=== PATIENT | male | born 1960 | race Caucasian/White ===

== ENCOUNTER 2021-07-06 06:29 | Emergency (ER) | payer MEDICAID, SELFPAY ==
[2021-07-06] VITALS (11 sets, daily range): BP systolic 104–128; BP diastolic 56–70; PULSE 70–80; RESP 12–19; TEMP 36.8; O2SAT 95–98; BMI 38.0
--- NOTE | ~2021-07-06 | XR_ITS ---
EXAMINATION: XR HIP, LEFT CLINICAL INFORMATION: Left hip pain COMPARISON: X-rays earlier the same day TECHNIQUE: Crosstable lateral view of the left hip FINDINGS: Crosstable lateral view of the left hip demonstrates posterior subluxation/dislocation of the left femoral component with respect to the acetabular cup. The right hip arthroplasty appears in anatomic alignment. XR/XR hip LT 1V IMPRESSION: Posterior subluxation/dislocation of the femoral head component of the left hip arthroplasty with respect to the left acetabular cup.
--- NOTE | ~2021-07-06 | CT_ITS ---
EXAMINATION: CT HEAD WITHOUT CONTRAST CLINICAL INFORMATION: Fall. COMPARISON: None TECHNIQUE: Contiguous axial imaging was performed from the skull base to vertex without intravenous administration of contrast. This CT examination was performed using dose optimization techniques as appropriate, variously including the following: *Automated exposure control *Adjustment of mA and/or kV according to patient size (this includes techniques or standardized protocols for targeted exams where dose is matched to indication/reason for exam; i.e. extremities or head) *Use of iterative reconstruction technique DLP: 771 mGy-cm FINDINGS: There is no evidence of acute intracranial hemorrhage or territorial infarction. No abnormal mass effect or midline shift is seen. Ricketts to white matter differentiation is well preserved. No extra-axial fluid collections are identified. The ventricles are normal in size. There is no abnormal attenuation within the brain parenchyma. The osseous structures and soft tissues are normal. Partial soft tissue ossification of the right mastoid air cells. Mastoid air cells, middle ears and visualized paranasal sinuses are otherwise clear. CT/CT head/brain wo con IMPRESSION: No acute findings. Partial soft tissue opacification of the right mastoid air cells.
--- NOTE | ~2021-07-06 | XR_ITS ---
EXAMINATION: XR HIP, LEFT CLINICAL INFORMATION: Status post reduction COMPARISON: Radiographs earlier the same day TECHNIQUE: Portable AP view of the left hip. XR/XR hip LT min 2V FINDINGS/IMPRESSION: The femoral head component of the left total hip arthroplasty is now centered within the left acetabular cup.
--- NOTE | ~2021-07-06 | XR_ITS ---
EXAMINATION: XR HIP, LEFT CLINICAL INFORMATION: Fall, evaluate for dislocation COMPARISON: None TECHNIQUE: AP view of the pelvis with AP and lateral views of the left hip. FINDINGS: Bilateral total hip arthroplasties are present. The right hip arthroplasty is normal in appearance with the femoral head centrally positioned within the acetabular cup. There is an abnormal position of the left femoral component with respect to the left acetabular cup suggesting subluxation if not dislocation. No true lateral view was obtained with the lateral view being only slightly oblique relative to the AP view of the left hip. There is evidence of prior posterior decompression of the lower lumbar spine with posterior fusion L4-S1 with posterolateral bone graft material. XR/XR hip LT min 2V IMPRESSION: Abnormal position of the head of the left femoral component of the left total hip arthroplasty suggesting at least subluxation if not dislocation. No true lateral view was obtained.
--- NOTE | 2021-07-06 06:38 | ED.FALL ---
HPI - Fall General Chief Complaint: Extremity Injury, Lower Stated Complaint: fall w/ left hip injury, hx of surgery to same hip Time Seen by Provider: 07/06/21 06:38 Source: patient and EMS Mode of arrival: EMS Limitations: no limitations History of Present Illness MD complaint: fall Onset (ago): minute(s) Fall from: out of bed (rolled trying to get his dog) Fall witnessed: no Place fall occurred: home Loss of consciousness: none Prolonged down time: no Symptoms prior to fall: none Context: tripped/slipped Location of injury: pelvis (left hip) Severity: moderate Quality: stabbing Associated symptoms (after fall): other (states he cannot move his left leg) Related Data Previous Rx's Medication Instructions Recorded oxycodone 10 mg tablet 10 mg PO Q4H PRN #10 tab 07/06/21 oxycodone 20 mg tablet,crush 20 mg PO BID PRN #6 tab 07/06/21 resistant,extended release 12 hr zolpidem 10 mg tablet (Ambien) 10 mg PO BEDTIME PRN #5 tab 07/06/21 Allergies Allergy/AdvReac Type Severity Reaction Status Date / Time acetaminophen [From Tylenol] Allergy Intermediate Rash Verified 07/06/21 06:43 morphine AdvReac Intermediate Hallucinati Verified 07/06/21 06:43 ons Review of Systems Review of Systems: Constitutional : No Fever, No Chills ENT/Mouth : No Ear Pain, No Hoarseness, No sore throat Eyes: No Eye Pain, No Swelling, No Redness, No Foreign Body Cardiovascular : No Chest Pain, No SOB Respiratory : No Cough, No Dyspnea Gastrointestinal : No Nausea, No Vomiting, No Diarrhea, No abdominal Pain Genitourinary : No Dysuria, No Hematuria Musculoskeletal : positive joint pain, No Myalgias, No Joint Swelling Skin : No Skin lacerations, No rash Neuro : No Weakness, No Numbness, No Loss of Consciousness, No Dizziness, No Headache Psych : No Anxiety/Panic, No Depression Heme/Lymph: no easy bruising, no Lymphadenopathy Endocrine : No Polyuria, No Polydipsia All other systems reviewed and are negative [facility] Past Medical History Attestation statement: The following information was validated with the patient. Medical History Asthma Diabetes FHx: bilateral hip replacements Hypertension Surgical History S/P quadruple vessel bypass Social History Social History (Updated 07/06/21 @ 06:45 by Geena Barnes DO) Alcohol intake: never Patient Tobacco Use Status: Former Tobacco user Use of substances other than those prescribed or required for medical reasons: No Advance Directives: Yes Advance Directives Information Provided: Yes Advance Directives on File: No Physical Exam Vital Signs: Vital Signs: Last Vital Signs Temp 98.2 F 07/06/21 06:36 Pulse 73 07/06/21 16:08 Resp 16 07/06/21 16:08 BP 106/56 L 07/06/21 16:08 Pulse Ox 98 07/06/21 16:08 Oxygen Flow Rate 3 07/06/21 09:08 Body Mass Index 38.0 Appearance: Alert. Oriented X3. No acute distress. Eyes: Pupils equal, round and reactive to light. ENT: Pharynx normal. Neck: Normal inspection. Neck supple. CVS: Normal heart rate and rhythm. Pulses normal. Respiratory: No respiratory distress. Breath sounds normal. Abdomen: Soft and non-tender. Skin: Skin warm and dry. Normal skin color. Normal skin turgor. Extremities: No lower extremity edema. L hip ttp hip is held in flexed position - distal NV intact Neuro: Oriented X 3. No motor deficit. No sensory deficit. Course Course Course Narrative: patient with dislocation seen on AP view - will need reduction, plan for propofol spouse aware and has signed consent forms. going to [facility], orthopedics just recommends follow up with his surgeon and posterior dislocation precautions - a form was printed out for SNF Procedures Orthopedic Joint Reduction Joint #1: Time Out Performed: Yes Side: left Joint Reduction Location: hip Analgesia: procedural sedation Technique used: other (knee flexion and traction) Post-reduction neuro exam: intact Post-reduction vascular: intact Post Reduction X-Ray Obtained: Yes Post Reduction X-Ray Results: reduced Splint Applied: Yes Patient Tolerated Procedure: well and no complications Orthopedic Splinting/Casting Injury #1: Side: left Lower Extremity Injury Location: lower leg Lower Extremity Immobilizer: knee immobilizer Procedural Sedation Indication: fracture/dislocation reduction ASA Class: III Time of Last PO Intake: 20:00 Preparation: monitor car operator applied, pulse oximeter, capnometry used, supplemental O2 applied, suction/airway equipment at bedside and IV secured IV Propofol dose (mg): 100 Patient Tolerated Procedure: well Complications: hypotension (slight given IVF - ) Interventions: oxygen applied MDM - Fall MDM Narrative Medical decision making narrative: 60 yo male with multiple medical problems including DM, asthma, chronic pain, bilateral THR, on coumadin for ?afib comes in with slip out of bed did hit head but no LOC, L hip pain - distal NV intact will need labs CT Head for ICH, L hip xrays, dilaudid for pain, given EMS prehospital 100mcg fentanyl Lab Data Result diagrams: 07/06/21 06:49 07/06/21 06:48 Labs: Lab Results 07/06/21 07/06/21 07/06/21 Range/Units 06:48 06:48 06:48 WBC (4.8-10.8) X10*3/uL RBC (4.60-5.80) X10*6/uL Hgb (14.0-18.0) g/dl Hct (42-52) % MCV (80-98) fL MCH (27.0-33.0) pg MCHC (31.0-36.0) g/dl RDW (11.0-16.0) % Plt Count (160-400) X10*3/uL MPV (9.4-12.4) fL Immature Gran % (Auto) (0.0-0.4) % Neut % (Auto) (45-73) % Lymph % (Auto) (20-40) % Burnet % (Auto) (2-11) % Eos % (Auto) (0-4) % Baso % (Auto) (0-2) % Lymph # (Auto) (1.2-4.9) X10*3/uL Burnet # (Auto) (0.1-1.2) X10*3/uL Eos # (Auto) (0.0-0.4) X10*3/uL Baso # (Auto) (0.0-0.2) X10*3/uL Abs Immat Gran (auto) (0.00-0.03) X10*3/uL Absolute Neuts (auto) (2.0-8.3) X10*3/uL Absolute Nucleated RBC (0.0-0.012) X10*3/uL Nucleated RBC % (auto) (0.0-0.2) /100WBC PT 22.5 H (9.9-13.0) SEC INR 2.0 H (0.9-1.1) APTT 50.4 H (24.1-38.0) SEC Sodium 136 (135-145) mmol/L Potassium 4.1 (3.3-5.1) mmol/L Chloride 107 (96-108) mmol/L Carbon Dioxide 22 (22-29) mmol/L Anion Gap 11 L (12-20) BUN 9 (9-16) mg/dL Creatinine 0.87 (0.5-1.4) mg/dL Estim Creat Clear Calc 110.4 Estimated GFR > 60 Random Glucose 326 H (60-115) mg/dL Calcium 9.5 (8.4-10.2) mg/dL Total Bilirubin 0.5 (0.0-1.0) mg/dL Direct Bilirubin < 0.2 (0.0-0.5) mg/dL AST 12 (5-37) U/L ALT 16 (0-40) U/L Alkaline Phosphatase 100 (39-117) U/L Total Protein 6.2 L (6.5-8.0) g/dL Albumin 3.9 (3.5-5.0) g/dL COVID-19 ([facility]) Negative (Negative) COVID-19 Clin Com See Note Blood Type Antibody Screen 07/06/21 07/06/21 Range/Units 06:49 06:53 WBC 8.5 (4.8-10.8) X10*3/uL RBC 4.44 L (4.60-5.80) X10*6/uL Hgb 13.0 L (14.0-18.0) g/dl Hct 37.7 L (42-52) % MCV 84.9 (80-98) fL MCH 29.3 (27.0-33.0) pg MCHC 34.5 (31.0-36.0) g/dl RDW 13.0 (11.0-16.0) % Plt Count 237 (160-400) X10*3/uL MPV 10.1 (9.4-12.4) fL Immature Gran % (Auto) 0.4 (0.0-0.4) % Neut % (Auto) 51.0 (45-73) % Lymph % (Auto) 37.4 (20-40) % Burnet % (Auto) 10.0 (2-11) % Eos % (Auto) 0.7 (0-4) % Baso % (Auto) 0.5 (0-2) % Lymph # (Auto) 3.2 (1.2-4.9) X10*3/uL Burnet # (Auto) 0.9 (0.1-1.2) X10*3/uL Eos # (Auto) 0.1 (0.0-0.4) X10*3/uL Baso # (Auto) 0.0 (0.0-0.2) X10*3/uL Abs Immat Gran (auto) 0.03 (0.00-0.03) X10*3/uL Absolute Neuts (auto) 4.3 (2.0-8.3) X10*3/uL Absolute Nucleated RBC 0.000 (0.0-0.012) X10*3/uL Nucleated RBC % (auto) 0.0 (0.0-0.2) /100WBC PT (9.9-13.0) SEC INR (0.9-1.1) APTT (24.1-38.0) SEC Sodium (135-145) mmol/L Potassium (3.3-5.1) mmol/L Chloride (96-108) mmol/L Carbon Dioxide (22-29) mmol/L Anion Gap (12-20) BUN (9-16) mg/dL Creatinine (0.5-1.4) mg/dL Estim Creat Clear Calc Estimated GFR Random Glucose (60-115) mg/dL Calcium (8.4-10.2) mg/dL Total Bilirubin (0.0-1.0) mg/dL Direct Bilirubin (0.0-0.5) mg/dL AST (5-37) U/L ALT (0-40) U/L Alkaline Phosphatase (39-117) U/L Total Protein (6.5-8.0) g/dL Albumin (3.5-5.0) g/dL COVID-19 ([facility]) (Negative) COVID-19 Clin Com Blood Type O Positive Antibody Screen NEGATIVE Discharge Plan Discharge Clinical Impression: Dislocation, hip, posterior Qualifiers: Encounter type: initial encounter Laterality: left Qualified Code(s): S73.015A - Posterior dislocation of left hip, initial encounter Patient Disposition: er [facility] Instructions: Crutch Instructions (ED), Hip Dislocation (ED), Hip Abduction Pillow (DC) Additional Instructions: return to ED for any worsening symptoms or concerns FORM WAS SENT OUT TO GIVE INSTRUCTIONS FOR POSTERIOR DISLOCATION CARE IMMOBILIZER FOR THE NEXT WEEK PLEASE CALL HIS ORTHOPEDIC SURGEON don't bend your hip past 90 degress, don't cross legs, don't twist hip inwards Don't sit on low chairs, beds, or toilets. You may want to use a raised toilet seat for a while. Sit in chairs with arms. Prescriptions: New zolpidem [Ambien] 10 mg tablet 10 mg PO BEDTIME PRN (Reason: sleep) Qty: 5 RF: 0 oxycodone 20 mg tablet,oral only,ext.rel.12 hr 20 mg PO BID PRN (Reason: pain) Qty: 6 RF: 0 oxycodone 10 mg tablet 10 mg PO Q4H PRN (Reason: pain) Qty: 10 RF: 0 Referrals: [facility] [Outside] - 2 days
[2021-07-06] MEDS: HYDROmorphone HCl 1 MG/ML SYRINGE IVPUSH ×2 (06:50→08:18)
[2021-07-06 07:02] LABS: MANUAL DIFF FLAG NO
[2021-07-06 07:05] LABS: Basophils Percent Auto 0.5 % (0-2); Eosinophils Absolute Auto 0.1 X10*3/uL (0.0-0.4); Eosinophils Percent Auto 0.7 % (0-4); Hematocrit 37.7 % (42-52); Imm Gran Abs Auto 0.03 X10*3/uL (0.00-0.03); Imm Gran Pct Auto 0.4 % (0.0-0.4); Lymphocytes Absolute Auto 3.2 X10*3/uL (1.2-4.9); Lymphocytes Percent Auto 37.4 % (20-40); Mean Corpuscular HGB Conc 34.5 g/dl (31.0-36.0); Mean Corpuscular Hemoglobin 29.3 pg (27.0-33.0); Mean Corpuscular Volume 84.9 fL (80-98); Mean Platelet Volume 10.1 fL (9.4-12.4); Monocytes Absolute Auto 0.9 X10*3/uL (0.1-1.2); Neutrophils Absolute Auto 4.3 X10*3/uL (2.0-8.3); Platelet Count 237 X10*3/uL (160-400); Red Blood Count 4.44 X10*6/uL (4.60-5.80); White Blood Count 8.5 X10*3/uL (4.8-10.8)
[2021-07-06 07:15] LABS: Prothrombin Time 22.5 SEC (9.9-13.0)
[2021-07-06 07:17] LABS: Partial Thromboplastin Time 50.4 SEC (24.1-38.0)
[2021-07-06 07:23] LABS: COVID-19 Test Negative (Negative); IDNOW Serial# 9DD0AD1C
[2021-07-06 07:24] LABS: Alanine Aminotransferase 16 U/L (0-40); Albumin Level 3.9 g/dL (3.5-5.0); Alkaline Phosphatase 100 U/L (39-117); Anion Gap 11 (12-20); Aspartate Amino Transferase 12 U/L (5-37); Bilirubin Direct < 0.2 mg/dL (0.0-0.5); Bilirubin Total 0.5 mg/dL (0.0-1.0); Blood Urea Nitrogen 9 mg/dL (9-16); Calcium 9.5 mg/dL (8.4-10.2); Carbon Dioxide 22 mmol/L (22-29); Chloride 107 mmol/L (96-108); Creatinine Clr Calc Pharmacy 110.4; Estimated Glomerular Filt Rate > 60; Glucose Random 326 mg/dL (60-115); Potassium 4.1 mmol/L (3.3-5.1); Sodium 136 mmol/L (135-145); Total Protein 6.2 g/dL (6.5-8.0)
[2021-07-06] MEDS: ondansetron HCL 4 MG/2 ML VIAL IVPUSH (08:14)
[2021-07-06] MEDS: propofoL 200 MG/20 ML VIAL 100 MG IVPUSH (09:15)
--- NOTE | 2021-07-06 09:20 | PC.NURSE ---
With respiratory at the bedside and pt on cardiac and EtCO2 monitoring, pt sedated with a total of 100mg propofol for a left hip reduction. Reduction completed by Dr. Barnes. Pt has a knee immobilizer on and will go to x-ray for repeat imaging.
--- NOTE | 2021-07-06 09:43 | PC.NURSE ---
Pt remains drowsy, but is arousable. MD noted pt to become hypotensive to 88/50 and hung a liter of NS which is infusing now. BP noted to improve
[2021-07-06] MEDS: oxyCODONE HCl ER 10 MG TAB.ER.12H 20 MG PO (10:52)
--- NOTE | 2021-07-06 12:15 | PC.NURSE ---
PT is at the bedside to assist with ambulation
[2021-07-06] MEDS: oxyCODONE HCl Immed Release 15 MG TABLET PO (13:20)
--- NOTE | 2021-07-06 13:53 | MHC.CM.ED ---
Received case management consult from Dr Barnes. Patient came to the ER due to a hip dislocation. Dr Barnes was able to reduce patient's hip. Physical therapy eval completed. Short term rehab is recommended. Met with patient and , Holli in regards to discharge planning. Patient lives with Holli, ambulates with a cane and had no services prior to coming to the hospital. PCP verified. Patient believes he has a HCP at [facility]. Per [facility] medical records, there is no HCP on file there. Patient received Pfizer vaccines on 01/12 and 02/02. Patient has been to [facility] in the past. Patient is not interested in returning there. List of facilities provided from [facility]. Facilities choices: 1)[facility] [place] 2)[facility]. Referrals made via [employer]. Continue to monitor for d/c needs.
--- NOTE | 2021-07-06 14:27 | MHC.CM.ED ---
[facility] [place] and [facility] are not able to offer a bed. Patient's , Holli made aware via telephone at [phone]. Holli requesting referral be broadcasted. Referral broadcasted in [employer]scripts. Continue to monitor for d/c needs.
[2021-07-06] MEDS: oxyCODONE HCl Immed Release 15 MG TABLET 20 MG PO (17:36)
--- NOTE | 2021-07-06 20:42 | PC.NURSE ---
SPOKE W/RICHARD RN @ [facility] [address]. CALLED REQUESTING PTS MED LIST HE WAS ATTEMPTING TO DO MED REC W/PT. I EXPLAINED TO RICHARD I WAS UNABLE TPO PRINT THIS D/T PATIENT ALREADY BEING D/C FROM THE SYSTEM BUT I WOULD GLADLY GIVE THE MED LIST OVER THE PHONE. RICHARD HERNANDEZ STATED THIS WAS UNACCEPTABLE HE NEEDED SOMETHING FAXED. THIS RN CALLED PTS HOME PHARMACY ([facility]) AND SPOKE TO ESL INSTRUCTOR ROSANGELA WHO STATED THE PHARMACIST GB WOULD GLADLY DO MED REC W/HIM OVER THE PHONE. I THEN CALLED BACK AND SPOKE W/RICHARD HERNANDEZ, STATING THE OPTIONS, AND READY TO PROVIDE PHONE NUMBERS, HE THEN STATED IF I DON'T GET A MED LIST FAXED TO ME I AM SENDING THIS PATIENT BACK TO THE ER I EXPLAINED THIS WAS A MISUTLIZATION OF EMS & ER SERVICES WE ARE WILLING AND READY TO PROVIDE THE FACILITY WITH THE VERBAL MED LIST- WHICH COULD BE VERIFIED W/PT WHO WAS COGNITIVELY INTACT, AND ALSO HAD BUCKET OF MEDICATION ON HIS LAP WHEN D/C TO [facility]. I SAID IF THIS WASNT ACCEPTABLE THEN I WOULD LIKE TO SPEAK TO THE DON TO DISCUSS HOW WE COULD RESOLVE THIS SITUATION TO PROVIDE THE PATIENT W/PROPER CARE. RICHARD HERNANDEZ THEN STATED I AM THE FUCKING DON AND ABRUPTLY ENDED THE CALL IN WHAT SOUNDED TO BE SLAMMING THE PHONE DOWN. KRISTI NURSING TRIPLE VALVE TESTER MADE AWARE, AND DISCUSSED Alma Rosa/EDDIE MAC IF THERE WAS A BETTER WAY WE COULD HAVE BEEN MORE HELPFUL TO THE PATIENT AND THE FACILITY. VINCENT/DAVID
== END 2021-07-06 17:58 | disposition skilled nursing facility (03) ==
PROVIDERS: Emergency Provider Emergency Medicine; PCP Internal Medicine
DX: S73.015A Posterior dislocation of left hip, initial encounter (principal); S73.005A Unspecified dislocation of left hip, initial encounter; G89.29 Other chronic pain; M25.552 Pain in left hip; W01.0XXA Fall on same level from slipping, tripping and stumbling without subsequent striking against object, initial encounter; E11.9 Type 2 diabetes mellitus without complications; Y93.9 Activity, unspecified; Y92.9 Unspecified place or not applicable; Y99.9 Unspecified external cause status; Z20.822 Contact with and (suspected) exposure to COVID-19; Z79.01 Long term (current) use of anticoagulants; Z79.899 Other long term (current) drug therapy; Z87.891 Personal history of nicotine dependence
CPT/HCPCS: 27252; 29505; 36415; 70450; 73501; 73502; 80048; 80076; 85025; 85610; 85730; 86850; 86900; 86901; 87635; 96374; 96375; 96376; 97162; 99152; 99285; J1170; J2405

== ENCOUNTER 2021-09-01 17:00 | Emergency (ER) | payer MEDICAID, SELFPAY ==
[2021-09-01 17:07] VITALS: BP 153/45; PULSE 100; RESP 19; TEMP 37.1; O2SAT 100; BMI 41.8
--- NOTE | 2021-09-01 18:31 | ED.SKABFB ---
HPI - Skin/Abscess/Foreign Bdy General Chief complaint: Wound/Laceration Stated complaint: ?Infected Blister on leg Time Seen by Provider: 09/01/21 18:30 Source: patient Mode of arrival: ambulatory Limitations: no limitations History of Present Illness HPI narrative: Patient diabetic noticed small bowel in the right thigh which got worse in last 3 days with surroundings erythema no fever no chills Related Data Previous Rx's Medication Instructions Recorded oxycodone 10 mg tablet 10 mg PO Q4H PRN #10 tab 07/06/21 oxycodone 20 mg tablet,crush 20 mg PO BID PRN #6 tab 07/06/21 resistant,extended release 12 hr zolpidem 10 mg tablet (Ambien) 10 mg PO BEDTIME PRN #5 tab 07/06/21 cephalexin 500 mg capsule 500 mg PO QID 10 Days #40 cap 09/01/21 doxycycline hyclate 100 mg tablet 100 mg PO BID #20 tab 09/01/21 Allergies Allergy/AdvReac Type Severity Reaction Status Date / Time acetaminophen [From Tylenol] Allergy Intermediate Rash Verified 07/06/21 06:43 morphine AdvReac Intermediate Hallucinati Verified 07/06/21 06:43 ons Review of Systems Review of Systems: Yes all other systems are reviewed and are negative COUNT INCLUDES THE [facility] Past Medical History Medical History Asthma Diabetes FHx: bilateral hip replacements Hypertension Surgical History S/P quadruple vessel bypass Social History Social History Alcohol intake: never Patient Tobacco Use Status: Former Tobacco user Advance Directives: No Advance Directives Information Provided: No Physical Exam Vital Signs: Vital Signs: Last Vital Signs Temp 98.8 F 09/01/21 17:07 Pulse 100 09/01/21 17:07 Resp 19 09/01/21 17:07 BP 153/45 H 09/01/21 17:07 Pulse Ox 100 09/01/21 17:07 Body Mass Index 41.8 Appearance: Alert. Oriented X3. No acute distress. ENT: Pharynx normal. Oral Mucosa moist Neck: Normal inspection. Neck supple. CVS: Normal heart rate and rhythm. Pulses normal. Respiratory: No respiratory distress. Equal air entry bilateral, no wheezing/rales/rhonchi Abdomen: Soft and nontender. Bowel sounds are present, no mass palpable, Skin: Skin warm and dry. Normal skin color. Normal skin turgor. Extremities: No lower extremity edema. No calf tenderness Neuro: Oriented X 3. No motor deficit. Extrem: Upper/lower leg/hip images: 1. Cellulitis with small abscess in the middle MDM - Skin/Abscess/Foreign Bdy MDM Narrative Medical decision making narrative: Patient with small abscess right thigh with history of same at same location with surrounding cellulitis with slightly elevated WBC count normal lactic acid level afebrile I and D was done and a small amount serosanguineous fluid removed no pus drained abscess was packed with iodoform gauze patient was given prophylactically 1 g of vancomycin will discharge patient home on doxycycline and Keflex Lab Data Attestation: I reviewed the patient's lab results. Result diagrams: 09/01/21 19:31 09/01/21 19:31 Labs: Lab Results 09/01/21 09/01/21 09/01/21 Range/Units 19:31 19:31 19:31 WBC 11.6 H (4.8-10.8) X10*3/uL RBC 4.26 L (4.60-5.80) X10*6/uL Hgb 12.6 L (14.0-18.0) g/dl Hct 37.1 L (42.0-52.0) % MCV 87.1 (80.0-98.0) fL MCH 29.6 (27.0-33.0) pg MCHC 34.0 (31.0-36.0) g/dl RDW 14.0 (11.0-16.0) % Plt Count 245 (160-400) X10*3/uL MPV 9.7 (9.4-12.4) fL Immature Gran % (Auto) 0.4 (0.0-0.4) % Neut % (Auto) 67.8 (45-73) % Lymph % (Auto) 20.9 (20-40) % Wright % (Auto) 10.0 (2-11) % Eos % (Auto) 0.6 (0-4) % Baso % (Auto) 0.3 (0-2) % Lymph # (Auto) 2.4 (1.2-4.9) X10*3/uL Wright # (Auto) 1.2 (0.1-1.2) X10*3/uL Eos # (Auto) 0.1 (0.0-0.4) X10*3/uL Baso # (Auto) 0.0 (0.0-0.2) X10*3/uL Abs Immat Gran (auto) 0.05 H (0.00-0.03) X10*3/uL Absolute Neuts (auto) 7.9 (2.0-8.3) x10*3/uL Absolute Nucleated RBC 0.000 (0.0-0.012) X10*3/uL Nucleated RBC % (auto) 0.0 (0.0-0.2) /100WBC Sodium 134 L (135-145) mmol/L Potassium 4.0 (3.3-5.1) mmol/L Chloride 102 (96-108) mmol/L Carbon Dioxide 24 (22-29) mmol/L Anion Gap 12 (12-20) BUN 8 L (9-16) mg/dL Creatinine 0.79 (0.5-1.4) mg/dL Estim Creat Clear Calc 127.8 Estimated GFR > 60 Random Glucose 276 H (60-115) mg/dL Lactic Acid 1.3 (0.5-2.0) mmol/L Calcium 8.0 L D (8.4-10.2) mg/dL Procedures Abscess I/D Site: lower extremity Side (if applicable): right Local Anesthetic: lidocaine 2% Amount of anesthesia used (mL): 5 Technique: incised with blade Amount of fluid expressed (mL): 1 Sent for culture/gram staining?: No Irrigation: No Packing used?: iodoform Discharge Plan Discharge Clinical Impression: Abscess Cellulitis Qualifiers: Site of cellulitis: extremity Site of cellulitis of extremity: lower extremity Laterality: right Qualified Code(s): L03.115 - Cellulitis of right lower limb Patient Disposition: Home, Self-Care Instructions: Cellulitis (ED), Abscess Incision and Drainage (DC) Additional Instructions: Local care as advised Packing removal in 2 days Take antibiotic as prescribed Report to the ER if increased redness or swelling or fever Remove packing in 2 days Prescriptions: New cephalexin 500 mg capsule 500 mg PO QID 10 Days Qty: 40 RF: 0 doxycycline hyclate 100 mg tablet 100 mg PO BID Qty: 20 RF: 0 No Action zolpidem [Ambien] 10 mg tablet 10 mg PO BEDTIME PRN (Reason: sleep) Qty: 5 RF: 0 oxycodone 20 mg tablet,oral only,ext.rel.12 hr 20 mg PO BID PRN (Reason: pain) Qty: 6 RF: 0 oxycodone 10 mg tablet 10 mg PO Q4H PRN (Reason: pain) Qty: 10 RF: 0 Interventions: ED Discharge Assessment Last Done: 09/01/21 20:49
[2021-09-01] MEDS: LORazepam 2 MG/ML VIAL 1 MG IVPUSH (19:27)
[2021-09-01] MEDS: Lidocaine HCl 2 % MPF 5 ML VIAL INFILTRATI (19:28)
[2021-09-01] MEDS: Ketorolac Tromethamine 15 MG/ML VIAL 30 MG IVPUSH (19:28)
[2021-09-01] MEDS: vancomycin HCL 1,500 MG in 0.9 % Sodium Chloride 500 ML 333.33 MG IV (19:34)
[2021-09-01 19:36] LABS: MANUAL DIFF FLAG NO
[2021-09-01 19:38] LABS: Basophils Percent Auto 0.3 % (0-2); Eosinophils Absolute Auto 0.1 X10*3/uL (0.0-0.4); Eosinophils Percent Auto 0.6 % (0-4); Hematocrit 37.1 % (42.0-52.0); Hemoglobin 12.6 g/dl (14.0-18.0); Imm Gran Abs Auto 0.05 X10*3/uL (0.00-0.03); Imm Gran Pct Auto 0.4 % (0.0-0.4); Lymphocytes Absolute Auto 2.4 X10*3/uL (1.2-4.9); Lymphocytes Percent Auto 20.9 % (20-40); Mean Corpuscular Hemoglobin 29.6 pg (27.0-33.0); Mean Corpuscular Volume 87.1 fL (80.0-98.0); Mean Platelet Volume 9.7 fL (9.4-12.4); Monocytes Absolute Auto 1.2 X10*3/uL (0.1-1.2); Neutrophils Absolute Auto 7.9 x10*3/uL (2.0-8.3); Neutrophils Percent Auto 67.8 % (45-73); Platelet Count 245 X10*3/uL (160-400); Red Blood Count 4.26 X10*6/uL (4.60-5.80); White Blood Count 11.6 X10*3/uL (4.8-10.8)
[2021-09-01 19:56] LABS: Lactic Acid 1.3 mmol/L (0.5-2.0)
[2021-09-01 20:08] LABS: Anion Gap 12 (12-20); Blood Urea Nitrogen 8 mg/dL (9-16); Carbon Dioxide 24 mmol/L (22-29); Chloride 102 mmol/L (96-108); Creatinine Clr Calc Pharmacy 127.8; Estimated Glomerular Filt Rate > 60; Glucose Random 276 mg/dL (60-115); Sodium 134 mmol/L (135-145)
== END 2021-09-01 20:52 | disposition home or self-care (01) ==
PROVIDERS: Emergency Provider Internal Medicine; PCP Internal Medicine
DX: L03.115 Cellulitis of right lower limb (principal); Z79.899 Other long term (current) drug therapy
CPT/HCPCS: 10060; 36415; 80048; 83605; 85025; 87040; 96365; 96375; 99283; 99284; J1885; J2060; J3370

== ENCOUNTER 2021-11-14 02:28 | Emergency (ER) | payer MEDICAID, SELFPAY ==
[2021-11-14] VITALS (16 sets, daily range): BP systolic 100–211; BP diastolic 48–115; PULSE 16–136; RESP 12–23; TEMP 36.5–36.6; O2SAT 94–100; BMI 41.8
--- NOTE | ~2021-11-14 | XR_ITS ---
EXAMINATION: XR HIP, LEFT CLINICAL INFORMATION: Dislocation. Post reduction. COMPARISON: Previous x-ray from earlier the same day TECHNIQUE: AP and crosstable lateral views of the left hip. FINDINGS: There is normal alignment of the left hip replacement post reduction. No fracture is seen. Soft tissues are unremarkable. XR/XR hip LT min 2V IMPRESSION: Normal alignment of the left hip replacement. No fracture.
--- NOTE | ~2021-11-14 | XR_ITS ---
EXAMINATION: XR HIP, LEFT CLINICAL INFORMATION: Hip pain COMPARISON: 07/06/2021 TECHNIQUE: Two views of the left hip. Frontal view of the pelvis. FINDINGS: There is a total left hip arthroplasty. Posterior dislocation of the femoral head component from the acetabular rim. No periprosthetic lucency or fracture. Right total hip arthroplasty noted in typical positioning and alignment. Posterior spinal fusion hardware noted at the lower lumbar spine. The pelvic rim is intact. Normal bowel gas pattern. XR/XR hip LT w [id number] IMPRESSION: Total left hip arthroplasty with dislocation of the femoral head component posteriorly. Right total hip arthroplasty without evidence of failure.
[2021-11-14 02:40] LABS: Glucose, Whole Blood 360 mg/dL (60-115)
--- NOTE | 2021-11-14 03:24 | ED.LOWEXIN ---
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 Was trying to bend over in the shower, subsequently had excruciating pain to the left hip. Patient had a total hip replacement done in [place] approximately 20 years ago. Patient from home. Pain worsen with movement. Pain is 10/10. Patient denies any head injury. Related Data Previous Rx's Medication Instructions Recorded oxycodone 10 mg tablet 10 mg PO Q4H PRN #10 tab 07/06/21 oxycodone 20 mg tablet,crush 20 mg PO BID PRN #6 tab 07/06/21 resistant,extended release 12 hr zolpidem 10 mg tablet (Ambien) 10 mg PO BEDTIME PRN #5 tab 07/06/21 cephalexin 500 mg capsule 500 mg PO QID 10 Days #40 cap 09/01/21 doxycycline hyclate 100 mg tablet 100 mg PO BID #20 tab 09/01/21 Allergies Allergy/AdvReac Type Severity Reaction Status Date / Time acetaminophen [From Tylenol] Allergy Intermediate Rash Verified 07/06/21 06:43 morphine AdvReac Intermediate Hallucinati Verified 07/06/21 06:43 ons Review of Systems Review of Systems: Positive history of hip replacement Positive history of hip dislocation Positive pain to the hip No bowel urinary incontinence No focal weakness Yes all other systems are reviewed and are negative [facility] Past Medical History Attestation statement: The following information was validated with the patient. Medical History Asthma Diabetes FHx: bilateral hip replacements Hypertension Surgical History S/P quadruple vessel bypass Social History Social History Alcohol intake: never Patient Tobacco Use Status: Former Tobacco user Advance Directives: No Physical Exam Vital Signs: Vital Signs: Last Vital Signs Temp 97.9 F 11/14/21 02:33 Pulse 96 11/14/21 06:30 Resp 20 11/14/21 06:30 BP 165/87 H 11/14/21 06:30 Pulse Ox 98 11/14/21 06:30 BMI result Body Mass Index 41.8 Appearance: Alert. Oriented X3. No acute distress. Eyes: Pupils equal, round and reactive to light. ENT: Pharynx normal. Neck: Normal inspection. Neck supple. No lymph nodes noted. No crepitus CVS: Normal heart rate and rhythm. Pulses normal. Normal S1 and S2 Respiratory: No respiratory distress. Breath sounds normal. No Wheezing. No rales Abdomen: Soft and nontender. No rigidity. No distention. good BS x4 Skin: Skin warm and dry. Normal skin color. Normal skin turgor. Extremities: Left hip flex. Sensation intact. Pulses 2+ at dorsalis pedis. Capillary refill less than 2 seconds. Neuro: Oriented X 3. No motor deficit. No sensory deficit. Moving all extermities. No slurred speech MDM - Extremity Injury (Lower) MDM Narrative Medical decision making narrative: X-ray showed a left hip dislocation. Will give ketamine for conscious sedation and attempt to reduce the dislocation. In stable condition. Attempted reduction using ketamine. Good sedation was achieved. However it was unsuccessful to reduce the hip. Finding discussed with orthopedics. Willing to take patient to the OR for reduction. Will give additional pain medication in the ED in the meantime. Patient is currently in stable condition. Baseline labs ordered patient is on Coumadin INR is 2. Patient denies any head injury. Lab Data Result diagrams: 11/14/21 04:32 11/14/21 04:32 Labs: Lab Results 11/14/21 11/14/21 11/14/21 Range/Units 02:34 04:32 04:32 WBC 14.1 H (4.8-10.8) X10*3/uL RBC 4.83 (4.60-5.80) X10*6/uL Hgb 14.0 (14.0-18.0) g/dl Hct 41.5 L (42.0-52.0) % MCV 85.9 (80.0-98.0) fL MCH 29.0 (27.0-33.0) pg MCHC 33.7 (31.0-36.0) g/dl RDW 12.8 (11.0-16.0) % Plt Count 278 (160-400) X10*3/uL MPV 9.2 L (9.4-12.4) fL Immature Gran % (Auto) 0.9 H (0.0-0.4) % Neut % (Auto) 69.8 (45-73) % Lymph % (Auto) 21.9 (20-40) % [place] % (Auto) 6.1 (2-11) % Eos % (Auto) 0.8 (0-4) % Baso % (Auto) 0.5 (0-2) % Lymph # (Auto) 3.1 (1.2-4.9) X10*3/uL [place] # (Auto) 0.9 (0.1-1.2) X10*3/uL Eos # (Auto) 0.1 (0.0-0.4) X10*3/uL Baso # (Auto) 0.1 (0.0-0.2) X10*3/uL Abs Immat Gran (auto) 0.13 H (0.00-0.03) X10*3/uL Absolute Neuts (auto) 9.8 H (2.0-8.3) x10*3/uL Absolute Nucleated RBC 0.000 (0.0-0.012) X10*3/uL Nucleated RBC % (auto) 0.0 (0.0-0.2) /100WBC PT 23.8 H (9.9-13.0) SEC INR 2.1 H (0.9-1.1) Sodium (135-145) mmol/L Potassium (3.3-5.1) mmol/L Chloride (96-108) mmol/L Carbon Dioxide (22-29) mmol/L Anion Gap (12-20) BUN (9-16) mg/dL Creatinine (0.5-1.4) mg/dL Estim Creat Clear Calc Estimated GFR POC Glucose 360 H* (60-115) mg/dL Random Glucose (60-115) mg/dL Calcium (8.4-10.2) mg/dL 11/14/21 Range/Units 04:32 WBC (4.8-10.8) X10*3/uL RBC (4.60-5.80) X10*6/uL Hgb (14.0-18.0) g/dl Hct (42.0-52.0) % MCV (80.0-98.0) fL MCH (27.0-33.0) pg MCHC (31.0-36.0) g/dl RDW (11.0-16.0) % Plt Count (160-400) X10*3/uL MPV (9.4-12.4) fL Immature Gran % (Auto) (0.0-0.4) % Neut % (Auto) (45-73) % Lymph % (Auto) (20-40) % [place] % (Auto) (2-11) % Eos % (Auto) (0-4) % Baso % (Auto) (0-2) % Lymph # (Auto) (1.2-4.9) X10*3/uL [place] # (Auto) (0.1-1.2) X10*3/uL Eos # (Auto) (0.0-0.4) X10*3/uL Baso # (Auto) (0.0-0.2) X10*3/uL Abs Immat Gran (auto) (0.00-0.03) X10*3/uL Absolute Neuts (auto) (2.0-8.3) x10*3/uL Absolute Nucleated RBC (0.0-0.012) X10*3/uL Nucleated RBC % (auto) (0.0-0.2) /100WBC PT (9.9-13.0) SEC INR (0.9-1.1) Sodium 135 (135-145) mmol/L Potassium 4.4 (3.3-5.1) mmol/L Chloride 101 (96-108) mmol/L Carbon Dioxide 23 (22-29) mmol/L Anion Gap 15 (12-20) BUN 11 (9-16) mg/dL Creatinine 0.91 (0.5-1.4) mg/dL Estim Creat Clear Calc 111.0 Estimated GFR > 60 POC Glucose (60-115) mg/dL Random Glucose 310 H (60-115) mg/dL Calcium 9.4 D (8.4-10.2) mg/dL Discharge Plan Discharge Clinical Impression: Dislocation, hip Patient Disposition: Admitted As Inpatient
[2021-11-14] MEDS: Ketamine HCl 500 MG/5 ML VIAL 498.952 MG IM (03:48)
--- NOTE | 2021-11-14 03:54 | PC.NURSE ---
IM ketamine administered in presence of Dr Odonnell. Dr Odonnell at bedside awaiting pain relief effect from ketamine prior to attempting reduction at bedside. Pt on bedside hospital monitor, marked HTN, otherwise VSS on RA. Pt end tidal 31 at this time.
--- NOTE | 2021-11-14 04:13 | PC.NURSE ---
Ketamine administered in both deltoids. Pt placed on 2L NC when O2 ketamine took effect. Pt's sat dropped to 91%, improved to 95-96% on 2L NC. Dr Odonnell unsuccessful with reduction. During attempt, pt's BP elevated to 245/111, Odonnell aware, states ok. At that time, all other VS stable. At this time, pt's VS with marked improvement, BP 207/111
[2021-11-14 04:36] LABS: MANUAL DIFF FLAG NO
[2021-11-14 04:37] LABS: Basophils Absolute Auto 0.1 X10*3/uL (0.0-0.2); Basophils Percent Auto 0.5 % (0-2); Eosinophils Absolute Auto 0.1 X10*3/uL (0.0-0.4); Eosinophils Percent Auto 0.8 % (0-4); Hematocrit 41.5 % (42.0-52.0); Imm Gran Abs Auto 0.13 X10*3/uL (0.00-0.03); Imm Gran Pct Auto 0.9 % (0.0-0.4); Lymphocytes Absolute Auto 3.1 X10*3/uL (1.2-4.9); Lymphocytes Percent Auto 21.9 % (20-40); Mean Corpuscular HGB Conc 33.7 g/dl (31.0-36.0); Mean Corpuscular Volume 85.9 fL (80.0-98.0); Mean Platelet Volume 9.2 fL (9.4-12.4); Monocytes Absolute Auto 0.9 X10*3/uL (0.1-1.2); Monocytes Percent Auto 6.1 % (2-11); Neutrophils Absolute Auto 9.8 x10*3/uL (2.0-8.3); Neutrophils Percent Auto 69.8 % (45-73); Platelet Count 278 X10*3/uL (160-400); Red Blood Count 4.83 X10*6/uL (4.60-5.80); Red Cell Distribution Width 12.8 % (11.0-16.0); White Blood Count 14.1 X10*3/uL (4.8-10.8)
[2021-11-14 04:52] LABS: INTERNATIONAL NORM RATIO 2.1 (0.9-1.1); Prothrombin Time 23.8 SEC (9.9-13.0)
[2021-11-14 05:03] LABS: Anion Gap 15 (12-20); Blood Urea Nitrogen 11 mg/dL (9-16); Calcium 9.4 mg/dL (8.4-10.2); Carbon Dioxide 23 mmol/L (22-29); Chloride 101 mmol/L (96-108); Estimated Glomerular Filt Rate > 60; Glucose Random 310 mg/dL (60-115); Potassium 4.4 mmol/L (3.3-5.1); Sodium 135 mmol/L (135-145)
--- NOTE | 2021-11-14 05:27 | PC.NURSE ---
Dr Odonnell ordered meds for conscious sedation. This RN to bedside to assess pt's level of orientation in order to provide DC teaching prior to conscious sedation. This RN asks pt how are you? Pt gasps, responds how are you? and returns to sleep. This RN notified Dr Odonnell that d/t pt's mental status at this time, this RN unable to provide DC teaching and thus, pt is unable to have conscious sedation at this time. Dr Odonnell agreeable.
--- NOTE | 2021-11-14 05:58 | PC.NURSE ---
Pt alert and oriented x 4, reports 10/10 L hip pain.
[2021-11-14] MEDS: HYDROmorphone HCl 1 MG/ML SYRINGE IVPUSH ×2 (06:29→07:05)
--- NOTE | 2021-11-14 06:30 | PC.NURSE ---
When preparing for conscious sedation, Ledy AMADOR TT this RN to inquire about when/where pt's hip replacement was performed. Dr Odonnell using this RN's TT to discuss with Ledy the plan for repeated attempt to reduce hip. Per Ledy, no need to try again. Plan for pt to go to OR for reduction. Pt medicated with dilaudid per orders for pain control at this time.
[2021-11-14 07:25] LABS: COVID-19 Test Negative (Negative)
[2021-11-14] MEDS: propofoL 200 MG/20 ML VIAL 150 MG IVPUSH (08:00)
[2021-11-14] MEDS: oxyCODONE HCl Immed Release 5 MG TABLET 10 MG PO (08:00)
[2021-11-14] MEDS: ondansetron HCL 4 MG/2 ML VIAL IVPUSH (09:54)
[2021-11-14] MEDS: 0.9 % Sodium Chloride 1,000 ML 999 ML IVCONT (09:54)
== END 2021-11-14 10:50 | disposition home or self-care (01) ==
PROVIDERS: Emergency Medicine Emergency Medical Services; Emergency Provider Emergency Medicine; PCP Internal Medicine
DX: S73.005A Unspecified dislocation of left hip, initial encounter (principal); M25.552 Pain in left hip; X58.XXXA Exposure to other specified factors, initial encounter; Y93.9 Activity, unspecified; Y92.9 Unspecified place or not applicable; Y99.9 Unspecified external cause status; Z20.822 Contact with and (suspected) exposure to COVID-19; Z79.899 Other long term (current) drug therapy
CPT/HCPCS: 36415; 73502; 80048; 82947; 85025; 85610; 87635; 96361; 96372; 96374; 96375; 99284; 99285; J1170; J2405

== ENCOUNTER 2022-01-03 13:23 | Inpatient (IN) | payer MEDICAID, SELFPAY ==
[2022-01-03] VITALS (8 sets, daily range): BP systolic 118–152; BP diastolic 64–77; PULSE 89–99; RESP 16–18; TEMP 36.7–37.1; O2SAT 94–99; BMI 41.0
--- NOTE | ~2022-01-03 | MR_ITS ---
EXAMINATION: MR LEFT FOOT WITHOUT AND WITH CONTRAST. CLINICAL INFORMATION: Swelling, concern for osteomyelitis COMPARISON: CT 11/05/2021 TECHNIQUE: MRI high-field magnet without and with contrast. 10 mL Gadavist. FINDINGS: There is soft tissue swelling and subcutaneous edema/enhancement of the first toe. Overlying the distal tuft/distal phalanx, is a more loculated T2 bright focus with peripheral enhancement. This measures approximately 2.3 cm in length, 2 x 1.6 cm in short axis. Findings raise concern for an abscess. The first distal phalanx is not otherwise clearly identified, with diffuse abnormal edema, loss of T1 signal. The recent CT scan shows marked destructive changes. Findings are compatible with osteomyelitis. No additional areas of osteomyelitis are identified. There is dorsal soft tissue swelling and subcutaneous edema/cellulitis otherwise diffusely in the foot. Visualized plantar aponeurosis is intact. No appreciable tenosynovitis. Increased T2 signal in the intrinsic muscles of the foot, probably reflecting sequela of denervation changes. MR/MR foot LT wo/w con IMPRESSION: Soft tissue swelling of the first toe with a more organized T2 bright peripherally enhancing focus in the dorsal aspect of the first distal phalanx measuring approximately 2.3 x 2 x 1.6 cm, suspicious for abscess. Redemonstrated destructive changes in the first distal phalanx, with diffuse abnormal signal and nonvisualization of normal T1 signal in the residual bone. Destructive changes are well visualized on the prior CT. Findings highly suspicious for osteomyelitis. In the foot, there is diffuse dorsal soft tissue swelling and subcutaneous edema/cellulitis.
--- NOTE | ~2022-01-03 | CT_ITS ---
EXAMINATION: CT LEFT FOOT CLINICAL INFORMATION: Swelling, redness, evaluate for abscess. COMPARISON: Radiograph of the left ankle done earlier today at 6:30 PM. TECHNIQUE: Contiguous axial imaging of the left foot following the administration of 85 mL of Omnipaque 350. Coronal and sagittal reformats were obtained at the acquisition workstation. This CT examination was performed using dose optimization techniques as appropriate, variously including the following: *Automated exposure control *Adjustment of mA and/or kV according to patient size (this includes techniques or standardized protocols for targeted exams where dose is matched to indication/reason for exam; i.e. extremities or head) *Use of iterative reconstruction technique DLP: 213 mGy-cm FINDINGS: There is extensive soft tissue swelling and reticulation. No subcutaneous air. Overlying the tuft of the first toe, there is a more organized up to 2.6 cm centrally hypodense collection with associated destructive changes of the distal phalanx of the first toe (6:7), suspicious for osteomyelitis. A medial fixation plate along the tibia with multiple traversing screws are noted. There is a vertically oriented partially cannulated screw in the distal fibula. There are additional interlocking screws in the tibiotalar joint. Lucencies surrounding the hardware in the talus, for instance image 89 of series 8 are nonspecific but raises concern for hardware failure. The articular surfaces of the tibiotalar joint are irregular and sclerotic. Similarly, the cortical surface of the distal tibia and fibula are irregular and sclerotic, which is nonspecific and could be associated with postsurgical changes and trauma, although infection is difficult to exclude. Ghost tracks are identified in the calcaneus and talus. Extensive vascular calcifications. CT/CT foot LT w con IMPRESSION: Complex examination. There is extensive soft tissue swelling with a more organized collection overlying the distal phalanx of the first toe with associated destructive changes of the distal phalanx concerning for osteomyelitis. Correlate clinically. There is decreased bony mineralization and extensive orthopedic hardware which limits assessment of fine bony details predominantly in the tibia, fibula and talus which demonstrate somewhat irregularity of their cortex and sclerosis in which infection cannot be excluded. Kathie hardware lucency in the talus raises the possibility of hardware failure or infection.
--- NOTE | ~2022-01-03 | XR_ITS ---
EXAMINATION: XR ANKLE, LEFT CLINICAL INFORMATION: Evaluate hardware COMPARISON: Radiographs of the left ankle 10 8 TECHNIQUE: AP, lateral, and mortise views of the left ankle. FINDINGS: 2 side plates with screws are again demonstrated in the distal tibia. A transversely oriented screw appears to extend to the talus. There is a partially trabeculated screw in the distal fibula. The hardware appears grossly intact. There is some heterogeneity of the distal tibia. There is some indistinctness of the tibiotalar joint, and there may be interval bony fusion. The previously seen fracture line are not well visualized, compatible with healing. No loss of bone mineral density to suggest acute osteomyelitis. There are hypertrophic changes of the tibiotalar joint. There is diffuse soft tissue swelling. There are vascular calcifications. XR/XR ankle LT 2V IMPRESSION: Postsurgical changes of the distal tibia and fibula, with hardware grossly intact. Some indistinctness of the tibiotalar joint, that may represent partial fusion with associated hypertrophic changes. No acute bony abnormality. Diffuse soft tissue swelling.
[2022-01-03 13:45] LABS: MANUAL DIFF FLAG NO
[2022-01-03 13:52] LABS: Basophils Absolute Auto 0.1 X10*3/uL (0.0-0.2); Basophils Percent Auto 0.5 % (0-2); Eosinophils Absolute Auto 0.1 X10*3/uL (0.0-0.4); Eosinophils Percent Auto 0.6 % (0-4); Hematocrit 44.9 % (42.0-52.0); Hemoglobin 13.8 g/dl (14.0-18.0); Imm Gran Abs Auto 0.04 X10*3/uL (0.00-0.03); Imm Gran Pct Auto 0.3 % (0.0-0.4); Lymphocytes Absolute Auto 2.3 X10*3/uL (1.2-4.9); Mean Corpuscular HGB Conc 30.7 g/dl (31.0-36.0); Mean Corpuscular Hemoglobin 28.5 pg (27.0-33.0); Mean Corpuscular Volume 92.8 fL (80.0-98.0); Monocytes Absolute Auto 1.1 X10*3/uL (0.1-1.2); Monocytes Percent Auto 9.5 % (2-11); Neutrophils Absolute Auto 8.4 x10*3/uL (2.0-8.3); Neutrophils Percent Auto 70.1 % (45-73); Platelet Count 248 X10*3/uL (160-400); Red Blood Count 4.84 X10*6/uL (4.60-5.80); Red Cell Distribution Width 12.9 % (11.0-16.0); White Blood Count 11.9 X10*3/uL (4.8-10.8)
[2022-01-03 14:10] LABS: Anion Gap 14 (12-20); Blood Urea Nitrogen 7 mg/dL (9-16); Calcium 8.7 mg/dL (8.4-10.2); Carbon Dioxide 23 mmol/L (22-29); Chloride 99 mmol/L (96-108); Creatinine Clr Calc Pharmacy 126.6; Estimated Glomerular Filt Rate > 60; Glucose Random 334 mg/dL (60-115); Potassium 4.7 mmol/L (3.3-5.1); Sodium 131 mmol/L (135-145)
--- NOTE | 2022-01-03 17:09 | ED.EXTPRO ---
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 Patient reports initially the redness and swelling started in the great toe but then spread down to the foot and leg. He has had chills. No fever, vomiting, weakness, numbness or tingling of the extremity Related Data Home Medications Medication Instructions Recorded Confirmed ezetimibe 10 mg tablet 1 tab PO DAILY 01/03/22 01/03/22 gabapentin 300 mg capsule 1 cap PO TID 01/03/22 01/03/22 hydroxyzine HCl 10 mg tablet 2 tab PO QID PRN 01/03/22 01/03/22 insulin glargine 100 unit/mL 50 unit SUBCUT DAILY@1200 01/03/22 01/03/22 subcutaneous solution (Lantus U-100 Insulin) insulin glargine 100 unit/mL 100 unit SUBCUT BEDTIME 01/03/22 01/03/22 subcutaneous solution (Lantus U-100 Insulin) insulin lispro 100 unit/mL 30 unit SUBCUT TIDAC 01/03/22 01/03/22 subcutaneous solution isosorbide mononitrate 30 mg 1 tab PO QAM 01/03/22 01/03/22 tablet,extended release 24 hr loratadine 10 mg tablet 1 tab PO DAILY 01/03/22 01/03/22 losartan 25 mg tablet 1 tab PO DAILY 01/03/22 01/03/22 meclizine 25 mg tablet 1 tab PO TID PRN 01/03/22 01/03/22 metoprolol tartrate 25 mg tablet 1 tab PO BID 01/03/22 01/03/22 montelukast 10 mg tablet 1 tab PO BEDTIME 01/03/22 01/03/22 ondansetron HCl 4 mg tablet 1 tab PO TID PRN 01/03/22 01/03/22 oxycodone 20 mg tablet,crush 1 tab PO BID 01/03/22 01/03/22 resistant,extended release 12 hr (OxyContin) oxycodone 5 mg tablet 2 tab PO Q4H 01/03/22 01/03/22 pantoprazole 40 mg tablet,delayed 1 tab PO BID@0630,1630 01/03/22 01/03/22 release quetiapine 25 mg tablet 0.5 tab PO BEDTIME 01/03/22 01/03/22 rosuvastatin 40 mg tablet 1 tab PO BEDTIME 01/03/22 01/03/22 thiamine HCl (vitamin B1) 100 mg 1 tab PO DAILY 01/03/22 01/03/22 tablet valacyclovir 1 gram tablet 2 tab PO BID 01/03/22 01/03/22 venlafaxine 100 mg tablet 1 tab PO BID 01/03/22 01/03/22 warfarin 5 mg tablet 2.5 mg PO MOWESA@1800 01/03/22 01/03/22 warfarin 5 mg tablet 5 mg PO DAILY@1800 01/03/22 01/03/22 zolpidem 10 mg tablet 1 tab PO BEDTIME PRN 01/03/22 01/03/22 Allergies Allergy/AdvReac Type Severity Reaction Status Date / Time acetaminophen [From Tylenol] Allergy Intermediate Rash Verified 07/06/21 06:43 morphine AdvReac Intermediate Hallucinati Verified 07/06/21 06:43 ons Review of Systems Review of Systems: Yes all other systems are reviewed and are negative Constitutional: Constitutional: Reports no additional constitutional complaints, Denies body ache(s), Reports chills, Denies fever(s), Denies headache(s) and Denies weakness Eyes: Eyes: Reports no additional eye complaints and Denies change in vision ENT: Reports system reviewed and no additional complaints, except as documented, Denies dizziness, Denies headache(s), Denies nasal congestion, Denies nasal discharge and Denies neck pain Cardiovascular: Cardiovascular: Reports no additional cardiovascular complaints, Denies chest pain, Reports leg edema and Denies dyspnea Respiratory: Respiratory: Reports no additional respiratory complaints, Denies cough and Denies dyspnea Gastrointestinal: Gastrointestinal: Reports no additional gastrointestinal complaints, Denies abdominal pain, Denies diarrhea, Denies nausea and Denies vomiting Genitourinary: Genitourinary: Denies urinary incontinence Musculoskeletal: Musculoskeletal: Reports no additional musculoskeletal complaints, Denies back pain, Denies arthralgias, Denies joint swelling, Denies neck pain, Denies numbness and Denies tingling Integumentary/Breasts: Skin/Breast: Reports system reviewed and no additional complaints, except as docu and Denies rash Neurologic: Reports system reviewed and no additional complaints, except as documented, Denies Abnormal speech present, Denies dizziness, Denies headache(s), Denies numbness, Denies tingling and Denies weakness PMFSH Past Medical History Attestation statement: The following information was validated with the patient. Source: old records reviewed and nursing notes reviewed Medical History Asthma Diabetes FHx: bilateral hip replacements Hypertension Surgical History S/P quadruple vessel bypass Social History Social History Alcohol intake: never Patient Tobacco Use Status: Former Tobacco user Advance Directives: Yes Advance Directives Information Provided: Yes Advance Directives on File: No Physical Exam Vital Signs: Vital Signs: Last Vital Signs Temp 98.0 F 01/03/22 19:14 Pulse 97 01/03/22 20:59 Resp 18 01/03/22 20:59 BP 128/77 01/03/22 20:59 Pulse Ox 98 01/03/22 20:59 BMI result Body Mass Index 41.0 Const: Other: In pain, anxious General: cooperative Orientation/consciousness: patient oriented x3 Limitations: no limitations HENMT: Head: Yes normal to inspection Ears: hearing grossly normal bilaterally General nose exam: Normal external nose present Face and sinus: Yes normal facial exam Mouth: Normal oral and palatal mucosa present Throat: Yes posterior oropharynx normal Eyes: General: appearance normal, both eyes and all related structures Pupils: Equal, round and reactive pupils present Neck: Neck: Yes normal visual inspection Chest: Chest palpation & inspection: normal inspection of the chest Resp: Effort & Inspection: normal respiratory effort Auscultation: clear to auscultation bilaterally Cardio: Rate: regular rate Rhythm: regular rhythm Peripheral pulses: Peripheral pulses 2+ throughout GI: Inspection: Yes normal to inspection Palpation (GI): Soft to palpation and nontender Auscultation: normal bowel sounds Back/Spine/Pelvis: Thoracic/Lumbar Spine: thoracic and lumbar spine normal to inspection Skin: General skin exam: no rashes or lesions noted Neuro: General: patient oriented x3, no focal motor deficits and normal sensation to monofilament Cranial nerves: Yes Equal, round and reactive pupils present Cognition (Neuro): normal cognition Speech: No Abnormal speech present Gait exam (Neuro): Normal gait present Motor exam (neuro): 5/5 motor strength present throughout Extrem: Other: Palpable DP and PT pulses. The compartments are compressible, diffusely tender. Patient is able to flex and extend the foot. Sensation is intact General: Yes normal to inspection Course Course Course Narrative: This is a 61-year-old male here with left lower extremity swelling, redness and pain for 1 week which chills. On exam the patient has a cellulitis of the left lower leg. Low concern for compartment syndrome with soft compressible compartments, and neurovascular intact distally. Low concern for DVT as patient is on Coumadin and has been compliant with a most recent INR of 2.2. Will need labs including blood cultures and lactic acid, x-ray of the left lower leg as he has hardware, CT to eval for underlying abscess. At this time infection is suspected. Antibiotics ordered 2030- CT foot shows Complex examination. ? There is extensive soft tissue swelling with a more organized collection overlying the distal phalanx of the first toe with associated destructive changes of the distal phalanx concerning for osteomyelitis. Correlate clinically. ? There is decreased bony mineralization and extensive orthopedic hardware which limits assessment of fine bony details predominantly in the tibia, fibula and talus which demonstrate somewhat irregularity of their cortex and sclerosis in which infection cannot be excluded. ? Kathie hardware lucency in the talus raises the possibility of hardware failure or infection. -on exam the patient has extensive swelling and tenderness over the left great toe and I do believe that this is the source of the infection. A less likely septic joint/hardware infection with range of motion intact of the ankle. I did discuss the case with orthopedics (Dr Nesbitt) and who was made aware of the patient. Discussed case with Dr. Colin who accepted admission of the patient MDM - Extremity (Nontraumatic) Medical Records Attestation: I reviewed the patient's medical records. Lab Data Attestation: I reviewed the patient's lab results. Result diagrams: 01/03/22 13:39 01/03/22 13:39 Labs: Lab Results 01/03/22 01/03/22 01/03/22 Range/Units 13:39 13:39 13:39 WBC 11.9 H (4.8-10.8) X10*3/uL RBC 4.84 (4.60-5.80) X10*6/uL Hgb 13.8 L (14.0-18.0) g/dl Hct 44.9 (42.0-52.0) % MCV 92.8 (80.0-98.0) fL MCH 28.5 (27.0-33.0) pg MCHC 30.7 L (31.0-36.0) g/dl RDW 12.9 (11.0-16.0) % Plt Count 248 (160-400) X10*3/uL MPV 10.0 (9.4-12.4) fL Immature Gran % (Auto) 0.3 (0.0-0.4) % Neut % (Auto) 70.1 (45-73) % Lymph % (Auto) 19.0 L (20-40) % Nelson % (Auto) 9.5 (2-11) % Eos % (Auto) 0.6 (0-4) % Baso % (Auto) 0.5 (0-2) % Lymph # (Auto) 2.3 (1.2-4.9) X10*3/uL Nelson # (Auto) 1.1 (0.1-1.2) X10*3/uL Eos # (Auto) 0.1 (0.0-0.4) X10*3/uL Baso # (Auto) 0.1 (0.0-0.2) X10*3/uL Abs Immat Gran (auto) 0.04 H (0.00-0.03) X10*3/uL Absolute Neuts (auto) 8.4 H (2.0-8.3) x10*3/uL Absolute Nucleated RBC 0.000 (0.0-0.012) X10*3/uL Nucleated RBC % (auto) 0.0 (0.0-0.2) /100WBC PT (9.9-13.0) SEC INR (0.9-1.1) Sodium 131 L (135-145) mmol/L Potassium 4.7 (3.3-5.1) mmol/L Chloride 99 (96-108) mmol/L Carbon Dioxide 23 (22-29) mmol/L Anion Gap 14 (12-20) BUN 7 L (9-16) mg/dL Creatinine 0.78 (0.5-1.4) mg/dL Estim Creat Clear Calc 126.6 Estimated GFR > 60 POC Glucose (60-115) mg/dL Random Glucose 334 H (60-115) mg/dL Lactic Acid (0.5-2.0) mmol/L Calcium 8.7 D (8.4-10.2) mg/dL Magnesium (1.6-2.6) mg/dL Total Bilirubin (0.0-1.0) mg/dL Direct Bilirubin (0.0-0.5) mg/dL AST (5-37) U/L ALT (0-40) U/L Alkaline Phosphatase (39-117) U/L C-Reactive Protein (< or = 0.50) mg/dL Total Protein (6.5-8.0) g/dL Albumin (3.5-5.0) g/dL COVID-19 ([facility]) Cancelled COVID-19 Clin Com Cancelled 01/03/22 01/03/22 01/03/22 Range/Units 18:00 18:00 18:00 WBC (4.8-10.8) X10*3/uL RBC (4.60-5.80) X10*6/uL Hgb (14.0-18.0) g/dl Hct (42.0-52.0) % MCV (80.0-98.0) fL MCH (27.0-33.0) pg MCHC (31.0-36.0) g/dl RDW (11.0-16.0) % Plt Count (160-400) X10*3/uL MPV (9.4-12.4) fL Immature Gran % (Auto) (0.0-0.4) % Neut % (Auto) (45-73) % Lymph % (Auto) (20-40) % Nelson % (Auto) (2-11) % Eos % (Auto) (0-4) % Baso % (Auto) (0-2) % Lymph # (Auto) (1.2-4.9) X10*3/uL Nelson # (Auto) (0.1-1.2) X10*3/uL Eos # (Auto) (0.0-0.4) X10*3/uL Baso # (Auto) (0.0-0.2) X10*3/uL Abs Immat Gran (auto) (0.00-0.03) X10*3/uL Absolute Neuts (auto) (2.0-8.3) x10*3/uL Absolute Nucleated RBC (0.0-0.012) X10*3/uL Nucleated RBC % (auto) (0.0-0.2) /100WBC PT 35.9 H (9.9-13.0) SEC INR 3.1 H (0.9-1.1) Sodium (135-145) mmol/L Potassium (3.3-5.1) mmol/L Chloride (96-108) mmol/L Carbon Dioxide (22-29) mmol/L Anion Gap (12-20) BUN (9-16) mg/dL Creatinine (0.5-1.4) mg/dL Estim Creat Clear Calc Estimated GFR POC Glucose (60-115) mg/dL Random Glucose (60-115) mg/dL Lactic Acid 1.7 (0.5-2.0) mmol/L Calcium (8.4-10.2) mg/dL Magnesium 2.3 (1.6-2.6) mg/dL Total Bilirubin 0.8 (0.0-1.0) mg/dL Direct Bilirubin 0.3 (0.0-0.5) mg/dL AST 10 (5-37) U/L ALT 7 (0-40) U/L Alkaline Phosphatase 80 (39-117) U/L C-Reactive Protein 16.12 H (< or = 0.50) mg/dL Total Protein 6.8 (6.5-8.0) g/dL Albumin 3.9 (3.5-5.0) g/dL COVID-19 ([facility]) COVID-19 Clin Com 01/03/22 01/03/22 Range/Units 18:00 18:28 WBC (4.8-10.8) X10*3/uL RBC (4.60-5.80) X10*6/uL Hgb (14.0-18.0) g/dl Hct (42.0-52.0) % MCV (80.0-98.0) fL MCH (27.0-33.0) pg MCHC (31.0-36.0) g/dl RDW (11.0-16.0) % Plt Count (160-400) X10*3/uL MPV (9.4-12.4) fL Immature Gran % (Auto) (0.0-0.4) % Neut % (Auto) (45-73) % Lymph % (Auto) (20-40) % Nelson % (Auto) (2-11) % Eos % (Auto) (0-4) % Baso % (Auto) (0-2) % Lymph # (Auto) (1.2-4.9) X10*3/uL Nelson # (Auto) (0.1-1.2) X10*3/uL Eos # (Auto) (0.0-0.4) X10*3/uL Baso # (Auto) (0.0-0.2) X10*3/uL Abs Immat Gran (auto) (0.00-0.03) X10*3/uL Absolute Neuts (auto) (2.0-8.3) x10*3/uL Absolute Nucleated RBC (0.0-0.012) X10*3/uL Nucleated RBC % (auto) (0.0-0.2) /100WBC PT (9.9-13.0) SEC INR (0.9-1.1) Sodium (135-145) mmol/L Potassium (3.3-5.1) mmol/L Chloride (96-108) mmol/L Carbon Dioxide (22-29) mmol/L Anion Gap (12-20) BUN (9-16) mg/dL Creatinine (0.5-1.4) mg/dL Estim Creat Clear Calc Estimated GFR POC Glucose 257 H (60-115) mg/dL Random Glucose (60-115) mg/dL Lactic Acid (0.5-2.0) mmol/L Calcium (8.4-10.2) mg/dL Magnesium (1.6-2.6) mg/dL Total Bilirubin (0.0-1.0) mg/dL Direct Bilirubin (0.0-0.5) mg/dL AST (5-37) U/L ALT (0-40) U/L Alkaline Phosphatase (39-117) U/L C-Reactive Protein (< or = 0.50) mg/dL Total Protein (6.5-8.0) g/dL Albumin (3.5-5.0) g/dL COVID-19 ([facility]) Negative COVID-19 Clin Com See Note Imaging Data ankle xray: Attestation: I personally reviewed and interpreted this imaging study as follows: Radiologist's impression: FINDINGS: 2 side plates with screws are again demonstrated in the distal tibia. A transversely oriented screw appears to extend to the talus. There is a partially trabeculated screw in the distal fibula. The hardware appears grossly intact. There is some heterogeneity of the distal tibia. There is some indistinctness of the tibiotalar joint, and there may be interval bony fusion. The previously seen fracture line are not well visualized, compatible with healing. No loss of bone mineral density to suggest acute osteomyelitis. There are hypertrophic changes of the tibiotalar joint. There is diffuse soft tissue swelling. There are vascular calcifications. XR/XR ankle LT 2V IMPRESSION: Postsurgical changes of the distal tibia and fibula, with hardware grossly intact. ? Some indistinctness of the tibiotalar joint, that may represent partial fusion with associated hypertrophic changes. ? No acute bony abnormality. ? Diffuse soft tissue swelling. CT foot: Attestation: I personally reviewed and interpreted this imaging study as follows: Radiologist's impression: IMPRESSION: ? Complex examination. ? There is extensive soft tissue swelling with a more organized collection overlying the distal phalanx of the first toe with associated destructive changes of the distal phalanx concerning for osteomyelitis. Correlate clinically. ? There is decreased bony mineralization and extensive orthopedic hardware which limits assessment of fine bony details predominantly in the tibia, fibula and talus which demonstrate somewhat irregularity of their cortex and sclerosis in which infection cannot be excluded. ? Kathie hardware lucency in the talus raises the possibility of hardware failure or infection. Discharge Plan Discharge Clinical Impression: Osteomyelitis, Cellulitis, Leukocytosis, Hyperglycemia Patient Disposition: Admitted As Inpatient Prescriptions: No Action quetiapine 25 mg tablet 0.5 tab PO BEDTIME 0RF Lantus U-100 Insulin 100 unit/mL solution 100 unit subcut BEDTIME 0RF Rx Instructions: 50 units at lunch and 100 units at bedtime Lantus U-100 Insulin 100 unit/mL solution 50 unit subcut DAILY@1200 0RF Rx Instructions: 50 units at lunch and 100 units at bedtime valacyclovir 1 gram tablet 2 tab PO BID 0RF Rx Instructions: 1 more tablet left of 2 day course isosorbide mononitrate 30 mg tablet extended release 24 hr 1 tab PO QAM 0RF thiamine HCl (vitamin B1) 100 mg tablet 1 tab PO DAILY 0RF venlafaxine 100 mg tablet 1 tab PO BID 0RF pantoprazole 40 mg tablet,delayed release (DR/EC) 1 tab PO BID@0630,1630 0RF warfarin 5 mg tablet 5 mg PO DAILY@1800 0RF Rx Instructions: 5 mg on all days except 7.5 mg on losartan 25 mg tablet 1 tab PO DAILY 0RF gabapentin 300 mg capsule 1 cap PO TID 0RF montelukast 10 mg tablet 1 tab PO BEDTIME 0RF insulin lispro 100 unit/mL solution 30 unit subcut TIDAC 0RF zolpidem 10 mg tablet 1 tab PO BEDTIME PRN (Reason: insomnia) 0RF hydroxyzine HCl 10 mg tablet 2 tab PO QID PRN (Reason: itch) 0RF loratadine 10 mg tablet 1 tab PO DAILY 0RF oxycodone 5 mg tablet 2 tab PO Q4H 0RF ezetimibe 10 mg tablet 1 tab PO DAILY 0RF rosuvastatin 40 mg tablet 1 tab PO BEDTIME 0RF metoprolol tartrate 25 mg tablet 1 tab PO BID 0RF oxycodone [OxyContin] 20 mg tablet,oral only,ext.rel.12 hr 1 tab PO BID 0RF ondansetron HCl 4 mg tablet 1 tab PO TID PRN (Reason: nausea) 0RF meclizine 25 mg tablet 1 tab PO TID PRN (Reason: dizziness) 0RF warfarin 5 mg tablet 2.5 mg PO MOWESA@1800 0RF Rx Instructions: 5 MG ON ALL DAYS EXCEPT 7.5 MG ON
[2022-01-03] MEDS: LORazepam 2 MG/ML VIAL 1 MG IVPUSH (18:06)
[2022-01-03] MEDS: HYDROmorphone HCl 0.5 MG/0.5 ML SYRINGE IVPUSH (18:06)
[2022-01-03 18:15] LABS: INTERNATIONAL NORM RATIO 3.1 (0.9-1.1); Prothrombin Time 35.9 SEC (9.9-13.0)
[2022-01-03 18:17] LABS: Lactic Acid 1.7 mmol/L (0.5-2.0)
[2022-01-03 18:22] LABS: COVID-19 Test Negative (Negative)
[2022-01-03 18:25] LABS: Alanine Aminotransferase 7 U/L (0-40); Albumin Level 3.9 g/dL (3.5-5.0); Alkaline Phosphatase 80 U/L (39-117); Aspartate Amino Transferase 10 U/L (5-37); Bilirubin Direct 0.3 mg/dL (0.0-0.5); Bilirubin Total 0.8 mg/dL (0.0-1.0); Magnesium 2.3 mg/dL (1.6-2.6); Total Protein 6.8 g/dL (6.5-8.0)
[2022-01-03] MEDS: 0.9 % Sodium Chloride 1,000 ML 999 ML IV (18:30)
[2022-01-03 18:31] LABS: Glucose, Whole Blood 257 mg/dL (60-115)
[2022-01-03] MEDS: iohexoL 350 MG/ML 100 ML INFUS..BTL IV (18:51)
--- NOTE | 2022-01-03 20:05 | PHA.MEDREC ---
Pharmacy Consult ? Medication Reconciliation Pharmacy has completed the medication reconciliation. SPoke with patient in ED. patient last took medications on 01/02/22.
--- NOTE | 2022-01-03 20:14 | PC.NURSE ---
Per Laura HERNANDEZ, cultures were just now obtained. Pt has been a difficult stick.
[2022-01-03] MEDS: HYDROmorphone HCl 1 MG/ML SYRINGE IVPUSH (20:26)
[2022-01-03] MEDS: Piperacillin Sodium/Tazobactam 3.375 GM in 0.9 % Sodium Chloride 50 ML IV (20:28)
[2022-01-03 20:53] LABS: C Reactive Protein 16.12 mg/dL (< or = 0.50)
[2022-01-03] MEDS: vancomycin HCL 1,000 MG, vancomycin HCL 750 MG in 0.9 % Sodium Chloride 500 ML 267.5 MG IV (20:54)
--- NOTE | 2022-01-03 21:00 | PC.NURSE ---
pt left foot big toe deep red, warm, swelling and painful. pt medicated with dilaudid and slow pain relief. called in and verified the warfen dose. fri sat 7.5 mg and 5mg all other days. this information has been relayed onto pharmacy.
--- NOTE | 2022-01-03 23:17 | PM.IMHP ---
History of Present Illness Date of Service: 01/03/22 Chief Complaint: left toe pain this is a 61-year-old male with past medical history of diabetes, asthma, hyperlipidemia, depression, CAD status post CABG on Coumadin per patient,who presents to the hospital with complaints of left toe pain. Patient reports that his symptoms started about 3 4 days ago with significant pain in his left toe, 10/10, radiating slightly of his foot, worsening, associated with chills, no alleviating factors, movement or touching the toe makes the pain significantly worse. Patient denies any chest pain, no shortness of breath, no abdominal pain nausea or vomiting, no diarrhea constipation, no urinary symptoms and no lower extremity edema. no headache or change in vision. on arrival to the ED pt found to be hemodynamically stable labs are significant for WBC count of 11.9, hemoglobin of 13.8, hematocrit of 44.9, ESR 62, INR 3.1, CRP of 16.12, hyperglycemia with a glucose of [address] shows extensive soft tissue swelling with a more organized collection overlying the distal phalanx of the 1st toe with associated destructive changes of the distal phalanx concerning for osteomyelitis patient also has hardware in his left ankle with a CT of the foot showing perihardware lucency in the talus raises the possibility of hardware failure or infection patient started on IV antibiotics and will be admitted for further management Review of Systems Review of Systems: Yes all other systems are reviewed and are negative [facility] Medical History (Updated 01/04/22 @ 06:38 by Jacki Colin MD) Asthma Diabetes FHx: bilateral hip replacements Hypertension Family History (Updated 01/04/22 @ 06:35 by Jacki Colin MD) Other No family history of coronary artery disease Surgical History (Updated 01/04/22 @ 06:36 by Jacki Colin MD) H/O bilateral hip replacements History of ankle surgery History of back surgery History of neck surgery S/P quadruple vessel bypass Social History (Updated 01/04/22 @ 06:36 by Jacki Colin MD) Alcohol intake: never Patient Tobacco Use Status: Former Tobacco user Use of substances other than those prescribed or required for medical reasons: No Advance Directives: Yes Advance Directives Information Provided: Yes Advance Directives on File: No Meds Allergies Allergy/AdvReac Type Severity Reaction Status Date / Time acetaminophen [From Tylenol] Allergy Intermediate Rash Verified 07/06/21 06:43 morphine AdvReac Intermediate Hallucinati Verified 07/06/21 06:43 ons Active Medications: Current Medications Docusate Sodium (Docusate Sodium 100 Mg Capsule) 100 mg PO DAILY PRN PRN Reason: Constipation Heparin Sodium (Porcine) (Heparin Sodium,Porcine 5,000 Unit/Ml Vial) 5,000 unit SUBCUT Q12H WILLIAM Piperacillin Sod/Tazobactam (Sod 3.375 gm/ Sodium Chloride) 50 mls @ 100 mls/hr IV Q6H WILLIAM Vancomycin HCl 1,500 mg/ (Sodium Chloride) 500 mls @ 333.333 mls/hr IV Q12H WILLIAM Morphine Sulfate (Morphine Sulfate 4 Mg/Ml Cartridge) 4 mg IVPUSH Q4H PRN; Protocol PRN Reason: Pain, Severe (Pain Scale 7-10) Ondansetron HCl (Ondansetron Hcl 4 Mg/2 Ml Vial) 4 mg IVPUSH Q8H PRN PRN Reason: Nausea and Vomiting Pharmacy Consult (Consult Rx Perform Med Rec) 1 each MISCELLANE ONCE PRN PRN Reason: Consult order Pharmacy Consult (Consult Rx Vancomycin Dosing) 1 each MISCELLANE DAILY PRN PRN Reason: Consult order Sodium Chloride (0.9 % Sodium Chloride Flush 3 Ml Syringe) 3 ml IVFLUSH QSHIFT [facility] Home Medications Medication Instructions Recorded Confirmed Last Taken Type ezetimibe 10 mg tablet 1 tab PO DAILY 01/03/22 01/03/22 01/02/22 History gabapentin 300 mg capsule 1 cap PO TID 01/03/22 01/03/22 01/02/22 History hydroxyzine HCl 10 mg tablet 2 tab PO QID PRN 01/03/22 01/03/22 Unknown History insulin glargine 100 unit/mL 50 unit SUBCUT DAILY@1200 01/03/22 01/03/22 01/02/22 History subcutaneous solution (Lantus U-100 Insulin) insulin glargine 100 unit/mL 100 unit SUBCUT BEDTIME 01/03/22 01/03/22 01/02/22 History subcutaneous solution (Lantus U-100 Insulin) insulin lispro 100 unit/mL 30 unit SUBCUT TIDAC 01/03/22 01/03/22 01/02/22 History subcutaneous solution isosorbide mononitrate 30 mg 1 tab PO QAM 01/03/22 01/03/22 01/02/22 History tablet,extended release 24 hr loratadine 10 mg tablet 1 tab PO DAILY 01/03/22 01/03/22 01/02/22 History losartan 25 mg tablet 1 tab PO DAILY 01/03/22 01/03/22 01/02/22 History meclizine 25 mg tablet 1 tab PO TID PRN 01/03/22 01/03/22 Unknown History metoprolol tartrate 25 mg tablet 1 tab PO BID 01/03/22 01/03/22 01/02/22 History montelukast 10 mg tablet 1 tab PO BEDTIME 01/03/22 01/03/22 01/02/22 History ondansetron HCl 4 mg tablet 1 tab PO TID PRN 01/03/22 01/03/22 Unknown History oxycodone 20 mg tablet,crush 1 tab PO BID 01/03/22 01/03/22 01/02/22 History resistant,extended release 12 hr (OxyContin) oxycodone 5 mg tablet 2 tab PO Q4H 01/03/22 01/03/22 01/02/22 History pantoprazole 40 mg tablet,delayed 1 tab PO BID@0630,1630 01/03/22 01/03/22 01/02/22 History release quetiapine 25 mg tablet 0.5 tab PO BEDTIME 01/03/22 01/03/22 01/02/22 History rosuvastatin 40 mg tablet 1 tab PO BEDTIME 01/03/22 01/03/22 01/02/22 History thiamine HCl (vitamin B1) 100 mg 1 tab PO DAILY 01/03/22 01/03/22 01/02/22 History tablet valacyclovir 1 gram tablet 2 tab PO BID 01/03/22 01/03/22 01/02/22 History venlafaxine 100 mg tablet 1 tab PO BID 01/03/22 01/03/22 01/02/22 History warfarin 5 mg tablet 2.5 mg PO MOWESA@1800 01/03/22 01/03/22 01/02/22 History warfarin 5 mg tablet 5 mg PO DAILY@1800 01/03/22 01/03/22 01/02/22 History zolpidem 10 mg tablet 1 tab PO BEDTIME PRN 01/03/22 01/03/22 Unknown History Physical Exam Vital Signs and Narrative: Vital Signs: Last Vital Signs Temp 98.0 F 01/03/22 19:14 Pulse 97 01/03/22 20:59 Resp 18 01/03/22 20:59 BP 128/77 01/03/22 20:59 Pulse Ox 98 01/03/22 20:59 BMI result Body Mass Index 41.0 Const: General: cooperative and no acute distress Orientation/consciousness: patient oriented x3 Eyes: General: appearance normal, both eyes and all related structures Pupils: Equal, round and reactive pupils present Resp: Effort & Inspection: normal respiratory effort Auscultation: clear to auscultation bilaterally Cardio: Rate: regular rate Rhythm: regular rhythm GI: Palpation (GI): Soft to palpation Auscultation: normal bowel sounds Neuro: General: patient oriented x3 Cranial nerves: Yes Equal, round and reactive pupils present Cognition (Neuro): normal cognition Extrem: Other: significant swelling of the left toe, with erythema, significant tenderness, patient also has an area around the lower srinivasan that is also very tender, edematous and atheromatous Results Labs CBC and Chem 7: 01/03/22 13:39 01/03/22 13:39 Labs: Laboratory Results - last 24 hr 01/03/22 01/03/22 01/03/22 13:39 13:39 13:39 MCV 92.8 MCH 28.5 MCHC 30.7 L RDW 12.9 Plt Count 248 MPV 10.0 Immature Gran % (Auto) 0.3 Neut % (Auto) 70.1 Lymph % (Auto) 19.0 L Buchanan % (Auto) 9.5 Eos % (Auto) 0.6 Baso % (Auto) 0.5 Lymph # (Auto) 2.3 Buchanan # (Auto) 1.1 Eos # (Auto) 0.1 Baso # (Auto) 0.1 Abs Immat Gran (auto) 0.04 H Absolute Neuts (auto) 8.4 H Absolute Nucleated RBC 0.000 Nucleated RBC % (auto) 0.0 PT INR Anion Gap 14 Estim Creat Clear Calc 126.6 Estimated GFR > 60 POC Glucose Random Glucose 334 H Lactic Acid Calcium 8.7 D Magnesium Total Bilirubin Direct Bilirubin AST ALT Alkaline Phosphatase C-Reactive Protein Total Protein Albumin COVID-19 ([facility]) Cancelled COVID-19 Clin Com Cancelled 01/03/22 01/03/22 01/03/22 18:00 18:00 18:00 MCV MCH MCHC RDW Plt Count MPV Immature Gran % (Auto) Neut % (Auto) Lymph % (Auto) Buchanan % (Auto) Eos % (Auto) Baso % (Auto) Lymph # (Auto) Buchanan # (Auto) Eos # (Auto) Baso # (Auto) Abs Immat Gran (auto) Absolute Neuts (auto) Absolute Nucleated RBC Nucleated RBC % (auto) PT 35.9 H INR 3.1 H Anion Gap Estim Creat Clear Calc Estimated GFR POC Glucose Random Glucose Lactic Acid 1.7 Calcium Magnesium 2.3 Total Bilirubin 0.8 Direct Bilirubin 0.3 AST 10 ALT 7 Alkaline Phosphatase 80 C-Reactive Protein 16.12 H Total Protein 6.8 Albumin 3.9 COVID-19 ([facility]) COVID-19 Clin Com 01/03/22 01/03/22 18:00 18:28 MCV MCH MCHC RDW Plt Count MPV Immature Gran % (Auto) Neut % (Auto) Lymph % (Auto) Buchanan % (Auto) Eos % (Auto) Baso % (Auto) Lymph # (Auto) Buchanan # (Auto) Eos # (Auto) Baso # (Auto) Abs Immat Gran (auto) Absolute Neuts (auto) Absolute Nucleated RBC Nucleated RBC % (auto) PT INR Anion Gap Estim Creat Clear Calc Estimated GFR POC Glucose 257 H Random Glucose Lactic Acid Calcium Magnesium Total Bilirubin Direct Bilirubin AST ALT Alkaline Phosphatase C-Reactive Protein Total Protein Albumin COVID-19 ([facility]) Negative COVID-19 Clin Com See Note Imaging Radiologist's Impressions: Impressions Ankle X-Ray 01/03/22 18:21 IMPRESSION: Postsurgical changes of the distal tibia and fibula, with hardware grossly intact. Some indistinctness of the tibiotalar joint, that may represent partial fusion with associated hypertrophic changes. No acute bony abnormality. Diffuse soft tissue swelling. Foot CT 01/03/22 18:53 IMPRESSION: Complex examination. There is extensive soft tissue swelling with a more organized collection overlying the distal phalanx of the first toe with associated destructive changes of the distal phalanx concerning for osteomyelitis. Correlate clinically. There is decreased bony mineralization and extensive orthopedic hardware which limits assessment of fine bony details predominantly in the tibia, fibula and talus which demonstrate somewhat irregularity of their cortex and sclerosis in which infection cannot be excluded. Kathie hardware lucency in the talus raises the possibility of hardware failure or infection. Assessment and Plan (1) Osteomyelitis: Status: Acute (2) Cellulitis: Status: Acute (3) Hyperglycemia: Status: Acute (4) Orthopedic hardware present: Status: Acute Plan 61-year-old male with past medical history of diabetes, coronary artery disease who presents to the hospital with complaints of left toe pain found to have osteomyelitis # left toe acute osteomyelitis - CT of the foot showing osteomyelitis, patient has elevated ESR and CRP - will treat with IV antibiotics - consult general surgery as well as Infectious Disease - follow cultures # possible hardware infection/abnormality - CT results as above - orthopedic consult - IV antibiotics # hyperglycemia - secondary to diabetes - resume his home insulin, will add low-dose sliding scale insulin, diabetic diet # coronary artery disease - continue metoprolol, and warfarin - does not appear to be on aspirin # supratherapeutic INR - patient states that his on warfarin for history of quadruple bypass - reports no history of arrhythmia or mechanical valve replacement - will hold warfarin was tonight, resume once PT INR less than 3 # hypertension - stable - continue home medications DVT prophylaxis: Lovenox Quality Stroke Does the patient have a stroke diagnosis?: No VTE Prior VTE?: No VTE Risk Level:: Medical - moderate - high VTE Device Contraindication: Treatment Not Indicated VTE Drug Contraindication: N/A - Med Ordered
[2022-01-03 23:45] LABS: Glucose, Whole Blood 208 mg/dL (60-115)
[2022-01-03 23:46] LABS: Uric Acid 3.7 mg/dL (3.4-7.0)
--- NOTE | 2022-01-03 23:56 | PC.NURSE ---
pharmacy called medications are not crossing over to pyxis.
[2022-01-04] VITALS (11 sets, daily range): BP systolic 116–148; BP diastolic 56–76; PULSE 71–93; RESP 16–20; TEMP 36.4–36.8; O2SAT 92–99
[2022-01-04] MEDS: Insulin Glargine,Hum.rec.anlog 100 UNIT/ML 10 ML VIAL SUBCUT (00:16)
[2022-01-04] MEDS: QUEtiapine Fumarate 25 MG TABLET 12.5 MG PO ×2 (00:17→21:38)
[2022-01-04] MEDS: Piperacillin Sodium/Tazobactam 3.375 GM in 0.9 % Sodium Chloride 50 ML IV ×5 (00:17→23:24)
[2022-01-04] MEDS: oxyCODONE HCl Immed Release 5 MG TABLET 10 MG PO ×7 (00:17→23:24)
[2022-01-04 00:26] LABS: Erythrocyte Sedimentation Rate 62 MM/HR (0-15)
[2022-01-04] MEDS: Heparin Sodium,Porcine 5,000 UNIT/ML VIAL 5000 UNIT SUBCUT ×3 (00:55→21:38)
[2022-01-04] MEDS: Gabapentin 300 MG CAPSULE PO ×4 (00:55→21:38)
--- NOTE | 2022-01-04 01:30 | PC.NURSE ---
hospitalist buddy camp and called for change in pain medication for pt left foot big toe.
--- NOTE | 2022-01-04 02:39 | PC.NURSE ---
pain medication hold up:1 pharmacy called due to medications not crossing over. 2 hospitalist put a order for morphine and pt is allergic to morphine. order was rejected by this rn. 3 pharmacy told about the allergy to morphine and they still want the hospitalist to dc the order. this has not been done yet so another call to pharmacy due to pt is calling out for pain mediction he is seeking for is dilaudid iv. pt medicated with immedi release med. for pain, which the pt states does nothing for him.
[2022-01-04] MEDS: HYDROmorphone HCl 0.5 MG/0.5 ML SYRINGE IVPUSH ×3 (03:13→21:35)
--- NOTE | 2022-01-04 04:48 | PC.NURSE ---
nurse to nurse report given to merly montgomery. pt is to be transfered to [facility].
[2022-01-04] MEDS: Omeprazole 20 MG CAPSULE.DR PO ×2 (06:06→17:18)
--- NOTE | 2022-01-04 06:29 | PC.NURSE ---
Received report from ER nurse and patient arrived on overflow unit around 04:50. Pt A&OX3, pleasant and confused. LS-Dim throughout. Denies cough, sob. Abdomen round. BS+. No c/o N/V. PP+. Left foot/great toe red, warm, swollen. Elevated on pillow and bottom of bed elevated. C/O 8/10 left foot and great toe pain. Pt states his pain does not come down below a 6. Discussed his pain mgmt with him regarding scheduled and prn pain meds and when he was due for them. IV antibiotics as ordered. Will continue to monitor.
[2022-01-04 06:37] LABS: MANUAL DIFF FLAG NO
[2022-01-04 06:43] LABS: Basophils Absolute Auto 0.1 X10*3/uL (0.0-0.2); Basophils Percent Auto 0.6 % (0-2); Eosinophils Absolute Auto 0.1 X10*3/uL (0.0-0.4); Hemoglobin 12.2 g/dl (14.0-18.0); Imm Gran Abs Auto 0.02 X10*3/uL (0.00-0.03); Imm Gran Pct Auto 0.3 % (0.0-0.4); Lymphocytes Absolute Auto 1.7 X10*3/uL (1.2-4.9); Lymphocytes Percent Auto 21.8 % (20-40); Mean Corpuscular Hemoglobin 28.7 pg (27.0-33.0); Mean Corpuscular Volume 87.1 fL (80.0-98.0); Mean Platelet Volume 9.7 fL (9.4-12.4); Monocytes Absolute Auto 0.8 X10*3/uL (0.1-1.2); Monocytes Percent Auto 10.7 % (2-11); Neutrophils Absolute Auto 5.1 x10*3/uL (2.0-8.3); Neutrophils Percent Auto 65.6 % (45-73); Platelet Count 249 X10*3/uL (160-400); Red Blood Count 4.25 X10*6/uL (4.60-5.80); Red Cell Distribution Width 13.2 % (11.0-16.0); White Blood Count 7.8 X10*3/uL (4.8-10.8)
[2022-01-04 06:46] LABS: INTERNATIONAL NORM RATIO 3.2 (0.9-1.1); Prothrombin Time 37.8 SEC (9.9-13.0)
[2022-01-04 07:14] LABS: Anion Gap 12 (12-20); Blood Urea Nitrogen 8 mg/dL (9-16); Calcium 8.4 mg/dL (8.4-10.2); Carbon Dioxide 23 mmol/L (22-29); Chloride 106 mmol/L (96-108); Creatinine Clr Calc Pharmacy 156.7; Estimated Glomerular Filt Rate > 60; Glucose Random 156 mg/dL (60-115); Potassium 3.7 mmol/L (3.3-5.1); Sodium 137 mmol/L (135-145)
[2022-01-04 07:15] LABS: Glucose, Whole Blood 145 mg/dL (60-115)
--- NOTE | 2022-01-04 07:45 | PHA.PROG ---
Admission Date/Time: January 03, 2022 23:10 Indication: Left toe osteomylitis Weight in k.9 kg Adjusted body weight in K.8 KG [place] body weight in K.4 KG Obesity Dosing Indication % IBW: 185 % Serum Creatinine - Last 168 Hours 01/03/22 01/04/22 13:39 06:28 Creatinine 0.78 0.63 Estimated CrCl and GFR - Last 168 Hours 01/03/22 01/04/22 13:39 06:28 Estim Creat Clear Calc 126.6 156.7 Estimated GFR > 60 > 60 Vancomycin Loading Dose: 1750 MG (13 mg/kg) Current Vancomycin Dosing Regimen: 1250 mg Q12H Date and Time for next Vancomycin Level to be drawn: 01/05 @ 0700 Pharmacist Comments on Vancomycin Plan: Patient is morbidly obese therefore requires careful monitoring First dose given in the ED vancomycin 1750 mg on 01/03 @ 4 Maintenance dose vancomycin 1250 mg Q12H to begin on 01/04 @ 0900. Expected AUC 555 with a trough of 15.5 Trough to be drawn prior to 4th dose Pharmacy to monitor renal function daily. Deepti Trinidad PharmD Vancomycin dosing will take advantage of [employer] as a clinical decision support tool that uses Bayesian modeling to calculate individual patient's pharmacokinetic parameters and forecast the patient's drug concentration time course with the target goal AUC 24 range of 400 - 600 mg/L/hr.
[2022-01-04] MEDS: valACYclovir HCL 1,000 MG TABLET 1000 MG PO ×2 (08:07→21:38)
[2022-01-04] MEDS: Insulin Lispro 100 UNIT/ML 3 ML VIAL 30 UNIT SUBCUT ×2 (08:07→18:38)
[2022-01-04] MEDS: Metoprolol Tartrate 25 MG TABLET PO ×2 (08:08→21:38)
[2022-01-04] MEDS: oxyCODONE HCl ER 10 MG TAB.ER.12H 20 MG PO ×2 (08:08→21:37)
[2022-01-04] MEDS: Thiamine HCL 100 MG TABLET PO (08:09)
[2022-01-04] MEDS: Isosorbide Mononitrate 30 MG TAB.ER.24H PO (08:09)
[2022-01-04] MEDS: Loratadine 10 MG TABLET PO (08:09)
[2022-01-04] MEDS: Losartan Potassium 25 MG TABLET PO (08:09)
[2022-01-04] MEDS: Ezetimibe 10 MG TABLET PO (08:09)
[2022-01-04] MEDS: vancomycin HCL 1,250 MG in 0.9 % Sodium Chloride 250 ML 166.67 MG IV ×2 (08:10→21:43)
--- NOTE | 2022-01-04 10:25 | P.CONOP_ITS ---
History of Present Illness [facility] Consult date: 01/04/22 Chief complaint: Osteomyelitis Narrative: Patient presented to the emergency department with a one-week history of left lower extremity pain, erythema and edema. Patient reports that this began with his big toe and then move more proximal. He reports that he had a prior ankle surgery in [place] roughly 6 years ago. He reports at baseline he has no motion of the left ankle or digits since surgery. Review of Systems Review of Systems: Yes all other systems are reviewed and are negative [facility] Past Medical History Medical History (Updated 01/04/22 @ 06:38 by Jacki Colin MD) Asthma Diabetes FHx: bilateral hip replacements Hypertension Family History Family History (Updated 01/04/22 @ 06:35 by Jacki Colin MD) Other No family history of coronary artery disease Surgical History Surgical History (Updated 01/04/22 @ 06:36 by Jacki Colin MD) H/O bilateral hip replacements History of ankle surgery History of back surgery History of neck surgery S/P quadruple vessel bypass Social History Social History (Updated 01/04/22 @ 06:36 by Jacki Colin MD) Alcohol intake: never Patient Tobacco Use Status: Former Tobacco user Use of substances other than those prescribed or required for medical reasons: No Advance Directives: Yes Advance Directives Information Provided: Yes Advance Directives on File: No Meds Allergies Allergy/AdvReac Type Severity Reaction Status Date / Time acetaminophen [From Tylenol] Allergy Intermediate Rash Verified 07/06/21 06:43 morphine AdvReac Intermediate Hallucinati Verified 07/06/21 06:43 ons Active Medications: Current Medications Atorvastatin Calcium (Atorvastatin Calcium 80 Mg Tablet) 80 mg PO BEDTIME [facility] Docusate Sodium (Docusate Sodium 100 Mg Capsule) 100 mg PO DAILY PRN PRN Reason: Constipation Ezetimibe (Ezetimibe 10 Mg Tablet) 10 mg PO DAILY [facility] Last Admin: 01/04/22 08:09 Dose: 10 mg Documented by: Gabapentin (Gabapentin 300 Mg Capsule) 300 mg PO TID [facility] Last Admin: 01/04/22 08:09 Dose: 300 mg Documented by: Heparin Sodium (Porcine) (Heparin Sodium,Porcine 5,000 Unit/Ml Vial) 5,000 unit SUBCUT Q12H [facility] Last Admin: 01/04/22 00:55 Dose: 5,000 unit Documented by: Hydromorphone HCl (Hydromorphone Hcl 0.5 Mg/0.5 Ml Syringe) 0.5 mg IVPUSH Q4H PRN; Protocol PRN Reason: Pain, Severe (Pain Scale 7-10) Last Admin: 01/04/22 03:13 Dose: 0.5 mg Documented by: Hydroxyzine HCl (Hydroxyzine Hcl 10 Mg Tablet) 20 mg PO QID PRN PRN Reason: itch Piperacillin Sod/Tazobactam (Sod 3.375 gm/ Sodium Chloride) 50 mls @ 100 mls/hr IV Q6H [facility] Last Infusion: 01/04/22 06:30 Dose: Infused Documented by: Vancomycin HCl 1,250 mg/ (Sodium Chloride) 250 mls @ 166.667 mls/hr IV Q12H [facility] Last Admin: 01/04/22 08:10 Dose: 166.67 mls/hr Documented by: Insulin Glargine (Insulin Glargine,Hum.Rec.Anlog 100 Unit/Ml 10 Ml Vial) 50 unit SUBCUT DAILY@1200 WILLIAM Insulin Glargine (Insulin Glargine,Hum.Rec.Anlog 100 Unit/Ml 10 Ml Vial) 100 unit SUBCUT BEDTIME [facility] Last Admin: 01/04/22 00:16 Dose: 100 unit Documented by: Insulin Human Lispro (Insulin Lispro 100 Unit/Ml 3 Ml Vial) 30 unit SUBCUT TIDAC [facility] Last Admin: 01/04/22 08:07 Dose: 30 unit Documented by: Isosorbide Mononitrate (Isosorbide Mononitrate 30 Mg Tab.Er.24h) 30 mg PO DAILY [facility]; Protocol Last Admin: 01/04/22 08:09 Dose: 30 mg Documented by: Loratadine (Loratadine 10 Mg Tablet) 10 mg PO DAILY [facility] Last Admin: 01/04/22 08:09 Dose: 10 mg Documented by: Losartan Potassium (Losartan Potassium 25 Mg Tablet) 25 mg PO DAILY [facility]; Protocol Last Admin: 01/04/22 08:09 Dose: 25 mg Documented by: Meclizine HCl (Meclizine Hcl 25 Mg Tablet) 25 mg PO TID PRN PRN Reason: dizziness Metoprolol Tartrate (Metoprolol Tartrate 25 Mg Tablet) 25 mg PO BID [facility]; Protocol Last Admin: 01/04/22 08:08 Dose: 25 mg Documented by: Montelukast Sodium (Montelukast Sodium 10 Mg Tablet) 10 mg PO BEDTIME [facility] Omeprazole (Omeprazole 20 Mg Capsule.Dr) 20 mg PO BID@0630,1630 [facility] Last Admin: 01/04/22 06:06 Dose: 20 mg Documented by: Ondansetron HCl (Ondansetron Hcl 4 Mg/2 Ml Vial) 4 mg IVPUSH Q8H PRN PRN Reason: Nausea and Vomiting Oxycodone HCl (Oxycodone Hcl Immed Release 5 Mg Tablet) 10 mg PO Q4H [facility] Last Admin: 01/04/22 08:08 Dose: 10 mg Documented by: Oxycodone HCl (Oxycodone Hcl Er 10 Mg Tab.Er.12h) 20 mg PO BID [facility] Last Admin: 01/04/22 08:08 Dose: 20 mg Documented by: Pharmacy Consult (Consult Rx Perform Med Rec) 1 each MISCELLANE ONCE PRN PRN Reason: Consult order Pharmacy Consult (Consult Rx Vancomycin Dosing) 1 each MISCELLANE DAILY PRN PRN Reason: Consult order Quetiapine Fumarate (Quetiapine Fumarate 25 Mg Tablet) 12.5 mg PO BEDTIME [facility] Last Admin: 01/04/22 00:17 Dose: 12.5 mg Documented by: Sodium Chloride (0.9 % Sodium Chloride Flush 3 Ml Syringe) 3 ml IVFLUSH QSHIFT [facility] Last Admin: 01/04/22 08:09 Dose: Not Given Documented by: Thiamine HCl (Thiamine Hcl 100 Mg Tablet) 100 mg PO DAILY [facility] Last Admin: 01/04/22 08:09 Dose: 100 mg Documented by: Valacyclovir HCl (Valacyclovir Hcl 1,000 Mg Tablet) 1,000 mg PO BID [facility] Last Admin: 01/04/22 08:07 Dose: 1,000 mg Documented by: Venlafaxine HCl (Venlafaxine Hcl 25 Mg Tablet) 100 mg PO BID [facility] Last Admin: 01/04/22 08:42 Dose: Not Given Documented by: Zolpidem Tartrate (Zolpidem Tartrate 5 Mg Tablet) 10 mg PO BEDTIME PRN PRN Reason: insomnia Home Medications Medication Instructions Recorded Confirmed Last Taken Type ezetimibe 10 mg tablet 1 tab PO DAILY 01/03/22 01/03/22 01/02/22 History gabapentin 300 mg capsule 1 cap PO TID 01/03/22 01/03/22 01/02/22 History hydroxyzine HCl 10 mg tablet 2 tab PO QID PRN 01/03/22 01/03/22 Unknown History insulin glargine 100 unit/mL 50 unit SUBCUT DAILY@1200 01/03/22 01/03/22 01/02/22 History subcutaneous solution (Lantus U-100 Insulin) insulin glargine 100 unit/mL 100 unit SUBCUT BEDTIME 01/03/22 01/03/22 01/02/22 History subcutaneous solution (Lantus U-100 Insulin) insulin lispro 100 unit/mL 30 unit SUBCUT TIDAC 01/03/22 01/03/22 01/02/22 History subcutaneous solution isosorbide mononitrate 30 mg 1 tab PO QAM 01/03/22 01/03/22 01/02/22 History tablet,extended release 24 hr loratadine 10 mg tablet 1 tab PO DAILY 01/03/22 01/03/22 01/02/22 History losartan 25 mg tablet 1 tab PO DAILY 01/03/22 01/03/22 01/02/22 History meclizine 25 mg tablet 1 tab PO TID PRN 01/03/22 01/03/22 Unknown History metoprolol tartrate 25 mg tablet 1 tab PO BID 01/03/22 01/03/22 01/02/22 History montelukast 10 mg tablet 1 tab PO BEDTIME 01/03/22 01/03/22 01/02/22 History ondansetron HCl 4 mg tablet 1 tab PO TID PRN 01/03/22 01/03/22 Unknown History oxycodone 20 mg tablet,crush 1 tab PO BID 01/03/22 01/03/22 01/02/22 History resistant,extended release 12 hr (OxyContin) oxycodone 5 mg tablet 2 tab PO Q4H 01/03/22 01/03/22 01/02/22 History pantoprazole 40 mg tablet,delayed 1 tab PO BID@0630,1630 01/03/22 01/03/22 01/02/22 History release quetiapine 25 mg tablet 0.5 tab PO BEDTIME 01/03/22 01/03/22 01/02/22 History rosuvastatin 40 mg tablet 1 tab PO BEDTIME 01/03/22 01/03/22 01/02/22 History thiamine HCl (vitamin B1) 100 mg 1 tab PO DAILY 01/03/22 01/03/22 01/02/22 History tablet valacyclovir 1 gram tablet 2 tab PO BID 01/03/22 01/03/22 01/02/22 History venlafaxine 100 mg tablet 1 tab PO BID 01/03/22 01/03/22 01/02/22 History warfarin 5 mg tablet 2.5 mg PO MOWESA@1800 01/03/22 01/03/22 01/02/22 History warfarin 5 mg tablet 5 mg PO DAILY@1800 01/03/22 01/03/22 01/02/22 History zolpidem 10 mg tablet 1 tab PO BEDTIME PRN 01/03/22 01/03/22 Unknown History Physical Exam Vital Signs: Vital Signs: Last Vital Signs Temp 98 F 01/04/22 05:03 Pulse 92 01/04/22 08:05 Resp 20 01/04/22 08:05 BP 131/69 01/04/22 08:05 Pulse Ox 98 01/04/22 08:05 BMI result Body Mass Index 41.0 Extrem: Other: Left foot and ankle, diffuse edema. Erythema noted at the 1st toe. Patient is diffusely tender. Patient is unable to flex or extend at the ankle removed any digits in which he reports is baseline since his prior orthopedic surgery. Sensation is intact. Pedal pulse intact. Results Labs Result Diagrams: 01/04/22 06:28 01/04/22 06:28 Labs: Abnormal lab results 01/03/22 01/03/22 01/03/22 Range/Units 13:39 13:39 18:00 WBC 11.9 H (4.8-10.8) X10*3/uL RBC (4.60-5.80) X10*6/uL Hgb 13.8 L (14.0-18.0) g/dl Hct (42.0-52.0) % MCHC 30.7 L (31.0-36.0) g/dl Lymph % (Auto) 19.0 L (20-40) % Abs Immat Gran (auto) 0.04 H (0.00-0.03) X10*3/uL Absolute Neuts (auto) 8.4 H (2.0-8.3) x10*3/uL ESR (0-15) MM/HR PT 35.9 H (9.9-13.0) SEC INR 3.1 H (0.9-1.1) Sodium 131 L (135-145) mmol/L BUN 7 L (9-16) mg/dL POC Glucose (60-115) mg/dL Random Glucose 334 H (60-115) mg/dL C-Reactive Protein (< or = 0.50) mg/dL 01/03/22 01/03/22 01/03/22 Range/Units 18:00 18:28 23:41 WBC (4.8-10.8) X10*3/uL RBC (4.60-5.80) X10*6/uL Hgb (14.0-18.0) g/dl Hct (42.0-52.0) % MCHC (31.0-36.0) g/dl Lymph % (Auto) (20-40) % Abs Immat Gran (auto) (0.00-0.03) X10*3/uL Absolute Neuts (auto) (2.0-8.3) x10*3/uL ESR (0-15) MM/HR PT (9.9-13.0) SEC INR (0.9-1.1) Sodium (135-145) mmol/L BUN (9-16) mg/dL POC Glucose 257 H 208 H (60-115) mg/dL Random Glucose (60-115) mg/dL C-Reactive Protein 16.12 H (< or = 0.50) mg/dL 01/03/22 01/04/22 01/04/22 Range/Units 23:48 06:28 06:28 WBC (4.8-10.8) X10*3/uL RBC 4.25 L (4.60-5.80) X10*6/uL Hgb 12.2 L (14.0-18.0) g/dl Hct 37.0 L (42.0-52.0) % MCHC (31.0-36.0) g/dl Lymph % (Auto) (20-40) % Abs Immat Gran (auto) (0.00-0.03) X10*3/uL Absolute Neuts (auto) (2.0-8.3) x10*3/uL ESR 62 H (0-15) MM/HR PT (9.9-13.0) SEC INR (0.9-1.1) Sodium (135-145) mmol/L BUN 8 L (9-16) mg/dL POC Glucose (60-115) mg/dL Random Glucose 156 H D (60-115) mg/dL C-Reactive Protein (< or = 0.50) mg/dL 01/04/22 01/04/22 Range/Units 06:28 07:12 WBC (4.8-10.8) X10*3/uL RBC (4.60-5.80) X10*6/uL Hgb (14.0-18.0) g/dl Hct (42.0-52.0) % MCHC (31.0-36.0) g/dl Lymph % (Auto) (20-40) % Abs Immat Gran (auto) (0.00-0.03) X10*3/uL Absolute Neuts (auto) (2.0-8.3) x10*3/uL ESR (0-15) MM/HR PT 37.8 H (9.9-13.0) SEC INR 3.2 H (0.9-1.1) Sodium (135-145) mmol/L BUN (9-16) mg/dL POC Glucose 145 H (60-115) mg/dL Random Glucose (60-115) mg/dL C-Reactive Protein (< or = 0.50) mg/dL H & H 01/03/22 01/04/22 Range/Units 13:39 06:28 Hgb 13.8 L 12.2 L (14.0-18.0) g/dl Hct 44.9 37.0 L (42.0-52.0) % Coagulation 01/03/22 01/04/22 Range/Units 18:00 06:28 INR 3.1 H 3.2 H (0.9-1.1) All other labs normal. Assessment and Plan (1) Orthopedic hardware present: Status: Acute (2) Osteomyelitis: Status: Acute (3) Cellulitis: Status: Acute Plan Mr. Collazo is a 61-year-old male who presented to the emergency department with a one-week history of left lower extremity pain, erythema and edema. Patient reports that this began with his big toe and then move more proximal. He reports that he had a prior ankle surgery in [place] roughly 6 years ago. He reports at baseline he has no motion of the left ankle or digits since surgery. CT scan of the left foot reveals osteomyelitis of the 1st toe distal phalanx. There is jacob hardware lucency in the talus as well as irregularity of the cortex which may be suggestive of infection. This is likely chronic in nature therefore the patient should continue with IV antibiotics per Medicine. The case was discussed with Dr. Nesbitt who is in agreement. Patient may follow up outpatient for further evaluation and treatment. Procedures Date of Service Date of Service: 01/04/22
--- NOTE | 2022-01-04 11:04 | PC.NURSE ---
Pt resting in hospital bed, pt snoring, upon awakening, pt c/o pain. Pt requesting pain meds around the clock. At one point pt crying in the bed after RN had given pt his scheduled pain meds. PRN dilaudid provided instant relief upon pushing pain meds per pt. LLE is red and tender to touch. Swelling also present. IV abx and meds given per DEC. is at bedside.
[2022-01-04] MEDS: LORazepam 2 MG/ML VIAL 1 MG IVPUSH (12:08)
[2022-01-04 12:14] LABS: Glucose, Whole Blood 60 mg/dL (60-115)
--- NOTE | 2022-01-04 12:41 | MHC.CM.PN ---
CM ATTEMPTED TO MEET WITH PT WHO WAS SLEEPY DUE TO RECEIVING ATIVAN CM MET WITH PTS WHO WAS AT BEDSIDE SHE REPORTS PT IS INDEPENDENT AT BASELINE, HAS NO SERVICES AND NO DME SHE REPORTS SHE IS THE PTS HCP, COPY REQUESTED SHE CONFIRMS PT S PCP IS RUSH MELENDEZ SHE SAYS PT IS A BUT IS NOT CONNECTED PER , PT IS COVID VACCINATED X 3 WITH [[facility]. PTS REPORTS THEY WOULD PREFER ANY REQUIRED AFTERCARE BE COMPLETED AT HOME. SHE REPORTS IF THE PT REQUIRES IV ABX, SHE FEELS MORE THAN COMFORTABLE ASSISTING REFERRALS PLACED FOR [facility] PER DISCUSSION WITH PTS CURRENTLY DC PLAN IS TBD HOME VS HOME WITH SERVICES TO TRANSPORT
[2022-01-04] MEDS: Insulin Glargine,Hum.rec.anlog 100 UNIT/ML 10 ML VIAL 50 UNIT SUBCUT (13:56)
--- NOTE | 2022-01-04 15:47 | P.PNIM_ITS ---
Subjective Subjective Date of Service: 01/04/22 Interval History: States toe painful overnight. No fever chills Review of Systems Denies chest pain Denies shortness of breath Denies nausea vomiting diarrhea Admits to pain left great toe Physical Exam Vital Signs: Vital Signs: Last Vital Signs Temp 98.3 F 01/04/22 14:03 Pulse 71 01/04/22 14:03 Resp 16 01/04/22 14:03 BP 138/69 01/04/22 14:03 Pulse Ox 95 01/04/22 14:03 BMI result Body Mass Index 41.0 Const: Other: Awake alert oriented x3 no acute distress; uncomfortable secondary to pain Resp: Other: Clear to auscultation bilaterally no rales rhonchi or wheezes Cardio: Other: No S4; positive S1-S2; no S3 murmurs rubs or gallops GI: Other: Soft nontender nondistended with normoactive bowel sounds Extrem: Other: Left great toe and dorsum of left foot erythematous and painful to touch. Objective Data Active Medications Atorvastatin Calcium (Atorvastatin Calcium 80 Mg Tablet) 80 mg PO BEDTIME [facility] Docusate Sodium (Docusate Sodium 100 Mg Capsule) 100 mg PO DAILY PRN PRN Reason: Constipation Ezetimibe (Ezetimibe 10 Mg Tablet) 10 mg PO DAILY [facility] Last Admin: 01/04/22 08:09 Dose: 10 mg Documented by: BRENNA Gabapentin (Gabapentin 300 Mg Capsule) 300 mg PO TID [facility] Last Admin: 01/04/22 08:09 Dose: 300 mg Documented by: BRENNA Heparin Sodium (Porcine) (Heparin Sodium,Porcine 5,000 Unit/Ml Vial) 5,000 unit SUBCUT Q12H [facility] Last Admin: 01/04/22 10:30 Dose: 5,000 unit Documented by: BRENNA Hydromorphone HCl (Hydromorphone Hcl 0.5 Mg/0.5 Ml Syringe) 0.5 mg IVPUSH Q4H PRN; Protocol PRN Reason: Pain, Severe (Pain Scale 7-10) Last Admin: 01/04/22 10:30 Dose: 0.5 mg Documented by: BRENNA Hydroxyzine HCl (Hydroxyzine Hcl 10 Mg Tablet) 20 mg PO QID PRN PRN Reason: itch Piperacillin Sod/Tazobactam (Sod 3.375 gm/ Sodium Chloride) 50 mls @ 100 mls/hr IV Q6H [facility] Last Infusion: 01/04/22 11:04 Dose: 0 mls/hr Documented by: BRENNA Vancomycin HCl 1,250 mg/ (Sodium Chloride) 250 mls @ 166.667 mls/hr IV Q12H [facility] Last Infusion: 01/04/22 09:40 Dose: 0 mls/hr Documented by: BRENNA Insulin Glargine (Insulin Glargine,Hum.Rec.Anlog 100 Unit/Ml 10 Ml Vial) 50 unit SUBCUT DAILY@1200 [facility] Last Admin: 01/04/22 13:56 Dose: 50 unit Documented by: BRENNA Insulin Glargine (Insulin Glargine,Hum.Rec.Anlog 100 Unit/Ml 10 Ml Vial) 100 un it SUBCUT BEDTIME [facility] Last Admin: 01/04/22 00:16 Dose: 100 unit Documented by: PHONG Insulin Human Lispro (Insulin Lispro 100 Unit/Ml 3 Ml Vial) 30 unit SUBCUT TIDAC [facility] Last Admin: 01/04/22 12:20 Dose: Not Given Documented by: BRENNA Non-Admin Reason: See Note Isosorbide Mononitrate (Isosorbide Mononitrate 30 Mg Tab.Er.24h) 30 mg PO DAILY [facility]; Protocol Last Admin: 01/04/22 08:09 Dose: 30 mg Documented by: BRENNA Loratadine (Loratadine 10 Mg Tablet) 10 mg PO DAILY [facility] Last Admin: 01/04/22 08:09 Dose: 10 mg Documented by: BRENNA Losartan Potassium (Losartan Potassium 25 Mg Tablet) 25 mg PO DAILY [facility]; Protocol Last Admin: 01/04/22 08:09 Dose: 25 mg Documented by: BRENNA Meclizine HCl (Meclizine Hcl 25 Mg Tablet) 25 mg PO TID PRN PRN Reason: dizziness Metoprolol Tartrate (Metoprolol Tartrate 25 Mg Tablet) 25 mg PO BID [facility]; Protocol Last Admin: 01/04/22 08:08 Dose: 25 mg Documented by: BRENNA Montelukast Sodium (Montelukast Sodium 10 Mg Tablet) 10 mg PO BEDTIME [facility] Omeprazole (Omeprazole 20 Mg Capsule.Dr) 20 mg PO BID@0630,1630 [facility] Last Admin: 01/04/22 06:06 Dose: 20 mg Documented by: FILEMON Ondansetron HCl (Ondansetron Hcl 4 Mg/2 Ml Vial) 4 mg IVPUSH Q8H PRN PRN Reason: Nausea and Vomiting Oxycodone HCl (Oxycodone Hcl Immed Release 5 Mg Tablet) 10 mg PO Q4H [facility] Last Admin: 01/04/22 12:08 Dose: 10 mg Documented by: BRENNA Oxycodone HCl (Oxycodone Hcl Er 10 Mg Tab.Er.12h) 20 mg PO BID [facility] Last Admin: 01/04/22 08:08 Dose: 20 mg Documented by: BRENNA Pharmacy Consult (Consult Rx Perform Med Rec) 1 each MISCELLANE ONCE PRN PRN Reason: Consult order Pharmacy Consult (Consult Rx Vancomycin Dosing) 1 each MISCELLANE DAILY PRN PRN Reason: Consult order Quetiapine Fumarate (Quetiapine Fumarate 25 Mg Tablet) 12.5 mg PO BEDTIME [facility] Last Admin: 01/04/22 00:17 Dose: 12.5 mg Documented by: MCTA Sodium Chloride (0.9 % Sodium Chloride Flush 3 Ml Syringe) 3 ml IVFLUSH QSHIFT [facility] Last Admin: 01/04/22 08:09 Dose: Not Given Documented by: BRENNA Non-Admin Reason: Med Not Available Thiamine HCl (Thiamine Hcl 100 Mg Tablet) 100 mg PO DAILY [facility] Last Admin: 01/04/22 08:09 Dose: 100 mg Documented by: BRENNA Valacyclovir HCl (Valacyclovir Hcl 1,000 Mg Tablet) 1,000 mg PO BID [facility] Last Admin: 01/04/22 08:07 Dose: 1,000 mg Documented by: BRENNA Venlafaxine HCl (Venlafaxine Hcl 25 Mg Tablet) 100 mg PO BID [facility] Last Admin: 01/04/22 08:42 Dose: Not Given Documented by: BRENNA Non-Admin Reason: Med Not Available Zolpidem Tartrate (Zolpidem Tartrate 5 Mg Tablet) 10 mg PO BEDTIME PRN PRN Reason: insomnia Labs CBC & Chem 7: 01/04/22 06:28 01/04/22 06:28 Labs: Laboratory Results - last 24 hr 01/03/22 01/03/22 01/03/22 18:00 18:00 18:00 MCV MCH MCHC RDW Plt Count MPV Immature Gran % (Auto) Neut % (Auto) Lymph % (Auto) [place] % (Auto) Eos % (Auto) Baso % (Auto) Lymph # (Auto) [place] # (Auto) Eos # (Auto) Baso # (Auto) Abs Immat Gran (auto) Absolute Neuts (auto) Absolute Nucleated RBC Nucleated RBC % (auto) ESR PT 35.9 H INR 3.1 H Anion Gap Estim Creat Clear Calc Estimated GFR POC Glucose Random Glucose Lactic Acid 1.7 Uric Acid 3.7 Calcium Magnesium 2.3 Total Bilirubin 0.8 Direct Bilirubin 0.3 AST 10 ALT 7 Alkaline Phosphatase 80 C-Reactive Protein 16.12 H Total Protein 6.8 Albumin 3.9 COVID-19 ([facility]) [email or web address] 01/03/22 01/03/22 01/03/22 18:00 18:28 23:41 MCV MCH MCHC RDW Plt Count MPV Immature Gran % (Auto) Neut % (Auto) Lymph % (Auto) [place] % (Auto) Eos % (Auto) Baso % (Auto) Lymph # (Auto) [place] # (Auto) Eos # (Auto) Baso # (Auto) Abs Immat Gran (auto) Absolute Neuts (auto) Absolute Nucleated RBC Nucleated RBC % (auto) ESR PT INR Anion Gap Estim Creat Clear Calc Estimated GFR POC Glucose 257 H 208 H Random Glucose Lactic Acid Uric Acid Calcium Magnesium Total Bilirubin Direct Bilirubin AST ALT Alkaline Phosphatase C-Reactive Protein Total Protein Albumin COVID-19 ([facility]) Negative [email or web address] See Note 01/03/22 01/04/22 01/04/22 23:48 06:28 06:28 MCV 87.1 D MCH 28.7 MCHC 33.0 RDW 13.2 Plt Count 249 MPV 9.7 Immature Gran % (Auto) 0.3 Neut % (Auto) 65.6 Lymph % (Auto) 21.8 [place] % (Auto) 10.7 Eos % (Auto) 1.0 Baso % (Auto) 0.6 Lymph # (Auto) 1.7 [place] # (Auto) 0.8 Eos # (Auto) 0.1 Baso # (Auto) 0.1 Abs Immat Gran (auto) 0.02 Absolute Neuts (auto) 5.1 Absolute Nucleated RBC 0.000 Nucleated RBC % (auto) 0.0 ESR 62 H PT INR Anion Gap 12 Estim Creat Clear Calc 156.7 Estimated GFR > 60 POC Glucose Random Glucose 156 H D Lactic Acid Uric Acid Calcium 8.4 Magnesium Total Bilirubin Direct Bilirubin AST ALT Alkaline Phosphatase C-Reactive Protein Total Protein Albumin COVID-19 ([facility]) COVID-19 Clin Com 01/04/22 01/04/22 01/04/22 06:28 07:12 12:06 MCV MCH MCHC RDW Plt Count MPV Immature Gran % (Auto) Neut % (Auto) Lymph % (Auto) [place] % (Auto) Eos % (Auto) Baso % (Auto) Lymph # (Auto) [place] # (Auto) Eos # (Auto) Baso # (Auto) Abs Immat Gran (auto) Absolute Neuts (auto) Absolute Nucleated RBC Nucleated RBC % (auto) ESR PT 37.8 H INR 3.2 H Anion Gap Estim Creat Clear Calc Estimated GFR POC Glucose 145 H 60 Random Glucose Lactic Acid Uric Acid Calcium Magnesium Total Bilirubin Direct Bilirubin AST ALT Alkaline Phosphatase C-Reactive Protein Total Protein Albumin COVID-19 ([facility]) COVID-19 Clin Com Assessment and Plan (1) Osteomyelitis: Status: Acute (2) Cellulitis: Status: Acute (3) DMII (diabetes mellitus, type 2): Status: Acute Plan 61-year-old male with past medical history of diabetes, coronary artery disease who presents to the hospital with complaints of left toe pain found to have osteomyelitis 1.Left toe acute osteomyelitis/cellulitis -confirmed by MRI -continue vancomycin and Zosyn pending cultures -ID consult/surgical consult pending -will likely need PICC line prior to discharge 2. 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 Also needs close monitoring of renal function with same given history of diabetes Quality Stroke Does the patient have a stroke diagnosis?: No VTE Prior VTE?: No VTE Risk Level:: Medical - moderate - high VTE Device Contraindication: Treatment Not Indicated VTE Drug Contraindication: N/A - Med Ordered
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
[2022-01-04 18:08] LABS: Glucose, Whole Blood 135 mg/dL (60-115)
[2022-01-04 21:37] LABS: Glucose, Whole Blood 63 mg/dL (60-115)
[2022-01-04] MEDS: Venlafaxine HCL 25 MG TABLET 100 MG PO (21:37)
[2022-01-04] MEDS: Montelukast Sodium 10 MG TABLET PO (21:38)
[2022-01-04] MEDS: Atorvastatin Calcium 80 MG TABLET PO (21:38)
[2022-01-04] MEDS: Zolpidem Tartrate 5 MG TABLET 10 MG PO (23:24)
[2022-01-04] MEDS: 0.9 % Sodium Chloride Flush 3 ML SYRINGE IVFLUSH (23:24)
[2022-01-05] VITALS (9 sets, daily range): BP systolic 105–128; BP diastolic 50–66; PULSE 75–90; RESP 14–20; TEMP 36.1–36.6; O2SAT 93–98
[2022-01-05] MEDS: oxyCODONE HCl Immed Release 5 MG TABLET 10 MG PO ×6 (03:50→23:24)
[2022-01-05] MEDS: HYDROmorphone HCl 0.5 MG/0.5 ML SYRINGE IVPUSH ×5 (04:33→21:39)
[2022-01-05] MEDS: Piperacillin Sodium/Tazobactam 3.375 GM in 0.9 % Sodium Chloride 50 ML IV ×4 (04:33→21:38)
[2022-01-05] MEDS: Omeprazole 20 MG CAPSULE.DR PO ×2 (04:35→15:31)
[2022-01-05 07:26] LABS: Creatinine Clr Calc Pharmacy 139.8; Estimated Glomerular Filt Rate > 60
[2022-01-05 07:38] LABS: Vancomycin Trough 11.1 mcg/mL (10.0-20.0)
[2022-01-05 07:48] LABS: Glucose, Whole Blood 70 mg/dL (60-115)
[2022-01-05] MEDS: Meclizine HCl 25 MG TABLET PO (08:38)
[2022-01-05] MEDS: Ezetimibe 10 MG TABLET PO (08:38)
[2022-01-05] MEDS: Loratadine 10 MG TABLET PO (08:38)
[2022-01-05] MEDS: valACYclovir HCL 1,000 MG TABLET 1000 MG PO ×2 (08:38→19:51)
[2022-01-05] MEDS: Metoprolol Tartrate 25 MG TABLET PO ×2 (08:38→19:51)
[2022-01-05] MEDS: 0.9 % Sodium Chloride Flush 3 ML SYRINGE IVFLUSH ×3 (08:38→21:43)
[2022-01-05] MEDS: hydrOXYzine HCL 10 MG TABLET 20 MG PO (08:38)
[2022-01-05] MEDS: Isosorbide Mononitrate 30 MG TAB.ER.24H PO (08:38)
[2022-01-05] MEDS: Venlafaxine HCL 25 MG TABLET 100 MG PO ×2 (08:38→19:51)
[2022-01-05] MEDS: Gabapentin 300 MG CAPSULE PO ×3 (08:38→19:51)
[2022-01-05] MEDS: Thiamine HCL 100 MG TABLET PO (08:38)
[2022-01-05] MEDS: oxyCODONE HCl ER 10 MG TAB.ER.12H 20 MG PO ×2 (08:39→19:50)
[2022-01-05] MEDS: Losartan Potassium 25 MG TABLET PO (08:39)
[2022-01-05] MEDS: vancomycin HCL 1,250 MG in 0.9 % Sodium Chloride 250 ML 166.67 MG IV ×2 (08:45→20:00)
--- NOTE | 2022-01-05 08:52 | MHC.CM.PN ---
EMR REVIEWED, PT HAS L FOOT OSTEO AND ABSCESS, [facility] AND [facility] REFERRALS UPDATED AND HAVE REQUESTED [facility] DO A TEACH ON Friday01/07/22, [facility] NOTIFIED PT WILL NEED START OF CARE ON Friday01/08/22, CM WILL CONT TO FOLLOW D/C NEEDS.
--- NOTE | 2022-01-05 10:29 | HE.PHANOTE ---
vancomycin addendum: trough came back at 11.1, scr steady, maintain same dose predicted auc [phone]
[2022-01-05 11:15] LABS: Glucose, Whole Blood 84 mg/dL (60-115)
[2022-01-05] MEDS: Heparin Sodium,Porcine 5,000 UNIT/ML VIAL 5000 UNIT SUBCUT ×2 (11:34→21:43)
--- NOTE | 2022-01-05 13:04 | P.PNIM_ITS ---
Subjective Subjective Date of Service: 01/05/22 Interval History: States toe painful overnight. No fever chills Review of Systems Denies chest pain Denies shortness of breath Denies nausea vomiting diarrhea Admits to pain left great toe Physical Exam Vital Signs: Vital Signs: Last Vital Signs Temp 97 F 01/05/22 11:07 Pulse 76 01/05/22 11:07 Resp 18 01/05/22 12:30 BP 106/55 L 01/05/22 11:07 Pulse Ox 98 01/05/22 11:07 BMI result Body Mass Index 41.0 Const: Other: Awake alert oriented x3 no acute distress; uncomfortable secondary to pain Resp: Other: Clear to auscultation bilaterally no rales rhonchi or wheezes Cardio: Other: No S4; positive S1-S2; no S3 murmurs rubs or gallops GI: Other: Soft nontender nondistended with normoactive bowel sounds Extrem: Other: Left great toe and dorsum of left foot erythematous and painful to touch. Objective Data Active Medications Atorvastatin Calcium (Atorvastatin Calcium 80 Mg Tablet) 80 mg PO BEDTIME [facility] Last Admin: 01/04/22 21:38 Dose: 80 mg Documented by: EWA Docusate Sodium (Docusate Sodium 100 Mg Capsule) 100 mg PO DAILY PRN PRN Reason: Constipation Ezetimibe (Ezetimibe 10 Mg Tablet) 10 mg PO DAILY [facility] Last Admin: 01/05/22 08:38 Dose: 10 mg Documented by: COTEMA Gabapentin (Gabapentin 300 Mg Capsule) 300 mg PO TID [facility] Last Admin: 01/05/22 08:38 Dose: 300 mg Documented by: COTEMA Heparin Sodium (Porcine) (Heparin Sodium,Porcine 5,000 Unit/Ml Vial) 5,000 unit SUBCUT Q12H [facility] Last Admin: 01/05/22 11:34 Dose: 5,000 unit Documented by: NELSONEMA Hydromorphone HCl (Hydromorphone Hcl 0.5 Mg/0.5 Ml Syringe) 0.5 mg IVPUSH Q4H PRN; Protocol PRN Reason: Pain, Severe (Pain Scale 7-10) Last Admin: 01/05/22 12:30 Dose: 0.5 mg Documented by: NELSONEMA Hydroxyzine HCl (Hydroxyzine Hcl 10 Mg Tablet) 20 mg PO QID PRN PRN Reason: itch Last Admin: 01/05/22 08:38 Dose: 20 mg Documented by: CAMILO Piperacillin Sod/Tazobactam (Sod 3.375 gm/ Sodium Chloride) 50 mls @ 100 mls/hr IV Q6H [facility] Last Infusion: 01/05/22 12:09 Dose: 0 mls/hr Documented by: CAMILO Vancomycin HCl 1,250 mg/ (Sodium Chloride) 250 mls @ 166.667 mls/hr IV Q12H [facility] Last Infusion: 01/05/22 10:22 Dose: 0 mls/hr Documented by: CAMILO Insulin Glargine (Insulin Glargine,Hum.Rec.Anlog 100 Unit/Ml 10 Ml Vial) 50 unit SUBCUT DAILY@1200 [facility] Last Admin: 01/05/22 11:22 Dose: Not Given Documented by: CAMILO Non-Admin Reason: low POC @ 84 Insulin Glargine (Insulin Glargine,Hum.Rec.Anlog 100 Unit/Ml 10 Ml Vial) 100 unit SUBCUT BEDTIME [facility] Last Admin: 01/04/22 21:40 Dose: Not Given Documented by: EWA Non-Admin Reason: bs low, pt drinking oj Insulin Human Lispro (Insulin Lispro 100 Unit/Ml 3 Ml Vial) 30 unit SUBCUT TIDAC [facility] Last Admin: 01/05/22 11:21 Dose: Not Given Documented by: CAMILO Non-Admin Reason: POC of 84 Isosorbide Mononitrate (Isosorbide Mononitrate 30 Mg Tab.Er.24h) 30 mg PO DAILY [facility]; Protocol Last Admin: 01/05/22 08:38 Dose: 30 mg Documented by: CAMILO Loratadine (Loratadine 10 Mg Tablet) 10 mg PO DAILY [facility] Last Admin: 01/05/22 08:38 Dose: 10 mg Documented by: CAMILO Losartan Potassium (Losartan Potassium 25 Mg Tablet) 25 mg PO DAILY [facility]; Protocol Last Admin: 01/05/22 08:39 Dose: 25 mg Documented by: CAMILO Meclizine HCl (Meclizine Hcl 25 Mg Tablet) 25 mg PO TID PRN PRN Reason: dizziness Last Admin: 01/05/22 08:38 Dose: 25 mg Documented by: CAMILO Metoprolol Tartrate (Metoprolol Tartrate 25 Mg Tablet) 25 mg PO BID [facility]; Protocol Last Admin: 01/05/22 08:38 Dose: 25 mg Documented by: CAMILO Montelukast Sodium (Montelukast Sodium 10 Mg Tablet) 10 mg PO BEDTIME [facility] Last Admin: 01/04/22 21:38 Dose: 10 mg Documented by: EWA Omeprazole (Omeprazole 20 Mg Capsule.Dr) 20 mg PO BID@0630,1630 [facility] Last Admin: 01/05/22 04:35 Dose: 20 mg Documented by: EWA Ondansetron HCl (Ondansetron Hcl 4 Mg/2 Ml Vial) 4 mg IVPUSH Q8H PRN PRN Reason: Nausea and Vomiting Oxycodone HCl (Oxycodone Hcl Immed Release 5 Mg Tablet) 10 mg PO Q4H [facility] Last Admin: 01/05/22 11:34 Dose: 10 mg Documented by: CAMILO Oxycodone HCl (Oxycodone Hcl Er 10 Mg Tab.Er.12h) 20 mg PO BID [facility] Last Admin: 01/05/22 08:39 Dose: 20 mg Documented by: CAMILO Pharmacy Consult (Consult Rx Perform Med Rec) 1 each MISCELLANE ONCE PRN PRN Reason: Consult order Pharmacy Consult (Consult Rx Vancomycin Dosing) 1 each MISCELLANE DAILY PRN PRN Reason: Consult order Quetiapine Fumarate (Quetiapine Fumarate 25 Mg Tablet) 12.5 mg PO BEDTIME [facility] Last Admin: 01/04/22 21:38 Dose: 12.5 mg Documented by: EWA Sodium Chloride (0.9 % Sodium Chloride Flush 3 Ml Syringe) 3 ml IVFLUSH QSHIFT [facility] Last Admin: 01/05/22 08:38 Dose: 3 ml Documented by: NELSONEMA Thiamine HCl (Thiamine Hcl 100 Mg Tablet) 100 mg PO DAILY [facility] Last Admin: 01/05/22 08:38 Dose: 100 mg Documented by: NELSONEMA Valacyclovir HCl (Valacyclovir Hcl 1,000 Mg Tablet) 1,000 mg PO BID [facility] Last Admin: 01/05/22 08:38 Dose: 1,000 mg Documented by: NELSONEMA Venlafaxine HCl (Venlafaxine Hcl 25 Mg Tablet) 100 mg PO BID [facility] Last Admin: 01/05/22 08:38 Dose: 100 mg Documented by: COTEMA Zolpidem Tartrate (Zolpidem Tartrate 5 Mg Tablet) 10 mg PO BEDTIME PRN PRN Reason: insomnia Last Admin: 01/04/22 23:24 Dose: 10 mg Documented by: EWA Labs CBC & Chem 7: 01/04/22 06:28 01/05/22 06:50 Labs: Laboratory Results - last 24 hr 01/04/22 01/04/22 01/05/22 18:04 21:33 06:50 Estim Creat Clear Calc 139.8 Estimated GFR > 60 POC Glucose 135 H 63 Vancomycin Trough 01/05/22 01/05/22 01/05/22 06:50 07:44 11:07 Estim Creat Clear Calc Estimated GFR POC Glucose 70 84 Vancomycin Trough 11.1 Microbiology Microbiology Results: Microbiology 01/03/22 19:59 Blood Culture - Preliminary Blood - Venous No growth after 24 hours. 01/03/22 18:00 Blood Culture - Preliminary Blood - Venous No growth after 24 hours. Assessment and Plan (1) Osteomyelitis: Status: Acute (2) DMII (diabetes mellitus, type 2): Status: Acute (3) Hypertension: Status: Acute Plan 61-year-old male with past medical history of diabetes, coronary artery disease who presents to the hospital with complaints of left toe pain found to have osteomyelitis 1.Left toe acute osteomyelitis/cellulitis -continue vancomycin and Zosyn()..PICC line pending cultures -BCs neg x 24 HRS 2. DMII (requiring insulin) - resume his home insulin - sliding scale insulin, diabetic diet 3.Coronary artery disease - continue metoprolol, and warfarin - does not appear to be on aspirin 4.Hyperprothrombinemia -hold today..INR 3.2 -recheck in am..dose as indicated 5.Hypertension - acceptable control on current therapies DVT prophylaxis: Lovenox Full Code Requires inpatient hospitalization secondary to need for IV antibiotics for osteomyelitis; PICC line pending negative cultures. Also needs close monitoring of renal function with same given history of diabetes Quality Stroke Does the patient have a stroke diagnosis?: No VTE Prior VTE?: No VTE Risk Level:: Medical - moderate - high VTE Device Contraindication: Treatment Not Indicated VTE Drug Contraindication: N/A - Med Ordered
[2022-01-05 14:10] LABS: INTERNATIONAL NORM RATIO 2.3 (0.9-1.1); Prothrombin Time 26.7 SEC (9.9-13.0)
[2022-01-05 16:13] LABS: Glucose, Whole Blood 111 mg/dL (60-115)
[2022-01-05] MEDS: Atorvastatin Calcium 80 MG TABLET PO (19:51)
[2022-01-05] MEDS: Montelukast Sodium 10 MG TABLET PO (19:51)
[2022-01-05] MEDS: QUEtiapine Fumarate 25 MG TABLET 12.5 MG PO (19:52)
[2022-01-05 20:07] LABS: Glucose, Whole Blood 136 mg/dL (60-115)
[2022-01-05] MEDS: Insulin Glargine,Hum.rec.anlog 100 UNIT/ML 10 ML VIAL SUBCUT (21:42)
[2022-01-05 21:43] LABS: Glucose, Whole Blood 214 mg/dL (60-115)
[2022-01-05] MEDS: Zolpidem Tartrate 5 MG TABLET 10 MG PO (23:24)
[2022-01-06] VITALS (8 sets, daily range): BP systolic 106–126; BP diastolic 51–62; PULSE 72–84; RESP 17–85; TEMP 36–37.1; O2SAT 92–97
[2022-01-06] MEDS: HYDROmorphone HCl 0.5 MG/0.5 ML SYRINGE IVPUSH (01:15)
[2022-01-06] MEDS: oxyCODONE HCl Immed Release 5 MG TABLET 10 MG PO ×6 (03:33→23:41)
[2022-01-06] MEDS: Omeprazole 20 MG CAPSULE.DR PO ×2 (06:22→15:59)
[2022-01-06 06:25] LABS: MANUAL DIFF FLAG NO
[2022-01-06] MEDS: Piperacillin Sodium/Tazobactam 3.375 GM in 0.9 % Sodium Chloride 50 ML IV ×4 (06:25→23:41)
[2022-01-06 06:50] LABS: Basophils Percent Auto 0.5 % (0-2); Eosinophils Absolute Auto 0.1 X10*3/uL (0.0-0.4); Eosinophils Percent Auto 1.4 % (0-4); Hemoglobin 11.1 g/dl (14.0-18.0); Imm Gran Abs Auto 0.02 X10*3/uL (0.00-0.03); Imm Gran Pct Auto 0.3 % (0.0-0.4); Lymphocytes Absolute Auto 1.6 X10*3/uL (1.2-4.9); Lymphocytes Percent Auto 20.1 % (20-40); Mean Corpuscular HGB Conc 30.8 g/dl (31.0-36.0); Mean Corpuscular Hemoglobin 27.7 pg (27.0-33.0); Mean Corpuscular Volume 89.8 fL (80.0-98.0); Mean Platelet Volume 9.6 fL (9.4-12.4); Monocytes Percent Auto 12.6 % (2-11); Neutrophils Absolute Auto 5.2 x10*3/uL (2.0-8.3); Neutrophils Percent Auto 65.1 % (45-73); Platelet Count 274 X10*3/uL (160-400); Red Blood Count 4.01 X10*6/uL (4.60-5.80); White Blood Count 7.9 X10*3/uL (4.8-10.8)
[2022-01-06 06:54] LABS: Alanine Aminotransferase 11 U/L (0-40); Albumin Level 3.2 g/dL (3.5-5.0); Alkaline Phosphatase 83 U/L (39-117); Anion Gap 11 (12-20); Aspartate Amino Transferase 18 U/L (5-37); Bilirubin Total 0.4 mg/dL (0.0-1.0); Blood Urea Nitrogen 10 mg/dL (9-16); Calcium 8.6 mg/dL (8.4-10.2); Carbon Dioxide 26 mmol/L (22-29); Chloride 105 mmol/L (96-108); Creatinine Clr Calc Pharmacy 108.3; Estimated Glomerular Filt Rate > 60; Glucose Fasting 103 mg/dL (60-99); Potassium 4.1 mmol/L (3.3-5.1); Sodium 138 mmol/L (135-145); Total Protein 5.6 g/dL (6.5-8.0)
[2022-01-06 07:09] LABS: Glucose, Whole Blood 77 mg/dL (60-115)
--- NOTE | 2022-01-06 07:53 | HE.PHANOTE ---
VANCOMYCIN DOSING ADDENDUM: Patient Scr is 0.93 today, we will continue regimen of 1250 mg Q12H. Next trough due to be drawn 01/06 @ 1900.
[2022-01-06] MEDS: Ezetimibe 10 MG TABLET PO (09:05)
[2022-01-06] MEDS: 0.9 % Sodium Chloride Flush 3 ML SYRINGE IVFLUSH ×3 (09:05→21:25)
[2022-01-06] MEDS: valACYclovir HCL 1,000 MG TABLET 1000 MG PO ×2 (09:05→20:56)
[2022-01-06] MEDS: Loratadine 10 MG TABLET PO (09:05)
[2022-01-06] MEDS: HYDROmorphone HCl 1 MG/ML SYRINGE IVPUSH ×4 (09:05→21:25)
[2022-01-06] MEDS: Metoprolol Tartrate 25 MG TABLET PO ×2 (09:06→20:56)
[2022-01-06] MEDS: Losartan Potassium 25 MG TABLET PO (09:06)
[2022-01-06] MEDS: Isosorbide Mononitrate 30 MG TAB.ER.24H PO (09:06)
[2022-01-06] MEDS: Gabapentin 300 MG CAPSULE PO ×3 (09:06→20:57)
[2022-01-06] MEDS: vancomycin HCL 1,250 MG in 0.9 % Sodium Chloride 250 ML 166.67 MG IV (09:06)
[2022-01-06] MEDS: oxyCODONE HCl ER 10 MG TAB.ER.12H 20 MG PO ×2 (09:06→20:56)
[2022-01-06] MEDS: Thiamine HCL 100 MG TABLET PO (09:06)
[2022-01-06] MEDS: Venlafaxine HCL 25 MG TABLET 100 MG PO ×2 (09:06→20:57)
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
--- NOTE | 2022-01-06 10:56 | P.PNIM_ITS ---
Subjective Subjective Date of Service: 01/06/22 Interval History: States toe painful overnight. No fever chills Review of Systems Denies chest pain Denies shortness of breath Denies nausea vomiting diarrhea Admits to pain left great toe Physical Exam Vital Signs: Vital Signs: Last Vital Signs Temp 97 F 01/06/22 07:02 Pulse 84 01/06/22 07:02 Resp 18 01/06/22 09:05 BP 126/62 01/06/22 07:02 Pulse Ox 97 01/06/22 07:02 BMI result Body Mass Index 41.0 Const: Other: Awake alert oriented x3 no acute distress; uncomfortable secondary to pain Resp: Other: Clear to auscultation bilaterally no rales rhonchi or wheezes Cardio: Other: No S4; positive S1-S2; no S3 murmurs rubs or gallops GI: Other: Soft nontender nondistended with normoactive bowel sounds Extrem: Other: Left great toe and dorsum of left foot erythematous and painful to touch;no improvement Objective Data Active Medications Atorvastatin Calcium (Atorvastatin Calcium 80 Mg Tablet) 80 mg PO BEDTIME [facility] Last Admin: 01/05/22 19:51 Dose: 80 mg Documented by: EWA Docusate Sodium (Docusate Sodium 100 Mg Capsule) 100 mg PO DAILY PRN PRN Reason: Constipation Ezetimibe (Ezetimibe 10 Mg Tablet) 10 mg PO DAILY [facility] Last Admin: 01/06/22 09:05 Dose: 10 mg Documented by: COTEMA Gabapentin (Gabapentin 300 Mg Capsule) 300 mg PO TID [facility] Last Admin: 01/06/22 09:06 Dose: 300 mg Documented by: NELSONEMA Heparin Sodium (Porcine) (Heparin Sodium,Porcine 5,000 Unit/Ml Vial) 5,000 unit SUBCUT Q12H [facility] Last Admin: 01/05/22 21:43 Dose: 5,000 unit Documented by: EWA Hydromorphone HCl (Hydromorphone Hcl 1 Mg/Ml Syringe) 1 mg IVPUSH Q4H PRN; Protocol PRN Reason: Pain, Severe (Pain Scale 7-10) Last Admin: 01/06/22 09:05 Dose: 1 mg Documented by: NELSONEMA Hydroxyzine HCl (Hydroxyzine Hcl 10 Mg Tablet) 20 mg PO QID PRN PRN Reason: itch Last Admin: 01/05/22 08:38 Dose: 20 mg Documented by: CAMILO Piperacillin Sod/Tazobactam (Sod 3.375 gm/ Sodium Chloride) 50 mls @ 100 mls/hr IV Q6H [facility] Last Infusion: 01/06/22 07:02 Dose: 0 mls/hr Documented by: EWA Vancomycin HCl 1,250 mg/ (Sodium Chloride) 250 mls @ 166.667 mls/hr IV Q12H [facility] Last Infusion: 01/06/22 10:48 Dose: 0 mls/hr Documented by: CAMILO Cefazolin Sodium/Dextrose (Ancef) 2 gm in 50 mls @ 100 mls/hr IV PREOP ONE Stop: 01/06/22 10:57 Insulin Glargine (Insulin Glargine,Hum.Rec.Anlog 100 Unit/Ml 10 Ml Vial) 50 unit SUBCUT DAILY@1200 [facility] Last Admin: 01/05/22 11:22 Dose: Not Given Documented by: CAMILO Non-Admin Reason: low POC @ 84 Insulin Glargine (Insulin Glargine,Hum.Rec.Anlog 100 Unit/Ml 10 Ml Vial) 100 unit SUBCUT BEDTIME [facility] Last Admin: 01/05/22 21:42 Dose: 70 unit Documented by: EWA Comments: pt requested less Insulin Human Lispro (Insulin Lispro 100 Unit/Ml 3 Ml Vial) 30 unit SUBCUT TIDAC [facility] Last Admin: 01/06/22 07:12 Dose: Not Given Documented by: CAMILO Non-Admin Reason: poc 77 Isosorbide Mononitrate (Isosorbide Mononitrate 30 Mg Tab.Er.24h) 30 mg PO DAILY [facility]; Protocol Last Admin: 01/06/22 09:06 Dose: 30 mg Documented by: NELSONEMA Loratadine (Loratadine 10 Mg Tablet) 10 mg PO DAILY [facility] Last Admin: 01/06/22 09:05 Dose: 10 mg Documented by: CAMILO Losartan Potassium (Losartan Potassium 25 Mg Tablet) 25 mg PO DAILY [facility]; [place] Last Admin: 01/06/22 09:06 Dose: 25 mg Documented by: NELSONEMA Meclizine HCl (Meclizine Hcl 25 Mg Tablet) 25 mg PO TID PRN PRN Reason: dizziness Last Admin: 01/05/22 08:38 Dose: 25 mg Documented by: CAMILO Metoprolol Tartrate (Metoprolol Tartrate 25 Mg Tablet) 25 mg PO BID [facility]; Protocol Last Admin: 01/06/22 09:06 Dose: 25 mg Documented by: CAMILO Montelukast Sodium (Montelukast Sodium 10 Mg Tablet) 10 mg PO BEDTIME [facility] Last Admin: 01/05/22 19:51 Dose: 10 mg Documented by: EWA Omeprazole (Omeprazole 20 Mg Capsule.Dr) 20 mg PO BID@0630,1630 [facility] Last Admin: 01/06/22 06:22 Dose: 20 mg Documented by: EWA Ondansetron HCl (Ondansetron Hcl 4 Mg/2 Ml Vial) 4 mg IVPUSH Q8H PRN PRN Reason: Nausea and Vomiting Oxycodone HCl (Oxycodone Hcl Immed Release 5 Mg Tablet) 10 mg PO Q4H [facility] Last Admin: 01/06/22 06:21 Dose: 10 mg Documented by: EWA Oxycodone HCl (Oxycodone Hcl Er 10 Mg Tab.Er.12h) 20 mg PO BID [facility] Last Admin: 01/06/22 09:06 Dose: 20 mg Documented by: CAMILO Pharmacy Consult (Consult Rx Perform Med Rec) 1 each MISCELLANE ONCE PRN PRN Reason: Consult order Pharmacy Consult (Consult Rx Vancomycin Dosing) 1 each MISCELLANE DAILY PRN PRN Reason: Consult order Quetiapine Fumarate (Quetiapine Fumarate 25 Mg Tablet) 12.5 mg PO BEDTIME [facility] Last Admin: 01/05/22 19:52 Dose: 12.5 mg Documented by: EWA Sodium Chloride (0.9 % Sodium Chloride Flush 3 Ml Syringe) 3 ml IVFLUSH QSHIFT [facility] Last Admin: 01/06/22 09:05 Dose: 3 ml Documented by: COTEMA Thiamine HCl (Thiamine Hcl 100 Mg Tablet) 100 mg PO DAILY [facility] Last Admin: 01/06/22 09:06 Dose: 100 mg Documented by: NELSONEMA Valacyclovir HCl (Valacyclovir Hcl 1,000 Mg Tablet) 1,000 mg PO BID [facility] Last Admin: 01/06/22 09:05 Dose: 1,000 mg Documented by: CAMILO Venlafaxine HCl (Venlafaxine Hcl 25 Mg Tablet) 100 mg PO BID [facility] Last Admin: 01/06/22 09:06 Dose: 100 mg Documented by: CAMILO Zolpidem Tartrate (Zolpidem Tartrate 5 Mg Tablet) 10 mg PO BEDTIME PRN PRN Reason: insomnia Last Admin: 01/05/22 23:24 Dose: 10 mg Documented by: EWA Labs CBC & Chem 7: 01/06/22 06:10 01/06/22 06:10 Labs: Laboratory Results - last 24 hr 01/05/22 01/05/22 01/05/22 11:07 13:37 15:28 MCV MCH MCHC RDW Plt Count MPV Immature Gran % (Auto) Neut % (Auto) Lymph % (Auto) [place] % (Auto) Eos % (Auto) Baso % (Auto) Lymph # (Auto) [place] # (Auto) Eos # (Auto) Baso # (Auto) Abs Immat Gran (auto) Absolute Neuts (auto) Absolute Nucleated RBC Nucleated RBC % (auto) PT 26.7 H INR 2.3 H Anion Gap Estim Creat Clear Calc Estimated GFR POC Glucose 84 111 Fasting Glucose Calcium Total Bilirubin AST ALT Alkaline Phosphatase Total Protein Albumin 01/05/22 01/05/22 01/06/22 19:39 21:38 06:10 MCV 89.8 MCH 27.7 MCHC 30.8 L RDW 13.0 Plt Count 274 MPV 9.6 Immature Gran % (Auto) 0.3 Neut % (Auto) 65.1 Lymph % (Auto) 20.1 Todd % (Auto) 12.6 H Eos % (Auto) 1.4 Baso % (Auto) 0.5 Lymph # (Auto) 1.6 Todd # (Auto) 1.0 Eos # (Auto) 0.1 Baso # (Auto) 0.0 Abs Immat Gran (auto) 0.02 Absolute Neuts (auto) 5.2 Absolute Nucleated RBC 0.000 Nucleated RBC % (auto) 0.0 PT INR Anion Gap Estim Creat Clear Calc Estimated GFR POC Glucose 136 H 214 H Fasting Glucose Calcium Total Bilirubin AST ALT Alkaline Phosphatase Total Protein Albumin 01/06/22 01/06/22 06:10 07:02 MCV MCH MCHC RDW Plt Count MPV Immature Gran % (Auto) Neut % (Auto) Lymph % (Auto) [place] % (Auto) Eos % (Auto) Baso % (Auto) Lymph # (Auto) Todd # (Auto) Eos # (Auto) Baso # (Auto) Abs Immat Gran (auto) Absolute Neuts (auto) Absolute Nucleated RBC Nucleated RBC % (auto) PT INR Anion Gap 11 L Estim Creat Clear Calc 108.3 Estimated GFR > 60 POC Glucose 77 Fasting Glucose 103 H Calcium 8.6 Total Bilirubin 0.4 AST 18 D ALT 11 Alkaline Phosphatase 83 Total Protein 5.6 L Albumin 3.2 L Microbiology Microbiology Results: Microbiology 01/03/22 19:59 Blood Culture - Preliminary Blood - Venous No growth after 48 hours. 01/03/22 18:00 Blood Culture - Preliminary Blood - Venous No growth after 48 hours. Assessment and Plan (1) Abscess of great toe: Status: Acute (2) Cellulitis: Status: Acute (3) DMII (diabetes mellitus, type 2): Status: Acute (4) Hypertension: Status: Acute Plan 61-year-old male with past medical history of diabetes, coronary artery disease who presents to the hospital with complaints of left toe pain found to have osteomyelitis 1.Left toe acute osteomyelitis/cellulitis -continue vancomycin and Zosyn()..PICC line pending cultures -BCs neg x 24 HRS 2. 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 5.Hypertension - acceptable control on current therapies DVT prophylaxis: Lovenox Full Code Requires inpatient hospitalization secondary to need for IV antibiotics for osteomyelitis; PICC line pending negative cultures. Also needs close monitoring of renal function with same given history of diabetes Quality Stroke Does the patient have a stroke diagnosis?: No VTE Prior VTE?: No VTE Risk Level:: Medical - moderate - high VTE Device Contraindication: Treatment Not Indicated VTE Drug Contraindication: N/A - Med Ordered
[2022-01-06 11:16] LABS: Glucose, Whole Blood 122 mg/dL (60-115)
[2022-01-06] MEDS: Heparin Sodium,Porcine 5,000 UNIT/ML VIAL 5000 UNIT SUBCUT ×2 (12:33→23:41)
[2022-01-06 16:13] LABS: Glucose, Whole Blood 132 mg/dL (60-115)
[2022-01-06 19:31] LABS: Glucose, Whole Blood 127 mg/dL (60-115)
[2022-01-06 20:06] LABS: Vancomycin Trough 18.4 mcg/mL (10.0-20.0)
--- NOTE | 2022-01-06 20:32 | PHA.PROG ---
Admission Date/Time: January 03, 2022 23:10 Indication: Weight in k.9 kg Adjusted body weight in Kg: [place] body weight in Kg: Obesity Dosing Indication % IBW: Serum Creatinine - Last 168 Hours 01/03/22 01/04/22 01/05/22 13:39 06:28 06:50 Creatinine 0.78 0.63 0.72 01/06/22 06:10 Creatinine 0.93 Estimated CrCl and GFR - Last 168 Hours 01/03/22 01/04/22 01/05/22 13:39 06:28 06:50 Estim Creat Clear Calc 126.6 156.7 139.8 Estimated GFR > 60 > 60 > 60 01/06/22 06:10 Estim Creat Clear Calc 108.3 Estimated GFR > 60 Vancomycin Loading Dose: Current Vancomycin Dosing Regimen: Vancomycin Monitoring using AUC goal of 400 - 600 range with trough as surrogate marker: Date and Time for next Vancomycin Level to be drawn: Vancomycin Trough 18.4 mcg/mL (10.0-20.0) 01/06/22 19:12 Pharmacist Comments on Vancomycin Plan: decreased dose to 750 mg q12h Vancomycin dosing will take advantage of [employer] as a clinical decision support tool that uses Bayesian modeling to calculate individual patient's pharmacokinetic parameters and forecast the patient's drug concentration time course with the target goal AUC 24 range of 400 - 600 mg/L/hr.
[2022-01-06] MEDS: Zolpidem Tartrate 5 MG TABLET 10 MG PO (20:56)
[2022-01-06] MEDS: Montelukast Sodium 10 MG TABLET PO (20:57)
[2022-01-06] MEDS: QUEtiapine Fumarate 25 MG TABLET 12.5 MG PO (20:57)
[2022-01-06] MEDS: vancomycin HCL 750 MG in 0.9 % Sodium Chloride 250 ML 265 MG IV (20:57)
[2022-01-06] MEDS: Atorvastatin Calcium 80 MG TABLET PO (20:57)
[2022-01-07] VITALS (13 sets, daily range): BP systolic 95–141; BP diastolic 45–70; PULSE 70–81; RESP 16–18; TEMP 36.1–37.2; O2SAT 94–99
--- NOTE | 2022-01-07 | ECG_ITS ---
Test Reason : PREOP Blood Pressure : / mmHG Vent. Rate : 069 BPM Atrial Rate : 069 BPM P-R Int : 186 ms QRS Dur : 096 ms QT Int : 422 ms P-R-T Axes : 044 -09 046 degrees QTc Int : 452 ms Normal sinus rhythm Inferior infarct , age undetermined Nonspecific ST and T wave abnormality Abnormal ECG No previous ECGs available Referred By: Darek Haro Electronically Signed By:SID ORTIZ
[2022-01-07] MEDS: oxyCODONE HCl Immed Release 5 MG TABLET 10 MG PO ×4 (03:39→23:24)
[2022-01-07] MEDS: HYDROmorphone HCl 1 MG/ML SYRINGE IVPUSH ×5 (03:42→22:16)
[2022-01-07] MEDS: Piperacillin Sodium/Tazobactam 3.375 GM in 0.9 % Sodium Chloride 50 ML IV ×4 (05:39→23:25)
[2022-01-07] MEDS: Omeprazole 20 MG CAPSULE.DR PO ×2 (05:40→18:32)
[2022-01-07 06:39] LABS: MANUAL DIFF FLAG NO
[2022-01-07 06:54] LABS: INTERNATIONAL NORM RATIO 1.7 (0.9-1.1)
[2022-01-07 06:55] LABS: Basophils Percent Auto 0.5 % (0-2); Eosinophils Absolute Auto 0.1 X10*3/uL (0.0-0.4); Eosinophils Percent Auto 1.6 % (0-4); Hemoglobin 10.6 g/dl (14.0-18.0); Imm Gran Abs Auto 0.03 X10*3/uL (0.00-0.03); Imm Gran Pct Auto 0.4 % (0.0-0.4); Lymphocytes Absolute Auto 1.4 X10*3/uL (1.2-4.9); Lymphocytes Percent Auto 18.8 % (20-40); Mean Corpuscular HGB Conc 31.2 g/dl (31.0-36.0); Mean Corpuscular Volume 89.9 fL (80.0-98.0); Mean Platelet Volume 9.6 fL (9.4-12.4); Monocytes Absolute Auto 0.9 X10*3/uL (0.1-1.2); Monocytes Percent Auto 12.5 % (2-11); Neutrophils Percent Auto 66.2 % (45-73); Platelet Count 276 X10*3/uL (160-400); Red Blood Count 3.78 X10*6/uL (4.60-5.80); Red Cell Distribution Width 13.1 % (11.0-16.0); White Blood Count 7.5 X10*3/uL (4.8-10.8)
[2022-01-07 07:00] LABS: Alanine Aminotransferase 13 U/L (0-40); Albumin Level 3.2 g/dL (3.5-5.0); Alkaline Phosphatase 91 U/L (39-117); Anion Gap 12 (12-20); Aspartate Amino Transferase 18 U/L (5-37); Bilirubin Total 0.5 mg/dL (0.0-1.0); Blood Urea Nitrogen 12 mg/dL (9-16); Calcium 8.3 mg/dL (8.4-10.2); Carbon Dioxide 23 mmol/L (22-29); Chloride 104 mmol/L (96-108); Creatinine Clr Calc Pharmacy 73.5; Estimated Glomerular Filt Rate 53; Glucose Fasting 165 mg/dL (60-99); Potassium 3.9 mmol/L (3.3-5.1); Sodium 135 mmol/L (135-145); Total Protein 5.5 g/dL (6.5-8.0)
[2022-01-07 07:05] LABS: Vancomycin Random 18.8 mcg/mL (15-20)
[2022-01-07 07:30] LABS: Glucose, Whole Blood 144 mg/dL (60-115)
[2022-01-07] MEDS: 0.9 % Sodium Chloride Flush 3 ML SYRINGE IVFLUSH ×3 (07:43→23:25)
--- NOTE | 2022-01-07 07:52 | HE.PHANOTE ---
RE VANCOMYCIN Patient SCR increased to 1.37... will decrease frequency and total daily dose to 1000mg q24h starting at 2100. next trough is 01/08@1900 for safety profile. (estimated auc 421, trough 15.5)
[2022-01-07] MEDS: Ezetimibe 10 MG TABLET PO (08:38)
[2022-01-07] MEDS: Gabapentin 300 MG CAPSULE PO ×2 (08:38→20:34)
[2022-01-07] MEDS: Thiamine HCL 100 MG TABLET PO (08:42)
[2022-01-07] MEDS: Venlafaxine HCL 25 MG TABLET 100 MG PO ×2 (08:42→20:35)
[2022-01-07] MEDS: Metoprolol Tartrate 25 MG TABLET PO ×2 (10:07→20:34)
[2022-01-07] MEDS: Losartan Potassium 25 MG TABLET PO (10:07)
[2022-01-07] MEDS: Isosorbide Mononitrate 30 MG TAB.ER.24H PO (10:08)
[2022-01-07] MEDS: oxyCODONE HCl ER 10 MG TAB.ER.12H 20 MG PO ×2 (10:08→20:33)
[2022-01-07] MEDS: Loratadine 10 MG TABLET PO (10:09)
[2022-01-07] MEDS: valACYclovir HCL 1,000 MG TABLET 1000 MG PO ×2 (10:14→20:34)
--- NOTE | 2022-01-07 10:24 | HO.PM.IMPN ---
Subjective Subjective Date of Service: 01/07/22 Interval History: States toe painful overnight. No fever chills Review of Systems Denies chest pain Denies shortness of breath Denies nausea vomiting diarrhea Admits to pain left great toe Physical Exam Vital Signs: Vital Signs: Last Vital Signs Temp 98.9 F 01/07/22 07:39 Pulse 72 01/07/22 07:39 Resp 17 01/07/22 07:39 BP 117/60 01/07/22 07:39 Pulse Ox 98 01/07/22 07:39 BMI result Body Mass Index 41.0 Const: Other: Awake alert oriented x3 no acute distress; uncomfortable secondary to pain Resp: Other: Clear to auscultation bilaterally no rales rhonchi or wheezes Cardio: Other: No S4; positive S1-S2; no S3 murmurs rubs or gallops GI: Other: Soft nontender nondistended with normoactive bowel sounds Extrem: Other: Left great toe and dorsum of left foot erythematous and painful to touch;no improvement Objective Data Active Medications Acetaminophen (Acetaminophen 325 Mg Tablet) 650 mg PO Q4H PRN PRN Reason: Headache Atorvastatin Calcium (Atorvastatin Calcium 80 Mg Tablet) 80 mg PO BEDTIME [facility] Last Admin: 01/06/22 20:57 Dose: 80 mg Documented by: TOPHER Docusate Sodium (Docusate Sodium 100 Mg Capsule) 100 mg PO DAILY PRN PRN Reason: Constipation Ezetimibe (Ezetimibe 10 Mg Tablet) 10 mg PO DAILY [facility] Last Admin: 01/07/22 08:38 Dose: 10 mg Documented by: NOE Gabapentin (Gabapentin 300 Mg Capsule) 300 mg PO TID [facility] Last Admin: 01/07/22 08:38 Dose: 300 mg Documented by: NOE Heparin Sodium (Porcine) (Heparin Sodium,Porcine 5,000 Unit/Ml Vial) 5,000 unit SUBCUT Q12H [facility] Last Admin: 01/06/22 23:41 Dose: 5,000 unit Documented by: TOPHER Hydromorphone HCl (Hydromorphone Hcl 1 Mg/Ml Syringe) 1 mg IVPUSH Q4H PRN; Protocol PRN Reason: Pain, Severe (Pain Scale 7-10) Last Admin: 01/07/22 08:38 Dose: 1 mg Documented by: NOE Hydroxyzine HCl (Hydroxyzine Hcl 10 Mg Tablet) 20 mg PO QID PRN PRN Reason: itch Last Admin: 01/05/22 08:38 Dose: 20 mg Documented by: CAMILO Piperacillin Sod/Tazobactam (Sod 3.375 gm/ Sodium Chloride) 50 mls @ 100 mls/hr IV Q6H [facility] Last Infusion: 01/07/22 06:35 Dose: 0 mls/hr Documented by: TOPHER Cefazolin Sodium/Dextrose (Ancef) 2 gm in 50 mls @ 100 mls/hr IV PREOP [facility] Stop: 01/07/22 23:00 Vancomycin HCl 1,000 mg/ (Sodium Chloride) 270 mls @ 270 mls/hr IV Q24H [facility] Insulin Glargine (Insulin Glargine,Hum.Rec.Anlog 100 Unit/Ml 10 Ml Vial) 50 unit SUBCUT DAILY@1200 [facility] Last Admin: 01/06/22 11:42 Dose: Not Given Documented by: CAMILO Non-Admin Reason: poc 122 Insulin Glargine (Insulin Glargine,Hum.Rec.Anlog 100 Unit/Ml 10 Ml Vial) 100 unit SUBCUT BEDTIME [facility] Last Admin: 01/06/22 20:57 Dose: Not Given Documented by: TOPHER Non-Admin Reason: Patient Refused Insulin Human Lispro (Insulin Lispro 100 Unit/Ml 3 Ml Vial) 30 unit SUBCUT TIDAC [facility] Last Admin: 01/07/22 07:46 Dose: Not Given Documented by: NOE Non-Admin Reason: NPO Isosorbide Mononitrate (Isosorbide Mononitrate 30 Mg Tab.Er.24h) 30 mg PO DAILY [facility]; Protocol Last Admin: 01/07/22 10:08 Dose: 30 mg Documented by: NOE Loratadine (Loratadine 10 Mg Tablet) 10 mg PO DAILY [facility] Last Admin: 01/07/22 10:09 Dose: 10 mg Documented by: NOE Losartan Potassium (Losartan Potassium 25 Mg Tablet) 25 mg PO DAILY [facility]; Protocol Last Admin: 01/07/22 10:07 Dose: 25 mg Documented by: NOE Meclizine HCl (Meclizine Hcl 25 Mg Tablet) 25 mg PO TID PRN PRN Reason: dizziness Last Admin: 01/05/22 08:38 Dose: 25 mg Documented by: CAMILO Metoprolol Tartrate (Metoprolol Tartrate 25 Mg Tablet) 25 mg PO BID [facility]; Protocol Last Admin: 01/07/22 10:07 Dose: 25 mg Documented by: NOE Montelukast Sodium (Montelukast Sodium 10 Mg Tablet) 10 mg PO BEDTIME [facility] Last Admin: 01/06/22 20:57 Dose: 10 mg Documented by: TOPHER Omeprazole (Omeprazole 20 Mg Capsule.Dr) 20 mg PO BID@0630,1630 [facility] Last Admin: 01/07/22 05:40 Dose: 20 mg Documented by: TOPHER Ondansetron HCl (Ondansetron Hcl 4 Mg/2 Ml Vial) 4 mg IVPUSH Q8H PRN PRN Reason: Nausea and Vomiting Oxycodone HCl (Oxycodone Hcl Immed Release 5 Mg Tablet) 10 mg PO Q4H [facility] Last Admin: 01/07/22 07:42 Dose: 10 mg Documented by: NOE Oxycodone HCl (Oxycodone Hcl Er 10 Mg Tab.Er.12h) 20 mg PO BID [facility] Last Admin: 01/07/22 10:08 Dose: 20 mg Documented by: NOE Pharmacy Consult (Consult Rx Perform Med Rec) 1 each MISCELLANE ONCE PRN PRN Reason: Consult order Pharmacy Consult (Consult Rx Vancomycin Dosing) 1 each MISCELLANE DAILY PRN PRN Reason: Consult order Quetiapine Fumarate (Quetiapine Fumarate 25 Mg Tablet) 12.5 mg PO BEDTIME [facility] Last Admin: 01/06/22 20:57 Dose: 12.5 mg Documented by: TOPHER Sodium Chloride (0.9 % Sodium Chloride Flush 3 Ml Syringe) 3 ml IVFLUSH QSHIFT [facility] Last Admin: 01/07/22 07:43 Dose: 3 ml Documented by: NOE Thiamine HCl (Thiamine Hcl 100 Mg Tablet) 100 mg PO DAILY [facility] Last Admin: 01/07/22 08:42 Dose: 100 mg Documented by: NOE Valacyclovir HCl (Valacyclovir Hcl 1,000 Mg Tablet) 1,000 mg PO BID [facility] Last Admin: 01/07/22 10:14 Dose: 1,000 mg Documented by: NOE Venlafaxine HCl (Venlafaxine Hcl 25 Mg Tablet) 100 mg PO BID [facility] Last Admin: 01/07/22 08:42 Dose: 100 mg Documented by: NOE Zolpidem Tartrate (Zolpidem Tartrate 5 Mg Tablet) 10 mg PO BEDTIME PRN PRN Reason: insomnia Last Admin: 01/06/22 20:56 Dose: 10 mg Documented by: TOPHER Labs CBC & Chem 7: 01/07/22 06:33 01/07/22 06:34 Labs: Laboratory Results - last 24 hr 01/06/22 01/06/22 01/06/22 11:02 15:35 18:58 MCV MCH MCHC RDW Plt Count MPV Immature Gran % (Auto) Neut % (Auto) Lymph % (Auto) [place] % (Auto) Eos % (Auto) Baso % (Auto) Lymph # (Auto) [place] # (Auto) Eos # (Auto) Baso # (Auto) Abs Immat Gran (auto) Absolute Neuts (auto) Absolute Nucleated RBC Nucleated RBC % (auto) PT INR Anion Gap Estim Creat Clear Calc Estimated GFR POC Glucose 122 H 132 H 127 H Fasting Glucose Calcium Total Bilirubin AST ALT Alkaline Phosphatase Total Protein Albumin Vancomycin Trough Random Vancomycin 01/06/22 01/07/22 01/07/22 19:12 06:33 06:33 MCV 89.9 MCH 28.0 MCHC 31.2 RDW 13.1 Plt Count 276 MPV 9.6 Immature Gran % (Auto) 0.4 Neut % (Auto) 66.2 Lymph % (Auto) 18.8 L [place] % (Auto) 12.5 H Eos % (Auto) 1.6 Baso % (Auto) 0.5 Lymph # (Auto) 1.4 [place] # (Auto) 0.9 Eos # (Auto) 0.1 Baso # (Auto) 0.0 Abs Immat Gran (auto) 0.03 Absolute Neuts (auto) 5.0 Absolute Nucleated RBC 0.000 Nucleated RBC % (auto) 0.0 PT 19.0 H INR 1.7 H Anion Gap Estim Creat Clear Calc Estimated GFR POC Glucose Fasting Glucose Calcium Total Bilirubin AST ALT Alkaline Phosphatase Total Protein Albumin Vancomycin Trough 18.4 Random Vancomycin 03/14/22 03/14/22 03/14/22 06:34 06:34 07:18 MCV MCH MCHC RDW Plt Count MPV Immature Gran % (Auto) Neut % (Auto) Lymph % (Auto) [place] % (Auto) Eos % (Auto) Baso % (Auto) Lymph # (Auto) [place] # (Auto) Eos # (Auto) Baso # (Auto) Abs Immat Gran (auto) Absolute Neuts (auto) Absolute Nucleated RBC Nucleated RBC % (auto) PT INR Anion Gap 12 Estim Creat Clear Calc 73.5 Estimated GFR 53 POC Glucose 144 H Fasting Glucose 165 H D Calcium 8.3 L Total Bilirubin 0.5 AST 18 ALT 13 Alkaline Phosphatase 91 Total Protein 5.5 L Albumin 3.2 L Vancomycin Trough Random Vancomycin 18.8 Assessment and Plan (1) Osteomyelitis: Status: Acute (2) DMII (diabetes mellitus, type 2): Status: Acute (3) Hypertension: Status: Acute Plan 61-year-old male with past medical history of diabetes, coronary artery disease who presents to the hospital with complaints of left toe pain found to have osteomyelitis 1.Left toe acute osteomyelitis/cellulitis -continue vancomycin and Zosyn(4)..will continue for cellulitis -BCs neg x 48 HRS -surgery(left great toe amp) today(EKG reviewed) Mr Gomez is a moderate but acceptable CV risk for toe amputaion. There are no medically prohibitive issues to surgery. May proceed as outlined by Dr Hinton. 2. 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 5.Hypertension - acceptable control on current therapies DVT prophylaxis: Lovenox Full Code Requires inpatient hospitalization secondary to need for IV antibiotics for osteomyelitis; for amputaion today. Likely will need 2 additional midnights to clear remaining foot cellulitis Quality Stroke Does the patient have a stroke diagnosis?: No VTE Prior VTE?: No VTE Risk Level:: Medical - moderate - high VTE Device Contraindication: Treatment Not Indicated VTE Drug Contraindication: N/A - Med Ordered
--- NOTE | 2022-01-07 12:48 | P.PICC_ITS ---
[facility] Diagnosis: OSTEOMYELIT[facility] Indication: [facility] IV ANTIBIOTICS Pertinent Labs: REVIEWED Technique: Following informed consent including risks, benefits and alternatives and using sterile technique including cap and mask, sterile gown, glove and drape, the RIGHT arm was prepped and draped in the usual sterile fashion of full barrier technique with G. Following completion of [place] Protocol the skin and soft tissues were anesthetized with 1% Lidocaine plain. Using ultrasound guidance, BASILIC vein access was obtained IN SINGLE ATTEMPT BY THIS RN; x1 UNSUCCESSFUL ATTEMPT BY RN NELA EUCEDA, SO TOTAL x2 ATTEMPTS. Over an 0.018 wire through peel-away sheath, a 5-MAORI, DOUBLE LUMEN, PASV PICC line was positioned. Catheter length is 42 CM internal length, 0 CM external length, for a total trimmed length of 42 CM. The procedure was performed in S-272. Tip verification was performed by Chaitanya Huntley with [place]lock 3CG. Tip located in SVC. Ultrasound was used to document vein patency and for needle entry. A formal ultrasound picture and cardiac rhythm strip was recorded. [employer] has released the line for use and it is currently dressed with a StatLock, Tegaderm, and CHG disc. Verification has been performed for blood return and line patency. Arm Circumference: 44 CM Equipment: [employer] POWERPICC SOLO Catheter Type: 5-MAORI, DOUBLE LUMEN, PASV Lot #: [id number]
[2022-01-07 13:24] LABS: Glucose, Whole Blood 141 mg/dL (60-115)
--- NOTE | 2022-01-07 13:25 | PC.NURSE ---
md campbell and ms booker aware of patients inr of 1.7. ok to proceed.
--- NOTE | 2022-01-07 14:18 | HO.ANESPROP2 ---
HPI - Anesthesia Eval Consult details Narrative: 61-year-old male for left great toe amputation , PMH of diabetes, coronary artery disease s/p CABG admitted for left toe osteomyelitis Coronary artery disease s/p CABG 4 years ago . chronic back pain , DM , on chronic opioids . Anticoagulation being held . [facility] Active Problems Active Problems: All Active Problems (Updated 01/06/22 @ 10:24 by Pawel Hinton MD) Abscess of great toe (Acute) Hypertension (Acute) DMII (diabetes mellitus, type 2) (Acute) Orthopedic hardware present (Acute) Osteomyelitis (Acute) Cellulitis (Acute) Leukocytosis (Acute) Hyperglycemia (Acute) Past Medical History Medical History Asthma Diabetes FHx: bilateral hip replacements Hypertension Family History Family History Other No family history of coronary artery disease Family history of problems with anesthesia: No Surgical History Surgical History H/O bilateral hip replacements History of ankle surgery History of back surgery History of neck surgery S/P quadruple vessel bypass History of Problems with Anesthesia: No Social History Social History Household Members: Family Housing: Apartment Do you presently have visiting nurse or other home services: Yes Alcohol intake: never Patient Tobacco Use Status: Former Tobacco user Tobacco use type: Cigarette Advance Directives Date on File: 01/04/22 service: Yes Current occupational status: retired Meds Allergies Allergy/AdvReac Type Severity Reaction Status Date / Time morphine AdvReac Intermediate Hallucinati Verified 07/06/21 06:43 ons Active Medications: Current Medications Acetaminophen (Acetaminophen 325 Mg Tablet) 650 mg PO Q4H PRN PRN Reason: Headache Atorvastatin Calcium (Atorvastatin Calcium 80 Mg Tablet) 80 mg PO BEDTIME [facility] Last Admin: 01/06/22 20:57 Dose: 80 mg Documented by: Docusate Sodium (Docusate Sodium 100 Mg Capsule) 100 mg PO DAILY PRN PRN Reason: Constipation Ezetimibe (Ezetimibe 10 Mg Tablet) 10 mg PO DAILY [facility] Last Admin: 01/07/22 08:38 Dose: 10 mg Documented by: Gabapentin (Gabapentin 300 Mg Capsule) 300 mg PO TID [facility] Last Admin: 01/07/22 08:38 Dose: 300 mg Documented by: Heparin Sodium (Porcine) (Heparin Sodium,Porcine 5,000 Unit/Ml Vial) 5,000 unit SUBCUT Q12H [facility] Last Admin: 01/07/22 13:34 Dose: Not Given Documented by: Hydromorphone HCl (Hydromorphone Hcl 1 Mg/Ml Syringe) 1 mg IVPUSH Q4H PRN; Protocol PRN Reason: Pain, Severe (Pain Scale 7-10) Last Admin: 01/07/22 13:28 Dose: 1 mg Documented by: Hydroxyzine HCl (Hydroxyzine Hcl 10 Mg Tablet) 20 mg PO QID PRN PRN Reason: itch Last Admin: 01/05/22 08:38 Dose: 20 mg Documented by: Piperacillin Sod/Tazobactam (Sod 3.375 gm/ Sodium Chloride) 50 mls @ 100 mls/hr IV Q6H [facility] Last Admin: 01/07/22 13:32 Dose: 100 mls/hr Documented by: Cefazolin Sodium/Dextrose (Ancef) 2 gm in 50 mls @ 100 mls/hr IV PREOP [facility] Stop: 01/07/22 23:00 Vancomycin HCl 1,000 mg/ (Sodium Chloride) 270 mls @ 270 mls/hr IV Q24H [facility] Insulin Glargine (Insulin Glargine,Hum.Rec.Anlog 100 Unit/Ml 10 Ml Vial) 50 unit SUBCUT DAILY@1200 [facility] Last Admin: 01/07/22 13:35 Dose: Not Given Documented by: Insulin Glargine (Insulin Glargine,Hum.Rec.Anlog 100 Unit/Ml 10 Ml Vial) 100 unit SUBCUT BEDTIME [facility] Last Admin: 01/06/22 20:57 Dose: Not Given Documented by: Insulin Human Lispro (Insulin Lispro 100 Unit/Ml 3 Ml Vial) 30 unit SUBCUT TIDAC [facility] Last Admin: 01/07/22 13:35 Dose: Not Given Documented by: Isosorbide Mononitrate (Isosorbide Mononitrate 30 Mg Tab.Er.24h) 30 mg PO DAILY [facility]; Protocol Last Admin: 01/07/22 10:08 Dose: 30 mg Documented by: Loratadine (Loratadine 10 Mg Tablet) 10 mg PO DAILY [facility] Last Admin: 01/07/22 10:09 Dose: 10 mg Documented by: Losartan Potassium (Losartan Potassium 25 Mg Tablet) 25 mg PO DAILY [facility]; Protocol Last Admin: 01/07/22 10:07 Dose: 25 mg Documented by: Meclizine HCl (Meclizine Hcl 25 Mg Tablet) 25 mg PO TID PRN PRN Reason: dizziness Last Admin: 01/05/22 08:38 Dose: 25 mg Documented by: Metoprolol Tartrate (Metoprolol Tartrate 25 Mg Tablet) 25 mg PO BID [facility]; Protocol Last Admin: 01/07/22 10:07 Dose: 25 mg Documented by: Montelukast Sodium (Montelukast Sodium 10 Mg Tablet) 10 mg PO BEDTIME [facility] Last Admin: 01/06/22 20:57 Dose: 10 mg Documented by: Omeprazole (Omeprazole 20 Mg Capsule.Dr) 20 mg PO BID@0630,1630 [facility] Last Admin: 01/07/22 05:40 Dose: 20 mg Documented by: Ondansetron HCl (Ondansetron Hcl 4 Mg/2 Ml Vial) 4 mg IVPUSH Q8H PRN PRN Reason: Nausea and Vomiting Oxycodone HCl (Oxycodone Hcl Immed Release 5 Mg Tablet) 10 mg PO Q4H [facility] Last Admin: 01/07/22 13:35 Dose: Not Given Documented by: Oxycodone HCl (Oxycodone Hcl Er 10 Mg Tab.Er.12h) 20 mg PO BID [facility] Last Admin: 01/07/22 10:08 Dose: 20 mg Documented by: Pharmacy Consult (Consult Rx Perform Med Rec) 1 each MISCELLANE ONCE PRN PRN Reason: Consult order Pharmacy Consult (Consult Rx Vancomycin Dosing) 1 each MISCELLANE DAILY PRN PRN Reason: Consult order Quetiapine Fumarate (Quetiapine Fumarate 25 Mg Tablet) 12.5 mg PO BEDTIME [facility] Last Admin: 01/06/22 20:57 Dose: 12.5 mg Documented by: Sodium Chloride (0.9 % Sodium Chloride Flush 3 Ml Syringe) 3 ml IVFLUSH QSHIFT [facility] Last Admin: 01/07/22 07:43 Dose: 3 ml Documented by: Thiamine HCl (Thiamine Hcl 100 Mg Tablet) 100 mg PO DAILY [facility] Last Admin: 01/07/22 08:42 Dose: 100 mg Documented by: Valacyclovir HCl (Valacyclovir Hcl 1,000 Mg Tablet) 1,000 mg PO BID [facility] Last Admin: 01/07/22 10:14 Dose: 1,000 mg Documented by: Venlafaxine HCl (Venlafaxine Hcl 25 Mg Tablet) 100 mg PO BID [facility] Last Admin: 01/07/22 08:42 Dose: 100 mg Documented by: Zolpidem Tartrate (Zolpidem Tartrate 5 Mg Tablet) 10 mg PO BEDTIME PRN PRN Reason: insomnia Last Admin: 01/06/22 20:56 Dose: 10 mg Documented by: Home Medications Medication Instructions Recorded Confirmed Last Taken Type ezetimibe 10 mg tablet 1 tab PO DAILY 01/03/22 01/03/22 01/02/22 History gabapentin 300 mg capsule 1 cap PO TID 01/03/22 01/03/22 01/02/22 History hydroxyzine HCl 10 mg tablet 2 tab PO QID PRN 01/03/22 01/03/22 Unknown History insulin glargine 100 unit/mL 50 unit SUBCUT DAILY@1200 01/03/22 01/03/22 01/02/22 History subcutaneous solution (Lantus U-100 Insulin) insulin glargine 100 unit/mL 100 unit SUBCUT BEDTIME 01/03/22 01/03/22 01/02/22 History subcutaneous solution (Lantus U-100 Insulin) insulin lispro 100 unit/mL 30 unit SUBCUT TIDAC 01/03/22 01/03/22 01/02/22 History subcutaneous solution isosorbide mononitrate 30 mg 1 tab PO QAM 01/03/22 01/03/22 01/02/22 History tablet,extended release 24 hr loratadine 10 mg tablet 1 tab PO DAILY 01/03/22 01/03/22 01/02/22 History losartan 25 mg tablet 1 tab PO DAILY 01/03/22 01/03/22 01/02/22 History meclizine 25 mg tablet 1 tab PO TID PRN 01/03/22 01/03/22 Unknown History metoprolol tartrate 25 mg tablet 1 tab PO BID 01/03/22 01/03/22 01/02/22 History montelukast 10 mg tablet 1 tab PO BEDTIME 01/03/22 01/03/2222 History ondansetron HCl 4 mg tablet 1 tab PO TID PRN 01/03/22 01/03/22 Unknown History oxycodone 20 mg tablet,crush 1 tab PO BID 01/03/22 01/03/22 01/02/22 History resistant,extended release 12 hr (OxyContin) oxycodone 5 mg tablet 2 tab PO Q4H 01/03/22 01/03/22 01/02/22 History pantoprazole 40 mg tablet,delayed 1 tab PO BID@0630,1630 01/03/22 01/03/22 01/02/22 History release quetiapine 25 mg tablet 0.5 tab PO BEDTIME 01/03/22 01/03/22 01/02/22 History rosuvastatin 40 mg tablet 1 tab PO BEDTIME 01/03/22 01/03/22 01/02/22 History thiamine HCl (vitamin B1) 100 mg 1 tab PO DAILY 01/03/22 01/03/22 01/02/22 History tablet valacyclovir 1 gram tablet 2 tab PO BID 01/03/22 01/03/22 01/02/22 History venlafaxine 100 mg tablet 1 tab PO BID 01/03/22 01/03/22 01/02/22 History warfarin 5 mg tablet 2.5 mg PO MOWESA@1800 01/03/22 01/03/22 01/02/22 History warfarin 5 mg tablet 5 mg PO DAILY@1800 01/03/22 01/03/22 01/02/22 History zolpidem 10 mg tablet 1 tab PO BEDTIME PRN 01/03/22 01/03/22 Unknown History Exam Exam Date and Time: January 07, 2022 141 Height,Weight and Vital Signs: Height 5 ft 8 in Weight 126.9 kg Last Vital Signs Temp 97.9 F 01/07/22 14:03 Pulse 72 01/07/22 14:03 Resp 16 01/07/22 14:03 BP 141/70 H 01/07/22 14:03 Pulse Ox 94 01/07/22 14:03 Pertinent Lab Results Pertinent Lab Results: Laboratory Tests 01/03/22 01/03/22 01/03/22 13:39 13:39 13:39 WBC 11.9 H RBC 4.84 Hgb 13.8 L Hct 44.9 MCV 92.8 MCH 28.5 MCHC 30.7 L RDW 12.9 Plt Count 248 MPV 10.0 Immature Gran % (Auto) 0.3 Neut % (Auto) 70.1 Lymph % (Auto) 19.0 L [place] % (Auto) 9.5 Eos % (Auto) 0.6 Baso % (Auto) 0.5 Lymph # (Auto) 2.3 [place] # (Auto) 1.1 Eos # (Auto) 0.1 Baso # (Auto) 0.1 Abs Immat Gran (auto) 0.04 H Absolute Neuts (auto) 8.4 H Absolute Nucleated RBC 0.000 Nucleated RBC % (auto) 0.0 ESR PT INR Sodium 131 L Potassium 4.7 Chloride 99 Carbon Dioxide 23 Anion Gap 14 BUN 7 L Creatinine 0.78 Estim Creat Clear Calc 126.6 Estimated GFR > 60 POC Glucose Random Glucose 334 H Fasting Glucose Lactic Acid Uric Acid Calcium 8.7 D Magnesium Total Bilirubin Direct Bilirubin AST ALT Alkaline Phosphatase C-Reactive Protein Total Protein Albumin Vancomycin Trough Random Vancomycin COVID-19 ([facility]) Cancelled COVID-19 Clin Com Cancelled 01/03/22 01/03/22 01/03/22 18:00 18:00 18:00 WBC RBC Hgb Hct MCV MCH MCHC RDW Plt Count MPV Immature Gran % (Auto) Neut % (Auto) Lymph % (Auto) [place] % (Auto) Eos % (Auto) Baso % (Auto) Lymph # (Auto) [place] # (Auto) Eos # (Auto) Baso # (Auto) Abs Immat Gran (auto) Absolute Neuts (auto) Absolute Nucleated RBC Nucleated RBC % (auto) ESR PT 35.9 H INR 3.1 H Sodium Potassium Chloride Carbon Dioxide Anion Gap BUN Creatinine Estim Creat Clear Calc Estimated GFR POC Glucose Random Glucose Fasting Glucose Lactic Acid 1.7 Uric Acid 3.7 Calcium Magnesium 2.3 Total Bilirubin 0.8 Direct Bilirubin 0.3 AST 10 ALT 7 Alkaline Phosphatase 80 C-Reactive Protein 16.12 H Total Protein 6.8 Albumin 3.9 Vancomycin Trough Random Vancomycin COVID-19 ([facility]) COVID-19 Clin Com 01/03/22 01/03/22 01/03/22 18:00 18:28 23:41 WBC RBC Hgb Hct MCV MCH MCHC RDW Plt Count MPV Immature Gran % (Auto) Neut % (Auto) Lymph % (Auto) [place] % (Auto) Eos % (Auto) Baso % (Auto) Lymph # (Auto) [place] # (Auto) Eos # (Auto) Baso # (Auto) Abs Immat Gran (auto) Absolute Neuts (auto) Absolute Nucleated RBC Nucleated RBC % (auto) ESR PT INR Sodium Potassium Chloride Carbon Dioxide Anion Gap BUN Creatinine Estim Creat Clear Calc Estimated GFR POC Glucose 257 H 208 H Random Glucose Fasting Glucose Lactic Acid Uric Acid Calcium Magnesium Total Bilirubin Direct Bilirubin AST ALT Alkaline Phosphatase C-Reactive Protein Total Protein Albumin Vancomycin Trough Random Vancomycin COVID-19 ([facility]) Negative COVID-19 Clin Com See Note 01/03/22 01/04/22 01/04/22 23:48 06:28 06:28 WBC 7.8 RBC 4.25 L Hgb 12.2 L Hct 37.0 L MCV 87.1 D MCH 28.7 MCHC 33.0 RDW 13.2 Plt Count 249 MPV 9.7 Immature Gran % (Auto) 0.3 Neut % (Auto) 65.6 Lymph % (Auto) 21.8 [place] % (Auto) 10.7 Eos % (Auto) 1.0 Baso % (Auto) 0.6 Lymph # (Auto) 1.7 [place] # (Auto) 0.8 Eos # (Auto) 0.1 Baso # (Auto) 0.1 Abs Immat Gran (auto) 0.02 Absolute Neuts (auto) 5.1 Absolute Nucleated RBC 0.000 Nucleated RBC % (auto) 0.0 ESR 62 H PT INR Sodium 137 Potassium 3.7 D Chloride 106 Carbon Dioxide 23 Anion Gap 12 BUN 8 L Creatinine 0.63 Estim Creat Clear Calc 156.7 Estimated GFR > 60 POC Glucose Random Glucose 156 H D Fasting Glucose Lactic Acid Uric Acid Calcium 8.4 Magnesium Total Bilirubin Direct Bilirubin AST ALT Alkaline Phosphatase C-Reactive Protein Total Protein Albumin Vancomycin Trough Random Vancomycin COVID-19 ([facility]) COVID-19 [employer] 01/04/22 01/04/22 01/04/22 06:28 07:12 12:06 WBC RBC Hgb Hct MCV MCH MCHC RDW Plt Count MPV Immature Gran % (Auto) Neut % (Auto) Lymph % (Auto) [place] % (Auto) Eos % (Auto) Baso % (Auto) Lymph # (Auto) [place] # (Auto) Eos # (Auto) Baso # (Auto) Abs Immat Gran (auto) Absolute Neuts (auto) Absolute Nucleated RBC Nucleated RBC % (auto) ESR PT 37.8 H INR 3.2 H Sodium Potassium Chloride Carbon Dioxide Anion Gap BUN Creatinine Estim Creat Clear Calc Estimated GFR POC Glucose 145 H 60 Random Glucose Fasting Glucose Lactic Acid Uric Acid Calcium Magnesium Total Bilirubin Direct Bilirubin AST ALT Alkaline Phosphatase C-Reactive Protein Total Protein Albumin Vancomycin Trough Random Vancomycin COVID-19 ([facility]) COVID-19 [employer] 01/04/22 01/04/22 01/05/22 18:04 21:33 06:50 WBC RBC Hgb Hct MCV MCH MCHC RDW Plt Count MPV Immature Gran % (Auto) Neut % (Auto) Lymph % (Auto) [place] % (Auto) Eos % (Auto) Baso % (Auto) Lymph # (Auto) [place] # (Auto) Eos # (Auto) Baso # (Auto) Abs Immat Gran (auto) Absolute Neuts (auto) Absolute Nucleated RBC Nucleated RBC % (auto) ESR PT INR Sodium Potassium Chloride Carbon Dioxide Anion Gap BUN Creatinine 0.72 Estim Creat Clear Calc 139.8 Estimated GFR > 60 POC Glucose 135 H 63 Random Glucose Fasting Glucose Lactic Acid Uric Acid Calcium Magnesium Total Bilirubin Direct Bilirubin AST ALT Alkaline Phosphatase C-Reactive Protein Total Protein Albumin Vancomycin Trough Random Vancomycin COVID-19 ([facility]) [employer] 01/05/22 01/05/22 01/05/22 06:50 07:44 11:07 WBC RBC Hgb Hct MCV MCH MCHC RDW Plt Count MPV Immature Gran % (Auto) Neut % (Auto) Lymph % (Auto) [place] % (Auto) Eos % (Auto) Baso % (Auto) Lymph # (Auto) [place] # (Auto) Eos # (Auto) Baso # (Auto) Abs Immat Gran (auto) Absolute Neuts (auto) Absolute Nucleated RBC Nucleated RBC % (auto) ESR PT INR Sodium Potassium Chloride Carbon Dioxide Anion Gap BUN Creatinine Estim Creat Clear Calc Estimated GFR POC Glucose 70 84 Random Glucose Fasting Glucose Lactic Acid Uric Acid Calcium Magnesium Total Bilirubin Direct Bilirubin AST ALT Alkaline Phosphatase C-Reactive Protein Total Protein Albumin Vancomycin Trough 11.1 Random Vancomycin COVID-19 ([facility]) COVID-19 [employer] 01/05/22 01/05/22 01/05/22 13:37 15:28 19:39 WBC RBC Hgb Hct MCV MCH MCHC RDW Plt Count MPV Immature Gran % (Auto) Neut % (Auto) Lymph % (Auto) [place] % (Auto) Eos % (Auto) Baso % (Auto) Lymph # (Auto) [place] # (Auto) Eos # (Auto) Baso # (Auto) Abs Immat Gran (auto) Absolute Neuts (auto) Absolute Nucleated RBC Nucleated RBC % (auto) ESR PT 26.7 H INR 2.3 H Sodium Potassium Chloride Carbon Dioxide Anion Gap BUN Creatinine Estim Creat Clear Calc Estimated GFR POC Glucose 111 136 H Random Glucose Fasting Glucose Lactic Acid Uric Acid Calcium Magnesium Total Bilirubin Direct Bilirubin AST ALT Alkaline Phosphatase C-Reactive Protein Total Protein Albumin Vancomycin Trough Random Vancomycin COVID-19 ([facility]) [employer] 01/05/22 01/06/22 01/06/22 21:38 06:10 06:10 WBC 7.9 RBC 4.01 L Hgb 11.1 L Hct 36.0 L MCV 89.8 MCH 27.7 MCHC 30.8 L RDW 13.0 Plt Count 274 MPV 9.6 Immature Gran % (Auto) 0.3 Neut % (Auto) 65.1 Lymph % (Auto) 20.1 [place] % (Auto) 12.6 H Eos % (Auto) 1.4 Baso % (Auto) 0.5 Lymph # (Auto) 1.6 [place] # (Auto) 1.0 Eos # (Auto) 0.1 Baso # (Auto) 0.0 Abs Immat Gran (auto) 0.02 Absolute Neuts (auto) 5.2 Absolute Nucleated RBC 0.000 Nucleated RBC % (auto) 0.0 ESR PT INR Sodium 138 Potassium 4.1 Chloride 105 Carbon Dioxide 26 Anion Gap 11 L BUN 10 Creatinine 0.93 Estim Creat Clear Calc 108.3 Estimated GFR > 60 POC Glucose 214 H Random Glucose Fasting Glucose 103 H Lactic Acid Uric Acid Calcium 8.6 Magnesium Total Bilirubin 0.4 Direct Bilirubin AST 18 D ALT 11 Alkaline Phosphatase 83 C-Reactive Protein Total Protein 5.6 L Albumin 3.2 L Vancomycin Trough Random Vancomycin COVID-19 ([facility]) [employer] 01/06/22 01/06/22 01/06/22 07:02 11:02 15:35 WBC RBC Hgb Hct MCV MCH MCHC RDW Plt Count MPV Immature Gran % (Auto) Neut % (Auto) Lymph % (Auto) [place] % (Auto) Eos % (Auto) Baso % (Auto) Lymph # (Auto) [place] # (Auto) Eos # (Auto) Baso # (Auto) Abs Immat Gran (auto) Absolute Neuts (auto) Absolute Nucleated RBC Nucleated RBC % (auto) ESR PT INR Sodium Potassium Chloride Carbon Dioxide Anion Gap BUN Creatinine Estim Creat Clear Calc Estimated GFR POC Glucose 77 122 H 132 H Random Glucose Fasting Glucose Lactic Acid Uric Acid Calcium Magnesium Total Bilirubin Direct Bilirubin AST ALT Alkaline Phosphatase C-Reactive Protein Total Protein Albumin Vancomycin Trough Random Vancomycin COVID-19 ([facility]) COVID-19 [employer] 01/06/22 01/06/22 01/07/22 18:58 19:12 06:33 WBC RBC Hgb Hct MCV MCH MCHC RDW Plt Count MPV Immature Gran % (Auto) Neut % (Auto) Lymph % (Auto) [place] % (Auto) Eos % (Auto) Baso % (Auto) Lymph # (Auto) [place] # (Auto) Eos # (Auto) Baso # (Auto) Abs Immat Gran (auto) Absolute Neuts (auto) Absolute Nucleated RBC Nucleated RBC % (auto) ESR PT 19.0 H INR 1.7 H Sodium Potassium Chloride Carbon Dioxide Anion Gap BUN Creatinine Estim Creat Clear Calc Estimated GFR POC Glucose 127 H Random Glucose Fasting Glucose Lactic Acid Uric Acid Calcium Magnesium Total Bilirubin Direct Bilirubin AST ALT Alkaline Phosphatase C-Reactive Protein Total Protein Albumin Vancomycin Trough 18.4 Random Vancomycin COVID-19 ([facility]) COVID-19 [employer] 01/07/22 01/07/22 01/07/22 06:33 06:34 06:34 WBC 7.5 RBC 3.78 L Hgb 10.6 L Hct 34.0 L MCV 89.9 MCH 28.0 MCHC 31.2 RDW 13.1 Plt Count 276 MPV 9.6 Immature Gran % (Auto) 0.4 Neut % (Auto) 66.2 Lymph % (Auto) 18.8 L [place] % (Auto) 12.5 H Eos % (Auto) 1.6 Baso % (Auto) 0.5 Lymph # (Auto) 1.4 [place] # (Auto) 0.9 Eos # (Auto) 0.1 Baso # (Auto) 0.0 Abs Immat Gran (auto) 0.03 Absolute Neuts (auto) 5.0 Absolute Nucleated RBC 0.000 Nucleated RBC % (auto) 0.0 ESR PT INR Sodium 135 Potassium 3.9 Chloride 104 Carbon Dioxide 23 Anion Gap 12 BUN 12 Creatinine 1.37 Estim Creat Clear Calc 73.5 Estimated GFR 53 POC Glucose Random Glucose Fasting Glucose 165 H D Lactic Acid Uric Acid Calcium 8.3 L Magnesium Total Bilirubin 0.5 Direct Bilirubin AST 18 ALT 13 Alkaline Phosphatase 91 C-Reactive Protein Total Protein 5.5 L Albumin 3.2 L Vancomycin Trough Random Vancomycin 18.8 COVID-19 ([facility]) COVID-19 Clin Com 01/07/22 01/07/22 07:18 13:19 WBC RBC Hgb Hct MCV MCH MCHC RDW Plt Count MPV Immature Gran % (Auto) Neut % (Auto) Lymph % (Auto) [place] % (Auto) Eos % (Auto) Baso % (Auto) Lymph # (Auto) [place] # (Auto) Eos # (Auto) Baso # (Auto) Abs Immat Gran (auto) Absolute Neuts (auto) Absolute Nucleated RBC Nucleated RBC % (auto) ESR PT INR Sodium Potassium Chloride Carbon Dioxide Anion Gap BUN Creatinine Estim Creat Clear Calc Estimated GFR POC Glucose 144 H 141 H Random Glucose Fasting Glucose Lactic Acid Uric Acid Calcium Magnesium Total Bilirubin Direct Bilirubin AST ALT Alkaline Phosphatase C-Reactive Protein Total Protein Albumin Vancomycin Trough Random Vancomycin COVID-19 ([facility]) COVID-19 Clin Com Airway Mallampati Class: II TM Dist: >3cm Neck ROM: Full Loose/Missing/Broken Teeth: Yes Heart: rrr Lungs: distant breath sounds Assessment and Plan Assessment Anesthesia Assessment: Anesthesia Plan Discussed and Chart Reviewed Final Anesthetic Review Family History of Problems with Anesthesia: No History of Problems with Anesthesia: No NPO: Yes ASA Class: III and Emergency Final Preanesthetic Review: Meds/Allgs Chart Reviewed, Consent Obtained/Reviewed and Anes Risks/Benef Reviewed Patient Risk: High Procedure Risk: Intermediate Anesthetic Plan Anesthetic Plan: GA Disposition: Inp. Admit - Standard Bed
--- NOTE | 2022-01-07 14:41 | P.CDIC_ITS ---
CDI Concurrent Query Documentation Clarification: PHYSICIAN'S DOCUMENTATION REQUEST Date of Query: 01/07/22 1441 Patient Name: Patric Gomez Admit Date: 01/03/22 Dear Doctor, A review of the medical record indicates additional documentation may be needed. Please review below and update the documentation accordingly. Clinical Indicators: Height: [] 5'8 Weight: [] 126.9 kg BMI: [] 42.5 Other Clinical Notes Supporting Significance of the BMI: Risk Factors/Clinical Indicators/Treatments If possible, please provide an associated diagnosis related to the abnormal BMI, such as: For a BMI >= 40: * Overweight * Obesity * Due to excess calories * Drug induced * Due to other cause * Severe or Morbid Obesity * With alveolar hypoventilation * Without alveolar hypoventilation Or: * BMI is not significant * Other (please specify) * Unable to determine Use of terms such as suspected, likely, concern for, or probable (associated with a specific diagnosis that is being evaluated, monitored, or treated as if it exists) are acceptable and can be coded in the inpatient setting, when documented at the time of discharge. Thank you, Sneha Espinoza [insert CDI's credentials] Extension: [4-digit phone extension] Please use your independent medical judgment in providing your response. THIS QUERY IS PART OF THE PERMANENT MEDICAL RECORD Provider Response: Other Other Diagnosis: Obesity 2nd excess calories
--- NOTE | 2022-01-07 14:48 | MHC.SHP ---
Pre-Procedural Eval Section A Date of Service: 01/07/22 The patient is an INPATIENT: Yes Section B Chief Complaint: Osteomyelitis Allergies: Allergies Allergy/AdvReac Type Severity Reaction Status Date / Time morphine AdvReac Intermediate Hallucinati Verified 07/06/21 06:43 ons Plan Diagnosis/Plan: Unchanged I have reviewed the history and physical and performed a pertinent physical examination on my patient. No changes have occurred unless specified.
--- NOTE | 2022-01-07 16:09 | P.OP_ITS ---
Operative Note Operative Note Date of Service: 01/07/22 Narrative: Preoperative diagnosis: Osteomyelitis, left great toe Postoperative diagnosis:same Procedure:Amputation left great toe Surgeon: Pawel Hinton MD Philosophy Faculty Member: Angela Khan PA-C Anesthesia: General LMA Indications for procedure:61 year old male patient presenting with a one week history of a red, swollen, painful left great toe and previous history of diabetes and fracture of left foot now with hardware in place. CT and MRI confirm and abscess and osteo at the distal Phalanx. He presents today for amputation of a left great toe. Operative findings: Red, swollen, tender left great toe Specimen: wound culture Estimated blood loss: 20 mm Complications: none Procedure details: patient was brought to the OR placed in a supine position. After administering general anesthesia the patient's left foot was prepped with Betadine and draped in a sterile fashion. A surgical time-out was called the consent confirmed. Patient received preoperative antibiotics and Venodyne boots were in place. Local anesthesia consisting of 0.5% Sensorcaine was then infiltrated as a digital block about the great toe. Elliptical incision was then created oriented over the metatarsal head carried out through subcutaneous tissue down to bone. Electrocautery was then used to dissect around the MP joint and then over to the distal metatarsal head. Periosteal elevator was used to further dissect down along the distal metatarsal beyond the MP joint. Hemostasis was assured using electrocautery. A bone cutter was then used to divide the distal metatarsal proximal to the MP joint. A rongeur was then used to further trim the bone at this level. After assuring adequate hemostasis the wounds were irrigated with saline solution suctioned dry. Dermis was then reapproximated using interrupted 3-0 Polysorb sutures. Skin was then closed using interrupted 3-0 nylon sutures. Sterile dressings consisting of quarter-inch packing was placed between the sutures followed by fluffed gauze, Kerlix and Saúl bandage. Patient tolerated the procedure well. Sponge, instrument, and needle counts were reported as correct. The patient was transferred to PACU in stable condition.
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
[2022-01-07 18:08] LABS: Glucose, Whole Blood 174 mg/dL (60-115)
[2022-01-07] MEDS: Insulin Lispro 100 UNIT/ML 3 ML VIAL 30 UNIT SUBCUT (18:30)
[2022-01-07 20:04] LABS: Glucose, Whole Blood 159 mg/dL (60-115)
[2022-01-07] MEDS: Acetaminophen 325 MG TABLET 650 MG PO (20:33)
[2022-01-07] MEDS: Atorvastatin Calcium 80 MG TABLET PO (20:34)
[2022-01-07] MEDS: Montelukast Sodium 10 MG TABLET PO (20:35)
[2022-01-07] MEDS: Insulin Glargine,Hum.rec.anlog 100 UNIT/ML 10 ML VIAL SUBCUT (20:36)
[2022-01-07] MEDS: QUEtiapine Fumarate 25 MG TABLET 12.5 MG PO (20:36)
[2022-01-07] MEDS: vancomycin HCL 1,000 MG in 0.9 % Sodium Chloride 250 ML 270 MG IV (20:43)
[2022-01-07] MEDS: Heparin Sodium,Porcine 5,000 UNIT/ML VIAL 5000 UNIT SUBCUT (23:24)
[2022-01-08 03:12] VITALS: BP 101/60; PULSE 75; RESP 19; TEMP 36.6; O2SAT 95
[2022-01-08] MEDS: oxyCODONE HCl Immed Release 5 MG TABLET 10 MG PO ×6 (04:07→23:01)
[2022-01-08] MEDS: Omeprazole 20 MG CAPSULE.DR PO ×2 (04:08→15:21)
[2022-01-08] MEDS: Piperacillin Sodium/Tazobactam 3.375 GM in 0.9 % Sodium Chloride 50 ML IV ×4 (04:12→23:01)
[2022-01-08] MEDS: HYDROmorphone HCl 1 MG/ML SYRINGE IVPUSH ×5 (04:42→20:44)
[2022-01-08 06:27] LABS: MANUAL DIFF FLAG NO
[2022-01-08 06:31] LABS: Basophils Percent Auto 0.1 % (0-2); Hemoglobin 10.2 g/dl (14.0-18.0); Imm Gran Abs Auto 0.05 X10*3/uL (0.00-0.03); Imm Gran Pct Auto 0.5 % (0.0-0.4); Lymphocytes Percent Auto 9.3 % (20-40); Mean Corpuscular HGB Conc 31.9 g/dl (31.0-36.0); Mean Corpuscular Hemoglobin 28.4 pg (27.0-33.0); Mean Corpuscular Volume 89.1 fL (80.0-98.0); Mean Platelet Volume 9.9 fL (9.4-12.4); Monocytes Absolute Auto 0.8 X10*3/uL (0.1-1.2); Monocytes Percent Auto 7.4 % (2-11); Neutrophils Absolute Auto 8.8 x10*3/uL (2.0-8.3); Neutrophils Percent Auto 82.7 % (45-73); Platelet Count 289 X10*3/uL (160-400); Red Blood Count 3.59 X10*6/uL (4.60-5.80); Red Cell Distribution Width 12.9 % (11.0-16.0); White Blood Count 10.7 X10*3/uL (4.8-10.8)
--- NOTE | 2022-01-08 06:38 | HO.POSTANES ---
Post Anesthesia Evaluation Post Anesthesia Evaluation Vital Signs: Vital Signs Temp Pulse Resp BP Pulse Ox 01/08/22 03:12 98 F 75 19 101/60 95 01/07/22 23:42 97.6 F 70 17 99/54 L 96 01/07/22 19:05 98.4 F 72 18 113/57 L 94 Anesthesia: General Mental Status: Awake Pain Control: Satisfactory (trouble with pain control throughout the night) Nausea/Vomiting: None Hydration: Adequate Anesthesia-Related Issues: No Anes. Related Issues
[2022-01-08 06:47] LABS: Alanine Aminotransferase 13 U/L (0-40); Albumin Level 3.1 g/dL (3.5-5.0); Alkaline Phosphatase 96 U/L (39-117); Anion Gap 13 (12-20); Aspartate Amino Transferase 17 U/L (5-37); Bilirubin Total 0.2 mg/dL (0.0-1.0); Blood Urea Nitrogen 15 mg/dL (9-16); Calcium 8.5 mg/dL (8.4-10.2); Carbon Dioxide 22 mmol/L (22-29); Chloride 107 mmol/L (96-108); Estimated Glomerular Filt Rate 48; Glucose Fasting 228 mg/dL (60-99); Potassium 4.3 mmol/L (3.3-5.1); Sodium 138 mmol/L (135-145); Total Protein 5.5 g/dL (6.5-8.0)
[2022-01-08 06:59] VITALS: BP 119/59; PULSE 69; RESP 18; TEMP 36.1; O2SAT 97
[2022-01-08 07:24] LABS: Glucose, Whole Blood 230 mg/dL (60-115)
--- NOTE | 2022-01-08 08:09 | PM.PNGS ---
Subjective Subjective Date of Service: 01/08/22 Interval history: Patient reports foot pain throughout the night. Physical Exam Vital Signs: Vital Signs: Last Vital Signs Temp 97 F 01/08/22 06:59 Pulse 69 01/08/22 06:59 Resp 18 01/08/22 06:59 BP 119/59 L 01/08/22 06:59 Pulse Ox 97 01/08/22 06:59 BMI result Body Mass Index 41.0 Const: General: alert and awake Nutritional Appearance: well nourished Orientation/consciousness: patient oriented x3 Limitations: no limitations Resp: Effort & Inspection: normal respiratory effort, no audible wheezes, no cough and no respiratory distress Skin: General skin exam: no rashes or lesions noted Neuro: General: patient oriented x3 Extrem: Other: Left foot dressings changed. Incision is clean and intact. Minimal bloody discharge noted from dressing. Clean dressing applied. Objective Data Active Medications Acetaminophen (Acetaminophen 325 Mg Tablet) 650 mg PO Q4H PRN PRN Reason: Headache Last Admin: 01/07/22 20:33 Dose: 650 mg Documented by: EWA Atorvastatin Calcium (Atorvastatin Calcium 80 Mg Tablet) 80 mg PO BEDTIME [facility] Last Admin: 01/07/22 20:34 Dose: 80 mg Documented by: EWA Docusate Sodium (Docusate Sodium 100 Mg Capsule) 100 mg PO DAILY PRN PRN Reason: Constipation Ezetimibe (Ezetimibe 10 Mg Tablet) 10 mg PO DAILY [facility] Last Admin: 01/07/22 08:38 Dose: 10 mg Documented by: NOE Gabapentin (Gabapentin 300 Mg Capsule) 300 mg PO TID [facility] Last Admin: 01/07/22 20:34 Dose: 300 mg Documented by: EWA Heparin Sodium (Porcine) (Heparin Sodium,Porcine 5,000 Unit/Ml Vial) 5,000 unit SUBCUT Q12H [facility] Last Admin: 01/07/22 23:24 Dose: 5,000 unit Documented by: EWA Hydromorphone HCl (Hydromorphone Hcl 1 Mg/Ml Syringe) 1 mg IVPUSH Q4H PRN; Protocol PRN Reason: Pain, Severe (Pain Scale 7-10) Last Admin: 01/08/22 04:42 Dose: 1 mg Documented by: EWA Hydroxyzine HCl (Hydroxyzine Hcl 10 Mg Tablet) 20 mg PO QID PRN PRN Reason: itch Last Admin: 01/05/22 08:38 Dose: 20 mg Documented by: CAMILO Piperacillin Sod/Tazobactam (Sod 3.375 gm/ Sodium Chloride) 50 mls @ 100 mls/hr IV Q6H [facility] Last Infusion: 01/08/22 04:55 Dose: 0 mls/hr Documented by: EWA Vancomycin HCl 1,000 mg/ (Sodium Chloride) 270 mls @ 270 mls/hr IV Q24H [facility] Last Infusion: 01/07/22 22:30 Dose: 0 mls/hr Documented by: EWA Insulin Glargine (Insulin Glargine,Hum.Rec.Anlog 100 Unit/Ml 10 Ml Vial) 50 unit SUBCUT DAILY@1200 [facility] Last Admin: 01/07/22 13:35 Dose: Not Given Documented by: NOE Non-Admin Reason: NPO Insulin Glargine (Insulin Glargine,Hum.Rec.Anlog 100 Unit/Ml 10 Ml Vial) 100 unit SUBCUT BEDTIME [facility] Last Admin: 01/07/22 20:36 Dose: 70 unit Documented by: EWA Comments: pt requests Insulin Human Lispro (Insulin Lispro 100 Unit/Ml 3 Ml Vial) 30 unit SUBCUT TIDAC [facility] Last Admin: 01/07/22 18:30 Dose: 30 unit Documented by: JOO Isosorbide Mononitrate (Isosorbide Mononitrate 30 Mg Tab.Er.24h) 30 mg PO DAILY [facility]; Protocol Last Admin: 01/07/22 10:08 Dose: 30 mg Documented by: NOE Loratadine (Loratadine 10 Mg Tablet) 10 mg PO DAILY [facility] Last Admin: 01/07/22 10:09 Dose: 10 mg Documented by: NOE Losartan Potassium (Losartan Potassium 25 Mg Tablet) 25 mg PO DAILY [facility]; Protocol Last Admin: 01/07/22 10:07 Dose: 25 mg Documented by: NOE Meclizine HCl (Meclizine Hcl 25 Mg Tablet) 25 mg PO TID PRN PRN Reason: dizziness Last Admin: 01/05/22 08:38 Dose: 25 mg Documented by: HO.COTEMA Metoprolol Tartrate (Metoprolol Tartrate 25 Mg Tablet) 25 mg PO BID [facility]; Protocol Last Admin: 01/07/22 20:34 Dose: 25 mg Documented by: EWA Montelukast Sodium (Montelukast Sodium 10 Mg Tablet) 10 mg PO BEDTIME [facility] Last Admin: 01/07/22 20:35 Dose: 10 mg Documented by: EWA Omeprazole (Omeprazole 20 Mg Capsule.Dr) 20 mg PO BID@0630,1630 [facility] Last Admin: 01/08/22 04:08 Dose: 20 mg Documented by: EWA Ondansetron HCl (Ondansetron Hcl 4 Mg/2 Ml Vial) 4 mg IVPUSH Q8H PRN PRN Reason: Nausea and Vomiting Oxycodone HCl (Oxycodone Hcl Immed Release 5 Mg Tablet) 10 mg PO Q4H [facility] Last Admin: 01/08/22 07:02 Dose: 10 mg Documented by: EWA Oxycodone HCl (Oxycodone Hcl Er 10 Mg Tab.Er.12h) 20 mg PO BID [facility] Last Admin: 01/07/22 20:33 Dose: 20 mg Documented by: EWA Pharmacy Consult (Consult Rx Perform Med Rec) 1 each MISCELLANE ONCE PRN PRN Reason: Consult order Pharmacy Consult (Consult Rx Vancomycin Dosing) 1 each MISCELLANE DAILY PRN PRN Reason: Consult order Quetiapine Fumarate (Quetiapine Fumarate 25 Mg Tablet) 12.5 mg PO BEDTIME [facility] Last Admin: 01/07/22 20:36 Dose: 12.5 mg Documented by: EWA Sodium Chloride (0.9 % Sodium Chloride Flush 3 Ml Syringe) 3 ml IVFLUSH QSHIFT [facility] Last Admin: 01/07/22 23:25 Dose: 3 ml Documented by: EWA Comments: 5 ml picc Thiamine HCl (Thiamine Hcl 100 Mg Tablet) 100 mg PO DAILY [facility] Last Admin: 01/07/22 08:42 Dose: 100 mg Documented by: NOE Valacyclovir HCl (Valacyclovir Hcl 1,000 Mg Tablet) 1,000 mg PO BID [facility] Last Admin: 01/07/22 20:34 Dose: 1,000 mg Documented by: EWA Venlafaxine HCl (Venlafaxine Hcl 25 Mg Tablet) 100 mg PO BID [facility] Last Admin: 01/07/22 20:35 Dose: 100 mg Documented by: EAW Zolpidem Tartrate (Zolpidem Tartrate 5 Mg Tablet) 10 mg PO BEDTIME PRN PRN Reason: insomnia Last Admin: 01/06/22 20:56 Dose: 10 mg Documented by: TOPHER Labs CBC & Chem 7: 01/08/22 05:55 01/08/22 05:55 Labs: Laboratory Results - last 24 hr 01/07/22 01/07/22 01/07/22 13:19 18:04 19:47 MCV MCH MCHC RDW Plt Count MPV Immature Gran % (Auto) Neut % (Auto) Lymph % (Auto) [place] % (Auto) Eos % (Auto) Baso % (Auto) Lymph # (Auto) [place] # (Auto) Eos # (Auto) Baso # (Auto) Abs Immat Gran (auto) Absolute Neuts (auto) Absolute Nucleated RBC Nucleated RBC % (auto) Anion Gap Estim Creat Clear Calc Estimated GFR POC Glucose 141 H 174 H 159 H Fasting Glucose Calcium Total Bilirubin AST ALT Alkaline Phosphatase Total Protein Albumin 01/08/22 01/08/22 01/08/22 05:55 05:55 06:59 MCV 89.1 MCH 28.4 MCHC 31.9 RDW 12.9 Plt Count 289 MPV 9.9 Immature Gran % (Auto) 0.5 H Neut % (Auto) 82.7 H Lymph % (Auto) 9.3 L [place] % (Auto) 7.4 Eos % (Auto) 0.0 Baso % (Auto) 0.1 Lymph # (Auto) 1.0 L [place] # (Auto) 0.8 Eos # (Auto) 0.0 Baso # (Auto) 0.0 Abs Immat Gran (auto) 0.05 H Absolute Neuts (auto) 8.8 H Absolute Nucleated RBC 0.000 Nucleated RBC % (auto) 0.0 Anion Gap 13 Estim Creat Clear Calc 68.0 Estimated GFR 48 POC Glucose 230 H Fasting Glucose 228 H D Calcium 8.5 Total Bilirubin 0.2 AST 17 ALT 13 Alkaline Phosphatase 96 Total Protein 5.5 L Albumin 3.1 L Procedures Date of Service Date of Service: 01/08/22 Progress Note: A&P Assessment and plan (1) Abscess of great toe: Status: Acute (2) Osteomyelitis: Status: Acute Plan Pod 1 following amputation of left great toe. Patient tolerated procedure well. Wounds are clean and intact today. Patient has gin between the incision which will be removed tomorrow. Patient should keep left leg elevated as much as possible. Fall Risk Details Current Medications: Current Medications Acetaminophen (Acetaminophen 325 Mg Tablet) 650 mg PO Q4H PRN PRN Reason: Headache Last Admin: 01/07/22 20:33 Dose: 650 mg Documented by: Atorvastatin Calcium (Atorvastatin Calcium 80 Mg Tablet) 80 mg PO BEDTIME [facility] Last Admin: 01/07/22 20:34 Dose: 80 mg Documented by: Docusate Sodium (Docusate Sodium 100 Mg Capsule) 100 mg PO DAILY PRN PRN Reason: Constipation Ezetimibe (Ezetimibe 10 Mg Tablet) 10 mg PO DAILY [facility] Last Admin: 01/07/22 08:38 Dose: 10 mg Documented by: Gabapentin (Gabapentin 300 Mg Capsule) 300 mg PO TID [facility] Last Admin: 01/07/22 20:34 Dose: 300 mg Documented by: Heparin Sodium (Porcine) (Heparin Sodium,Porcine 5,000 Unit/Ml Vial) 5,000 unit SUBCUT Q12H [facility] Last Admin: 01/07/22 23:24 Dose: 5,000 unit Documented by: Hydromorphone HCl (Hydromorphone Hcl 1 Mg/Ml Syringe) 1 mg IVPUSH Q4H PRN; Protocol PRN Reason: Pain, Severe (Pain Scale 7-10) Last Admin: 01/08/22 04:42 Dose: 1 mg Documented by: Hydroxyzine HCl (Hydroxyzine Hcl 10 Mg Tablet) 20 mg PO QID PRN PRN Reason: itch Last Admin: 01/05/22 08:38 Dose: 20 mg Documented by: Piperacillin Sod/Tazobactam (Sod 3.375 gm/ Sodium Chloride) 50 mls @ 100 mls/hr IV Q6H [facility] Last Infusion: 01/08/22 04:55 Dose: Infused Documented by: Vancomycin HCl 1,000 mg/ (Sodium Chloride) 270 mls @ 270 mls/hr IV Q24H [facility] Last Infusion: 01/07/22 22:30 Dose: Infused Documented by: Insulin Glargine (Insulin Glargine,Hum.Rec.Anlog 100 Unit/Ml 10 Ml Vial) 50 unit SUBCUT DAILY@1200 [facility] Last Admin: 01/07/22 13:35 Dose: Not Given Documented by: Insulin Glargine (Insulin Glargine,Hum.Rec.Anlog 100 Unit/Ml 10 Ml Vial) 100 unit SUBCUT BEDTIME [facility] Last Admin: 01/07/22 20:36 Dose: 70 unit Documented by: Insulin Human Lispro (Insulin Lispro 100 Unit/Ml 3 Ml Vial) 30 unit SUBCUT TIDAC [facility] Last Admin: 01/07/22 18:30 Dose: 30 unit Documented by: Isosorbide Mononitrate (Isosorbide Mononitrate 30 Mg Tab.Er.24h) 30 mg PO DAILY [facility]; Protocol Last Admin: 01/07/22 10:08 Dose: 30 mg Documented by: Loratadine (Loratadine 10 Mg Tablet) 10 mg PO DAILY [facility] Last Admin: 01/07/22 10:09 Dose: 10 mg Documented by: Losartan Potassium (Losartan Potassium 25 Mg Tablet) 25 mg PO DAILY [facility]; Protocol Last Admin: 01/07/22 10:07 Dose: 25 mg Documented by: Meclizine HCl (Meclizine Hcl 25 Mg Tablet) 25 mg PO TID PRN PRN Reason: dizziness Last Admin: 01/05/22 08:38 Dose: 25 mg Documented by: Metoprolol Tartrate (Metoprolol Tartrate 25 Mg Tablet) 25 mg PO BID [facility]; Protocol Last Admin: 01/07/22 20:34 Dose: 25 mg Documented by: Montelukast Sodium (Montelukast Sodium 10 Mg Tablet) 10 mg PO BEDTIME [facility] Last Admin: 01/07/22 20:35 Dose: 10 mg Documented by: Omeprazole (Omeprazole 20 Mg Capsule.Dr) 20 mg PO BID@0630,1630 [facility] Last Admin: 01/08/22 04:08 Dose: 20 mg Documented by: Ondansetron HCl (Ondansetron Hcl 4 Mg/2 Ml Vial) 4 mg IVPUSH Q8H PRN PRN Reason: Nausea and Vomiting Oxycodone HCl (Oxycodone Hcl Immed Release 5 Mg Tablet) 10 mg PO Q4H [facility] Last Admin: 01/08/22 07:02 Dose: 10 mg Documented by: Oxycodone HCl (Oxycodone Hcl Er 10 Mg Tab.Er.12h) 20 mg PO BID [facility] Last Admin: 01/07/22 20:33 Dose: 20 mg Documented by: Pharmacy Consult (Consult Rx Perform Med Rec) 1 each MISCELLANE ONCE PRN PRN Reason: Consult order Pharmacy Consult (Consult Rx Vancomycin Dosing) 1 each MISCELLANE DAILY PRN PRN Reason: Consult order Quetiapine Fumarate (Quetiapine Fumarate 25 Mg Tablet) 12.5 mg PO BEDTIME [facility] Last Admin: 01/07/22 20:36 Dose: 12.5 mg Documented by: Sodium Chloride (0.9 % Sodium Chloride Flush 3 Ml Syringe) 3 ml IVFLUSH QSHIFT [facility] Last Admin: 01/07/22 23:25 Dose: 3 ml Documented by: Thiamine HCl (Thiamine Hcl 100 Mg Tablet) 100 mg PO DAILY [facility] Last Admin: 01/07/22 08:42 Dose: 100 mg Documented by: Valacyclovir HCl (Valacyclovir Hcl 1,000 Mg Tablet) 1,000 mg PO BID [facility] Last Admin: 01/07/22 20:34 Dose: 1,000 mg Documented by: Venlafaxine HCl (Venlafaxine Hcl 25 Mg Tablet) 100 mg PO BID [facility] Last Admin: 01/07/22 20:35 Dose: 100 mg Documented by: Zolpidem Tartrate (Zolpidem Tartrate 5 Mg Tablet) 10 mg PO BEDTIME PRN PRN Reason: insomnia Last Admin: 01/06/22 20:56 Dose: 10 mg Documented by: Time Spent With Patient Time: Total time spent is greater than 50% in coordination of care (as documented) at patient's floor/unit and/or counseling patient: Time with patient: 15 - 24 minutes Quality Stroke Does the patient have a stroke diagnosis?: No VTE Prior VTE?: No VTE Risk Level:: Medical - moderate - high VTE Device Contraindication: Treatment Not Indicated VTE Drug Contraindication: N/A - Med Ordered
--- NOTE | 2022-01-08 08:38 | MHC.CM.PN ---
PER REVIEW OF SURGICAL NOTE, PATIENT HAS BHAVESH BETWEEN THE INCISION AND WILL BE REMOVED TOMORROW (01/09/22) CASE MANAGEMENT FOLLOWING FOR PLAN FOR LT IV ABX AT HOME VERSUS HOME ON PO ABX.
[2022-01-08] MEDS: Insulin Lispro 100 UNIT/ML 3 ML VIAL 30 UNIT SUBCUT ×3 (09:04→16:56)
[2022-01-08] MEDS: Loratadine 10 MG TABLET PO (09:05)
[2022-01-08] MEDS: Ezetimibe 10 MG TABLET PO (09:05)
[2022-01-08] MEDS: 0.9 % Sodium Chloride Flush 3 ML SYRINGE IVFLUSH ×2 (09:05→15:22)
[2022-01-08] MEDS: Isosorbide Mononitrate 30 MG TAB.ER.24H PO (09:06)
[2022-01-08] MEDS: Metoprolol Tartrate 25 MG TABLET PO ×2 (09:06→20:45)
[2022-01-08] MEDS: Gabapentin 300 MG CAPSULE PO ×3 (09:06→20:45)
[2022-01-08] MEDS: valACYclovir HCL 1,000 MG TABLET 1000 MG PO ×2 (09:06→20:45)
[2022-01-08] MEDS: Losartan Potassium 25 MG TABLET PO (09:07)
[2022-01-08] MEDS: oxyCODONE HCl ER 10 MG TAB.ER.12H 20 MG PO ×2 (09:07→20:44)
[2022-01-08] MEDS: Thiamine HCL 100 MG TABLET PO (09:08)
[2022-01-08] MEDS: Venlafaxine HCL 25 MG TABLET 100 MG PO ×2 (09:29→20:45)
[2022-01-08 11:04] VITALS: BP 137/71; PULSE 96; RESP 20; TEMP 36.1; O2SAT 97
[2022-01-08 11:11] LABS: Glucose, Whole Blood 231 mg/dL (60-115)
--- NOTE | 2022-01-08 11:40 | HO.PM.IMPN ---
Subjective Subjective Date of Service: 01/08/22 Interval History: Did well with amputation. Pain control adequate. No fever chills Review of Systems Denies chest pain Denies shortness of breath Denies nausea vomiting diarrhea Admits to pain left great toe Physical Exam Vital Signs: Vital Signs: Last Vital Signs Temp 97 F 01/08/22 11:04 Pulse 96 01/08/22 11:04 Resp 20 01/08/22 11:04 BP 137/71 01/08/22 11:04 Pulse Ox 97 01/08/22 11:04 BMI result Body Mass Index 41.0 Const: Other: Awake alert oriented x3 no acute distress; uncomfortable secondary to pain Resp: Other: Clear to auscultation bilaterally no rales rhonchi or wheezes Cardio: Other: No S4; positive S1-S2; no S3 murmurs rubs or gallops GI: Other: Soft nontender nondistended with normoactive bowel sounds Extrem: Other: Bulky dressing left foot Objective Data Active Medications Acetaminophen (Acetaminophen 325 Mg Tablet) 650 mg PO Q4H PRN PRN Reason: Headache Last Admin: 01/07/22 20:33 Dose: 650 mg Documented by: EWA Atorvastatin Calcium (Atorvastatin Calcium 80 Mg Tablet) 80 mg PO BEDTIME [facility] Last Admin: 01/07/22 20:34 Dose: 80 mg Documented by: EWA Docusate Sodium (Docusate Sodium 100 Mg Capsule) 100 mg PO DAILY PRN PRN Reason: Constipation Ezetimibe (Ezetimibe 10 Mg Tablet) 10 mg PO DAILY [facility] Last Admin: 01/08/22 09:05 Dose: 10 mg Documented by: FRANCY Gabapentin (Gabapentin 300 Mg Capsule) 300 mg PO TID [facility] Last Admin: 01/08/22 09:06 Dose: 300 mg Documented by: FRANCY Heparin Sodium (Porcine) (Heparin Sodium,Porcine 5,000 Unit/Ml Vial) 5,000 unit SUBCUT Q12H [facility] Last Admin: 01/07/22 23:24 Dose: 5,000 unit Documented by: EWA Hydromorphone HCl (Hydromorphone Hcl 1 Mg/Ml Syringe) 1 mg IVPUSH Q4H PRN; Protocol PRN Reason: Pain, Severe (Pain Scale 7-10) Last Admin: 01/08/22 09:30 Dose: 1 mg Documented by: FRANCY Hydroxyzine HCl (Hydroxyzine Hcl 10 Mg Tablet) 20 mg PO QID PRN PRN Reason: itch Last Admin: 01/05/22 08:38 Dose: 20 mg Documented by: COTEMA Piperacillin Sod/Tazobactam (Sod 3.375 gm/ Sodium Chloride) 50 mls @ 100 mls/hr IV Q6H [facility] Last Infusion: 01/08/22 04:55 Dose: 0 mls/hr Documented by: EWA Vancomycin HCl 1,000 mg/ (Sodium Chloride) 270 mls @ 270 mls/hr IV Q24H [facility] Last Infusion: 01/07/22 22:30 Dose: 0 mls/hr Documented by: EWA Insulin Glargine (Insulin Glargine,Hum.Rec.Anlog 100 Unit/Ml 10 Ml Vial) 50 unit SUBCUT DAILY@1200 [facility] Last Admin: 01/07/22 13:35 Dose: Not Given Documented by: NOE Non-Admin Reason: NPO Insulin Glargine (Insulin Glargine,Hum.Rec.Anlog 100 Unit/Ml 10 Ml Vial) 100 unit SUBCUT BEDTIME [facility] Last Admin: 01/07/22 20:36 Dose: 70 unit Documented by: EWA Comments: pt requests Insulin Human Lispro (Insulin Lispro 100 Unit/Ml 3 Ml Vial) 30 unit SUBCUT TIDAC [facility] Last Admin: 01/08/22 09:04 Dose: 30 unit Documented by: FRANCY Isosorbide Mononitrate (Isosorbide Mononitrate 30 Mg Tab.Er.24h) 30 mg PO DAILY [facility]; Protocol Last Admin: 01/08/22 09:06 Dose: 30 mg Documented by: FRANCY Loratadine (Loratadine 10 Mg Tablet) 10 mg PO DAILY [facility] Last Admin: 01/08/22 09:05 Dose: 10 mg Documented by: FRANCY Losartan Potassium (Losartan Potassium 25 Mg Tablet) 25 mg PO DAILY [facility]; Protocol Last Admin: 01/08/22 09:07 Dose: 25 mg Documented by: FRANCY Meclizine HCl (Meclizine Hcl 25 Mg Tablet) 25 mg PO TID PRN PRN Reason: dizziness Last Admin: 01/05/22 08:38 Dose: 25 mg Documented by: CAMILO Metoprolol Tartrate (Metoprolol Tartrate 25 Mg Tablet) 25 mg PO BID [facility]; Protocol Last Admin: 01/08/22 09:06 Dose: 25 mg Documented by: FRANCY Montelukast Sodium (Montelukast Sodium 10 Mg Tablet) 10 mg PO BEDTIME [facility] Last Admin: 01/07/22 20:35 Dose: 10 mg Documented by: EWA Omeprazole (Omeprazole 20 Mg Capsule.Dr) 20 mg PO BID@0630,1630 [facility] Last Admin: 01/08/22 04:08 Dose: 20 mg Documented by: EWA Ondansetron HCl (Ondansetron Hcl 4 Mg/2 Ml Vial) 4 mg IVPUSH Q8H PRN PRN Reason: Nausea and Vomiting Oxycodone HCl (Oxycodone Hcl Immed Release 5 Mg Tablet) 10 mg PO Q4H [facility] Last Admin: 01/08/22 07:02 Dose: 10 mg Documented by: EWA Oxycodone HCl (Oxycodone Hcl Er 10 Mg Tab.Er.12h) 20 mg PO BID [facility] Last Admin: 01/08/22 09:07 Dose: 20 mg Documented by: FRANCY Pharmacy Consult (Consult Rx Perform Med Rec) 1 each MISCELLANE ONCE PRN PRN Reason: Consult order Pharmacy Consult (Consult Rx Vancomycin Dosing) 1 each MISCELLANE DAILY PRN PRN Reason: Consult order Quetiapine Fumarate (Quetiapine Fumarate 25 Mg Tablet) 12.5 mg PO BEDTIME [facility] Last Admin: 01/07/22 20:36 Dose: 12.5 mg Documented by: EWA Sodium Chloride (0.9 % Sodium Chloride Flush 3 Ml Syringe) 3 ml IVFLUSH QSHIFT [facility] Last Admin: 01/08/22 09:05 Dose: 3 ml Documented by: FRANCY Thiamine HCl (Thiamine Hcl 100 Mg Tablet) 100 mg PO DAILY [facility] Last Admin: 01/08/22 09:08 Dose: 100 mg Documented by: FRANCY Valacyclovir HCl (Valacyclovir Hcl 1,000 Mg Tablet) 1,000 mg PO BID [facility] Last Admin: 01/08/22 09:06 Dose: 1,000 mg Documented by: FRANCY Venlafaxine HCl (Venlafaxine Hcl 25 Mg Tablet) 100 mg PO BID [facility] Last Admin: 01/08/22 09:29 Dose: 100 mg Documented by: FRANCY Zolpidem Tartrate (Zolpidem Tartrate 5 Mg Tablet) 10 mg PO BEDTIME PRN PRN Reason: insomnia Last Admin: 01/06/22 20:56 Dose: 10 mg Documented by: TOPHER Labs CBC & Chem 7: 01/09/22 05:38 01/09/22 05:38 Labs: Laboratory Results - last 24 hr 01/07/22 01/07/22 01/07/22 13:19 18:04 19:47 MCV MCH MCHC RDW Plt Count MPV Immature Gran % (Auto) Neut % (Auto) Lymph % (Auto) [place] % (Auto) Eos % (Auto) Baso % (Auto) Lymph # (Auto) [place] # (Auto) Eos # (Auto) Baso # (Auto) Abs Immat Gran (auto) Absolute Neuts (auto) Absolute Nucleated RBC Nucleated RBC % (auto) Anion Gap Estim Creat Clear Calc Estimated GFR POC Glucose 141 H 174 H 159 H Fasting Glucose Calcium Total Bilirubin AST ALT Alkaline Phosphatase Total Protein Albumin 01/08/22 01/08/22 01/08/22 05:55 05:55 06:59 MCV 89.1 MCH 28.4 MCHC 31.9 RDW 12.9 Plt Count 289 MPV 9.9 Immature Gran % (Auto) 0.5 H Neut % (Auto) 82.7 H Lymph % (Auto) 9.3 L [place] % (Auto) 7.4 Eos % (Auto) 0.0 Baso % (Auto) 0.1 Lymph # (Auto) 1.0 L [place] # (Auto) 0.8 Eos # (Auto) 0.0 Baso # (Auto) 0.0 Abs Immat Gran (auto) 0.05 H Absolute Neuts (auto) 8.8 H Absolute Nucleated RBC 0.000 Nucleated RBC % (auto) 0.0 Anion Gap 13 Estim Creat Clear Calc 68.0 Estimated GFR 48 POC Glucose 230 H Fasting Glucose 228 H D Calcium 8.5 Total Bilirubin 0.2 AST 17 ALT 13 Alkaline Phosphatase 96 Total Protein 5.5 L Albumin 3.1 L 01/08/22 11:04 MCV MCH MCHC RDW Plt Count MPV Immature Gran % (Auto) Neut % (Auto) Lymph % (Auto) [place] % (Auto) Eos % (Auto) Baso % (Auto) Lymph # (Auto) [place] # (Auto) Eos # (Auto) Baso # (Auto) Abs Immat Gran (auto) Absolute Neuts (auto) Absolute Nucleated RBC Nucleated RBC % (auto) Anion Gap Estim Creat Clear Calc Estimated GFR POC Glucose 231 H Fasting Glucose Calcium Total Bilirubin AST ALT Alkaline Phosphatase Total Protein Albumin Microbiology Microbiology Results: Microbiology 01/07/22 Unknown Gram Stain - Final Toe Left Great Routine Culture - Preliminary Culture in progress. Assessment and Plan (1) Abscess of great toe: Status: Acute (2) DMII (diabetes mellitus, type 2): Status: Acute (3) Hypertension: Status: Acute (4) Osteomyelitis: Status: Acute Plan 61-year-old male with past medical history of diabetes, coronary artery disease who presents to the hospital with complaints of left toe pain found to have osteomyelitis; status post left great toe amputation 01/07/2022 1.Left toe acute osteomyelitis/cellulitis S/P -continue vancomycin and Zosyn(4)..will continue for cellulitis -BCs neg x 48 HRS -surgery(left great toe amp) today(EKG reviewed) Mr Gomez is a moderate but acceptable CV risk for toe amputaion. There are no medically prohibitive issues to surgery. May proceed as outlined by Dr Hinton. 2. 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 5.Hypertension - acceptable control on current therapies DVT prophylaxis: Lovenox Full Code Requires inpatient hospitalization secondary to need for IV antibiotics for osteomyelitis; for amputaion today. Likely will need 2 additional midnights to clear remaining foot cellulitis Quality Stroke Does the patient have a stroke diagnosis?: No VTE Prior VTE?: No VTE Risk Level:: Medical - moderate - high VTE Device Contraindication: Treatment Not Indicated VTE Drug Contraindication: N/A - Med Ordered
[2022-01-08] MEDS: Heparin Sodium,Porcine 5,000 UNIT/ML VIAL 5000 UNIT SUBCUT ×2 (12:55→23:02)
[2022-01-08] MEDS: Insulin Glargine,Hum.rec.anlog 100 UNIT/ML 10 ML VIAL 50 UNIT SUBCUT (12:55)
[2022-01-08 15:22] VITALS: BP 117/56; PULSE 69; RESP 17; TEMP 36.6; O2SAT 98
[2022-01-08 15:58] LABS: Glucose, Whole Blood 196 mg/dL (60-115)
[2022-01-08 19:57] VITALS: BP 107/54; PULSE 72; RESP 18; TEMP 36.2; O2SAT 100
[2022-01-08 20:07] LABS: Vancomycin Random 12.9 mcg/mL (15-20)
[2022-01-08 20:08] LABS: Glucose, Whole Blood 71 mg/dL (60-115)
--- NOTE | 2022-01-08 20:19 | MHC.PIE ---
p; vanco trough 12.9. i; dr atkinson notified - well speak to pharmacy e; will cont to monitor
[2022-01-08 20:36] LABS: Glucose, Whole Blood 64 mg/dL (60-115)
[2022-01-08] MEDS: vancomycin HCL 1,250 MG in 0.9 % Sodium Chloride 250 ML 166.67 MG IV (20:43)
[2022-01-08] MEDS: Montelukast Sodium 10 MG TABLET PO (20:44)
[2022-01-08] MEDS: Atorvastatin Calcium 80 MG TABLET PO (20:45)
[2022-01-08] MEDS: QUEtiapine Fumarate 25 MG TABLET 12.5 MG PO (20:46)
[2022-01-08 21:16] LABS: Glucose, Whole Blood 71 mg/dL (60-115)
[2022-01-08] MEDS: Acetaminophen 325 MG TABLET 650 MG PO (23:01)
[2022-01-08] MEDS: Zolpidem Tartrate 5 MG TABLET 10 MG PO (23:02)
[2022-01-08 23:56] VITALS: BP 111/55; PULSE 70; RESP 18; TEMP 36.4; O2SAT 98
[2022-01-09] MEDS: HYDROmorphone HCl 1 MG/ML SYRINGE IVPUSH ×6 (01:31→23:23)
[2022-01-09 03:21] VITALS: BP 113/53; PULSE 75; RESP 18; TEMP 36.5; O2SAT 98
[2022-01-09] MEDS: Piperacillin Sodium/Tazobactam 3.375 GM in 0.9 % Sodium Chloride 50 ML IV ×4 (05:05→23:22)
[2022-01-09] MEDS: Omeprazole 20 MG CAPSULE.DR PO ×2 (05:06→16:29)
[2022-01-09 06:12] LABS: MANUAL DIFF FLAG NO
[2022-01-09 06:21] LABS: Basophils Percent Auto 0.4 % (0-2); Eosinophils Absolute Auto 0.1 X10*3/uL (0.0-0.4); Eosinophils Percent Auto 1.3 % (0-4); Hematocrit 31.4 % (42.0-52.0); Hemoglobin 9.9 g/dl (14.0-18.0); Imm Gran Abs Auto 0.04 X10*3/uL (0.00-0.03); Imm Gran Pct Auto 0.4 % (0.0-0.4); Lymphocytes Absolute Auto 2.2 X10*3/uL (1.2-4.9); Lymphocytes Percent Auto 21.5 % (20-40); Mean Corpuscular HGB Conc 31.5 g/dl (31.0-36.0); Mean Corpuscular Hemoglobin 28.1 pg (27.0-33.0); Mean Corpuscular Volume 89.2 fL (80.0-98.0); Mean Platelet Volume 10.1 fL (9.4-12.4); Monocytes Absolute Auto 1.2 X10*3/uL (0.1-1.2); Monocytes Percent Auto 11.8 % (2-11); Neutrophils Absolute Auto 6.5 x10*3/uL (2.0-8.3); Neutrophils Percent Auto 64.6 % (45-73); Platelet Count 315 X10*3/uL (160-400); Red Blood Count 3.52 X10*6/uL (4.60-5.80); Red Cell Distribution Width 13.1 % (11.0-16.0); White Blood Count 10.1 X10*3/uL (4.8-10.8)
[2022-01-09 06:47] LABS: Alanine Aminotransferase 11 U/L (0-40); Albumin Level 3.1 g/dL (3.5-5.0); Alkaline Phosphatase 88 U/L (39-117); Anion Gap 11 (12-20); Aspartate Amino Transferase 20 U/L (5-37); Bilirubin Total 0.2 mg/dL (0.0-1.0); Blood Urea Nitrogen 15 mg/dL (9-16); Calcium 8.7 mg/dL (8.4-10.2); Carbon Dioxide 25 mmol/L (22-29); Chloride 108 mmol/L (96-108); Creatinine Clr Calc Pharmacy 79.3; Estimated Glomerular Filt Rate 58; Glucose Fasting 73 mg/dL (60-99); Potassium 4.1 mmol/L (3.3-5.1); Sodium 140 mmol/L (135-145); Total Protein 5.6 g/dL (6.5-8.0)
--- NOTE | 2022-01-09 07:13 | HE.PHANOTE ---
RE Vancomycin Patients last trough was 12.9. SCr trending down @1.27 today. Continue 1250mg q24h. There is a trough scheduled for 1900. May need to increase dose based on level. Thanks Henrry
[2022-01-09 07:17] VITALS: BP 122/61; PULSE 66; RESP 17; TEMP 36.2; O2SAT 97
[2022-01-09 08:15] LABS: Glucose, Whole Blood 65 mg/dL (60-115)
--- NOTE | 2022-01-09 08:15 | P.CDIC_ITS ---
CDI Concurrent Query Documentation Clarification: PHYSICIAN'S DOCUMENTATION REQUEST Date of Query: 01/09/22 0816 Patient Name: Patric Gomez Admit Date: 01/03/22 Dear Doctor, A review of the medical record indicates additional documentation may be needed. Please review below and update the documentation accordingly. Clinical Indicators: Documentation includes the conditions of Cellulitis and Diabetes Mellitus. Additional clinical indicators in the record include: Risk Factors/Clinical Indicators/Treatments Per ED, infected toe LGT Left lower extremity swelling, redness, pain Hx IDDM Per H&P: Cellulitis, L toe Acute Osteomyelitis Please clarify the relationship between these conditions: * Yes, Cellulitis is related to / associated with / due to Diabetes Mellitus * No, Cellulitis is not related to / associated with / due to Diabetes Mellitus * Unable to determine Use of terms such as suspected, likely, concern for, or probable (associated with a specific diagnosis that is being evaluated, monitored, or treated as if it exists) are acceptable and can be coded in the inpatient setting, when documented at the time of discharge. Thank you, Sneha Espinoza RN Extension: [phone] Please use your independent medical judgment in providing your response. THIS QUERY IS PART OF THE PERMANENT MEDICAL RECORD Provider Response: Other Other Diagnosis: Cellulitis is not related to diabetes mellitus is
[2022-01-09] MEDS: Venlafaxine HCL 25 MG TABLET 100 MG PO ×2 (08:46→21:35)
[2022-01-09] MEDS: oxyCODONE HCl ER 10 MG TAB.ER.12H 20 MG PO (08:47)
[2022-01-09] MEDS: valACYclovir HCL 1,000 MG TABLET 1000 MG PO ×2 (08:47→21:35)
[2022-01-09] MEDS: Thiamine HCL 100 MG TABLET PO (08:47)
[2022-01-09] MEDS: Ezetimibe 10 MG TABLET PO (08:47)
[2022-01-09] MEDS: Gabapentin 300 MG CAPSULE PO ×3 (08:47→21:34)
[2022-01-09] MEDS: Loratadine 10 MG TABLET PO (08:47)
[2022-01-09] MEDS: Metoprolol Tartrate 25 MG TABLET PO ×2 (08:47→21:34)
[2022-01-09] MEDS: Losartan Potassium 25 MG TABLET PO (08:47)
[2022-01-09] MEDS: Isosorbide Mononitrate 30 MG TAB.ER.24H PO (08:47)
[2022-01-09] MEDS: 0.9 % Sodium Chloride Flush 3 ML SYRINGE IVFLUSH ×3 (08:48→21:43)
--- NOTE | 2022-01-09 09:15 | PM.PNGS ---
Subjective Subjective Date of Service: 01/09/22 Interval history: Pain a little better, was able to sleep last night, but still requesting dilaudid. Tolerating diet. Physical Exam Vital Signs: Vital Signs: Last Vital Signs Temp 97.2 F 01/09/22 07:17 Pulse 66 01/09/22 07:17 Resp 17 01/09/22 07:17 BP 122/61 01/09/22 07:17 Pulse Ox 97 01/09/22 07:17 BMI result Body Mass Index 41.0 Const: General: comfortable, no acute distress and alert Resp: Effort & Inspection: normal respiratory effort Skin: Other: warm and dry Extrem: Other: left great toe amputation site clean, edema & erythema decreased, sutures intact, wound gin removed, no drainage noted Objective Data Active Medications Acetaminophen (Acetaminophen 325 Mg Tablet) 650 mg PO Q4H PRN PRN Reason: Headache Last Admin: 01/08/22 23:01 Dose: 650 mg Documented by: EWA Atorvastatin Calcium (Atorvastatin Calcium 80 Mg Tablet) 80 mg PO BEDTIME [facility] Last Admin: 01/08/22 20:45 Dose: 80 mg Documented by: EWA Docusate Sodium (Docusate Sodium 100 Mg Capsule) 100 mg PO DAILY PRN PRN Reason: Constipation Ezetimibe (Ezetimibe 10 Mg Tablet) 10 mg PO DAILY [facility] Last Admin: 01/09/22 08:47 Dose: 10 mg Documented by: RODERICK Gabapentin (Gabapentin 300 Mg Capsule) 300 mg PO TID [facility] Last Admin: 01/09/22 08:47 Dose: 300 mg Documented by: RODERICK Heparin Sodium (Porcine) (Heparin Sodium,Porcine 5,000 Unit/Ml Vial) 5,000 unit SUBCUT Q12H [facility] Last Admin: 01/08/22 23:02 Dose: 5,000 unit Documented by: EWA Hydromorphone HCl (Hydromorphone Hcl 1 Mg/Ml Syringe) 1 mg IVPUSH Q4H PRN; Protocol PRN Reason: Pain, Severe (Pain Scale 7-10) Last Admin: 01/09/22 05:05 Dose: 1 mg Documented by: EWA Hydroxyzine HCl (Hydroxyzine Hcl 10 Mg Tablet) 20 mg PO QID PRN PRN Reason: itch Last Admin: 01/05/22 08:38 Dose: 20 mg Documented by: CAMILO Piperacillin Sod/Tazobactam (Sod 3.375 gm/ Sodium Chloride) 50 mls @ 100 mls/hr IV Q6H [facility] Last Infusion: 01/09/22 05:42 Dose: 0 mls/hr Documented by: EWA Vancomycin HCl 1,250 mg/ (Sodium Chloride) 250 mls @ 166.667 mls/hr IV Q24H [facility] Last Infusion: 01/08/22 22:18 Dose: 0 mls/hr Documented by: EWA Insulin Glargine (Insulin Glargine,Hum.Rec.Anlog 100 Unit/Ml 10 Ml Vial) 50 unit SUBCUT DAILY@1200 [facility] Last Admin: 01/08/22 12:55 Dose: 50 unit Documented by: FRANCY Insulin Glargine (Insulin Glargine,Hum.Rec.Anlog 100 Unit/Ml 10 Ml Vial) 100 unit SUBCUT BEDTIME [facility] Last Admin: 01/08/22 20:46 Dose: Not Given Documented by: EWA Non-Admin Reason: No Insulin Coverage Insulin Human Lispro (Insulin Lispro 100 Unit/Ml 3 Ml Vial) 30 unit SUBCUT TIDAC [facility] Last Admin: 01/09/22 08:38 Dose: Not Given Documented by: RODERICK Non-Admin Reason: No Insulin Coverage Isosorbide Mononitrate (Isosorbide Mononitrate 30 Mg Tab.Er.24h) 30 mg PO DAILY [facility]; Protocol Last Admin: 01/09/22 08:47 Dose: 30 mg Documented by: RODERICK Loratadine (Loratadine 10 Mg Tablet) 10 mg PO DAILY [facility] Last Admin: 01/09/22 08:47 Dose: 10 mg Documented by: RODERICK Losartan Potassium (Losartan Potassium 25 Mg Tablet) 25 mg PO DAILY [facility]; Protocol Last Admin: 01/09/22 08:47 Dose: 25 mg Documented by: RODERICK Meclizine HCl (Meclizine Hcl 25 Mg Tablet) 25 mg PO TID PRN PRN Reason: dizziness Last Admin: 01/05/22 08:38 Dose: 25 mg Documented by: CAMILO Metoprolol Tartrate (Metoprolol Tartrate 25 Mg Tablet) 25 mg PO BID [facility]; Protocol Last Admin: 01/09/22 08:47 Dose: 25 mg Documented by: RODERICK Montelukast Sodium (Montelukast Sodium 10 Mg Tablet) 10 mg PO BEDTIME [facility] Last Admin: 01/08/22 20:44 Dose: 10 mg Documented by: EWA Omeprazole (Omeprazole 20 Mg Capsule.Dr) 20 mg PO BID@0630,1630 [facility] Last Admin: 01/09/22 05:06 Dose: 20 mg Documented by: EWA Ondansetron HCl (Ondansetron Hcl 4 Mg/2 Ml Vial) 4 mg IVPUSH Q8H PRN PRN Reason: Nausea and Vomiting Pharmacy Consult (Consult Rx Perform Med Rec) 1 each MISCELLANE ONCE PRN PRN Reason: Consult order Pharmacy Consult (Consult Rx Vancomycin Dosing) 1 each MISCELLANE DAILY PRN PRN Reason: Consult order Quetiapine Fumarate (Quetiapine Fumarate 25 Mg Tablet) 12.5 mg PO BEDTIME [facility] Last Admin: 01/08/22 20:46 Dose: 12.5 mg Documented by: EWA Sodium Chloride (0.9 % Sodium Chloride Flush 3 Ml Syringe) 3 ml IVFLUSH [facility] Last Admin: 01/09/22 08:48 Dose: 3 ml Documented by: RODERICK Thiamine HCl (Thiamine Hcl 100 Mg Tablet) 100 mg PO DAILY [facility] Last Admin: 01/09/22 08:47 Dose: 100 mg Documented by: RODERICK Valacyclovir HCl (Valacyclovir Hcl 1,000 Mg Tablet) 1,000 mg PO BID [facility] Last Admin: 01/09/22 08:47 Dose: 1,000 mg Documented by: RODERICK Venlafaxine HCl (Venlafaxine Hcl 25 Mg Tablet) 100 mg PO BID [facility] Last Admin: 01/09/22 08:46 Dose: 100 mg Documented by: RODERICK Labs CBC & Chem 7: 01/09/22 05:38 01/09/22 05:38 Labs: Laboratory Results - last 24 hr 01/08/22 01/08/22 01/08/22 11:04 15:44 19:08 MCV MCH MCHC RDW Plt Count MPV Immature Gran % (Auto) Neut % (Auto) Lymph % (Auto) [place] % (Auto) Eos % (Auto) Baso % (Auto) Lymph # (Auto) [place] # (Auto) Eos # (Auto) Baso # (Auto) Abs Immat Gran (auto) Absolute Neuts (auto) Absolute Nucleated RBC Nucleated RBC % (auto) Anion Gap Estim Creat Clear Calc Estimated GFR POC Glucose 231 H 196 H Fasting Glucose Calcium Total Bilirubin AST ALT Alkaline Phosphatase Total Protein Albumin Random Vancomycin 12.9 L 01/08/22 01/08/22 01/08/22 20:02 20:30 21:12 MCV MCH MCHC RDW Plt Count MPV Immature Gran % (Auto) Neut % (Auto) Lymph % (Auto) [place] % (Auto) Eos % (Auto) Baso % (Auto) Lymph # (Auto) [place] # (Auto) Eos # (Auto) Baso # (Auto) Abs Immat Gran (auto) Absolute Neuts (auto) Absolute Nucleated RBC Nucleated RBC % (auto) Anion Gap Estim Creat Clear Calc Estimated GFR POC Glucose 71 64 71 Fasting Glucose Calcium Total Bilirubin AST ALT Alkaline Phosphatase Total Protein Albumin Random Vancomycin 01/09/22 01/09/22 01/09/22 05:38 05:38 07:16 MCV 89.2 MCH 28.1 MCHC 31.5 RDW 13.1 Plt Count 315 MPV 10.1 Immature Gran % (Auto) 0.4 Neut % (Auto) 64.6 Lymph % (Auto) 21.5 [place] % (Auto) 11.8 H Eos % (Auto) 1.3 Baso % (Auto) 0.4 Lymph # (Auto) 2.2 [place] # (Auto) 1.2 Eos # (Auto) 0.1 Baso # (Auto) 0.0 Abs Immat Gran (auto) 0.04 H Absolute Neuts (auto) 6.5 Absolute Nucleated RBC 0.000 Nucleated RBC % (auto) 0.0 Anion Gap 11 L Estim Creat Clear Calc 79.3 Estimated GFR 58 POC Glucose 65 Fasting Glucose 73 D Calcium 8.7 Total Bilirubin 0.2 AST 20 ALT 11 Alkaline Phosphatase 88 Total Protein 5.6 L Albumin 3.1 L Random Vancomycin Microbiology Microbiology Results: Microbiology 01/03/22 19:59 Blood Culture - Final Blood - Venous No growth after 5 days. 01/03/22 18:00 Blood Culture - Final Blood - Venous No growth after 5 days. 01/07/22 Unknown Gram Stain - Final Toe Left Great Routine Culture - Preliminary Culture in progress. Procedures Date of Service Date of Service: 01/09/22 Progress Note: A&P Assessment and plan (1) Osteomyelitis: Status: Acute (2) Abscess of great toe: Status: Acute Plan POD #2 s/p amputation of left great toe. Pain improving. Amputation site clean, wound gin removed & dressing changed. Cont L leg elevation to reduce edema. Cont IV abx, await abscess cultures. Fall Risk Details Current Medications: Current Medications Acetaminophen (Acetaminophen 325 Mg Tablet) 650 mg PO Q4H PRN PRN Reason: Headache Last Admin: 01/08/22 23:01 Dose: 650 mg Documented by: Atorvastatin Calcium (Atorvastatin Calcium 80 Mg Tablet) 80 mg PO BEDTIME [facility] Last Admin: 01/08/22 20:45 Dose: 80 mg Documented by: Docusate Sodium (Docusate Sodium 100 Mg Capsule) 100 mg PO DAILY PRN PRN Reason: Constipation Ezetimibe (Ezetimibe 10 Mg Tablet) 10 mg PO DAILY [facility] Last Admin: 01/09/22 08:47 Dose: 10 mg Documented by: Gabapentin (Gabapentin 300 Mg Capsule) 300 mg PO TID [facility] Last Admin: 01/09/22 08:47 Dose: 300 mg Documented by: Heparin Sodium (Porcine) (Heparin Sodium,Porcine 5,000 Unit/Ml Vial) 5,000 unit SUBCUT Q12H [facility] Last Admin: 01/08/22 23:02 Dose: 5,000 unit Documented by: Hydromorphone HCl (Hydromorphone Hcl 1 Mg/Ml Syringe) 1 mg IVPUSH Q4H PRN; Protocol PRN Reason: Pain, Severe (Pain Scale 7-10) Last Admin: 01/09/22 05:05 Dose: 1 mg Documented by: Hydroxyzine HCl (Hydroxyzine Hcl 10 Mg Tablet) 20 mg PO QID PRN PRN Reason: itch Last Admin: 01/05/22 08:38 Dose: 20 mg Documented by: Piperacillin Sod/Tazobactam (Sod 3.375 gm/ Sodium Chloride) 50 mls @ 100 mls/hr IV Q6H [facility] Last Infusion: 01/09/22 05:42 Dose: Infused Documented by: Vancomycin HCl 1,250 mg/ (Sodium Chloride) 250 mls @ 166.667 mls/hr IV Q24H [facility] Last Infusion: 01/08/22 22:18 Dose: Infused Documented by: Insulin Glargine (Insulin Glargine,Hum.Rec.Anlog 100 Unit/Ml 10 Ml Vial) 50 unit SUBCUT DAILY@1200 [facility] Last Admin: 01/08/22 12:55 Dose: 50 unit Documented by: Insulin Glargine (Insulin Glargine,Hum.Rec.Anlog 100 Unit/Ml 10 Ml Vial) 100 unit SUBCUT BEDTIME [facility] Last Admin: 01/08/22 20:46 Dose: Not Given Documented by: Insulin Human Lispro (Insulin Lispro 100 Unit/Ml 3 Ml Vial) 30 unit SUBCUT TIDAC [facility] Last Admin: 01/09/22 08:38 Dose: Not Given Documented by: Isosorbide Mononitrate (Isosorbide Mononitrate 30 Mg Tab.Er.24h) 30 mg PO DAILY [facility]; Protocol Last Admin: 01/09/22 08:47 Dose: 30 mg Documented by: Loratadine (Loratadine 10 Mg Tablet) 10 mg PO DAILY [facility] Last Admin: 01/09/22 08:47 Dose: 10 mg Documented by: Losartan Potassium (Losartan Potassium 25 Mg Tablet) 25 mg PO DAILY [facility]; Protocol Last Admin: 01/09/22 08:47 Dose: 25 mg Documented by: Meclizine HCl (Meclizine Hcl 25 Mg Tablet) 25 mg PO TID PRN PRN Reason: dizziness Last Admin: 01/05/22 08:38 Dose: 25 mg Documented by: Metoprolol Tartrate (Metoprolol Tartrate 25 Mg Tablet) 25 mg PO BID [facility]; Protocol Last Admin: 01/09/22 08:47 Dose: 25 mg Documented by: Montelukast Sodium (Montelukast Sodium 10 Mg Tablet) 10 mg PO BEDTIME [facility] Last Admin: 01/08/22 20:44 Dose: 10 mg Documented by: Omeprazole (Omeprazole 20 Mg Capsule.Dr) 20 mg PO BID@0630,1630 [facility] Last Admin: 01/09/22 05:06 Dose: 20 mg Documented by: Ondansetron HCl (Ondansetron Hcl 4 Mg/2 Ml Vial) 4 mg IVPUSH Q8H PRN PRN Reason: Nausea and Vomiting Pharmacy Consult (Consult Rx Perform Med Rec) 1 each MISCELLANE ONCE PRN PRN Reason: Consult order Pharmacy Consult (Consult Rx Vancomycin Dosing) 1 each MISCELLANE DAILY PRN PRN Reason: Consult order Quetiapine Fumarate (Quetiapine Fumarate 25 Mg Tablet) 12.5 mg PO BEDTIME [facility] Last Admin: 01/08/22 20:46 Dose: 12.5 mg Documented by: Sodium Chloride (0.9 % Sodium Chloride Flush 3 Ml Syringe) 3 ml IVFLUSH QSHIFT [facility] Last Admin: 01/09/22 08:48 Dose: 3 ml Documented by: Thiamine HCl (Thiamine Hcl 100 Mg Tablet) 100 mg PO DAILY [facility] Last Admin: 01/09/22 08:47 Dose: 100 mg Documented by: Valacyclovir HCl (Valacyclovir Hcl 1,000 Mg Tablet) 1,000 mg PO BID [facility] Last Admin: 01/09/22 08:47 Dose: 1,000 mg Documented by: Venlafaxine HCl (Venlafaxine Hcl 25 Mg Tablet) 100 mg PO BID [facility] Last Admin: 01/09/22 08:46 Dose: 100 mg Documented by: Time Spent With Patient Time: Total time spent is greater than 50% in coordination of care (as documented) at patient's floor/unit and/or counseling patient: Time with patient: 15 - 24 minutes Quality Stroke Does the patient have a stroke diagnosis?: No VTE Prior VTE?: No VTE Risk Level:: Medical - moderate - high VTE Device Contraindication: Treatment Not Indicated VTE Drug Contraindication: N/A - Med Ordered
[2022-01-09] MEDS: ondansetron HCL 4 MG/2 ML VIAL IVPUSH (09:28)
[2022-01-09] MEDS: LORazepam 0.5 MG TABLET PO ×2 (10:08→16:39)
--- NOTE | 2022-01-09 10:15 | HO.PM.IMPN ---
Subjective Subjective Date of Service: 01/09/22 Interval History: Did well with amputation. Pain control adequate. No fever chills Review of Systems Denies chest pain Denies shortness of breath Denies nausea vomiting diarrhea Admits to pain left great toe Physical Exam Vital Signs: Vital Signs: Last Vital Signs Temp 97.2 F 01/09/22 07:17 Pulse 66 01/09/22 07:17 Resp 17 01/09/22 07:17 BP 122/61 01/09/22 07:17 Pulse Ox 97 01/09/22 07:17 BMI result Body Mass Index 41.0 Const: Other: Awake alert oriented x3 no acute distress; uncomfortable secondary to pain Resp: Other: Clear to auscultation bilaterally no rales rhonchi or wheezes Cardio: Other: No S4; positive S1-S2; no S3 murmurs rubs or gallops GI: Other: Soft nontender nondistended with normoactive bowel sounds Extrem: Other: Bulky dressing left foot Objective Data Active Medications Acetaminophen (Acetaminophen 325 Mg Tablet) 650 mg PO Q4H PRN PRN Reason: Headache Last Admin: 01/08/22 23:01 Dose: 650 mg Documented by: EWA Atorvastatin Calcium (Atorvastatin Calcium 80 Mg Tablet) 80 mg PO BEDTIME [facility] Last Admin: 01/08/22 20:45 Dose: 80 mg Documented by: EWA Docusate Sodium (Docusate Sodium 100 Mg Capsule) 100 mg PO DAILY PRN PRN Reason: Constipation Ezetimibe (Ezetimibe 10 Mg Tablet) 10 mg PO DAILY [facility] Last Admin: 01/09/22 08:47 Dose: 10 mg Documented by: RODERICK Gabapentin (Gabapentin 300 Mg Capsule) 300 mg PO TID [facility] Last Admin: 01/09/22 08:47 Dose: 300 mg Documented by: RODERICK Heparin Sodium (Porcine) (Heparin Sodium,Porcine 5,000 Unit/Ml Vial) 5,000 unit SUBCUT Q12H [facility] Last Admin: 01/08/22 23:02 Dose: 5,000 unit Documented by: EWA Hydromorphone HCl (Hydromorphone Hcl 1 Mg/Ml Syringe) 1 mg IVPUSH Q4H PRN; Protocol PRN Reason: Pain, Severe (Pain Scale 7-10) Last Admin: 01/09/22 09:28 Dose: 1 mg Documented by: RODERICK Hydroxyzine HCl (Hydroxyzine Hcl 10 Mg Tablet) 20 mg PO QID PRN PRN Reason: itch Last Admin: 01/05/22 08:38 Dose: 20 mg Documented by: CAMILO Piperacillin Sod/Tazobactam (Sod 3.375 gm/ Sodium Chloride) 50 mls @ 100 mls/hr IV Q6H [facility] Last Infusion: 01/09/22 05:42 Dose: 0 mls/hr Documented by: EWA Vancomycin HCl 1,250 mg/ (Sodium Chloride) 250 mls @ 166.667 mls/hr IV Q24H [facility] Last Infusion: 01/08/22 22:18 Dose: 0 mls/hr Documented by: EWA Insulin Glargine (Insulin Glargine,Hum.Rec.Anlog 100 Unit/Ml 10 Ml Vial) 50 unit SUBCUT DAILY@1200 [facility] Last Admin: 01/08/22 12:55 Dose: 50 unit Documented by: FRANCY Insulin Glargine (Insulin Glargine,Hum.Rec.Anlog 100 Unit/Ml 10 Ml Vial) 100 unit SUBCUT BEDTIME [facility] Last Admin: 01/08/22 20:46 Dose: Not Given Documented by: EWA Non-Admin Reason: No Insulin Coverage Insulin Human Lispro (Insulin Lispro 100 Unit/Ml 3 Ml Vial) 30 unit SUBCUT TIDAC [facility] Last Admin: 01/09/22 08:38 Dose: Not Given Documented by: RODERICK Non-Admin Reason: No Insulin Coverage Isosorbide Mononitrate (Isosorbide Mononitrate 30 Mg Tab.Er.24h) 30 mg PO DAILY [facility]; Protocol Last Admin: 01/09/22 08:47 Dose: 30 mg Documented by: RODERICK Loratadine (Loratadine 10 Mg Tablet) 10 mg PO DAILY [facility] Last Admin: 01/09/22 08:47 Dose: 10 mg Documented by: RODERICK Lorazepam (Lorazepam 0.5 Mg Tablet) 0.5 mg PO Q4H PRN PRN Reason: Anxiety Last Admin: 01/09/22 10:08 Dose: 0.5 mg Documented by: RODERICK Losartan Potassium (Losartan Potassium 25 Mg Tablet) 25 mg PO DAILY [facility]; Protocol Last Admin: 01/09/22 08:47 Dose: 25 mg Documented by: RODERICK Meclizine HCl (Meclizine Hcl 25 Mg Tablet) 25 mg PO TID PRN PRN Reason: dizziness Last Admin: 01/05/22 08:38 Dose: 25 mg Documented by: CAMILO Metoprolol Tartrate (Metoprolol Tartrate 25 Mg Tablet) 25 mg PO BID [facility]; Protocol Last Admin: 01/09/22 08:47 Dose: 25 mg Documented by: RODERICK Montelukast Sodium (Montelukast Sodium 10 Mg Tablet) 10 mg PO BEDTIME [facility] Last Admin: 01/08/22 20:44 Dose: 10 mg Documented by: EWA Omeprazole (Omeprazole 20 Mg Capsule.Dr) 20 mg PO BID@0630,1630 [facility] Last Admin: 01/09/22 05:06 Dose: 20 mg Documented by: EWA Ondansetron HCl (Ondansetron Hcl 4 Mg/2 Ml Vial) 4 mg IVPUSH Q8H PRN PRN Reason: Nausea and Vomiting Last Admin: 01/09/22 09:28 Dose: 4 mg Documented by: RODERICK Pharmacy Consult (Consult Rx Perform Med Rec) 1 each MISCELLANE ONCE PRN PRN Reason: Consult order Pharmacy Consult (Consult Rx Vancomycin Dosing) 1 each MISCELLANE DAILY PRN PRN Reason: Consult order Quetiapine Fumarate (Quetiapine Fumarate 25 Mg Tablet) 12.5 mg PO BEDTIME [facility] Last Admin: 01/08/22 20:46 Dose: 12.5 mg Documented by: EWA Sodium Chloride (0.9 % Sodium Chloride Flush 3 Ml Syringe) [facility] Last Admin: 01/09/22 08:48 Dose: 3 ml Documented by: RODERICK Thiamine HCl (Thiamine Hcl 100 Mg Tablet) 100 mg PO DAILY [facility] Last Admin: 01/09/22 08:47 Dose: 100 mg Documented by: RODERICK Valacyclovir HCl (Valacyclovir Hcl 1,000 Mg Tablet) 1,000 mg PO BID [facility] Last Admin: 01/09/22 08:47 Dose: 1,000 mg Documented by: RODERICK Venlafaxine HCl (Venlafaxine Hcl 25 Mg Tablet) 100 mg PO BID [facility] Last Admin: 01/09/22 08:46 Dose: 100 mg Documented by: RODERICK Labs CBC & Chem 7: 01/09/22 05:38 01/09/22 05:38 Labs: Laboratory Results - last 24 hr 01/08/22 01/08/22 01/08/22 11:04 15:44 19:08 MCV MCH MCHC RDW Plt Count MPV Immature Gran % (Auto) Neut % (Auto) Lymph % (Auto) [place] % (Auto) Eos % (Auto) Baso % (Auto) Lymph # (Auto) [place] # (Auto) Eos # (Auto) Baso # (Auto) Abs Immat Gran (auto) Absolute Neuts (auto) Absolute Nucleated RBC Nucleated RBC % (auto) Anion Gap Estim Creat Clear Calc Estimated GFR POC Glucose 231 H 196 H Fasting Glucose Calcium Total Bilirubin AST ALT Alkaline Phosphatase Total Protein Albumin Random Vancomycin 12.9 L 01/08/22 01/08/22 01/08/22 20:02 20:30 21:12 MCV MCH MCHC RDW Plt Count MPV Immature Gran % (Auto) Neut % (Auto) Lymph % (Auto) [place] % (Auto) Eos % (Auto) Baso % (Auto) Lymph # (Auto) [place] # (Auto) Eos # (Auto) Baso # (Auto) Abs Immat Gran (auto) Absolute Neuts (auto) Absolute Nucleated RBC Nucleated RBC % (auto) Anion Gap Estim Creat Clear Calc Estimated GFR POC Glucose 71 64 71 Fasting Glucose Calcium Total Bilirubin AST ALT Alkaline Phosphatase Total Protein Albumin Random Vancomycin 01/09/22 01/09/22 01/09/22 05:38 05:38 07:16 MCV 89.2 MCH 28.1 MCHC 31.5 RDW 13.1 Plt Count 315 MPV 10.1 Immature Gran % (Auto) 0.4 Neut % (Auto) 64.6 Lymph % (Auto) 21.5 [place] % (Auto) 11.8 H Eos % (Auto) 1.3 Baso % (Auto) 0.4 Lymph # (Auto) 2.2 [place] # (Auto) 1.2 Eos # (Auto) 0.1 Baso # (Auto) 0.0 Abs Immat Gran (auto) 0.04 H Absolute Neuts (auto) 6.5 Absolute Nucleated RBC 0.000 Nucleated RBC % (auto) 0.0 Anion Gap 11 L Estim Creat Clear Calc 79.3 Estimated GFR 58 POC Glucose 65 Fasting Glucose 73 D Calcium 8.7 Total Bilirubin 0.2 AST 20 ALT 11 Alkaline Phosphatase 88 Total Protein 5.6 L Albumin 3.1 L Random Vancomycin Microbiology Microbiology Results: Microbiology 01/03/22 19:59 Blood Culture - Final Blood - Venous No growth after 5 days. 01/03/22 18:00 Blood Culture - Final Blood - Venous No growth after 5 days. 01/07/22 Unknown Gram Stain - Final Toe Left Great Routine Culture - Preliminary Culture in progress. Assessment and Plan (1) Osteomyelitis: Status: Acute (2) DMII (diabetes mellitus, type 2): Status: Acute (3) Hypertension: Status: Acute Plan 61-year-old male with past medical history of diabetes, coronary artery disease who presents to the hospital with complaints of left toe pain found to have osteomyelitis; status post left great toe amputation 01/07/2022 1.Left toe acute osteomyelitis/cellulitis S/P -continue vancomycin and Zosyn(5)..will continue for cellulitis -dsg /activity as per surgery 2. 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 5.Hypertension - acceptable control on current therapies DVT prophylaxis: Lovenox Full Code Requires inpatient hospitalization secondary to need for IV antibiotics for osteomyelitis; for amputaion today. Likely will need 2 additional midnights to clear remaining foot cellulitis Quality Stroke Does the patient have a stroke diagnosis?: No VTE Prior VTE?: No VTE Risk Level:: Medical - moderate - high VTE Device Contraindication: Treatment Not Indicated VTE Drug Contraindication: N/A - Med Ordered
[2022-01-09 12:00] VITALS: BP 118/55; PULSE 81; RESP 16; TEMP 36.8; O2SAT 95
[2022-01-09] MEDS: Heparin Sodium,Porcine 5,000 UNIT/ML VIAL 5000 UNIT SUBCUT ×2 (12:05→23:22)
[2022-01-09] MEDS: Insulin Glargine,Hum.rec.anlog 100 UNIT/ML 10 ML VIAL 50 UNIT SUBCUT (12:15)
[2022-01-09 13:27] LABS: Glucose, Whole Blood 103 mg/dL (60-115)
[2022-01-09 15:21] VITALS: BP 116/58; PULSE 77; RESP 18; TEMP 36.6; O2SAT 95
[2022-01-09 15:51] LABS: Glucose, Whole Blood 98 mg/dL (60-115)
[2022-01-09] MEDS: Acetaminophen 325 MG TABLET 650 MG PO (16:39)
[2022-01-09 19:21] VITALS: BP 116/57; PULSE 74; RESP 18; TEMP 37.1; O2SAT 95
[2022-01-09 20:08] LABS: Glucose, Whole Blood 66 mg/dL (60-115)
[2022-01-09] MEDS: Atorvastatin Calcium 80 MG TABLET PO (21:34)
[2022-01-09] MEDS: vancomycin HCL 1,250 MG in 0.9 % Sodium Chloride 250 ML 166.67 MG IV (21:34)
[2022-01-09] MEDS: Montelukast Sodium 10 MG TABLET PO (21:34)
[2022-01-09] MEDS: QUEtiapine Fumarate 25 MG TABLET 12.5 MG PO (21:35)
[2022-01-09] MEDS: Zolpidem Tartrate 5 MG TABLET PO (23:23)
[2022-01-09 23:28] VITALS: BP 157/75; PULSE 67; RESP 18; TEMP 36.6; O2SAT 96
[2022-01-10] VITALS (7 sets, daily range): BP systolic 122–164; BP diastolic 60–80; PULSE 71–84; RESP 17–19; TEMP 35.5–36.9; O2SAT 96–99
[2022-01-10] MEDS: Piperacillin Sodium/Tazobactam 3.375 GM in 0.9 % Sodium Chloride 50 ML IV ×4 (04:07→21:58)
[2022-01-10] MEDS: HYDROmorphone HCl 1 MG/ML SYRINGE IVPUSH ×5 (04:08→21:54)
[2022-01-10] MEDS: Omeprazole 20 MG CAPSULE.DR PO ×2 (05:53→15:25)
[2022-01-10 06:15] LABS: MANUAL DIFF FLAG NO
[2022-01-10 06:19] LABS: Basophils Percent Auto 0.4 % (0-2); Eosinophils Absolute Auto 0.1 X10*3/uL (0.0-0.4); Eosinophils Percent Auto 1.8 % (0-4); Hematocrit 33.6 % (42.0-52.0); Hemoglobin 10.8 g/dl (14.0-18.0); Imm Gran Abs Auto 0.05 X10*3/uL (0.00-0.03); Imm Gran Pct Auto 0.6 % (0.0-0.4); Lymphocytes Absolute Auto 1.4 X10*3/uL (1.2-4.9); Mean Corpuscular HGB Conc 32.1 g/dl (31.0-36.0); Mean Corpuscular Hemoglobin 28.3 pg (27.0-33.0); Mean Corpuscular Volume 88.2 fL (80.0-98.0); Mean Platelet Volume 9.8 fL (9.4-12.4); Monocytes Absolute Auto 1.1 X10*3/uL (0.1-1.2); Monocytes Percent Auto 13.2 % (2-11); Neutrophils Absolute Auto 5.4 x10*3/uL (2.0-8.3); Platelet Count 347 X10*3/uL (160-400); Red Blood Count 3.81 X10*6/uL (4.60-5.80); Red Cell Distribution Width 13.2 % (11.0-16.0)
[2022-01-10 06:39] LABS: Alanine Aminotransferase 15 U/L (0-40); Albumin Level 3.2 g/dL (3.5-5.0); Alkaline Phosphatase 92 U/L (39-117); Anion Gap 12 (12-20); Aspartate Amino Transferase 27 U/L (5-37); Bilirubin Total 0.3 mg/dL (0.0-1.0); Blood Urea Nitrogen 13 mg/dL (9-16); Calcium 8.8 mg/dL (8.4-10.2); Carbon Dioxide 26 mmol/L (22-29); Chloride 111 mmol/L (96-108); Creatinine Clr Calc Pharmacy 79.9; Estimated Glomerular Filt Rate 58; Glucose Fasting 65 mg/dL (60-99); Potassium 4.1 mmol/L (3.3-5.1); Sodium 145 mmol/L (135-145); Total Protein 5.8 g/dL (6.5-8.0)
[2022-01-10 07:13] LABS: Glucose, Whole Blood 57 mg/dL (60-115)
--- NOTE | 2022-01-10 07:15 | HE.PHANOTE ---
RE: Vancomycin Pt's last trough came back at 15.0 on 01/09/22, keeping dose at 1250mg Q24H, SCr stable at 1.26. Next trough to be drawn 01/11/22 @1900.
[2022-01-10] MEDS: Venlafaxine HCL 25 MG TABLET 100 MG PO ×2 (07:57→20:52)
[2022-01-10] MEDS: Ezetimibe 10 MG TABLET PO (07:58)
[2022-01-10] MEDS: Losartan Potassium 25 MG TABLET PO (07:58)
[2022-01-10] MEDS: Isosorbide Mononitrate 30 MG TAB.ER.24H PO (07:59)
[2022-01-10] MEDS: Metoprolol Tartrate 25 MG TABLET PO ×2 (07:59→20:52)
[2022-01-10] MEDS: Thiamine HCL 100 MG TABLET PO (07:59)
[2022-01-10] MEDS: Loratadine 10 MG TABLET PO (07:59)
[2022-01-10] MEDS: 0.9 % Sodium Chloride Flush 3 ML SYRINGE IVFLUSH (07:59)
[2022-01-10] MEDS: valACYclovir HCL 1,000 MG TABLET 1000 MG PO ×2 (07:59→20:51)
[2022-01-10] MEDS: Gabapentin 300 MG CAPSULE PO ×3 (07:59→20:51)
[2022-01-10 09:42] LABS: Glucose, Whole Blood 104 mg/dL (60-115)
[2022-01-10 11:15] LABS: Glucose, Whole Blood 118 mg/dL (60-115)
[2022-01-10] MEDS: Heparin Sodium,Porcine 5,000 UNIT/ML VIAL 5000 UNIT SUBCUT ×2 (12:04→21:55)
[2022-01-10] MEDS: Insulin Glargine,Hum.rec.anlog 100 UNIT/ML 10 ML VIAL 40 UNIT SUBCUT (12:05)
--- NOTE | 2022-01-10 12:15 | HO.PM.IMPN ---
Subjective Subjective Date of Service: 01/10/22 Interval History: Pain at amputation site controlled No fever or chills Review of Systems Review of Systems: Yes all other systems are reviewed and are negative Physical Exam Vital Signs: Vital Signs: Last Vital Signs Temp 96 F L 01/10/22 11:01 Pulse 78 01/10/22 11:01 Resp 18 01/10/22 11:01 BP 129/80 01/10/22 11:01 Pulse Ox 96 01/10/22 11:01 BMI result Body Mass Index 41.0 Gen: in no acute distress HEENT: sclera anicteric, moist mucus membranes Neck: supple Lungs: clear to auscultation bilaterally Heart: regular rate and rhythm, no murmurs Abd: soft, non-tender, non-distended, obese Ext: L foot in dry bulky dressing Skin: warm/well-perfused Neuro: alert and oriented x3, no focal findings Psych: appropriate affect Objective Data Active Medications Acetaminophen (Acetaminophen 325 Mg Tablet) 650 mg PO Q4H PRN PRN Reason: Headache Last Admin: 01/09/22 16:39 Dose: 650 mg Documented by: RODERICK Atorvastatin Calcium (Atorvastatin Calcium 80 Mg Tablet) 80 mg PO BEDTIME [facility] Last Admin: 01/09/22 21:34 Dose: 80 mg Documented by: TRE Docusate Sodium (Docusate Sodium 100 Mg Capsule) 100 mg PO DAILY PRN PRN Reason: Constipation Ezetimibe (Ezetimibe 10 Mg Tablet) 10 mg PO DAILY [facility] Last Admin: 01/10/22 07:58 Dose: 10 mg Documented by: RODERICK Gabapentin (Gabapentin 300 Mg Capsule) 300 mg PO TID [facility] Last Admin: 01/10/22 07:59 Dose: 300 mg Documented by: RODERICK Heparin Sodium (Porcine) (Heparin Sodium,Porcine 5,000 Unit/Ml Vial) 5,000 unit SUBCUT Q12H [facility] Last Admin: 01/10/22 12:04 Dose: 5,000 unit Documented by: RODERICK Hydromorphone HCl (Hydromorphone Hcl 1 Mg/Ml Syringe) 1 mg IVPUSH Q4H PRN; Protocol PRN Reason: Pain, Severe (Pain Scale 7-10) Last Admin: 01/10/22 08:14 Dose: 1 mg Documented by: RODERICK Hydroxyzine HCl (Hydroxyzine Hcl 10 Mg Tablet) 20 mg PO QID PRN PRN Reason: itch Last Admin: 01/05/22 08:38 Dose: 20 mg Documented by: CAMILO Piperacillin Sod/Tazobactam (Sod 3.375 gm/ Sodium Chloride) 50 mls @ 100 mls/hr IV Q6H [facility] Last Admin: 01/10/22 12:04 Dose: 100 mls/hr Documented by: RODERICK Vancomycin HCl 1,250 mg/ (Sodium Chloride) 250 mls @ 166.667 mls/hr IV Q24H [facility] Last Infusion: 01/09/22 23:27 Dose: 0 mls/hr Documented by: TRE Insulin Glargine (Insulin Glargine,Hum.Rec.Anlog 100 Unit/Ml 10 Ml Vial) 40 unit SUBCUT DAILY@1200 [facility] Last Admin: 01/10/22 12:05 Dose: 40 unit Documented by: RODERICK Insulin Glargine (Insulin Glargine,Hum.Rec.Anlog 100 Unit/Ml 10 Ml Vial) 80 unit SUBCUT BEDTIME [facility] Insulin Human Lispro (Insulin Lispro 100 Unit/Ml 3 Ml Vial) 24 unit SUBCUT TIDAC [facility] Isosorbide Mononitrate (Isosorbide Mononitrate 30 Mg Tab.Er.24h) 30 mg PO DAILY [facility]; Protocol Last Admin: 01/10/22 07:59 Dose: 30 mg Documented by: RODERICK Loratadine (Loratadine 10 Mg Tablet) 10 mg PO DAILY [facility] Last Admin: 01/10/22 07:59 Dose: 10 mg Documented by: RODERICK Lorazepam (Lorazepam 0.5 Mg Tablet) 0.5 mg PO Q4H PRN PRN Reason: Anxiety Last Admin: 01/09/22 16:39 Dose: 0.5 mg Documented by: RODERICK Losartan Potassium (Losartan Potassium 25 Mg Tablet) 25 mg PO DAILY [facility]; Protocol Last Admin: 01/10/22 07:58 Dose: 25 mg Documented by: RODERICK Meclizine HCl (Meclizine Hcl 25 Mg Tablet) 25 mg PO TID PRN PRN Reason: dizziness Last Admin: 01/05/22 08:38 Dose: 25 mg Documented by: CAMILO Metoprolol Tartrate (Metoprolol Tartrate 25 Mg Tablet) 25 mg PO BID [facility]; Protocol Last Admin: 01/10/22 07:59 Dose: 25 mg Documented by: RODERICK Montelukast Sodium (Montelukast Sodium 10 Mg Tablet) 10 mg PO BEDTIME [facility] Last Admin: 01/09/22 21:34 Dose: 10 mg Documented by: TRE Omeprazole (Omeprazole 20 Mg Capsule.Dr) 20 mg PO BID@0630,1630 [facility] Last Admin: 01/10/22 05:53 Dose: 20 mg Documented by: TRE Ondansetron HCl (Ondansetron Hcl 4 Mg/2 Ml Vial) 4 mg IVPUSH Q8H PRN PRN Reason: Nausea and Vomiting Last Admin: 01/09/22 09:28 Dose: 4 mg Documented by: RODERICK Pharmacy Consult (Consult Rx Perform Med Rec) 1 each MISCELLANE ONCE PRN PRN Reason: Consult order Pharmacy Consult (Consult Rx Vancomycin Dosing) 1 each MISCELLANE DAILY PRN PRN Reason: Consult order Quetiapine Fumarate (Quetiapine Fumarate 25 Mg Tablet) 12.5 mg PO BEDTIME [facility] Last Admin: 01/09/22 21:35 Dose: 12.5 mg Documented by: TRE Sodium Chloride (0.9 % Sodium Chloride Flush 3 Ml Syringe) [facility] Last Admin: 01/10/22 07:59 Dose: 3 ml Documented by: RODERICK Thiamine HCl (Thiamine Hcl 100 Mg Tablet) 100 mg PO DAILY [facility] Last Admin: 01/10/22 07:59 Dose: 100 mg Documented by: RODERICK Valacyclovir HCl (Valacyclovir Hcl 1,000 Mg Tablet) 1,000 mg PO BID [facility] Last Admin: 01/10/22 07:59 Dose: 1,000 mg Documented by: RODERICK Venlafaxine HCl (Venlafaxine Hcl 25 Mg Tablet) 100 mg PO BID [facility] Last Admin: 01/10/22 07:57 Dose: 100 mg Documented by: RODERICK Labs CBC & Chem 7: 01/10/22 05:48 01/10/22 05:48 Labs: Laboratory Results - last 24 hr 0301/09/22 01/09/22 11:59 15:20 18:46 MCV MCH MCHC RDW Plt Count MPV Immature Gran % (Auto) Neut % (Auto) Lymph % (Auto) [place] % (Auto) Eos % (Auto) Baso % (Auto) Lymph # (Auto) [place] # (Auto) Eos # (Auto) Baso # (Auto) Abs Immat Gran (auto) Absolute Neuts (auto) Absolute Nucleated RBC Nucleated RBC % (auto) Anion Gap Estim Creat Clear Calc Estimated GFR POC Glucose 103 98 Fasting Glucose Calcium Total Bilirubin AST ALT Alkaline Phosphatase Total Protein Albumin Vancomycin Trough 15.0 01/09/22 01/10/22 01/10/22 19:24 05:48 05:48 MCV 88.2 MCH 28.3 MCHC 32.1 RDW 13.2 Plt Count 347 MPV 9.8 Immature Gran % (Auto) 0.6 H Neut % (Auto) 67.0 Lymph % (Auto) 17.0 L [place] % (Auto) 13.2 H Eos % (Auto) 1.8 Baso % (Auto) 0.4 Lymph # (Auto) 1.4 [place] # (Auto) 1.1 Eos # (Auto) 0.1 Baso # (Auto) 0.0 Abs Immat Gran (auto) 0.05 H Absolute Neuts (auto) 5.4 Absolute Nucleated RBC 0.000 Nucleated RBC % (auto) 0.0 Anion Gap 12 Estim Creat Clear Calc 79.9 Estimated GFR 58 POC Glucose 66 Fasting Glucose 65 Calcium 8.8 Total Bilirubin 0.3 AST 27 ALT 15 Alkaline Phosphatase 92 Total Protein 5.8 L Albumin 3.2 L Vancomycin Trough 01/10/22 01/10/22 01/10/22 07:03 09:38 11:01 MCV MCH MCHC RDW Plt Count MPV Immature Gran % (Auto) Neut % (Auto) Lymph % (Auto) [place] % (Auto) Eos % (Auto) Baso % (Auto) Lymph # (Auto) [place] # (Auto) Eos # (Auto) Baso # (Auto) Abs Immat Gran (auto) Absolute Neuts (auto) Absolute Nucleated RBC Nucleated RBC % (auto) Anion Gap Estim Creat Clear Calc Estimated GFR POC Glucose 57 L* 104 118 H Fasting Glucose Calcium Total Bilirubin AST ALT Alkaline Phosphatase Total Protein Albumin Vancomycin Trough Microbiology Microbiology Results: Microbiology 01/07/22 Unknown Gram Stain - Final Toe Left Great Routine Culture - Final Coag negative Staphylococcus Assessment and Plan (1) Osteomyelitis: Status: Acute (2) DMII (diabetes mellitus, type 2): Status: Acute (3) Hypertension: Status: Acute Plan hospital d#8 61yo M with DM2, CAD admitted with L great toe abscess/cellulitis/osteomyelitis # DM foot infection with abscess/cellulitis/osteomyelitis - vanc + pip/coleen d#8, discuss conversion to PO antibiotics with ID - wound care: Apply fluffs, kerlix wrap followed by albino wrap. Change daily. Keep Left leg elevated. - Gen Surg f/u in 1 wk # DM2 with hypoglycemia - reduce home insulin doses by 20% # CAD # HTN - continue metoprolol, Imdur, ezetimibe, atorvastatin, losartan - resume warfarin # neuropathy - continue gabapentin # mood disorder - continue venlafaxine, quetiapine, hydroxyzine # VTE ppx - warfarin # dispo - PT consult In my professional opinion, patient requires continued hospitalization for IV antibiotic use and hypoglycemia Quality Stroke Does the patient have a stroke diagnosis?: No VTE Prior VTE?: No VTE Risk Level:: Medical - moderate - high VTE Device Contraindication: Treatment Not Indicated VTE Drug Contraindication: N/A - Med Ordered
[2022-01-10 13:31] LABS: INTERNATIONAL NORM RATIO 1.3 (0.9-1.1); Prothrombin Time 14.8 SEC (9.9-13.0)
[2022-01-10] MEDS: oxyCODONE HCl Immed Release 5 MG TABLET PO ×2 (14:40→20:52)
[2022-01-10 16:40] LABS: Glucose, Whole Blood 183 mg/dL (60-115)
[2022-01-10] MEDS: Insulin Lispro 100 UNIT/ML 3 ML VIAL 10 UNIT SUBCUT (17:41)
[2022-01-10] MEDS: Warfarin Sodium 5 MG TABLET PO (17:42)
[2022-01-10 20:06] LABS: Glucose, Whole Blood 178 mg/dL (60-115)
[2022-01-10] MEDS: Montelukast Sodium 10 MG TABLET PO (20:51)
[2022-01-10] MEDS: Atorvastatin Calcium 80 MG TABLET PO (20:52)
[2022-01-10] MEDS: QUEtiapine Fumarate 25 MG TABLET 12.5 MG PO (20:53)
[2022-01-10] MEDS: Insulin Glargine,Hum.rec.anlog 100 UNIT/ML 10 ML VIAL 80 UNIT SUBCUT (20:54)
[2022-01-10] MEDS: vancomycin HCL 1,250 MG in 0.9 % Sodium Chloride 250 ML 166.66 MG IV (20:54)
[2022-01-11] MEDS: HYDROmorphone HCl 1 MG/ML SYRINGE IVPUSH ×3 (02:28→12:37)
[2022-01-11 03:34] VITALS: BP 140/56; PULSE 78; RESP 17; TEMP 36.3; O2SAT 97
[2022-01-11] MEDS: Omeprazole 20 MG CAPSULE.DR PO (05:36)
[2022-01-11 06:00] LABS: MANUAL DIFF FLAG NO
[2022-01-11 06:07] LABS: Basophils Percent Auto 0.5 % (0-2); Eosinophils Absolute Auto 0.1 X10*3/uL (0.0-0.4); Eosinophils Percent Auto 1.2 % (0-4); Hemoglobin 10.5 g/dl (14.0-18.0); Imm Gran Abs Auto 0.05 X10*3/uL (0.00-0.03); Imm Gran Pct Auto 0.6 % (0.0-0.4); Lymphocytes Absolute Auto 1.5 X10*3/uL (1.2-4.9); Lymphocytes Percent Auto 18.2 % (20-40); Mean Corpuscular HGB Conc 31.8 g/dl (31.0-36.0); Mean Corpuscular Hemoglobin 28.2 pg (27.0-33.0); Mean Corpuscular Volume 88.5 fL (80.0-98.0); Mean Platelet Volume 10.1 fL (9.4-12.4); Monocytes Percent Auto 12.5 % (2-11); Neutrophils Absolute Auto 5.4 x10*3/uL (2.0-8.3); Platelet Count 297 X10*3/uL (160-400); Red Blood Count 3.73 X10*6/uL (4.60-5.80); White Blood Count 8.1 X10*3/uL (4.8-10.8)
[2022-01-11 06:08] LABS: INTERNATIONAL NORM RATIO 1.3 (0.9-1.1); Prothrombin Time 15.2 SEC (9.9-13.0)
[2022-01-11 06:24] LABS: Alanine Aminotransferase 15 U/L (0-40); Alkaline Phosphatase 82 U/L (39-117); Anion Gap 11 (12-20); Aspartate Amino Transferase 18 U/L (5-37); Bilirubin Total 0.3 mg/dL (0.0-1.0); Blood Urea Nitrogen 11 mg/dL (9-16); C Reactive Protein 3.79 mg/dL (< or = 0.50); Calcium 8.4 mg/dL (8.4-10.2); Carbon Dioxide 27 mmol/L (22-29); Chloride 107 mmol/L (96-108); Creatinine Clr Calc Pharmacy 85.3; Estimated Glomerular Filt Rate > 60; Glucose Fasting 111 mg/dL (60-99); Potassium 4.1 mmol/L (3.3-5.1); Sodium 141 mmol/L (135-145); Total Protein 5.3 g/dL (6.5-8.0)
[2022-01-11 06:49] LABS: Erythrocyte Sedimentation Rate 91 MM/HR (0-15)
[2022-01-11 07:36] VITALS: BP 141/57; PULSE 75; RESP 18; TEMP 36.1; O2SAT 97
[2022-01-11 07:56] LABS: Glucose, Whole Blood 103 mg/dL (60-115)
--- NOTE | 2022-01-11 08:24 | P.PNGS_ITS ---
Subjective Subjective Date of Service: 01/11/22 <Angela Khan PA-C - Last Filed: 01/11/22 08:28> 01/11/22 <Derrick Perkins MD - Last Filed: 01/11/22 13:34> Interval history: with patient this morning. She will be doing dressing changes. The patient continues to report severe pain at amputation site. Somewhat better. <Angela Khan PA-C - Last Filed: 01/11/22 08:28> Physical Exam Vital Signs: Vital Signs: Last Vital Signs Temp 96.9 F 01/11/22 07:36 Pulse 75 01/11/22 07:36 Resp 18 01/11/22 07:36 BP 141/57 H 01/11/22 07:36 Pulse Ox 97 01/11/22 07:36 BMI result Body Mass Index 41.0 <Angela Khan PA-C - Last Filed: 01/11/22 08:28> Const: General: comfortable, no acute distress and alert <Angela Khan PA-C - Last Filed: 01/11/22 08:28> Orientation/consciousness: patient oriented x3 <Angela Khan PA-C - Last Filed: 01/11/22 08:28> Resp: Effort & Inspection: normal respiratory effort <Angela Khan PA-C - Last Filed: 01/11/22 08:28> Skin: Other: warm and dry <Angela Khan PA-C - Last Filed: 01/11/22 08:28> Neuro: General: patient oriented x3 <Angela Khan PA-C - Last Filed: 01/11/22 08:28> Extrem: Other: left toe amputation site- sutures intact, well approximated, edema/erythema/induration improving but still some remains, no significant drainage noted <FELICIA Marquez Last Filed: 01/11/22 08:28> Objective Data Active Medications Acetaminophen (Acetaminophen 325 Mg Tablet) 650 mg PO Q4H PRN PRN Reason: Headache Last Admin: 01/09/22 16:39 Dose: 650 mg Documented by: RODERICK Atorvastatin Calcium (Atorvastatin Calcium 80 Mg Tablet) 80 mg PO BEDTIME [facility] Last Admin: 01/10/22 20:52 Dose: 80 mg Documented by: KEISHA Docusate Sodium (Docusate Sodium 100 Mg Capsule) 100 mg PO DAILY PRN PRN Reason: Constipation Ezetimibe (Ezetimibe 10 Mg Tablet) 10 mg PO DAILY [facility] Last Admin: 01/10/22 07:58 Dose: 10 mg Documented by: RODERICK Gabapentin (Gabapentin 300 Mg Capsule) 300 mg PO TID [facility] Last Admin: 01/10/22 20:51 Dose: 300 mg Documented by: KEISHA Heparin Sodium (Porcine) (Heparin Sodium,Porcine 5,000 Unit/Ml Vial) 5,000 unit SUBCUT Q12H [facility] Last Admin: 01/10/22 21:55 Dose: 5,000 unit Documented by: KEISHA Hydromorphone HCl (Hydromorphone Hcl 1 Mg/Ml Syringe) 1 mg IVPUSH Q4H PRN; Protocol PRN Reason: Pain, Severe (Pain Scale 7-10) Last Admin: 01/11/22 02:28 Dose: 1 mg Documented by: LUH Hydroxyzine HCl (Hydroxyzine Hcl 10 Mg Tablet) 20 mg PO QID PRN PRN Reason: itch Last Admin: 01/05/22 08:38 Dose: 20 mg Documented by: COTEMA Vancomycin HCl 1,250 mg/ (Sodium Chloride) 250 mls @ 166.667 mls/hr IV Q24H [facility] Last Infusion: 01/10/22 22:33 Dose: 0 mls/hr Documented by: KEISHA Insulin Glargine (Insulin Glargine,Hum.Rec.Anlog 100 Unit/Ml 10 Ml Vial) 40 unit SUBCUT DAILY@1200 [facility] Last Admin: 01/10/22 12:05 Dose: 40 unit Documented by: RODERICK Insulin Glargine (Insulin Glargine,Hum.Rec.Anlog 100 Unit/Ml 10 Ml Vial) 80 unit SUBCUT BEDTIME [facility] Last Admin: 01/10/22 20:54 Dose: 80 unit Documented by: KEISHA Insulin Human Lispro (Insulin Lispro 100 Unit/Ml 3 Ml Vial) 10 unit SUBCUT TIDAC [facility] Last Admin: 01/10/22 17:41 Dose: 10 unit Documented by: KEISHA Isosorbide Mononitrate (Isosorbide Mononitrate 30 Mg Tab.Er.24h) 30 mg PO DAILY [facility]; Protocol Last Admin: 01/10/22 07:59 Dose: 30 mg Documented by: RODERICK Loratadine (Loratadine 10 Mg Tablet) 10 mg PO DAILY [facility] Last Admin: 01/10/22 07:59 Dose: 10 mg Documented by: RODERICK Lorazepam (Lorazepam 0.5 Mg Tablet) 0.5 mg PO Q4H PRN PRN Reason: Anxiety Last Admin: 01/09/22 16:39 Dose: 0.5 mg Documented by: RODERICK Losartan Potassium (Losartan Potassium 25 Mg Tablet) 25 mg PO DAILY [facility]; Protocol Last Admin: 01/10/22 07:58 Dose: 25 mg Documented by: RODERICK Meclizine HCl (Meclizine Hcl 25 Mg Tablet) 25 mg PO TID PRN PRN Reason: dizziness Last Admin: 01/05/22 08:38 Dose: 25 mg Documented by: CAMILO Metoprolol Tartrate (Metoprolol Tartrate 25 Mg Tablet) 25 mg PO BID [facility]; Protocol Last Admin: 01/10/22 20:52 Dose: 25 mg Documented by: KEISHA Montelukast Sodium (Montelukast Sodium 10 Mg Tablet) 10 mg PO BEDTIME [facility] Last Admin: 01/10/22 20:51 Dose: 10 mg Documented by: KEISHA Omeprazole (Omeprazole 20 Mg Capsule.Dr) 20 mg PO BID@0630,1630 [facility] Last Admin: 01/11/22 05:36 Dose: 20 mg Documented by: [facility] Ondansetron HCl (Ondansetron Hcl 4 Mg/2 Ml Vial) 4 mg IVPUSH Q8H PRN PRN Reason: Nausea and Vomiting Last Admin: 01/09/22 09:28 Dose: 4 mg Documented by: RODERICK Oxycodone HCl (Oxycodone Hcl Immed Release 5 Mg Tablet) 5 mg PO Q4H PRN PRN Reason: moderate pain Last Admin: 01/10/22 20:52 Dose: 5 mg Documented by: KEISHA Pharmacy Consult (Consult Rx Perform Med Rec) 1 each MISCELLANE ONCE PRN PRN Reason: Consult order Quetiapine Fumarate (Quetiapine Fumarate 25 Mg Tablet) 12.5 mg PO BEDTIME [facility] Last Admin: 01/10/22 20:53 Dose: 12.5 mg Documented by: KEISHA Sodium Chloride (0.9 % Sodium Chloride Flush 3 Ml Syringe) 3 ml IVFLUSH QSHIFT [facility] Last Admin: 01/11/22 01:05 Dose: Not Given Documented by: [facility] Non-Admin Reason: picc line only Thiamine HCl (Thiamine Hcl 100 Mg Tablet) 100 mg PO DAILY [facility] Last Admin: 01/10/22 07:59 Dose: 100 mg Documented by: RODERICK Valacyclovir HCl (Valacyclovir Hcl 1,000 Mg Tablet) 1,000 mg PO BID [facility] Last Admin: 01/10/22 20:51 Dose: 1,000 mg Documented by: KEISHA Venlafaxine HCl (Venlafaxine Hcl 25 Mg Tablet) 100 mg PO BID [facility] Last Admin: 01/10/22 20:52 Dose: 100 mg Documented by: KEISHA Warfarin Sodium (Warfarin Sodium 5 Mg Tablet) 5 mg PO DAILY@1800 [facility] Last Admin: 01/10/22 17:42 Dose: 5 mg Documented by: KEISHA Warfarin Sodium (Warfarin Sodium 2.5 Mg Tablet) 2.5 mg PO MOWESA@1800 [facility] <Angela Khan PA-C - Last Filed: 01/11/22 08:28> Labs CBC & Chem 7: : 01/11/22 05:35 01/11/22 05:35 <Angela Khan PA-C - Last Filed: 01/11/22 08:28> Labs: Laboratory Results - last 24 hr 01/10/22 01/10/22 01/10/22 09:38 11:01 13:13 MCV MCH MCHC RDW Plt Count MPV Immature Gran % (Auto) Neut % (Auto) Lymph % (Auto) [place] % (Auto) Eos % (Auto) Baso % (Auto) Lymph # (Auto) [place] # (Auto) Eos # (Auto) Baso # (Auto) Abs Immat Gran (auto) Absolute Neuts (auto) Absolute Nucleated RBC Nucleated RBC % (auto) ESR PT 14.8 H INR 1.3 H Anion Gap Estim Creat Clear Calc Estimated GFR POC Glucose 104 118 H Random Glucose Fasting Glucose Calcium Total Bilirubin AST ALT Alkaline Phosphatase C-Reactive Protein Total Protein Albumin 01/10/22 01/10/22 01/11/22 15:15 19:30 05:35 MCV 88.5 MCH 28.2 MCHC 31.8 RDW 13.0 Plt Count 297 MPV 10.1 Immature Gran % (Auto) 0.6 H Neut % (Auto) 67.0 Lymph % (Auto) 18.2 L [place] % (Auto) 12.5 H Eos % (Auto) 1.2 Baso % (Auto) 0.5 Lymph # (Auto) 1.5 [place] # (Auto) 1.0 Eos # (Auto) 0.1 Baso # (Auto) 0.0 Abs Immat Gran (auto) 0.05 H Absolute Neuts (auto) 5.4 Absolute Nucleated RBC 0.000 Nucleated RBC % (auto) 0.0 ESR PT INR Anion Gap Estim Creat Clear Calc Estimated GFR POC Glucose 183 H 178 H Random Glucose Fasting Glucose Calcium Total Bilirubin AST ALT Alkaline Phosphatase C-Reactive Protein Total Protein Albumin 01/11/22 01/11/22 01/11/22 05:35 05:35 05:35 MCV MCH MCHC RDW Plt Count MPV Immature Gran % (Auto) Neut % (Auto) Lymph % (Auto) [place] % (Auto) Eos % (Auto) Baso % (Auto) Lymph # (Auto) [place] # (Auto) Eos # (Auto) Baso # (Auto) Abs Immat Gran (auto) Absolute Neuts (auto) Absolute Nucleated RBC Nucleated RBC % (auto) ESR 91 H PT 15.2 H INR 1.3 H Anion Gap 11 L Estim Creat Clear Calc 85.3 Estimated GFR > 60 POC Glucose Random Glucose TNP Fasting Glucose 111 H D Calcium 8.4 Total Bilirubin 0.3 AST 18 ALT 15 Alkaline Phosphatase 82 C-Reactive Protein 3.79 H Total Protein 5.3 L Albumin 3.0 L 01/11/22 07:33 MCV MCH MCHC RDW Plt Count MPV Immature Gran % (Auto) Neut % (Auto) Lymph % (Auto) [place] % (Auto) Eos % (Auto) Baso % (Auto) Lymph # (Auto) [place] # (Auto) Eos # (Auto) Baso # (Auto) Abs Immat Gran (auto) Absolute Neuts (auto) Absolute Nucleated RBC Nucleated RBC % (auto) ESR PT INR Anion Gap Estim Creat Clear Calc Estimated GFR POC Glucose 103 Random Glucose Fasting Glucose Calcium Total Bilirubin AST ALT Alkaline Phosphatase C-Reactive Protein Total Protein Albumin <Angela Khan PA-C - Last Filed: 01/11/22 08:28> Microbiology Microbiology Results: Microbiology 01/07/22 Unknown Gram Stain - Final Toe Left Great Routine Culture - Final Coag negative Staphylococcus <Angela Khan PA-C - Last Filed: 01/11/22 08:28> Procedures Date of Service Date of Service: 01/11/22 <Angela Khan PA-C - Last Filed: 01/11/22 08:28> Progress Note: A&P Assessment and plan (1) Abscess of great toe: Status: Acute <FELICIA Marquez Last Filed: 01/11/22 08:28> (2) Osteomyelitis: Status: Acute <FELICIA Marquez Last Filed: 01/11/22 08:28> Assessment and Plan: says he feels well dressings changed earlier by PA pt awaiting discharge I have reviewed dc instructions with him he is to call the office for ffup seen and examined independently <Derrick Perkins MD - Last Filed: 01/11/22 13:34> Plan POD #4 s/p amputation of left great toe. Amputation site remains clean and surrounding cellulitic changes improving. Cont L leg elevation to reduce edema. Cont IV abx. PT consult, will need offloading shoe. Stable for discharge to home when pain controlled, arrangements made for home. F/u in [address] Hinton. Dressing changes discussed with - fluffs, abd dressing followed by kerlix and alibno wrap daily and PRN. <Angela Khan PA-C - Last Filed: 01/11/22 08:28> Fall Risk Details Current Medications: Current Medications Acetaminophen (Acetaminophen 325 Mg Tablet) 650 mg PO Q4H PRN PRN Reason: Headache Last Admin: 01/09/22 16:39 Dose: 650 mg Documented by: Atorvastatin Calcium (Atorvastatin Calcium 80 Mg Tablet) 80 mg PO BEDTIME [facility] Last Admin: 01/10/22 20:52 Dose: 80 mg Documented by: Docusate Sodium (Docusate Sodium 100 Mg Capsule) 100 mg PO DAILY PRN PRN Reason: Constipation Ezetimibe (Ezetimibe 10 Mg Tablet) 10 mg PO DAILY [facility] Last Admin: 01/10/22 07:58 Dose: 10 mg Documented by: Gabapentin (Gabapentin 300 Mg Capsule) 300 mg PO TID [facility] Last Admin: 01/10/22 20:51 Dose: 300 mg Documented by: Heparin Sodium (Porcine) (Heparin Sodium,Porcine 5,000 Unit/Ml Vial) 5,000 unit SUBCUT Q12H [facility] Last Admin: 01/10/22 21:55 Dose: 5,000 unit Documented by: Hydromorphone HCl (Hydromorphone Hcl 1 Mg/Ml Syringe) 1 mg IVPUSH Q4H PRN; Protocol PRN Reason: Pain, Severe (Pain Scale 7-10) Last Admin: 01/11/22 02:28 Dose: 1 mg Documented by: Hydroxyzine HCl (Hydroxyzine Hcl 10 Mg Tablet) 20 mg PO QID PRN PRN Reason: itch Last Admin: 01/05/22 08:38 Dose: 20 mg Documented by: Vancomycin HCl 1,250 mg/ (Sodium Chloride) 250 mls @ 166.667 mls/hr IV Q24H [facility] Last Infusion: 01/10/22 22:33 Dose: Infused Documented by: Insulin Glargine (Insulin Glargine,Hum.Rec.Anlog 100 Unit/Ml 10 Ml Vial) 40 unit SUBCUT DAILY@1200 [facility] Last Admin: 01/10/22 12:05 Dose: 40 unit Documented by: Insulin Glargine (Insulin Glargine,Hum.Rec.Anlog 100 Unit/Ml 10 Ml Vial) 80 unit SUBCUT BEDTIME [facility] Last Admin: 01/10/22 20:54 Dose: 80 unit Documented by: Insulin Human Lispro (Insulin Lispro 100 Unit/Ml 3 Ml Vial) 10 unit SUBCUT TIDAC [facility] Last Admin: 01/10/22 17:41 Dose: 10 unit Documented by: Isosorbide Mononitrate (Isosorbide Mononitrate 30 Mg Tab.Er.24h) 30 mg PO DAILY [facility]; Protocol Last Admin: 01/10/22 07:59 Dose: 30 mg Documented by: Loratadine (Loratadine 10 Mg Tablet) 10 mg PO DAILY [facility] Last Admin: 01/10/22 07:59 Dose: 10 mg Documented by: Lorazepam (Lorazepam 0.5 Mg Tablet) 0.5 mg PO Q4H PRN PRN Reason: Anxiety Last Admin: 01/09/22 16:39 Dose: 0.5 mg Documented by: Losartan Potassium (Losartan Potassium 25 Mg Tablet) 25 mg PO DAILY [facility]; Protocol Last Admin: 01/10/22 07:58 Dose: 25 mg Documented by: Meclizine HCl (Meclizine Hcl 25 Mg Tablet) 25 mg PO TID PRN PRN Reason: dizziness Last Admin: 01/05/22 08:38 Dose: 25 mg Documented by: Metoprolol Tartrate (Metoprolol Tartrate 25 Mg Tablet) 25 mg PO BID [facility]; Protocol Last Admin: 01/10/22 20:52 Dose: 25 mg Documented by: Montelukast Sodium (Montelukast Sodium 10 Mg Tablet) 10 mg PO BEDTIME [facility] Last Admin: 01/10/22 20:51 Dose: 10 mg Documented by: Omeprazole (Omeprazole 20 Mg Capsule.Dr) 20 mg PO BID@0630,1630 [facility] Last Admin: 01/11/22 05:36 Dose: 20 mg Documented by: Ondansetron HCl (Ondansetron Hcl 4 Mg/2 Ml Vial) 4 mg IVPUSH Q8H PRN PRN Reason: Nausea and Vomiting Last Admin: 01/09/22 09:28 Dose: 4 mg Documented by: Oxycodone HCl (Oxycodone Hcl Immed Release 5 Mg Tablet) 5 mg PO Q4H PRN PRN Reason: moderate pain Last Admin: 01/10/22 20:52 Dose: 5 mg Documented by: Pharmacy Consult (Consult Rx Perform Med Rec) 1 each MISCELLANE ONCE PRN PRN Reason: Consult order Quetiapine Fumarate (Quetiapine Fumarate 25 Mg Tablet) 12.5 mg PO BEDTIME [facility] Last Admin: 01/10/22 20:53 Dose: 12.5 mg Documented by: Sodium Chloride (0.9 % Sodium Chloride Flush 3 Ml Syringe) 3 ml IVFLUSH QSHIFT [facility] Last Admin: 01/11/22 01:05 Dose: Not Given Documented by: Thiamine HCl (Thiamine Hcl 100 Mg Tablet) 100 mg PO DAILY [facility] Last Admin: 01/10/22 07:59 Dose: 100 mg Documented by: Valacyclovir HCl (Valacyclovir Hcl 1,000 Mg Tablet) 1,000 mg PO BID [facility] Last Admin: 01/10/22 20:51 Dose: 1,000 mg Documented by: Venlafaxine HCl (Venlafaxine Hcl 25 Mg Tablet) 100 mg PO BID [facility] Last Admin: 01/10/22 20:52 Dose: 100 mg Documented by: Warfarin Sodium (Warfarin Sodium 5 Mg Tablet) 5 mg PO DAILY@1800 [facility] Last Admin: 01/10/22 17:42 Dose: 5 mg Documented by: Warfarin Sodium (Warfarin Sodium 2.5 Mg Tablet) 2.5 mg PO MOWESA@1800 [facility] <Angela Khan PA-C - Last Filed: 01/11/22 08:28> Time Spent With Patient Time: Total time spent is greater than 50% in coordination of care (as doc umented) at patient's floor/unit and/or counseling patient: <Angela Khan PA-C - Last Filed: 01/11/22 08:28> Time with patient: 15 - 24 minutes <Angela Khan PA-C - Last Filed: 01/11/22 08:28> Quality Stroke Does the patient have a stroke diagnosis?: No <Angela Khan PA-C - Last Filed: 01/11/22 08:28> VTE Prior VTE?: No <Angela Khan PA-C - Last Filed: 01/11/22 08:28> VTE Risk Level:: Medical - moderate - high <FELICIA Marquez Last Filed: 01/11/22 08:28> VTE Device Contraindication: Treatment Not Indicated <FELICIA Marquez Last Filed: 01/11/22 08:28> VTE Drug Contraindication: N/A - Med Ordered <FELICIA Marquez Last Filed: 01/11/22 08:28>
[2022-01-11] MEDS: Venlafaxine HCL 25 MG TABLET 100 MG PO (08:48)
[2022-01-11] MEDS: Loratadine 10 MG TABLET PO (08:48)
[2022-01-11] MEDS: Metoprolol Tartrate 25 MG TABLET PO (08:49)
[2022-01-11] MEDS: valACYclovir HCL 1,000 MG TABLET 1000 MG PO (08:49)
[2022-01-11] MEDS: Losartan Potassium 25 MG TABLET PO (08:49)
[2022-01-11] MEDS: Ezetimibe 10 MG TABLET PO (08:50)
[2022-01-11] MEDS: Isosorbide Mononitrate 30 MG TAB.ER.24H PO (08:50)
[2022-01-11] MEDS: Thiamine HCL 100 MG TABLET PO (08:50)
[2022-01-11] MEDS: Gabapentin 300 MG CAPSULE PO (08:50)
[2022-01-11] MEDS: 0.9 % Sodium Chloride Flush 3 ML SYRINGE IVFLUSH (08:50)
[2022-01-11] MEDS: oxyCODONE HCl Immed Release 5 MG TABLET 10 MG PO (10:33)
[2022-01-11 11:27] VITALS: BP 134/76; PULSE 70; RESP 18; TEMP 36.1; O2SAT 97
[2022-01-11 12:06] LABS: Glucose, Whole Blood 178 mg/dL (60-115)
[2022-01-11] MEDS: Insulin Glargine,Hum.rec.anlog 100 UNIT/ML 10 ML VIAL 40 UNIT SUBCUT (12:12)
[2022-01-11] MEDS: Insulin Lispro 100 UNIT/ML 3 ML VIAL 10 UNIT SUBCUT (12:13)
--- NOTE | 2022-01-11 12:14 | W.MHC.F2F ---
Service Date Service Date: 01/11/22 Encounter Date of encounter: 01/11/22 Reasons for Services Signs and symptoms assessed: wound care Reason for halfway: wound care, diabetic teaching, monitoring of PT/INR, medication management, medication treatment and teach disease management MD Overseeing Care: Michael Acosta Homebound: Leaving the home is medically contraindicated at this time without the asist of a device and/or another person due th the listed conditions above and below. Reason homebound: unsteady gait / fall risk, immunosuppression / infection risk and weakness related to hospital stay Homebound supporting statement: Wound care: Apply fluffs, kerlix wrap followed by albino wrap. Change daily. Keep Left leg elevated. Certification: Based on the above findings, I certify that this patient is confined to the home and needs intermittent halfway care, physical therapy and/or speech therapy, or continues to need occupational therapy. The patient is under my care, and I have initiated the establishment of the plan of care. The patient will be followed by a physician who will periodically review the plan of care.
--- NOTE | 2022-01-11 12:26 | PM.DS ---
DS: Providers Provider Date of Service: 01/11/22 Date of admission: 01/03/22 23:10 Primary care physician: Michael Acosta MD Consults: 01/03/22 23:13 Consult to General Surgery Routine Consulting Provider: Derrick Perkins Reason for consultation: osteomyelitis Has provider been notified: No Consult to Infectious Diseases Routine Consulting Provider: Autumn Raines Reason for consultation: osteo 01/04/22 06:34 Consult to Orthopedics Routine Consulting Provider: Bernard Nesbitt Reason for consultation: ardware infection? Has provider been notified: Yes DS: Diagnosis Discharge Diagnosis (1) Abscess of great toe: Status: Acute (2) Diabetic osteomyelitis: Status: Acute (3) Cellulitis in diabetic foot: Status: Acute DS: Summary Hospital Course Hospital Course: from admission H+P by hospitalist Jacki Colin, 01/03/22: this is a 61-year-old male with past medical history of diabetes, asthma, hyperlipidemia, depression, CAD status post CABG? on Coumadin per patient,who presents to the hospital with complaints of left toe pain.? Patient reports that his symptoms started about 3 4 days ago with significant pain in his left toe, 10/10, radiating slightly of his foot, worsening, associated with chills, no alleviating? factors, movement or touching the toe makes the pain significantly worse.? Patient denies any chest pain, no shortness of breath, no abdominal pain nausea or vomiting, no diarrhea constipation, no urinary symptoms and no lower extremity edema. no headache or change in vision. on arrival to the ED pt found to be hemodynamically stable ?labs are significant for WBC count of 11.9,? hemoglobin of 13.8, hematocrit of 44.9, ESR 62, INR 3.1,? CRP of 16.12, hyperglycemia with a glucose of 334 ?foot CT shows extensive soft tissue swelling with a more organized collection overlying the distal phalanx of the 1st toe with associated destructive changes of the distal phalanx concerning for osteomyelitis ? patient also has hardware in his left ankle with a CT of the foot showing? perihardware lucency in the talus raises the possibility of hardware failure or infection ?patient started on IV antibiotics and will be admitted for further management This 61yo M with DM2 and CAD was admitted with L great toe abscess/cellulitis/osteomyelitis. He was treated with vancomycin and piperacillin/tazobactam IV for 8 days. He underwent amputation of the left great toe on 01/07/22 for source control. He was discharged on 7 days of amoxicillin/clavulanate with VNA services for wound care. Warfarin was held preoperative and resumed postoperatively and he will need repeat INR on 01/15/22. He should follow up with Primary Care and General Surgery in 1-2 weeks. Time Spent with Patient Time attestation: Total time spent providing and/or coordinating discharge services: 40 Discharge coordination time: Greater than 30 minutes Quality: Stroke Does the patient have a stroke diagnosis?: No Physical Exam Vital Signs: Vital Signs: Last Vital Signs Temp 96.9 F 01/11/22 11:27 Pulse 70 01/11/22 11:27 Resp 18 01/11/22 11:27 BP 134/76 01/11/22 11:27 Pulse Ox 97 01/11/22 11:27 BMI result Body Mass Index 41.0 Gen: in no acute distress HEENT: sclera anicteric, moist mucus membranes Neck: supple Lungs: clear to auscultation bilaterally Heart: regular rate and rhythm, no murmurs Abd: soft, non-tender, non-distended, obese Ext: L foot amputation site with intact sutures, improving erythema/edema, no drainage Skin: warm/well-perfused Neuro: alert and oriented x3, no focal findings Psych: appropriate affect DS: Data Data Completed and Pending Completed studies during hospitalization [Text1]: Pending at discharge 01/07/22 15:50 Surgical [PTH] Routine Laboratory Results WBC 8.1 X10*3/uL (4.8-10.8) 01/11/22 05:35 RBC 3.73 X10*6/uL (4.60-5.80) L 01/11/22 05:35 Hgb 10.5 g/dl (14.0-18.0) L 01/11/22 05:35 Hct 33.0 % (42.0-52.0) L 01/11/22 05:35 MCV 88.5 fL (80.0-98.0) 01/11/22 05:35 MCH 28.2 pg (27.0-33.0) 01/11/22 05:35 MCHC 31.8 g/dl (31.0-36.0) 01/11/22 05:35 RDW 13.0 % (11.0-16.0) 01/11/22 05:35 Plt Count 297 X10*3/uL (160-400) 01/11/22 05:35 MPV 10.1 fL (9.4-12.4) 01/11/22 05:35 Immature Gran % (Auto) 0.6 % (0.0-0.4) H 01/11/22 05:35 Neut % (Auto) 67.0 % (45-73) 01/11/22 05:35 Lymph % (Auto) 18.2 % (20-40) L 01/11/22 05:35 [place] % (Auto) 12.5 % (2-11) H 01/11/22 05:35 Eos % (Auto) 1.2 % (0-4) 01/11/22 05:35 Baso % (Auto) 0.5 % (0-2) 01/11/22 05:35 Lymph # (Auto) 1.5 X10*3/uL (1.2-4.9) 01/11/22 05:35 [place] # (Auto) 1.0 X10*3/uL (0.1-1.2) 01/11/22 05:35 Eos # (Auto) 0.1 X10*3/uL (0.0-0.4) 01/11/22 05:35 Baso # (Auto) 0.0 X10*3/uL (0.0-0.2) 01/11/22 05:35 Abs Immat Gran (auto) 0.05 X10*3/uL (0.00-0.03) H 01/11/22 05:35 Absolute Neuts (auto) 5.4 x10*3/uL (2.0-8.3) 01/11/22 05:35 Absolute Nucleated RBC 0.000 X10*3/uL (0.0-0.012) 01/11/22 05:35 Nucleated RBC % (auto) 0.0 /100WBC (0.0-0.2) 01/11/22 05:35 ESR 91 MM/HR (0-15) H 01/11/22 05:35 PT 15.2 SEC (9.9-13.0) H 01/11/22 05:35 INR 1.3 (0.9-1.1) H 01/11/22 05:35 Sodium 141 mmol/L (135-145) 01/11/22 05:35 Potassium 4.1 mmol/L (3.3-5.1) 01/11/22 05:35 Chloride 107 mmol/L (96-108) 01/11/22 05:35 Carbon Dioxide 27 mmol/L (22-29) 01/11/22 05:35 Anion Gap 11 (12-20) L 01/11/22 05:35 BUN 11 mg/dL (9-16) 01/11/22 05:35 Creatinine 1.18 mg/dL (0.5-1.4) 01/11/22 05:35 Estim Creat Clear Calc 85.3 01/11/22 05:35 Estimated GFR > 60 01/11/22 05:35 POC Glucose 178 mg/dL (60-115) H 01/11/22 11:22 Random Glucose TNP 01/11/22 05:35 Fasting Glucose 111 mg/dL (60-99) H D 01/11/22 05:35 Lactic Acid 1.7 mmol/L (0.5-2.0) 01/03/22 18:00 Uric Acid 3.7 mg/dL (3.4-7.0) 01/03/22 18:00 Calcium 8.4 mg/dL (8.4-10.2) 01/11/22 05:35 Magnesium 2.3 mg/dL (1.6-2.6) 01/03/22 18:00 Total Bilirubin 0.3 mg/dL (0.0-1.0) 01/11/22 05:35 Direct Bilirubin 0.3 mg/dL (0.0-0.5) 01/03/22 18:00 AST 18 U/L (5-37) 01/11/22 05:35 ALT 15 U/L (0-40) 01/11/22 05:35 Alkaline Phosphatase 82 U/L (39-117) 01/11/22 05:35 C-Reactive Protein 3.79 mg/dL (< or = 0.50) H 01/11/22 05:35 Total Protein 5.3 g/dL (6.5-8.0) L 01/11/22 05:35 Albumin 3.0 g/dL (3.5-5.0) L 01/11/22 05:35 Vancomycin Trough 15.0 mcg/mL (10.0-20.0) 01/09/22 18:46 Random Vancomycin 12.9 mcg/mL (15-20) L 01/08/22 19:08 COVID-19 ([facility]) Negative (Negative) 01/03/22 18:00 COVID-19 Clin Com See Note 01/03/22 18:00 Impressions Ankle X-Ray 01/03/22 18:21 IMPRESSION: Postsurgical changes of the distal tibia and fibula, with hardware grossly intact. Some indistinctness of the tibiotalar joint, that may represent partial fusion with associated hypertrophic changes. No acute bony abnormality. Diffuse soft tissue swelling. Foot CT 01/03/22 18:53 IMPRESSION: Complex examination. There is extensive soft tissue swelling with a more organized collection overlying the distal phalanx of the first toe with associated destructive changes of the distal phalanx concerning for osteomyelitis. Correlate clinically. There is decreased bony mineralization and extensive orthopedic hardware which limits assessment of fine bony details predominantly in the tibia, fibula and talus which demonstrate somewhat irregularity of their cortex and sclerosis in which infection cannot be excluded. Kathie hardware lucency in the talus raises the possibility of hardware failure or infection. Foot MRI 01/04/22 13:20 IMPRESSION: Soft tissue swelling of the first toe with a more organized T2 bright peripherally enhancing focus in the dorsal aspect of the first distal phalanx measuring approximately 2.3 x 2 x 1.6 cm, suspicious for abscess. Redemonstrated destructive changes in the first distal phalanx, with diffuse abnormal signal and nonvisualization of normal T1 signal in the residual bone. Destructive changes are well visualized on the prior CT. Findings highly suspicious for osteomyelitis. In the foot, there is diffuse dorsal soft tissue swelling and subcutaneous edema/cellulitis. Discharge Plan Discharge Patient Disposition: Home Health Service Discharge Diagnosis: diabetic foot infection with abscess/cellulitis/osteomyelitis Referrals: Pawel Hinton MD [Physician] - 1 Week Michael Acosta MD [Primary Care Provider] - 1 Week Discharge Medications: New amoxicillin-pot clavulanate 875-125 mg tablet 1 tab PO BID Qty: 14 0RF oxycodone 10 mg tablet 10 mg PO Q8H PRN (Reason: severe pain) Qty: 18 0RF (DME) [facility] See Rx Instructions .Route Qty: 1 0RF Rx Instructions: As directed Continued quetiapine 25 mg tablet 0.5 tab PO BEDTIME 0RF Lantus U-100 Insulin 100 unit/mL solution 100 unit subcut BEDTIME 0RF Rx Instructions: 50 units at lunch and 100 units at bedtime Lantus U-100 Insulin 100 unit/mL solution 50 unit subcut DAILY@1200 0RF Rx Instructions: 50 units at lunch and 100 units at bedtime valacyclovir 1 gram tablet 2 tab PO BID 0RF Rx Instructions: 1 more tablet left of 2 day course isosorbide mononitrate 30 mg tablet extended release 24 hr 1 tab PO QAM 0RF thiamine HCl (vitamin B1) 100 mg tablet 1 tab PO DAILY 0RF venlafaxine 100 mg tablet 1 tab PO BID 0RF pantoprazole 40 mg tablet,delayed release (DR/EC) 1 tab PO BID@0630,1630 0RF warfarin 5 mg tablet 5 mg PO DAILY@1800 0RF Rx Instructions: 5 mg on all days except 7.5 mg on losartan 25 mg tablet 1 tab PO DAILY 0RF gabapentin 300 mg capsule 1 cap PO TID 0RF montelukast 10 mg tablet 1 tab PO BEDTIME 0RF insulin lispro 100 unit/mL solution 30 unit subcut TIDAC 0RF zolpidem 10 mg tablet 1 tab PO BEDTIME PRN (Reason: insomnia) 0RF hydroxyzine HCl 10 mg tablet 2 tab PO QID PRN (Reason: itch) 0RF loratadine 10 mg tablet 1 tab PO DAILY 0RF oxycodone 5 mg tablet 2 tab PO Q4H 0RF ezetimibe 10 mg tablet 1 tab PO DAILY 0RF rosuvastatin 40 mg tablet 1 tab PO BEDTIME 0RF metoprolol tartrate 25 mg tablet 1 tab PO BID 0RF oxycodone [OxyContin] 20 mg tablet,oral only,ext.rel.12 hr 1 tab PO BID 0RF ondansetron HCl 4 mg tablet 1 tab PO TID PRN (Reason: nausea) 0RF meclizine 25 mg tablet 1 tab PO TID PRN (Reason: dizziness) 0RF warfarin 5 mg tablet 2.5 mg PO MOWESA@1800 0RF Rx Instructions: 5 MG ON ALL DAYS EXCEPT 7.5 MG ON MOWESA Discharge Orders: Discharge Order (Routine); Ordered 01/11/22 Ordered By: Cezar Esposito Diet: advance to usual diet and diabetic diet Activity on Discharge: As tolerated Stand Alone Forms: Patient Portal Discharge page Other Ambulatory Orders: Prothrombin Time INR (Routine) Timeframe: [id number] Facility: [facility] - Location: Laboratory Ordered By: Cezar Esposito Activity Restrictions/Additional Instructions: Wound care: Apply fluffs, kerlix wrap followed by albino wrap. Change daily. Keep Left leg elevated. Call Your Doctor If: ? ? -Your temperature exceeds 101.5? F? ? ? -You experience excessive pain or swelling ? ? -You have an unexpected reaction to medication ? ? -You experience continued vomiting/nausea Care Plan Goals: cure of infection Health Concerns: diabetic foot infection with abscess/cellulitis/osteomyelitis Plan of Treatment: antibiotics: amoxicillin/clavaulanate 875/125 mg twice daily for 7 days wound care: Apply fluffs, kerlix wrap followed by albino wrap. Change daily. Keep Left leg elevated. follow up with Primary Care and General Surgery in 1-2 weeks Assessment: see Discharge Summary Patient Instructions: Osteomyelitis (DC)
--- NOTE | 2022-01-11 12:55 | P.PICC_ITS ---
PICC Line Insertion PICC REMOVAL PER REQUEST RUE DOUBLE LUMEN, 5-SPANISH, 42 CM PICC REMOVED PER ORDER REQUEST. PT DENIES ANY COMPLAINTS R/T PICC. NO NOTED BRUISING/SWELLING/BLEEDING. GAUZE/TEGADERM DRESSING APPLIED TO ACCESS SITE. PRIMARY RN AWARE.
== END 2022-01-11 14:15 | disposition home health service (06) | DRG 314 ==
LOC: HO.ED 21:21 → HO.EDOVER 01-04 02:23 → HO.S3 01-04 18:58
PROVIDERS: Emergency Medicine; Hospitalist; Nurse Practitioner Family; Surgery; Admitting Provider Internal Medicine; Emergency Provider Emergency Medicine Emergency Medical Services; PCP Internal Medicine; Visit Provider Family Medicine
PROC: 0Y6Q0Z0 Detachment at Left 1st Toe, Complete, Open Approach (ICD-10-PCS; principal; 2022-01-07 14:50)
DX: T84.69XA Infection and inflammatory reaction due to internal fixation device of other site, initial encounter (principal); E11.649 Type 2 diabetes mellitus with hypoglycemia without coma; M86.172 Other acute osteomyelitis, left ankle and foot; E11.40 Type 2 diabetes mellitus with diabetic neuropathy, unspecified; L03.116 Cellulitis of left lower limb; E11.69 Type 2 diabetes mellitus with other specified complication; D72.829 Elevated white blood cell count, unspecified; E11.65 Type 2 diabetes mellitus with hyperglycemia; E66.01 Morbid (severe) obesity due to excess calories; E78.5 Hyperlipidemia, unspecified; F32.A Depression, unspecified; J45.909 Unspecified asthma, uncomplicated; I25.10 Atherosclerotic heart disease of native coronary artery without angina pectoris; L02.612 Cutaneous abscess of left foot; Z20.822 Contact with and (suspected) exposure to COVID-19; Z96.643 Presence of artificial hip joint, bilateral; Z68.41 Body mass index [BMI] 40.0-44.9, adult; Z95.1 Presence of aortocoronary bypass graft; Z87.891 Personal history of nicotine dependence; Z79.4 Long term (current) use of insulin; Z79.01 Long term (current) use of anticoagulants; Z79.899 Other long term (current) drug therapy
CPT/HCPCS: 36415; 36573; 73600; 73701; 73720; 80048; 80053; 80076; 80202; 82565; 82947; 83605; 83735; 84550; 85025; 85027; 85610; 85652; 86140; 87040; 87071; 87147; 87205; 87635; 88305; 88311; 93005; 96365; 96367; 96375; 96376; 97162; 99024; 99285; A9585; C1751; J0131; J0690; J1100; J1170; J2060; J2250; J2405; J2543; J3010; J3370; Q9967

== ENCOUNTER 2022-01-20 19:38 | Inpatient (IN) | payer MEDICAID, SELFPAY ==
--- NOTE | ~2022-01-20 | XR_ITS ---
EXAMINATION: XR FOOT, LEFT CLINICAL INFORMATION: ?bone erosion 1st MT COMPARISON: MRI of the foot dated 01/04/2022 TECHNIQUE: AP, lateral, and oblique views of the left foot. FINDINGS: Status post amputation of the left great toe at the level of the metatarsal midshaft. There is subtle cortical irregularity at the margin of the amputation which could be due to new osteolysis or changes of a recent dilatation. No additional erosive changes are identified. Soft tissues are diffusely swollen and edematous. There is dorsiflexion of the proximal phalanges at the MTP joints. Calcific atherosclerosis is noted throughout the foot and ankle. Chronic changes of prior osseous fusion at the talocrural joint with surrounding lucency at the site of fixation. Clear osseous fusion in this region is not seen. Degenerative arthritis is evident in the midfoot. XR/XR foot LT 2V IMPRESSION: Status post great toe amputation at the first metatarsal shaft with irregularity of the distal margin of the metatarsal at the site of dictation. This irregularity may be due to early changes of bone remodeling/resorption status post amputation, though osteomyelitis is on the differential. Consider correlation with MRI of the foot with and without contrast for further assessment if there is a high degree of clinical suspicion for infection.
--- NOTE | ~2022-01-20 | IR_ITS ---
PROCEDURE: IR INSERTION OF PICC CLINICAL INFORMATION: PICC line placement on the floor attempted with catheter directed into the right internal jugular vein. Repositioning of PICC line. COMPARISON: Chest x-ray of 01/24/2022. TECHNIQUE: Fluoroscopic-guided repositioning of right upper extremity PICC line. All elements of maximal sterile barrier technique followed including use of cap, mask, sterile gown, sterile gloves, a sterile full body drape and hand hygiene. Also followed skin preparation with 2% chlorhexidine for cutaneous antisepsis, and sterile ultrasound preparation with sterile gel and probe cover when applicable. FINDINGS: Informed consent was obtained from the patient prior to the procedure. During this process, the procedure and potential alternatives were explained, along with the intended outcome and benefits. The risks of the procedure, as well as the risk of not doing the procedure, were discussed. The patient was given the opportunity to ask questions regarding the procedure and appeared competent to make medical decisions. A signed consent form which documents this discussion was placed in the medical record. Guidewire was placed through the indwelling PICC line and was placed down into the superior vena cava. The indwelling PICC line was then removed and over the wire a new PICC line trimmed to 44 cm in length was placed with tip of the catheter at the cavoatrial junction. Patient tolerated procedure without difficulty. The PICC line was flushed with sterile saline. A Biopatch was placed at the skin entry site. Fluoroscopy time: 0.8 minutes DAP: 522 cGy-cm2 IR/IR cvc insert peripheral IMPRESSION: Repositioning of single lumen PICC line within the right upper extremity with tip now at the cavoatrial junction.
--- NOTE | ~2022-01-20 | MR_ITS ---
EXAMINATION: MRI FOOT WITHOUT AND WITH CONTRAST, LEFT CLINICAL INFORMATION: Osteomyelitis. COMPARISON: Multiple priors, most recent left foot radiographs dated 01/20/2022 and left foot MRI dated 01/04/2022. TECHNIQUE: Multisequence MR imaging of the left foot was obtained before and after the administration of 10 mL Gadavist contrast on a high-field strength scanner. FINDINGS: Interval resection through the distal aspect of the 1st metatarsal and including the 1st proximal and distal phalanges. Within the surgical bed there is a somewhat irregular, peripherally enhancing fluid collection measuring up to 3.2 x 1.6 x 2.9 cm (AP by ML by CC), consistent with postoperative seroma versus abscess formation. Within the adjacent distal aspect of the 1st metatarsal there is high T2 and low T1 signal with postcontrast enhancement, concerning for acute osteomyelitis. No additional abnormal marrow signal. No stress reaction or fracture. Edema throughout the intrinsic musculature of the foot which can be seen in diabetic patients. The Lisfranc ligament is intact. Dorsal subcutaneous edema. MR/MR foot LT wo/w con IMPRESSION: Resection of the distal 1st metatarsal and 1st phalanges with an irregular, peripherally enhancing fluid collection in the surgical bed measuring up to 3.2 cm. Findings could represent a postoperative seroma versus abscess formation. Adjacent edema and enhancement within the remaining 1st metatarsal, concerning for acute osteomyelitis.
--- NOTE | ~2022-01-20 | XR_ITS ---
EXAMINATION: XR CHEST CLINICAL INFORMATION: PICC line placement COMPARISON: August 13, 2018 and August 11, 2018 TECHNIQUE: AP portable view of the chest was obtained. FINDINGS: There appears to be small right pleural effusion which is loculated versus pleural parenchymal scarring. The above appearance was present on study of August 11, 2018. Patient status post median sternotomy with a few broken sternotomy wires. Status post cervical spine surgery. Heart normal size. No evidence of pulmonary edema. Hazy density overlying the right upper lobe which may be superimposition of first rib. A right upper extremity PICC line is seen with its tip directed up the right internal jugular vein with the tip not being visualized on this study. The above critical result was called to the nurse, Lis, placing the PICC line. XR/XR chest 1V IMPRESSION: Right upper extremity PICC line directed up the right internal jugular vein. Partially loculated right pleural effusion versus pleural parenchymal scarring. Question right upper lobe density versus overlying structures. CT of the chest would be of help in further evaluation to rule out possible developing mass.
[2022-01-20 19:48] VITALS: BP 170/102; BP 172/94; PULSE 100; PULSE 99; RESP 16; TEMP 36.7; O2SAT 96; BMI 41.0
[2022-01-20 19:56] LABS: Glucose, Whole Blood 515 mg/dL (60-115)
--- NOTE | 2022-01-20 19:59 | ECG_ITS ---
Test Reason : weakness Blood Pressure : / mmHG Vent. Rate : 098 BPM Atrial Rate : 098 BPM P-R Int : 198 ms QRS Dur : 090 ms QT Int : 374 ms P-R-T Axes : 049 -13 081 degrees QTc Int : 477 ms Normal sinus rhythm Possible old inferior infarct Non-specific intra-ventricular conduction delay When compared with ECG of 07-JAN-2022 09:04, No significant changes seen Referred By: Fatoumata Nieto Electronically Signed By:SID ORTIZ
[2022-01-20 20:07] VITALS: PULSE 96; RESP 15; O2SAT 97
--- NOTE | 2022-01-20 20:07 | ED.GENADULT ---
HPI - General Adult General Chief complaint: General Medical Stated complaint: N/V Time Seen by Provider: 01/20/22 19:58 Source: patient Mode of arrival: ambulatory History of Present Illness HPI narrative: Patient is 61 years old with past medical history of diabetes, asthma, hyperlipidemia, depression, CAD on Coumadin status post left greater toe amputation for osteomyelitis on 01/07/2022 comes back as since discharge on 01/11 patient not been feeling good having nausea and vomiting multiple times patient was supposed to be on Augmentin which he took for a day only and stopped because of nausea vomiting , blood sugar was in 200 range today prior to arrival blood glucose was 588. Also patient noticed slight discharge at the site of amputation. Having chills vomiting 3- 4 times a day. No abdominal pain Related Data Home Medications Medication Instructions Recorded Confirmed ezetimibe 10 mg tablet 1 tab PO DAILY 01/03/22 01/03/22 gabapentin 300 mg capsule 1 cap PO TID 01/03/22 01/03/22 hydroxyzine HCl 10 mg tablet 2 tab PO QID PRN 01/03/22 01/03/22 insulin glargine 100 unit/mL 50 unit SUBCUT DAILY@1200 01/03/22 01/03/22 subcutaneous solution (Lantus U-100 Insulin) insulin glargine 100 unit/mL 100 unit SUBCUT BEDTIME 01/03/22 01/03/22 subcutaneous solution (Lantus U-100 Insulin) insulin lispro 100 unit/mL 30 unit SUBCUT TIDAC 01/03/22 01/03/22 subcutaneous solution isosorbide mononitrate 30 mg 1 tab PO QAM 01/03/22 01/03/22 tablet,extended release 24 hr loratadine 10 mg tablet 1 tab PO DAILY 01/03/22 01/03/22 losartan 25 mg tablet 1 tab PO DAILY 01/03/22 01/03/22 meclizine 25 mg tablet 1 tab PO TID PRN 01/03/22 01/03/22 metoprolol tartrate 25 mg tablet 1 tab PO BID 01/03/22 01/03/22 montelukast 10 mg tablet 1 tab PO BEDTIME 01/03/22 01/03/22 ondansetron HCl 4 mg tablet 1 tab PO TID PRN 01/03/22 01/03/22 oxycodone 20 mg tablet,crush 1 tab PO BID 01/03/22 01/03/22 resistant,extended release 12 hr (OxyContin) oxycodone 5 mg tablet 2 tab PO Q4H 01/03/22 01/03/22 pantoprazole 40 mg tablet,delayed 1 tab PO BID@0630,1630 01/03/22 01/03/22 release quetiapine 25 mg tablet 0.5 tab PO BEDTIME 01/03/22 01/03/22 rosuvastatin 40 mg tablet 1 tab PO BEDTIME 01/03/22 01/03/22 thiamine HCl (vitamin B1) 100 mg 1 tab PO DAILY 01/03/22 01/03/22 tablet valacyclovir 1 gram tablet 2 tab PO BID 01/03/22 01/03/22 venlafaxine 100 mg tablet 1 tab PO BID 01/03/22 01/03/22 warfarin 5 mg tablet 2.5 mg PO MOWESA@1800 01/03/22 01/03/22 warfarin 5 mg tablet 5 mg PO DAILY@1800 01/03/22 01/03/22 zolpidem 10 mg tablet 1 tab PO BEDTIME PRN 01/03/22 01/03/22 Previous Rx's Medication Instructions Recorded amoxicillin 875 mg-potassium 1 tab PO BID #14 tab 01/11/22 clavulanate 125 mg tablet oxycodone 10 mg tablet 10 mg PO Q8H PRN #18 tab 01/11/22 walker #1 ea 01/11/22 off loading shoe #1 ea 01/15/22 walker #1 ea 01/15/22 Allergies Allergy/AdvReac Type Severity Reaction Status Date / Time morphine AdvReac Intermediate Hallucinati Verified 07/06/21 06:43 ons Review of Systems Review of Systems: Yes all other systems are reviewed and are negative [facility] Past Medical History Medical History Asthma Cellulitis Diabetes DMII (diabetes mellitus, type 2) FHx: bilateral hip replacements Hyperglycemia Hypertension Orthopedic hardware present Surgical History H/O bilateral hip replacements History of ankle surgery History of back surgery History of neck surgery S/P quadruple vessel bypass Family History Family History Other No family history of coronary artery disease Social History Social History Household Members: Family Housing: Apartment Do you presently have visiting nurse or other home services: Yes Alcohol intake: never Patient Tobacco Use Status: Former Tobacco user Tobacco use type: Cigarette Advance Directives: Yes Advance Directives on File: Yes Advance Directives Date on File: 01/04/22 service: Yes Current occupational status: retired Physical Exam ED Vital Signs: Vital Signs - 24 hr 01/20/22 19:48 01/20/22 20:07 01/20/22 21:13 Temperature 98.1 F Pulse Rate 99 96 Respiratory Rate 16 15 15 Blood Pressure 172/94 H Pulse Oximetry 96 97 01/20/22 22:12 01/20/22 22:22 Temperature Pulse Rate 99 97 Respiratory Rate 15 14 Blood Pressure 144/82 H 153/79 H Pulse Oximetry 97 99 BMI result Body Mass Index 41.0 Appearance: Alert. Oriented X3. No acute distress. ENT: Pharynx normal. Oral Mucosa moist Neck: Normal inspection. Neck supple. CVS: Normal heart rate and rhythm. Pulses normal. Respiratory: No respiratory distress. Equal air entry bilateral, no wheezing/rales/rhonchi Abdomen: Soft and nontender. Bowel sounds are present, no mass palpable, no CVA tenderness Skin: Skin warm and dry. Normal skin color. Normal skin turgor. Extremities: No lower extremity edema. No calf tenderness left foot status post greater toe amputation slightly warm no significant pus discharge Neuro: Oriented X 3. No motor deficit. No sensory deficit.No cerebellar signs , cranial nerves II-XII intact Medical Decision Making MDM Narrative Medical decision making narrative: Patient with status post left great toe amputation comes in with nausea vomiting with hyperglycemia nonketotic with increased pain in the site of amputation with slight pus discharge lab workup shows leukocytosis restart patient's IV Zosyn IV hydration Lab Data Lab results reviewed: Yes I reviewed the patient's lab results. Result diagrams: 01/20/22 20:57 01/20/22 20:57 Labs: Lab Results 01/20/22 01/20/22 01/20/22 Range/Units 19:47 20:55 20:55 WBC (4.8-10.8) X10*3/uL RBC (4.60-5.80) X10*6/uL Hgb (14.0-18.0) g/dl Hct (42.0-52.0) % MCV (80.0-98.0) fL MCH (27.0-33.0) pg MCHC (31.0-36.0) g/dl RDW (11.0-16.0) % Plt Count (160-400) X10*3/uL MPV (9.4-12.4) fL Immature Gran % (Auto) (0.0-0.4) % Neut % (Auto) (45-73) % Lymph % (Auto) (20-40) % [place] % (Auto) (2-11) % Eos % (Auto) (0-4) % Baso % (Auto) (0-2) % Lymph # (Auto) (1.2-4.9) X10*3/uL [place] # (Auto) (0.1-1.2) X10*3/uL Eos # (Auto) (0.0-0.4) X10*3/uL Baso # (Auto) (0.0-0.2) X10*3/uL Abs Immat Gran (auto) (0.00-0.03) X10*3/uL Absolute Neuts (auto) (2.0-8.3) x10*3/uL Absolute Nucleated RBC (0.0-0.012) X10*3/uL Nucleated RBC % (auto) (0.0-0.2) /100WBC ESR (0-15) MM/HR VBG pH (7.32-7.43) VBG pCO2 mmHg VBG pO2 mmHg VBG HCO3 (22-26) mmol/L VBG O2 Saturation % VBG Base Excess mmol/L Sodium (135-145) mmol/L Potassium (3.3-5.1) mmol/L Chloride (96-108) mmol/L Carbon Dioxide (22-29) mmol/L Anion Gap (12-20) BUN (9-16) mg/dL Creatinine (0.5-1.4) mg/dL Estim Creat Clear Calc Estimated GFR POC Glucose 515 H* (60-115) mg/dL Random Glucose (60-115) mg/dL Lactic Acid (0.5-2.0) mmol/L Calcium (8.4-10.2) mg/dL Magnesium (1.6-2.6) mg/dL Total Bilirubin (0.0-1.0) mg/dL Direct Bilirubin (0.0-0.5) mg/dL AST (5-37) U/L ALT (0-40) U/L Alkaline Phosphatase (39-117) U/L C-Reactive Protein (< or = 0.50) mg/dL Total Protein (6.5-8.0) g/dL Albumin (3.5-5.0) g/dL Acetone, Qual (Negative) COVID-19 ([facility]) Negative (Negative) COVID-19 Clin Com See Note Influenza Type A (MARIE) Negative (Negative) Influenza Type B (MARIE) Negative (Negative) Influenza A & B Note See Note 01/20/22 01/20/22 01/20/22 Range/Units 20:57 20:57 20:57 WBC 12.8 H (4.8-10.8) X10*3/uL RBC 4.78 D (4.60-5.80) X10*6/uL Hgb 13.5 L D (14.0-18.0) g/dl Hct 40.2 L D (42.0-52.0) % MCV 84.1 (80.0-98.0) fL MCH 28.2 (27.0-33.0) pg MCHC 33.6 (31.0-36.0) g/dl RDW 12.9 (11.0-16.0) % Plt Count 465 H D (160-400) X10*3/uL MPV 9.7 (9.4-12.4) fL Immature Gran % (Auto) 0.5 H (0.0-0.4) % Neut % (Auto) 77.3 H (45-73) % Lymph % (Auto) 15.5 L (20-40) % [place] % (Auto) 5.9 (2-11) % Eos % (Auto) 0.3 (0-4) % Baso % (Auto) 0.5 (0-2) % Lymph # (Auto) 2.0 (1.2-4.9) X10*3/uL [place] # (Auto) 0.8 (0.1-1.2) X10*3/uL Eos # (Auto) 0.0 (0.0-0.4) X10*3/uL Baso # (Auto) 0.1 (0.0-0.2) X10*3/uL Abs Immat Gran (auto) 0.06 H (0.00-0.03) X10*3/uL Absolute Neuts (auto) 9.9 H (2.0-8.3) x10*3/uL Absolute Nucleated RBC 0.000 (0.0-0.012) X10*3/uL Nucleated RBC % (auto) 0.0 (0.0-0.2) /100WBC ESR (0-15) MM/HR VBG pH (7.32-7.43) VBG pCO2 mmHg VBG pO2 mmHg VBG HCO3 (22-26) mmol/L VBG O2 Saturation % VBG Base Excess mmol/L Sodium 135 (135-145) mmol/L Potassium 4.5 (3.3-5.1) mmol/L Chloride 101 (96-108) mmol/L Carbon Dioxide 22 (22-29) mmol/L Anion Gap 17 (12-20) BUN 14 (9-16) mg/dL Creatinine 1.26 (0.5-1.4) mg/dL Estim Creat Clear Calc 78.3 Estimated GFR 58 POC Glucose (60-115) mg/dL Random Glucose 518 H* (60-115) mg/dL Lactic Acid 1.7 (0.5-2.0) mmol/L Calcium 9.3 D (8.4-10.2) mg/dL Magnesium 2.3 (1.6-2.6) mg/dL Total Bilirubin 0.4 (0.0-1.0) mg/dL Direct Bilirubin 0.2 (0.0-0.5) mg/dL AST 12 (5-37) U/L ALT 15 (0-40) U/L Alkaline Phosphatase 99 D (39-117) U/L C-Reactive Protein 0.67 H (< or = 0.50) mg/dL Total Protein 7.1 D (6.5-8.0) g/dL Albumin 4.0 D (3.5-5.0) g/dL Acetone, Qual Negative (Negative) COVID-19 ([facility]) (Negative) COVID-19 Clin Com Influenza Type A (MARIE) (Negative) Influenza Type B (MARIE) (Negative) Influenza A & B Note 01/20/22 01/20/22 01/20/22 Range/Units 20:57 21:01 23:14 WBC (4.8-10.8) X10*3/uL RBC (4.60-5.80) X10*6/uL Hgb (14.0-18.0) g/dl Hct (42.0-52.0) % MCV (80.0-98.0) fL MCH (27.0-33.0) pg MCHC (31.0-36.0) g/dl RDW (11.0-16.0) % Plt Count (160-400) X10*3/uL MPV (9.4-12.4) fL Immature Gran % (Auto) (0.0-0.4) % Neut % (Auto) (45-73) % Lymph % (Auto) (20-40) % [place] % (Auto) (2-11) % Eos % (Auto) (0-4) % Baso % (Auto) (0-2) % Lymph # (Auto) (1.2-4.9) X10*3/uL [place] # (Auto) (0.1-1.2) X10*3/uL Eos # (Auto) (0.0-0.4) X10*3/uL Baso # (Auto) (0.0-0.2) X10*3/uL Abs Immat Gran (auto) (0.00-0.03) X10*3/uL Absolute Neuts (auto) (2.0-8.3) x10*3/uL Absolute Nucleated RBC (0.0-0.012) X10*3/uL Nucleated RBC % (auto) (0.0-0.2) /100WBC ESR 65 H (0-15) MM/HR VBG pH 7.38 (7.32-7.43) VBG pCO2 38 mmHg VBG pO2 39 mmHg VBG HCO3 22 (22-26) mmol/L VBG O2 Saturation 58.0 % VBG Base Excess -1.8 mmol/L Sodium (135-145) mmol/L Potassium (3.3-5.1) mmol/L Chloride (96-108) mmol/L Carbon Dioxide (22-29) mmol/L Anion Gap (12-20) BUN (9-16) mg/dL Creatinine (0.5-1.4) mg/dL Estim Creat Clear Calc Estimated GFR POC Glucose 370 H* (60-115) mg/dL Random Glucose (60-115) mg/dL Lactic Acid (0.5-2.0) mmol/L Calcium (8.4-10.2) mg/dL Magnesium (1.6-2.6) mg/dL Total Bilirubin (0.0-1.0) mg/dL Direct Bilirubin (0.0-0.5) mg/dL AST (5-37) U/L ALT (0-40) U/L Alkaline Phosphatase (39-117) U/L C-Reactive Protein (< or = 0.50) mg/dL Total Protein (6.5-8.0) g/dL Albumin (3.5-5.0) g/dL Acetone, Qual (Negative) COVID-19 ([facility]) (Negative) COVID-19 Clin Com Influenza Type A (MARIE) (Negative) Influenza Type B (MARIE) (Negative) Influenza A & B Note Discharge Plan Discharge Clinical Impression: Hyperglycemia due to diabetes mellitus, Cellulitis in diabetic foot Patient Disposition: Admitted As Inpatient
[2022-01-20] MEDS: Insulin Lispro 100 UNIT/ML 3 ML VIAL 12 UNIT SUBCUT (20:34)
[2022-01-20] MEDS: 0.9 % Sodium Chloride 1,000 ML 999 ML IV ×2 (20:35→23:46)
[2022-01-20 21:07] LABS: MANUAL DIFF FLAG NO
[2022-01-20 21:08] LABS: Basophils Absolute Auto 0.1 X10*3/uL (0.0-0.2); Basophils Percent Auto 0.5 % (0-2); Eosinophils Percent Auto 0.3 % (0-4); Hematocrit 40.2 % (42.0-52.0); Hemoglobin 13.5 g/dl (14.0-18.0); Imm Gran Abs Auto 0.06 X10*3/uL (0.00-0.03); Imm Gran Pct Auto 0.5 % (0.0-0.4); Lymphocytes Percent Auto 15.5 % (20-40); Mean Corpuscular HGB Conc 33.6 g/dl (31.0-36.0); Mean Corpuscular Hemoglobin 28.2 pg (27.0-33.0); Mean Corpuscular Volume 84.1 fL (80.0-98.0); Mean Platelet Volume 9.7 fL (9.4-12.4); Monocytes Absolute Auto 0.8 X10*3/uL (0.1-1.2); Monocytes Percent Auto 5.9 % (2-11); Neutrophils Absolute Auto 9.9 x10*3/uL (2.0-8.3); Neutrophils Percent Auto 77.3 % (45-73); Platelet Count 465 X10*3/uL (160-400); Red Blood Count 4.78 X10*6/uL (4.60-5.80); Red Cell Distribution Width 12.9 % (11.0-16.0); White Blood Count 12.8 X10*3/uL (4.8-10.8)
[2022-01-20 21:09] LABS: VBG Base Excess -1.8 mmol/L; VBG HCO3 22 mmol/L (22-26); VBG pCO2 38 mmHg; VBG pH 7.38 (7.32-7.43); VBG pO2 39 mmHg
[2022-01-20 21:10] LABS: Venous Blood Gas Refer to POC result
[2022-01-20] MEDS: ondansetron HCL 4 MG/2 ML VIAL IVPUSH (21:10)
[2022-01-20 21:13] VITALS: RESP 15
[2022-01-20] MEDS: Piperacillin Sodium/Tazobactam 3.375 GM in 0.9 % Sodium Chloride 50 ML IV (21:13)
[2022-01-20] MEDS: HYDROmorphone HCl 0.5 MG/0.5 ML SYRINGE IVPUSH ×2 (21:13→23:29)
[2022-01-20 21:18] LABS: Lactic Acid 1.7 mmol/L (0.5-2.0)
[2022-01-20 21:21] LABS: COVID-19 Test Negative (Negative); IDNOW Serial# 16C4AD1C
[2022-01-20 21:26] LABS: Alanine Aminotransferase 15 U/L (0-40); Alkaline Phosphatase 99 U/L (39-117); Anion Gap 17 (12-20); Aspartate Amino Transferase 12 U/L (5-37); Bilirubin Direct 0.2 mg/dL (0.0-0.5); Bilirubin Total 0.4 mg/dL (0.0-1.0); Blood Urea Nitrogen 14 mg/dL (9-16); Calcium 9.3 mg/dL (8.4-10.2); Carbon Dioxide 22 mmol/L (22-29); Chloride 101 mmol/L (96-108); Creatinine Clr Calc Pharmacy 78.3; Estimated Glomerular Filt Rate 58; Glucose Random 518 mg/dL (60-115); Magnesium 2.3 mg/dL (1.6-2.6); Potassium 4.5 mmol/L (3.3-5.1); Sodium 135 mmol/L (135-145); Total Protein 7.1 g/dL (6.5-8.0)
[2022-01-20 21:32] LABS: Influenza A Negative (Negative); Influenza B2 Negative (Negative)
[2022-01-20 21:32] LABS: Acetone, serum QL Negative (Negative)
[2022-01-20 22:12] VITALS: BP 144/82; PULSE 99; RESP 15; O2SAT 97
[2022-01-20 22:22] VITALS: BP 153/79; PULSE 97; RESP 14; O2SAT 99
[2022-01-20 23:18] LABS: Glucose, Whole Blood 370 mg/dL (60-115)
--- NOTE | 2022-01-20 23:43 | PM.IMHP ---
History of Present Illness Date of Service: 01/20/22 Chief Complaint: intractable N/V this is a 61-year-old male with past medical history of diabetes, hypertension, CAD status post CABG, and recently amputated right big toe secondary to osteomyelitis who presents to the hospital stating that ever since discharge on 01/11 E has had persistent nausea vomiting. Reports that he has constantly nauseous, has had multiple episodes of vomiting throughout the day. Patient reports the amount of nausea vomiting has caused him abdominal pain with every retching, he reports 1 episode of diarrhea daily. Reports that he was discharged on Augmentin but only took it for 2 days and has stopped taking it. He also noticed discharge from this suture area but reports no fever or chills. No urinary symptoms and no lower extremity edema. All other review of system is negative except as mentioned. Reports that the site of his amputation is significantly painful, 08/05, nonradiating. On arrival to the ED patient hemodynamically stable with no significant abnormal vitals except a slightly elevated blood pressure Labs are significant for WBC count of 12.8 which is higher than his most recent on 01/11, hemoglobin of 13.5 stable, ESR 65 which is improved from 01/11, glucose of 515, CRP of 0.67 which is also improved from 3.79 on the . Given his intractable nausea/vomiting as well as recently amputated right toe not tolerating p.o. antibiotics I anticipate the patient will need a medically necessary 2 night admission for management of intractable vomiting, IV antibiotics and further monitoring Review of Systems Review of Systems: Yes all other systems are reviewed and are negative FOR[facility]LY [facility] Medical History (Updated 01/21/22 @ 06:35 by Jacki Colin MD) Asthma Cellulitis Diabetes DMII (diabetes mellitus, type 2) FHx: bilateral hip replacements Hyperglycemia Hypertension Lower limb amputation, great toe Orthopedic hardware present Family History Other No family history of coronary artery disease Surgical History H/O bilateral hip replacements History of ankle surgery History of back surgery History of neck surgery S/P quadruple vessel bypass Social History Household Members: Family Housing: Apartment Do you presently have visiting nurse or other home services: Yes Alcohol intake: never Patient Tobacco Use Status: Former Tobacco user Tobacco use type: Cigarette Advance Directives: Yes Advance Directives on File: Yes Advance Directives Date on File: 01/04/22 service: Yes Current occupational status: retired Meds Allergies Allergy/AdvReac Type Severity Reaction Status Date / Time morphine AdvReac Intermediate Hallucinati Verified 07/06/21 06:43 ons Active Medications: Current Medications Sodium Chloride (Ns) 1,000 mls @ 999 mls/hr IV .Q1H1M ONE Stop: 01/21/22 00:37 Home Medications Medication Instructions Recorded Confirmed Last Taken Type ezetimibe 10 mg tablet 1 tab PO DAILY 01/03/22 01/21/22 01/02/22 History gabapentin 300 mg capsule 1 cap PO TID 01/03/22 01/21/22 01/02/22 History hydroxyzine HCl 10 mg tablet 2 tab PO QID PRN 01/03/22 01/21/22 Unknown History insulin glargine 100 unit/mL 50 unit SUBCUT DAILY@1200 01/03/22 01/21/22 01/02/22 History subcutaneous solution (Lantus U-100 Insulin) insulin glargine 100 unit/mL 100 unit SUBCUT BEDTIME 01/03/22 01/21/22 01/02/22 History subcutaneous solution (Lantus U-100 Insulin) insulin lispro 100 unit/mL 30 unit SUBCUT TIDAC 01/03/22 01/21/22 01/02/22 History subcutaneous solution isosorbide mononitrate 30 mg 1 tab PO QAM 01/03/22 01/21/22 01/02/22 History tablet,extended release 24 hr loratadine 10 mg tablet 1 tab PO DAILY 01/03/22 01/21/22 01/02/22 History losartan 25 mg tablet 1 tab PO DAILY 01/03/22 01/21/22 01/02/22 History meclizine 25 mg tablet 1 tab PO TID PRN 01/03/22 01/21/22 Unknown History metoprolol tartrate 25 mg tablet 1 tab PO BID 01/03/22 01/21/22 01/02/22 History montelukast 10 mg tablet 1 tab PO BEDTIME 01/03/22 01/21/22 01/02/22 History ondansetron HCl 4 mg tablet 1 tab PO TID PRN 01/03/22 01/21/22 Unknown History oxycodone 20 mg tablet,crush 1 tab PO BID 01/03/22 01/21/22 01/02/22 History resistant,extended release 12 hr (OxyContin) oxycodone 5 mg tablet 2 tab PO Q4H 01/03/22 01/21/22 01/02/22 History pantoprazole 40 mg tablet,delayed 1 tab PO BID@0630,1630 01/03/22 01/21/22 01/02/22 History release quetiapine 25 mg tablet 0.5 tab PO BEDTIME 01/03/22 01/21/22 01/02/22 History rosuvastatin 40 mg tablet 1 tab PO BEDTIME 01/03/22 01/21/22 01/02/22 History thiamine HCl (vitamin B1) 100 mg 1 tab PO DAILY 01/03/22 01/21/22 01/02/22 History tablet valacyclovir 1 gram tablet 2 tab PO BID 01/03/22 01/21/22 01/02/22 History venlafaxine 100 mg tablet 1 tab PO BID 01/03/22 01/21/22 01/02/22 History warfarin 5 mg tablet 2.5 mg PO MOWESA@1800 01/03/22 01/21/22 01/02/22 History warfarin 5 mg tablet 5 mg PO DAILY@1800 01/03/22 01/21/22 01/02/22 History zolpidem 10 mg tablet 1 tab PO BEDTIME PRN 01/03/22 01/21/22 Unknown History Physical Exam Vital Signs and Narrative: Vital Signs: Last Vital Signs Temp 98.1 F 01/20/22 19:48 Pulse 97 01/20/22 22:22 Resp 14 01/20/22 22:22 BP 153/79 H 01/20/22 22:22 Pulse Ox 99 01/20/22 22:22 BMI result Body Mass Index 41.0 Const: General: cooperative and no acute distress Orientation/consciousness: patient oriented x3 Eyes: General: appearance normal, both eyes and all related structures Pupils: Equal, round and reactive pupils present Resp: Effort & Inspection: normal respiratory effort Auscultation: clear to auscultation bilaterally Cardio: Rate: regular rate Rhythm: regular rhythm GI: Palpation (GI): Soft to palpation Auscultation: normal bowel sounds Skin: General skin exam: no rashes or lesions noted Neuro: General: patient oriented x3 Cranial nerves: Yes Equal, round and reactive pupils present Cognition (Neuro): normal cognition Extrem: Other: left big toe amputation, site appears clean, no erythema, no warmth, and no significant discharge. General: Yes no pedal edema Results Labs CBC and Chem 7: 01/20/22 20:57 01/20/22 20:57 Labs: Laboratory Results - last 24 hr 01/20/22 01/20/22 01/20/22 19:47 20:55 20:55 MCV MCH MCHC RDW Plt Count MPV Immature Gran % (Auto) Neut % (Auto) Lymph % (Auto) [place] % (Auto) Eos % (Auto) Baso % (Auto) Lymph # (Auto) [place] # (Auto) Eos # (Auto) Baso # (Auto) Abs Immat Gran (auto) Absolute Neuts (auto) Absolute Nucleated RBC Nucleated RBC % (auto) VBG pH VBG pCO2 VBG pO2 VBG HCO3 VBG O2 Saturation VBG Base Excess Anion Gap Estim Creat Clear Calc Estimated GFR POC Glucose 515 H* Random Glucose Lactic Acid Calcium Magnesium Total Bilirubin Direct Bilirubin AST ALT Alkaline Phosphatase Total Protein Albumin Acetone, Qual COVID-19 ([facility]CR[facility]) Negative COVID-19 Clin Com See Note Influenza Type A (MARIE) Negative Influenza Type B (MARIE) Negative Influenza A & B Note See Note 01/20/22 01/20/22 01/20/22 20:57 20:57 20:57 MCV 84.1 MCH 28.2 MCHC 33.6 RDW 12.9 Plt Count 465 H D MPV 9.7 Immature Gran % (Auto) 0.5 H Neut % (Auto) 77.3 H Lymph % (Auto) 15.5 L [place] % (Auto) 5.9 Eos % (Auto) 0.3 Baso % (Auto) 0.5 Lymph # (Auto) 2.0 [place] # (Auto) 0.8 Eos # (Auto) 0.0 Baso # (Auto) 0.1 Abs Immat Gran (auto) 0.06 H Absolute Neuts (auto) 9.9 H Absolute Nucleated RBC 0.000 Nucleated RBC % (auto) 0.0 VBG pH VBG pCO2 VBG pO2 VBG HCO3 VBG O2 Saturation VBG Base Excess Anion Gap 17 Estim Creat Clear Calc 78.3 Estimated GFR 58 POC Glucose Random Glucose 518 H* Lactic Acid 1.7 Calcium 9.3 D Magnesium 2.3 Total Bilirubin 0.4 Direct Bilirubin 0.2 AST 12 ALT 15 Alkaline Phosphatase 99 D Total Protein 7.1 D Albumin 4.0 D Acetone, Qual Negative COVID-19 ([facility]CR[facility]) COVID-19 Clin Com Influenza Type A (MARIE) Influenza Type B (MARIE) Influenza A & B Note 01/20/22 01/20/22 21:01 23:14 MCV MCH MCHC RDW Plt Count MPV Immature Gran % (Auto) Neut % (Auto) Lymph % (Auto) [place] % (Auto) Eos % (Auto) Baso % (Auto) Lymph # (Auto) [place] # (Auto) Eos # (Auto) Baso # (Auto) Abs Immat Gran (auto) Absolute Neuts (auto) Absolute Nucleated RBC Nucleated RBC % (auto) VBG pH 7.38 VBG pCO2 38 VBG pO2 39 VBG HCO3 22 VBG O2 Saturation 58.0 VBG Base Excess -1.8 Anion Gap Estim Creat Clear Calc Estimated GFR POC Glucose 370 H* Random Glucose Lactic Acid Calcium Magnesium Total Bilirubin Direct Bilirubin AST ALT Alkaline Phosphatase Total Protein Albumin Acetone, Qual COVID-19 ([facility]) COVID-19 Clin Com Influenza Type A (MARIE) Influenza Type B (MARIE) Influenza A & B Note Assessment and Plan (1) Intractable nausea and vomiting: Status: Acute (2) Osteomyelitis: Status: Acute (3) Amputation of left great toe: Status: Acute (4) Hyperglycemia due to diabetes mellitus: Status: Acute Plan 61-year-old male with recently amputated left great toe secondary to osteomyelitis presents to the hospital with complaints of intractable nausea vomiting # intractable nausea vomiting - possibly secondary to side effects of antibiotics, versus viral gastroenteritis - no evidence of dehydration on labs, patient had intractable nausea vomiting in the ED not significantly responding to IV Zofran - will treat with Compazine IV - IV fluids - monitor response # osteomyelitis with recently amputated left great toe - side of amputation appears clean, sutures appear intact, no significant erythema, discharge, or edema - patient reports significant tenderness - he was discharged on Augmentin 7 days but reports that he only took 2 days due to the significant nausea vomiting - given his intolerance to p.o. antibiotics, will switch him to IV antibiotics - patient cultures grew Gram-negative staff in the past - will place on Zosyn # hyperglycemia - reports better control at home - received insulin in the ED with improvement - no evidence of ketoacidosis - will start him on low-dose sliding scale insulin, continue his home insulin, # history of CAD/ hypertension - stable, no chest pain - continue metoprolol, Imdur, atorvastatin, losartan # subtherapeutic INR - continue warfarin, follow PT INR DVT prophylaxis: Warfarin Quality Stroke Does the patient have a stroke diagnosis?: No VTE Prior VTE?: No VTE Risk Level:: Medical - moderate - high VTE Device Contraindication: Treatment Not Indicated VTE Drug Contraindication: N/A - Med Ordered
[2022-01-20] MEDS: Insulin Lispro 100 UNIT/ML 3 ML VIAL 8 UNIT SUBCUT (23:46)
[2022-01-20 23:59] LABS: C Reactive Protein 0.67 mg/dL (< or = 0.50)
[2022-01-21] VITALS (8 sets, daily range): BP systolic 117–171; BP diastolic 52–91; PULSE 74–96; RESP 13–16; TEMP 36.1–36.7; O2SAT 95–99; BMI 40.3
[2022-01-21 00:04] LABS: Erythrocyte Sedimentation Rate 65 MM/HR (0-15)
[2022-01-21] MEDS: ondansetron HCL 4 MG/2 ML VIAL IVPUSH (00:27)
[2022-01-21] MEDS: 0.9 % Sodium Chloride Flush 3 ML SYRINGE IVFLUSH ×4 (00:28→20:52)
[2022-01-21 00:51] LABS: Glucose, Whole Blood 279 mg/dL (60-115)
[2022-01-21] MEDS: 0.9 % Sodium Chloride 1,000 ML 100 ML IVCONT ×3 (00:56→20:47)
[2022-01-21 02:31] LABS: INTERNATIONAL NORM RATIO 2.3 (0.9-1.1); Prothrombin Time 26.9 SEC (9.9-13.0)
--- NOTE | 2022-01-21 02:43 | PC.NURSE ---
pt asking for more pain medication, hospitalist messaged at [phone] asking for another order for pain medication. PRN tylenol order is in, although pt is refusing to take tylenol stating that it doesnt do anything, and that he probably cant swallow pills because he was nauseous . pt does not have nausea at this time, but believes the pills will make him nauseous . pt yelling out crying, pt reassurance ineffective. pt states that he is going to leave, If youre not going to medicated me, ill medicate myself at home pt reassured that this RN will reach out to the provider since there are no other PRN orders other than tylenol. Resting in bed at this time
[2022-01-21] MEDS: Piperacillin Sodium/Tazobactam 3.375 GM in 0.9 % Sodium Chloride 50 ML IV ×4 (03:04→20:49)
[2022-01-21] MEDS: Prochlorperazine Edisylate 10 MG/2 ML VIAL 5 MG IVPUSH (03:25)
[2022-01-21] MEDS: HYDROmorphone HCl 0.5 MG/0.5 ML SYRINGE IVPUSH ×2 (03:26→07:44)
[2022-01-21 06:33] LABS: Glucose, Whole Blood 243 mg/dL (60-115)
[2022-01-21 06:57] LABS: MANUAL DIFF FLAG NO
[2022-01-21 07:13] LABS: Anion Gap 14 (12-20); Basophils Absolute Auto 0.1 X10*3/uL (0.0-0.2); Basophils Percent Auto 0.7 % (0-2); Blood Urea Nitrogen 12 mg/dL (9-16); Carbon Dioxide 21 mmol/L (22-29); Chloride 111 mmol/L (96-108); Creatinine Clr Calc Pharmacy 102.8; Eosinophils Absolute Auto 0.1 X10*3/uL (0.0-0.4); Eosinophils Percent Auto 0.9 % (0-4); Estimated Glomerular Filt Rate > 60; Glucose Random 246 mg/dL (60-115); Hematocrit 40.6 % (42.0-52.0); Hemoglobin 13.1 g/dl (14.0-18.0); Imm Gran Abs Auto 0.06 X10*3/uL (0.00-0.03); Imm Gran Pct Auto 0.5 % (0.0-0.4); Lymphocytes Absolute Auto 2.9 X10*3/uL (1.2-4.9); Lymphocytes Percent Auto 24.6 % (20-40); Mean Corpuscular HGB Conc 32.3 g/dl (31.0-36.0); Mean Corpuscular Hemoglobin 28.1 pg (27.0-33.0); Mean Corpuscular Volume 86.9 fL (80.0-98.0); Monocytes Absolute Auto 0.9 X10*3/uL (0.1-1.2); Monocytes Percent Auto 7.3 % (2-11); Neutrophils Absolute Auto 7.7 x10*3/uL (2.0-8.3); Platelet Count 432 X10*3/uL (160-400); Red Blood Count 4.67 X10*6/uL (4.60-5.80); Red Cell Distribution Width 13.2 % (11.0-16.0); Sodium 142 mmol/L (135-145); White Blood Count 11.7 X10*3/uL (4.8-10.8)
[2022-01-21] MEDS: Ezetimibe 10 MG TABLET PO (09:49)
[2022-01-21] MEDS: Insulin Lispro 100 UNIT/ML 3 ML VIAL 30 UNIT SUBCUT ×2 (09:49→18:51)
[2022-01-21] MEDS: Gabapentin 300 MG CAPSULE PO ×3 (09:49→20:53)
[2022-01-21] MEDS: Isosorbide Mononitrate 30 MG TAB.ER.24H PO (09:50)
[2022-01-21] MEDS: Thiamine HCL 100 MG TABLET PO (09:50)
[2022-01-21] MEDS: valACYclovir HCL 1,000 MG TABLET 1000 MG PO ×2 (09:50→20:53)
[2022-01-21] MEDS: Loratadine 10 MG TABLET PO (09:50)
[2022-01-21] MEDS: Losartan Potassium 25 MG TABLET PO (09:50)
[2022-01-21] MEDS: Metoprolol Tartrate 25 MG TABLET PO ×2 (09:50→20:53)
[2022-01-21] MEDS: Venlafaxine HCL 25 MG TABLET 100 MG PO ×2 (09:53→20:52)
[2022-01-21] MEDS: oxyCODONE HCl ER 10 MG TAB.ER.12H 20 MG PO ×2 (10:13→20:53)
--- NOTE | 2022-01-21 10:16 | PHA.MEDREC ---
Pharmacy Consult ? Medication Reconciliation Pharmacy has completed the medication reconciliation. spoke with pt and confirmed doses of pain meds, warfarin and other meds
--- NOTE | 2022-01-21 10:24 | HO.PM.IMPN ---
Subjective Subjective Date of Service: 01/21/22 Interval History: being followed for nausea vomiting, decreased by mouth intake with persistent pain at left big toe amputation site, and elevated blood sugars and 500, patient continued to complain of left toe pain along with persistent nausea, denies fever chills, is chronically on OxyContin twice daily and oxycodone 10 mg q.4 hours, denies shortness of breath, no chest pain, no palpitations, no abdominal pain, no diarrhea Review of Systems Review of Systems: Yes all other systems are reviewed and are negative Physical Exam Vital Signs: Vital Signs: Last Vital Signs Temp 98.1 F 01/20/22 19:48 Pulse 90 01/21/22 06:31 Resp 14 01/21/22 07:44 BP 171/91 H 01/21/22 06:31 Pulse Ox 96 01/21/22 06:31 BMI result Body Mass Index 41.0 Const: Other: General awake alert, in no acute distress. Neck supple no JVD. CVS regular rate rhythm, Respiratory lungs clear to auscultation, no respiratory distress, no wheeze, no rhonchi. Gastrointestinal abdomen obese,soft, nontender, bowel sounds audible Extremities no edema/ left big toe amputation site no drainage noted, no erythema or warmth. Neuro nonfocal Skin no rash psych appropriate affect Objective Data Active Medications Acetaminophen (Acetaminophen 325 Mg Tablet) 650 mg PO Q6H PRN PRN Reason: Pain, Mild (Pain Scale 1-3) Dextrose (Dextrose 50 % 25 Gm/50 Ml Vial) 25 gm IVPUSH Q15M PRN; Protocol PRN Reason: per Hypoglycemia Standing Ord. Docusate Sodium (Docusate Sodium 100 Mg Capsule) 100 mg PO DAILY PRN PRN Reason: Constipation Ezetimibe (Ezetimibe 10 Mg Tablet) 10 mg PO DAILY [facility] Last Admin: 01/21/22 09:49 Dose: 10 mg Documented by: MAYE Gabapentin (Gabapentin 300 Mg Capsule) 300 mg PO TID [facility] Last Admin: 01/21/22 09:49 Dose: 300 mg Documented by: MAYE Glucose (Glucose Gel 15 Gm Gel..Gram.) 15 gm PO Q15M PRN; Protocol PRN Reason: per Hypoglycemia Standing Ord. Hydromorphone HCl (Hydromorphone Hcl 0.5 Mg/0.5 Ml Syringe) 0.5 mg IVPUSH Q4H PRN; Protocol PRN Reason: Pain, Severe (Pain Scale 7-10) Last Admin: 01/21/22 07:44 Dose: 0.5 mg Documented by: MAYE Hydroxyzine HCl (Hydroxyzine Hcl 10 Mg Tablet) 20 mg PO QID PRN PRN Reason: itch Piperacillin Sod/Tazobactam (Sod 3.375 gm/ Sodium Chloride) 50 mls @ 100 mls/hr IV Q6H [facility] Last Admin: 01/21/22 09:51 Dose: 100 mls/hr Documented by: MAYE Sodium Chloride (Ns) 1,000 mls @ 100 mls/hr IVCONT .Q10H [facility] Last Admin: 01/21/22 00:56 Dose: 100 mls/hr Documented by: ERI Insulin Glargine (Insulin Glargine,Hum.Rec.Anlog 100 Unit/Ml 10 Ml Vial) 50 unit SUBCUT DAILY@1200 [facility] Insulin Glargine (Insulin Glargine,Hum.Rec.Anlog 100 Unit/Ml 10 Ml Vial) 100 unit SUBCUT BEDTIME [facility] Insulin Human Lispro (Insulin Lispro 100 Unit/Ml 3 Ml Vial) 0 unit SUBCUT QIDACHS [facility]; Protocol Last Admin: 01/21/22 10:07 Dose: Not Given Documented by: KATY Non-Admin Reason: Physician Held Med Insulin Human Lispro (Insulin Lispro 100 Unit/Ml 3 Ml Vial) 30 unit SUBCUT TIDAC [facility] Last Admin: 01/21/22 09:49 Dose: 30 unit Documented by: MAYE Isosorbide Mononitrate (Isosorbide Mononitrate 30 Mg Tab.Er.24h) 30 mg PO DAILY [facility]; Protocol Last Admin: 01/21/22 09:50 Dose: 30 mg Documented by: MAYE Loratadine (Loratadine 10 Mg Tablet) 10 mg PO DAILY [facility] Last Admin: 01/21/22 09:50 Dose: 10 mg Documented by: MAYE Losartan Potassium (Losartan Potassium 25 Mg Tablet) 25 mg PO DAILY [facility]; Protocol Last Admin: 01/21/22 09:50 Dose: 25 mg Documented by: MAYE Meclizine HCl (Meclizine Hcl 25 Mg Tablet) 25 mg PO TID PRN PRN Reason: dizziness Metoprolol Tartrate (Metoprolol Tartrate 25 Mg Tablet) 25 mg PO BID [facility]; Protocol Last Admin: 01/21/22 09:50 Dose: 25 mg Documented by: MAYE Montelukast Sodium (Montelukast Sodium 10 Mg Tablet) 10 mg PO BEDTIME [facility] Non-Formulary Medication (Rosuvastatin) 1 tab PO BEDTIME [facility] Omeprazole (Omeprazole 20 Mg Capsule.Dr) 20 mg PO BID@0630,1630 [facility] Oxycodone HCl (Oxycodone Hcl Immed Release 5 Mg Tablet) 10 mg PO Q4H [facility] Oxycodone HCl (Oxycodone Hcl Er 10 Mg Tab.Er.12h) 20 mg PO BID [facility] Last Admin: 01/21/22 10:13 Dose: 20 mg Documented by: MAYE Comments: Pharmacy Consult (Consult Rx Vancomycin Dosing) 1 each MISCELLANE DAILY PRN PRN Reason: Consult order Prochlorperazine Edisylate (Prochlorperazine Edisylate 10 Mg/2 Ml Vial) 5 mg IVPUSH Q4H PRN PRN Reason: nausea vomiting Last Admin: 01/21/22 03:25 Dose: 5 mg Documented by: ERI Quetiapine Fumarate (Quetiapine Fumarate 25 Mg Tablet) 12.5 mg PO BEDTIME [facility] Sodium Chloride (0.9 % Sodium Chloride Flush 3 Ml Syringe) 3 ml IVFLUSH QSHIFT [facility] Last Admin: 01/21/22 09:51 Dose: 3 ml Documented by: MAYE Thiamine HCl (Thiamine Hcl 100 Mg Tablet) 100 mg PO DAILY [facility] Last Admin: 01/21/22 09:50 Dose: 100 mg Documented by: MAYE Valacyclovir HCl (Valacyclovir Hcl 1,000 Mg Tablet) 1,000 mg PO BID [facility] Last Admin: 01/21/22 09:50 Dose: 1,000 mg Documented by: MAYE Venlafaxine HCl (Venlafaxine Hcl 25 Mg Tablet) 100 mg PO BID [facility] Last Admin: 01/21/22 09:53 Dose: 100 mg Documented by: MAYE Warfarin Sodium (Warfarin Sodium 2.5 Mg Tablet) 2.5 mg PO MOWESA@1800 [facility] Warfarin Sodium (Warfarin Sodium 5 Mg Tablet) 5 mg PO DAILY@1800 [facility] Zolpidem Tartrate (Zolpidem Tartrate 5 Mg Tablet) 10 mg PO BEDTIME PRN PRN Reason: insomnia Labs CBC & Chem 7: 01/21/22 06:17 01/21/22 06:17 Labs: Laboratory Results - last 24 hr 01/20/22 01/20/22 01/20/22 19:47 20:55 20:55 MCV MCH MCHC RDW Plt Count MPV Immature Gran % (Auto) Neut % (Auto) Lymph % (Auto) Bremer % (Auto) Eos % (Auto) Baso % (Auto) Lymph # (Auto) Bremer # (Auto) Eos # (Auto) Baso # (Auto) Abs Immat Gran (auto) Absolute Neuts (auto) Absolute Nucleated RBC Nucleated RBC % (auto) ESR PT INR VBG pH VBG pCO2 VBG pO2 VBG HCO3 VBG O2 Saturation VBG Base Excess Anion Gap Estim Creat Clear Calc Estimated GFR POC Glucose 515 H* Random Glucose Lactic Acid Calcium Magnesium Total Bilirubin Direct Bilirubin AST ALT Alkaline Phosphatase C-Reactive Protein Total Protein Albumin Acetone, Qual COVID-19 (MACRINA) Negative COVID-19 Clin Com See Note Influenza Type A (MARIE) Negative Influenza Type B (MARIE) Negative Influenza A & B Note See Note 01/20/22 01/20/22 01/20/22 20:57 20:57 20:57 MCV 84.1 MCH 28.2 MCHC 33.6 RDW 12.9 Plt Count 465 H D MPV 9.7 Immature Gran % (Auto) 0.5 H Neut % (Auto) 77.3 H Lymph % (Auto) 15.5 L Bremer % (Auto) 5.9 Eos % (Auto) 0.3 Baso % (Auto) 0.5 Lymph # (Auto) 2.0 Bremer # (Auto) 0.8 Eos # (Auto) 0.0 Baso # (Auto) 0.1 Abs Immat Gran (auto) 0.06 H Absolute Neuts (auto) 9.9 H Absolute Nucleated RBC 0.000 Nucleated RBC % (auto) 0.0 ESR PT INR VBG pH VBG pCO2 VBG pO2 VBG HCO3 VBG O2 Saturation VBG Base Excess Anion Gap 17 Estim Creat Clear Calc 78.3 Estimated GFR 58 POC Glucose Random Glucose 518 H* Lactic Acid 1.7 Calcium 9.3 D Magnesium 2.3 Total Bilirubin 0.4 Direct Bilirubin 0.2 AST 12 ALT 15 Alkaline Phosphatase 99 D C-Reactive Protein 0.67 H Total Protein 7.1 D Albumin 4.0 D Acetone, Qual Negative COVID-19 ([facility]CR[facility]) COVID-19 Clin Com Influenza Type A (MARIE) Influenza Type B (MARIE) Influenza A & B Note 01/20/22 01/20/22 01/20/22 20:57 21:01 23:14 MCV MCH MCHC RDW Plt Count MPV Immature Gran % (Auto) Neut % (Auto) Lymph % (Auto) Bremer % (Auto) Eos % (Auto) Baso % (Auto) Lymph # (Auto) Bremer # (Auto) Eos # (Auto) Baso # (Auto) Abs Immat Gran (auto) Absolute Neuts (auto) Absolute Nucleated RBC Nucleated RBC % (auto) ESR 65 H PT INR VBG pH 7.38 VBG pCO2 38 VBG pO2 39 VBG HCO3 22 VBG O2 Saturation 58.0 VBG Base Excess -1.8 Anion Gap Estim Creat Clear Calc Estimated GFR POC Glucose 370 H* Random Glucose Lactic Acid Calcium Magnesium Total Bilirubin Direct Bilirubin AST ALT Alkaline Phosphatase C-Reactive Protein Total Protein Albumin Acetone, Qual COVID-19 ([facility]CR[facility]) COVID-19 Clin Com Influenza Type A (MARIE) Influenza Type B (MARIE) Influenza A & B Note 01/21/22 01/21/22 01/21/22 00:44 01:21 06:17 MCV 86.9 MCH 28.1 MCHC 32.3 RDW 13.2 Plt Count 432 H MPV 10.0 Immature Gran % (Auto) 0.5 H Neut % (Auto) 66.0 Lymph % (Auto) 24.6 Bremer % (Auto) 7.3 Eos % (Auto) 0.9 Baso % (Auto) 0.7 Lymph # (Auto) 2.9 Bremer # (Auto) 0.9 Eos # (Auto) 0.1 Baso # (Auto) 0.1 Abs Immat Gran (auto) 0.06 H Absolute Neuts (auto) 7.7 Absolute Nucleated RBC 0.000 Nucleated RBC % (auto) 0.0 ESR PT 26.9 H INR 2.3 H VBG pH VBG pCO2 VBG pO2 VBG HCO3 VBG O2 Saturation VBG Base Excess Anion Gap Estim Creat Clear Calc Estimated GFR POC Glucose 279 H Random Glucose Lactic Acid Calcium Magnesium Total Bilirubin Direct Bilirubin AST ALT Alkaline Phosphatase C-Reactive Protein Total Protein Albumin Acetone, Qual COVID-19 ([facility]CR[facility]) COVID-19 Clin Com Influenza Type A (MARIE) Influenza Type B (MARIE) Influenza A & B Note 01/21/22 01/21/22 06:17 06:29 MCV MCH MCHC RDW Plt Count MPV Immature Gran % (Auto) Neut % (Auto) Lymph % (Auto) Bremer % (Auto) Eos % (Auto) Baso % (Auto) Lymph # (Auto) Bremer # (Auto) Eos # (Auto) Baso # (Auto) Abs Immat Gran (auto) Absolute Neuts (auto) Absolute Nucleated RBC Nucleated RBC % (auto) ESR PT INR VBG pH VBG pCO2 VBG pO2 VBG HCO3 VBG O2 Saturation VBG Base Excess Anion Gap 14 Estim Creat Clear Calc 102.8 Estimated GFR > 60 POC Glucose 243 H Random Glucose 246 H D Lactic Acid Calcium 9.0 Magnesium Total Bilirubin Direct Bilirubin AST ALT Alkaline Phosphatase C-Reactive Protein Total Protein Albumin Acetone, Qual COVID-19 ([facility]CR[facility]) COVID-19 Clin Com Influenza Type A (MARIE) Influenza Type B (MARIE) Influenza A & B Note Assessment and Plan (1) Intractable nausea and vomiting: Status: Acute (2) Hyperglycemia due to diabetes mellitus: Status: Acute (3) CAD (coronary artery disease): Status: Acute (4) Amputation of left great toe: Status: Acute Plan 61-year-old male with recently amputated left great toe secondary to osteomyelitis presents to the hospital with complaints of intractable nausea vomiting #? intractable nausea vomiting -? possibly secondary to? side effects of narcotics,antibiotics, versus viral gastroenteritis -? continue antiemetic Compazine IV -? continue IV fluids, will avoid using additional narcotics,add prn toradol and switch to meloxicam,if able to tolerate by mouth. #? left big toe osteomyelitis with recently amputated left great toe -? side of amputation appears clean, sutures appear intact, no significant erythema, discharge, or edema -? patient reports significant tenderness - he was discharged on Augmentin 7 days but reports that? he only took 2 days due to the significant nausea vomiting -? given his intolerance to p.o. antibiotics, and with elevated WBC will give IV Zosyn, and await ID and surgery input # hyperglycemia with history of diabetes type 2 -? no evidence of ketoacidosis -? will resume home medication Lantus 50 units b.i.d. and pre meal insulin, will check hemoglobin A1c, place on insulin sliding scale #? history of CAD/ hypertension -? stable, no chest pain -? continue metoprolol, Imdur, atorvastatin, and losartan continue warfarin,INR 2.3 # neuropathy - continue gabapentin # mood disorder - continue venlafaxine, quetiapine, and hydroxyzine. # morbid obesity recommend weight reduction since contributing to hyperglycemia/ and cad. ?DVT prophylaxis:? Warfarin patient will need inpatient hospitalization due to persistent nausea vomiting and able related to take by mouth antibiotics. Quality Stroke Does the patient have a stroke diagnosis?: No VTE Prior VTE?: No VTE Risk Level:: Medical - moderate - high VTE Device Contraindication: Treatment Not Indicated VTE Drug Contraindication: N/A - Med Ordered
--- NOTE | 2022-01-21 11:40 | MHC.CM.PN ---
CM MET WITH PT AND WHO WAS AT BEDSIDE PT LIVES AT HOME AND IS INDEPENDENT WITH CARE AT BASELINE PT HAS NO DME AT HOME PT IS ACTIVE WITH [facility] SINCE LAST DC A COPY OF PTS HCP HAS BEEN REQUESTED, HE REPORTS HIS IS HIS AGENT PCP: RUSH MELENDEZ COVID-19 VACCINATION STATUS: PFIZER X 3 THEY REPORT WHEN PT LEFT [facility] A COUPLE WEEKS AGO, THEY THOUGHT HE WOULD BE ON IV ABX HOWEVER IT WAS CHANGED TO PO THEY REPORT THEY FEEL IT IS LIKELY HE WILL GO ON IV THIS DC. PTS REPORTS BEING COMFORTABLE WITH ASSISTING PT WITH ADMINISTRATION OF THESE MEDS REFERRAL SENT TO [facility] TO FOLLOW ADMISSION AND [facility] C[facility] IN CASE PT NEEDS IV MEDS AT DC PTS TO TRANSPORT
[2022-01-21 13:30] LABS: Glucose, Whole Blood 198 mg/dL (60-115)
[2022-01-21] MEDS: Insulin Glargine,Hum.rec.anlog 100 UNIT/ML 10 ML VIAL 50 UNIT SUBCUT ×2 (14:04→20:54)
[2022-01-21] MEDS: oxyCODONE HCl Immed Release 5 MG TABLET 10 MG PO ×3 (14:50→20:53)
--- NOTE | 2022-01-21 14:51 | W.PM.IDCN ---
History of Present Illness Data of Consult Service Date: 01/21/22 Requesting physician: Julia Rod Primary Care Provider: Unknown Physician HPI Reason for consult: nausea and vomiting,possible osteomyelitis He presents with nausea and vomiting and blood sugar in 500s. He had left diabetic foot infection and had left great toe removal on 01/07. He was discharged from hospital on 01/11 and supposed to take one week Augmentin but only took two days due to nausea and vomiting and high blood sugars. He has redness reported and pain and clear drainage from left foot wound. XRay shows possible metatarsal bone involvement with osteomyelitis. Review of Systems Review of Systems: Yes all other systems are reviewed and are negative [facility] Past Medical History Medical History Asthma Cellulitis Diabetes DMII (diabetes mellitus, type 2) FHx: bilateral hip replacements Hyperglycemia Hypertension Lower limb amputation, great toe Orthopedic hardware present Family History Family History Other No family history of coronary artery disease Family history: reviewed and not pertinent Surgical History Surgical History H/O bilateral hip replacements History of ankle surgery History of back surgery History of neck surgery S/P quadruple vessel bypass Social History Social History Household Members: Family Housing: Apartment Do you presently have visiting nurse or other home services: Yes Alcohol intake: never Patient Tobacco Use Status: Former Tobacco user Tobacco use type: Cigarette Advance Directives: Yes Advance Directives on File: Yes Advance Directives Date on File: 01/04/22 service: Yes Current occupational status: retired Meds Allergies Allergy/AdvReac Type Severity Reaction Status Date / Time morphine AdvReac Intermediate Hallucinati Verified 07/06/21 06:43 ons Active Medications: Current Medications Acetaminophen (Acetaminophen 325 Mg Tablet) 650 mg PO Q6H PRN PRN Reason: Pain, Mild (Pain Scale 1-3) Atorvastatin Calcium (Atorvastatin Calcium 80 Mg Tablet) 80 mg PO BEDTIME [facility] Dextrose (Dextrose 50 % 25 Gm/50 Ml Vial) 25 gm IVPUSH Q15M PRN; Protocol PRN Reason: per Hypoglycemia Standing Ord. Docusate Sodium (Docusate Sodium 100 Mg Capsule) 100 mg PO DAILY PRN PRN Reason: Constipation Ezetimibe (Ezetimibe 10 Mg Tablet) 10 mg PO DAILY [facility] Last Admin: 01/21/22 09:49 Dose: 10 mg Documented by: Gabapentin (Gabapentin 300 Mg Capsule) 300 mg PO TID [facility] Last Admin: 01/21/22 14:50 Dose: 300 mg Documented by: Glucose (Glucose Gel 15 Gm Gel..Gram.) 15 gm PO Q15M PRN; Protocol PRN Reason: per Hypoglycemia Standing Ord. Hydroxyzine HCl (Hydroxyzine Hcl 10 Mg Tablet) 20 mg PO QID PRN PRN Reason: itch Piperacillin Sod/Tazobactam (Sod 3.375 gm/ Sodium Chloride) 50 mls @ 100 mls/hr IV Q6H [facility] Last Admin: 01/21/22 14:51 Dose: 100 mls/hr Documented by: Sodium Chloride (Ns) 1,000 mls @ 100 mls/hr IVCONT .Q10H [facility] Last Admin: 01/21/22 11:29 Dose: 100 mls/hr Documented by: Insulin Glargine (Insulin Glargine,Hum.Rec.Anlog 100 Unit/Ml 10 Ml Vial) 50 unit SUBCUT BID@1200,2200 [facility] Last Admin: 01/21/22 14:04 Dose: 50 unit Documented by: Insulin Human Lispro (Insulin Lispro 100 Unit/Ml 3 Ml Vial) 0 unit SUBCUT QIDACHS [facility]; Protocol Last Admin: 01/21/22 13:46 Dose: Not Given Documented by: Insulin Human Lispro (Insulin Lispro 100 Unit/Ml 3 Ml Vial) 30 unit SUBCUT TIDAC [facility] Last Admin: 01/21/22 09:49 Dose: 30 unit Documented by: Isosorbide Mononitrate (Isosorbide Mononitrate 30 Mg Tab.Er.24h) 30 mg PO DAILY [facility]; Protocol Last Admin: 01/21/22 09:50 Dose: 30 mg Documented by: Ketorolac Tromethamine (Ketorolac Tromethamine 15 Mg/Ml Vial) 15 mg IVPUSH Q6H PRN PRN Reason: Pain, Moderate (Pain Scale 4-6 Loratadine (Loratadine 10 Mg Tablet) 10 mg PO DAILY [facility] Last Admin: 01/21/22 09:50 Dose: 10 mg Documented by: Losartan Potassium (Losartan Potassium 25 Mg Tablet) 25 mg PO DAILY [facility]; Protocol Last Admin: 01/21/22 09:50 Dose: 25 mg Documented by: Meclizine HCl (Meclizine Hcl 25 Mg Tablet) 25 mg PO TID PRN PRN Reason: dizziness Metoprolol Tartrate (Metoprolol Tartrate 25 Mg Tablet) 25 mg PO BID [facility]; Protocol Last Admin: 01/21/22 09:50 Dose: 25 mg Documented by: Montelukast Sodium (Montelukast Sodium 10 Mg Tablet) 10 mg PO BEDTIME [facility] Omeprazole (Omeprazole 20 Mg Capsule.Dr) 20 mg PO BID@0630,1630 [facility] Oxycodone HCl (Oxycodone Hcl Immed Release 5 Mg Tablet) 10 mg PO Q4H [facility] Last Admin: 01/21/22 14:50 Dose: 10 mg Documented by: Oxycodone HCl (Oxycodone Hcl Er 10 Mg Tab.Er.12h) 20 mg PO BID [facility] Last Admin: 01/21/22 10:13 Dose: 20 mg Documented by: Prochlorperazine Edisylate (Prochlorperazine Edisylate 10 Mg/2 Ml Vial) 5 mg IVPUSH Q4H PRN PRN Reason: nausea vomiting Last Admin: 01/21/22 03:25 Dose: 5 mg Documented by: Quetiapine Fumarate (Quetiapine Fumarate 25 Mg Tablet) 12.5 mg PO BEDTIME [facility] Sodium Chloride (0.9 % Sodium Chloride Flush 3 Ml Syringe) 3 ml IVFLUSH QSHIFT [facility] Last Admin: 01/21/22 09:51 Dose: 3 ml Documented by: Thiamine HCl (Thiamine Hcl 100 Mg Tablet) 100 mg PO DAILY [facility] Last Admin: 01/21/22 09:50 Dose: 100 mg Documented by: Valacyclovir HCl (Valacyclovir Hcl 1,000 Mg Tablet) 1,000 mg PO BID [facility] Last Admin: 01/21/22 09:50 Dose: 1,000 mg Documented by: Venlafaxine HCl (Venlafaxine Hcl 25 Mg Tablet) 100 mg PO BID [facility] Last Admin: 01/21/22 09:53 Dose: 100 mg Documented by: Warfarin Sodium (Warfarin Sodium 2.5 Mg Tablet) 2.5 mg PO MOWESA@1800 [facility] Warfarin Sodium (Warfarin Sodium 5 Mg Tablet) 5 mg PO DAILY@1800 [facility] Zolpidem Tartrate (Zolpidem Tartrate 5 Mg Tablet) 10 mg PO BEDTIME PRN PRN Reason: insomnia Home Medications Medication Instructions Recorded Confirmed Last Taken Type ezetimibe 10 mg tablet 1 tab PO DAILY 01/03/22 01/21/22 01/02/22 History gabapentin 300 mg capsule 1 cap PO TID 01/03/22 01/21/22 01/02/22 History hydroxyzine HCl 10 mg tablet 2 tab PO QID PRN 01/03/22 01/21/22 Unknown History insulin glargine 100 unit/mL 50 unit SUBCUT BID@01/03/22 01/21/22 01/02/22 History subcutaneous solution (Lantus U-100 Insulin) insulin lispro 100 unit/mL 30 unit SUBCUT TIDAC 01/03/22 01/21/22 01/02/22 History subcutaneous solution isosorbide mononitrate 30 mg 1 tab PO QAM 01/03/22 01/21/22 01/02/22 History tablet,extended release 24 hr loratadine 10 mg tablet 1 tab PO DAILY 01/03/22 01/21/22 01/02/22 History losartan 25 mg tablet 1 tab PO DAILY 01/03/22 01/21/22 01/02/22 History meclizine 25 mg tablet 1 tab PO TID PRN 01/03/22 01/21/22 Unknown History metoprolol tartrate 25 mg tablet 1 tab PO BID 01/03/22 01/21/22 01/02/22 History montelukast 10 mg tablet 1 tab PO BEDTIME 01/03/22 01/21/22 01/02/22 History ondansetron HCl 4 mg tablet 1 tab PO TID PRN 01/03/22 01/21/22 Unknown History oxycodone 20 mg tablet,crush 1 tab PO BID 01/03/22 01/21/22 01/02/22 History resistant,extended release 12 hr (OxyContin) oxycodone 5 mg tablet 2 tab PO Q4H 01/03/22 01/21/22 01/02/22 History pantoprazole 40 mg tablet,delayed 1 tab PO BID@0630,1630 01/03/22 01/21/2222 History release quetiapine 25 mg tablet 0.5 tab PO BEDTIME 01/03/22 01/21/22 01/02/22 History rosuvastatin 40 mg tablet 1 tab PO BEDTIME 01/03/22 01/21/22 01/02/22 History thiamine HCl (vitamin B1) 100 mg 1 tab PO DAILY 01/03/22 01/21/22 01/02/22 History tablet valacyclovir 1 gram tablet 2 tab PO BID 01/03/22 01/21/22 01/02/22 History venlafaxine 100 mg tablet 1 tab PO BID 01/03/22 01/21/22 01/02/22 History warfarin 5 mg tablet 2.5 mg PO MOWESA@1800 01/03/22 01/21/22 01/02/22 History warfarin 5 mg tablet 5 mg PO DAILY@1800 01/03/22 01/21/22 01/02/22 History zolpidem 10 mg tablet 1 tab PO BEDTIME PRN 01/03/22 01/21/22 Unknown History Physical Exam Vital Signs: Vital Signs: Last Vital Signs Temp 98.1 F 01/20/22 19:48 Pulse 96 01/21/22 14:07 Resp 16 01/21/22 14:07 BP 165/88 H 01/21/22 14:07 Pulse Ox 96 01/21/22 06:31 BMI result Body Mass Index 41.0 Const: General: tired appearing HEENT: Head: Yes normal to inspection Mouth: Normal oral and palatal mucosa present Resp: Effort & Inspection: normal respiratory effort Cardio: Rate: regular rate Rhythm: regular rhythm GI: Palpation (GI): Soft to palpation and nontender Extrem: Other: fairly clear area around sutures,no erythema Results Labs CBC & Chem 7: 01/21/22 06:17 01/21/22 06:17 Labs: Short CBC 01/20/22 01/21/22 Range/Units 20:57 06:17 WBC 12.8 H 11.7 H (4.8-10.8) X10*3/uL Hgb 13.5 L D 13.1 L (14.0-18.0) g/dl Hct 40.2 L D 40.6 L (42.0-52.0) % Plt Count 465 H D 432 H (160-400) X10*3/uL BMP 01/20/22 01/21/22 20:57 06:17 Sodium 135 142 Potassium 4.5 4.0 Chloride 101 111 H Carbon Dioxide 22 21 L BUN 14 12 Creatinine 1.26 0.96 Calcium 9.3 D 9.0 Liver Function 01/20/22 Range/Units 20:57 Total Bilirubin 0.4 (0.0-1.0) mg/dL Direct Bilirubin 0.2 (0.0-0.5) mg/dL AST 12 (5-37) U/L ALT 15 (0-40) U/L Alkaline Phosphatase 99 D (39-117) U/L Albumin 4.0 D (3.5-5.0) g/dL Assessment and Plan (1) Amputation of left great toe: Status: Acute (2) Intractable nausea and vomiting: Status: Acute (3) Hyperglycemia due to diabetes mellitus: Status: Acute (4) Cellulitis in diabetic foot: Status: Acute There is concern over ongoing infection in area postop The foot and sutures look unremarkable but there is drainage and he reports area hot and red earlier Nausea and vomiting may be due to uncontrolled hyperglycemia due to ongoing infection. Plan Check MRI foot If area appears osteomyelitic bone metatarsal needs six week IV therapy or amputation. Continue Vancomycin and Zosyn
[2022-01-21] MEDS: Omeprazole 20 MG CAPSULE.DR PO (15:58)
[2022-01-21 17:34] LABS: Glucose, Whole Blood 287 mg/dL (60-115)
--- NOTE | 2022-01-21 18:05 | PC.NURSE ---
mod loose bm x 1 per pt.
[2022-01-21] MEDS: Warfarin Sodium 2.5 MG TABLET PO (20:52)
[2022-01-21 20:53] LABS: Glucose, Whole Blood 211 mg/dL (60-115)
[2022-01-21] MEDS: Montelukast Sodium 10 MG TABLET PO (20:53)
[2022-01-21] MEDS: Warfarin Sodium 5 MG TABLET PO (20:53)
[2022-01-21] MEDS: Atorvastatin Calcium 80 MG TABLET PO (20:53)
[2022-01-21] MEDS: QUEtiapine Fumarate 25 MG TABLET 12.5 MG PO (20:54)
[2022-01-21] MEDS: Zolpidem Tartrate 5 MG TABLET 10 MG PO (20:54)
[2022-01-22] MEDS: oxyCODONE HCl Immed Release 5 MG TABLET 10 MG PO ×6 (01:52→22:32)
[2022-01-22] MEDS: Piperacillin Sodium/Tazobactam 3.375 GM in 0.9 % Sodium Chloride 50 ML IV ×4 (01:53→20:40)
[2022-01-22 03:22] VITALS: BP 139/69; PULSE 56; RESP 14; TEMP 36; O2SAT 99
[2022-01-22] MEDS: 0.9 % Sodium Chloride 1,000 ML 100 ML IVCONT (04:55)
[2022-01-22] MEDS: Omeprazole 20 MG CAPSULE.DR PO ×2 (04:55→15:52)
[2022-01-22 06:15] LABS: Prothrombin Time 35.3 SEC (9.9-13.0)
[2022-01-22 06:21] LABS: Estimated Average Glucose 278 mg/dL; Hemoglobin A1c % 11.3 %
[2022-01-22 07:49] LABS: Glucose, Whole Blood 165 mg/dL (60-115)
[2022-01-22 08:00] VITALS: BP 132/73; PULSE 73; RESP 18; TEMP 36.6; O2SAT 98
--- NOTE | 2022-01-22 08:38 | PM.CNGS ---
History of Present Illness Consult details Consult date: 01/22/22 Requesting physician: Julia Rod Narrative: 61-year-old male patient with a previous history of osteomyelitis involving the left great toe, status post amputation of left great toe on 01/07/2022 returning to the emergency department with increased pain and elevated glucose levels. He is admitted to the hospitalist service for IV antibiotics. Surgical consultation requested for management of the amputation site. He reports some discharge and pain at the amputation site. Review of Systems Constitutional: Constitutional: Denies chills, Denies fever(s), Denies headache(s) and Denies poor appetite ENT: Denies dizziness and Denies headache(s) Cardiovascular: Cardiovascular: Reports as per HPI, Denies chest pain, Denies rapid heart rate, Denies palpitations, Denies dyspnea on exertion, Denies orthopnea and Denies slow heart rate Respiratory: Respiratory: Denies chest congestion, Denies cough, Denies pain on inspiration, Denies dyspnea on exertion and Denies wheezing Gastrointestinal: Gastrointestinal: Denies abdominal pain, Denies bloating, Denies change in stool character, Denies constipation, Denies diarrhea, Denies nausea, Denies vomiting and Denies hematemesis Musculoskeletal: Musculoskeletal: Reports as per HPI, Denies back pain, Reports deformity, Reports arthralgias, Reports joint swelling and Reports numbness Integumentary/Breasts: Skin/Breast: Reports as per HPI, Reports change in pigmentation, Reports erythema and Denies rash Neurologic: Denies dizziness, Denies headache(s) and Reports numbness Psychiatric: Psychiatric: Denies anxiety and Denies depression Endocrine: Endocrine: Denies palpitations Hematologic/Lymphatic: Hematologic/Lymphatic: Denies easy bleeding, Denies easy bruising and Denies lymphadenopathy Allergic/Immunologic: Allergic/Immunologic: Denies wheezing PMFSH Past Medical History Medical History Asthma Cellulitis Diabetes DMII (diabetes mellitus, type 2) FHx: bilateral hip replacements Hyperglycemia Hypertension Lower limb amputation, great toe Orthopedic hardware present Family History Family History Other No family history of coronary artery disease Family history: reviewed and not pertinent Surgical History Surgical History H/O bilateral hip replacements History of ankle surgery History of back surgery History of neck surgery S/P quadruple vessel bypass Social History Social History Household Members: Family Housing: Apartment Do you presently have visiting nurse or other home services: Yes Alcohol intake: never Patient Tobacco Use Status: Former Tobacco user Tobacco use type: Cigarette Advance Directives Date on File: 01/04/22 service: Yes Current occupational status: retired Meds Allergies Allergy/AdvReac Type Severity Reaction Status Date / Time morphine AdvReac Intermediate Hallucinati Verified 07/06/21 06:43 ons Active Medications: Current Medications Acetaminophen (Acetaminophen 325 Mg Tablet) 650 mg PO Q6H PRN PRN Reason: Pain, Mild (Pain Scale 1-3) Atorvastatin Calcium (Atorvastatin Calcium 80 Mg Tablet) 80 mg PO BEDTIME [facility] Last Admin: 01/21/22 20:53 Dose: 80 mg Documented by: Dextrose (Dextrose 50 % 25 Gm/50 Ml Vial) 25 gm IVPUSH Q15M PRN; Protocol PRN Reason: per Hypoglycemia Standing Ord. Docusate Sodium (Docusate Sodium 100 Mg Capsule) 100 mg PO DAILY PRN PRN Reason: Constipation Ezetimibe (Ezetimibe 10 Mg Tablet) 10 mg PO DAILY [facility] Last Admin: 01/21/22 09:49 Dose: 10 mg Documented by: Gabapentin (Gabapentin 300 Mg Capsule) 300 mg PO TID [facility] Last Admin: 01/21/22 20:53 Dose: 300 mg Documented by: Glucose (Glucose Gel 15 Gm Gel..Gram.) 15 gm PO Q15M PRN; Protocol PRN Reason: per Hypoglycemia Standing Ord. Hydroxyzine HCl (Hydroxyzine Hcl 10 Mg Tablet) 20 mg PO QID PRN PRN Reason: itch Piperacillin Sod/Tazobactam (Sod 3.375 gm/ Sodium Chloride) 50 mls @ 100 mls/hr IV Q6H [facility] Last Infusion: 01/22/22 02:27 Dose: Infused Documented by: Sodium Chloride (Ns) 1,000 mls @ 100 mls/hr IVCONT .Q10H [facility] Last Admin: 01/22/22 04:55 Dose: 100 mls/hr Documented by: Insulin Glargine (Insulin Glargine,Hum.Rec.Anlog 100 Unit/Ml 10 Ml Vial) 50 unit SUBCUT BID@1200,2200 [facility] Last Admin: 01/21/22 20:54 Dose: 50 unit Documented by: Insulin Human Lispro (Insulin Lispro 100 Unit/Ml 3 Ml Vial) 30 unit SUBCUT TIDAC [facility] Last Admin: 01/21/22 18:51 Dose: 30 unit Documented by: Isosorbide Mononitrate (Isosorbide Mononitrate 30 Mg Tab.Er.24h) 30 mg PO DAILY [facility]; Protocol Last Admin: 01/21/22 09:50 Dose: 30 mg Documented by: Ketorolac Tromethamine (Ketorolac Tromethamine 15 Mg/Ml Vial) 15 mg IVPUSH Q6H PRN PRN Reason: Pain, Moderate (Pain Scale 4-6 Loratadine (Loratadine 10 Mg Tablet) 10 mg PO DAILY [facility] Last Admin: 01/21/22 09:50 Dose: 10 mg Documented by: Losartan Potassium (Losartan Potassium 25 Mg Tablet) 25 mg PO DAILY [facility]; Protocol Last Admin: 01/21/22 09:50 Dose: 25 mg Documented by: Meclizine HCl (Meclizine Hcl 25 Mg Tablet) 25 mg PO TID PRN PRN Reason: dizziness Metoprolol Tartrate (Metoprolol Tartrate 25 Mg Tablet) 25 mg PO BID [facility]; Protocol Last Admin: 01/21/22 20:53 Dose: 25 mg Documented by: Montelukast Sodium (Montelukast Sodium 10 Mg Tablet) 10 mg PO BEDTIME [facility] Last Admin: 01/21/22 20:53 Dose: 10 mg Documented by: Omeprazole (Omeprazole 20 Mg Capsule.Dr) 20 mg PO BID@0630,1630 [facility] Last Admin: 01/22/22 04:55 Dose: 20 mg Documented by: Oxycodone HCl (Oxycodone Hcl Immed Release 5 Mg Tablet) 10 mg PO Q4H [facility] Last Admin: 01/22/22 05:01 Dose: 10 mg Documented by: Oxycodone HCl (Oxycodone Hcl Er 10 Mg Tab.Er.12h) 20 mg PO BID [facility] Last Admin: 01/21/22 20:53 Dose: 20 mg Documented by: Prochlorperazine Edisylate (Prochlorperazine Edisylate 10 Mg/2 Ml Vial) 5 mg IVPUSH Q4H PRN PRN Reason: nausea vomiting Last Admin: 01/21/22 03:25 Dose: 5 mg Documented by: Quetiapine Fumarate (Quetiapine Fumarate 25 Mg Tablet) 12.5 mg PO BEDTIME [facility] Last Admin: 01/21/22 20:54 Dose: 12.5 mg Documented by: Sodium Chloride (0.9 % Sodium Chloride Flush 3 Ml Syringe) 3 ml IVFLUSH QSHIFT [facility] Last Admin: 01/21/22 20:52 Dose: 3 ml Documented by: Thiamine HCl (Thiamine Hcl 100 Mg Tablet) 100 mg PO DAILY [facility] Last Admin: 01/21/22 09:50 Dose: 100 mg Documented by: Valacyclovir HCl (Valacyclovir Hcl 1,000 Mg Tablet) 1,000 mg PO BID [facility] Last Admin: 01/21/22 20:53 Dose: 1,000 mg Documented by: Venlafaxine HCl (Venlafaxine Hcl 25 Mg Tablet) 100 mg PO BID [facility] Last Admin: 01/21/22 20:52 Dose: 100 mg Documented by: Warfarin Sodium (Warfarin Sodium 2.5 Mg Tablet) 2.5 mg PO MOWESA@1800 [facility] Last Admin: 01/21/22 20:52 Dose: 2.5 mg Documented by: Warfarin Sodium (Warfarin Sodium 5 Mg Tablet) 5 mg PO DAILY@1800 [facility] Last Admin: 01/21/22 20:53 Dose: 5 mg Documented by: Zolpidem Tartrate (Zolpidem Tartrate 5 Mg Tablet) 10 mg PO BEDTIME PRN PRN Reason: insomnia Last Admin: 01/21/22 20:54 Dose: 10 mg Documented by: Home Medications Medication Instructions Recorded Confirmed Last Taken Type ezetimibe 10 mg tablet 1 tab PO DAILY 01/03/22 01/21/22 01/02/22 History gabapentin 300 mg capsule 1 cap PO TID 01/03/22 01/21/22 01/02/22 History hydroxyzine HCl 10 mg tablet 2 tab PO QID PRN 01/03/22 01/21/22 Unknown History insulin glargine 100 unit/mL 50 unit SUBCUT BID@01/03/22 01/21/22 01/02/22 History subcutaneous solution (Lantus U-100 Insulin) insulin lispro 100 unit/mL 30 unit SUBCUT TIDAC 01/03/22 01/21/22 01/02/22 History subcutaneous solution isosorbide mononitrate 30 mg 1 tab PO QAM 01/03/22 01/21/22 01/02/22 History tablet,extended release 24 hr loratadine 10 mg tablet 1 tab PO DAILY 01/03/22 01/21/22 01/02/22 History losartan 25 mg tablet 1 tab PO DAILY 01/03/22 01/21/22 01/02/22 History meclizine 25 mg tablet 1 tab PO TID PRN 01/03/22 01/21/22 Unknown History metoprolol tartrate 25 mg tablet 1 tab PO BID 01/03/22 01/21/22 01/02/22 History montelukast 10 mg tablet 1 tab PO BEDTIME 01/03/22 01/21/22 01/02/22 History ondansetron HCl 4 mg tablet 1 tab PO TID PRN 01/03/22 01/21/22 Unknown History oxycodone 20 mg tablet,crush 1 tab PO BID 01/03/22 01/21/22 01/02/22 History resistant,extended release 12 hr (OxyContin) oxycodone 5 mg tablet 2 tab PO Q4H 01/03/22 01/21/22 01/02/22 History pantoprazole 40 mg tablet,delayed 1 tab PO BID@0630,1630 01/03/22 01/21/22 01/02/22 History release quetiapine 25 mg tablet 0.5 tab PO BEDTIME 01/03/22 01/21/22 01/02/22 History rosuvastatin 40 mg tablet 1 tab PO BEDTIME 01/03/22 01/21/22 01/02/22 History thiamine HCl (vitamin B1) 100 mg 1 tab PO DAILY 01/03/22 01/21/22 01/02/22 History tablet valacyclovir 1 gram tablet 2 tab PO BID 01/03/22 01/21/22 01/02/22 History venlafaxine 100 mg tablet 1 tab PO BID 01/03/22 01/21/22 01/02/22 History warfarin 5 mg tablet 2.5 mg PO MOWESA@1800 01/03/22 01/21/22 01/02/22 History warfarin 5 mg tablet 5 mg PO DAILY@1800 01/03/22 01/21/22 01/02/22 History zolpidem 10 mg tablet 1 tab PO BEDTIME PRN 01/03/22 01/21/22 Unknown History Physical Exam Vital Signs: Vital Signs: Last Vital Signs Temp 97.8 F 01/22/22 08:00 Pulse 73 01/22/22 08:00 Resp 18 01/22/22 08:00 BP 132/73 01/22/22 08:00 Pulse Ox 98 01/22/22 08:00 BMI result Body Mass Index 40.3 Const: General: healthy appearing and well developed Nutritional Appearance: well nourished Orientation/consciousness: patient oriented x3 Limitations: no limitations HEENT: Head: Yes normocephalic and Yes atraumatic Ears: hearing grossly normal bilaterally Resp: Effort & Inspection: normal respiratory effort, no audible wheezes, no cough and no respiratory distress Skin: General skin exam: no rashes or lesions noted Neuro: General: patient oriented x3 Extrem: Other: Status post amputation of left great toe. Wounds are clean, dry, and intact without redness or fluctuance. No evidence of underlying abscess. There is tenderness to palpation consistent with recent surgery. Results Labs Result diagrams: 01/21/22 06:17 01/21/22 06:17 Labs: Abnormal lab results 01/21/22 01/21/22 01/21/22 Range/Units 13:26 17:25 20:35 PT (9.9-13.0) SEC INR (0.9-1.1) POC Glucose 198 H 287 H 211 H (60-115) mg/dL 01/22/22 01/22/22 Range/Units 05:42 07:33 PT 35.3 H (9.9-13.0) SEC INR 3.0 H (0.9-1.1) POC Glucose 165 H (60-115) mg/dL All other labs normal. Assessment and Plan (1) Amputation of left great toe: Status: Acute Plan 61-year-old male patient status post amputation of left great toe. Wounds were examined today and found to be clean and intact without redness or discharge. There is no evidence of underlying abscess. Agree with antibiotics for possible osteomyelitis although review of the x-ray does reveal findings consistent with recent amputation with normal appearing proximal metatarsal. Will follow during his hospitalization. Procedures Date of Service Date of Service: 01/22/22
[2022-01-22] MEDS: valACYclovir HCL 1,000 MG TABLET 1000 MG PO ×2 (08:40→20:46)
[2022-01-22] MEDS: Losartan Potassium 25 MG TABLET PO (08:41)
[2022-01-22] MEDS: Isosorbide Mononitrate 30 MG TAB.ER.24H PO (08:41)
[2022-01-22] MEDS: Venlafaxine HCL 25 MG TABLET 100 MG PO ×2 (08:41→20:46)
[2022-01-22] MEDS: Loratadine 10 MG TABLET PO (08:42)
[2022-01-22] MEDS: Thiamine HCL 100 MG TABLET PO (08:42)
[2022-01-22] MEDS: oxyCODONE HCl ER 10 MG TAB.ER.12H 20 MG PO ×2 (08:42→20:47)
[2022-01-22] MEDS: Gabapentin 300 MG CAPSULE PO ×3 (08:42→20:47)
[2022-01-22] MEDS: Ezetimibe 10 MG TABLET PO (08:42)
[2022-01-22] MEDS: Insulin Lispro 100 UNIT/ML 3 ML VIAL 30 UNIT SUBCUT (08:42)
[2022-01-22] MEDS: Metoprolol Tartrate 25 MG TABLET PO ×2 (08:42→20:48)
[2022-01-22] MEDS: Ketorolac Tromethamine 15 MG/ML VIAL IVPUSH (10:50)
[2022-01-22 12:00] VITALS: BP 124/69; PULSE 78; TEMP 36.4; O2SAT 99
[2022-01-22 12:26] LABS: Glucose, Whole Blood 68 mg/dL (60-115)
--- NOTE | 2022-01-22 13:09 | P.PNIM_ITS ---
Subjective Subjective Date of Service: 01/22/22 Interval History: being followed for left big toe pain at site of amputation, denies worsening of pain, no fevers no chills no other acute overnight issues, tolerating diet Physical Exam Vital Signs: Vital Signs: Last Vital Signs Temp 97.8 F 01/22/22 08:00 Pulse 73 01/22/22 08:00 Resp 18 01/22/22 08:00 BP 132/73 01/22/22 08:00 Pulse Ox 98 01/22/22 08:00 BMI result Body Mass Index 40.3 Const: Other: General? awake alert, in no acute distress.? Neck supple no JVD. CVS? regular rate rhythm, Respiratory lungs clear to auscultation, no respiratory distress, no wheeze, no rhonchi. Gastrointestinal abdomen? obese,soft, nontender, bowel sounds audible Extremities no edema/ left big toe amputation site no drainage noted, no eryth monique or warmth. Neuro nonfocal Skin no rash psych appropriate affect Objective Data Active Medications Acetaminophen (Acetaminophen 325 Mg Tablet) 650 mg PO Q6H PRN PRN Reason: Pain, Mild (Pain Scale 1-3) Atorvastatin Calcium (Atorvastatin Calcium 80 Mg Tablet) 80 mg PO BEDTIME [facility] Last Admin: 01/21/22 20:53 Dose: 80 mg Documented by: EWA Dextrose (Dextrose 50 % 25 Gm/50 Ml Vial) 25 gm IVPUSH Q15M PRN; Protocol PRN Reason: per Hypoglycemia Standing Ord. Docusate Sodium (Docusate Sodium 100 Mg Capsule) 100 mg PO DAILY PRN PRN Reason: Constipation Ezetimibe (Ezetimibe 10 Mg Tablet) 10 mg PO DAILY [facility] Last Admin: 01/22/22 08:42 Dose: 10 mg Documented by: RODERICK Gabapentin (Gabapentin 300 Mg Capsule) 300 mg PO TID [facility] Last Admin: 01/22/22 08:42 Dose: 300 mg Documented by: RODERICK Glucose (Glucose Gel 15 Gm Gel..Gram.) 15 gm PO Q15M PRN; Protocol PRN Reason: per Hypoglycemia Standing Ord. Hydroxyzine HCl (Hydroxyzine Hcl 10 Mg Tablet) 20 mg PO QID PRN PRN Reason: itch Piperacillin Sod/Tazobactam (Sod 3.375 gm/ Sodium Chloride) 50 mls @ 100 mls/hr IV Q6H [facility] Last Infusion: 01/22/22 10:37 Dose: 0 mls/hr Documented by: RODERICK Sodium Chloride (Ns) 1,000 mls @ 100 mls/hr IVCONT .Q10H [facility] Last Admin: 01/22/22 04:55 Dose: 100 mls/hr Documented by: EWA Vancomycin HCl 1,000 mg/ (Sodium Chloride) 270 mls @ 270 mls/hr IV Q12H [facility] Insulin Glargine (Insulin Glargine,Hum.Rec.Anlog 100 Unit/Ml 10 Ml Vial) 50 unit SUBCUT BID@1200,2200 [facility] Last Admin: 01/22/22 12:32 Dose: Not Given Documented by: RODERICK Non-Admin Reason: Patient Refused Insulin Human Lispro (Insulin Lispro 100 Unit/Ml 3 Ml Vial) 30 unit SUBCUT TIDAC [facility] Last Admin: 01/22/22 12:31 Dose: Not Given Documented by: RODERICK Non-Admin Reason: Patient Refused Isosorbide Mononitrate (Isosorbide Mononitrate 30 Mg Tab.Er.24h) 30 mg PO DAILY [facility]; Protocol Last Admin: 01/22/22 08:41 Dose: 30 mg Documented by: RODERICK Ketorolac Tromethamine (Ketorolac Tromethamine 15 Mg/Ml Vial) 15 mg IVPUSH Q6H PRN PRN Reason: Pain, Moderate (Pain Scale 4-6 Last Admin: 01/22/22 10:50 Dose: 15 mg Documented by: RODERICK Loratadine (Loratadine 10 Mg Tablet) 10 mg PO DAILY [facility] Last Admin: 01/22/22 08:42 Dose: 10 mg Documented by: RODERICK Losartan Potassium (Losartan Potassium 25 Mg Tablet) 25 mg PO DAILY [facility]; Protocol Last Admin: 01/22/22 08:41 Dose: 25 mg Documented by: RODERICK Meclizine HCl (Meclizine Hcl 25 Mg Tablet) 25 mg PO TID PRN PRN Reason: dizziness Metoprolol Tartrate (Metoprolol Tartrate 25 Mg Tablet) 25 mg PO BID [facility]; Protocol Last Admin: 01/22/22 08:42 Dose: 25 mg Documented by: RODERICK Montelukast Sodium (Montelukast Sodium 10 Mg Tablet) 10 mg PO BEDTIME [facility] Last Admin: 01/21/22 20:53 Dose: 10 mg Documented by: EWA Omeprazole (Omeprazole 20 Mg Capsule.) 20 mg PO BID@0630,1630 [facility] Last Admin: 01/22/22 04:55 Dose: 20 mg Documented by: EWA Oxycodone HCl (Oxycodone Hcl Immed Release 5 Mg Tablet) 10 mg PO Q4H [facility] Last Admin: 01/22/22 12:30 Dose: 10 mg Documented by: RODERICK Oxycodone HCl (Oxycodone Hcl Er 10 Mg Tab.Er.12h) 20 mg PO BID [facility] Last Admin: 01/22/22 08:42 Dose: 20 mg Documented by: RODERICK Pharmacy Consult (Consult Rx Vancomycin Dosing) 1 each MISCELLANE DAILY PRN PRN Reason: Consult order Prochlorperazine Edisylate (Prochlorperazine Edisylate 10 Mg/2 Ml Vial) 5 mg IVPUSH Q4H PRN PRN Reason: nausea vomiting Last Admin: 01/21/22 03:25 Dose: 5 mg Documented by: ERI Quetiapine Fumarate (Quetiapine Fumarate 25 Mg Tablet) 12.5 mg PO BEDTIME [facility] Last Admin: 01/21/22 20:54 Dose: 12.5 mg Documented by: EWA Sodium Chloride (0.9 % Sodium Chloride Flush 3 Ml Syringe) 3 ml IVFLUSH QSHIFT [facility] Last Admin: 01/22/22 08:48 Dose: Not Given Documented by: RODERICK Non-Admin Reason: IV Running Thiamine HCl (Thiamine Hcl 100 Mg Tablet) 100 mg PO DAILY [facility] Last Admin: 01/22/22 08:42 Dose: 100 mg Documented by: RODERICK Valacyclovir HCl (Valacyclovir Hcl 1,000 Mg Tablet) 1,000 mg PO BID [facility] Last Admin: 01/22/22 08:40 Dose: 1,000 mg Documented by: RODERICK Venlafaxine HCl (Venlafaxine Hcl 25 Mg Tablet) 100 mg PO BID [facility] Last Admin: 01/22/22 08:41 Dose: 100 mg Documented by: HO.KODOSOB Warfarin Sodium (Warfarin Sodium 2.5 Mg Tablet) 2.5 mg PO MOWESA@1800 [facility] Last Admin: 01/21/22 20:52 Dose: 2.5 mg Documented by: EWA Warfarin Sodium (Warfarin Sodium 5 Mg Tablet) 5 mg PO DAILY@1800 [facility] Last Admin: 01/21/22 20:53 Dose: 5 mg Documented by: EWA Zolpidem Tartrate (Zolpidem Tartrate 5 Mg Tablet) 10 mg PO BEDTIME PRN PRN Reason: insomnia Last Admin: 01/21/22 20:54 Dose: 10 mg Documented by: EWA Labs CBC & Chem 7: 01/21/22 06:17 01/21/22 06:17 Labs: Laboratory Results - last 24 hr 01/21/22 01/21/22 01/21/22 13:26 17:25 20:35 PT INR POC Glucose 198 H 287 H 211 H Estimat Average Glucose Hemoglobin A1c % 01/22/22 01/22/22 01/22/22 05:42 05:42 07:33 PT 35.3 H INR 3.0 H POC Glucose 165 H Estimat Average Glucose 278 Hemoglobin A1c % 11.3 01/22/22 12:21 PT INR POC Glucose 68 Estimat Average Glucose Hemoglobin A1c % Microbiology Microbiology Results: Microbiology 01/20/22 20:57 Blood Culture - Preliminary Blood - Venous No growth after 24 hours. 01/20/22 20:55 Blood Culture - Preliminary Blood - Venous No growth after 24 hours. Assessment and Plan (1) Intractable nausea and vomiting: Status: Acute (2) Hyperglycemia due to diabetes mellitus: Status: Acute (3) CAD (coronary artery disease): Status: Acute (4) Amputation of left great toe: Status: Acute Plan 61-year-old male with recently amputated left great toe secondary to osteomyelitis presents to the hospital with complaints of intractable nausea vomiting #? intractable nausea vomiting -? possibly secondary to? side effects of narcotics,antibiotics, versus viral gastroenteritis -? All symptoms resolved, will DC IV antibiotics #? left big toe osteomyelitis with recently amputated left great toe -? side of amputation appears clean, sutures appear intact, no significant erythema, discharge, or edema, patient was discharged on 7 days of antibiotic but only took for 2 days due to nausea vomiting since x-ray left foot was questionable for osteomyelitis and MRI foot was obtained that showed 3.2 cm fluid collection question seroma versus abscess and also adjust in edema and enhancement within remaining 1st metatarsal concerning for acute osteomyelitis case discussed with Dr. Raines will continue IV Zosyn and vancomycin she recommend 6 weeks of IV antibiotics or amputation, will discuss with General surgery # hyperglycemia with history of diabetes type 2 -? blood sugars improved continue home medication Lantus 50 units b.i.d. and pre meal insulin, hemoglobin A1c, 11.3. #? history of CAD/ hypertension -? stable, no chest pain -? continue metoprolol, Imdur, atorvastatin, and losartan on Coumadin,INR 3 will hold Coumadin today # neuropathy - continue gabapentin # mood disorder - continue venlafaxine, quetiapine, and hydroxyzine. # morbid obesity recommend weight reduction since contributing to hyperglycemia/ and cad. ?DVT prophylaxis:? Warfarin patient will need inpatient hospitalization due to abscess/ seroma at site of prior amputation will need surgical evaluation and possible amputation versus PICC line placement Quality Stroke Does the patient have a stroke diagnosis?: No VTE Prior VTE?: No VTE Risk Level:: Medical - moderate - high VTE Device Contraindication: Treatment Not Indicated VTE Drug Contraindication: N/A - Med Ordered
[2022-01-22] MEDS: vancomycin HCL 1,250 MG in 0.9 % Sodium Chloride 250 ML 166.67 MG IV (14:15)
--- NOTE | 2022-01-22 14:36 | PM.IDPN ---
Subjective Subjective Date of Service: 01/22/22 Critical Care Time (minutes): 15 Comment: he has still discomfort foot Objective Data Labs CBC & Chem 7: 01/21/22 06:17 01/21/22 06:17 Labs: Laboratory Results - last 24 hr 01/21/22 01/21/22 01/22/22 17:25 20:35 05:42 PT 35.3 H INR 3.0 H POC Glucose 287 H 211 H Estimat Average Glucose Hemoglobin A1c % 01/22/22 01/22/22 01/22/22 05:42 07:33 12:21 PT INR POC Glucose 165 H 68 Estimat Average Glucose 278 Hemoglobin A1c % 11.3 Microbiology Microbiology Results: Microbiology 01/20/22 20:57 Blood - Venous Blood Culture - Preliminary No growth after 24 hours. 01/20/22 20:55 Blood - Venous Blood Culture - Preliminary No growth after 24 hours. Physical Exam Vital Signs: Vital Signs: Last Vital Signs Temp 97.5 F 01/22/22 12:00 Pulse 78 01/22/22 12:00 Resp 18 01/22/22 08:00 BP 124/69 01/22/22 12:00 Pulse Ox 99 01/22/22 12:00 BMI result Body Mass Index 40.3 Const: General: cooperative Resp: Effort & Inspection: normal respiratory effort Cardio: Rate: regular rate Rhythm: regular rhythm GI: Palpation (GI): Soft to palpation and nontender Extrem: Other: no change in foot Assessment and Plan Assessment and plan (1) Amputation of left great toe: Problem details: He has abscess and concern over metatarsal osteomyelitis There is no MRSA seen Status: Acute Assessment and Plan: Would give IV Ertapenem six weeks. Drain area foot if able. (2) CAD (coronary artery disease): Status: Acute (3) Diabetic osteomyelitis: Status: Acute Time Spent With Patient Time: Total time spent is greater than 50% in coordination of care (as documented) at patient's floor/unit and/or counseling patient:
[2022-01-22] MEDS: 0.9 % Sodium Chloride Flush 3 ML SYRINGE IVFLUSH (15:53)
[2022-01-22 16:00] VITALS: BP 123/61; PULSE 69; RESP 17; TEMP 36.2; O2SAT 98
[2022-01-22 16:22] LABS: Glucose, Whole Blood 114 mg/dL (60-115)
[2022-01-22 19:18] VITALS: BP 141/80; PULSE 73; RESP 17; TEMP 36.5; O2SAT 99
[2022-01-22 19:44] LABS: Glucose, Whole Blood 188 mg/dL (60-115)
[2022-01-22] MEDS: Montelukast Sodium 10 MG TABLET PO (20:46)
[2022-01-22] MEDS: Atorvastatin Calcium 80 MG TABLET PO (20:46)
[2022-01-22] MEDS: QUEtiapine Fumarate 25 MG TABLET 12.5 MG PO (20:48)
[2022-01-22] MEDS: Zolpidem Tartrate 5 MG TABLET 10 MG PO (22:32)
[2022-01-22] MEDS: Insulin Glargine,Hum.rec.anlog 100 UNIT/ML 10 ML VIAL 50 UNIT SUBCUT (22:34)
[2022-01-22 23:42] VITALS: BP 162/77; PULSE 73; RESP 14; TEMP 36.1; O2SAT 99
[2022-01-23] MEDS: 0.9 % Sodium Chloride Flush 3 ML SYRINGE IVFLUSH ×3 (01:10→16:54)
[2022-01-23] MEDS: Prochlorperazine Edisylate 10 MG/2 ML VIAL 5 MG IVPUSH (01:10)
[2022-01-23] MEDS: vancomycin HCL 1,250 MG in 0.9 % Sodium Chloride 250 ML 166.67 MG IV (01:11)
[2022-01-23] MEDS: oxyCODONE HCl Immed Release 5 MG TABLET 10 MG PO ×6 (02:14→21:32)
[2022-01-23] MEDS: Piperacillin Sodium/Tazobactam 3.375 GM in 0.9 % Sodium Chloride 50 ML IV (02:54)
[2022-01-23 03:22] VITALS: BP 133/72; PULSE 71; RESP 14; TEMP 36.4; O2SAT 97
[2022-01-23] MEDS: Omeprazole 20 MG CAPSULE.DR PO ×2 (05:43→16:53)
[2022-01-23 06:14] LABS: INTERNATIONAL NORM RATIO 3.2 (0.9-1.1); Prothrombin Time 36.9 SEC (9.9-13.0)
[2022-01-23 06:17] LABS: Anion Gap 12 (12-20); Blood Urea Nitrogen 11 mg/dL (9-16); Carbon Dioxide 23 mmol/L (22-29); Chloride 107 mmol/L (96-108); Creatinine Clr Calc Pharmacy 84.2; Estimated Glomerular Filt Rate > 60; Glucose Random 298 mg/dL (60-115); Potassium 3.9 mmol/L (3.3-5.1); Sodium 138 mmol/L (135-145)
[2022-01-23 07:18] VITALS: BP 162/77; PULSE 80; RESP 18; TEMP 36.1; O2SAT 97
[2022-01-23 07:26] LABS: Glucose, Whole Blood 242 mg/dL (60-115)
[2022-01-23] MEDS: Insulin Lispro 100 UNIT/ML 3 ML VIAL 30 UNIT SUBCUT (07:47)
[2022-01-23] MEDS: Ezetimibe 10 MG TABLET PO (09:21)
[2022-01-23] MEDS: valACYclovir HCL 1,000 MG TABLET 1000 MG PO ×2 (09:21→21:33)
[2022-01-23] MEDS: Losartan Potassium 25 MG TABLET PO (09:21)
[2022-01-23] MEDS: Gabapentin 300 MG CAPSULE PO ×3 (09:24→21:32)
[2022-01-23] MEDS: Thiamine HCL 100 MG TABLET PO (09:25)
[2022-01-23] MEDS: Metoprolol Tartrate 25 MG TABLET PO ×2 (09:25→21:33)
[2022-01-23] MEDS: Isosorbide Mononitrate 30 MG TAB.ER.24H PO (09:25)
[2022-01-23] MEDS: oxyCODONE HCl ER 10 MG TAB.ER.12H 20 MG PO ×2 (09:26→21:32)
[2022-01-23] MEDS: Loratadine 10 MG TABLET PO (09:26)
--- NOTE | 2022-01-23 11:24 | PC.NURSE ---
Wound assessment completed. Patient has a left great toe amp site with sutures intact slight redness and scant drainage. Silver alginate applied covered with non woven gauze and roll gauze. No other skin issues noted at this time.
[2022-01-23 11:30] VITALS: BP 119/64; PULSE 80; RESP 18; TEMP 36; O2SAT 98
[2022-01-23 11:37] LABS: Glucose, Whole Blood 118 mg/dL (60-115)
[2022-01-23] MEDS: Venlafaxine HCL 25 MG TABLET 100 MG PO ×2 (11:50→21:32)
[2022-01-23] MEDS: Insulin Glargine,Hum.rec.anlog 100 UNIT/ML 10 ML VIAL 50 UNIT SUBCUT ×2 (12:00→21:33)
--- NOTE | 2022-01-23 12:43 | HO.PM.IMPN ---
Subjective Subjective Date of Service: 01/23/22 Interval History: Complaining of persistent left foot discomfort not worsening, denies fever chills, no nausea, no vomiting, tolerating diet requesting for suture removal. Review of Systems Review of Systems: Yes all other systems are reviewed and are negative Physical Exam Vital Signs: Vital Signs: Last Vital Signs Temp 96.8 F 01/23/22 11:30 Pulse 80 01/23/22 11:30 Resp 18 01/23/22 11:30 BP 119/64 01/23/22 11:30 Pulse Ox 98 01/23/22 11:30 BMI result Body Mass Index 40.3 Const: Other: General? awake alert, in no acute distress.? Neck supple no JVD. CVS? regular rate rhythm, Respiratory lungs clear to auscultation, no respiratory distress, no wheeze, no rhonchi. Gastrointestinal abdomen? obese,soft, nontender, bowel sounds audible Extremities no edema/ left big toe amputation site no drainage noted, no erythema or warmth, mild tenderness to touch. Neuro nonfocal Skin no rash psych appropriate affect Objective Data Active Medications Acetaminophen (Acetaminophen 325 Mg Tablet) 650 mg PO Q6H PRN PRN Reason: Pain, Mild (Pain Scale 1-3) Atorvastatin Calcium (Atorvastatin Calcium 80 Mg Tablet) 80 mg PO BEDTIME [facility] Last Admin: 01/22/22 20:46 Dose: 80 mg Documented by: LAURA Dextrose (Dextrose 50 % 25 Gm/50 Ml Vial) 25 gm IVPUSH Q15M PRN; Protocol PRN Reason: per Hypoglycemia Standing Ord. Docusate Sodium (Docusate Sodium 100 Mg Capsule) 100 mg PO DAILY PRN PRN Reason: Constipation Ezetimibe (Ezetimibe 10 Mg Tablet) 10 mg PO DAILY [facility] Last Admin: 01/23/22 09:21 Dose: 10 mg Documented by: CHANDAN Gabapentin (Gabapentin 300 Mg Capsule) 300 mg PO TID [facility] Last Admin: 01/23/22 09:24 Dose: 300 mg Documented by: CHANDAN Glucose (Glucose Gel 15 Gm Gel..Gram.) 15 gm PO Q15M PRN; Protocol PRN Reason: per Hypoglycemia Standing Ord. Hydroxyzine HCl (Hydroxyzine Hcl 10 Mg Tablet) 20 mg PO QID PRN PRN Reason: itch Meropenem 1 gm/ Sodium (Chloride) 100 mls @ 200 mls/hr IV Q8H [facility] Last Infusion: 01/23/22 10:53 Dose: 200 mls/hr Documented by: CHANDAN Insulin Glargine (Insulin Glargine,Hum.Rec.Anlog 100 Unit/Ml 10 Ml Vial) 50 unit SUBCUT BID@1200,2200 [facility] Last Admin: 01/23/22 12:00 Dose: 50 unit Documented by: CHANDAN Insulin Human Lispro (Insulin Lispro 100 Unit/Ml 3 Ml Vial) 30 unit SUBCUT TIDAC [facility] Last Admin: 01/23/22 11:53 Dose: Not Given Documented by: CHANDAN Non-Admin Reason: patient refused/blood sugar 118 Isosorbide Mononitrate (Isosorbide Mononitrate 30 Mg Tab.Er.24h) 30 mg PO DAILY [facility]; Protocol Last Admin: 01/23/22 09:25 Dose: 30 mg Documented by: CHANDAN Comments: 145/70BP, 83P Loratadine (Loratadine 10 Mg Tablet) 10 mg PO DAILY [facility] Last Admin: 01/23/22 09:26 Dose: 10 mg Documented by: CHANDAN Losartan Potassium (Losartan Potassium 25 Mg Tablet) 25 mg PO DAILY [facility]; Protocol Last Admin: 01/23/22 09:21 Dose: 25 mg Documented by: CHANDAN Comments: 145/70 BP , 83 P Meclizine HCl (Meclizine Hcl 25 Mg Tablet) 25 mg PO TID PRN PRN Reason: dizziness Metoprolol Tartrate (Metoprolol Tartrate 25 Mg Tablet) 25 mg PO BID [facility]; Protocol Last Admin: 01/23/22 09:25 Dose: 25 mg Documented by: HCANDAN Comments: 145/70BP, 83P Montelukast Sodium (Montelukast Sodium 10 Mg Tablet) 10 mg PO BEDTIME [facility] Last Admin: 01/22/22 20:46 Dose: 10 mg Documented by: LAURA Omeprazole (Omeprazole 20 Mg Capsule.) 20 mg PO BID@0630,1630 [facility] Last Admin: 01/23/22 05:43 Dose: 20 mg Documented by: LAZARA Oxycodone HCl (Oxycodone Hcl Immed Release 5 Mg Tablet) 10 mg PO Q4H [facility] Last Admin: 01/23/22 10:45 Dose: 10 mg Documented by: CHANDAN Oxycodone HCl (Oxycodone Hcl Er 10 Mg Tab.Er.12h) 20 mg PO BID [facility] Last Admin: 01/23/22 09:26 Dose: 20 mg Documented by: CHANDAN Pharmacy Consult (Consult Rx Vancomycin Dosing) 1 each MISCELLANE DAILY PRN PRN Reason: Consult order Prochlorperazine Edisylate (Prochlorperazine Edisylate 10 Mg/2 Ml Vial) 5 mg IVPUSH Q4H PRN PRN Reason: nausea vomiting Last Admin: 01/23/22 01:10 Dose: 5 mg Documented by: LAZARA Quetiapine Fumarate (Quetiapine Fumarate 25 Mg Tablet) 12.5 mg PO BEDTIME [facility] Last Admin: 01/22/22 20:48 Dose: 12.5 mg Documented by: LAURA Sodium Chloride (0.9 % Sodium Chloride Flush 3 Ml Syringe) 3 ml IVFLUSH QSHIFT [facility] Last Admin: 01/23/22 09:27 Dose: 3 ml Documented by: CHANDAN Thiamine HCl (Thiamine Hcl 100 Mg Tablet) 100 mg PO DAILY [facility] Last Admin: 01/23/22 09:25 Dose: 100 mg Documented by: CHANDAN Valacyclovir HCl (Valacyclovir Hcl 1,000 Mg Tablet) 1,000 mg PO BID [facility] Last Admin: 01/23/22 09:21 Dose: 1,000 mg Documented by: CHANDAN Venlafaxine HCl (Venlafaxine Hcl 25 Mg Tablet) 100 mg PO BID [facility] Last Admin: 01/23/22 11:50 Dose: 100 mg Documented by: CHANDAN Comments: given once available on unit Warfarin Sodium (Warfarin Sodium 2.5 Mg Tablet) 2.5 mg PO MOWESA@1800 [facility] Last Admin: 01/21/22 20:52 Dose: 2.5 mg Documented by: EWA Zolpidem Tartrate (Zolpidem Tartrate 5 Mg Tablet) 10 mg PO BEDTIME PRN PRN Reason: insomnia Last Admin: 01/22/22 22:32 Dose: 10 mg Documented by: LAURA Labs CBC & Chem 7: 01/21/22 06:17 01/23/22 05:27 Labs: Laboratory Results - last 24 hr 01/22/22 01/22/22 01/23/22 16:11 19:19 05:27 PT 36.9 H INR 3.2 H Anion Gap Estim Creat Clear Calc Estimated GFR POC Glucose 114 188 H Random Glucose Calcium 01/23/22 01/23/22 01/23/22 05:27 07:17 11:29 PT INR Anion Gap 12 Estim Creat Clear Calc 84.2 Estimated GFR > 60 POC Glucose 242 H 118 H Random Glucose 298 H Calcium 9.0 Microbiology Microbiology Results: Microbiology 01/20/22 20:57 Blood Culture - Preliminary Blood - Venous No growth after 48 hours. 01/20/22 20:55 Blood Culture - Preliminary Blood - Venous No growth after 48 hours. Assessment and Plan (1) Intractable nausea and vomiting: Status: Acute (2) Hyperglycemia due to diabetes mellitus: Status: Acute (3) CAD (coronary artery disease): Status: Acute (4) Amputation of left great toe: Status: Acute Plan 61-year-old male with recently amputated left great toe secondary to osteomyelitis presents to the hospital with complaints of intractable nausea vomiting #? intractable nausea vomiting -? resolved tolerating diet, symptoms possibly secondary to? side effects of narcotics,antibiotics, versus viral gastroenteritis, tolerating diet #? left big toe osteomyelitis with recently amputated left great toe -? site of amputation appears clean, sutures appear intact, no significant erythema, discharge, or edema, patient was discharged on 7 days of antibiotic but only took for 2 days due to nausea vomiting since x-ray left foot was questionable for osteomyelitis and MRI foot was obtained that showed 3.2 cm fluid collection question seroma versus abscess and also adjust in edema and enhancement within remaining 1st metatarsal concerning for acute osteomyelitis case discussed with Dr. Raines she recommend IV ertapenem for 6 week, case discussed with Dr. Hinton he feels it is postsurgical seroma giving the appearance of skin will place PICC line blood cultures x2 negative,arrange for outpatient IV antibiotic # hyperglycemia with history of diabetes type 2 -? blood sugars improved continue home medication Lantus 50 units b.i.d. and pre meal insulin, hemoglobin A1c, 11.3, strongly recommend to lose weight and follow diabetic diet. #? history of CAD/ hypertension -? stable, no chest pain -? continue metoprolol, Imdur, atorvastatin, and losartan on Coumadin,INR 3.2 will hold Coumadin today and follow INR tomorrow morning adjust dose of Coumadin upon discharge # neuropathy - continue gabapentin # mood disorder - continue venlafaxine, quetiapine, and hydroxyzine. # morbid obesity recommend weight reduction since contributing to hyperglycemia/ and cad. ?DVT prophylaxis:? Warfarin patient will need inpatient hospitalization due to abscess/ seroma at site of prior amputation will need PICC line placement for prolonged course of IV antibiotics Quality Stroke Does the patient have a stroke diagnosis?: No VTE Prior VTE?: No VTE Risk Level:: Medical - moderate - high VTE Device Contraindication: Treatment Not Indicated VTE Drug Contraindication: N/A - Med Ordered
--- NOTE | 2022-01-23 14:49 | MHC.CM.PN ---
CURRENT PLAN IS HOME WITH 6 WEEKS IV ERTAPENEM QD. AWAITING PICC PLACEMENT [facility]
[2022-01-23 15:23] VITALS: BP 95/62; PULSE 77; RESP 18; TEMP 36.9; O2SAT 99
[2022-01-23 16:06] LABS: Glucose, Whole Blood 83 mg/dL (60-115)
[2022-01-23 19:28] VITALS: BP 117/74; PULSE 83; RESP 18; TEMP 36.4; O2SAT 100
[2022-01-23 20:13] LABS: Glucose, Whole Blood 110 mg/dL (60-115)
[2022-01-23] MEDS: Montelukast Sodium 10 MG TABLET PO (21:32)
[2022-01-23] MEDS: Atorvastatin Calcium 80 MG TABLET PO (21:32)
[2022-01-23] MEDS: QUEtiapine Fumarate 25 MG TABLET 12.5 MG PO (21:32)
[2022-01-23] MEDS: Zolpidem Tartrate 5 MG TABLET 10 MG PO (21:38)
[2022-01-23 23:39] VITALS: BP 115/74; PULSE 53; RESP 14; TEMP 36.4; O2SAT 99
[2022-01-24] MEDS: 0.9 % Sodium Chloride Flush 3 ML SYRINGE IVFLUSH ×2 (01:33→12:56)
[2022-01-24] MEDS: oxyCODONE HCl Immed Release 5 MG TABLET 10 MG PO ×4 (01:33→13:05)
[2022-01-24 03:55] VITALS: BP 101/65; PULSE 69; RESP 16; TEMP 36.4; O2SAT 99
[2022-01-24] MEDS: Omeprazole 20 MG CAPSULE.DR PO (05:37)
[2022-01-24 06:00] LABS: MANUAL DIFF FLAG NO
[2022-01-24 06:16] LABS: Basophils Absolute Auto 0.1 X10*3/uL (0.0-0.2); Basophils Percent Auto 0.6 % (0-2); Eosinophils Absolute Auto 0.2 X10*3/uL (0.0-0.4); Eosinophils Percent Auto 2.7 % (0-4); Hemoglobin 11.2 g/dl (14.0-18.0); Imm Gran Abs Auto 0.03 X10*3/uL (0.00-0.03); Imm Gran Pct Auto 0.4 % (0.0-0.4); Lymphocytes Absolute Auto 2.5 X10*3/uL (1.2-4.9); Lymphocytes Percent Auto 30.6 % (20-40); Mean Corpuscular HGB Conc 32.9 g/dl (31.0-36.0); Mean Corpuscular Hemoglobin 28.3 pg (27.0-33.0); Mean Corpuscular Volume 85.9 fL (80.0-98.0); Mean Platelet Volume 10.2 fL (9.4-12.4); Monocytes Absolute Auto 0.8 X10*3/uL (0.1-1.2); Monocytes Percent Auto 9.3 % (2-11); Neutrophils Absolute Auto 4.6 x10*3/uL (2.0-8.3); Neutrophils Percent Auto 56.4 % (45-73); Platelet Count 335 X10*3/uL (160-400); Red Blood Count 3.96 X10*6/uL (4.60-5.80); Red Cell Distribution Width 13.6 % (11.0-16.0); White Blood Count 8.1 X10*3/uL (4.8-10.8)
[2022-01-24 06:25] LABS: INTERNATIONAL NORM RATIO 1.8 (0.9-1.1); Prothrombin Time 21.1 SEC (9.9-13.0)
[2022-01-24 07:24] LABS: Glucose, Whole Blood 85 mg/dL (60-115)
[2022-01-24 07:30] VITALS: BP 131/75; PULSE 74; RESP 18; TEMP 36.4; O2SAT 100
[2022-01-24] MEDS: valACYclovir HCL 1,000 MG TABLET 1000 MG PO (08:33)
[2022-01-24] MEDS: oxyCODONE HCl ER 10 MG TAB.ER.12H 20 MG PO (08:34)
[2022-01-24] MEDS: Thiamine HCL 100 MG TABLET PO (08:34)
[2022-01-24] MEDS: Isosorbide Mononitrate 30 MG TAB.ER.24H PO (08:34)
[2022-01-24] MEDS: Venlafaxine HCL 25 MG TABLET 100 MG PO (08:34)
[2022-01-24] MEDS: Ezetimibe 10 MG TABLET PO (08:35)
[2022-01-24] MEDS: Metoprolol Tartrate 25 MG TABLET PO (08:35)
[2022-01-24] MEDS: Loratadine 10 MG TABLET PO (08:36)
[2022-01-24] MEDS: Losartan Potassium 25 MG TABLET PO (08:36)
[2022-01-24] MEDS: Gabapentin 300 MG CAPSULE PO ×2 (08:36→15:38)
--- NOTE | 2022-01-24 11:55 | P.PICC_ITS ---
PICC Line Insertion NPICC Diagnosis: [OSTEOMYELITIS] Indication: [HALFWAY ANTIBX] Pertinent Labs: [REVIEWED] Technique: Following informed consent including risks, benefits and alternatives and using sterile technique including cap and mask, sterile gown, glove and drape, the [RIGHT] arm was prepped and draped in the usual sterile fashion of full barrier technique with CHG. Following completion of [place] Protocol the skin and soft tissues were anesthetized with 1% Lidocaine plain. Using ultrasound guidance, [BASILIC] vein access x 1 attempt after the brachial vein was unable to wire. Over an 0.018 wire through peel-away sheath, a [4 FR SINGLE LUMEN] PICC line was positioned. Catheter length is [43CM] internal length, [0CM] external length, for a total trimmed length of [43CM]. The procedure was performed in [RM 272]. Ultrasound was used to document vein patency and for needle entry. A formal ultrasound picture was recorded. UNABLE TO VERTIFY TIP PLACEMENT WITH 3CG AND CXR WAS ORDERED AND READ BY DR TENORIO. PICC LINE WAS dressed with a StatLock, Tegaderm, and CHG disc. Verification has been performed for blood return and line patency. PT WAS THEN TRANFERED TO ROOM 7. Arm Circumference: [32.5CM] Equipment: [[employer] POWER PICC SOLO ] Catheter Type: [4FR SINGLE LUMEN PICC] Lot #: [[id number]]
[2022-01-24 12:48] LABS: Glucose, Whole Blood 101 mg/dL (60-115)
[2022-01-24 12:55] VITALS: BP 148/90; PULSE 85; RESP 18; TEMP 36.7; O2SAT 99
[2022-01-24] MEDS: Insulin Glargine,Hum.rec.anlog 100 UNIT/ML 10 ML VIAL 50 UNIT SUBCUT (13:39)
--- NOTE | 2022-01-24 14:00 | P.DS_ITS ---
DS: Providers Provider Date of Service: 01/24/22 Date of admission: 01/20/22 23:39 Primary care physician: Unknown Physician Consults: 01/20/22 23:32 Consult to Infectious Diseases Routine Consulting Provider: Autumn Raines Reason for consultation: post amputation non-healing wound Has provider been notified: No 01/21/22 10:22 Consult to General Surgery Routine Consulting Provider: Pawel Hinton Reason for consultation: left toe amputation persistent pain and drainage Has provider been notified: No DS: Diagnosis Discharge Diagnosis (1) Intractable nausea and vomiting: Status: Acute (2) Hyperglycemia due to diabetes mellitus: Status: Acute (3) CAD (coronary artery disease): Status: Acute (4) Amputation of left great toe: Status: Acute DS: Summary Hospital Course Hospital Course: Chief Complaint: intractable N/V 61-year-old male with past medical history of diabetes, hypertension, CAD status post CABG, and recently amputated right big toe secondary to osteomyelitis who presents to the hospital stating that ever since discharge on 01/11 E has had persistent nausea vomiting.? Reports that he has constantly nauseous, has had multiple episodes of vomiting throughout the day.? Patient reports the amount of nausea vomiting has caused him abdominal pain with every retching, he reports? 1 episode of diarrhea daily.? Reports that he was discharged on Augmentin but only took it for 2 days and has stopped taking it.? He also noticed discharge from this suture area but reports no fever or chills.? No urinary symptoms and no lower extremity edema.? All other review of system is negative except as mentioned.? ? Reports that the site of his amputation is significantly painful, 08/05, nonradiating. On arrival to the ED patient hemodynamically stable with no significant abnormal vitals except a slightly elevated blood pressure Labs are significant for WBC count of 12.8 which is higher than his most recent on 01/11, hemoglobin of 13.5 stable, ESR 65 which is improved from 01/11, glucose of 515, CRP of 0.67 which is also improved from 3.79 on the . Given his intractable nausea/vomiting as well as recently amputated right toe? not tolerating p.o. antibiotics? I anticipate the patient will need? a medically necessary 2 night admission for management of intractable vomiting, IV antibiotics and further monitoring hospital course 61-year-old male with recently amputated left great toe secondary to osteomyelitis presents to the hospital with complaints of intractable nausea vomiting, left foot pain, unable to take by mouth antibiotics as prescribed, noted to have significantly elevated blood sugars in the emergency room therefore admitted to [facility] for following medical issues. #? intractable nausea vomiting resolved with IV anti emetics, likley symptom were related to side effects of narcotics, antibiotics or viral gastroenteritis currently patient is tolerating diet with no recurrent symptoms. #? left big toe osteomyelitis with recently amputated left great toe , site of amputation appeared clean sutures were intact due to severe pain x-ray foot was obtained that was questionable for osteomyelitis therefore MRI foot was? obtained that showed 3.2 cm fluid collection question seroma versus abscess and also adjacent edema and enhancement within remaining 1st metatarsal concerning for acute osteomyelitis ? ? case discussed with Dr. Raines she recommend IV ertapenem for 6 week, case discussed with Dr. Hinton? he feels it is postsurgical seroma giving the appearance of skin, therefore PICC line placed patient is being discharged on 6 weeks of IV ertapenem recommended Q weekly lab works, blood cultures x2 are negative, end date of antibiotic is March 05. ? ? # hyperglycemia with history of diabetes type 2, recommend to continue home medication Lantus 50 units b.i.d. and pre meal insulin, hemoglobin A1c, 11.3, strongly recommend to lose weight and follow diabetic diet. #? history of CAD/ hypertension stable, no chest pain, continue metoprolol, Imdur, atorvastatin, and losartan, dose of Coumadin lowered to 5 mg daily and recommend to follow PT INR closely while on antibiotic ?? # neuropathy continue gabapentin # mood disorder, no acute psychiatric decompensation noted, continue venlafaxine, quetiapine, and hydroxyzine. # morbid obesity recommend weight reduction since contributing to hyperglycemia/ and cad. Time Spent with Patient Time attestation: Total time spent providing and/or coordinating discharge services: Discharge coordination time: Greater than 30 minutes Quality: Stroke Does the patient have a stroke diagnosis?: No Physical Exam Vital Signs: Vital Signs: Last Vital Signs Temp 98.0 F 01/24/22 12:55 Pulse 85 01/24/22 12:55 Resp 18 01/24/22 12:55 BP 148/90 H 01/24/22 12:55 Pulse Ox 99 01/24/22 12:55 BMI result Body Mass Index 40.3 Const: Other: Gen: awake alert x3 no acute distress HEENT: sclera anicteric, moist mucus membranes Neck: supple Lungs: clear to auscultation bilaterally Heart: regular rate and rhythm, no murmurs Abd: soft, non-tender, non-distended, obese Ext: L foot amputation site no erythema/edema, no drainage Skin: warm/well-perfused Neuro: alert and oriented x3, no focal findings Psych: appropriate affect ? DS: Data Data Completed and Pending Completed studies during hospitalization [Text1]: Procedures Detachment at Left 1st Toe, Complete, Open Approach (01/03/22) Insertion of Infusion Device into Superior Vena Cava, Percutaneous Approach (0 01/03/22) Ultrasonography of Superior Vena Cava, Guidance (01/03/22) Labs on day of discharge: Laboratory Results - last 24 hr 01/23/22 01/23/22 01/24/22 15:57 20:07 05:30 WBC 8.1 RBC 3.96 L Hgb 11.2 L Hct 34.0 L MCV 85.9 MCH 28.3 MCHC 32.9 RDW 13.6 Plt Count 335 MPV 10.2 Immature Gran % (Auto) 0.4 Neut % (Auto) 56.4 Lymph % (Auto) 30.6 [place] % (Auto) 9.3 Eos % (Auto) 2.7 Baso % (Auto) 0.6 Lymph # (Auto) 2.5 [place] # (Auto) 0.8 Eos # (Auto) 0.2 Baso # (Auto) 0.1 Abs Immat Gran (auto) 0.03 Absolute Neuts (auto) 4.6 Absolute Nucleated RBC 0.000 Nucleated RBC % (auto) 0.0 PT INR POC Glucose 83 110 01/24/22 01/24/22 01/24/22 05:30 07:16 12:45 WBC RBC Hgb Hct MCV MCH MCHC RDW Plt Count MPV Immature Gran % (Auto) Neut % (Auto) Lymph % (Auto) [place] % (Auto) Eos % (Auto) Baso % (Auto) Lymph # (Auto) [place] # (Auto) Eos # (Auto) Baso # (Auto) Abs Immat Gran (auto) Absolute Neuts (auto) Absolute Nucleated RBC Nucleated RBC % (auto) PT 21.1 H INR 1.8 H POC Glucose 85 101 Preliminary micro results at discharge 01/20/22 20:57 Blood Culture - Preliminary Blood - Venous No growth after 48 hours. 01/20/22 20:55 Blood Culture - Preliminary Blood - Venous No growth after 48 hours. Discharge Plan Discharge Patient Disposition: Home Health Service Discharge Diagnosis: left 1st metatarsal osteomyelitis intractable nausea vomiting uncontrolled blood sugar Referrals: [facility] [Other] - 1 Week [facility] [Outside] - 1 Week Pawel Hinton MD [Physician] - 2 Weeks [facility] [Primary Care Provider] - 1 Week Discharge Medications: New warfarin [Jantoven] 5 mg Tablet 5 mg PO DAILY@1800 Qty: 30 0RF Continued (DME) walker Misc See Rx Instructions .Route Qty: 1 0RF Rx Instructions: As directed (DME) off loading shoe Kit See Rx Instructions .Route Qty: 1 0RF Rx Instructions: As directed quetiapine 25 mg tablet 0.5 tab PO BEDTIME 0RF Lantus U-100 Insulin 100 unit/mL solution 50 unit subcut BID@12,22 0RF Rx Instructions: 50 units at lunch and 100 units at bedtime valacyclovir 1 gram tablet 2 tab PO BID 0RF Rx Instructions: 1 more tablet left of 2 day course isosorbide mononitrate 30 mg tablet extended release 24 hr 1 tab PO QAM 0RF thiamine HCl (vitamin B1) 100 mg tablet 1 tab PO DAILY 0RF venlafaxine 100 mg tablet 1 tab PO BID 0RF pantoprazole 40 mg tablet,delayed release (DR/EC) 1 tab PO BID@0630,1630 0RF warfarin 5 mg tablet 5 mg PO DAILY@1800 0RF Rx Instructions: 5 mg on all days except 7.5 mg on [place] losartan 25 mg tablet 1 tab PO DAILY 0RF gabapentin 300 mg capsule 1 cap PO TID 0RF montelukast 10 mg tablet 1 tab PO BEDTIME 0RF insulin lispro 100 unit/mL solution 30 unit subcut TIDAC 0RF zolpidem 10 mg tablet 1 tab PO BEDTIME PRN (Reason: insomnia) 0RF hydroxyzine HCl 10 mg tablet 2 tab PO QID PRN (Reason: itch) 0RF loratadine 10 mg tablet 1 tab PO DAILY 0RF oxycodone 5 mg tablet 2 tab PO Q4H 0RF ezetimibe 10 mg tablet 1 tab PO DAILY 0RF rosuvastatin 40 mg tablet 1 tab PO BEDTIME 0RF metoprolol tartrate 25 mg tablet 1 tab PO BID 0RF oxycodone [OxyContin] 20 mg tablet,oral only,ext.rel.12 hr 1 tab PO BID 0RF ondansetron HCl 4 mg tablet 1 tab PO TID PRN (Reason: nausea) 0RF meclizine 25 mg tablet 1 tab PO TID PRN (Reason: dizziness) 0RF (DME) walker Misc See Rx Instructions .Route Qty: 1 0RF Rx Instructions: As directed Discontinued warfarin 5 mg tablet 2.5 mg PO MOWESA@1800 0RF Rx Instructions: 5 MG ON ALL DAYS EXCEPT 7.5 MG ON [place] Discharge Orders: Discharge Order (Routine); Ordered 01/24/22 Ordered By: Julia Rod Diet: diabetic diet Activity on Discharge: As tolerated Stand Alone Forms: Patient Portal Discharge page Activity Restrictions/Additional Instructions: Follow up in office with Dr. Hinton in 2 weeks. ([phone]) Care Plan Goals: take ertapenem 1 g daily through March 05 check BMP LFTs ESR and PT INR Q weekly/ heparin flush as recommended for picc line Health Concerns: continue all home medications as before follow diabetic diet and continue Lantus and pre meal insulin keep blood sugars under good control Plan of Treatment: Outpatient follow-up with primary care physician 1-2 weeks, and general surgery in 2 weeks Assessment: per dc summary Discharge Date/Time: 01/24/22 16:22
--- NOTE | 2022-01-24 14:04 | MHC.CM.PN ---
Addendum entered by Simran Conti 01/24/22 16:17: CM CONTACTED BY [facility], PTS CHEST XRAY DID NOT CONFIRM THE TIP PLACEMENT OF THE PICC. PER LIAISON, THEY ARE UNABLE TO DELIVER MEDS UNTIL CONFIRMATION IS RECEIVED. PER MD, PLACEMENT WAS CONFIRMED BY [facility], HOWEVER THE DICTATION WILL NOT BE IN UNTIL LATER TODAY. MARILUZ AT [facility] CONFIRMS LONG THEY RECEIVE THE CONFIRMATION LATER TODAY, THEY WILL BE ABLE TO DELIVER THE MEDS IN THE MORNING. SHE ALSO REPORTS SHE WILL CONTACT [facility] AND HAVE THEM SEE PT IN THE AFTERNOON TO ENSURE THE MEDS AND SUPPLIES ARE THERE FIRST PT AND INFORMED OF PLAN Original Note: PICC REPORT, CHEST XRAY AND FLUSH ORDERS SENT TO [facility] AND [facility]IA [facility]. THEY WERE NOTIFIED THAT PT WOULD GO HOME TODAY. [facility] INDICATED THEY WOULD DELIVER MEDS THIS EVENING [facility] WILL SEE PT TOMORROW WILL TRANSPORT
--- NOTE | 2022-01-24 14:22 | PM.PNGS ---
Subjective Subjective Date of Service: 01/24/22 Interval history: Pain much better. Drainage decreasing (now scanty). Physical Exam Vital Signs: Vital Signs: Last Vital Signs Temp 98.0 F 01/24/22 12:55 Pulse 85 01/24/22 12:55 Resp 18 01/24/22 12:55 BP 148/90 H 01/24/22 12:55 Pulse Ox 99 01/24/22 12:55 BMI result Body Mass Index 40.3 Const: General: comfortable and no acute distress Skin: Other: warm and dry Extrem: Other: left foot- left great toe amputation site- sutures intact, some scabbing and separation of incision at apex but only superficial, no erythema, there is bogginess of plantar aspect but no appreciable flutuance Objective Data Active Medications Acetaminophen (Acetaminophen 325 Mg Tablet) 650 mg PO Q6H PRN PRN Reason: Pain, Mild (Pain Scale 1-3) Atorvastatin Calcium (Atorvastatin Calcium 80 Mg Tablet) 80 mg PO BEDTIME [facility] Last Admin: 01/23/22 21:32 Dose: 80 mg Documented by: GABINO Dextrose (Dextrose 50 % 25 Gm/50 Ml Vial) 25 gm IVPUSH Q15M PRN; Protocol PRN Reason: per Hypoglycemia Standing Ord. Docusate Sodium (Docusate Sodium 100 Mg Capsule) 100 mg PO DAILY PRN PRN Reason: Constipation Ezetimibe (Ezetimibe 10 Mg Tablet) 10 mg PO DAILY [facility] Last Admin: 01/24/22 08:35 Dose: 10 mg Documented by: PAMELA Gabapentin (Gabapentin 300 Mg Capsule) 300 mg PO TID [facility] Last Admin: 01/24/22 08:36 Dose: 300 mg Documented by: PAMELA Glucose (Glucose Gel 15 Gm Gel..Gram.) 15 gm PO Q15M PRN; Protocol PRN Reason: per Hypoglycemia Standing Ord. Heparin Sodium (Porcine) (Heparin Sodium,Porcine Flush 50 Units/5 Ml Syringe) [facility] Hydroxyzine HCl (Hydroxyzine Hcl 10 Mg Tablet) 20 mg PO QID PRN PRN Reason: itch Meropenem 1 gm/ Sodium (Chloride) 100 mls @ 200 mls/hr IV Q8H [facility] Last Infusion: 01/24/22 13:39 Dose: 0 mls/hr Documented by: ALONDRA Insulin Glargine (Insulin Glargine,Hum.Rec.Anlog 100 Unit/Ml 10 Ml Vial) 50 unit SUBCUT BID@1200,2200 [facility] Last Admin: 01/24/22 13:39 Dose: 50 unit Documented by: ALONDRA Insulin Human Lispro (Insulin Lispro 100 Unit/Ml 3 Ml Vial) 30 unit SUBCUT TIDAC [facility] Last Admin: 01/24/22 12:56 Dose: Not Given Documented by: PAMELA Non-Admin Reason: No Insulin Coverage Isosorbide Mononitrate (Isosorbide Mononitrate 30 Mg Tab.Er.24h) 30 mg PO DAILY [facility]; Protocol Last Admin: 01/24/22 08:34 Dose: 30 mg Documented by: PAMELA Loratadine (Loratadine 10 Mg Tablet) 10 mg PO DAILY [facility] Last Admin: 01/24/22 08:36 Dose: 10 mg Documented by: PAMELA Losartan Potassium (Losartan Potassium 25 Mg Tablet) 25 mg PO DAILY [facility]; Protocol Last Admin: 01/24/22 08:36 Dose: 25 mg Documented by: PAMELA Meclizine HCl (Meclizine Hcl 25 Mg Tablet) 25 mg PO TID PRN PRN Reason: dizziness Metoprolol Tartrate (Metoprolol Tartrate 25 Mg Tablet) 25 mg PO BID [facility]; Protocol Last Admin: 01/24/22 08:35 Dose: 25 mg Documented by: PAMELA Montelukast Sodium (Montelukast Sodium 10 Mg Tablet) 10 mg PO BEDTIME [facility] Last Admin: 01/23/22 21:32 Dose: 10 mg Documented by: GABINO Omeprazole (Omeprazole 20 Mg Capsule.Dr) 20 mg PO BID@0630,1630 [facility] Last Admin: 01/24/22 05:37 Dose: 20 mg Documented by: GABINO Oxycodone HCl (Oxycodone Hcl Immed Release 5 Mg Tablet) 10 mg PO Q4H [facility] Last Admin: 01/24/22 13:05 Dose: 10 mg Documented by: PAMELA Oxycodone HCl (Oxycodone Hcl Er 10 Mg Tab.Er.12h) 20 mg PO BID [facility] Last Admin: 01/24/22 08:34 Dose: 20 mg Documented by: PAMELA Pharmacy Consult (Consult Rx Vancomycin Dosing) 1 each MISCELLANE DAILY PRN PRN Reason: Consult order Prochlorperazine Edisylate (Prochlorperazine Edisylate 10 Mg/2 Ml Vial) 5 mg IVPUSH Q4H PRN PRN Reason: nausea vomiting Last Admin: 01/23/22 01:10 Dose: 5 mg Documented by: LAZARA Quetiapine Fumarate (Quetiapine Fumarate 25 Mg Tablet) 12.5 mg PO BEDTIME [facility] Last Admin: 01/23/22 21:32 Dose: 12.5 mg Documented by: GABINO Sodium Chloride (0.9 % Sodium Chloride Flush 3 Ml Syringe) 3 ml IVFLUSH QSHIFT [facility] Last Admin: 01/24/22 12:56 Dose: 3 ml Documented by: PAMELA Thiamine HCl (Thiamine Hcl 100 Mg Tablet) 100 mg PO DAILY [facility] Last Admin: 01/24/22 08:34 Dose: 100 mg Documented by: PAMELA Valacyclovir HCl (Valacyclovir Hcl 1,000 Mg Tablet) 1,000 mg PO BID [facility] Last Admin: 01/24/22 08:33 Dose: 1,000 mg Documented by: PAMELA Venlafaxine HCl (Venlafaxine Hcl 25 Mg Tablet) 100 mg PO BID [facility] Last Admin: 01/24/22 08:34 Dose: 100 mg Documented by: PAMELA Warfarin Sodium (Warfarin Sodium 5 Mg Tablet) 5 mg PO DAILY@1800 [facility] Zolpidem Tartrate (Zolpidem Tartrate 5 Mg Tablet) 10 mg PO BEDTIME PRN PRN Reason: insomnia Last Admin: 01/23/22 21:38 Dose: 10 mg Documented by: GABINO Labs CBC & Chem 7: 01/24/22 05:30 01/23/22 05:27 Labs: Laboratory Results - last 24 hr 01/23/22 01/23/22 01/24/22 15:57 20:07 05:30 MCV 85.9 MCH 28.3 MCHC 32.9 RDW 13.6 Plt Count 335 MPV 10.2 Immature Gran % (Auto) 0.4 Neut % (Auto) 56.4 Lymph % (Auto) 30.6 Greene % (Auto) 9.3 Eos % (Auto) 2.7 Baso % (Auto) 0.6 Lymph # (Auto) 2.5 Greene # (Auto) 0.8 Eos # (Auto) 0.2 Baso # (Auto) 0.1 Abs Immat Gran (auto) 0.03 Absolute Neuts (auto) 4.6 Absolute Nucleated RBC 0.000 Nucleated RBC % (auto) 0.0 PT INR POC Glucose 83 110 01/24/22 01/24/22 01/24/22 05:30 07:16 12:45 MCV MCH MCHC RDW Plt Count MPV Immature Gran % (Auto) Neut % (Auto) Lymph % (Auto) Greene % (Auto) Eos % (Auto) Baso % (Auto) Lymph # (Auto) Greene # (Auto) Eos # (Auto) Baso # (Auto) Abs Immat Gran (auto) Absolute Neuts (auto) Absolute Nucleated RBC Nucleated RBC % (auto) PT 21.1 H INR 1.8 H POC Glucose 85 101 Procedures Date of Service Date of Service: 01/24/22 Progress Note: A&P Assessment and plan (1) Amputation of left great toe: Status: Acute Plan 61 year old male who underwent amputation of left great toe on 01/07/[address] Hinton, readmitted for intractable nausea and vomiting. Being treated with IV abx for 6 weeks for osteomyelitis. Amputation site is clean and well healing for the most part. Sutures were removed. There is bogginess of plantar aspect which is likely secondary to edema/post op changes. F/u in office with Dr. Hinton in [address] a dry dressing on amputation site while draining. Patient and comfortable with plan. Fall Risk Details Current Medications: Current Medications Acetaminophen (Acetaminophen 325 Mg Tablet) 650 mg PO Q6H PRN PRN Reason: Pain, Mild (Pain Scale 1-3) Atorvastatin Calcium (Atorvastatin Calcium 80 Mg Tablet) 80 mg PO BEDTIME [facility] Last Admin: 01/23/22 21:32 Dose: 80 mg Documented by: Dextrose (Dextrose 50 % 25 Gm/50 Ml Vial) 25 gm IVPUSH Q15M PRN; Protocol PRN Reason: per Hypoglycemia Standing Ord. Docusate Sodium (Docusate Sodium 100 Mg Capsule) 100 mg PO DAILY PRN PRN Reason: Constipation Ezetimibe (Ezetimibe 10 Mg Tablet) 10 mg PO DAILY [facility] Last Admin: 01/24/22 08:35 Dose: 10 mg Documented by: Gabapentin (Gabapentin 300 Mg Capsule) 300 mg PO TID [facility] Last Admin: 01/24/22 08:36 Dose: 300 mg Documented by: Glucose (Glucose Gel 15 Gm Gel..Gram.) 15 gm PO Q15M PRN; Protocol PRN Reason: per Hypoglycemia Standing Ord. Heparin Sodium (Porcine) (Heparin Sodium,Porcine Flush 50 Units/5 Ml Syringe) [facility] Hydroxyzine HCl (Hydroxyzine Hcl 10 Mg Tablet) 20 mg PO QID PRN PRN Reason: itch Meropenem 1 gm/ Sodium (Chloride) 100 mls @ 200 mls/hr IV Q8H [facility] Last Infusion: 01/24/22 13:39 Dose: Infused Documented by: Insulin Glargine (Insulin Glargine,Hum.Rec.Anlog 100 Unit/Ml 10 Ml Vial) 50 unit SUBCUT BID@1200,2200 [facility] Last Admin: 01/24/22 13:39 Dose: 50 unit Documented by: Insulin Human Lispro (Insulin Lispro 100 Unit/Ml 3 Ml Vial) 30 unit SUBCUT TIDAC [facility] Last Admin: 01/24/22 12:56 Dose: Not Given Documented by: Isosorbide Mononitrate (Isosorbide Mononitrate 30 Mg Tab.Er.24h) 30 mg PO DAILY [facility]; Protocol Last Admin: 01/24/22 08:34 Dose: 30 mg Documented by: Loratadine (Loratadine 10 Mg Tablet) 10 mg PO DAILY [facility] Last Admin: 01/24/22 08:36 Dose: 10 mg Documented by: Losartan Potassium (Losartan Potassium 25 Mg Tablet) 25 mg PO DAILY [facility]; Protocol Last Admin: 01/24/22 08:36 Dose: 25 mg Documented by: Meclizine HCl (Meclizine Hcl 25 Mg Tablet) 25 mg PO TID PRN PRN Reason: dizziness Metoprolol Tartrate (Metoprolol Tartrate 25 Mg Tablet) 25 mg PO BID [facility]; Protocol Last Admin: 01/24/22 08:35 Dose: 25 mg Documented by: Montelukast Sodium (Montelukast Sodium 10 Mg Tablet) 10 mg PO BEDTIME [facility] Last Admin: 01/23/22 21:32 Dose: 10 mg Documented by: Omeprazole (Omeprazole 20 Mg Capsule.) 20 mg PO BID@0630,1630 [facility] Last Admin: 01/24/22 05:37 Dose: 20 mg Documented by: Oxycodone HCl (Oxycodone Hcl Immed Release 5 Mg Tablet) 10 mg PO Q4H [facility] Last Admin: 01/24/22 13:05 Dose: 10 mg Documented by: Oxycodone HCl (Oxycodone Hcl Er 10 Mg Tab.Er.12h) 20 mg PO BID [facility] Last Admin: 01/24/22 08:34 Dose: 20 mg Documented by: Pharmacy Consult (Consult Rx Vancomycin Dosing) 1 each MISCELLANE DAILY PRN PRN Reason: Consult order Prochlorperazine Edisylate (Prochlorperazine Edisylate 10 Mg/2 Ml Vial) 5 mg IVPUSH Q4H PRN PRN Reason: nausea vomiting Last Admin: 01/23/22 01:10 Dose: 5 mg Documented by: Quetiapine Fumarate (Quetiapine Fumarate 25 Mg Tablet) 12.5 mg PO BEDTIME [facility] Last Admin: 01/23/22 21:32 Dose: 12.5 mg Documented by: Sodium Chloride (0.9 % Sodium Chloride Flush 3 Ml Syringe) 3 ml IVFLUSH QSHIFT [facility] Last Admin: 01/24/22 12:56 Dose: 3 ml Documented by: Thiamine HCl (Thiamine Hcl 100 Mg Tablet) 100 mg PO DAILY [facility] Last Admin: 01/24/22 08:34 Dose: 100 mg Documented by: Valacyclovir HCl (Valacyclovir Hcl 1,000 Mg Tablet) 1,000 mg PO BID [facility] Last Admin: 01/24/22 08:33 Dose: 1,000 mg Documented by: Venlafaxine HCl (Venlafaxine Hcl 25 Mg Tablet) 100 mg PO BID [facility] Last Admin: 01/24/22 08:34 Dose: 100 mg Documented by: Warfarin Sodium (Warfarin Sodium 5 Mg Tablet) 5 mg PO DAILY@1800 [facility] Zolpidem Tartrate (Zolpidem Tartrate 5 Mg Tablet) 10 mg PO BEDTIME PRN PRN Reason: insomnia Last Admin: 01/23/22 21:38 Dose: 10 mg Documented by: Time Spent With Patient Time: Total time spent is greater than 50% in coordination of care (as documented) at patient's floor/unit and/or counseling patient: Quality Stroke Does the patient have a stroke diagnosis?: No VTE Prior VTE?: No VTE Risk Level:: Medical - moderate - high VTE Device Contraindication: Treatment Not Indicated VTE Drug Contraindication: N/A - Med Ordered
[2022-01-24 15:48] VITALS: BP 119/68; PULSE 81; RESP 18; TEMP 36.4; O2SAT 97
--- NOTE | 2022-01-24 17:12 | P.F2F_ITS ---
Service Date Service Date: 01/24/22 Encounter Date of encounter: 01/24/22 Reasons for Services Signs and symptoms assessed: admitted for left toe pain at site of amputation diagnosed to have 1st metatarsal osteomyelitis need prolonged IV antibiotic and monitoring of wound Reason for long-term: monitoring of PT/INR and medication management Overseeing Care: Michael Acosta Homebound: Leaving the home is medically contraindicated at this time without the asist of a device and/or another person due th the listed conditions above and below. Reason homebound: weakness related to hospital stay Certification: Based on the above findings, I certify that this patient is confined to the home and needs intermittent long-term care, physical therapy and/or speech therapy, or continues to need occupational therapy. The patient is under my care, and I have initiated the establishment of the plan of care. The patient will be followed by a physician who will periodically review the plan of care.
== END 2022-01-24 16:22 | disposition home health service (06) | DRG 344 ==
LOC: HO.ED 20:12 → HO.EDOVER 23:46 → HO.S3 01-21 19:24
PROVIDERS: Nurse Practitioner Family; Admitting Provider Internal Medicine; Emergency Provider Internal Medicine; PCP Internal Medicine; Visit Provider Hospitalist
DX: E11.69 Type 2 diabetes mellitus with other specified complication (principal); M86.172 Other acute osteomyelitis, left ankle and foot; E11.628 Type 2 diabetes mellitus with other skin complications; E11.40 Type 2 diabetes mellitus with diabetic neuropathy, unspecified; L03.116 Cellulitis of left lower limb; E11.65 Type 2 diabetes mellitus with hyperglycemia; Z96.643 Presence of artificial hip joint, bilateral; E78.5 Hyperlipidemia, unspecified; E66.01 Morbid (severe) obesity due to excess calories; I25.10 Atherosclerotic heart disease of native coronary artery without angina pectoris; R11.2 Nausea with vomiting, unspecified; L76.34 Postprocedural seroma of skin and subcutaneous tissue following other procedure; T36.95XA Adverse effect of unspecified systemic antibiotic, initial encounter; T40.605A Adverse effect of unspecified narcotics, initial encounter; Z68.41 Body mass index [BMI] 40.0-44.9, adult; Z95.1 Presence of aortocoronary bypass graft; Z20.822 Contact with and (suspected) exposure to COVID-19; Z79.4 Long term (current) use of insulin; Z79.01 Long term (current) use of anticoagulants; Z87.891 Personal history of nicotine dependence; Z79.899 Other long term (current) drug therapy
CPT/HCPCS: 36415; 36573; 71045; 73620; 73720; 80048; 80076; 82009; 82803; 82947; 83036; 83605; 83735; 85025; 85610; 85652; 86140; 87040; 87502; 87635; 93005; 96361; 96374; 96375; 96376; 99285; A9585; C1751; J1170; J1885; J2185; J2405; J2543; J3370

== ENCOUNTER 2022-01-24 23:09 | Emergency (ER) | payer MEDICAID, SELFPAY ==
[2022-01-24 23:30] VITALS: BP 110/78; BP 124/64; PULSE 66; PULSE 89; RESP 16; TEMP 36.1; O2SAT 98; BMI 41.3
[2022-01-25] VITALS: BP 102/46; PULSE 81; RESP 16; TEMP 37.1; O2SAT 96
--- NOTE | 2022-01-25 01:51 | PC.NURSE ---
Per patient i'm going to leave. you people do nothing for me. pt educated that a provider must be the one to assess the extremity and that patients are seen in the ED by level of acuity and ROBEL triage. Per patient i've been here three times for the same thing. Pt further educated risks of LWT. Pt stated on phone i'm leaving Pt ambulated with steady gait. to exit.
--- NOTE | 2022-01-25 01:56 | PC.NURSE ---
Pt LWT prior to provider assessment.
== END 2022-01-25 02:09 | disposition left against medical advice (07) ==
PROVIDERS: Emergency Provider Emergency Medicine
DX: M79.675 Pain in left toe(s) (principal); Z89.412 Acquired absence of left great toe
CPT/HCPCS: 99283

== ENCOUNTER → 2022-01-25 13:36 | Outpatient (BNVA) | payer MEDICAID, SELFPAY | PROVIDERS: PCP Internal Medicine; Visit Provider Surgery | DX: S98.112D Complete traumatic amputation of left great toe, subsequent encounter (principal) | CPT/HCPCS: 99212 ==

== ENCOUNTER 2022-01-30 14:24 | Outpatient (REF) | payer MEDICAID, SELFPAY ==
[2022-01-30 17:21] LABS: Alanine Aminotransferase 24 U/L (0-40); Albumin Level 3.2 g/dL (3.5-5.0); Alkaline Phosphatase 88 U/L (39-117); Anion Gap 13 (12-20); Aspartate Amino Transferase 21 U/L (5-37); Bilirubin Direct < 0.2 mg/dL (0.0-0.5); Bilirubin Total 0.3 mg/dL (0.0-1.0); Blood Urea Nitrogen 9 mg/dL (9-16); Calcium 8.7 mg/dL (8.4-10.2); Carbon Dioxide 23 mmol/L (22-29); Chloride 106 mmol/L (96-108); Estimated Glomerular Filt Rate > 60; Glucose Random 174 mg/dL (60-115); Potassium 4.3 mmol/L (3.3-5.1); Sodium 138 mmol/L (135-145); Total Protein 5.6 g/dL (6.5-8.0)
[2022-01-30 18:09] LABS: Erythrocyte Sedimentation Rate 27 MM/HR (0-15)
== END 2022-01-30 14:25 | disposition home or self-care (01) ==
LOC: HO.HMGCLNP 14:24
PROVIDERS: Visit Provider Internal Medicine
DX: M86.9 Osteomyelitis, unspecified (principal); Z79.2 Long term (current) use of antibiotics
CPT/HCPCS: 80048; 80076; 85652

== ENCOUNTER 2022-02-06 15:03 | Outpatient (REF) | payer MEDICAID, SELFPAY ==
[2022-02-06 15:53] LABS: Alanine Aminotransferase 15 U/L (0-40); Albumin Level 3.3 g/dL (3.5-5.0); Alkaline Phosphatase 98 U/L (39-117); Anion Gap 14 (12-20); Aspartate Amino Transferase 14 U/L (5-37); Bilirubin Direct < 0.2 mg/dL (0.0-0.5); Bilirubin Total 0.3 mg/dL (0.0-1.0); Blood Urea Nitrogen 11 mg/dL (9-16); Calcium 8.7 mg/dL (8.4-10.2); Carbon Dioxide 24 mmol/L (22-29); Chloride 107 mmol/L (96-108); Estimated Glomerular Filt Rate > 60; Glucose Random 186 mg/dL (60-115); Potassium 4.5 mmol/L (3.3-5.1); Sodium 140 mmol/L (135-145); Total Protein 5.7 g/dL (6.5-8.0)
[2022-02-06 15:57] LABS: Erythrocyte Sedimentation Rate 18 MM/HR (0-15)
== END 2022-02-06 15:04 | disposition home or self-care (01) ==
LOC: HO.HVNA 15:03
PROVIDERS: Visit Provider Internal Medicine
DX: Z79.2 Long term (current) use of antibiotics (principal)
CPT/HCPCS: 36415; 80048; 80076; 85652

== ENCOUNTER 2022-02-14 16:53 | Outpatient (REF) | payer MEDICAID, SELFPAY ==
[2022-02-14 17:19] LABS: Alanine Aminotransferase 13 U/L (0-40); Albumin Level 3.3 g/dL (3.5-5.0); Alkaline Phosphatase 89 U/L (39-117); Anion Gap 11 (12-20); Aspartate Amino Transferase 15 U/L (5-37); Bilirubin Direct < 0.2 mg/dL (0.0-0.5); Bilirubin Total 0.4 mg/dL (0.0-1.0); Blood Urea Nitrogen 9 mg/dL (9-16); Calcium 8.8 mg/dL (8.4-10.2); Carbon Dioxide 24 mmol/L (22-29); Chloride 109 mmol/L (96-108); Estimated Glomerular Filt Rate > 60; Glucose Random 157 mg/dL (60-115); Potassium 4.4 mmol/L (3.3-5.1); Sodium 140 mmol/L (135-145); Total Protein 5.8 g/dL (6.5-8.0)
[2022-02-14 17:50] LABS: Erythrocyte Sedimentation Rate 14 MM/HR (0-15)
== END 2022-02-14 16:54 | disposition home or self-care (01) ==
LOC: HO.HVNA 16:53
PROVIDERS: Visit Provider Internal Medicine
DX: M86.9 Osteomyelitis, unspecified (principal)
CPT/HCPCS: 36415; 80048; 80076; 85652

== ENCOUNTER → 2022-02-15 10:20 | Outpatient (BNVA) | payer MEDICAID, SELFPAY | PROVIDERS: PCP Internal Medicine; Visit Provider Surgery | DX: T87.81 Dehiscence of amputation stump (principal); Z89.412 Acquired absence of left great toe | CPT/HCPCS: 99212 ==

== ENCOUNTER 2022-02-21 14:22 | Outpatient (REF) | payer MEDICAID, SELFPAY ==
[2022-02-21 16:44] LABS: Alanine Aminotransferase 12 U/L (0-40); Albumin Level 3.5 g/dL (3.5-5.0); Alkaline Phosphatase 90 U/L (39-117); Anion Gap 13 (12-20); Aspartate Amino Transferase 15 U/L (5-37); Bilirubin Direct < 0.2 mg/dL (0.0-0.5); Bilirubin Total 0.2 mg/dL (0.0-1.0); Blood Urea Nitrogen 8 mg/dL (9-16); Calcium 8.9 mg/dL (8.4-10.2); Carbon Dioxide 24 mmol/L (22-29); Chloride 107 mmol/L (96-108); Estimated Glomerular Filt Rate > 60; Glucose Random 134 mg/dL (60-115); Potassium 4.6 mmol/L (3.3-5.1); Sodium 139 mmol/L (135-145); Total Protein 6.1 g/dL (6.5-8.0)
[2022-02-21 18:02] LABS: Erythrocyte Sedimentation Rate 14 MM/HR (0-15)
== END 2022-02-21 14:23 | disposition home or self-care (01) ==
LOC: HO.HMGCLNP 14:22
PROVIDERS: Visit Provider Internal Medicine
DX: M86.9 Osteomyelitis, unspecified (principal)
CPT/HCPCS: 80048; 80076; 85652

== ENCOUNTER 2022-02-27 15:14 | Outpatient (REF) | payer MEDICAID, SELFPAY ==
[2022-02-27 16:14] LABS: Alanine Aminotransferase 9 U/L (0-40); Albumin Level 3.4 g/dL (3.5-5.0); Alkaline Phosphatase 92 U/L (39-117); Anion Gap 11 (12-20); Aspartate Amino Transferase 12 U/L (5-37); Bilirubin Direct < 0.2 mg/dL (0.0-0.5); Bilirubin Total 0.4 mg/dL (0.0-1.0); Blood Urea Nitrogen 9 mg/dL (9-16); Calcium 8.8 mg/dL (8.4-10.2); Carbon Dioxide 25 mmol/L (22-29); Chloride 108 mmol/L (96-108); Estimated Glomerular Filt Rate > 60; Glucose Random 137 mg/dL (60-115); Potassium 4.4 mmol/L (3.3-5.1); Sodium 140 mmol/L (135-145); Total Protein 5.8 g/dL (6.5-8.0)
[2022-02-27 16:31] LABS: Erythrocyte Sedimentation Rate 13 MM/HR (0-15)
== END 2022-02-27 15:15 | disposition home or self-care (01) ==
LOC: HO.LNP 15:14
PROVIDERS: Visit Provider Internal Medicine
DX: M86.9 Osteomyelitis, unspecified (principal)
CPT/HCPCS: 80048; 80076; 85652

== ENCOUNTER 2022-03-04 07:19 | Day surgery (SDC) | payer MEDICAID, SELFPAY ==
[2022-03-04] VITALS (9 sets, daily range): BP systolic 155–173; BP diastolic 63–85; PULSE 67–73; RESP 11–20; TEMP 36.1–36.3; O2SAT 96–99; BMI 41.3
--- NOTE | 2022-03-04 08:19 | HO.ANESPROP2 ---
HPI - Anesthesia Eval Consult details Narrative: 61 yo male patient for debridement of Left great toe soft tissue wound PMFSH Active Problems Active Problems: All Active Problems (Updated 02/01/22 @ 00:03 by Eugenia Lechuga) Diabetic osteomyelitis (Acute) Osteomyelitis (Acute) Leukocytosis (Acute) Denies recent chest pain On warfarin since CABG Asthma. Uses inhalers twice a day prn. Did not use this am Denies LUIGI Past Medical History Medical History Amputation of left great toe Asthma CAD (coronary artery disease) Cellulitis Diabetes DMII (diabetes mellitus, type 2) FHx: bilateral hip replacements Hyperglycemia Hypertension Lower limb amputation, great toe Orthopedic hardware present Family History Family History Other No family history of coronary artery disease Family history of problems with anesthesia: No Surgical History Surgical History H/O bilateral hip replacements History of amputation of great toe (01/07/22) History of ankle surgery History of back surgery History of neck surgery S/P quadruple vessel bypass History of Problems with Anesthesia: No Social History Social History Household Members: Family Housing: Apartment Are you a primary childcare center administrator to a significant other at home: No Do you presently have visiting nurse or other home services: No Alcohol intake: never Patient Tobacco Use Status: Former Tobacco user Tobacco use type: Cigarette Use of substances other than those prescribed or required for medical reasons: No Have you been hit, kicked, punched, or otherwise hurt by someone within the past year? If so, by whom?: No Are you DNR?: No Advance Directives: Yes Advance Directives on File: Yes Advance Directives Date on File: 01/04/22 Recently lost weight without trying: No Nutrition Risks: No Nutritional Risk service: Yes Current occupational status: retired Meds Allergies Allergy/AdvReac Type Severity Reaction Status Date / Time morphine AdvReac Intermediate Hallucinati Verified 01/25/22 13:54 ons Active Medications: Current Medications Lactated Ringer's (Lr) 1,000 mls @ 100 mls/hr IVCONT .Q10H [facility] Home Medications Medication Instructions Recorded Confirmed Last Taken Type ezetimibe 10 mg tablet 1 tab PO DAILY 01/03/22 02/15/22 01/02/22 History gabapentin 300 mg capsule 1 cap PO TID 01/03/22 01/25/22 01/02/22 History hydroxyzine HCl 10 mg tablet 2 tab PO QID PRN 01/03/22 01/25/22 Unknown History insulin glargine 100 unit/mL 50 unit SUBCUT BID@01/03/22 01/25/22 01/02/22 History subcutaneous solution (Lantus U-100 Insulin) insulin lispro 100 unit/mL 30 unit SUBCUT TIDAC 01/03/22 01/25/22 01/02/22 History subcutaneous solution isosorbide mononitrate 30 mg 1 tab PO QAM 01/03/22 01/25/22 01/02/22 History tablet,extended release 24 hr loratadine 10 mg tablet 1 tab PO DAILY 01/03/22 01/25/22 01/02/22 History losartan 25 mg tablet 1 tab PO DAILY 01/03/22 01/25/22 01/02/22 History meclizine 25 mg tablet 1 tab PO TID PRN 01/03/22 01/25/22 Unknown History metoprolol tartrate 25 mg tablet 1 tab PO BID 01/03/22 01/25/22 01/02/22 History montelukast 10 mg tablet 1 tab PO BEDTIME 01/03/22 01/25/22 01/02/22 History ondansetron HCl 4 mg tablet 1 tab PO TID PRN 01/03/22 01/25/22 Unknown History oxycodone 20 mg tablet,crush 1 tab PO BID 01/03/22 01/25/22 01/02/22 History resistant,extended release 12 hr (OxyContin) oxycodone 5 mg tablet 2 tab PO Q4H 01/03/22 01/25/22 01/02/22 History pantoprazole 40 mg tablet,delayed 1 tab PO BID@0630,1630 01/03/22 01/25/22 01/02/22 History release quetiapine 25 mg tablet 0.5 tab PO BEDTIME 01/03/22 01/25/22 01/02/22 History rosuvastatin 40 mg tablet 1 tab PO BEDTIME 01/03/22 01/25/22 01/02/22 History thiamine HCl (vitamin B1) 100 mg 1 tab PO DAILY 01/03/22 01/25/22 01/02/22 History tablet valacyclovir 1 gram tablet 2 tab PO BID 01/03/22 01/25/22 01/02/22 History venlafaxine 100 mg tablet 1 tab PO BID 01/03/22 01/25/22 01/02/22 History warfarin 5 mg tablet 5 mg PO DAILY@1800 01/03/22 01/25/22 03/01/22 History zolpidem 10 mg tablet 1 tab PO BEDTIME PRN 01/03/22 01/25/22 Unknown History Exam Exam Date and Time: March 04, 2022818 Height,Weight and Vital Signs: Height 5 ft 8 in Weight 123.377 kg Last Vital Signs Temp 97.3 F 03/04/22 07:47 Pulse 67 03/04/22 07:47 Resp 16 03/04/22 07:47 BP 167/76 H 03/04/22 07:47 Pulse Ox 98 03/04/22 07:47 Pertinent Lab Results Pertinent Lab Results: Lab Results 03/04/22 Range/Units 08:53 POC Glucose 241 H (60-115) mg/dL 03/04/22: PT/INR 13.8/1.2 Airway Mallampati Class: II TM Dist: >3cm Neck ROM: Full Loose/Missing/Broken Teeth: Yes (Edentulous) Heart: RRR Lungs: CTAB Assessment and Plan Assessment Anesthesia Assessment: Anesthesia Plan Discussed and Chart Reviewed Final Anesthetic Review Family History of Problems with Anesthesia: No History of Problems with Anesthesia: No NPO: Yes ASA Class: III Final Preanesthetic Review: No Changes in Pt Med Stat, Meds/Allgs Chart Reviewed, Consent Obtained/Reviewed and Anes Risks/Benef Reviewed Patient Risk: Intermediate Procedure Risk: Low Assessment/Block/Sedation in SS: Assess/Block/Sedation-SS Anesthetic Plan Anesthetic Plan: GA Disposition: Standard PACU
--- NOTE | 2022-03-04 08:41 | MHC.SHP ---
Pre-Procedural Eval Section A Date of Service: 03/04/22 The patient is an INPATIENT: No Changes since office visit: Yes Patient answered all questions; No Cold of Flu in the past 2 weeks, No New Medical Problems and No Changes in Medication The History & Physical has been completed within 30 days and I have reviewed it.: Yes Section B Chief Complaint: osteomyelitis Allergies: Allergies Allergy/AdvReac Type Severity Reaction Status Date / Time morphine AdvReac Intermediate Hallucinati Verified 01/25/22 13:54 ons Plan Diagnosis/Plan: Unchanged I have reviewed the history and physical and performed a pertinent physical examination on my patient. No changes have occurred unless specified.
[2022-03-04 08:57] LABS: Glucose, Whole Blood 241 mg/dL (60-115)
[2022-03-04 09:27] LABS: INTERNATIONAL NORM RATIO 1.2 (0.9-1.1); Prothrombin Time 13.8 SEC (9.9-13.0)
--- NOTE | 2022-03-04 10:05 | W.PM.OPN ---
Operative Note Operative Note Date of Service: 03/04/22 Narrative: Preoperative diagnosis: Osteomyelitis left great toe, status post right great toe amputation Postoperative diagnosis: Same Procedure: Debridement of left great toe wound Surgeon: Pawel Hinton MD [employer] Grader: No physician Anesthesia: General LMA Indications for procedure: 61-year-old male patient presenting with a previous history of osteomyelitis of the left great toe S/P amputation of the left great toe. Patient subsequently developed a wound separation after suture removal. Presents today for debridement of the wound and closure of wound. Operative findings: Separation of the wound following amputation of left great toe with granulation tissue at the base. No evidence of underlying abscess or exposed bone. Specimen: None Estimated blood loss: 5 mL Complications: None Procedure details: Patient was brought to the OR placed in a supine position. After administering general anesthesia the patient's left foot was prepped with Betadine and draped in a sterile fashion. A surgical time-out was called and consent confirmed. Patient received preoperative antibiotics and Venodyne boots were in place. Using a small curette the granulation tissue was excised of the wound which measured 5 x 2 cm x 2 cm deep. Debridement of granulation tissue and soft tissue was performed. No skin was excised and no bone debrided. Skin edges appeared healthy. No underlying abscess could be appreciated. Hemostasis was assured using electrocautery. Following debridement of the granulation tissue, wounds were thoroughly irrigated with saline solution suctioned dry. Wounds were again checked for hemostasis. Dermis was then reapproximated using interrupted 3-0 Polysorb sutures. Skin was closed using interrupted 3-0 nylon sutures. Wounds were then dressed with fluff gauze followed by Kerlix and Saúl bandage. The patient tolerated the procedure well. Sponge, instrument, and needle counts reported as correct. The patient was transferred to PACU in stable condition.
[2022-03-04] MEDS: fentaNYL citrate/PF 100 MCG/2 ML VIAL 50 MCG IVPUSH ×2 (10:15→10:20)
[2022-03-04] MEDS: oxyCODONE HCl Immed Release 5 MG TABLET 10 MG PO (10:15)
[2022-03-04] MEDS: Lactated Ringers 1,000 ML 100 ML IVCONT (10:24)
[2022-03-04] MEDS: Acetaminophen 325 MG TABLET 650 MG PO (10:34)
[2022-03-04] MEDS: ondansetron HCL 4 MG/2 ML VIAL IVPUSH (10:35)
== END 2022-03-04 12:14 | disposition home or self-care (01) ==
PROVIDERS: Anesthesiology; Visit Provider Surgery
PROC: (CPT 11043; principal; 2022-03-04 09:10)
DX: T81.31XA Disruption of external operation (surgical) wound, not elsewhere classified, initial encounter (principal); E11.69 Type 2 diabetes mellitus with other specified complication; M86.8X7 Other osteomyelitis, ankle and foot; Y83.5 Amputation of limb(s) as the cause of abnormal reaction of the patient, or of later complication, without mention of misadventure at the time of the procedure; Y92.9 Unspecified place or not applicable; Z89.412 Acquired absence of left great toe; I25.10 Atherosclerotic heart disease of native coronary artery without angina pectoris; I10 Essential (primary) hypertension; Z95.1 Presence of aortocoronary bypass graft; J45.909 Unspecified asthma, uncomplicated; Z79.4 Long term (current) use of insulin; Z79.01 Long term (current) use of anticoagulants; Z88.8 Allergy status to other drugs, medicaments and biological substances; Z79.899 Other long term (current) drug therapy; Z96.643 Presence of artificial hip joint, bilateral; Z87.891 Personal history of nicotine dependence
CPT/HCPCS: 11043; 36415; 82947; 85610; J0690; J2250; J2405; J3010

== ENCOUNTER → 2022-03-14 13:44 | Outpatient (BNVA) | payer MEDICAID, SELFPAY | PROVIDERS: Visit Provider Surgery | DX: E11.69 Type 2 diabetes mellitus with other specified complication (principal); M86.9 Osteomyelitis, unspecified; Z79.4 Long term (current) use of insulin | CPT/HCPCS: 99212 ==

== ENCOUNTER → 2022-03-28 14:56 | Outpatient (BNVA) | payer MEDICAID, SELFPAY | PROVIDERS: Visit Provider Surgery | DX: Z13.89 Encounter for screening for other disorder (principal) ==

== ENCOUNTER → 2022-04-16 13:37 | Outpatient (BNVA) | payer MEDICAID, SELFPAY | PROVIDERS: PCP Internal Medicine; Visit Provider Surgery | DX: E11.69 Type 2 diabetes mellitus with other specified complication (principal); M86.9 Osteomyelitis, unspecified; Z89.412 Acquired absence of left great toe | CPT/HCPCS: 99212 ==

== ENCOUNTER 2022-04-17 12:51 | Outpatient (REF) | payer MEDICAID, SELFPAY ==
[2022-04-17 14:16] LABS: Basophils Percent Auto 0.5 % (0-2); Eosinophils Absolute Auto 0.1 X10*3/uL (0.0-0.4); Eosinophils Percent Auto 1.9 % (0-4); Hematocrit 35.8 % (42.0-52.0); Hemoglobin 12.1 g/dl (14.0-18.0); Imm Gran Abs Auto 0.05 X10*3/uL (0.00-0.03); Imm Gran Pct Auto 0.7 % (0.0-0.4); Lymphocytes Absolute Auto 2.3 X10*3/uL (1.2-4.9); Lymphocytes Percent Auto 30.2 % (20-40); MANUAL DIFF FLAG NO; Mean Corpuscular HGB Conc 33.8 g/dl (31.0-36.0); Mean Corpuscular Hemoglobin 29.1 pg (27.0-33.0); Mean Corpuscular Volume 86.1 fL (80.0-98.0); Mean Platelet Volume 10.9 fL (9.4-12.4); Monocytes Absolute Auto 0.7 X10*3/uL (0.1-1.2); Monocytes Percent Auto 9.3 % (2-11); Neutrophils Absolute Auto 4.3 x10*3/uL (2.0-8.3); Neutrophils Percent Auto 57.4 % (45-73); Platelet Count 266 X10*3/uL (160-400); Red Blood Count 4.16 X10*6/uL (4.60-5.80); Red Cell Distribution Width 13.9 % (11.0-16.0); White Blood Count 7.6 X10*3/uL (4.8-10.8)
[2022-04-17 15:08] LABS: Alanine Aminotransferase 15 U/L (0-40); Anion Gap 12 (12-20); Aspartate Amino Transferase 16 U/L (5-37); Blood Urea Nitrogen 10 mg/dL (9-16); Calcium 8.6 mg/dL (8.4-10.2); Carbon Dioxide 24 mmol/L (22-29); Chloride 106 mmol/L (96-108); Estimated Glomerular Filt Rate > 60; Glucose Random 243 mg/dL (60-115); Potassium 4.6 mmol/L (3.3-5.1); Sodium 137 mmol/L (135-145)
== END 2022-04-17 12:52 | disposition home or self-care (01) ==
LOC: HO.HVNA 12:51
PROVIDERS: PCP Nurse Practitioner Family; Visit Provider Nurse Practitioner Family
DX: I25.10 Atherosclerotic heart disease of native coronary artery without angina pectoris (principal)
CPT/HCPCS: 36415; 80048; 84450; 84460; 85025

== ENCOUNTER → 2022-05-28 13:49 | Outpatient (BNVA) | payer MEDICAID, SELFPAY | PROVIDERS: PCP Nurse Practitioner Family; Referring Provider Nurse Practitioner Family; Visit Provider Surgery | DX: E11.69 Type 2 diabetes mellitus with other specified complication (principal); M86.9 Osteomyelitis, unspecified; L84 Corns and callosities | CPT/HCPCS: 99212 ==

== ENCOUNTER 2022-07-09 15:08 | Outpatient (REF) | payer MEDICAID, SELFPAY | END 2022-07-09 15:09 | disposition home or self-care (01) | LOC: HO.LAB 15:08 | PROVIDERS: Visit Provider Surgery | DX: E11.69 Type 2 diabetes mellitus with other specified complication (principal); M86.9 Osteomyelitis, unspecified | CPT/HCPCS: 87071; 87205; 97597; 99212 ==

== ENCOUNTER → 2022-07-18 14:11 | Outpatient (BNVA) | payer MEDICAID, SELFPAY | PROVIDERS: PCP Internal Medicine; Visit Provider Surgery | DX: E11.621 Type 2 diabetes mellitus with foot ulcer (principal); L97.529 Non-pressure chronic ulcer of other part of left foot with unspecified severity; E11.69 Type 2 diabetes mellitus with other specified complication; M86.9 Osteomyelitis, unspecified; Z89.412 Acquired absence of left great toe | CPT/HCPCS: 99212 ==

== ENCOUNTER 2022-07-29 07:11 | Day surgery (SDC) | payer MEDICAID, SELFPAY ==
--- NOTE | 2022-07-23 08:54 | HO.ANESPROP2 ---
Documented by User: Ijeoma Ornelas NP 07/23/22 09:58 HPI - Anesthesia Eval Consult details Narrative: 61yo M for Left 2nd Toe Amputation Xarelto for afib s/p Left great toe debrid 02/2022 with GA-LMA 5 Last seen by cardiology 06/27/22, stable except PAD symptoms PMFSH Active Problems Active Problems: All Active Problems (Updated 02/01/22 @ 00:03 by Background Alexandrea) Diabetic osteomyelitis (Acute) Osteomyelitis (Acute) Leukocytosis (Acute) Past Medical History Medical History Afib Amputation of left great toe Asthma CAD (coronary artery disease) Cellulitis Diabetes DMII (diabetes mellitus, type 2) FHx: bilateral hip replacements Hyperglycemia Hypertension Lower limb amputation, great toe Orthopedic hardware present Family History Family History Other No family history of coronary artery disease Family history of problems with anesthesia: No Surgical History Surgical History H/O bilateral hip replacements History of amputation of great toe (01/07/22) History of ankle surgery History of back surgery History of neck surgery S/P quadruple vessel bypass History of Problems with Anesthesia: No Social History Social History Household Members: Family Housing: Apartment Are you a primary home care coordinator to a significant other at home: No Do you presently have visiting nurse or other home services: No Alcohol intake: never Patient Tobacco Use Status: Former Tobacco user Tobacco use type: Cigarette Second Hand Smoke Exposure: No Use of substances other than those prescribed or required for medical reasons: No Are you DNR?: No Advance Directives: Yes Advance Directives Information Provided: No Advance Directives on File: Yes Advance Directives Date on File: 01/04/22 service: Yes Current occupational status: retired Meds Allergies Allergy/AdvReac Type Severity Reaction Status Date / Time morphine AdvReac Intermediate Hallucinati Verified 07/18/22 14:25 ons Home Medications Medication Instructions Recorded Confirmed Last Taken Type ezetimibe 10 mg tablet 1 tab PO DAILY 01/03/22 05/28/22 01/02/22 History gabapentin 300 mg capsule 1 cap PO TID 01/03/22 07/10/22 01/02/22 History hydroxyzine HCl 10 mg tablet 2 tab PO QID PRN itch 01/03/22 05/28/22 Unknown History insulin glargine 100 unit/mL 50 unit subcut BID@01/03/22 07/10/22 01/02/22 History subcutaneous solution (Lantus U-100 Insulin) insulin lispro 100 unit/mL 30 unit subcut TIDAC 01/03/22 07/10/22 01/02/22 History subcutaneous solution isosorbide mononitrate 30 mg 1 tab PO QAM 01/03/22 05/28/22 01/02/22 History tablet,extended release 24 hr loratadine 10 mg tablet 1 tab PO DAILY 01/03/22 05/28/22 01/02/22 History losartan 25 mg tablet 1 tab PO DAILY 01/03/22 05/28/22 01/02/22 History meclizine 25 mg tablet 1 tab PO TID PRN dizziness 01/03/22 05/28/22 Unknown History metoprolol tartrate 25 mg tablet 1 tab PO BID 01/03/22 05/28/22 01/02/22 History montelukast 10 mg tablet 1 tab PO BEDTIME 01/03/22 05/28/22 01/02/22 History ondansetron HCl 4 mg tablet 1 tab PO TID PRN nausea 01/03/22 05/28/22 Unknown History oxycodone 20 mg tablet,crush 1 tab PO BID 01/03/22 05/28/22 01/02/22 History resistant,extended release 12 hr (OxyContin) oxycodone 5 mg tablet 2 tab PO Q4H 01/03/22 05/28/22 01/02/22 History pantoprazole 40 mg tablet,delayed 1 tab PO BID@0630,1630 01/03/22 05/28/22 01/02/22 History release quetiapine 25 mg tablet 0.5 tab PO BEDTIME 01/03/22 05/28/22 01/02/22 History rosuvastatin 40 mg tablet 1 tab PO BEDTIME 01/03/22 05/28/22 01/02/22 History thiamine HCl (vitamin B1) 100 mg 1 tab PO DAILY 03/08/1705/28/22 01/02/22 History tablet valacyclovir 1 gram tablet 2 tab PO BID 01/03/22 05/28/22 01/02/22 History venlafaxine 100 mg tablet 1 tab PO BID 01/03/22 05/28/22 01/02/22 History zolpidem 10 mg tablet 1 tab PO BEDTIME PRN insomnia 01/03/22 05/28/22 Unknown History rivaroxaban 20 mg tablet (Xarelto) 1 tab PO DAILY 07/23/22 07/23/22 Unknown History Exam Exam Date and Time: July 23, 2022 0854 Pertinent Lab Results Pertinent Lab Results: Laboratory Tests 04/17/22 04/17/22 12:50 Unknown WBC 7.6 Hgb 12.1 L Hct 35.8 L Plt Count 266 Sodium 137 Potassium 4.6 Chloride 106 Carbon Dioxide 24 BUN 10 Creatinine 0.76 Narrative Narrative: EKG 12/2021 Vent. Rate : 098 BPM ? ? Atrial Rate : 098 BPM ?? P-R Int : 198 ms? QRS Dur : 090 ms ? ? QT Int : 374 ms ? ? ? P-R-T Axes : 049 -13 081 degrees ?? QTc Int : 477 ms ? Normal sinus rhythm Possible old inferior infarct Non-specific intra-ventricular conduction delay When compared with ECG of 07-JAN-2022 09:04, No significant changes seen ECHO (per 06/2022 cardiac note) LVEF 50-55%, basal inferior septal moderately hypokinetic No PAH No signif valve disease Assessment and Plan Assessment Anesthesia Assessment: Chart Reviewed Final Anesthetic Review Family History of Problems with Anesthesia: No History of Problems with Anesthesia: No Documented by User: Kris Whipple MD 07/29/22 09:05 [facility] Past Medical History Medical History Afib Amputation of left great toe Asthma CAD (coronary artery disease) Cellulitis Diabetes DMII (diabetes mellitus, type 2) FHx: bilateral hip replacements Hyperglycemia Hypertension Lower limb amputation, great toe Orthopedic hardware present Family History Family History Other No family history of coronary artery disease Surgical History Surgical History H/O bilateral hip replacements History of amputation of great toe (01/07/22) History of ankle surgery History of back surgery History of neck surgery S/P quadruple vessel bypass Social History Social History Household Members: Family Housing: Apartment Are you a primary home care coordinator to a significant other at home: No Do you presently have visiting nurse or other home services: No Alcohol intake: never Patient Tobacco Use Status: Former Tobacco user Tobacco use type: Cigarette Second Hand Smoke Exposure: No Use of substances other than those prescribed or required for medical reasons: No Are you DNR?: No Advance Directives: Yes Advance Directives Information Provided: No Advance Directives on File: Yes Advance Directives Date on File: 01/04/22 service: Yes Current occupational status: retired Meds Allergies Allergy/AdvReac Type Severity Reaction Status Date / Time morphine AdvReac Intermediate Hallucinati Verified 07/18/22 14:25 ons Home Medications Medication Instructions Recorded Confirmed Last Taken Type ezetimibe 10 mg tablet 1 tab PO DAILY 01/03/22 05/28/22 01/02/22 History gabapentin 300 mg capsule 1 cap PO TID 01/03/22 07/10/22 01/02/22 History hydroxyzine HCl 10 mg tablet 2 tab PO QID PRN itch 01/03/22 05/28/22 Unknown History insulin glargine 100 unit/mL 50 unit subcut BID@01/03/22 07/10/22 01/02/22 History subcutaneous solution (Lantus U-100 Insulin) insulin lispro 100 unit/mL 30 unit subcut TIDAC 01/03/22 07/10/22 01/02/22 History subcutaneous solution isosorbide mononitrate 30 mg 1 tab PO QAM 01/03/22 05/28/22 01/02/22 History tablet,extended release 24 hr loratadine 10 mg tablet 1 tab PO DAILY 01/03/22 05/28/22 01/02/22 History losartan 25 mg tablet 1 tab PO DAILY 01/03/22 05/28/22 01/02/22 History meclizine 25 mg tablet 1 tab PO TID PRN dizziness 01/03/22 05/28/22 Unknown History metoprolol tartrate 25 mg tablet 1 tab PO BID 01/03/22 05/28/22 01/02/22 History montelukast 10 mg tablet 1 tab PO BEDTIME 01/03/22 05/28/22 01/02/22 History ondansetron HCl 4 mg tablet 1 tab PO TID PRN nausea 01/03/22 05/28/22 Unknown History oxycodone 20 mg tablet,crush 1 tab PO BID 01/03/22 05/28/22 01/02/22 History resistant,extended release 12 hr (OxyContin) oxycodone 5 mg tablet 2 tab PO Q4H 01/03/22 05/28/22 01/02/22 History pantoprazole 40 mg tablet,delayed 1 tab PO BID@0630,1630 01/03/22 05/28/22 01/02/22 History release quetiapine 25 mg tablet 0.5 tab PO BEDTIME 01/03/22 05/28/22 01/02/22 History rosuvastatin 40 mg tablet 1 tab PO BEDTIME 01/03/22 05/28/22 01/02/22 History thiamine HCl (vitamin B1) 100 mg 1 tab PO DAILY 01/03/22 05/28/22 01/02/22 History tablet valacyclovir 1 gram tablet 2 tab PO BID 01/03/22 05/28/22 01/02/22 History venlafaxine 100 mg tablet 1 tab PO BID 01/03/22 05/28/22 01/02/22 History zolpidem 10 mg tablet 1 tab PO BEDTIME PRN insomnia 01/03/22 05/28/22 Unknown History rivaroxaban 20 mg tablet (Xarelto) 1 tab PO DAILY 07/23/22 07/23/22 Unknown History Exam Airway Mallampati Class: II TM Dist: >3cm Denture: Upper and Lower Heart: rrr with pvc's Lungs: clear Assessment and Plan Final Anesthetic Review NPO: Yes ASA Class: IV Final Preanesthetic Review: No Changes in Pt Med Stat, Meds/Allgs Chart Reviewed, Consent Obtained/Reviewed and Anes Risks/Benef Reviewed Patient Risk: Intermediate Procedure Risk: Low Anesthetic Plan Anesthetic Plan: GA Disposition: Standard PACU
[2022-07-29] VITALS (11 sets, daily range): BP systolic 126–169; BP diastolic 60–85; PULSE 80–98; RESP 14–20; TEMP 36.1–36.6; O2SAT 95–99; BMI 41.8
[2022-07-29 08:47] LABS: Glucose, Whole Blood 284 mg/dL (60-115)
--- NOTE | 2022-07-29 08:51 | MHC.SHP ---
Pre-Procedural Eval Section A Date of Service: 07/29/22 The patient is an INPATIENT: No Changes since office visit: Yes Patient answered all questions; No Cold of Flu in the past 2 weeks, No New Medical Problems and No Changes in Medication The History & Physical has been completed within 30 days and I have reviewed it.: Yes Section B Chief Complaint: Osteomyelitis, unspecified,Type 2 diabetes mellitu Allergies: Allergies Allergy/AdvReac Type Severity Reaction Status Date / Time morphine AdvReac Intermediate Hallucinati Verified 07/18/22 14:25 ons Plan Diagnosis/Plan: Unchanged I have reviewed the history and physical and performed a pertinent physical examination on my patient. No changes have occurred unless specified.
--- NOTE | 2022-07-29 09:02 | PC.NURSE ---
POC 284, tigerconnect sent to Dr. Whipple. Dr. Whipple at bedside to examine patient. no new orders at this time.
--- NOTE | 2022-07-29 10:05 | W.PM.OPN ---
Operative Note Operative Note Date of Service: 07/29/22 Narrative: Preoperative diagnosis: osteomyelitis left 2nd toe Postoperative diagnosis: same Procedure: amputation left 2nd toe Surgeon: Pawel Hinton MD [employer] Chief: DAO Bocanegra Anesthesia: general LMA Indications for procedure: 61-year-old male patient with history of diabetes and previous amputation of the left great toe due to osteomyelitis now with a nonhealing ulcer of the left 2nd toe Operative findings: nonhealing ulcer of the left 2nd toe due to osteomyelitis Specimen: 2nd toe left foot Estimated blood loss: 5 mL Complications: none Procedure details: patient was brought to the OR placed in a supine position. After administering general anesthesia the patient's left foot was prepped with Betadine and draped in a sterile fashion. A surgical time-out was called the consent confirmed. Patient received preoperative antibiotics and Venodyne boots were in place. A digital block was performed using 0.5% Sensorcaine. Elliptical incision was then created and extended up over the dorsum of the foot over they distal metatarsal. Dissection was continued down to bone using electrocautery. Periosteal elevator was used to elevate the periosteum over the distal metatarsal. A bone cutter was then used to divide the distal metatarsal head. Rongeur wasa then used to smooth the edges. hemostasis was assured using electrocautery. Wounds were then irrigated with saline solution and suctioned dry. Deep subcutaneous tissue and dermis were then reapproximated using interrupted 3-0 Polysorb sutures. Skin was then closed using interrupted 3-0 nylon sutures. Sterile dressings consisting of fluff gauze, Kerlix followed by Saúl was then applied. The patient tolerated the procedure well. Sponge, instrument, and needle counts reported as correct. Patient was transferred to PACU in stable condition.
[2022-07-29] MEDS: fentaNYL citrate/PF 100 MCG/2 ML VIAL 25 MCG IVPUSH ×4 (10:13→10:30)
[2022-07-29] MEDS: oxyCODONE HCl Immed Release 5 MG TABLET PO (10:25)
== END 2022-07-29 12:14 | disposition home or self-care (01) ==
PROVIDERS: Visit Provider Surgery
PROC: (CPT 28810; principal; 2022-07-29 09:10)
DX: E11.69 Type 2 diabetes mellitus with other specified complication (principal); M86.9 Osteomyelitis, unspecified; E11.621 Type 2 diabetes mellitus with foot ulcer; L97.528 Non-pressure chronic ulcer of other part of left foot with other specified severity; E11.65 Type 2 diabetes mellitus with hyperglycemia; M79.89 Other specified soft tissue disorders; Z89.412 Acquired absence of left great toe; J45.909 Unspecified asthma, uncomplicated; I48.91 Unspecified atrial fibrillation; I25.10 Atherosclerotic heart disease of native coronary artery without angina pectoris; I10 Essential (primary) hypertension; Z95.1 Presence of aortocoronary bypass graft; Z96.643 Presence of artificial hip joint, bilateral; Z79.4 Long term (current) use of insulin; Z79.01 Long term (current) use of anticoagulants; Z79.899 Other long term (current) drug therapy; Z88.8 Allergy status to other drugs, medicaments and biological substances; Z87.891 Personal history of nicotine dependence
CPT/HCPCS: 28810; 82947; 88305; 88311; J0690; J1100; J2250; J2405; J3010

== ENCOUNTER 2022-08-03 16:21 | Inpatient (IN) | payer MEDICAID, SELFPAY ==
--- NOTE | ~2022-08-03 | IR_ITS ---
PROCEDURE: IR INSERTION OF PICC CLINICAL INFORMATION: Needs long-term IV antibiotics. COMPARISON: None TECHNIQUE: Following explaining ultrasound fluoroscopy-guided placement of PICC catheter procedure, benefits and risk, a written consent was obtained. Patient was placed supine on fluoroscopy table in angio suite and preliminary ultrasound imaging was obtained through the right arm. An optimal site was selected above the elbow and marked. The marked site was cleaned and draped in usual sterile manner with 2% chlorhexidine solution. 1% lidocaine was injected at puncture site. A single wall needle was then advanced under sterile ultrasound guidance and right basilic vein was punctured. After obtaining venous return a thin guidewire was advanced through the needle and needle withdrawn. A 5 Pakistani dilator sheath was advanced over the wire. The small guidewire was removed and a 0.035 J-wire was advanced and placed in IVC. A precut single-lumen 5 Pakistani PICC catheter was then advanced over the guidewire and through a peel-away sheath after removing the dilator. The catheter was advanced under fluoroscopy and placed at the junction of right jugular and subclavian veins. A single image was obtained for documentation. The catheter was flushed with heparinized saline. Sterile dressing applied at the puncture site. Patient tolerated procedure extremely well. All elements of maximal sterile barrier technique followed including use of cap, mask, sterile gown, sterile gloves, a sterile full body drape and hand hygiene. Also followed skin preparation with 2% chlorhexidine for cutaneous antisepsis, and sterile ultrasound preparation with sterile gel and probe cover when applicable. FINDINGS: On preliminary ultrasound imaging there are widely patent right jugular and subclavian veins. Approximately 40 cm long single lumen 5 Pakistani catheter was placed at junction of right jugular and subclavian veins. The catheter is ready for use. C-arm fluoroscopy was utilized. IR/IR cvc insert peripheral IMPRESSION: Successful fluoroscopy and ultrasound-guided placement of a 5 Pakistani right PICC catheter 40 cm long with its tip at the junction of right jugular and subclavian veins. Fluoroscopy time 0.4 minutes.
--- NOTE | ~2022-08-03 | US_ITS ---
EXAMINATION: NONINVASIVE ASSESSMENT OF THE ARTERIES OF BOTH LOWER EXTREMITIES INCLUDING PVR EXAM AND BILATERAL LOWER EXTREMITY DUPLEX CLINICAL INFORMATION: Nonhealing ulcer COMPARISON: None TECHNIQUE: Ankle pulse volume recordings, ankle pressure measurements and ankle brachial indices were obtained of the lower extremity arterial system bilaterally in addition to duplex Doppler techniques with wave form analysis and measurement of velocities in the common femoral, profunda femoral, superficial femoral, popliteal, tibial and peroneal arteries. The study was performed only at rest. FINDINGS: RIGHT LEG 1. Right Ankle-Brachial Index: 1.34 (higher of the DP/PT) >0.97-1.25 = normal - no significant arterial disease 0.75-0.96 = mild peripheral arterial disease 0.5-0.74 = moderate peripheral arterial disease <0.50 = severe peripheral arterial disease <0.30 = critical arterial disease 2. Segmental Pressures (mmHg): Brachial: 157 Ankle: PT 211, DP 206 3. PVR Waveforms: Ankle: Abnormal 4. Direct Duplex: Common femoral artery: 181 cm/s, Multiphasic Profunda femoris artery: 283 cm/s, Multiphasic Superficial femoral artery (proximal): 112 cm/s, Multiphasic Superficial femoral artery (mid): 96.7 cm/s, Multiphasic Superficial femoral artery (distal): 129 cm/s, Multiphasic Proximal Popliteal artery: 71.9 cm/s, Multiphasic Distal popliteal artery: 66.4 cm/s, Multiphasic Distal posterior tibial artery: 102 cm/s, Multiphasic Peroneal artery: 42.8 cm/s, Multiphasic LEFT LE. Left Ankle-Brachial Index: 1.34 (higher of the DP/PT) >0.97-1.25 = normal - no significant arterial disease 0.75-0.96 = mild peripheral arterial disease 0.5-0.74 = moderate peripheral arterial disease <0.50 = severe peripheral arterial disease <0.30 = critical arterial disease 2. Segmental Pressures: Brachial: 149 Ankle: PT 210, DP 204 3. PVR Waveforms: Ankle: Normal 4. Direct Duplex: Common femoral artery: 149 cm/s, Multiphasic Profunda femoris artery: 86.8 cm/s, Multiphasic Superficial femoral artery (proximal): 123 cm/s, Multiphasic Superficial femoral artery (mid): 127 cm/s, Multiphasic Superficial femoral artery (distal): 116 cm/s, Multiphasic Proximal Popliteal artery: 119 cm/s, Multiphasic Distal popliteal artery: 97.9 cm/s, Multiphasic Distal posterior tibial artery: 117 cm/s, monophasic Peroneal artery: No Doppler signal US/US arterial duplex LE BI IMPRESSION: The FLORA is 1.34 on the right and left, likely secondary to calcified, noncompressible vessels. On the right there is focal elevated velocity at the origin of the profunda femoris suggesting at least a moderate stenosis. On the left there is monophasic flow within the posterior tibial arteries and no demonstrable Doppler signal within the peroneal artery. Uncertain if this is secondary to occlusion or dense calcification of the vessels. Correlation with toe brachial index may be helpful.
[2022-08-03 17:11] VITALS: BP 145/75; PULSE 91; RESP 18; TEMP 36.6; O2SAT 95; BMI 41.8
--- NOTE | 2022-08-03 23:42 | ED.WOUNDLAC ---
HPI - Wound/Laceration General Chief Complaint: Wound/Laceration Stated Complaint: amputated toe may be infected Time Seen by Provider: 08/03/22 23:25 Source: patient Mode of arrival: ambulatory Limitations: no limitations History of Present Illness HPI narrative: Patient comes to the emergency room complaining of increased pain, redness and swelling in his left foot. Patient had a 2nd toe amputation surgery 5 days ago. Patient states that for the 1st 4 days, he seemed to be doing well, but this afternoon the pain started increasing suddenly, the foot became red, now he cannot tolerate the pain. Patient states that he has VNA services coming at home to change the dressings. Patient denies any fever chills. Patient complaining of worsening pain locally. Related Data Home Medications Medication Instructions Recorded Confirmed ezetimibe 10 mg tablet 1 tab PO DAILY 01/03/22 05/28/22 gabapentin 300 mg capsule 1 cap PO TID 01/03/22 07/10/22 hydroxyzine HCl 10 mg tablet 2 tab PO QID PRN itch 01/03/22 05/28/22 insulin glargine 100 unit/mL 50 unit subcut BID@01/03/22 07/10/22 subcutaneous solution (Lantus U-100 Insulin) insulin lispro 100 unit/mL 30 unit subcut TIDAC 01/03/22 07/10/22 subcutaneous solution isosorbide mononitrate 30 mg 1 tab PO QAM 01/03/22 05/28/22 tablet,extended release 24 hr loratadine 10 mg tablet 1 tab PO DAILY 01/03/22 05/28/22 losartan 25 mg tablet 1 tab PO DAILY 01/03/22 05/28/22 meclizine 25 mg tablet 1 tab PO TID PRN dizziness 01/03/22 05/28/22 metoprolol tartrate 25 mg tablet 1 tab PO BID 01/03/22 05/28/22 montelukast 10 mg tablet 1 tab PO BEDTIME 01/03/22 05/28/22 ondansetron HCl 4 mg tablet 1 tab PO TID PRN nausea 01/03/22 05/28/22 oxycodone 20 mg tablet,crush 1 tab PO BID 01/03/22 05/28/22 resistant,extended release 12 hr (OxyContin) oxycodone 5 mg tablet 2 tab PO Q4H 01/03/22 05/28/22 pantoprazole 40 mg tablet,delayed 1 tab PO BID@0630,1630 01/03/22 05/28/22 release quetiapine 25 mg tablet 0.5 tab PO BEDTIME 01/03/22 05/28/22 rosuvastatin 40 mg tablet 1 tab PO BEDTIME 01/03/22 05/28/22 thiamine HCl (vitamin B1) 100 mg 1 tab PO DAILY 01/03/22 05/28/22 tablet valacyclovir 1 gram tablet 2 tab PO BID 01/03/22 05/28/22 venlafaxine 100 mg tablet 1 tab PO BID 01/03/22 05/28/22 zolpidem 10 mg tablet 1 tab PO BEDTIME PRN insomnia 01/03/22 05/28/22 rivaroxaban 20 mg tablet (Xarelto) 1 tab PO DAILY 07/23/22 07/23/22 Previous Rx's Medication Instructions Recorded walker #1 ea 01/11/22 walker #1 ea 01/15/22 Band-Aid Gauze Pads 4 X 4 #25 ea 04/16/22 bandage (gauze bandage) elastic bandage 6 X 1.8 yard #6 ea 04/16/22 off loading boot (Aircast off #1 ea 04/16/22 loading boot) calcium alginate ag #5 ea 04/23/22 sterile gauze #40 ea 04/23/22 doxycycline hyclate 100 mg tablet 100 mg PO BID #28 tabs 07/09/22 Allergies Allergy/AdvReac Type Severity Reaction Status Date / Time morphine AdvReac Intermediate Hallucinati Verified 08/03/22 17:10 ons Review of Systems Review of Systems: Constitutional : No Weight loss, No Fever, No Chills, No Night Sweats, No Fatigue, No Malaise ENT/Mouth : No Hearing loss, No Ear Pain, No Nasal Congestion, No Sinus Pain, No Hoarseness, No sore throat, No Rhinorrhea, No Swallowing Difficulty Eyes: No Eye Pain, No Swelling, No Redness, No Foreign Body, No Discharge, No Vision Changes Cardiovascular : No Chest Pain, No SOB, No Dyspnea on Exertion, No Orthopnea, No Edema, No Palpitations Respiratory : No Cough, No Sputum, No Wheezing, No Smoke Exposure, No Dyspnea Gastrointestinal : No Nausea, No Vomiting, No Diarrhea, No Constipation, No abdominal Pain, No Hematochezia, No Melena Genitourinary : no irregular bleeding, No Dysuria, No Urinary Frequency, No Hematuria, No Urinary Incontinence, No Urgency, No Flank Pain, No Urinary Flow Changes, No Hesitancy Musculoskeletal : No joint pain, No Myalgias, complaining of pain around the surgical site Skin : No Skin Lesions, No rash Neuro : No Weakness, No Numbness, No Paresthesias, No Loss of Consciousness, No Dizziness, No Headache Psych : No Anxiety/Panic, No Depression, No SI/HI/AH/VH, No Social Issues, Heme/Lymph: No Bruising, No Bleeding,No Lymphadenopathy Endocrine : No Polyuria, No Polydipsia, No Temperature Intolerance [facility] Past Medical History Medical History Afib Amputation of left great toe Asthma CAD (coronary artery disease) Cellulitis Diabetes DMII (diabetes mellitus, type 2) FHx: bilateral hip replacements Hyperglycemia Hypertension Lower limb amputation, great toe Orthopedic hardware present Surgical History H/O bilateral hip replacements History of amputation of great toe (01/07/22) History of ankle surgery History of back surgery History of neck surgery S/P quadruple vessel bypass Family History Family History Other No family history of coronary artery disease Social History Social History Household Members: Family Housing: Apartment Are you a primary child care center administrator to a significant other at home: No Do you presently have visiting nurse or other home services: No Alcohol intake: never Patient Tobacco Use Status: Former Tobacco user Tobacco use type: Cigarette Second Hand Smoke Exposure: No Advance Directives: Yes Advance Directives on File: Yes Advance Directives Date on File: 01/04/22 service: Yes Current occupational status: retired Physical Exam Vital Signs: Vital Signs: Last Vital Signs Temp 98.7 F 08/04/22 00:41 Pulse 88 08/04/22 00:41 Resp 18 08/04/22 00:41 BP 149/71 H 08/04/22 00:41 Pulse Ox 97 08/04/22 00:41 O2 Del Method 08/04/22 00:41 BMI result Body Mass Index 41.8 Const: Other: Appearance: Alert. Oriented X3. No acute distress. Eyes: Pupils equal, round and reactive to light. ENT: Pharynx normal. Neck: Normal inspection. Neck supple. No lymph nodes noted. No crepitus CVS: Normal heart rate and rhythm. Pulses normal. Normal S1 and S2 Respiratory: No respiratory distress. Breath sounds normal. No Wheezing. No rales Abdomen: Soft and nontender. No rigidity. No distention. Skin: Skin warm and dry. Normal skin color. Normal skin turgor. Extremities: No lower extremity edema. Patient's surgical sign is erythematous, scant serosanguineous drainage, pain to touch up to 4 cm around the surgical site Neuro: Oriented X 3. No motor deficit. No sensory deficit. Moving all extremities. No slurred speech. CN 2 through 12 grossly intact Psych: calm, cooperative, normal affect Course Course Course Narrative: Patient does not have a fever, blood pressure is normal, sepsis is not suspected. Patient is being covered with vancomycin. IV fluids were started based on ideal weight of 64 kg. Patient states that he does not do well with morphine, states that only Dilaudid helps. All of patient's labs and CT scan of the foot are pending Patient's white blood cell count and lactic are elevated. Patient has no fever, no hypotension. CT scan shows possible small abscess under the surgical site, possible osteomyelitis. Patient has already been treated with antibiotics as mentioned above. I discussed the patient with Dr. Colin, pt being admitted, patient will need a surgical consult in the morning. MDM - Wound/Laceration Lab Data Result diagrams: 08/04/22 00:19 08/04/22 00:49 Labs: Lab Results 08/04/22 08/04/22 08/04/22 Range/Units 00:19 00:19 00:19 WBC 12.4 H (4.8-10.8) X10*3/uL RBC 4.35 L (4.60-5.80) X10*6/uL Hgb 12.6 L (14.0-18.0) g/dl Hct 37.2 L (42.0-52.0) % MCV 85.5 (80.0-98.0) fL MCH 29.0 (27.0-33.0) pg MCHC 33.9 (31.0-36.0) g/dl RDW 13.2 (11.0-16.0) % Plt Count 250 (160-400) X10*3/uL MPV 10.7 (9.4-12.4) fL Immature Gran % (Auto) 0.5 H (0.0-0.4) % Neut % (Auto) 61.2 (45-73) % Lymph % (Auto) 26.2 (20-40) % Levy % (Auto) 10.6 (2-11) % Eos % (Auto) 1.2 (0-4) % Baso % (Auto) 0.3 (0-2) % Lymph # (Auto) 3.2 (1.2-4.9) X10*3/uL Levy # (Auto) 1.3 H (0.1-1.2) X10*3/uL Eos # (Auto) 0.2 (0.0-0.4) X10*3/uL Baso # (Auto) 0.0 (0.0-0.2) X10*3/uL Abs Immat Gran (auto) 0.06 H (0.00-0.03) X10*3/uL Absolute Neuts (auto) 7.6 (2.0-8.3) x10*3/uL Absolute Nucleated RBC 0.000 (0.0-0.012) X10*3/uL Nucleated RBC % (auto) 0.0 (0.0-0.2) /100WBC ESR 49 H (0-15) MM/HR Sodium Potassium Chloride Carbon Dioxide Anion Gap BUN Creatinine Estim Creat Clear Calc Estimated GFR Random Glucose Lactic Acid 2.2 H* (0.5-2.0) mmol/L Calcium C-Reactive Protein (< or = 0.50) mg/dL 08/04/22 08/04/22 Range/Units 00:49 00:49 WBC (4.8-10.8) X10*3/uL RBC (4.60-5.80) X10*6/uL Hgb (14.0-18.0) g/dl Hct (42.0-52.0) % MCV (80.0-98.0) fL MCH (27.0-33.0) pg MCHC (31.0-36.0) g/dl RDW (11.0-16.0) % Plt Count (160-400) X10*3/uL MPV (9.4-12.4) fL Immature Gran % (Auto) (0.0-0.4) % Neut % (Auto) (45-73) % Lymph % (Auto) (20-40) % Levy % (Auto) (2-11) % Eos % (Auto) (0-4) % Baso % (Auto) (0-2) % Lymph # (Auto) (1.2-4.9) X10*3/uL Levy # (Auto) (0.1-1.2) X10*3/uL Eos # (Auto) (0.0-0.4) X10*3/uL Baso # (Auto) (0.0-0.2) X10*3/uL Abs Immat Gran (auto) (0.00-0.03) X10*3/uL Absolute Neuts (auto) (2.0-8.3) x10*3/uL Absolute Nucleated RBC (0.0-0.012) X10*3/uL Nucleated RBC % (auto) (0.0-0.2) /100WBC ESR (0-15) MM/HR Sodium Cancelled 136 Potassium Cancelled 3.7 Chloride Cancelled 102 Carbon Dioxide Cancelled 21 L Anion Gap Cancelled 17 BUN Cancelled 8 L Creatinine Cancelled 0.78 Estim Creat Clear Calc Cancelled 127.9 Estimated GFR Cancelled > 60 Random Glucose Cancelled 187 H Lactic Acid (0.5-2.0) mmol/L Calcium Cancelled 9.0 C-Reactive Protein 8.69 H (< or = 0.50) mg/dL Discharge Plan Discharge Clinical Impression: Osteomyelitis, Cellulitis and abscess of foot Patient Disposition: Admitted As Inpatient Prescriptions: No Action (DME) walker Misc See Rx Instructions .Route Qty: 1 0RF Rx Instructions: As directed (DME) Aircast off loading boot Kit See Rx Instructions .Route Qty: 1 0RF Rx Instructions: As directed (DME) elastic bandage 6 X 1.8 -yard bandage See Rx Instructions .Route Qty: 6 0RF Rx Instructions: As directed (DME) gauze bandage [Band-Aid Gauze Pads] 4 X 4 bandage See Rx Instructions .Route Qty: 25 3RF Rx Instructions: As directed (DME) sterile gauze 4x4 See Rx Instructions .Route .MEDSUPPLY Qty: 40 3RF Rx Instructions: Apply to left foot wound every other day (DME) calcium alginate ag 4x4 pad See Rx Instructions .Route .MEDSUPPLY Qty: 5 2RF Rx Instructions: Apply to wound beds every other day quetiapine 25 mg tablet 0.5 tab PO BEDTIME Lantus U-100 Insulin 100 unit/mL solution 50 unit subcut BID@12,22 Rx Instructions: 50 units at lunch and 100 units at bedtime valacyclovir 1 gram tablet 2 tab PO BID Rx Instructions: 1 more tablet left of 2 day course isosorbide mononitrate 30 mg tablet extended release 24 hr 1 tab PO QAM thiamine HCl (vitamin B1) 100 mg tablet 1 tab PO DAILY venlafaxine 100 mg tablet 1 tab PO BID pantoprazole 40 mg tablet,delayed release (DR/EC) 1 tab PO BID@0630,1630 losartan 25 mg tablet 1 tab PO DAILY gabapentin 300 mg capsule 1 cap PO TID montelukast 10 mg tablet 1 tab PO BEDTIME insulin lispro 100 unit/mL solution 30 unit subcut TIDAC zolpidem 10 mg tablet 1 tab PO BEDTIME PRN (Reason: insomnia) hydroxyzine HCl 10 mg tablet 2 tab PO QID PRN (Reason: itch) loratadine 10 mg tablet 1 tab PO DAILY oxycodone 5 mg tablet 2 tab PO Q4H ezetimibe 10 mg tablet 1 tab PO DAILY rosuvastatin 40 mg tablet 1 tab PO BEDTIME metoprolol tartrate 25 mg tablet 1 tab PO BID oxycodone [OxyContin] 20 mg tablet,oral only,ext.rel.12 hr 1 tab PO BID ondansetron HCl 4 mg tablet 1 tab PO TID PRN (Reason: nausea) meclizine 25 mg tablet 1 tab PO TID PRN (Reason: dizziness) (DME) walker Misc See Rx Instructions .Route Qty: 1 0RF Rx Instructions: As directed Xarelto 20 mg tablet 1 tab PO DAILY doxycycline hyclate 100 mg tablet 100 mg PO BID Qty: 28 0RF
[2022-08-04] VITALS (8 sets, daily range): BP systolic 112–184; BP diastolic 56–96; PULSE 72–99; RESP 15–24; TEMP 36.1–37.1; O2SAT 94–99
[2022-08-04] MEDS: HYDROmorphone HCl 1 MG/ML SYRINGE IVPUSH ×2 (00:14→01:30)
[2022-08-04 00:29] LABS: MANUAL DIFF FLAG NO
[2022-08-04 00:38] LABS: Basophils Percent Auto 0.3 % (0-2); Eosinophils Absolute Auto 0.2 X10*3/uL (0.0-0.4); Eosinophils Percent Auto 1.2 % (0-4); Hematocrit 37.2 % (42.0-52.0); Hemoglobin 12.6 g/dl (14.0-18.0); Imm Gran Abs Auto 0.06 X10*3/uL (0.00-0.03); Imm Gran Pct Auto 0.5 % (0.0-0.4); Lymphocytes Absolute Auto 3.2 X10*3/uL (1.2-4.9); Lymphocytes Percent Auto 26.2 % (20-40); Mean Corpuscular HGB Conc 33.9 g/dl (31.0-36.0); Mean Corpuscular Volume 85.5 fL (80.0-98.0); Mean Platelet Volume 10.7 fL (9.4-12.4); Monocytes Absolute Auto 1.3 X10*3/uL (0.1-1.2); Monocytes Percent Auto 10.6 % (2-11); Neutrophils Absolute Auto 7.6 x10*3/uL (2.0-8.3); Neutrophils Percent Auto 61.2 % (45-73); Platelet Count 250 X10*3/uL (160-400); Red Blood Count 4.35 X10*6/uL (4.60-5.80); Red Cell Distribution Width 13.2 % (11.0-16.0); White Blood Count 12.4 X10*3/uL (4.8-10.8)
[2022-08-04 00:46] LABS: Lactic Acid 2.2 mmol/L (0.5-2.0)
[2022-08-04 01:09] LABS: Erythrocyte Sedimentation Rate 49 MM/HR (0-15)
[2022-08-04 01:14] LABS: Anion Gap 17 (12-20); Blood Urea Nitrogen 8 mg/dL (9-16); C Reactive Protein 8.69 mg/dL (< or = 0.50); Carbon Dioxide 21 mmol/L (22-29); Chloride 102 mmol/L (96-108); Creatinine Clr Calc Pharmacy 127.9; Estimated Glomerular Filt Rate > 60; Glucose Random 187 mg/dL (60-115); Potassium 3.7 mmol/L (3.3-5.1); Sodium 136 mmol/L (135-145)
[2022-08-04 01:19] LABS: Influenza A PCR NEGATIVE (Negative); Influenza B PCR NEGATIVE (Negative); Resp Syncy Virus RNA Qual PCR NEGATIVE (Negative); SARS COV2 PCR INHOUSE NEGATIVE (Negative)
--- NOTE | 2022-08-04 01:34 | PC.NURSE ---
Pt. alert and oriented. Pt's toe is red and painful, c/o pain at 10/10. Pt. visibly shaking from the pain. Medicated with dilaudid per the MAR. Pt. resting in bed.
[2022-08-04] MEDS: 0.9 % Sodium Chloride 2,000 ML 999 ML IVCONT (02:12)
[2022-08-04 02:25] LABS: Reflex Lactate? Lactic Acid Added
[2022-08-04 03:12] LABS: ~Lactic Acid-LAB USE ONLY 1.1 mmol/L (0.5-2.0)
[2022-08-04] MEDS: Piperacillin Sodium/Tazobactam 3.375 GM in 0.9 % Sodium Chloride 50 ML IV ×4 (03:12→20:47)
[2022-08-04] MEDS: Enoxaparin Sodium 40 MG/0.4 ML SYRINGE SUBCUT (03:13)
[2022-08-04] MEDS: HYDROmorphone HCl 1 MG/ML SYRINGE 0.5 MG IVPUSH ×5 (03:25→22:03)
--- NOTE | 2022-08-04 04:35 | PC.NURSE ---
Moved pt. to bed 3 in overflow.
--- NOTE | 2022-08-04 06:29 | PM.IMHP ---
History of Present Illness Date of Service: 08/04/22 Chief Complaint: foot swelling , pain 61-year-old male with past medical history of diabetes, osteomyelitis of left great toe status post amputation, hypertension, CAD, AFib, on Xarelto, asthma, GERD, who had underwent left great toe amputation due to osteomyelitis sometime in February, underwent a 2nd amputation on July 29 for the 2nd toe of the left foot due to nonhealing diabetic wound/osteomyelitis of that toe not responding to antibiotics returns to the hospital today stating increased swelling, erythema and pain in his left foot. He states that he was doing well post surgery and but the day of presentation he started to have increased redness and swelling as well as significant 10/10 pain in his foot to the point that he couldn't tolerate it and came to the hospital. He denies any fever chills, no chest pain, no shortness of breath, no abdominal pain nausea or vomiting, no diarrhea or constipation, no urinary symptoms. Patient was previously on doxycycline prior to amputation. On arrival to the ED patient hemodynamically stable with no significant abnormal vitals Labs are significant for WBC count of 12.4, hemoglobin of 12.6, hematocrit of 37.2, ESR 49, lactic acid of 2.2 which resolved after IV fluids, CRP of 8.69, For CT shows soft tissue swelling near the amputation site of the distal 1st and 2nd metatarsals, concern for a small abscess, cortical irregularity at the tip of the meaning 1st metatarsal which can be seen with osteomyelitis. Patient started on IV antibiotics and will be admitted for further management Review of Systems Review of Systems: Yes all other systems are reviewed and are negative [facility] Medical History Afib Amputation of left great toe Asthma CAD (coronary artery disease) Cellulitis Diabetes DMII (diabetes mellitus, type 2) FHx: bilateral hip replacements Hyperglycemia Hypertension Lower limb amputation, great toe Orthopedic hardware present Family History Other No family history of coronary artery disease Surgical History H/O bilateral hip replacements History of amputation of great toe (01/07/22) History of ankle surgery History of back surgery History of neck surgery S/P quadruple vessel bypass Social History Household Members: Family Housing: Apartment Are you a primary neonatal intensive care unit nurse to a significant other at home: No Do you presently have visiting nurse or other home services: No Alcohol intake: never Patient Tobacco Use Status: Former Tobacco user Tobacco use type: Cigarette Second Hand Smoke Exposure: No Advance Directives: Yes Advance Directives on File: Yes Advance Directives Date on File: 01/04/22 service: Yes Current occupational status: retired Meds Allergies Allergy/AdvReac Type Severity Reaction Status Date / Time morphine AdvReac Intermediate Hallucinati Verified 08/03/22 17:10 ons Active Medications: Current Medications Acetaminophen (Acetaminophen 325 Mg Tablet) 650 mg PO Q6H PRN PRN Reason: Pain, Mild (Pain Scale 1-3) Enoxaparin Sodium (Enoxaparin Sodium 40 Mg/0.4 Ml Syringe) 40 mg SUBCUT Q24H [facility] Last Admin: 08/04/22 03:13 Dose: 40 mg Hydromorphone HCl (Hydromorphone Hcl 1 Mg/Ml Syringe) 0.5 mg IVPUSH Q4H PRN; Protocol PRN Reason: Pain, Severe (Pain Scale 7-10) Last Admin: 08/04/22 03:25 Dose: 0.5 mg Piperacillin Sod/Tazobactam (Sod 3.375 gm/ Sodium Chloride) 50 mls @ 100 mls/hr IV Q6H [facility] Last Infusion: 08/04/22 04:45 Dose: Infused Vancomycin HCl 1,500 mg/ (Sodium Chloride) 500 mls @ 333.333 mls/hr IV Q12H [facility] Ondansetron HCl (Ondansetron Hcl 4 Mg/2 Ml Vial) 4 mg IVPUSH Q8H PRN PRN Reason: Nausea and Vomiting Pharmacy Consult (Consult Rx Vancomycin Dosing) 1 each MISCELLANE DAILY PRN PRN Reason: Consult order Pharmacy Consult (Consult Rx Vancomycin Dosing) 1 each MISCELLANE DAILY PRN PRN Reason: Consult order Sodium Chloride (0.9 % Sodium Chloride Flush 3 Ml Syringe) 3 [facility] Home Medications Medication Instructions Recorded Confirmed Last Taken Type ezetimibe 10 mg tablet 1 tab PO DAILY 01/03/22 05/28/22 01/02/22 History gabapentin 300 mg capsule 1 cap PO TID 01/03/22 07/10/22 01/02/22 History hydroxyzine HCl 10 mg tablet 2 tab PO QID PRN itch 01/03/22 05/28/22 Unknown History insulin glargine 100 unit/mL 50 unit subcut BID@01/03/22 07/10/22 01/02/22 History subcutaneous solution (Lantus U-100 Insulin) insulin lispro 100 unit/mL 30 unit subcut TIDAC 01/03/22 07/10/22 01/02/22 History subcutaneous solution isosorbide mononitrate 30 mg 1 tab PO QAM 01/03/22 05/28/22 01/02/22 History tablet,extended release 24 hr loratadine 10 mg tablet 1 tab PO DAILY 01/03/22 05/28/22 01/02/22 History losartan 25 mg tablet 1 tab PO DAILY 01/03/22 05/28/22 01/02/22 History meclizine 25 mg tablet 1 tab PO TID PRN dizziness 01/03/22 05/28/22 Unknown History metoprolol tartrate 25 mg tablet 1 tab PO BID 01/03/22 05/28/22 01/02/22 History montelukast 10 mg tablet 1 tab PO BEDTIME 01/03/22 05/28/22 01/02/22 History ondansetron HCl 4 mg tablet 1 tab PO TID PRN nausea 01/03/22 05/28/22 Unknown History oxycodone 20 mg tablet,crush 1 tab PO BID 01/03/22 05/28/22 01/02/22 History resistant,extended release 12 hr (OxyContin) oxycodone 5 mg tablet 2 tab PO Q4H 01/03/22 05/28/22 01/02/22 History pantoprazole 40 mg tablet,delayed 1 tab PO BID@0630,1630 01/03/22 05/28/22 01/02/22 History release quetiapine 25 mg tablet 0.5 tab PO BEDTIME 01/03/22 05/28/22 01/02/22 History rosuvastatin 40 mg tablet 1 tab PO BEDTIME 01/03/22 05/28/22 01/02/22 History thiamine HCl (vitamin B1) 100 mg 1 tab PO DAILY 01/03/22 05/28/22 01/02/22 History tablet valacyclovir 1 gram tablet 2 tab PO BID 01/03/22 05/28/22 01/02/22 History venlafaxine 100 mg tablet 1 tab PO BID 01/03/22 05/28/22 01/02/22 History zolpidem 10 mg tablet 1 tab PO BEDTIME PRN insomnia 01/03/22 05/28/22 Unknown History rivaroxaban 20 mg tablet (Xarelto) 1 tab PO DAILY 07/23/22 07/23/22 Unknown History Physical Exam Vital Signs and Narrative: Vital Signs: Last Vital Signs Temp 98.0 F 08/04/22 04:49 Pulse 88 08/04/22 04:49 Resp 18 08/04/22 04:49 BP 126/69 08/04/22 04:49 Pulse Ox 98 08/04/22 04:49 O2 Del Method 08/04/22 04:49 BMI result Body Mass Index 41.8 Const: General: cooperative and no acute distress Orientation/consciousness: patient oriented x3 Eyes: General: appearance normal, both eyes and all related structures Resp: Effort & Inspection: normal respiratory effort Auscultation: clear to auscultation bilaterally Cardio: Rate: regular rate Rhythm: regular rhythm GI: Palpation (GI): Soft to palpation Auscultation: normal bowel sounds Skin: Other: Left foot erythema, significant edema, tenderness, warmth Neuro: General: patient oriented x3 Cognition (Neuro): normal cognition Extrem: Other: Sutures around the 1st and 2nd metatarsals, there is significant warmth, edema, tenderness, and erythema General: Yes no pedal edema Results Labs CBC and Chem 7: 08/04/22 00:19 08/04/22 00:49 Labs: Laboratory Results - last 24 hr 08/04/22 08/04/22 08/04/22 00:19 00:19 00:19 MCV 85.5 MCH 29.0 MCHC 33.9 RDW 13.2 Plt Count 250 MPV 10.7 Immature Gran % (Auto) 0.5 H Neut % (Auto) 61.2 Lymph % (Auto) 26.2 [place] % (Auto) 10.6 Eos % (Auto) 1.2 Baso % (Auto) 0.3 Lymph # (Auto) 3.2 [place] # (Auto) 1.3 H Eos # (Auto) 0.2 Baso # (Auto) 0.0 Abs Immat Gran (auto) 0.06 H Absolute Neuts (auto) 7.6 Absolute Nucleated RBC 0.000 Nucleated RBC % (auto) 0.0 ESR 49 H Anion Gap Estim Creat Clear Calc Estimated GFR Random Glucose Lactic Acid 2.2 H* Lactic Acid F/U @ 2Hr Calcium C-Reactive Protein Influenza Type A (PCR) Influenza Type B (PCR) RSV RNA Qual (PCR) SARS-CoV-2 RNA (RT-PCR) 08/04/22 08/04/22 08/04/22 00:37 00:49 00:49 MCV MCH MCHC RDW Plt Count MPV Immature Gran % (Auto) Neut % (Auto) Lymph % (Auto) [place] % (Auto) Eos % (Auto) Baso % (Auto) Lymph # (Auto) [place] # (Auto) Eos # (Auto) Baso # (Auto) Abs Immat Gran (auto) Absolute Neuts (auto) Absolute Nucleated RBC Nucleated RBC % (auto) ESR Anion Gap Cancelled 17 Estim Creat Clear Calc Cancelled 127.9 Estimated GFR Cancelled > 60 Random Glucose Cancelled 187 H Lactic Acid Lactic Acid F/U @ 2Hr Calcium Cancelled 9.0 C-Reactive Protein 8.69 H Influenza Type A (PCR) NEGATIVE Influenza Type B (PCR) NEGATIVE RSV RNA Qual (PCR) NEGATIVE SARS-CoV-2 RNA (RT-PCR) NEGATIVE 08/04/22 02:52 MCV MCH MCHC RDW Plt Count MPV Immature Gran % (Auto) Neut % (Auto) Lymph % (Auto) [place] % (Auto) Eos % (Auto) Baso % (Auto) Lymph # (Auto) [place] # (Auto) Eos # (Auto) Baso # (Auto) Abs Immat Gran (auto) Absolute Neuts (auto) Absolute Nucleated RBC Nucleated RBC % (auto) ESR Anion Gap Estim Creat Clear Calc Estimated GFR Random Glucose Lactic Acid Lactic Acid F/U @ 2Hr 1.1 Calcium C-Reactive Protein Influenza Type A (PCR) Influenza Type B (PCR) RSV RNA Qual (PCR) SARS-CoV-2 RNA (RT-PCR) Imaging Radiologist's Impressions: Impressions Foot CT 08/03/22 23:50 IMPRESSION: 1. Soft tissue swelling near the amputation sites of the distal first and second metatarsals. An approximately 1 cm region of low-density near the tip of the remaining second metatarsal raises concern for a small abscess. There is also some cortical irregularity at the tip of the remaining first metatarsal which can be seen with osteomyelitis. Overall, pre and postcontrast MRI may allow for more definitive evaluation of these findings. 2. Lucency surrounding hardware in the distal tibia and talus is redemonstrated, which can be seen as sequelae of loosening or infection in the proper clinical setting. Assessment and Plan (1) Cellulitis and abscess of foot: Status: Acute (2) Osteomyelitis: Status: Acute (3) Diabetic osteomyelitis: Status: Acute Plan 61-year-old male with past medical history of diabetes, osteomyelitis status post amputation of 1st and 2nd metatarsals of the left foot, presents to the hospital with nonhealing wound after 2nd metatarsal amputation on 07/29 # acute osteomyelitis - evidence of osteomyelitis remaining in the 1st metatarsal as well as abscess post recent surgery - patient underwent amputation of 2nd metatarsal on 07/29 after nonhealing wound failing outpatient antibiotics - at this time will treat with IV antibiotic - follow cultures - surgical team consulted - infectious disease consulted # cellulitis and abscess of left foot - will treat with IV antibiotics - general surgery consult # diabetes - low-dose sliding scale insulin - continue home insulin - thick diet # history of AFib - continue Xarelto at this time unless patient is planned for surgery pending evaluation by surgical team - continue metoprolol # CAD - continue metoprolol DVT prophylaxis: Xarelto Pt will require a minimum 2 night hospital stay for management of acute osteomyelitis with IV antibiotics failed outpatient therapy Quality Stroke Does the patient have a stroke diagnosis?: No VTE Prior VTE?: No VTE Risk Level:: Medical - moderate - high VTE Device Contraindication: Treatment Not Indicated VTE Drug Contraindication: N/A - Med Ordered
--- NOTE | 2022-08-04 06:37 | PHA.PROG ---
Admission Date/Time: August 04, 2022 01:24 Indication: bone/joint Weight in k.738 kg Adjusted body weight in Kg: Alexander body weight in Kg: Obesity Dosing Indication % IBW: obese model Serum Creatinine - Last 168 Hours 08/04/22 08/04/22 00:49 00:49 Creatinine Cancelled 0.78 Estimated CrCl and GFR - Last 168 Hours 08/04/22 08/04/22 00:49 00:49 Estim Creat Clear Calc Cancelled 127.9 Estimated GFR Cancelled > 60 Vancomycin Loading Dose: 2000mg X 1 Current Vancomycin Dosing Regimen: 1250mg Q12H Vancomycin Monitoring using AUC goal of 400 - 600 range with trough as surrogate marker: 555mg/L Date and Time for next Vancomycin Level to be drawn: 08/05/22 @0900 Pharmacist Comments on Vancomycin Plan: Using obese model, creatinine to be drawn daily. Vancomycin dosing will take advantage of [employer] as a clinical decision support tool that uses Bayesian modeling to calculate individual patient's pharmacokinetic parameters and forecast the patient's drug concentration time course with the target goal AUC 24 range of 400 - 600 mg/L/hr.
--- NOTE | 2022-08-04 07:12 | PC.NURSE ---
Assumed care for this pt at this time
[2022-08-04 07:18] LABS: Basophils Absolute Auto 0.1 X10*3/uL (0.0-0.2); Basophils Percent Auto 0.6 % (0-2); Eosinophils Absolute Auto 0.1 X10*3/uL (0.0-0.4); Eosinophils Percent Auto 1.1 % (0-4); Hemoglobin 12.4 g/dl (14.0-18.0); Imm Gran Abs Auto 0.05 X10*3/uL (0.00-0.03); Imm Gran Pct Auto 0.5 % (0.0-0.4); Lymphocytes Absolute Auto 2.6 X10*3/uL (1.2-4.9); Lymphocytes Percent Auto 25.4 % (20-40); MANUAL DIFF FLAG SCAN; Mean Corpuscular HGB Conc 33.5 g/dl (31.0-36.0); Mean Corpuscular Volume 86.4 fL (80.0-98.0); Mean Platelet Volume 11.3 fL (9.4-12.4); Monocytes Absolute Auto 1.1 X10*3/uL (0.1-1.2); Monocytes Percent Auto 10.3 % (2-11); Neutrophils Absolute Auto 6.3 x10*3/uL (2.0-8.3); Neutrophils Percent Auto 62.1 % (45-73); PLT CLUMP 1; Red Blood Count 4.28 X10*6/uL (4.60-5.80); Red Cell Distribution Width 13.2 % (11.0-16.0); SCAN SMEAR FLAG 1
[2022-08-04 07:33] LABS: Anion Gap 15 (12-20); Blood Urea Nitrogen 7 mg/dL (9-16); Calcium 8.4 mg/dL (8.4-10.2); Carbon Dioxide 20 mmol/L (22-29); Chloride 105 mmol/L (96-108); Creatinine Clr Calc Pharmacy 136.6; Estimated Glomerular Filt Rate > 60; Glucose Random 225 mg/dL (60-115); Sodium 136 mmol/L (135-145)
[2022-08-04 07:39] LABS: Platelet Count 179 X10*3/uL (160-400); SLIDE REVIEW VERIFIED; White Blood Count 10.2 X10*3/uL (4.8-10.8)
[2022-08-04] MEDS: 0.9 % Sodium Chloride Flush 3 ML SYRINGE IVFLUSH ×3 (07:49→20:57)
[2022-08-04 07:54] LABS: C Reactive Protein 8.19 mg/dL (< or = 0.50)
[2022-08-04] MEDS: Insulin Lispro 100 UNIT/ML 3 ML VIAL SUBCUT ×4 (07:55→20:48)
--- NOTE | 2022-08-04 09:44 | PM.CNGS ---
History of Present Illness Consult details Consult date: 08/04/22 Narrative: The patient contacted me by telephone this past Friday and again yesterday regarding increasing pain and drainage. His predominant complaint was pain and he denied any fevers or chills. The drainage was unchanged and non purulence. The patient was directed to the emergency department and has been admitted to the hospitalist service. Today, the patient continues to endorse ongoing pain in his operated foot. He continues to deny any fevers but reports some chills. Review of Systems Review of Systems: Yes all other systems are reviewed and are negative [facility] Past Medical History Medical History Afib Amputation of left great toe Asthma CAD (coronary artery disease) Cellulitis Diabetes DMII (diabetes mellitus, type 2) FHx: bilateral hip replacements Hyperglycemia Hypertension Lower limb amputation, great toe Orthopedic hardware present Family History Family History Other No family history of coronary artery disease Surgical History Surgical History H/O bilateral hip replacements History of amputation of great toe (01/07/22) History of ankle surgery History of back surgery History of neck surgery S/P quadruple vessel bypass Social History Social History Household Members: Family Housing: Apartment Are you a primary customer care specialist to a significant other at home: No Do you presently have visiting nurse or other home services: No Alcohol intake: never Patient Tobacco Use Status: Former Tobacco user Tobacco use type: Cigarette Second Hand Smoke Exposure: No Advance Directives: Yes Advance Directives on File: Yes Advance Directives Date on File: 01/04/22 service: Yes Current occupational status: retired Meds Allergies Allergy/AdvReac Type Severity Reaction Status Date / Time morphine AdvReac Intermediate Hallucinati Verified 08/03/22 17:10 ons Active Medications: Current Medications Acetaminophen (Acetaminophen 325 Mg Tablet) 650 mg PO Q6H PRN PRN Reason: Pain, Mild (Pain Scale 1-3) Dextrose (Dextrose 50 % 25 Gm/50 Ml Syringe) 25 gm IVPUSH Q15M PRN; Protocol PRN Reason: per Hypoglycemia Standing Ord. Enoxaparin Sodium (Enoxaparin Sodium 40 Mg/0.4 Ml Syringe) 40 mg SUBCUT Q24H [facility] Last Admin: 08/04/22 03:13 Dose: 40 mg Glucose (Glucose Gel 15 Gm Gel..Gram.) 15 gm PO Q15M PRN; Protocol PRN Reason: per Hypoglycemia Standing Ord. Hydromorphone HCl (Hydromorphone Hcl 1 Mg/Ml Syringe) 0.5 mg IVPUSH Q4H PRN; Protocol PRN Reason: Pain, Severe (Pain Scale 7-10) Last Admin: 08/04/22 07:48 Dose: 0.5 mg Piperacillin Sod/Tazobactam (Sod 3.375 gm/ Sodium Chloride) 50 mls @ 100 mls/hr IV Q6H [facility] Last Infusion: 08/04/22 09:15 Dose: Infused Vancomycin HCl 1,250 mg/ (Sodium Chloride) 250 mls @ 166.667 mls/hr IV Q12H [facility] Insulin Human Lispro (Insulin Lispro 100 Unit/Ml 3 Ml Vial) 0 unit SUBCUT QIDACHS [facility]; Protocol Last Admin: 08/04/22 07:55 Dose: 4 unit Ondansetron HCl (Ondansetron Hcl 4 Mg/2 Ml Vial) 4 mg IVPUSH Q8H PRN PRN Reason: Nausea and Vomiting Pharmacy Consult (Consult Rx Vancomycin Dosing) 1 each MISCELLANE DAILY PRN PRN Reason: Consult order Sodium Chloride (0.9 % Sodium Chloride Flush 3 Ml Syringe) [facility] Last Admin: 08/04/22 07:49 Dose: 3 ml Home Medications Medication Instructions Recorded Confirmed Last Taken Type ezetimibe 10 mg tablet 1 tab PO DAILY 01/03/22 08/04/22 01/02/22 History gabapentin 300 mg capsule 1 cap PO TID 01/03/22 08/04/22 01/02/22 History hydroxyzine HCl 10 mg tablet 2 tab PO QID PRN itch 01/03/22 08/04/22 Unknown History insulin glargine 100 unit/mL 50 unit subcut BID@01/03/22 08/04/22 01/02/22 History subcutaneous solution (Lantus U-100 Insulin) insulin lispro 100 unit/mL 30 unit subcut TIDAC 0308/04/22 01/02/22 History subcutaneous solution isosorbide mononitrate 30 mg 1 tab PO QAM 01/03/22 08/04/22 01/02/22 History tablet,extended release 24 hr loratadine 10 mg tablet 1 tab PO DAILY 01/03/22 08/04/22 01/02/22 History losartan 25 mg tablet 1 tab PO DAILY 01/03/22 08/04/22 01/02/22 History meclizine 25 mg tablet 1 tab PO TID PRN dizziness 01/03/22 08/04/22 Unknown History metoprolol tartrate 25 mg tablet 1 tab PO BID 01/03/22 08/04/22 01/02/22 History montelukast 10 mg tablet 1 tab PO BEDTIME 01/03/22 08/04/22 01/02/22 History ondansetron HCl 4 mg tablet 1 tab PO TID PRN nausea 01/03/22 08/04/22 Unknown History oxycodone 20 mg tablet,crush 1 tab PO BID 01/03/22 08/04/22 01/02/22 History resistant,extended release 12 hr (OxyContin) oxycodone 5 mg tablet 2 tab PO Q4H 01/03/22 05/28/22 01/02/22 History pantoprazole 40 mg tablet,delayed 1 tab PO BID@0630,1630 01/03/22 08/04/22 01/02/22 History release quetiapine 25 mg tablet 0.5 tab PO BEDTIME 01/03/22 08/04/22 01/02/22 History rosuvastatin 40 mg tablet 1 tab PO BEDTIME 01/03/22 08/04/22 01/02/22 History thiamine HCl (vitamin B1) 100 mg 1 tab PO DAILY 01/03/22 08/04/22 01/02/22 History tablet venlafaxine 100 mg tablet 1 tab PO BID 01/03/22 08/04/22 01/02/22 History zolpidem 10 mg tablet 1 tab PO BEDTIME PRN insomnia 01/03/22 08/04/22 Unknown History rivaroxaban 20 mg tablet (Xarelto) 1 tab PO DAILY@1700 07/23/22 08/04/22 Unknown History aspirin 81 mg tablet,delayed 1 tab PO DAILY 08/04/22 08/04/22 Unknown History release tamsulosin 0.4 mg capsule 1 cap PO DAILY 08/04/22 08/04/22 Unknown History Physical Exam Vital Signs: Vital Signs: Last Vital Signs Temp 97.4 F 08/04/22 08:05 Pulse 72 08/04/22 08:05 Resp 24 H 08/04/22 08:05 BP 117/56 L 08/04/22 08:05 Pulse Ox 94 08/04/22 08:05 O2 Del Method 08/04/22 08:05 BMI result Body Mass Index 41.8 On exam, the patient is nontoxic There is a mild pinkness to the operated left foot. His sutures are present. There is non purulence and non crepitance. No discrete palpable collections are present. Believe I can feel dorsalis pedis. Results Labs Result diagrams: 08/04/22 06:37 08/04/22 06:37 Labs: Abnormal lab results 08/04/22 08/04/22 08/04/22 Range/Units 00:19 00:19 00:19 WBC 12.4 H (4.8-10.8) X10*3/uL RBC 4.35 L (4.60-5.80) X10*6/uL Hgb 12.6 L (14.0-18.0) g/dl Hct 37.2 L (42.0-52.0) % Immature Gran % (Auto) 0.5 H (0.0-0.4) % Callahan # (Auto) 1.3 H (0.1-1.2) X10*3/uL Abs Immat Gran (auto) 0.06 H (0.00-0.03) X10*3/uL ESR 49 H (0-15) MM/HR Carbon Dioxide (22-29) mmol/L BUN (9-16) mg/dL POC Glucose (60-115) mg/dL Random Glucose (60-115) mg/dL Lactic Acid 2.2 H* (0.5-2.0) mmol/L C-Reactive Protein (< or = 0.50) mg/dL 08/04/22 08/04/22 08/04/22 Range/Units 00:49 06:37 06:37 WBC (4.8-10.8) X10*3/uL RBC 4.28 L (4.60-5.80) X10*6/uL Hgb 12.4 L (14.0-18.0) g/dl Hct 37.0 L (42.0-52.0) % Immature Gran % (Auto) 0.5 H (0.0-0.4) % Callahan # (Auto) (0.1-1.2) X10*3/uL Abs Immat Gran (auto) 0.05 H (0.00-0.03) X10*3/uL ESR (0-15) MM/HR Carbon Dioxide 21 L 20 L (22-29) mmol/L BUN 8 L 7 L (9-16) mg/dL POC Glucose (60-115) mg/dL Random Glucose 187 H 225 H (60-115) mg/dL Lactic Acid (0.5-2.0) mmol/L C-Reactive Protein 8.69 H 8.19 H (< or = 0.50) mg/dL 08/04/22 Range/Units 07:10 WBC (4.8-10.8) X10*3/uL RBC (4.60-5.80) X10*6/uL Hgb (14.0-18.0) g/dl Hct (42.0-52.0) % Immature Gran % (Auto) (0.0-0.4) % Callahan # (Auto) (0.1-1.2) X10*3/uL Abs Immat Gran (auto) (0.00-0.03) X10*3/uL ESR (0-15) MM/HR Carbon Dioxide (22-29) mmol/L BUN (9-16) mg/dL POC Glucose 202 H (60-115) mg/dL Random Glucose (60-115) mg/dL Lactic Acid (0.5-2.0) mmol/L C-Reactive Protein (< or = 0.50) mg/dL Short CBC 08/04/22 08/04/22 Range/Units 00:19 06:37 WBC 12.4 H 10.2 (4.8-10.8) X10*3/uL Hgb 12.6 L 12.4 L (14.0-18.0) g/dl Hct 37.2 L 37.0 L (42.0-52.0) % Plt Count 250 179 D (160-400) X10*3/uL BMP 08/04/22 08/04/22 08/04/22 00:49 00:49 06:37 Sodium Cancelled 136 136 Potassium Cancelled 3.7 4.0 Chloride Cancelled 102 105 Carbon Dioxide Cancelled 21 L 20 L BUN Cancelled 8 L 7 L Creatinine Cancelled 0.78 0.73 Calcium Cancelled 9.0 8.4 D All other labs normal. Assessment and Plan (1) Cellulitis and abscess of foot: Status: Acute (2) Diabetic osteomyelitis: Status: Acute (3) Osteomyelitis: Status: Acute Plan IV antibiotics as ordered I do not appreciate a fluid collection that would benefit from suture removal or wound exploration on today's visit. Continue present management Will ask Dr. Perkins to assess tomorrow. Procedures Date of Service Date of Service: 08/04/22
--- NOTE | 2022-08-04 10:25 | PHA.MEDREC ---
Pharmacy Consult ? Medication Reconciliation Pharmacy has completed the medication reconciliation. spoke with pt. he states he doesnt take venlafaxine despite a recent fill.
--- NOTE | 2022-08-04 10:51 | MHC.CM.PN ---
[place] and he is active with [facility] for dressing changes and uses a cane to assist with mobility. Home/resume said services is the goal and CM has initiated and will follow for dc planning. Patient has received Pfizer/covPostmates vax x4 and the PCP is DR. Michael Acosta.
--- NOTE | 2022-08-04 12:26 | PM.EVENT ---
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 Physical exam : Unchanged from H&P Assessment plan: Coordinated in H&P Continue IV antibiotic for possible osteomyelitis. Assessment plan coordinated in H&P note. Acute osteomyelitis on IV antibiotics Surgery and vascular consult Morbid obesity: Advised to lose weight. Uncontrolled hypertension: Home medications started, continue to monitor
[2022-08-04] MEDS: vancomycin HCL 1,250 MG in 0.9 % Sodium Chloride 250 ML 166.67 MG IV ×2 (12:28→22:05)
[2022-08-04] MEDS: Isosorbide Mononitrate 30 MG TAB.ER.24H PO (13:22)
[2022-08-04] MEDS: oxyCODONE HCl Immed Release 5 MG TABLET 10 MG PO ×3 (13:27→20:46)
[2022-08-04] MEDS: Gabapentin 300 MG CAPSULE PO ×2 (13:49→20:46)
[2022-08-04] MEDS: Acetaminophen 325 MG TABLET 650 MG PO (16:47)
[2022-08-04] MEDS: Omeprazole 20 MG CAPSULE.DR PO (16:47)
[2022-08-04] MEDS: Metoprolol Tartrate 25 MG TABLET PO (20:45)
[2022-08-04] MEDS: Atorvastatin Calcium 80 MG TABLET PO (20:46)
[2022-08-04] MEDS: oxyCODONE HCl ER 10 MG TAB.ER.12H 20 MG PO (20:46)
[2022-08-04] MEDS: Montelukast Sodium 10 MG TABLET PO (20:46)
[2022-08-04] MEDS: QUEtiapine Fumarate 25 MG TABLET 12.5 MG PO (20:47)
[2022-08-04] MEDS: Zolpidem Tartrate 5 MG TABLET 10 MG PO (22:18)
[2022-08-05] MEDS: oxyCODONE HCl Immed Release 5 MG TABLET 10 MG PO ×6 (00:36→21:14)
[2022-08-05] MEDS: Piperacillin Sodium/Tazobactam 3.375 GM in 0.9 % Sodium Chloride 50 ML IV ×4 (02:15→19:53)
[2022-08-05] MEDS: HYDROmorphone HCl 1 MG/ML SYRINGE 0.5 MG IVPUSH ×6 (02:17→22:44)
[2022-08-05 03:14] VITALS: BP 127/58; PULSE 70; RESP 18; TEMP 36.3; O2SAT 97
[2022-08-05] MEDS: Omeprazole 20 MG CAPSULE.DR PO ×2 (05:14→16:38)
[2022-08-05 07:15] LABS: Creatinine Clr Calc Pharmacy 146.7; Estimated Glomerular Filt Rate > 60
[2022-08-05 07:24] VITALS: BP 130/59; PULSE 69; RESP 16; TEMP 36.2; O2SAT 93
[2022-08-05 08:17] LABS: Glucose, Whole Blood 227 mg/dL (60-115)
--- NOTE | 2022-08-05 08:30 | P.PNGS_ITS ---
Subjective Subjective Date of Service: 08/05/22 Interval history: says he has pain on amputation site no fever or chills no other complaints Physical Exam Vital Signs: Vital Signs: Last Vital Signs Temp 97.1 F 08/05/22 07:24 Pulse 69 08/05/22 07:24 Resp 16 08/05/22 07:24 BP 130/59 L 08/05/22 07:24 Pulse Ox 93 08/05/22 07:24 O2 Del Method 08/05/22 07:24 BMI result Body Mass Index 41.8 Const: General: no acute distress Resp: Effort & Inspection: normal respiratory effort Cardio: Rate: regular rate Extrem: Other: amputation site clean, sutures intact, minimal cellulitic changes, no fluctuance Objective Data Active Medications Acetaminophen (Acetaminophen 325 Mg Tablet) 650 mg PO Q6H PRN PRN Reason: Pain, Mild (Pain Scale 1-3) Last Admin: 08/04/22 16:47 Dose: 650 mg Documented By: CAMILO Atorvastatin Calcium (Atorvastatin Calcium 80 Mg Tablet) 80 mg PO BEDTIME [facility] Last Admin: 08/04/22 20:46 Dose: 80 mg Documented By: KARLI Dextrose (Dextrose 50 % 25 Gm/50 Ml Syringe) 25 gm IVPUSH Q15M PRN; Protocol PRN Reason: per Hypoglycemia Standing Ord. Ezetimibe (Ezetimibe 10 Mg Tablet) 10 mg PO DAILY [facility] Enoxaparin Sodium (Enoxaparin Sodium 40 Mg/0.4 Ml Syringe) 40 mg SUBCUT Q24H [facility] Last Admin: 08/05/22 03:12 Dose: Not Given Documented By: KARLI Non-Admin Reason: hold per md dr GONZALEZ Gabapentin (Gabapentin 300 Mg Capsule) 300 mg PO TID [facility] Last Admin: 08/04/22 20:46 Dose: 300 mg Documented By: KARLI Glucose (Glucose Gel 15 Gm Gel..Gram.) 15 gm PO Q15M PRN; Protocol PRN Reason: per Hypoglycemia Standing Ord. Hydromorphone HCl (Hydromorphone Hcl 1 Mg/Ml Syringe) 0.5 mg IVPUSH Q4H PRN; Protocol PRN Reason: Pain, Severe (Pain Scale 7-10) Last Admin: 08/05/22 06:29 Dose: 0.5 mg Documented By: KARLI Hydroxyzine HCl (Hydroxyzine Hcl 10 Mg Tablet) 20 mg PO QID PRN PRN Reason: itch Piperacillin Sod/Tazobactam (Sod 3.375 gm/ Sodium Chloride) 50 mls @ 100 mls/hr IV Q6H [facility] Last Infusion: 08/05/22 02:52 Dose: 100 mls/hr Documented By: KARLI Vancomycin HCl 1,250 mg/ (Sodium Chloride) 250 mls @ 166.667 mls/hr IV Q12H [facility] Last Infusion: 08/05/22 00:18 Dose: 166.67 mls/hr Documented By: KARLI Insulin Human Lispro (Insulin Lispro 100 Unit/Ml 3 Ml Vial) 0 unit SUBCUT QIDACHS [facility]; Protocol Last Admin: 08/04/22 20:48 Dose: 4 unit Documented By: KARLI Isosorbide Mononitrate (Isosorbide Mononitrate 30 Mg Tab.Er.24h) 30 mg PO DAILY [facility]; Protocol Last Admin: 08/04/22 13:22 Dose: 30 mg Documented By: PAMELA Loratadine (Loratadine 10 Mg Tablet) 10 mg PO DAILY [facility] Losartan Potassium (Losartan Potassium 25 Mg Tablet) 25 mg PO DAILY [facility]; Protocol Meclizine HCl (Meclizine Hcl 25 Mg Tablet) 25 mg PO TID PRN PRN Reason: dizziness Metoprolol Tartrate (Metoprolol Tartrate 25 Mg Tablet) 25 mg PO BID [facility]; Protocol Last Admin: 08/04/22 20:45 Dose: 25 mg Documented By: KARLI Montelukast Sodium (Montelukast Sodium 10 Mg Tablet) 10 mg PO BEDTIME [facility] Last Admin: 08/04/22 20:46 Dose: 10 mg Documented By: KARLI Omeprazole (Omeprazole 20 Mg Capsule.Dr) 20 mg PO BID@0630,1630 [facility] Last Admin: 08/05/22 05:14 Dose: 20 mg Documented By: KARLI Ondansetron HCl (Ondansetron Hcl 4 Mg/2 Ml Vial) 4 mg IVPUSH Q8H PRN PRN Reason: Nausea and Vomiting Ondansetron HCl (Ondansetron Odt 4 Mg Tab.Rapdis) 4 mg TRANSLINGU TID PRN PRN Reason: nausea Oxycodone HCl (Oxycodone Hcl Immed Release 5 Mg Tablet) 10 mg PO Q4H [facility] Last Admin: 08/05/22 05:14 Dose: 10 mg Documented By: KARLI Oxycodone HCl (Oxycodone Hcl Er 10 Mg Tab.Er.12h) 20 mg PO BID [facility] Last Admin: 08/04/22 20:46 Dose: 20 mg Documented By: KARLI Pharmacy Consult (Consult Rx Vancomycin Dosing) 1 each MISCELLANE DAILY PRN PRN Reason: Consult order Quetiapine Fumarate (Quetiapine Fumarate 25 Mg Tablet) 12.5 mg PO BEDTIME [facility] Last Admin: 08/04/22 20:47 Dose: 12.5 mg Documented By: KARLI Sodium Chloride (0.9 % Sodium Chloride Flush 3 Ml Syringe) 3 ml IVFLUSH QSHIFT [facility] Last Admin: 08/04/22 20:57 Dose: 3 ml Documented By: KARLI Tamsulosin HCl (Tamsulosin Hcl 0.4 Mg Capsule) 0.4 mg PO DAILY [facility] Thiamine HCl (Thiamine Hcl 100 Mg Tablet) 100 mg PO DAILY [facility] Zolpidem Tartrate (Zolpidem Tartrate 5 Mg Tablet) 10 mg PO BEDTIME PRN PRN Reason: insomnia Last Admin: 08/04/22 22:18 Dose: 10 mg Documented By: KARLI Labs CBC & Chem 7: 08/04/22 06:37 08/05/22 05:48 Labs: Laboratory Results - last 24 hr 08/04/22 08/04/22 08/04/22 12:15 15:01 18:57 Estim Creat Clear Calc Estimated GFR POC Glucose 193 H 231 H 239 H 08/05/22 08/05/22 05:48 07:22 Estim Creat Clear Calc 146.7 Estimated GFR > 60 POC Glucose 227 H Microbiology Microbiology Results: Microbiology 08/04/22 00:19 Blood Culture - Preliminary Blood - Venous No growth after 24 hours. 08/04/22 00:19 Blood Culture - Preliminary Blood - Venous No growth after 24 hours. Procedures Date of Service Date of Service: 08/05/22 Progress Note: A&P Assessment and plan (1) Osteomyelitis: Status: Acute Assessment and Plan: s/p toe amp, 2nd toe 07/29/22 c/o pain imaging reviewed - no abscess or fluid collection changes seen likely postop dressings changed - wrapped foot in Kerlix elevated leg on pillows continue IV abx pain meds Time Spent With Patient Time: Total time spent is greater than 50% in coordination of care (as documented) at patient's floor/unit and/or counseling patient: Quality Stroke Does the patient have a stroke diagnosis?: No VTE Prior VTE?: No VTE Risk Level:: Medical - moderate - high VTE Device Contraindication: Treatment Not Indicated VTE Drug Contraindication: N/A - Med Ordered
[2022-08-05] MEDS: 0.9 % Sodium Chloride Flush 3 ML SYRINGE IVFLUSH ×3 (08:43→21:16)
[2022-08-05] MEDS: Loratadine 10 MG TABLET PO (08:44)
[2022-08-05] MEDS: Metoprolol Tartrate 25 MG TABLET PO ×2 (08:44→21:14)
[2022-08-05] MEDS: Insulin Lispro 100 UNIT/ML 3 ML VIAL SUBCUT ×4 (08:44→21:15)
[2022-08-05] MEDS: Gabapentin 300 MG CAPSULE PO ×3 (08:44→21:13)
[2022-08-05] MEDS: Isosorbide Mononitrate 30 MG TAB.ER.24H PO (08:44)
[2022-08-05] MEDS: Ezetimibe 10 MG TABLET PO (08:44)
[2022-08-05] MEDS: Thiamine HCL 100 MG TABLET PO (08:44)
[2022-08-05] MEDS: oxyCODONE HCl ER 10 MG TAB.ER.12H 20 MG PO ×2 (08:45→21:14)
[2022-08-05] MEDS: Losartan Potassium 25 MG TABLET PO (08:45)
[2022-08-05] MEDS: Tamsulosin HCL 0.4 MG CAPSULE PO (08:45)
[2022-08-05] MEDS: Acetaminophen 325 MG TABLET 650 MG PO ×2 (08:45→14:39)
[2022-08-05] MEDS: Aspirin Enteric Coated 81 MG TABLET.DR PO (09:48)
[2022-08-05 10:32] LABS: Vancomycin Trough 8.9 mcg/mL (10.0-20.0)
--- NOTE | 2022-08-05 10:37 | HE.PHANOTE ---
[vanco addendum] Pt's trough came back at 8.9; increased dose to 1500mg Q12H with predcited AUC of 488 mg/L; next level to be drawn 08/06 @2100. Will continue to monitor
[2022-08-05] MEDS: vancomycin HCL 1,500 MG in 0.9 % Sodium Chloride 500 ML 333.33 MG IV (10:52)
--- NOTE | 2022-08-05 11:44 | HO.PM.IMPN ---
Subjective Subjective Date of Service: 08/05/22 Interval History: Acute osteomyelitis , s/p recent surgery Review of Systems stll has foot pain no drainage or fevers Physical Exam Vital Signs: Vital Signs: Last Vital Signs Temp 97.1 F 08/05/22 07:24 Pulse 69 08/05/22 07:24 Resp 16 08/05/22 07:24 BP 130/59 L 08/05/22 07:24 Pulse Ox 93 08/05/22 07:24 O2 Del Method 08/05/22 07:24 BMI result Body Mass Index 41.8 Appearance: Alert.? Oriented X3.? not in distress.? cvs: rrr, [id number] , no murmur res: clear to auscultation ,no rhonchii or wheezing abd: no rebound or guarding ,nt, bs present. ext : foot area wrapped -no erythema or discharge around it. neuro: axo3 , nonfocal. Objective Data Active Medications Acetaminophen (Acetaminophen 325 Mg Tablet) 650 mg PO Q6H PRN PRN Reason: Pain, Mild (Pain Scale 1-3) Last Admin: 08/05/22 08:45 Dose: 650 mg Documented By: MAMIE Aspirin (Aspirin Enteric Coated 81 Mg Tablet.) 81 mg PO DAILY [facility] Last Admin: 08/05/22 09:48 Dose: 81 mg Documented By: MAMIE Atorvastatin Calcium (Atorvastatin Calcium 80 Mg Tablet) 80 mg PO BEDTIME [facility] Last Admin: 08/04/22 20:46 Dose: 80 mg Documented By: KARLI Dextrose (Dextrose 50 % 25 Gm/50 Ml Syringe) 25 gm IVPUSH Q15M PRN; Protocol PRN Reason: per Hypoglycemia Standing Ord. Ezetimibe (Ezetimibe 10 Mg Tablet) 10 mg PO DAILY [facility] Last Admin: 08/05/22 08:44 Dose: 10 mg Documented By: MAMIE Enoxaparin Sodium (Enoxaparin Sodium 40 Mg/0.4 Ml Syringe) 40 mg SUBCUT Q24H [facility] Last Admin: 08/05/22 03:12 Dose: Not Given Documented By: KARLI Non-Admin Reason: hold per md dr GONZALEZ Gabapentin (Gabapentin 300 Mg Capsule) 300 mg PO TID [facility] Last Admin: 08/05/22 08:44 Dose: 300 mg Documented By: MAMIE Glucose (Glucose Gel 15 Gm Gel..Gram.) 15 gm PO Q15M PRN; Protocol PRN Reason: per Hypoglycemia Standing Ord. Hydromorphone HCl (Hydromorphone Hcl 1 Mg/Ml Syringe) 0.5 mg IVPUSH Q4H PRN; Protocol PRN Reason: Pain, Severe (Pain Scale 7-10) Last Admin: 08/05/22 10:31 Dose: 0.5 mg Documented By: MAMIE Hydroxyzine HCl (Hydroxyzine Hcl 10 Mg Tablet) 20 mg PO QID PRN PRN Reason: itch Piperacillin Sod/Tazobactam (Sod 3.375 gm/ Sodium Chloride) 50 mls @ 100 mls/hr IV Q6H [facility] Last Infusion: 08/05/22 10:19 Dose: 0 mls/hr Documented By: MAMIE Vancomycin HCl 1,500 mg/ (Sodium Chloride) 500 mls @ 333.333 mls/hr IV Q12H [facility] Last Admin: 08/05/22 10:52 Dose: 333.33 mls/hr Documented By: MAMIE Insulin Human Lispro (Insulin Lispro 100 Unit/Ml 3 Ml Vial) 0 unit SUBCUT QIDACHS [facility]; Protocol Last Admin: 08/05/22 08:44 Dose: 4 unit Documented By: MAMIE Isosorbide Mononitrate (Isosorbide Mononitrate 30 Mg Tab.Er.24h) 30 mg PO DAILY [facility]; Protocol Last Admin: 08/05/22 08:44 Dose: 30 mg Documented By: MAMIE Loratadine (Loratadine 10 Mg Tablet) 10 mg PO DAILY [facility] Last Admin: 08/05/22 08:44 Dose: 10 mg Documented By: MAMIE Losartan Potassium (Losartan Potassium 25 Mg Tablet) 25 mg PO DAILY [facility]; Protocol Last Admin: 08/05/22 08:45 Dose: 25 mg Documented By: MAMIE Meclizine HCl (Meclizine Hcl 25 Mg Tablet) 25 mg PO TID PRN PRN Reason: dizziness Metoprolol Tartrate (Metoprolol Tartrate 25 Mg Tablet) 25 mg PO BID [facility]; Protocol Last Admin: 08/05/22 08:44 Dose: 25 mg Documented By: MAMIE Montelukast Sodium (Montelukast Sodium 10 Mg Tablet) 10 mg PO BEDTIME [facility] Last Admin: 08/04/22 20:46 Dose: 10 mg Documented By: KARLI Omeprazole (Omeprazole 20 Mg Capsule.Dr) 20 mg PO BID@0630,1630 [facility] Last Admin: 08/05/22 05:14 Dose: 20 mg Documented By: KARLI Ondansetron HCl (Ondansetron Hcl 4 Mg/2 Ml Vial) 4 mg IVPUSH Q8H PRN PRN Reason: Nausea and Vomiting Ondansetron HCl (Ondansetron Odt 4 Mg Tab.Rapdis) 4 mg TRANSLINGU TID PRN PRN Reason: nausea Oxycodone HCl (Oxycodone Hcl Immed Release 5 Mg Tablet) 10 mg PO Q4H [facility] Last Admin: 08/05/22 08:45 Dose: 10 mg Documented By: MAMIE Oxycodone HCl (Oxycodone Hcl Er 10 Mg Tab.Er.12h) 20 mg PO BID [facility] Last Admin: 08/05/22 08:45 Dose: 20 mg Documented By: MAMIE Oxycodone HCl (Oxycodone Hcl Immed Release 5 Mg Tablet) 10 mg PO Q4H PRN PRN Reason: Pain, Moderate (Pain Scale 4-6 Pharmacy Consult (Consult Rx Vancomycin Dosing) 1 each MISCELLANE DAILY PRN PRN Reason: Consult order Quetiapine Fumarate (Quetiapine Fumarate 25 Mg Tablet) 12.5 mg PO BEDTIME [facility] Last Admin: 08/04/22 20:47 Dose: 12.5 mg Documented By: KARLI Rivaroxaban (Rivaroxaban 20 Mg Tablet) 20 mg PO DAILY@1700 [facility] Sodium Chloride (0.9 % Sodium Chloride Flush 3 Ml Syringe) 3 ml IVFLUSH QSHIFT [facility] Last Admin: 08/05/22 08:43 Dose: 3 ml Documented By: MAMIE Tamsulosin HCl (Tamsulosin Hcl 0.4 Mg Capsule) 0.4 mg PO DAILY [facility] Last Admin: 08/05/22 08:45 Dose: 0.4 mg Documented By: MAMIE Thiamine HCl (Thiamine Hcl 100 Mg Tablet) 100 mg PO DAILY [facility] Last Admin: 08/05/22 08:44 Dose: 100 mg Documented By: MAMIE Zolpidem Tartrate (Zolpidem Tartrate 5 Mg Tablet) 10 mg PO BEDTIME PRN PRN Reason: insomnia Last Admin: 08/04/22 22:18 Dose: 10 mg Documented By: KARLI Labs CBC & Chem 7: 08/04/22 06:37 08/05/22 05:48 Labs: Laboratory Results - last 24 hr 08/04/22 08/04/22 08/04/22 12:15 15:01 18:57 Estim Creat Clear Calc Estimated GFR POC Glucose 193 H 231 H 239 H Vancomycin Trough 08/05/22 08/05/22 08/05/22 05:48 07:22 09:13 Estim Creat Clear Calc 146.7 Estimated GFR > 60 POC Glucose 227 H Vancomycin Trough 8.9 L Microbiology Microbiology Results: Microbiology 08/04/22 00:19 Blood Culture - Preliminary Blood - Venous No growth after 24 hours. 08/04/22 00:19 Blood Culture - Preliminary Blood - Venous No growth after 24 hours. Assessment and Plan (1) Cellulitis and abscess of foot: Status: Acute (2) Diabetic osteomyelitis: Status: Acute (3) Osteomyelitis: Status: Acute (4) Leukocytosis: Status: Acute Plan 61-year-old male with past medical history of diabetes, osteomyelitis status post amputation of 1st and 2nd metatarsals of the left foot, presents to the hospital with nonhealing wound after 2nd metatarsal amputation on 07/29 # acute osteomyelitis - evidence of osteomyelitis remaining in the 1st metatarsal as well as abscess post recent surgery - patient underwent amputation of 2nd metatarsal on 07/29 after nonhealing wound failing outpatient antibiotics - at this time will treat with IV antibiotic, moniter vanco trough - follow cultures - surgical team -d/w Dr islas yesterday-Dr rojas will evaluate this morning - infectious disease consulted #? cellulitis and abscess of left foot - will treat with IV antibiotics - general surgery consult-as above. # diabetes - low-dose sliding scale insulin - continue home insulin - thick diet # history of AFib - continue Xarelto at this time unless patient is planned for surgery pending evaluation by surgical team - continue metoprolol # CAD - continue metoprolol DVT prophylaxis:? Xarelto inpatient need: possible acute osteo-iv antibiotics, need Id and surgery followup. Quality Stroke Does the patient have a stroke diagnosis?: No VTE Prior VTE?: No VTE Risk Level:: Medical - moderate - high VTE Device Contraindication: Treatment Not Indicated VTE Drug Contraindication: N/A - Med Ordered
[2022-08-05 11:51] LABS: Glucose, Whole Blood 158 mg/dL (60-115)
[2022-08-05 12:00] VITALS: BP 124/60; PULSE 64; RESP 15; TEMP 36.1; O2SAT 93
--- NOTE | 2022-08-05 13:39 | PM.CNGS ---
History of Present Illness Consult details Consult date: 08/05/22 Reason for consult: wound care Narrative: very pleasant 61-year-old gentleman presents for evaluation regarding nonhealing amputation site. Had a history of diabetic foot ulcers in underwent toe amputations. They continue to be nonhealing. He re-presented to the hospital with some drainage from the incision site. He now presents to us for vascular evaluation. Of note he is a nonsmoker and long standing diabetic for nearly 30 years. Also of note he has undergone MRI yesterday. Review of Systems Review of Systems: Yes all other systems are reviewed and are negative Constitutional: Constitutional: Reports no additional constitutional complaints ENT: Reports Normal hearing present Cardiovascular: Cardiovascular: Denies chest pain, Denies chest pain at rest, Denies chest pain with activity and Denies pedal edema Respiratory: Respiratory: Denies cough Gastrointestinal: Gastrointestinal: Denies abdominal pain Musculoskeletal: Musculoskeletal: Denies abnormal gait, Denies muscle cramps and Denies radiating pain into limb Integumentary/Breasts: Skin/Breast: Denies skin ulcer and Denies wounds Neurologic: Reports Normal hearing present and Denies abnormal gait Psychiatric: Psychiatric: Reports no additional psychiatric complaints PMFSH Past Medical History Medical History Afib Amputation of left great toe Asthma CAD (coronary artery disease) Cellulitis Diabetes DMII (diabetes mellitus, type 2) FHx: bilateral hip replacements Hyperglycemia Hypertension Lower limb amputation, great toe Orthopedic hardware present Family History Family History Other No family history of coronary artery disease Surgical History Surgical History H/O bilateral hip replacements History of amputation of great toe (01/07/22) History of ankle surgery History of back surgery History of neck surgery S/P quadruple vessel bypass Social History Social History Household Members: Spouse Household Members Other:: 3 Housing: Apartment Are you a primary home care and home health aides teacher to a significant other at home: No Do you presently have visiting nurse or other home services: Yes Alcohol intake: never Patient Tobacco Use Status: Former Tobacco user Tobacco use type: Cigarette Second Hand Smoke Exposure: No Advance Directives Date on File: 01/04/22 service: Yes Current occupational status: disabled Meds Allergies Allergy/AdvReac Type Severity Reaction Status Date / Time morphine AdvReac Intermediate Hallucinati Verified 08/03/22 17:10 ons Active Medications: Current Medications Acetaminophen (Acetaminophen 325 Mg Tablet) 650 mg PO Q6H PRN PRN Reason: Pain, Mild (Pain Scale 1-3) Last Admin: 08/05/22 08:45 Dose: 650 mg Aspirin (Aspirin Enteric Coated 81 Mg Tablet.Dr) 81 mg PO DAILY [facility] Last Admin: 08/05/22 09:48 Dose: 81 mg Atorvastatin Calcium (Atorvastatin Calcium 80 Mg Tablet) 80 mg PO BEDTIME [facility] Last Admin: 08/04/22 20:46 Dose: 80 mg Dextrose (Dextrose 50 % 25 Gm/50 Ml Syringe) 25 gm IVPUSH Q15M PRN; Protocol PRN Reason: per Hypoglycemia Standing Ord. Ezetimibe (Ezetimibe 10 Mg Tablet) 10 mg PO DAILY [facility] Last Admin: 08/05/22 08:44 Dose: 10 mg Enoxaparin Sodium (Enoxaparin Sodium 40 Mg/0.4 Ml Syringe) 40 mg SUBCUT Q24H [facility] Last Admin: 08/05/22 03:12 Dose: Not Given Gabapentin (Gabapentin 300 Mg Capsule) 300 mg PO TID [facility] Last Admin: 08/05/22 08:44 Dose: 300 mg Glucose (Glucose Gel 15 Gm Gel..Gram.) 15 gm PO Q15M PRN; Protocol PRN Reason: per Hypoglycemia Standing Ord. Hydromorphone HCl (Hydromorphone Hcl 1 Mg/Ml Syringe) 0.5 mg IVPUSH Q4H PRN; Protocol PRN Reason: Pain, Severe (Pain Scale 7-10) Last Admin: 08/05/22 10:31 Dose: 0.5 mg Hydroxyzine HCl (Hydroxyzine Hcl 10 Mg Tablet) 20 mg PO QID PRN PRN Reason: itch Piperacillin Sod/Tazobactam (Sod 3.375 gm/ Sodium Chloride) 50 mls @ 100 mls/hr IV Q6H [facility] Last Infusion: 08/05/22 10:19 Dose: Infused Vancomycin HCl 1,500 mg/ (Sodium Chloride) 500 mls @ 333.333 mls/hr IV Q12H [facility] Last Infusion: 08/05/22 13:26 Dose: Infused Insulin Human Lispro (Insulin Lispro 100 Unit/Ml 3 Ml Vial) 0 unit SUBCUT QIDACHS [facility]; Protocol Last Admin: 08/05/22 12:20 Dose: 2 unit Isosorbide Mononitrate (Isosorbide Mononitrate 30 Mg Tab.Er.24h) 30 mg PO DAILY [facility]; Protocol Last Admin: 08/05/22 08:44 Dose: 30 mg Loratadine (Loratadine 10 Mg Tablet) 10 mg PO DAILY [facility] Last Admin: 08/05/22 08:44 Dose: 10 mg Losartan Potassium (Losartan Potassium 25 Mg Tablet) 25 mg PO DAILY [facility]; Protocol Last Admin: 08/05/22 08:45 Dose: 25 mg Meclizine HCl (Meclizine Hcl 25 Mg Tablet) 25 mg PO TID PRN PRN Reason: dizziness Metoprolol Tartrate (Metoprolol Tartrate 25 Mg Tablet) 25 mg PO BID [facility]; Protocol Last Admin: 08/05/22 08:44 Dose: 25 mg Montelukast Sodium (Montelukast Sodium 10 Mg Tablet) 10 mg PO BEDTIME [facility] Last Admin: 08/04/22 20:46 Dose: 10 mg Omeprazole (Omeprazole 20 Mg Capsule.Dr) 20 mg PO BID@0630,1630 [facility] Last Admin: 08/05/22 05:14 Dose: 20 mg Ondansetron HCl (Ondansetron Hcl 4 Mg/2 Ml Vial) 4 mg IVPUSH Q8H PRN PRN Reason: Nausea and Vomiting Ondansetron HCl (Ondansetron Odt 4 Mg Tab.Rapdis) 4 mg TRANSLINGU TID PRN PRN Reason: nausea Oxycodone HCl (Oxycodone Hcl Immed Release 5 Mg Tablet) 10 mg PO Q4H [facility] Last Admin: 08/05/22 12:20 Dose: 10 mg Oxycodone HCl (Oxycodone Hcl Er 10 Mg Tab.Er.12h) 20 mg PO BID [facility] Last Admin: 08/05/22 08:45 Dose: 20 mg Oxycodone HCl (Oxycodone Hcl Immed Release 5 Mg Tablet) 10 mg PO Q4H PRN PRN Reason: Pain, Moderate (Pain Scale 4-6 Pharmacy Consult (Consult Rx Vancomycin Dosing) 1 each MISCELLANE DAILY PRN PRN Reason: Consult order Quetiapine Fumarate (Quetiapine Fumarate 25 Mg Tablet) 12.5 mg PO BEDTIME [facility] Last Admin: 08/04/22 20:47 Dose: 12.5 mg Rivaroxaban (Rivaroxaban 20 Mg Tablet) 20 mg PO DAILY@1700 [facility] Sodium Chloride (0.9 % Sodium Chloride Flush 3 Ml Syringe) 3 ml IVFLUSH QSHIFT [facility] Last Admin: 08/05/22 08:43 Dose: 3 ml Tamsulosin HCl (Tamsulosin Hcl 0.4 Mg Capsule) 0.4 mg PO DAILY [facility] Last Admin: 08/05/22 08:45 Dose: 0.4 mg Thiamine HCl (Thiamine Hcl 100 Mg Tablet) 100 mg PO DAILY [facility] Last Admin: 08/05/22 08:44 Dose: 100 mg Zolpidem Tartrate (Zolpidem Tartrate 5 Mg Tablet) 10 mg PO BEDTIME PRN PRN Reason: insomnia Last Admin: 08/04/22 22:18 Dose: 10 mg Home Medications Medication Instructions Recorded Confirmed Last Taken Type ezetimibe 10 mg tablet 1 tab PO DAILY 01/03/22 08/04/22 08/02/22 History gabapentin 300 mg capsule 1 cap PO TID 01/03/22 08/04/22 08/02/22 History hydroxyzine HCl 10 mg tablet 2 tab PO QID PRN itch 01/03/22 08/04/22 08/02/22 History insulin glargine 100 unit/mL 50 unit subcut BID@12,22 01/03/22 08/04/22 08/02/22 History subcutaneous solution (Lantus U-100 Insulin) insulin lispro 100 unit/mL 30 unit subcut TIDAC 01/03/22 08/04/22 08/02/22 History subcutaneous solution isosorbide mononitrate 30 mg 1 tab PO QAM 01/03/22 08/04/22 08/02/22 History tablet,extended release 24 hr loratadine 10 mg tablet 1 tab PO DAILY 01/03/22 08/04/22 08/02/22 History losartan 25 mg tablet 1 tab PO DAILY 01/03/22 08/04/22 08/02/22 History meclizine 25 mg tablet 1 tab PO TID PRN dizziness 01/03/22 08/04/22 08/02/22 History metoprolol tartrate 25 mg tablet 1 tab PO BID 01/03/22 08/04/22 08/02/22 History montelukast 10 mg tablet 1 tab PO BEDTIME 01/03/22 08/04/22 08/02/22 History ondansetron HCl 4 mg tablet 1 tab PO TID PRN nausea 01/03/22 08/04/22 08/02/22 History oxycodone 20 mg tablet,crush 1 tab PO BID 01/03/22 08/04/22 08/02/22 History resistant,extended release 12 hr (OxyContin) oxycodone 5 mg tablet 2 tab PO Q4H 01/03/22 08/04/22 08/02/22 History pantoprazole 40 mg tablet,delayed 1 tab PO BID@0630,1630 01/03/22 08/04/22 08/02/22 History release quetiapine 25 mg tablet 0.5 tab PO BEDTIME 01/03/22 08/04/22 08/02/22 History rosuvastatin 40 mg tablet 1 tab PO BEDTIME 01/03/22 08/04/22 08/02/22 History thiamine HCl (vitamin B1) 100 mg 1 tab PO DAILY 01/03/22 08/04/22 08/02/22 History tablet zolpidem 10 mg tablet 1 tab PO BEDTIME PRN insomnia 01/03/22 08/04/22 08/02/22 History rivaroxaban 20 mg tablet (Xarelto) 1 tab PO DAILY@1700 07/23/22 08/04/22 08/02/22 History aspirin 81 mg tablet,delayed 1 tab PO DAILY 08/04/22 08/04/22 08/02/22 History release tamsulosin 0.4 mg capsule 1 cap PO DAILY 08/04/22 08/04/22 08/02/22 History Physical Exam Vital Signs: Vital Signs: Last Vital Signs Temp 96.9 F 08/05/22 12:00 Pulse 64 08/05/22 12:00 Resp 15 08/05/22 12:00 BP 124/60 08/05/22 12:00 Pulse Ox 93 08/05/22 12:00 O2 Del Method 08/05/22 12:00 BMI result Body Mass Index 41.8 Const: General: cooperative, healthy appearing and comfortable Orientation/consciousness: oriented to person, oriented to place and oriented to time HEENT: Head: Yes normal to inspection Neck: Neck: Yes normal visual inspection Carotids: no bruits Chest: Chest palpation & inspection: normal inspection of the chest Resp: Effort & Inspection: normal respiratory effort and able to speak in complete sentences Auscultation: clear to auscultation bilaterally, no crackles, no rales, no rhonchi and no wheezes Cardio: Rate: regular rate Rhythm: regular rhythm Heart sounds: S1 normal heart sound present and S2 normal heart sound present Bruits: no carotid bruits Peripheral pulses: dorsalis pedis present ( Left side dorsalis pedis pulse faint possibly secondary to edema) GI: Inspection: Yes normal to inspection Skin: Other: left 2nd toe amp site sutures intact no drainage Wounds: no wounds Hair: normal Neuro: General: oriented to person, oriented to place and oriented to time Cranial nerves: Yes CN's II-XII intact bilaterally and Yes Normal hearing present Cognition (Neuro): normal cognition Motor exam (neuro): 5/5 motor strength present throughout Extrem: Other: venous exam: No significant superficial varicosities or spider telangiectasias, minimal edema General: No clubbing, No cyanosis and No edema Psych: Appearance: grossly normal Mental Status: mental status grossly normal Speech and movement: Normal speech and movement present Results Labs Result diagrams: 08/04/22 06:37 08/05/22 05:48 Labs: Abnormal lab results 08/04/22 08/04/22 08/05/22 Range/Units 15:01 18:57 07:22 POC Glucose 231 H 239 H 227 H (60-115) mg/dL Vancomycin Trough (10.0-20.0) mcg/mL 08/05/22 08/05/22 Range/Units 09:13 11:19 POC Glucose 158 H (60-115) mg/dL Vancomycin Trough 8.9 L (10.0-20.0) mcg/mL BMP 08/05/22 05:48 Creatinine 0.68 All other labs normal. Assessment and Plan (1) PAD (peripheral artery disease): Status: Acute Plan in short patient has a nonhealing left 2nd foot ulcer. Would plan for noninvasive testing to ensure he has adequate arterial flow. At the current time agree with continued IV antibiotics and local wound care. We will order noninvasive testing and follow with you. Thank you for allowing us to assist in his care. Procedures Date of Service Date of Service: 08/05/22
[2022-08-05 15:53] LABS: Glucose, Whole Blood 202 mg/dL (60-115)
[2022-08-05 16:00] VITALS: BP 137/63; PULSE 57; RESP 15; TEMP 35.5; O2SAT 94
[2022-08-05] MEDS: Rivaroxaban 20 MG TABLET PO (16:38)
[2022-08-05 19:13] VITALS: BP 117/58; PULSE 66; RESP 17; TEMP 36.4; O2SAT 95
[2022-08-05 19:39] LABS: Glucose, Whole Blood 228 mg/dL (60-115)
[2022-08-05] MEDS: QUEtiapine Fumarate 25 MG TABLET 12.5 MG PO (21:13)
[2022-08-05] MEDS: Atorvastatin Calcium 80 MG TABLET PO (21:14)
[2022-08-05] MEDS: Montelukast Sodium 10 MG TABLET PO (21:14)
[2022-08-05] MEDS: vancomycin HCL 1,500 MG in 0.9 % Sodium Chloride 500 ML 333.3 MG IV (22:44)
[2022-08-05] MEDS: Zolpidem Tartrate 5 MG TABLET 10 MG PO (22:50)
[2022-08-05 23:34] VITALS: BP 161/69; PULSE 68; RESP 18; TEMP 36.2; O2SAT 96
[2022-08-06] MEDS: oxyCODONE HCl Immed Release 5 MG TABLET 10 MG PO ×7 (00:20→23:36)
[2022-08-06] MEDS: Piperacillin Sodium/Tazobactam 3.375 GM in 0.9 % Sodium Chloride 50 ML IV ×4 (02:25→20:01)
[2022-08-06] MEDS: Enoxaparin Sodium 40 MG/0.4 ML SYRINGE SUBCUT (02:30)
[2022-08-06] MEDS: HYDROmorphone HCl 1 MG/ML SYRINGE 0.5 MG IVPUSH ×5 (02:30→21:10)
[2022-08-06 03:39] VITALS: BP 150/69; PULSE 68; RESP 18; TEMP 36.1; O2SAT 98
[2022-08-06] MEDS: Omeprazole 20 MG CAPSULE.DR PO ×2 (05:30→16:43)
[2022-08-06 06:56] LABS: Creatinine Clr Calc Pharmacy 121.6; Estimated Glomerular Filt Rate > 60
--- NOTE | 2022-08-06 07:46 | PM.PNGS ---
Subjective Subjective Date of Service: 08/06/22 Interval history: Patient returns to the hospital with increased pain and swelling of the left foot, s/p amputation of the 2nd toe. He reports continued pain especially when weight is applied to the foot. Physical Exam Vital Signs: Vital Signs: Last Vital Signs Temp 97 F 08/06/22 03:39 Pulse 68 08/06/22 03:39 Resp 18 08/06/22 03:39 BP 150/69 H 08/06/22 03:39 Pulse Ox 98 08/06/22 03:39 O2 Del Method 08/06/22 03:39 BMI result Body Mass Index 41.8 Const: General: tired appearing Nutritional Appearance: well nourished Orientation/consciousness: patient oriented x3 Resp: Other: Breathing comfortably on room air, no respiratory distress Skin: Other: Warm, dry, no rash, with normal color. Neuro: General: patient oriented x3 Extrem: Other: Dressings changed to left foot. Serosanguineous discharge noted from proximal incision. One suture removed to allow better drainage. Surrounding erythema noted. Wound is not fluctuant however. Objective Data Active Medications Acetaminophen (Acetaminophen 325 Mg Tablet) 650 mg PO Q6H PRN PRN Reason: Pain, Mild (Pain Scale 1-3) Last Admin: 08/05/22 14:39 Dose: 650 mg Documented By: MAMIE Aspirin (Aspirin Enteric Coated 81 Mg Tablet.) 81 mg PO DAILY [facility] Last Admin: 08/05/22 09:48 Dose: 81 mg Documented By: MAMIE Atorvastatin Calcium (Atorvastatin Calcium 80 Mg Tablet) 80 mg PO BEDTIME [facility] Last Admin: 08/05/22 21:14 Dose: 80 mg Documented By: KARLI Dextrose (Dextrose 50 % 25 Gm/50 Ml Syringe) 25 gm IVPUSH Q15M PRN; Protocol PRN Reason: per Hypoglycemia Standing Ord. Ezetimibe (Ezetimibe 10 Mg Tablet) 10 mg PO DAILY [facility] Last Admin: 08/05/22 08:44 Dose: 10 mg Documented By: MAMIE Enoxaparin Sodium (Enoxaparin Sodium 40 Mg/0.4 Ml Syringe) 40 mg SUBCUT Q24H [facility] Last Admin: 08/06/22 02:30 Dose: 40 mg Documented By: KARLI Gabapentin (Gabapentin 300 Mg Capsule) 300 mg PO TID [facility] Last Admin: 08/05/22 21:13 Dose: 300 mg Documented By: KARLI Glucose (Glucose Gel 15 Gm Gel..Gram.) 15 gm PO Q15M PRN; Protocol PRN Reason: per Hypoglycemia Standing Ord. Hydromorphone HCl (Hydromorphone Hcl 1 Mg/Ml Syringe) 0.5 mg IVPUSH Q4H PRN; Protocol PRN Reason: Pain, Severe (Pain Scale 7-10) Last Admin: 08/06/22 02:30 Dose: 0.5 mg Documented By: KARLI Hydroxyzine HCl (Hydroxyzine Hcl 10 Mg Tablet) 20 mg PO QID PRN PRN Reason: itch Piperacillin Sod/Tazobactam (Sod 3.375 gm/ Sodium Chloride) 50 mls @ 100 mls/hr IV Q6H [facility] Last Infusion: 08/06/22 03:18 Dose: 100 mls/hr Documented By: KARLI Vancomycin HCl 1,500 mg/ (Sodium Chloride) 500 mls @ 333.333 mls/hr IV Q12H [facility] Last Infusion: 08/06/22 00:27 Dose: 333.3 mls/hr Documented By: KARLI Insulin Human Lispro (Insulin Lispro 100 Unit/Ml 3 Ml Vial) 0 unit SUBCUT QIDACHS [facility]; Protocol Last Admin: 08/05/22 21:15 Dose: 4 unit Documented By: KARLI Isosorbide Mononitrate (Isosorbide Mononitrate 30 Mg Tab.Er.24h) 30 mg PO DAILY [facility]; Protocol Last Admin: 08/05/22 08:44 Dose: 30 mg Documented By: MAMIE Loratadine (Loratadine 10 Mg Tablet) 10 mg PO DAILY [facility] Last Admin: 08/05/22 08:44 Dose: 10 mg Documented By: MAMIE Losartan Potassium (Losartan Potassium 25 Mg Tablet) 25 mg PO DAILY [facility]; Protocol Last Admin: 08/05/22 08:45 Dose: 25 mg Documented By: MAMIE Meclizine HCl (Meclizine Hcl 25 Mg Tablet) 25 mg PO TID PRN PRN Reason: dizziness Metoprolol Tartrate (Metoprolol Tartrate 25 Mg Tablet) 25 mg PO BID [facility]; Protocol Last Admin: 08/05/22 21:14 Dose: 25 mg Documented By: KARLI Montelukast Sodium (Montelukast Sodium 10 Mg Tablet) 10 mg PO BEDTIME [facility] Last Admin: 08/05/22 21:14 Dose: 10 mg Documented By: KARLI Omeprazole (Omeprazole 20 Mg Capsule.Dr) 20 mg PO BID@0630,1630 [facility] Last Admin: 08/06/22 05:30 Dose: 20 mg Documented By: KARLI Ondansetron HCl (Ondansetron Hcl 4 Mg/2 Ml Vial) 4 mg IVPUSH Q8H PRN PRN Reason: Nausea and Vomiting Ondansetron HCl (Ondansetron Odt 4 Mg Tab.Rapdis) 4 mg TRANSLINGU TID PRN PRN Reason: nausea Oxycodone HCl (Oxycodone Hcl Immed Release 5 Mg Tablet) 10 mg PO Q4H [facility] Last Admin: 08/06/22 05:29 Dose: 10 mg Documented By: KARLI Oxycodone HCl (Oxycodone Hcl Er 10 Mg Tab.Er.12h) 20 mg PO BID [facility] Last Admin: 08/05/22 21:14 Dose: 20 mg Documented By: KARLI Oxycodone HCl (Oxycodone Hcl Immed Release 5 Mg Tablet) 10 mg PO Q4H PRN PRN Reason: Pain, Moderate (Pain Scale 4-6 Pharmacy Consult (Consult Rx Vancomycin Dosing) 1 each MISCELLANE DAILY PRN PRN Reason: Consult order Quetiapine Fumarate (Quetiapine Fumarate 25 Mg Tablet) 12.5 mg PO BEDTIME [facility] Last Admin: 08/05/22 21:13 Dose: 12.5 mg Documented By: KARLI Rivaroxaban (Rivaroxaban 20 Mg Tablet) 20 mg PO DAILY@1700 [facility] Last Admin: 08/05/22 16:38 Dose: 20 mg Documented By: MAMIE Sodium Chloride (0.9 % Sodium Chloride Flush 3 Ml Syringe) 3 ml IVFLUSH QSHIFT [facility] Last Admin: 08/05/22 21:16 Dose: 3 ml Documented By: KARLI Tamsulosin HCl (Tamsulosin Hcl 0.4 Mg Capsule) 0.4 mg PO DAILY [facility] Last Admin: 08/05/22 08:45 Dose: 0.4 mg Documented By: MAMIE Thiamine HCl (Thiamine Hcl 100 Mg Tablet) 100 mg PO DAILY [facility] Last Admin: 08/05/22 08:44 Dose: 100 mg Documented By: MAMIE Zolpidem Tartrate (Zolpidem Tartrate 5 Mg Tablet) 10 mg PO BEDTIME PRN PRN Reason: insomnia Last Admin: 08/05/22 22:50 Dose: 10 mg Documented By: KARLI Labs CBC & Chem 7: 08/04/22 06:37 08/06/22 05:50 Labs: Laboratory Results - last 24 hr 08/05/22 08/05/22 08/05/22 07:22 09:13 11:19 Estim Creat Clear Calc Estimated GFR POC Glucose 227 H 158 H Vancomycin Trough 8.9 L 08/05/22 08/05/22 08/06/22 15:28 19:15 05:50 Estim Creat Clear Calc 121.6 Estimated GFR > 60 POC Glucose 202 H 228 H Vancomycin Trough Microbiology Microbiology Results: Microbiology 08/04/22 00:19 Blood Culture - Preliminary Blood - Venous No growth after 48 hours. 08/04/22 00:19 Blood Culture - Preliminary Blood - Venous No growth after 48 hours. Procedures Date of Service Date of Service: 08/06/22 Progress Note: A&P Assessment and plan (1) Osteomyelitis: Status: Acute Assessment and Plan: s/p toe amp, 2nd toe 07/29/22 c/o pain imaging reviewed - no abscess or fluid collection changes seen likely postop dressings changed - wrapped foot in Kerlix elevated leg on pillows continue IV abx pain meds Plan 61-year-old male patient with osteomyelitis involving the 2nd toe left foot status post amputation 1 week ago. Patient returns with increased pain 10/10 with swelling and discharge. He is admitted for IV antibiotics. CT and MRI reviewed. Dressings changed this morning. One suture removed to allow better drainage. Patient currently on Zosyn and vancomycin. Continue local wound care and antibiotics. Time Spent With Patient Time: Total time spent is greater than 50% in coordination of care (as documented) at patient's floor/unit and/or counseling patient: Quality Stroke Does the patient have a stroke diagnosis?: No VTE Prior VTE?: No VTE Risk Level:: Medical - moderate - high VTE Device Contraindication: Treatment Not Indicated VTE Drug Contraindication: N/A - Med Ordered
[2022-08-06 07:47] VITALS: BP 138/66; PULSE 69; RESP 16; TEMP 36; O2SAT 97
[2022-08-06] MEDS: 0.9 % Sodium Chloride Flush 3 ML SYRINGE IVFLUSH ×3 (07:50→20:03)
[2022-08-06] MEDS: oxyCODONE HCl ER 10 MG TAB.ER.12H 20 MG PO ×2 (07:50→20:01)
[2022-08-06] MEDS: Ezetimibe 10 MG TABLET PO (07:51)
[2022-08-06] MEDS: Loratadine 10 MG TABLET PO (07:51)
[2022-08-06] MEDS: Metoprolol Tartrate 25 MG TABLET PO ×2 (07:51→20:01)
[2022-08-06] MEDS: Losartan Potassium 25 MG TABLET PO (07:51)
[2022-08-06] MEDS: Isosorbide Mononitrate 30 MG TAB.ER.24H PO (07:51)
[2022-08-06] MEDS: Tamsulosin HCL 0.4 MG CAPSULE PO (07:51)
[2022-08-06] MEDS: Thiamine HCL 100 MG TABLET PO (07:51)
[2022-08-06] MEDS: Gabapentin 300 MG CAPSULE PO ×3 (07:52→20:01)
[2022-08-06 07:53] LABS: Glucose, Whole Blood 269 mg/dL (60-115)
[2022-08-06] MEDS: Insulin Lispro 100 UNIT/ML 3 ML VIAL SUBCUT ×4 (08:44→20:03)
[2022-08-06] MEDS: Aspirin Enteric Coated 81 MG TABLET.DR PO (08:45)
[2022-08-06] MEDS: vancomycin HCL 1,500 MG in 0.9 % Sodium Chloride 500 ML 333.3 MG IV (10:40)
--- NOTE | 2022-08-06 11:28 | HO.PM.IMPN ---
Subjective Subjective Date of Service: 08/06/22 Interval History: c/o severe surgical site pain no fever Review of Systems Review of Systems: Yes all other systems are reviewed and are negative Physical Exam Vital Signs: Vital Signs: Last Vital Signs Temp 96.8 F 08/06/22 07:47 Pulse 69 08/06/22 07:47 Resp 16 08/06/22 07:47 BP 138/66 08/06/22 07:47 Pulse Ox 97 08/06/22 07:47 O2 Del Method 08/06/22 07:47 BMI result Body Mass Index 41.8 Gen: in no acute distress HEENT: sclera anicteric, moist mucus membranes Neck: supple Lungs: clear to auscultation bilaterally Heart: regular rate and rhythm, no murmurs Abd: soft, non-tender, non-distended Ext: no edema Skin: warm/well-perfused, L foot with incisions as noted, minimal serosanguinous drainage but no purulence; erythema surrounding wound Neuro: alert and oriented x3, no focal findings Psych: appropriate affect Objective Data Active Medications Acetaminophen (Acetaminophen 325 Mg Tablet) 650 mg PO Q6H PRN PRN Reason: Pain, Mild (Pain Scale 1-3) Last Admin: 08/05/22 14:39 Dose: 650 mg Documented By: MAMIE Aspirin (Aspirin Enteric Coated 81 Mg Tablet.) 81 mg PO DAILY [facility] Last Admin: 08/06/22 08:45 Dose: 81 mg Documented By: MAMIE Atorvastatin Calcium (Atorvastatin Calcium 80 Mg Tablet) 80 mg PO BEDTIME [facility] Last Admin: 08/05/22 21:14 Dose: 80 mg Documented By: KARLI Dextrose (Dextrose 50 % 25 Gm/50 Ml Syringe) 25 gm IVPUSH Q15M PRN; Protocol PRN Reason: per Hypoglycemia Standing Ord. Ezetimibe (Ezetimibe 10 Mg Tablet) 10 mg PO DAILY [facility] Last Admin: 08/06/22 07:51 Dose: 10 mg Documented By: MAMIE Enoxaparin Sodium (Enoxaparin Sodium 40 Mg/0.4 Ml Syringe) 40 mg SUBCUT Q24H [facility] Last Admin: 08/06/22 02:30 Dose: 40 mg Documented By: KARLI Gabapentin (Gabapentin 300 Mg Capsule) 300 mg PO TID [facility] Last Admin: 08/06/22 07:52 Dose: 300 mg Documented By: MAMIE Glucose (Glucose Gel 15 Gm Gel..Gram.) 15 gm PO Q15M PRN; Protocol PRN Reason: per Hypoglycemia Standing Ord. Hydromorphone HCl (Hydromorphone Hcl 1 Mg/Ml Syringe) 0.5 mg IVPUSH Q3H PRN; Protocol PRN Reason: Pain, Severe (Pain Scale 7-10) Last Admin: 08/06/22 10:40 Dose: 0.5 mg Documented By: MAMIE Hydromorphone HCl (Hydromorphone Hcl 0.5 Mg/0.5 Ml Syringe) 0.5 mg IVPUSH Q2H PRN; Protocol PRN Reason: severe pain Hydroxyzine HCl (Hydroxyzine Hcl 10 Mg Tablet) 20 mg PO QID PRN PRN Reason: itch Piperacillin Sod/Tazobactam (Sod 3.375 gm/ Sodium Chloride) 50 mls @ 100 mls/hr IV Q6H [facility] Last Infusion: 08/06/22 08:48 Dose: 0 mls/hr Documented By: MAMIE Vancomycin HCl 1,500 mg/ (Sodium Chloride) 500 mls @ 333.333 mls/hr IV Q12H [facility] Last Admin: 08/06/22 10:40 Dose: 333.3 mls/hr Documented By: MAMIE Insulin Human Lispro (Insulin Lispro 100 Unit/Ml 3 Ml Vial) 0 unit SUBCUT QIDACHS [facility]; Protocol Last Admin: 08/06/22 08:44 Dose: 6 unit Documented By: MAMIE Isosorbide Mononitrate (Isosorbide Mononitrate 30 Mg Tab.Er.24h) 30 mg PO DAILY [facility]; Protocol Last Admin: 08/06/22 07:51 Dose: 30 mg Documented By: MAMIE Loratadine (Loratadine 10 Mg Tablet) 10 mg PO DAILY [facility] Last Admin: 08/06/22 07:51 Dose: 10 mg Documented By: MAMIE Losartan Potassium (Losartan Potassium 25 Mg Tablet) 25 mg PO DAILY [facility]; Protocol Last Admin: 08/06/22 07:51 Dose: 25 mg Documented By: MAMIE Meclizine HCl (Meclizine Hcl 25 Mg Tablet) 25 mg PO TID PRN PRN Reason: dizziness Metoprolol Tartrate (Metoprolol Tartrate 25 Mg Tablet) 25 mg PO BID [facility]; Protocol Last Admin: 08/06/22 07:51 Dose: 25 mg Documented By: MAMIE Montelukast Sodium (Montelukast Sodium 10 Mg Tablet) 10 mg PO BEDTIME [facility] Last Admin: 08/05/22 21:14 Dose: 10 mg Documented By: KARLI Omeprazole (Omeprazole 20 Mg Capsule.Dr) 20 mg PO BID@0630,1630 [facility] Last Admin: 08/06/22 05:30 Dose: 20 mg Documented By: KARLI Ondansetron HCl (Ondansetron Hcl 4 Mg/2 Ml Vial) 4 mg IVPUSH Q8H PRN PRN Reason: Nausea and Vomiting Ondansetron HCl (Ondansetron Odt 4 Mg Tab.Rapdis) 4 mg TRANSLINGU TID PRN PRN Reason: nausea Oxycodone HCl (Oxycodone Hcl Immed Release 5 Mg Tablet) 10 mg PO Q4H [facility] Last Admin: 08/06/22 07:50 Dose: 10 mg Documented By: MAMIE Oxycodone HCl (Oxycodone Hcl Er 10 Mg Tab.Er.12h) 20 mg PO BID [facility] Last Admin: 08/06/22 07:50 Dose: 20 mg Documented By: MAMIE Oxycodone HCl (Oxycodone Hcl Immed Release 5 Mg Tablet) 10 mg PO Q4H PRN PRN Reason: Pain, Moderate (Pain Scale 4-6 Pharmacy Consult (Consult Rx Vancomycin Dosing) 1 each MISCELLANE DAILY PRN PRN Reason: Consult order Quetiapine Fumarate (Quetiapine Fumarate 25 Mg Tablet) 12.5 mg PO BEDTIME [facility] Last Admin: 08/05/22 21:13 Dose: 12.5 mg Documented By: KARLI Rivaroxaban (Rivaroxaban 20 Mg Tablet) 20 mg PO DAILY@1700 [facility] Last Admin: 08/05/22 16:38 Dose: 20 mg Documented By: MAMIE Sodium Chloride (0.9 % Sodium Chloride Flush 3 Ml Syringe) 3 ml IVFLUSH QSHIFT [facility] Last Admin: 08/06/22 07:50 Dose: 3 ml Documented By: MAMIE Tamsulosin HCl (Tamsulosin Hcl 0.4 Mg Capsule) 0.4 mg PO DAILY [facility] Last Admin: 08/06/22 07:51 Dose: 0.4 mg Documented By: MAMIE Thiamine HCl (Thiamine Hcl 100 Mg Tablet) 100 mg PO DAILY [facility] Last Admin: 08/06/22 07:51 Dose: 100 mg Documented By: MAMIE Zolpidem Tartrate (Zolpidem Tartrate 5 Mg Tablet) 10 mg PO BEDTIME PRN PRN Reason: insomnia Last Admin: 08/05/22 22:50 Dose: 10 mg Documented By: KARLI Labs CBC & Chem 7: 08/04/22 06:37 08/06/22 05:50 Labs: Laboratory Results - last 24 hr 08/05/22 08/05/22 08/05/22 11:19 15:28 19:15 Estim Creat Clear Calc Estimated GFR POC Glucose 158 H 202 H 228 H 08/06/22 08/06/22 05:50 07:44 Estim Creat Clear Calc 121.6 Estimated GFR > 60 POC Glucose 269 H Microbiology Microbiology Results: Microbiology 08/04/22 00:19 Blood Culture - Preliminary Blood - Venous No growth after 48 hours. 08/04/22 00:19 Blood Culture - Preliminary Blood - Venous No growth after 48 hours. Assessment and Plan (1) Cellulitis and abscess of foot: Status: Acute (2) Diabetic osteomyelitis: Status: Acute (3) Osteomyelitis: Status: Acute (4) Leukocytosis: Status: Acute Plan d#3 61yo M with DM2, osteomyelitis s/p recent amputation of 1st + 2nd L foot metatarsals presenting with nonhealing wound after 2nd MT amputation 07/29/22 # acute osteomyelitis assoc with DM # cellulitis of L foot assoc with DM # PAD - patient underwent amputation of 2nd metatarsal on 07/29 after nonhealing wound + failing outpatient antibiotics - per Gen Surg, postoperative site changes - ID consult pending. on d#3 vanc + pip/coleen - Vasc Surg consulted, arterial studies pending # pAF - continue metoprolol - continue rivaroxaban # CAD - continue ASA, Imdur, losartan, atorvastatin, metoprolol # DM2 - correction-dose lispro # VTE ppx: rivaroxaban In my clinical judgment, the patient requires continued hospitalization for the following reasons: IV ABX Quality Stroke Does the patient have a stroke diagnosis?: No VTE Prior VTE?: No VTE Risk Level:: Medical - moderate - high VTE Device Contraindication: Treatment Not Indicated VTE Drug Contraindication: N/A - Med Ordered
[2022-08-06 11:30] LABS: Glucose, Whole Blood 199 mg/dL (60-115)
[2022-08-06 11:38] VITALS: BP 111/55; PULSE 62; RESP 18; TEMP 36.1; O2SAT 96
[2022-08-06 15:50] VITALS: BP 152/72; PULSE 70; RESP 18; TEMP 36; O2SAT 97
[2022-08-06 16:00] LABS: Glucose, Whole Blood 197 mg/dL (60-115)
[2022-08-06] MEDS: Rivaroxaban 20 MG TABLET PO (16:26)
[2022-08-06] MEDS: HYDROmorphone HCl 0.5 MG/0.5 ML SYRINGE IVPUSH (16:27)
[2022-08-06 19:43] VITALS: BP 153/74; PULSE 70; RESP 16; TEMP 36.1; O2SAT 95
[2022-08-06 19:55] LABS: Glucose, Whole Blood 262 mg/dL (60-115)
[2022-08-06] MEDS: QUEtiapine Fumarate 25 MG TABLET 12.5 MG PO (20:01)
[2022-08-06] MEDS: Montelukast Sodium 10 MG TABLET PO (20:01)
[2022-08-06] MEDS: Atorvastatin Calcium 80 MG TABLET PO (20:01)
[2022-08-06] MEDS: Zolpidem Tartrate 5 MG TABLET 10 MG PO (21:10)
[2022-08-06 21:50] LABS: Vancomycin Trough 17.1 mcg/mL (10.0-20.0)
--- NOTE | 2022-08-06 21:59 | HE.PHANOTE ---
[vanco addendum] Trough on 08/06 came back at 17.1; decreased dose to 750mg Q12H to avoid dumping syndrome. New predicted AUC of 556mg/L. Next level to be drawn 08/08/22 @0900
[2022-08-06] MEDS: vancomycin HCL 750 MG in 0.9 % Sodium Chloride 250 ML 265 MG IV (22:07)
[2022-08-06 23:32] VITALS: BP 150/72; PULSE 73; RESP 18; TEMP 36.3; O2SAT 97
[2022-08-07] VITALS (7 sets, daily range): BP systolic 141–164; BP diastolic 62–77; PULSE 67–73; RESP 17–18; TEMP 36.2–36.7; O2SAT 95–97
[2022-08-07] MEDS: Piperacillin Sodium/Tazobactam 3.375 GM in 0.9 % Sodium Chloride 50 ML IV ×4 (01:31→20:14)
[2022-08-07] MEDS: HYDROmorphone HCl 1 MG/ML SYRINGE 0.5 MG IVPUSH ×5 (01:31→21:36)
[2022-08-07] MEDS: Enoxaparin Sodium 40 MG/0.4 ML SYRINGE SUBCUT (01:34)
[2022-08-07] MEDS: oxyCODONE HCl Immed Release 5 MG TABLET 10 MG PO ×5 (05:17→20:13)
[2022-08-07] MEDS: Omeprazole 20 MG CAPSULE.DR PO ×2 (05:17→16:15)
[2022-08-07 07:07] LABS: Glucose, Whole Blood 243 mg/dL (60-115)
[2022-08-07] MEDS: Insulin Lispro 100 UNIT/ML 3 ML VIAL SUBCUT ×4 (08:25→20:14)
[2022-08-07] MEDS: 0.9 % Sodium Chloride Flush 3 ML SYRINGE IVFLUSH ×3 (08:25→20:14)
--- NOTE | 2022-08-07 09:11 | HO.PM.IMPN ---
Subjective Subjective Date of Service: 08/07/22 Interval History: surgical site pain no fever endorses chills Review of Systems Review of Systems: Yes all other systems are reviewed and are negative Physical Exam Vital Signs: Vital Signs: Last Vital Signs Temp 97.3 F 08/07/22 07:06 Pulse 67 08/07/22 07:06 Resp 18 08/07/22 07:06 BP 141/62 H 08/07/22 07:06 Pulse Ox 96 08/07/22 07:06 O2 Del Method 08/07/22 07:06 BMI result Body Mass Index 41.8 Gen: in no acute distress HEENT: sclera anicteric, moist mucus membranes Neck: supple Lungs: clear to auscultation bilaterally Heart: regular rate and rhythm, no murmurs Abd: soft, non-tender, non-distended Ext: no edema Skin: warm/well-perfused, L foot with surgical incisions with stitches, minimal serosanguinous drainage but no purulence; erythema surrounding wound Neuro: alert and oriented x3, no focal findings Psych: appropriate affect Objective Data Active Medications Acetaminophen (Acetaminophen 325 Mg Tablet) 650 mg PO Q6H PRN PRN Reason: Pain, Mild (Pain Scale 1-3) Last Admin: 08/05/22 14:39 Dose: 650 mg Documented By: MAMIE Aspirin (Aspirin Enteric Coated 81 Mg Tablet.) 81 mg PO DAILY [facility] Last Admin: 08/06/22 08:45 Dose: 81 mg Documented By: MAMIE Atorvastatin Calcium (Atorvastatin Calcium 80 Mg Tablet) 80 mg PO BEDTIME [facility] Last Admin: 08/06/22 20:01 Dose: 80 mg Documented By: GABINO Dextrose (Dextrose 50 % 25 Gm/50 Ml Syringe) 25 gm IVPUSH Q15M PRN; Protocol PRN Reason: per Hypoglycemia Standing Ord. Ezetimibe (Ezetimibe 10 Mg Tablet) 10 mg PO DAILY [facility] Last Admin: 08/06/22 07:51 Dose: 10 mg Documented By: MAMIE Enoxaparin Sodium (Enoxaparin Sodium 40 Mg/0.4 Ml Syringe) 40 mg SUBCUT Q24H [facility] Last Admin: 08/07/22 01:34 Dose: 40 mg Documented By: GABINO Gabapentin (Gabapentin 300 Mg Capsule) 300 mg PO TID [facility] Last Admin: 08/06/22 20:01 Dose: 300 mg Documented By: GABINO Glucose (Glucose Gel 15 Gm Gel..Gram.) 15 gm PO Q15M PRN; Protocol PRN Reason: per Hypoglycemia Standing Ord. Hydromorphone HCl (Hydromorphone Hcl 1 Mg/Ml Syringe) 0.5 mg IVPUSH Q3H PRN; Protocol PRN Reason: Pain, Severe (Pain Scale 7-10) Last Admin: 08/07/22 06:39 Dose: 0.5 mg Documented By: GABINO Hydromorphone HCl (Hydromorphone Hcl 0.5 Mg/0.5 Ml Syringe) 0.5 mg IVPUSH Q2H PRN; Protocol PRN Reason: severe pain Last Admin: 08/06/22 16:27 Dose: 0.5 mg Documented By: MAMIE Hydroxyzine HCl (Hydroxyzine Hcl 10 Mg Tablet) 20 mg PO QID PRN PRN Reason: itch Piperacillin Sod/Tazobactam (Sod 3.375 gm/ Sodium Chloride) 50 mls @ 100 mls/hr IV Q6H [facility] Last Admin: 08/07/22 08:23 Dose: 100 mls/hr Documented By: ANA M Vancomycin HCl 750 mg/ Sodium (Chloride) 265 mls @ 265 mls/hr IV Q12H [facility] Last Infusion: 08/06/22 23:11 Dose: 0 mls/hr Documented By: GABINO Insulin Human Lispro (Insulin Lispro 100 Unit/Ml 3 Ml Vial) 0 unit SUBCUT QIDACHS [facility]; Protocol Last Admin: 08/07/22 08:25 Dose: 4 unit Documented By: ANA M Isosorbide Mononitrate (Isosorbide Mononitrate 30 Mg Tab.Er.24h) 30 mg PO DAILY [facility]; Protocol Last Admin: 08/06/22 07:51 Dose: 30 mg Documented By: MAMIE Loratadine (Loratadine 10 Mg Tablet) 10 mg PO DAILY [facility] Last Admin: 08/06/22 07:51 Dose: 10 mg Documented By: MAMIE Losartan Potassium (Losartan Potassium 25 Mg Tablet) 25 mg PO DAILY [facility]; Protocol Last Admin: 08/06/22 07:51 Dose: 25 mg Documented By: MAMIE Meclizine HCl (Meclizine Hcl 25 Mg Tablet) 25 mg PO TID PRN PRN Reason: dizziness Metoprolol Tartrate (Metoprolol Tartrate 25 Mg Tablet) 25 mg PO BID [facility]; Protocol Last Admin: 08/06/22 20:01 Dose: 25 mg Documented By: GABINO Montelukast Sodium (Montelukast Sodium 10 Mg Tablet) 10 mg PO BEDTIME [facility] Last Admin: 08/06/22 20:01 Dose: 10 mg Documented By: GABINO Omeprazole (Omeprazole 20 Mg Capsule.Dr) 20 mg PO BID@0630,1630 [facility] Last Admin: 08/07/22 05:17 Dose: 20 mg Documented By: MARY Ondansetron HCl (Ondansetron Hcl 4 Mg/2 Ml Vial) 4 mg IVPUSH Q8H PRN PRN Reason: Nausea and Vomiting Ondansetron HCl (Ondansetron Odt 4 Mg Tab.Rapdis) 4 mg TRANSLINGU TID PRN PRN Reason: nausea Oxycodone HCl (Oxycodone Hcl Immed Release 5 Mg Tablet) 10 mg PO Q4H [facility] Last Admin: 08/07/22 08:25 Dose: 10 mg Documented By: ANA M Oxycodone HCl (Oxycodone Hcl Er 10 Mg Tab.Er.12h) 20 mg PO BID [facility] Last Admin: 08/06/22 20:01 Dose: 20 mg Documented By: GABINO Oxycodone HCl (Oxycodone Hcl Immed Release 5 Mg Tablet) 10 mg PO Q4H PRN PRN Reason: Pain, Moderate (Pain Scale 4-6 Pharmacy Consult (Consult Rx Vancomycin Dosing) 1 each MISCELLANE DAILY PRN PRN Reason: Consult order Quetiapine Fumarate (Quetiapine Fumarate 25 Mg Tablet) 12.5 mg PO BEDTIME [facility] Last Admin: 08/06/22 20:01 Dose: 12.5 mg Documented By: GABINO Rivaroxaban (Rivaroxaban 20 Mg Tablet) 20 mg PO DAILY@1700 [facility] Last Admin: 08/06/22 16:26 Dose: 20 mg Documented By: MAMIE Sodium Chloride (0.9 % Sodium Chloride Flush 3 Ml Syringe) 3 ml IVFLUSH QSHIFT [facility] Last Admin: 08/07/22 08:25 Dose: 3 ml Documented By: ANA M Tamsulosin HCl (Tamsulosin Hcl 0.4 Mg Capsule) 0.4 mg PO DAILY [facility] Last Admin: 08/06/22 07:51 Dose: 0.4 mg Documented By: MAMIE Thiamine HCl (Thiamine Hcl 100 Mg Tablet) 100 mg PO DAILY [facility] Last Admin: 08/06/22 07:51 Dose: 100 mg Documented By: MAMIE Zolpidem Tartrate (Zolpidem Tartrate 5 Mg Tablet) 10 mg PO BEDTIME PRN PRN Reason: insomnia Last Admin: 08/06/22 21:10 Dose: 10 mg Documented By: MAUREENQC Labs CBC & Chem 7: 08/04/22 06:37 08/06/22 05:50 Labs: Laboratory Results - last 24 hr 08/06/22 08/06/22 08/06/22 11:25 15:53 19:45 POC Glucose 199 H 197 H 262 H Vancomycin Trough 08/06/22 08/07/22 20:58 07:00 POC Glucose 243 H Vancomycin Trough 17.1 Impressions Abd US [id number] 08/06/22 15:38 IMPRESSION: The FLORA is 1.34 on the right and left, likely secondary to calcified, noncompressible vessels. On the right there is focal elevated velocity at the origin of the profunda femoris suggesting at least a moderate stenosis. On the left there is monophasic flow within the posterior tibial arteries and no demonstrable Doppler signal within the peroneal artery. Uncertain if this is secondary to occlusion or dense calcification of the vessels. Correlation with toe brachial index may be helpful. Duplex Scan Lower Extremity Artery 08/06/22 15:38 IMPRESSION: The FLORA is 1.34 on the right and left, likely secondary to calcified, noncompressible vessels. On the right there is focal elevated velocity at the origin of the profunda femoris suggesting at least a moderate stenosis. On the left there is monophasic flow within the posterior tibial arteries and no demonstrable Doppler signal within the peroneal artery. Uncertain if this is secondary to occlusion or dense calcification of the vessels. Correlation with toe brachial index may be helpful. Assessment and Plan (1) Cellulitis and abscess of foot: Status: Acute (2) Diabetic osteomyelitis: Status: Acute (3) Osteomyelitis: Status: Acute (4) Leukocytosis: Status: Acute Plan d#4 61yo M with DM2, osteomyelitis s/p recent amputation of 1st + 2nd L foot metatarsals presenting with nonhealing wound after 2nd MT amputation 07/29/22 # acute osteomyelitis assoc with DM # cellulitis of L foot assoc with DM # PAD - patient underwent amputation of 2nd metatarsal on 07/29 after nonhealing wound + failing outpatient antibiotics - ID consult pending; on d#4 vanc + pip/coleen - per Gen Surg, postoperative site changes - Vasc Surg consulted; will review arterial studies re: revascularization procedure # pAF - continue metoprolol - continue rivaroxaban # CAD - continue ASA, Imdur, losartan, atorvastatin, metoprolol # DM2 - correction-dose lispro # VTE ppx: rivaroxaban In my clinical judgment, the patient requires continued hospitalization for the following reasons: IV ABX, vascular intervention Quality Stroke Does the patient have a stroke diagnosis?: No VTE Prior VTE?: No VTE Risk Level:: Medical - moderate - high VTE Device Contraindication: Treatment Not Indicated VTE Drug Contraindication: N/A - Med Ordered
[2022-08-07 09:22] LABS: Creatinine Clr Calc Pharmacy 123.1; Estimated Glomerular Filt Rate > 60
--- NOTE | 2022-08-07 09:46 | HE.PHANOTE ---
Vancomycin Dosing Current regimen expected to be subtherapeutic. Will increase dose to 1000 mg Q12H. New expected AUC 490. Next trough to be drawn 08/08 @ 0900. Nba SalomonD
[2022-08-07] MEDS: Ezetimibe 10 MG TABLET PO (10:30)
[2022-08-07] MEDS: Loratadine 10 MG TABLET PO (10:30)
[2022-08-07] MEDS: Gabapentin 300 MG CAPSULE PO ×3 (10:30→20:13)
[2022-08-07] MEDS: Thiamine HCL 100 MG TABLET PO (10:30)
[2022-08-07] MEDS: Losartan Potassium 25 MG TABLET PO (10:30)
[2022-08-07] MEDS: Aspirin Enteric Coated 81 MG TABLET.DR PO (10:31)
[2022-08-07] MEDS: Isosorbide Mononitrate 30 MG TAB.ER.24H PO (10:31)
[2022-08-07] MEDS: Metoprolol Tartrate 25 MG TABLET PO ×2 (10:31→20:13)
[2022-08-07] MEDS: Tamsulosin HCL 0.4 MG CAPSULE PO (10:31)
[2022-08-07] MEDS: oxyCODONE HCl ER 10 MG TAB.ER.12H 20 MG PO ×2 (10:32→20:13)
[2022-08-07] MEDS: vancomycin HCL 1,000 MG in 0.9 % Sodium Chloride 250 ML 270 MG IV (10:33)
--- NOTE | 2022-08-07 10:35 | P.PNGS_ITS ---
Subjective Subjective Date of Service: 08/07/22 Interval history: Continues with uncontrolled pain. States pain has not improved at all. Has been keeping leg elevated. Physical Exam Vital Signs: Vital Signs: Last Vital Signs Temp 97.3 F 08/07/22 07:06 Pulse 67 08/07/22 10:23 Resp 18 08/07/22 07:06 BP 158/77 H 08/07/22 10:23 Pulse Ox 96 08/07/22 07:06 O2 Del Method 08/07/22 07:06 BMI result Body Mass Index 41.8 Const: General: no acute distress and alert Orientation/consciousness: patient oriented x3 Resp: Effort & Inspection: normal respiratory effort Skin: General skin exam: other (warm and dry) Neuro: General: patient oriented x3 and moves all extremities Extrem: Other: left toe amputation site- edema and erythema of site and forefoot, scant serosanguineous drainage from opening, no purulence, no fluctuance Objective Data Active Medications Acetaminophen (Acetaminophen 325 Mg Tablet) 650 mg PO Q6H PRN PRN Reason: Pain, Mild (Pain Scale 1-3) Last Admin: 08/05/22 14:39 Dose: 650 mg Documented By: MAMIE Aspirin (Aspirin Enteric Coated 81 Mg Tablet.) 81 mg PO DAILY [facility] Last Admin: 08/06/22 08:45 Dose: 81 mg Documented By: MAMIE Atorvastatin Calcium (Atorvastatin Calcium 80 Mg Tablet) 80 mg PO BEDTIME [facility] Last Admin: 08/06/22 20:01 Dose: 80 mg Documented By: GABINO Dextrose (Dextrose 50 % 25 Gm/50 Ml Syringe) 25 gm IVPUSH Q15M PRN; Protocol PRN Reason: per Hypoglycemia Standing Ord. Ezetimibe (Ezetimibe 10 Mg Tablet) 10 mg PO DAILY [facility] Last Admin: 08/06/22 07:51 Dose: 10 mg Documented By: MAMIE Enoxaparin Sodium (Enoxaparin Sodium 40 Mg/0.4 Ml Syringe) 40 mg SUBCUT Q24H [facility] Last Admin: 08/07/22 01:34 Dose: 40 mg Documented By: GABINO Gabapentin (Gabapentin 300 Mg Capsule) 300 mg PO TID [facility] Last Admin: 08/06/22 20:01 Dose: 300 mg Documented By: GABINO Glucose (Glucose Gel 15 Gm Gel..Gram.) 15 gm PO Q15M PRN; Protocol PRN Reason: per Hypoglycemia Standing Ord. Hydromorphone HCl (Hydromorphone Hcl 1 Mg/Ml Syringe) 0.5 mg IVPUSH Q3H PRN; Protocol PRN Reason: Pain, Severe (Pain Scale 7-10) Last Admin: 08/07/22 06:39 Dose: 0.5 mg Documented By: GABINO Hydromorphone HCl (Hydromorphone Hcl 0.5 Mg/0.5 Ml Syringe) 0.5 mg IVPUSH Q2H PRN; Protocol PRN Reason: severe pain Last Admin: 08/06/22 16:27 Dose: 0.5 mg Documented By: MAMIE Hydroxyzine HCl (Hydroxyzine Hcl 10 Mg Tablet) 20 mg PO QID PRN PRN Reason: itch Piperacillin Sod/Tazobactam (Sod 3.375 gm/ Sodium Chloride) 50 mls @ 100 mls/hr IV Q6H [facility] Last Infusion: 08/07/22 09:22 Dose: 0 mls/hr Documented By: MAMIE Vancomycin HCl 1,000 mg/ (Sodium Chloride) 270 mls @ 270 mls/hr IV Q12H [facility] Insulin Human Lispro (Insulin Lispro 100 Unit/Ml 3 Ml Vial) 0 unit SUBCUT QIDACHS [facility]; Protocol Last Admin: 08/07/22 08:25 Dose: 4 unit Documented By: ANA M Isosorbide Mononitrate (Isosorbide Mononitrate 30 Mg Tab.Er.24h) 30 mg PO DAILY [facility]; Protocol Last Admin: 08/06/22 07:51 Dose: 30 mg Documented By: MAMIE Loratadine (Loratadine 10 Mg Tablet) 10 mg PO DAILY [facility] Last Admin: 08/06/22 07:51 Dose: 10 mg Documented By: MAMIE Losartan Potassium (Losartan Potassium 25 Mg Tablet) 25 mg PO DAILY [facility]; Protocol Last Admin: 08/06/22 07:51 Dose: 25 mg Documented By: MAMIE Meclizine HCl (Meclizine Hcl 25 Mg Tablet) 25 mg PO TID PRN PRN Reason: dizziness Metoprolol Tartrate (Metoprolol Tartrate 25 Mg Tablet) 25 mg PO BID [facility]; Protocol Last Admin: 08/06/22 20:01 Dose: 25 mg Documented By: GABINO Montelukast Sodium (Montelukast Sodium 10 Mg Tablet) 10 mg PO BEDTIME [facility] Last Admin: 08/06/22 20:01 Dose: 10 mg Documented By: GABINO Omeprazole (Omeprazole 20 Mg Capsule.Dr) 20 mg PO BID@0630,1630 [facility] Last Admin: 08/07/22 05:17 Dose: 20 mg Documented By: MARY Ondansetron HCl (Ondansetron Hcl 4 Mg/2 Ml Vial) 4 mg IVPUSH Q8H PRN PRN Reason: Nausea and Vomiting Ondansetron HCl (Ondansetron Odt 4 Mg Tab.Rapdis) 4 mg TRANSLINGU TID PRN PRN Reason: nausea Oxycodone HCl (Oxycodone Hcl Immed Release 5 Mg Tablet) 10 mg PO Q4H [facility] Last Admin: 08/07/22 08:25 Dose: 10 mg Documented By: ANA M Oxycodone HCl (Oxycodone Hcl Er 10 Mg Tab.Er.12h) 20 mg PO BID [facility] Last Admin: 08/06/22 20:01 Dose: 20 mg Documented By: GABINO Oxycodone HCl (Oxycodone Hcl Immed Release 5 Mg Tablet) 10 mg PO Q4H PRN PRN Reason: Pain, Moderate (Pain Scale 4-6 Pharmacy Consult (Consult Rx Vancomycin Dosing) 1 each MISCELLANE DAILY PRN PRN Reason: Consult order Quetiapine Fumarate (Quetiapine Fumarate 25 Mg Tablet) 12.5 mg PO BEDTIME [facility] Last Admin: 08/06/22 20:01 Dose: 12.5 mg Documented By: GABINO Rivaroxaban (Rivaroxaban 20 Mg Tablet) 20 mg PO DAILY@1700 [facility] Last Admin: 08/06/22 16:26 Dose: 20 mg Documented By: MAMIE Sodium Chloride (0.9 % Sodium Chloride Flush 3 Ml Syringe) 3 ml IVFLUSH QSHIFT [facility] Last Admin: 08/07/22 08:25 Dose: 3 ml Documented By: ANA M Tamsulosin HCl (Tamsulosin Hcl 0.4 Mg Capsule) 0.4 mg PO DAILY [facility] Last Admin: 08/06/22 07:51 Dose: 0.4 mg Documented By: MAMIE Thiamine HCl (Thiamine Hcl 100 Mg Tablet) 100 mg PO DAILY [facility] Last Admin: 08/06/22 07:51 Dose: 100 mg Documented By: MAMIE Zolpidem Tartrate (Zolpidem Tartrate 5 Mg Tablet) 10 mg PO BEDTIME PRN PRN Reason: insomnia Last Admin: 08/06/22 21:10 Dose: 10 mg Documented By: GABINO Labs CBC & Chem 7: 08/04/22 06:37 08/07/22 08:42 Labs: Laboratory Results - last 24 hr 08/06/22 08/06/22 08/06/22 11:25 15:53 19:45 Estim Creat Clear Calc Estimated GFR POC Glucose 199 H 197 H 262 H Vancomycin Trough 08/06/22 08/07/22 08/07/22 20:58 07:00 08:42 Estim Creat Clear Calc 123.1 Estimated GFR > 60 POC Glucose 243 H Vancomycin Trough 17.1 Procedures Date of Service Date of Service: 08/07/22 Progress Note: A&P Assessment and plan (1) PAD (peripheral artery disease): Status: Acute (2) Osteomyelitis: Status: Acute Plan 61-year-old male patient with osteomyelitis involving the 2nd toe left foot status post amputation 1 week ago. Patient returned with increased pain with swelling and discharge, admitted for IV antibiotics. Dressings changed this morning- edema and erythema of amp site and forefoot but drainage decreased and no purulence or fluctuance appreciated. Patient currently on Zosyn and vancomycin. Continue local wound care and antibiotics. Underwent FLORA yesterday, await vascular input. Time Spent With Patient Time: Total time spent is greater than 50% in coordination of care (as documented) at patient's floor/unit and/or counseling patient: Quality Stroke Does the patient have a stroke diagnosis?: No VTE Prior VTE?: No VTE Risk Level:: Medical - moderate - high VTE Device Contraindication: Treatment Not Indicated VTE Drug Contraindication: N/A - Med Ordered
[2022-08-07 10:57] LABS: Glucose, Whole Blood 201 mg/dL (60-115)
--- NOTE | 2022-08-07 11:25 | P.CDIC_ITS ---
CDI Concurrent Query Documentation Clarification: PHYSICIAN'S DOCUMENTATION REQUEST Date of Query: 08/07/22 1126 Patient Name: Patric Gomez Admit Date: 08/04/22 Dear Doctor, A review of the medical record indicates additional documentation may be needed. Please review below and update the documentation accordingly. Clinical Indicators: Is there a diagnosis that correlates with the findings below: Risk Factors/Clinical Indicators/Treatments BMI: 41.8 HEIGHT: 5FT 8IN WEIGHT: 124.738KG If possible, please provide an associated diagnosis related to the abnormal BMI, such as: For a BMI >= 40: * Severe or Morbid Obesity * Overweight * Obesity * Due to excess calories * Drug induced * Due to other cause Or: * BMI is not significant * Other (please specify) * Unable to determine Use of terms such as suspected, likely, concern for, or probable (associated with a specific diagnosis that is being evaluated, monitored, or treated as if it exists) are acceptable and can be coded in the inpatient setting, when documented at the time of discharge. Thank you, Deepika Short MS, RN, CCRN Extension: [phone] Please use your independent medical judgment in providing your response. THIS QUERY IS PART OF THE PERMANENT MEDICAL RECORD
--- NOTE | 2022-08-07 11:55 | P.CDIC_ITS ---
CDI Concurrent Query Documentation Clarification: PHYSICIAN'S DOCUMENTATION REQUEST Date of Query: 08/07/22 1158 Patient Name: Patric Gomez Admit Date: 08/04/22 Dear Doctor, A review of the medical record indicates additional documentation may be needed. Please review below and update the documentation accordingly. Clinical Indicators: Is there a diagnosis that correlates with these lab findings below: Risk Factors/Clinical Indicators/Treatments LABS: POC on 08/06: 269 POC on 08/07: 243 Please clarify the following regarding Diabetes Mellitus (DM): Complications of DM: * Hyperglycemia * No complications of DM * Other complication ? please specify * Unable to determine Use of terms such as suspected, likely, concern for, or probable (associated with a specific diagnosis that is being evaluated, monitored, or treated as if it exists) are acceptable and can be coded in the inpatient setting, when documented at the time of discharge. Thank you, Deepika Short MS, RN, CCRN Extension: [phone] Please use your independent medical judgment in providing your response. THIS QUERY IS PART OF THE PERMANENT MEDICAL RECORD Provider Response: Other Other Diagnosis: DM hyperglycemia
--- NOTE | 2022-08-07 12:12 | HO.VASCPN ---
Subjective Subjective Date of Service: 08/07/22 Patient reports: still having pain Interval history: Pleasant 61-year-old gentleman presents for follow-up regarding peripheral vascular disease. He had undergone left foot amputation. Wounds continue to be nonhealing. He now presents for follow-up with noninvasive testing. Physical Exam Vital Signs: Vital Signs: Last Vital Signs Temp 97.2 F 08/07/22 11:38 Pulse 70 08/07/22 11:38 Resp 18 08/07/22 11:38 BP 152/74 H 08/07/22 11:38 Pulse Ox 95 08/07/22 11:38 O2 Del Method 08/07/22 11:38 BMI result Body Mass Index 41.8 Const: General: cooperative, healthy appearing and no acute distress Orientation/consciousness: oriented to person, oriented to place and oriented to time HEENT: Head: Yes normal to inspection Neck: Carotids: no bruits Chest: Chest palpation & inspection: normal inspection of the chest Resp: Effort & Inspection: normal respiratory effort and able to speak in complete sentences Auscultation: clear to auscultation bilaterally Cardio: Rate: regular rate Heart sounds: S1 normal heart sound present and S2 normal heart sound present Peripheral pulses: dorsalis pedis present (Bilateral DP signals) GI: Inspection: Yes normal to inspection Skin: General skin exam: no rashes or lesions noted Wounds: wounds noted (Left leg dressing clean dry intact) Neuro: General: oriented to person, oriented to place, oriented to time and CN's II-XI intact bilaterally Extrem: General: Yes normal to inspection, Yes full ROM and Yes no clubbing, cyanosis or edema Psych: Appearance: grossly normal and well kempt Speech and movement: Normal speech and movement present Affect: normal affect Progress Note: A&P Assessment and plan (1) PAD (peripheral artery disease): Status: Acute Assessment and Plan: Patient nonhealing left leg foot ulcer. I have discussed the pathophysiology of peripheral vascular disease with the patient. I have also discussed risk factor modification. I have reviewed the patient's arterial testing which reveals left lower extremity tibial disease. the patient would benefit from a left leg endovascular peripheral angiogram with possible angioplasty, stent, and/or atherectomy. This has been discussed in detail with the patient along with risks, benefits, and complications. This includes but is not limited to bleeding, infection, heart attack, need for emergent surgical repair, limb ischemia, blood vessel damage, bleeding, puncture, kidney injury, bruising, allergic reaction, and skin reaction. The patient demonstrates a clear understanding. We will schedule for the next appropriate time. Thank you for allowing us to assist in this patient's care. Time Spent With Patient Time: Total time spent is greater than 50% in coordination of care (as documented) at patient's floor/unit and/or counseling patient: Procedures Date of Service Date of Service: 08/07/22 Quality Stroke Does the patient have a stroke diagnosis?: No VTE Prior VTE?: No VTE Risk Level:: Medical - moderate - high VTE Device Contraindication: Treatment Not Indicated VTE Drug Contraindication: N/A - Med Ordered
[2022-08-07 16:15] LABS: Glucose, Whole Blood 172 mg/dL (60-115)
[2022-08-07] MEDS: HYDROmorphone HCl 0.5 MG/0.5 ML SYRINGE IVPUSH (17:45)
[2022-08-07 19:35] LABS: Glucose, Whole Blood 328 mg/dL (60-115)
[2022-08-07] MEDS: Atorvastatin Calcium 80 MG TABLET PO (20:13)
[2022-08-07] MEDS: QUEtiapine Fumarate 25 MG TABLET 12.5 MG PO (20:13)
[2022-08-07] MEDS: Montelukast Sodium 10 MG TABLET PO (20:14)
[2022-08-07] MEDS: Zolpidem Tartrate 5 MG TABLET 10 MG PO (21:37)
[2022-08-08] VITALS (13 sets, daily range): BP systolic 133–175; BP diastolic 67–84; PULSE 63–75; RESP 15–19; TEMP 36.2–37.1; O2SAT 91–98; BMI 41.8
[2022-08-08] MEDS: oxyCODONE HCl Immed Release 5 MG TABLET 10 MG PO ×7 (00:03→23:50)
[2022-08-08] MEDS: vancomycin HCL 1,000 MG in 0.9 % Sodium Chloride 250 ML 270 MG IV ×3 (00:04→22:36)
[2022-08-08] MEDS: HYDROmorphone HCl 1 MG/ML SYRINGE 0.5 MG IVPUSH ×2 (00:44→03:45)
[2022-08-08] MEDS: Enoxaparin Sodium 40 MG/0.4 ML SYRINGE SUBCUT (01:09)
[2022-08-08] MEDS: Piperacillin Sodium/Tazobactam 3.375 GM in 0.9 % Sodium Chloride 50 ML IV ×4 (01:09→20:43)
[2022-08-08] MEDS: Omeprazole 20 MG CAPSULE.DR PO ×2 (05:23→15:21)
[2022-08-08 06:13] LABS: Creatinine Clr Calc Pharmacy 118.7; Estimated Glomerular Filt Rate > 60
--- NOTE | 2022-08-08 07:32 | PM.PNGS ---
Subjective Subjective Date of Service: 08/08/22 Interval history: Continues to complain of left foot pain. Pain meds are providing relief. Awaiting vascular procedure today. Physical Exam Vital Signs: Vital Signs: Last Vital Signs Temp 97.1 F 08/08/22 07:15 Pulse 67 08/08/22 07:15 Resp 18 08/08/22 07:15 BP 154/67 H 08/08/22 07:15 Pulse Ox 95 08/08/22 07:15 O2 Del Method 08/08/22 07:15 BMI result Body Mass Index 41.8 Const: General: tired appearing Nutritional Appearance: obese Orientation/consciousness: patient oriented x3 Resp: Effort & Inspection: normal respiratory effort Skin: General skin exam: no rashes or lesions noted Neuro: General: patient oriented x3 Extrem: Other: dressings changed to left foot. Serosanguinous discharge noted, minimal erythema; no fluctuance. Objective Data Active Medications Acetaminophen (Acetaminophen 325 Mg Tablet) 650 mg PO Q6H PRN PRN Reason: Pain, Mild (Pain Scale 1-3) Last Admin: 08/05/22 14:39 Dose: 650 mg Documented By: MAMIE Aspirin (Aspirin Enteric Coated 81 Mg Tablet.) 81 mg PO DAILY [facility] Last Admin: 08/07/22 10:31 Dose: 81 mg Documented By: ANA M Atorvastatin Calcium (Atorvastatin Calcium 80 Mg Tablet) 80 mg PO BEDTIME [facility] Last Admin: 08/07/22 20:13 Dose: 80 mg Documented By: GABINO Dextrose (Dextrose 50 % 25 Gm/50 Ml Syringe) 25 gm IVPUSH Q15M PRN; Protocol PRN Reason: per Hypoglycemia Standing Ord. Ezetimibe (Ezetimibe 10 Mg Tablet) 10 mg PO DAILY [facility] Last Admin: 08/07/22 10:30 Dose: 10 mg Documented By: ANA M Enoxaparin Sodium (Enoxaparin Sodium 40 Mg/0.4 Ml Syringe) 40 mg SUBCUT Q24H [facility] Last Admin: 08/08/22 01:09 Dose: 40 mg Documented By: GABINO Gabapentin (Gabapentin 300 Mg Capsule) 300 mg PO TID [facility] Last Admin: 08/07/22 20:13 Dose: 300 mg Documented By: GABINO Glucose (Glucose Gel 15 Gm Gel..Gram.) 15 gm PO Q15M PRN; Protocol PRN Reason: per Hypoglycemia Standing Ord. Hydromorphone HCl (Hydromorphone Hcl 1 Mg/Ml Syringe) 0.5 mg IVPUSH Q3H PRN; Protocol PRN Reason: Pain, Severe (Pain Scale 7-10) Last Admin: 08/08/22 03:45 Dose: 0.5 mg Documented By: GABINO Hydromorphone HCl (Hydromorphone Hcl 0.5 Mg/0.5 Ml Syringe) 0.5 mg IVPUSH Q2H PRN; Protocol PRN Reason: severe pain Last Admin: 08/06/22 16:27 Dose: 0.5 mg Documented By: MAMIE Hydroxyzine HCl (Hydroxyzine Hcl 10 Mg Tablet) 20 mg PO QID PRN PRN Reason: itch Piperacillin Sod/Tazobactam (Sod 3.375 gm/ Sodium Chloride) 50 mls @ 100 mls/hr IV Q6H [facility] Last Infusion: 08/08/22 01:43 Dose: 0 mls/hr Documented By: GABINO Vancomycin HCl 1,000 mg/ (Sodium Chloride) 270 mls @ 270 mls/hr IV Q12H [facility] Last Infusion: 08/08/22 01:12 Dose: 0 mls/hr Documented By: GABINO Sodium Chloride (Ns) 1,000 mls @ 100 mls/hr IVCONT .Q10H [facility] Insulin Human Lispro (Insulin Lispro 100 Unit/Ml 3 Ml Vial) 0 unit SUBCUT QIDACHS [facility]; Protocol Last Admin: 08/07/22 20:14 Dose: 8 unit Documented By: GABINO Isosorbide Mononitrate (Isosorbide Mononitrate 30 Mg Tab.Er.24h) 30 mg PO DAILY [facility]; Protocol Last Admin: 08/07/22 10:31 Dose: 30 mg Documented By: ANA M Loratadine (Loratadine 10 Mg Tablet) 10 mg PO DAILY [facility] Last Admin: 08/07/22 10:30 Dose: 10 mg Documented By: ANA M Losartan Potassium (Losartan Potassium 25 Mg Tablet) 25 mg PO DAILY [facility]; Protocol Last Admin: 08/07/22 10:30 Dose: 25 mg Documented By: ANA M Meclizine HCl (Meclizine Hcl 25 Mg Tablet) 25 mg PO TID PRN PRN Reason: dizziness Metoprolol Tartrate (Metoprolol Tartrate 25 Mg Tablet) 25 mg PO BID [facility]; Protocol Last Admin: 08/07/22 20:13 Dose: 25 mg Documented By: GABINO Montelukast Sodium (Montelukast Sodium 10 Mg Tablet) 10 mg PO BEDTIME [facility] Last Admin: 08/07/22 20:14 Dose: 10 mg Documented By: GABINO Omeprazole (Omeprazole 20 Mg Capsule.Dr) 20 mg PO BID@0630,1630 [facility] Last Admin: 08/08/22 05:23 Dose: 20 mg Documented By: GABINO Ondansetron HCl (Ondansetron Hcl 4 Mg/2 Ml Vial) 4 mg IVPUSH Q8H PRN PRN Reason: Nausea and Vomiting Ondansetron HCl (Ondansetron Odt 4 Mg Tab.Rapdis) 4 mg TRANSLINGU TID PRN PRN Reason: nausea Oxycodone HCl (Oxycodone Hcl Immed Release 5 Mg Tablet) 10 mg PO Q4H [facility] Last Admin: 08/08/22 05:24 Dose: 10 mg Documented By: GABINO Oxycodone HCl (Oxycodone Hcl Er 10 Mg Tab.Er.12h) 20 mg PO BID [facility] Last Admin: 08/07/22 20:13 Dose: 20 mg Documented By: GABINO Oxycodone HCl (Oxycodone Hcl Immed Release 5 Mg Tablet) 10 mg PO Q4H PRN PRN Reason: Pain, Moderate (Pain Scale 4-6 Pharmacy Consult (Consult Rx Vancomycin Dosing) 1 each MISCELLANE DAILY PRN PRN Reason: Consult order Quetiapine Fumarate (Quetiapine Fumarate 25 Mg Tablet) 12.5 mg PO BEDTIME [facility] Last Admin: 08/07/22 20:13 Dose: 12.5 mg Documented By: GABINO Sodium Chloride (0.9 % Sodium Chloride Flush 3 Ml Syringe) 3 ml IVFLUSH QSHIFT [facility] Last Admin: 08/07/22 20:14 Dose: 3 ml Documented By: GABINO Tamsulosin HCl (Tamsulosin Hcl 0.4 Mg Capsule) 0.4 mg PO DAILY [facility] Last Admin: 08/07/22 10:31 Dose: 0.4 mg Documented By: ANA M Thiamine HCl (Thiamine Hcl 100 Mg Tablet) 100 mg PO DAILY [facility] Last Admin: 08/07/22 10:30 Dose: 100 mg Documented By: ANA M Zolpidem Tartrate (Zolpidem Tartrate 5 Mg Tablet) 10 mg PO BEDTIME PRN PRN Reason: insomnia Last Admin: 08/07/22 21:37 Dose: 10 mg Documented By: MAUREENQC Labs CBC & Chem 7: 08/04/22 06:37 08/08/22 05:18 Labs: Laboratory Results - last 24 hr 08/07/22 08/07/22 08/07/22 08:42 10:51 15:34 Estim Creat Clear Calc 123.1 Estimated GFR > 60 POC Glucose 201 H 172 H 08/07/22 08/08/22 19:29 05:18 Estim Creat Clear Calc 118.7 Estimated GFR > 60 POC Glucose 328 H Procedures Date of Service Date of Service: 08/08/22 Progress Note: A&P Assessment and plan (1) Cellulitis and abscess of foot: Status: Acute (2) Osteomyelitis: Status: Acute Plan Wounds appear improved although patient continues to complain of foot pain. Vascular studies reveal tibial disease and a left? leg endovascular peripheral angiogram with possible angioplasty, stent, and/or atherectomy is planned for today. He is nervous about the procedure but seems to understand the reason for it. Time Spent With Patient Time: Total time spent is greater than 50% in coordination of care (as documented) at patient's floor/unit and/or counseling patient: Quality Stroke Does the patient have a stroke diagnosis?: No VTE Prior VTE?: No VTE Risk Level:: Medical - moderate - high VTE Device Contraindication: Treatment Not Indicated VTE Drug Contraindication: N/A - Med Ordered
[2022-08-08] MEDS: Isosorbide Mononitrate 30 MG TAB.ER.24H PO (07:41)
[2022-08-08] MEDS: Metoprolol Tartrate 25 MG TABLET PO ×2 (07:41→20:36)
[2022-08-08] MEDS: Gabapentin 300 MG CAPSULE PO ×3 (07:41→20:36)
[2022-08-08] MEDS: Ezetimibe 10 MG TABLET PO (07:41)
[2022-08-08] MEDS: Aspirin Enteric Coated 81 MG TABLET.DR PO (07:41)
[2022-08-08] MEDS: Tamsulosin HCL 0.4 MG CAPSULE PO (07:42)
[2022-08-08] MEDS: Insulin Lispro 100 UNIT/ML 3 ML VIAL SUBCUT ×3 (07:42→20:37)
[2022-08-08] MEDS: Thiamine HCL 100 MG TABLET PO (07:42)
[2022-08-08] MEDS: Loratadine 10 MG TABLET PO (07:42)
[2022-08-08] MEDS: Losartan Potassium 25 MG TABLET PO (07:42)
[2022-08-08] MEDS: 0.9 % Sodium Chloride Flush 3 ML SYRINGE IVFLUSH ×3 (07:43→20:48)
[2022-08-08] MEDS: HYDROmorphone HCl 0.5 MG/0.5 ML SYRINGE IVPUSH ×5 (07:48→23:51)
[2022-08-08 07:49] LABS: Glucose, Whole Blood 264 mg/dL (60-115)
[2022-08-08] MEDS: Acetaminophen 325 MG TABLET 650 MG PO ×2 (09:18→16:36)
[2022-08-08] MEDS: oxyCODONE HCl ER 10 MG TAB.ER.12H 20 MG PO ×2 (09:18→20:35)
[2022-08-08] MEDS: 0.9 % Sodium Chloride 1,000 ML 100 ML IVCONT (09:19)
[2022-08-08 09:45] LABS: Hematocrit 33.5 % (42.0-52.0); Hemoglobin 11.1 g/dl (14.0-18.0); Mean Corpuscular HGB Conc 33.1 g/dl (31.0-36.0); Mean Corpuscular Hemoglobin 28.4 pg (27.0-33.0); Mean Corpuscular Volume 85.7 fL (80.0-98.0); Mean Platelet Volume 10.3 fL (9.4-12.4); Platelet Count 277 X10*3/uL (160-400); Red Blood Count 3.91 X10*6/uL (4.60-5.80); Red Cell Distribution Width 12.7 % (11.0-16.0); White Blood Count 7.9 X10*3/uL (4.8-10.8)
--- NOTE | 2022-08-08 10:31 | HE.PHANOTE ---
NIHARIKA GLASS CONTINUE CURRENT DOSE. NEXT TROUGH 08/09 @2100
[2022-08-08 10:58] LABS: Blood Urea Nitrogen 5 mg/dL (9-16); C Reactive Protein 4.46 mg/dL (< or = 0.50); Calcium 8.9 mg/dL (8.4-10.2); Estimated Glomerular Filt Rate > 60; Glucose Random 283 mg/dL (60-115)
[2022-08-08 11:08] LABS: Anion Gap 17 (12-20); Carbon Dioxide 24 mmol/L (22-29); Chloride 102 mmol/L (96-108); Potassium 4.1 mmol/L (3.3-5.1); Sodium 139 mmol/L (135-145)
[2022-08-08 11:50] LABS: Glucose, Whole Blood 226 mg/dL (60-115)
--- NOTE | 2022-08-08 12:08 | HO.PM.IMPN ---
Subjective Subjective Date of Service: 08/08/22 Interval History: Seen and examined this morning Follow-up for cellulitis/osteomyelitis of the left foot plan for angiogram and possible intervention with Dr. Piper today Still reporting foot pain. Denies fever Review of Systems Review of Systems: Yes all other systems are reviewed and are negative Constitutional Constitutional: Denies chills and Denies fever(s) Cardiovascular Cardiovascular: Denies chest pain, Denies palpitations and Denies dyspnea Respiratory Respiratory: Denies cough and Denies dyspnea Gastrointestinal Gastrointestinal: Denies abdominal pain, Denies nausea and Denies vomiting Endocrine Endocrine: Denies palpitations Physical Exam Vital Signs: Vital Signs: Last Vital Signs Temp 97.5 F 08/08/22 11:25 Pulse 65 08/08/22 11:25 Resp 18 08/08/22 11:25 BP 143/76 H 08/08/22 11:25 Pulse Ox 96 08/08/22 11:25 O2 Del Method 08/08/22 11:25 BMI result Body Mass Index 41.8 Const: General: cooperative, comfortable, alert and awake Nutritional Appearance: overweight Orientation/consciousness: patient oriented x3 Resp: Effort & Inspection: normal respiratory effort and able to speak in complete sentences Auscultation: clear to auscultation bilaterally Cardio: Rate: regular rate Heart sounds: S1 normal heart sound present and S2 normal heart sound present GI: Inspection: No distended Palpation (GI): Soft to palpation and nontender Neuro: General: patient oriented x3 and CN's II-XI intact bilaterally Extrem: Other: left foot dressings changed just prior to eval, did not open Psych: Other: Appropriate affect Objective Data Active Medications Acetaminophen (Acetaminophen 325 Mg Tablet) 650 mg PO Q6H PRN PRN Reason: Pain, Mild (Pain Scale 1-3) Last Admin: 08/08/22 09:18 Dose: 650 mg Documented By: CAMILO Aspirin (Aspirin Enteric Coated 81 Mg Tablet.) 81 mg PO DAILY [facility] Last Admin: 08/08/22 07:41 Dose: 81 mg Documented By: CAMILO Atorvastatin Calcium (Atorvastatin Calcium 80 Mg Tablet) 80 mg PO BEDTIME [facility] Last Admin: 08/07/22 20:13 Dose: 80 mg Documented By: GABINO Dextrose (Dextrose 50 % 25 Gm/50 Ml Syringe) 25 gm IVPUSH Q15M PRN; Protocol PRN Reason: per Hypoglycemia Standing Ord. Ezetimibe (Ezetimibe 10 Mg Tablet) 10 mg PO DAILY [facility] Last Admin: 08/08/22 07:41 Dose: 10 mg Documented By: CAMILO Enoxaparin Sodium (Enoxaparin Sodium 40 Mg/0.4 Ml Syringe) 40 mg SUBCUT Q24H [facility] Last Admin: 08/08/22 01:09 Dose: 40 mg Documented By: GABINO Gabapentin (Gabapentin 300 Mg Capsule) 300 mg PO TID [facility] Last Admin: 08/08/22 07:41 Dose: 300 mg Documented By: CAMILO Glucose (Glucose Gel 15 Gm Gel..Gram.) 15 gm PO Q15M PRN; Protocol PRN Reason: per Hypoglycemia Standing Ord. Hydromorphone HCl (Hydromorphone Hcl 1 Mg/Ml Syringe) 0.5 mg IVPUSH Q3H PRN; Protocol PRN Reason: Pain, Severe (Pain Scale 7-10) Last Admin: 08/08/22 03:45 Dose: 0.5 mg Documented By: GABINO Hydromorphone HCl (Hydromorphone Hcl 0.5 Mg/0.5 Ml Syringe) 0.5 mg IVPUSH Q2H PRN; Protocol PRN Reason: severe pain Last Admin: 08/08/22 10:08 Dose: 0.5 mg Documented By: CAMILO Hydroxyzine HCl (Hydroxyzine Hcl 10 Mg Tablet) 20 mg PO QID PRN PRN Reason: itch Piperacillin Sod/Tazobactam (Sod 3.375 gm/ Sodium Chloride) 50 mls @ 100 mls/hr IV Q6H [facility] Last Infusion: 08/08/22 08:22 Dose: 0 mls/hr Documented By: CAMILO Vancomycin HCl 1,000 mg/ (Sodium Chloride) 270 mls @ 270 mls/hr IV Q12H [facility] Last Admin: 08/08/22 10:59 Dose: 270 mls/hr Documented By: CAMILO Sodium Chloride (Ns) 1,000 mls @ 100 mls/hr IVCONT .Q10H [facility] Last Admin: 08/08/22 09:19 Dose: 100 mls/hr Documented By: CAMILO Insulin Human Lispro (Insulin Lispro 100 Unit/Ml 3 Ml Vial) 0 unit SUBCUT QIDACHS [facility]; Protocol Last Admin: 08/08/22 11:22 Dose: Not Given Documented By: CAMILO Non-Admin Reason: Off Unit: Surgery Isosorbide Mononitrate (Isosorbide Mononitrate 30 Mg Tab.Er.24h) 30 mg PO DAILY [facility]; Protocol Last Admin: 08/08/22 07:41 Dose: 30 mg Documented By: COTEMA Loratadine (Loratadine 10 Mg Tablet) 10 mg PO DAILY [facility] Last Admin: 08/08/22 07:42 Dose: 10 mg Documented By: COTEMA Losartan Potassium (Losartan Potassium 25 Mg Tablet) 25 mg PO DAILY [facility]; Protocol Last Admin: 08/08/22 07:42 Dose: 25 mg Documented By: CAMILO Meclizine HCl (Meclizine Hcl 25 Mg Tablet) 25 mg PO TID PRN PRN Reason: dizziness Metoprolol Tartrate (Metoprolol Tartrate 25 Mg Tablet) 25 mg PO BID [facility]; Protocol Last Admin: 08/08/22 07:41 Dose: 25 mg Documented By: CAMILO Montelukast Sodium (Montelukast Sodium 10 Mg Tablet) 10 mg PO BEDTIME [facility] Last Admin: 08/07/22 20:14 Dose: 10 mg Documented By: GABINO Omeprazole (Omeprazole 20 Mg Capsule.Dr) 20 mg PO BID@0630,1630 [facility] Last Admin: 08/08/22 05:23 Dose: 20 mg Documented By: GABINO Ondansetron HCl (Ondansetron Hcl 4 Mg/2 Ml Vial) 4 mg IVPUSH Q8H PRN PRN Reason: Nausea and Vomiting Ondansetron HCl (Ondansetron Odt 4 Mg Tab.Rapdis) 4 mg TRANSLINGU TID PRN PRN Reason: nausea Oxycodone HCl (Oxycodone Hcl Immed Release 5 Mg Tablet) 10 mg PO Q4H [facility] Last Admin: 08/08/22 09:18 Dose: 10 mg Documented By: COTMARELY Oxycodone HCl (Oxycodone Hcl Er 10 Mg Tab.Er.12h) 20 mg PO BID [facility] Last Admin: 08/08/22 09:18 Dose: 20 mg Documented By: NELSONEMA Oxycodone HCl (Oxycodone Hcl Immed Release 5 Mg Tablet) 10 mg PO Q4H PRN PRN Reason: Pain, Moderate (Pain Scale 4-6 Pharmacy Consult (Consult Rx Vancomycin Dosing) 1 each MISCELLANE DAILY PRN PRN Reason: Consult order Quetiapine Fumarate (Quetiapine Fumarate 25 Mg Tablet) 12.5 mg PO BEDTIME [facility] Last Admin: 08/07/22 20:13 Dose: 12.5 mg Documented By: GABINO Sodium Chloride (0.9 % Sodium Chloride Flush 3 Ml Syringe) 3 ml IVFLUSH QSHIFT [facility] Last Admin: 08/08/22 07:43 Dose: 3 ml Documented By: COTEMA Tamsulosin HCl (Tamsulosin Hcl 0.4 Mg Capsule) 0.4 mg PO DAILY [facility] Last Admin: 08/08/22 07:42 Dose: 0.4 mg Documented By: COTEMA Thiamine HCl (Thiamine Hcl 100 Mg Tablet) 100 mg PO DAILY [facility] Last Admin: 08/08/22 07:42 Dose: 100 mg Documented By: NELSONEMA Zolpidem Tartrate (Zolpidem Tartrate 5 Mg Tablet) 10 mg PO BEDTIME PRN PRN Reason: insomnia Last Admin: 08/07/22 21:37 Dose: 10 mg Documented By: GABINO Labs CBC & Chem 7: 08/08/22 09:04 08/08/22 09:04 Labs: Laboratory Results - last 24 hr 08/07/22 08/07/22 08/08/22 15:34 19:29 05:18 MCV MCH MCHC RDW Plt Count MPV Absolute Nucleated RBC Nucleated RBC % (auto) Anion Gap Estim Creat Clear Calc 118.7 Estimated GFR > 60 POC Glucose 172 H 328 H Random Glucose Calcium C-Reactive Protein Vancomycin Trough 08/08/22 08/08/22 08/08/22 07:13 09:04 09:04 MCV 85.7 MCH 28.4 MCHC 33.1 RDW 12.7 Plt Count 277 D MPV 10.3 Absolute Nucleated RBC 0.000 Nucleated RBC % (auto) 0.0 Anion Gap Estim Creat Clear Calc Estimated GFR POC Glucose 264 H Random Glucose Calcium C-Reactive Protein Vancomycin Trough 14.0 08/08/22 08/08/22 09:04 11:30 MCV MCH MCHC RDW Plt Count MPV Absolute Nucleated RBC Nucleated RBC % (auto) Anion Gap 17 Estim Creat Clear Calc 116.0 Estimated GFR > 60 POC Glucose 226 H Random Glucose 283 H Calcium 8.9 C-Reactive Protein 4.46 H Vancomycin Trough Assessment and Plan (1) PAD (peripheral artery disease): Status: Acute (2) Osteomyelitis: Status: Acute Plan d#4 61yo M with DM2, osteomyelitis s/p recent amputation of 1st + 2nd L foot metatarsals presenting with nonhealing wound after 2nd MT amputation 07/29/22 # acute osteomyelitis assoc with DM # cellulitis of L foot assoc with DM # PAD Bood cultures negative to date - patient underwent amputation of 2nd metatarsal on 07/29 after nonhealing wound + failing outpatient antibiotics - ID consult pending; on d#4 vanc + pip/coleen - per Gen Surg, postoperative site changes - Vasc Surg consulted; will review arterial studies re: revascularization procedure- planned for today # pAF - continue metoprolol - xarelto on hold # CAD - continue ASA, Imdur, losartan, atorvastatin, metoprolol # DM2 with hyperglycemia - correction-dose lispro #HTN -continue losartan, Lopressor # morbid obesity BMI 41.8 Recommend weight loss # VTE ppx:lovenox (xarelto d/c for ?procedure) attending - dr. yeung In my clinical judgment, the patient requires continued hospitalization for the following reasons: IV ABX, vascular intervention Quality Stroke Does the patient have a stroke diagnosis?: No VTE Prior VTE?: No VTE Risk Level:: Medical - moderate - high VTE Device Contraindication: Treatment Not Indicated VTE Drug Contraindication: N/A - Med Ordered
--- NOTE | 2022-08-08 13:26 | W.PM.OPN ---
Operative Note Operative Note Date of Service: 08/08/22 Narrative: Angiogram report from [facility] Preoperative diagnosis: Atherosclerosis of left lower extremity with nonhealing ulcer Postoperative diagnosis: Same Procedure: 1. Ultrasound-guided right common femoral access 2. Aortogram with left lower extremity runoff Surgeon:Nilson Piper M.D., FACS, RPVI Forex Trader:None Anesthesia: Local with moderate conscious sedation. Total intraservice moderate sedation time was 30 minutes. I monitored the patient's level of consciousness and physiologic status continuously throughout the procedure. Specimens:none Drains:none Estimated blood loss: Less than 10 ml Implant: None Indications: 61-year-old diabetic gentleman with a nonhealing left foot ulcer. He had noninvasive testing concerning for tibial vessel disease. He now presents for endovascular intervention The patient has signed the informed consent after reviewing risks, complications, benefits, and alternatives previously discussed with the patient. The patient was given the opportunity to ask any additional questions or voice any concerns. All questions were answered to the patient's satisfaction. Procedure in detail: Patient was brought to the angiography suite prior to which a time-out was called for patient identification and site verification. Bilateral groins were prepped and draped in the standard surgical fashion. Under ultrasound guidance right common femoral was punctured with micro puncture needle and wire. Subsequently a precision 4 [place]ian sheath was then placed. Bentson wire was advanced to the level of the aorta. 4 [place]ian Flush catheter was brought up and parked at the level of the renal arteries. Aortogram was then undertaken. Catheter was brought down to the level of the iliac bifurcation. Iliacs were subsequently imaged. Catheter was then brought in up and over to the left side SFA. Runoff study was then undertaken. I did not appreciate any significant disease. At this point catheter wire sheath was removed. 10 minutes of direct pressure was held. Patient tolerated the procedure well. Interpretation of films: 1. Ultrasound demonstrates appropriate femoral puncture. Image of which was saved. 2. Aortogram demonstrates appropriate caliber aorta. Minimal disease. Appropriate take-off of the renals. 3. Iliac images demonstrate no significant disease. At the bifurcation there was significant back orthopedic hardware. 4. Left Leg Common femoral artery: No significant disease Profundus Femoris: No significant disease Superficial femoral artery: No significant disease Popliteal artery (p1,p2,p3): Patent with no significant disease Anterior tibial artery: Patent all the way down Peroneal artery: Patent but diminutive decreases at the level of ankle Posterior tibial artery: Patent all the way down Dorsalis pedis/plantar arch: Complete. Of note there is significant hardware in the left ankle Conclusion: 1. Successful diagnostic angiogram with adequate blood supply 2. Anticoagulation status: No change This note is constructed using voice recognition software. While every effort has been made to ensure accuracy, concrete stone fabricating supervisor errors may have been included. Thank you for allowing me to participate in the care of your patient. Yours sincerely, Nilson Piper MD, FACS, R.P.V.I.
--- NOTE | 2022-08-08 13:30 | PM.EVENT ---
Event Note Date of Service: 08/08/22 Event Note: Diagnostic angiogram completed. No intervention required and has adequate supply to heal ulcerations. Of note significant hardware was noted in the ankle and may be potential source of pain. Continue with current medical management with antibiotic therapy.
[2022-08-08 15:40] LABS: Glucose, Whole Blood 236 mg/dL (60-115)
[2022-08-08 19:35] LABS: Glucose, Whole Blood 240 mg/dL (60-115)
[2022-08-08] MEDS: Atorvastatin Calcium 80 MG TABLET PO (20:36)
[2022-08-08] MEDS: QUEtiapine Fumarate 25 MG TABLET 12.5 MG PO (20:36)
[2022-08-08] MEDS: Montelukast Sodium 10 MG TABLET PO (20:37)
[2022-08-09] MEDS: Enoxaparin Sodium 40 MG/0.4 ML SYRINGE SUBCUT (02:33)
[2022-08-09] MEDS: Piperacillin Sodium/Tazobactam 3.375 GM in 0.9 % Sodium Chloride 50 ML IV ×4 (02:33→19:12)
[2022-08-09] MEDS: oxyCODONE HCl Immed Release 5 MG TABLET 10 MG PO ×5 (03:58→22:28)
[2022-08-09] MEDS: HYDROmorphone HCl 1 MG/ML SYRINGE 0.5 MG IVPUSH ×2 (03:59→09:57)
[2022-08-09] MEDS: Omeprazole 20 MG CAPSULE.DR PO ×2 (05:21→16:26)
[2022-08-09 06:25] LABS: Anion Gap 13 (12-20); Blood Urea Nitrogen 5 mg/dL (9-16); Calcium 8.6 mg/dL (8.4-10.2); Carbon Dioxide 28 mmol/L (22-29); Chloride 104 mmol/L (96-108); Creatinine Clr Calc Pharmacy 124.7; Estimated Glomerular Filt Rate > 60; Glucose Random 287 mg/dL (60-115); Potassium 4.2 mmol/L (3.3-5.1); Sodium 141 mmol/L (135-145)
[2022-08-09 07:00] VITALS: BP 162/72; PULSE 76; RESP 17; TEMP 36.2; O2SAT 96
--- NOTE | 2022-08-09 07:39 | HE.PHANOTE ---
NIHARIKA GLASS CONTINUE CURRENT DOSE, NEXT LEVEL DUE 08/09 @2100 JOHN PAUL
[2022-08-09 07:46] LABS: Glucose, Whole Blood 268 mg/dL (60-115)
[2022-08-09] MEDS: Metoprolol Tartrate 25 MG TABLET PO ×2 (07:52→19:56)
[2022-08-09] MEDS: Isosorbide Mononitrate 30 MG TAB.ER.24H PO (07:52)
[2022-08-09] MEDS: Losartan Potassium 25 MG TABLET PO (07:52)
[2022-08-09] MEDS: Gabapentin 300 MG CAPSULE PO ×3 (07:53→19:56)
[2022-08-09] MEDS: Loratadine 10 MG TABLET PO (07:53)
[2022-08-09] MEDS: oxyCODONE HCl ER 10 MG TAB.ER.12H 20 MG PO ×2 (07:53→19:55)
[2022-08-09] MEDS: Ezetimibe 10 MG TABLET PO (07:53)
[2022-08-09] MEDS: Aspirin Enteric Coated 81 MG TABLET.DR PO (07:53)
[2022-08-09] MEDS: Tamsulosin HCL 0.4 MG CAPSULE PO (07:53)
[2022-08-09] MEDS: Insulin Lispro 100 UNIT/ML 3 ML VIAL SUBCUT ×4 (07:53→19:59)
[2022-08-09] MEDS: Thiamine HCL 100 MG TABLET PO (07:53)
--- NOTE | 2022-08-09 08:03 | P.PNGS_ITS ---
Subjective Subjective Date of Service: 08/09/22 Interval history: Continued foot pain including the 3rd toe, controlled with pain medications. Physical Exam Vital Signs: Vital Signs: Last Vital Signs Temp 97.1 F 08/09/22 07:00 Pulse 76 08/09/22 07:00 Resp 17 08/09/22 07:00 BP 162/72 H 08/09/22 07:00 Pulse Ox 96 08/09/22 07:00 O2 Del Method 08/09/22 07:00 BMI result Body Mass Index 41.8 Const: General: tired appearing Nutritional Appearance: obese Orientation/consciousness: patient oriented x3 Resp: Effort & Inspection: normal respiratory effort Skin: General skin exam: no rashes or lesions noted Neuro: General: patient oriented x3 Extrem: Other: dressings changed to left foot. Minimal serosanguineous discharge. No further erythema appreciated. 1+ edema at foot. Overall much improved. Sutures intact. Objective Data Active Medications Acetaminophen (Acetaminophen 325 Mg Tablet) 650 mg PO Q6H PRN PRN Reason: Pain, Mild (Pain Scale 1-3) Last Admin: 08/08/22 16:36 Dose: 650 mg Documented By: COTEMA Aspirin (Aspirin Enteric Coated 81 Mg Tablet.) 81 mg PO DAILY COUNTS INCLUDE 234 BEDS AT THE [facility] Last Admin: 08/09/22 07:53 Dose: 81 mg Documented By: PRISCILA Atorvastatin Calcium (Atorvastatin Calcium 80 Mg Tablet) 80 mg PO BEDTIME COUNTS INCLUDE 234 BEDS AT THE [facility] Last Admin: 08/08/22 20:36 Dose: 80 mg Documented By: JOSE Dextrose (Dextrose 50 % 25 Gm/50 Ml Syringe) 25 gm IVPUSH Q15M PRN; Protocol PRN Reason: per Hypoglycemia Standing Ord. Ezetimibe (Ezetimibe 10 Mg Tablet) 10 mg PO DAILY COUNTS INCLUDE 234 BEDS AT THE [facility] Last Admin: 08/09/22 07:53 Dose: 10 mg Documented By: PRISCILA Enoxaparin Sodium (Enoxaparin Sodium 40 Mg/0.4 Ml Syringe) 40 mg SUBCUT Q24H COUNTS INCLUDE 234 BEDS AT THE [facility] Last Admin: 08/09/22 02:33 Dose: 40 mg Documented By: JOSE Gabapentin (Gabapentin 300 Mg Capsule) 300 mg PO TID COUNTS INCLUDE 234 BEDS AT THE [facility] Last Admin: 08/09/22 07:53 Dose: 300 mg Documented By: PRISCILA Glucose (Glucose Gel 15 Gm Gel..Gram.) 15 gm PO Q15M PRN; Protocol PRN Reason: per Hypoglycemia Standing Ord. Hydromorphone HCl (Hydromorphone Hcl 1 Mg/Ml Syringe) 0.5 mg IVPUSH Q3H PRN; Protocol PRN Reason: Pain, Severe (Pain Scale 7-10) Last Admin: 08/09/22 03:59 Dose: 0.5 mg Documented By: JOSE Hydromorphone HCl (Hydromorphone Hcl 0.5 Mg/0.5 Ml Syringe) 0.5 mg IVPUSH Q2H PRN; Protocol PRN Reason: severe pain Last Admin: 08/08/22 23:51 Dose: 0.5 mg Documented By: JOSE Hydroxyzine HCl (Hydroxyzine Hcl 10 Mg Tablet) 20 mg PO QID PRN PRN Reason: itch Piperacillin Sod/Tazobactam (Sod 3.375 gm/ Sodium Chloride) 50 mls @ 100 mls/hr IV Q6H COUNTS INCLUDE 234 BEDS AT THE [facility] Last Admin: 08/09/22 07:52 Dose: 100 mls/hr Documented By: PRISCILA Vancomycin HCl 1,000 mg/ (Sodium Chloride) 270 mls @ 270 mls/hr IV Q12H COUNTS INCLUDE 234 BEDS AT THE [facility] Last Infusion: 08/08/22 23:56 Dose: 270 mls/hr Documented By: JOSE Sodium Chloride (Ns) 1,000 mls @ 100 mls/hr IVCONT .Q10H COUNTS INCLUDE 234 BEDS AT THE [facility] Last Admin: 08/09/22 05:21 Dose: Not Given Documented By: JOSE Non-Admin Reason: IV Running Insulin Human Lispro (Insulin Lispro 100 Unit/Ml 3 Ml Vial) 0 unit SUBCUT QIDACHS COUNTS INCLUDE 234 BEDS AT THE [facility]; Protocol Last Admin: 08/09/22 07:53 Dose: 6 unit Documented By: PRISCILA Isosorbide Mononitrate (Isosorbide Mononitrate 30 Mg Tab.Er.24h) 30 mg PO DAILY COUNTS INCLUDE 234 BEDS AT THE [facility]; Protocol Last Admin: 08/09/22 07:52 Dose: 30 mg Documented By: PRISCILA Loratadine (Loratadine 10 Mg Tablet) 10 mg PO DAILY COUNTS INCLUDE 234 BEDS AT THE [facility] Last Admin: 08/09/22 07:53 Dose: 10 mg Documented By: PRISCILA Losartan Potassium (Losartan Potassium 25 Mg Tablet) 25 mg PO DAILY COUNTS INCLUDE 234 BEDS AT THE [facility]; Protocol Last Admin: 08/09/22 07:52 Dose: 25 mg Documented By: PRISCILA Meclizine HCl (Meclizine Hcl 25 Mg Tablet) 25 mg PO TID PRN PRN Reason: dizziness Metoprolol Tartrate (Metoprolol Tartrate 25 Mg Tablet) 25 mg PO BID COUNTS INCLUDE 234 BEDS AT THE [facility]; Protocol Last Admin: 08/09/22 07:52 Dose: 25 mg Documented By: PRISCILA Montelukast Sodium (Montelukast Sodium 10 Mg Tablet) 10 mg PO BEDTIME COUNTS INCLUDE 234 BEDS AT THE [facility] Last Admin: 08/08/22 20:37 Dose: 10 mg Documented By: JOSE Omeprazole (Omeprazole 20 Mg Capsule.Dr) 20 mg PO BID@0630,1630 COUNTS INCLUDE 234 BEDS AT THE [facility] Last Admin: 08/09/22 05:21 Dose: 20 mg Documented By: JOSE Ondansetron HCl (Ondansetron Hcl 4 Mg/2 Ml Vial) 4 mg IVPUSH Q8H PRN PRN Reason: Nausea and Vomiting Ondansetron HCl (Ondansetron Odt 4 Mg Tab.Rapdis) 4 mg TRANSLINGU TID PRN PRN Reason: nausea Oxycodone HCl (Oxycodone Hcl Immed Release 5 Mg Tablet) 10 mg PO Q4H COUNTS INCLUDE 234 BEDS AT THE [facility] Last Admin: 08/09/22 07:52 Dose: 10 mg Documented By: PRISCILA Oxycodone HCl (Oxycodone Hcl Er 10 Mg Tab.Er.12h) 20 mg PO BID COUNTS INCLUDE 234 BEDS AT THE [facility] Last Admin: 08/09/22 07:53 Dose: 20 mg Documented By: PRISCILA Oxycodone HCl (Oxycodone Hcl Immed Release 5 Mg Tablet) 10 mg PO Q4H PRN PRN Reason: Pain, Moderate (Pain Scale 4-6 Last Admin: 08/08/22 13:36 Dose: 10 mg Documented By: YESSI Pharmacy Consult (Consult Rx Vancomycin Dosing) 1 each MISCELLANE DAILY PRN PRN Reason: Consult order Quetiapine Fumarate (Quetiapine Fumarate 25 Mg Tablet) 12.5 mg PO BEDTIME COUNTS INCLUDE 234 BEDS AT THE [facility] Last Admin: 08/08/22 20:36 Dose: 12.5 mg Documented By: JOSE Sodium Chloride (0.9 % Sodium Chloride Flush 3 Ml Syringe) 3 ml IVFLUSH QSHIFT COUNTS INCLUDE 234 BEDS AT THE [facility] Last Admin: 08/09/22 07:28 Dose: Not Given Documented By: PRISCILA Non-Admin Reason: IV Running Tamsulosin HCl (Tamsulosin Hcl 0.4 Mg Capsule) 0.4 mg PO DAILY COUNTS INCLUDE 234 BEDS AT THE [facility] Last Admin: 08/09/22 07:53 Dose: 0.4 mg Documented By: PRISCILA Thiamine HCl (Thiamine Hcl 100 Mg Tablet) 100 mg PO DAILY COUNTS INCLUDE 234 BEDS AT THE [facility] Last Admin: 08/09/22 07:53 Dose: 100 mg Documented By: PRISCILA Zolpidem Tartrate (Zolpidem Tartrate 5 Mg Tablet) 10 mg PO BEDTIME PRN PRN Reason: insomnia Last Admin: 08/07/22 21:37 Dose: 10 mg Documented By: MAUREENQC Labs CBC & Chem 7: 08/08/22 09:04 08/09/22 05:46 Labs: Laboratory Results - last 24 hr 08/08/22 08/08/22 08/08/22 09:04 09:04 09:04 MCV 85.7 MCH 28.4 MCHC 33.1 RDW 12.7 Plt Count 277 D MPV 10.3 Absolute Nucleated RBC 0.000 Nucleated RBC % (auto) 0.0 Anion Gap 17 Estim Creat Clear Calc 116.0 Estimated GFR > 60 POC Glucose Random Glucose 283 H Calcium 8.9 C-Reactive Protein 4.46 H Vancomycin Trough 14.0 08/08/22 08/08/22 08/08/22 11:30 15:10 19:20 MCV MCH MCHC RDW Plt Count MPV Absolute Nucleated RBC Nucleated RBC % (auto) Anion Gap Estim Creat Clear Calc Estimated GFR POC Glucose 226 H 236 H 240 H Random Glucose Calcium C-Reactive Protein Vancomycin Trough 08/09/22 08/09/22 05:46 07:33 MCV MCH MCHC RDW Plt Count MPV Absolute Nucleated RBC Nucleated RBC % (auto) Anion Gap 13 Estim Creat Clear Calc 124.7 Estimated GFR > 60 POC Glucose 268 H Random Glucose 287 H Calcium 8.6 C-Reactive Protein Vancomycin Trough Microbiology Microbiology Results: Microbiology 08/04/22 00:19 Blood Culture - Final Blood - Venous No growth after 5 days. 08/04/22 00:19 Blood Culture - Final Blood - Venous No growth after 5 days. Procedures Date of Service Date of Service: 08/09/22 Progress Note: A&P Assessment and plan (1) Cellulitis and abscess of foot: Status: Acute (2) Osteomyelitis: Status: Acute Plan Continued improvement in the cellulitis and minimal discharge currently. Appreciate vascular studies yesterday. No stenosis identified. Continue antibiotics, ? Home IV antibiotics upon discharge. Time Spent With Patient Time: Total time spent is greater than 50% in coordination of care (as documented) at patient's floor/unit and/or counseling patient: Quality Stroke Does the patient have a stroke diagnosis?: No VTE Prior VTE?: No VTE Risk Level:: Medical - moderate - high VTE Device Contraindication: Treatment Not Indicated VTE Drug Contraindication: N/A - Med Ordered
[2022-08-09] MEDS: 0.9 % Sodium Chloride 1,000 ML 100 ML IVCONT ×2 (10:03→20:55)
--- NOTE | 2022-08-09 10:16 | P.PNVS_ITS ---
Subjective Subjective Date of Service: 08/09/22 Patient reports: no new complaints Interval history: 61-year-old gentleman status post diagnostic angiogram from yesterday. Reports no events overnight. Reports a similar amount of pain on the left lower extremity. No significant change. He reports that the foot does feel better. In addition he does think that the wound is healing well. He is now for routine postprocedure follow-up. Physical Exam Vital Signs: Vital Signs: Last Vital Signs Temp 97.1 F 08/09/22 07:00 Pulse 76 08/09/22 07:00 Resp 17 08/09/22 07:00 BP 162/72 H 08/09/22 07:00 Pulse Ox 96 08/09/22 07:00 O2 Del Method 08/09/22 07:00 BMI result Body Mass Index 41.8 Const: General: cooperative, healthy appearing and comfortable Orientation/consciousness: oriented to person, oriented to place and oriented to time HEENT: Head: Yes normal to inspection Neck: Neck: Yes normal visual inspection Carotids: no bruits Chest: Chest palpation & inspection: normal inspection of the chest Resp: Effort & Inspection: normal respiratory effort and able to speak in complete sentences Auscultation: clear to auscultation bilaterally, no crackles, no rales, no rhonchi and no wheezes Cardio: Rate: regular rate Rhythm: regular rhythm Heart sounds: S1 normal heart sound present and S2 normal heart sound present Bruits: no carotid bruits Peripheral pulses: Peripheral pulses 2+ throughout GI: Inspection: Yes normal to inspection Skin: Wounds: no wounds Hair: normal Neuro: General: oriented to person, oriented to place and oriented to time Cranial nerves: Yes CN's II-XII intact bilaterally and Yes Normal hearing presen t Cognition (Neuro): normal cognition Motor exam (neuro): 5/5 motor strength present throughout Extrem: Other: venous exam: No significant superficial varicosities or spider telangiectasias, minimal edema General: No clubbing, No cyanosis and No edema Psych: Appearance: grossly normal Mental Status: mental status grossly normal Speech and movement: Normal speech and movement present Progress Note: A&P Assessment and plan (1) PAD (peripheral artery disease): Status: Acute Assessment and Plan: In short patient is doing well status post diagnostic angiogram. There appears to be no flow-limiting stenosis. I do think he has adequate arterial supply to heal this wound. In addition there is concern of hardware in the lower part of that foot. That may be the etiology of his pain. We will follow with you on an as-needed basis. Thank you for allowing us to assist in his care. If there are questions or concerns please do not hesitate to contact us. Time Spent With Patient Time: Total time spent is greater than 50% in coordination of care (as documented) at patient's floor/unit and/or counseling patient: Procedures Date of Service Date of Service: 08/09/22 Quality Stroke Does the patient have a stroke diagnosis?: No VTE Prior VTE?: No VTE Risk Level:: Medical - moderate - high VTE Device Contraindication: Treatment Not Indicated VTE Drug Contraindication: N/A - Med Ordered
[2022-08-09] MEDS: vancomycin HCL 1,000 MG in 0.9 % Sodium Chloride 250 ML 270 MG IV ×2 (10:41→22:29)
[2022-08-09 11:29] LABS: Glucose, Whole Blood 241 mg/dL (60-115)
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
[2022-08-09] MEDS: HYDROmorphone HCl 0.5 MG/0.5 ML SYRINGE IVPUSH ×4 (11:59→19:59)
[2022-08-09 14:57] VITALS: BP 147/63; PULSE 70; RESP 17; TEMP 36.4; O2SAT 99
--- NOTE | 2022-08-09 15:26 | W.PM.IDCN ---
History of Present Illness Data of Consult Service Date: 08/09/22 Requesting physician: Maureen Zelaya Primary Care Provider: Michael Acosta MD HPI Reason for consult: left foot infection,diabetic foot He presents with left foot pain and swelling. He had left second toe amputation on 07/29 and severe pain with redness and swelling after. He has MRI shows distal second metatarsal concern for early osteomyelitis. I had seen him in December 2021 and he received six weeks IV Ertapenem for right foot infection and felt it healed well. He still has severe pain foot. Review of Systems Review of Systems: Yes all other systems are reviewed and are negative [facility] Past Medical History Medical History Afib Amputation of left great toe Asthma CAD (coronary artery disease) Cellulitis Diabetes DMII (diabetes mellitus, type 2) FHx: bilateral hip replacements Hyperglycemia Hypertension Lower limb amputation, great toe Orthopedic hardware present Family History Family History Other No family history of coronary artery disease Family history: reviewed and not pertinent Surgical History Surgical History H/O bilateral hip replacements History of amputation of great toe (01/07/22) History of amputation of toe (07/29/22) History of ankle surgery History of back surgery History of neck surgery S/P quadruple vessel bypass Social History Social History Household Members: Spouse Household Members Other:: 3 Housing: Apartment Are you a primary rn care manager to a significant other at home: No Do you presently have visiting nurse or other home services: Yes Alcohol intake: never Patient Tobacco Use Status: Former Tobacco user Quit Date: 30 years ago Tobacco use type: Cigarette Second Hand Smoke Exposure: No Use of substances other than those prescribed or required for medical reasons: No Currently Displaying Signs/Symptoms of Drug Intoxication Withdrawal: No Have you been hit, kicked, punched, or otherwise hurt by someone within the past year? If so, by whom?: No Do you feel safe in your current relationship?: Yes Is there a partner from a previous relationship who is making you feel unsafe now?: No Are you made to feel afraid or neglected: No Are you DNR?: No Advance Directives: Yes Advance Directives on File: Yes Advance Directives Date on File: 01/04/22 Do you have thoughts of harming others: None Recently lost weight without trying: Yes How much weight loss: 34pounds or more Eating poorly because of decreased appetite: Yes Nutrition screen score: 7 Nutrition Risks: No Nutritional Risk Poor oral hygiene: No service: Yes Current occupational status: disabled Meds Allergies Allergy/AdvReac Type Severity Reaction Status Date / Time morphine AdvReac Intermediate Hallucinati Verified 08/03/22 17:10 ons Active Medications: Current Medications Acetaminophen (Acetaminophen 325 Mg Tablet) 650 mg PO Q6H PRN PRN Reason: Pain, Mild (Pain Scale 1-3) Last Admin: 08/08/22 16:36 Dose: 650 mg Aspirin (Aspirin Enteric Coated 81 Mg Tablet.Dr) 81 mg PO DAILY [facility] Last Admin: 08/09/22 07:53 Dose: 81 mg Atorvastatin Calcium (Atorvastatin Calcium 80 Mg Tablet) 80 mg PO BEDTIME [facility] Last Admin: 08/08/22 20:36 Dose: 80 mg Dextrose (Dextrose 50 % 25 Gm/50 Ml Syringe) 25 gm IVPUSH Q15M PRN; Protocol PRN Reason: per Hypoglycemia Standing Ord. Docusate Sodium (Docusate Sodium 100 Mg Capsule) 100 mg PO BID [facility] Ezetimibe (Ezetimibe 10 Mg Tablet) 10 mg PO DAILY [facility] Last Admin: 08/09/22 07:53 Dose: 10 mg Gabapentin (Gabapentin 300 Mg Capsule) 300 mg PO TID [facility] Last Admin: 08/09/22 14:09 Dose: 300 mg Glucose (Glucose Gel 15 Gm Gel..Gram.) 15 gm PO Q15M PRN; Protocol PRN Reason: per Hypoglycemia Standing Ord. Hydromorphone HCl (Hydromorphone Hcl 0.5 Mg/0.5 Ml Syringe) 0.5 mg IVPUSH Q2H PRN; Protocol PRN Reason: severe pain Last Admin: 08/09/22 14:08 Dose: 0.5 mg Hydroxyzine HCl (Hydroxyzine Hcl 10 Mg Tablet) 20 mg PO QID PRN PRN Reason: itch Piperacillin Sod/Tazobactam (Sod 3.375 gm/ Sodium Chloride) 50 mls @ 100 mls/hr IV Q6H [facility] Last Infusion: 08/09/22 15:06 Dose: Infused Vancomycin HCl 1,000 mg/ (Sodium Chloride) 270 mls @ 270 mls/hr IV Q12H [facility] Last Infusion: 08/09/22 11:59 Dose: Infused Sodium Chloride (Ns) 1,000 mls @ 100 mls/hr IVCONT .Q10H [facility] Last Admin: 08/09/22 15:06 Dose: Not Given Insulin Human Lispro (Insulin Lispro 100 Unit/Ml 3 Ml Vial) 0 unit SUBCUT QIDACHS [facility]; Protocol Last Admin: 08/09/22 12:00 Dose: 4 unit Isosorbide Mononitrate (Isosorbide Mononitrate 30 Mg Tab.Er.24h) 30 mg PO DAILY [facility]; Protocol Last Admin: 08/09/22 07:52 Dose: 30 mg Loratadine (Loratadine 10 Mg Tablet) 10 mg PO DAILY [facility] Last Admin: 08/09/22 07:53 Dose: 10 mg Losartan Potassium (Losartan Potassium 50 Mg Tablet) 50 mg PO DAILY [facility]; Protocol Meclizine HCl (Meclizine Hcl 25 Mg Tablet) 25 mg PO TID PRN PRN Reason: dizziness Metoprolol Tartrate (Metoprolol Tartrate 25 Mg Tablet) 25 mg PO BID [facility]; Protocol Last Admin: 08/09/22 07:52 Dose: 25 mg Montelukast Sodium (Montelukast Sodium 10 Mg Tablet) 10 mg PO BEDTIME [facility] Last Admin: 08/08/22 20:37 Dose: 10 mg Omeprazole (Omeprazole 20 Mg Capsule.Dr) 20 mg PO BID@0630,1630 [facility] Last Admin: 08/09/22 05:21 Dose: 20 mg Ondansetron HCl (Ondansetron Hcl 4 Mg/2 Ml Vial) 4 mg IVPUSH Q8H PRN PRN Reason: Nausea and Vomiting Ondansetron HCl (Ondansetron Odt 4 Mg Tab.Rapdis) 4 mg TRANSLINGU TID PRN PRN Reason: nausea Oxycodone HCl (Oxycodone Hcl Immed Release 5 Mg Tablet) 10 mg PO Q4H [facility] Last Admin: 08/09/22 11:59 Dose: 10 mg Oxycodone HCl (Oxycodone Hcl Er 10 Mg Tab.Er.12h) 20 mg PO BID [facility] Last Admin: 08/09/22 07:53 Dose: 20 mg Oxycodone HCl (Oxycodone Hcl Immed Release 5 Mg Tablet) 10 mg PO Q4H PRN PRN Reason: Pain, Moderate (Pain Scale 4-6 Last Admin: 08/08/22 13:36 Dose: 10 mg Pharmacy Consult (Consult Rx Vancomycin Dosing) 1 each MISCELLANE DAILY PRN PRN Reason: Consult order Polyethylene Glycol (Polyethylene Glycol 3350 17 Gm Powd.Pack) 17 gm PO DAILY PRN PRN Reason: constipation Quetiapine Fumarate (Quetiapine Fumarate 25 Mg Tablet) 12.5 mg PO BEDTIME [facility] Last Admin: 08/08/22 20:36 Dose: 12.5 mg Rivaroxaban (Rivaroxaban 15 Mg Tablet) 15 mg PO DAILY@1700 [facility] Sodium Chloride (0.9 % Sodium Chloride Flush 3 Ml Syringe) 3 ml IVFLUSH QSHIFT [facility] Last Admin: 08/09/22 07:28 Dose: Not Given Tamsulosin HCl (Tamsulosin Hcl 0.4 Mg Capsule) 0.4 mg PO DAILY [facility] Last Admin: 08/09/22 07:53 Dose: 0.4 mg Thiamine HCl (Thiamine Hcl 100 Mg Tablet) 100 mg PO DAILY [facility] Last Admin: 08/09/22 07:53 Dose: 100 mg Home Medications Medication Instructions Recorded Confirmed Last Taken Type ezetimibe 10 mg tablet 1 tab PO DAILY 01/03/22 08/04/22 08/02/22 History gabapentin 300 mg capsule 1 cap PO TID 01/03/22 08/04/22 08/02/22 History hydroxyzine HCl 10 mg tablet 2 tab PO QID PRN itch 01/03/22 08/04/22 08/02/22 History insulin glargine 100 unit/mL 50 unit subcut BID@01/03/22 08/04/22 08/02/22 History subcutaneous solution (Lantus U-100 Insulin) insulin lispro 100 unit/mL 30 unit subcut TIDAC 01/03/22 08/04/22 08/02/22 History subcutaneous solution isosorbide mononitrate 30 mg 1 tab PO QAM 01/03/22 08/04/22 08/02/22 History tablet,extended release 24 hr loratadine 10 mg tablet 1 tab PO DAILY 01/03/22 08/04/22 08/02/22 History losartan 25 mg tablet 1 tab PO DAILY 01/03/22 08/04/22 08/02/22 History meclizine 25 mg tablet 1 tab PO TID PRN dizziness 01/03/22 08/04/22 08/02/22 History metoprolol tartrate 25 mg tablet 1 tab PO BID 01/03/22 08/04/22 08/02/22 History montelukast 10 mg tablet 1 tab PO BEDTIME 01/03/22 08/04/22 08/02/22 History ondansetron HCl 4 mg tablet 1 tab PO TID PRN nausea 01/03/22 08/04/22 08/02/22 History oxycodone 20 mg tablet,crush 1 tab PO BID 01/03/22 08/04/22 08/02/22 History resistant,extended release 12 hr (OxyContin) oxycodone 5 mg tablet 2 tab PO Q4H 01/03/22 08/04/22 08/02/22 History pantoprazole 40 mg tablet,delayed 1 tab PO BID@0630,1630 01/03/22 08/04/22 08/02/22 History release quetiapine 25 mg tablet 0.5 tab PO BEDTIME 01/03/22 08/04/22 08/02/22 History rosuvastatin 40 mg tablet 1 tab PO BEDTIME 01/03/22 08/04/22 08/02/22 History thiamine HCl (vitamin B1) 100 mg 1 tab PO DAILY 01/03/22 08/04/22 08/02/22 History tablet zolpidem 10 mg tablet 1 tab PO BEDTIME PRN insomnia 01/03/22 08/04/22 08/02/22 History rivaroxaban 20 mg tablet (Xarelto) 1 tab PO DAILY@1700 07/23/22 08/04/22 08/02/22 History aspirin 81 mg tablet,delayed 1 tab PO DAILY 08/04/22 08/04/22 08/02/22 History release tamsulosin 0.4 mg capsule 1 cap PO DAILY 08/04/22 08/04/22 08/02/22 History Physical Exam Vital Signs: Vital Signs: Last Vital Signs Temp 97.5 F 08/09/22 14:57 Pulse 70 08/09/22 14:57 Resp 17 08/09/22 14:57 BP 147/63 H 08/09/22 14:57 Pulse Ox 99 08/09/22 14:57 O2 Del Method 08/09/22 14:57 BMI result Body Mass Index 41.8 Const: General: cooperative HEENT: Head: Yes normal to inspection Face and sinus: Yes normal facial exam Mouth: Normal oral and palatal mucosa present Teeth and gingiva: dentition normal Eyes: General: appearance normal, both eyes and all related structures Pupils: Equal, round and reactive pupils present Resp: Effort & Inspection: normal respiratory effort Cardio: Rate: regular rate Rhythm: regular rhythm GI: Palpation (GI): Soft to palpation and nontender : General: Yes no CVA tenderness Back/Spine/Pelvis: Back: no CVA tenderness Skin: General skin exam: no rashes or lesions noted Neuro: General: moves all extremities Cranial nerves: Yes Equal, round and reactive pupils present Extrem: Other: left foot swelling,wrapped General: Yes normal to inspection Psych: Appearance: grossly normal Results Labs CBC & Chem 7: 08/08/22 09:04 08/09/22 05:46 Labs: BMP 08/09/22 05:46 Sodium 141 Potassium 4.2 Chloride 104 Carbon Dioxide 28 BUN 5 L Creatinine 0.80 Calcium 8.6 Microbiology Microbiology Results: Microbiology 08/04/22 00:19 Blood - Venous Blood Culture - Final No growth after 5 days. 08/04/22 00:19 Blood - Venous Blood Culture - Final No growth after 5 days. Assessment and Plan (1) Diabetic osteomyelitis: Status: Acute He has no specific organisms. He may have gram negative,gram positive or anerobes Plan Would give six weeks IV Ertapenem at home Follow Surgery and can follow with us at [phone] if desired.
--- NOTE | 2022-08-09 15:29 | MHC.CM.PN ---
Male 61 DX Osteo LLE No dc today per MD rounds. The plan is for ID to review the case. The patient had an Angiogram yesterday DP Resume [facility] for wound care and assessment. Family will provide transportation home.
[2022-08-09 16:01] LABS: Glucose, Whole Blood 252 mg/dL (60-115)
[2022-08-09] MEDS: Rivaroxaban 15 MG TABLET PO (16:26)
[2022-08-09 19:32] LABS: Glucose, Whole Blood 223 mg/dL (60-115)
[2022-08-09] MEDS: Atorvastatin Calcium 80 MG TABLET PO (19:55)
[2022-08-09] MEDS: Docusate Sodium 100 MG CAPSULE PO (19:55)
[2022-08-09] MEDS: Montelukast Sodium 10 MG TABLET PO (19:56)
[2022-08-09] MEDS: QUEtiapine Fumarate 25 MG TABLET 12.5 MG PO (19:56)
[2022-08-09] MEDS: Zolpidem Tartrate 5 MG TABLET 10 MG PO (20:55)
[2022-08-09 21:26] LABS: Vancomycin Trough 14.9 mcg/mL (10.0-20.0)
--- NOTE | 2022-08-09 21:48 | HE.PHANOTE ---
VANCO DOSING BASED OF TROUGH OF 14.9 DOSE CONTINUED AT [id number]. NEXT TROUGH 08/11 @ 0900
[2022-08-10 00:11] VITALS: BP 139/64; PULSE 71; RESP 17; TEMP 36.5; O2SAT 96
[2022-08-10] MEDS: Piperacillin Sodium/Tazobactam 3.375 GM in 0.9 % Sodium Chloride 50 ML IV ×2 (01:58→08:07)
[2022-08-10] MEDS: HYDROmorphone HCl 0.5 MG/0.5 ML SYRINGE IVPUSH ×7 (01:58→22:43)
[2022-08-10] MEDS: oxyCODONE HCl Immed Release 5 MG TABLET 10 MG PO ×5 (05:49→19:54)
[2022-08-10] MEDS: Omeprazole 20 MG CAPSULE.DR PO ×2 (05:50→16:37)
[2022-08-10 06:10] LABS: Anion Gap 16 (12-20); Blood Urea Nitrogen 6 mg/dL (9-16); Calcium 8.5 mg/dL (8.4-10.2); Carbon Dioxide 24 mmol/L (22-29); Chloride 105 mmol/L (96-108); Creatinine Clr Calc Pharmacy 123.1; Estimated Glomerular Filt Rate > 60; Glucose Random 239 mg/dL (60-115); Potassium 3.8 mmol/L (3.3-5.1); Sodium 141 mmol/L (135-145)
[2022-08-10 07:27] VITALS: BP 128/58; PULSE 80; RESP 18; TEMP 37.2; O2SAT 96
[2022-08-10 07:48] LABS: Glucose, Whole Blood 233 mg/dL (60-115)
[2022-08-10] MEDS: Docusate Sodium 100 MG CAPSULE PO ×2 (08:07→22:11)
[2022-08-10] MEDS: oxyCODONE HCl ER 10 MG TAB.ER.12H 20 MG PO ×2 (08:07→22:11)
[2022-08-10] MEDS: Ezetimibe 10 MG TABLET PO (08:07)
[2022-08-10] MEDS: Metoprolol Tartrate 25 MG TABLET PO ×2 (08:07→22:12)
[2022-08-10] MEDS: Tamsulosin HCL 0.4 MG CAPSULE PO (08:07)
[2022-08-10] MEDS: 0.9 % Sodium Chloride 1,000 ML 100 ML IVCONT (08:07)
[2022-08-10] MEDS: Isosorbide Mononitrate 30 MG TAB.ER.24H PO (08:07)
[2022-08-10] MEDS: Losartan Potassium 50 MG TABLET PO (08:08)
[2022-08-10] MEDS: Aspirin Enteric Coated 81 MG TABLET.DR PO (08:08)
[2022-08-10] MEDS: Thiamine HCL 100 MG TABLET PO (08:08)
[2022-08-10] MEDS: Gabapentin 300 MG CAPSULE PO ×3 (08:08→22:11)
[2022-08-10] MEDS: Loratadine 10 MG TABLET PO (08:08)
[2022-08-10] MEDS: Insulin Lispro 100 UNIT/ML 3 ML VIAL SUBCUT ×4 (08:09→22:10)
--- NOTE | 2022-08-10 08:56 | MHC.CM.PN ---
PER ID NOTE, PT WILL NEED 6 WEEKS OF IV ERTAPENEM AT DC. REFERRAL MADE TO [facility] PT ACTIVE WITH [facility] MANAGER DAIRY
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
[2022-08-10 11:34] LABS: Glucose, Whole Blood 235 mg/dL (60-115)
[2022-08-10] MEDS: vancomycin HCL 1,000 MG in 0.9 % Sodium Chloride 250 ML 270 MG IV ×2 (11:55→22:42)
--- NOTE | 2022-08-10 13:40 | P.PNGS_ITS ---
Subjective Subjective Date of Service: 08/10/22 Interval history: He still has pain on foot no new complaints Physical Exam Vital Signs: Vital Signs: Last Vital Signs Temp 98.9 F 08/10/22 07:27 Pulse 80 08/10/22 07:27 Resp 18 08/10/22 07:27 BP 128/58 L 08/10/22 07:27 Pulse Ox 96 08/10/22 07:27 O2 Del Method 08/10/22 07:27 BMI result Body Mass Index 41.8 Const: General: no acute distress Resp: Effort & Inspection: normal respiratory effort Cardio: Rate: regular rate Extrem: Other: amputation site clean, no cellulitis, wound dry, sutures intact Objective Data Active Medications Acetaminophen (Acetaminophen 325 Mg Tablet) 650 mg PO Q6H PRN PRN Reason: Pain, Mild (Pain Scale 1-3) Last Admin: 08/08/22 16:36 Dose: 650 mg Documented By: CAMILO Aspirin (Aspirin Enteric Coated 81 Mg Tablet.) 81 mg PO DAILY [facility] Last Admin: 08/10/22 08:08 Dose: 81 mg Documented By: JOO Atorvastatin Calcium (Atorvastatin Calcium 80 Mg Tablet) 80 mg PO BEDTIME [facility] Last Admin: 08/09/22 19:55 Dose: 80 mg Documented By: LUISITO Dextrose (Dextrose 50 % 25 Gm/50 Ml Syringe) 25 gm IVPUSH Q15M PRN; Protocol PRN Reason: per Hypoglycemia Standing Ord. Docusate Sodium (Docusate Sodium 100 Mg Capsule) 100 mg PO BID [facility] Last Admin: 08/10/22 08:07 Dose: 100 mg Documented By: JOO Ezetimibe (Ezetimibe 10 Mg Tablet) 10 mg PO DAILY [facility] Last Admin: 08/10/22 08:07 Dose: 10 mg Documented By: JOO Gabapentin (Gabapentin 300 Mg Capsule) 300 mg PO TID [facility] Last Admin: 08/10/22 08:08 Dose: 300 mg Documented By: JOO Glucose (Glucose Gel 15 Gm Gel..Gram.) 15 gm PO Q15M PRN; Protocol PRN Reason: per Hypoglycemia Standing Ord. Hydromorphone HCl (Hydromorphone Hcl 0.5 Mg/0.5 Ml Syringe) 0.5 mg IVPUSH Q2H PRN; Protocol PRN Reason: severe pain Last Admin: 08/10/22 13:15 Dose: 0.5 mg Documented By: JOO Hydroxyzine HCl (Hydroxyzine Hcl 10 Mg Tablet) 20 mg PO QID PRN PRN Reason: itch Vancomycin HCl 1,000 mg/ (Sodium Chloride) 270 mls @ 270 mls/hr IV Q12H [facility] Last Infusion: 08/10/22 13:09 Dose: 0 mls/hr Documented By: JOO Meropenem 1 gm/ Sodium (Chloride) 100 mls @ 200 mls/hr IV Q8H [facility] Last Admin: 08/10/22 13:16 Dose: 200 mls/hr Documented By: JOO Insulin Human Lispro (Insulin Lispro 100 Unit/Ml 3 Ml Vial) 0 unit SUBCUT QIDACHS [facility]; Protocol Last Admin: 08/10/22 11:52 Dose: 4 unit Documented By: JOO Isosorbide Mononitrate (Isosorbide Mononitrate 30 Mg Tab.Er.24h) 30 mg PO DAILY [facility]; Protocol Last Admin: 08/10/22 08:07 Dose: 30 mg Documented By: JOO Loratadine (Loratadine 10 Mg Tablet) 10 mg PO DAILY [facility] Last Admin: 08/10/22 08:08 Dose: 10 mg Documented By: JOO Losartan Potassium (Losartan Potassium 50 Mg Tablet) 50 mg PO DAILY [facility]; Protocol Last Admin: 08/10/22 08:08 Dose: 50 mg Documented By: JOO Meclizine HCl (Meclizine Hcl 25 Mg Tablet) 25 mg PO TID PRN PRN Reason: dizziness Metoprolol Tartrate (Metoprolol Tartrate 25 Mg Tablet) 25 mg PO BID [facility]; Protoc ol Last Admin: 08/10/22 08:07 Dose: 25 mg Documented By: JOO Montelukast Sodium (Montelukast Sodium 10 Mg Tablet) 10 mg PO BEDTIME [facility] Last Admin: 08/09/22 19:56 Dose: 10 mg Documented By: LUISITO Omeprazole (Omeprazole 20 Mg Capsule.) 20 mg PO BID@0630,1630 [facility] Last Admin: 08/10/22 05:50 Dose: 20 mg Documented By: LUISITO Ondansetron HCl (Ondansetron Hcl 4 Mg/2 Ml Vial) 4 mg IVPUSH Q8H PRN PRN Reason: Nausea and Vomiting Ondansetron HCl (Ondansetron Odt 4 Mg Tab.Rapdis) 4 mg TRANSLINGU TID PRN PRN Reason: nausea Oxycodone HCl (Oxycodone Hcl Immed Release 5 Mg Tablet) 10 mg PO Q4H [facility] Last Admin: 08/10/22 11:47 Dose: 10 mg Documented By: JOO Oxycodone HCl (Oxycodone Hcl Er 10 Mg Tab.Er.12h) 20 mg PO BID [facility] Last Admin: 08/10/22 08:07 Dose: 20 mg Documented By: JOO Pharmacy Consult (Consult Rx Vancomycin Dosing) 1 each MISCELLANE DAILY PRN PRN Reason: Consult order Polyethylene Glycol (Polyethylene Glycol 3350 17 Gm Powd.Pack) 17 gm PO DAILY PRN PRN Reason: constipation Quetiapine Fumarate (Quetiapine Fumarate 25 Mg Tablet) 12.5 mg PO BEDTIME [facility] Last Admin: 08/09/22 19:56 Dose: 12.5 mg Documented By: LUISITO Rivaroxaban (Rivaroxaban 15 Mg Tablet) 15 mg PO DAILY@1700 [facility] Last Admin: 08/09/22 16:26 Dose: 15 mg Documented By: PRISCILA Sodium Chloride (0.9 % Sodium Chloride Flush 3 Ml Syringe) 3 ml IVFLUSH QSHIFT [facility] Last Admin: 08/10/22 07:18 Dose: Not Given Documented By: JOO Non-Admin Reason: IV Running Tamsulosin HCl (Tamsulosin Hcl 0.4 Mg Capsule) 0.4 mg PO DAILY [facility] Last Admin: 08/10/22 08:07 Dose: 0.4 mg Documented By: JOO Thiamine HCl (Thiamine Hcl 100 Mg Tablet) 100 mg PO DAILY [facility] Last Admin: 08/10/22 08:08 Dose: 100 mg Documented By: JOO Zolpidem Tartrate (Zolpidem Tartrate 5 Mg Tablet) 10 mg PO BEDTIME PRN PRN Reason: Insomnia Last Admin: 08/09/22 20:55 Dose: 10 mg Documented By: LUISITO Labs CBC & Chem 7: 08/08/22 09:04 08/10/22 05:24 Labs: Laboratory Results - last 24 hr 10/08/09/22 08/09/22 15:56 19:21 21:00 Anion Gap Estim Creat Clear Calc Estimated GFR POC Glucose 252 H 223 H Random Glucose Calcium Vancomycin Trough 14.9 08/10/22 08/10/22 08/10/22 05:24 07:24 11:13 Anion Gap 16 Estim Creat Clear Calc 123.1 Estimated GFR > 60 POC Glucose 233 H 235 H Random Glucose 239 H Calcium 8.5 Vancomycin Trough Procedures Date of Service Date of Service: 08/10/22 Progress Note: A&P Assessment and plan (1) Osteomyelitis: Status: Acute Assessment and Plan: still has pain on the amputation site on the left foot site looks clean and actually healing well leg elevation pain management dry dressings, Jorge roll applied Time Spent With Patient Time: Total time spent is greater than 50% in coordination of care (as documented) at patient's floor/unit and/or counseling patient: Quality Stroke Does the patient have a stroke diagnosis?: No VTE Prior VTE?: No VTE Risk Level:: Medical - moderate - high VTE Device Contraindication: Treatment Not Indicated VTE Drug Contraindication: N/A - Med Ordered
--- NOTE | 2022-08-10 13:52 | PM.EVENT ---
Event Note Date of Service: 08/10/22 Event Note: Can use Merem while here anticipating Ertapenem as outpatient
[2022-08-10 15:47] VITALS: BP 140/65; PULSE 81; RESP 17; TEMP 36.3; O2SAT 97
[2022-08-10] MEDS: 0.9 % Sodium Chloride Flush 3 ML SYRINGE IVFLUSH ×2 (15:54→23:52)
[2022-08-10 15:57] LABS: Glucose, Whole Blood 236 mg/dL (60-115)
[2022-08-10] MEDS: Rivaroxaban 15 MG TABLET PO (16:45)
[2022-08-10 19:45] VITALS: BP 167/77; PULSE 81; RESP 17; TEMP 36.4; O2SAT 98
[2022-08-10 19:59] LABS: Glucose, Whole Blood 224 mg/dL (60-115)
[2022-08-10] MEDS: QUEtiapine Fumarate 25 MG TABLET 12.5 MG PO (22:11)
[2022-08-10] MEDS: Atorvastatin Calcium 80 MG TABLET PO (22:11)
[2022-08-10] MEDS: Montelukast Sodium 10 MG TABLET PO (22:11)
[2022-08-10] MEDS: Zolpidem Tartrate 5 MG TABLET 10 MG PO (22:43)
[2022-08-11 00:13] VITALS: BP 159/73; PULSE 90; RESP 18; TEMP 36.1; O2SAT 97
[2022-08-11] MEDS: HYDROmorphone HCl 0.5 MG/0.5 ML SYRINGE IVPUSH ×7 (01:12→23:45)
[2022-08-11] MEDS: oxyCODONE HCl Immed Release 5 MG TABLET 10 MG PO ×6 (01:13→21:07)
[2022-08-11] MEDS: 0.9 % Sodium Chloride Flush 3 ML SYRINGE IVFLUSH ×3 (03:57→21:14)
[2022-08-11] MEDS: Omeprazole 20 MG CAPSULE.DR PO ×2 (06:19→16:38)
[2022-08-11 06:54] LABS: Creatinine Clr Calc Pharmacy 134.8; Estimated Glomerular Filt Rate > 60
[2022-08-11 07:36] VITALS: BP 165/75; PULSE 66; RESP 18; TEMP 36.4; O2SAT 97
[2022-08-11 07:55] LABS: Glucose, Whole Blood 248 mg/dL (60-115)
[2022-08-11] MEDS: Isosorbide Mononitrate 30 MG TAB.ER.24H PO (08:08)
[2022-08-11] MEDS: Ezetimibe 10 MG TABLET PO (08:09)
[2022-08-11] MEDS: Insulin Lispro 100 UNIT/ML 3 ML VIAL SUBCUT ×4 (08:09→21:09)
[2022-08-11] MEDS: Aspirin Enteric Coated 81 MG TABLET.DR PO (08:09)
[2022-08-11] MEDS: Loratadine 10 MG TABLET PO (08:09)
[2022-08-11] MEDS: Docusate Sodium 100 MG CAPSULE PO ×2 (08:09→21:06)
[2022-08-11] MEDS: Losartan Potassium 50 MG TABLET PO (08:09)
[2022-08-11] MEDS: oxyCODONE HCl ER 10 MG TAB.ER.12H 20 MG PO ×2 (08:09→21:08)
[2022-08-11] MEDS: Gabapentin 300 MG CAPSULE PO ×3 (08:09→21:06)
[2022-08-11] MEDS: Thiamine HCL 100 MG TABLET PO (08:09)
[2022-08-11] MEDS: Tamsulosin HCL 0.4 MG CAPSULE PO (08:09)
[2022-08-11] MEDS: Metoprolol Tartrate 25 MG TABLET PO ×2 (08:09→21:07)
[2022-08-11 11:02] LABS: Vancomycin Trough 11.4 mcg/mL (10.0-20.0)
--- NOTE | 2022-08-11 11:07 | HE.PHANOTE ---
[vanco addendum] trough 08/11 came back at 11.4; increased dose to 1250mg Q12H with predicted AUC 433mg/L with next level to be drawn 08/12/22 @2100
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
[2022-08-11 11:40] LABS: Glucose, Whole Blood 202 mg/dL (60-115)
--- NOTE | 2022-08-11 12:06 | PM.PNGS ---
Subjective Subjective Date of Service: 08/11/22 Interval history: still with same complaint of pain on left foot Physical Exam Vital Signs: Vital Signs: Last Vital Signs Temp 97.6 F 08/11/22 07:36 Pulse 66 08/11/22 07:36 Resp 18 08/11/22 07:36 BP 165/75 H 08/11/22 07:36 Pulse Ox 97 08/11/22 07:36 O2 Del Method 08/11/22 07:36 BMI result Body Mass Index 41.8 Const: General: comfortable and no acute distress Resp: Effort & Inspection: normal respiratory effort Extrem: Other: left foot - incision clean, no cellulitis, sutures in place Objective Data Active Medications Acetaminophen (Acetaminophen 325 Mg Tablet) 650 mg PO Q6H PRN PRN Reason: Pain, Mild (Pain Scale 1-3) Last Admin: 08/08/22 16:36 Dose: 650 mg Documented By: CAMILO Aspirin (Aspirin Enteric Coated 81 Mg Tablet.Dr) 81 mg PO DAILY [facility] Last Admin: 08/11/22 08:09 Dose: 81 mg Documented By: JOO Atorvastatin Calcium (Atorvastatin Calcium 80 Mg Tablet) 80 mg PO BEDTIME [facility] Last Admin: 08/10/22 22:11 Dose: 80 mg Documented By: BRADLY Dextrose (Dextrose 50 % 25 Gm/50 Ml Syringe) 25 gm IVPUSH Q15M PRN; Protocol PRN Reason: per Hypoglycemia Standing Ord. Docusate Sodium (Docusate Sodium 100 Mg Capsule) 100 mg PO BID [facility] Last Admin: 08/11/22 08:09 Dose: 100 mg Documented By: JOO Ezetimibe (Ezetimibe 10 Mg Tablet) 10 mg PO DAILY [facility] Last Admin: 08/11/22 08:09 Dose: 10 mg Documented By: JOO Gabapentin (Gabapentin 300 Mg Capsule) 300 mg PO TID [facility] Last Admin: 08/11/22 08:09 Dose: 300 mg Documented By: JOO Glucose (Glucose Gel 15 Gm Gel..Gram.) 15 gm PO Q15M PRN; Protocol PRN Reason: per Hypoglycemia Standing Ord. Hydromorphone HCl (Hydromorphone Hcl 0.5 Mg/0.5 Ml Syringe) 0.5 mg IVPUSH Q2H PRN; Protocol PRN Reason: severe pain Last Admin: 08/11/22 11:14 Dose: 0.5 mg Documented By: JOO Hydroxyzine HCl (Hydroxyzine Hcl 10 Mg Tablet) 20 mg PO QID PRN PRN Reason: itch Meropenem 1 gm/ Sodium (Chloride) 100 mls @ 200 mls/hr IV Q8H [facility] Last Admin: 08/11/22 11:57 Dose: 200 mls/hr Documented By: JOO Insulin Human Lispro (Insulin Lispro 100 Unit/Ml 3 Ml Vial) 0 unit SUBCUT QIDACHS [facility]; Protocol Last Admin: 08/11/22 11:56 Dose: 4 unit Documented By: JOO Isosorbide Mononitrate (Isosorbide Mononitrate 30 Mg Tab.Er.24h) 30 mg PO DAILY [facility]; Protocol Last Admin: 08/11/22 08:08 Dose: 30 mg Documented By: JOO Loratadine (Loratadine 10 Mg Tablet) 10 mg PO DAILY [facility] Last Admin: 08/11/22 08:09 Dose: 10 mg Documented By: JOO Losartan Potassium (Losartan Potassium 50 Mg Tablet) 50 mg PO DAILY [facility]; Protocol Last Admin: 08/11/22 08:09 Dose: 50 mg Documented By: JOO Meclizine HCl (Meclizine Hcl 25 Mg Tablet) 25 mg PO TID PRN PRN Reason: dizziness Metoprolol Tartrate (Metoprolol Tartrate 25 Mg Tablet) 25 mg PO BID [facility]; Protocol Last Admin: 08/11/22 08:09 Dose: 25 mg Documented By: JOO Montelukast Sodium (Montelukast Sodium 10 Mg Tablet) 10 mg PO BEDTIME [facility] Last Admin: 08/10/22 22:11 Dose: 10 mg Documented By: BRADLY Omeprazole (Omeprazole 20 Mg Capsule.Dr) 20 mg PO BID@0630,1630 [facility] Last Admin: 08/11/22 06:19 Dose: 20 mg Documented By: BRADLY Ondansetron HCl (Ondansetron Hcl 4 Mg/2 Ml Vial) 4 mg IVPUSH Q8H PRN PRN Reason: Nausea and Vomiting Ondansetron HCl (Ondansetron Odt 4 Mg Tab.Rapdis) 4 mg TRANSLINGU TID PRN PRN Reason: nausea Oxycodone HCl (Oxycodone Hcl Immed Release 5 Mg Tablet) 10 mg PO Q4H [facility] Last Admin: 08/11/22 11:56 Dose: 10 mg Documented By: JOO Oxycodone HCl (Oxycodone Hcl Er 10 Mg Tab.Er.12h) 20 mg PO BID [facility] Last Admin: 08/11/22 08:09 Dose: 20 mg Documented By: JOO Pharmacy Consult (Consult Rx Vancomycin Dosing) 1 each MISCELLANE DAILY PRN PRN Reason: Consult order Polyethylene Glycol (Polyethylene Glycol 3350 17 Gm Powd.Pack) 17 gm PO DAILY PRN PRN Reason: constipation Quetiapine Fumarate (Quetiapine Fumarate 25 Mg Tablet) 12.5 mg PO BEDTIME [facility] Last Admin: 08/10/22 22:11 Dose: 12.5 mg Documented By: BRADLY Rivaroxaban (Rivaroxaban 15 Mg Tablet) 15 mg PO DAILY@1700 [facility] Last Admin: 08/10/22 16:45 Dose: 15 mg Documented By: JOO Sodium Chloride (0.9 % Sodium Chloride Flush 3 Ml Syringe) 3 ml IVFLUSH QSHIFT [facility] Last Admin: 08/11/22 03:57 Dose: 3 ml Documented By: BRADLY Tamsulosin HCl (Tamsulosin Hcl 0.4 Mg Capsule) 0.4 mg PO DAILY [facility] Last Admin: 08/11/22 08:09 Dose: 0.4 mg Documented By: JOO Thiamine HCl (Thiamine Hcl 100 Mg Tablet) 100 mg PO DAILY [facility] Last Admin: 08/11/22 08:09 Dose: 100 mg Documented By: JOO Zolpidem Tartrate (Zolpidem Tartrate 5 Mg Tablet) 10 mg PO BEDTIME PRN PRN Reason: Insomnia Last Admin: 08/10/22 22:43 Dose: 10 mg Documented By: BRADLY Labs CBC & Chem 7: 08/08/22 09:04 08/11/22 06:17 Labs: Laboratory Results - last 24 hr 08/10/22 08/10/22 08/11/22 15:50 19:49 06:17 Estim Creat Clear Calc 134.8 Estimated GFR > 60 POC Glucose 236 H 224 H Vancomycin Trough 08/11/22 08/11/22 08/11/22 07:36 10:12 11:30 Estim Creat Clear Calc Estimated GFR POC Glucose 248 H 202 H Vancomycin Trough 11.4 Procedures Date of Service Date of Service: 08/11/22 Progress Note: A&P Assessment and plan (1) Diabetic osteomyelitis: Status: Acute Assessment and Plan: s/p amputation of 2nd toe with persistent pain dressings changed, foot wrapped in Jorge roll incision looks clean pain mgt Time Spent With Patient Time: Total time spent is greater than 50% in coordination of care (as documented) at patient's floor/unit and/or counseling patient: Quality Stroke Does the patient have a stroke diagnosis?: No VTE Prior VTE?: No VTE Risk Level:: Medical - moderate - high VTE Device Contraindication: Treatment Not Indicated VTE Drug Contraindication: N/A - Med Ordered
[2022-08-11] MEDS: Acetaminophen 325 MG TABLET 650 MG PO (15:08)
[2022-08-11 15:32] VITALS: BP 148/69; PULSE 65; RESP 17; TEMP 36.4; O2SAT 96
[2022-08-11 16:20] LABS: Glucose, Whole Blood 185 mg/dL (60-115)
[2022-08-11] MEDS: Rivaroxaban 15 MG TABLET PO (16:38)
[2022-08-11 19:13] VITALS: BP 147/67; PULSE 70; RESP 17; TEMP 36.4; O2SAT 93
[2022-08-11 20:07] LABS: Glucose, Whole Blood 216 mg/dL (60-115)
[2022-08-11] MEDS: QUEtiapine Fumarate 25 MG TABLET 12.5 MG PO (21:06)
[2022-08-11] MEDS: Atorvastatin Calcium 80 MG TABLET PO (21:06)
[2022-08-11] MEDS: Montelukast Sodium 10 MG TABLET PO (21:08)
[2022-08-11] MEDS: Zolpidem Tartrate 5 MG TABLET 10 MG PO (23:44)
[2022-08-12 00:17] VITALS: BP 171/76; PULSE 68; RESP 18; TEMP 36.4; O2SAT 97
[2022-08-12] MEDS: oxyCODONE HCl Immed Release 5 MG TABLET 10 MG PO ×7 (00:25→23:32)
[2022-08-12] MEDS: HYDROmorphone HCl 0.5 MG/0.5 ML SYRINGE IVPUSH ×6 (03:04→22:04)
[2022-08-12] MEDS: Omeprazole 20 MG CAPSULE.DR PO ×2 (06:02→16:11)
[2022-08-12 06:05] LABS: Creatinine Clr Calc Pharmacy 134.8; Estimated Glomerular Filt Rate > 60
[2022-08-12 07:00] VITALS: BP 187/87; PULSE 68; RESP 18; TEMP 35.8; O2SAT 97
[2022-08-12 07:29] LABS: Glucose, Whole Blood 254 mg/dL (60-115)
[2022-08-12] MEDS: Metoprolol Tartrate 25 MG TABLET PO ×2 (07:42→19:39)
[2022-08-12] MEDS: Insulin Lispro 100 UNIT/ML 3 ML VIAL SUBCUT ×4 (07:42→19:40)
[2022-08-12] MEDS: Gabapentin 300 MG CAPSULE PO ×3 (07:42→19:39)
[2022-08-12] MEDS: Ezetimibe 10 MG TABLET PO (07:42)
[2022-08-12] MEDS: Isosorbide Mononitrate 30 MG TAB.ER.24H PO (07:43)
[2022-08-12] MEDS: Losartan Potassium 50 MG TABLET PO (07:43)
[2022-08-12] MEDS: oxyCODONE HCl ER 10 MG TAB.ER.12H 20 MG PO ×2 (07:43→19:39)
[2022-08-12] MEDS: Tamsulosin HCL 0.4 MG CAPSULE PO (07:43)
[2022-08-12] MEDS: Loratadine 10 MG TABLET PO (07:44)
[2022-08-12] MEDS: Docusate Sodium 100 MG CAPSULE PO ×2 (07:44→19:40)
[2022-08-12] MEDS: Aspirin Enteric Coated 81 MG TABLET.DR PO (07:44)
--- NOTE | 2022-08-12 08:08 | P.PNGS_ITS ---
Subjective Subjective Date of Service: 08/12/22 Interval history: Patient continues to complain of pain in the left foot. Pain is well controlled with oral and IV pain medications. Has not tried just oral pain medication. Physical Exam Vital Signs: Vital Signs: Last Vital Signs Temp 96.4 F L 08/12/22 07:00 Pulse 68 08/12/22 07:00 Resp 18 08/12/22 07:00 BP 187/87 H 08/12/22 07:00 Pulse Ox 97 08/12/22 07:00 O2 Del Method 08/12/22 07:00 BMI result Body Mass Index 41.8 Const: General: comfortable and no acute distress Nutritional Appearance: well nourished Orientation/consciousness: patient oriented x3 Limitations: no limitations Resp: Effort & Inspection: normal respiratory effort, no audible wheezes and no cough Auscultation: clear to auscultation bilaterally Neuro: General: patient oriented x3 Extrem: Other: Dressings changed, minimal serosanguineous discharge noted. No erythema. Objective Data Active Medications Acetaminophen (Acetaminophen 325 Mg Tablet) 650 mg PO Q6H PRN PRN Reason: Pain, Mild (Pain Scale 1-3) Last Admin: 08/11/22 15:08 Dose: 650 mg Documented By: JOO Aspirin (Aspirin Enteric Coated 81 Mg Tablet.Dr) 81 mg PO DAILY [facility] Last Admin: 08/12/22 07:44 Dose: 81 mg Documented By: CECY Atorvastatin Calcium (Atorvastatin Calcium 80 Mg Tablet) 80 mg PO BEDTIME [facility] Last Admin: 08/11/22 21:06 Dose: 80 mg Documented By: KARLI Dextrose (Dextrose 50 % 25 Gm/50 Ml Syringe) 25 gm IVPUSH Q15M PRN; Protocol PRN Reason: per Hypoglycemia Standing Ord. Docusate Sodium (Docusate Sodium 100 Mg Capsule) 100 mg PO BID [facility] Last Admin: 08/12/22 07:44 Dose: 100 mg Documented By: CECY Ezetimibe (Ezetimibe 10 Mg Tablet) 10 mg PO DAILY [facility] Last Admin: 08/12/22 07:42 Dose: 10 mg Documented By: CECY Gabapentin (Gabapentin 300 Mg Capsule) 300 mg PO TID [facility] Last Admin: 08/12/22 07:42 Dose: 300 mg Documented By: CECY Glucose (Glucose Gel 15 Gm Gel..Gram.) 15 gm PO Q15M PRN; Protocol PRN Reason: per Hypoglycemia Standing Ord. Hydromorphone HCl (Hydromorphone Hcl 0.5 Mg/0.5 Ml Syringe) 0.5 mg IVPUSH Q2H PRN; Protocol PRN Reason: severe pain Last Admin: 08/12/22 06:02 Dose: 0.5 mg Documented By: KARLI Hydroxyzine HCl (Hydroxyzine Hcl 10 Mg Tablet) 20 mg PO QID PRN PRN Reason: itch Meropenem 1 gm/ Sodium (Chloride) 100 mls @ 200 mls/hr IV Q8H [facility] Last Infusion: 08/12/22 04:18 Dose: 200 mls/hr Documented By: KARLI Insulin Human Lispro (Insulin Lispro 100 Unit/Ml 3 Ml Vial) 0 unit SUBCUT QIDACHS [facility]; Protocol Last Admin: 08/12/22 07:42 Dose: 6 unit Documented By: CECY Isosorbide Mononitrate (Isosorbide Mononitrate 30 Mg Tab.Er.24h) 30 mg PO DAILY [facility]; Protocol Last Admin: 08/12/22 07:43 Dose: 30 mg Documented By: CECY Loratadine (Loratadine 10 Mg Tablet) 10 mg PO DAILY [facility] Last Admin: 08/12/22 07:44 Dose: 10 mg Documented By: CECY Losartan Potassium (Losartan Potassium 50 Mg Tablet) 100 mg PO DAILY [facility]; Protocol Meclizine HCl (Meclizine Hcl 25 Mg Tablet) 25 mg PO TID PRN PRN Reason: dizziness Metoprolol Tartrate (Metoprolol Tartrate 25 Mg Tablet) 25 mg PO BID [facility]; Protocol Last Admin: 08/12/22 07:42 Dose: 25 mg Documented By: CECY Montelukast Sodium (Montelukast Sodium 10 Mg Tablet) 10 mg PO BEDTIME [facility] Last Admin: 08/11/22 21:08 Dose: 10 mg Documented By: KARLI Omeprazole (Omeprazole 20 Mg Capsule.) 20 mg PO BID@0630,1630 [facility] Last Admin: 08/12/22 06:02 Dose: 20 mg Documented By: KARLI Ondansetron HCl (Ondansetron Hcl 4 Mg/2 Ml Vial) 4 mg IVPUSH Q8H PRN PRN Reason: Nausea and Vomiting Ondansetron HCl (Ondansetron Odt 4 Mg Tab.Rapdis) 4 mg TRANSLINGU TID PRN PRN Reason: nausea Oxycodone HCl (Oxycodone Hcl Immed Release 5 Mg Tablet) 10 mg PO Q4H [facility] Last Admin: 08/12/22 07:43 Dose: 10 mg Documented By: CECY Oxycodone HCl (Oxycodone Hcl Er 10 Mg Tab.Er.12h) 20 mg PO BID [facility] Last Admin: 08/12/22 07:43 Dose: 20 mg Documented By: CECY Pharmacy Consult (Consult Rx Vancomycin Dosing) 1 each MISCELLANE DAILY PRN PRN Reason: Consult order Polyethylene Glycol (Polyethylene Glycol 3350 17 Gm Powd.Pack) 17 gm PO DAILY PRN PRN Reason: constipation Quetiapine Fumarate (Quetiapine Fumarate 25 Mg Tablet) 12.5 mg PO BEDTIME [facility] Last Admin: 08/11/22 21:06 Dose: 12.5 mg Documented By: KARLI Rivaroxaban (Rivaroxaban 15 Mg Tablet) 15 mg PO DAILY@1700 [facility] Last Admin: 08/11/22 16:38 Dose: 15 mg Documented By: JOO Sodium Chloride (0.9 % Sodium Chloride Flush 3 Ml Syringe) 3 ml IVFLUSH QSHIFT [facility] Last Admin: 08/11/22 21:14 Dose: 3 ml Documented By: KARLI Tamsulosin HCl (Tamsulosin Hcl 0.4 Mg Capsule) 0.4 mg PO DAILY [facility] Last Admin: 08/12/22 07:43 Dose: 0.4 mg Documented By: CECY Thiamine HCl (Thiamine Hcl 100 Mg Tablet) 100 mg PO DAILY [facility] Last Admin: 08/11/22 08:09 Dose: 100 mg Documented By: JOO Zolpidem Tartrate (Zolpidem Tartrate 5 Mg Tablet) 10 mg PO BEDTIME PRN PRN Reason: Insomnia Last Admin: 08/11/22 23:44 Dose: 10 mg Documented By: KARLI Labs CBC & Chem 7: 08/08/22 09:04 08/12/22 05:11 Labs: Laboratory Results - last 24 hr 08/11/22 08/11/22 08/11/22 10:12 11:30 15:37 Estim Creat Clear Calc Estimated GFR POC Glucose 202 H 185 H Vancomycin Trough 11.4 08/11/22 08/12/22 08/12/22 19:15 05:11 07:07 Estim Creat Clear Calc 134.8 Estimated GFR > 60 POC Glucose 216 H 254 H Vancomycin Trough Procedures Date of Service Date of Service: 08/12/22 Progress Note: A&P Assessment and plan (1) Diabetic osteomyelitis: Status: Acute (2) Cellulitis and abscess of foot: Status: Acute Plan S/P amputation of 2nd toe. Wounds are clean, intact, with a small amount of serosanguineous discharge. No erythema is appreciated. Plan for home IV antibiotics as per Infectious Disease for 6 weeks. Time Spent With Patient Time: Total time spent is greater than 50% in coordination of care (as documented) at patient's floor/unit and/or counseling patient: Quality Stroke Does the patient have a stroke diagnosis?: No VTE Prior VTE?: No VTE Risk Level:: Medical - moderate - high VTE Device Contraindication: Treatment Not Indicated VTE Drug Contraindication: N/A - Med Ordered
[2022-08-12] MEDS: Losartan Potassium 50 MG TABLET 100 MG PO (09:19)
[2022-08-12] MEDS: 0.9 % Sodium Chloride Flush 3 ML SYRINGE IVFLUSH ×3 (09:20→19:47)
[2022-08-12] MEDS: Thiamine HCL 100 MG TABLET PO (09:24)
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
[2022-08-12 11:40] LABS: Glucose, Whole Blood 226 mg/dL (60-115)
[2022-08-12 11:50] VITALS: BP 128/57; PULSE 65; RESP 18; TEMP 36; O2SAT 94
--- NOTE | 2022-08-12 15:20 | P.F2F_ITS ---
Service Date Service Date: 08/12/22 Encounter Date of encounter: 08/12/22 Reasons for Services Signs and symptoms assessed: Osteomyelitis to left foot Reason for senior care: central line care and medication treatment Homebound: Leaving the home is medically contraindicated at this time without the asist of a device and/or another person due th the listed conditions above and below. Reason homebound: unsteady gait / fall risk and weakness related to hospital stay Certification: Based on the above findings, I certify that this patient is confined to the home and needs intermittent senior care care, physical therapy and/or speech therapy, or continues to need occupational therapy. The patient is under my care, and I have initiated the establishment of the plan of care. The patient will be followed by a physician who will periodically review the plan of care.
--- NOTE | 2022-08-12 15:46 | PC.NURSE ---
Unable to place PICC line after several attempts. Radiologist will place PICC 08/13/22. Yael Lopez NP and Talita HERNANDEZ are aware.
[2022-08-12 16:10] VITALS: BP 175/84; PULSE 79; RESP 17; TEMP 36.4; O2SAT 96
[2022-08-12] MEDS: Rivaroxaban 15 MG TABLET PO (16:11)
--- NOTE | 2022-08-12 16:11 | MHC.CM.PN ---
PLAN WAS FOR PT TO D/C TODAY AFTER PICC LINE PLACED W/[facility] AND [facility] HOWEVER IR UNABLE TO PLACE LINE AND WILL RETRY TOMRORROW AM AT 7:30AM, PT WILL NEED A FIRST DOSE OF ERTAPENEM THROUGH PICC PRIOR TO D/C.
[2022-08-12] MEDS: Acetaminophen 325 MG TABLET 650 MG PO ×2 (16:17→22:04)
[2022-08-12 16:22] LABS: Glucose, Whole Blood 259 mg/dL (60-115)
[2022-08-12 19:22] VITALS: BP 174/78; PULSE 70; RESP 17; TEMP 36.4; O2SAT 95
[2022-08-12] MEDS: Atorvastatin Calcium 80 MG TABLET PO (19:39)
[2022-08-12] MEDS: Montelukast Sodium 10 MG TABLET PO (19:40)
[2022-08-12] MEDS: QUEtiapine Fumarate 25 MG TABLET 12.5 MG PO (19:40)
[2022-08-12 20:02] LABS: Glucose, Whole Blood 327 mg/dL (60-115)
[2022-08-12 21:28] LABS: Vancomycin Trough 3.5 mcg/mL (10.0-20.0)
[2022-08-12] MEDS: Zolpidem Tartrate 5 MG TABLET 10 MG PO (22:31)
[2022-08-12 23:32] VITALS: BP 139/82; PULSE 75; RESP 18; TEMP 36.2; O2SAT 99
[2022-08-13] MEDS: HYDROmorphone HCl 0.5 MG/0.5 ML SYRINGE IVPUSH ×4 (00:34→10:50)
[2022-08-13 03:38] VITALS: BP 146/77; PULSE 64; RESP 18; TEMP 36.6; O2SAT 97
[2022-08-13] MEDS: oxyCODONE HCl Immed Release 5 MG TABLET 10 MG PO ×3 (03:42→12:27)
[2022-08-13 06:00] LABS: Creatinine Clr Calc Pharmacy 131.2; Estimated Glomerular Filt Rate > 60
[2022-08-13] MEDS: Omeprazole 20 MG CAPSULE.DR PO (06:24)
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
[2022-08-13 08:43] LABS: Glucose, Whole Blood 346 mg/dL (60-115)
[2022-08-13] MEDS: Losartan Potassium 50 MG TABLET 100 MG PO (08:48)
[2022-08-13] MEDS: oxyCODONE HCl ER 10 MG TAB.ER.12H 20 MG PO (08:48)
[2022-08-13] MEDS: Tamsulosin HCL 0.4 MG CAPSULE PO (08:48)
[2022-08-13] MEDS: Insulin Lispro 100 UNIT/ML 3 ML VIAL SUBCUT ×2 (08:48→11:35)
[2022-08-13] MEDS: Isosorbide Mononitrate 30 MG TAB.ER.24H PO (08:48)
[2022-08-13] MEDS: Ezetimibe 10 MG TABLET PO (08:49)
[2022-08-13] MEDS: Thiamine HCL 100 MG TABLET PO (08:49)
[2022-08-13] MEDS: Metoprolol Tartrate 25 MG TABLET PO (08:49)
[2022-08-13] MEDS: Gabapentin 300 MG CAPSULE PO (08:49)
[2022-08-13] MEDS: Loratadine 10 MG TABLET PO (08:49)
[2022-08-13 08:50] VITALS: BP 177/84; PULSE 68; RESP 17; TEMP 36.7; O2SAT 98
[2022-08-13] MEDS: Aspirin Enteric Coated 81 MG TABLET.DR PO (08:50)
[2022-08-13] MEDS: 0.9 % Sodium Chloride Flush 3 ML SYRINGE IVFLUSH (08:50)
[2022-08-13] MEDS: Docusate Sodium 100 MG CAPSULE PO (08:50)
--- NOTE | 2022-08-13 09:04 | MHC.CM.PN ---
EMR REVIEWED, PICC LINE PLACED THIS AM, PT WILL D/C HOME W/[facility] AND [facility] FOR IV ERTAPENEM X6WKS, PT WILL ARRANGE TRANSPORT
--- NOTE | 2022-08-13 10:13 | HO.PM.IMPN ---
Subjective Subjective Date of Service: 08/13/22 Interval History: Follow up for cellulitis s/p angiogram yesterday showing good blood flow reporting ongoing foot pain, although appears to be improving slowly Review of Systems Review of Systems: Yes all other systems are reviewed and are negative Constitutional Constitutional: Reports chills and Denies fever(s) Cardiovascular Cardiovascular: Denies chest pain, Denies palpitations and Denies dyspnea Respiratory Respiratory: Denies cough and Denies dyspnea Gastrointestinal Gastrointestinal: Denies abdominal pain, Denies nausea and Denies vomiting Endocrine Endocrine: Denies palpitations Physical Exam Vital Signs: Vital Signs: Last Vital Signs Temp 98.0 F 08/13/22 08:50 Pulse 68 08/13/22 08:50 Resp 17 08/13/22 08:50 BP 177/84 H 08/13/22 08:50 Pulse Ox 98 08/13/22 08:50 O2 Del Method 08/13/22 08:50 BMI result Body Mass Index 41.8 Objective Data Active Medications Acetaminophen (Acetaminophen 325 Mg Tablet) 650 mg PO Q6H PRN PRN Reason: Pain, Mild (Pain Scale 1-3) Last Admin: 08/12/22 22:04 Dose: 650 mg Documented By: EWA Aspirin (Aspirin Enteric Coated 81 Mg Tablet.Dr) 81 mg PO DAILY [facility] Last Admin: 08/13/22 08:50 Dose: 81 mg Documented By: CECY Atorvastatin Calcium (Atorvastatin Calcium 80 Mg Tablet) 80 mg PO BEDTIME [facility] Last Admin: 08/12/22 19:39 Dose: 80 mg Documented By: EWA Dextrose (Dextrose 50 % 25 Gm/50 Ml Syringe) 25 gm IVPUSH Q15M PRN; Protocol PRN Reason: per Hypoglycemia Standing Ord. Docusate Sodium (Docusate Sodium 100 Mg Capsule) 100 mg PO BID [facility] Last Admin: 08/13/22 08:50 Dose: 100 mg Documented By: CECY Ezetimibe (Ezetimibe 10 Mg Tablet) 10 mg PO DAILY [facility] Last Admin: 08/13/22 08:49 Dose: 10 mg Documented By: CECY Gabapentin (Gabapentin 300 Mg Capsule) 300 mg PO TID [facility] Last Admin: 08/13/22 08:49 Dose: 300 mg Documented By: CECY Glucose (Glucose Gel 15 Gm Gel..Gram.) 15 gm PO Q15M PRN; Protocol PRN Reason: per Hypoglycemia Standing Ord. Hydromorphone HCl (Hydromorphone Hcl 0.5 Mg/0.5 Ml Syringe) 0.5 mg IVPUSH Q2H PRN; Protocol PRN Reason: severe pain Last Admin: 08/13/22 06:24 Dose: 0.5 mg Documented By: EWA Hydroxyzine HCl (Hydroxyzine Hcl 10 Mg Tablet) 20 mg PO QID PRN PRN Reason: itch Meropenem 1 gm/ Sodium (Chloride) 100 mls @ 200 mls/hr IV Q8H [facility] Last Infusion: 08/13/22 04:20 Dose: 0 mls/hr Documented By: EWA Insulin Human Lispro (Insulin Lispro 100 Unit/Ml 3 Ml Vial) 0 unit SUBCUT QIDACHS [facility]; Protocol Last Admin: 08/13/22 08:48 Dose: 8 unit Documented By: CECY Isosorbide Mononitrate (Isosorbide Mononitrate 30 Mg Tab.Er.24h) 30 mg PO DAILY [facility]; Protocol Last Admin: 08/13/22 08:48 Dose: 30 mg Documented By: CECY Loratadine (Loratadine 10 Mg Tablet) 10 mg PO DAILY [facility] Last Admin: 08/13/22 08:49 Dose: 10 mg Documented By: CECY Losartan Potassium (Losartan Potassium 50 Mg Tablet) 100 mg PO DAILY [facility]; Protocol Last Admin: 08/13/22 08:48 Dose: 100 mg Documented By: CECY Meclizine HCl (Meclizine Hcl 25 Mg Tablet) 25 mg PO TID PRN PRN Reason: dizziness Metoprolol Tartrate (Metoprolol Tartrate 25 Mg Tablet) 25 mg PO BID [facility]; Protocol Last Admin: 08/13/22 08:49 Dose: 25 mg Documented By: CECY Montelukast Sodium (Montelukast Sodium 10 Mg Tablet) 10 mg PO BEDTIME [facility] Last Admin: 08/12/22 19:40 Dose: 10 mg Documented By: EWA Omeprazole (Omeprazole 20 Mg Capsule.Dr) 20 mg PO BID@0630,1630 [facility] Last Admin: 08/13/22 06:24 Dose: 20 mg Documented By: EWA Ondansetron HCl (Ondansetron Hcl 4 Mg/2 Ml Vial) 4 mg IVPUSH Q8H PRN PRN Reason: Nausea and Vomiting Ondansetron HCl (Ondansetron Odt 4 Mg Tab.Rapdis) 4 mg TRANSLINGU TID PRN PRN Reason: nausea Oxycodone HCl (Oxycodone Hcl Immed Release 5 Mg Tablet) 10 mg PO Q4H [facility] Last Admin: 08/13/22 08:50 Dose: 10 mg Documented By: CECY Oxycodone HCl (Oxycodone Hcl Er 10 Mg Tab.Er.12h) 20 mg PO BID [facility] Last Admin: 08/13/22 08:48 Dose: 20 mg Documented By: CECY Pharmacy Consult (Consult Rx Vancomycin Dosing) 1 each MISCELLANE DAILY PRN PRN Reason: Consult order Polyethylene Glycol (Polyethylene Glycol 3350 17 Gm Powd.Pack) 17 gm PO DAILY PRN PRN Reason: constipation Quetiapine Fumarate (Quetiapine Fumarate 25 Mg Tablet) 12.5 mg PO BEDTIME [facility] Last Admin: 08/12/22 19:40 Dose: 12.5 mg Documented By: EWA Rivaroxaban (Rivaroxaban 15 Mg Tablet) 15 mg PO DAILY@1700 [facility] Last Admin: 08/12/22 16:11 Dose: 15 mg Documented By: CECY Sodium Chloride (0.9 % Sodium Chloride Flush 3 Ml Syringe) 3 ml IVFLUSH QSHIFT [facility] Last Admin: 08/13/22 08:50 Dose: 3 ml Documented By: CECY Tamsulosin HCl (Tamsulosin Hcl 0.4 Mg Capsule) 0.4 mg PO DAILY [facility] Last Admin: 08/13/22 08:48 Dose: 0.4 mg Documented By: CECY Thiamine HCl (Thiamine Hcl 100 Mg Tablet) 100 mg PO DAILY [facility] Last Admin: 08/13/22 08:49 Dose: 100 mg Documented By: CECY Zolpidem Tartrate (Zolpidem Tartrate 5 Mg Tablet) 10 mg PO BEDTIME PRN PRN Reason: Insomnia Last Admin: 08/12/22 22:31 Dose: 10 mg Documented By: EWA Labs CBC & Chem 7: 08/08/22 09:04 08/13/22 05:14 Labs: Laboratory Results - last 24 hr 08/12/22 08/12/22 08/12/22 11:29 16:18 19:24 Estim Creat Clear Calc Estimated GFR POC Glucose 226 H 259 H 327 H Vancomycin Trough 08/12/22 08/13/22 08/13/22 20:59 05:14 08:40 Estim Creat Clear Calc 131.2 Estimated GFR > 60 POC Glucose 346 H Vancomycin Trough 3.5 L Quality Stroke Does the patient have a stroke diagnosis?: No VTE Prior VTE?: No VTE Risk Level:: Medical - moderate - high VTE Device Contraindication: Treatment Not Indicated VTE Drug Contraindication: N/A - Med Ordered
[2022-08-13 11:19] LABS: Glucose, Whole Blood 264 mg/dL (60-115)
[2022-08-13] MEDS: Ertapenem Sodium 1 GM in 0.9 % Sodium Chloride 50 ML IV (11:34)
--- NOTE | 2022-08-13 11:41 | PM.PNGS ---
Subjective Subjective Date of Service: 08/13/22 Interval history: Patient reports some throbbing pain in the left foot but otherwise feels well. He is anxious to go home today. Physical Exam Vital Signs: Vital Signs: Last Vital Signs Temp 98.0 F 08/13/22 08:50 Pulse 68 08/13/22 08:50 Resp 17 08/13/22 08:50 BP 177/84 H 08/13/22 08:50 Pulse Ox 98 08/13/22 08:50 O2 Del Method 08/13/22 08:50 BMI result Body Mass Index 41.8 Const: General: healthy appearing and comfortable Nutritional Appearance: well nourished Orientation/consciousness: patient oriented x3 Limitations: no limitations Resp: Effort & Inspection: normal respiratory effort Neuro: General: patient oriented x3 Extrem: Other: Dressings changed to the left foot. Wounds remain intact with a small separation in the proximal incision at the site of suture removal. No erythema is identified. Edema is much improved as well. Clean sterile dressings applied. Objective Data Active Medications Acetaminophen (Acetaminophen 325 Mg Tablet) 650 mg PO Q6H PRN PRN Reason: Pain, Mild (Pain Scale 1-3) Last Admin: 08/12/22 22:04 Dose: 650 mg Documented By: EWA Aspirin (Aspirin Enteric Coated 81 Mg Tablet.) 81 mg PO DAILY [facility] Last Admin: 08/13/22 08:50 Dose: 81 mg Documented By: CECY Atorvastatin Calcium (Atorvastatin Calcium 80 Mg Tablet) 80 mg PO BEDTIME [facility] Last Admin: 08/12/22 19:39 Dose: 80 mg Documented By: EWA Dextrose (Dextrose 50 % 25 Gm/50 Ml Syringe) 25 gm IVPUSH Q15M PRN; Protocol PRN Reason: per Hypoglycemia Standing Ord. Docusate Sodium (Docusate Sodium 100 Mg Capsule) 100 mg PO BID [facility] Last Admin: 08/13/22 08:50 Dose: 100 mg Documented By: CECY Ezetimibe (Ezetimibe 10 Mg Tablet) 10 mg PO DAILY [facility] Last Admin: 08/13/22 08:49 Dose: 10 mg Documented By: CECY Gabapentin (Gabapentin 300 Mg Capsule) 300 mg PO TID [facility] Last Admin: 08/13/22 08:49 Dose: 300 mg Documented By: CECY Glucose (Glucose Gel 15 Gm Gel..Gram.) 15 gm PO Q15M PRN; Protocol PRN Reason: per Hypoglycemia Standing Ord. Hydromorphone HCl (Hydromorphone Hcl 0.5 Mg/0.5 Ml Syringe) 0.5 mg IVPUSH Q2H PRN; Protocol PRN Reason: severe pain Last Admin: 08/13/22 10:50 Dose: 0.5 mg Documented By: CECY Hydroxyzine HCl (Hydroxyzine Hcl 10 Mg Tablet) 20 mg PO QID PRN PRN Reason: itch Meropenem 1 gm/ Sodium (Chloride) 100 mls @ 200 mls/hr IV Q8H [facility] Last Infusion: 08/13/22 04:20 Dose: 0 mls/hr Documented By: EWA Insulin Human Lispro (Insulin Lispro 100 Unit/Ml 3 Ml Vial) 0 unit SUBCUT QIDACHS [facility]; Protocol Last Admin: 08/13/22 11:35 Dose: 6 unit Documented By: CECY Isosorbide Mononitrate (Isosorbide Mononitrate 30 Mg Tab.Er.24h) 30 mg PO DAILY [facility]; Protocol Last Admin: 08/13/22 08:48 Dose: 30 mg Documented By: CECY Loratadine (Loratadine 10 Mg Tablet) 10 mg PO DAILY [facility] Last Admin: 08/13/22 08:49 Dose: 10 mg Documented By: CECY Losartan Potassium (Losartan Potassium 50 Mg Tablet) 100 mg PO DAILY [facility]; Protocol Last Admin: 08/13/22 08:48 Dose: 100 mg Documented By: CECY Meclizine HCl (Meclizine Hcl 25 Mg Tablet) 25 mg PO TID PRN PRN Reason: dizziness Metoprolol Tartrate (Metoprolol Tartrate 25 Mg Tablet) 25 mg PO BID [facility]; Protocol Last Admin: 08/13/22 08:49 Dose: 25 mg Documented By: CECY Montelukast Sodium (Montelukast Sodium 10 Mg Tablet) 10 mg PO BEDTIME [facility] Last Admin: 08/12/22 19:40 Dose: 10 mg Documented By: EWA Omeprazole (Omeprazole 20 Mg Capsule.Dr) 20 mg PO BID@0630,1630 [facility] Last Admin: 08/13/22 06:24 Dose: 20 mg Documented By: EWA Ondansetron HCl (Ondansetron Hcl 4 Mg/2 Ml Vial) 4 mg IVPUSH Q8H PRN PRN Reason: Nausea and Vomiting Ondansetron HCl (Ondansetron Odt 4 Mg Tab.Rapdis) 4 mg TRANSLINGU TID PRN PRN Reason: nausea Oxycodone HCl (Oxycodone Hcl Immed Release 5 Mg Tablet) 10 mg PO Q4H [facility] Last Admin: 08/13/22 08:50 Dose: 10 mg Documented By: CECY Oxycodone HCl (Oxycodone Hcl Er 10 Mg Tab.Er.12h) 20 mg PO BID [facility] Last Admin: 08/13/22 08:48 Dose: 20 mg Documented By: CECY Pharmacy Consult (Consult Rx Vancomycin Dosing) 1 each MISCELLANE DAILY PRN PRN Reason: Consult order Polyethylene Glycol (Polyethylene Glycol 3350 17 Gm Powd.Pack) 17 gm PO DAILY PRN PRN Reason: constipation Quetiapine Fumarate (Quetiapine Fumarate 25 Mg Tablet) 12.5 mg PO BEDTIME [facility] Last Admin: 08/12/22 19:40 Dose: 12.5 mg Documented By: EWA Rivaroxaban (Rivaroxaban 15 Mg Tablet) 15 mg PO DAILY@1700 [facility] Last Admin: 08/12/22 16:11 Dose: 15 mg Documented By: CECY Sodium Chloride (0.9 % Sodium Chloride Flush 3 Ml Syringe) 3 ml IVFLUSH QSHIFT [facility] Last Admin: 08/13/22 08:50 Dose: 3 ml Documented By: CECY Tamsulosin HCl (Tamsulosin Hcl 0.4 Mg Capsule) 0.4 mg PO DAILY [facility] Last Admin: 08/13/22 08:48 Dose: 0.4 mg Documented By: CECY Thiamine HCl (Thiamine Hcl 100 Mg Tablet) 100 mg PO DAILY [facility] Last Admin: 08/13/22 08:49 Dose: 100 mg Documented By: CECY Zolpidem Tartrate (Zolpidem Tartrate 5 Mg Tablet) 10 mg PO BEDTIME PRN PRN Reason: Insomnia Last Admin: 08/12/22 22:31 Dose: 10 mg Documented By: EWA Labs CBC & Chem 7: 08/08/22 09:04 08/13/22 05:14 Labs: Laboratory Results - last 24 hr 08/12/22 08/12/22 08/12/22 16:18 19:24 20:59 Estim Creat Clear Calc Estimated GFR POC Glucose 259 H 327 H Vancomycin Trough 3.5 L 08/13/22 08/13/22 08/13/22 05:14 08:40 11:12 Estim Creat Clear Calc 131.2 Estimated GFR > 60 POC Glucose 346 H 264 H Vancomycin Trough Procedures Date of Service Date of Service: 08/13/22 Progress Note: A&P Assessment and plan (1) Diabetic osteomyelitis: Status: Acute (2) Cellulitis and abscess of foot: Status: Acute Plan S/P amputation of 2nd toe. Wounds are clean, intact, with a small amount of serosanguineous discharge. No erythema is appreciated. Plan for home IV antibiotics as per Infectious Disease for 6 weeks. He will need visiting nurses for dressing changes on a daily basis. Current dressings include 4 x 4 gauze followed by ABD pad and Kerlix. He should follow up in the office in approximately 1 week for suture removal. Time Spent With Patient Time: Total time spent is greater than 50% in coordination of care (as documented) at patient's floor/unit and/or counseling patient: Quality Stroke Does the patient have a stroke diagnosis?: No VTE Prior VTE?: No VTE Risk Level:: Medical - moderate - high VTE Device Contraindication: Treatment Not Indicated VTE Drug Contraindication: N/A - Med Ordered
== END 2022-08-13 13:16 | disposition home health service (06) | DRG 349 ==
LOC: HO.ED 08-04 01:26 → HO.EDOVER 08-04 01:30 → HO.S3 08-04 07:26
PROVIDERS: Family Medicine; Internal Medicine; Nurse Practitioner Family; Physician Assistant Medical; Radiology Diagnostic Radiology; Surgery Vascular Surgery; Admitting Provider Internal Medicine; Emergency Provider Emergency Medicine; PCP Internal Medicine; Visit Provider Nurse Practitioner Acute Care
PROC: B41G0ZZ Fluoroscopy of Left Lower Extremity Arteries using High Osmolar Contrast (ICD-10-PCS; principal; 2022-08-08 12:00)
PROC: 05H533Z Insertion of Infusion Device into Right Subclavian Vein, Percutaneous Approach (ICD-10-PCS; principal; 2022-08-13 07:30)
DX: T87.44 Infection of amputation stump, left lower extremity (principal); M86.172 Other acute osteomyelitis, left ankle and foot; E11.69 Type 2 diabetes mellitus with other specified complication; E11.51 Type 2 diabetes mellitus with diabetic peripheral angiopathy without gangrene; L03.116 Cellulitis of left lower limb; L97.529 Non-pressure chronic ulcer of other part of left foot with unspecified severity; E11.65 Type 2 diabetes mellitus with hyperglycemia; D72.829 Elevated white blood cell count, unspecified; I48.0 Paroxysmal atrial fibrillation; I25.10 Atherosclerotic heart disease of native coronary artery without angina pectoris; I70.245 Atherosclerosis of native arteries of left leg with ulceration of other part of foot; E66.01 Morbid (severe) obesity due to excess calories; Z68.41 Body mass index [BMI] 40.0-44.9, adult; Z20.822 Contact with and (suspected) exposure to COVID-19; Z96.643 Presence of artificial hip joint, bilateral; Z87.891 Personal history of nicotine dependence; Z71.3 Dietary counseling and surveillance; Z23 Encounter for immunization; Z88.5 Allergy status to narcotic agent; Z79.4 Long term (current) use of insulin; Z79.01 Long term (current) use of anticoagulants; Z79.899 Other long term (current) drug therapy
CPT/HCPCS: 0241U; 36247; 36415; 36573; 73700; 73720; 75630; 76937; 80048; 80202; 82565; 82947; 83605; 85025; 85027; 85652; 86140; 87040; 90686; 93923; 93925; 99284; A9585; C1751; C1769; C1887; J1170; J1335; J1650; J2185; J2543; J3370

== ENCOUNTER 2022-08-27 15:45 | Outpatient (REF) | payer MEDICAID, SELFPAY ==
[2022-08-27 15:57] LABS: MANUAL DIFF FLAG NO
[2022-08-27 16:01] LABS: Basophils Absolute Auto 0.1 X10*3/uL (0.0-0.2); Basophils Percent Auto 0.7 % (0-2); Eosinophils Absolute Auto 0.2 X10*3/uL (0.0-0.4); Eosinophils Percent Auto 1.9 % (0-4); Hematocrit 35.2 % (42.0-52.0); Hemoglobin 11.3 g/dl (14.0-18.0); Imm Gran Abs Auto 0.03 X10*3/uL (0.00-0.03); Imm Gran Pct Auto 0.3 % (0.0-0.4); Lymphocytes Absolute Auto 2.6 X10*3/uL (1.2-4.9); Lymphocytes Percent Auto 29.4 % (20-40); Mean Corpuscular HGB Conc 32.1 g/dl (31.0-36.0); Mean Corpuscular Volume 87.3 fL (80.0-98.0); Mean Platelet Volume 10.1 fL (9.4-12.4); Monocytes Absolute Auto 0.6 X10*3/uL (0.1-1.2); Monocytes Percent Auto 6.9 % (2-11); Neutrophils Absolute Auto 5.3 x10*3/uL (2.0-8.3); Neutrophils Percent Auto 60.8 % (45-73); Platelet Count 268 X10*3/uL (160-400); Red Blood Count 4.03 X10*6/uL (4.60-5.80); Red Cell Distribution Width 13.2 % (11.0-16.0); White Blood Count 8.8 X10*3/uL (4.8-10.8)
[2022-08-27 16:27] LABS: Alanine Aminotransferase 10 U/L (0-40); Albumin Level 3.7 g/dL (3.5-5.0); Alkaline Phosphatase 89 U/L (39-117); Anion Gap 15 (12-20); Aspartate Amino Transferase 12 U/L (5-37); Bilirubin Direct 0.2 mg/dL (0.0-0.5); Bilirubin Total 0.3 mg/dL (0.0-1.0); Blood Urea Nitrogen 10 mg/dL (9-16); Calcium 8.9 mg/dL (8.4-10.2); Carbon Dioxide 23 mmol/L (22-29); Chloride 105 mmol/L (96-108); Estimated Glomerular Filt Rate > 60; Glucose Random 195 mg/dL (60-115); Potassium 4.4 mmol/L (3.3-5.1); Sodium 139 mmol/L (135-145); Total Protein 6.2 g/dL (6.5-8.0)
== END 2022-08-27 15:46 | disposition home or self-care (01) ==
LOC: HO.LAB 15:45
PROVIDERS: PCP Internal Medicine; Visit Provider Surgery
DX: L02.619 Cutaneous abscess of unspecified foot (principal); L03.119 Cellulitis of unspecified part of limb; E11.69 Type 2 diabetes mellitus with other specified complication; M86.9 Osteomyelitis, unspecified
CPT/HCPCS: 36415; 80053; 82248; 85025

== ENCOUNTER 2022-11-13 09:19 | Inpatient (IN) | payer MEDICAID, SELFPAY ==
[2022-11-13] VITALS (7 sets, daily range): BP systolic 121–166; BP diastolic 59–84; PULSE 84–110; RESP 12–20; TEMP 36.1–36.9; O2SAT 93–98; BMI 41.0
--- NOTE | ~2022-11-13 | CT_ITS ---
EXAMINATION: CT FACIAL BONES WITH CONTRAST CLINICAL INFORMATION: Left facial swelling. Evaluate for abscess. COMPARISON: None TECHNIQUE: Multidetector CT imaging examination of the face is performed with intravenous administration of 85 mL Omnipaque 350. This CT examination was performed using dose optimization techniques as appropriate, variously including the following: *Automated exposure control *Adjustment of mA and/or kV according to patient size (this includes techniques or standardized protocols for targeted exams where dose is matched to indication/reason for exam; i.e. extremities or head) *Use of iterative reconstruction technique DLP: 507 mGy-cm FINDINGS: There is edema of subcutaneous tissues of the left anterolateral face and scalp without fluid collection or soft tissue gas. The parotid and submandibular glands are unremarkable. No pathologic sized lymph nodes. Atherosclerotic calcification of carotid arteries and the atherosclerotic plaque causes moderate stenosis of the ICAs which are tortuous and have retropharyngeal course. The oropharyngeal structures are unremarkable. The parapharyngeal fat planes are maintained. No deep soft tissue abscess or mass. The globes and orbital orellana, including lamina papyracea, are intact. The orbital apex, optic canals, and retrobulbar fat planes are normal. The maxilla, mandible and temporomandibular joints are intact. Nasal bones, pterygoid plates and zygomatic arches are normal. The paranasal sinuses are well-aerated and the ostiomeatal units are patent. No air-fluid levels in the paranasal sinuses. The mastoid air cells are normal. The partially visualized brain has normal attenuation. CT/CT facial bones w IV con IMPRESSION: * No evidence of facial abscess. * The edema of subcutaneous tissues of the left face and scalp could be due to cellulitis. * No evidence of maxillofacial bone injury.
--- NOTE | 2022-11-13 09:44 | PC.NURSE ---
61 y/o M pw cellulitis to L ear, has worsened over past few days now with swelling to L eye and head. pt is aox3, calm and cooperative, VSS. awaiting md recs
--- NOTE | 2022-11-13 09:49 | ED_ITS ---
HPI - General Adult General Chief complaint: General Medical Stated complaint: L eye swelling/pain Time Seen by Provider: 11/13/22 09:38 Source: patient and old records reviewed History of Present Illness HPI narrative: Patient with a history of diabetes and foot amputation secondary to diabetic foot ulcer last year. Presents today with left-sided facial pain swelling. Now with periorbital swelling. No fevers or chills. He describes the pain as 10/10. No prior history of similar issues. He states it started with 2 pimples in his left temporal area near his ear. No right-sided symptoms. No history of shingles. No visual changes despite periorbital swelling. Related Data Home Medications Medication Instructions Recorded Confirmed ezetimibe 10 mg tablet 1 tab PO DAILY 01/03/22 11/13/22 gabapentin 300 mg capsule 1 cap PO TID 01/03/22 11/13/22 hydroxyzine HCl 10 mg tablet 1 tab PO QID PRN itch 01/03/22 11/13/22 insulin glargine 100 unit/mL 50 unit subcut BID 01/03/22 11/13/22 subcutaneous solution (Lantus U-100 Insulin) insulin lispro 100 unit/mL 30 unit subcut TIDAC 01/03/22 11/13/22 subcutaneous solution isosorbide mononitrate 30 mg 1 tab PO DAILY 01/03/22 11/13/22 tablet,extended release 24 hr loratadine 10 mg tablet 1 tab PO DAILY 01/03/22 11/13/22 losartan 25 mg tablet 1 tab PO DAILY 01/03/22 11/13/22 meclizine 25 mg tablet 1 tab PO TID PRN dizziness 01/03/22 11/13/22 metoprolol tartrate 25 mg tablet 1 tab PO BID 01/03/22 11/13/22 montelukast 10 mg tablet 1 tab PO BEDTIME 01/03/22 11/13/22 ondansetron HCl 4 mg tablet 1 tab PO TID PRN nausea 01/03/22 11/13/22 oxycodone 20 mg tablet,crush 1 tab PO BID PRN Severe Pain 01/03/22 11/13/22 resistant,extended release 12 hr (Scale Score 7-10) (OxyContin) oxycodone 5 mg tablet 2 tab PO Q4H 01/03/22 11/13/22 pantoprazole 40 mg tablet,delayed 1 tab PO BID@0630,1630 01/03/22 11/13/22 release quetiapine 25 mg tablet 0.5 tab PO BEDTIME 01/03/22 11/13/22 rosuvastatin 40 mg tablet 1 tab PO BEDTIME 01/03/22 11/13/22 thiamine HCl (vitamin B1) 100 mg 1 tab PO DAILY 01/03/22 11/13/22 tablet zolpidem 10 mg tablet 1 tab PO BEDTIME PRN insomnia 01/03/22 11/13/22 rivaroxaban 20 mg tablet (Xarelto) 1 tab PO DAILY@1700 07/23/22 11/13/22 aspirin 81 mg tablet,delayed 1 tab PO DAILY 08/04/22 11/13/22 release tamsulosin 0.4 mg capsule 1 cap PO DAILY 08/04/22 11/13/22 baclofen 10 mg tablet 1 tab PO TID 11/13/22 11/13/22 furosemide 20 mg tablet 1 tab PO DAILY 11/13/22 11/13/22 venlafaxine 100 mg tablet 1 tab PO BID 11/13/22 11/13/22 Previous Rx's Medication Instructions Recorded walker #1 ea 01/11/22 walker #1 ea 01/15/22 Band-Aid Gauze Pads 4 X 4 #25 ea 04/16/22 bandage (gauze bandage) elastic bandage 6 X 1.8 yard #6 ea 04/16/22 off loading boot (Aircast off #1 ea 04/16/22 loading boot) calcium alginate ag #5 ea 04/23/22 sterile gauze #40 ea 04/23/22 Allergies Allergy/AdvReac Type Severity Reaction Status Date / Time morphine AdvReac Intermediate Hallucinati Verified 11/13/22 09:24 ons Review of Systems Constitutional: Comments: No fevers or chills Cardiovascular: Comments: No chest pain Respiratory: Comments: No dyspnea Gastrointestinal: Comments: Patient describing nausea without vomiting. No abdominal pain Musculoskeletal: Comments: Left foot healing well postoperative Integumentary/Breasts: Comments: Left facial erythema and pain as noted Neurologic: Comments: No focal neurologic deficit Endocrine: Comments: Diabetic PMFSH Past Medical History Medical History Afib Amputation of left great toe Asthma CAD (coronary artery disease) Cellulitis Diabetes DMII (diabetes mellitus, type 2) FHx: bilateral hip replacements Hyperglycemia Hypertension Lower limb amputation, great toe Orthopedic hardware present PAD (peripheral artery disease) Surgical History H/O bilateral hip replacements History of amputation of great toe (01/07/22) History of amputation of toe (07/29/22) History of ankle surgery History of back surgery History of neck surgery S/P quadruple vessel bypass Family History Family History Other No family history of coronary artery disease Social History Social History Household Members: Spouse Household Members Other:: 3 Housing: Apartment Are you a primary housekeeper child care to a significant other at home: No Do you presently have visiting nurse or other home services: Yes Alcohol intake: never Patient Tobacco Use Status: Former Tobacco user Quit Date: 30 years ago Tobacco use type: Cigarette Second Hand Smoke Exposure: No Advance Directives: Yes Advance Directives Information Provided: Yes Advance Directives on File: No Advance Directives Date on File: 01/04/22 service: Yes Current occupational status: disabled Physical Exam ED Vital Signs: Vital Signs - 24 hr 11/13/22 09:24 11/13/22 12:14 11/13/22 13:51 Temperature 98 F 97.6 F Pulse Rate 110 H 102 H 95 Respiratory Rate 19 12 14 Blood Pressure 163/83 H 131/74 141/75 H Pulse Oximetry 98 96 93 Oxygen Delivery Method Room Air Room Air Room Air BMI result Body Mass Index 41.0 Const Other: Awake and alert. Moaning in the room. Appears uncomfortable. Mildly tachycardic but otherwise vital signs stable and afebrile HENIA Other: Erythema and induration to left side of face. There are 2 small scabs in his left temporal area just anterior to his ear. No purulent drainage at the moment. There is no fluctuance. I do not see any vesicular lesions at the moment. He has some periorbital swelling without significant erythema. He is tender along most of the left side of his face. Eyes Other: Pupils are equal round reactive to light. Extraocular muscles are intact. Conjunctiva normal bilaterally without injection. Neck Other: No meningismus or lymphadenopathy Resp Other: Clear and equal bilaterally without wheezes rales or rhonchi Cardio Other: Regular rate and rhythm without murmurs rubs or gallops Skin Other: As described above Neuro Other: Nonfocal neuro exam without facial droop Psych Other: Appears anxious Medications Administered Discontinued Medications Generic Name Dose Route Start Last Admin Trade Name Yajaira PRN Reason Stop Dose Admin Fluorescein Sodium 1 strip 11/13/22 09:51 11/13/22 10:38 Fluorescein Sodium Strip EYE-LEFT 11/13/22 09:52 1 strip ONCE ONE Administration Fluorescein Sodium 1 strip 11/13/22 14:27 11/13/22 14:34 Fluorescein Sodium Strip EYE-LEFT 11/13/22 14:28 1 strip ONCE ONE Administration Hydromorphone HCl 2 mg 11/13/22 09:48 11/13/22 10:37 Hydromorphone Hcl 2 Mg/Ml Vial IVPUSH 11/13/22 09:49 2 mg ONCE ONE Administration Protocol Hydromorphone HCl 2 mg 11/13/22 11:06 11/13/22 11:14 Hydromorphone Hcl 2 Mg/Ml Vial IVPUSH 11/13/22 11:07 2 mg ONCE ONE Administration Protocol Sodium Chloride 1,000 mls @ 999 mls/hr 11/13/22 09:45 11/13/22 11:31 Ns IV 11/13/22 10:45 Infused .Q1H1M WILLIAM Infusion Piperacillin Sod/Tazobactam 50 mls @ 100 mls/hr 11/13/22 10:01 11/13/22 11:00 Sod 3.375 gm/ Sodium Chloride IV 11/13/22 10:30 Infused ONCE ONE Infusion Vancomycin HCl 2,000 mg in 520 mls @ 260 mls/hr 11/13/22 10:01 11/13/22 14:35 Vancomycin/Ns IV 11/13/22 12:00 Infused ONCE ONE Infusion Acyclovir Sodium 900 mg/ 268 mls @ 268 mls/hr 11/13/22 10:01 11/13/22 12:14 Sodium Chloride IV 11/13/22 11:00 Infused ONCE ONE Infusion Insulin Human Regular 5 unit 11/13/22 11:06 11/13/22 11:12 Insulin Regular, Human 100 Unit/Ml 3 Ml Vial IVPUSH 11/13/22 11:07 5 unit ONCE ONE Administration Iohexol 100 ml 11/13/22 11:39 11/13/22 11:40 Iohexol 350 Mg/Ml 100 Ml Infus..Btl IV 11/13/22 11:40 85 ml ONCE ONE Administration Ondansetron HCl 4 mg 11/13/22 09:51 11/13/22 10:38 Ondansetron Hcl 4 Mg/2 Ml Vial IVPUSH 11/13/22 09:52 4 mg ONCE ONE Administration Tetracaine HCl 3 drop 11/13/22 14:27 11/13/22 14:34 Tetracaine Hcl/Pf 0.5% Oph Leora 4 Ml Drops EYE-LEFT 11/13/22 14:28 3 drop ONCE ONE Administration Medical Decision Making Medical Decision Making MDM Narrative: Differential includes facial cellulitis. Abscess possible but not palpable. Fifth cranial nerve distribution shingles is possible although there is no vesicles at the moment. The 2 areas of scab could certainly have been scabbed over vesicles. Will treat for bacterial infection as well as viral infection. Will fluorescein stain I did look for potential ferning. There are no lesions on the nose however. Given diabetes and distribution of probable cellulitis, anticipate hospitalization. 12:47. Workup in the emergency department shows mildly elevated white count 12.8. His lactic acid is normal. He shows no evidence for sepsis at the moment. He has required multiple doses of IV opioids for pain control. He is also at risk for severe infection given diabetes and past history of amputation. Given multiple issues, will hospitalized for continued IV antibiotics and antivirals until cultures are back. Will also likely need continued IV pain control. 14:36. Fluorescene exam of eye shows no obvious lesions. No dendritic lesions or corneal abrasions. Lab Data 11/13/22 10:29 11/13/22 10:29 Labs: Lab Results 11/13/22 11/13/22 11/13/22 Range/Units 10:24 10:25 10:29 WBC 12.8 H (4.8-10.8) X10*3/uL RBC 4.65 (4.60-5.80) X10*6/uL Hgb 13.3 L (14.0-18.0) g/dl Hct 38.4 L (42.0-52.0) % MCV 82.6 (80.0-98.0) fL MCH 28.6 (27.0-33.0) pg MCHC 34.6 (31.0-36.0) g/dl RDW 13.7 (11.0-16.0) % Plt Count 300 (160-400) X10*3/uL MPV 9.8 (9.4-12.4) fL Immature Gran % (Auto) 0.4 (0.0-0.4) % Neut % (Auto) 77.9 H (45-73) % Lymph % (Auto) 13.8 L (20-40) % [place] % (Auto) 7.4 (2-11) % Eos % (Auto) 0.2 (0-4) % Baso % (Auto) 0.3 (0-2) % Lymph # (Auto) 1.8 (1.2-4.9) X10*3/uL [place] # (Auto) 1.0 (0.1-1.2) X10*3/uL Eos # (Auto) 0.0 (0.0-0.4) X10*3/uL Baso # (Auto) 0.0 (0.0-0.2) X10*3/uL Abs Immat Gran (auto) 0.05 H (0.00-0.03) X10*3/uL Absolute Neuts (auto) 10.0 H (2.0-8.3) x10*3/uL Absolute Nucleated RBC 0.000 (0.0-0.012) X10*3/uL Nucleated RBC % (auto) 0.0 (0.0-0.2) /100WBC Sodium (135-145) mmol/L Potassium (3.3-5.1) mmol/L Chloride (96-108) mmol/L Carbon Dioxide (22-29) mmol/L Anion Gap (12-20) BUN (9-16) mg/dL Creatinine (0.5-1.4) mg/dL Estim Creat Clear Calc Estimated GFR Random Glucose (60-115) mg/dL Lactic Acid 1.7 (0.5-2.0) mmol/L Calcium (8.4-10.2) mg/dL Total Bilirubin (0.0-1.0) mg/dL AST (5-37) U/L ALT (0-40) U/L Alkaline Phosphatase (39-117) U/L Total Protein (6.5-8.0) g/dL Albumin (3.5-5.0) g/dL COVID-19 ([facility]) Negative (Negative) COVID-19 Clin Com See Note 11/13/22 Range/Units 10:29 WBC (4.8-10.8) X10*3/uL RBC (4.60-5.80) X10*6/uL Hgb (14.0-18.0) g/dl Hct (42.0-52.0) % MCV (80.0-98.0) fL MCH (27.0-33.0) pg MCHC (31.0-36.0) g/dl RDW (11.0-16.0) % Plt Count (160-400) X10*3/uL MPV (9.4-12.4) fL Immature Gran % (Auto) (0.0-0.4) % Neut % (Auto) (45-73) % Lymph % (Auto) (20-40) % [place] % (Auto) (2-11) % Eos % (Auto) (0-4) % Baso % (Auto) (0-2) % Lymph # (Auto) (1.2-4.9) X10*3/uL [place] # (Auto) (0.1-1.2) X10*3/uL Eos # (Auto) (0.0-0.4) X10*3/uL Baso # (Auto) (0.0-0.2) X10*3/uL Abs Immat Gran (auto) (0.00-0.03) X10*3/uL Absolute Neuts (auto) (2.0-8.3) x10*3/uL Absolute Nucleated RBC (0.0-0.012) X10*3/uL Nucleated RBC % (auto) (0.0-0.2) /100WBC Sodium 135 (135-145) mmol/L Potassium 4.0 (3.3-5.1) mmol/L Chloride 103 (96-108) mmol/L Carbon Dioxide 21 L (22-29) mmol/L Anion Gap 15 (12-20) BUN 8 L (9-16) mg/dL Creatinine 0.90 (0.5-1.4) mg/dL Estim Creat Clear Calc 109.7 Estimated GFR > 60 Random Glucose 379 H* (60-115) mg/dL Lactic Acid (0.5-2.0) mmol/L Calcium 9.0 (8.4-10.2) mg/dL Total Bilirubin 0.7 (0.0-1.0) mg/dL AST 9 (5-37) U/L ALT 7 (0-40) U/L Alkaline Phosphatase 98 (39-117) U/L Total Protein 6.6 (6.5-8.0) g/dL Albumin 3.9 (3.5-5.0) g/dL COVID-19 ([facility]) (Negative) COVID-19 Clin Com Discharge Plan Discharge Clinical Impression: Cellulitis of face, Diabetes Patient Disposition: Admitted As Inpatient
[2022-11-13 10:37] LABS: MANUAL DIFF FLAG NO
[2022-11-13] MEDS: 0.9 % Sodium Chloride 1,000 ML 999 ML IV (10:37)
[2022-11-13] MEDS: HYDROmorphone HCl 2 MG/ML VIAL IVPUSH ×2 (10:37→11:14)
[2022-11-13] MEDS: Piperacillin Sodium/Tazobactam 3.375 GM in 0.9 % Sodium Chloride 50 ML IV (10:38)
[2022-11-13] MEDS: ondansetron HCL 4 MG/2 ML VIAL IVPUSH (10:38)
[2022-11-13] MEDS: Fluorescein Sodium STRIP 1 STRIP EYE-LEFT ×2 (10:38→14:34)
[2022-11-13 10:39] LABS: Basophils Percent Auto 0.3 % (0-2); Eosinophils Percent Auto 0.2 % (0-4); Hematocrit 38.4 % (42.0-52.0); Hemoglobin 13.3 g/dl (14.0-18.0); Imm Gran Abs Auto 0.05 X10*3/uL (0.00-0.03); Imm Gran Pct Auto 0.4 % (0.0-0.4); Lymphocytes Absolute Auto 1.8 X10*3/uL (1.2-4.9); Lymphocytes Percent Auto 13.8 % (20-40); Mean Corpuscular HGB Conc 34.6 g/dl (31.0-36.0); Mean Corpuscular Hemoglobin 28.6 pg (27.0-33.0); Mean Corpuscular Volume 82.6 fL (80.0-98.0); Mean Platelet Volume 9.8 fL (9.4-12.4); Monocytes Percent Auto 7.4 % (2-11); Neutrophils Percent Auto 77.9 % (45-73); Platelet Count 300 X10*3/uL (160-400); Red Blood Count 4.65 X10*6/uL (4.60-5.80); Red Cell Distribution Width 13.7 % (11.0-16.0); White Blood Count 12.8 X10*3/uL (4.8-10.8)
[2022-11-13 10:49] LABS: Lactic Acid 1.7 mmol/L (0.5-2.0)
[2022-11-13 10:55] LABS: IDNOW Serial# BCCEAD1C
[2022-11-13 10:56] LABS: COVID-19 Test Negative (Negative)
[2022-11-13 11:00] LABS: Alanine Aminotransferase 7 U/L (0-40); Albumin Level 3.9 g/dL (3.5-5.0); Alkaline Phosphatase 98 U/L (39-117); Anion Gap 15 (12-20); Aspartate Amino Transferase 9 U/L (5-37); Bilirubin Total 0.7 mg/dL (0.0-1.0); Blood Urea Nitrogen 8 mg/dL (9-16); Carbon Dioxide 21 mmol/L (22-29); Chloride 103 mmol/L (96-108); Creatinine Clr Calc Pharmacy 109.7; Estimated Glomerular Filt Rate > 60; Glucose Random 379 mg/dL (60-115); Sodium 135 mmol/L (135-145); Total Protein 6.6 g/dL (6.5-8.0)
[2022-11-13] MEDS: Insulin Regular, Human 100 UNIT/ML 3 ML VIAL IVPUSH (11:12)
[2022-11-13] MEDS: iohexoL 350 MG/ML 100 ML INFUS..BTL IV (11:40)
--- NOTE | 2022-11-13 14:28 | PHA.MEDREC ---
Pharmacy Consult ? Medication Reconciliation Pharmacy has completed the medication reconciliation. Spoke to patient's and called pharmacy to confirm.
[2022-11-13] MEDS: Tetracaine HCl/PF 0.5% Oph Sol 4 ML DROPS 3 DROP EYE-LEFT (14:34)
--- NOTE | 2022-11-13 15:05 | PM.IMHP ---
History of Present Illness Date of Service: 11/13/22 Attending physician on admission: Mk Hardwick Chief Complaint: facial redness and pain 61-year-old male with history of paroxysmal atrial fibrillation anticoagulated with Xarelto, mild intermittent asthma, insulin-dependent type 2 diabetes with hyperglycemia, peripheral artery disease with recent admission in 06/17 for osteomyelitis s/p amputation of the left great toe, hypertension, and coronary artery disease s/p quadruple bypass in 2018 presented to the ED earlier today for evaluation of pain, redness, and rash on the left side of the face. He states about 4 days ago he developed ?whiteheads ?in the pre-auricular area that ruptured followed by increased swelling and redness on the left side of the face/preauricular area. Today, he woke up with significant swelling around the left eye and severe pain on the left side of the face/scalp. He denies any fevers, chills, diplopia, blurred vision, light sensitivity, purulent drainage from lesions, abdominal pain, nausea, vomiting, shortness of breath, chest pain. He denies any history of shingles but states he did receive the Shingrix vaccines. On arrival, patient afebrile. Mild tachycardia to 118, improved to 95. Leukocytosis of 12.8. Renal function and electrolyte levels normal. Glucose 379. Lactic acid 1.7. Herpes simplex culture and serum antibody testing pending. CT of the facial bones with IV contrast is without evidence of any facial abscess does show edema the subcutaneous tissues of left face and scalp likely related to cellulitis and no evidence of maxillofacial bone injury. Fluorescein stain left eye with observation using Wood's lamp did not reveal any dendritic lesions. In the ED, patient treated with manage mg acyclovir, vancomycin, Zosyn, 5 units insulin, hydromorphone, and ondansetron. Patient to be admitted for further management facial cellulitis with question of herpes zoster. Review of Systems Review of Systems: General: No fevers, malaise, unintentional weight loss HEENT: No blurred vision, diplopia, photophobia Cardiovascular: No chest pain, palpitations, or leg edema Respiratory: No shortness of breath, wheezing, cough GI: No abdominal pain, nausea, vomiting, diarrhea, constipation, melena, hematochezia : No dysuria, hematuria, increased urinary frequency, decreased urinary output MSK: No myalgia, back pain Neuro: No headaches, weakness, paresthesias Skin: +Rash left face with erythema/pain PMFSH Medical History Afib Amputation of left great toe Asthma CAD (coronary artery disease) Cellulitis Diabetes DMII (diabetes mellitus, type 2) FHx: bilateral hip replacements Hyperglycemia Hypertension Lower limb amputation, great toe Orthopedic hardware present PAD (peripheral artery disease) Family History Other No family history of coronary artery disease Surgical History H/O bilateral hip replacements History of amputation of great toe (01/07/22) History of amputation of toe (07/29/22) History of ankle surgery History of back surgery History of neck surgery S/P quadruple vessel bypass Social History (Updated 11/13/22 @ 15:40 by PERRY Hurley) Household Members: Spouse Household Members Other:: 3 Housing: Apartment Are you a primary administrator health care facility to a significant other at home: No Do you presently have visiting nurse or other home services: Yes Alcohol intake: never Patient Tobacco Use Status: Former Tobacco user Quit Date: 30 years ago Tobacco use type: Cigarette Second Hand Smoke Exposure: No Use of substances other than those prescribed or required for medical reasons: No Advance Directives: Yes Advance Directives Information Provided: Yes Advance Directives on File: No Advance Directives Date on File: 01/04/22 Nutrition Risks: No Nutritional Risk service: Yes Current occupational status: disabled Meds Allergies Allergy/AdvReac Type Severity Reaction Status Date / Time morphine AdvReac Intermediate Hallucinati Verified 11/13/22 09:24 ons Active Medications: Current Medications Acetaminophen (Acetaminophen 325 Mg Tablet) 650 mg PO Q6H PRN PRN Reason: Pain, Mild (Pain Scale 1-3) Dextrose (Dextrose 50 % 25 Gm/50 Ml Syringe) 25 gm IVPUSH Q15M PRN; Protocol PRN Reason: per Hypoglycemia Standing Ord. Docusate Sodium (Docusate Sodium 100 Mg Capsule) 100 mg PO BID PRN PRN Reason: Constipation Glucose (Glucose Gel 15 Gm Gel..Gram.) 15 gm PO Q15M PRN; Protocol PRN Reason: per Hypoglycemia Standing Ord. Hydromorphone HCl (Hydromorphone Hcl 0.5 Mg/0.5 Ml Syringe) 0.25 mg IVPUSH Q4H PRN; Protocol PRN Reason: Pain, Severe (Pain Scale 7-10) Cefepime HCl 2 gm/ Sodium (Chloride) 50 mls @ 100 mls/hr IV Q8H [facility] Insulin Human Lispro (Insulin Lispro 100 Unit/Ml 3 Ml Vial) 0 unit SUBCUT QIDACHS [facility]; Protocol Ondansetron HCl (Ondansetron Hcl 4 Mg/2 Ml Vial) 4 mg IVPUSH Q8H PRN PRN Reason: Nausea and Vomiting Oxycodone HCl (Oxycodone Hcl Immed Release 5 Mg Tablet) 5 mg PO Q6H PRN PRN Reason: Pain, Moderate (Pain Scale 4-6 Pharmacy Consult (Consult Rx Vancomycin Dosing) 1 each MISCELLANE DAILY PRN PRN Reason: Consult order Sodium Chloride (0.9 % Sodium Chloride Flush 3 Ml Syringe) [facility] Valacyclovir HCl (Valacyclovir Hcl 1,000 Mg Tablet) 1,000 mg PO Q8H [facility] Stop: 11/20/22 07:01 Home Medications Medication Instructions Recorded Confirmed Last Taken Type ezetimibe 10 mg tablet 1 tab PO DAILY 01/03/22 11/13/22 11/12/22 09:00 History gabapentin 300 mg capsule 1 cap PO TID 01/03/22 11/13/22 11/12/22 09:00 History hydroxyzine HCl 10 mg tablet 1 tab PO QID PRN itch 01/03/22 11/13/22 08/02/22 History insulin glargine 100 unit/mL 50 unit subcut BID 01/03/22 11/13/22 11/12/22 09:00 History subcutaneous solution (Lantus U-100 Insulin) insulin lispro 100 unit/mL 30 unit subcut TIDAC 01/03/22 11/13/22 11/12/22 09:00 History subcutaneous solution isosorbide mononitrate 30 mg 1 tab PO DAILY 01/03/22 11/13/22 11/12/22 09:00 History tablet,extended release 24 hr loratadine 10 mg tablet 1 tab PO DAILY 01/03/22 11/13/22 11/12/22 09:00 History losartan 25 mg tablet 1 tab PO DAILY 01/03/22 11/13/22 11/12/22 09:00 History meclizine 25 mg tablet 1 tab PO TID PRN dizziness 01/03/22 11/13/22 08/02/22 History metoprolol tartrate 25 mg tablet 1 tab PO BID 01/03/22 11/13/22 11/12/22 09:00 History montelukast 10 mg tablet 1 tab PO BEDTIME 01/03/22 11/13/22 11/11/22 History ondansetron HCl 4 mg tablet 1 tab PO TID PRN nausea 01/03/22 11/13/22 08/02/22 History oxycodone 20 mg tablet,crush 1 tab PO BID PRN Severe Pain 01/03/22 11/13/22 11/12/22 09:00 History resistant,extended release 12 hr (Scale Score 7-10) (OxyContin) oxycodone 5 mg tablet 2 tab PO Q4H 01/03/22 11/13/22 11/12/22 09:00 History pantoprazole 40 mg tablet,delayed 1 tab PO BID@0630,1630 01/03/22 11/13/22 11/12/22 09:00 History release quetiapine 25 mg tablet 0.5 tab PO BEDTIME 01/03/22 11/13/22 11/11/22 History rosuvastatin 40 mg tablet 1 tab PO BEDTIME 01/03/22 11/13/22 11/11/22 History thiamine HCl (vitamin B1) 100 mg 1 tab PO DAILY 01/03/22 11/13/22 11/12/22 09:00 History tablet zolpidem 10 mg tablet 1 tab PO BEDTIME PRN insomnia 01/03/22 11/13/22 08/02/22 History rivaroxaban 20 mg tablet (Xarelto) 1 tab PO DAILY@1700 07/23/22 11/13/22 11/11/22 History aspirin 81 mg tablet,delayed 1 tab PO DAILY 08/04/22 11/13/22 11/12/22 09:00 History release tamsulosin 0.4 mg capsule 1 cap PO DAILY 08/04/22 11/13/22 11/12/22 09:00 History baclofen 10 mg tablet 1 tab PO TID 11/13/22 11/13/22 11/12/22 09:00 History furosemide 20 mg tablet 1 tab PO DAILY 11/13/22 11/13/22 11/12/22 09:00 History venlafaxine 100 mg tablet 1 tab PO BID 11/13/22 11/13/22 11/12/22 09:00 History Physical Exam Vital Signs and Narrative: Vital Signs: Last Vital Signs Temp 97.6 F 11/13/22 13:51 Pulse 95 11/13/22 13:51 Resp 14 11/13/22 13:51 BP 141/75 H 11/13/22 13:51 Pulse Ox 93 11/13/22 13:51 O2 Del Method 11/13/22 13:51 BMI result Body Mass Index 41.0 Constitutional - Awake and Alert, No apparent distress Eyes - PERRLA, EOMI. No corneal abrasions or dendritic lesions under Aguilar lamp exam. Cardiovascular - S1S2, RRR, No edema Respiratory - Normal lung expansion, Normal respiratory effort, No respiratory distress, CTA bilaterally Gastrointestinal - NT / ND; +BS; No rebound or guarding Extremities - no calf tenderness bilaterally, no swelling Musculoskeletal - Normal inspection, normal ROM Skin - Warm/Dry. Erythema/edema/induration and 2 scabbed lesion in left preauricular area without obvious vesicular lesions in the preauricular area or in the V1 distribution of face with ttp left side of face and scalp. No fluctuance. Periorbital swelling of left eye including upper and lower lid without erythema or ttp Neurological - Alert & oriented x3, CN II-XII in tact, 5/5 strength BUE and BLE Psychological - Appropriate affect Results Labs 11/13/22 10:29 11/13/22 10:29 Labs: Laboratory Results - last 24 hr 11/13/22 11/13/22 11/13/22 10:24 10:25 10:29 MCV 82.6 MCH 28.6 MCHC 34.6 RDW 13.7 Plt Count 300 MPV 9.8 Immature Gran % (Auto) 0.4 Neut % (Auto) 77.9 H Lymph % (Auto) 13.[address] [place] % (Auto) 7.4 Eos % (Auto) 0.2 Baso % (Auto) 0.3 Lymph # (Auto) 1.8 [place] # (Auto) 1.0 Eos # (Auto) 0.0 Baso # (Auto) 0.0 Abs Immat Gran (auto) 0.05 H Absolute Neuts (auto) 10.0 H Absolute Nucleated RBC 0.000 Nucleated RBC % (auto) 0.0 Anion Gap Estim Creat Clear Calc Estimated GFR Random Glucose Lactic Acid 1.7 Calcium Total Bilirubin AST ALT Alkaline Phosphatase Total Protein Albumin COVID-19 ([facility]) Negative COVID-19 Clin Com See Note 11/13/22 10:29 MCV MCH MCHC RDW Plt Count MPV Immature Gran % (Auto) Neut % (Auto) Lymph % (Auto) [place] % (Auto) Eos % (Auto) Baso % (Auto) Lymph # (Auto) [place] # (Auto) Eos # (Auto) Baso # (Auto) Abs Immat Gran (auto) Absolute Neuts (auto) Absolute Nucleated RBC Nucleated RBC % (auto) Anion Gap 15 Estim Creat Clear Calc 109.7 Estimated GFR > 60 Random Glucose 379 H* Lactic Acid Calcium 9.0 Total Bilirubin 0.7 AST 9 ALT 7 Alkaline Phosphatase 98 Total Protein 6.6 Albumin 3.9 COVID-19 ([facility]) COVID-19 Clin Com Imaging Radiologist's Impressions: Impressions Face CT 11/13/22 11:40 IMPRESSION: * No evidence of facial abscess. * The edema of subcutaneous tissues of the left face and scalp could be due to cellulitis. * No evidence of maxillofacial bone injury. Assessment and Plan (1) Cellulitis of face: Status: Acute Plan 61-year-old male with history of paroxysmal atrial fibrillation anticoagulated with Xarelto, mild intermittent asthma, insulin-dependent type 2 diabetes with hyperglycemia, peripheral artery disease with recent admission in 06/17 for osteomyelitis s/p amputation of the left great toe, hypertension, and coronary artery disease s/p quadruple bypass in 2018 admitted for left face/preseptal cellulitis with question of herpes zoster. #Left facial cellulitis/Preseptal cellulitis -CT of the facial bones with IV contrast is without evidence of any facial abscess does show edema the subcutaneous tissues of left face and scalp likely related to cellulitis and no evidence of maxillofacial bone injury. -No ocular pain, visual changes, proptosis, chemosis, EOMI in tact. Orbital cellulitis unlikely -Mild leukocytosis 12.8, follow CBC -IV cefepime and vanco -Pain management using oxycodone, hydromorphone on pain scale -ID consulted #?Localized herpes zoster -No vesicular lesions on exams and lesions erupted prior to onset of pain. given pain distribution and scabbed lesions (V3 dermatome), cannot rule out HZ -No dendtritic lesions noted under Aguilar lamp -Valtrex 1g TID -Herpes culture and serum ab studies pending -ID consult -Pain management as above -Contact precautions until ruled in/out # insulin-dependent type 2 diabetes with hyperglycemia -POC glucose -Diabetic diet -dose adjusted Lantus -Humalog 5 units q.i.d. a.c. standing and sliding scale with meals # paroxysmal atrial fibrillation-rate controlled -continue Xarelto for anticoagulation -continue rate control # hypertension-reasonably controlled -continue home meds # CAD/hyperlipidemia-no anginal chest pain -continue statin, beta-dylon, baby aspirin, isosorbide -BPH -continue Flomax # chronic low back pain -continue baclofen and gabapentin DVT prophylaxis-on Xarelto Full code Patient requires inpatient stay of at least 2 midnights for management of left-sided facial/preseptal cellulitis with question herpes zoster requiring IV antibiotics and expert consultation given distribution of cellulitis/edema Time Spent With Patient Time: Total time managing care of this patient today ____ minutes. Quality Stroke Does the patient have a stroke diagnosis?: No VTE Prior VTE?: No VTE Risk Level:: Medical - moderate - high VTE Device Contraindication: Treatment Not Indicated VTE Drug Contraindication: N/A - Med Ordered
--- NOTE | 2022-11-13 15:13 | PHA.PROG ---
Admission Date/Time: November 13, 2022 14:38 Indication: skin Weight in k.47 kg Adjusted body weight in Kg: [place] body weight in Kg: Obesity Dosing Indication % IBW: obese model Serum Creatinine - Last 168 Hours 11/13/22 10:29 Creatinine 0.90 Estimated CrCl and GFR - Last 168 Hours 11/13/22 10:29 Estim Creat Clear Calc 109.7 Estimated GFR > 60 Vancomycin Loading Dose: 2000mg X 1 Current Vancomycin Dosing Regimen: 1000mg Q12H Vancomycin Monitoring using AUC goal of 400 - 600 range with trough as surrogate marker: 490mg/L Date and Time for next Vancomycin Level to be drawn: 11/14/22 @2100 Pharmacist Comments on Vancomycin Plan: obese model being used; will continue to monitor renal function Vancomycin dosing will take advantage of [employer] as a clinical decision support tool that uses Bayesian modeling to calculate individual patient's pharmacokinetic parameters and forecast the patient's drug concentration time course with the target goal AUC 24 range of 400 - 600 mg/L/hr.
[2022-11-13] MEDS: Gabapentin 300 MG CAPSULE PO ×2 (15:51→22:09)
[2022-11-13] MEDS: Acetaminophen 325 MG TABLET 650 MG PO (15:51)
[2022-11-13] MEDS: oxyCODONE HCl Immed Release 5 MG TABLET PO (15:51)
[2022-11-13] MEDS: Rivaroxaban 20 MG TABLET PO (15:51)
[2022-11-13] MEDS: Omeprazole 20 MG CAPSULE.DR PO (15:51)
[2022-11-13] MEDS: HYDROmorphone HCl 0.5 MG/0.5 ML SYRINGE IVPUSH ×4 (15:52→23:17)
[2022-11-13] MEDS: Baclofen 10 MG TABLET PO ×2 (15:52→22:09)
[2022-11-13] MEDS: valACYclovir HCL 1,000 MG TABLET 1000 MG PO ×2 (15:52→22:10)
[2022-11-13] MEDS: cefEPime HCl 2 GM in 0.9 % Sodium Chloride 50 ML IV ×2 (15:52→22:17)
[2022-11-13 16:34] LABS: Glucose, Whole Blood 265 mg/dL (60-115)
[2022-11-13] MEDS: Insulin Lispro 100 UNIT/ML 3 ML VIAL SUBCUT ×4 (16:41→22:10)
--- NOTE | 2022-11-13 16:43 | PC.NURSE ---
patient in extreme pain, PA made aware, plan to reassess pain regiment
[2022-11-13 18:47] LABS: Glucose, Whole Blood 215 mg/dL (60-115)
[2022-11-13] MEDS: 0.9 % Sodium Chloride Flush 3 ML SYRINGE IVFLUSH ×2 (20:05→23:17)
[2022-11-13 20:22] LABS: Glucose, Whole Blood 236 mg/dL (60-115)
[2022-11-13] MEDS: QUEtiapine Fumarate 25 MG TABLET 12.5 MG PO (22:09)
[2022-11-13] MEDS: Atorvastatin Calcium 80 MG TABLET PO (22:09)
[2022-11-13] MEDS: Zolpidem Tartrate 5 MG TABLET 10 MG PO (22:09)
[2022-11-13] MEDS: oxyCODONE HCl ER 10 MG TAB.ER.12H 20 MG PO (22:09)
[2022-11-13] MEDS: Venlafaxine HCL 25 MG TABLET 100 MG PO (22:09)
[2022-11-13] MEDS: Metoprolol Tartrate 25 MG TABLET PO (22:10)
[2022-11-13] MEDS: Montelukast Sodium 10 MG TABLET PO (22:10)
[2022-11-13] MEDS: Insulin Glargine,Hum.rec.anlog 100 UNIT/ML 10 ML VIAL 38 UNIT SUBCUT (22:10)
[2022-11-13] MEDS: hydrOXYzine HCL 10 MG TABLET PO (22:10)
[2022-11-13] MEDS: vancomycin HCL 1,000 MG in 0.9 % Sodium Chloride 250 ML 270 MG IV (23:16)
--- NOTE | 2022-11-13 23:28 | W.PM.IDCN ---
History of Present Illness Data of Consult Service Date: 11/13/22 Requesting physician: Meg Ordoñez Primary Care Provider: MD COLTEN Mcintosh Reason for consult: left facial redness He presents with worsening pain left ear pinna and face spreading to left eye for two days. He feels feverish. He has no hearing problems. Review of Systems Review of Systems: Yes all other systems are reviewed and are negative [facility] Past Medical History Medical History Afib Amputation of left great toe Asthma CAD (coronary artery disease) Cellulitis Diabetes DMII (diabetes mellitus, type 2) FHx: bilateral hip replacements Hyperglycemia Hypertension Lower limb amputation, great toe Orthopedic hardware present PAD (peripheral artery disease) Family History Family History Other No family history of coronary artery disease Family history: reviewed and not pertinent Surgical History Surgical History H/O bilateral hip replacements History of amputation of great toe (01/07/22) History of amputation of toe (07/29/22) History of ankle surgery History of back surgery History of neck surgery S/P quadruple vessel bypass Social History Social History Household Members: Family Household Members Other:: 3 Housing: Apartment Are you a primary healthcare administration internship to a significant other at home: No Do you presently have visiting nurse or other home services: No Alcohol intake: never Patient Tobacco Use Status: Former Tobacco user Quit Date: 30 years ago Tobacco use type: Cigarette Second Hand Smoke Exposure: No Use of substances other than those prescribed or required for medical reasons: No Currently Displaying Signs/Symptoms of Drug Intoxication Withdrawal: No Any prior treatment program specific to substance use: No Have you been hit, kicked, punched, or otherwise hurt by someone within the past year? If so, by whom?: No Do you feel safe in your current relationship?: No Is there a partner from a previous relationship who is making you feel unsafe now?: No Are you made to feel afraid or neglected: No Advance Directives: Yes Advance Directives Information Provided: Yes Advance Directives on File: No Advance Directives Date on File: 01/04/22 Do you have thoughts of harming others: None Do you have a plan to hurt others: No Plan Nutrition Risks: No Nutritional Risk service: Yes Current occupational status: disabled Meds Allergies Allergy/AdvReac Type Severity Reaction Status Date / Time morphine AdvReac Intermediate Hallucinati Verified 11/13/22 09:24 ons Active Medications: Current Medications Acetaminophen (Acetaminophen 325 Mg Tablet) 650 mg PO Q6H PRN PRN Reason: Pain, Mild (Pain Scale 1-3) Last Admin: 11/13/22 15:51 Dose: 650 mg Aspirin (Aspirin Enteric Coated 81 Mg Tablet.Dr) 81 mg PO DAILY [facility] Atorvastatin Calcium (Atorvastatin Calcium 80 Mg Tablet) 80 mg PO BEDTIME [facility] Last Admin: 11/13/22 22:09 Dose: 80 mg Baclofen (Baclofen 10 Mg Tablet) 10 mg PO TID [facility] Last Admin: 11/13/22 22:09 Dose: 10 mg Dextrose (Dextrose 50 % 25 Gm/50 Ml Syringe) 25 gm IVPUSH Q15M PRN; Protocol PRN Reason: per Hypoglycemia Standing Ord. Docusate Sodium (Docusate Sodium 100 Mg Capsule) 100 mg PO BID PRN PRN Reason: Constipation Ezetimibe (Ezetimibe 10 Mg Tablet) 10 mg PO DAILY [facility] Furosemide (Furosemide 20 Mg Tablet) 20 mg PO DAILY [facility]; Protocol Gabapentin (Gabapentin 300 Mg Capsule) 300 mg PO TID [facility] Last Admin: 11/13/22 22:09 Dose: 300 mg Glucose (Glucose Gel 15 Gm Gel..Gram.) 15 gm PO Q15M PRN; Protocol PRN Reason: per Hypoglycemia Standing Ord. Hydromorphone HCl (Hydromorphone Hcl 0.5 Mg/0.5 Ml Syringe) 0.5 mg IVPUSH Q3H PRN; Protocol PRN Reason: Pain, Severe (Pain Scale 7-10) Last Admin: 11/13/22 23:17 Dose: 0.5 mg Hydroxyzine HCl (Hydroxyzine Hcl 10 Mg Tablet) 10 mg PO QID PRN PRN Reason: itch Last Admin: 11/13/22 22:10 Dose: 10 mg Cefepime HCl 2 gm/ Sodium (Chloride) 50 mls @ 100 mls/hr IV Q8H [facility] Last Infusion: 11/13/22 23:22 Dose: Infused Vancomycin HCl 1,000 mg/ (Sodium Chloride) 270 mls @ 270 mls/hr IV Q12H [facility] Last Admin: 11/13/22 23:16 Dose: 270 mls/hr Insulin Glargine (Insulin Glargine,Hum.Rec.Anlog 100 Unit/Ml 10 Ml Vial) 38 unit SUBCUT BID [facility] Last Admin: 11/13/22 22:10 Dose: 38 unit Insulin Human Lispro (Insulin Lispro 100 Unit/Ml 3 Ml Vial) 0 unit SUBCUT QIDACHS [facility]; Protocol Last Admin: 11/13/22 22:10 Dose: 6 unit Insulin Human Lispro (Insulin Lispro 100 Unit/Ml 3 Ml Vial) 5 unit SUBCUT QIDACHS [facility] Last Admin: 11/13/22 22:10 Dose: 5 unit Isosorbide Mononitrate (Isosorbide Mononitrate 30 Mg Tab.Er.24h) 30 mg PO DAILY [facility]; Protocol Loratadine (Loratadine 10 Mg Tablet) 10 mg PO DAILY [facility] Losartan Potassium (Losartan Potassium 25 Mg Tablet) 25 mg PO DAILY [facility]; Protocol Meclizine HCl (Meclizine Hcl 25 Mg Tablet) 25 mg PO TID PRN PRN Reason: dizziness Metoprolol Tartrate (Metoprolol Tartrate 25 Mg Tablet) 25 mg PO BID [facility]; Protocol Last Admin: 11/13/22 22:10 Dose: 25 mg Montelukast Sodium (Montelukast Sodium 10 Mg Tablet) 10 mg PO BEDTIME [facility] Last Admin: 11/13/22 22:10 Dose: 10 mg Omeprazole (Omeprazole 20 Mg Capsule.Dr) 1 mg PO BID@0630,1630 [facility] Last Admin: 11/13/22 15:51 Dose: 1 mg Ondansetron HCl (Ondansetron Hcl 4 Mg/2 Ml Vial) 4 mg IVPUSH Q8H PRN PRN Reason: Nausea and Vomiting Oxycodone HCl (Oxycodone Hcl Immed Release 5 Mg Tablet) 5 mg PO Q6H PRN PRN Reason: Pain, Moderate (Pain Scale 4-6 Last Admin: 11/13/22 15:51 Dose: 5 mg Oxycodone HCl (Oxycodone Hcl Er 10 Mg Tab.Er.12h) 20 mg PO BID [facility] Last Admin: 11/13/22 22:09 Dose: 20 mg Pharmacy Consult (Consult Rx Vancomycin Dosing) 1 each MISCELLANE DAILY PRN PRN Reason: Consult order Quetiapine Fumarate (Quetiapine Fumarate 25 Mg Tablet) 12.5 mg PO BEDTIME [facility] Last Admin: 11/13/22 22:09 Dose: 12.5 mg Rivaroxaban (Rivaroxaban 20 Mg Tablet) 20 mg PO DAILY@1700 [facility] Last Admin: 11/13/22 15:51 Dose: 20 mg Sodium Chloride (0.9 % Sodium Chloride Flush 3 Ml Syringe) 3 ml IVFLUSH QSHIFT [facility] Last Admin: 11/13/22 23:17 Dose: 3 ml Tamsulosin HCl (Tamsulosin Hcl 0.4 Mg Capsule) 0.4 mg PO DAILY [facility] Thiamine HCl (Thiamine Hcl 100 Mg Tablet) 100 mg PO DAILY [facility] Valacyclovir HCl (Valacyclovir Hcl 1,000 Mg Tablet) 1,000 mg PO Q8H [facility] Stop: 11/20/22 07:01 Last Admin: 11/13/22 22:10 Dose: 1,000 mg Venlafaxine HCl (Venlafaxine Hcl 25 Mg Tablet) 100 mg PO BID [facility] Last Admin: 11/13/22 22:09 Dose: 100 mg Zolpidem Tartrate (Zolpidem Tartrate 5 Mg Tablet) 10 mg PO BEDTIME PRN PRN Reason: insomnia Last Admin: 11/13/22 22:09 Dose: 10 mg Home Medications Medication Instructions Recorded Confirmed Last Taken Type ezetimibe 10 mg tablet 1 tab PO DAILY 01/03/22 11/13/22 11/12/22 09:00 History gabapentin 300 mg capsule 1 cap PO TID 01/03/22 11/13/22 11/12/22 09:00 History hydroxyzine HCl 10 mg tablet 1 tab PO QID PRN itch 01/03/22 11/13/22 08/02/22 History insulin glargine 100 unit/mL 50 unit subcut BID 01/03/22 11/13/22 11/12/22 09:00 History subcutaneous solution (Lantus U-100 Insulin) insulin lispro 100 unit/mL 30 unit subcut TIDAC 01/03/22 11/13/22 11/12/22 09:00 History subcutaneous solution isosorbide mononitrate 30 mg 1 tab PO DAILY 01/03/22 11/13/22 11/12/22 09:00 History tablet,extended release 24 hr loratadine 10 mg tablet 1 tab PO DAILY 01/03/22 11/13/22 11/12/22 09:00 History losartan 25 mg tablet 1 tab PO DAILY 01/03/22 11/13/22 11/12/22 09:00 History meclizine 25 mg tablet 1 tab PO TID PRN dizziness 01/03/22 11/13/22 08/02/22 History metoprolol tartrate 25 mg tablet 1 tab PO BID 01/03/22 11/13/22 11/12/22 09:00 History montelukast 10 mg tablet 1 tab PO BEDTIME 01/03/22 11/13/22 11/11/22 History ondansetron HCl 4 mg tablet 1 tab PO TID PRN nausea 01/03/22 11/13/22 08/02/22 History oxycodone 20 mg tablet,crush 1 tab PO BID PRN Severe Pain 01/03/22 11/13/22 11/12/22 09:00 History resistant,extended release 12 hr (Scale Score 7-10) (OxyContin) oxycodone 5 mg tablet 2 tab PO Q4H 01/03/22 11/13/22 11/12/22 09:00 History pantoprazole 40 mg tablet,delayed 1 tab PO BID@0630,1630 01/03/22 11/13/22 11/12/22 09:00 History release quetiapine 25 mg tablet 0.5 tab PO BEDTIME 01/03/22 11/13/22 11/11/22 History rosuvastatin 40 mg tablet 1 tab PO BEDTIME 01/03/22 11/13/22 11/11/22 History thiamine HCl (vitamin B1) 100 mg 1 tab PO DAILY 01/03/22 11/13/22 11/12/22 09:00 History tablet zolpidem 10 mg tablet 1 tab PO BEDTIME PRN insomnia 01/03/22 11/13/22 08/02/22 History rivaroxaban 20 mg tablet (Xarelto) 1 tab PO DAILY@1700 07/23/22 11/13/22 11/11/22 History aspirin 81 mg tablet,delayed 1 tab PO DAILY 08/04/22 11/13/22 11/12/22 09:00 History release tamsulosin 0.4 mg capsule 1 cap PO DAILY 08/04/22 11/13/22 11/12/22 09:00 History baclofen 10 mg tablet 1 tab PO TID 11/13/22 11/13/22 11/12/22 09:00 History furosemide 20 mg tablet 1 tab PO DAILY 11/13/22 11/13/22 11/12/22 09:00 History venlafaxine 100 mg tablet 1 tab PO BID 11/13/22 11/13/22 11/12/22 09:00 History Physical Exam Vital Signs: Vital Signs: Last Vital Signs Temp 98.1 F 11/13/22 19:57 Pulse 92 11/13/22 19:57 Resp 20 11/13/22 19:57 BP 164/74 H 11/13/22 19:57 Pulse Ox 98 11/13/22 19:57 O2 Del Method 11/13/22 19:57 BMI result Body Mass Index 41.0 HEENT: Other: redness left ear ,swollen left eye Results Labs 11/13/22 10:29 11/13/22 10:29 Labs: Short CBC 11/13/22 Range/Units 10:29 WBC 12.8 H (4.8-10.8) X10*3/uL Hgb 13.3 L (14.0-18.0) g/dl Hct 38.4 L (42.0-52.0) % Plt Count 300 (160-400) X10*3/uL BMP 11/13/22 10:29 Sodium 135 Potassium 4.0 Chloride 103 Carbon Dioxide 21 L BUN 8 L Creatinine 0.90 Calcium 9.0 Liver Function 11/13/22 Range/Units 10:29 Total Bilirubin 0.7 (0.0-1.0) mg/dL AST 9 (5-37) U/L ALT 7 (0-40) U/L Alkaline Phosphatase 98 (39-117) U/L Albumin 3.9 (3.5-5.0) g/dL Microbiology Microbiology Results: Microbiology 11/13/22 Unknown Abscess Facial Gram Stain - Final Assessment and Plan (1) Cellulitis of face: Status: Acute This is likely severe cellulitis in diabetic. MRSA and Pseudomonas possible Less likely is herpes zoster but could be early (2) Diabetes: Status: Acute Plan Continue Cefepime Continue Vancomycin Continue Acyclovir for now Superficial culture ear may be useful check Pseudomonas versus MRSA. Time Spent With Patient Time: Total time managing care of this patient today ____ minutes.
[2022-11-14] MEDS: oxyCODONE HCl Immed Release 5 MG TABLET PO (04:22)
[2022-11-14] MEDS: HYDROmorphone HCl 0.5 MG/0.5 ML SYRINGE IVPUSH (04:22)
[2022-11-14 06:29] LABS: MANUAL DIFF FLAG NO
[2022-11-14] MEDS: valACYclovir HCL 1,000 MG TABLET 1000 MG PO (06:32)
[2022-11-14] MEDS: cefEPime HCl 2 GM in 0.9 % Sodium Chloride 50 ML IV ×3 (06:34→23:52)
[2022-11-14] MEDS: Acetaminophen 325 MG TABLET 650 MG PO (06:34)
[2022-11-14 06:35] LABS: Basophils Absolute Auto 0.1 X10*3/uL (0.0-0.2); Basophils Percent Auto 0.5 % (0-2); Eosinophils Absolute Auto 0.1 X10*3/uL (0.0-0.4); Eosinophils Percent Auto 0.8 % (0-4); Hemoglobin 11.7 g/dl (14.0-18.0); Imm Gran Abs Auto 0.05 X10*3/uL (0.00-0.03); Imm Gran Pct Auto 0.4 % (0.0-0.4); Lymphocytes Percent Auto 14.7 % (20-40); Mean Corpuscular HGB Conc 33.4 g/dl (31.0-36.0); Mean Corpuscular Hemoglobin 28.3 pg (27.0-33.0); Mean Corpuscular Volume 84.5 fL (80.0-98.0); Mean Platelet Volume 9.5 fL (9.4-12.4); Monocytes Absolute Auto 1.3 X10*3/uL (0.1-1.2); Monocytes Percent Auto 9.6 % (2-11); Neutrophils Absolute Auto 10.1 x10*3/uL (2.0-8.3); Platelet Count 287 X10*3/uL (160-400); Red Blood Count 4.14 X10*6/uL (4.60-5.80); Red Cell Distribution Width 13.7 % (11.0-16.0); White Blood Count 13.6 X10*3/uL (4.8-10.8)
[2022-11-14 06:48] LABS: Anion Gap 13 (12-20); Blood Urea Nitrogen 8 mg/dL (9-16); Calcium 8.6 mg/dL (8.4-10.2); Carbon Dioxide 25 mmol/L (22-29); Chloride 102 mmol/L (96-108); Creatinine Clr Calc Pharmacy 139.1; Estimated Glomerular Filt Rate > 60; Glucose Random 162 mg/dL (60-115); Sodium 136 mmol/L (135-145)
[2022-11-14 07:19] VITALS: BP 143/68; PULSE 89; RESP 20; TEMP 37.7; O2SAT 98
[2022-11-14 07:40] LABS: Glucose, Whole Blood 170 mg/dL (60-115)
[2022-11-14] MEDS: Baclofen 10 MG TABLET PO ×3 (08:04→21:47)
[2022-11-14] MEDS: Ezetimibe 10 MG TABLET PO (08:05)
[2022-11-14] MEDS: Venlafaxine HCL 25 MG TABLET 100 MG PO ×2 (08:05→21:48)
[2022-11-14] MEDS: Isosorbide Mononitrate 30 MG TAB.ER.24H PO (08:05)
[2022-11-14] MEDS: Furosemide 20 MG TABLET PO (08:06)
[2022-11-14] MEDS: Aspirin Enteric Coated 81 MG TABLET.DR PO (08:06)
[2022-11-14] MEDS: Losartan Potassium 25 MG TABLET PO (08:06)
[2022-11-14] MEDS: Tamsulosin HCL 0.4 MG CAPSULE PO (08:06)
[2022-11-14] MEDS: Metoprolol Tartrate 25 MG TABLET PO ×2 (08:06→21:48)
[2022-11-14] MEDS: oxyCODONE HCl ER 10 MG TAB.ER.12H 20 MG PO ×2 (08:06→21:47)
[2022-11-14] MEDS: Gabapentin 300 MG CAPSULE PO ×3 (08:06→21:47)
[2022-11-14] MEDS: Thiamine HCL 100 MG TABLET PO (08:07)
[2022-11-14] MEDS: Insulin Lispro 100 UNIT/ML 3 ML VIAL SUBCUT ×8 (08:07→21:50)
[2022-11-14] MEDS: Insulin Glargine,Hum.rec.anlog 100 UNIT/ML 10 ML VIAL 38 UNIT SUBCUT ×2 (08:07→21:50)
[2022-11-14] MEDS: Loratadine 10 MG TABLET PO (08:07)
--- NOTE | 2022-11-14 08:41 | MHC.CM.PN ---
CM met with Patient at bedside. Patient lives in an apartment with his /HCP and 32 year old Son and he uses a cane to assist with mobility. Home self care vs new VNA pending ID is the tentative plan and CM has initiated and will follow for dc planning. Patient has received Covid/Pfizer vax x5 and his PCP/Dr. Michael Acosta has retired but he still goes to the same practice at [address] [place] [address] in [place] @ [phone].
[2022-11-14] MEDS: ondansetron HCL 4 MG/2 ML VIAL IVPUSH ×2 (10:23→18:41)
[2022-11-14] MEDS: HYDROmorphone HCl 0.5 MG/0.5 ML SYRINGE 1 MG IVPUSH ×4 (10:25→21:46)
[2022-11-14 10:57] LABS: Glucose, Whole Blood 181 mg/dL (60-115)
[2022-11-14 11:01] VITALS: BP 112/58; PULSE 81; RESP 20; TEMP 36.3; O2SAT 97
[2022-11-14] MEDS: vancomycin HCL 1,000 MG in 0.9 % Sodium Chloride 250 ML 270 MG IV (11:10)
[2022-11-14] MEDS: methylPREDNISolone Sod Succ 125 MG/2 ML VIAL 60 MG IVPUSH ×2 (11:10→21:49)
--- NOTE | 2022-11-14 11:26 | HO.PM.IMPN ---
Subjective Subjective Date of Service: 11/14/22 Interval History: cc: ear and eye pain and swelling interval history: worsening pain and swelling, vision intact, no eye pain Physical Exam Vital Signs: Vital Signs: Last Vital Signs Temp 97.3 F 11/14/22 11:01 Pulse 81 11/14/22 11:01 Resp 20 11/14/22 11:01 BP 112/58 L 11/14/22 11:01 Pulse Ox 97 11/14/22 11:01 O2 Del Method 11/14/22 11:01 BMI result Body Mass Index 41.0 left ear erythema, edema, tender, single crusted lesion left eye swollen, minimal erythema, able to open, vision intact Objective Data Active Medications Acetaminophen (Acetaminophen 325 Mg Tablet) 650 mg PO Q6H PRN PRN Reason: Pain, Mild (Pain Scale 1-3) Last Admin: 11/14/22 06:34 Dose: 650 mg Documented By: KAUSHIK Aspirin (Aspirin Enteric Coated 81 Mg Tablet.Dr) 81 mg PO DAILY [facility] Last Admin: 11/14/22 08:06 Dose: 81 mg Documented By: LESLIE Atorvastatin Calcium (Atorvastatin Calcium 80 Mg Tablet) 80 mg PO BEDTIME [facility] Last Admin: 11/13/22 22:09 Dose: 80 mg Documented By: KAUSHIK Baclofen (Baclofen 10 Mg Tablet) 10 mg PO TID [facility] Last Admin: 11/14/22 08:04 Dose: 10 mg Documented By: LESLIE Dextrose (Dextrose 50 % 25 Gm/50 Ml Syringe) 25 gm IVPUSH Q15M PRN; Protocol PRN Reason: per Hypoglycemia Standing Ord. Docusate Sodium (Docusate Sodium 100 Mg Capsule) 100 mg PO BID PRN PRN Reason: Constipation Ezetimibe (Ezetimibe 10 Mg Tablet) 10 mg PO DAILY [facility] Last Admin: 11/14/22 08:05 Dose: 10 mg Documented By: LESLIE Furosemide (Furosemide 20 Mg Tablet) 20 mg PO DAILY [facility]; Protocol Last Admin: 11/14/22 08:06 Dose: 20 mg Documented By: LESLIE Gabapentin (Gabapentin 300 Mg Capsule) 300 mg PO TID [facility] Last Admin: 11/14/22 08:06 Dose: 300 mg Documented By: LESLIE Glucose (Glucose Gel 15 Gm Gel..Gram.) 15 gm PO Q15M PRN; Protocol PRN Reason: per Hypoglycemia Standing Ord. Hydromorphone HCl (Hydromorphone Hcl 0.5 Mg/0.5 Ml Syringe) 1 mg IVPUSH Q3H PRN; Protocol PRN Reason: Pain, Severe (Pain Scale 7-10) Last Admin: 11/14/22 10:25 Dose: 1 mg Documented By: LESLIE Hydroxyzine HCl (Hydroxyzine Hcl 10 Mg Tablet) 10 mg PO QID PRN PRN Reason: itch Last Admin: 11/13/22 22:10 Dose: 10 mg Documented By: KAUSHIK Cefepime HCl 2 gm/ Sodium (Chloride) 50 mls @ 100 mls/hr IV Q8H [facility] Last Infusion: 11/14/22 07:10 Dose: 0 mls/hr Documented By: LESLIE Vancomycin HCl 1,000 mg/ (Sodium Chloride) 270 mls @ 270 mls/hr IV Q12H [facility] Last Admin: 11/14/22 11:10 Dose: 270 mls/hr Documented By: LESLIE Acyclovir Sodium 900 mg/ (Sodium Chloride) 268.0056 mls @ 268.006 mls/hr IV Q8H [facility] Insulin Glargine (Insulin Glargine,Hum.Rec.Anlog 100 Unit/Ml 10 Ml Vial) 38 unit SUBCUT BID [facility] Last Admin: 11/14/22 08:07 Dose: 38 unit Documented By: LESLIE Insulin Human Lispro (Insulin Lispro 100 Unit/Ml 3 Ml Vial) 0 unit SUBCUT QIDACHS [facility]; Protocol Last Admin: 11/14/22 08:07 Dose: 2 unit Documented By: LESLIE Insulin Human Lispro (Insulin Lispro 100 Unit/Ml 3 Ml Vial) 5 unit SUBCUT QIDACHS [facility] Last Admin: 11/14/22 08:07 Dose: 5 unit Documented By: LESLIE Isosorbide Mononitrate (Isosorbide Mononitrate 30 Mg Tab.Er.24h) 30 mg PO DAILY [facility]; Protocol Last Admin: 11/14/22 08:05 Dose: 30 mg Documented By: LESLIE Loratadine (Loratadine 10 Mg Tablet) 10 mg PO DAILY [facility] Last Admin: 11/14/22 08:07 Dose: 10 mg Documented By: LESLIE Losartan Potassium (Losartan Potassium 25 Mg Tablet) 25 mg PO DAILY [facility]; Protocol Last Admin: 11/14/22 08:06 Dose: 25 mg Documented By: LESLIE Meclizine HCl (Meclizine Hcl 25 Mg Tablet) 25 mg PO TID PRN PRN Reason: dizziness Methylprednisolone Sodium Succinate (Methylprednisolone Sod Succ 125 Mg/2 Ml Vial) 60 mg IVPUSH Q12H [facility] Last Admin: 11/14/22 11:10 Dose: 60 mg Documented By: LESLIE Metoprolol Tartrate (Metoprolol Tartrate 25 Mg Tablet) 25 mg PO BID [facility]; Protocol Last Admin: 11/14/22 08:06 Dose: 25 mg Documented By: LESLIE Montelukast Sodium (Montelukast Sodium 10 Mg Tablet) 10 mg PO BEDTIME [facility] Last Admin: 11/13/22 22:10 Dose: 10 mg Documented By: KAUSHIK Omeprazole (Omeprazole 20 Mg Capsule.Dr) 20 mg PO BID@0630,1630 [facility] Ondansetron HCl (Ondansetron Hcl 4 Mg/2 Ml Vial) 4 mg IVPUSH Q8H PRN PRN Reason: Nausea and Vomiting Last Admin: 11/14/22 10:23 Dose: 4 mg Documented By: LESLIE Oxycodone HCl (Oxycodone Hcl Er 10 Mg Tab.Er.12h) 20 mg PO BID [facility] Last Admin: 11/14/22 08:06 Dose: 20 mg Documented By: LESLIE Pharmacy Consult (Consult Rx Vancomycin Dosing) 1 each MISCELLANE DAILY PRN PRN Reason: Consult order Quetiapine Fumarate (Quetiapine Fumarate 25 Mg Tablet) 12.5 mg PO BEDTIME [facility] Last Admin: 11/13/22 22:09 Dose: 12.5 mg Documented By: KAUSHIK Rivaroxaban (Rivaroxaban 20 Mg Tablet) 20 mg PO DAILY@1700 [facility] Last Admin: 11/13/22 15:51 Dose: 20 mg Documented By: YUE-THOMAS Sodium Chloride (0.9 % Sodium Chloride Flush 3 Ml Syringe) 3 ml IVFLUSH QSHIFT [facility] Last Admin: 11/13/22 23:17 Dose: 3 ml Documented By: KAUSHIK Tamsulosin HCl (Tamsulosin Hcl 0.4 Mg Capsule) 0.4 mg PO DAILY [facility] Last Admin: 11/14/22 08:06 Dose: 0.4 mg Documented By: LESLIE Thiamine HCl (Thiamine Hcl 100 Mg Tablet) 100 mg PO DAILY [facility] Last Admin: 11/14/22 08:07 Dose: 100 mg Documented By: LESLIE Venlafaxine HCl (Venlafaxine Hcl 25 Mg Tablet) 100 mg PO BID [facility] Last Admin: 11/14/22 08:05 Dose: 100 mg Documented By: LESLIE Zolpidem Tartrate (Zolpidem Tartrate 5 Mg Tablet) 10 mg PO BEDTIME PRN PRN Reason: insomnia Last Admin: 11/13/22 22:09 Dose: 10 mg Documented By: KAUSHIK Labs 11/14/22 06:17 11/14/22 06:17 Labs: Laboratory Results - last 24 hr 11/13/22 11/13/22 11/13/22 16:31 18:43 20:04 MCV MCH MCHC RDW Plt Count MPV Immature Gran % (Auto) Neut % (Auto) Lymph % (Auto) [place] % (Auto) Eos % (Auto) Baso % (Auto) Lymph # (Auto) [place] # (Auto) Eos # (Auto) Baso # (Auto) Abs Immat Gran (auto) Absolute Neuts (auto) Absolute Nucleated RBC Nucleated RBC % (auto) Anion Gap Estim Creat Clear Calc Estimated GFR POC Glucose 265 H 215 H 236 H Random Glucose Calcium 11/14/22 11/14/22 11/14/22 06:17 06:17 07:18 MCV 84.5 MCH 28.3 MCHC 33.4 RDW 13.7 Plt Count 287 MPV 9.5 Immature Gran % (Auto) 0.4 Neut % (Auto) 74.0 H Lymph % (Auto) 14.7 L [place] % (Auto) 9.6 Eos % (Auto) 0.8 Baso % (Auto) 0.5 Lymph # (Auto) 2.0 [place] # (Auto) 1.3 H Eos # (Auto) 0.1 Baso # (Auto) 0.1 Abs Immat Gran (auto) 0.05 H Absolute Neuts (auto) 10.1 H Absolute Nucleated RBC 0.000 Nucleated RBC % (auto) 0.0 Anion Gap 13 Estim Creat Clear Calc 139.1 Estimated GFR > 60 POC Glucose 170 H Random Glucose 162 H Calcium 8.6 11/14/22 10:47 MCV MCH MCHC RDW Plt Count MPV Immature Gran % (Auto) Neut % (Auto) Lymph % (Auto) [place] % (Auto) Eos % (Auto) Baso % (Auto) Lymph # (Auto) [place] # (Auto) Eos # (Auto) Baso # (Auto) Abs Immat Gran (auto) Absolute Neuts (auto) Absolute Nucleated RBC Nucleated RBC % (auto) Anion Gap Estim Creat Clear Calc Estimated GFR POC Glucose 181 H Random Glucose Calcium Microbiology Microbiology Results: Microbiology 11/13/22 Unknown Gram Stain - Final Abscess Facial Routine Culture - Preliminary Culture in progress. Assessment and Plan (1) Cellulitis of face: Status: Acute Plan 61-year-old male with history of paroxysmal atrial fibrillation anticoagulated with Xarelto, mild intermittent asthma, insulin-dependent type 2 diabetes with hyperglycemia, peripheral artery disease with recent admission in 06/17 for osteomyelitis s/p amputation of the left great toe, hypertension, and coronary artery disease s/p quadruple bypass in 2018 admitted for left face pain and swelling sepsis present on admission, not severe due to left facial cellulitis complicated by DM with hyperglycemia vs Andrew paul ID appreciated continue vanc, cefepime, follow up cultures will change to acyvlovir and add steroids pain control chronic pain with opiate dependence continue oxycotnin, dilaudid for breakthrough insulin-dependent type 2 diabetes with hyperglycemia basal bolus insulin monitor pocs paroxysmal atrial fibrillation-rate controlled -continue Xarelto for anticoagulation lopressor hypertension-reasonably controlled losartan, lopressor CAD/hyperlipidemia-no anginal chest pain continue statin, beta-dylon, baby aspirin, isosorbide, xarelto BPH continue Flomax DVT prophylaxis-on Xarelto Full code reason for continued hospitalization:iv antibiotics for serious facial infection, awaiting signs of improvement Time Spent With Patient Time: Total time managing care of this patient today ____ minutes. Quality Stroke Does the patient have a stroke diagnosis?: No VTE Prior VTE?: No VTE Risk Level:: Medical - moderate - high VTE Device Contraindication: Treatment Not Indicated VTE Drug Contraindication: N/A - Med Ordered
[2022-11-14 15:46] VITALS: BP 114/43; PULSE 83; RESP 19; TEMP 36.3; O2SAT 95
[2022-11-14 15:47] LABS: Glucose, Whole Blood 235 mg/dL (60-115)
[2022-11-14] MEDS: Omeprazole 20 MG CAPSULE.DR PO (17:41)
[2022-11-14] MEDS: 0.9 % Sodium Chloride Flush 3 ML SYRINGE IVFLUSH ×2 (17:42→21:55)
[2022-11-14] MEDS: Rivaroxaban 20 MG TABLET PO (17:42)
[2022-11-14 18:33] LABS: Herpes Simplex Type 2 IgG <0.90 index
[2022-11-14 18:35] LABS: Appearance Urine Clear; Color Urine Yellow; Glucose Urine UA >=1000 mg/dL (Negative); Leukocyte Esterase Urine Negative (Negative); Nitrite Urine Negative (Negative); PH 6.5 (5.0-9.0); Specific Gravity - Urine >= 1.030 (1.005-1.025); UMIC TRIGGER UACC YES; Urine Blood Negative (Negative); Urine Ketones 15 mg/dL (Negative); Urine Protein 30 (1+) mg/dL (Neg-Trace)
[2022-11-14 18:46] LABS: Bacteria Urine None Seen (None Seen); RBC Urine 0-2 /HPF (0-2); Squamous Epithelial Cell Urine 0-2 /HPF (0-2); WBC Urine 0-5 /HPF (0-5)
[2022-11-14 19:44] LABS: Glucose, Whole Blood 439 mg/dL (60-115)
[2022-11-14 19:59] VITALS: BP 107/63; PULSE 84; TEMP 36.2; O2SAT 96
[2022-11-14 21:45] LABS: Vancomycin Trough 9.1 mcg/mL (10.0-20.0)
[2022-11-14] MEDS: Atorvastatin Calcium 80 MG TABLET PO (21:47)
[2022-11-14] MEDS: Montelukast Sodium 10 MG TABLET PO (21:47)
[2022-11-14] MEDS: QUEtiapine Fumarate 25 MG TABLET 12.5 MG PO (21:47)
--- NOTE | 2022-11-14 21:51 | HE.PHANOTE ---
RE: vanco Trough on 11/14 came back at 9.1, increased dose to 1250mg Q12H with predicted AUC 424mg/L. Being cautious due to pt's weight. Next level to be drawn 11/15 @2100. Will continue to monitor
[2022-11-14 23:40] VITALS: BP 117/62; PULSE 72; RESP 18; TEMP 36.1; O2SAT 98
[2022-11-14] MEDS: Zolpidem Tartrate 5 MG TABLET 10 MG PO (23:52)
[2022-11-15] MEDS: vancomycin HCL 1,250 MG in 0.9 % Sodium Chloride 250 ML 166.67 MG IV ×3 (00:42→23:08)
[2022-11-15] MEDS: HYDROmorphone HCl 0.5 MG/0.5 ML SYRINGE 1 MG IVPUSH ×7 (00:43→21:39)
[2022-11-15 03:17] VITALS: BP 140/63; PULSE 70; RESP 18; TEMP 36.4; O2SAT 100
[2022-11-15] MEDS: Omeprazole 20 MG CAPSULE.DR PO ×2 (05:18→16:31)
[2022-11-15 05:47] LABS: Hemoglobin 11.5 g/dl (14.0-18.0); Mean Corpuscular HGB Conc 32.9 g/dl (31.0-36.0); Mean Corpuscular Hemoglobin 28.3 pg (27.0-33.0); Platelet Count 269 X10*3/uL (160-400); Red Blood Count 4.07 X10*6/uL (4.60-5.80); Red Cell Distribution Width 13.6 % (11.0-16.0); White Blood Count 13.3 X10*3/uL (4.8-10.8)
[2022-11-15 06:22] LABS: Anion Gap 13 (12-20); Blood Urea Nitrogen 13 mg/dL (9-16); Calcium 8.7 mg/dL (8.4-10.2); Carbon Dioxide 21 mmol/L (22-29); Chloride 104 mmol/L (96-108); Estimated Glomerular Filt Rate > 60; Glucose Fasting 289 mg/dL (60-99); Potassium 4.1 mmol/L (3.3-5.1); Sodium 134 mmol/L (135-145)
[2022-11-15] MEDS: cefEPime HCl 2 GM in 0.9 % Sodium Chloride 50 ML IV ×3 (06:45→22:36)
[2022-11-15 07:37] LABS: Glucose, Whole Blood 309 mg/dL (60-115)
[2022-11-15] MEDS: 0.9 % Sodium Chloride Flush 3 ML SYRINGE IVFLUSH ×3 (07:38→20:28)
[2022-11-15 07:49] VITALS: BP 124/66; PULSE 69; RESP 18; TEMP 36.1; O2SAT 94
--- NOTE | 2022-11-15 08:52 | HO.PM.IMPN ---
Subjective Subjective Date of Service: 11/15/22 Interval History: cc: ear and eye pain and swelling interval history: significant improvement, though still with some pain, throbbing, and swelling Physical Exam Vital Signs: Vital Signs: Last Vital Signs Temp 97 F 11/15/22 07:49 Pulse 69 11/15/22 07:49 Resp 18 11/15/22 07:49 BP 124/66 11/15/22 07:49 Pulse Ox 94 11/15/22 07:49 O2 Del Method 11/15/22 07:49 BMI result Body Mass Index 41.0 left ear erythema, edema, tender - significantly improved, + purulent lesion left eye swelling, minimal erythema - essentially resolved Objective Data Active Medications Acetaminophen (Acetaminophen 325 Mg Tablet) 650 mg PO Q6H PRN PRN Reason: Pain, Mild (Pain Scale 1-3) Last Admin: 11/14/22 06:34 Dose: 650 mg Documented By: KAUSHIK Aspirin (Aspirin Enteric Coated 81 Mg Tablet.Dr) 81 mg PO DAILY [facility] Last Admin: 11/14/22 08:06 Dose: 81 mg Documented By: LESLIE Atorvastatin Calcium (Atorvastatin Calcium 80 Mg Tablet) 80 mg PO BEDTIME [facility] Last Admin: 11/14/22 21:47 Dose: 80 mg Documented By: KARLI Baclofen (Baclofen 10 Mg Tablet) 10 mg PO TID [facility] Last Admin: 11/14/22 21:47 Dose: 10 mg Documented By: KARLI Dextrose (Dextrose 50 % 25 Gm/50 Ml Syringe) 25 gm IVPUSH Q15M PRN; Protocol PRN Reason: per Hypoglycemia Standing Ord. Docusate Sodium (Docusate Sodium 100 Mg Capsule) 100 mg PO BID PRN PRN Reason: Constipation Ezetimibe (Ezetimibe 10 Mg Tablet) 10 mg PO DAILY [facility] Last Admin: 11/14/22 08:05 Dose: 10 mg Documented By: LESLIE Furosemide (Furosemide 20 Mg Tablet) 20 mg PO DAILY [facility]; Protocol Last Admin: 11/14/22 08:06 Dose: 20 mg Documented By: LESLIE Gabapentin (Gabapentin 300 Mg Capsule) 300 mg PO TID [facility] Last Admin: 11/14/22 21:47 Dose: 300 mg Documented By: KARLI Glucose (Glucose Gel 15 Gm Gel..Gram.) 15 gm PO Q15M PRN; Protocol PRN Reason: per Hypoglycemia Standing Ord. Hydromorphone HCl (Hydromorphone Hcl 0.5 Mg/0.5 Ml Syringe) 1 mg IVPUSH Q3H PRN; Protocol PRN Reason: Pain, Severe (Pain Scale 7-10) Last Admin: 11/15/22 06:45 Dose: 1 mg Documented By: KARLI Hydroxyzine HCl (Hydroxyzine Hcl 10 Mg Tablet) 10 mg PO QID PRN PRN Reason: itch Last Admin: 11/13/22 22:10 Dose: 10 mg Documented By: KAUSHIK Cefepime HCl 2 gm/ Sodium (Chloride) 50 mls @ 100 mls/hr IV Q8H [facility] Last Infusion: 11/15/22 07:29 Dose: 0 mls/hr Documented By: ALISE Acyclovir Sodium 900 mg/ (Sodium Chloride) 268.0056 mls @ 268.006 mls/hr IV Q8H [facility] Last Infusion: 11/15/22 05:20 Dose: 0 mls/hr Documented By: KARLI Vancomycin HCl 1,250 mg/ (Sodium Chloride) 250 mls @ 166.667 mls/hr IV Q12H [facility] Last Infusion: 11/15/22 02:31 Dose: 0 mls/hr Documented By: KARLI Insulin Glargine (Insulin Glargine,Hum.Rec.Anlog 100 Unit/Ml 10 Ml Vial) 38 unit SUBCUT BID [facility] Last Admin: 11/14/22 21:50 Dose: 38 unit Documented By: KARLI Insulin Human Lispro (Insulin Lispro 100 Unit/Ml 3 Ml Vial) 0 unit SUBCUT QIDACHS [facility]; Protocol Last Admin: 11/14/22 21:49 Dose: 10 unit Documented By: KARLI Insulin Human Lispro (Insulin Lispro 100 Unit/Ml 3 Ml Vial) 5 unit SUBCUT QIDACHS [facility] Last Admin: 11/14/22 21:50 Dose: 5 unit Documented By: KARLI Isosorbide Mononitrate (Isosorbide Mononitrate 30 Mg Tab.Er.24h) 30 mg PO DAILY [facility]; Protocol Last Admin: 11/14/22 08:05 Dose: 30 mg Documented By: LESLIE Loratadine (Loratadine 10 Mg Tablet) 10 mg PO DAILY [facility] Last Admin: 11/14/22 08:07 Dose: 10 mg Documented By: LESLIE Losartan Potassium (Losartan Potassium 25 Mg Tablet) 25 mg PO DAILY [facility]; Protocol Last Admin: 11/14/22 08:06 Dose: 25 mg Documented By: LESLIE Meclizine HCl (Meclizine Hcl 25 Mg Tablet) 25 mg PO TID PRN PRN Reason: dizziness Metoprolol Tartrate (Metoprolol Tartrate 25 Mg Tablet) 25 mg PO BID [facility]; Protocol Last Admin: 11/14/22 21:48 Dose: 25 mg Documented By: KARLI Montelukast Sodium (Montelukast Sodium 10 Mg Tablet) 10 mg PO BEDTIME [facility] Last Admin: 11/14/22 21:47 Dose: 10 mg Documented By: KARLI Omeprazole (Omeprazole 20 Mg Capsule.Dr) 20 mg PO BID@0630,1630 [facility] Last Admin: 11/15/22 05:18 Dose: 20 mg Documented By: KARLI Ondansetron HCl (Ondansetron Hcl 4 Mg/2 Ml Vial) 4 mg IVPUSH Q8H PRN PRN Reason: Nausea and Vomiting Last Admin: 11/14/22 18:41 Dose: 4 mg Documented By: LESLIE Oxycodone HCl (Oxycodone Hcl Er 10 Mg Tab.Er.12h) 20 mg PO BID [facility] Last Admin: 11/14/22 21:47 Dose: 20 mg Documented By: KARLI Pharmacy Consult (Consult Rx Vancomycin Dosing) 1 each MISCELLANE DAILY PRN PRN Reason: Consult order Quetiapine Fumarate (Quetiapine Fumarate 25 Mg Tablet) 12.5 mg PO BEDTIME [facility] Last Admin: 11/14/22 21:47 Dose: 12.5 mg Documented By: KARLI Rivaroxaban (Rivaroxaban 20 Mg Tablet) 20 mg PO DAILY@1700 [facility] Last Admin: 11/14/22 17:42 Dose: 20 mg Documented By: LESLIE Sodium Chloride (0.9 % Sodium Chloride Flush 3 Ml Syringe) 3 ml IVFLUSH QSHIFT [facility] Last Admin: 11/15/22 07:38 Dose: 3 ml Documented By: ALISE Tamsulosin HCl (Tamsulosin Hcl 0.4 Mg Capsule) 0.4 mg PO DAILY [facility] Last Admin: 11/14/22 08:06 Dose: 0.4 mg Documented By: LESLIE Thiamine HCl (Thiamine Hcl 100 Mg Tablet) 100 mg PO DAILY [facility] Last Admin: 11/14/22 08:07 Dose: 100 mg Documented By: LESLIE Venlafaxine HCl (Venlafaxine Hcl 25 Mg Tablet) 100 mg PO BID [facility] Last Admin: 11/14/22 21:48 Dose: 100 mg Documented By: KARLI Zolpidem Tartrate (Zolpidem Tartrate 5 Mg Tablet) 10 mg PO BEDTIME PRN PRN Reason: insomnia Last Admin: 11/14/22 23:52 Dose: 10 mg Documented By: KARLI Labs 11/15/22 05:24 11/15/22 05:24 Labs: Laboratory Results - last 24 hr 11/13/22 11/14/22 11/14/22 10:29 10:47 15:20 MCV MCH MCHC RDW Plt Count MPV Absolute Nucleated RBC Nucleated RBC % (auto) Anion Gap Estim Creat Clear Calc Estimated GFR POC Glucose 181 H 235 H Fasting Glucose Calcium Urine Color Urine Appearance Urine pH Ur Specific [place] Urine Protein Urine Glucose (UA) Urine Ketones Urine Blood Urine Nitrite Ur Leukocyte Esterase Urine RBC Urine WBC Ur Squamous Epith Cells Urine Bacteria Hyaline Casts Vancomycin Trough HSV I IgG Ab 46.80 H HSV II IgG <0.90 11/14/22 11/14/22 11/14/22 18:15 19:35 20:59 MCV MCH MCHC RDW Plt Count MPV Absolute Nucleated RBC Nucleated RBC % (auto) Anion Gap Estim Creat Clear Calc Estimated GFR POC Glucose 439 H* Fasting Glucose Calcium Urine Color Yellow Urine Appearance Clear Urine pH 6.5 Ur Specific [place] >= 1.030 H Urine Protein 30 (1+) H Urine Glucose (UA) >=1000 H Urine Ketones 15 Urine Blood Negative Urine Nitrite Negative Ur Leukocyte Esterase Negative Urine RBC 0-2 Urine WBC 0-5 Ur Squamous Epith Cells 0-2 Urine Bacteria None Seen Hyaline Casts 3-5 Vancomycin Trough 9.1 L HSV I IgG Ab HSV II IgG 11/15/22 11/15/22 11/15/22 05:24 05:24 07:22 MCV 86.0 MCH 28.3 MCHC 32.9 RDW 13.6 Plt Count 269 MPV 10.0 Absolute Nucleated RBC 0.000 Nucleated RBC % (auto) 0.0 Anion Gap 13 Estim Creat Clear Calc 125.0 Estimated GFR > 60 POC Glucose 309 H Fasting Glucose 289 H Calcium 8.7 Urine Color Urine Appearance Urine pH Ur Specific [place] Urine Protein Urine Glucose (UA) Urine Ketones Urine Blood Urine Nitrite Ur Leukocyte Esterase Urine RBC Urine WBC Ur Squamous Epith Cells Urine Bacteria Hyaline Casts Vancomycin Trough HSV I IgG Ab HSV II IgG Microbiology Microbiology Results: Microbiology 11/13/22 Unknown Gram Stain - Final Abscess Facial Routine Culture - Preliminary Culture in progress. 11/13/22 10:29 Blood Culture - Preliminary Blood - Venous No growth after 24 hours. 11/13/22 10:28 Blood Culture - Preliminary Blood - Venous No growth after 24 hours. Assessment and Plan (1) Cellulitis of face: Status: Acute Plan 61-year-old male with history of paroxysmal atrial fibrillation anticoagulated with Xarelto, mild intermittent asthma, insulin-dependent type 2 diabetes with hyperglycemia, peripheral artery disease with recent admission in 06/17 for osteomyelitis s/p amputation of the left great toe, hypertension, and coronary artery disease s/p quadruple bypass in 2018 admitted for left face pain and swelling sepsis present on admission, not severe, due to left facial cellulitis complicated by DM with hyperglycemia vs Andrew paul ID appreciated continue vanc, cefepime, follow up cultures - negative so far continue acyvlovir, abraham change solumedrol to prednisone 60mg daily overall much improved chronic pain with opiate dependence continue oxycotnin, dilaudid for breakthrough insulin-dependent type 2 diabetes with hyperglycemia basal bolus insulin monitor pocs paroxysmal atrial fibrillation-rate controlled -continue Xarelto for anticoagulation lopressor hypertension-reasonably controlled losartan, lopressor CAD/hyperlipidemia-no anginal chest pain continue statin, beta-dylon, baby aspirin, isosorbide, xarelto BPH continue Flomax DVT prophylaxis-on Xarelto Full code reason for continued hospitalization:iv antibiotics for serious facial infection Time Spent With Patient Time: Total time managing care of this patient today ____ minutes. Quality Stroke Does the patient have a stroke diagnosis?: No VTE Prior VTE?: No VTE Risk Level:: Medical - moderate - high VTE Device Contraindication: Treatment Not Indicated VTE Drug Contraindication: N/A - Med Ordered
[2022-11-15] MEDS: Insulin Lispro 100 UNIT/ML 3 ML VIAL SUBCUT ×8 (09:02→20:41)
[2022-11-15] MEDS: Venlafaxine HCL 25 MG TABLET 100 MG PO ×2 (09:03→20:27)
[2022-11-15] MEDS: Insulin Glargine,Hum.rec.anlog 100 UNIT/ML 10 ML VIAL 38 UNIT SUBCUT ×2 (09:03→20:28)
[2022-11-15] MEDS: Furosemide 20 MG TABLET PO (09:04)
[2022-11-15] MEDS: Thiamine HCL 100 MG TABLET PO (09:04)
[2022-11-15] MEDS: Gabapentin 300 MG CAPSULE PO ×3 (09:04→20:26)
[2022-11-15] MEDS: oxyCODONE HCl ER 10 MG TAB.ER.12H 20 MG PO ×2 (09:04→20:26)
[2022-11-15] MEDS: Loratadine 10 MG TABLET PO (09:05)
[2022-11-15] MEDS: Losartan Potassium 25 MG TABLET PO (09:05)
[2022-11-15] MEDS: Ezetimibe 10 MG TABLET PO (09:05)
[2022-11-15] MEDS: Metoprolol Tartrate 25 MG TABLET PO ×2 (09:05→20:27)
[2022-11-15] MEDS: Aspirin Enteric Coated 81 MG TABLET.DR PO (09:05)
[2022-11-15] MEDS: Tamsulosin HCL 0.4 MG CAPSULE PO (09:05)
[2022-11-15] MEDS: Isosorbide Mononitrate 30 MG TAB.ER.24H PO (09:05)
[2022-11-15] MEDS: Baclofen 10 MG TABLET PO ×3 (09:05→20:41)
--- NOTE | 2022-11-15 09:16 | MHC.CM.PN ---
Patient is not yet medically cleared for dc (IV Acyclovir, IV Cefepime, IV Vanco, IV Dilaudid today); home is the goal and CM will continue to follow.
[2022-11-15] MEDS: predniSONE 20 MG TABLET 60 MG PO (09:17)
[2022-11-15 11:04] VITALS: BP 134/68; PULSE 81; RESP 20; TEMP 36.7; O2SAT 100
--- NOTE | 2022-11-15 11:25 | P.CDIC_ITS ---
CDI Concurrent Query Documentation Clarification: PHYSICIAN'S DOCUMENTATION REQUEST Date of Query: 11/15/22 1125 Patient Name: Patric Gomez Admit Date: 11/13/22 Dear Doctor, A review of the medical record indicates additional documentation may be needed. Please review below and update the documentation accordingly. Clinical Indicators: Is there a diagnosis that correlates with the findings below: Risk Factors/Clinical Indicators/Treatments BMI: 41.1 Height: 5ft 8in Weight: 122.47kg Per RN shift assessments: Abdomen large & obese If possible, please provide an associated diagnosis related to the abnormal BMI, such as: For a BMI >= 40: * Severe or Morbid Obesity * Obesity * Due to excess calories * Drug induced * Due to other cause * With alveolar hypoventilation * Without alveolar hypoventilation Or: * BMI is not significant * Other (please specify) * Unable to determine Use of terms such as suspected, likely, concern for, or probable (associated with a specific diagnosis that is being evaluated, monitored, or treated as if it exists) are acceptable and can be coded in the inpatient setting, when documented at the time of discharge. Thank you, Deepika Short MS, RN, CCRN Extension: [phone] Please use your independent medical judgment in providing your response. THIS QUERY IS PART OF THE PERMANENT MEDICAL RECORD Provider Response: Morbid Obesity
[2022-11-15 12:15] LABS: Glucose, Whole Blood 300 mg/dL (60-115)
--- NOTE | 2022-11-15 14:54 | PC.NURSE ---
approx 1400, patient called out and wrang bansal. 20 g in r lower arm found to be infiltrating, acyclovir paused and hot pack applied to swolloen forearm to relieve swelling.
[2022-11-15 16:00] VITALS: BP 106/56; PULSE 98; RESP 18; TEMP 37; O2SAT 98
[2022-11-15 16:25] LABS: Glucose, Whole Blood 290 mg/dL (60-115)
[2022-11-15] MEDS: Rivaroxaban 20 MG TABLET PO (16:31)
--- NOTE | 2022-11-15 16:32 | P.PNID_ITS ---
Subjective Subjective Date of Service: 11/15/22 Critical Care Time (minutes): 15 Comment: he is sleeping Objective Data Labs 11/15/22 05:24 11/15/22 05:24 Labs: Laboratory Results - last 24 hr 11/13/22 11/14/22 11/14/22 10:29 18:15 19:35 WBC RBC Hgb Hct MCV MCH MCHC RDW Plt Count MPV Absolute Nucleated RBC Nucleated RBC % (auto) Sodium Potassium Chloride Carbon Dioxide Anion Gap BUN Creatinine Estim Creat Clear Calc Estimated GFR POC Glucose 439 H* Fasting Glucose Calcium Urine Color Yellow Urine Appearance Clear Urine pH 6.5 Ur Specific [place] >= 1.030 H Urine Protein 30 (1+) H Urine Glucose (UA) >=1000 H Urine Ketones 15 Urine Blood Negative Urine Nitrite Negative Ur Leukocyte Esterase Negative Urine RBC 0-2 Urine WBC 0-5 Ur Squamous Epith Cells 0-2 Urine Bacteria None Seen Hyaline Casts 3-5 Vancomycin Trough HSV I IgG Ab 46.80 H HSV II IgG <0.90 11/14/22 11/15/22 11/15/22 20:59 05:24 05:24 WBC 13.3 H RBC 4.07 L Hgb 11.5 L Hct 35.0 L MCV 86.0 MCH 28.3 MCHC 32.9 RDW 13.6 Plt Count 269 MPV 10.0 Absolute Nucleated RBC 0.000 Nucleated RBC % (auto) 0.0 Sodium 134 L Potassium 4.1 Chloride 104 Carbon Dioxide 21 L Anion Gap 13 BUN 13 Creatinine 0.79 Estim Creat Clear Calc 125.0 Estimated GFR > 60 POC Glucose Fasting Glucose 289 H Calcium 8.7 Urine Color Urine Appearance Urine pH Ur Specific [place] Urine Protein Urine Glucose (UA) Urine Ketones Urine Blood Urine Nitrite Ur Leukocyte Esterase Urine RBC Urine WBC Ur Squamous Epith Cells Urine Bacteria Hyaline Casts Vancomycin Trough 9.1 L HSV I IgG Ab HSV II IgG 11/15/22 11/15/22 11/15/22 07:22 12:08 16:19 WBC RBC Hgb Hct MCV MCH MCHC RDW Plt Count MPV Absolute Nucleated RBC Nucleated RBC % (auto) Sodium Potassium Chloride Carbon Dioxide Anion Gap BUN Creatinine Estim Creat Clear Calc Estimated GFR POC Glucose 309 H 300 H 290 H Fasting Glucose Calcium Urine Color Urine Appearance Urine pH Ur Specific [place] Urine Protein Urine Glucose (UA) Urine Ketones Urine Blood Urine Nitrite Ur Leukocyte Esterase Urine RBC Urine WBC Ur Squamous Epith Cells Urine Bacteria Hyaline Casts Vancomycin Trough HSV I IgG Ab HSV II IgG Microbiology Microbiology Results: Microbiology 11/13/22 10:29 Blood - Venous Blood Culture - Preliminary No growth after 48 hours. 11/13/22 10:28 Blood - Venous Blood Culture - Preliminary No growth after 48 hours. 11/13/22 Unknown Abscess Facial Gram Stain - Final 11/13/22 Unknown Abscess Facial Routine Culture - Preliminary Culture in progress. Physical Exam Vital Signs: Vital Signs: Last Vital Signs Temp 98.6 F 11/15/22 16:00 Pulse 98 11/15/22 16:00 Resp 18 11/15/22 16:00 BP 106/56 L 11/15/22 16:00 Pulse Ox 98 11/15/22 16:00 O2 Del Method 11/15/22 16:00 BMI result Body Mass Index 41.0 Const: General: cooperative HEENT: Head: Yes normal to inspection Eyes: Other: improving occiput,dark purulent lesion Assessment and Plan Assessment and plan (1) Cellulitis of face: Problem details: improving cellulitis possible herpes zoster Status: Acute Assessment and Plan: He is doing better (2) Diabetes: Status: Acute Plan po Doxycycline and Augmentin outpatient for a week po Valtrex 1 g tid for a week Time Spent With Patient Time: Total time managing care of this patient today ____ minutes.
[2022-11-15 19:34] VITALS: BP 110/60; PULSE 76; RESP 18; TEMP 36.4; O2SAT 98
[2022-11-15 19:49] LABS: Glucose, Whole Blood 375 mg/dL (60-115)
[2022-11-15] MEDS: Atorvastatin Calcium 80 MG TABLET PO (20:26)
[2022-11-15] MEDS: QUEtiapine Fumarate 25 MG TABLET 12.5 MG PO (20:28)
[2022-11-15] MEDS: Montelukast Sodium 10 MG TABLET PO (20:41)
[2022-11-15 21:47] LABS: Vancomycin Trough 12.5 mcg/mL (10.0-20.0)
[2022-11-15 23:59] VITALS: BP 98/54; PULSE 66; RESP 20; TEMP 36.2; O2SAT 98
[2022-11-16 00:50] VITALS: BP 117/59
[2022-11-16] MEDS: HYDROmorphone HCl 0.5 MG/0.5 ML SYRINGE 1 MG IVPUSH ×3 (00:53→13:12)
[2022-11-16 03:30] VITALS: BP 105/53; PULSE 66; RESP 20; TEMP 36.1; O2SAT 98
[2022-11-16] MEDS: Omeprazole 20 MG CAPSULE.DR PO (06:09)
[2022-11-16 06:59] LABS: Creatinine Clr Calc Pharmacy 133.4; Estimated Glomerular Filt Rate > 60
[2022-11-16 07:10] VITALS: BP 132/62; PULSE 65; RESP 18; TEMP 36.4; O2SAT 99
--- NOTE | 2022-11-16 07:19 | HE.PHANOTE ---
Vancomycin Dosing Renal function is stable. Continue current regimen, vanco 1250 mg Q12H. Next trough 11/17 @ 0900. Nba SalomonD
[2022-11-16 07:30] LABS: Glucose, Whole Blood 222 mg/dL (60-115)
[2022-11-16] MEDS: 0.9 % Sodium Chloride Flush 3 ML SYRINGE IVFLUSH (08:28)
[2022-11-16] MEDS: Insulin Lispro 100 UNIT/ML 3 ML VIAL SUBCUT ×4 (08:28→12:07)
[2022-11-16] MEDS: cefEPime HCl 2 GM in 0.9 % Sodium Chloride 50 ML IV (08:30)
[2022-11-16] MEDS: Venlafaxine HCL 25 MG TABLET 100 MG PO (08:31)
[2022-11-16] MEDS: oxyCODONE HCl ER 10 MG TAB.ER.12H 20 MG PO (08:31)
[2022-11-16] MEDS: Ezetimibe 10 MG TABLET PO (08:32)
[2022-11-16] MEDS: Loratadine 10 MG TABLET PO (08:32)
[2022-11-16] MEDS: Tamsulosin HCL 0.4 MG CAPSULE PO (08:32)
[2022-11-16] MEDS: Isosorbide Mononitrate 30 MG TAB.ER.24H PO (08:32)
[2022-11-16] MEDS: Baclofen 10 MG TABLET PO (08:33)
[2022-11-16] MEDS: predniSONE 20 MG TABLET 60 MG PO (08:33)
[2022-11-16] MEDS: Metoprolol Tartrate 25 MG TABLET PO (08:33)
[2022-11-16] MEDS: Aspirin Enteric Coated 81 MG TABLET.DR PO (08:33)
[2022-11-16] MEDS: Gabapentin 300 MG CAPSULE PO (08:34)
[2022-11-16] MEDS: Insulin Glargine,Hum.rec.anlog 100 UNIT/ML 10 ML VIAL 38 UNIT SUBCUT (08:34)
[2022-11-16] MEDS: Furosemide 20 MG TABLET PO (08:34)
[2022-11-16] MEDS: Losartan Potassium 25 MG TABLET PO (08:34)
[2022-11-16] MEDS: Thiamine HCL 100 MG TABLET PO (08:34)
--- NOTE | 2022-11-16 09:12 | PM.DS ---
DS: Providers Provider Date of Service: 11/16/22 Date of admission: 11/13/22 14:38 Primary care physician: Michael Acosta MD Consults: 11/13/22 14:56 Consult to Infectious Diseases Routine Consulting Provider: Autumn Raines Reason for consultation: ?shingles, facial cellulitis DS: Diagnosis Discharge Diagnosis (1) Cellulitis of face: Status: Acute (2) Diabetes: Status: Acute DS: Summary Hospital Course Hospital Course: from initial hpi: Chief Complaint: facial redness and pain 61-year-old male with history of paroxysmal atrial fibrillation anticoagulated with Xarelto, mild intermittent asthma, insulin-dependent type 2 diabetes with hyperglycemia, peripheral artery disease with recent admission in 06/17 for osteomyelitis s/p amputation of the left great toe, hypertension, and coronary artery disease s/p quadruple bypass in 2018 presented to the ED earlier today for evaluation of pain, redness, and rash on the left side of the face.? He states about 4 days ago he developed ?whiteheads ?in the pre-auricular area that ruptured followed by increased swelling and redness on the left side of the face/preauricular area.? Today, he woke up with significant swelling around the left eye and severe pain on the left side of the face/scalp.? He denies any fevers, chills, diplopia, blurred vision, light sensitivity, purulent drainage from lesions, abdominal pain, nausea, vomiting, shortness of breath, chest pain.? He denies any history of shingles but states he did receive the Shingrix vaccines.? On arrival, patient afebrile.? Mild tachycardia to 118, improved to 95.? Leukocytosis of 12.8.? Renal function and electrolyte levels normal.? Glucose 379.? Lactic acid 1.7.? Herpes simplex culture and serum antibody testing pending.? CT of the facial bones with IV contrast is without evidence of any facial abscess does show edema the subcutaneous tissues of left face and scalp likely related to cellulitis and no evidence of maxillofacial bone injury.? Fluorescein stain left eye with observation using Wood's lamp did not reveal any dendritic lesions.? In the ED, patient treated with manage mg acyclovir, vancomycin, Zosyn, 5 units insulin, hydromorphone, and ondansetron. Patient to be admitted for further management facial cellulitis with question of herpes zoster. hospital course: Patient was admitted for sepsis secondary to left facial cellulitis complicated by diabetes with hyperglycemia versus [place] with superimposed bacterial cellulitis. Patient was treated with broad-spectrum antibiotics with IV vancomycin and cefepime as well as IV acyclovir and methylprednisolone. Blood cultures were negative, wound culture from facial lesion purulence grew MRSA. Symptoms significantly improved. Patient was seen by infectious disease recommended Augmentin, doxycycline, Valtrex On discharge. For patient's chronic pain with opiate dependency was continue OxyContin and Dilaudid used for breakthrough. For his diabetes with hyperglycemia he was continue basal bolus insulin. For paroxysmal atrial fibrillation he was continued on Xarelto and metoprolol. For hypertension he was continue losartan and Lopressor. For coronary disease he was continued on statin, aspirin, Xarelto, nitrate, beta-dylon. For BPH is continue on Flomax. Patient is feeling better will be discharged home. Time Spent with Patient Time attestation: Total time managing care of this patient today ____ minutes. Discharge coordination time: Greater than 30 minutes Quality: Safe Use of Opioids Does Pt have an Active Cancer Diagnosis on the Problem List?: No Quality: Stroke Does the patient have a stroke diagnosis?: No Physical Exam Vital Signs: Vital Signs: Last Vital Signs Temp 97.6 F 11/16/22 07:10 Pulse 65 11/16/22 07:10 Resp 18 11/16/22 07:10 BP 132/62 11/16/22 07:10 Pulse Ox 99 11/16/22 07:10 O2 Del Method 11/16/22 07:10 BMI result Body Mass Index 41.0 Const: General: cooperative HEENT: Head: Yes normal to inspection Eyes: Other: improving occiput,dark purulent lesion DS: Data Data Completed and Pending Completed studies during hospitalization [Text1]: Procedures Detachment at Left 1st Toe, Complete, Open Approach (01/03/22) Fluoroscopy of Left Lower Extremity Arteries using High Osmolar Contrast (08/04/22) Fluoroscopy of Right Subclavian Vein using Low Osmolar Contrast, Guidance (08/04/22) Insertion of Infusion Device into Right Subclavian Vein, Percutaneous Approach (08/04/22) Insertion of Infusion Device into Superior Vena Cava, Percutaneous Approach (01/20/22) Ultrasonography of Superior Vena Cava, Guidance (01/03/22) Labs on day of discharge: Laboratory Results - last 24 hr 11/15/22 11/15/22 11/15/22 12:08 16:19 19:43 Creatinine Estim Creat Clear Calc Estimated GFR POC Glucose 300 H 290 H 375 H* Vancomycin Trough 11/15/22 11/16/22 11/16/22 20:50 06:24 07:14 Creatinine 0.74 Estim Creat Clear Calc 133.4 Estimated GFR > 60 POC Glucose 222 H Vancomycin Trough 12.5 Preliminary micro results at discharge 11/13/22 10:29 Blood Culture - Preliminary Blood - Venous No growth after 48 hours. 11/13/22 10:28 Blood Culture - Preliminary Blood - Venous No growth after 48 hours. Discharge Plan Discharge Anticipated Discharge Date/Time: 11/16/22 09:05 Patient Disposition: Home, Self-Care Discharge Diagnosis: facial cellulitis Referrals: Michael Acosta MD [Primary Care Provider] - 1 Week Discharge Medications: New prednisone 20 mg Tablet 60 mg PO DAILY Qty: 15 0RF amoxicillin-pot clavulanate 875-125 mg tablet 1 tab PO Q12H Qty: 14 0RF doxycycline hyclate 100 mg capsule 100 mg PO BID Qty: 14 0RF valacyclovir [Valtrex] 1 gram tablet 1,000 mg PO Q8H Qty: 21 0RF Continued (DME) walker Misc See Rx Instructions .Route Qty: 1 0RF Rx Instructions: As directed (DME) Aircast off loading boot Kit See Rx Instructions .Route Qty: 1 0RF Rx Instructions: As directed (DME) elastic bandage 6 X 1.8 -yard bandage See Rx Instructions .Route Qty: 6 0RF Rx Instructions: As directed (DME) gauze bandage [Band-Aid Gauze Pads] 4 X 4 bandage See Rx Instructions .Route Qty: 25 3RF Rx Instructions: As directed (DME) sterile gauze 4x4 See Rx Instructions .Route .MEDSUPPLY Qty: 40 3RF Rx Instructions: Apply to left foot wound every other day (DME) calcium alginate ag 4x4 pad See Rx Instructions .Route .MEDSUPPLY Qty: 5 2RF Rx Instructions: Apply to wound beds every other day quetiapine 25 mg tablet 0.5 tab PO BEDTIME insulin glargine [Lantus U-100 Insulin] 100 unit/mL solution 50 unit subcut BID Rx Instructions: 50 units at lunch and 100 units at bedtime isosorbide mononitrate 30 mg tablet extended release 24 hr 1 tab PO DAILY thiamine HCl (vitamin B1) 100 mg tablet 1 tab PO DAILY pantoprazole 40 mg tablet,delayed release (DR/EC) 1 tab PO BID@0630,1630 losartan 25 mg tablet 1 tab PO DAILY gabapentin 300 mg capsule 1 cap PO TID montelukast 10 mg tablet 1 tab PO BEDTIME insulin lispro 100 unit/mL solution 30 unit subcut TIDAC Rx Instructions: sliding scale zolpidem 10 mg tablet 1 tab PO BEDTIME PRN (Reason: insomnia) hydroxyzine HCl 10 mg tablet 1 tab PO QID PRN (Reason: itch) loratadine 10 mg tablet 1 tab PO DAILY oxycodone 5 mg tablet 2 tab PO Q4H ezetimibe 10 mg tablet 1 tab PO DAILY rosuvastatin 40 mg tablet 1 tab PO BEDTIME metoprolol tartrate 25 mg tablet 1 tab PO BID oxycodone [OxyContin] 20 mg tablet,oral only,ext.rel.12 hr 1 tab PO BID PRN (Reason: Severe Pain (Scale Score 7-10)) ondansetron HCl 4 mg tablet 1 tab PO TID PRN (Reason: nausea) meclizine 25 mg tablet 1 tab PO TID PRN (Reason: dizziness) (DME) jw Morgan See Rx Instructions .Route Qty: 1 0RF Rx Instructions: As directed Xarelto 20 mg tablet 1 tab PO DAILY@1700 aspirin 81 mg tablet,delayed release (DR/EC) 1 tab PO DAILY tamsulosin 0.4 mg capsule 1 cap PO DAILY venlafaxine 100 mg tablet 1 tab PO BID baclofen 10 mg tablet 1 tab PO TID furosemide 20 mg tablet 1 tab PO DAILY Discharge Orders: Discharge Order (Routine); Ordered 11/16/22 Ordered By: Carl Jeong Diet: Advance to usual diet Activity on Discharge: As tolerated Stand Alone Forms: Patient Portal Discharge page Care Plan Goals: recovery Health Concerns: facial cellulitis Plan of Treatment: meds as prescribed Assessment: see above
--- NOTE | 2022-11-16 09:12 | MHC.CM.PN ---
pt dcd home ,skilled services not ordered by
[2022-11-16 11:43] VITALS: BP 134/68; PULSE 80; RESP 18; TEMP 36.9; O2SAT 99
[2022-11-16] MEDS: vancomycin HCL 1,250 MG in 0.9 % Sodium Chloride 250 ML 166.67 MG IV (11:48)
[2022-11-16 12:00] LABS: Glucose, Whole Blood 180 mg/dL (60-115)
[2022-11-19 23:54] LABS: Beta-Hydroxybutyrate 1.48 mmol/L
== END 2022-11-16 15:00 | disposition home or self-care (01) | DRG 720 ==
LOC: HO.ED 12:52 → HO.EDOVER 15:05 → HO.IMC 16:55
PROVIDERS: Admitting Provider Physician Assistant; Emergency Provider Emergency Medicine; PCP Internal Medicine; Visit Provider Internal Medicine
DX: A41.9 Sepsis, unspecified organism (principal); E11.51 Type 2 diabetes mellitus with diabetic peripheral angiopathy without gangrene; E11.628 Type 2 diabetes mellitus with other skin complications; L03.213 Periorbital cellulitis; B02.21 Postherpetic geniculate ganglionitis; E11.65 Type 2 diabetes mellitus with hyperglycemia; I25.10 Atherosclerotic heart disease of native coronary artery without angina pectoris; I48.0 Paroxysmal atrial fibrillation; N40.0 Benign prostatic hyperplasia without lower urinary tract symptoms; E66.01 Morbid (severe) obesity due to excess calories; E78.5 Hyperlipidemia, unspecified; M54.50 Low back pain, unspecified; B95.62 Methicillin resistant Staphylococcus aureus infection as the cause of diseases classified elsewhere; I10 Essential (primary) hypertension; G89.29 Other chronic pain; Z68.41 Body mass index [BMI] 40.0-44.9, adult; Z95.1 Presence of aortocoronary bypass graft; Z20.822 Contact with and (suspected) exposure to COVID-19; Z87.891 Personal history of nicotine dependence; Z88.5 Allergy status to narcotic agent; Z79.4 Long term (current) use of insulin; Z79.01 Long term (current) use of anticoagulants; Z79.899 Other long term (current) drug therapy
CPT/HCPCS: 36415; 70487; 80048; 80053; 80202; 81001; 82010; 82565; 82947; 83605; 85025; 85027; 86695; 86696; 87040; 87070; 87077; 87186; 87205; 87255; 87635; 99222; 99284; J0133; J0692; J1170; J2405; J2543; J2930; J3370; J3371; Q9967

== ENCOUNTER 2022-12-26 10:08 | Emergency (ER) | payer MEDICAID, SELFPAY ==
--- NOTE | ~2022-12-26 | CT_ITS ---
EXAMINATION: CT ABDOMEN AND PELVIS WITH CONTRAST CLINICAL INFORMATION: Epigastric pain with nausea and vomiting. COMPARISON: None TECHNIQUE: Multidetector volumetric images were obtained from the superior aspect of the liver through the pubic symphysis following administration of 99 mL of Omnipaque 350 intravenous contrast. Sagittal and coronal reformatted images were obtained on the technologist's workstation. Oral contrast: No This CT examination was performed using dose optimization techniques as appropriate, variously including the following: *Automated exposure control *Adjustment of mA and/or kV according to patient size (this includes techniques or standardized protocols for targeted exams where dose is matched to indication/reason for exam; i.e. extremities or head) *Use of iterative reconstruction technique DLP: 1263 mGy-cm FINDINGS: Visualized lung bases demonstrate bibasilar atelectasis with possible scarring. Severe coronary artery calcifications are partially visualized. The liver demonstrates normal size, contour and attenuation. The gallbladder is surgically absent. Severe fatty atrophy of the pancreas. The spleen and adrenal glands are unremarkable. Symmetrically enhancing kidneys. There is no hydronephrosis of either kidney. 6 mm hypodense focus within the upper pole the right kidney is too small to accurately characterize. Tiny hiatal hernia. The stomach is decompressed. Normal caliber loops of small and large bowel. Normal appendix. Normal caliber abdominal aorta demonstrating moderate to severe atherosclerotic disease. No retroperitoneal lymphadenopathy. Evaluation of pelvis is limited secondary to streak artifact from bilateral hip prostheses. The bladder appears normally distended. The prostate gland is not enlarged. There is no gross free pelvic fluid. No inguinal lymphadenopathy. Mild degenerative changes of the spine. Postsurgical changes of the lumbosacral junction. Partially visualized bilateral hip prostheses. CT/CT abdomen pelvis w IV con IMPRESSION: No CT evidence for acute abnormality within the abdomen or pelvis. Fleischner guidelines were followed.
[2022-12-26 10:17] VITALS: BP 160/98; BP 171/84; PULSE 103; PULSE 104; RESP 14; TEMP 36.6; O2SAT 100; O2SAT 99; BMI 41.8
--- NOTE | 2022-12-26 11:35 | ECG_ITS ---
Test Reason : NAUSEA/VOMITING Blood Pressure : / mmHG Vent. Rate : 102 BPM Atrial Rate : 102 BPM P-R Int : 204 ms QRS Dur : 090 ms QT Int : 370 ms P-R-T Axes : 052 -02 067 degrees QTc Int : 482 ms Sinus tachycardia Possible Left atrial enlargement Nonspecific T wave abnormality Abnormal ECG When compared with ECG of 20-JAN-2022 20:20, No significant change was found Referred By: Sherry Diaz Electronically Signed By:YINA MERRILL MD
--- NOTE | 2022-12-26 11:38 | ED_ITS ---
HPI - Nausea/Vomiting/Diarrhea General Chief complaint: Nausea/Vomiting/Diarrhea Stated complaint: N/V SINCE 2099 T-1 Time Seen by Provider: 12/26/22 11:16 Source: patient and EMS Mode of arrival: EMS History of Present Illness HPI Narrative: 62-year-old male with a past medical history of AFib on Xarelto, asthma, CAD, diabetes, HTN, presenting to the ED via EMS complaining of persistent epigastric abdominal pain, nausea, and nonbloody emesis since last night. Reports about 30 episodes of emesis. Reports decreased p.o. intake. Last bowel movement last night. Denies fever, chills, suspicious food intake, recent travel, dysuria/he maturia elicited complaint: nausea, vomiting and abdominal pain Onset (ago): hour(s) Related Data Home Medications Medication Instructions Recorded Confirmed ezetimibe 10 mg tablet 1 tab PO DAILY 01/03/22 11/13/22 gabapentin 300 mg capsule 1 cap PO TID 01/03/22 11/13/22 hydroxyzine HCl 10 mg tablet 1 tab PO QID PRN itch 01/03/22 11/13/22 insulin glargine 100 unit/mL 50 unit subcut BID 01/03/22 11/13/22 subcutaneous solution (Lantus U-100 Insulin) insulin lispro 100 unit/mL 30 unit subcut TIDAC 01/03/22 11/13/22 subcutaneous solution isosorbide mononitrate 30 mg 1 tab PO DAILY 01/03/22 11/13/22 tablet,extended release 24 hr loratadine 10 mg tablet 1 tab PO DAILY 01/03/22 11/13/22 losartan 25 mg tablet 1 tab PO DAILY 01/03/22 11/13/22 meclizine 25 mg tablet 1 tab PO TID PRN dizziness 01/03/22 11/13/22 metoprolol tartrate 25 mg tablet 1 tab PO BID 01/03/22 11/13/22 montelukast 10 mg tablet 1 tab PO BEDTIME 01/03/22 11/13/22 ondansetron HCl 4 mg tablet 1 tab PO TID PRN nausea 01/03/22 11/13/22 oxycodone 20 mg tablet,crush 1 tab PO BID PRN Severe Pain 01/03/22 11/13/22 resistant,extended release 12 hr (Scale Score 7-10) (OxyContin) pantoprazole 40 mg tablet,delayed 1 tab PO BID@0630,1630 01/03/22 11/13/22 release quetiapine 25 mg tablet 0.5 tab PO BEDTIME 01/03/22 11/13/22 rosuvastatin 40 mg tablet 1 tab PO BEDTIME 01/03/22 11/13/22 thiamine HCl (vitamin B1) 100 mg 1 tab PO DAILY 01/03/22 11/13/22 tablet zolpidem 10 mg tablet 1 tab PO BEDTIME PRN insomnia 01/03/22 11/13/22 rivaroxaban 20 mg tablet (Xarelto) 1 tab PO DAILY@1700 07/23/22 11/13/22 aspirin 81 mg tablet,delayed 1 tab PO DAILY 08/04/22 11/13/22 release tamsulosin 0.4 mg capsule 1 cap PO DAILY 08/04/22 11/13/22 baclofen 10 mg tablet 1 tab PO TID 11/13/22 11/13/22 furosemide 20 mg tablet 1 tab PO DAILY 11/13/22 11/13/22 venlafaxine 100 mg tablet 1 tab PO BID 11/13/22 11/13/22 Previous Rx's Medication Instructions Recorded walker #1 ea 01/11/22 walker #1 ea 01/15/22 Band-Aid Gauze Pads 4 X 4 #25 ea 04/16/22 bandage (gauze bandage) elastic bandage 6 X 1.8 yard #6 ea 04/16/22 off loading boot (Aircast off #1 ea 04/16/22 loading boot) calcium alginate ag #5 ea 04/23/22 sterile gauze #40 ea 04/23/22 amoxicillin 875 mg-potassium 1 tab PO Q12H #14 tabs 11/16/22 clavulanate 125 mg tablet doxycycline hyclate 100 mg capsule 100 mg PO BID #14 caps 11/16/22 oxycodone 5 mg tablet 10 mg PO Q4H #15 tabs 11/16/22 prednisone 20 mg tablet 60 mg PO DAILY #15 tabs 11/16/22 valacyclovir 1 gram tablet 1,000 mg PO Q8H #21 tabs 11/16/22 (Valtrex) ondansetron 4 mg disintegrating 4 mg PO Q8H PRN nausea and 12/26/22 tablet vomiting #10 tabs Allergies Allergy/AdvReac Type Severity Reaction Status Date / Time morphine AdvReac Intermediate Hallucinati Verified 12/26/22 10:30 ons Review of Systems Review of Systems: Constitutional: No Fever, No Chills, No Fatigue, No Malaise ENT/Mouth: No Ear Pain, No Nasal Congestion, No sore throat, No Rhinorrhea, No Swallowing Difficulty Eyes: No Eye Pain, No Swelling, No Redness, No Vision Changes Cardiovascular: No Chest Pain, No SOB, No Edema, No Palpitations Respiratory: No Cough, No Sputum, No Dyspnea Gastrointestinal: + Nausea, + Vomiting, No Diarrhea, No Constipation, + A bdominal pain Genitourinary: No Dysuria, No Urinary Frequency, No Hematuria, No Flank Pain, No Urinary Flow Changes, No Hesitancy Musculoskeletal: No joint pain, No Myalgias, No Joint Swelling Skin: No Skin Lesions, No rash Neuro: No Weakness, No Dizziness, No Headache Yes all other systems are reviewed and are negative Constitutional: Constitutional: Reports as per [facility] Past Medical History Attestation statement: The following information was validated with the patient. Medical History Afib Amputation of left great toe Asthma CAD (coronary artery disease) Cellulitis Diabetes DMII (diabetes mellitus, type 2) FHx: bilateral hip replacements Hyperglycemia Hypertension Lower limb amputation, great toe Orthopedic hardware present PAD (peripheral artery disease) Surgical History H/O bilateral hip replacements History of amputation of great toe (01/07/22) History of amputation of toe (07/29/22) History of ankle surgery History of back surgery History of neck surgery S/P quadruple vessel bypass Family History Family History Other No family history of coronary artery disease Social History Social History Household Members: Family Household Members Other:: 3 Housing: Apartment Are you a primary career technical education instructor to a significant other at home: No Do you presently have visiting nurse or other home services: No Alcohol intake: never Patient Tobacco Use Status: Former Tobacco user Quit Date: 30 years ago Tobacco use type: Cigarette Second Hand Smoke Exposure: No Advance Directives: Yes Advance Directives Information Provided: No Advance Directives on File: No Advance Directives Date on File: 01/04/22 service: Yes Current occupational status: disabled Physical Exam Vital Signs: Vital Signs: Last Vital Signs Temp 99.7 F 12/26/22 14:59 Pulse 105 H 12/26/22 14:59 Resp 13 12/26/22 14:59 BP 163/84 H 12/26/22 14:59 Pulse Ox 99 12/26/22 14:59 O2 Del Method 12/26/22 14:59 BMI result Body Mass Index 41.8 Const: Other: Actively dry heaving during evaluation General: cooperative and no acute distress Orientation/consciousness: patient oriented x3 Limitations: no limitations HEENT: Head: Yes normal to inspection and Yes atraumatic Ears: hearing grossly normal bilaterally General nose exam: Normal external nose present Face and sinus: Yes normal facial exam Eyes: General: appearance normal, both eyes and all related structures EOM: EOMs intact bilaterally Neck: Neck: Yes normal visual inspection and Yes no meningeal signs Resp: Effort & Inspection: normal respiratory effort and no respiratory distress Auscultation: clear to auscultation bilaterally, no crackles, no rales, no rhonchi and no wheezes Cardio: Rate: tachycardic Heart sounds: S1 normal heart sound present and S2 normal heart sound present GI: Inspection: Yes normal to inspection Palpation (GI): Soft to palpation, Tenderness to palpation present (GI) in the epigastrum; with no rebound tenderness, no guarding and not rigid : General: Yes no CVA tenderness Back/Spine/Pelvis: Back: no CVA tenderness Skin: Rashes: no rashes Wounds: no wounds Neuro: General: patient oriented x3, tone normal and no meningeal signs Gait exam (Neuro): Normal gait present Extrem: General: Yes normal to inspection Course Course Course Narrative: -1509--leukocytosis of 12.1. H&H stable. Glucose elevated to 354, slight anion gap of 21 (likely from ketosis rather than DKA) -UA with glucose, protein & [address] abdomen pelvis w IV con IMPRESSION: No CT evidence for acute abnormality within the abdomen or pelvis.? Fleischner guidelines were followed. -repeat POC 291. Tox screen positive for marijuana >1643--on re-evaluation patient reports symptomatic improvement. Tolerating william marcello and [place] Ice without nausea or vomiting. Plan to discharge home with close PCP follow-up. Results discussed with patient including worrisome signs and symptoms and strict return precautions, and when to return to the emergency department. They verbalized understanding and feel safe for discharge at this time. Medications Administered Discontinued Medications Generic Name Dose Route Start Last Admin Trade Name Yajaira PRN Reason Stop Dose Admin Famotidine 20 mg 12/26/22 11:35 12/26/22 12:28 Famotidine/Pf 20 Mg/2 Ml Vial IVPUSH 12/26/22 11:36 20 mg ONCE ONE Administration Fentanyl 50 mcg 12/26/22 12:34 12/26/22 12:38 Fentanyl Citrate/Pf 100 Mcg/2 Ml Vial IVPUSH 12/26/22 12:35 50 mcg ONCE ONE Administration Protocol Sodium Chloride 1,000 mls @ 999 mls/hr 12/26/22 11:45 12/26/22 12:27 Ns IV 12/26/22 12:45 999 mls/hr .Q1H1M WILLIAM Administration Iohexol 100 ml 12/26/22 14:05 12/26/22 14:05 Iohexol 350 Mg/Ml 100 Ml Infus..Btl IV 12/26/22 14:06 100 ml ONCE ONE Administration Ondansetron HCl 4 mg 12/26/22 11:35 12/26/22 12:27 Ondansetron Hcl 4 Mg/2 Ml Vial IVPUSH 12/26/22 11:36 4 mg ONCE ONE Administration Medical Decision Making Medical Decision Making MDM Narrative: 62-year-old male with a past medical history of AFib on Xarelto, asthma, CAD, diabetes, HTN, presenting to the ED via EMS complaining of persistent epigastric abdominal pain, nausea, and nonbloody emesis since last night. On exam actively dry heaving during exam, tachycardic, abdomen soft with epigastric tenderness, no rebound or guarding, no CVAT. Concern for pancreatitis vs gastritis vs gastroenteritis. Rule out metabolic abnormalities. Lower suspicion for AC S/appendicitis/diverticulitis Plan: EKG, labs, UA, CT AP, IVF, antiemetics, reassess Please refer to course for remaining clinical decision making, interpretation of labs/imaging results, and discussions with consultants and/or family members. Differential Diagnosis Differential Diagnoses: The differential diagnosis associated with the presentation includes as above Admission/Observation Consideration of admission/observation: Escalation of care including adm ission/observation considered Lab Data MDM Lab Attestation statement: I reviewed the patient's lab results. 12/26/22 13:08 12/26/22 13:08 Labs: Lab Results 12/26/22 12/26/22 12/26/22 Range/Units 11:58 11:58 11:59 WBC (4.8-10.8) X10*3/uL RBC (4.60-5.80) X10*6/uL Hgb (14.0-18.0) g/dl Hct (42.0-52.0) % MCV (80.0-98.0) fL MCH (27.0-33.0) pg MCHC (31.0-36.0) g/dl RDW (11.0-16.0) % Plt Count (160-400) X10*3/uL MPV (9.4-12.4) fL Immature Gran % (Auto) (0.0-0.4) % Neut % (Auto) (45-73) % Lymph % (Auto) (20-40) % Walker % (Auto) (2-11) % Eos % (Auto) (0-4) % Baso % (Auto) (0-2) % Lymph # (Auto) (1.2-4.9) X10*3/uL Walker # (Auto) (0.1-1.2) X10*3/uL Eos # (Auto) (0.0-0.4) X10*3/uL Baso # (Auto) (0.0-0.2) X10*3/uL Abs Immat Gran (auto) (0.00-0.03) X10*3/uL Absolute Neuts (auto) (2.0-8.3) x10*3/uL Absolute Nucleated RBC (0.0-0.012) X10*3/uL Nucleated RBC % (auto) (0.0-0.2) /100WBC Smear Tech's Comments Sodium (135-145) mmol/L Potassium (3.3-5.1) mmol/L Chloride (96-108) mmol/L Carbon Dioxide (22-29) mmol/L Anion Gap (12-20) BUN (9-16) mg/dL Creatinine (0.5-1.4) mg/dL Estim Creat Clear Calc Estimated GFR POC Glucose (60-115) mg/dL Random Glucose (60-115) mg/dL Calcium (8.4-10.2) mg/dL Magnesium (1.6-2.6) mg/dL Total Bilirubin (0.0-1.0) mg/dL Direct Bilirubin (0.0-0.5) mg/dL AST (5-37) U/L ALT (0-40) U/L Alkaline Phosphatase (39-117) U/L Total Protein (6.5-8.0) g/dL Albumin (3.5-5.0) g/dL Lipase (8-78) U/L Urine Color Yellow Urine Appearance Clear Urine pH 8.0 (5.0-9.0) Ur Specific [place] >= 1.030 H (1.005-1.025) Urine Protein 30 (1+) H (Neg-Trace) mg/dL Urine Glucose (UA) >=1000 H (Negative) mg/dL Urine Ketones 40 (Negative) mg/dL Urine Blood Negative (Negative) Urine Nitrite Negative (Negative) Ur Leukocyte Esterase Negative (Negative) Urine RBC 0-2 (0-2) /HPF Urine WBC 0-5 (0-5) /HPF Ur Squamous Epith Cells 0-2 (0-2) /HPF Urine Bacteria None Seen (None Seen) Hyaline Casts 0-2 (0-2) /LPF Urine Opiates Screen (Not Detect) Urine Fentanyl Screen (Not Detect) Ur Barbiturates Screen (Not Detect) Ur Phencyclidine Scrn (Not Detect) Ur Amphetamines Screen (Not Detect) U Benzodiazepines Scrn (Not Detect) Urine Cocaine Screen (Not Detect) U Marijuana (THC) Screen (Not Detect) Acetone, Qual COVID-19 (MACRINA) Negative (Negative) COVID-19 Clin Com See Note Influenza Type A (MARIE) Negative (Negative) Influenza Type B (MARIE) Negative (Negative) Influenza A & B Note See Note 12/26/22 12/26/22 12/26/22 Range/Units 11:59 13:08 13:08 WBC 12.1 H (4.8-10.8) X10*3/uL RBC 4.87 (4.60-5.80) X10*6/uL Hgb 14.2 D (14.0-18.0) g/dl Hct 40.9 L (42.0-52.0) % MCV 84.0 (80.0-98.0) fL MCH 29.2 (27.0-33.0) pg MCHC 34.7 (31.0-36.0) g/dl RDW 14.1 (11.0-16.0) % Plt Count 251 (160-400) X10*3/uL MPV 10.1 (9.4-12.4) fL Immature Gran % (Auto) 0.3 (0.0-0.4) % Neut % (Auto) 94.6 H (45-73) % Lymph % (Auto) 2.7 L (20-40) % Walker % (Auto) 2.1 (2-11) % Eos % (Auto) 0.1 (0-4) % Baso % (Auto) 0.2 (0-2) % Lymph # (Auto) 0.3 L (1.2-4.9) X10*3/uL Walker # (Auto) 0.3 (0.1-1.2) X10*3/uL Eos # (Auto) 0.0 (0.0-0.4) X10*3/uL Baso # (Auto) 0.0 (0.0-0.2) X10*3/uL Abs Immat Gran (auto) 0.04 H (0.00-0.03) X10*3/uL Absolute Neuts (auto) 11.4 H (2.0-8.3) x10*3/uL Absolute Nucleated RBC 0.000 (0.0-0.012) X10*3/uL Nucleated RBC % (auto) 0.0 (0.0-0.2) /100WBC Smear Tech's Comments VERIFIED Sodium 139 (135-145) mmol/L Potassium 3.8 (3.3-5.1) mmol/L Chloride 100 (96-108) mmol/L Carbon Dioxide 22 (22-29) mmol/L Anion Gap 21 H (12-20) BUN 12 (9-16) mg/dL Creatinine 0.83 (0.5-1.4) mg/dL Estim Creat Clear Calc 118.6 Estimated GFR > 60 POC Glucose (60-115) mg/dL Random Glucose 354 H* (60-115) mg/dL Calcium 8.8 (8.4-10.2) mg/dL Magnesium 2.0 (1.6-2.6) mg/dL Total Bilirubin 1.2 H (0.0-1.0) mg/dL Direct Bilirubin 0.3 (0.0-0.5) mg/dL AST 18 (5-37) U/L ALT 20 (0-40) U/L Alkaline Phosphatase 93 (39-117) U/L Total Protein 6.7 (6.5-8.0) g/dL Albumin 4.2 (3.5-5.0) g/dL Lipase 5 L (8-78) U/L Urine Color Urine Appearance Urine pH (5.0-9.0) Ur Specific [place] (1.005-1.025) Urine Protein (Neg-Trace) mg/dL Urine Glucose (UA) (Negative) mg/dL Urine Ketones (Negative) mg/dL Urine Blood (Negative) Urine Nitrite (Negative) Ur Leukocyte Esterase (Negative) Urine RBC (0-2) /HPF Urine WBC (0-5) /HPF Ur Squamous Epith Cells (0-2) /HPF Urine Bacteria (None Seen) Hyaline Casts (0-2) /LPF Urine Opiates Screen Not Detected (Not Detect) Urine Fentanyl Screen Not Detected (Not Detect) Ur Barbiturates Screen Not Detected (Not Detect) Ur Phencyclidine Scrn Not Detected (Not Detect) Ur Amphetamines Screen Not Detected (Not Detect) U Benzodiazepines Scrn Not Detected (Not Detect) Urine Cocaine Screen Not Detected (Not Detect) U Marijuana (THC) Screen POSITIVE H (Not Detect) Acetone, Qual Cancelled COVID-19 (MACRINA) (Negative) COVID-19 Clin Com Influenza Type A (MARIE) (Negative) Influenza Type B (MARIE) (Negative) Influenza A & B Note 12/26/22 Range/Units 14:55 WBC (4.8-10.8) X10*3/uL RBC (4.60-5.80) X10*6/uL Hgb (14.0-18.0) g/dl Hct (42.0-52.0) % MCV (80.0-98.0) fL MCH (27.0-33.0) pg MCHC (31.0-36.0) g/dl RDW (11.0-16.0) % Plt Count (160-400) X10*3/uL MPV (9.4-12.4) fL Immature Gran % (Auto) (0.0-0.4) % Neut % (Auto) (45-73) % Lymph % (Auto) (20-40) % Walker % (Auto) (2-11) % Eos % (Auto) (0-4) % Baso % (Auto) (0-2) % Lymph # (Auto) (1.2-4.9) X10*3/uL Walker # (Auto) (0.1-1.2) X10*3/uL Eos # (Auto) (0.0-0.4) X10*3/uL Baso # (Auto) (0.0-0.2) X10*3/uL Abs Immat Gran (auto) (0.00-0.03) X10*3/uL Absolute Neuts (auto) (2.0-8.3) x10*3/uL Absolute Nucleated RBC (0.0-0.012) X10*3/uL Nucleated RBC % (auto) (0.0-0.2) /100WBC Smear Tech's Comments Sodium (135-145) mmol/L Potassium (3.3-5.1) mmol/L Chloride (96-108) mmol/L Carbon Dioxide (22-29) mmol/L Anion Gap (12-20) BUN (9-16) mg/dL Creatinine (0.5-1.4) mg/dL Estim Creat Clear Calc Estimated GFR POC Glucose 291 H (60-115) mg/dL Random Glucose (60-115) mg/dL Calcium (8.4-10.2) mg/dL Magnesium (1.6-2.6) mg/dL Total Bilirubin (0.0-1.0) mg/dL Direct Bilirubin (0.0-0.5) mg/dL AST (5-37) U/L ALT (0-40) U/L Alkaline Phosphatase (39-117) U/L Total Protein (6.5-8.0) g/dL Albumin (3.5-5.0) g/dL Lipase (8-78) U/L Urine Color Urine Appearance Urine pH (5.0-9.0) Ur Specific [place] (1.005-1.025) Urine Protein (Neg-Trace) mg/dL Urine Glucose (UA) (Negative) mg/dL Urine Ketones (Negative) mg/dL Urine Blood (Negative) Urine Nitrite (Negative) Ur Leukocyte Esterase (Negative) Urine RBC (0-2) /HPF Urine WBC (0-5) /HPF Ur Squamous Epith Cells (0-2) /HPF Urine Bacteria (None Seen) Hyaline Casts (0-2) /LPF Urine Opiates Screen (Not Detect) Urine Fentanyl Screen (Not Detect) Ur Barbiturates Screen (Not Detect) Ur Phencyclidine Scrn (Not Detect) Ur Amphetamines Screen (Not Detect) U Benzodiazepines Scrn (Not Detect) Urine Cocaine Screen (Not Detect) U Marijuana (THC) Screen (Not Detect) Acetone, Qual COVID-19 (MACRINA) (Negative) COVID-19 Clin Com Influenza Type A (MARIE) (Negative) Influenza Type B (MARIE) (Negative) Influenza A & B Note Independent Interpretation I performed an independent interpretation of an: EKG Radiology Impression Discussion of test interpretation with radiology: I have reviewed the radiologist's reading. External Record Review External record reviewed: Office record, Outpatient record, Prior outpatient labs and Primary care record Prescription Management I considered prescription management with: Pain Medication Chronic Conditions Patient?s care impacted by: Diabetes Discharge Plan Discharge Clinical Impression: Nausea & vomiting, Abdominal pain Patient Disposition: Home, Self-Care Instructions: Acute Nausea and Vomiting (ED), Abdominal Pain (ED) Additional Instructions: Your blood work showed you were dehydrated. your CT scan is unremarkable. Please drink plenty of fluids at home. Practice a bland diet, avoid spicy eduardo ds, sweets, chocolate, caffeine Zofran as antinausea medication take as needed If symptoms recur, persist or worsen, you are unable to eat or drink return to the emergency department Prescriptions: New ondansetron 4 mg tablet,disintegrating 4 mg PO Q8H PRN (Reason: nausea and vomiting) Qty: 10 0RF No Action (DME) walker Misc See Rx Instructions .Route Qty: 1 0RF Rx Instructions: As directed (DME) Aircast off loading boot Kit See Rx Instructions .Route Qty: 1 0RF Rx Instructions: As directed (DME) elastic bandage 6 X 1.8 -yard bandage See Rx Instructions .Route Qty: 6 0RF Rx Instructions: As directed (DME) gauze bandage [Band-Aid Gauze Pads] 4 X 4 bandage See Rx Instructions .Route Qty: 25 3RF Rx Instructions: As directed (DME) sterile gauze 4x4 See Rx Instructions .Route .MEDSUPPLY Qty: 40 3RF Rx Instructions: Apply to left foot wound every other day (DME) calcium alginate ag 4x4 pad See Rx Instructions .Route .MEDSUPPLY Qty: 5 2RF Rx Instructions: Apply to wound beds every other day quetiapine 25 mg tablet 0.5 tab PO BEDTIME insulin glargine [Lantus U-100 Insulin] 100 unit/mL solution 50 unit subcut BID Rx Instructions: 50 units at lunch and 100 units at bedtime isosorbide mononitrate 30 mg tablet extended release 24 hr 1 tab PO DAILY thiamine HCl (vitamin B1) 100 mg tablet 1 tab PO DAILY pantoprazole 40 mg tablet,delayed release (DR/EC) 1 tab PO BID@0630,1630 losartan 25 mg tablet 1 tab PO DAILY gabapentin 300 mg capsule 1 cap PO TID montelukast 10 mg tablet 1 tab PO BEDTIME insulin lispro 100 unit/mL solution 30 unit subcut TIDAC Rx Instructions: sliding scale zolpidem 10 mg tablet 1 tab PO BEDTIME PRN (Reason: insomnia) hydroxyzine HCl 10 mg tablet 1 tab PO QID PRN (Reason: itch) loratadine 10 mg tablet 1 tab PO DAILY ezetimibe 10 mg tablet 1 tab PO DAILY rosuvastatin 40 mg tablet 1 tab PO BEDTIME metoprolol tartrate 25 mg tablet 1 tab PO BID oxycodone [OxyContin] 20 mg tablet,oral only,ext.rel.12 hr 1 tab PO BID PRN (Reason: Severe Pain (Scale Score 7-10)) ondansetron HCl 4 mg tablet 1 tab PO TID PRN (Reason: nausea) meclizine 25 mg tablet 1 tab PO TID PRN (Reason: dizziness) (DME) jw Morgan See Rx Instructions .Route Qty: 1 0RF Rx Instructions: As directed Xarelto 20 mg tablet 1 tab PO DAILY@1700 aspirin 81 mg tablet,delayed release (DR/EC) 1 tab PO DAILY tamsulosin 0.4 mg capsule 1 cap PO DAILY venlafaxine 100 mg tablet 1 tab PO BID baclofen 10 mg tablet 1 tab PO TID furosemide 20 mg tablet 1 tab PO DAILY prednisone 20 mg Tablet 60 mg PO DAILY Qty: 15 0RF amoxicillin-pot clavulanate 875-125 mg tablet 1 tab PO Q12H Qty: 14 0RF doxycycline hyclate 100 mg capsule 100 mg PO BID Qty: 14 0RF valacyclovir [Valtrex] 1 gram tablet 1,000 mg PO Q8H Qty: 21 0RF oxycodone 5 mg tablet 10 mg PO Q4H Qty: 15 0RF Referrals: Physician,Unknown J [Primary Care Provider] - 3 days
[2022-12-26 12:08] LABS: Appearance Urine Clear; Color Urine Yellow; Glucose Urine UA >=1000 mg/dL (Negative); Leukocyte Esterase Urine Negative (Negative); Nitrite Urine Negative (Negative); Specific Gravity - Urine >= 1.030 (1.005-1.025); UMIC TRIGGER UACC YES; Urine Blood Negative (Negative); Urine Ketones 40 mg/dL (Negative); Urine Protein 30 (1+) mg/dL (Neg-Trace)
[2022-12-26 12:13] LABS: Bacteria Urine None Seen (None Seen); Hyaline Casts Urine 0-2 /LPF (0-2); RBC Urine 0-2 /HPF (0-2); Squamous Epithelial Cell Urine 0-2 /HPF (0-2); WBC Urine 0-5 /HPF (0-5)
[2022-12-26 12:21] LABS: COVID-19 Test Negative (Negative); IDNOW Serial# 9DB6401D; IDNOW Serial# BCCEAD1C; Influenza A Negative (Negative); Influenza B2 Negative (Negative)
[2022-12-26] MEDS: 0.9 % Sodium Chloride 1,000 ML 999 ML IV (12:27)
[2022-12-26] MEDS: ondansetron HCL 4 MG/2 ML VIAL IVPUSH (12:27)
[2022-12-26] MEDS: Famotidine/PF 20 MG/2 ML VIAL IVPUSH (12:28)
[2022-12-26] MEDS: fentaNYL citrate/PF 100 MCG/2 ML VIAL 50 MCG IVPUSH (12:38)
[2022-12-26 13:15] LABS: Basophils Percent Auto 0.2 % (0-2); Eosinophils Percent Auto 0.1 % (0-4); Hematocrit 40.9 % (42.0-52.0); Hemoglobin 14.2 g/dl (14.0-18.0); Imm Gran Abs Auto 0.04 X10*3/uL (0.00-0.03); Imm Gran Pct Auto 0.3 % (0.0-0.4); Lymphocytes Absolute Auto 0.3 X10*3/uL (1.2-4.9); Lymphocytes Percent Auto 2.7 % (20-40); MANUAL DIFF FLAG SCAN; Mean Corpuscular HGB Conc 34.7 g/dl (31.0-36.0); Mean Corpuscular Hemoglobin 29.2 pg (27.0-33.0); Mean Platelet Volume 10.1 fL (9.4-12.4); Monocytes Absolute Auto 0.3 X10*3/uL (0.1-1.2); Monocytes Percent Auto 2.1 % (2-11); Neutrophils Absolute Auto 11.4 x10*3/uL (2.0-8.3); Neutrophils Percent Auto 94.6 % (45-73); Platelet Count 251 X10*3/uL (160-400); Red Blood Count 4.87 X10*6/uL (4.60-5.80); Red Cell Distribution Width 14.1 % (11.0-16.0); SCAN SMEAR FLAG 1; White Blood Count 12.1 X10*3/uL (4.8-10.8)
[2022-12-26 13:43] LABS: SLIDE REVIEW VERIFIED
[2022-12-26 13:46] LABS: Alanine Aminotransferase 20 U/L (0-40); Albumin Level 4.2 g/dL (3.5-5.0); Alkaline Phosphatase 93 U/L (39-117); Aspartate Amino Transferase 18 U/L (5-37); Bilirubin Direct 0.3 mg/dL (0.0-0.5); Bilirubin Total 1.2 mg/dL (0.0-1.0); Blood Urea Nitrogen 12 mg/dL (9-16); Calcium 8.8 mg/dL (8.4-10.2); Creatinine Clr Calc Pharmacy 118.6; Estimated Glomerular Filt Rate > 60; Glucose Random 354 mg/dL (60-115); Lipase 5 U/L (8-78); Total Protein 6.7 g/dL (6.5-8.0)
[2022-12-26 13:52] LABS: Anion Gap 21 (12-20); Carbon Dioxide 22 mmol/L (22-29); Chloride 100 mmol/L (96-108); Potassium 3.8 mmol/L (3.3-5.1); Sodium 139 mmol/L (135-145)
[2022-12-26] MEDS: iohexoL 350 MG/ML 100 ML INFUS..BTL IV (14:05)
[2022-12-26 14:59] VITALS: BP 163/84; PULSE 105; RESP 13; TEMP 37.6; O2SAT 99
[2022-12-26 14:59] LABS: Glucose, Whole Blood 291 mg/dL (60-115)
[2022-12-26 15:53] LABS: Amphetamine Screen Urine Not Detected (Not Detect); Barbiturates, Urine Not Detected (Not Detect); Benzodiazepines Screen Urine Not Detected (Not Detect); Cannabinoid Screen Urine POSITIVE (Not Detect); Cocaine Screen Urine Not Detected (Not Detect); Fentanyl, urine Not Detected (Not Detect); Opiate Screen Urine Not Detected (Not Detect); Phencyclidine Screen Urine Not Detected (Not Detect)
== END 2022-12-26 17:19 | disposition home or self-care (01) ==
PROVIDERS: Physician Assistant; Emergency Provider Student in an Organized Health Care Education/Training Program
DX: R10.13 Epigastric pain (principal); R11.2 Nausea with vomiting, unspecified; I48.91 Unspecified atrial fibrillation; I25.10 Atherosclerotic heart disease of native coronary artery without angina pectoris; I10 Essential (primary) hypertension; Z20.822 Contact with and (suspected) exposure to COVID-19; Z20.828 Contact with and (suspected) exposure to other viral communicable diseases; Z79.01 Long term (current) use of anticoagulants; Z79.899 Other long term (current) drug therapy
CPT/HCPCS: 74177; 80048; 80076; 80307; 81001; 82947; 83690; 83735; 85025; 87502; 87635; 93005; 96361; 96374; 96375; 99284; 99285; J2405; J3010; Q9967

== ENCOUNTER → 2023-01-28 13:37 | Outpatient (BNVA) | payer OTHER, SELFPAY | PROVIDERS: Visit Provider Surgery | DX: L03.032 Cellulitis of left toe (principal); L02.612 Cutaneous abscess of left foot; E11.65 Type 2 diabetes mellitus with hyperglycemia; I25.10 Atherosclerotic heart disease of native coronary artery without angina pectoris; I10 Essential (primary) hypertension; Z89.412 Acquired absence of left great toe; Z89.429 Acquired absence of other toe(s), unspecified side | CPT/HCPCS: 11055; 99212 ==

== ENCOUNTER 2023-04-29 08:02 | Emergency (ER) | payer OTHER, SELFPAY ==
[2023-04-29 08:04] VITALS: BP 123/62; PULSE 80; RESP 16; TEMP 36.1; O2SAT 96; BMI 41.4
--- NOTE | 2023-04-29 09:04 | ED.SKABFB ---
HPI - Skin/Abscess/Foreign Bdy General Chief complaint: Skin/Abscess/Foreign Body Stated complaint: Groin infection Time Seen by Provider: 04/29/23 08:50 Source: patient, family and old records reviewed Mode of arrival: ambulatory Limitations: no limitations History of Present Illness HPI narrative: 62 yo male with history of DM, hx osteomyelitis s/p left 2nd toe amputation in the past, CAD, Afib on Xarelto, asthma, GERD, obesity, hx cellulitis of the face [place] [facility] [place] who presents to the ER for evaluation of painful, red and swollen skin in his suprapubic area that has been worsening for the last 4 days. He states it started off as a small pustule and has been getting bigger, more red and more painful for the last 4 days. It now has multiple pustules in the center without discharge or drainage. He reports low grade fevers of 99 at home along with nausea. The pain is radiating down into the right side of his scrotum without any skin changes of swelling of his scrotal area. He states his glucose has been in the 200 range at home. MD complaint: rash, abscess/boil and discoloration Onset (ago): day(s) (4) Tetanus up to date: yes Location: genitals Severity: severe Severity scale (1-10): 10 Quality: stabbing and aching Pain Consistency: constant Relieving factors: none Exacerbating factors: movement Associated symptoms: fever and nausea Treatments prior to arrival: none Related Data Home Medications Medication Instructions Recorded Confirmed ezetimibe 10 mg tablet 1 tab PO DAILY 01/03/22 01/28/23 gabapentin 300 mg capsule 1 cap PO TID 01/03/22 01/28/23 hydroxyzine HCl 10 mg tablet 1 tab PO QID PRN itch 01/03/22 01/28/23 insulin glargine 100 unit/mL 50 unit subcut BID 01/03/22 01/28/23 subcutaneous solution (Lantus U-100 Insulin) insulin lispro 100 unit/mL 30 unit subcut TIDAC 01/03/22 01/28/23 subcutaneous solution isosorbide mononitrate 30 mg 1 tab PO DAILY 01/03/22 01/28/23 tablet,extended release 24 hr loratadine 10 mg tablet 1 tab PO DAILY 01/03/22 01/28/23 losartan 25 mg tablet 1 tab PO DAILY 01/03/22 01/28/23 meclizine 25 mg tablet 1 tab PO TID PRN dizziness 01/03/22 01/28/23 metoprolol tartrate 25 mg tablet 1 tab PO BID 01/03/22 01/28/23 montelukast 10 mg tablet 1 tab PO BEDTIME 01/03/22 01/28/23 ondansetron HCl 4 mg tablet 1 tab PO TID PRN nausea 01/03/22 01/28/23 oxycodone 20 mg tablet,crush 1 tab PO BID PRN Severe Pain 01/03/22 01/28/23 resistant,extended release 12 hr (Scale Score 7-10) (OxyContin) pantoprazole 40 mg tablet,delayed 1 tab PO BID@0630,1630 01/03/22 01/28/23 release quetiapine 25 mg tablet 0.5 tab PO BEDTIME 01/03/22 01/28/23 rosuvastatin 40 mg tablet 1 tab PO BEDTIME 01/03/22 01/28/23 thiamine HCl (vitamin B1) 100 mg 1 tab PO DAILY 01/03/22 01/28/23 tablet zolpidem 10 mg tablet 1 tab PO BEDTIME PRN insomnia 01/03/22 01/28/23 rivaroxaban 20 mg tablet (Xarelto) 1 tab PO DAILY@1700 07/23/22 01/28/23 aspirin 81 mg tablet,delayed 1 tab PO DAILY 08/04/22 01/28/23 release tamsulosin 0.4 mg capsule 1 cap PO DAILY 08/04/22 01/28/23 baclofen 10 mg tablet 1 tab PO TID 11/13/22 01/28/23 furosemide 20 mg tablet 1 tab PO DAILY 11/13/22 01/28/23 venlafaxine 100 mg tablet 1 tab PO BID 11/13/22 01/28/23 Previous Rx's Medication Instructions Recorded walker #1 ea 01/11/22 walker #1 ea 01/15/22 Band-Aid Gauze Pads 4 X 4 #25 ea 04/16/22 bandage (gauze bandage) elastic bandage 6 X 1.8 yard #6 ea 04/16/22 off loading boot (Aircast off #1 ea 04/16/22 loading boot) calcium alginate ag #5 ea 04/23/22 sterile gauze #40 ea 04/23/22 amoxicillin 875 mg-potassium 1 tab PO Q12H #14 tabs 11/16/22 clavulanate 125 mg tablet doxycycline hyclate 100 mg capsule 100 mg PO BID #14 caps 11/16/22 oxycodone 5 mg tablet 10 mg PO Q4H #15 tabs 11/16/22 prednisone 20 mg tablet 60 mg PO DAILY #15 tabs 11/16/22 valacyclovir 1 gram tablet 1,000 mg PO Q8H #21 tabs 11/16/22 (Valtrex) ondansetron 4 mg disintegrating 4 mg PO Q8H PRN nausea and 12/26/22 tablet vomiting #10 tabs cephalexin 500 mg capsule 500 mg PO Q6H 10 days #40 caps 04/29/23 doxycycline hyclate 100 mg tablet 100 mg PO BID #20 tabs 04/29/23 oxycodone 5 mg tablet 5 mg PO Q6H PRN severe pain (scale 04/29/23 score 7-10) #6 tabs Allergies Allergy/AdvReac Type Severity Reaction Status Date / Time morphine AdvReac Intermediate Hallucinati Verified 01/28/23 14:00 ons Review of Systems Review of Systems: Yes all other systems are reviewed and are negative [facility] Past Medical History Medical History Afib Amputation of left great toe Asthma CAD (coronary artery disease) Cellulitis Diabetes DMII (diabetes mellitus, type 2) FHx: bilateral hip replacements Hyperglycemia Hypertension Lower limb amputation, great toe Orthopedic hardware present PAD (peripheral artery disease) Surgical History H/O bilateral hip replacements History of amputation of great toe (01/07/22) History of amputation of toe (07/29/22) History of ankle surgery History of back surgery History of neck surgery S/P quadruple vessel bypass Family History Family History Other No family history of coronary artery disease Social History Social History Household Members: Family Household Members Other:: 3 Housing: Apartment Are you a primary director of critical care to a significant other at home: No Do you presently have visiting nurse or other home services: No Alcohol intake: current Alcohol intake frequency: a few times a month Patient Tobacco Use Status: Former Tobacco user Quit Date: 30 years ago Tobacco use type: Cigarette Smoked in Last 30 Days: No Second Hand Smoke Exposure: No Use of substances other than those prescribed or required for medical reasons: No Advance Directives: No Advance Directives Information Provided: Yes Advance Directives Date on File: 01/04/22 service: Yes Current occupational status: disabled Physical Exam Vital Signs: Vital Signs: Last Vital Signs Temp 97.8 F 04/29/23 12:00 Pulse 75 04/29/23 13:11 Resp 18 04/29/23 13:11 BP 102/56 L 04/29/23 13:11 Pulse Ox 100 04/29/23 13:11 O2 Del Method Room Air 04/29/23 13:11 BMI result Body Mass Index 41.4 Appearance: Alert. Oriented X3. No acute distress. Head: normocephalic, atraumatic. Eyes: Pupils equal, round and reactive to light. ENT: Pharynx normal. No tonsillar swelling or exudate. Neck: Normal inspection. Neck supple. CVS: Normal heart rate and rhythm. Pulses normal. Respiratory: No respiratory distress. Breath sounds normal. Abdomen: Obese, Soft and nontender. +BS x4 : suprapubic area with a large area of erythema and tenderness, induration w/ multiple pustules centrally, no expression of purulent material. normal inspection of the penis and scrotum. mild tenderness of the right side of the scrotum posteriorly without associated skin changes. Skin: Skin warm and dry. Normal skin color. Normal skin turgor. Extremities: No lower extremity edema. No joint swelling. Neuro/psych: Oriented X 3. No motor deficit. No sensory deficit. CN II-XII intact. Normal speech and cognition. Medications Administered Discontinued Medications Generic Name Dose Route Start Last Admin Trade Name Freq PRN Reason Stop Dose Admin Hydromorphone HCl 1 mg 04/29/23 09:01 04/29/23 09:38 Hydromorphone Hcl 1 Mg/Ml Syringe IVPUSH 04/29/23 09:02 1 mg ONCE ONE Administration Protocol Hydromorphone HCl 1 mg 04/29/23 11:02 04/29/23 11:13 Hydromorphone Hcl 1 Mg/Ml Syringe IVPUSH 04/29/23 11:03 1 mg ONCE ONE Administration Protocol Sodium Chloride 1,000 mls @ 999 mls/hr 04/29/23 09:15 04/29/23 11:14 Ns IVCONT 04/29/23 10:15 Infused .Q1H1M WILLIAM Infusion Piperacillin Sod/Tazobactam 50 mls @ 100 mls/hr 04/29/23 09:01 04/29/23 10:07 Sod 3.375 gm/ Sodium Chloride IV 04/29/23 09:30 Infused ONCE ONE Infusion Vancomycin HCl 2,000 mg in 500 mls @ 250 mls/hr 04/29/23 09:01 04/29/23 10:06 Vancomycin/Ns IV 04/29/23 11:00 250 mls/hr ONCE ONE Administration Iohexol 100 ml 04/29/23 10:51 04/29/23 10:51 Iohexol 350 Mg/Ml 100 Ml Infus..Btl IV 04/29/23 10:52 100 ml ONCE ONE Administration Ondansetron HCl 4 mg 04/29/23 09:01 04/29/23 09:38 Ondansetron Hcl 4 Mg/2 Ml Vial IVPUSH 04/29/23 09:02 4 mg ONCE ONE Administration Medical Decision Making Medical Decision Making MDM Narrative: 62 yo male with history of DM, hx osteomyelitis s/p left 2nd toe amputation in the past, CAD, Afib on Xarelto, asthma, GERD, obesity, hx cellulitis of the face requiring [place] [facility] [place] who presents to the ER for evaluation of painful, red and swollen skin in his suprapubic area that has been worsening for the last 4 days. No extension to the scrotal area. He is afebrile with stable VS on arrival. Labs show WBC 11.1 with normal lactic acid. He was given empitic IV abx for broad coverage given location and history of DM. CT scan was done to look for abscess vs extent of cellulitis. CT is showing no cellulitic changes or abscess. Case was d/w Dr. Meredith. Patient can be discharged on oral abx with close monitoring. Area was marked with a marker. He was instructed to monitor the area closely, follow up with PCP and come back to the ER if symptoms worsen. Comfortable w/ d/c home. patient agrees w/ plan Differential Diagnosis Differential Diagnoses: The differential diagnosis associated with the presentation includes abdominal wall cellulitis, carbuncle, abscess, Taz's gangrene Admission/Observation Consideration of admission/observation: Escalation of care including admission/observation considered diabetic male with pelvic area cellulitis, leukocytosis. considered admission for continuation of IV abx. Lab Data MDM Lab Attestation statement: I reviewed the patient's lab results. mild leukocytosis, hyperglycemia without anion gap 04/29/23 09:23 04/29/23 09:23 Labs: Lab Results 04/29/23 04/29/23 04/29/23 Range/Units 09:23 09:23 09:23 WBC 11.1 H (4.8-10.8) X10*3/uL RBC 4.20 L (4.60-5.80) X10*6/uL Hgb 11.9 L (14.0-18.0) g/dl Hct 34.9 L (42.0-52.0) % MCV 83.1 (80.0-98.0) fL MCH 28.3 (27.0-33.0) pg MCHC 34.1 (31.0-36.0) g/dl RDW 13.1 (11.0-16.0) % Plt Count 226 (160-400) X10*3/uL MPV 10.3 (9.4-12.4) fL Immature Gran % (Auto) 0.4 (0.0-0.4) % Neut % (Auto) 66.7 (45-73) % Lymph % (Auto) 22.9 (20-40) % O'Brien % (Auto) 8.7 (2-11) % Eos % (Auto) 0.9 (0-4) % Baso % (Auto) 0.4 (0-2) % Lymph # (Auto) 2.5 (1.2-4.9) X10*3/uL O'Brien # (Auto) 1.0 (0.1-1.2) X10*3/uL Eos # (Auto) 0.1 (0.0-0.4) X10*3/uL Baso # (Auto) 0.0 (0.0-0.2) X10*3/uL Abs Immat Gran (auto) 0.04 H (0.00-0.03) X10*3/uL Absolute Neuts (auto) 7.4 (2.0-8.3) x10*3/uL Absolute Nucleated RBC 0.000 (0.0-0.012) X10*3/uL Nucleated RBC % (auto) 0.0 (0.0-0.2) /100WBC ESR (0-15) MM/HR Sodium 134 L (135-145) mmol/L Potassium 4.1 (3.3-5.1) mmol/L Chloride 102 (96-108) mmol/L Carbon Dioxide 22 (22-29) mmol/L Anion Gap 14 (12-20) BUN 14 (9-16) mg/dL Creatinine 0.90 (0.5-1.4) mg/dL Estim Creat Clear Calc 108.8 Estimated GFR > 60 Random Glucose 222 H (60-115) mg/dL Lactic Acid 1.0 (0.5-2.0) mmol/L Calcium 9.0 (8.4-10.2) mg/dL Magnesium 2.0 (1.6-2.6) mg/dL Total Bilirubin 0.5 (0.0-1.0) mg/dL Direct Bilirubin 0.1 (0.0-0.5) mg/dL AST 16 (5-37) U/L ALT 13 (0-40) U/L Alkaline Phosphatase 78 (39-117) U/L C-Reactive Protein 3.69 H (< or = 0.50) mg/dL Total Protein 6.4 L (6.5-8.0) g/dL Albumin 3.4 L (3.5-5.0) g/dL 04/29/23 Range/Units 09:23 WBC (4.8-10.8) X10*3/uL RBC (4.60-5.80) X10*6/uL Hgb (14.0-18.0) g/dl Hct (42.0-52.0) % MCV (80.0-98.0) fL MCH (27.0-33.0) pg MCHC (31.0-36.0) g/dl RDW (11.0-16.0) % Plt Count (160-400) X10*3/uL MPV (9.4-12.4) fL Immature Gran % (Auto) (0.0-0.4) % Neut % (Auto) (45-73) % Lymph % (Auto) (20-40) % O'Brien % (Auto) (2-11) % Eos % (Auto) (0-4) % Baso % (Auto) (0-2) % Lymph # (Auto) (1.2-4.9) X10*3/uL O'Brien # (Auto) (0.1-1.2) X10*3/uL Eos # (Auto) (0.0-0.4) X10*3/uL Baso # (Auto) (0.0-0.2) X10*3/uL Abs Immat Gran (auto) (0.00-0.03) X10*3/uL Absolute Neuts (auto) (2.0-8.3) x10*3/uL Absolute Nucleated RBC (0.0-0.012) X10*3/uL Nucleated RBC % (auto) (0.0-0.2) /100WBC ESR 34 H (0-15) MM/HR Sodium (135-145) mmol/L Potassium (3.3-5.1) mmol/L Chloride (96-108) mmol/L Carbon Dioxide (22-29) mmol/L Anion Gap (12-20) BUN (9-16) mg/dL Creatinine (0.5-1.4) mg/dL Estim Creat Clear Calc Estimated GFR Random Glucose (60-115) mg/dL Lactic Acid (0.5-2.0) mmol/L Calcium (8.4-10.2) mg/dL Magnesium (1.6-2.6) mg/dL Total Bilirubin (0.0-1.0) mg/dL Direct Bilirubin (0.0-0.5) mg/dL AST (5-37) U/L ALT (0-40) U/L Alkaline Phosphatase (39-117) U/L C-Reactive Protein (< or = 0.50) mg/dL Total Protein (6.5-8.0) g/dL Albumin (3.5-5.0) g/dL Independent Interpretation I performed an independent interpretation of an: CT Scan Interpretation: CT without visible fat stranding or fluid collection in the pelvic area, agree w/ radiology read Radiology Impression Discussion of test interpretation with radiology: I have reviewed the radiologist's reading. Radiologist Impression: CT/CT abdomen pelvis w IV con IMPRESSION: 1.? No acute abnormality. ? 2.? Stable chronic changes in the abdomen and pelvis. ? 3.? No CT findings to suggest cellulitis. Independent Historian Clinical information obtained from an independent historian. History obtained from or confirmed by: Spouse External Record Review External record reviewed: Inpatient record, Office record, Outpatient record, Prior outpatient labs and Prior outpatient radiology Prescription Management I considered prescription management with: Pain Medication and Antibiotic Chronic Conditions Patient?s care impacted by: Diabetes and Other (obesity) Critical Care Time Critical Care Time Critical Care Time: Yes Total Critical Care Time: 36 Attestation: I have personally provided critical care time exclusive of time spent on separately billable procedures. Time includes review of lab data, radiology results, discussion with consultants, and monitoring for potential decompensation. Intervention performed as documented. Discharge Plan Discharge Clinical Impression: Cellulitis Patient Disposition: Home, Self-Care Instructions: Cellulitis (DC), Warm Compress or Soak (ED) Additional Instructions: Your lab workup and CT scan today were reassuring. Take the prescribed antibiotics as directed, complete the entire course and do not miss any doses Use warm compresses to the area several times per day Follow up with your primary care doctor If you develop new or worsening symptoms call 911 or come back to the ER for further evaluation. Prescriptions: New doxycycline hyclate 100 mg tablet 100 mg PO BID Qty: 20 0RF cephalexin 500 mg capsule 500 mg PO Q6H 10 Days Qty: 40 0RF oxycodone 5 mg tablet 5 mg PO Q6H PRN (Reason: severe pain (scale score 7-10)) Qty: 6 0RF Rx Instructions: Partial Fill upon patient request. No Action (DME) walker Misc See Rx Instructions .Route Qty: 1 0RF Rx Instructions: As directed (DME) Aircast off loading boot Kit See Rx Instructions .Route Qty: 1 0RF Rx Instructions: As directed (DME) elastic bandage 6 X 1.8 -yard bandage See Rx Instructions .Route Qty: 6 0RF Rx Instructions: As directed (DME) gauze bandage [Band-Aid Gauze Pads] 4 X 4 bandage See Rx Instructions .Route Qty: 25 3RF Rx Instructions: As directed (DME) sterile gauze 4x4 See Rx Instructions .Route .MEDSUPPLY Qty: 40 3RF Rx Instructions: Apply to left foot wound every other day (DME) calcium alginate ag 4x4 pad See Rx Instructions .Route .MEDSUPPLY Qty: 5 2RF Rx Instructions: Apply to wound beds every other day quetiapine 25 mg tablet 0.5 tab PO BEDTIME insulin glargine [Lantus U-100 Insulin] 100 unit/mL solution 50 unit subcut BID Rx Instructions: 50 units at lunch and 100 units at bedtime isosorbide mononitrate 30 mg tablet extended release 24 hr 1 tab PO DAILY thiamine HCl (vitamin B1) 100 mg tablet 1 tab PO DAILY pantoprazole 40 mg tablet,delayed release (DR/EC) 1 tab PO BID@0630,1630 losartan 25 mg tablet 1 tab PO DAILY gabapentin 300 mg capsule 1 cap PO TID montelukast 10 mg tablet 1 tab PO BEDTIME insulin lispro 100 unit/mL solution 30 unit subcut TIDAC Rx Instructions: sliding scale zolpidem 10 mg tablet 1 tab PO BEDTIME PRN (Reason: insomnia) hydroxyzine HCl 10 mg tablet 1 tab PO QID PRN (Reason: itch) loratadine 10 mg tablet 1 tab PO DAILY ezetimibe 10 mg tablet 1 tab PO DAILY rosuvastatin 40 mg tablet 1 tab PO BEDTIME metoprolol tartrate 25 mg tablet 1 tab PO BID oxycodone [OxyContin] 20 mg tablet,oral only,ext.rel.12 hr 1 tab PO BID PRN (Reason: Severe Pain (Scale Score 7-10)) ondansetron HCl 4 mg tablet 1 tab PO TID PRN (Reason: nausea) meclizine 25 mg tablet 1 tab PO TID PRN (Reason: dizziness) (DME) jw Misc See Rx Instructions .Route Qty: 1 0RF Rx Instructions: As directed Xarelto 20 mg tablet 1 tab PO DAILY@1700 aspirin 81 mg tablet,delayed release (DR/EC) 1 tab PO DAILY tamsulosin 0.4 mg capsule 1 cap PO DAILY venlafaxine 100 mg tablet 1 tab PO BID baclofen 10 mg tablet 1 tab PO TID furosemide 20 mg tablet 1 tab PO DAILY prednisone 20 mg Tablet 60 mg PO DAILY Qty: 15 0RF amoxicillin-pot clavulanate 875-125 mg tablet 1 tab PO Q12H Qty: 14 0RF doxycycline hyclate 100 mg capsule 100 mg PO BID Qty: 14 0RF valacyclovir [Valtrex] 1 gram tablet 1,000 mg PO Q8H Qty: 21 0RF oxycodone 5 mg tablet 10 mg PO Q4H Qty: 15 0RF ondansetron 4 mg tablet,disintegrating 4 mg PO Q8H PRN (Reason: nausea and vomiting) Qty: 10 0RF
--- NOTE | 2023-04-29 09:26 | PC.NURSE ---
beeft red area on lower abd with central white discoloration. appearance is like mult sml pustules. tender to touch. no drainage at this time. pt is aware of plan of care. c/o pain in testies but they appear WNL.
[2023-04-29 11:15] VITALS: BP 99/47; PULSE 73; RESP 18; TEMP 37.1; O2SAT 97
[2023-04-29 12:00] VITALS: BP 90/51; PULSE 71; RESP 12; TEMP 36.6; O2SAT 95
[2023-04-29 13:11] VITALS: BP 102/56; PULSE 75; RESP 18; O2SAT 100
== END 2023-04-29 14:09 | disposition home or self-care (01) ==
PROVIDERS: Emergency Provider Emergency Medicine Emergency Medical Services
DX: L03.90 Cellulitis, unspecified (principal); I48.91 Unspecified atrial fibrillation; I25.10 Atherosclerotic heart disease of native coronary artery without angina pectoris; Z79.01 Long term (current) use of anticoagulants
CPT/HCPCS: 36415; 74177; 80048; 80076; 83605; 83735; 85025; 85652; 86140; 87040; 96361; 96374; 96375; 96376; 99284; J1170; J2405; J2543; J3370; Q9967

== ENCOUNTER 2023-04-30 10:59 | Inpatient (IN) | payer OTHER, SELFPAY ==
[2023-04-30 11:39] VITALS: BP 100/55; PULSE 92; RESP 18; TEMP 37.1; O2SAT 95; BMI 41.4
--- NOTE | 2023-04-30 11:41 | ED_ITS ---
HPI - General Adult General Chief complaint: General Medical Stated complaint: Bladder Infection Time Seen by Provider: 04/30/23 13:08 Source: patient and family Mode of arrival: ambulatory Limitations: no limitations History of Present Illness HPI narrative: Patient was seen yesterday for a abscess/necrotic area in the perineum. He had a CT which was essentially normal. Patient is back with increasing pain, and spreading cellulitis Onset (ago): day(s) Pain Consistency: constant Related Data Home Medications Medication Instructions Recorded Confirmed ezetimibe 10 mg tablet 1 tab PO DAILY 01/03/22 05/15/23 gabapentin 300 mg capsule 1 cap PO TID 01/03/22 05/15/23 insulin glargine 100 unit/mL 50 unit subcut QPM 01/03/22 05/15/23 subcutaneous solution (Lantus U-100 Insulin) insulin lispro 100 unit/mL 40 unit subcut TIDAC 01/03/22 05/15/23 subcutaneous solution isosorbide mononitrate 30 mg 1 tab PO DAILY 01/03/22 05/15/23 tablet,extended release 24 hr loratadine 10 mg tablet 1 tab PO DAILY 01/03/22 05/15/23 losartan 25 mg tablet 1 tab PO DAILY 01/03/22 05/15/23 meclizine 25 mg tablet 1 tab PO TID 01/03/22 05/15/23 montelukast 10 mg tablet 1 tab PO BEDTIME 01/03/22 05/15/23 ondansetron HCl 4 mg tablet 1 tab PO TID PRN nausea 01/03/22 05/15/23 oxycodone 20 mg tablet,crush 1 tab PO BID PRN Severe Pain 01/03/22 05/15/23 resistant,extended release 12 hr (Scale Score 7-10) (OxyContin) pantoprazole 40 mg tablet,delayed 1 tab PO BID@0630,1630 01/03/22 05/15/23 release rosuvastatin 40 mg tablet 1 tab PO BEDTIME 01/03/22 05/15/23 thiamine HCl (vitamin B1) 100 mg 1 tab PO DAILY 01/03/22 05/15/23 tablet zolpidem 10 mg tablet 1 tab PO BEDTIME 01/03/22 05/15/23 rivaroxaban 20 mg tablet (Xarelto) 1 tab PO DAILY@1700 07/23/22 05/15/23 aspirin 81 mg tablet,delayed 1 tab PO DAILY 08/04/22 05/15/23 release tamsulosin 0.4 mg capsule 1 cap PO DAILY 08/04/22 05/15/23 baclofen 10 mg tablet 1 tab PO TID 11/13/22 05/15/23 furosemide 20 mg tablet 1 tab PO BID 11/13/22 05/15/23 venlafaxine 100 mg tablet 1 tab PO BID 11/13/22 05/15/23 valacyclovir 1 gram tablet 1,000 mg PO Q8H PRN Cold Sores 04/30/23 05/15/23 (Valtrex) Previous Rx's Medication Instructions Recorded walker #1 ea 01/11/22 walker #1 ea 01/15/22 Band-Aid Gauze Pads 4 X 4 #25 ea 04/16/22 bandage (gauze bandage) elastic bandage 6 X 1.8 yard #6 ea 04/16/22 off loading boot (Aircast off #1 ea 04/16/22 loading boot) calcium alginate ag #5 ea 04/23/22 sterile gauze #40 ea 04/23/22 oxycodone 5 mg tablet 10 mg PO Q4H #15 tabs 11/16/22 sulfamethoxazole 800 1 tab PO BID #10 tabs 05/15/23 mg-trimethoprim 160 mg tablet (Bactrim DS) Allergies Allergy/AdvReac Type Severity Reaction Status Date / Time morphine AdvReac Intermediate Hallucinati Verified 05/15/23 13:41 ons Review of Systems Review of Systems: Yes all other systems are reviewed and are negative [facility] Past Medical History Medical History Afib Amputation of left great toe Asthma CAD (coronary artery disease) Cellulitis Diabetes DMII (diabetes mellitus, type 2) FHx: bilateral hip replacements Hyperglycemia Hypertension Lower limb amputation, great toe Orthopedic hardware present PAD (peripheral artery disease) Surgical History H/O bilateral hip replacements History of amputation of great toe (01/07/22) History of amputation of toe (07/29/22) History of ankle surgery History of back surgery History of neck surgery S/P quadruple vessel bypass Family History Family History Other No family history of coronary artery disease Social History Social History Household Members: Spouse Household Members Other:: 3 Housing: Apartment Are you a primary home care scheduler to a significant other at home: No Do you presently have visiting nurse or other home services: No Alcohol intake: never Patient Tobacco Use Status: Former Tobacco user Quit Date: 30 years ago Tobacco use type: Cigarette Second Hand Smoke Exposure: No Advance Directives Date on File: 01/04/22 service: No Current occupational status: disabled Physical Exam ED Vital Signs: Vital Signs - 24 hr 04/30/23 11:39 04/30/23 13:01 04/30/23 14:05 Temperature 98.8 F 98.5 F Pulse Rate 92 81 Respiratory Rate 18 18 22 H Blood Pressure 100/55 L 131/68 Pulse Oximetry 95 98 Oxygen Delivery Method Room Air Room Air BMI result Body Mass Index 41.4 Const Other: obese male chronically ill in pain Nutritional Appearance: obese Orientation/consciousness: oriented to person and patient oriented x3 Limitations: no limitations HENMT Head: Yes normal to inspection Ears: external ears normal General nose exam: Normal external nose present Mouth: Normal oral and palatal mucosa present and oropharynx normal Throat: Yes posterior oropharynx normal Eyes General: appearance normal, both eyes and all related structures Neck Neck: Yes normal visual inspection Chest Chest palpation & inspection: normal inspection of the chest Resp Auscultation: clear to auscultation bilaterally Cardio Jugular venous distension: no JVD Rate: regular rate Rhythm: regular rhythm Heart sounds: S1 normal heart sound present and S2 normal heart sound present GI Inspection: Yes normal to inspection Palpation (GI): Soft to palpation, nontender and No hepatosplenomegaly present Auscultation: normal bowel sounds General: Yes no CVA tenderness Back/Spine/Pelvis Back: no CVA tenderness Skin Other: perineal with black escar, swelling and redness, obvious cellulitis Neuro General: oriented to person and patient oriented x3 Cranial nerves: Yes CN's II-XII intact bilaterally Motor exam (neuro): 5/5 motor strength present throughout Extrem General: Yes normal to inspection Psych Appearance: grossly normal Course Course Course Narrative: RME- patient was seen here force yesterday. He was discharged with doxycycline and cephalexin. Patient reports he did not fill the prescriptions but did receive IV antibiotics last night. He reports his symptoms have worsened. He reports that his abscess ?burst. ? Reports increasing pain and on exam the redness appears to be spreading outside the marked areas from yesterday. Plan for labs, blood cultures Reevaluation(s) Reevaluation #1: patient worked up yesterday, now with increasing redness and pain will admit to hospitalist and consult surgery Time: 14:07 Medications Administered Discontinued Medications Generic Name Dose Route Start Last Admin Trade Name Zeeshanq PRN Reason Stop Dose Admin Acetaminophen 650 mg 04/30/23 14:21 05/03/23 20:38 Acetaminophen 325 Mg Tablet PO 650 mg Q6H PRN Administration Pain, Mild (Pain Scale 1-3) Aspirin 81 mg 05/02/23 09:00 05/05/23 07:55 Aspirin Enteric Coated 81 Mg Tablet. PO 81 mg DAILY WILLIAM Administration Atorvastatin Calcium 80 mg 05/02/23 09:00 05/05/23 07:56 Atorvastatin Calcium 80 Mg Tablet PO 80 mg DAILY WILLIAM Administration Baclofen 10 mg 05/01/23 15:00 05/05/23 07:56 Baclofen 10 Mg Tablet PO Not Given TID WILLIAM Ezetimibe 10 mg 05/02/23 09:00 05/05/23 07:56 Ezetimibe 10 Mg Tablet PO 10 mg DAILY WILLIAM Administration Furosemide 20 mg 05/01/23 21:00 05/05/23 07:55 Furosemide 20 Mg Tablet PO 20 mg BID WILLIAM Administration Protocol Gabapentin 300 mg 05/01/23 15:00 05/05/23 07:56 Gabapentin 300 Mg Capsule PO 300 mg TID WILLIAM Administration Hydromorphone HCl 1 mg 04/30/23 13:13 04/30/23 14:05 Hydromorphone Hcl 1 Mg/Ml Syringe IVPUSH 04/30/23 13:14 1 mg ONCE ONE Administration Protocol Hydromorphone HCl 0.25 mg 04/30/23 14:44 05/05/23 13:10 Hydromorphone Hcl 0.5 Mg/0.5 Ml Syringe IVPUSH 0.25 mg Q4H PRN Administration Pain, Severe (Pain Scale 7-10) Protocol Piperacillin Sod/Tazobactam 50 mls @ 100 mls/hr 04/30/23 13:12 04/30/23 14:34 Sod 3.375 gm/ Sodium Chloride IV 04/30/23 13:41 Infused ONCE ONE Infusion Piperacillin Sod/Tazobactam 100 mls @ 200 mls/hr 04/30/23 20:00 05/02/23 21:42 Sod 4.5 gm/ Sodium Chloride IV Not Given Q8H [facility] Vancomycin HCl 2,000 mg in 500 mls @ 250 mls/hr 04/30/23 15:00 04/30/23 18:07 Vancomycin/Ns IV 04/30/23 16:59 Infused ONCE ONE Infusion Vancomycin HCl 1,000 mg/ 270 mls @ 270 mls/hr 05/01/23 03:00 05/01/23 15:39 Sodium Chloride IV Not Given Q12H WILLIAM Vancomycin HCl 1,000 mg/ 270 mls @ 270 mls/hr 05/01/23 16:00 05/04/23 09:19 Sodium Chloride IV Infused Q8H [facility] Infusion Piperacillin Sod/Tazobactam 100 mls @ 200 mls/hr 05/03/23 03:00 05/05/23 11:10 Sod 4.5 gm/ Sodium Chloride IV Not Given Q8H [facility] Vancomycin HCl 1,250 mg/ 250 mls @ 166.667 mls/hr 05/04/23 19:00 05/05/23 08:12 Sodium Chloride IV Infused Q12H [facility] Infusion Insulin Glargine 50 unit 05/01/23 21:00 05/04/23 20:45 Insulin Glargine,Hum.Rec.Anlog 100 Unit/Ml 10 Ml Vial SUBCUT 50 unit BEDTIME [facility] Administration Insulin Human Lispro 5 unit 04/30/23 14:09 04/30/23 14:33 Insulin Lispro 100 Unit/Ml 3 Ml Vial SUBCUT 04/30/23 14:10 5 unit ONCE ONE Administration Insulin Human Lispro 0 unit 04/30/23 16:30 05/05/23 11:59 Insulin Lispro 100 Unit/Ml 3 Ml Vial SUBCUT 4 unit QIDACHS [facility] Administration Protocol Insulin Human Lispro 5 unit 04/30/23 16:30 05/05/23 11:59 Insulin Lispro 100 Unit/Ml 3 Ml Vial SUBCUT 5 unit QIDACHS WILLIAM Administration Isosorbide Mononitrate 30 mg 05/02/23 09:00 05/05/23 07:56 Isosorbide Mononitrate 30 Mg Tab.Er.24h PO 30 mg DAILY WILLIAM Administration Protocol Lidocaine/Epinephrine 10 ml 04/30/23 14:21 04/30/23 14:33 Lidocaine Hcl 1%/Epi 1:100,000 10 Ml Vial INFILTRATI 04/30/23 14:22 10 ml ONCE ONE Administration Loratadine 10 mg 05/02/23 09:00 05/05/23 07:55 Loratadine 10 Mg Tablet PO 10 mg DAILY WILLIAM Administration Losartan Potassium 25 mg 05/02/23 09:00 05/05/23 07:56 Losartan Potassium 25 Mg Tablet PO 25 mg DAILY WILLIAM Administration Protocol Montelukast Sodium 10 mg 05/01/23 21:00 05/04/23 20:45 Montelukast Sodium 10 Mg Tablet PO 10 mg BEDTIME WILLIAM Administration Omeprazole 20 mg 05/01/23 16:30 05/05/23 04:59 Omeprazole 20 Mg Capsule.Dr PO 20 mg BID@0630,1630 WILLIAM Administration Oxycodone HCl 5 mg 04/30/23 14:26 05/05/23 07:55 Oxycodone Hcl Immed Release 5 Mg Tablet PO 5 mg Q6H PRN Administration Pain, Moderate(Pain Scale 4-6) Rivaroxaban 20 mg 05/01/23 17:00 05/04/23 16:38 Rivaroxaban 20 Mg Tablet PO 20 mg DAILY@1700 WILLIAM Administration Sodium Chloride 3 ml 04/30/23 16:00 05/05/23 08:00 0.9 % Sodium Chloride Flush 3 Ml Syringe IVFLUSH 3 ml QSHIFT WILLIAM Administration Tamsulosin HCl 0.4 mg 05/02/23 09:00 05/05/23 07:55 Tamsulosin Hcl 0.4 Mg Capsule PO 0.4 mg DAILY WILLIAM Administration Thiamine HCl 100 mg 05/02/23 09:00 05/05/23 07:56 Thiamine Hcl 100 Mg Tablet PO 100 mg DAILY WILLIAM Administration Venlafaxine HCl 100 mg 05/01/23 21:00 05/05/23 07:55 Venlafaxine Hcl 25 Mg Tablet PO 100 mg BID WILLIAM Administration Zolpidem Tartrate 5 mg 05/01/23 21:00 05/04/23 20:43 Zolpidem Tartrate 5 Mg Tablet PO 5 mg BEDTIME WILLIAM Administration Medical Decision Making Differential Diagnosis Differential Diagnoses: The differential diagnosis associated with the presentation includes (fornier's gangrene, cellulitis, abscess, MRSA were all considered) Admission/Observation Consideration of admission/observation: Escalation of care including admission/observation considered (This 62 yo male with diabetes and worsening cellulitis and or early fornier's gangrene was immediately considered for admission) Consult Healthcare Provider Management of the patient was discussed with: Hospitalist and Termite Control Representative (Surgeon Dr. Hinton) Lab Data MDM Lab Attestation statement: I reviewed the patient's lab results. (WBC slightly elevated, glu 295 all reconized, lactic acid 2.4 but patient is not in severe sepsis at 2:10 pm) 04/30/23 11:55 04/30/23 11:55 Labs: Lab Results 04/30/23 04/30/23 04/30/23 Range/Units 11:55 11:55 11:55 WBC 11.5 H (4.8-10.8) X10*3/uL RBC 4.32 L (4.60-5.80) X10*6/uL Hgb 12.1 L (14.0-18.0) g/dl Hct 36.3 L (42.0-52.0) % MCV 84.0 (80.0-98.0) fL MCH 28.0 (27.0-33.0) pg MCHC 33.3 (31.0-36.0) g/dl RDW 13.1 (11.0-16.0) % Plt Count 227 (160-400) X10*3/uL MPV 10.3 (9.4-12.4) fL Immature Gran % (Auto) 0.3 (0.0-0.4) % Neut % (Auto) 68.4 (45-73) % Lymph % (Auto) 20.7 (20-40) % [place] % (Auto) 9.2 (2-11) % Eos % (Auto) 1.0 (0-4) % Baso % (Auto) 0.4 (0-2) % Lymph # (Auto) 2.4 (1.2-4.9) X10*3/uL [place] # (Auto) 1.1 (0.1-1.2) X10*3/uL Eos # (Auto) 0.1 (0.0-0.4) X10*3/uL Baso # (Auto) 0.1 (0.0-0.2) X10*3/uL Abs Immat Gran (auto) 0.04 H (0.00-0.03) X10*3/uL Absolute Neuts (auto) 7.9 (2.0-8.3) x10*3/uL Absolute Nucleated RBC 0.000 (0.0-0.012) X10*3/uL Nucleated RBC % (auto) 0.0 (0.0-0.2) /100WBC Sodium 134 L (135-145) mmol/L Potassium 4.2 (3.3-5.1) mmol/L Chloride 101 (96-108) mmol/L Carbon Dioxide 22 (22-29) mmol/L Anion Gap 15 (12-20) BUN 10 (9-16) mg/dL Creatinine 0.84 (0.5-1.4) mg/dL Estim Creat Clear Calc 116.5 Estimated GFR > 60 Random Glucose 295 H (60-115) mg/dL Lactic Acid 2.4 H* (0.5-2.0) mmol/L Calcium 9.4 (8.4-10.2) mg/dL Total Bilirubin 0.6 (0.0-1.0) mg/dL AST 12 (5-37) U/L ALT 11 (0-40) U/L Alkaline Phosphatase 92 (39-117) U/L Total Protein 6.4 L (6.5-8.0) g/dL Albumin 3.7 (3.5-5.0) g/dL Lipase < 4 L (8-78) U/L Independent Historian Clinical information obtained from an independent historian. History obtained from or confirmed by: Spouse Tests considered The following testing was considered but not selected: I considered obtaining another ct of the pelvis but the patient had a CT scan yesterday Chronic Conditions Patient?s care impacted by: Diabetes, Hypertension and Other (obesity) Discharge Plan Discharge Clinical Impression: Cellulitis, Diabetes Patient Disposition: Admitted As Inpatient Interventions: Admission Worksheet (ED) Last Done: 04/30/23 16:14 Discharge Date/Time: 04/30/23 16:15
[2023-04-30 13:01] VITALS: BP 131/68; PULSE 81; RESP 18; TEMP 36.9; O2SAT 98
[2023-04-30 14:05] VITALS: RESP 22
--- NOTE | 2023-04-30 14:29 | PM.IMHP ---
History of Present Illness Date of Service: 04/30/23 Attending physician on admission: Carl Jeong Chief Complaint: redness/abscess groin 61-year-old male with history of paroxysmal atrial fibrillation anticoagulated with Xarelto, mild intermittent asthma, insulin-dependent type 2 diabetes with hyperglycemia, peripheral artery disease with recent admission in 06/17 for osteomyelitis s/p amputation of the left great toe, hypertension, and coronary artery disease s/p quadruple bypass in 2018 presented to the ED earlier today for evaluation of pain, redness of the suprapubic area that has been worsening over the last 5 days. There are small pustules that have been spontaneously draining in the area. It is exquisitely painful, rated 10/10 radiating to the right scrotum. Denies fevers, chills. He was seen in the ED yesterday wtih WNC 11.1, CT abd/pelvis negative for cellulitis or abscess and was treated with IV vanco and zosyn and discharged home with doxycycline and keflex. Reviewed photos from ED yesterday, and area appeared consistent wtih carbuncle. The patient was unable to worm picker the meds last night and this morning felt the area looked worse with 10/10 so presented to the ED. On arrival, VSS. WBC 11.5. Renal function and electrolyte levels normal. Lactic acid 2.4. ED provider consult to General surgery who performed bedside incision and drainage and patient has been treated empirically with IV Zosyn, 5 units insulin, and 1 mg hydromorphone. Review of Systems Review of Systems: General: No fevers, malaise, unintentional weight loss HEENT: No blurred vision, diplopia. No sore throat, nasal congestion, rhinorrhea, sinus pain, ear pain Cardiovascular: No chest pain, palpitations, or leg edema Respiratory: No shortness of breath, wheezing, cough GI: No abdominal pain, nausea, vomiting, diarrhea, constipation, melena, hematochezia : No dysuria, hematuria, increased urinary frequency, decreased urinary output MSK: No myalgia, back pain Neuro: No headaches, weakness, paresthesias Skin: No rashes. +redness, abscess groin [facility] Medical History Afib Amputation of left great toe Asthma CAD (coronary artery disease) Cellulitis Diabetes DMII (diabetes mellitus, type 2) FHx: bilateral hip replacements Hyperglycemia Hypertension Lower limb amputation, great toe Orthopedic hardware present PAD (peripheral artery disease) Family History Other No family history of coronary artery disease Surgical History H/O bilateral hip replacements History of amputation of great toe (01/07/22) History of amputation of toe (07/29/22) History of ankle surgery History of back surgery History of neck surgery S/P quadruple vessel bypass Social History Household Members: Family Household Members Other:: 3 Housing: Apartment Are you a primary physician primary care sports medicine to a significant other at home: No Do you presently have visiting nurse or other home services: No Alcohol intake: current Alcohol intake frequency: a few times a month Patient Tobacco Use Status: Former Tobacco user Quit Date: 30 years ago Tobacco use type: Cigarette Second Hand Smoke Exposure: No Advance Directives: No Advance Directives Information Provided: Yes Advance Directives Date on File: 01/04/22 service: Yes Current occupational status: disabled Meds Allergies Allergy/AdvReac Type Severity Reaction Status Date / Time morphine AdvReac Intermediate Hallucinati Verified 01/28/23 14:00 ons Active Medications: Current Medications Acetaminophen (Acetaminophen 325 Mg Tablet) 650 mg PO Q6H PRN PRN Reason: Pain, Mild (Pain Scale 1-3) Hydromorphone HCl (Hydromorphone Hcl 1 Mg/Ml Syringe) 0.25 mg IVPUSH Q4H PRN; Protocol PRN Reason: Pain, Severe (Pain Scale 7-10) Piperacillin Sod/Tazobactam (Sod 4.5 gm/ Sodium Chloride) 100 mls @ 200 mls/hr IV Q8H WILLIAM Ondansetron HCl (Ondansetron Hcl 4 Mg/2 Ml Vial) 4 mg IVPUSH Q8H PRN PRN Reason: Nausea and Vomiting Oxycodone HCl (Oxycodone Hcl Immed Release 5 Mg Tablet) 5 mg PO Q6H PRN PRN Reason: Pain, Moderate(Pain Scale 4-6) Pharmacy Consult (Consult Rx Perform Med Rec) 1 each MISCELLANE ONCE PRN PRN Reason: Consult order Pharmacy Consult (Consult Rx Vancomycin Dosing) 1 each MISCELLANE DAILY PRN PRN Reason: Consult order Sodium Chloride (0.9 % Sodium Chloride Flush 3 Ml Syringe) 3 ml IVFLUSH [facility] Medications Medication Instructions Recorded Confirmed Last Taken Type ezetimibe 10 mg tablet 1 tab PO DAILY 01/03/22 01/28/23 11/12/22 09:00 History gabapentin 300 mg capsule 1 cap PO TID 01/03/22 01/28/23 11/12/22 09:00 History hydroxyzine HCl 10 mg tablet 1 tab PO QID PRN itch 01/03/22 01/28/23 08/02/22 History insulin glargine 100 unit/mL 50 unit subcut BID 01/03/22 01/28/23 11/12/22 09:00 History subcutaneous solution (Lantus U-100 Insulin) insulin lispro 100 unit/mL 30 unit subcut TIDAC 01/03/22 01/28/23 11/12/22 09:00 History subcutaneous solution isosorbide mononitrate 30 mg 1 tab PO DAILY 01/03/22 01/28/23 11/12/22 09:00 History tablet,extended release 24 hr loratadine 10 mg tablet 1 tab PO DAILY 01/03/22 01/28/23 11/12/22 09:00 History losartan 25 mg tablet 1 tab PO DAILY 01/03/22 01/28/23 11/12/22 09:00 History meclizine 25 mg tablet 1 tab PO TID PRN dizziness 01/03/22 01/28/23 08/02/22 History metoprolol tartrate 25 mg tablet 1 tab PO BID 01/03/22 01/28/23 11/12/22 09:00 History montelukast 10 mg tablet 1 tab PO BEDTIME 01/03/22 01/28/23 11/11/22 History ondansetron HCl 4 mg tablet 1 tab PO TID PRN nausea 01/03/22 01/28/23 08/02/22 History oxycodone 20 mg tablet,crush 1 tab PO BID PRN Severe Pain 01/03/22 01/28/23 11/12/22 09:00 History resistant,extended release 12 hr (Scale Score 7-10) (OxyContin) pantoprazole 40 mg tablet,delayed 1 tab PO BID@0630,1630 01/03/22 01/28/23 11/12/22 09:00 History release quetiapine 25 mg tablet 0.5 tab PO BEDTIME 01/03/22 01/28/23 11/11/22 History rosuvastatin 40 mg tablet 1 tab PO BEDTIME 01/03/22 01/28/23 11/11/22 History thiamine HCl (vitamin B1) 100 mg 1 tab PO DAILY 01/03/22 01/28/23 11/12/22 09:00 History tablet zolpidem 10 mg tablet 1 tab PO BEDTIME PRN insomnia 01/03/22 01/28/23 08/02/22 History rivaroxaban 20 mg tablet (Xarelto) 1 tab PO DAILY@1700 07/23/22 01/28/23 11/11/22 History aspirin 81 mg tablet,delayed 1 tab PO DAILY 08/04/22 01/28/23 11/12/22 09:00 History release tamsulosin 0.4 mg capsule 1 cap PO DAILY 08/04/22 01/28/23 11/12/22 09:00 History baclofen 10 mg tablet 1 tab PO TID 11/13/22 01/28/23 11/12/22 09:00 History furosemide 20 mg tablet 1 tab PO DAILY 11/13/22 01/28/23 11/12/22 09:00 History venlafaxine 100 mg tablet 1 tab PO BID 11/13/22 01/28/23 11/12/22 09:00 History Physical Exam Vital Signs and Narrative: Vital Signs: Last Vital Signs Temp 98.5 F 04/30/23 13:01 Pulse 81 04/30/23 13:01 Resp 22 H 04/30/23 14:05 BP 131/68 04/30/23 13:01 Pulse Ox 98 04/30/23 13:01 O2 Del Method Room Air 04/30/23 13:01 BMI result Body Mass Index 41.4 Constitutional - Awake and Alert, No apparent distress Eyes - PERRLA, EOMI Cardiovascular - S1S2, RRR, No edema Respiratory - Normal lung expansion, Normal respiratory effort, No respiratory distress, CTA bilaterally Gastrointestinal - NT / ND; +BS; No rebound or guarding Extremities - no calf tenderness bilaterally, no swelling Skin - Warm/Dry. Beefy erythema with induraction in the suprapubic region with serous drainage . see photo Neurological - Alert & oriented x3 Psychological - Appropriate affect Results Labs 04/30/23 11:55 04/30/23 11:55 Labs: Laboratory Results - last 24 hr 04/30/23 04/30/23 04/30/23 11:55 11:55 11:55 MCV 84.0 MCH 28.0 MCHC 33.3 RDW 13.1 Plt Count 227 MPV 10.3 Immature Gran % (Auto) 0.3 Neut % (Auto) 68.4 Lymph % (Auto) 20.7 [place] % (Auto) 9.2 Eos % (Auto) 1.0 Baso % (Auto) 0.4 Lymph # (Auto) 2.4 [place] # (Auto) 1.1 Eos # (Auto) 0.1 Baso # (Auto) 0.1 Abs Immat Gran (auto) 0.04 H Absolute Neuts (auto) 7.9 Absolute Nucleated RBC 0.000 Nucleated RBC % (auto) 0.0 Anion Gap 15 Estim Creat Clear Calc 116.5 Estimated GFR > 60 Random Glucose 295 H Lactic Acid 2.4 H* Calcium 9.4 Total Bilirubin 0.6 AST 12 ALT 11 Alkaline Phosphatase 92 Total Protein 6.4 L Albumin 3.7 Lipase < 4 L Assessment and Plan (1) Cellulitis: Status: Acute Plan 61-year-old male with history of paroxysmal atrial fibrillation anticoagulated with Xarelto, mild intermittent asthma, insulin-dependent type 2 diabetes with hyperglycemia, peripheral artery disease with recent admission in 06/17 for osteomyelitis s/p amputation of the left great toe, hypertension, and coronary artery disease s/p quadruple bypass in 2018 admitted for cellulitis and abscess of groin. #Acute cellulitis and abscess of groin -Bedside I&D performed by general surgery -CT yesterday was negative for cellulitis/abscess/fourniers -IV vancomycin and Zosyn -pain management using pain scale -no sepsis, follow CBC, cultures # insulin-dependent type 2 diabetes with hyperglycemia -POC glucose -Diabetic diet -dose adjusted Lantus -Humalog 5 units q.i.d. a.c. standing and sliding scale with meals # paroxysmal atrial fibrillation-rate controlled -continue Xarelto for anticoagulation -continue rate control # hypertension-reasonably controlled -continue home meds # CAD/hyperlipidemia-no anginal chest pain -continue statin, beta-dylon, baby aspirin, isosorbide -BPH -continue Flomax # chronic low back pain -continue baclofen and gabapentin DVT prophylaxis-on Xarelto Full code Patient requires inpatient stay of at least 2 midnights for management of cellulitis and abscess of groin in diabetic patietn at high risk for progression to fourniers gangrene Time Spent With Patient Time: Total time managing care of this patient today ____ minutes. Quality Stroke Does the patient have a stroke diagnosis?: No VTE Prior VTE?: No VTE Risk Level:: Medical - moderate - high VTE Device Contraindication: Treatment Not Indicated VTE Drug Contraindication: N/A - Med Ordered
--- NOTE | 2023-04-30 14:44 | PC.NURSE ---
Provider at bedside to perform I&D, pt education given
--- NOTE | 2023-04-30 15:02 | PM.CNGS ---
History of Present Illness Consult details Consult date: 04/30/23 Requesting physician: Hao Haile Narrative: 62-year-old male patient with history of diabetes well known to the surgical service with a previous history of peripheral vascular disease with toe amputations now presenting with a new abscess in the right groin. This began as a small pimple but then gradually increased into a large abscess with surrounding erythema and swelling of the testicle. He was seen in the ED yesterday and sent home on oral antibiotics. He returns today after noting increased swelling in the testicle. He reports fever and chills at home. He denies previous infections at this location. Review of Systems Review of Systems: Yes all other systems are reviewed and are negative PMFSH Past Medical History Medical History Afib Amputation of left great toe Asthma CAD (coronary artery disease) Cellulitis Diabetes DMII (diabetes mellitus, type 2) FHx: bilateral hip replacements Hyperglycemia Hypertension Lower limb amputation, great toe Orthopedic hardware present PAD (peripheral artery disease) Family History Family History Other No family history of coronary artery disease Surgical History Surgical History H/O bilateral hip replacements History of amputation of great toe (01/07/22) History of amputation of toe (07/29/22) History of ankle surgery History of back surgery History of neck surgery S/P quadruple vessel bypass Social History Social History Household Members: Family Household Members Other:: 3 Housing: Apartment Are you a primary director of health care marketing to a significant other at home: No Do you presently have visiting nurse or other home services: No Alcohol intake: never Patient Tobacco Use Status: Former Tobacco user Quit Date: 30 years ago Tobacco use type: Cigarette Smoked in Last 30 Days: No Second Hand Smoke Exposure: No Advance Directives: No Advance Directives Information Provided: Yes Advance Directives Date on File: 01/04/22 service: Yes Current occupational status: disabled Meds Allergies Allergy/AdvReac Type Severity Reaction Status Date / Time morphine AdvReac Intermediate Hallucinati Verified 01/28/23 14:00 ons Active Medications: Current Medications Acetaminophen (Acetaminophen 325 Mg Tablet) 650 mg PO Q6H PRN PRN Reason: Pain, Mild (Pain Scale 1-3) Hydromorphone HCl (Hydromorphone Hcl 0.5 Mg/0.5 Ml Syringe) 0.25 mg IVPUSH Q4H PRN; Protocol PRN Reason: Pain, Severe (Pain Scale 7-10) Piperacillin Sod/Tazobactam (Sod 4.5 gm/ Sodium Chloride) 100 mls @ 200 mls/hr IV Q8H [facility] Vancomycin HCl (Vancomycin/Ns) 2,000 mg in 500 mls @ 250 mls/hr IV ONCE ONE Stop: 04/30/23 16:59 Ondansetron HCl (Ondansetron Hcl 4 Mg/2 Ml Vial) 4 mg IVPUSH Q8H PRN PRN Reason: Nausea and Vomiting Oxycodone HCl (Oxycodone Hcl Immed Release 5 Mg Tablet) 5 mg PO Q6H PRN PRN Reason: Pain, Moderate(Pain Scale 4-6) Pharmacy Consult (Consult Rx Perform Med Rec) 1 each MISCELLANE ONCE PRN PRN Reason: Consult order Pharmacy Consult (Consult Rx Vancomycin Dosing) 1 each MISCELLANE DAILY PRN PRN Reason: Consult order Sodium Chloride (0.9 % Sodium Chloride Flush 3 Ml Syringe) 3 ml IVFLUSH [facility] Home Medications Medication Instructions Recorded Confirmed Last Taken Type ezetimibe 10 mg tablet 1 tab PO DAILY 01/03/22 01/28/23 11/12/22 09:00 History gabapentin 300 mg capsule 1 cap PO TID 01/03/22 01/28/23 11/12/22 09:00 History hydroxyzine HCl 10 mg tablet 1 tab PO QID PRN itch 01/03/22 01/28/23 08/02/22 History insulin glargine 100 unit/mL 50 unit subcut BID 01/03/22 01/28/23 11/12/22 09:00 History subcutaneous solution (Lantus U-100 Insulin) insulin lispro 100 unit/mL 30 unit subcut TIDAC 01/03/22 01/28/23 11/12/22 09:00 History subcutaneous solution isosorbide mononitrate 30 mg 1 tab PO DAILY 01/03/22 01/28/23 11/12/22 09:00 History tablet,extended release 24 hr loratadine 10 mg tablet 1 tab PO DAILY 01/03/22 01/28/23 11/12/22 09:00 History losartan 25 mg tablet 1 tab PO DAILY 01/03/22 01/28/23 11/12/22 09:00 History meclizine 25 mg tablet 1 tab PO TID PRN dizziness 01/03/22 01/28/23 08/02/22 History metoprolol tartrate 25 mg tablet 1 tab PO BID 01/03/22 01/28/23 11/12/22 09:00 History montelukast 10 mg tablet 1 tab PO BEDTIME 01/03/22 01/28/23 11/11/22 History ondansetron HCl 4 mg tablet 1 tab PO TID PRN nausea 01/03/22 01/28/23 08/02/22 History oxycodone 20 mg tablet,crush 1 tab PO BID PRN Severe Pain 01/03/22 01/28/23 11/12/22 09:00 History resistant,extended release 12 hr (Scale Score 7-10) (OxyContin) pantoprazole 40 mg tablet,delayed 1 tab PO BID@0630,1630 01/03/22 01/28/23 11/12/22 09:00 History release quetiapine 25 mg tablet 0.5 tab PO BEDTIME 01/03/22 01/28/23 11/11/22 History rosuvastatin 40 mg tablet 1 tab PO BEDTIME 01/03/22 01/28/23 11/11/22 History thiamine HCl (vitamin B1) 100 mg 1 tab PO DAILY 01/03/22 01/28/23 11/12/22 09:00 History tablet zolpidem 10 mg tablet 1 tab PO BEDTIME PRN insomnia 01/03/22 01/28/23 08/02/22 History rivaroxaban 20 mg tablet (Xarelto) 1 tab PO DAILY@1700 07/23/22 01/28/23 11/11/22 History aspirin 81 mg tablet,delayed 1 tab PO DAILY 08/04/22 01/28/23 11/12/22 09:00 History release tamsulosin 0.4 mg capsule 1 cap PO DAILY 08/04/22 01/28/23 11/12/22 09:00 History baclofen 10 mg tablet 1 tab PO TID 11/13/22 01/28/23 11/12/22 09:00 History furosemide 20 mg tablet 1 tab PO DAILY 11/13/22 01/28/23 11/12/22 09:00 History venlafaxine 100 mg tablet 1 tab PO BID 11/13/22 01/28/23 11/12/22 09:00 History Physical Exam Vital Signs: Vital Signs: Last Vital Signs Temp 98.5 F 04/30/23 13:01 Pulse 81 04/30/23 13:01 Resp 22 H 04/30/23 14:05 BP 131/68 04/30/23 13:01 Pulse Ox 98 04/30/23 13:01 O2 Del Method Room Air 04/30/23 13:01 BMI result Body Mass Index 41.4 Const: General: comfortable and no acute distress Nutritional Appearance: well nourished Orientation/consciousness: patient oriented x3 Limitations: no limitations HEENT: Head: Yes normocephalic and Yes atraumatic Ears: hearing grossly normal bilaterally Resp: Effort & Inspection: normal respiratory effort, no audible wheezes, no cough and no respiratory distress GI: Inspection: Yes normal to inspection Palpation (GI): Soft to palpation, nontender, no guarding and not rigid : Other: Mild swelling of the testicle without erythema. No evidence of abscess or necrosis. Skin: Other: Right suprapubic region with an area of erythema, tenderness, warmth, and fluctuance suggestive of an underlying abscess measuring approximately 4 cm in diameter. Overlying skin is crusted bordering on necrotic. There is no evidence of necrotizing fasciitis however. Full body images: 1. Site of abscess Neuro: General: patient oriented x3 Extrem: General: Yes normal to inspection and Yes no clubbing, cyanosis or edema Results Labs 04/30/23 11:55 04/30/23 11:55 Labs: Abnormal lab results 04/30/23 04/30/23 04/30/23 Range/Units 11:55 11:55 11:55 WBC 11.5 H (4.8-10.8) X10*3/uL RBC 4.32 L (4.60-5.80) X10*6/uL Hgb 12.1 L (14.0-18.0) g/dl Hct 36.3 L (42.0-52.0) % Abs Immat Gran (auto) 0.04 H (0.00-0.03) X10*3/uL Sodium 134 L (135-145) mmol/L Random Glucose 295 H (60-115) mg/dL Lactic Acid 2.4 H* (0.5-2.0) mmol/L Total Protein 6.4 L (6.5-8.0) g/dL Lipase < 4 L (8-78) U/L Short CBC 04/30/23 Range/Units 11:55 WBC 11.5 H (4.8-10.8) X10*3/uL Hgb 12.1 L (14.0-18.0) g/dl Hct 36.3 L (42.0-52.0) % Plt Count 227 (160-400) X10*3/uL BMP 04/30/23 11:55 Sodium 134 L Potassium 4.2 Chloride 101 Carbon Dioxide 22 BUN 10 Creatinine 0.84 Calcium 9.4 Liver Function 04/30/23 Range/Units 11:55 Total Bilirubin 0.6 (0.0-1.0) mg/dL AST 12 (5-37) U/L ALT 11 (0-40) U/L Alkaline Phosphatase 92 (39-117) U/L Albumin 3.7 (3.5-5.0) g/dL All other labs normal. Assessment and Plan (1) Cellulitis: Status: Acute Plan 62-year-old male patient presenting with a right groin abscess over the past several days be worsening. On examination the abscess measures approximately 4 cm in the right groin with associated tenderness and fluctuance. We discussed either operative debridement in the OR verses incision and drainage at the bedside. After discussion of the procedure, risks, and alternatives, he consents to a bedside incision and drainage. If he cannot tolerate this then we will proceed to operative debridement in the OR. The patient understands and agrees with the plan. Time Spent With Patient Time: Total time managing care of this patient today ____ minutes. Procedures Date of Service Date of Service: 04/30/23
--- NOTE | 2023-04-30 15:09 | W.PM.OPN ---
Operative Note Operative Note Date of Service: 04/30/23 Narrative: Preoperative diagnosis: Abscess right groin Postoperative diagnosis: Same Procedure: Incision and drainage abscess right groin Surgeon: Pawel Hinton MD Manager Professional Development: None Anesthesia: Local lidocaine 1% with epinephrine Indications for procedure: Tender, fluctuant, and red area in the right groin suggestive of an underlying abscess Operative findings:Abscess cavity measuring approximately 2 cm in diameter Specimen: Wound culture right groin Estimated blood loss: Less than 2 mL Complications: None Procedure details: Patient was placed in a supine position in the emergency department bed. The site of surgery was confirmed by the patient. After assuring informed consent the skin was prepped with Betadine and draped in a sterile fashion. Local anesthesia was then infiltrated over the abscess. A 3 cm incision was then made with a 15 blade scalpel carried out through subcutaneous tissue into the abscess cavity. A hemostat was then used to drain the abscess. A large purulence collection was drained. This was irrigated with saline solution. Wound cultures were obtained. Wound was then packed with 1/4 inch Nu Gauze. Sterile dressings were then applied. The patient tolerated the procedure well. He will be admitted to this hospitalist service for IV antibiotics. I will follow along during his hospital course and follow-up as an outpatient.
--- NOTE | 2023-04-30 15:49 | PHA.MEDREC ---
Pharmacy Consult ? Medication Reconciliation Pharmacy has completed the medication reconciliation. spoke with patient.
[2023-04-30 16:24] VITALS: BP 150/68; PULSE 89; RESP 18; TEMP 36.4; O2SAT 99
[2023-04-30 19:23] VITALS: BP 118/43; PULSE 73; RESP 17; TEMP 36.4; O2SAT 98
[2023-04-30 23:18] VITALS: BP 143/75; PULSE 93; RESP 16; TEMP 36.3; O2SAT 97
[2023-05-01 03:03] VITALS: BP 148/76; PULSE 87; RESP 16; TEMP 36.4; O2SAT 96
[2023-05-01 06:33] LABS: MANUAL DIFF FLAG NO
[2023-05-01 06:40] LABS: Basophils Absolute Auto 0.1 X10*3/uL (0.0-0.2); Basophils Percent Auto 0.5 % (0-2); Eosinophils Absolute Auto 0.1 X10*3/uL (0.0-0.4); Eosinophils Percent Auto 1.1 % (0-4); Hematocrit 34.9 % (42.0-52.0); Hemoglobin 11.9 g/dl (14.0-18.0); Imm Gran Abs Auto 0.04 X10*3/uL (0.00-0.03); Imm Gran Pct Auto 0.4 % (0.0-0.4); Lymphocytes Absolute Auto 1.8 X10*3/uL (1.2-4.9); Lymphocytes Percent Auto 18.4 % (20-40); Mean Corpuscular HGB Conc 34.1 g/dl (31.0-36.0); Mean Corpuscular Hemoglobin 28.1 pg (27.0-33.0); Mean Corpuscular Volume 82.5 fL (80.0-98.0); Mean Platelet Volume 10.3 fL (9.4-12.4); Monocytes Absolute Auto 0.8 X10*3/uL (0.1-1.2); Monocytes Percent Auto 8.2 % (2-11); Neutrophils Absolute Auto 7.1 x10*3/uL (2.0-8.3); Neutrophils Percent Auto 71.4 % (45-73); Platelet Count 220 X10*3/uL (160-400); Red Blood Count 4.23 X10*6/uL (4.60-5.80); White Blood Count 9.9 X10*3/uL (4.8-10.8)
[2023-05-01 07:07] LABS: Anion Gap 12 (12-20); Blood Urea Nitrogen 7 mg/dL (9-16); Calcium 9.1 mg/dL (8.4-10.2); Carbon Dioxide 23 mmol/L (22-29); Chloride 107 mmol/L (96-108); Creatinine Clr Calc Pharmacy 130.5; Estimated Glomerular Filt Rate > 60; Glucose Random 228 mg/dL (60-115); Potassium 3.8 mmol/L (3.3-5.1); Sodium 138 mmol/L (135-145)
[2023-05-01 08:00] VITALS: BP 184/73; PULSE 91; RESP 20; TEMP 36.3; O2SAT 97
--- NOTE | 2023-05-01 09:18 | HO.PM.IMPN ---
Subjective Subjective Date of Service: 05/01/23 Interval History: still with pain Physical Exam Vital Signs: Vital Signs: Last Vital Signs Temp 97.4 F 05/01/23 08:00 Pulse 91 05/01/23 08:00 Resp 20 05/01/23 08:00 BP 184/73 H 05/01/23 08:00 Pulse Ox 97 05/01/23 08:00 O2 Del Method Room Air 05/01/23 08:00 BMI result Body Mass Index 41.4 Const: General: comfortable and no acute distress Nutritional Appearance: well nourished Orientation/consciousness: patient oriented x3 Limitations: no limitations HEENT: Head: Yes normocephalic and Yes atraumatic Ears: hearing grossly normal bilaterally Resp: Effort & Inspection: normal respiratory effort, no audible wheezes, no cough and no respiratory distress GI: Inspection: Yes normal to inspection Palpation (GI): Soft to palpation, nontender, no guarding and not rigid : Other: Mild swelling of the testicle without erythema. No evidence of abscess or necrosis. Skin: Other: Right suprapubic region with an area of erythema, tenderness, warmth, and fluctuance suggestive of an underlying abscess measuring approximately 4 cm in diameter. Overlying skin is crusted bordering on necrotic. There is no evidence of necrotizing fasciitis however. Neuro: General: patient oriented x3 Extrem: General: Yes normal to inspection and Yes no clubbing, cyanosis or edema Objective Data Active Medications Acetaminophen (Acetaminophen 325 Mg Tablet) 650 mg PO Q6H PRN PRN Reason: Pain, Mild (Pain Scale 1-3) Last Admin: 04/30/23 15:43 Dose: 650 mg Documented By: CHIVO Dextrose (Dextrose 50 % 25 Gm/50 Ml Syringe) 25 gm IVPUSH Q15M PRN; Protocol PRN Reason: per Hypoglycemia Standing Ord. Glucose (Glucose Gel 15 Gm Gel..Gram.) 15 gm PO Q15M PRN; Protocol PRN Reason: per Hypoglycemia Standing Ord. Hydromorphone HCl (Hydromorphone Hcl 0.5 Mg/0.5 Ml Syringe) 0.25 mg IVPUSH Q4H PRN; Protocol PRN Reason: Pain, Severe (Pain Scale 7-10) Last Admin: 05/01/23 06:07 Dose: 0.25 mg Documented By: ENMANUEL Piperacillin Sod/Tazobactam (Sod 4.5 gm/ Sodium Chloride) 100 mls @ 200 mls/hr IV Q8H [facility] Last Infusion: 05/01/23 06:45 Dose: 0 mls/hr Documented By: ENMANUEL Vancomycin HCl 1,000 mg/ (Sodium Chloride) 270 mls @ 270 mls/hr IV Q12H [facility] Last Infusion: 05/01/23 04:27 Dose: 0 mls/hr Documented By: ENMANUEL Insulin Human Lispro (Insulin Lispro 100 Unit/Ml 3 Ml Vial) [facility]; Protocol Last Admin: 05/01/23 07:50 Dose: 4 unit Documented By: ALISE Insulin Human Lispro (Insulin Lispro 100 Unit/Ml 3 Ml Vial) [facility] Last Admin: 05/01/23 07:49 Dose: 5 unit Documented By: ALISE Ondansetron HCl (Ondansetron Hcl 4 Mg/2 Ml Vial) 4 mg IVPUSH Q8H PRN PRN Reason: Nausea and Vomiting Oxycodone HCl (Oxycodone Hcl Immed Release 5 Mg Tablet) 5 mg PO Q6H PRN PRN Reason: Pain, Moderate(Pain Scale 4-6) Last Admin: 05/01/23 02:59 Dose: 5 mg Documented By: ENMANUEL Pharmacy Consult (Consult Rx Perform Med Rec) 1 each MISCELLANE ONCE PRN PRN Reason: Consult order Pharmacy Consult (Consult Rx Vancomycin Dosing) 1 each MISCELLANE DAILY PRN PRN Reason: Consult order Sodium Chloride (0.9 % Sodium Chloride Flush 3 Ml Syringe) 3 ml IVFLUSH QSHIFT [facility] Last Admin: 05/01/23 00:39 Dose: 3 ml Documented By: ENMANUEL Labs 05/01/23 06:20 05/01/23 06:20 Labs: Laboratory Results - last 24 hr 04/30/23 04/30/23 04/30/23 11:55 11:55 11:55 MCV 84.0 MCH 28.0 MCHC 33.3 RDW 13.1 Plt Count 227 MPV 10.3 Immature Gran % (Auto) 0.3 Neut % (Auto) 68.4 Lymph % (Auto) 20.7 [place] % (Auto) 9.2 Eos % (Auto) 1.0 Baso % (Auto) 0.4 Lymph # (Auto) 2.4 [place] # (Auto) 1.1 Eos # (Auto) 0.1 Baso # (Auto) 0.1 Abs Immat Gran (auto) 0.04 H Absolute Neuts (auto) 7.9 Absolute Nucleated RBC 0.000 Nucleated RBC % (auto) 0.0 Anion Gap 15 Estim Creat Clear Calc 116.5 Estimated GFR > 60 POC Glucose Random Glucose 295 H Lactic Acid 2.4 H* Lactic Acid F/U @ 2Hr Calcium 9.4 Total Bilirubin 0.6 AST 12 ALT 11 Alkaline Phosphatase 92 Total Protein 6.4 L Albumin 3.7 Lipase < 4 L 04/30/23 04/30/23 04/30/23 14:26 16:36 20:29 MCV MCH MCHC RDW Plt Count MPV Immature Gran % (Auto) Neut % (Auto) Lymph % (Auto) [place] % (Auto) Eos % (Auto) Baso % (Auto) Lymph # (Auto) [place] # (Auto) Eos # (Auto) Baso # (Auto) Abs Immat Gran (auto) Absolute Neuts (auto) Absolute Nucleated RBC Nucleated RBC % (auto) Anion Gap Estim Creat Clear Calc Estimated GFR POC Glucose 241 H 169 H Random Glucose Lactic Acid Lactic Acid F/U @ 2Hr 1.3 Calcium Total Bilirubin AST ALT Alkaline Phosphatase Total Protein Albumin Lipase 05/01/23 05/01/23 05/01/23 06:20 06:20 07:20 MCV 82.5 MCH 28.1 MCHC 34.1 RDW 13.0 Plt Count 220 MPV 10.3 Immature Gran % (Auto) 0.4 Neut % (Auto) 71.4 Lymph % (Auto) 18.4 L [place] % (Auto) 8.2 Eos % (Auto) 1.1 Baso % (Auto) 0.5 Lymph # (Auto) 1.8 [place] # (Auto) 0.8 Eos # (Auto) 0.1 Baso # (Auto) 0.1 Abs Immat Gran (auto) 0.04 H Absolute Neuts (auto) 7.1 Absolute Nucleated RBC 0.000 Nucleated RBC % (auto) 0.0 Anion Gap 12 Estim Creat Clear Calc 130.5 Estimated GFR > 60 POC Glucose 211 H Random Glucose 228 H Lactic Acid Lactic Acid F/U @ 2Hr Calcium 9.1 Total Bilirubin AST ALT Alkaline Phosphatase Total Protein Albumin Lipase Assessment and Plan (1) Cellulitis: Status: Acute Plan 61M PMH paroxysmal atrial fibrillation anticoagulated with Xarelto, mild intermittent asthma, DM, peripheral artery disease with recent admission in 06/17 for osteomyelitis s/p amputation of the left great toe, hypertension, and coronary artery disease s/p quadruple bypass in 2018 presented with groin erythema and pain Acute cellulitis and abscess of groin Bedside I&D performed by general surgery CT was negative for cellulitis/abscess/fourniers IV vancomycin and Zosyn cultures diabetes mellitus with hyperglycemia insulin paroxysmal atrial fibrillation continue Xarelto for anticoagulation hypertension losartan, imdur CAD/hyperlipidemia continue statin, baby aspirin, isosorbide, xarelto BPH Flomax chronic low back pain continue baclofen and gabapentin DVT prophylaxis-on Xarelto Full code reason for continued hospitalization:awaiting cultrues, broad spectrum abx for high risk area infection in DM Time Spent With Patient Time: Total time managing care of this patient today ____ minutes. Quality Stroke Does the patient have a stroke diagnosis?: No VTE Prior VTE?: No VTE Risk Level:: Medical - moderate - high VTE Device Contraindication: Treatment Not Indicated VTE Drug Contraindication: N/A - Med Ordered
[2023-05-01 11:26] VITALS: BP 149/75; PULSE 82; RESP 20; TEMP 36.1; O2SAT 94
[2023-05-01 14:52] LABS: Vancomycin Random 9.4 mcg/mL (15-20)
--- NOTE | 2023-05-01 15:10 | HE.PHANOTE ---
RE: vanco Trough on 05/01 came back at 9.4mg/L. Increased dose to 1000mg Q8H with predicted AUC 508mg/L, trough of 13mg/L. Next level to be drawn 05/02 @1400
[2023-05-01 15:59] VITALS: BP 142/55; PULSE 78; RESP 20; TEMP 37.3; O2SAT 97
[2023-05-01 18:59] VITALS: BP 139/82; PULSE 89; RESP 15; TEMP 36.6; O2SAT 97
[2023-05-01 23:17] VITALS: BP 147/69; PULSE 88; RESP 17; TEMP 37.1; O2SAT 98
[2023-05-02 03:36] VITALS: BP 142/73; PULSE 79; RESP 15; TEMP 36.6; O2SAT 96
[2023-05-02 07:30] VITALS: BP 156/90; PULSE 82; RESP 20; TEMP 36.3; O2SAT 96
[2023-05-02 07:43] LABS: Hematocrit 36.3 % (42.0-52.0); Hemoglobin 12.1 g/dl (14.0-18.0); Mean Corpuscular HGB Conc 33.3 g/dl (31.0-36.0); Mean Platelet Volume 10.8 fL (9.4-12.4); Platelet Count 234 X10*3/uL (160-400); Red Blood Count 4.32 X10*6/uL (4.60-5.80); White Blood Count 7.2 X10*3/uL (4.8-10.8)
[2023-05-02 08:59] LABS: Anion Gap 12 (12-20); Blood Urea Nitrogen 5 mg/dL (9-16); Carbon Dioxide 22 mmol/L (22-29); Chloride 108 mmol/L (96-108); Creatinine Clr Calc Pharmacy 137.9; Estimated Glomerular Filt Rate > 60; Glucose Fasting 200 mg/dL (60-99); Potassium 3.4 mmol/L (3.3-5.1); Sodium 139 mmol/L (135-145)
--- NOTE | 2023-05-02 09:28 | PM.PNGS ---
Subjective Subjective Date of Service: 05/02/23 Interval history: Patient reports persistent pain in the suprapubic area. Physical Exam Vital Signs: Vital Signs: Last Vital Signs Temp 97.3 F 05/02/23 07:30 Pulse 82 05/02/23 07:30 Resp 20 05/02/23 07:30 BP 156/90 H 05/02/23 07:30 Pulse Ox 96 05/02/23 07:30 O2 Del Method Room Air 05/02/23 07:30 BMI result Body Mass Index 41.4 Const: General: no acute distress Nutritional Appearance: well nourished Orientation/consciousness: patient oriented x3 Limitations: no limitations Resp: Effort & Inspection: normal respiratory effort GI: Other: Suprapubic dressings changed. Wick removed. Some bloody discharge noted on dressings. Residual erythema noted the immediate surrounding skin. No fluctuance. Dry sterile dressings applied. Skin: Other: Warm, dry, no rash Neuro: General: patient oriented x3 Objective Data Active Medications Acetaminophen (Acetaminophen 325 Mg Tablet) 650 mg PO Q6H PRN PRN Reason: Pain, Mild (Pain Scale 1-3) Last Admin: 04/30/23 15:43 Dose: 650 mg Documented By: CHIVO Aspirin (Aspirin Enteric Coated 81 Mg Tablet.) 81 mg PO DAILY [facility] Atorvastatin Calcium (Atorvastatin Calcium 80 Mg Tablet) 80 mg PO DAILY [facility] Baclofen (Baclofen 10 Mg Tablet) 10 mg PO TID [facility] Last Admin: 05/01/23 21:38 Dose: 10 mg Documented By: MANISH Dextrose (Dextrose 50 % 25 Gm/50 Ml Syringe) 25 gm IVPUSH Q15M PRN; Protocol PRN Reason: per Hypoglycemia Standing Ord. Ezetimibe (Ezetimibe 10 Mg Tablet) 10 mg PO DAILY [facility] Furosemide (Furosemide 20 Mg Tablet) 20 mg PO BID [facility]; Protocol Last Admin: 05/01/23 21:38 Dose: 20 mg Documented By: MANISH Gabapentin (Gabapentin 300 Mg Capsule) 300 mg PO TID [facility] Last Admin: 05/01/23 21:38 Dose: 300 mg Documented By: MANISH Glucose (Glucose Gel 15 Gm Gel..Gram.) 15 gm PO Q15M PRN; Protocol PRN Reason: per Hypoglycemia Standing Ord. Hydromorphone HCl (Hydromorphone Hcl 0.5 Mg/0.5 Ml Syringe) 0.25 mg IVPUSH Q4H PRN; Protocol PRN Reason: Pain, Severe (Pain Scale 7-10) Last Admin: 05/02/23 01:44 Dose: 0.25 mg Documented By: MANISH Piperacillin Sod/Tazobactam (Sod 4.5 gm/ Sodium Chloride) 100 mls @ 200 mls/hr IV Q8H [facility] Last Infusion: 05/02/23 04:12 Dose: 0 mls/hr Documented By: MANISH Vancomycin HCl 1,000 mg/ (Sodium Chloride) 270 mls @ 270 mls/hr IV Q8H [facility] Last Infusion: 05/02/23 00:58 Dose: 0 mls/hr Documented By: MANISH Insulin Glargine (Insulin Glargine,Hum.Rec.Anlog 100 Unit/Ml 10 Ml Vial) 50 unit SUBCUT BEDTIME [facility] Last Admin: 05/01/23 21:39 Dose: 50 unit Documented By: MANISH Insulin Human Lispro (Insulin Lispro 100 Unit/Ml 3 Ml Vial) 0 unit SUBCUT QIDACHS [facility]; Protocol Last Admin: 05/01/23 21:39 Dose: 4 unit Documented By: MANISH Insulin Human Lispro (Insulin Lispro 100 Unit/Ml 3 Ml Vial) 5 unit SUBCUT QIDACHS [facility] Last Admin: 05/01/23 21:39 Dose: 5 unit Documented By: MANISH Isosorbide Mononitrate (Isosorbide Mononitrate 30 Mg Tab.Er.24h) 30 mg PO DAILY [facility]; Protocol Loratadine (Loratadine 10 Mg Tablet) 10 mg PO DAILY [facility] Losartan Potassium (Losartan Potassium 25 Mg Tablet) 25 mg PO DAILY [facility]; Protocol Montelukast Sodium (Montelukast Sodium 10 Mg Tablet) 10 mg PO BEDTIME [facility] Last Admin: 05/01/23 21:40 Dose: 10 mg Documented By: MANISH Omeprazole (Omeprazole 20 Mg Capsule.Dr) 20 mg PO BID@0630,1630 [facility] Last Admin: 05/02/23 05:38 Dose: 20 mg Documented By: MANISH Ondansetron HCl (Ondansetron Hcl 4 Mg/2 Ml Vial) 4 mg IVPUSH Q8H PRN PRN Reason: Nausea and Vomiting Oxycodone HCl (Oxycodone Hcl Immed Release 5 Mg Tablet) 5 mg PO Q6H PRN PRN Reason: Pain, Moderate(Pain Scale 4-6) Last Admin: 05/01/23 15:37 Dose: 5 mg Documented By: SANNA Pharmacy Consult (Consult Rx Perform Med Rec) 1 each MISCELLANE ONCE PRN PRN Reason: Consult order Pharmacy Consult (Consult Rx Vancomycin Dosing) 1 each MISCELLANE DAILY PRN PRN Reason: Consult order Rivaroxaban (Rivaroxaban 20 Mg Tablet) 20 mg PO DAILY@1700 [facility] Last Admin: 05/01/23 16:57 Dose: 20 mg Documented By: ALISE Sodium Chloride (0.9 % Sodium Chloride Flush 3 Ml Syringe) 3 ml IVFLUSH QSHIFT [facility] Last Admin: 05/01/23 21:40 Dose: 3 ml Documented By: MANISH Tamsulosin HCl (Tamsulosin Hcl 0.4 Mg Capsule) 0.4 mg PO DAILY [facility] Thiamine HCl (Thiamine Hcl 100 Mg Tablet) 100 mg PO DAILY [facility] Venlafaxine HCl (Venlafaxine Hcl 25 Mg Tablet) 100 mg PO BID [facility] Last Admin: 05/01/23 21:38 Dose: 100 mg Documented By: MANISH Zolpidem Tartrate (Zolpidem Tartrate 5 Mg Tablet) 5 mg PO BEDTIME [facility] Last Admin: 05/01/23 21:40 Dose: 5 mg Documented By: MANISH Labs 05/02/23 06:46 05/02/23 06:46 Labs: Laboratory Results - last 24 hr 05/01/23 05/01/23 05/01/23 11:10 13:24 15:35 MCV MCH MCHC RDW Plt Count MPV Absolute Nucleated RBC Nucleated RBC % (auto) Anion Gap Estim Creat Clear Calc Estimated GFR POC Glucose 197 H 220 H Fasting Glucose Calcium Random Vancomycin 9.4 L 05/01/23 05/02/23 05/02/23 20:09 06:46 06:46 MCV 84.0 MCH 28.0 MCHC 33.3 RDW 13.0 Plt Count 234 MPV 10.8 Absolute Nucleated RBC 0.000 Nucleated RBC % (auto) 0.0 Anion Gap 12 Estim Creat Clear Calc 137.9 Estimated GFR > 60 POC Glucose 240 H Fasting Glucose 200 H Calcium 9.0 Random Vancomycin 05/02/23 07:25 MCV MCH MCHC RDW Plt Count MPV Absolute Nucleated RBC Nucleated RBC % (auto) Anion Gap Estim Creat Clear Calc Estimated GFR POC Glucose 198 H Fasting Glucose Calcium Random Vancomycin Microbiology Microbiology Results: Microbiology 04/30/23 15:49 Gram Stain - Final Abdomen - Abdominal Routine Culture - Final Methicillin Res Staph Aureus 04/30/23 13:08 Blood Culture - Preliminary Blood - Venous No growth after 24 hours. 04/30/23 11:55 Blood Culture - Preliminary Blood - Venous No growth after 24 hours. Procedures Date of Service Date of Service: 05/02/23 Progress Note: A&P Assessment and plan (1) Abscess: Status: Inactive Plan 62-year-old male status post incision and drainage of an abscess of the suprapubic region. Overall the wounds are much improved with decreased erythema. Patient continues to have pain associated with the lesion. Wounds were checked this morning and packing removed. Should continue daily dressing changes with 4 x 4 gauze and paper tape. Follow-up in office in 1 week if discharged over weekend. Time Spent With Patient Time: Total time managing care of this patient today ____ minutes. Quality Stroke Does the patient have a stroke diagnosis?: No VTE Prior VTE?: No VTE Risk Level:: Medical - moderate - high VTE Device Contraindication: Treatment Not Indicated VTE Drug Contraindication: N/A - Med Ordered
--- NOTE | 2023-05-02 10:47 | HO.PM.IMPN ---
Subjective Subjective Date of Service: 05/02/23 Interval History: pain Physical Exam Vital Signs: Vital Signs: Last Vital Signs Temp 97.3 F 05/02/23 07:30 Pulse 82 05/02/23 07:30 Resp 20 05/02/23 07:30 BP 156/90 H 05/02/23 07:30 Pulse Ox 96 05/02/23 07:30 O2 Del Method Room Air 05/02/23 07:30 BMI result Body Mass Index 41.4 Const: General: no acute distress Nutritional Appearance: well nourished Orientation/consciousness: patient oriented x3 Limitations: no limitations Resp: Effort & Inspection: normal respiratory effort GI: Other: Suprapubic dressings changed. Wick removed. Some bloody discharge noted on dressings. Residual erythema noted the immediate surrounding skin. No fluctuance. Dry sterile dressings applied. Skin: Other: Warm, dry, no rash Neuro: General: patient oriented x3 Objective Data Active Medications Acetaminophen (Acetaminophen 325 Mg Tablet) 650 mg PO Q6H PRN PRN Reason: Pain, Mild (Pain Scale 1-3) Last Admin: 04/30/23 15:43 Dose: 650 mg Documented By: CHIVO Aspirin (Aspirin Enteric Coated 81 Mg Tablet.Dr) 81 mg PO DAILY [facility] Atorvastatin Calcium (Atorvastatin Calcium 80 Mg Tablet) 80 mg PO DAILY [facility] Baclofen (Baclofen 10 Mg Tablet) 10 mg PO TID [facility] Last Admin: 05/01/23 21:38 Dose: 10 mg Documented By: MANISH Dextrose (Dextrose 50 % 25 Gm/50 Ml Syringe) 25 gm IVPUSH Q15M PRN; Protocol PRN Reason: per Hypoglycemia Standing Ord. Ezetimibe (Ezetimibe 10 Mg Tablet) 10 mg PO DAILY [facility] Furosemide (Furosemide 20 Mg Tablet) 20 mg PO BID [facility]; Protocol Last Admin: 05/01/23 21:38 Dose: 20 mg Documented By: MANISH Gabapentin (Gabapentin 300 Mg Capsule) 300 mg PO TID [facility] Last Admin: 05/01/23 21:38 Dose: 300 mg Documented By: MANISH Glucose (Glucose Gel 15 Gm Gel..Gram.) 15 gm PO Q15M PRN; Protocol PRN Reason: per Hypoglycemia Standing Ord. Hydromorphone HCl (Hydromorphone Hcl 0.5 Mg/0.5 Ml Syringe) 0.25 mg IVPUSH Q4H PRN; Protocol PRN Reason: Pain, Severe (Pain Scale 7-10) Last Admin: 05/02/23 01:44 Dose: 0.25 mg Documented By: MANISH Piperacillin Sod/Tazobactam (Sod 4.5 gm/ Sodium Chloride) 100 mls @ 200 mls/hr IV Q8H [facility] Last Infusion: 05/02/23 04:12 Dose: 0 mls/hr Documented By: MANISH Vancomycin HCl 1,000 mg/ (Sodium Chloride) 270 mls @ 270 mls/hr IV Q8H [facility] Last Infusion: 05/02/23 00:58 Dose: 0 mls/hr Documented By: MANISH Insulin Glargine (Insulin Glargine,Hum.Rec.Anlog 100 Unit/Ml 10 Ml Vial) 50 unit SUBCUT BEDTIME [facility] Last Admin: 05/01/23 21:39 Dose: 50 unit Documented By: MANISH Insulin Human Lispro (Insulin Lispro 100 Unit/Ml 3 Ml Vial) 0 unit SUBCUT QIDACHS [facility]; Protocol Last Admin: 05/01/23 21:39 Dose: 4 unit Documented By: MANISH Insulin Human Lispro (Insulin Lispro 100 Unit/Ml 3 Ml Vial) 5 unit SUBCUT QIDACHS [facility] Last Admin: 05/01/23 21:39 Dose: 5 unit Documented By: MANISH Isosorbide Mononitrate (Isosorbide Mononitrate 30 Mg Tab.Er.24h) 30 mg PO DAILY [facility]; Protocol Loratadine (Loratadine 10 Mg Tablet) 10 mg PO DAILY [facility] Losartan Potassium (Losartan Potassium 25 Mg Tablet) 25 mg PO DAILY [facility]; Protocol Montelukast Sodium (Montelukast Sodium 10 Mg Tablet) 10 mg PO BEDTIME [facility] Last Admin: 05/01/23 21:40 Dose: 10 mg Documented By: MANISH Omeprazole (Omeprazole 20 Mg Capsule.Dr) 20 mg PO BID@0630,1630 [facility] Last Admin: 05/02/23 05:38 Dose: 20 mg Documented By: MANISH Ondansetron HCl (Ondansetron Hcl 4 Mg/2 Ml Vial) 4 mg IVPUSH Q8H PRN PRN Reason: Nausea and Vomiting Oxycodone HCl (Oxycodone Hcl Immed Release 5 Mg Tablet) 5 mg PO Q6H PRN PRN Reason: Pain, Moderate(Pain Scale 4-6) Last Admin: 05/01/23 15:37 Dose: 5 mg Documented By: SANNA Pharmacy Consult (Consult Rx Perform Med Rec) 1 each MISCELLANE ONCE PRN PRN Reason: Consult order Pharmacy Consult (Consult Rx Vancomycin Dosing) 1 each MISCELLANE DAILY PRN PRN Reason: Consult order Rivaroxaban (Rivaroxaban 20 Mg Tablet) 20 mg PO DAILY@1700 [facility] Last Admin: 05/01/23 16:57 Dose: 20 mg Documented By: ALISE Sodium Chloride (0.9 % Sodium Chloride Flush 3 Ml Syringe) 3 ml IVFLUSH QSHIFT [facility] Last Admin: 05/01/23 21:40 Dose: 3 ml Documented By: MANISH Tamsulosin HCl (Tamsulosin Hcl 0.4 Mg Capsule) 0.4 mg PO DAILY [facility] Thiamine HCl (Thiamine Hcl 100 Mg Tablet) 100 mg PO DAILY [facility] Venlafaxine HCl (Venlafaxine Hcl 25 Mg Tablet) 100 mg PO BID [facility] Last Admin: 05/01/23 21:38 Dose: 100 mg Documented By: MANISH Zolpidem Tartrate (Zolpidem Tartrate 5 Mg Tablet) 5 mg PO BEDTIME [facility] Last Admin: 05/01/23 21:40 Dose: 5 mg Documented By: MANISH Labs 05/02/23 06:46 05/02/23 06:46 Labs: Laboratory Results - last 24 hr 05/01/23 05/01/23 05/01/23 11:10 13:24 15:35 MCV MCH MCHC RDW Plt Count MPV Absolute Nucleated RBC Nucleated RBC % (auto) Anion Gap Estim Creat Clear Calc Estimated GFR POC Glucose 197 H 220 H Fasting Glucose Calcium Random Vancomycin 9.4 L 05/01/23 05/02/23 05/02/23 20:09 06:46 06:46 MCV 84.0 MCH 28.0 MCHC 33.3 RDW 13.0 Plt Count 234 MPV 10.8 Absolute Nucleated RBC 0.000 Nucleated RBC % (auto) 0.0 Anion Gap 12 Estim Creat Clear Calc 137.9 Estimated GFR > 60 POC Glucose 240 H Fasting Glucose 200 H Calcium 9.0 Random Vancomycin 05/02/23 07:25 MCV MCH MCHC RDW Plt Count MPV Absolute Nucleated RBC Nucleated RBC % (auto) Anion Gap Estim Creat Clear Calc Estimated GFR POC Glucose 198 H Fasting Glucose Calcium Random Vancomycin Microbiology Microbiology Results: Microbiology 04/30/23 15:49 Gram Stain - Final Abdomen - Abdominal Routine Culture - Final Methicillin Res Staph Aureus 04/30/23 13:08 Blood Culture - Preliminary Blood - Venous No growth after 24 hours. 04/30/23 11:55 Blood Culture - Preliminary Blood - Venous No growth after 24 hours. Assessment and Plan (1) Cellulitis: Status: Acute Plan 61M PMH paroxysmal atrial fibrillation anticoagulated with Xarelto, mild intermittent asthma, DM, peripheral artery disease with recent admission in 06/17 for osteomyelitis s/p amputation of the left great toe, hypertension, and coronary artery disease s/p quadruple bypass in 2017 presented with groin erythema and pain Acute cellulitis and abscess of groin Bedside I&D performed by general surgery CT was negative for cellulitis/abscess/fourniers IV vancomycin and Zosyn wound culutre - mrsa diabetes mellitus with hyperglycemia insulin paroxysmal atrial fibrillation continue Xarelto for anticoagulation hypertension losartan, imdur CAD/hyperlipidemia continue statin, baby aspirin, isosorbide, xarelto BPH Flomax chronic low back pain continue baclofen and gabapentin DVT prophylaxis-on Xarelto Full code reason for continued hospitalization: broad spectrum abx for high risk area infection in DM, significant pain Time Spent With Patient Time: Total time managing care of this patient today ____ minutes. Quality Stroke Does the patient have a stroke diagnosis?: No VTE Prior VTE?: No VTE Risk Level:: Medical - moderate - high VTE Device Contraindication: Treatment Not Indicated VTE Drug Contraindication: N/A - Med Ordered
[2023-05-02 11:26] LABS: Glucose, Whole Blood 183 mg/dL (60-115)
[2023-05-02 11:41] VITALS: BP 146/82; PULSE 89; RESP 19; TEMP 36.1; O2SAT 95
--- NOTE | 2023-05-02 13:55 | MHC.CM.PN ---
[facility] REVIEWED, PER SURGICAL NOTES PT C/O PERSISTANT PAIN, PACKING REMOVED AND 4X4 AND PAPER TAPE APPLIED, PT WILL NEED FOLLOW UP W/SURGEON ONE WEEK AFTER D/C, NO SERVICES ANTICIPATED ON D/C AND FAMILY WILL TRANSPORT.
[2023-05-02 14:46] LABS: Vancomycin Trough 15.6 mcg/mL (10.0-20.0)
[2023-05-02 15:14] VITALS: BP 136/77; PULSE 100; RESP 18; TEMP 36.1; O2SAT 95
[2023-05-02 19:43] VITALS: BP 123/71; PULSE 92; RESP 18; TEMP 36; O2SAT 97
[2023-05-03] VITALS (7 sets, daily range): BP systolic 113–149; BP diastolic 61–86; PULSE 72–86; RESP 18–20; TEMP 35.7–36.6; O2SAT 95–97
[2023-05-03] MEDS: Piperacillin Sodium/Tazobactam 4.5 GM in 0.9 % Sodium Chloride 100 ML IV ×3 (02:10→18:52)
--- NOTE | 2023-05-03 09:23 | HO.PM.IMPN ---
Subjective Subjective Date of Service: 05/03/23 Interval History: still with pain Physical Exam Vital Signs: Vital Signs: Last Vital Signs Temp 96.2 F L 05/03/23 07:24 Pulse 72 05/03/23 07:24 Resp 20 05/03/23 07:24 BP 115/68 05/03/23 07:24 Pulse Ox 97 05/03/23 07:24 O2 Del Method Room Air 05/03/23 07:24 BMI result Body Mass Index 41.4 General: AO X 3, no acute distress Resp: CTA bilateral, no accessory muscles used CVS: S1,S2,RRR GI: soft, non tender, non distended Neuro: motor grossly intact, alert Psych: appropriate affect, appropriate insight Objective Data Active Medications Acetaminophen (Acetaminophen 325 Mg Tablet) 650 mg PO Q6H PRN PRN Reason: Pain, Mild (Pain Scale 1-3) Last Admin: 05/02/23 21:56 Dose: 650 mg Documented By: LORAINE Aspirin (Aspirin Enteric Coated 81 Mg Tablet.) 81 mg PO DAILY [facility] Last Admin: 05/03/23 09:14 Dose: 81 mg Documented By: SOTO Atorvastatin Calcium (Atorvastatin Calcium 80 Mg Tablet) 80 mg PO DAILY [facility] Last Admin: 05/03/23 09:13 Dose: 80 mg Documented By: SOTO Baclofen (Baclofen 10 Mg Tablet) 10 mg PO TID [facility] Last Admin: 05/02/23 20:44 Dose: 10 mg Documented By: LORAINE Dextrose (Dextrose 50 % 25 Gm/50 Ml Syringe) 25 gm IVPUSH Q15M PRN; Protocol PRN Reason: per Hypoglycemia Standing Ord. Ezetimibe (Ezetimibe 10 Mg Tablet) 10 mg PO DAILY [facility] Last Admin: 05/03/23 09:14 Dose: 10 mg Documented By: SOTO Furosemide (Furosemide 20 Mg Tablet) 20 mg PO BID [facility]; Protocol Last Admin: 05/03/23 09:14 Dose: 20 mg Documented By: SOTO Gabapentin (Gabapentin 300 Mg Capsule) 300 mg PO TID [facility] Last Admin: 05/03/23 09:13 Dose: 300 mg Documented By: SOTO Glucose (Glucose Gel 15 Gm Gel..Gram.) 15 gm PO Q15M PRN; Protocol PRN Reason: per Hypoglycemia Standing Ord. Hydromorphone HCl (Hydromorphone Hcl 0.5 Mg/0.5 Ml Syringe) 0.25 mg IVPUSH Q4H PRN; Protocol PRN Reason: Pain, Severe (Pain Scale 7-10) Last Admin: 05/03/23 06:25 Dose: 0.25 mg Documented By: LORAINE Vancomycin HCl 1,000 mg/ (Sodium Chloride) 270 mls @ 270 mls/hr IV Q8H [facility] Last Admin: 05/03/23 09:16 Dose: 270 mls/hr Documented By: SOTO Piperacillin Sod/Tazobactam (Sod 4.5 gm/ Sodium Chloride) 100 mls @ 200 mls/hr IV Q8H [facility] Last Infusion: 05/03/23 02:48 Dose: 0 mls/hr Documented By: LORAINE Insulin Glargine (Insulin Glargine,Hum.Rec.Anlog 100 Unit/Ml 10 Ml Vial) 50 unit SUBCUT BEDTIME [facility] Last Admin: 05/02/23 20:45 Dose: 50 unit Documented By: LORAINE Insulin Human Lispro (Insulin Lispro 100 Unit/Ml 3 Ml Vial) 0 unit SUBCUT QIDACHS [facility]; Protocol Last Admin: 05/03/23 07:52 Dose: Not Given Documented By: SOTO Non-Admin Reason: No Insulin Coverage Insulin Human Lispro (Insulin Lispro 100 Unit/Ml 3 Ml Vial) 5 unit SUBCUT QIDACHS [facility] Last Admin: 05/03/23 09:13 Dose: 5 unit Documented By: SOTO Isosorbide Mononitrate (Isosorbide Mononitrate 30 Mg Tab.Er.24h) 30 mg PO DAILY [facility]; Protocol Last Admin: 05/03/23 09:14 Dose: 30 mg Documented By: SOTO Loratadine (Loratadine 10 Mg Tablet) 10 mg PO DAILY [facility] Last Admin: 05/03/23 09:14 Dose: 10 mg Documented By: SOTO Losartan Potassium (Losartan Potassium 25 Mg Tablet) 25 mg PO DAILY [facility]; Protocol Last Admin: 05/03/23 09:14 Dose: 25 mg Documented By: SOTO Montelukast Sodium (Montelukast Sodium 10 Mg Tablet) 10 mg PO BEDTIME [facility] Last Admin: 05/02/23 20:44 Dose: 10 mg Documented By: LORAINE Omeprazole (Omeprazole 20 Mg Capsule.) 20 mg PO BID@0630,1630 [facility] Last Admin: 05/03/23 05:55 Dose: 20 mg Documented By: LORAINE Ondansetron HCl (Ondansetron Hcl 4 Mg/2 Ml Vial) 4 mg IVPUSH Q8H PRN PRN Reason: Nausea and Vomiting Oxycodone HCl (Oxycodone Hcl Immed Release 5 Mg Tablet) 5 mg PO Q6H PRN PRN Reason: Pain, Moderate(Pain Scale 4-6) Last Admin: 05/03/23 09:19 Dose: 5 mg Documented By: SOTO Pharmacy Consult (Consult Rx Perform Med Rec) 1 each MISCELLANE ONCE PRN PRN Reason: Consult order Pharmacy Consult (Consult Rx Vancomycin Dosing) 1 each MISCELLANE DAILY PRN PRN Reason: Consult order Rivaroxaban (Rivaroxaban 20 Mg Tablet) 20 mg PO DAILY@1700 [facility] Last Admin: 05/02/23 16:34 Dose: 20 mg Documented By: ALISE Sodium Chloride (0.9 % Sodium Chloride Flush 3 Ml Syringe) 3 ml IVFLUSH [facility] Last Admin: 05/03/23 09:13 Dose: 3 ml Documented By: SOTO Tamsulosin HCl (Tamsulosin Hcl 0.4 Mg Capsule) 0.4 mg PO DAILY [facility] Last Admin: 05/03/23 09:13 Dose: 0.4 mg Documented By: SOTO Thiamine HCl (Thiamine Hcl 100 Mg Tablet) 100 mg PO DAILY [facility] Last Admin: 05/03/23 09:13 Dose: 100 mg Documented By: SOTO Venlafaxine HCl (Venlafaxine Hcl 25 Mg Tablet) 100 mg PO BID [facility] Last Admin: 05/03/23 09:14 Dose: 100 mg Documented By: SOTO Zolpidem Tartrate (Zolpidem Tartrate 5 Mg Tablet) 5 mg PO BEDTIME [facility] Last Admin: 05/02/23 20:44 Dose: 5 mg Documented By: LORAINE Labs 05/02/23 06:46 05/03/23 06:29 Labs: Laboratory Results - last 24 hr 05/02/23 05/02/23 05/02/23 11:19 14:09 15:31 Estim Creat Clear Calc Estimated GFR POC Glucose 183 H 280 H Vancomycin Trough 15.6 05/02/23 05/03/23 05/03/23 20:47 06:29 07:27 Estim Creat Clear Calc 134.1 Estimated GFR > 60 POC Glucose 254 H 147 H Vancomycin Trough Microbiology Microbiology Results: Microbiology 04/30/23 13:08 Blood Culture - Preliminary Blood - Venous No growth after 48 hours. 04/30/23 11:55 Blood Culture - Preliminary Blood - Venous No growth after 48 hours. 04/30/23 15:49 Gram Stain - Final Abdomen - Abdominal Routine Culture - Final Methicillin Res Staph Aureus Assessment and Plan (1) Cellulitis: Status: Acute Plan 61M PMH paroxysmal atrial fibrillation anticoagulated with Xarelto, mild intermittent asthma, DM, peripheral artery disease with recent admission in 06/17 for osteomyelitis s/p amputation of the left great toe, hypertension, and coronary artery disease s/p quadruple bypass in 2017 presented with groin erythema and pain Acute cellulitis and abscess of groin Bedside I&D performed by general surgery CT was negative for cellulitis/abscess/fourniers IV vancomycin and Zosyn wound culutre - mrsa, ,likely bactrim on dc diabetes mellitus with hyperglycemia insulin paroxysmal atrial fibrillation continue Xarelto for anticoagulation hypertension losartan, imdur CAD/hyperlipidemia continue statin, baby aspirin, isosorbide, xarelto BPH Flomax chronic low back pain continue baclofen and gabapentin DVT prophylaxis-on Xarelto Full code reason for continued hospitalization: broad spectrum abx for high risk area infection in DM, significant pain Time Spent With Patient Time: Total time managing care of this patient today ____ minutes. Quality Stroke Does the patient have a stroke diagnosis?: No VTE Prior VTE?: No VTE Risk Level:: Medical - moderate - high VTE Device Contraindication: Treatment Not Indicated VTE Drug Contraindication: N/A - Med Ordered
--- NOTE | 2023-05-03 14:31 | HE.PHANOTE ---
Vancomycin Dosing Level 16.3 today. Will continue current regimen. Next level 05/03 @ 1400. Nba SalomonD
[2023-05-04] MEDS: Piperacillin Sodium/Tazobactam 4.5 GM in 0.9 % Sodium Chloride 100 ML IV ×3 (03:15→18:27)
[2023-05-04 04:00] VITALS: BP 138/77; PULSE 74; RESP 20; TEMP 36.3; O2SAT 96
[2023-05-04 06:56] LABS: Hematocrit 36.1 % (42.0-52.0); Hemoglobin 11.9 g/dl (14.0-18.0); Mean Corpuscular Hemoglobin 27.6 pg (27.0-33.0); Mean Corpuscular Volume 83.8 fL (80.0-98.0); Mean Platelet Volume 9.9 fL (9.4-12.4); Platelet Count 281 X10*3/uL (160-400); Red Blood Count 4.31 X10*6/uL (4.60-5.80); Red Cell Distribution Width 13.1 % (11.0-16.0); White Blood Count 6.6 X10*3/uL (4.8-10.8)
[2023-05-04 07:08] LABS: Anion Gap 11 (12-20); Blood Urea Nitrogen 6 mg/dL (9-16); Carbon Dioxide 26 mmol/L (22-29); Chloride 107 mmol/L (96-108); Creatinine Clr Calc Pharmacy 123.9; Estimated Glomerular Filt Rate > 60; Glucose Fasting 263 mg/dL (60-99); Potassium 3.6 mmol/L (3.3-5.1); Sodium 140 mmol/L (135-145)
[2023-05-04 07:53] VITALS: BP 144/82; PULSE 73; RESP 19; TEMP 35.8; O2SAT 97
--- NOTE | 2023-05-04 10:47 | HO.PM.IMPN ---
Subjective Subjective Date of Service: 05/04/23 Interval History: still with pain Physical Exam Vital Signs: Vital Signs: Last Vital Signs Temp 96.5 F L 05/04/23 07:53 Pulse 73 05/04/23 07:53 Resp 19 05/04/23 07:53 BP 144/82 H 05/04/23 07:53 Pulse Ox 97 05/04/23 07:53 O2 Del Method Room Air 05/04/23 07:53 BMI result Body Mass Index 41.4 General: AO X 3, no acute distress Resp: CTA bilateral, no accessory muscles used CVS: S1,S2,RRR GI: soft, non tender, non distended Neuro: motor grossly intact, alert Psych: appropriate affect, appropriate insight Objective Data Active Medications Acetaminophen (Acetaminophen 325 Mg Tablet) 650 mg PO Q6H PRN PRN Reason: Pain, Mild (Pain Scale 1-3) Last Admin: 05/03/23 20:38 Dose: 650 mg Documented By: JAN Aspirin (Aspirin Enteric Coated 81 Mg Tablet.) 81 mg PO DAILY [facility] Last Admin: 05/04/23 08:06 Dose: 81 mg Documented By: KATIA Atorvastatin Calcium (Atorvastatin Calcium 80 Mg Tablet) 80 mg PO DAILY [facility] Last Admin: 05/04/23 08:06 Dose: 80 mg Documented By: KATIA Baclofen (Baclofen 10 Mg Tablet) 10 mg PO TID [facility] Last Admin: 05/04/23 08:07 Dose: Not Given Documented By: KATIA Non-Admin Reason: Patient Refused Dextrose (Dextrose 50 % 25 Gm/50 Ml Syringe) 25 gm IVPUSH Q15M PRN; Protocol PRN Reason: per Hypoglycemia Standing Ord. Ezetimibe (Ezetimibe 10 Mg Tablet) 10 mg PO DAILY [facility] Last Admin: 05/04/23 08:05 Dose: 10 mg Documented By: KATIA Furosemide (Furosemide 20 Mg Tablet) 20 mg PO BID [facility]; Protocol Last Admin: 05/04/23 08:07 Dose: 20 mg Documented By: KATIA Gabapentin (Gabapentin 300 Mg Capsule) 300 mg PO TID [facility] Last Admin: 05/04/23 08:07 Dose: 300 mg Documented By: KATIA Glucose (Glucose Gel 15 Gm Gel..Gram.) 15 gm PO Q15M PRN; Protocol PRN Reason: per Hypoglycemia Standing Ord. Hydromorphone HCl (Hydromorphone Hcl 0.5 Mg/0.5 Ml Syringe) 0.25 mg IVPUSH Q4H PRN; Protocol PRN Reason: Pain, Severe (Pain Scale 7-10) Last Admin: 05/04/23 08:04 Dose: 0.25 mg Documented By: KATIA Vancomycin HCl 1,000 mg/ (Sodium Chloride) 270 mls @ 270 mls/hr IV Q8H [facility] Last Infusion: 05/04/23 09:19 Dose: 0 mls/hr Documented By: KATIA Piperacillin Sod/Tazobactam (Sod 4.5 gm/ Sodium Chloride) 100 mls @ 200 mls/hr IV Q8H [facility] Last Admin: 05/04/23 10:33 Dose: 100 mls/hr Documented By: KATIA Insulin Glargine (Insulin Glargine,Hum.Rec.Anlog 100 Unit/Ml 10 Ml Vial) 50 unit SUBCUT BEDTIME [facility] Last Admin: 05/03/23 20:38 Dose: 50 unit Documented By: JAN Insulin Human Lispro (Insulin Lispro 100 Unit/Ml 3 Ml Vial) 0 unit SUBCUT QIDACHS [facility]; Protocol Last Admin: 05/04/23 08:04 Dose: 6 unit Documented By: KATIA Insulin Human Lispro (Insulin Lispro 100 Unit/Ml 3 Ml Vial) 5 unit SUBCUT QIDACHS [facility] Last Admin: 05/04/23 08:04 Dose: 5 unit Documented By: KATIA Isosorbide Mononitrate (Isosorbide Mononitrate 30 Mg Tab.Er.24h) 30 mg PO DAILY [facility]; Protocol Last Admin: 05/04/23 08:07 Dose: 30 mg Documented By: KATIA Loratadine (Loratadine 10 Mg Tablet) 10 mg PO DAILY [facility] Last Admin: 05/04/23 08:07 Dose: 10 mg Documented By: KATIA Losartan Potassium (Losartan Potassium 25 Mg Tablet) 25 mg PO DAILY [facility]; Protocol Last Admin: 05/04/23 08:06 Dose: 25 mg Documented By: KATIA Montelukast Sodium (Montelukast Sodium 10 Mg Tablet) 10 mg PO BEDTIME [facility] Last Admin: 05/03/23 20:38 Dose: 10 mg Documented By: JAN Omeprazole (Omeprazole 20 Mg Capsule.) 20 mg PO BID@0630,1630 [facility] Last Admin: 05/04/23 05:46 Dose: 20 mg Documented By: LAZARA Ondansetron HCl (Ondansetron Hcl 4 Mg/2 Ml Vial) 4 mg IVPUSH Q8H PRN PRN Reason: Nausea and Vomiting Oxycodone HCl (Oxycodone Hcl Immed Release 5 Mg Tablet) 5 mg PO Q6H PRN PRN Reason: Pain, Moderate(Pain Scale 4-6) Last Admin: 05/04/23 06:52 Dose: 5 mg Documented By: LAZARA Pharmacy Consult (Consult Rx Perform Med Rec) 1 each MISCELLANE ONCE PRN PRN Reason: Consult order Pharmacy Consult (Consult Rx Vancomycin Dosing) 1 each MISCELLANE DAILY PRN PRN Reason: Consult order Rivaroxaban (Rivaroxaban 20 Mg Tablet) 20 mg PO DAILY@1700 [facility] Last Admin: 05/03/23 16:52 Dose: 20 mg Documented By: SOTO Sodium Chloride (0.9 % Sodium Chloride Flush 3 Ml Syringe) 3 ml IVFLUSH QSHIFT [facility] Last Admin: 05/04/23 08:07 Dose: 3 ml Documented By: KATIA Tamsulosin HCl (Tamsulosin Hcl 0.4 Mg Capsule) 0.4 mg PO DAILY [facility] Last Admin: 05/04/23 08:09 Dose: 0.4 mg Documented By: KATIA Thiamine HCl (Thiamine Hcl 100 Mg Tablet) 100 mg PO DAILY [facility] Last Admin: 05/04/23 08:07 Dose: 100 mg Documented By: KATIA Venlafaxine HCl (Venlafaxine Hcl 25 Mg Tablet) 100 mg PO BID [facility] Last Admin: 05/04/23 08:05 Dose: 100 mg Documented By: KATIA Zolpidem Tartrate (Zolpidem Tartrate 5 Mg Tablet) 5 mg PO BEDTIME [facility] Last Admin: 05/03/23 20:38 Dose: 5 mg Documented By: JAN Labs 05/04/23 06:28 05/04/23 06:28 Labs: Laboratory Results - last 24 hr 05/03/23 05/03/23 05/03/23 11:12 13:41 15:54 MCV MCH MCHC RDW Plt Count MPV Absolute Nucleated RBC Nucleated RBC % (auto) Anion Gap Estim Creat Clear Calc Estimated GFR POC Glucose 173 H 182 H Fasting Glucose Calcium Random Vancomycin 16.3 05/03/23 05/04/23 05/04/23 19:44 06:28 06:28 MCV 83.8 MCH 27.6 MCHC 33.0 RDW 13.1 Plt Count 281 MPV 9.9 Absolute Nucleated RBC 0.000 Nucleated RBC % (auto) 0.0 Anion Gap 11 L Estim Creat Clear Calc 123.9 Estimated GFR > 60 POC Glucose 203 H Fasting Glucose 263 H Calcium 9.0 Random Vancomycin 05/04/23 07:13 MCV MCH MCHC RDW Plt Count MPV Absolute Nucleated RBC Nucleated RBC % (auto) Anion Gap Estim Creat Clear Calc Estimated GFR POC Glucose 255 H Fasting Glucose Calcium Random Vancomycin Assessment and Plan (1) Cellulitis: Status: Acute Plan 61M PMH paroxysmal atrial fibrillation anticoagulated with Xarelto, mild intermittent asthma, DM, peripheral artery disease with recent admission in 06/17 for osteomyelitis s/p amputation of the left great toe, hypertension, and coronary artery disease s/p quadruple bypass in 2018 presented with groin erythema and pain Acute cellulitis and abscess of groin Bedside I&D performed by general surgery CT was negative for cellulitis/abscess/fourniers IV vancomycin and Zosyn wound culutre - mrsa, ,likely bactrim on dc still with pain and drainage diabetes mellitus with hyperglycemia insulin paroxysmal atrial fibrillation continue Xarelto for anticoagulation hypertension losartan, imdur CAD/hyperlipidemia continue statin, baby aspirin, isosorbide, xarelto BPH Flomax chronic low back pain continue baclofen and gabapentin DVT prophylaxis-on Xarelto Full code reason for continued hospitalization: broad spectrum abx for high risk area infection in DM, significant pain Time Spent With Patient Time: Total time managing care of this patient today ____ minutes. Quality Stroke Does the patient have a stroke diagnosis?: No VTE Prior VTE?: No VTE Risk Level:: Medical - moderate - high VTE Device Contraindication: Treatment Not Indicated VTE Drug Contraindication: N/A - Med Ordered
[2023-05-04 11:53] VITALS: BP 119/69; PULSE 99; RESP 19; TEMP 36.1; O2SAT 99
[2023-05-04 14:36] LABS: Vancomycin Trough 18.6 mcg/mL (10.0-20.0)
--- NOTE | 2023-05-04 14:58 | HE.PHANOTE ---
RE: vanco level seems to be increasing and according to insight should not be this high. decided to decrease dose a little from 1000 q8h to 1250 q12h. will recheck level after he gets 2 more doses on 05/05 @1700 to ensure efficacy/safety.
[2023-05-04 16:00] VITALS: BP 134/80; PULSE 85; RESP 18; TEMP 36.4; O2SAT 98
[2023-05-04 19:08] VITALS: BP 112/62; PULSE 81; RESP 20; TEMP 36.2; O2SAT 94
[2023-05-05] VITALS: BP 142/90; PULSE 78; RESP 20; TEMP 36.1; O2SAT 97
[2023-05-05] MEDS: Piperacillin Sodium/Tazobactam 4.5 GM in 0.9 % Sodium Chloride 100 ML IV (03:15)
[2023-05-05 03:38] VITALS: BP 140/78; PULSE 74; RESP 20; TEMP 36.2; O2SAT 95
[2023-05-05 07:20] LABS: Creatinine Clr Calc Pharmacy 122.4; Estimated Glomerular Filt Rate > 60
[2023-05-05 07:32] VITALS: BP 142/77; PULSE 69; RESP 20; TEMP 36.3; O2SAT 98
--- NOTE | 2023-05-05 08:54 | PM.PNGS ---
Subjective Subjective Date of Service: 05/05/23 Interval history: Reports soreness at the incision and drainage site. Reports pain in his bilateral feet especially the 3rd left toe and the great right toe Physical Exam Vital Signs: Vital Signs: Last Vital Signs Temp 97.4 F 05/05/23 07:32 Pulse 69 05/05/23 07:32 Resp 20 05/05/23 07:32 BP 142/77 H 05/05/23 07:32 Pulse Ox 98 05/05/23 07:32 O2 Del Method Room Air 05/05/23 07:32 BMI result Body Mass Index 41.4 Const: General: comfortable and no acute distress Nutritional Appearance: well nourished Orientation/consciousness: patient oriented x3 Resp: Other: Breathing comfortably on room air GI: Other: Abdominal pubic incision is open and draining. Erythema is much smaller in the surrounding inflammatory changes are much reduced. Patient is developing irritation from the adhesive tape therefore a pink foam dressing was applied. Neuro: General: patient oriented x3 Extrem: Other: Bilateral feet examined. Small callus noted on the medial tip of the great toe right foot suggestive of a corn. No other ulceration, erythema, or abscess identified. Left foot reveals a small callus at the base of the 3rd toe on the plantar surface. No open wound could be identified. No other areas of concern were identified. Objective Data Active Medications Acetaminophen (Acetaminophen 325 Mg Tablet) 650 mg PO Q6H PRN PRN Reason: Pain, Mild (Pain Scale 1-3) Last Admin: 05/03/23 20:38 Dose: 650 mg Documented By: JAN Aspirin (Aspirin Enteric Coated 81 Mg Tablet.) 81 mg PO DAILY [facility] Last Admin: 05/05/23 07:55 Dose: 81 mg Documented By: SANNA Atorvastatin Calcium (Atorvastatin Calcium 80 Mg Tablet) 80 mg PO DAILY [facility] Last Admin: 05/05/23 07:56 Dose: 80 mg Documented By: SANNA Baclofen (Baclofen 10 Mg Tablet) 10 mg PO TID [facility] Last Admin: 05/05/23 07:56 Dose: Not Given Documented By: SANNA Non-Admin Reason: Patient Refused Dextrose (Dextrose 50 % 25 Gm/50 Ml Syringe) 25 gm IVPUSH Q15M PRN; Protocol PRN Reason: per Hypoglycemia Standing Ord. Ezetimibe (Ezetimibe 10 Mg Tablet) 10 mg PO DAILY [facility] Last Admin: 05/05/23 07:56 Dose: 10 mg Documented By: SANNA Furosemide (Furosemide 20 Mg Tablet) 20 mg PO BID [facility]; Protocol Last Admin: 05/05/23 07:55 Dose: 20 mg Documented By: SANNA Gabapentin (Gabapentin 300 Mg Capsule) 300 mg PO TID [facility] Last Admin: 05/05/23 07:56 Dose: 300 mg Documented By: SANNA Glucose (Glucose Gel 15 Gm Gel..Gram.) 15 gm PO Q15M PRN; Protocol PRN Reason: per Hypoglycemia Standing Ord. Hydromorphone HCl (Hydromorphone Hcl 0.5 Mg/0.5 Ml Syringe) 0.25 mg IVPUSH Q4H PRN; Protocol PRN Reason: Pain, Severe (Pain Scale 7-10) Last Admin: 05/05/23 04:59 Dose: 0.25 mg Documented By: LAZARA Piperacillin Sod/Tazobactam (Sod 4.5 gm/ Sodium Chloride) 100 mls @ 200 mls/hr IV Q8H [facility] Last Infusion: 05/05/23 04:53 Dose: 0 mls/hr Documented By: LAZARA Vancomycin HCl 1,250 mg/ (Sodium Chloride) 250 mls @ 166.667 mls/hr IV Q12H [facility] Last Infusion: 05/05/23 08:12 Dose: 0 mls/hr Documented By: SANNA Insulin Glargine (Insulin Glargine,Hum.Rec.Anlog 100 Unit/Ml 10 Ml Vial) 50 unit SUBCUT BEDTIME [facility] Last Admin: 05/04/23 20:45 Dose: 50 unit Documented By: OUMOU Insulin Human Lispro (Insulin Lispro 100 Unit/Ml 3 Ml Vial) 0 unit SUBCUT QIDACHS [facility]; Protocol Last Admin: 05/05/23 07:56 Dose: 2 unit Documented By: SANNA Insulin Human Lispro (Insulin Lispro 100 Unit/Ml 3 Ml Vial) 5 unit SUBCUT QIDACHS [facility] Last Admin: 05/05/23 07:57 Dose: 5 unit Documented By: SANNA Isosorbide Mononitrate (Isosorbide Mononitrate 30 Mg Tab.Er.24h) 30 mg PO DAILY [facility]; Protocol Last Admin: 05/05/23 07:56 Dose: 30 mg Documented By: SANNA Loratadine (Loratadine 10 Mg Tablet) 10 mg PO DAILY [facility] Last Admin: 05/05/23 07:55 Dose: 10 mg Documented By: SANNA Losartan Potassium (Losartan Potassium 25 Mg Tablet) 25 mg PO DAILY [facility]; Protocol Last Admin: 05/05/23 07:56 Dose: 25 mg Documented By: SANNA Montelukast Sodium (Montelukast Sodium 10 Mg Tablet) 10 mg PO BEDTIME [facility] Last Admin: 05/04/23 20:45 Dose: 10 mg Documented By: OUMOU Omeprazole (Omeprazole 20 Mg Capsule.Dr) 20 mg PO BID@0630,1630 [facility] Last Admin: 05/05/23 04:59 Dose: 20 mg Documented By: LAZARA Ondansetron HCl (Ondansetron Hcl 4 Mg/2 Ml Vial) 4 mg IVPUSH Q8H PRN PRN Reason: Nausea and Vomiting Oxycodone HCl (Oxycodone Hcl Immed Release 5 Mg Tablet) 5 mg PO Q6H PRN PRN Reason: Pain, Moderate(Pain Scale 4-6) Last Admin: 05/05/23 07:55 Dose: 5 mg Documented By: SANNA Pharmacy Consult (Consult Rx Perform Med Rec) 1 each MISCELLANE ONCE PRN PRN Reason: Consult order Pharmacy Consult (Consult Rx Vancomycin Dosing) 1 each MISCELLANE DAILY PRN PRN Reason: Consult order Rivaroxaban (Rivaroxaban 20 Mg Tablet) 20 mg PO DAILY@1700 [facility] Last Admin: 05/04/23 16:38 Dose: 20 mg Documented By: KATIA Sodium Chloride (0.9 % Sodium Chloride Flush 3 Ml Syringe) [facility] Last Admin: 05/05/23 08:00 Dose: 3 ml Documented By: SANNA Tamsulosin HCl (Tamsulosin Hcl 0.4 Mg Capsule) 0.4 mg PO DAILY [facility] Last Admin: 05/05/23 07:55 Dose: 0.4 mg Documented By: SANNA Thiamine HCl (Thiamine Hcl 100 Mg Tablet) 100 mg PO DAILY [facility] Last Admin: 05/05/23 07:56 Dose: 100 mg Documented By: SANNA Venlafaxine HCl (Venlafaxine Hcl 25 Mg Tablet) 100 mg PO BID [facility] Last Admin: 05/05/23 07:55 Dose: 100 mg Documented By: SANNA Zolpidem Tartrate (Zolpidem Tartrate 5 Mg Tablet) 5 mg PO BEDTIME [facility] Last Admin: 05/04/23 20:43 Dose: 5 mg Documented By: OUMOU Labs 05/04/23 06:28 05/05/23 06:42 Labs: Laboratory Results - last 24 hr 05/04/23 05/04/23 05/04/23 11:31 14:09 15:25 Estim Creat Clear Calc Estimated GFR POC Glucose 149 H 181 H Vancomycin Trough 18.6 05/04/23 05/05/23 05/05/23 19:10 06:42 07:04 Estim Creat Clear Calc 122.4 Estimated GFR > 60 POC Glucose 246 H 172 H Vancomycin Trough Procedures Date of Service Date of Service: 05/05/23 Progress Note: A&P Assessment and plan (1) Cellulitis: Status: Acute (2) Abscess: Status: Inactive (3) Cellulitis and abscess of foot: Status: Acute Plan Overall patient is much improved with decreased inflammation of the abdominal wall. He should continue with daily dressing changes and follow-up in the office in approximately 1 week. Culture revealed MRSA; agree with Bactrim. Diabetic foot: No open wounds could be identified. He does have an area of callus formation on the great toe. Follow-up with podiatry is recommended for routine foot care. Time Spent With Patient Time: Total time managing care of this patient today ____ minutes. Quality Stroke Does the patient have a stroke diagnosis?: No VTE Prior VTE?: No VTE Risk Level:: Medical - moderate - high VTE Device Contraindication: Treatment Not Indicated VTE Drug Contraindication: N/A - Med Ordered
--- NOTE | 2023-05-05 10:24 | PM.DS ---
DS: Providers Provider Date of Service: 05/05/23 Date of admission: 04/30/23 14:16 Primary care physician: Marley Rick MD Consults: 04/30/23 15:06 Consult to General Surgery Routine Consulting Provider: [facility] Reason for consultation: cellulitis and abscess DS: Diagnosis Discharge Diagnosis (1) Cellulitis: Status: Acute (2) Abscess: Status: Inactive (3) Cellulitis and abscess of foot: Status: Acute DS: Summary Hospital Course Hospital Course: from initial hpi: 61-year-old male with history of paroxysmal atrial fibrillation anticoagulated with Xarelto, mild intermittent asthma, insulin-dependent type 2 diabetes with hyperglycemia, peripheral artery disease with recent admission in 06/17 for osteomyelitis s/p amputation of the left great toe, hypertension, and coronary artery disease s/p quadruple bypass in 2018 presented to the ED earlier today for evaluation of pain, redness of the suprapubic area that has been worsening over the last 5 days. There are small pustules that have been spontaneously draining in the area. It is exquisitely painful, rated 10/10 radiating to the right scrotum. Denies fevers, chills. He was seen in the ED yesterday wtih WNC 11.1, CT abd/pelvis negative for cellulitis or abscess and was treated with IV vanco and zosyn and discharged home with doxycycline and keflex. Reviewed photos from ED yesterday, and area appeared consistent wtih carbuncle. The patient was unable to pickle maker the meds last night and this morning felt the area looked worse with 10/10 so presented to the ED. On arrival, VSS. WBC 11.5.? Renal function and electrolyte levels normal.? Lactic acid 2.4.? ED provider consult to General surgery who performed bedside incision and drainage and patient has been treated empirically with IV Zosyn, 5 units insulin, and 1 mg hydromorphone. hospital course: Patient was admitted for acute cellulitis and abscess of the groin. He underwent bedside I and D performed by General surgery, culture grew MRSA sensitive to Bactrim. He was treated with vancomycin and Zosyn while in hospital and will be transitioned to 5 more days of p.o. Bactrim outpatient. He will continue with daily dressing changes with 4 x 4 gauze. And follow-up with surgery. For diabetes with hyperglycemia was continued on insulin. For morbid obesity weight loss recommended. For paroxysmal atrial fibrillation was continued on Xarelto. For hypertension is continue losartan and Imdur. For coronary disease he was continued on aspirin statin. For hyperlipidemia is continue on statin. For BPH is continue on Flomax. For chronic low back pain he was continued on baclofen and gabapentin. Patient is feeling better will be discharged home. Time Spent with Patient Time attestation: Total time managing care of this patient today ____ minutes. Discharge coordination time: Greater than 30 minutes Quality: Safe Use of Opioids Does Pt have an Active Cancer Diagnosis on the Problem List?: No Quality: Stroke Does the patient have a stroke diagnosis?: No Physical Exam Vital Signs: Vital Signs: Last Vital Signs Temp 97.4 F 05/05/23 07:32 Pulse 69 05/05/23 07:32 Resp 20 05/05/23 07:32 BP 142/77 H 05/05/23 07:32 Pulse Ox 98 05/05/23 07:32 O2 Del Method Room Air 05/05/23 07:32 BMI result Body Mass Index 41.4 Const: General: comfortable and no acute distress Nutritional Appearance: well nourished Orientation/consciousness: patient oriented x3 Resp: Other: Breathing comfortably on room air GI: Other: Abdominal pubic incision is open and draining. Erythema is much smaller in the surrounding inflammatory changes are much reduced. Patient is developing irritation from the adhesive tape therefore a pink foam dressing was applied. Neuro: General: patient oriented x3 Extrem: Other: Bilateral feet examined. Small callus noted on the medial tip of the great toe right foot suggestive of a corn. No other ulceration, erythema, or abscess identified. Left foot reveals a small callus at the base of the 3rd toe on the plantar surface. No open wound could be identified. No other areas of concern were identified. DS: Data Data Completed and Pending Completed studies during hospitalization [Text1]: Procedures Detachment at Left 1st Toe, Complete, Open Approach (01/03/22) Fluoroscopy of Left Lower Extremity Arteries using High Osmolar Contrast (08/04/22) Fluoroscopy of Right Subclavian Vein using Low Osmolar Contrast, Guidance (08/04/22) Insertion of Infusion Device into Right Subclavian Vein, Percutaneous Approach (08/04/22) Insertion of Infusion Device into Superior Vena Cava, Percutaneous Approach (01/20/22) Ultrasonography of Superior Vena Cava, Guidance (01/03/22) Labs on day of discharge: Laboratory Results - last 24 hr 05/04/23 05/04/23 05/04/23 11:31 14:09 15:25 Creatinine Estim Creat Clear Calc Estimated GFR POC Glucose 149 H 181 H Vancomycin Trough 18.6 05/04/23 05/05/23 05/05/23 19:10 06:42 07:04 Creatinine 0.80 Estim Creat Clear Calc 122.4 Estimated GFR > 60 POC Glucose 246 H 172 H Vancomycin Trough Preliminary micro results at discharge 04/30/23 13:08 Blood Culture - Preliminary Blood - Venous No growth after 48 hours. 04/30/23 11:55 Blood Culture - Preliminary Blood - Venous No growth after 48 hours. Discharge Plan Discharge Anticipated Discharge Date/Time: 05/05/23 10:18 Patient Disposition: Home, Self-Care Discharge Diagnosis: cellultis, abscess Referrals: Pawel Hinton MD [Physician] - 1 Week () Arlyn Almaraz [Physician] - 2 Weeks Marley Rick MD [Primary Care Provider] - 1 Week Discharge Medications: New sulfamethoxazole-trimethoprim [Bactrim DS] 800-160 mg tablet 1 tab PO BID Qty: 10 0RF Continued (DME) walker Misc See Rx Instructions .Route Qty: 1 0RF Rx Instructions: As directed (DME) Aircast off loading boot Kit See Rx Instructions .Route Qty: 1 0RF Rx Instructions: As directed (DME) elastic bandage 6 X 1.8 -yard bandage See Rx Instructions .Route Qty: 6 0RF Rx Instructions: As directed (DME) gauze bandage [Band-Aid Gauze Pads] 4 X 4 bandage See Rx Instructions .Route Qty: 25 3RF Rx Instructions: As directed (DME) sterile gauze 4x4 See Rx Instructions .Route .MEDSUPPLY Qty: 40 3RF Rx Instructions: Apply to left foot wound every other day (DME) calcium alginate ag 4x4 pad See Rx Instructions .Route .MEDSUPPLY Qty: 5 2RF Rx Instructions: Apply to wound beds every other day insulin glargine [Lantus U-100 Insulin] 100 unit/mL solution 50 unit subcut QPM Rx Instructions: 50 units at lunch and 100 units at bedtime isosorbide mononitrate 30 mg tablet extended release 24 hr 1 tab PO DAILY thiamine HCl (vitamin B1) 100 mg tablet 1 tab PO DAILY pantoprazole 40 mg tablet,delayed release (DR/EC) 1 tab PO BID@0630,1630 losartan 25 mg tablet 1 tab PO DAILY gabapentin 300 mg capsule 1 cap PO TID montelukast 10 mg tablet 1 tab PO BEDTIME insulin lispro 100 unit/mL solution 40 unit subcut TIDAC Rx Instructions: sliding scale zolpidem 10 mg tablet 1 tab PO BEDTIME loratadine 10 mg tablet 1 tab PO DAILY ezetimibe 10 mg tablet 1 tab PO DAILY rosuvastatin 40 mg tablet 1 tab PO BEDTIME oxycodone [OxyContin] 20 mg tablet,oral only,ext.rel.12 hr 1 tab PO BID PRN (Reason: Severe Pain (Scale Score 7-10)) ondansetron HCl 4 mg tablet 1 tab PO TID PRN (Reason: nausea) meclizine 25 mg tablet 1 tab PO TID (DME) [facility] See Rx Instructions .Route Qty: 1 0RF Rx Instructions: As directed Xarelto 20 mg tablet 1 tab PO DAILY@1700 aspirin 81 mg tablet,delayed release (DR/EC) 1 tab PO DAILY tamsulosin 0.4 mg capsule 1 cap PO DAILY venlafaxine 100 mg tablet 1 tab PO BID baclofen 10 mg tablet 1 tab PO TID furosemide 20 mg tablet 1 tab PO BID oxycodone 5 mg tablet 10 mg PO Q4H Qty: 15 0RF valacyclovir [Valtrex] 1 gram tablet 1,000 mg PO Q8H PRN (Reason: Cold Sores) Discharge Orders: Discharge Order (Routine); Ordered 05/05/23 Ordered By: Carl Jeong Diet: Advance to usual diet Activity on Discharge: As tolerated Stand Alone Forms: Patient Portal Discharge page Care Plan Goals: recovery Health Concerns: cellulitis, abscess Plan of Treatment: 5 more days bactrim Assessment: see above
--- NOTE | 2023-05-05 10:30 | MHC.CM.PN ---
PT BEING DISCHARGED HOME TODAY HOME HEALTH SERVICES ORDERED FOR DAILY DRESSING CHANGES REFERRALS MADE TO [facility] CONTRACTED AGENCIES, NO ONE IS OFFERING CM MET WITH PT TO DISCUSS DC PT REPORTS HE FEELS HIS CAN EASILY MANAGE THE DRESSING HE REPORTS SHE WILL BE BEDSIDE SOON HE IS AWARE THE RN WILL MEET WITH HIM AND TO PROVIDE INSTRUCTIONS FOR DRESSING PLACEMENT EXTRA DRESSING SUPPLIES WITH ALSO BE PROVIDED PT WILL FOLLOW UP WITH SURGEON IN ONE WEEK WILL TRANSPORT HOME
[2023-05-05 11:16] VITALS: BP 131/82; PULSE 95; RESP 20; TEMP 36; O2SAT 99
== END 2023-05-05 13:20 | disposition home or self-care (01) | DRG 364 ==
LOC: HO.ED 14:16 → HO.EDOVER 14:37 → HO.IMC 15:02
PROVIDERS: Admitting Provider Physician Assistant; Emergency Provider Emergency Medicine; PCP Internal Medicine; Visit Provider Internal Medicine
DX: L02.214 Cutaneous abscess of groin (principal); B95.62 Methicillin resistant Staphylococcus aureus infection as the cause of diseases classified elsewhere; E11.65 Type 2 diabetes mellitus with hyperglycemia; E78.5 Hyperlipidemia, unspecified; G89.29 Other chronic pain; L03.314 Cellulitis of groin; I10 Essential (primary) hypertension; I25.10 Atherosclerotic heart disease of native coronary artery without angina pectoris; J45.20 Mild intermittent asthma, uncomplicated; I48.0 Paroxysmal atrial fibrillation; N40.0 Benign prostatic hyperplasia without lower urinary tract symptoms; M54.59 Other low back pain; Z95.1 Presence of aortocoronary bypass graft; Z79.4 Long term (current) use of insulin; Z79.01 Long term (current) use of anticoagulants; Z79.82 Long term (current) use of aspirin; Z79.899 Other long term (current) drug therapy
CPT/HCPCS: 36415; 80048; 80053; 80202; 82565; 82947; 83605; 83690; 85025; 85027; 87040; 87070; 87077; 87186; 87205; 93005; 99285; J1170; J2543; J3370; J3371

== ENCOUNTER → 2023-04-30 14:16 | Outpatient (BNV) | payer OTHER, SELFPAY | PROVIDERS: Admitting Provider Physician Assistant; Emergency Provider Emergency Medicine; Visit Provider Physician Assistant | DX: L03.90 Cellulitis, unspecified (principal); L02.91 Cutaneous abscess, unspecified; L03.119 Cellulitis of unspecified part of limb; L02.619 Cutaneous abscess of unspecified foot | CPT/HCPCS: 99223; 99232; 99233; 99239 ==

== ENCOUNTER 2023-05-15 13:26 | Outpatient (AMB) | payer OTHER, SELFPAY ==
--- NOTE | 2023-05-15 13:34 | MHC.OFFVIS ---
Intake Vital Signs 05/15/23 13:42 Height 5 ft 9 in Weight 251 lb 2 oz BMI 37.1 BP 103/59 L Blood Pressure Location Lt brachial Position Sitting Pulse 100 Intake Visit Reasons: cellulitis/abscess groin Intake Note: Patient is seen in office for ER follow up visit, following cellulitis/abscess of the groin. Patient c/o: cellulitis/MRSA seen in the ED of 04/29/23 and was given antibiotics, came back then and was admitted in ED, currently is sealed up, has a hard lump, some redness, pain 7out 10, denies discharge, nausea, vomit, diarrhea, constipation, all done with antibiotics Regional Clinical Research Associate Required: No Accompanied by: Family/Other Allergies morphine Adverse Reaction (Intermediate, Verified 05/15/23 13:41) Hallucinations Medication List - Last Reconciled 05/15/23 by Pawel Hinton MD aspirin 1 tab PO DAILY baclofen 1 tab PO TID Band-Aid Gauze Pads (gauze bandage) As directed NS [calcium alginate ag Apply to wound beds every other day] elastic bandage As directed ezetimibe 1 tab PO DAILY furosemide 1 tab PO BID gabapentin 1 cap PO TID insulin glargine (Lantus U-100 Insulin) 50 units subcut QPM insulin lispro 40 units subcut TIDAC isosorbide mononitrate ER 1 tab PO DAILY loratadine 1 tab PO DAILY losartan 1 tab PO DAILY meclizine 1 tab PO TID montelukast 1 tab PO BEDTIME off loading boot (Aircast off loading boot) As directed ondansetron HCl 1 tab PO TID PRN oxycodone 10 mg (2 x 5 mg) PO Q4H oxycodone ER (OxyContin) 1 tab PO BID PRN pantoprazole 1 tab PO BID@0630,1630 rivaroxaban (Xarelto) 1 tab PO DAILY@1700 rosuvastatin 1 tab PO BEDTIME [sterile gauze Apply to left foot wound every other day] sulfamethoxazole-trimethoprim 800-160 mg (Bactrim DS) 1 tab PO BID tamsulosin 1 cap PO DAILY thiamine HCl (vitamin B1) 1 tab PO DAILY valacyclovir (Valtrex) 1,000 mg PO Q8H PRN venlafaxine 1 tab PO BID walker As directed walker As directed zolpidem 1 tab PO BEDTIME HPI HPI Comments History of Present Illness Details Patient returns following a recent admission for a groin abscess which required incision and drainage. The subsequent wound culture revealed MRSA. He was discharged home on Bactrim for 1 week which he has completed. He reports a palpable nodule at the site of incision and drainage which is tender. He denies fever or chills. [facility] Medical History Afib Amputation of left great toe Asthma CAD (coronary artery disease) Cellulitis Diabetes DMII (diabetes mellitus, type 2) FHx: bilateral hip replacements Hyperglycemia Hypertension Lower limb amputation, great toe Orthopedic hardware present PAD (peripheral artery disease) Surgical History H/O bilateral hip replacements History of amputation of great toe (01/07/22) History of amputation of toe (07/29/22) History of ankle surgery History of back surgery History of neck surgery S/P quadruple vessel bypass Family History Other No family history of coronary artery disease Social History Household Members: Spouse Household Members Other:: 3 Housing: Apartment Are you a primary hearing care practitioner to a significant other at home: No Do you presently have visiting nurse or other home services: No Alcohol intake: never Patient Tobacco Use Status: Former Tobacco user Quit Date: 30 years ago Tobacco use type: Cigarette Second Hand Smoke Exposure: No Advance Directives Date on File: 01/04/22 service: No Current occupational status: disabled Review of Systems Const All systems reviewed & are unremarkable except as noted in HPI and below Skin/Breast Reports as per HPI Physical Exam Vital Signs: Last Vital Signs Pulse 100 05/15/23 13:42 BP 103/59 L 05/15/23 13:42 BMI result Body Mass Index 37.1 Const General: no acute distress Nutritional Appearance: well nourished Orientation/consciousness: patient oriented x3 Resp Effort & Inspection: normal respiratory effort GI Other: Small palpable area of fluctuance at this site of the previous incision and drainage, measuring approximately 2 cm in diameter. Surrounding erythema is resolved. Findings are suggestive of residual abscess in the pubis. Abdomen image: 1. Site of abscess. Skin Other: As noted in abdomen above Neuro General: patient oriented x3 Office Procedures I&D Drain Details: Preoperative diagnosis: Abscess of pubis Postoperative diagnosis: Same Procedure: Incision and drainage abscess of pubis Surgeon: Pawel Hinton MD Sanitation Laborer: None Anesthesia: Lidocaine 1% Indications for procedure: 62-year-old male patient with a recurrent abscess of the pubis Operative findings: Small purulent collection located superficial in the abdominal wall Specimen: Wound culture Estimated blood loss: Less than 1 mL Complications: None Procedure details: Patient was placed in a supine position. After assuring informed consent the skin was prepped with Betadine and draped in a sterile fashion. Local anesthesia was infiltrated around the previous I and D site. An 11 blade was then used to incise the abscess cavity. A wound culture was obtained. Wounds were then irrigated with saline solution and packed with quarter-inch Nu Gauze. Dry sterile dressings were then applied. The patient tolerated the procedure well was discharged to home in stable condition. [id number] of Skin Abscess, simple All charges added?: Procedure code (CPT) selection complete Assessment & Plan Assessment & Plan (1) Abscess of abdominal wall: Code(s): L02.211 - Cutaneous abscess of abdominal wall Plan Patient presents with a recurrent abscess of the abdominal wall which is much smaller than the previous finding. I recommended a repeat incision and drainage. After discussion of the procedure, risks, and alternatives, he consents. He will return in 1 week for wound examination. Medications: Refilled sulfamethoxazole-trimethoprim 800-160 mg (Bactrim DS) 1 tab PO BID 10 tabs 0RF Discontinued valacyclovir 1,000 mg PO Q8H 21 tabs 0RF Coding Level of Care Code Est Pt Level 3 (80730) Diagnoses Abscess of abdominal wall L02.211 CPT Codes I&D Drain - Drain 1: [id number]-[id number] of Skin Abscess, simple ([id number])
[2023-05-15 13:42] VITALS: BP 103/59; PULSE 100; BMI 37.1
== END 2023-05-15 14:10 | disposition home or self-care (01) ==
PROVIDERS: PCP Internal Medicine; Visit Provider Surgery
DX: L02.211 Cutaneous abscess of abdominal wall (principal)
CPT/HCPCS: 10060; 99213

== ENCOUNTER → 2023-05-15 13:26 | Outpatient (BNVA) | payer OTHER, SELFPAY | PROVIDERS: PCP Internal Medicine; Visit Provider Surgery | DX: L02.211 Cutaneous abscess of abdominal wall (principal) | CPT/HCPCS: 10060; 99212 ==

== ENCOUNTER 2023-05-15 15:56 | Outpatient (REF) | payer OTHER, SELFPAY | END 2023-05-15 15:57 | disposition home or self-care (01) | LOC: HO.LNP 15:56 | PROVIDERS: Visit Provider Surgery | DX: L02.211 Cutaneous abscess of abdominal wall (principal) | CPT/HCPCS: 10060; 87070; 87077; 87186; 87205 ==

== ENCOUNTER 2023-05-27 14:11 | Outpatient (AMB) | payer OTHER, SELFPAY ==
--- NOTE | 2023-05-27 14:19 | MHC.OFFVIS ---
Intake Vital Signs 05/27/23 14:22 Height 5 ft 9 in Weight 252 lb 6 oz BMI 37.3 BP 111/59 L Blood Pressure Location Lt brachial Position Sitting Pulse 92 Intake Visit Reasons: 1 wk follow up abscess of groin Intake Note: Patient is seen in office for one week follow up visit, following abscess of the groin. Patient c/o: continued pain and still feels a lump in the area. Insurance Underwriter Sales Required: No Accompanied by: Self / Same As Patient Allergies morphine Adverse Reaction (Intermediate, Verified 05/27/23 14:26) Hallucinations Medication List - Last Reconciled 05/27/23 by Pawel Hinton MD aspirin 1 tab PO DAILY baclofen 1 tab PO TID Band-Aid Gauze Pads (gauze bandage) As directed NS [calcium alginate ag Apply to wound beds every other day] elastic bandage As directed ezetimibe 1 tab PO DAILY furosemide 1 tab PO BID gabapentin 1 cap PO TID insulin glargine (Lantus U-100 Insulin) 50 units subcut QPM insulin lispro 40 units subcut TIDAC isosorbide mononitrate ER 1 tab PO DAILY loratadine 1 tab PO DAILY losartan 1 tab PO DAILY meclizine 1 tab PO TID montelukast 1 tab PO BEDTIME off loading boot (Aircast off loading boot) As directed ondansetron HCl 1 tab PO TID PRN oxycodone 10 mg (2 x 5 mg) PO Q4H oxycodone ER (OxyContin) 1 tab PO BID PRN pantoprazole 1 tab PO BID@0630,1630 rivaroxaban (Xarelto) 1 tab PO DAILY@1700 rosuvastatin 1 tab PO BEDTIME [sterile gauze Apply to left foot wound every other day] sulfamethoxazole-trimethoprim 800-160 mg (Bactrim DS) 1 tab PO BID tamsulosin 1 cap PO DAILY thiamine HCl (vitamin B1) 1 tab PO DAILY valacyclovir (Valtrex) 1,000 mg PO Q8H PRN venlafaxine 1 tab PO BID walker As directed walker As directed zolpidem 1 tab PO BEDTIME HPI HPI Comments History of Present Illness Details Patient returns for follow-up examination after incision and drainage of a pubic cyst. Overall he is improved but still feels a nodule at the site of the surgery. He denies any bleeding or discharge. [facility] Medical History Afib Amputation of left great toe Asthma CAD (coronary artery disease) Cellulitis Diabetes DMII (diabetes mellitus, type 2) FHx: bilateral hip replacements Hyperglycemia Hypertension Lower limb amputation, great toe Orthopedic hardware present PAD (peripheral artery disease) Surgical History H/O bilateral hip replacements History of amputation of great toe (01/07/22) History of amputation of toe (07/29/22) History of ankle surgery History of back surgery History of neck surgery S/P quadruple vessel bypass Family History Other No family history of coronary artery disease Social History Household Members: Spouse Household Members Other:: 3 Housing: Apartment Are you a primary hospice home care coordinator to a significant other at home: No Do you presently have visiting nurse or other home services: No Alcohol intake: never Patient Tobacco Use Status: Former Tobacco user Quit Date: 30 years ago Tobacco use type: Cigarette Second Hand Smoke Exposure: No Advance Directives Date on File: 01/04/22 service: No Current occupational status: disabled Physical Exam Vital Signs: Last Vital Signs Pulse 92 05/27/23 14:22 BP 111/59 L 05/27/23 14:22 BMI result Body Mass Index 37.3 Const General: comfortable and no acute distress Nutritional Appearance: well nourished Orientation/consciousness: patient oriented x3 Resp Effort & Inspection: normal respiratory effort GI Other: Pubic I&D is now fully healed. There is no palpable fluctuance, erythema, or tenderness. Skin Other: Warm, dry, no rash. Neuro General: patient oriented x3 Assessment & Plan Assessment & Plan (1) Abscess of abdominal wall: Code(s): L02.211 - Cutaneous abscess of abdominal wall Plan 62-year-old male status post incision and drainage of an abscess of the abdominal wall. His wounds are now well healed. There is still a palpable cyst which could be excise to prevent further infections. After discussion of the procedure, risks and alternatives, the patient has decided to avoid any further surgery at this time. He will call should the symptoms developed once again. Medications: Discontinued valacyclovir 1,000 mg PO Q8H 21 tabs 0RF Coding Level of Care Code Global (25655) Diagnoses Abscess of abdominal wall L02.211
[2023-05-27 14:22] VITALS: BP 111/59; PULSE 92; BMI 37.3
== END 2023-05-27 14:29 | disposition home or self-care (01) ==
PROVIDERS: PCP Internal Medicine; Visit Provider Surgery
DX: L02.211 Cutaneous abscess of abdominal wall (principal)
CPT/HCPCS: 99024

== ENCOUNTER → 2023-05-27 14:11 | Outpatient (BNVA) | payer OTHER, SELFPAY | PROVIDERS: PCP Internal Medicine; Visit Provider Surgery ==

== ENCOUNTER 2023-11-03 12:27 | Emergency (ER) | payer OTHER, SELFPAY ==
[2023-11-03 12:52] VITALS: BP 145/82; BP 156/76; PULSE 92; RESP 17; TEMP 36.8; O2SAT 99; BMI 39.5
--- NOTE | 2023-11-03 12:57 | ED.GENADULT ---
HPI - General Adult General Chief complaint: General Medical Stated complaint: FLU LIKE SYMPTOMS X 2 DAYS Source: patient and EMS Mode of arrival: EMS Limitations: no limitations History of Present Illness HPI narrative: Patient is a 62 year old assigned male at with a history of diabetes and recent exposure to COVID-19 positive family presenting to the emergency department today with nausea, vomiting, and abdominal pain. Patient states that over the last 2 days he has felt generally unwell with nausea, vomiting, and abdominal pain. Patient states that his son did recently test positive for COVID-19. Patient denies any dizziness, lightheadedness, fever, chills, blurry vision, double vision, loss of vision, chest pain, difficulty breathing, shortness of breath, back pain, night sweats, pain with urination, increased urinary frequency, increased urinary urgency, blood in his urine or stool, syncope or a near syncopal episode, recent trauma or falls, bowel incontinence, bladder incontinence, bowel retention, bladder retention, or any other complaints at this time. Patient was given 600ml of NS by EMS. Onset (ago): day(s) (2) Severity: mild Relieving factors: none Exacerbating factors: none Associated symptoms: nausea/vomiting Treatments prior to arrival: other (NS by EMS) Related Data Home Medications Medication Instructions Recorded Confirmed ezetimibe 10 mg tablet 1 tab PO DAILY 01/03/22 05/27/23 gabapentin 300 mg capsule 1 cap PO TID 01/03/22 05/27/23 insulin glargine 100 unit/mL 50 unit subcut QPM 01/03/22 05/27/23 subcutaneous solution (Lantus U-100 Insulin) insulin lispro 100 unit/mL 40 unit subcut TIDAC 01/03/22 05/27/23 subcutaneous solution isosorbide mononitrate 30 mg 1 tab PO DAILY 01/03/22 05/27/23 tablet,extended release 24 hr loratadine 10 mg tablet 1 tab PO DAILY 01/03/22 05/27/23 losartan 25 mg tablet 1 tab PO DAILY 01/03/22 05/27/23 meclizine 25 mg tablet 1 tab PO TID 01/03/22 05/27/23 montelukast 10 mg tablet 1 tab PO BEDTIME 01/03/22 05/27/23 ondansetron HCl 4 mg tablet 1 tab PO TID PRN nausea 01/03/22 05/27/23 oxycodone 20 mg tablet,crush 1 tab PO BID PRN Severe Pain 01/03/22 05/27/23 resistant,extended release 12 hr (Scale Score 7-10) (OxyContin) pantoprazole 40 mg tablet,delayed 1 tab PO BID@0630,1630 01/03/22 05/27/23 release rosuvastatin 40 mg tablet 1 tab PO BEDTIME 01/03/22 05/27/23 thiamine HCl (vitamin B1) 100 mg 1 tab PO DAILY 01/03/22 05/27/23 tablet zolpidem 10 mg tablet 1 tab PO BEDTIME 01/03/22 05/27/23 rivaroxaban 20 mg tablet (Xarelto) 1 tab PO DAILY@1700 07/23/22 05/27/23 aspirin 81 mg tablet,delayed 1 tab PO DAILY 08/04/22 05/27/23 release tamsulosin 0.4 mg capsule 1 cap PO DAILY 08/04/22 05/27/23 baclofen 10 mg tablet 1 tab PO TID 11/13/22 05/27/23 furosemide 20 mg tablet 1 tab PO BID 11/13/22 05/27/23 venlafaxine 100 mg tablet 1 tab PO BID 11/13/22 05/27/23 valacyclovir 1 gram tablet 1,000 mg PO Q8H PRN Cold Sores 04/30/23 05/27/23 (Valtrex) Previous Rx's Medication Instructions Recorded walker #1 ea 01/11/22 walker #1 ea 01/15/22 Band-Aid Gauze Pads 4 X 4 #25 ea 04/16/22 bandage (gauze bandage) elastic bandage 6 X 1.8 yard #6 ea 04/16/22 off loading boot (Aircast off #1 ea 04/16/22 loading boot) calcium alginate ag #5 ea 04/23/22 sterile gauze #40 ea 04/23/22 oxycodone 5 mg tablet 10 mg (2 x 5 mg) PO Q4H #15 tabs 11/16/22 sulfamethoxazole 800 1 tab PO BID #10 tabs 05/15/23 mg-trimethoprim 160 mg tablet (Bactrim DS) Allergies Allergy/AdvReac Type Severity Reaction Status Date / Time morphine AdvReac Intermediate Hallucinati Verified 05/27/23 14:26 ons Review of Systems Constitutional: Constitutional: Reports no additional constitutional complaints, Denies chills, Denies fever(s) and Denies night sweats Eyes: Eyes: Reports no additional eye complaints, Denies blurry vision, Denies change in vision, Denies diplopia, Denies eye discharge, Denies loss of vision and Denies eye pain ENT: Denies dizziness Cardiovascular: Cardiovascular: Reports no additional cardiovascular complaints, Denies chest pain, Denies lightheadedness, Denies Loss of Consciousness and Denies dyspnea Respiratory: Respiratory: Reports no additional respiratory complaints and Denies dyspnea Gastrointestinal: Gastrointestinal: Reports no additional gastrointestinal complaints, Reports abdominal pain, Denies melena, Denies hematochezia, Denies change in bowel habits, Denies change in stool character, Reports nausea and Reports vomiting Genitourinary: Genitourinary: Reports no additional male genitourinary complaints, Denies hematuria, Denies oliguria, Denies difficulty urinating, Denies dysuria, Denies urinary frequency, Denies urinary hesitancy, Denies urinary incontinence and Denies urinary urgency Musculoskeletal: Musculoskeletal: Reports no additional musculoskeletal complaints, Denies numbness and Denies tingling Neurologic: Denies dizziness, Denies loss of vision, Denies numbness and Denies tingling Psychiatric: Psychiatric: Reports no additional psychiatric complaints Endocrine: Endocrine: Reports no additional endocrine complaints Hematologic/Lymphatic: Hematologic/Lymphatic: Reports no additional hematologic/lymphatic complaints Allergic/Immunologic: Allergic/Immunologic: Reports no additional allergic/immunologic complaints [facility] Past Medical History Attestation statement: The following information was validated with the patient. Source: old records reviewed and nursing notes reviewed Onset Date is defined in the Problem List Problems that require an onset date and time if occurred within 24 hrs of arrival to the ED Aortic Dissection and Rupture; Neurologic impairment; Cardiopulmonary Arrest; Endotracheal Intubation; Insertion or Replacement of Mechanical Circulatory Assist Device Medical History PAD (peripheral artery disease) Afib Amputation of left great toe Lower limb amputation, great toe CAD (coronary artery disease) DMII (diabetes mellitus, type 2) Orthopedic hardware present Hyperglycemia Cellulitis Asthma Diabetes Hypertension FHx: bilateral hip replacements Surgical History History of amputation of toe (07/29/22) History of amputation of great toe (01/07/22) History of back surgery History of neck surgery History of ankle surgery H/O bilateral hip replacements S/P quadruple vessel bypass Family History Family History Other No family history of coronary artery disease Social History Social History Household Members: Spouse Household Members Other:: 3 Housing: Apartment Are you a primary floor care technician to a significant other at home: No Do you presently have visiting nurse or other home services: No Alcohol intake: never Comment: refused bed or chair alarm Patient Tobacco Use Status: Former Tobacco user Quit Date: 30 years ago Tobacco use type: Cigarette Second Hand Smoke Exposure: No Advance Directives: No Advance Directives Information Provided: No Advance Directives Date on File: 01/04/22 service: No Current occupational status: disabled Physical Exam ED Vital Signs: Vital Signs - 24 hr 11/03/23 17:43 Temperature 96.7 F L Pulse Rate 108 H Respiratory Rate 22 H Blood Pressure 183/93 H Pulse Oximetry 98 Oxygen Delivery Method Room Air BMI result Body Mass Index 39.5 Const General: cooperative, no acute distress, alert and awake Nutritional Appearance: well nourished Orientation/consciousness: patient oriented x3 Limitations: no limitations HENMT Head: Yes normal to inspection and Yes atraumatic Ears: hearing grossly normal bilaterally and external ears normal General nose exam: Normal external nose present, no nasal discharge noted and no epistaxis Face and sinus: Yes normal facial exam, No abrasion and No laceration Mouth: Normal oral and palatal mucosa present, no drooling and no muffled voice Eyes General: appearance normal, both eyes and all related structures Periorbital: periorbital findings normal Eyelids: Yes eyelids normal Conjunctivae: conjunctivae normal Pupils: Equal, round and reactive pupils present EOM: EOMs intact bilaterally Neck Neck: Yes normal visual inspection, Yes full ROM and Yes no lymphadenopathy Chest Chest palpation & inspection: normal inspection of the chest Resp Effort & Inspection: normal respiratory effort and able to speak in complete sentences GI Inspection: Yes normal to inspection Neuro General: patient oriented x3 and moves all extremities Cranial nerves: Yes Equal, round and reactive pupils present Cognition (Neuro): normal cognition Motor exam (neuro): 5/5 motor strength present throughout Sensory Exam: Normal double simultaneous stimulation for sensation Coordination: [id number] test normal Extrem General: Yes normal to inspection, Yes full ROM and Yes capillary refill normal Psych Appearance: grossly normal Mental Status: mental status grossly normal Affect: normal affect Attitude: cooperative Thought process: Normal thought process present Thought content: Normal thought content present Insight: Good insight present (Psych) Course Course Course Narrative: RME performed by Anna Piedra PA-C. Patient is a 62 year old assigned male at presenting to the emergency department with nausea and a headache. Patient states that his son is COVID-19 positive and was recently admitted to the hospital for it. 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 Swabs ordered. Patient placed back in the waiting room pending room availability and results. Medications Administered Discontinued Medications Generic Name Dose Route Start Last Admin Trade Name Freq PRN Reason Stop Dose Admin Ondansetron HCl 4 mg 11/03/23 13:01 11/03/23 13:03 Ondansetron Hcl 4 Mg/2 Ml Vial IVPUSH 11/03/23 13:02 4 mg ONCE ONE Administration Ondansetron HCl 4 mg 11/03/23 17:45 11/03/23 17:47 Ondansetron Odt 4 Mg Tab.Rapdis TRANSLINGU 11/03/23 17:46 4 mg ONCE ONE Administration Medical Decision Making Medical Decision Making MDM Narrative: Patient is a 62 year old assigned male at with a history of DM and recent exposure to a known COVID-19 positive individual presenting to the emergency department today with abdominal pain, nausea, and vomiting. Patient's limited physical exam performed in triage was unremarkable. Patient's blood work showed an elevated blood glucose and beta-hydroxybutyrate. The rest of the patient's labs were largely unremarkable. Patient's RSV and influenza tests were negative. Patient's COVID-19 test was positive. Patient was given 1 IV dose of Zofran and 1 ODT dose of Zofran while he was in the waiting room. Patient left the department without completing treatment. Patient left the department before myself or any of the other emergency department clinicians could review or explain physical exam findings, test results, need or lack there of for additional testing, treatment options, or a treatment plan. Differential Diagnosis Differential Diagnoses: The differential diagnosis associated with the presentation includes DKA COVID-19 Hyperglycemia Admission/Observation Consideration of admission/observation: Escalation of care including admission/observation considered Patient would have been admitted to the hospital had his work up had any findings where hospital admission was appropriate, his clinical presentation warranted hospital admission, and he hadn't left the department. Lab Data [facility] Lab Attestation statement: I reviewed the patient's lab results. My interpretation of these results are in the [facility] Rationale portion of this note. 11/03/23 13:28 11/03/23 13:28 Labs: Lab Results 11/03/23 11/03/23 Range/Units 13:28 13:29 WBC 7.1 (4.8-10.8) X10*3/uL RBC 5.02 (4.60-5.80) X10*6/uL Hgb 14.8 D (14.0-18.0) g/dl Hct 43.1 (42.0-52.0) % MCV 85.9 (80.0-98.0) fL MCH 29.5 (27.0-33.0) pg MCHC 34.3 (31.0-36.0) g/dl RDW 12.9 (11.0-16.0) % Plt Count 225 (160-400) X10*3/uL MPV 10.2 (9.4-12.4) fL Immature Gran % (Auto) 0.4 (0.0-0.4) % Neut % (Auto) 70.6 (45-73) % Lymph % (Auto) 14.9 L (20-40) % [place] % (Auto) 13.8 H (2-11) % Eos % (Auto) 0.0 (0-4) % Baso % (Auto) 0.3 (0-2) % Lymph # (Auto) 1.1 L (1.2-4.9) X10*3/uL [place] # (Auto) 1.0 (0.1-1.2) X10*3/uL Eos # (Auto) 0.0 (0.0-0.4) X10*3/uL Baso # (Auto) 0.0 (0.0-0.2) X10*3/uL Abs Immat Gran (auto) 0.03 (0.00-0.03) X10*3/uL Absolute Neuts (auto) 5.0 (2.0-8.3) x10*3/uL Absolute Nucleated RBC 0.000 (0.0-0.012) X10*3/uL Nucleated RBC % (auto) 0.0 (0.0-0.2) /100WBC Sodium 137 (135-145) mmol/L Potassium 4.0 (3.3-5.1) mmol/L Chloride 107 (96-108) mmol/L Carbon Dioxide 19 L (22-29) mmol/L Anion Gap 15 (12-20) BUN 10 (9-16) mg/dL Creatinine 0.83 (0.5-1.4) mg/dL Estim Creat Clear Calc 115.1 Estimated GFR > 60 Random Glucose 276 H (60-115) mg/dL Calcium 9.0 (8.4-10.2) mg/dL Magnesium 2.3 (1.6-2.6) mg/dL Total Bilirubin 0.5 (0.0-1.0) mg/dL AST 18 (5-37) U/L ALT 18 (0-40) U/L Alkaline Phosphatase 67 (39-117) U/L Total Protein 7.0 (6.5-8.0) g/dL Albumin 4.0 (3.5-5.0) g/dL Beta-Hydroxybutyrate 1.73 H (0.02-0.27) mmol/L Influenza Type A (PCR) NEGATIVE (Negative) Influenza Type B (PCR) NEGATIVE (Negative) RSV RNA Qual (PCR) NEGATIVE (Negative) SARS-CoV-2 RNA (RT-PCR) POSITIVE A (Negative) Independent Historian Clinical information obtained from an independent historian. History obtained from or confirmed by: EMS (EMS provided additional history and confirmed the history provided by the patient.) Discharge Plan Discharge Clinical Impression: COVID-19 Patient Disposition: Left W/O Completing Treatment Prescriptions: No Action (DME) walker Misc See Rx Instructions .Route Qty: 1 0RF Rx Instructions: As directed (DME) Aircast off loading boot Kit See Rx Instructions .Route Qty: 1 0RF Rx Instructions: As directed (DME) elastic bandage 6 X 1.8 -yard bandage See Rx Instructions .Route Qty: 6 0RF Rx Instructions: As directed (DME) gauze bandage [Band-Aid Gauze Pads] 4 X 4 bandage See Rx Instructions .Route Qty: 25 3RF Rx Instructions: As directed (DME) sterile gauze 4x4 See Rx Instructions .Route .MEDSUPPLY Qty: 40 3RF Rx Instructions: Apply to left foot wound every other day (DME) calcium alginate ag 4x4 pad See Rx Instructions .Route .MEDSUPPLY Qty: 5 2RF Rx Instructions: Apply to wound beds every other day insulin glargine [Lantus U-100 Insulin] 100 unit/mL solution 50 unit subcut QPM Rx Instructions: 50 units at lunch and 100 units at bedtime isosorbide mononitrate 30 mg tablet extended release 24 hr 1 tab PO DAILY thiamine HCl (vitamin B1) 100 mg tablet 1 tab PO DAILY pantoprazole 40 mg tablet,delayed release (DR/EC) 1 tab PO BID@0630,1630 losartan 25 mg tablet 1 tab PO DAILY gabapentin 300 mg capsule 1 cap PO TID montelukast 10 mg tablet 1 tab PO BEDTIME insulin lispro 100 unit/mL solution 40 unit subcut TIDAC Rx Instructions: sliding scale zolpidem 10 mg tablet 1 tab PO BEDTIME loratadine 10 mg tablet 1 tab PO DAILY ezetimibe 10 mg tablet 1 tab PO DAILY rosuvastatin 40 mg tablet 1 tab PO BEDTIME oxycodone [OxyContin] 20 mg tablet,oral only,ext.rel.12 hr 1 tab PO BID PRN (Reason: Severe Pain (Scale Score 7-10)) ondansetron HCl 4 mg tablet 1 tab PO TID PRN (Reason: nausea) meclizine 25 mg tablet 1 tab PO TID (DME) walker Misc See Rx Instructions .Route Qty: 1 0RF Rx Instructions: As directed Xarelto 20 mg tablet 1 tab PO DAILY@1700 aspirin 81 mg tablet,delayed release (DR/EC) 1 tab PO DAILY tamsulosin 0.4 mg capsule 1 cap PO DAILY venlafaxine 100 mg tablet 1 tab PO BID baclofen 10 mg tablet 1 tab PO TID furosemide 20 mg tablet 1 tab PO BID oxycodone 5 mg tablet 10 mg PO Q4H Qty: 15 0RF valacyclovir [Valtrex] 1 gram tablet 1,000 mg PO Q8H PRN (Reason: Cold Sores) sulfamethoxazole-trimethoprim [Bactrim DS] 800-160 mg tablet 1 tab PO BID Qty: 10 0RF Discharge Date/Time: 11/03/23 23:56
[2023-11-03 14:03] LABS: Alanine Aminotransferase 18 U/L (0-40); Alkaline Phosphatase 67 U/L (39-117); Anion Gap 15 (12-20); Aspartate Amino Transferase 18 U/L (5-37); Beta-Hydroxybutyrate 1.73 mmol/L (0.02-0.27); Bilirubin Total 0.5 mg/dL (0.0-1.0); Blood Urea Nitrogen 10 mg/dL (9-16); Carbon Dioxide 19 mmol/L (22-29); Chloride 107 mmol/L (96-108); Creatinine Clr Calc Pharmacy 115.1; Estimated Glomerular Filt Rate > 60; Glucose Random 276 mg/dL (60-115); Magnesium 2.3 mg/dL (1.6-2.6); Sodium 137 mmol/L (135-145)
[2023-11-03 17:43] VITALS: BP 183/93; PULSE 108; RESP 22; TEMP 35.9; O2SAT 98
[2023-11-03] MEDS: Ondansetron ODT 4 MG TAB.RAPDIS TRANSLINGU (17:47)
== END 2023-11-03 23:56 | disposition left against medical advice (07) ==
PROVIDERS: Physician Assistant Medical; Emergency Provider Emergency Medicine
DX: U07.1 COVID-19 (principal); R11.2 Nausea with vomiting, unspecified; R10.9 Unspecified abdominal pain; Z79.899 Other long term (current) drug therapy
CPT/HCPCS: 0241U; 36415; 80053; 82010; 83735; 85025; 99281; 99283; J2405

== ENCOUNTER 2024-10-13 15:42 | Inpatient (IN) | payer OTHER, SELFPAY ==
[2024-10-13] VITALS (9 sets, daily range): BP systolic 116–191; BP diastolic 68–96; PULSE 100–112; RESP 16–24; TEMP 36.9; O2SAT 95–99; BMI 36.6
--- NOTE | ~2024-10-13 | XR_ITS ---
EXAMINATION: XR CHEST CLINICAL INFORMATION: cough COMPARISON: X-ray 01/24/2022 TECHNIQUE: 2 frontal view of the chest was obtained. FINDINGS: Sternotomy wires. Overlying monitoring leads. Cervical spinal fusion hardware. Normal cardiac and mediastinal silhouette. Similar mild right hemidiaphragm elevation. No focal consolidation, effusion, pulmonary edema. No pneumothorax is seen. XR/XR chest 1V IMPRESSION: No confluent airspace disease. Electronically signed by: Justin Benavidez MD 10/13/2024 06:17 PM [facility]
--- NOTE | ~2024-10-13 | CT_ITS ---
EXAMINATION: CT ABDOMEN AND PELVIS WITH CONTRAST CLINICAL INFORMATION: Periumbilical pain, vomiting, chills COMPARISON: 04/29/23, 12/26/22 TECHNIQUE: Multidetector volumetric images were obtained from the superior aspect of the liver through the pubic symphysis following administration 85 mL of Omnipaque 350 intravenous contrast. Sagittal and coronal reformatted images were obtained on the technologist's workstation. Oral contrast: No This CT examination was performed using dose optimization techniques as appropriate, variously including the following: *Automated exposure control *Adjustment of mA and/or kV according to patient size (this includes techniques or standardized protocols for targeted exams where dose is matched to indication/reason for exam; i.e. extremities or head) *Use of iterative reconstruction technique DLP: 1701 mGy-cm FINDINGS: LUNG BASES: Unremarkable. ABDOMINAL AND PELVIC WALL: Anterior abdominal wall subcutaneous injection granulomas are again noted. LIVER AND BILIARY TREE: Hepatic steatosis. GALLBLADDER: Status post cholecystectomy. PANCREAS: Fatty atrophy of the pancreas. SPLEEN: Unremarkable. ADRENAL GLANDS: Unremarkable. KIDNEYS AND URETERS: Unremarkable. GASTROINTESTINAL TRACT: Unremarkable. Appendix is within normal limits. VASCULAR: Aortic atherosclerotic calcifications, no aneurysmal dialation. LYMPH NODES/PERITONEUM: No lymphadenopathy. FREE FLUID: None. BLADDER: Unremarkable. PELVIC VISCERA: Unremarkable. OSSEOUS STRUCTURES: Evaluation of the pelvis is limited secondary to streak artifact from bilateral hip arthroplasties. Posterior spinal fusion hardware. Degenerative changes of the spine. CT/CT abdomen pelvis w IV con IMPRESSION: * No acute intra-abdominal abnormality. * Hepatic steatosis. Electronically signed by: Shey Healy MD 10/13/2024 07:57 PM EST
--- NOTE | 2024-10-13 16:02 | ECG_ITS ---
Test Reason : CHEST PAIN Blood Pressure : / mmHG Vent. Rate : 108 BPM Atrial Rate : 108 BPM P-R Int : 192 ms QRS Dur : 090 ms QT Int : 340 ms P-R-T Axes : 054 000 077 degrees QTc Int : 455 ms Poor data quality, interpretation may be adversely affected Sinus tachycardia Nonspecific ST and T wave abnormality Abnormal ECG When compared with ECG of 30-APR-2023 15:04, Minimal criteria for Anteroseptal infarct are no longer Present Nonspecific T wave abnormality, improved in Anterolateral leads Referred By: Generic ED Physician Electronically Signed By:SID ORTIZ
[2024-10-13 16:04] LABS: Glucose, Whole Blood 281 mg/dL (60-115)
--- NOTE | 2024-10-13 16:24 | ED.NAVMDI ---
HPI - Nausea/Vomiting/Diarrhea General Chief complaint: Nausea/Vomiting/Diarrhea Stated complaint: NAUSEA AND VOMITING SINCE YESTERDAY Time Seen by Provider: 10/13/24 16:00 Source: patient, family, EMS and old records reviewed Mode of arrival: EMS Limitations: no limitations History of Present Illness ED Provider: BRAXTON HPI Narrative: 63 yo male with PMH of CAD s/p 4VCABG 2018, DM, PAF on xarelto, asthma, PAD hx of osteomyelitis and amputation of L great toe, HTN, he comes in today with c/o abrupt onset upper abdominal pain n/v/d at the same time. It started yesterday afternoon. was in [place] all day came home and saw him and states he didn't look well. He denies any recent travel, sick contacts, abx use, food exposures to me. He states he cannot take his medications or his pain medications. He denies chest pain to me states it is upper abdominal pain. No fevers but chills reported. No blood in stool reported. MD elicited complaint: nausea, vomiting, diarrhea and abdominal pain Pertinent past history: other Onset (ago): day(s) (1) Description of vomiting: watery Description of diarrhea: watery Associated nausea: Yes Associated abdominal pain: Yes Location of pain: epigastric Pain consistency: constant Severity: moderate Quality: aching and constant Exacerbating factors: eating Relieving factors: none Context: other Associated symptoms: fever/chills, loss of appetite, malaise, nausea/vomiting and weakness Related Data Home Medications ?Medication ?Instructions ?Recorded ?Confirmed ezetimibe 10 mg tablet 1 tab PO DAILY 01/03/22 05/27/23 gabapentin 300 mg capsule 1 cap PO TID 01/03/22 05/27/23 insulin glargine 100 unit/mL 50 unit subcut QPM 01/03/22 05/27/23 subcutaneous solution (Lantus U-100 Insulin) insulin lispro 100 unit/mL 40 unit subcut TIDAC 01/03/22 05/27/23 subcutaneous solution isosorbide mononitrate 30 mg 1 tab PO DAILY 01/03/22 05/27/23 tablet,extended release 24 hr loratadine 10 mg tablet 1 tab PO DAILY 01/03/22 05/27/23 losartan 25 mg tablet 1 tab PO DAILY 01/03/22 05/27/23 meclizine 25 mg tablet 1 tab PO TID 01/03/22 05/27/23 montelukast 10 mg tablet 1 tab PO BEDTIME 01/03/22 05/27/23 ondansetron HCl 4 mg tablet 1 tab PO TID PRN nausea 01/03/22 05/27/23 oxycodone 20 mg tablet,crush 1 tab PO BID PRN Severe Pain 01/03/22 05/27/23 resistant,extended release 12 hr (Scale Score 7-10) (OxyContin) pantoprazole 40 mg tablet,delayed 1 tab PO BID@0630,1630 01/03/22 05/27/23 release rosuvastatin 40 mg tablet 1 tab PO BEDTIME 01/03/22 05/27/23 thiamine HCl (vitamin B1) 100 mg 1 tab PO DAILY 01/03/22 05/27/23 tablet zolpidem 10 mg tablet 1 tab PO BEDTIME 01/03/22 05/27/23 rivaroxaban 20 mg tablet (Xarelto) 1 tab PO DAILY@1700 07/23/22 05/27/23 aspirin 81 mg tablet,delayed 1 tab PO DAILY 08/04/22 05/27/23 release tamsulosin 0.4 mg capsule 1 cap PO DAILY 08/04/22 05/27/23 baclofen 10 mg tablet 1 tab PO TID 11/13/22 05/27/23 furosemide 20 mg tablet 1 tab PO BID 11/13/22 05/27/23 venlafaxine 100 mg tablet 1 tab PO BID 11/13/22 05/27/23 valacyclovir 1 gram tablet 1,000 mg PO Q8H PRN Cold Sores 04/30/23 05/27/23 (Valtrex) Previous Rx's ?Medication ?Instructions ?Recorded walker #1 ea 01/11/22 walker #1 ea 01/15/22 Band-Aid Gauze Pads 4 X 4 #25 ea 04/16/22 bandage (gauze bandage) elastic bandage 6 X 1.8 yard #6 ea 04/16/22 off loading boot (Aircast off #1 ea 04/16/22 loading boot) calcium alginate ag #5 ea 04/23/22 sterile gauze #40 ea 04/23/22 oxycodone 5 mg tablet 10 mg (2 x 5 mg) PO Q4H #15 tabs 11/16/22 sulfamethoxazole 800 1 tab PO BID #10 tabs 05/15/23 mg-trimethoprim 160 mg tablet (Bactrim DS) Allergies Allergy/AdvReac Type Severity Reaction Status Date / Time morphine AdvReac Intermediate Hallucinati Verified 10/13/24 16:08 ons Review of Systems Review of Systems: Constitutional : No Fever, pos Chills ENT/Mouth : No sore throat, No Rhinorrhea Eyes: No Swelling, No Redness Cardiovascular : No Chest Pain, No SOB, NoEdema Respiratory : No Cough, No Sputum, No Wheezing Gastrointestinal : Positive Nausea, Positive Vomiting, positive Diarrhea, positive abdominal Pain, No Hematochezia, No Melena Genitourinary : No Dysuria, No Urinary Frequency, No Hematuria, No Urgency Musculoskeletal : No joint pain, No Myalgias, No Joint Swelling Skin : No Skin Lesions, No rash Neuro : pos Weakness, No Numbness, No Dizziness, No Headache Psych : No Anxiety/Panic, No Depression All other systems reviewed and are negative. Gastrointestinal: Gastrointestinal: Reports nausea PMFSH Past Medical History Attestation statement: The following information was validated with the patient. Source: old records reviewed Medical History PAD (peripheral artery disease) Afib Amputation of left great toe Lower limb amputation, great toe CAD (coronary artery disease) DMII (diabetes mellitus, type 2) Orthopedic hardware present Hyperglycemia Cellulitis Asthma Diabetes Hypertension FHx: bilateral hip replacements Surgical History History of amputation of toe (07/29/22) History of amputation of great toe (01/07/22) History of back surgery History of neck surgery History of ankle surgery H/O bilateral hip replacements S/P quadruple vessel bypass Family History Family History Other No family history of coronary artery disease Social History Social History Household Members: Spouse Household Members Other:: 3 Housing: Apartment Are you a primary healthcare or medical to a significant other at home: No Do you presently have visiting nurse or other home services: No Alcohol intake: never Comment: refused bed or chair alarm Patient Tobacco Use Status: Former Tobacco user Tobacco use type: Cigarette Smoked in Last 30 Days: No Second Hand Smoke Exposure: No Use of substances other than those prescribed or required for medical reasons: No Advance Directives: No Advance Directives Information Provided: No Advance Directives Date on File: 01/04/22 service: No Current occupational status: disabled Physical Exam Vital Signs: Vital Signs: Last Vital Signs Temp 98.5 F 10/13/24 22:55 Pulse 106 H 10/13/24 22:55 Resp 19 10/13/24 22:55 BP 156/74 H 10/13/24 22:55 Pulse Ox 99 10/13/24 22:55 O2 Del Method Room Air 10/13/24 22:55 BMI result Body Mass Index 36.6 Appearance: Alert. Oriented X3. mild acute distress. Eyes: Pupils equal, round and reactive to light. ENT: Pharynx very dry MM Neck: Normal inspection. Neck supple. CVS: tachcyardic heart rate and rhythm. Pulses normal. Respiratory: No respiratory distress. Breath sounds normal. Abdomen: Soft and moderate ttp in epigastric no rebound Skin: Skin warm and dry. pale skin color. Normal skin turgor. Extremities: No lower extremity edema. Neuro: Oriented X 3. No motor deficit. No sensory deficit. Course Course Course Narrative: given lactic acidosis possible infection suspected 502pm IV ceftriaxone ordered Reevaluation(s) Reevaluation #1: ? euglycemic DKA - gap did close and ph is improved will start on insulin gtt and dextrose drip along with additional fluids will repeat BMP Reevaluation #2: did well with insulin gtt and D5 NS and D5 1/2NS - taken off and admitted Medications Administered Discontinued Medications Generic Name Dose Route Start Last Admin Trade Name Freq PRN Reason Stop Dose Admin Ceftriaxone Sodium 1 gm 10/13/24 17:01 10/13/24 17:24 Ceftriaxone Sodium 1 Gm Vial IVPUSH 10/13/24 17:02 1 gm ONCE ONE Administration Hydromorphone HCl 1 mg 10/13/24 16:08 10/13/24 16:36 Hydromorphone Hcl 1 Mg/Ml Syringe IVPUSH 10/13/24 16:09 1 mg ONCE ONE Administration Protocol Hydromorphone HCl 1 mg 10/13/24 18:44 10/13/24 19:04 Hydromorphone Hcl 1 Mg/Ml Syringe IVPUSH 10/13/24 18:45 1 mg ONCE ONE Administration Protocol Hydromorphone HCl 1 mg 10/13/24 22:51 10/13/24 23:04 Hydromorphone Hcl 1 Mg/Ml Syringe IVPUSH 10/13/24 22:52 1 mg ONCE ONE Administration Protocol Sodium Chloride 1,000 mls @ 999 mls/hr 10/13/24 16:08 10/13/24 18:38 Ns IV 10/13/24 17:08 Infused .Q1H1M ONE Infusion Sodium Chloride 1,000 mls @ 999 mls/hr 10/13/24 17:08 10/13/24 18:38 Ns IV 10/13/24 18:08 Infused .Q1H1M ONE Infusion Lactated Ringer's 500 mls @ 999 mls/hr 10/13/24 20:02 10/13/24 21:17 Lr IV 10/13/24 20:32 Infused .Q31M ONE Infusion Insulin Human Regular 100 unit in 100 mls @ 8 mls/hr 10/13/24 20:15 10/14/24 00:04 Myxredlin IVCONT Infused .[id number] WILLIAM Titration Protocol 8 UNIT/HR Dextrose/Sodium Chloride 1,000 mls @ 100 mls/hr 10/13/24 20:15 10/13/24 22:55 D5ns IVCONT Infused .Q10H WILLIAM Infusion Lactated Ringer's 500 mls @ 999 mls/hr 10/13/24 20:05 10/13/24 22:02 Lr IV 10/13/24 20:35 Infused .Q31M ONE Infusion Dextrose/Sodium Chloride 1,000 mls @ 150 mls/hr 10/13/24 23:00 10/14/24 00:06 D51/2ns IVCONT Infused .Q6H40M WILLIAM Infusion Insulin Human Regular 5 unit 10/13/24 18:27 10/13/24 18:39 Insulin Regular, Human 100 Unit/Ml 10 Ml Vial IVPUSH 10/13/24 18:28 5 unit ONCE ONE Administration Iohexol 100 ml 10/13/24 17:22 10/13/24 17:22 Iohexol 350 Mg/Ml 100 Ml Infus..Btl IV 10/13/24 17:23 85 ml ONCE ONE Administration Ondansetron HCl 4 mg 10/13/24 16:08 10/13/24 16:36 Ondansetron Hcl 4 Mg/2 Ml Vial IVPUSH 10/13/24 16:09 4 mg ONCE ONE Administration Ondansetron HCl 4 mg 10/13/24 18:44 10/13/24 19:04 Ondansetron Hcl 4 Mg/2 Ml Vial IVPUSH 10/13/24 18:45 4 mg ONCE ONE Administration Medical Decision Making Medical Decision Making MDM Narrative: 63 yo male with PMH of CAD s/p 4VCABG 2017, DM, PAF on xarelto, asthma, PAD hx of osteomyelitis and amputation of L great toe, HTN here with abrupt onset upper abdominal pain n/v/d chills - no risk factors has had prior appendectomy. At this time will obtain labs, start on IVF, CT scan for acute pathology such as SBO or biliary. IV dilaudid for pain. Possible viral, biliary pathology, pancreatitis, JOSE, gastroenteritis. He is compliant with xarelto doubt ischemic bowels Differential Diagnosis Differential Diagnoses: The differential diagnosis associated with the presentation includes viral, biliary pathology, pancreatitis, JOSE, gastroenteritis Admission/Observation Consideration of admission/observation: Escalation of care including admission/observation considered admit for further workup corrected after drip off repeat nausea and pain medications Consult Healthcare Provider Management of the patient was discussed with: Hospitalist (will admit) Lab Data [facility] Lab Attestation statement: I reviewed the patient's lab results. 10/13/24 16:33 10/13/24 23:42 Labs: Lab Results 10/13/24 10/13/24 10/13/24 Range/Units 15:59 16:33 17:33 WBC 13.7 H (4.8-10.8) X10*3/uL RBC 5.28 (4.60-5.80) X10*6/uL Hgb 15.5 (14.0-18.0) g/dl Hct 44.8 (42.0-52.0) % MCV 84.8 (80.0-98.0) fL MCH 29.4 (27.0-33.0) pg MCHC 34.6 (31.0-36.0) g/dl RDW 14.1 (11.0-16.0) % Plt Count 366 D (160-400) X10*3/uL MPV 9.8 (9.4-12.4) fL Immature Gran % (Auto) 0.5 H (0.0-0.4) % Neut % (Auto) 86.6 H (45-73) % Lymph % (Auto) 10.0 L (20-40) % [place] % (Auto) 2.6 (2-11) % Eos % (Auto) 0.0 (0-4) % Baso % (Auto) 0.3 (0-2) % Lymph # (Auto) 1.4 (1.2-4.9) X10*3/uL [place] # (Auto) 0.4 (0.1-1.2) X10*3/uL Eos # (Auto) 0.0 (0.0-0.4) X10*3/uL Baso # (Auto) 0.0 (0.0-0.2) X10*3/uL Abs Immat Gran (auto) 0.07 H (0.00-0.03) X10*3/uL Absolute Neuts (auto) 11.9 H (2.0-8.3) x10*3/uL Absolute Nucleated RBC 0.000 (0.0-0.012) X10*3/uL Nucleated RBC % (auto) 0.0 (0.0-0.2) /100WBC VBG pH (7.32-7.43) VBG pCO2 mmHg VBG pO2 mmHg VBG HCO3 (22-26) mmol/L VBG O2 Saturation % VBG Base Excess mmol/L Sodium 142 (135-145) mmol/L Potassium 4.0 (3.3-5.1) mmol/L Chloride 105 (96-108) mmol/L Carbon Dioxide 15 L (22-29) mmol/L Anion Gap 26 H (12-20) BUN 13 (9-16) mg/dL Creatinine 1.08 (0.5-1.4) mg/dL Estim Creat Clear Calc 83.8 Estimated GFR > 60 POC Glucose 281 H (60-115) mg/dL Random Glucose 295 H (60-115) mg/dL Lactic Acid 3.8 H* (0.5-2.0) mmol/L Lactic Acid F/U @ 2Hr (0.5-2.0) mmol/L Lactic Acid F/U @ 4Hr (0.5-2.0) mmol/L Calcium 10.1 D (8.4-10.2) mg/dL Magnesium 2.4 (1.6-2.6) mg/dL Total Bilirubin 0.6 (0.0-1.0) mg/dL Direct Bilirubin 0.2 (0.0-0.5) mg/dL AST 23 (5-37) U/L ALT 18 (0-40) U/L Alkaline Phosphatase 81 (39-117) U/L Troponin I High Sens 37.5 H (<3.5-35.0) ng/L Total Protein 7.8 (6.5-8.0) g/dL Albumin 4.5 (3.5-5.0) g/dL Lipase 5 L (8-78) U/L Beta-Hydroxybutyrate 4.63 H (0.02-0.27) mmol/L Urine Color Urine Appearance Urine pH (5.0-9.0) Ur Specific [place] (1.005-1.025) Urine Protein (Neg-Trace) mg/dL Urine Glucose (UA) (Negative) mg/dL Urine Ketones (Negative) mg/dL Urine Blood (Negative) Urine Nitrite (Negative) Ur Leukocyte Esterase (Negative) Urine RBC (0-2) /HPF Urine WBC (0-5) /HPF Ur Squamous Epith Cells (0-2) /HPF Urine Bacteria (None Seen) Hyaline Casts (0-2) /LPF Influenza Type A (PCR) NEGATIVE (Negative) Influenza Type B (PCR) NEGATIVE (Negative) RSV RNA Qual (PCR) NEGATIVE (Negative) SARS-CoV-2 RNA (RT-PCR) NEGATIVE (Negative) 10/13/24 10/13/24 10/13/24 Range/Units 17:36 18:37 18:54 WBC (4.8-10.8) X10*3/uL RBC (4.60-5.80) X10*6/uL Hgb (14.0-18.0) g/dl Hct (42.0-52.0) % MCV (80.0-98.0) fL MCH (27.0-33.0) pg MCHC (31.0-36.0) g/dl RDW (11.0-16.0) % Plt Count (160-400) X10*3/uL MPV (9.4-12.4) fL Immature Gran % (Auto) (0.0-0.4) % Neut % (Auto) (45-73) % Lymph % (Auto) (20-40) % [place] % (Auto) (2-11) % Eos % (Auto) (0-4) % Baso % (Auto) (0-2) % Lymph # (Auto) (1.2-4.9) X10*3/uL [place] # (Auto) (0.1-1.2) X10*3/uL Eos # (Auto) (0.0-0.4) X10*3/uL Baso # (Auto) (0.0-0.2) X10*3/uL Abs Immat Gran (auto) (0.00-0.03) X10*3/uL Absolute Neuts (auto) (2.0-8.3) x10*3/uL Absolute Nucleated RBC (0.0-0.012) X10*3/uL Nucleated RBC % (auto) (0.0-0.2) /100WBC VBG pH 7.25 L (7.32-7.43) VBG pCO2 37 mmHg VBG pO2 55 mmHg VBG HCO3 16 L (22-26) mmol/L VBG O2 Saturation 78.0 % VBG Base Excess -9.9 mmol/L Sodium (135-145) mmol/L Potassium (3.3-5.1) mmol/L Chloride (96-108) mmol/L Carbon Dioxide (22-29) mmol/L Anion Gap (12-20) BUN (9-16) mg/dL Creatinine (0.5-1.4) mg/dL Estim Creat Clear Calc Estimated GFR POC Glucose 257 H (60-115) mg/dL Random Glucose (60-115) mg/dL Lactic Acid (0.5-2.0) mmol/L Lactic Acid F/U @ 2Hr 2.4 H* (0.5-2.0) mmol/L Lactic Acid F/U @ 4Hr (0.5-2.0) mmol/L Calcium (8.4-10.2) mg/dL Magnesium (1.6-2.6) mg/dL Total Bilirubin (0.0-1.0) mg/dL Direct Bilirubin (0.0-0.5) mg/dL AST (5-37) U/L ALT (0-40) U/L Alkaline Phosphatase (39-117) U/L Troponin I High Sens (<3.5-35.0) ng/L Total Protein (6.5-8.0) g/dL Albumin (3.5-5.0) g/dL Lipase (8-78) U/L Beta-Hydroxybutyrate (0.02-0.27) mmol/L Urine Color Yellow Urine Appearance Clear Urine pH 5.5 (5.0-9.0) Ur Specific [place] >= 1.030 H (1.005-1.025) Urine Protein 100 (2+) H (Neg-Trace) mg/dL Urine Glucose (UA) >=1000 H (Negative) mg/dL Urine Ketones >=160 (Negative) mg/dL Urine Blood Trace H (Negative) Urine Nitrite Negative (Negative) Ur Leukocyte Esterase Negative (Negative) Urine RBC 0-2 (0-2) /HPF Urine WBC 0-5 (0-5) /HPF Ur Squamous Epith Cells 0-2 (0-2) /HPF Urine Bacteria None Seen (None Seen) Hyaline Casts 0-2 (0-2) /LPF Influenza Type A (PCR) (Negative) Influenza Type B (PCR) (Negative) RSV RNA Qual (PCR) (Negative) SARS-CoV-2 RNA (RT-PCR) (Negative) 10/13/24 10/13/24 10/13/24 Range/Units 19:24 19:32 19:34 WBC (4.8-10.8) X10*3/uL RBC (4.60-5.80) X10*6/uL Hgb (14.0-18.0) g/dl Hct (42.0-52.0) % MCV (80.0-98.0) fL MCH (27.0-33.0) pg MCHC (31.0-36.0) g/dl RDW (11.0-16.0) % Plt Count (160-400) X10*3/uL MPV (9.4-12.4) fL Immature Gran % (Auto) (0.0-0.4) % Neut % (Auto) (45-73) % Lymph % (Auto) (20-40) % [place] % (Auto) (2-11) % Eos % (Auto) (0-4) % Baso % (Auto) (0-2) % Lymph # (Auto) (1.2-4.9) X10*3/uL [place] # (Auto) (0.1-1.2) X10*3/uL Eos # (Auto) (0.0-0.4) X10*3/uL Baso # (Auto) (0.0-0.2) X10*3/uL Abs Immat Gran (auto) (0.00-0.03) X10*3/uL Absolute Neuts (auto) (2.0-8.3) x10*3/uL Absolute Nucleated RBC (0.0-0.012) X10*3/uL Nucleated RBC % (auto) (0.0-0.2) /100WBC VBG pH 7.36 (7.32-7.43) VBG pCO2 24 mmHg VBG pO2 93 mmHg VBG HCO3 14 L (22-26) mmol/L VBG O2 Saturation 97.0 % VBG Base Excess -9.1 mmol/L Sodium 144 (135-145) mmol/L Potassium 3.7 (3.3-5.1) mmol/L Chloride 113 H (96-108) mmol/L Carbon Dioxide 14 L (22-29) mmol/L Anion Gap 21 H (12-20) BUN 14 (9-16) mg/dL Creatinine 0.86 (0.5-1.4) mg/dL Estim Creat Clear Calc 105.3 Estimated GFR > 60 POC Glucose 210 H (60-115) mg/dL Random Glucose 220 H (60-115) mg/dL Lactic Acid (0.5-2.0) mmol/L Lactic Acid F/U @ 2Hr (0.5-2.0) mmol/L Lactic Acid F/U @ 4Hr (0.5-2.0) mmol/L Calcium 8.8 D (8.4-10.2) mg/dL Magnesium (1.6-2.6) mg/dL Total Bilirubin (0.0-1.0) mg/dL Direct Bilirubin (0.0-0.5) mg/dL AST (5-37) U/L ALT (0-40) U/L Alkaline Phosphatase (39-117) U/L Troponin I High Sens (<3.5-35.0) ng/L Total Protein (6.5-8.0) g/dL Albumin (3.5-5.0) g/dL Lipase (8-78) U/L Beta-Hydroxybutyrate (0.02-0.27) mmol/L Urine Color Urine Appearance Urine pH (5.0-9.0) Ur Specific [place] (1.005-1.025) Urine Protein (Neg-Trace) mg/dL Urine Glucose (UA) (Negative) mg/dL Urine Ketones (Negative) mg/dL Urine Blood (Negative) Urine Nitrite (Negative) Ur Leukocyte Esterase (Negative) Urine RBC (0-2) /HPF Urine WBC (0-5) /HPF Ur Squamous Epith Cells (0-2) /HPF Urine Bacteria (None Seen) Hyaline Casts (0-2) /LPF Influenza Type A (PCR) (Negative) Influenza Type B (PCR) (Negative) RSV RNA Qual (PCR) (Negative) SARS-CoV-2 RNA (RT-PCR) (Negative) 10/13/24 10/13/24 10/13/24 Range/Units 20:53 21:30 21:41 WBC (4.8-10.8) X10*3/uL RBC (4.60-5.80) X10*6/uL Hgb (14.0-18.0) g/dl Hct (42.0-52.0) % MCV (80.0-98.0) fL MCH (27.0-33.0) pg MCHC (31.0-36.0) g/dl RDW (11.0-16.0) % Plt Count (160-400) X10*3/uL MPV (9.4-12.4) fL Immature Gran % (Auto) (0.0-0.4) % Neut % (Auto) (45-73) % Lymph % (Auto) (20-40) % [place] % (Auto) (2-11) % Eos % (Auto) (0-4) % Baso % (Auto) (0-2) % Lymph # (Auto) (1.2-4.9) X10*3/uL [place] # (Auto) (0.1-1.2) X10*3/uL Eos # (Auto) (0.0-0.4) X10*3/uL Baso # (Auto) (0.0-0.2) X10*3/uL Abs Immat Gran (auto) (0.00-0.03) X10*3/uL Absolute Neuts (auto) (2.0-8.3) x10*3/uL Absolute Nucleated RBC (0.0-0.012) X10*3/uL Nucleated RBC % (auto) (0.0-0.2) /100WBC VBG pH (7.32-7.43) VBG pCO2 mmHg VBG pO2 mmHg VBG HCO3 (22-26) mmol/L VBG O2 Saturation % VBG Base Excess mmol/L Sodium (135-145) mmol/L Potassium (3.3-5.1) mmol/L Chloride (96-108) mmol/L Carbon Dioxide (22-29) mmol/L Anion Gap (12-20) BUN (9-16) mg/dL Creatinine (0.5-1.4) mg/dL Estim Creat Clear Calc Estimated GFR POC Glucose 190 H 223 H (60-115) mg/dL Random Glucose (60-115) mg/dL Lactic Acid (0.5-2.0) mmol/L Lactic Acid F/U @ 2Hr (0.5-2.0) mmol/L Lactic Acid F/U @ 4Hr 1.7 (0.5-2.0) mmol/L Calcium (8.4-10.2) mg/dL Magnesium (1.6-2.6) mg/dL Total Bilirubin (0.0-1.0) mg/dL Direct Bilirubin (0.0-0.5) mg/dL AST (5-37) U/L ALT (0-40) U/L Alkaline Phosphatase (39-117) U/L Troponin I High Sens (<3.5-35.0) ng/L Total Protein (6.5-8.0) g/dL Albumin (3.5-5.0) g/dL Lipase (8-78) U/L Beta-Hydroxybutyrate (0.02-0.27) mmol/L Urine Color Urine Appearance Urine pH (5.0-9.0) Ur Specific [place] (1.005-1.025) Urine Protein (Neg-Trace) mg/dL Urine Glucose (UA) (Negative) mg/dL Urine Ketones (Negative) mg/dL Urine Blood (Negative) Urine Nitrite (Negative) Ur Leukocyte Esterase (Negative) Urine RBC (0-2) /HPF Urine WBC (0-5) /HPF Ur Squamous Epith Cells (0-2) /HPF Urine Bacteria (None Seen) Hyaline Casts (0-2) /LPF Influenza Type A (PCR) (Negative) Influenza Type B (PCR) (Negative) RSV RNA Qual (PCR) (Negative) SARS-CoV-2 RNA (RT-PCR) (Negative) 10/13/24 10/13/24 10/13/24 Range/Units 22:00 22:44 23:41 WBC (4.8-10.8) X10*3/uL RBC (4.60-5.80) X10*6/uL Hgb (14.0-18.0) g/dl Hct (42.0-52.0) % MCV (80.0-98.0) fL MCH (27.0-33.0) pg MCHC (31.0-36.0) g/dl RDW (11.0-16.0) % Plt Count (160-400) X10*3/uL MPV (9.4-12.4) fL Immature Gran % (Auto) (0.0-0.4) % Neut % (Auto) (45-73) % Lymph % (Auto) (20-40) % [place] % (Auto) (2-11) % Eos % (Auto) (0-4) % Baso % (Auto) (0-2) % Lymph # (Auto) (1.2-4.9) X10*3/uL [place] # (Auto) (0.1-1.2) X10*3/uL Eos # (Auto) (0.0-0.4) X10*3/uL Baso # (Auto) (0.0-0.2) X10*3/uL Abs Immat Gran (auto) (0.00-0.03) X10*3/uL Absolute Neuts (auto) (2.0-8.3) x10*3/uL Absolute Nucleated RBC (0.0-0.012) X10*3/uL Nucleated RBC % (auto) (0.0-0.2) /100WBC VBG pH (7.32-7.43) VBG pCO2 mmHg VBG pO2 mmHg VBG HCO3 (22-26) mmol/L VBG O2 Saturation % VBG Base Excess mmol/L Sodium (135-145) mmol/L Potassium (3.3-5.1) mmol/L Chloride (96-108) mmol/L Carbon Dioxide (22-29) mmol/L Anion Gap (12-20) BUN (9-16) mg/dL Creatinine (0.5-1.4) mg/dL Estim Creat Clear Calc Estimated GFR POC Glucose 171 H 147 H 147 H (60-115) mg/dL Random Glucose (60-115) mg/dL Lactic Acid (0.5-2.0) mmol/L Lactic Acid F/U @ 2Hr (0.5-2.0) mmol/L Lactic Acid F/U @ 4Hr (0.5-2.0) mmol/L Calcium (8.4-10.2) mg/dL Magnesium (1.6-2.6) mg/dL Total Bilirubin (0.0-1.0) mg/dL Direct Bilirubin (0.0-0.5) mg/dL AST (5-37) U/L ALT (0-40) U/L Alkaline Phosphatase (39-117) U/L Troponin I High Sens (<3.5-35.0) ng/L Total Protein (6.5-8.0) g/dL Albumin (3.5-5.0) g/dL Lipase (8-78) U/L Beta-Hydroxybutyrate (0.02-0.27) mmol/L Urine Color Urine Appearance Urine pH (5.0-9.0) Ur Specific [place] (1.005-1.025) Urine Protein (Neg-Trace) mg/dL Urine Glucose (UA) (Negative) mg/dL Urine Ketones (Negative) mg/dL Urine Blood (Negative) Urine Nitrite (Negative) Ur Leukocyte Esterase (Negative) Urine RBC (0-2) /HPF Urine WBC (0-5) /HPF Ur Squamous Epith Cells (0-2) /HPF Urine Bacteria (None Seen) Hyaline Casts (0-2) /LPF Influenza Type A (PCR) (Negative) Influenza Type B (PCR) (Negative) RSV RNA Qual (PCR) (Negative) SARS-CoV-2 RNA (RT-PCR) (Negative) 10/13/24 Range/Units 23:42 WBC (4.8-10.8) X10*3/uL RBC (4.60-5.80) X10*6/uL Hgb (14.0-18.0) g/dl Hct (42.0-52.0) % MCV (80.0-98.0) fL MCH (27.0-33.0) pg MCHC (31.0-36.0) g/dl RDW (11.0-16.0) % Plt Count (160-400) X10*3/uL MPV (9.4-12.4) fL Immature Gran % (Auto) (0.0-0.4) % Neut % (Auto) (45-73) % Lymph % (Auto) (20-40) % [place] % (Auto) (2-11) % Eos % (Auto) (0-4) % Baso % (Auto) (0-2) % Lymph # (Auto) (1.2-4.9) X10*3/uL [place] # (Auto) (0.1-1.2) X10*3/uL Eos # (Auto) (0.0-0.4) X10*3/uL Baso # (Auto) (0.0-0.2) X10*3/uL Abs Immat Gran (auto) (0.00-0.03) X10*3/uL Absolute Neuts (auto) (2.0-8.3) x10*3/uL Absolute Nucleated RBC (0.0-0.012) X10*3/uL Nucleated RBC % (auto) (0.0-0.2) /100WBC VBG pH (7.32-7.43) VBG pCO2 mmHg VBG pO2 mmHg VBG HCO3 (22-26) mmol/L VBG O2 Saturation % VBG Base Excess mmol/L Sodium 145 (135-145) mmol/L Potassium 3.4 (3.3-5.1) mmol/L Chloride 115 H (96-108) mmol/L Carbon Dioxide 20 L (22-29) mmol/L Anion Gap 13 (12-20) BUN 14 (9-16) mg/dL Creatinine 0.81 (0.5-1.4) mg/dL Estim Creat Clear Calc 111.8 Estimated GFR > 60 POC Glucose (60-115) mg/dL Random Glucose 147 H (60-115) mg/dL Lactic Acid (0.5-2.0) mmol/L Lactic Acid F/U @ 2Hr (0.5-2.0) mmol/L Lactic Acid F/U @ 4Hr (0.5-2.0) mmol/L Calcium 8.5 (8.4-10.2) mg/dL Magnesium (1.6-2.6) mg/dL Total Bilirubin (0.0-1.0) mg/dL Direct Bilirubin (0.0-0.5) mg/dL AST (5-37) U/L ALT (0-40) U/L Alkaline Phosphatase (39-117) U/L Troponin I High Sens (<3.5-35.0) ng/L Total Protein (6.5-8.0) g/dL Albumin (3.5-5.0) g/dL Lipase (8-78) U/L Beta-Hydroxybutyrate (0.02-0.27) mmol/L Urine Color Urine Appearance Urine pH (5.0-9.0) Ur Specific [place] (1.005-1.025) Urine Protein (Neg-Trace) mg/dL Urine Glucose (UA) (Negative) mg/dL Urine Ketones (Negative) mg/dL Urine Blood (Negative) Urine Nitrite (Negative) Ur Leukocyte Esterase (Negative) Urine RBC (0-2) /HPF Urine WBC (0-5) /HPF Ur Squamous Epith Cells (0-2) /HPF Urine Bacteria (None Seen) Hyaline Casts (0-2) /LPF Influenza Type A (PCR) (Negative) Influenza Type B (PCR) (Negative) RSV RNA Qual (PCR) (Negative) SARS-CoV-2 RNA (RT-PCR) (Negative) Independent Interpretation I performed an independent interpretation of an: EKG, Plain X-Ray (no pneumonia) and CT Scan (no acute findings) Interpretation: Rate: 108 Rhythm: sinus tach [place]: left Normal P waves. Normal [place]. Normal QRS complex. ST T wave : nonspecific ST T wave changed lateral leads in V4-V6 no [place] qTC: 455 prior studies: suspect tachycardia worsening chronic lateral changed The study has been interpreted contemporaneously by me. . Radiology Impression Discussion of test interpretation with radiology: I have reviewed the radiologist's reading. Independent Historian Clinical information obtained from an independent historian. History obtained from or confirmed by: Spouse and EMS External Record Review External record reviewed: Inpatient record and Outpatient record Critical Care Time Critical Care Time Critical Care Time: Yes Total Critical Care Time: 60 Attestation: repeat labs, IV bolus, insulin gtt with correction, repeat IV dilaudid with improvement in pain, review of records I attest to this time spent taking care of the patient Discharge Plan Discharge Clinical Impression: Intractable nausea and vomiting, Abdominal pain, acute, epigastric DKA (diabetic ketoacidosis) Qualifiers: Diabetes mellitus type: other specified (including JEREMY) Diabetes mellitus complication detail: without coma Qualified Code(s): E13.10 - Other specified diabetes mellitus with ketoacidosis without coma Patient Disposition: Admitted As Inpatient
[2024-10-13] MEDS: 0.9 % Sodium Chloride 1,000 ML 999 ML IV ×2 (16:36→17:24)
[2024-10-13] MEDS: HYDROmorphone HCl 1 MG/ML SYRINGE IVPUSH ×3 (16:36→23:04)
[2024-10-13] MEDS: ondansetron HCL 4 MG/2 ML VIAL IVPUSH ×2 (16:36→19:04)
[2024-10-13 16:39] LABS: MANUAL DIFF FLAG NO
[2024-10-13 16:44] LABS: Basophils Percent Auto 0.3 % (0-2); Hematocrit 44.8 % (42.0-52.0); Hemoglobin 15.5 g/dl (14.0-18.0); Imm Gran Abs Auto 0.07 X10*3/uL (0.00-0.03); Imm Gran Pct Auto 0.5 % (0.0-0.4); Lymphocytes Absolute Auto 1.4 X10*3/uL (1.2-4.9); Mean Corpuscular HGB Conc 34.6 g/dl (31.0-36.0); Mean Corpuscular Hemoglobin 29.4 pg (27.0-33.0); Mean Corpuscular Volume 84.8 fL (80.0-98.0); Mean Platelet Volume 9.8 fL (9.4-12.4); Monocytes Absolute Auto 0.4 X10*3/uL (0.1-1.2); Monocytes Percent Auto 2.6 % (2-11); Neutrophils Absolute Auto 11.9 x10*3/uL (2.0-8.3); Neutrophils Percent Auto 86.6 % (45-73); Platelet Count 366 X10*3/uL (160-400); Red Blood Count 5.28 X10*6/uL (4.60-5.80); Red Cell Distribution Width 14.1 % (11.0-16.0); White Blood Count 13.7 X10*3/uL (4.8-10.8)
[2024-10-13 17:02] LABS: Lactic Acid 3.8 mmol/L (0.5-2.0)
[2024-10-13 17:03] LABS: Troponin-I High Sensitivity 37.5 ng/L (<3.5-35.0)
[2024-10-13 17:05] LABS: Albumin Level 4.5 g/dL (3.5-5.0); Anion Gap 26 (12-20); Aspartate Amino Transferase 23 U/L (5-37); Bilirubin Direct 0.2 mg/dL (0.0-0.5); Bilirubin Total 0.6 mg/dL (0.0-1.0); Blood Urea Nitrogen 13 mg/dL (9-16); Calcium 10.1 mg/dL (8.4-10.2); Carbon Dioxide 15 mmol/L (22-29); Chloride 105 mmol/L (96-108); Creatinine Clr Calc Pharmacy 83.8; Estimated Glomerular Filt Rate > 60; Glucose Random 295 mg/dL (60-115); Lipase 5 U/L (8-78); Magnesium 2.4 mg/dL (1.6-2.6); Sodium 142 mmol/L (135-145); Total Protein 7.8 g/dL (6.5-8.0)
[2024-10-13 17:18] LABS: Influenza A PCR NEGATIVE (Negative); Influenza B PCR NEGATIVE (Negative); Resp Syncy Virus RNA Qual PCR NEGATIVE (Negative); SARS COV2 PCR INHOUSE NEGATIVE (Negative)
[2024-10-13] MEDS: iohexoL 350 MG/ML 100 ML INFUS..BTL IV (17:22)
[2024-10-13] MEDS: cefTRIAXone sodium 1 GM VIAL IVPUSH (17:24)
[2024-10-13 17:27] LABS: Alanine Aminotransferase 18 U/L (0-40); Alkaline Phosphatase 81 U/L (39-117)
[2024-10-13 17:40] LABS: VBG Base Excess -9.9 mmol/L; VBG HCO3 16 mmol/L (22-26); VBG pCO2 37 mmHg; VBG pH 7.25 (7.32-7.43); VBG pO2 55 mmHg
[2024-10-13 17:42] LABS: Venous Blood Gas Refer to POC result
[2024-10-13 18:26] LABS: Beta-Hydroxybutyrate 4.63 mmol/L (0.02-0.27)
[2024-10-13 18:38] LABS: Reflex Lactate? Lactic Acid Added
[2024-10-13] MEDS: Insulin Regular, Human 100 UNIT/ML 10 ML VIAL IVPUSH (18:39)
[2024-10-13 18:44] LABS: Glucose, Whole Blood 257 mg/dL (60-115)
[2024-10-13 19:02] LABS: Appearance Urine Clear; Color Urine Yellow; Glucose Urine UA >=1000 mg/dL (Negative); Leukocyte Esterase Urine Negative (Negative); Nitrite Urine Negative (Negative); PH 5.5 (5.0-9.0); Specific Gravity - Urine >= 1.030 (1.005-1.025); UMIC TRIGGER UACC YES; Urine Blood Trace (Negative); Urine Ketones >=160 mg/dL (Negative); Urine Protein 100 (2+) mg/dL (Neg-Trace)
[2024-10-13 19:05] LABS: Bacteria Urine None Seen (None Seen); Hyaline Casts Urine 0-2 /LPF (0-2); RBC Urine 0-2 /HPF (0-2); Squamous Epithelial Cell Urine 0-2 /HPF (0-2); WBC Urine 0-5 /HPF (0-5)
[2024-10-13 19:21] LABS: ~Lactic Acid-LAB USE ONLY 2.4 mmol/L (0.5-2.0)
[2024-10-13 19:36] LABS: Glucose, Whole Blood 210 mg/dL (60-115)
[2024-10-13 19:40] LABS: VBG Base Excess -9.1 mmol/L; VBG HCO3 14 mmol/L (22-26); VBG pCO2 24 mmHg; VBG pH 7.36 (7.32-7.43); VBG pO2 93 mmHg
[2024-10-13 19:44] LABS: Venous Blood Gas Refer to POC result
[2024-10-13 19:59] LABS: Anion Gap 21 (12-20); Blood Urea Nitrogen 14 mg/dL (9-16); Calcium 8.8 mg/dL (8.4-10.2); Carbon Dioxide 14 mmol/L (22-29); Chloride 113 mmol/L (96-108); Creatinine Clr Calc Pharmacy 105.3; Estimated Glomerular Filt Rate > 60; Glucose Random 220 mg/dL (60-115); Potassium 3.7 mmol/L (3.3-5.1); Sodium 144 mmol/L (135-145)
[2024-10-13] MEDS: Insulin Regular/NS 100 UNIT/100 ML PLAST..BAG 8 UNIT IVCONT (20:43)
[2024-10-13] MEDS: Lactated Ringers 500 ML 999 ML IV ×2 (20:45→21:16)
[2024-10-13] MEDS: Dextrose 5 % and 0.9 % NaCl 1,000 ML 100 ML IVCONT (20:45)
[2024-10-13 20:57] LABS: Glucose, Whole Blood 190 mg/dL (60-115)
[2024-10-13 20:57] LABS: Reflex Lactate? 2 Y
[2024-10-13 21:33] LABS: Glucose, Whole Blood 223 mg/dL (60-115)
--- NOTE | 2024-10-13 21:33 | PC.NURSE ---
repeat poc after 30 mins is 223. Per DO Barnes increase insulin drip to 9units/hr and recheck poc in 30 mins.
[2024-10-13 22:04] LABS: Glucose, Whole Blood 171 mg/dL (60-115)
--- NOTE | 2024-10-13 22:06 | PC.NURSE ---
per protocol poc drop of 52, from 223 to 171 - continue same infusion rate
[2024-10-13 22:49] LABS: Glucose, Whole Blood 147 mg/dL (60-115)
--- NOTE | 2024-10-13 22:51 | PC.NURSE ---
repeat poc now 146, per protocol decrease infusion rate by 2u/hr - decreased to 7units/hr. iv fluids switched from D5 0.9%nacl to D5 0.45%nacl per protocol DO antione switching fluid orders
[2024-10-13] MEDS: Dextrose 5 % and 0.45 % NaCl 1,000 ML 150 ML IVCONT (22:55)
[2024-10-13 23:06] LABS: ~Lactic Acid-LAB USE ONLY 1.7 mmol/L (0.5-2.0)
[2024-10-13 23:46] LABS: Glucose, Whole Blood 147 mg/dL (60-115)
[2024-10-14] VITALS (18 sets, daily range): BP systolic 133–198; BP diastolic 67–96; PULSE 84–100; RESP 12–20; TEMP 36.2–36.8; O2SAT 92–99; BMI 36.5
[2024-10-14 00:01] LABS: Anion Gap 13 (12-20); Blood Urea Nitrogen 14 mg/dL (9-16); Calcium 8.5 mg/dL (8.4-10.2); Carbon Dioxide 20 mmol/L (22-29); Chloride 115 mmol/L (96-108); Creatinine Clr Calc Pharmacy 111.8; Estimated Glomerular Filt Rate > 60; Glucose Random 147 mg/dL (60-115); Potassium 3.4 mmol/L (3.3-5.1); Sodium 145 mmol/L (135-145)
--- NOTE | 2024-10-14 00:05 | PC.NURSE ---
per DO Barnes d/c insulin and D5 drips
--- NOTE | 2024-10-14 00:51 | PM.IMHP ---
History of Present Illness Date of Service: 10/14/24 <FELICIA Charles Last Filed: 10/14/24 01:18> Attending physician on admission: Rigoberto Acosta <FELICIA Charles Last Filed: 10/14/24 01:18> Chief Complaint: Abdominal pain, nausea, vomiting, diarrhea <FELICIA Charles Last Filed: 10/14/24 01:18> Patient is a 63-year-old male with a past medical history significant for type 2 diabetes on insulin, CAD s/p 4VCABG in 2018, paroxysmal AFib on Xarelto, PID with history of osteomyelitis and amputation left great toe, HTN, mild intermittent asthma, CHF, who presented to the ED with 2 days of upper abdominal pain mostly in the epigastric region with associated nausea, vomiting and diarrhea he reports episodes of coffee-ground emesis as well as melena. He denies any sick contacts or recent antibiotic use. Describes an intense epigastric pain with generalized abdominal dull tenderness. He reports that he has been taking his medications as prescribed and takes Lantus 60 units in the morning and at bedtime. He takes Farxiga for congestive heart failure. His nausea is still very persistent despite Zofran as well as his abdominal pain is still significant with multiple doses of Dilaudid. <FELICIA Charles Last Filed: 10/14/24 01:18> Review of Systems Constitutional: Constitutional: Denies body ache(s), Denies chills, Denies fatigue, Denies fever(s) and Denies headache(s) <FELICIA Charles Last Filed: 10/14/24 01:18> Eyes: Eyes: Reports blurry vision <FELICIA Charles Last Filed: 10/14/24 01:18> ENT: Denies headache(s), Denies nasal congestion, Denies nasal discharge and Denies sore throat <FELICIA Charles Last Filed: 10/14/24 01:18> Cardiovascular: Cardiovascular: Denies chest pain, Denies rapid heart rate, Denies leg edema and Denies dyspnea <FELICIA Charles Last Filed: 10/14/24 01:18> Respiratory: Respiratory: Denies chest congestion, Denies cough, Denies dyspnea and Denies wheezing <PERRY Charles - Last Filed: 10/14/24 01:18> Gastrointestinal: Gastrointestinal: Reports melena, Reports coffee ground emesis, Reports diarrhea, Reports nausea and Reports vomiting <PERRY Charles [facility] Last Filed: 10/14/24 01:18> Genitourinary: Genitourinary: Denies dysuria and Denies urinary urgency <PERRY Charles [facility] Last Filed: 10/14/24 01:18> Musculoskeletal: Musculoskeletal: Denies myalgias <PERRY Charles [facility] Filed: 10/14/24 01:18> Integumentary/Breasts: Skin/Breast: Denies rash <[facility] Last Filed: 10/14/24 01:18> Neurologic: Denies confusion and Denies headache(s) <PERRY Charles [facility] Last Filed: 10/14/24 01:18> Psychiatric: Psychiatric: Denies confusion <[facility] Last Filed: 10/14/24 01:18> Endocrine: Endocrine: Denies fatigue <[facility] Last Filed: 10/14/24 01:18> Hematologic/Lymphatic: Hematologic/Lymphatic: Denies easy bleeding <PERRY Charles [facility] Last Filed: 10/14/24 01:18> Allergic/Immunologic: Allergic/Immunologic: Denies wheezing <PERRY Charles [facility] Last Filed: 10/14/24 01:18> [facility] Medical History: Medical History PAD (peripheral artery disease) Afib Amputation of left great toe Lower limb amputation, great toe CAD (coronary artery disease) DMII (diabetes mellitus, type 2) Orthopedic hardware present Hyperglycemia Cellulitis Asthma Diabetes Hypertension FHx: bilateral hip replacements <MALCOLM Charles [facility] Last Filed: 10/14/24 01:18> Functional capacity: independent ambulation <Nikole Mckenzie PA-C - Last Filed: 10/14/24 01:18> Family History: Family History Other No family history of coronary artery disease <FELICIA Charles Last Filed: 10/14/24 01:18> Surgical History: Surgical History History of amputation of toe (07/29/22) History of amputation of great toe (01/07/22) History of back surgery History of neck surgery History of ankle surgery H/O bilateral hip replacements S/P quadruple vessel bypass <FELICIA Charles Last Filed: 10/14/24 01:18> Social History: Social History Household Members: Spouse Household Members Other:: 3 Housing: Apartment Are you a primary inspector health care facilities to a significant other at home: No Do you presently have visiting nurse or other home services: No Alcohol intake: never Comment: refused bed or chair alarm Patient Tobacco Use Status: Former Tobacco user Tobacco use type: Cigarette Smoked in Last 30 Days: No Second Hand Smoke Exposure: No Use of substances other than those prescribed or required for medical reasons: No Advance Directives: No Advance Directives Information Provided: No Advance Directives Date on File: 01/04/22 service: No Current occupational status: disabled <FELICIA Charles Last Filed: 10/14/24 01:18> Narrative: no drug use, no smoking, occasional social etoh. <FELICIA Charles Last Filed: 10/14/24 01:18> Meds Allergies/Adverse reactions: Allergies Allergy/AdvReac Type Severity Reaction Status Date / Time morphine AdvReac Intermediate Hallucinati Verified 10/13/24 16:08 ons <FELICIA Charles Last Filed: 10/14/24 01:18> Active Medications: Current Medications Insulin Human Regular (Myxredlin) 100 unit in 100 mls @ 8 mls/hr IVCONT .[id number] WILLIAM; Protocol Last Titration: 10/14/24 00:04 Dose: 0 unit/hr, 0 mls/hr Dextrose (D10) 250 mls @ 750 mls/hr IV Q30M PRN PRN Reason: BG <70 Dextrose/Sodium Chloride (D51/2ns) 1,000 mls @ 150 mls/hr IVCONT .[id number] WILLIAM Last Infusion: 10/14/24 00:06 Dose: 0 mls/hr <Nikole Mckenzie PA-C - Last Filed: 10/14/24 01:18> Home medications: Home Medications ?Medication ?Instructions ?Recorded ?Confirmed ?Last Taken ?Type ezetimibe 10 mg tablet 1 tab PO DAILY 01/03/22 05/27/23 11/12/22 09:00 History gabapentin 300 mg capsule 1 cap PO TID 01/03/22 05/27/23 11/12/22 09:00 History insulin glargine 100 unit/mL 50 unit subcut QPM 01/03/22 05/27/23 11/12/22 09:00 History subcutaneous solution (Lantus U-100 Insulin) insulin lispro 100 unit/mL 40 unit subcut TIDAC 01/03/22 05/27/23 11/12/22 09:00 History subcutaneous solution isosorbide mononitrate 30 mg 1 tab PO DAILY 01/03/22 05/27/23 11/12/22 09:00 History tablet,extended release 24 hr loratadine 10 mg tablet 1 tab PO DAILY 01/03/22 05/27/23 11/12/22 09:00 History losartan 25 mg tablet 1 tab PO DAILY 01/03/22 05/27/23 11/12/22 09:00 History meclizine 25 mg tablet 1 tab PO TID 01/03/22 05/27/23 08/02/22 History montelukast 10 mg tablet 1 tab PO BEDTIME 01/03/22 05/27/23 11/11/22 History ondansetron HCl 4 mg tablet 1 tab PO TID PRN nausea 01/03/22 05/27/23 08/02/22 History oxycodone 20 mg tablet,crush 1 tab PO BID PRN Severe Pain 01/03/22 05/27/23 11/12/22 09:00 History resistant,extended release 12 hr (Scale Score 7-10) (OxyContin) pantoprazole 40 mg tablet,delayed 1 tab PO BID@0630,1630 01/03/22 05/27/23 11/12/22 09:00 History release rosuvastatin 40 mg tablet 1 tab PO BEDTIME 01/03/22 05/27/23 11/11/22 History thiamine HCl (vitamin B1) 100 mg 1 tab PO DAILY 01/03/22 05/27/23 11/12/22 09:00 History tablet zolpidem 10 mg tablet 1 tab PO BEDTIME 01/03/22 05/27/23 08/02/22 History rivaroxaban 20 mg tablet (Xarelto) 1 tab PO DAILY@1700 07/23/22 05/27/23 11/11/22 History aspirin 81 mg tablet,delayed 1 tab PO DAILY 08/04/22 05/27/23 11/12/22 09:00 History release tamsulosin 0.4 mg capsule 1 cap PO DAILY 08/04/22 05/27/23 11/12/22 09:00 History baclofen 10 mg tablet 1 tab PO TID 11/13/22 05/27/23 11/12/22 09:00 History furosemide 20 mg tablet 1 tab PO BID 11/13/22 05/27/23 11/12/22 09:00 History venlafaxine 100 mg tablet 1 tab PO BID 11/13/22 05/27/23 11/12/22 09:00 History valacyclovir 1 gram tablet 1,000 mg PO Q8H PRN Cold Sores 04/30/23 05/27/23 Unknown History (Valtrex) <Nikole Mckenzie PA-C - Last Filed: 10/14/24 01:18> Physical Exam Vital Signs and Narrative: Vital Signs: Last Vital Signs Temp 98.5 F 10/13/24 22:55 Pulse 106 H 10/13/24 22:55 Resp 19 10/13/24 22:55 BP 156/74 H 10/13/24 22:55 Pulse Ox 99 10/13/24 22:55 O2 Del Method Room Air 10/13/24 22:55 BMI result Body Mass Index 36.6 <Nikole Mckenzie PA-C - Last Filed: 10/14/24 01:18> General: AOx3, no acute distress Resp: CTA bilaterally CVS: S1, S2, RRR GI: +BS, generalized tenderness although worse in the epigastric region, no distention Skin: Warm, dry Extremities: No lower extremity edema Psych: Appropriate affect <Nikole Mckenzie PA-C - Last Filed: 10/14/24 01:18> Const: General: No confusion <Nikole Mckenzie PA-C - Last Filed: 10/14/24 01:18> Orientation/consciousness: No confusion <Nikole Mckenzie PA-C - Last Filed: 10/14/24 01:18> Neuro: General: No confusion <Nikole Mckenzie PA-C - Last Filed: 10/14/24 01:18> Results Labs CBC and Chem 7: 10/13/24 16:33 10/13/24 23:42 <Nikole Mckenzie PA-C - Last Filed: 10/14/24 01:18> Labs: Laboratory Results - last 24 hr 10/13/24 10/13/24 10/13/24 15:59 16:33 17:33 MCV 84.8 MCH 29.4 MCHC 34.6 RDW 14.1 Plt Count 366 D MPV 9.8 Immature Gran % (Auto) 0.5 H Neut % (Auto) 86.6 H Lymph % (Auto) 10.0 L Norton % (Auto) 2.6 Eos % (Auto) 0.0 Baso % (Auto) 0.3 Lymph # (Auto) 1.4 Norton # (Auto) 0.4 Eos # (Auto) 0.0 Baso # (Auto) 0.0 Abs Immat Gran (auto) 0.07 H Absolute Neuts (auto) 11.9 H Absolute Nucleated RBC 0.000 Nucleated RBC % (auto) 0.0 VBG pH VBG pCO2 VBG pO2 VBG HCO3 VBG O2 Saturation VBG Base Excess Anion Gap 26 H Estim Creat Clear Calc 83.8 Estimated GFR > 60 POC Glucose 281 H Random Glucose 295 H Lactic Acid 3.8 H* Lactic Acid F/U @ 2Hr Lactic Acid F/U @ 4Hr Calcium 10.1 D Magnesium 2.4 Total Bilirubin 0.6 Direct Bilirubin 0.2 AST 23 ALT 18 Alkaline Phosphatase 81 Troponin I High Sens 37.5 H Total Protein 7.8 Albumin 4.5 Lipase 5 L Beta-Hydroxybutyrate 4.63 H Urine Color Urine Appearance Urine pH Ur Specific Delton Urine Protein Urine Glucose (UA) Urine Ketones Urine Blood Urine Nitrite Ur Leukocyte Esterase Urine RBC Urine WBC Ur Squamous Epith Cells Urine Bacteria Hyaline Casts Influenza Type A (PCR) NEGATIVE Influenza Type B (PCR) NEGATIVE RSV RNA Qual (PCR) NEGATIVE SARS-CoV-2 RNA (RT-PCR) NEGATIVE 10/13/24 10/13/24 10/13/24 17:36 18:37 18:54 MCV MCH MCHC RDW Plt Count MPV Immature Gran % (Auto) Neut % (Auto) Lymph % (Auto) Norton % (Auto) Eos % (Auto) Baso % (Auto) Lymph # (Auto) Norton # (Auto) Eos # (Auto) Baso # (Auto) Abs Immat Gran (auto) Absolute Neuts (auto) Absolute Nucleated RBC Nucleated RBC % (auto) VBG pH 7.25 L VBG pCO2 37 VBG pO2 55 VBG HCO3 16 L VBG O2 Saturation 78.0 VBG Base Excess -9.9 Anion Gap Estim Creat Clear Calc Estimated GFR POC Glucose 257 H Random Glucose Lactic Acid Lactic Acid F/U @ 2Hr 2.4 H* Lactic Acid F/U @ 4Hr Calcium Magnesium Total Bilirubin Direct Bilirubin AST ALT Alkaline Phosphatase Troponin I High Sens Total Protein Albumin Lipase Beta-Hydroxybutyrate Urine Color Yellow Urine Appearance Clear Urine pH 5.5 Ur Specific Del[place] >= 1.030 H Urine Protein 100 (2+) H Urine Glucose (UA) >=1000 H Urine Ketones >=160 Urine Blood Trace H Urine Nitrite Negative Ur Leukocyte Esterase Negative Urine RBC 0-2 Urine WBC 0-5 Ur Squamous Epith Cells 0-2 Urine Bacteria None Seen Hyaline Casts 0-2 Influenza Type A (PCR) Influenza Type B (PCR) RSV RNA Qual (PCR) SARS-CoV-2 RNA (RT-PCR) 10/13/24 10/13/24 10/13/24 19:24 19:32 19:34 MCV MCH MCHC RDW Plt Count MPV Immature Gran % (Auto) Neut % (Auto) Lymph % (Auto) Norton % (Auto) Eos % (Auto) Baso % (Auto) Lymph # (Auto) Norton # (Auto) Eos # (Auto) Baso # (Auto) Abs Immat Gran (auto) Absolute Neuts (auto) Absolute Nucleated RBC Nucleated RBC % (auto) VBG pH 7.36 VBG pCO2 24 VBG pO2 93 VBG HCO3 14 L VBG O2 Saturation 97.0 VBG Base Excess -9.1 Anion Gap 21 H Estim Creat Clear Calc 105.3 Estimated GFR > 60 POC Glucose 210 H Random Glucose 220 H Lactic Acid Lactic Acid F/U @ 2Hr Lactic Acid F/U @ 4Hr Calcium 8.8 D Magnesium Total Bilirubin Direct Bilirubin AST ALT Alkaline Phosphatase Troponin I High Sens Total Protein Albumin Lipase Beta-Hydroxybutyrate Urine Color Urine Appearance Urine pH Ur Specific [place] Urine Protein Urine Glucose (UA) Urine Ketones Urine Blood Urine Nitrite Ur Leukocyte Esterase Urine RBC Urine WBC Ur Squamous Epith Cells Urine Bacteria Hyaline Casts Influenza Type A (PCR) Influenza Type B (PCR) RSV RNA Qual (PCR) SARS-CoV-2 RNA (RT-PCR) 10/13/24 10/13/24 10/13/24 20:53 21:30 21:41 MCV MCH MCHC RDW Plt Count MPV Immature Gran % (Auto) Neut % (Auto) Lymph % (Auto) Norton % (Auto) Eos % (Auto) Baso % (Auto) Lymph # (Auto) Norton # (Auto) Eos # (Auto) Baso # (Auto) Abs Immat Gran (auto) Absolute Neuts (auto) Absolute Nucleated RBC Nucleated RBC % (auto) VBG pH VBG pCO2 VBG pO2 VBG HCO3 VBG O2 Saturation VBG Base Excess Anion Gap Estim Creat Clear Calc Estimated GFR POC Glucose 190 H 223 H Random Glucose Lactic Acid Lactic Acid F/U @ 2Hr Lactic Acid F/U @ 4Hr 1.7 Calcium Magnesium Total Bilirubin Direct Bilirubin AST ALT Alkaline Phosphatase Troponin I High Sens Total Protein Albumin Lipase Beta-Hydroxybutyrate Urine Color Urine Appearance Urine pH Ur Specific Del[place] Urine Protein Urine Glucose (UA) Urine Ketones Urine Blood Urine Nitrite Ur Leukocyte Esterase Urine RBC Urine WBC Ur Squamous Epith Cells Urine Bacteria Hyaline Casts Influenza Type A (PCR) Influenza Type B (PCR) RSV RNA Qual (PCR) SARS-CoV-2 RNA (RT-PCR) 10/13/24 10/13/24 10/13/24 22:00 22:44 23:41 MCV MCH MCHC RDW Plt Count MPV Immature Gran % (Auto) Neut % (Auto) Lymph % (Auto) Norton % (Auto) Eos % (Auto) Baso % (Auto) Lymph # (Auto) Norton # (Auto) Eos # (Auto) Baso # (Auto) Abs Immat Gran (auto) Absolute Neuts (auto) Absolute Nucleated RBC Nucleated RBC % (auto) VBG pH VBG pCO2 VBG pO2 VBG HCO3 VBG O2 Saturation VBG Base Excess Anion Gap Estim Creat Clear Calc Estimated GFR POC Glucose 171 H 147 H 147 H Random Glucose Lactic Acid Lactic Acid F/U @ 2Hr Lactic Acid F/U @ 4Hr Calcium Magnesium Total Bilirubin Direct Bilirubin AST ALT Alkaline Phosphatase Troponin I High Sens Total Protein Albumin Lipase Beta-Hydroxybutyrate Urine Color Urine Appearance Urine pH Ur Specific [place] Urine Protein Urine Glucose (UA) Urine Ketones Urine Blood Urine Nitrite Ur Leukocyte Esterase Urine RBC Urine WBC Ur Squamous Epith Cells Urine Bacteria Hyaline Casts Influenza Type A (PCR) Influenza Type B (PCR) RSV RNA Qual (PCR) SARS-CoV-2 RNA (RT-PCR) 10/13/24 23:42 MCV MCH MCHC RDW Plt Count MPV Immature Gran % (Auto) Neut % (Auto) Lymph % (Auto) Norton % (Auto) Eos % (Auto) Baso % (Auto) Lymph # (Auto) Norton # (Auto) Eos # (Auto) Baso # (Auto) Abs Immat Gran (auto) Absolute Neuts (auto) Absolute Nucleated RBC Nucleated RBC % (auto) VBG pH VBG pCO2 VBG pO2 VBG HCO3 VBG O2 Saturation VBG Base Excess Anion Gap 13 Estim Creat Clear Calc 111.8 Estimated GFR > 60 POC Glucose Random Glucose 147 H Lactic Acid Lactic Acid F/U @ 2Hr Lactic Acid F/U @ 4Hr Calcium 8.5 Magnesium Total Bilirubin Direct Bilirubin AST ALT Alkaline Phosphatase Troponin I High Sens Total Protein Albumin Lipase Beta-Hydroxybutyrate Urine Color Urine Appearance Urine pH Ur Specific [place] Urine Protein Urine Glucose (UA) Urine Ketones Urine Blood Urine Nitrite Ur Leukocyte Esterase Urine RBC Urine WBC Ur Squamous Epith Cells Urine Bacteria Hyaline Casts Influenza Type A (PCR) Influenza Type B (PCR) RSV RNA Qual (PCR) SARS-CoV-2 RNA (RT-PCR) <Nikole Mckenzie PA-C - Last Filed: 10/14/24 01:18> Imaging Radiologist's Impressions: Impressions Chest X-Ray 10/13/24 16:08 IMPRESSION: No confluent airspace disease. Electronically signed by: Justin Benavidez MD 10/13/2024 06:17 PM EST RP Abdomen/Pelvis CT 10/13/24 17:13 IMPRESSION: * No acute intra-abdominal abnormality. * Hepatic steatosis. Electronically signed by: Shey Healy MD 10/13/2024 07:57 PM EST RP <Nikole Mckenzie PA-C - Last Filed: 10/14/24 01:18> Assessment and Plan (1) DKA (diabetic ketoacidosis): Qualifiers: Diabetes mellitus complication detail: without coma Diabetes mellitus type: other specified (including JEREMY) Qualified Code(s): E13.10 - Other specified diabetes mellitus with ketoacidosis without coma <Nikole Jonah PA-C - Last Filed: 10/14/24 01:18> Status: Acute <Nikole Jonah, PA-C - Last Filed: 10/14/24 01:18> (2) Intractable nausea and vomiting: Status: Acute <Nikole Jonah PA-C - Last Filed: 10/14/24 01:18> (3) Abdominal pain, acute, epigastric: Status: Acute <Nikole Jonah PA-C - Last Filed: 10/14/24 01:18> (4) Coffee ground emesis: Status: Acute <Nikole Jonah PA-C - Last Filed: 10/14/24 01:18> (5) Melena: Status: Acute <Nikole Reale, PA-C - Last Filed: 10/14/24 01:18> (6) Obesity (BMI 30-39.9): Status: Chronic <Nikole Jonah PA-C - Last Filed: 10/14/24 01:18> Patient is a 63-year-old male with a past medical history significant for type 2 diabetes on insulin, CAD s/p 4VCABG in 2018, paroxysmal AFib on Xarelto, PID with history of osteomyelitis and amputation left great toe, HTN, mild intermittent asthma, CHF, who presented to the ED with 2 days of upper abdominal pain mostly in the epigastric region with associated nausea, vomiting and diarrhea he reports episodes of coffee-ground emesis as well as melena. Euglycemic DKA with intractable nausea and vomiting -- likely secondary to farxiga - WBC 13.7, tachycardic, lactic acid elevated at 2.4, 3.8, no identified infectious source, likely all reactive secondary to DKA, no sepsis - labs consistent with metabolic acidosis with anion gap, closed with insulin drip, and fluids including dextrose - EKG with sinus tachycardia, troponin elevated, reactive - beta hydroxybutyrate elevated at 4.63, UA with ketones - chest x-ray negative - A/P CT negative - continue Lantus 60 units q.a.m. and q.h.s. - hold Farxiga - sliding scale insulin - diabetic diet Coffee-ground emesis and melena - IV Protonix 40 mg b.i.d. - hold Xarelto - GI consult CAD - continue home meds once med rec done PAD - continue home meds once med rec done HTN - continue home meds once med rec done Mild intermittent asthma, no acute exacerbation - continue home meds once med rec done CHF, no acute exacerbation - continue Lasix - hold Farxiga Obesity - BMI 36.6 - weight loss encouraged Full code VTE prophylaxis: Pneumoboots, anticoagulant contraindicated secondary to possible GI bleed Patient with euglycemic DKA with intractable nausea and vomiting likely secondary to Farxiga, complicated by coffee-ground emesis and melena requiring admission for at least 2 midnights stay for treatment and monitoring. <Nikole Mckenzie PA-C - Last Filed: 10/14/24 01:18> Patient is a 63-year-old male with a past medical history significant for type 2 diabetes on insulin, CAD s/p 4VCABG in 2018, paroxysmal AFib on Xarelto, PID with history of osteomyelitis and amputation left great toe, HTN, mild intermittent asthma, CHF, who presented to the ED with 2 days of upper abdominal pain mostly in the epigastric region with associated nausea, vomiting and diarrhea he reports episodes of coffee-ground emesis as well as melena. Euglycemic DKA with intractable nausea and vomiting -- likely secondary to farxiga - WBC 13.7, tachycardic, lactic acid elevated at 2.4, 3.8, no identified infectious source, likely all reactive secondary to DKA, no sepsis - labs consistent with metabolic acidosis with anion gap, closed with insulin drip, and fluids including dextrose - EKG with sinus tachycardia, troponin elevated, reactive - beta hydroxybutyrate elevated at 4.63, UA with ketones - chest x-ray negative - A/P CT negative - reduce Lantus to 30 units q.a.m. and q.h.s. - hold Farxiga - sliding scale insulin - diabetic diet Coffee-ground emesis and melena - IV Protonix 40 mg b.i.d. - hold Xarelto - GI consult CAD - continue home meds once med rec done PAD - continue home meds once med rec done HTN - continue home meds once med rec done Mild intermittent asthma, no acute exacerbation - continue home meds once med rec done CHF, no acute exacerbation - continue Lasix - hold Farxiga Obesity - BMI 36.6 - weight loss encouraged Full code VTE prophylaxis: Pneumoboots, anticoagulant contraindicated secondary to possible GI bleed Patient with euglycemic DKA with intractable nausea and vomiting likely secondary to Farxiga, complicated by coffee-ground emesis and melena requiring admission for at least 2 midnights stay for treatment and monitoring. <Rigoberto Acosta MD - Last Filed: 10/14/24 01:15> Quality Stroke Does the patient have a stroke diagnosis?: No <Nikole Mckenzie PA-C - Last Filed: 10/14/24 01:18> VTE Prior VTE?: No <Nikole Mckenzie PA-C - Last Filed: 10/14/24 01:18> VTE Risk Level:: Medical - moderate - high <Nikole Mckenzie PA-C - Last Filed: 10/14/24 01:18> VTE Device Contraindication: N/A - Device Ordered <Nikole Mckenzie PA-C - Last Filed: 10/14/24 01:18> VTE Drug Contraindication: Treatment Not Indicated <Nikole Mckenzie PA-C - Last Filed: 10/14/24 01:18>
[2024-10-14] MEDS: Lactated Ringers 1,000 ML 100 ML IVCONT (02:13)
[2024-10-14 02:24] LABS: Glucose, Whole Blood 146 mg/dL (60-115)
--- NOTE | 2024-10-14 02:25 | PC.NURSE ---
verified with PERRY Mckenzie that she wants more insulin ordered. poc 146, not in range to give lispro however per PA give lantus as ordered
[2024-10-14] MEDS: Insulin Glargine,Hum.rec.anlog 100 UNIT/ML 10 ML VIAL 30 UNIT SUBCUT (02:26)
[2024-10-14] MEDS: HYDROmorphone HCl 1 MG/ML SYRINGE IVPUSH (05:55)
[2024-10-14] MEDS: ondansetron HCL 4 MG/2 ML VIAL IVPUSH (05:55)
[2024-10-14] MEDS: Pantoprazole Sodium 40 MG/10 ML VIAL IVPUSH ×2 (05:55→16:04)
[2024-10-14 05:58] LABS: Glucose, Whole Blood 131 mg/dL (60-115)
[2024-10-14 06:05] LABS: Basophils Percent Auto 0.2 % (0-2); Eosinophils Percent Auto 0.1 % (0-4); Hematocrit 39.1 % (42.0-52.0); Hemoglobin 13.2 g/dl (14.0-18.0); Imm Gran Abs Auto 0.08 X10*3/uL (0.00-0.03); Imm Gran Pct Auto 0.5 % (0.0-0.4); Lymphocytes Absolute Auto 3.2 X10*3/uL (1.2-4.9); Lymphocytes Percent Auto 18.9 % (20-40); MANUAL DIFF FLAG SCAN; Mean Corpuscular HGB Conc 33.8 g/dl (31.0-36.0); Mean Corpuscular Volume 85.9 fL (80.0-98.0); Mean Platelet Volume 9.5 fL (9.4-12.4); Monocytes Absolute Auto 1.6 X10*3/uL (0.1-1.2); Monocytes Percent Auto 9.7 % (2-11); Neutrophils Absolute Auto 11.8 x10*3/uL (2.0-8.3); Neutrophils Percent Auto 70.6 % (45-73); Platelet Count 293 X10*3/uL (160-400); Red Blood Count 4.55 X10*6/uL (4.60-5.80); Red Cell Distribution Width 14.4 % (11.0-16.0); SCAN SMEAR FLAG 1; White Blood Count 16.7 X10*3/uL (4.8-10.8)
[2024-10-14 06:20] LABS: Anion Gap 17 (12-20); Blood Urea Nitrogen 15 mg/dL (9-16); Calcium 8.9 mg/dL (8.4-10.2); Carbon Dioxide 17 mmol/L (22-29); Chloride 115 mmol/L (96-108); Creatinine Clr Calc Pharmacy 111.8; Estimated Glomerular Filt Rate > 60; Glucose Random 139 mg/dL (60-115); Potassium 3.9 mmol/L (3.3-5.1); Sodium 145 mmol/L (135-145)
[2024-10-14 06:35] LABS: SLIDE REVIEW VERIFIED
[2024-10-14 07:07] LABS: Glucose, Whole Blood 144 mg/dL (60-115)
[2024-10-14 08:23] LABS: Beta-Hydroxybutyrate 3.24 mmol/L (0.02-0.27)
[2024-10-14] MEDS: Metoclopramide HCl 10 MG/2 ML VIAL 5 MG IVPUSH (08:42)
[2024-10-14] MEDS: 0.9 % Sodium Chloride Flush 3 ML SYRINGE IVFLUSH ×3 (08:43→21:12)
--- NOTE | 2024-10-14 08:59 | MHC.CM.PN ---
Patient lives in an apartment w/ . Ambulates w/ cane. Independent w/ ADL's. Denies use of any services. PCP @ [facility] Reports he has an HCP naming his , Holli, as HCA. Copy requested. DP: Goal is home self care. Would be open to VNA if recommended. Referral sent to [facility] via [facility] to transport. CM will continue to follow.
[2024-10-14 09:18] LABS: VBG Base Excess -7.4 mmol/L; VBG HCO3 16 mmol/L (22-26); VBG pCO2 30 mmHg; VBG pH 7.34 (7.32-7.43); VBG pO2 78 mmHg
[2024-10-14 09:18] LABS: Venous Blood Gas Refer to POC result
--- NOTE | 2024-10-14 09:53 | PHA.MEDREC ---
Addendum entered by Joselo Stauffer formerly [facility] 10/14/24 12:20: MED REC CHECKED BY [facility] Original Note: Pharmacy Consult ? Medication Reconciliation Pharmacy has completed the medication reconciliation. Spoke to patient to confirm med list. Patient states he is no longer taking Baclofen 10 mg, Insulin lispro, Montelukast 10 mg, Tamsulosin 0.4 mg, Zolpidem 10 mg Xarelto 20 mg. Patient is sure he isn't taking xarelto 20 mg(Last fill date 09/16/24 for 30 days), even though he has recent claims. Patient has consistent fill history since October 2023. Patient states he has been off of Xarelto for months.
--- NOTE | 2024-10-14 10:20 | P.EN_ITS ---
Event Note Date of Service: 10/14/24 Event Note: Patient is a 63 Y M w/ hypertension, insulin-dependent diabetes mellitus, c/b cardiovascular disease, s/p CABG, congestive heart failure, osteomyelitis s/p L toe amputation, and paroxysmal atrial fibrillation on rivaroxaban, presenting initially to the emergency department on 10/13 w/ hematemesis/melena, w/ labs c/f euglycemic DKA, initially admitted to medicine; on 10/14, ICU consulted d/t worsening labs, persistent nausea/vomiting; upon evaluation patient tearful, endorsing diffuse pain, though in no acute distress; abdomen soft, non- distended, no appreciable guarding, rebound; otherwise remaining exam grossly unremarkable; plan to initiate DKA protocol, appreciate gastroenterology recommendations Time Spent With Patient Time: Total time managing care of this patient today ____ minutes.
--- NOTE | 2024-10-14 10:32 | PM.EVENT ---
Event Note Date of Service: 10/14/24 Event Note: seen and examined this morning follow up for coffee ground emesis, euglycemic DKA retching on evaluation, reporting generalized abdominal pain; NPO for ?GI intervention although blood sugar remains stable and bicarb trending down; impending DKA and remains NPO, needs close blood sugar monitoring and possible insulin drip while unable to take po d/w ICU provider, will transfer to ICU for frequent blood sugar checks, close monitoring and possible insulin drip Time Spent With Patient Time: Total time managing care of this patient today ____ minutes.
[2024-10-14 10:41] LABS: Glucose, Whole Blood 156 mg/dL (60-115)
[2024-10-14] MEDS: Insulin Regular/NS 100 UNIT/100 ML PLAST..BAG IVCONT (10:42)
[2024-10-14] MEDS: Dextrose 5 % and Lactated Ring 1,000 ML 100 ML IVCONT (10:43)
[2024-10-14] MEDS: Acetaminophen 1,000 MG/100 ML PIGGYBACK 400 MG IV (11:08)
--- NOTE | 2024-10-14 11:14 | PM.GICN ---
History of Present Illness Data of Consult Service Date: 10/14/24 Requesting physician: Nikole Mckenzie Primary Care Provider: Unknown Physician HPI Reason for consult: Abdominal pain, nausea, vomiting This is a 63-year-old gentleman with a past medical history of type 2 diabetes, coronary artery disease status post CABG in 2018, history of peripheral vascular disease with history of osteomyelitis and left great toe amputation, atrial fibrillation on Xarelto, intermittent asthma, presented hospital on 10/13 for abdominal pain nausea and vomiting. Gastroenterology consulted for history of coffee-ground emesis and melena. On initial evaluation, he was noted to be tachycardic and hypertensive. Labs were significant for hemoconcentration and leukocytosis with anion gap metabolic acidosis secondary to ketosis and lactic acidosis. Was noted to be in euglycemic DKA likely secondary to Farxiga use. CT abdomen and pelvis with IV contrast did not show any acute gastrointestinal changes. No bowel obstruction. LFTs within normal limits. Lipase not elevated. Currently, patient has been transferred to ICU for insulin drip and frequent POC monitoring. Pt seen at bedside with present. Reports abd pain and nausea is better. Now reporting R sided lower chest pain. Review of Systems Review of Systems: Yes all other systems are reviewed and are negative PMFSH Past Medical History Medical History PAD (peripheral artery disease) Afib Amputation of left great toe Lower limb amputation, great toe CAD (coronary artery disease) DMII (diabetes mellitus, type 2) Orthopedic hardware present Hyperglycemia Cellulitis Asthma Diabetes Hypertension FHx: bilateral hip replacements Family History Family History Other No family history of coronary artery disease Surgical History Surgical History History of amputation of toe (07/29/22) History of amputation of great toe (01/07/22) History of back surgery History of neck surgery History of ankle surgery H/O bilateral hip replacements S/P quadruple vessel bypass Social History Social History Household Members: Spouse Household Members Other:: 3 Housing: House Are you a primary personal care attendant to a significant other at home: No Do you presently have visiting nurse or other home services: No Alcohol intake: never Comment: refused bed or chair alarm Patient Tobacco Use Status: Former Tobacco user Tobacco use type: Cigarette Smoked in Last 30 Days: No Second Hand Smoke Exposure: No Use of substances other than those prescribed or required for medical reasons: No Currently Displaying Signs/Symptoms of Drug Intoxication Withdrawal: No Any prior treatment program specific to substance use: No Have you been hit, kicked, punched, or otherwise hurt by someone within the past year? If so, by whom?: No Do you feel safe in your current relationship?: Yes Is there a partner from a previous relationship who is making you feel unsafe now?: No Are you made to feel afraid or neglected: No Advance Directives: No Advance Directives Information Provided: No Advance Directives Date on File: 01/04/22 Do you have a plan to hurt others: No Plan Recently lost weight without trying: No How much weight loss: Not applicable Eating poorly because of decreased appetite: No Nutrition screen score: 0 Nutrition Risks: Acute nausea or vomiting x1 week and Poor intake 0-25% >4 days Poor oral hygiene: No service: No Current occupational status: disabled Meds Allergies Allergy/AdvReac Type Severity Reaction Status Date / Time morphine AdvReac Intermediate Hallucinati Verified 10/13/24 16:08 ons Active Medications: Current Medications Dextrose (D10) 250 mls @ 750 mls/hr IV Q30M PRN PRN Reason: BG <70 Lactated Ringer's (Lr) 1,000 mls @ 100 mls/hr IVCONT .Q10H [facility] Last Admin: 10/14/24 10:49 Dose: Not Given Insulin Human Regular (Myxredlin) 100 unit in 100 mls @ 5 mls/hr IVCONT .Q20H [facility]; Protocol Last Admin: 10/14/24 10:42 Dose: 5 unit/hr, 5 mls/hr Dextrose (D10) 250 mls @ 750 mls/hr IV Q30M PRN PRN Reason: BG <70 Dextrose/Lactated Ringer's (D5lr) 1,000 mls @ 100 mls/hr IVCONT .Q10H [facility] Last Admin: 10/14/24 10:43 Dose: 100 mls/hr Acetaminophen (Ofirmev) 1,000 mg in 100 mls @ 400 mls/hr IV Q6H PRN PRN Reason: Pain, Moderate(Pain Scale 4-6) Stop: 10/15/24 05:14 Last Admin: 10/14/24 11:08 Dose: 400 mls/hr Ondansetron HCl (Ondansetron Hcl 4 Mg/2 Ml Vial) 4 mg IVPUSH Q4H PRN PRN Reason: Nausea and Vomiting Pantoprazole Sodium (Pantoprazole Sodium 40 Mg/10 Ml Vial) 40 mg IVPUSH BID@0630,1630 [facility] Last Admin: 10/14/24 05:55 Dose: 40 mg Sodium Chloride (0.9 % Sodium Chloride Flush 3 Ml Syringe) 3 ml IVFLUSH QSHIFT [facility] Last Admin: 10/14/24 08:43 Dose: 3 ml Home Medications ?Medication ?Instructions ?Recorded ?Confirmed ?Last Taken ?Type ezetimibe 10 mg tablet 1 tab PO DAILY 01/03/22 10/14/24 11/12/22 09:00 History gabapentin 300 mg capsule 1 cap PO TID 01/03/22 10/14/24 11/12/22 09:00 History insulin glargine 100 unit/mL 60 unit subcut BID 01/03/22 10/14/24 11/12/22 09:00 History subcutaneous solution (Lantus U-100 Insulin) isosorbide mononitrate 30 mg 1 tab PO DAILY 01/03/22 10/14/24 11/12/22 09:00 History tablet,extended release 24 hr loratadine 10 mg tablet 1 tab PO DAILY 01/03/22 10/14/24 11/12/22 09:00 History losartan 25 mg tablet 1 tab PO DAILY 01/03/22 10/14/24 11/12/22 09:00 History meclizine 25 mg tablet 1 tab PO TID 01/03/22 10/14/24 08/02/22 History pantoprazole 40 mg tablet,delayed 1 tab PO BID@0630,1630 01/03/22 10/14/24 11/12/22 09:00 History release rosuvastatin 40 mg tablet 1 tab PO BEDTIME 01/03/22 10/14/24 11/11/22 History aspirin 81 mg tablet,delayed 1 tab PO DAILY 08/04/22 10/14/24 11/12/22 09:00 History release furosemide 20 mg tablet 1 tab PO BID 11/13/22 10/14/24 11/12/22 09:00 History venlafaxine 100 mg tablet 1 tab PO BID 11/13/22 10/14/24 11/12/22 09:00 History dapagliflozin propanediol 10 mg 10 mg PO DAILY 10/14/24 10/14/24 Unknown History tablet (Farxiga) metoprolol succinate 25 mg 25 mg PO DAILY 10/14/24 10/14/24 Unknown History tablet,extended release 24 hr Physical Exam Vital Signs: Vital Signs: Last Vital Signs Temp 97.1 F 10/14/24 08:00 Pulse 97 10/14/24 08:00 Resp 18 10/14/24 08:00 BP 186/96 H 10/14/24 08:00 Pulse Ox 94 10/14/24 08:00 O2 Del Method Room Air 10/14/24 08:00 BMI result Body Mass Index 36.5 Appears older than stated age Nonicteric Able to answer most questions appropriately Abd soft, mildly tender, no guarding, nondistended No resp distress Mild pitting edema in b/l LE Results Labs 10/14/24 05:41 10/14/24 05:41 Labs: Short CBC 10/13/24 10/14/24 Range/Units 16:33 05:41 WBC 13.7 H 16.7 H (4.8-10.8) X10*3/uL Hgb 15.5 13.2 L (14.0-18.0) g/dl Hct 44.8 39.1 L (42.0-52.0) % Plt Count 366 D 293 (160-400) X10*3/uL BMP 10/13/24 10/13/24 10/13/24 16:33 19:32 23:42 Sodium 142 144 145 Potassium 4.0 3.7 3.4 Chloride 105 113 H 115 H Carbon Dioxide 15 L 14 L 20 L BUN 13 14 14 Creatinine 1.08 0.86 0.81 Calcium 10.1 D 8.8 D 8.5 10/14/24 05:41 Sodium 145 Potassium 3.9 Chloride 115 H Carbon Dioxide 17 L BUN 15 Creatinine 0.81 Calcium 8.9 Liver Function 10/13/24 Range/Units 16:33 Total Bilirubin 0.6 (0.0-1.0) mg/dL Direct Bilirubin 0.2 (0.0-0.5) mg/dL AST 23 (5-37) U/L ALT 18 (0-40) U/L Alkaline Phosphatase 81 (39-117) U/L Albumin 4.5 (3.5-5.0) g/dL Urine 10/13/24 Range/Units 18:54 Urine Color Yellow Urine Appearance Clear Urine pH 5.5 (5.0-9.0) Ur Specific [place] >= 1.030 H (1.005-1.025) Urine Protein 100 (2+) H (Neg-Trace) mg/dL Urine Glucose (UA) >=1000 H (Negative) mg/dL Assessment and Plan (1) Abdominal pain, acute, epigastric: Status: Acute (2) Coffee ground emesis: Status: Acute (3) Melena: Status: Acute (4) DKA (diabetic ketoacidosis): Qualifiers: Diabetes mellitus complication detail: without coma Diabetes mellitus type: other specified (including JEREMY) Qualified Code(s): E13.10 - Other specified diabetes mellitus with ketoacidosis without coma Status: Acute Plan Patient with abdominal pain, nausea and vomiting likely in the setting of underlying DKA. Coffee-ground emesis with melena likely secondary to gastritis versus esophagitis versus small Iris-Aggarwal tear. At this time, does not appear to have a clinically significant bleeding to warrant emergent endoscopy. The initial H/H reflects hemoconcentration - baseline Hb appears to be around 12. However, this can certainly be reconsidered if patient continues to be symptomatic despite resolution of DKA. Plan: - Keep HOB elevated to 30-45deg as DKA can predispose to delayed gastric emptying and increased reflux - Resume PO as per DKA protocol - Monitor H/H BID - Empiric Pantoprazole IV 40 BID - can be switched to PO when pt able to tolerate - Consider EGD if abd pain and vomiting persist despite resolution of DKA Thank you for the consultation. Please do not hesitate to reach out for questions or concerns. Procedures Date of Service Date of Service: 10/14/24
[2024-10-14] MEDS: HYDROmorphone HCl 0.5 MG/0.5 ML SYRINGE 1 MG IVPUSH ×4 (11:28→20:51)
[2024-10-14 12:07] LABS: Glucose, Whole Blood 142 mg/dL (60-115)
[2024-10-14 12:27] LABS: Anion Gap 17 (12-20); Blood Urea Nitrogen 15 mg/dL (9-16); Calcium 8.8 mg/dL (8.4-10.2); Carbon Dioxide 18 mmol/L (22-29); Chloride 115 mmol/L (96-108); Creatinine Clr Calc Pharmacy 113.1; Estimated Glomerular Filt Rate > 60; Glucose Random 147 mg/dL (60-115); Magnesium 2.3 mg/dL (1.6-2.6); Phosphorus 2.1 mg/dL (2.7-4.5); Potassium 3.8 mmol/L (3.3-5.1); Sodium 146 mmol/L (135-145)
[2024-10-14 13:00] LABS: Glucose, Whole Blood 136 mg/dL (60-115)
[2024-10-14] MEDS: Potassium Phosphate/NS 15 MMOL/250 ML PLAST..BAG 62.5 MMOL IV ×2 (13:10→21:12)
[2024-10-14 14:08] LABS: Glucose, Whole Blood 117 mg/dL (60-115)
[2024-10-14 15:04] LABS: Glucose, Whole Blood 99 mg/dL (60-115)
[2024-10-14 16:25] LABS: Anion Gap 15 (12-20); Blood Urea Nitrogen 14 mg/dL (9-16); Calcium 8.9 mg/dL (8.4-10.2); Carbon Dioxide 19 mmol/L (22-29); Chloride 116 mmol/L (96-108); Creatinine Clr Calc Pharmacy 117.5; Estimated Glomerular Filt Rate > 60; Glucose Random 115 mg/dL (60-115); Magnesium 2.4 mg/dL (1.6-2.6); Phosphorus 2.8 mg/dL (2.7-4.5); Sodium 146 mmol/L (135-145)
[2024-10-14 16:28] LABS: Glucose, Whole Blood 110 mg/dL (60-115)
[2024-10-14] MEDS: cefTRIAXone sodium 1 GM VIAL IVPUSH (16:53)
[2024-10-14 17:08] LABS: Glucose, Whole Blood 117 mg/dL (60-115)
[2024-10-14] MEDS: Dextrose 5 % and Lactated Ring 1,000 ML 150 ML IVCONT (18:17)
[2024-10-14 18:24] LABS: Glucose, Whole Blood 106 mg/dL (60-115)
[2024-10-14 19:03] LABS: Glucose, Whole Blood 89 mg/dL (60-115)
[2024-10-14 20:05] LABS: Glucose, Whole Blood 105 mg/dL (60-115)
[2024-10-14 20:31] LABS: Anion Gap 14 (12-20); Blood Urea Nitrogen 13 mg/dL (9-16); Calcium 8.7 mg/dL (8.4-10.2); Carbon Dioxide 20 mmol/L (22-29); Chloride 118 mmol/L (96-108); Creatinine Clr Calc Pharmacy 113.1; Estimated Glomerular Filt Rate > 60; Glucose Random 101 mg/dL (60-115); Magnesium 2.3 mg/dL (1.6-2.6); Phosphorus 2.5 mg/dL (2.7-4.5); Potassium 3.6 mmol/L (3.3-5.1); Sodium 148 mmol/L (135-145)
[2024-10-14] MEDS: Gabapentin 100 MG CAPSULE PO (20:51)
[2024-10-14 21:22] LABS: Glucose, Whole Blood 124 mg/dL (60-115)
[2024-10-14 22:01] LABS: Glucose, Whole Blood 113 mg/dL (60-115)
[2024-10-14 23:58] LABS: Glucose, Whole Blood 103 mg/dL (60-115)
[2024-10-15] VITALS (19 sets, daily range): BP systolic 132–171; BP diastolic 63–88; PULSE 57–99; RESP 10–22; TEMP 36–36.5; O2SAT 96–100
--- NOTE | 2024-10-15 | ECG_ITS ---
Test Reason : abd pain r/o angina equi Blood Pressure : / mmHG Vent. Rate : 071 BPM Atrial Rate : 071 BPM P-R Int : 180 ms QRS Dur : 090 ms QT Int : 438 ms P-R-T Axes : 056 -11 267 degrees QTc Int : 475 ms Sinus rhythm with occasional Premature ventricular complexes Inferior infarct , age undetermined T wave abnormality, consider anterior ischemia Abnormal ECG When compared with ECG of 13-OCT-2024 16:04, Premature ventricular complexes are now Present Vent. rate has decreased BY 37 BPM Inferior infarct is now Present T wave inversion now evident in Anterior leads Referred By: Cezar Esposito Electronically Signed By:SID ORTIZ
[2024-10-15] MEDS: HYDROmorphone HCl 0.5 MG/0.5 ML SYRINGE 1 MG IVPUSH ×3 (00:08→05:24)
[2024-10-15 00:51] LABS: Anion Gap 13 (12-20); Blood Urea Nitrogen 13 mg/dL (9-16); Calcium 8.8 mg/dL (8.4-10.2); Carbon Dioxide 22 mmol/L (22-29); Chloride 118 mmol/L (96-108); Creatinine Clr Calc Pharmacy 125.7; Estimated Glomerular Filt Rate > 60; Glucose Random 107 mg/dL (60-115); Magnesium 2.3 mg/dL (1.6-2.6); Phosphorus 3.1 mg/dL (2.7-4.5); Potassium 3.7 mmol/L (3.3-5.1); Sodium 149 mmol/L (135-145)
[2024-10-15 02:01] LABS: Glucose, Whole Blood 100 mg/dL (60-115)
[2024-10-15] MEDS: ondansetron HCL 4 MG/2 ML VIAL IVPUSH ×6 (02:07→23:59)
[2024-10-15] MEDS: Dextrose 5 % and Lactated Ring 1,000 ML 100 ML IVCONT (03:35)
[2024-10-15 04:14] LABS: Glucose, Whole Blood 100 mg/dL (60-115)
[2024-10-15 05:20] LABS: MANUAL DIFF FLAG NO
[2024-10-15 05:24] LABS: Basophils Absolute Auto 0.1 X10*3/uL (0.0-0.2); Basophils Percent Auto 0.5 % (0-2); Eosinophils Absolute Auto 0.1 X10*3/uL (0.0-0.4); Eosinophils Percent Auto 0.6 % (0-4); Hematocrit 41.5 % (42.0-52.0); Hemoglobin 13.7 g/dl (14.0-18.0); Imm Gran Abs Auto 0.06 X10*3/uL (0.00-0.03); Imm Gran Pct Auto 0.4 % (0.0-0.4); Lymphocytes Absolute Auto 3.1 X10*3/uL (1.2-4.9); Lymphocytes Percent Auto 21.3 % (20-40); Mean Corpuscular Hemoglobin 28.8 pg (27.0-33.0); Mean Corpuscular Volume 87.4 fL (80.0-98.0); Mean Platelet Volume 9.3 fL (9.4-12.4); Monocytes Absolute Auto 1.3 X10*3/uL (0.1-1.2); Neutrophils Absolute Auto 9.8 x10*3/uL (2.0-8.3); Neutrophils Percent Auto 68.2 % (45-73); Platelet Count 276 X10*3/uL (160-400); Red Blood Count 4.75 X10*6/uL (4.60-5.80); Red Cell Distribution Width 14.6 % (11.0-16.0); White Blood Count 14.4 X10*3/uL (4.8-10.8)
[2024-10-15] MEDS: Pantoprazole Sodium 40 MG/10 ML VIAL IVPUSH ×2 (05:24→17:05)
[2024-10-15 05:41] LABS: Anion Gap 14 (12-20); Blood Urea Nitrogen 12 mg/dL (9-16); Calcium 8.9 mg/dL (8.4-10.2); Carbon Dioxide 23 mmol/L (22-29); Chloride 117 mmol/L (96-108); Creatinine Clr Calc Pharmacy 123.9; Estimated Glomerular Filt Rate > 60; Glucose Random 107 mg/dL (60-115); Magnesium 2.3 mg/dL (1.6-2.6); Potassium 3.8 mmol/L (3.3-5.1); Sodium 150 mmol/L (135-145)
--- NOTE | 2024-10-15 07:40 | P.PNCC_ITS ---
Subjective Subjective Date of Service: 10/15/24 Interval History: no significant overnight events Critical Care Time (minutes): 0 Physical Exam 2 Vital Signs: Vital Signs: Last Vital Signs Temp 97.7 F 10/15/24 03:57 Pulse 86 10/15/24 07:00 Resp 12 10/15/24 07:00 BP 153/88 H 10/15/24 07:00 Pulse Ox 97 10/15/24 07:00 O2 Del Method Room Air 10/15/24 07:00 O2 Flow Rate 2 10/15/24 05:59 BMI result Body Mass Index 36.5 Const: General: cooperative, healthy appearing, comfortable, no acute distress, well developed, alert, awake and Physically active O rientation/consciousness: patient oriented x3 HEENT: Head: Yes normal to inspection, Yes normocephalic and Yes atraumatic Eyes: General: appearance normal, both eyes and all related structures Neck: Neck: Yes normal visual inspection, Yes full ROM, Yes no meningeal signs, Yes trachea midline and Yes supple Chest: Chest palpation & inspection: normal inspection of the chest Resp: Other: no appreciable rales, rhonchi, wheezing Effort & Inspection: normal respiratory effort Cardio: Rate: regular rate Rhythm: regular rhythm GI: Other: no appreciable tenderness to palpation throughout Inspection: Yes normal to inspection, No Abdominal wall edema and No distended Palpation (GI): Soft to palpation, not firm, nontender, no guarding and not rigid Skin: General skin exam: no rashes or lesions noted Neuro: General: patient oriented x3, tone normal, moves all extremities, no meningeal signs and no focal motor deficits Extrem: Other: appreciable L toe amputations General: Yes normal to inspection, Yes full ROM, Yes capillary refill normal and Yes no clubbing, cyanosis or edema Psych: Appearance: grossly normal Objective Data Labs 10/15/24 05:15 10/15/24 05:15 Labs: Laboratory Results - last 24 hr 10/14/24 10/14/24 10/14/24 05:41 09:11 10:37 WBC RBC Hgb Hct MCV MCH MCHC RDW Plt Count MPV Immature Gran % (Auto) Neut % (Auto) Lymph % (Auto) [place] % (Auto) Eos % (Auto) Baso % (Auto) Lymph # (Auto) [place] # (Auto) Eos # (Auto) Baso # (Auto) Abs Immat Gran (auto) Absolute Neuts (auto) Absolute Nucleated RBC Nucleated RBC % (auto) VBG pH 7.34 VBG pCO2 30 VBG pO2 78 VBG HCO3 16 L VBG O2 Saturation 95.0 VBG Base Excess -7.4 Sodium Potassium Chloride Carbon Dioxide Anion Gap BUN Creatinine Estim Creat Clear Calc Estimated GFR POC Glucose 156 H Random Glucose Calcium Phosphorus Magnesium Beta-Hydroxybutyrate 3.24 H Blood Type Antibody Screen 10/14/24 10/14/24 10/14/24 12:04 12:56 14:02 WBC RBC Hgb Hct MCV MCH MCHC RDW Plt Count MPV Immature Gran % (Auto) Neut % (Auto) Lymph % (Auto) [place] % (Auto) Eos % (Auto) Baso % (Auto) Lymph # (Auto) [place] # (Auto) Eos # (Auto) Baso # (Auto) Abs Immat Gran (auto) Absolute Neuts (auto) Absolute Nucleated RBC Nucleated RBC % (auto) VBG pH VBG pCO2 VBG pO2 VBG HCO3 VBG O2 Saturation VBG Base Excess Sodium 146 H Potassium 3.8 Chloride 115 H Carbon Dioxide 18 L Anion Gap 17 BUN 15 Creatinine 0.80 Estim Creat Clear Calc 113.1 Estimated GFR > 60 POC Glucose 142 H 136 H 117 H Random Glucose 147 H Calcium 8.8 Phosphorus 2.1 L Magnesium 2.3 Beta-Hydroxybutyrate Blood Type O Positive Antibody Screen NEGATIVE 10/14/24 10/14/24 10/14/24 15:00 16:02 16:12 WBC RBC Hgb Hct MCV MCH MCHC RDW Plt Count MPV Immature Gran % (Auto) Neut % (Auto) Lymph % (Auto) [place] % (Auto) Eos % (Auto) Baso % (Auto) Lymph # (Auto) [place] # (Auto) Eos # (Auto) Baso # (Auto) Abs Immat Gran (auto) Absolute Neuts (auto) Absolute Nucleated RBC Nucleated RBC % (auto) VBG pH VBG pCO2 VBG pO2 VBG HCO3 VBG O2 Saturation VBG Base Excess Sodium 146 H Potassium 4.0 Chloride 116 H Carbon Dioxide 19 L Anion Gap 15 BUN 14 Creatinine 0.77 Estim Creat Clear Calc 117.5 Estimated GFR > 60 POC Glucose 99 110 Random Glucose 115 Calcium 8.9 Phosphorus 2.8 Magnesium 2.4 Beta-Hydroxybutyrate Blood Type Antibody Screen 10/14/24 10/14/24 10/14/24 17:02 18:11 18:59 WBC RBC Hgb Hct MCV MCH MCHC RDW Plt Count MPV Immature Gran % (Auto) Neut % (Auto) Lymph % (Auto) [place] % (Auto) Eos % (Auto) Baso % (Auto) Lymph # (Auto) [place] # (Auto) Eos # (Auto) Baso # (Auto) Abs Immat Gran (auto) Absolute Neuts (auto) Absolute Nucleated RBC Nucleated RBC % (auto) VBG pH VBG pCO2 VBG pO2 VBG HCO3 VBG O2 Saturation VBG Base Excess Sodium Potassium Chloride Carbon Dioxide Anion Gap BUN Creatinine Estim Creat Clear Calc Estimated GFR POC Glucose 117 H 106 89 Random Glucose Calcium Phosphorus Magnesium Beta-Hydroxybutyrate Blood Type Antibody Screen 10/14/24 10/14/24 10/14/24 19:51 20:02 21:19 WBC RBC Hgb Hct MCV MCH MCHC RDW Plt Count MPV Immature Gran % (Auto) Neut % (Auto) Lymph % (Auto) [place] % (Auto) Eos % (Auto) Baso % (Auto) Lymph # (Auto) [place] # (Auto) Eos # (Auto) Baso # (Auto) Abs Immat Gran (auto) Absolute Neuts (auto) Absolute Nucleated RBC Nucleated RBC % (auto) VBG pH VBG pCO2 VBG pO2 VBG HCO3 VBG O2 Saturation VBG Base Excess Sodium 148 H Potassium 3.6 Chloride 118 H Carbon Dioxide 20 L Anion Gap 14 BUN 13 Creatinine 0.80 Estim Creat Clear Calc 113.1 Estimated GFR > 60 POC Glucose 105 124 H Random Glucose 101 Calcium 8.7 Phosphorus 2.5 L Magnesium 2.3 Beta-Hydroxybutyrate Blood Type Antibody Screen 10/14/24 10/14/24 10/15/24 21:57 23:54 00:19 WBC RBC Hgb Hct MCV MCH MCHC RDW Plt Count MPV Immature Gran % (Auto) Neut % (Auto) Lymph % (Auto) [place] % (Auto) Eos % (Auto) Baso % (Auto) Lymph # (Auto) [place] # (Auto) Eos # (Auto) Baso # (Auto) Abs Immat Gran (auto) Absolute Neuts (auto) Absolute Nucleated RBC Nucleated RBC % (auto) VBG pH VBG pCO2 VBG pO2 VBG HCO3 VBG O2 Saturation VBG Base Excess Sodium 149 H Potassium 3.7 Chloride 118 H Carbon Dioxide 22 Anion Gap 13 BUN 13 Creatinine 0.72 Estim Creat Clear Calc 125.7 Estimated GFR > 60 POC Glucose 113 103 Random Glucose 107 Calcium 8.8 Phosphorus 3.1 Magnesium 2.3 Beta-Hydroxybutyrate Blood Type Antibody Screen 10/15/24 10/15/24 10/15/24 01:52 03:56 05:15 WBC 14.4 H RBC 4.75 Hgb 13.7 L Hct 41.5 L MCV 87.4 MCH 28.8 MCHC 33.0 RDW 14.6 Plt Count 276 MPV 9.3 L Immature Gran % (Auto) 0.4 Neut % (Auto) 68.2 Lymph % (Auto) 21.3 [place] % (Auto) 9.0 Eos % (Auto) 0.6 Baso % (Auto) 0.5 Lymph # (Auto) 3.1 [place] # (Auto) 1.3 H Eos # (Auto) 0.1 Baso # (Auto) 0.1 Abs Immat Gran (auto) 0.06 H Absolute Neuts (auto) 9.8 H Absolute Nucleated RBC 0.000 Nucleated RBC % (auto) 0.0 VBG pH VBG pCO2 VBG pO2 VBG HCO3 VBG O2 Saturation VBG Base Excess Sodium 150 H Potassium 3.8 Chloride 117 H Carbon Dioxide 23 Anion Gap 14 BUN 12 Creatinine 0.73 Estim Creat Clear Calc 123.9 Estimated GFR > 60 POC Glucose 100 100 Random Glucose 107 Calcium 8.9 Phosphorus 3.0 Magnesium 2.3 Beta-Hydroxybutyrate Blood Type Antibody Screen Microbiology Microbiology Results: Microbiology 10/13/24 16:36 Blood - Venous Blood Culture - Preliminary No growth after 24 hours. 10/13/24 16:33 Blood - Venous Blood Culture - Preliminary No growth after 24 hours. Progress Note: A&P Assessment and plan (1) DKA (diabetic ketoacidosis): Status: Acute Plan Patient is a 63 Y M w/ hypertension, insulin-dependent diabetes mellitus, c/b cardiovascular disease, s/p CABG, congestive heart failure, osteomyelitis s/p L toe amputation, and paroxysmal atrial fibrillation on rivaroxaban, presenting initially to the emergency department on 10/13 w/ hematemesis/melena, w/ labs c/f euglycemic DKA, initially admitted to medicine; on 10/14, ICU consulted d/t worsening labs, persistent nausea/vomiting N: no acute issues CV: no acute issues; extensive cardiovascular?disease R: no acute issues GI: hematemesis/melena, pantoprazole BID, appreciate gastroenterology?recommendations; advance diet as tolerated/when off DKA protocol : no acute issues H: no acute issues; to monitor closely in setting of hematemesis/melena; to avoid chemical DVT prophylaxis; mechanical devices as tolerated ID: no overt stigmata of infection, though self-reported chills, empiric ceftriaxone x3 days, follow-up BCx E: insulin-dependent diabetes mellitus, c/b euglycemic DKA, DKA protocol P: no acute issues Quality Stroke Does the patient have a stroke diagnosis?: No VTE Prior VTE?: No VTE Risk Level:: Medical - moderate - high VTE Device Contraindication: N/A - Device Ordered VTE Drug Contraindication: Treatment Not Tolerated
[2024-10-15] MEDS: HYDROmorphone HCl 1 MG/ML SYRINGE IVPUSH (08:31)
[2024-10-15] MEDS: 0.9 % Sodium Chloride Flush 3 ML SYRINGE IVFLUSH ×3 (08:31→20:11)
[2024-10-15 08:38] LABS: Anion Gap 9 (12-20); Blood Urea Nitrogen 10 mg/dL (9-16); Calcium 8.8 mg/dL (8.4-10.2); Carbon Dioxide 27 mmol/L (22-29); Chloride 116 mmol/L (96-108); Creatinine Clr Calc Pharmacy 127.4; Estimated Glomerular Filt Rate > 60; Glucose Random 106 mg/dL (60-115); Magnesium 2.1 mg/dL (1.6-2.6); Phosphorus 2.9 mg/dL (2.7-4.5); Potassium 3.8 mmol/L (3.3-5.1); Sodium 148 mmol/L (135-145)
[2024-10-15 09:06] LABS: Glucose, Whole Blood 93 mg/dL (60-115)
[2024-10-15 09:06] LABS: Glucose, Whole Blood 104 mg/dL (60-115)
[2024-10-15] MEDS: Metoprolol Succinate ER 25 MG TAB.ER.24H PO (10:07)
[2024-10-15] MEDS: Furosemide 20 MG TABLET PO (10:08)
[2024-10-15] MEDS: Losartan Potassium 25 MG TABLET PO (10:08)
[2024-10-15 10:09] LABS: Glucose, Whole Blood 93 mg/dL (60-115)
[2024-10-15] MEDS: Insulin Glargine,Hum.rec.anlog 100 UNIT/ML 10 ML VIAL 25 UNIT SUBCUT ×2 (10:57→20:10)
--- NOTE | 2024-10-15 11:15 | PC.NURSE ---
Attempting to transition patient to PO, c/o nausea this morning refusing PO meds, Zofran given as ordered and PO meds given 30mins after, given and tolerated without vomiting. Patient continues to c/o nausea and spitting up but no emesis noted. Patient refusing Lantus to be able to transition to SQ insulin and stop insulin gtt, explained rationale to patient and , denied understanding, MD in to explain and patient still hesitant to transition, but accepted. Lunch ordered, insulin gtt to be shut off after 1hr of SQ Lantus administration.
[2024-10-15 11:17] LABS: Glucose, Whole Blood 97 mg/dL (60-115)
--- NOTE | 2024-10-15 11:31 | P.CDIM_ITS ---
PROVIDER RESPONSE TEXT: To clarify, the appropriate diagnosis supported by the clinical indicators: Hypernatremia: Probable QUERY TEXT: PHYSICIAN'S DOCUMENTATION REQUEST Date of Query: 10/15/2024 08:00 AM EST Patient Name: Patric Gomez Admit Date: 10/14/2024 Dear Lucy Osborne MD, A review of the medical record indicates additional documentation may be needed. Please review below and update the documentation accordingly. Clinical Indicators: LABS: sodium 149 H 150 H Fluids Based on the above, is there a possible diagnosis that correlates with these lab findings: Hypernatremia possible, probable, suspected, resolved etc. Labs indicate a diagnosis of (please specify) Other (explain) Clinically unable to determine (explain) Thank you, Paulina Javier, CCS, CDIS Use of terms such as suspected, likely, concern for, or probable (associated with a specific diagnosi s that is being evaluated, monitored, or treated as if it exists) are acceptable and can be coded in the inpatient se tting, when documented at the time of discharge. Please use your independent medical judgment in providing your response. THIS QUERY IS PART OF THE PERMANENT MEDICAL RECORD
--- NOTE | 2024-10-15 11:31 | P.CDIM_ITS ---
PROVIDER RESPONSE TEXT: To clarify, the appropriate diagnosis supported by the clinical indicators: Acute QUERY TEXT: PHYSICIAN'S DOCUMENTATION REQUEST Date of Query: 10/15/2024 08:02 AM EST Patient Name: Patric Gomez Admit Date: 10/14/2024 Dear Lucy Osborne MD, A review of the medical record indicates additional documentation may be needed. Please review below and update the documentation accordingly. Clinical Indicators: H&P 10/14 within the written Plan: labs consistent with metabolic acidosis. Possible to please clarify which of the following accurately represents the acuity of the Metabolic a cidosis, if known: Possible options might include: Acute Acute on chronic Chronic Other (explain) Clinically unable to determine (explain) Thank you, Paulina Javier, CCS, CDIS Use of terms such as suspected, likely, concern for, or probable (associated with a specific diagnosi s that is being evaluated, monitored, or treated as if it exists) are acceptable and can be coded in the inpatient se tting, when documented at the time of discharge. Please use your independent medical judgment in providing your response. THIS QUERY IS PART OF THE PERMANENT MEDICAL RECORD
[2024-10-15] MEDS: oxyCODONE HCl Immed Release 5 MG TABLET 10 MG PO ×2 (12:26→20:09)
[2024-10-15 12:27] LABS: Glucose, Whole Blood 93 mg/dL (60-115)
[2024-10-15 14:26] LABS: Glucose, Whole Blood 124 mg/dL (60-115)
[2024-10-15] MEDS: HYDROmorphone HCl 0.5 MG/0.5 ML SYRINGE IVPUSH ×2 (15:33→18:40)
[2024-10-15 16:09] LABS: Glucose, Whole Blood 147 mg/dL (60-115)
--- NOTE | 2024-10-15 17:01 | P.PNGI_ITS ---
Subjective Subjective Date of Service: 10/15/24 Interval History: Seen at bedside. Transferred out of ICU. Reports improved abd pain, minimal nausea. Was able to take soup and crackers earlier today. Critical Care Time (minutes): 0 Physical Exam 2 Vital Signs: Vital Signs: Last Vital Signs Temp 97.0 F 10/15/24 15:14 Pulse 74 10/15/24 15:14 Resp 18 10/15/24 15:14 BP 162/63 H 10/15/24 15:14 Pulse Ox 99 10/15/24 15:14 O2 Del Method Room Air 10/15/24 15:14 O2 Flow Rate 2 10/15/24 14:19 BMI result Body Mass Index 36.5 No apparent distress Nonicteric Abdomen soft, nondistended Alert and oriented x3, normal gait Objective Data Labs 10/15/24 05:15 10/15/24 08:08 Labs: Laboratory Results - last 24 hr 10/14/24 10/14/24 10/14/24 17:02 18:11 18:59 WBC RBC Hgb Hct MCV MCH MCHC RDW Plt Count MPV Immature Gran % (Auto) Neut % (Auto) Lymph % (Auto) [place] % (Auto) Eos % (Auto) Baso % (Auto) Lymph # (Auto) [place] # (Auto) Eos # (Auto) Baso # (Auto) Abs Immat Gran (auto) Absolute Neuts (auto) Absolute Nucleated RBC Nucleated RBC % (auto) Sodium Potassium Chloride Carbon Dioxide Anion Gap BUN Creatinine Estim Creat Clear Calc Estimated GFR POC Glucose 117 H 106 89 Random Glucose Calcium Phosphorus Magnesium 10/14/24 10/14/24 10/14/24 19:51 20:02 21:19 WBC RBC Hgb Hct MCV MCH MCHC RDW Plt Count MPV Immature Gran % (Auto) Neut % (Auto) Lymph % (Auto) [place] % (Auto) Eos % (Auto) Baso % (Auto) Lymph # (Auto) [place] # (Auto) Eos # (Auto) Baso # (Auto) Abs Immat Gran (auto) Absolute Neuts (auto) Absolute Nucleated RBC Nucleated RBC % (auto) Sodium 148 H Potassium 3.6 Chloride 118 H Carbon Dioxide 20 L Anion Gap 14 BUN 13 Creatinine 0.80 Estim Creat Clear Calc 113.1 Estimated GFR > 60 POC Glucose 105 124 H Random Glucose 101 Calcium 8.7 Phosphorus 2.5 L Magnesium 2.3 10/14/24 10/14/24 10/15/24 21:57 23:54 00:19 WBC RBC Hgb Hct MCV MCH MCHC RDW Plt Count MPV Immature Gran % (Auto) Neut % (Auto) Lymph % (Auto) [place] % (Auto) Eos % (Auto) Baso % (Auto) Lymph # (Auto) [place] # (Auto) Eos # (Auto) Baso # (Auto) Abs Immat Gran (auto) Absolute Neuts (auto) Absolute Nucleated RBC Nucleated RBC % (auto) Sodium 149 H Potassium 3.7 Chloride 118 H Carbon Dioxide 22 Anion Gap 13 BUN 13 Creatinine 0.72 Estim Creat Clear Calc 125.7 Estimated GFR > 60 POC Glucose 113 103 Random Glucose 107 Calcium 8.8 Phosphorus 3.1 Magnesium 2.3 10/15/24 10/15/24 10/15/24 01:52 03:56 05:15 WBC 14.4 H RBC 4.75 Hgb 13.7 L Hct 41.5 L MCV 87.4 MCH 28.8 MCHC 33.0 RDW 14.6 Plt Count 276 MPV 9.3 L Immature Gran % (Auto) 0.4 Neut % (Auto) 68.2 Lymph % (Auto) 21.3 [place] % (Auto) 9.0 Eos % (Auto) 0.6 Baso % (Auto) 0.5 Lymph # (Auto) 3.1 [place] # (Auto) 1.3 H Eos # (Auto) 0.1 Baso # (Auto) 0.1 Abs Immat Gran (auto) 0.06 H Absolute Neuts (auto) 9.8 H Absolute Nucleated RBC 0.000 Nucleated RBC % (auto) 0.0 Sodium 150 H Potassium 3.8 Chloride 117 H Carbon Dioxide 23 Anion Gap 14 BUN 12 Creatinine 0.73 Estim Creat Clear Calc 123.9 Estimated GFR > 60 POC Glucose 100 100 Random Glucose 107 Calcium 8.9 Phosphorus 3.0 Magnesium 2.3 10/15/24 10/15/24 10/15/24 07:50 08:08 09:01 WBC RBC Hgb Hct MCV MCH MCHC RDW Plt Count MPV Immature Gran % (Auto) Neut % (Auto) Lymph % (Auto) [place] % (Auto) Eos % (Auto) Baso % (Auto) Lymph # (Auto) [place] # (Auto) Eos # (Auto) Baso # (Auto) Abs Immat Gran (auto) Absolute Neuts (auto) Absolute Nucleated RBC Nucleated RBC % (auto) Sodium 148 H Potassium 3.8 Chloride 116 H Carbon Dioxide 27 Anion Gap 9 L BUN 10 Creatinine 0.71 Estim Creat Clear Calc 127.4 Estimated GFR > 60 POC Glucose 93 104 Random Glucose 106 Calcium 8.8 Phosphorus 2.9 Magnesium 2.1 10/15/24 10/15/24 10/15/24 10:04 11:12 12:03 WBC RBC Hgb Hct MCV MCH MCHC RDW Plt Count MPV Immature Gran % (Auto) Neut % (Auto) Lymph % (Auto) [place] % (Auto) Eos % (Auto) Baso % (Auto) Lymph # (Auto) [place] # (Auto) Eos # (Auto) Baso # (Auto) Abs Immat Gran (auto) Absolute Neuts (auto) Absolute Nucleated RBC Nucleated RBC % (auto) Sodium Potassium Chloride Carbon Dioxide Anion Gap BUN Creatinine Estim Creat Clear Calc Estimated GFR POC Glucose 93 97 93 Random Glucose Calcium Phosphorus Magnesium 10/15/24 10/15/24 14:19 15:55 WBC RBC Hgb Hct MCV MCH MCHC RDW Plt Count MPV Immature Gran % (Auto) Neut % (Auto) Lymph % (Auto) [place] % (Auto) Eos % (Auto) Baso % (Auto) Lymph # (Auto) [place] # (Auto) Eos # (Auto) Baso # (Auto) Abs Immat Gran (auto) Absolute Neuts (auto) Absolute Nucleated RBC Nucleated RBC % (auto) Sodium Potassium Chloride Carbon Dioxide Anion Gap BUN Creatinine Estim Creat Clear Calc Estimated GFR POC Glucose 124 H 147 H Random Glucose Calcium Phosphorus Magnesium Microbiology Microbiology Results: Microbiology 10/13/24 16:36 Blood - Venous Blood Culture - Preliminary No growth after 24 hours. 10/13/24 16:33 Blood - Venous Blood Culture - Preliminary No growth after 24 hours. Procedures Date of Service Date of Service: 10/15/24 Progress Note: A&P Assessment and plan (1) Melena: Status: Acute (2) Coffee ground emesis: Status: Acute (3) Abdominal pain, acute, epigastric: Status: Acute (4) DKA (diabetic ketoacidosis): Status: Acute Plan Pt has had improvement in GI sx with improvement in DKA. No further vomiting or drop in H/H since volume resuscitation. Plan: - DKA mgmt as per primary team - Cont protonix, can be given as PO - Consider rechecking BMP this evening given uptrend in glucose Time Spent With Patient Time: Total time managing care of this patient today ____ minutes. Quality Stroke Does the patient have a stroke diagnosis?: No VTE Prior VTE?: No VTE Risk Level:: Medical - moderate - high VTE Device Contraindication: N/A - Device Ordered VTE Drug Contraindication: Treatment Not Tolerated
[2024-10-15 18:07] LABS: Glucose, Whole Blood 190 mg/dL (60-115)
[2024-10-15 18:56] LABS: VBG Base Excess 2.9 mmol/L; VBG HCO3 26 mmol/L (22-26); VBG pCO2 34 mmHg; VBG pH 7.48 (7.32-7.43); VBG pO2 103 mmHg
[2024-10-15 19:01] LABS: Venous Blood Gas Refer to POC result
[2024-10-15 19:14] LABS: Anion Gap 13 (12-20); Blood Urea Nitrogen 8 mg/dL (9-16); Calcium 8.4 mg/dL (8.4-10.2); Carbon Dioxide 23 mmol/L (22-29); Chloride 112 mmol/L (96-108); Creatinine Clr Calc Pharmacy 127.4; Estimated Glomerular Filt Rate > 60; Glucose Random 182 mg/dL (60-115); Potassium 3.6 mmol/L (3.3-5.1); Sodium 144 mmol/L (135-145)
[2024-10-15 19:22] LABS: Troponin-I High Sensitivity 11.5 ng/L (<3.5-35.0)
[2024-10-15 19:34] LABS: Beta-Hydroxybutyrate 0.91 mmol/L (0.02-0.27)
[2024-10-15 20:00] LABS: Glucose, Whole Blood 169 mg/dL (60-115)
[2024-10-15] MEDS: Insulin Lispro 100 UNIT/ML 3 ML VIAL SUBCUT (20:10)
[2024-10-15] MEDS: Gabapentin 100 MG CAPSULE PO (23:59)
[2024-10-16] MEDS: oxyCODONE HCl Immed Release 5 MG TABLET 10 MG PO ×6 (02:02→22:27)
[2024-10-16 04:00] VITALS: BP 158/86; PULSE 86; RESP 16; TEMP 36.8; O2SAT 100
[2024-10-16] MEDS: Pantoprazole Sodium 40 MG/10 ML VIAL IVPUSH ×2 (05:00→16:46)
[2024-10-16] MEDS: ondansetron HCL 4 MG/2 ML VIAL IVPUSH ×5 (05:00→22:27)
--- NOTE | 2024-10-16 05:51 | PC.NURSE ---
0500 Pt sitting on edge of bed crying in pain .States pain is 12/10 mid abd not due for oxycodone until 0800. notified ordered to give dose early.Medicated with oxycodone 10mg at 0512.
[2024-10-16 06:22] LABS: MANUAL DIFF FLAG NO
[2024-10-16 06:35] LABS: Basophils Absolute Auto 0.1 X10*3/uL (0.0-0.2); Basophils Percent Auto 0.6 % (0-2); Eosinophils Absolute Auto 0.2 X10*3/uL (0.0-0.4); Eosinophils Percent Auto 1.6 % (0-4); Hematocrit 39.2 % (42.0-52.0); Imm Gran Abs Auto 0.03 X10*3/uL (0.00-0.03); Imm Gran Pct Auto 0.3 % (0.0-0.4); Lymphocytes Absolute Auto 2.7 X10*3/uL (1.2-4.9); Mean Corpuscular HGB Conc 33.2 g/dl (31.0-36.0); Mean Corpuscular Hemoglobin 28.9 pg (27.0-33.0); Mean Corpuscular Volume 87.1 fL (80.0-98.0); Mean Platelet Volume 9.8 fL (9.4-12.4); Monocytes Absolute Auto 0.7 X10*3/uL (0.1-1.2); Monocytes Percent Auto 7.6 % (2-11); Neutrophils Absolute Auto 5.9 x10*3/uL (2.0-8.3); Neutrophils Percent Auto 61.9 % (45-73); Platelet Count 258 X10*3/uL (160-400); Red Cell Distribution Width 14.2 % (11.0-16.0); White Blood Count 9.5 X10*3/uL (4.8-10.8)
[2024-10-16 06:49] LABS: Anion Gap 17 (12-20); Blood Urea Nitrogen 9 mg/dL (9-16); Calcium 8.5 mg/dL (8.4-10.2); Carbon Dioxide 19 mmol/L (22-29); Chloride 111 mmol/L (96-108); Creatinine Clr Calc Pharmacy 141.4; Estimated Glomerular Filt Rate > 60; Glucose Random 112 mg/dL (60-115); Magnesium 2.1 mg/dL (1.6-2.6); Phosphorus 2.8 mg/dL (2.7-4.5); Potassium 3.5 mmol/L (3.3-5.1); Sodium 143 mmol/L (135-145)
[2024-10-16 07:27] VITALS: BP 133/73; PULSE 76; RESP 16; TEMP 36.7; O2SAT 98
[2024-10-16 07:50] LABS: Glucose, Whole Blood 106 mg/dL (60-115)
[2024-10-16 08:31] LABS: Troponin-I High Sensitivity 8.4 ng/L (<3.5-35.0)
[2024-10-16] MEDS: Furosemide 20 MG TABLET PO (09:06)
[2024-10-16] MEDS: Insulin Glargine,Hum.rec.anlog 100 UNIT/ML 10 ML VIAL 25 UNIT SUBCUT (09:06)
[2024-10-16] MEDS: Losartan Potassium 25 MG TABLET PO (09:06)
[2024-10-16] MEDS: Metoprolol Succinate ER 25 MG TAB.ER.24H PO (09:06)
[2024-10-16] MEDS: Lidocaine 4 % Patch ADH..PATCH 1 PATCH TRANSDERMA (09:07)
[2024-10-16] MEDS: 0.9 % Sodium Chloride Flush 3 ML SYRINGE IVFLUSH ×2 (09:08→20:51)
[2024-10-16 11:17] VITALS: BP 122/58; PULSE 74; RESP 16; TEMP 36; O2SAT 98
[2024-10-16 11:32] LABS: Glucose, Whole Blood 117 mg/dL (60-115)
--- NOTE | 2024-10-16 11:41 | HO.PM.IMPN ---
Subjective Subjective Date of Service: 10/16/24 Interval History: c/o epigastric pain no further hematemesis Review of Systems Review of Systems: Yes all other systems are reviewed and are negative Physical Exam Vital Signs: Vital Signs: Last Vital Signs Temp 96.8 F 10/16/24 11:17 Pulse 74 10/16/24 11:17 Resp 16 10/16/24 11:17 BP 122/58 L 10/16/24 11:17 Pulse Ox 98 10/16/24 11:17 O2 Del Method Nasal Cannula 10/16/24 11:17 O2 Flow Rate 1.0 10/16/24 11:17 BMI result Body Mass Index 36.5 Gen: in no acute distress HEENT: sclera anicteric, moist mucus membranes Neck: supple Lungs: clear to auscultation bilaterally Heart: regular rate and rhythm, no murmurs Abd: soft, epigastric tenderness,non-distended Ext: no edema Skin: warm/well-perfused Neuro: alert and oriented x3, no focal findings Psych: appropriate affect Objective Data Active Medications Furosemide (Furosemide 20 Mg Tablet) 20 mg PO DAILY [facility]; Protocol Last Admin: 10/16/24 09:06 Dose: 20 mg Documented By: SOTO Gabapentin (Gabapentin 100 Mg Capsule) 100 mg PO TID PRN PRN Reason: Pain, Mild (Pain Scale 1-3) Last Admin: 10/15/24 23:59 Dose: 100 mg Documented By: YAMILETH Glucose (Glucose Gel 15 Gm Gel..Gram.) 15 gm PO Q15M PRN; Protocol PRN Reason: per Hypoglycemia Standing Ord. Hydralazine HCl (Hydralazine Hcl 20 Mg/Ml Vial) 5 mg IVPUSH Q6H PRN; Protocol PRN Reason: Hypertension Dextrose (D10) 250 mls @ 750 mls/hr IV Q15M PRN; Protocol PRN Reason: per Hypoglycemia Standing Ord. Insulin Glargine (Insulin Glargine,Hum.Rec.Anlog 100 Unit/Ml 10 Ml Vial) 25 unit SUBCUT BID [facility] Last Admin: 10/16/24 09:06 Dose: 25 unit Documented By: SOTO Insulin Human Lispro (Insulin Lispro 100 Unit/Ml 3 Ml Vial) 0 unit SUBCUT QIDACHS [facility]; Protocol Last Admin: 10/16/24 08:10 Dose: Not Given Documented By: SOTO Non-Admin Reason: No Insulin Coverage Lidocaine (Lidocaine 4 % Patch Adh..Patch) 1 patch TRANSDERMA DAILY [facility]; Protocol Last Admin: 10/16/24 09:07 Dose: 1 patch Documented By: SOTO Losartan Potassium (Losartan Potassium 25 Mg Tablet) 25 mg PO DAILY [facility]; Protocol Last Admin: 10/16/24 09:06 Dose: 25 mg Documented By: SOTO Metoprolol Succinate (Metoprolol Succinate Er 25 Mg Tab.Er.24h) 25 mg PO DAILY [facility]; Protocol Last Admin: 10/16/24 09:06 Dose: 25 mg Documented By: SOTO Ondansetron HCl (Ondansetron Hcl 4 Mg/2 Ml Vial) 4 mg IVPUSH Q4H PRN PRN Reason: Nausea and Vomiting Last Admin: 10/16/24 09:19 Dose: 4 mg Documented By: SOTO Oxycodone HCl (Oxycodone Hcl Immed Release 5 Mg Tablet) 10 mg PO Q4H PRN PRN Reason: Pain, Severe (Pain Scale 7-10) Last Admin: 10/16/24 10:42 Dose: 10 mg Documented By: SOTO Pantoprazole Sodium (Pantoprazole Sodium 40 Mg/10 Ml Vial) 40 mg IVPUSH BID@0630,1630 [facility] Last Admin: 10/16/24 05:00 Dose: 40 mg Documented By: YAMILETH Sodium Chloride (0.9 % Sodium Chloride Flush 3 Ml Syringe) 3 ml IVFLUSH QSHIFT [facility] Last Admin: 10/16/24 09:08 Dose: 3 ml Documented By: SOTO Labs 10/16/24 05:54 10/16/24 05:54 Labs: Laboratory Results - last 24 hr 10/15/24 10/15/24 10/15/24 12:03 14:19 15:55 MCV MCH MCHC RDW Plt Count MPV Immature Gran % (Auto) Neut % (Auto) Lymph % (Auto) [place] % (Auto) Eos % (Auto) Baso % (Auto) Lymph # (Auto) [place] # (Auto) Eos # (Auto) Baso # (Auto) Abs Immat Gran (auto) Absolute Neuts (auto) Absolute Nucleated RBC Nucleated RBC % (auto) VBG pH VBG pCO2 VBG pO2 VBG HCO3 VBG O2 Saturation VBG Base Excess Anion Gap Estim Creat Clear Calc Estimated GFR POC Glucose 93 124 H 147 H Random Glucose Calcium Phosphorus Magnesium Troponin I High Sens Beta-Hydroxybutyrate 10/15/24 10/15/24 10/15/24 18:03 18:44 18:51 MCV MCH MCHC RDW Plt Count MPV Immature Gran % (Auto) Neut % (Auto) Lymph % (Auto) [place] % (Auto) Eos % (Auto) Baso % (Auto) Lymph # (Auto) [place] # (Auto) Eos # (Auto) Baso # (Auto) Abs Immat Gran (auto) Absolute Neuts (auto) Absolute Nucleated RBC Nucleated RBC % (auto) VBG pH 7.48 H VBG pCO2 34 VBG pO2 103 VBG HCO3 26 VBG O2 Saturation 100.0 VBG Base Excess 2.9 Anion Gap 13 Estim Creat Clear Calc 127.4 Estimated GFR > 60 POC Glucose 190 H Random Glucose 182 H Calcium 8.4 Phosphorus Magnesium Troponin I High Sens 11.5 D Beta-Hydroxybutyrate 0.91 H 10/15/24 10/16/24 10/16/24 19:35 05:54 07:33 MCV 87.1 MCH 28.9 MCHC 33.2 RDW 14.2 Plt Count 258 MPV 9.8 Immature Gran % (Auto) 0.3 Neut % (Auto) 61.9 Lymph % (Auto) 28.0 [place] % (Auto) 7.6 Eos % (Auto) 1.6 Baso % (Auto) 0.6 Lymph # (Auto) 2.7 [place] # (Auto) 0.7 Eos # (Auto) 0.2 Baso # (Auto) 0.1 Abs Immat Gran (auto) 0.03 Absolute Neuts (auto) 5.9 Absolute Nucleated RBC 0.000 Nucleated RBC % (auto) 0.0 VBG pH VBG pCO2 VBG pO2 VBG HCO3 VBG O2 Saturation VBG Base Excess Anion Gap 17 Estim Creat Clear Calc 141.4 Estimated GFR > 60 POC Glucose 169 H 106 Random Glucose 112 Calcium 8.5 Phosphorus 2.8 Magnesium 2.1 Troponin I High Sens Beta-Hydroxybutyrate 10/16/24 10/16/24 07:53 11:22 MCV MCH MCHC RDW Plt Count MPV Immature Gran % (Auto) Neut % (Auto) Lymph % (Auto) [place] % (Auto) Eos % (Auto) Baso % (Auto) Lymph # (Auto) [place] # (Auto) Eos # (Auto) Baso # (Auto) Abs Immat Gran (auto) Absolute Neuts (auto) Absolute Nucleated RBC Nucleated RBC % (auto) VBG pH VBG pCO2 VBG pO2 VBG HCO3 VBG O2 Saturation VBG Base Excess Anion Gap Estim Creat Clear Calc Estimated GFR POC Glucose 117 H Random Glucose Calcium Phosphorus Magnesium Troponin I High Sens 8.4 Beta-Hydroxybutyrate Microbiology Microbiology Results: Microbiology 10/13/24 16:36 Blood Culture - Preliminary Blood - Venous No growth after 48 hours. 10/13/24 16:33 Blood Culture - Preliminary Blood - Venous No growth after 48 hours. Assessment and Plan (1) DKA (diabetic ketoacidosis): Status: Acute Plan d3 for 63yo M with DM2 on insulin, CAD s/p 4V CABG [2018], pAF on rivaroxaban, PAD with hx osteomyelitis + amputation of L great toe, HTN, CHF presenting with 2d of abd pain with N/V/diarrhea, coffee-ground emesis/melena found to have euglycemic DKA to ICU 10/14, stepped down to M/S 10/15 euglycemic DKA DM2 - likely due to dapagliflozin; off insulin drip; continue basal-bolus insulin hematemesis/melena - suspect Iris-Aggarwal, GI consulted, continue PPI BID, hold rivaroxaban PAD CAD HTN CHF not in acute exac - metoprolol succinate, losartan, furosemide, Imdur, ezetimibe, statin - hold ASA chronic pain - gabapentin, oxycodone VTE ppx - SCDs, hold heparin due to hematemesis/melena dispo - eventual home In my clinical judgment, the patient requires continued inpatient hospitalization for the following reasons: pain control Total time managing care of this patient today: 40 minutes. Quality Stroke Does the patient have a stroke diagnosis?: No VTE Prior VTE?: No VTE Risk Level:: Medical - moderate - high VTE Device Contraindication: N/A - Device Ordered VTE Drug Contraindication: Treatment Not Tolerated
[2024-10-16] MEDS: Isosorbide Mononitrate 30 MG TAB.ER.24H PO (12:29)
[2024-10-16] MEDS: Venlafaxine HCL 25 MG TABLET 100 MG PO ×2 (12:29→20:51)
[2024-10-16 15:41] VITALS: BP 98/56; PULSE 82; RESP 16; TEMP 37.2; O2SAT 100
[2024-10-16 16:42] LABS: Glucose, Whole Blood 85 mg/dL (60-115)
[2024-10-16] MEDS: Gabapentin 300 MG CAPSULE PO ×2 (16:46→20:51)
[2024-10-16 20:00] VITALS: BP 124/68; PULSE 88; RESP 18; TEMP 36.3; O2SAT 96
[2024-10-16 20:39] LABS: Glucose, Whole Blood 103 mg/dL (60-115)
[2024-10-16] MEDS: Atorvastatin Calcium 80 MG TABLET PO (20:51)
[2024-10-17] VITALS (9 sets, daily range): BP systolic 106–128; BP diastolic 55–65; PULSE 63–72; RESP 16–18; TEMP 35.8–36.8; O2SAT 92–99
[2024-10-17] MEDS: oxyCODONE HCl Immed Release 5 MG TABLET 10 MG PO ×6 (02:34→22:50)
[2024-10-17] MEDS: ondansetron HCL 4 MG/2 ML VIAL IVPUSH ×2 (02:34→06:32)
[2024-10-17] MEDS: Pantoprazole Sodium 40 MG/10 ML VIAL IVPUSH (05:34)
[2024-10-17 06:24] LABS: MANUAL DIFF FLAG NO
[2024-10-17 06:27] LABS: Basophils Absolute Auto 0.1 X10*3/uL (0.0-0.2); Basophils Percent Auto 0.6 % (0-2); Eosinophils Absolute Auto 0.2 X10*3/uL (0.0-0.4); Eosinophils Percent Auto 1.7 % (0-4); Hematocrit 37.4 % (42.0-52.0); Hemoglobin 12.6 g/dl (14.0-18.0); Imm Gran Abs Auto 0.02 X10*3/uL (0.00-0.03); Imm Gran Pct Auto 0.2 % (0.0-0.4); Lymphocytes Absolute Auto 3.2 X10*3/uL (1.2-4.9); Lymphocytes Percent Auto 33.7 % (20-40); Mean Corpuscular HGB Conc 33.7 g/dl (31.0-36.0); Mean Corpuscular Hemoglobin 28.7 pg (27.0-33.0); Mean Corpuscular Volume 85.2 fL (80.0-98.0); Mean Platelet Volume 9.7 fL (9.4-12.4); Monocytes Absolute Auto 0.8 X10*3/uL (0.1-1.2); Monocytes Percent Auto 8.9 % (2-11); Neutrophils Absolute Auto 5.2 x10*3/uL (2.0-8.3); Neutrophils Percent Auto 54.9 % (45-73); Platelet Count 242 X10*3/uL (160-400); Red Blood Count 4.39 X10*6/uL (4.60-5.80); Red Cell Distribution Width 13.5 % (11.0-16.0); White Blood Count 9.4 X10*3/uL (4.8-10.8)
[2024-10-17 06:41] LABS: Anion Gap 11 (12-20); Blood Urea Nitrogen 9 mg/dL (9-16); Calcium 8.1 mg/dL (8.4-10.2); Carbon Dioxide 26 mmol/L (22-29); Chloride 105 mmol/L (96-108); Creatinine Clr Calc Pharmacy 137.1; Estimated Glomerular Filt Rate > 60; Glucose Random 104 mg/dL (60-115); Phosphorus 3.1 mg/dL (2.7-4.5); Potassium 3.2 mmol/L (3.3-5.1); Sodium 139 mmol/L (135-145)
[2024-10-17 07:44] LABS: Glucose, Whole Blood 96 mg/dL (60-115)
[2024-10-17] MEDS: 0.9 % Sodium Chloride Flush 3 ML SYRINGE IVFLUSH (08:44)
[2024-10-17] MEDS: Potassium Chloride Packet 20 MEQ PACKET 40 MEQ PO (08:45)
[2024-10-17] MEDS: Gabapentin 300 MG CAPSULE PO ×3 (08:46→21:08)
[2024-10-17] MEDS: Metoprolol Succinate ER 25 MG TAB.ER.24H PO (08:46)
[2024-10-17] MEDS: Venlafaxine HCL 25 MG TABLET 100 MG PO ×2 (08:46→21:08)
[2024-10-17] MEDS: Ezetimibe 10 MG TABLET PO (08:47)
[2024-10-17] MEDS: Losartan Potassium 25 MG TABLET PO (08:47)
[2024-10-17] MEDS: Lidocaine 4 % Patch ADH..PATCH 1 PATCH TRANSDERMA (08:47)
[2024-10-17] MEDS: Insulin Glargine,Hum.rec.anlog 100 UNIT/ML 10 ML VIAL 25 UNIT SUBCUT ×2 (08:48→21:10)
--- NOTE | 2024-10-17 09:46 | PC.NURSE ---
Unable to place IV, Primary RN notified, notified, okay to not have new IV. Possible d/c home later today.
[2024-10-17 10:30] LABS: Alanine Aminotransferase 16 U/L (0-40); Albumin Level 3.3 g/dL (3.5-5.0); Alkaline Phosphatase 58 U/L (39-117); Aspartate Amino Transferase 26 U/L (5-37); Bilirubin Direct 0.2 mg/dL (0.0-0.5); Bilirubin Total 0.6 mg/dL (0.0-1.0); C Reactive Protein 0.19 mg/dL (< or = 0.50); Total Protein 5.7 g/dL (6.5-8.0)
[2024-10-17] MEDS: Ondansetron ODT 4 MG TAB.RAPDIS TRANSLINGU ×2 (10:34→18:14)
[2024-10-17 11:42] LABS: Glucose, Whole Blood 120 mg/dL (60-115)
--- NOTE | 2024-10-17 12:11 | HO.PM.IMPN ---
Subjective Subjective Date of Service: 10/17/24 Interval History: c/o nausea/vomiting/abd pain Review of Systems Review of Systems: Yes all other systems are reviewed and are negative Physical Exam Vital Signs: Vital Signs: Last Vital Signs Temp 96.8 F 10/17/24 11:50 Pulse 70 10/17/24 11:50 Resp 16 10/17/24 11:50 BP 127/63 10/17/24 11:50 Pulse Ox 99 10/17/24 11:50 O2 Del Method Room Air 10/17/24 11:50 O2 Flow Rate 1.0 10/16/24 15:41 BMI result Body Mass Index 36.5 Gen: in no acute distress HEENT: sclera anicteric, moist mucus membranes Neck: supple Lungs: clear to auscultation bilaterally Heart: regular rate and rhythm, no murmurs Abd: soft, epigastric tenderness without rebound,non-distended Ext: no edema Skin: warm/well-perfused Neuro: alert and oriented x3, no focal findings Psych: appropriate affect Objective Data Active Medications Atorvastatin Calcium (Atorvastatin Calcium 80 Mg Tablet) 80 mg PO BEDTIME [facility] Last Admin: 10/16/24 20:51 Dose: 80 mg Documented By: YAMILETH Ezetimibe (Ezetimibe 10 Mg Tablet) 10 mg PO DAILY [facility] Last Admin: 10/17/24 08:47 Dose: 10 mg Documented By: KATIA Furosemide (Furosemide 20 Mg Tablet) 20 mg PO DAILY [facility]; Protocol Last Admin: 10/17/24 07:54 Dose: Not Given Documented By: KATIA Non-Admin Reason: MD joel, low BP Gabapentin (Gabapentin 300 Mg Capsule) 300 mg PO TID [facility] Last Admin: 10/17/24 08:46 Dose: 300 mg Documented By: KATIA Glucose (Glucose Gel 15 Gm Gel..Gram.) 15 gm PO Q15M PRN; Protocol PRN Reason: per Hypoglycemia Standing Ord. Hydralazine HCl (Hydralazine Hcl 20 Mg/Ml Vial) 5 mg IVPUSH Q6H PRN; Protocol PRN Reason: Hypertension Dextrose (D10) 250 mls @ 750 mls/hr IV Q15M PRN; Protocol PRN Reason: per Hypoglycemia Standing Ord. Insulin Glargine (Insulin Glargine,Hum.Rec.Anlog 100 Unit/Ml 10 Ml Vial) 25 unit SUBCUT BID [facility] Last Admin: 10/17/24 08:48 Dose: 25 unit Documented By: KATIA Insulin Human Lispro (Insulin Lispro 100 Unit/Ml 3 Ml Vial) 0 unit SUBCUT QIDACHS [facility]; Protocol Last Admin: 10/17/24 11:42 Dose: Not Given Documented By: KATIA Non-Admin Reason: No Insulin Coverage Isosorbide Mononitrate (Isosorbide Mononitrate 30 Mg Tab.Er.24h) 30 mg PO DAILY [facility]; Protocol Last Admin: 10/17/24 07:54 Dose: Not Given Documented By: KATIA Non-Admin Reason: held, low BP Lidocaine (Lidocaine 4 % Patch Adh..Patch) 1 patch TRANSDERMA DAILY [facility]; Protocol Last Admin: 10/17/24 08:47 Dose: 1 patch Documented By: KATIA Losartan Potassium (Losartan Potassium 25 Mg Tablet) 25 mg PO DAILY [facility]; Protocol Last Admin: 10/17/24 08:47 Dose: 25 mg Documented By: KATIA Metoprolol Succinate (Metoprolol Succinate Er 25 Mg Tab.Er.24h) 25 mg PO DAILY [facility]; Protocol Last Admin: 10/17/24 08:46 Dose: 25 mg Documented By: KATIA Ondansetron HCl (Ondansetron Hcl 4 Mg/2 Ml Vial) 4 mg IVPUSH Q4H PRN PRN Reason: Nausea and Vomiting Last Admin: 10/17/24 06:32 Dose: 4 mg Documented By: KARLI Ondansetron HCl (Ondansetron Odt 4 Mg Tab.Rapdis) 4 mg TRANSLINGU Q6H PRN PRN Reason: Nausea and Vomiting Last Admin: 10/17/24 10:34 Dose: 4 mg Documented By: AGUILA Oxycodone HCl (Oxycodone Hcl Immed Release 5 Mg Tablet) 10 mg PO Q4H PRN PRN Reason: Pain, Severe (Pain Scale 7-10) Last Admin: 10/17/24 10:33 Dose: 10 mg Documented By: AGUILA Pantoprazole Sodium (Pantoprazole Sodium 40 Mg/10 Ml Vial) 40 mg IVPUSH BID@0630,1630 [facility] Last Admin: 10/17/24 05:34 Dose: 40 mg Documented By: YAMILETH Sodium Chloride (0.9 % Sodium Chloride Flush 3 Ml Syringe) 3 ml IVFLUSH QSHIFT [facility] Last Admin: 10/17/24 08:44 Dose: 3 ml Documented By: KATIA Venlafaxine HCl (Venlafaxine Hcl 25 Mg Tablet) 100 mg PO BID [facility] Last Admin: 10/17/24 08:46 Dose: 100 mg Documented By: KATIA Labs 10/17/24 06:14 10/17/24 06:14 Labs: Laboratory Results - last 24 hr 10/16/24 10/16/24 10/17/24 16:35 20:33 06:14 MCV 85.2 MCH 28.7 MCHC 33.7 RDW 13.5 Plt Count 242 MPV 9.7 Immature Gran % (Auto) 0.2 Neut % (Auto) 54.9 Lymph % (Auto) 33.7 [place] % (Auto) 8.9 Eos % (Auto) 1.7 Baso % (Auto) 0.6 Lymph # (Auto) 3.2 [place] # (Auto) 0.8 Eos # (Auto) 0.2 Baso # (Auto) 0.1 Abs Immat Gran (auto) 0.02 Absolute Neuts (auto) 5.2 Absolute Nucleated RBC 0.000 Nucleated RBC % (auto) 0.0 Anion Gap 11 L Estim Creat Clear Calc 137.1 Estimated GFR > 60 POC Glucose 85 103 Random Glucose 104 Calcium 8.1 L Phosphorus 3.1 Magnesium 2.0 Total Bilirubin 0.6 Direct Bilirubin 0.2 AST 26 ALT 16 Alkaline Phosphatase 58 C-Reactive Protein 0.19 Total Protein 5.7 L Albumin 3.3 L 10/17/24 10/17/24 07:39 11:37 MCV MCH MCHC RDW Plt Count MPV Immature Gran % (Auto) Neut % (Auto) Lymph % (Auto) [place] % (Auto) Eos % (Auto) Baso % (Auto) Lymph # (Auto) [place] # (Auto) Eos # (Auto) Baso # (Auto) Abs Immat Gran (auto) Absolute Neuts (auto) Absolute Nucleated RBC Nucleated RBC % (auto) Anion Gap Estim Creat Clear Calc Estimated GFR POC Glucose 96 120 H Random Glucose Calcium Phosphorus Magnesium Total Bilirubin Direct Bilirubin AST ALT Alkaline Phosphatase C-Reactive Protein Total Protein Albumin Assessment and Plan (1) DKA (diabetic ketoacidosis): Status: Acute Plan d4 for 63yo M with DM2 on insulin, CAD s/p 4V CABG [2018], pAF on rivaroxaban, PAD with hx osteomyelitis + amputation of L great toe, HTN, CHF presenting with 2d of abd pain with N/V/diarrhea, coffee-ground emesis/melena found to have euglycemic DKA to ICU 10/14, stepped down to M/S 10/15 abd pain - suspect due to DKA but if fails to improve consider gastric emptying study euglycemic DKA DM2 - likely due to dapagliflozin; off insulin drip; continue basal-bolus insulin hematemesis/melena - suspect Iris-Aggarwal, GI consulted, continue PPI BID, hold rivaroxaban PAD CAD HTN CHF not in acute exac - metoprolol succinate, losartan, furosemide, Imdur, ezetimibe, statin - hold ASA chronic pain - gabapentin, oxycodone VTE ppx - SCDs, hold heparin due to hematemesis/melena dispo - eventual home In my clinical judgment, the patient requires continued inpatient hospitalization for the following reasons: persistent N/V Total time managing care of this patient today: 40 minutes. Quality Stroke Does the patient have a stroke diagnosis?: No VTE Prior VTE?: No VTE Risk Level:: Medical - moderate - high VTE Device Contraindication: N/A - Device Ordered VTE Drug Contraindication: Treatment Not Tolerated
[2024-10-17 12:30] LABS: Estimated Average Glucose 209 mg/dL; Hemoglobin A1c % 8.9 % (<6.0); Total Hemoglobin (HGBA1C) 3171.3114 umol/L
[2024-10-17 16:49] LABS: Glucose, Whole Blood 168 mg/dL (60-115)
[2024-10-17] MEDS: Omeprazole 20 MG CAPSULE.DR PO (17:04)
[2024-10-17] MEDS: Insulin Lispro 100 UNIT/ML 3 ML VIAL SUBCUT (17:05)
[2024-10-17 20:02] LABS: Glucose, Whole Blood 133 mg/dL (60-115)
[2024-10-17] MEDS: Atorvastatin Calcium 80 MG TABLET PO (21:08)
[2024-10-18] MEDS: oxyCODONE HCl Immed Release 5 MG TABLET 10 MG PO ×2 (02:59→08:01)
[2024-10-18 03:08] VITALS: BP 124/69; PULSE 60; RESP 18; TEMP 36.1; O2SAT 96
[2024-10-18] MEDS: Omeprazole 20 MG CAPSULE.DR PO (05:44)
[2024-10-18 06:12] LABS: MANUAL DIFF FLAG NO
[2024-10-18 06:16] LABS: Basophils Absolute Auto 0.1 X10*3/uL (0.0-0.2); Basophils Percent Auto 0.6 % (0-2); Eosinophils Absolute Auto 0.1 X10*3/uL (0.0-0.4); Eosinophils Percent Auto 1.8 % (0-4); Hematocrit 39.1 % (42.0-52.0); Hemoglobin 13.1 g/dl (14.0-18.0); Imm Gran Abs Auto 0.02 X10*3/uL (0.00-0.03); Imm Gran Pct Auto 0.3 % (0.0-0.4); Lymphocytes Percent Auto 37.4 % (20-40); Mean Corpuscular HGB Conc 33.5 g/dl (31.0-36.0); Mean Corpuscular Hemoglobin 28.7 pg (27.0-33.0); Mean Corpuscular Volume 85.7 fL (80.0-98.0); Monocytes Absolute Auto 0.7 X10*3/uL (0.1-1.2); Monocytes Percent Auto 9.2 % (2-11); Neutrophils Percent Auto 50.7 % (45-73); Platelet Count 179 X10*3/uL (160-400); Red Blood Count 4.56 X10*6/uL (4.60-5.80); Red Cell Distribution Width 13.4 % (11.0-16.0)
[2024-10-18 06:31] LABS: Anion Gap 12 (12-20); Blood Urea Nitrogen 10 mg/dL (9-16); Calcium 8.5 mg/dL (8.4-10.2); Carbon Dioxide 25 mmol/L (22-29); Chloride 107 mmol/L (96-108); Creatinine Clr Calc Pharmacy 110.3; Estimated Glomerular Filt Rate > 60; Glucose Random 120 mg/dL (60-115); Magnesium 1.9 mg/dL (1.6-2.6); Phosphorus 3.3 mg/dL (2.7-4.5); Potassium 3.5 mmol/L (3.3-5.1); Sodium 140 mmol/L (135-145)
[2024-10-18 07:03] VITALS: BP 127/70; PULSE 75; RESP 16; TEMP 36.3; O2SAT 96
[2024-10-18 07:46] LABS: Glucose, Whole Blood 100 mg/dL (60-115)
[2024-10-18] MEDS: Lidocaine 4 % Patch ADH..PATCH 1 PATCH TRANSDERMA (08:02)
[2024-10-18] MEDS: Insulin Glargine,Hum.rec.anlog 100 UNIT/ML 10 ML VIAL 25 UNIT SUBCUT (08:05)
[2024-10-18] MEDS: Ezetimibe 10 MG TABLET PO (08:08)
[2024-10-18] MEDS: Venlafaxine HCL 25 MG TABLET 100 MG PO (08:08)
[2024-10-18 08:09] VITALS: BP 114/62
[2024-10-18] MEDS: Gabapentin 300 MG CAPSULE PO (08:09)
[2024-10-18] MEDS: Furosemide 20 MG TABLET PO (08:09)
[2024-10-18 08:11] VITALS: BP 114/62; BP 114/63; PULSE 73
[2024-10-18] MEDS: Losartan Potassium 25 MG TABLET PO (08:11)
[2024-10-18] MEDS: Metoprolol Succinate ER 25 MG TAB.ER.24H PO (08:11)
[2024-10-18 08:12] VITALS: BP 114/62
[2024-10-18] MEDS: Isosorbide Mononitrate 30 MG TAB.ER.24H PO (08:12)
--- NOTE | 2024-10-18 09:25 | PM.DS ---
DS: Providers Provider Date of Service: 10/18/24 Date of admission: 10/14/24 01:07 Date of discharge: 10/18/24 Primary care physician: Marley Rick MD Consults: 10/14/24 01:12 Consult to Gastroenterology Routine Consulting Provider: Tracie Escamilla Reason for consultation: CGE, melena Has provider been notified: No DS: Diagnosis Discharge Diagnosis (1) DKA (diabetic ketoacidosis): Status: Acute (2) Intractable nausea and vomiting: Status: Acute (3) Coffee ground emesis: Status: Acute (4) Abdominal pain, acute, epigastric: Status: Acute DS: Summary Hospital Course Hospital Course: From the history and physical by the admitting hospitalist, PERRY Charles, 10/14/24: Patient is a 63-year-old male with a past medical history significant for type 2 diabetes on insulin, CAD s/p 4VCABG in 2018, paroxysmal AFib on Xarelto, PID with history of osteomyelitis and amputation left great toe, HTN, mild intermittent asthma, CHF, who presented to the ED with 2 days of upper abdominal pain mostly in the epigastric region with associated nausea, vomiting and diarrhea he reports episodes of coffee-ground emesis as well as melena. He denies any sick contacts or recent antibiotic use. Describes an intense epigastric pain with generalized abdominal dull tenderness. He reports that he has been taking his medications as prescribed and takes Lantus 60 units in the morning and at bedtime. He takes Farxiga for congestive heart failure. His nausea is still very persistent despite Zofran as well as his abdominal pain is still significant with multiple doses of Dilaudid. 63yo M with DM2 on insulin, CAD s/p 4V CABG [2018], pAF on rivaroxaban, PAD with hx osteomyelitis + amputation of L great toe, HTN, and CHF; presenting with 2d of abd pain with N/V/diarrhea, and coffee-ground emesis/melena; ultimately found to have euglycemic DKA and transferred to the ICU for insulin drip 10/14. He was stepped down to M/S 10/15. He had persistent abdominal pain that was ultimately attributed to the DKA and resolved. The euglycemic DKA was attributed to dapagliflozin [Farxiga] and he was advised to stop this medications and avoid all SGLT-2 inhibitors/ flozins . Hematemesis/melena was likely due to Iris-Aggarwal tear and resolved as the nausea and vomiting came under control. Hemoglobin remained stable around 13. He was discharged home with instructions to follow up in 1 week with his primary care doctor. Time Attestation Discharge Coordination Time (in mins): 35 Quality: Safe Use of Opioids Does Pt have an Active Cancer Diagnosis on the Problem List?: No Quality: Stroke Does the patient have a stroke diagnosis?: No Physical Exam Vital Signs: Vital Signs: Last Vital Signs Temp 97.3 F 10/18/24 07:03 Pulse 73 10/18/24 08:11 Resp 16 10/18/24 07:03 BP 114/62 10/18/24 08:12 Pulse Ox 96 10/18/24 07:03 O2 Del Method Room Air 10/18/24 07:03 O2 Flow Rate 98 10/17/24 19:51 BMI result Body Mass Index 36.5 Gen: in no acute distress HEENT: sclera anicteric, moist mucus membranes Neck: supple Lungs: clear to auscultation bilaterally Heart: regular rate and rhythm, no murmurs Abd: soft, non-tender, non-distended Ext: no edema Skin: warm/well-perfused Neuro: alert and oriented x3, no focal findings Psych: appropriate affect DS: Data Data Completed and Pending Completed studies during hospitalization [Text1]: Laboratory Results WBC 8.0 X10*3/uL (4.8-10.8) 10/18/24 05:35 RBC 4.56 X10*6/uL (4.60-5.80) L 10/18/24 05:35 Hgb 13.1 g/dl (14.0-18.0) L 10/18/24 05:35 Hct 39.1 % (42.0-52.0) L 10/18/24 05:35 MCV 85.7 fL (80.0-98.0) 10/18/24 05:35 MCH 28.7 pg (27.0-33.0) 10/18/24 05:35 MCHC 33.5 g/dl (31.0-36.0) 10/18/24 05:35 RDW 13.4 % (11.0-16.0) 10/18/24 05:35 Plt Count 179 X10*3/uL (160-400) D 10/18/24 05:35 MPV 11.0 fL (9.4-12.4) 10/18/24 05:35 Immature Gran % (Auto) 0.3 % (0.0-0.4) 10/18/24 05:35 Neut % (Auto) 50.7 % (45-73) 10/18/24 05:35 Lymph % (Auto) 37.4 % (20-40) 10/18/24 05:35 [place] % (Auto) 9.2 % (2-11) 10/18/24 05:35 Eos % (Auto) 1.8 % (0-4) 10/18/24 05:35 Baso % (Auto) 0.6 % (0-2) 10/18/24 05:35 Lymph # (Auto) 3.0 X10*3/uL (1.2-4.9) 10/18/24 05:35 [place] # (Auto) 0.7 X10*3/uL (0.1-1.2) 10/18/24 05:35 Eos # (Auto) 0.1 X10*3/uL (0.0-0.4) 10/18/24 05:35 Baso # (Auto) 0.1 X10*3/uL (0.0-0.2) 10/18/24 05:35 Abs Immat Gran (auto) 0.02 X10*3/uL (0.00-0.03) 10/18/24 05:35 Absolute Neuts (auto) 4.0 x10*3/uL (2.0-8.3) 10/18/24 05:35 Absolute Nucleated RBC 0.000 X10*3/uL (0.0-0.012) 10/18/24 05:35 Nucleated RBC % (auto) 0.0 /100WBC (0.0-0.2) 10/18/24 05:35 Smear Tech's Comments VERIFIED 10/14/24 05:41 VBG pH 7.48 (7.32-7.43) H 10/15/24 18:51 VBG pCO2 34 mmHg 10/15/24 18:51 VBG pO2 103 mmHg 10/15/24 18:51 VBG HCO3 26 mmol/L (22-26) 10/15/24 18:51 VBG O2 Saturation 100.0 % 10/15/24 18:51 VBG Base Excess 2.9 mmol/L 10/15/24 18:51 Sodium 140 mmol/L (135-145) 10/18/24 05:35 Potassium 3.5 mmol/L (3.3-5.1) 10/18/24 05:35 Chloride 107 mmol/L (96-108) 10/18/24 05:35 Carbon Dioxide 25 mmol/L (22-29) 10/18/24 05:35 Anion Gap 12 (-20) 10/18/24 05:35 BUN 10 mg/dL (9-16) 10/18/24 05:35 Creatinine 0.82 mg/dL (0.5-1.4) 10/18/24 05:35 Estim Creat Clear Calc 110.3 10/18/24 05:35 Estimated GFR > 60 10/18/24 05:35 POC Glucose 100 mg/dL (60-115) 10/18/24 07:39 Random Glucose 120 mg/dL (60-115) H 10/18/24 05:35 Estimat Average Glucose 209 mg/dL 10/17/24 06:14 Hemoglobin A1c % 8.9 % (<6.0) H 10/17/24 06:14 Lactic Acid 3.8 mmol/L (0.5-2.0) H* 10/13/24 16:33 Lactic Acid F/U @ 2Hr 2.4 mmol/L (0.5-2.0) H* 10/13/24 18:54 Lactic Acid F/U @ 4Hr 1.7 mmol/L (0.5-2.0) 10/13/24 21:41 Calcium 8.5 mg/dL (8.4-10.2) 10/18/24 05:35 Phosphorus 3.3 mg/dL (2.7-4.5) 10/18/24 05:35 Magnesium 1.9 mg/dL (1.6-2.6) 10/18/24 05:35 Total Bilirubin 0.6 mg/dL (0.0-1.0) 10/17/24 06:14 Direct Bilirubin 0.2 mg/dL (0.0-0.5) 10/17/24 06:14 AST 26 U/L (5-37) 10/17/24 06:14 ALT 16 U/L (0-40) 10/17/24 06:14 Alkaline Phosphatase 58 U/L (39-117) 10/17/24 06:14 Troponin I High Sens 8.4 ng/L (<3.5-35.0) 10/16/24 07:53 C-Reactive Protein 0.19 mg/dL (< or = 0.50) 10/17/24 06:14 Total Protein 5.7 g/dL (6.5-8.0) L 10/17/24 06:14 Albumin 3.3 g/dL (3.5-5.0) L 10/17/24 06:14 Lipase 5 U/L (8-78) L 10/13/24 16:33 Beta-Hydroxybutyrate 0.91 mmol/L (0.02-0.27) H 10/15/24 18:44 Urine Color Yellow 10/13/24 18:54 Urine Appearance Clear 10/13/24 18:54 Urine pH 5.5 (5.0-9.0) 10/13/24 18:54 Ur Specific [place] >= 1.030 (1.005-1.025) H 10/13/24 18:54 Urine Protein 100 (2+) mg/dL (Neg-Trace) H 10/13/24 18:54 Urine Glucose (UA) >=1000 mg/dL (Negative) H 10/13/24 18:54 Urine Ketones >=160 mg/dL (Negative) 10/13/24 18:54 Urine Blood Trace (Negative) H 10/13/24 18:54 Urine Nitrite Negative (Negative) 10/13/24 18:54 Ur Leukocyte Esterase Negative (Negative) 10/13/24 18:54 Urine RBC 0-2 /HPF (0-2) 10/13/24 18:54 Urine WBC 0-5 /HPF (0-5) 10/13/24 18:54 Ur Squamous Epith Cells 0-2 /HPF (0-2) 10/13/24 18:54 Urine Bacteria None Seen (None Seen) 10/13/24 18:54 Hyaline Casts 0-2 /LPF (0-2) 12/18/24 18:54 Influenza Type A (PCR) NEGATIVE (Negative) 10/13/24 16:33 Influenza Type B (PCR) NEGATIVE (Negative) 10/13/24 16:33 RSV RNA Qual (PCR) NEGATIVE (Negative) 10/13/24 16:33 SARS-CoV-2 RNA (RT-PCR) NEGATIVE (Negative) 10/13/24 16:33 Blood Type O Positive 10/14/24 12:04 Antibody Screen NEGATIVE 10/14/24 12:04 Impressions Chest X-Ray 10/13/24 16:08 IMPRESSION: No confluent airspace disease. Electronically signed by: Justin Benavidez MD 10/13/2024 06:17 PM EST RP Abdomen/Pelvis CT 10/13/24 17:13 IMPRESSION: * No acute intra-abdominal abnormality. * Hepatic steatosis. Electronically signed by: Shey Healy MD 10/13/2024 07:57 PM EST RP Labs on day of discharge: Discharge Plan Discharge Anticipated Discharge Date/Time: 10/18/24 09:22 Patient Disposition: Home, Self-Care Discharge Diagnosis: euglycemic DKA due to Farxiga Referrals: Marley Rick MD [Primary Care Provider] - 1 Week Discharge Medications: New ondansetron 4 mg Tablet,Disintegrating 4 mg translingual Q6H PRN (Reason: Nausea And Vomiting) Qty: 30 0RF Continued (DME) walker Misc See Rx Instructions .Route Qty: 1 0RF Rx Instructions: As directed (DME) Aircast off loading boot Kit See Rx Instructions .Route Qty: 1 0RF Rx Instructions: As directed (DME) elastic bandage 6 X 1.8 -yard bandage See Rx Instructions .Route Qty: 6 0RF Rx Instructions: As directed (DME) gauze bandage [Band-Aid Gauze Pads] 4 X 4 bandage See Rx Instructions .Route Qty: 25 3RF Rx Instructions: As directed (DME) sterile gauze 4x4 See Rx Instructions .Route .MEDSUPPLY Qty: 40 3RF Rx Instructions: Apply to left foot wound every other day (DME) calcium alginate ag 4x4 pad See Rx Instructions .Route .MEDSUPPLY Qty: 5 2RF Rx Instructions: Apply to wound beds every other day insulin glargine [Lantus U-100 Insulin] 100 unit/mL solution 60 unit subcut BID Rx Instructions: 50 units at lunch and 100 units at bedtime isosorbide mononitrate 30 mg tablet extended release 24 hr 1 tab PO DAILY pantoprazole 40 mg tablet,delayed release (DR/EC) 1 tab PO BID@0630,1630 losartan 25 mg tablet 1 tab PO DAILY gabapentin 300 mg capsule 1 cap PO TID loratadine 10 mg tablet 1 tab PO DAILY ezetimibe 10 mg tablet 1 tab PO DAILY rosuvastatin 40 mg tablet 1 tab PO BEDTIME meclizine 25 mg tablet 1 tab PO TID (DME) walker Misc See Rx Instructions .Route Qty: 1 0RF Rx Instructions: As directed aspirin 81 mg tablet,delayed release (DR/EC) 1 tab PO DAILY venlafaxine 100 mg tablet 1 tab PO BID furosemide 20 mg tablet 1 tab PO BID oxycodone 5 mg tablet 10 mg PO Q4H Qty: 15 0RF metoprolol succinate 25 mg tablet extended release 24 hr 25 mg PO DAILY Discontinued dapagliflozin propanediol [Farxiga] 10 mg tablet 10 mg PO DAILY Discharge Orders: Discharge Order (Routine); Ordered 10/18/24 Ordered By: Cezar Esposito Stand Alone Forms: Patient Portal Discharge page Print Language: Citizen Of [place] Care Plan Goals: control of diabetes Health Concerns: euglycemic DKA due to Farxiga Plan of Treatment: stop Farxiga and avoid all medications in this class [SGLT-2 inhibitors, or flozins ] ondansetron as needed for nausea/vomiting Please follow up with your primary care doctor within 1 week. Return to the hospital if you experience recurrent or worsening symptoms. Assessment: See Discharge Summary.
--- NOTE | 2024-10-18 09:46 | MHC.CM.PN ---
pt dcd home self care
[2024-10-18 10:53] LABS: Glucose, Whole Blood 120 mg/dL (60-115)
[2024-10-18] MEDS: Ondansetron ODT 4 MG TAB.RAPDIS TRANSLINGU (11:33)
== END 2024-10-18 11:54 | disposition home or self-care (01) | DRG 420 ==
LOC: HO.ED 10-14 00:06 → HO.EDOVER 10-14 01:24 → HO.S3 10-14 07:38 → HO.ICU 10-14 10:23 → HO.S3 10-15 12:52
PROVIDERS: Internal Medicine Critical Care Medicine; Physician Assistant Medical; Student in an Organized Health Care Education/Training Program; Admitting Provider Physician Assistant; Emergency Provider Emergency Medicine; PCP Internal Medicine; Visit Provider Family Medicine
DX: E11.10 Type 2 diabetes mellitus with ketoacidosis without coma (principal); E87.0 Hyperosmolality and hypernatremia; K92.0 Hematemesis; I50.9 Heart failure, unspecified; K92.1 Melena; I11.0 Hypertensive heart disease with heart failure; T38.3X5A Adverse effect of insulin and oral hypoglycemic [antidiabetic] drugs, initial encounter; J45.20 Mild intermittent asthma, uncomplicated; I25.10 Atherosclerotic heart disease of native coronary artery without angina pectoris; I48.0 Paroxysmal atrial fibrillation; G89.29 Other chronic pain; Z95.1 Presence of aortocoronary bypass graft; E11.51 Type 2 diabetes mellitus with diabetic peripheral angiopathy without gangrene; Z20.822 Contact with and (suspected) exposure to COVID-19; Z87.891 Personal history of nicotine dependence; Z79.4 Long term (current) use of insulin; Z79.01 Long term (current) use of anticoagulants; Z79.899 Other long term (current) drug therapy
CPT/HCPCS: 0241U; 36415; 71045; 74177; 80048; 80076; 81001; 81003; 82010; 82803; 82947; 83036; 83605; 83690; 83735; 84100; 84484; 85025; 86140; 86850; 86900; 86901; 87040; 93005; 99285; J0131; J0696; J1171; J2405; J2470; J2765; J7120; Q9967

== ENCOUNTER → 2024-10-13 16:02 | Outpatient (BNV) | payer OTHER, SELFPAY | PROVIDERS: Admitting Provider Physician Assistant; Emergency Provider Emergency Medicine; Visit Provider Internal Medicine | DX: R00.0 Tachycardia, unspecified (principal) | CPT/HCPCS: 93010 ==

== ENCOUNTER → 2024-10-13 16:40 | Outpatient (BNV) | payer OTHER, SELFPAY | PROVIDERS: Emergency Provider Emergency Medicine; Visit Provider Physician Assistant | DX: E11.10 Type 2 diabetes mellitus with ketoacidosis without coma (principal); K92.0 Hematemesis; R10.13 Epigastric pain | CPT/HCPCS: 99223; 99232; 99239; 99499 ==

== ENCOUNTER 2024-10-14 01:07 | Outpatient (BNV) | payer OTHER, SELFPAY | END 2024-10-15 18:24 | PROVIDERS: Admitting Provider Physician Assistant; Emergency Provider Emergency Medicine; PCP Internal Medicine; Visit Provider Internal Medicine | DX: I49.3 Ventricular premature depolarization (principal) | CPT/HCPCS: 93010 ==

== ENCOUNTER → 2024-10-14 01:07 | Outpatient (BNV) | payer OTHER, SELFPAY | PROVIDERS: Admitting Provider Physician Assistant; Emergency Provider Emergency Medicine; Visit Provider Internal Medicine | DX: K92.1 Melena (principal); K92.0 Hematemesis; R10.13 Epigastric pain; E13.10 Other specified diabetes mellitus with ketoacidosis without coma | CPT/HCPCS: 99222; 99232 ==

== ENCOUNTER → 2024-10-14 01:07 | Outpatient (BNV) | payer OTHER, SELFPAY | PROVIDERS: Admitting Provider Physician Assistant; Emergency Provider Emergency Medicine; Visit Provider Internal Medicine Critical Care Medicine | DX: E13.10 Other specified diabetes mellitus with ketoacidosis without coma (principal) | CPT/HCPCS: 99223; 99499 ==

== ENCOUNTER 2024-10-26 16:16 | Emergency (ER) | payer OTHER, SELFPAY ==
[2024-10-26 16:35] VITALS: BP 203/100; PULSE 87; RESP 20; TEMP 36.9; O2SAT 98; BMI 38.5
--- NOTE | 2024-10-26 16:35 | ECG_ITS ---
Test Reason : PAIN Blood Pressure : / mmHG Vent. Rate : 086 BPM Atrial Rate : 086 BPM P-R Int : 194 ms QRS Dur : 080 ms QT Int : 386 ms P-R-T Axes : 057 -19 052 degrees QTc Int : 461 ms Poor data quality, interpretation may be adversely affected Normal sinus rhythm Inferior infarct (cited on or before 30-APR-2023) Abnormal ECG When compared with ECG of 15-OCT-2024 18:24, Premature ventricular complexes are no longer Present Nonspecific T wave abnormality no longer evident in Inferior leads T wave inversion no longer evident in Anterior leads Referred By: Vanessa De Luna Electronically Signed By:YINA MERRILL MD
[2024-10-26 16:49] VITALS: BP 178/104; PULSE 92; O2SAT 99
[2024-10-26 17:13] LABS: MANUAL DIFF FLAG NO
[2024-10-26] MEDS: 0.9 % Sodium Chloride 1,000 ML 999 ML IV (17:13)
[2024-10-26] MEDS: Haloperidol Lactate 5 MG/ML VIAL IVPUSH (17:15)
[2024-10-26] MEDS: LORazepam 2 MG/ML VIAL 1 MG IVPUSH (17:17)
[2024-10-26 17:28] LABS: Basophils Absolute Auto 0.1 X10*3/uL (0.0-0.2); Basophils Percent Auto 0.6 % (0-2); Eosinophils Percent Auto 0.2 % (0-4); Hematocrit 40.6 % (42.0-52.0); Imm Gran Abs Auto 0.02 X10*3/uL (0.00-0.03); Imm Gran Pct Auto 0.2 % (0.0-0.4); Lymphocytes Absolute Auto 2.3 X10*3/uL (1.2-4.9); Lymphocytes Percent Auto 21.4 % (20-40); Mean Corpuscular HGB Conc 34.5 g/dl (31.0-36.0); Mean Corpuscular Volume 84.2 fL (80.0-98.0); Mean Platelet Volume 9.9 fL (9.4-12.4); Monocytes Absolute Auto 0.6 X10*3/uL (0.1-1.2); Monocytes Percent Auto 5.8 % (2-11); Neutrophils Absolute Auto 7.7 x10*3/uL (2.0-8.3); Neutrophils Percent Auto 71.8 % (45-73); Platelet Count 345 X10*3/uL (160-400); Red Blood Count 4.82 X10*6/uL (4.60-5.80); Red Cell Distribution Width 13.6 % (11.0-16.0); White Blood Count 10.7 X10*3/uL (4.8-10.8)
[2024-10-26 17:52] LABS: Beta-Hydroxybutyrate 0.72 mmol/L (0.02-0.27)
[2024-10-26 17:52] LABS: Glucose, Whole Blood 211 mg/dL (60-115)
[2024-10-26 17:57] LABS: Alanine Aminotransferase 20 U/L (0-40); Albumin Level 3.7 g/dL (3.5-5.0); Alkaline Phosphatase 68 U/L (39-117); Anion Gap 14 (12-20); Aspartate Amino Transferase 34 U/L (5-37); Bilirubin Total 0.4 mg/dL (0.0-1.0); Blood Urea Nitrogen 10 mg/dL (9-16); Carbon Dioxide 22 mmol/L (22-29); Chloride 109 mmol/L (96-108); Creatinine Clr Calc Pharmacy 120.8; Estimated Glomerular Filt Rate > 60; Glucose Random 250 mg/dL (60-115); Lipase 5 U/L (8-78); Magnesium 2.2 mg/dL (1.6-2.6); Sodium 140 mmol/L (135-145)
[2024-10-26 18:03] LABS: Troponin-I High Sensitivity 6.6 ng/L (<3.5-35.0)
[2024-10-26] MEDS: Metoprolol Tartrate 5 MG/5 ML VIAL IVPUSH (18:08)
[2024-10-26 18:16] VITALS: BP 170/85; PULSE 87; RESP 16; O2SAT 96
--- NOTE | 2024-10-26 18:18 | ED.ABDPAIN ---
HPI - Abdominal Pain General Chief Complaint: Abdominal Pain Stated Complaint: chest pain, n/v, recent d/c for dka Time Seen by Provider: 10/26/24 16:35 Source: patient Limitations: no limitations History of Present Illness ED Provider: Vanessa De Luna PA-C HPI narrative: 63-year-old male with a history of type 2 diabetes on insulin, CAD s/p 4VCABG in 2018, paroxysmal AFib on Xarelto, PID with history of osteomyelitis and amputation left great toe, HTN, mild intermittent asthma, CHF, just discharged from the hospital on October 18 for abdominal pain secondary to the use of Farxiga and DKA, presents with ongoing symptoms. Patient states he started to feel better at the time of his discharge, however over the past 2 days he has developed nausea vomiting again. Patient denies additional diarrhea. Patient states he has not been able to take his scheduled medications due to inability to tolerate p.o. intake. Denies fever. Related Data Home Medications ?Medication ?Instructions ?Recorded ?Confirmed ezetimibe 10 mg tablet 1 tab PO DAILY 01/03/22 10/14/24 gabapentin 300 mg capsule 1 cap PO TID 01/03/22 10/14/24 insulin glargine 100 unit/mL 60 unit subcut BID 01/03/22 10/14/24 subcutaneous solution (Lantus U-100 Insulin) isosorbide mononitrate 30 mg 1 tab PO DAILY 01/03/22 10/14/24 tablet,extended release 24 hr loratadine 10 mg tablet 1 tab PO DAILY 01/03/22 10/14/24 losartan 25 mg tablet 1 tab PO DAILY 01/03/22 10/14/24 meclizine 25 mg tablet 1 tab PO TID 01/03/22 10/14/24 pantoprazole 40 mg tablet,delayed 1 tab PO BID@0630,1630 01/03/22 10/14/24 release rosuvastatin 40 mg tablet 1 tab PO BEDTIME 01/03/22 10/14/24 aspirin 81 mg tablet,delayed 1 tab PO DAILY 08/04/22 10/14/24 release furosemide 20 mg tablet 1 tab PO BID 11/13/22 10/14/24 venlafaxine 100 mg tablet 1 tab PO BID 11/13/22 10/14/24 metoprolol succinate 25 mg 25 mg PO DAILY 10/14/24 10/14/24 tablet,extended release 24 hr Previous Rx's ?Medication ?Instructions ?Recorded walker #1 ea 01/11/22 walker #1 ea 01/15/22 Band-Aid Gauze Pads 4 X 4 #25 ea 04/16/22 bandage (gauze bandage) elastic bandage 6 X 1.8 yard #6 ea 04/16/22 off loading boot (Aircast off #1 ea 04/16/22 loading boot) calcium alginate ag #5 ea 04/23/22 sterile gauze #40 ea 04/23/22 oxycodone 5 mg tablet 10 mg (2 x 5 mg) PO Q4H #15 tabs 11/16/22 ondansetron 4 mg disintegrating 4 mg translingual Q6H PRN Nausea 10/18/24 tablet And Vomiting #30 tabs ondansetron HCl 4 mg tablet 4 mg PO Q8H PRN nausea and 10/26/24 vomiting #10 tabs Allergies Allergy/AdvReac Type Severity Reaction Status Date / Time morphine AdvReac Intermediate Hallucinati Verified 10/26/24 17:09 ons Review of Systems Review of Systems Yes all other systems are reviewed and are negative Constitutional: Denies fatigue and Denies fever(s) Cardiovascular: Denies chest pain and Denies dyspnea Respiratory: Denies cough and Denies dyspnea Gastrointestinal: Reports abdominal pain, Denies diarrhea, Reports nausea and Reports vomiting Endocrine: Denies fatigue PMFSH Past Medical History Attestation statement: The following information was validated with the patient. Medical History PAD (peripheral artery disease) Afib Amputation of left great toe Lower limb amputation, great toe CAD (coronary artery disease) DMII (diabetes mellitus, type 2) Orthopedic hardware present Hyperglycemia Cellulitis Asthma Diabetes Hypertension FHx: bilateral hip replacements Surgical History History of amputation of toe (07/29/22) History of amputation of great toe (01/07/22) History of back surgery History of neck surgery History of ankle surgery H/O bilateral hip replacements S/P quadruple vessel bypass Family History Family History Other No family history of coronary artery disease Social History Social History Household Members: Spouse Household Members Other:: 3 Housing: House Are you a primary sub acute care nurse to a significant other at home: No Do you presently have visiting nurse or other home services: No Alcohol intake: never Comment: refused bed or chair alarm Patient Tobacco Use Status: Former Tobacco user Tobacco use type: Cigarette Second Hand Smoke Exposure: No Advance Directives: No Advance Directives Information Provided: No Advance Directives Date on File: 01/04/22 service: No Current occupational status: disabled Physical Exam ED Vital Signs: Vital Signs - 24 hr 10/26/24 16:35 10/26/24 18:16 Temperature 98.5 F Pulse Rate 87 87 Respiratory Rate 20 16 Blood Pressure 203/100 H 170/85 H Pulse Oximetry 98 96 Oxygen Delivery Method Room Air Room Air BMI result Body Mass Index 38.5 Const Other: Awake, crying Orientation/consciousness: patient oriented x3 Resp Effort & Inspection: normal respiratory effort Cardio Other: Normal peripheral perfusion GI Other: With distraction abdomen is soft, nontender nondistended no guarding obese abdomen Skin Other: Warm dry no rash Neuro General: patient oriented x3, no focal motor deficits and CN's II-XI intact bilaterally Psych Other: Dramatic, cooperative Medical Decision Making Medical Decision Making MDM Narrative: 63-year-old male with a history of type 2 diabetes on insulin, CAD s/p 4VCABG in 2018, paroxysmal AFib on Xarelto, PID with history of osteomyelitis and amputation left great toe, HTN, mild intermittent asthma, CHF, just discharged from the hospital on October 18 for abdominal pain secondary to the use of Farxiga and DKA, presents with ongoing symptoms. Patient states he started to feel better at the time of his discharge, however over the past 2 days he has developed nausea vomiting again. Patient denies additional diarrhea. Patient states he has not been able to take his scheduled medications due to inability to tolerate p.o. intake. Denies fever. Problem: Recent admission, diabetes, prior DKA, chronic pain History: Per patient I have considered the following differential diagnoses: DKA, viral gastroenteritis, acute intra-abdominal pathology, drug-seeking behavior Plan: We will be screening basic labs including beta hydroxy and a hepatic panel. The patient's abdominal exam is benign, he does not warrant imaging. He admits to not taking his medications due to ?intractable nausea vomiting?. With distraction he ceases his crying. He keeps asking for pain medication. We will start with the Haldol Ativan and IV fluid. We will be needing to give Lopressor he is hypertensive. Adding an EKG, EMS reports bigeminy on their monitor, adding a trop. He could have developed viral gastroenteritis just from being within the hospital, he does not have concurrent diarrhea. I have independently reviewed the following tests: Labs: No leukocytosis, not anemic, no electrolyte abnormality, blood sugar 200s, not in DKA, trop 6, less than his recent enzymes and he has no CP EKG: Normal sinus rhythm, rate 86, no ectopy, no ischemic changes, QTC 461 Lab Data 10/26/24 17:07 10/26/24 17:07 Labs: Lab Results 10/26/24 10/26/24 Range/Units 17:07 17:48 WBC 10.7 (4.8-10.8) X10*3/uL RBC 4.82 (4.60-5.80) X10*6/uL Hgb 14.0 (14.0-18.0) g/dl Hct 40.6 L (42.0-52.0) % MCV 84.2 (80.0-98.0) fL MCH 29.0 (27.0-33.0) pg MCHC 34.5 (31.0-36.0) g/dl RDW 13.6 (11.0-16.0) % Plt Count 345 D (160-400) X10*3/uL MPV 9.9 (9.4-12.4) fL Immature Gran % (Auto) 0.2 (0.0-0.4) % Neut % (Auto) 71.8 (45-73) % Lymph % (Auto) 21.4 (20-40) % [place] % (Auto) 5.8 (2-11) % Eos % (Auto) 0.2 (0-4) % Baso % (Auto) 0.6 (0-2) % Lymph # (Auto) 2.3 (1.2-4.9) X10*3/uL [place] # (Auto) 0.6 (0.1-1.2) X10*3/uL Eos # (Auto) 0.0 (0.0-0.4) X10*3/uL Baso # (Auto) 0.1 (0.0-0.2) X10*3/uL Abs Immat Gran (auto) 0.02 (0.00-0.03) X10*3/uL Absolute Neuts (auto) 7.7 (2.0-8.3) x10*3/uL Absolute Nucleated RBC 0.000 (0.0-0.012) X10*3/uL Nucleated RBC % (auto) 0.0 (0.0-0.2) /100WBC Sodium 140 (135-145) mmol/L Potassium 5.0 D (3.3-5.1) mmol/L Chloride 109 H (96-108) mmol/L Carbon Dioxide 22 (22-29) mmol/L Anion Gap 14 (12-20) BUN 10 (9-16) mg/dL Creatinine 0.77 (0.5-1.4) mg/dL Estim Creat Clear Calc 120.8 Estimated GFR > 60 POC Glucose 211 H (60-115) mg/dL Random Glucose 250 H (60-115) mg/dL Calcium 9.0 (8.4-10.2) mg/dL Magnesium 2.2 (1.6-2.6) mg/dL Total Bilirubin 0.4 (0.0-1.0) mg/dL AST 34 (5-37) U/L ALT 20 (0-40) U/L Alkaline Phosphatase 68 (39-117) U/L Troponin I High Sens 6.6 (<3.5-35.0) ng/L Total Protein 7.0 (6.5-8.0) g/dL Albumin 3.7 (3.5-5.0) g/dL Lipase 5 L (8-78) U/L Beta-Hydroxybutyrate 0.72 H (0.02-0.27) mmol/L Medications Administered Discontinued Medications Generic Name Dose Route Start Last Admin Trade Name Freq PRN Reason Stop Dose Admin Haloperidol Lactate 5 mg 10/26/24 17:07 10/26/24 17:15 Haloperidol Lactate 5 Mg/Ml Vial IVPUSH 10/26/24 17:08 5 mg ONCE ONE Administration Sodium Chloride 1,000 mls @ 999 mls/hr 10/26/24 17:15 10/26/24 17:13 Ns IV 10/26/24 18:15 999 mls/hr .Q1H1M WILLIAM Administration Lorazepam 1 mg 10/26/24 17:07 10/26/24 17:17 Lorazepam 2 Mg/Ml Vial IVPUSH 10/26/24 17:08 1 mg ONCE ONE Administration Metoprolol Tartrate 5 mg 10/26/24 17:43 10/26/24 18:08 Metoprolol Tartrate 5 Mg/5 Ml Vial IVPUSH 10/26/24 17:44 5 mg ONCE ONE Administration Protocol Discharge Plan Discharge Clinical Impression: Abdominal pain Patient Disposition: Home, Self-Care Instructions: Abdominal Pain (ED) Additional Instructions: In regard to abdominal pain, you could have picked up a virus from being here in the hospital. See home care instructions. Uses Zofran as needed for nausea. You had no lab abnormalities. You need to follow up with your primary care provider. Prescriptions: New ondansetron HCl 4 mg tablet 4 mg PO Q8H PRN (Reason: nausea and vomiting) Qty: 10 0RF No Action (DME) walker Misc See Rx Instructions .Route Qty: 1 0RF Rx Instructions: As directed (DME) Aircast off loading boot Kit See Rx Instructions .Route Qty: 1 0RF Rx Instructions: As directed (DME) elastic bandage 6 X 1.8 -yard bandage See Rx Instructions .Route Qty: 6 0RF Rx Instructions: As directed (DME) gauze bandage [Band-Aid Gauze Pads] 4 X 4 bandage See Rx Instructions .Route Qty: 25 3RF Rx Instructions: As directed (DME) sterile gauze 4x4 See Rx Instructions .Route .MEDSUPPLY Qty: 40 3RF Rx Instructions: Apply to left foot wound every other day (DME) calcium alginate ag 4x4 pad See Rx Instructions .Route .MEDSUPPLY Qty: 5 2RF Rx Instructions: Apply to wound beds every other day insulin glargine [Lantus U-100 Insulin] 100 unit/mL solution 60 unit subcut BID Rx Instructions: 50 units at lunch and 100 units at bedtime isosorbide mononitrate 30 mg tablet extended release 24 hr 1 tab PO DAILY pantoprazole 40 mg tablet,delayed release (DR/EC) 1 tab PO BID@0630,1630 losartan 25 mg tablet 1 tab PO DAILY gabapentin 300 mg capsule 1 cap PO TID loratadine 10 mg tablet 1 tab PO DAILY ezetimibe 10 mg tablet 1 tab PO DAILY rosuvastatin 40 mg tablet 1 tab PO BEDTIME meclizine 25 mg tablet 1 tab PO TID (DME) jw Morgan See Rx Instructions .Route Qty: 1 0RF Rx Instructions: As directed aspirin 81 mg tablet,delayed release (DR/EC) 1 tab PO DAILY venlafaxine 100 mg tablet 1 tab PO BID furosemide 20 mg tablet 1 tab PO BID oxycodone 5 mg tablet 10 mg PO Q4H Qty: 15 0RF metoprolol succinate 25 mg tablet extended release 24 hr 25 mg PO DAILY ondansetron 4 mg Tablet,Disintegrating 4 mg translingual Q6H PRN (Reason: Nausea And Vomiting) Qty: 30 0RF Print Language: [place]
[2024-10-26] MEDS: oxyCODONE HCl Immed Release 5 MG TABLET 10 MG PO (18:28)
[2024-10-26 18:34] VITALS: BP 167/90; PULSE 72; RESP 14; TEMP 37.1; O2SAT 96
[2024-10-26 18:45] VITALS: BP 158/78; PULSE 78; RESP 16; TEMP 37.1; O2SAT 98
== END 2024-10-26 19:19 | disposition home or self-care (01) ==
PROVIDERS: Physician Assistant Medical; Emergency Provider Emergency Medicine
DX: R10.2 Pelvic and perineal pain (principal); R07.89 Other chest pain; R11.2 Nausea with vomiting, unspecified; E11.9 Type 2 diabetes mellitus without complications; Z79.4 Long term (current) use of insulin; I25.10 Atherosclerotic heart disease of native coronary artery without angina pectoris; I10 Essential (primary) hypertension; Z79.899 Other long term (current) drug therapy; Z87.891 Personal history of nicotine dependence
CPT/HCPCS: 36415; 80053; 82010; 82947; 83690; 83735; 84484; 85025; 93005; 96361; 96374; 96375; 99284; J1630; J2060

== ENCOUNTER → 2024-10-26 16:35 | Outpatient (BNV) | payer OTHER, SELFPAY | PROVIDERS: Emergency Provider Emergency Medicine; Visit Provider Internal Medicine Cardiovascular Disease | DX: R94.31 Abnormal electrocardiogram [ECG] [EKG] (principal) | CPT/HCPCS: 93010 ==

== ENCOUNTER 2024-10-27 22:59 | Emergency (ER) | payer OTHER, SELFPAY ==
[2024-10-27 23:19] VITALS: BP 196/87; PULSE 94; RESP 16; TEMP 37.1; O2SAT 92; BMI 30.4
[2024-10-27 23:21] VITALS: BP 178/80; PULSE 100; O2SAT 98
[2024-10-27 23:30] LABS: MANUAL DIFF FLAG NO
[2024-10-27 23:31] LABS: Basophils Absolute Auto 0.1 X10*3/uL (0.0-0.2); Basophils Percent Auto 0.5 % (0-2); Eosinophils Percent Auto 0.1 % (0-4); Hematocrit 41.3 % (42.0-52.0); Hemoglobin 14.4 g/dl (14.0-18.0); Imm Gran Abs Auto 0.05 X10*3/uL (0.00-0.03); Imm Gran Pct Auto 0.4 % (0.0-0.4); Lymphocytes Absolute Auto 2.8 X10*3/uL (1.2-4.9); Lymphocytes Percent Auto 19.8 % (20-40); Mean Corpuscular HGB Conc 34.9 g/dl (31.0-36.0); Mean Corpuscular Hemoglobin 29.3 pg (27.0-33.0); Mean Corpuscular Volume 83.9 fL (80.0-98.0); Mean Platelet Volume 9.6 fL (9.4-12.4); Monocytes Absolute Auto 0.9 X10*3/uL (0.1-1.2); Monocytes Percent Auto 6.4 % (2-11); Neutrophils Absolute Auto 10.3 x10*3/uL (2.0-8.3); Neutrophils Percent Auto 72.8 % (45-73); Platelet Count 366 X10*3/uL (160-400); Red Blood Count 4.92 X10*6/uL (4.60-5.80); White Blood Count 14.1 X10*3/uL (4.8-10.8)
[2024-10-27] MEDS: 0.9 % Sodium Chloride 1,000 ML 999 ML IV (23:36)
[2024-10-27] MEDS: ondansetron HCL 4 MG/2 ML VIAL IVPUSH (23:37)
--- NOTE | 2024-10-27 23:39 | PC.NURSE ---
Iv placed, labs collect and sent, medicated per dec.
--- NOTE | 2024-10-27 23:40 | ED.ABDPAIN ---
HPI - Abdominal Pain General Chief Complaint: Abdominal Pain Stated Complaint: Nausea x2 days Time Seen by Provider: 10/27/24 23:35 Source: patient Mode of arrival: ambulatory Limitations: no limitations History of Present Illness ED Provider: HPI narrative: 63yo M with DM2 on insulin, CAD s/p 4V CABG [2018], pAF on rivaroxaban, PAD with hx osteomyelitis + amputation of L great toe, HTN, and CHF; admitted for euglycemic DKA on 10/14 and discharged on 10/18 been here multiple times for similar reasons was seen here yesterday for nausea vomiting for last 2 days no diarrhea no fever comes here as unable to hold any liquids down vomited about 4 5 times and had multiple episodes of watery stools with diffuse abdominal cramping Related Data Home Medications ?Medication ?Instructions ?Recorded ?Confirmed ezetimibe 10 mg tablet 1 tab PO DAILY 01/03/22 10/14/24 gabapentin 300 mg capsule 1 cap PO TID 01/03/22 10/14/24 insulin glargine 100 unit/mL 60 unit subcut BID 01/03/22 10/14/24 subcutaneous solution (Lantus U-100 Insulin) isosorbide mononitrate 30 mg 1 tab PO DAILY 01/03/22 10/14/24 tablet,extended release 24 hr loratadine 10 mg tablet 1 tab PO DAILY 01/03/22 10/14/24 losartan 25 mg tablet 1 tab PO DAILY 01/03/22 10/14/24 meclizine 25 mg tablet 1 tab PO TID 01/03/22 10/14/24 pantoprazole 40 mg tablet,delayed 1 tab PO BID@0630,1630 01/03/22 10/14/24 release rosuvastatin 40 mg tablet 1 tab PO BEDTIME 01/03/22 10/14/24 aspirin 81 mg tablet,delayed 1 tab PO DAILY 08/04/22 10/14/24 release furosemide 20 mg tablet 1 tab PO BID 11/13/22 10/14/24 venlafaxine 100 mg tablet 1 tab PO BID 11/13/22 10/14/24 metoprolol succinate 25 mg 25 mg PO DAILY 10/14/24 10/14/24 tablet,extended release 24 hr Previous Rx's ?Medication ?Instructions ?Recorded walker #1 ea 01/11/22 walker #1 ea 01/15/22 Band-Aid Gauze Pads 4 X 4 #25 ea 04/16/22 bandage (gauze bandage) elastic bandage 6 X 1.8 yard #6 ea 04/16/22 off loading boot (Aircast off #1 ea 04/16/22 loading boot) calcium alginate ag #5 ea 04/23/22 sterile gauze #40 ea 04/23/22 oxycodone 5 mg tablet 10 mg (2 x 5 mg) PO Q4H #15 tabs 11/16/22 ondansetron 4 mg disintegrating 4 mg translingual Q6H PRN Nausea 10/18/24 tablet And Vomiting #30 tabs ondansetron HCl 4 mg tablet 4 mg PO Q8H PRN nausea and 10/26/24 vomiting #10 tabs metoclopramide HCl 10 mg tablet 10 mg PO Q8H PRN nausea and 10/28/24 (Reglan) vomiting #30 tabs Allergies Allergy/AdvReac Type Severity Reaction Status Date / Time morphine AdvReac Intermediate Hallucinati Verified 10/27/24 23:20 ons Review of Systems Review of Systems Yes all other systems are reviewed and are negative FORMERLY [facility], [facility] Past Medical History Medical History Obesity (BMI 30-39.9) PAD (peripheral artery disease) Afib Amputation of left great toe Lower limb amputation, great toe CAD (coronary artery disease) DMII (diabetes mellitus, type 2) Orthopedic hardware present Hyperglycemia Cellulitis Asthma Diabetes Hypertension FHx: bilateral hip replacements Surgical History History of amputation of toe (07/29/22) History of amputation of great toe (01/07/22) History of back surgery History of neck surgery History of ankle surgery H/O bilateral hip replacements S/P quadruple vessel bypass Family History Family History Other No family history of coronary artery disease Social History Social History Household Members: Spouse Household Members Other:: 3 Housing: House Are you a primary health care assistant to a significant other at home: No Do you presently have visiting nurse or other home services: No Alcohol intake: never Comment: refused bed or chair alarm Patient Tobacco Use Status: Former Tobacco user Tobacco use type: Cigarette Second Hand Smoke Exposure: No Use of substances other than those prescribed or required for medical reasons: No Advance Directives: No Advance Directives Information Provided: Yes Advance Directives Date on File: 01/04/22 Do you have a plan to hurt others: No Plan service: No Current occupational status: disabled Physical Exam ED Vital Signs: Vital Signs - 24 hr 10/27/24 23:19 10/28/24 00:42 Temperature 98.7 F 98.9 F Pulse Rate 16 L 94 Respiratory Rate 16 22 H Blood Pressure 196/87 H 166/76 H Pulse Oximetry 92 99 Oxygen Delivery Method Room Air Room Air BMI result Body Mass Index 30.4 Appearance: Alert. Oriented X3. No acute distress. Eyes: No pallor or icterus ENT: Pharynx normal. Oral Mucosa moist Neck: Normal inspection. Neck supple. CVS: Normal heart rate and rhythm. Pulses normal. Respiratory: No respiratory distress. Equal air entry bilateral, no wheezing/rales/rhonchi Abdomen: Soft and diffuse abdominal tenderness no rebound tenderness or guarding Bowel sounds are present, no mass palpable, no CVA tenderness Skin: Skin warm and dry. Normal skin color. Normal skin turgor. Extremities: No lower extremity edema. No calf tenderness Neuro: Oriented X 3. No motor deficit. No sensory deficit.No cerebellar signs , cranial nerves II-XII intact Medical Decision Making Medical Decision Making MDM Narrative: Patient is on oxycodone 10 mg every 4 hours for chronic pain in the left leg was seen here yesterday not in DKA asking for Dilaudid for the pain no active vomiting was noticed in the ER at this time patient's behavior seems to be narcotic dependent patient's seems to be slightly better after Compazine will prescribe him Reglan before meals follow up with GI Patient's and patient's were upset as pain medicine was not given patient refused Toradol asking for Dilaudid only Differential Diagnosis Differential Diagnoses: The differential diagnosis associated with the presentation includes Gastroparesis/enteritis/gastritis Lab Data [facility] Lab Attestation statement: I reviewed the patient's lab results. 10/27/24 23:27 10/27/24 23:27 Labs: Lab Results 10/27/24 Range/Units 23:27 WBC 14.1 H (4.8-10.8) X10*3/uL RBC 4.92 (4.60-5.80) X10*6/uL Hgb 14.4 (14.0-18.0) g/dl Hct 41.3 L (42.0-52.0) % MCV 83.9 (80.0-98.0) fL MCH 29.3 (27.0-33.0) pg MCHC 34.9 (31.0-36.0) g/dl RDW 14.0 (11.0-16.0) % Plt Count 366 (160-400) X10*3/uL MPV 9.6 (9.4-12.4) fL Immature Gran % (Auto) 0.4 (0.0-0.4) % Neut % (Auto) 72.8 (45-73) % Lymph % (Auto) 19.8 L (20-40) % Coos % (Auto) 6.4 (2-11) % Eos % (Auto) 0.1 (0-4) % Baso % (Auto) 0.5 (0-2) % Lymph # (Auto) 2.8 (1.2-4.9) X10*3/uL [place] # (Auto) 0.9 (0.1-1.2) X10*3/uL Eos # (Auto) 0.0 (0.0-0.4) X10*3/uL Baso # (Auto) 0.1 (0.0-0.2) X10*3/uL Abs Immat Gran (auto) 0.05 H (0.00-0.03) X10*3/uL Absolute Neuts (auto) 10.3 H (2.0-8.3) x10*3/uL Absolute Nucleated RBC 0.000 (0.0-0.012) X10*3/uL Nucleated RBC % (auto) 0.0 (0.0-0.2) /100WBC Sodium 139 (135-145) mmol/L Potassium 3.6 D (3.3-5.1) mmol/L Chloride 109 H (96-108) mmol/L Carbon Dioxide 18 L (22-29) mmol/L Anion Gap 16 (12-20) BUN 12 (9-16) mg/dL Creatinine 0.79 (0.5-1.4) mg/dL Estim Creat Clear Calc 104.6 Estimated GFR > 60 Random Glucose 179 H (60-115) mg/dL Calcium 9.8 D (8.4-10.2) mg/dL Total Bilirubin 0.4 (0.0-1.0) mg/dL AST 29 (5-37) U/L ALT 24 (0-40) U/L Alkaline Phosphatase 77 (39-117) U/L Total Protein 7.4 (6.5-8.0) g/dL Albumin 4.2 (3.5-5.0) g/dL Lipase 5 L (8-78) U/L Beta-Hydroxybutyrate 0.91 H (0.02-0.27) mmol/L Medications Administered Discontinued Medications Generic Name Dose Route Start Last Admin Trade Name Freq PRN Reason Stop Dose Admin Dicyclomine HCl 20 mg 10/27/24 23:49 10/27/24 23:59 Dicyclomine Hcl 10 Mg Capsule PO 10/27/24 23:50 Not Given ONCE ONE Dicyclomine HCl 20 mg 10/28/24 01:11 10/28/24 01:34 Dicyclomine Hcl 10 Mg Capsule PO 10/28/24 01:12 20 mg ONCE ONE Administration Sodium Chloride 1,000 mls @ 999 mls/hr 10/27/24 23:45 10/27/24 23:36 Ns IV 10/28/24 00:45 999 mls/hr .Q1H1M WILLIAM Administration Sodium Chloride 1,000 mls @ 999 mls/hr 10/27/24 23:49 10/28/24 00:02 Ns IV 10/28/24 00:49 Not Given .Q1H1M ONE Ketorolac Tromethamine 30 mg 10/27/24 23:54 10/27/24 23:58 Ketorolac Tromethamine 30 Mg/Ml Vial IVPUSH 10/27/24 23:55 30 mg ONCE ONE Administration Ondansetron HCl 4 mg 10/27/24 23:33 10/27/24 23:37 Ondansetron Hcl 4 Mg/2 Ml Vial IVPUSH 10/27/24 23:34 4 mg ONCE ONE Administration Discharge Plan Discharge Clinical Impression: Chronic abdominal pain, Diabetic gastroparesis, Chronic pain Patient Disposition: Home, Self-Care Instructions: Diabetic Gastroparesis (DC), Chronic Pain (ED), Abdominal Pain (ED) Additional Instructions: Continue take your medications as prescribed by your PCP for pain Take Reglan 1 tablet half an hour before meals 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 Prescriptions: New metoclopramide HCl [Reglan] 10 mg tablet 10 mg PO Q8H PRN (Reason: nausea and vomiting) Qty: 30 0RF No Action ([facility] [facility] [place] Instructions .Route Qty: 1 0RF Rx Instructions: As directed ([facility]) Aircast off loading boot Kit See Rx Instructions .Route Qty: 1 0RF Rx Instructions: As directed ([facility]) elastic bandage 6 X 1.8 -yard bandage See Rx Instructions .Route Qty: 6 0RF Rx Instructions: As directed ([facility]) gauze bandage [Band-Aid Gauze Pads] 4 X 4 bandage See Rx Instructions .Route Qty: 25 3RF Rx Instructions: As directed ([facility]) sterile gauze 4x4 See Rx Instructions .Route .MEDSUPPLY Qty: 40 3RF Rx Instructions: Apply to left foot wound every other day (DME) calcium alginate ag 4x4 pad See Rx Instructions .Route .MEDSUPPLY Qty: 5 2RF Rx Instructions: Apply to wound beds every other day insulin glargine [Lantus U-100 Insulin] 100 unit/mL solution 60 unit subcut BID Rx Instructions: 50 units at lunch and 100 units at bedtime isosorbide mononitrate 30 mg tablet extended release 24 hr 1 tab PO DAILY pantoprazole 40 mg tablet,delayed release (DR/EC) 1 tab PO BID@0630,1630 losartan 25 mg tablet 1 tab PO DAILY gabapentin 300 mg capsule 1 cap PO TID loratadine 10 mg tablet 1 tab PO DAILY ezetimibe 10 mg tablet 1 tab PO DAILY rosuvastatin 40 mg tablet 1 tab PO BEDTIME meclizine 25 mg tablet 1 tab PO TID (MARIA L) [place] [facility] [place] Instructions .Route Qty: 1 0RF Rx Instructions: As directed aspirin 81 mg tablet,delayed release (DR/EC) 1 tab PO DAILY venlafaxine 100 mg tablet 1 tab PO BID furosemide 20 mg tablet 1 tab PO BID oxycodone 5 mg tablet 10 mg PO Q4H Qty: 15 0RF metoprolol succinate 25 mg tablet extended release 24 hr 25 mg PO DAILY ondansetron 4 mg Tablet,Disintegrating 4 mg translingual Q6H PRN (Reason: Nausea And Vomiting) Qty: 30 0RF ondansetron HCl 4 mg tablet 4 mg PO Q8H PRN (Reason: nausea and vomiting) Qty: 10 0RF Print Language: Algerian
[2024-10-27 23:47] LABS: Alanine Aminotransferase 24 U/L (0-40); Albumin Level 4.2 g/dL (3.5-5.0); Alkaline Phosphatase 77 U/L (39-117); Anion Gap 16 (12-20); Aspartate Amino Transferase 29 U/L (5-37); Bilirubin Total 0.4 mg/dL (0.0-1.0); Blood Urea Nitrogen 12 mg/dL (9-16); Calcium 9.8 mg/dL (8.4-10.2); Carbon Dioxide 18 mmol/L (22-29); Chloride 109 mmol/L (96-108); Creatinine Clr Calc Pharmacy 104.6; Estimated Glomerular Filt Rate > 60; Glucose Random 179 mg/dL (60-115); Lipase 5 U/L (8-78); Potassium 3.6 mmol/L (3.3-5.1); Sodium 139 mmol/L (135-145); Total Protein 7.4 g/dL (6.5-8.0)
[2024-10-27] MEDS: Ketorolac Tromethamine 30 MG/ML VIAL IVPUSH (23:58)
[2024-10-28 00:14] LABS: Beta-Hydroxybutyrate 0.91 mmol/L (0.02-0.27)
--- NOTE | 2024-10-28 00:14 | PC.NURSE ---
Iv removed, reviewed discharge instructions with pt, pt verbalized understanding, no sign of distress.
--- NOTE | 2024-10-28 00:15 | PC.NURSE ---
pt refusing po medication, provider is aware.
[2024-10-28 00:42] VITALS: BP 166/76; PULSE 94; RESP 22; TEMP 37.2; O2SAT 99
--- NOTE | 2024-10-28 00:49 | PC.NURSE ---
medicated per mar.
--- NOTE | 2024-10-28 01:19 | PC.NURSE ---
pt continue to complain about his pain management, provider is fischer, will medicate per mar.
[2024-10-28] MEDS: Dicyclomine HCl 10 MG CAPSULE 20 MG PO (01:34)
--- NOTE | 2024-10-28 01:38 | PC.NURSE ---
pt given medication per dec and two sips of water.
--- NOTE | 2024-10-28 02:08 | PC.NURSE ---
pt and continue to verbally be upset with pain management, Notified provider, charge nurse and cc, Pt demanding stronger pain medication. Pt discharge home to follow up with primary for chronic pain management.
--- NOTE | 2024-10-28 02:15 | PC.NURSE ---
This RN to bedside with Dr. Luna at this time. Dr. Luna explained to pt he was not going to give him dilaudid. Pt requested additional dose of compazine prior to dc, stated to pt he could not give another dose it was too close to last dose administered, he would send prescription for antiemetic. Pt verbalized understanding.
[2024-10-28 02:20] VITALS: BP 150/78; PULSE 94; RESP 20; TEMP 37.2; O2SAT 96
== END 2024-10-28 02:25 | disposition home or self-care (01) ==
PROVIDERS: Emergency Provider Internal Medicine; PCP Internal Medicine
DX: E11.43 Type 2 diabetes mellitus with diabetic autonomic (poly)neuropathy (principal); K31.84 Gastroparesis; G89.29 Other chronic pain; R10.9 Unspecified abdominal pain; E11.9 Type 2 diabetes mellitus without complications; I10 Essential (primary) hypertension; J45.909 Unspecified asthma, uncomplicated; Z87.891 Personal history of nicotine dependence; Z79.891 Long term (current) use of opiate analgesic; Z79.02 Long term (current) use of antithrombotics/antiplatelets; Z79.4 Long term (current) use of insulin
CPT/HCPCS: 36415; 80053; 82010; 83690; 85025; 96361; 96372; 96374; 96375; 99285; J0737; J1885; J2405

== ENCOUNTER 2024-12-16 07:04 | Inpatient (IN) | payer OTHER, SELFPAY ==
[2024-12-16] VITALS (7 sets, daily range): BP systolic 124–180; BP diastolic 61–90; PULSE 85–114; RESP 14–29; TEMP 36.3–37.2; O2SAT 94–100; BMI 36.4
--- NOTE | 2024-12-16 | ECG_ITS ---
Test Reason : A FLUTTER Blood Pressure : */* mmHG Vent. Rate : 104 BPM Atrial Rate : 104 BPM P-R Int : 194 ms QRS Dur : 90 ms QT Int : 358 ms P-R-T Axes : 63 -6 74 degrees QTcB Int : 470 ms Sinus tachycardia Possible Left atrial enlargement Nonspecific ST and T wave abnormality Abnormal ECG When compared with ECG of 26-Oct-2024 17:38, No significant change was found Referred By: Generic ED Physician Electronically Signed By: SID ORTIZ
[2024-12-16 07:58] LABS: Basophils Absolute Auto 0.1 X10*3/uL (0.0-0.2); Basophils Percent Auto 0.5 % (0-2); Eosinophils Absolute Auto 0.1 X10*3/uL (0.0-0.4); Eosinophils Percent Auto 0.8 % (0-4); Hematocrit 42.1 % (42.0-52.0); Hemoglobin 14.7 g/dl (14.0-18.0); Imm Gran Abs Auto 0.07 X10*3/uL (0.00-0.03); Imm Gran Pct Auto 0.5 % (0.0-0.4); Lymphocytes Percent Auto 7.5 % (20-40); MANUAL DIFF FLAG SCAN; Mean Corpuscular HGB Conc 34.9 g/dl (31.0-36.0); Mean Corpuscular Hemoglobin 29.6 pg (27.0-33.0); Mean Corpuscular Volume 84.9 fL (80.0-98.0); Monocytes Absolute Auto 0.2 X10*3/uL (0.1-1.2); Monocytes Percent Auto 1.8 % (2-11); Neutrophils Absolute Auto 11.7 x10*3/uL (2.0-8.3); Neutrophils Percent Auto 88.9 % (45-73); PLT CLUMP 1; Red Blood Count 4.96 X10*6/uL (4.60-5.80); Red Cell Distribution Width 13.9 % (11.0-16.0); SCAN SMEAR FLAG 1; White Blood Count 13.1 X10*3/uL (4.8-10.8)
[2024-12-16 08:18] LABS: Mean Platelet Volume 10.9 fL (9.4-12.4); Platelet Count 214 X10*3/uL (160-400)
[2024-12-16 08:25] LABS: Appearance Urine Clear; Color Urine Yellow; Glucose Urine UA >=1000 mg/dL (Negative); Leukocyte Esterase Urine Negative (Negative); Nitrite Urine Negative (Negative); PH 5.5 (5.0-9.0); Specific Gravity - Urine >= 1.030 (1.005-1.025); UMIC TRIGGER UACC YES; Urine Blood Small (1+) (Negative); Urine Ketones >=160 mg/dL (Negative); Urine Protein 100 (2+) mg/dL (Neg-Trace)
[2024-12-16 08:36] LABS: Bacteria Urine None Seen (None Seen); Hyaline Casts Urine 0-2 /LPF (0-2); RBC Urine 0-2 /HPF (0-2); Squamous Epithelial Cell Urine 0-2 /HPF (0-2); WBC Urine 0-5 /HPF (0-5)
--- NOTE | 2024-12-16 08:38 | ED.NAVMDI ---
HPI - Nausea/Vomiting/Diarrhea General Chief complaint: Nausea/Vomiting/Diarrhea Stated complaint: VOMITING Time Seen by Provider: 12/16/24 08:04 Source: patient, EMS, RN notes reviewed and old records reviewed Mode of arrival: EMS History of Present Illness ED Provider: Sherry Diaz PA-C HPI Narrative: 64-year-old male w/PMHx type 2 diabetes on insulin, CAD s/p 4VCABG in 2018, paroxysmal AFib on Xarelto, PID with history of osteomyelitis and amputation left great toe, HTN, mild intermittent asthma, CHF, presenting to the ED via EMS complaining of epigastric abdominal pain, nausea, vomiting and inability to tolerate p.o. since yesterday. 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 Denies fever, chills, diarrhea chest constipation, dysuria/hematuria, recent travel, sick contacts. Related Data Home Medications ?Medication ?Instructions ?Recorded ?Confirmed ezetimibe 10 mg tablet 1 tab PO DAILY 01/03/22 10/14/24 gabapentin 300 mg capsule 1 cap PO TID 01/03/22 10/14/24 insulin glargine 100 unit/mL 60 unit subcut BID 01/03/22 10/14/24 subcutaneous solution (Lantus U-100 Insulin) isosorbide mononitrate 30 mg 1 tab PO DAILY 01/03/22 10/14/24 tablet,extended release 24 hr loratadine 10 mg tablet 1 tab PO DAILY 01/03/22 10/14/24 losartan 25 mg tablet 1 tab PO DAILY 01/03/22 10/14/24 meclizine 25 mg tablet 1 tab PO TID 01/03/22 10/14/24 pantoprazole 40 mg tablet,delayed 1 tab PO BID@0630,1630 01/03/22 10/14/24 release rosuvastatin 40 mg tablet 1 tab PO BEDTIME 01/03/22 10/14/24 aspirin 81 mg tablet,delayed 1 tab PO DAILY 08/04/22 10/14/24 release furosemide 20 mg tablet 1 tab PO BID 11/13/22 10/14/24 venlafaxine 100 mg tablet 1 tab PO BID 11/13/22 10/14/24 metoprolol succinate 25 mg 25 mg PO DAILY 10/14/24 10/14/24 tablet,extended release 24 hr Previous Rx's ?Medication ?Instructions ?Recorded walker #1 ea 01/11/22 walker #1 ea 01/15/22 Band-Aid Gauze Pads 4 X 4 #25 ea 04/16/22 bandage (gauze bandage) elastic bandage 6 X 1.8 yard #6 ea 04/16/22 off loading boot (Aircast off #1 ea 04/16/22 loading boot) calcium alginate ag #5 ea 04/23/22 sterile gauze #40 ea 04/23/22 oxycodone 5 mg tablet 10 mg (2 x 5 mg) PO Q4H #15 tabs 11/16/22 ondansetron 4 mg disintegrating 4 mg translingual Q6H PRN Nausea 10/18/24 tablet And Vomiting #30 tabs ondansetron HCl 4 mg tablet 4 mg PO Q8H PRN nausea and 10/26/24 vomiting #10 tabs metoclopramide HCl 10 mg tablet 10 mg PO Q8H PRN nausea and 10/28/24 (Reglan) vomiting #30 tabs Allergies Allergy/AdvReac Type Severity Reaction Status Date / Time morphine AdvReac Intermediate Hallucinati Verified 12/16/24 07:53 ons Review of Systems Review of Systems: Yes all other systems are reviewed and are negative Constitutional: Constitutional: Reports as per [facility] Past Medical History Attestation statement: The following information was validated with the patient. Source: old records reviewed Medical History Obesity (BMI 30-39.9) PAD (peripheral artery disease) Afib Amputation of left great toe Lower limb amputation, great toe CAD (coronary artery disease) DMII (diabetes mellitus, type 2) Orthopedic hardware present Hyperglycemia Cellulitis Asthma Diabetes Hypertension FHx: bilateral hip replacements Surgical History History of amputation of toe (07/29/22) History of amputation of great toe (01/07/22) History of back surgery History of neck surgery History of ankle surgery H/O bilateral hip replacements S/P quadruple vessel bypass Family History Family History Other No family history of coronary artery disease Social History Social History Household Members: Spouse Household Members Other:: 3 Housing: House Are you a primary dog daycare provider to a significant other at home: No Do you presently have visiting nurse or other home services: No Alcohol intake: never Comment: refused bed or chair alarm Patient Tobacco Use Status: Former Tobacco user Tobacco use type: Cigarette Smoked in Last 30 Days: No Second Hand Smoke Exposure: No Use of substances other than those prescribed or required for medical reasons: No Advance Directives: No Advance Directives Information Provided: Yes Advance Directives Date on File: 01/04/22 service: No Current occupational status: disabled Physical Exam Vital Signs: Vital Signs: Last Vital Signs Temp 98.9 F 12/16/24 07:48 Pulse 114 H 12/16/24 11:46 Resp 29 H 12/16/24 11:46 BP 165/67 H 12/16/24 11:46 Pulse Ox 100 12/16/24 07:48 O2 Del Method Room Air 12/16/24 11:46 BMI result Body Mass Index 36.4 Const: General: cooperative, healthy appearing and no acute distress Orientation/consciousness: patient oriented x3 Limitations: no limitations HEENT: Head: Yes normal to inspection and Yes atraumatic Ears: hearing grossly normal bilaterally General nose exam: Normal external nose present Face and sinus: Yes normal facial exam Eyes: General: appearance normal, both eyes and all related structures EOM: EOMs intact bilaterally Neck: Neck: Yes normal visual inspection and Yes no meningeal signs Resp: Effort & Inspection: normal respiratory effort and no respiratory distress Auscultation: clear to auscultation bilaterally Cardio: Rate: regular rate Heart sounds: S1 normal heart sound present and S2 normal heart sound present GI: Inspection: Yes normal to inspection Palpation (GI): Soft to palpation, Tenderness to palpation present (GI) in the epigastrum; with no rebound tenderness, no guarding and not rigid : General: Yes no CVA tenderness Back/Spine/Pelvis: Back: no CVA tenderness Skin: Rashes: no rashes Wounds: no wounds Neuro: General: patient oriented x3, tone normal and no meningeal signs Cranial nerves: Yes CN's II-XII intact bilaterally Gait exam (Neuro): Normal gait present Extrem: General: Yes normal to inspection Course Course Course Narrative: -0902--leukocytosis of 13.1 > still low suspicion for severe sepsis. No evidence of infectious etiology at this time. Anion gap of 20. Glucose 363. Beta hydroxybutyrate elevated to 3.00 > we will give 1L NS & 1L LR as well as 5 units IV insulin and re-evaluate -UA not infected however with greater than 160 ketones. -viral testing negative -929--pH 7.4, bicarb 15 -1021--lactic acidosis of 2.7 likely from DKA rather than severe sepsis -120--repeat BMP with anion gap of 16. CO2 18. Glucose 265 > additional L LR ordered. Plan to admit for further management Medications Administered Discontinued Medications Generic Name Dose Route Start Last Admin Trade Name Freq PRN Reason Stop Dose Admin Famotidine 20 mg 12/16/24 08:27 12/16/24 08:45 Famotidine/Pf 20 Mg/2 Ml Vial IVPUSH 12/16/24 08:28 20 mg ONCE ONE Administration Hydromorphone HCl 1 mg 12/16/24 09:06 12/16/24 09:21 Hydromorphone Hcl 1 Mg/Ml Syringe IVPUSH 12/16/24 09:07 1 mg ONCE ONE Administration Protocol Sodium Chloride 1,000 mls @ 999 mls/hr 12/16/24 08:30 12/16/24 11:10 Ns IV 12/16/24 09:30 Infused .Q1H1M WILLIAM Infusion Lactated Ringer's 1,000 mls @ 999 mls/hr 12/16/24 09:00 12/16/24 11:10 Lr IV 12/16/24 10:00 Infused .Q1H1M WILLIAM Infusion Insulin Human Regular 5 unit 12/16/24 09:06 12/16/24 09:19 Insulin Regular, Human 100 Unit/Ml 10 Ml Vial IVPUSH 12/16/24 09:07 5 unit ONCE ONE Administration Metoclopramide HCl 10 mg 12/16/24 09:27 12/16/24 09:36 Metoclopramide Hcl 10 Mg/2 Ml Vial IVPUSH 12/16/24 09:28 10 mg ONCE ONE Administration Ondansetron HCl 4 mg 12/16/24 08:24 12/16/24 08:45 Ondansetron Hcl 4 Mg/2 Ml Vial IVPUSH 12/16/24 08:25 4 mg ONCE ONE Administration Potassium Chloride 40 meq 12/16/24 09:06 12/16/24 12:01 Potassium Chloride Packet 20 Meq Packet PO 12/16/24 09:07 Not Given ONCE ONE Medical Decision Making Medical Decision Making [facility] Narrative: 928 - 64-year-old male w/PMHx type 2 diabetes on insulin, CAD s/p 4VCABG in 2018, paroxysmal AFib on Xarelto, PID with history of osteomyelitis and amputation left great toe, HTN, mild intermittent asthma, CHF, presenting to the ED via EMS complaining of epigastric abdominal pain, nausea, vomiting and inability to tolerate p.o. since yesterday. On exam mildly tachycardic, writhing around in stretcher, active dry heaving appreciated, abdomen soft with epigastric tenderness, no rebound or guarding. Concern for PUD vs gastritis vs DKA/hyperglycemia vs cyclical vomiting vs food poisoning vs viral illness. Low suspicion for severe sepsis at this time Plan: EKG, labs, UA, tox screen, viral testing, IVF, antiemetics, pain control, re-evaluate. No need for imaging at this time Please refer to course for remaining clinical decision making, interpretation of labs/imaging results, and discussions with consultants and/or family members. Differential Diagnosis Differential Diagnoses: The differential diagnosis associated with the presentation includes As above Admission/Observation Consideration of admission/observation: Escalation of care including admission/observation considered Consult Healthcare Provider Management of the patient was discussed with: Hospitalist Lab Data [facility] Lab Attestation statement: I reviewed the patient's lab results. 12/16/24 07:44 12/16/24 11:20 Labs: Lab Results 12/16/24 12/16/24 12/16/24 Range/Units 07:44 08:13 09:11 WBC 13.1 H (4.8-10.8) X10*3/uL RBC 4.96 (4.60-5.80) X10*6/uL Hgb 14.7 (14.0-18.0) g/dl Hct 42.1 (42.0-52.0) % MCV 84.9 (80.0-98.0) fL MCH 29.6 (27.0-33.0) pg MCHC 34.9 (31.0-36.0) g/dl RDW 13.9 (11.0-16.0) % Plt Count 214 D (160-400) X10*3/uL MPV 10.9 (9.4-12.4) fL Immature Gran % (Auto) 0.5 H (0.0-0.4) % Neut % (Auto) 88.9 H (45-73) % Lymph % (Auto) 7.5 L (20-40) % Spink % (Auto) 1.8 L (2-11) % Eos % (Auto) 0.8 (0-4) % Baso % (Auto) 0.5 (0-2) % Lymph # (Auto) 1.0 L (1.2-4.9) X10*3/uL Spink # (Auto) 0.2 (0.1-1.2) X10*3/uL Eos # (Auto) 0.1 (0.0-0.4) X10*3/uL Baso # (Auto) 0.1 (0.0-0.2) X10*3/uL Abs Immat Gran (auto) 0.07 H (0.00-0.03) X10*3/uL Absolute Neuts (auto) 11.7 H (2.0-8.3) x10*3/uL Absolute Nucleated RBC 0.000 (0.0-0.012) X10*3/uL Nucleated RBC % (auto) 0.0 (0.0-0.2) /100WBC Smear Tech's Comments VERIFIED VBG pH (7.32-7.43) VBG pCO2 mmHg VBG pO2 mmHg VBG HCO3 (22-26) mmol/L VBG O2 Saturation % VBG Base Excess mmol/L Sodium 140 (135-145) mmol/L Potassium 3.8 (3.3-5.1) mmol/L Chloride 108 (96-108) mmol/L Carbon Dioxide 16 L (22-29) mmol/L Anion Gap 20 (12-20) BUN 9 (9-16) mg/dL Creatinine 0.80 (0.5-1.4) mg/dL Estim Creat Clear Calc 111.4 Estimated GFR > 60 POC Glucose (60-115) mg/dL Random Glucose 363 H* (60-115) mg/dL Lactic Acid 2.7 H* (0.5-2.0) mmol/L Calcium 9.2 D (8.4-10.2) mg/dL Magnesium 2.0 (1.6-2.6) mg/dL Total Bilirubin 0.6 (0.0-1.0) mg/dL AST 19 (5-37) U/L ALT 8 (0-40) U/L Alkaline Phosphatase 85 (39-117) U/L Total Protein 7.5 (6.5-8.0) g/dL Albumin 4.2 (3.5-5.0) g/dL Lipase < 4 L (8-78) U/L Beta-Hydroxybutyrate 3.00 H (0.02-0.27) mmol/L Urine Color Yellow Urine Appearance Clear Urine pH 5.5 (5.0-9.0) Ur Specific [place] >= 1.030 H (1.005-1.025) Urine Protein 100 (2+) H (Neg-Trace) mg/dL Urine Glucose (UA) >=1000 H (Negative) mg/dL Urine Ketones >=160 (Negative) mg/dL Urine Blood Small (1+) H (Negative) Urine Nitrite Negative (Negative) Ur Leukocyte Esterase Negative (Negative) Urine RBC 0-2 (0-2) /HPF Urine WBC 0-5 (0-5) /HPF Ur Squamous Epith Cells 0-2 (0-2) /HPF Urine Bacteria None Seen (None Seen) Hyaline Casts 0-2 (0-2) /LPF Urine Opiates Screen Not Detected (Not Detect) Ur Buprenorphine Scrn Not Detected (Not Detect) ng/mL Ur Oxycodone Screen Positive H (Not Detect) ng/mL Urine Methadone Screen Not Detected (Not Detect) ng/mL Urine Fentanyl Screen Not Detected (Not Detect) Ur Barbiturates Screen Not Detected (Not Detect) Ur Phencyclidine Scrn Not Detected (Not Detect) Ur Amphetamines Screen Not Detected (Not Detect) U Benzodiazepines Scrn Not Detected (Not Detect) Urine Cocaine Screen Not Detected (Not Detect) U Marijuana (THC) Screen POSITIVE H (Not Detect) Influenza Type A (PCR) NEGATIVE (Negative) Influenza Type B (PCR) NEGATIVE (Negative) RSV RNA Qual (PCR) NEGATIVE (Negative) SARS-CoV-2 RNA (RT-PCR) NEGATIVE (Negative) 12/16/24 12/16/24 12/16/24 Range/Units 09:19 10:15 11:20 WBC (4.8-10.8) X10*3/uL RBC (4.60-5.80) X10*6/uL Hgb (14.0-18.0) g/dl Hct (42.0-52.0) % MCV (80.0-98.0) fL MCH (27.0-33.0) pg MCHC (31.0-36.0) g/dl RDW (11.0-16.0) % Plt Count (160-400) X10*3/uL MPV (9.4-12.4) fL Immature Gran % (Auto) (0.0-0.4) % Neut % (Auto) (45-73) % Lymph % (Auto) (20-40) % Spink % (Auto) (2-11) % Eos % (Auto) (0-4) % Baso % (Auto) (0-2) % Lymph # (Auto) (1.2-4.9) X10*3/uL Spink # (Auto) (0.1-1.2) X10*3/uL Eos # (Auto) (0.0-0.4) X10*3/uL Baso # (Auto) (0.0-0.2) X10*3/uL Abs Immat Gran (auto) (0.00-0.03) X10*3/uL Absolute Neuts (auto) (2.0-8.3) x10*3/uL Absolute Nucleated RBC (0.0-0.012) X10*3/uL Nucleated RBC % (auto) (0.0-0.2) /100WBC Smear Tech's Comments VBG pH 7.47 H (7.32-7.43) VBG pCO2 20 mmHg VBG pO2 56 mmHg VBG HCO3 15 L (22-26) mmol/L VBG O2 Saturation 89.0 % VBG Base Excess -5.8 mmol/L Sodium 142 (135-145) mmol/L Potassium 3.9 (3.3-5.1) mmol/L Chloride 112 H (96-108) mmol/L Carbon Dioxide 18 L (22-29) mmol/L Anion Gap 16 (12-20) BUN 8 L (9-16) mg/dL Creatinine 0.73 (0.5-1.4) mg/dL Estim Creat Clear Calc 122.0 Estimated GFR > 60 POC Glucose 243 H (60-115) mg/dL Random Glucose 265 H (60-115) mg/dL Lactic Acid (0.5-2.0) mmol/L Calcium 9.3 (8.4-10.2) mg/dL Magnesium (1.6-2.6) mg/dL Total Bilirubin (0.0-1.0) mg/dL AST (5-37) U/L ALT (0-40) U/L Alkaline Phosphatase (39-117) U/L Total Protein (6.5-8.0) g/dL Albumin (3.5-5.0) g/dL Lipase (8-78) U/L Beta-Hydroxybutyrate (0.02-0.27) mmol/L Urine Color Urine Appearance Urine pH (5.0-9.0) Ur Specific [place] (1.005-1.025) Urine Protein (Neg-Trace) mg/dL Urine Glucose (UA) (Negative) mg/dL Urine Ketones (Negative) mg/dL Urine Blood (Negative) Urine Nitrite (Negative) Ur Leukocyte Esterase (Negative) Urine RBC (0-2) /HPF Urine WBC (0-5) /HPF Ur Squamous Epith Cells (0-2) /HPF Urine Bacteria (None Seen) Hyaline Casts (0-2) /LPF Urine Opiates Screen (Not Detect) Ur Buprenorphine Scrn (Not Detect) ng/mL Ur Oxycodone Screen (Not Detect) ng/mL Urine Methadone Screen (Not Detect) ng/mL Urine Fentanyl Screen (Not Detect) Ur Barbiturates Screen (Not Detect) Ur Phencyclidine Scrn (Not Detect) Ur Amphetamines Screen (Not Detect) U Benzodiazepines Scrn (Not Detect) Urine Cocaine Screen (Not Detect) U Marijuana (THC) Screen (Not Detect) Influenza Type A (PCR) (Negative) Influenza Type B (PCR) (Negative) RSV RNA Qual (PCR) (Negative) SARS-CoV-2 RNA (RT-PCR) (Negative) Independent Interpretation I performed an independent interpretation of an: EKG Radiology Impression Discussion of test interpretation with radiology: I have reviewed the radiologist's reading. Independent Historian Clinical information obtained from an independent historian. History obtained from or confirmed by: EMS External Record Review External record reviewed: Inpatient record, Office record, Outpatient record, Prior outpatient labs, Prior outpatient radiology, Primary care record and Outside ED record Tests considered The following testing was considered but not selected: As above Prescription Management I considered prescription management with: Pain Medication and Antibiotic Chronic Conditions Patient?s care impacted by: Diabetes Social Determinants Patient?s care significantly limited by Social Determinants of Health including: Problems related to primary support group and Other Social Determinant of Health Critical Care Time Critical Care Time Critical Care Time: Yes Total Critical Care Time: 50 Attestation: I have personally provided critical care time exclusive of time spent on separately billable procedures. Time includes review of lab data, radiology results, discussion with consultants, and monitoring for potential decompensation. Intervention performed as documented. Discharge Plan Discharge Clinical Impression: DKA (diabetic ketoacidosis) Patient Disposition: Admitted As Inpatient Print Language: Barbadian
[2024-12-16] MEDS: 0.9 % Sodium Chloride 1,000 ML 999 ML IV (08:45)
[2024-12-16] MEDS: Famotidine/PF 20 MG/2 ML VIAL IVPUSH (08:45)
[2024-12-16] MEDS: ondansetron HCL 4 MG/2 ML VIAL IVPUSH (08:45)
[2024-12-16 08:47] LABS: Alanine Aminotransferase 8 U/L (0-40); Albumin Level 4.2 g/dL (3.5-5.0); Anion Gap 20 (12-20); Aspartate Amino Transferase 19 U/L (5-37); Bilirubin Total 0.6 mg/dL (0.0-1.0); Blood Urea Nitrogen 9 mg/dL (9-16); Calcium 9.2 mg/dL (8.4-10.2); Carbon Dioxide 16 mmol/L (22-29); Chloride 108 mmol/L (96-108); Creatinine Clr Calc Pharmacy 111.4; Estimated Glomerular Filt Rate > 60; Lipase < 4 U/L (8-78); Potassium 3.8 mmol/L (3.3-5.1); Sodium 140 mmol/L (135-145); Total Protein 7.5 g/dL (6.5-8.0)
[2024-12-16 08:48] LABS: Glucose Random 363 mg/dL (60-115)
--- OUTSIDE RECORDS SUMMARY | 2024-12-16 08:48 | XMS_ITS ---
Author Organization [facility] Address Unknown Allergies, Adverse Reactions, Alerts Substance Reaction Status Noted Date Resolved Date Morphine active 07/06/2021 Acetaminophen Cutaneous reactions active 07/06/2021 Problems Problem Status Start Date End Date UNSPECIFIED DISLOCATION OF L EFT HIP, SEQUELA (Primary) (S73.005S - ICD-10-CM) ACTIVE 07/07/2021 PRESENCE OF UNSPECIFIED IRA FICIAL HIP JOINT (Z96.649 - ICD-10-CM) ACTIVE 07/07/2021 OTHER SPECIFIED HEALTH STATUS (Z78.9 - ICD-10-CM) ACTI VE 07/07/2021 WEAKNESS (R53.1 - ICD-10-CM) ACTIVE 07/07/2021 OTHER REDUCED MOBILITY (Z74.09 - ICD-10-CM) ACTIVE 07/07/2021 OTHER SPECIFIED POSTPROCEDUR AL STATES (Z98.890 - ICD-10-CM) ACTIVE 07/07/2021 PAIN, UNSPECIFIED (R52 - ICD-10-CM) ACTIVE 07/07 FOOT DROP, LEFT FOOT (M21.372 - ICD-10-CM) ACTIVE 07/07/2021 ESSENTIAL (PRIMARY) HYPERTENSION (I10 - ICD-10-CM) ACT ERASTO 07/07/2021 TYPE 2 DIABETES MELLITUS WIT HOUT COMPLICATIONS (E11.9 - ICD-10-CM) ACTIVE 07/07/2021 Encounters Encounter Performer Performer Role Encounter Diagnoses Location Date Discharge - [facility] to home [facility] self care [facility] 12:14 am EDT - 11:26 pm EDT Social History
[2024-12-16 08:51] LABS: SLIDE REVIEW VERIFIED
[2024-12-16 08:57] LABS: Alkaline Phosphatase 85 U/L (39-117)
[2024-12-16] MEDS: Lactated Ringers 1,000 ML 999 ML IV ×2 (08:59→13:00)
[2024-12-16 09:01] LABS: Influenza A PCR NEGATIVE (Negative); Influenza B PCR NEGATIVE (Negative); Resp Syncy Virus RNA Qual PCR NEGATIVE (Negative); SARS COV2 PCR INHOUSE NEGATIVE (Negative)
[2024-12-16 09:05] LABS: Amphetamine Screen Urine Not Detected (Not Detect); Barbiturates, Urine Not Detected (Not Detect); Benzodiazepines Screen Urine Not Detected (Not Detect); Buprenorphine Scr Not Detected (Not Detect); Cannabinoid Screen Urine POSITIVE (Not Detect); Cocaine Screen Urine Not Detected (Not Detect); Fentanyl, urine Not Detected (Not Detect); Methadone Screen, Urine Not Detected (Not Detect); Opiate Screen Urine Not Detected (Not Detect); Oxycodone Screen Urine Positive (Not Detect); Phencyclidine Screen Urine Not Detected (Not Detect)
[2024-12-16] MEDS: Insulin Regular, Human 100 UNIT/ML 10 ML VIAL IVPUSH (09:19)
[2024-12-16] MEDS: HYDROmorphone HCl 1 MG/ML SYRINGE IVPUSH ×3 (09:21→18:30)
[2024-12-16 09:22] LABS: Venous Blood Gas Refer to POC result
[2024-12-16 09:22] LABS: VBG Base Excess -5.8 mmol/L; VBG HCO3 15 mmol/L (22-26); VBG pCO2 20 mmHg; VBG pH 7.47 (7.32-7.43); VBG pO2 56 mmHg
[2024-12-16] MEDS: Metoclopramide HCl 10 MG/2 ML VIAL IVPUSH ×2 (09:36→21:02)
[2024-12-16 09:37] LABS: Lactic Acid 2.7 mmol/L (0.5-2.0)
[2024-12-16 10:18] LABS: Glucose, Whole Blood 243 mg/dL (60-115)
[2024-12-16 11:18] LABS: Reflex Lactate? Lactic Acid Added
[2024-12-16 11:44] LABS: Anion Gap 16 (12-20); Blood Urea Nitrogen 8 mg/dL (9-16); Calcium 9.3 mg/dL (8.4-10.2); Carbon Dioxide 18 mmol/L (22-29); Chloride 112 mmol/L (96-108); Estimated Glomerular Filt Rate > 60; Glucose Random 265 mg/dL (60-115); Potassium 3.9 mmol/L (3.3-5.1); Sodium 142 mmol/L (135-145)
[2024-12-16 12:21] LABS: ~Lactic Acid-LAB USE ONLY 3.1 mmol/L (0.5-2.0)
--- NOTE | 2024-12-16 12:35 | P.HPHOSP_ITS ---
History of Present Illness Date of Service: 12/16/24 Chief Complaint: n/v 63M PMH DM with neuropathy and gastroparesis, cad s/p CABG, pafib, pvd, ht, unspecified chf, presented with n/v. Patient states symptoms have been ongoing for 2 days. Inability to tolerate any p.o., associated with nausea and vomiting and severe mid abdominal pain. Patient had similar episode in 10/15/2024 associated with diabetic ketoacidosis that was euglycemic due to Farxiga which has since been discontinued. He reports feeling well in the interim. in ED noted to have keturia, ketoacidemia with alkalotic ph of 7.47, no significant AG (20), glucose in 300s. Review of Systems 2 Review of Systems: Yes all other systems are reviewed and are negative [facility] Medical History Obesity (BMI 30-39.9) PAD (peripheral artery disease) Afib Amputation of left great toe Lower limb amputation, great toe CAD (coronary artery disease) DMII (diabetes mellitus, type 2) Orthopedic hardware present Hyperglycemia Cellulitis Asthma Diabetes Hypertension FHx: bilateral hip replacements Family History Other No family history of coronary artery disease Surgical History History of amputation of toe (07/29/22) History of amputation of great toe (01/07/22) History of back surgery History of neck surgery History of ankle surgery H/O bilateral hip replacements S/P quadruple vessel bypass Social History Household Members: Spouse Household Members Other:: 3 Housing: House Are you a primary direct care worker to a significant other at home: No Do you presently have visiting nurse or other home services: No Alcohol intake: never Comment: refused bed or chair alarm Patient Tobacco Use Status: Former Tobacco user Tobacco use type: Cigarette Smoked in Last 30 Days: No Second Hand Smoke Exposure: No Use of substances other than those prescribed or required for medical reasons: No Advance Directives: No Advance Directives Information Provided: Yes Advance Directives Date on File: 01/04/22 service: No Current occupational status: disabled Meds Allergies Allergy/AdvReac Type Severity Reaction Status Date / Time morphine AdvReac Intermediate Hallucinati Verified 12/16/24 07:53 ons Active Medications: Current Medications Dextrose (Dextrose 50 % 25 Gm/50 Ml Syringe) 25 gm IVPUSH Q15M PRN; Protocol PRN Reason: per Hypoglycemia Standing Ord. Enoxaparin Sodium (Enoxaparin Sodium 40 Mg/0.4 Ml Syringe) 40 mg SUBCUT Q24H WILLIAM Glucose (Glucose Gel 15 Gm Gel..Gram.) 15 gm PO Q15M PRN; Protocol PRN Reason: per Hypoglycemia Standing Ord. Hydromorphone HCl (Hydromorphone Hcl 1 Mg/Ml Syringe) 1 mg IVPUSH Q3H PRN; Protocol PRN Reason: Pain, Severe (Pain Scale 7-10) Lactated Ringer's (Lr) 1,000 mls @ 999 mls/hr IV .Q1H1M WILLIAM Stop: 12/16/24 13:00 Lactated Ringer's (Lr) 1,000 mls @ 80 mls/hr IVCONT .[id number] [facility] Insulin Glargine (Insulin Glargine,Hum.Rec.Anlog 100 Unit/Ml 10 Ml Vial) 20 unit SUBCUT BID [facility] Insulin Human Lispro (Insulin Lispro 100 Unit/Ml 3 Ml Vial) 0 unit SUBCUT QIDACHS [facility]; Protocol Metoclopramide HCl (Metoclopramide Hcl 10 Mg/2 Ml Vial) 5 mg IVPUSH Q6H PRN PRN Reason: Nausea and Vomiting Home Medications ?Medication ?Instructions ?Recorded ?Confirmed ?Last Taken ?Type ezetimibe 10 mg tablet 1 tab PO DAILY 01/03/22 10/14/24 12/14/24 History gabapentin 300 mg capsule 1 cap PO TID 01/03/22 10/14/24 12/14/24 History insulin glargine 100 unit/mL 10 unit subcut BID 01/03/22 10/14/24 12/14/24 History subcutaneous solution (Lantus U-100 Insulin) isosorbide mononitrate 30 mg 1 tab PO DAILY 01/03/22 10/14/24 12/14/24 History tablet,extended release 24 hr loratadine 10 mg tablet 1 tab PO DAILY 01/03/22 10/14/24 12/14/24 History losartan 25 mg tablet 1 tab PO DAILY 01/03/22 10/14/24 12/14/24 History meclizine 25 mg tablet 1 tab PO TID 01/03/22 10/14/24 12/14/24 History pantoprazole 40 mg tablet,delayed 1 tab PO BID@0630,1630 01/03/22 10/14/24 12/14/24 History release rosuvastatin 40 mg tablet 1 tab PO BEDTIME 01/03/22 10/14/24 12/14/24 History aspirin 81 mg tablet,delayed 1 tab PO DAILY 08/04/22 10/14/24 12/14/24 History release furosemide 20 mg tablet 1 tab PO BID 11/13/22 10/14/24 12/14/24 History venlafaxine 100 mg tablet 1 tab PO BID 11/13/22 10/14/24 12/14/24 History metoprolol succinate 25 mg 25 mg PO DAILY 10/14/24 10/14/24 12/14/24 History tablet,extended release 24 hr dapagliflozin propanediol 10 mg 10 mg PO DAILY 12/16/24 12/14/24 History tablet (Farxiga) insulin lispro 100 unit/mL See Protocol subcut QIDACHS 12/16/24 12/14/24 History subcutaneous solution oxycodone 10 mg tablet 10 mg PO Q4H 12/16/24 12/14/24 History Physical Exam 2 Vital Signs and Narrative: Vital Signs: Last Vital Signs Temp 98.9 F 12/16/24 07:48 Pulse 114 H 12/16/24 11:46 Resp 29 H 12/16/24 11:46 BP 165/67 H 12/16/24 11:46 Pulse Ox 100 12/16/24 07:48 O2 Del Method Room Air 12/16/24 11:46 BMI result Body Mass Index 36.4 General: AO X 3, in discomfort, nauseous Resp: CTA bilateral, no accessory muscles used CVS: S1,S2,RRR GI: soft, non tender, non distended Neuro: motor grossly intact, alert Psych: appropriate affect, appropriate insight Results Labs 12/16/24 07:44 12/16/24 16:26 Labs: Laboratory Results - last 24 hr 12/16/24 12/16/24 12/16/24 07:44 08:13 09:11 MCV 84.9 MCH 29.6 MCHC 34.9 RDW 13.9 Plt Count 214 D MPV 10.9 Immature Gran % (Auto) 0.5 H Neut % (Auto) 88.9 H Lymph % (Auto) 7.5 L Keith % (Auto) 1.8 L Eos % (Auto) 0.8 Baso % (Auto) 0.5 Lymph # (Auto) 1.0 L Keith # (Auto) 0.2 Eos # (Auto) 0.1 Baso # (Auto) 0.1 Abs Immat Gran (auto) 0.07 H Absolute Neuts (auto) 11.7 H Absolute Nucleated RBC 0.000 Nucleated RBC % (auto) 0.0 Smear Tech's Comments VERIFIED VBG pH VBG pCO2 VBG pO2 VBG HCO3 VBG O2 Saturation VBG Base Excess Anion Gap 20 Estim Creat Clear Calc 111.4 Estimated GFR > 60 POC Glucose Random Glucose 363 H* Lactic Acid 2.7 H* Lactic Acid F/U @ 2Hr Calcium 9.2 D Magnesium 2.0 Total Bilirubin 0.6 AST 19 ALT 8 Alkaline Phosphatase 85 Total Protein 7.5 Albumin 4.2 Lipase < 4 L Beta-Hydroxybutyrate 3.00 H Urine Color Yellow Urine Appearance Clear Urine pH 5.5 Ur Specific [place] >= 1.030 H Urine Protein 100 (2+) H Urine Glucose (UA) >=1000 H Urine Ketones >=160 Urine Blood Small (1+) H Urine Nitrite Negative Ur Leukocyte Esterase Negative Urine RBC 0-2 Urine WBC 0-5 Ur Squamous Epith Cells 0-2 Urine Bacteria None Seen Hyaline Casts 0-2 Urine Opiates Screen Not Detected Ur Buprenorphine Scrn Not Detected Ur Oxycodone Screen Positive H Urine Methadone Screen Not Detected Urine Fentanyl Screen Not Detected Ur Barbiturates Screen Not Detected Ur Phencyclidine Scrn Not Detected Ur Amphetamines Screen Not Detected U Benzodiazepines Scrn Not Detected Urine Cocaine Screen Not Detected U Marijuana (THC) Screen POSITIVE H Influenza Type A (PCR) NEGATIVE Influenza Type B (PCR) NEGATIVE RSV RNA Qual (PCR) NEGATIVE SARS-CoV-2 RNA (RT-PCR) NEGATIVE 12/16/24 12/16/24 12/16/24 09:19 10:15 11:20 MCV MCH MCHC RDW Plt Count MPV Immature Gran % (Auto) Neut % (Auto) Lymph % (Auto) Keith % (Auto) Eos % (Auto) Baso % (Auto) Lymph # (Auto) Keith # (Auto) Eos # (Auto) Baso # (Auto) Abs Immat Gran (auto) Absolute Neuts (auto) Absolute Nucleated RBC Nucleated RBC % (auto) Smear Tech's Comments VBG pH 7.47 H VBG pCO2 20 VBG pO2 56 VBG HCO3 15 L VBG O2 Saturation 89.0 VBG Base Excess -5.8 Anion Gap 16 Estim Creat Clear Calc 122.0 Estimated GFR > 60 POC Glucose 243 H Random Glucose 265 H Lactic Acid Lactic Acid F/U @ 2Hr Calcium 9.3 Magnesium Total Bilirubin AST ALT Alkaline Phosphatase Total Protein Albumin Lipase Beta-Hydroxybutyrate Urine Color Urine Appearance Urine pH Ur Specific [place] Urine Protein Urine Glucose (UA) Urine Ketones Urine Blood Urine Nitrite Ur Leukocyte Esterase Urine RBC Urine WBC Ur Squamous Epith Cells Urine Bacteria Hyaline Casts Urine Opiates Screen Ur Buprenorphine Scrn Ur Oxycodone Screen Urine Methadone Screen Urine Fentanyl Screen Ur Barbiturates Screen Ur Phencyclidine Scrn Ur Amphetamines Screen U Benzodiazepines Scrn Urine Cocaine Screen U Marijuana (THC) Screen Influenza Type A (PCR) Influenza Type B (PCR) RSV RNA Qual (PCR) SARS-CoV-2 RNA (RT-PCR) 12/16/24 11:54 MCV MCH MCHC RDW Plt Count MPV Immature Gran % (Auto) Neut % (Auto) Lymph % (Auto) Keith % (Auto) Eos % (Auto) Baso % (Auto) Lymph # (Auto) Keith # (Auto) Eos # (Auto) Baso # (Auto) Abs Immat Gran (auto) Absolute Neuts (auto) Absolute Nucleated RBC Nucleated RBC % (auto) Smear Tech's Comments VBG pH VBG pCO2 VBG pO2 VBG HCO3 VBG O2 Saturation VBG Base Excess Anion Gap Estim Creat Clear Calc Estimated GFR POC Glucose Random Glucose Lactic Acid Lactic Acid F/U @ 2Hr 3.1 H* Calcium Magnesium Total Bilirubin AST ALT Alkaline Phosphatase Total Protein Albumin Lipase Beta-Hydroxybutyrate Urine Color Urine Appearance Urine pH Ur Specific [place] Urine Protein Urine Glucose (UA) Urine Ketones Urine Blood Urine Nitrite Ur Leukocyte Esterase Urine RBC Urine WBC Ur Squamous Epith Cells Urine Bacteria Hyaline Casts Urine Opiates Screen Ur Buprenorphine Scrn Ur Oxycodone Screen Urine Methadone Screen Urine Fentanyl Screen Ur Barbiturates Screen Ur Phencyclidine Scrn Ur Amphetamines Screen U Benzodiazepines Scrn Urine Cocaine Screen U Marijuana (THC) Screen Influenza Type A (PCR) Influenza Type B (PCR) RSV RNA Qual (PCR) SARS-CoV-2 RNA (RT-PCR) Assessment and Plan (1) Diabetes: Status: Acute Plan 63M PMH DM with neuropathy and gastroparesis, cad s/p CABG, pafib, pvd, htn, unspecified chf, presented with n/v Abdominal pain and nausea and vomiting suspect primarily starvation ketoacidosis due to diabetic gastroparesis, may be small element of DKA npo, ivf, prokinetics, pain control, basal bolus insulin, ppi, monitor bmp closely advance diet as tolerated pafib xarelto CAD asa unspecified chf monitor while hydrating pvd asa htn losartan dvt prophylaxis - xarelto full code patient not tolerating po, singificant ketoacidemia , exprected atleast 2 midnights inpatient Quality Stroke Does the patient have a stroke diagnosis?: No VTE Prior VTE?: No VTE Risk Level:: Medical - moderate - high VTE Device Contraindication: Treatment Not Indicated VTE Drug Contraindication: N/A - Med Ordered
[2024-12-16] MEDS: Prochlorperazine Edisylate 10 MG/2 ML VIAL 5 MG IVPUSH (13:00)
[2024-12-16] MEDS: Lactated Ringers 1,000 ML 80 ML IVCONT (13:04)
[2024-12-16 13:58] LABS: Reflex Lactate? 2 Y
--- NOTE | 2024-12-16 14:04 | PC.NURSE ---
PAIN AND NAUSEA MOSTLY RESOLVED. AWARE OF PLAN FOR ADMISSION. AMBULATORY, INDEPENDENT, ABLE TO MAKE NEEDS KNOWN. NSR ON MONITOR.
--- NOTE | 2024-12-16 15:02 | PHA.MEDREC ---
Addendum entered by Idania Elliott [facility] 12/16/24 19:29: reviewed by [facility]. Addendum entered by Magaly Lange 12/16/24 19:15: Following up from morning med rec. Spoke to patients Holli at bedside. had a list of patient medications and was able to confirm all of patient med list. Original Note: Pharmacy Consult ? Medication Reconciliation Pharmacy has completed the medication reconciliation. Spoke with patient and he did not know what he was taking at this time except for his Lantus Solostar which he states he is injecting 10 units in the morning and bedtime and the Insulin Lispro and states he is testing his sugars 4 times a day, before meals and bedtime. The patient states he brought a list in but looking in patients chart we have no list for him, the patient states we can call his to confirm the medications; I called the patients and she confirmed she will be in with a med list around 1700. I partially confirmed the med rec based off claims, afternoon med rec will confirm the rest when patients comes in.
[2024-12-16 16:43] LABS: Glucose, Whole Blood 216 mg/dL (60-115)
[2024-12-16] MEDS: Insulin Lispro 100 UNIT/ML 3 ML VIAL SUBCUT ×2 (16:48→23:24)
[2024-12-16 16:50] LABS: Anion Gap 14 (12-20); Blood Urea Nitrogen 7 mg/dL (9-16); Carbon Dioxide 20 mmol/L (22-29); Chloride 112 mmol/L (96-108); Estimated Glomerular Filt Rate > 60; Glucose Random 223 mg/dL (60-115); Potassium 4.3 mmol/L (3.3-5.1); Sodium 142 mmol/L (135-145)
[2024-12-16 16:51] LABS: ~Lactic Acid-LAB USE ONLY 1.3 mmol/L (0.5-2.0)
[2024-12-16] MEDS: Rivaroxaban 20 MG TABLET PO (18:32)
[2024-12-16 20:43] LABS: Glucose, Whole Blood 218 mg/dL (60-115)
[2024-12-16 22:51] LABS: Glucose, Whole Blood 213 mg/dL (60-115)
[2024-12-16] MEDS: Insulin Glargine,Hum.rec.anlog 100 UNIT/ML 10 ML VIAL 20 UNIT SUBCUT (23:24)
[2024-12-17] MEDS: Lactated Ringers 1,000 ML 80 ML IVCONT ×2 (02:12→12:54)
[2024-12-17 03:08] VITALS: BP 160/76; PULSE 88; RESP 20; TEMP 36.7; O2SAT 97
[2024-12-17] MEDS: HYDROmorphone HCl 1 MG/ML SYRINGE IVPUSH ×4 (03:26→21:07)
[2024-12-17] MEDS: Pantoprazole Sodium 40 MG/10 ML VIAL IVPUSH (07:04)
[2024-12-17 07:09] LABS: Hematocrit 35.6 % (42.0-52.0); Hemoglobin 12.2 g/dl (14.0-18.0); Mean Corpuscular HGB Conc 34.3 g/dl (31.0-36.0); Mean Corpuscular Hemoglobin 29.7 pg (27.0-33.0); Mean Corpuscular Volume 86.6 fL (80.0-98.0); Platelet Count 271 X10*3/uL (160-400); Red Blood Count 4.11 X10*6/uL (4.60-5.80); Red Cell Distribution Width 14.5 % (11.0-16.0); White Blood Count 11.8 X10*3/uL (4.8-10.8)
[2024-12-17 07:22] LABS: Glucose, Whole Blood 176 mg/dL (60-115)
[2024-12-17 07:32] LABS: Anion Gap 10 (12-20); Blood Urea Nitrogen 9 mg/dL (9-16); Calcium 8.8 mg/dL (8.4-10.2); Carbon Dioxide 23 mmol/L (22-29); Chloride 112 mmol/L (96-108); Creatinine Clr Calc Pharmacy 156.3; Estimated Glomerular Filt Rate > 60; Glucose Random 177 mg/dL (60-115); Potassium 3.7 mmol/L (3.3-5.1); Sodium 141 mmol/L (135-145)
[2024-12-17 08:00] VITALS: BP 157/72; PULSE 50; RESP 16; TEMP 36.7; O2SAT 96
[2024-12-17] MEDS: Ezetimibe 10 MG TABLET PO (08:27)
[2024-12-17] MEDS: Losartan Potassium 25 MG TABLET PO (08:27)
[2024-12-17] MEDS: Metoclopramide HCl 10 MG/2 ML VIAL IVPUSH ×3 (08:27→16:40)
[2024-12-17] MEDS: Isosorbide Mononitrate 30 MG TAB.ER.24H PO (08:27)
[2024-12-17] MEDS: Metoprolol Succinate ER 25 MG TAB.ER.24H PO (08:27)
[2024-12-17] MEDS: Gabapentin 300 MG CAPSULE PO (08:27)
[2024-12-17] MEDS: Insulin Lispro 100 UNIT/ML 3 ML VIAL SUBCUT (08:28)
[2024-12-17] MEDS: Insulin Glargine,Hum.rec.anlog 100 UNIT/ML 10 ML VIAL 20 UNIT SUBCUT (08:29)
[2024-12-17 11:20] LABS: Glucose, Whole Blood 135 mg/dL (60-115)
[2024-12-17 11:43] VITALS: BP 129/60; PULSE 85; RESP 20; TEMP 36.4; O2SAT 94
--- NOTE | 2024-12-17 12:43 | HO.PM.IMPN ---
Subjective Subjective Date of Service: 12/17/24 Interval History: seen and examined this AM reports nausea and pain afraid to attempt po due to this po encouraged Review of Systems Negative except HPI/interval history. Physical Exam Vital Signs: Vital Signs: Last Vital Signs Temp 97.5 F 12/17/24 11:43 Pulse 85 12/17/24 11:43 Resp 20 12/17/24 11:43 BP 129/60 12/17/24 11:43 Pulse Ox 94 12/17/24 11:43 O2 Del Method Room Air 12/17/24 11:43 BMI result Body Mass Index 36.4 Const: Other: Appears to be uncomfortable and in pain Epigastric tenderness without rebound Lungs clear S1-S2 Neuro nonfocal Objective Data Active Medications Acetaminophen (Acetaminophen 325 Mg Tablet) 650 mg PO Q6H PRN PRN Reason: Pain, Mild 1-3,fever,headache Atorvastatin Calcium (Atorvastatin Calcium 40 Mg Tablet) 40 mg PO BEDTIME [facility] Last Admin: 12/16/24 22:00 Dose: Not Given Documented By: RUBA Non-Admin Reason: Patient Refused Calcium Carbonate (Calcium Carbonate 750 Mg Tab.Chew) 750 mg PO Q4H PRN PRN Reason: Heartburn Dextrose (Dextrose 50 % 25 Gm/50 Ml Syringe) 25 gm IVPUSH Q15M PRN; Protocol PRN Reason: per Hypoglycemia Standing Ord. Ezetimibe (Ezetimibe 10 Mg Tablet) 10 mg PO DAILY [facility] Last Admin: 12/17/24 08:27 Dose: 10 mg Documented By: HILARY Gabapentin (Gabapentin 300 Mg Capsule) 300 mg PO TID [facility] Last Admin: 12/17/24 08:27 Dose: 300 mg Documented By: HILARY Glucose (Glucose Gel 15 Gm Gel..Gram.) 15 gm PO Q15M PRN; Protocol PRN Reason: per Hypoglycemia Standing Ord. Hydromorphone HCl (Hydromorphone Hcl 1 Mg/Ml Syringe) 1 mg IVPUSH Q3H PRN; Protocol PRN Reason: Pain, Severe (Pain Scale 7-10) Last Admin: 12/17/24 09:23 Dose: 1 mg Documented By: HILARY Lactated Ringer's (Lr) 1,000 mls @ 80 mls/hr IVCONT .[id number] [facility] Last Admin: 12/17/24 02:12 Dose: 80 mls/hr Documented By: RUBA Insulin Glargine (Insulin Glargine,Hum.Rec.Anlog 100 Unit/Ml 10 Ml Vial) 20 unit SUBCUT BID [facility] Last Admin: 12/17/24 08:29 Dose: 20 unit Documented By: HILARY Insulin Human Lispro (Insulin Lispro 100 Unit/Ml 3 Ml Vial) 0 unit SUBCUT QIDACHS [facility]; Protocol Last Admin: 12/17/24 11:42 Dose: Not Given Documented By: HILARY Non-Admin Reason: No Insulin Coverage Isosorbide Mononitrate (Isosorbide Mononitrate 30 Mg Tab.Er.24h) 30 mg PO DAILY [facility]; Protocol Last Admin: 12/17/24 08:27 Dose: 30 mg Documented By: HILARY Loratadine (Loratadine 10 Mg Tablet) 10 mg PO DAILY [facility] Last Admin: 12/17/24 08:33 Dose: Not Given Documented By: HILARY Non-Admin Reason: Patient Refused Losartan Potassium (Losartan Potassium 25 Mg Tablet) 25 mg PO DAILY [facility]; Protocol Last Admin: 12/17/24 08:27 Dose: 25 mg Documented By: HILARY Magnesium Hydroxide (Milk Of Magnesia 30 Ml Oral.Susp) 30 ml PO DAILY PRN PRN Reason: Constipation Melatonin (Melatonin 3 Mg Tablet) 6 mg PO BEDTIME PRN PRN Reason: Insomnia Metoclopramide HCl (Metoclopramide Hcl 10 Mg/2 Ml Vial) 10 mg IVPUSH TIDAC [facility] Last Admin: 12/17/24 08:27 Dose: 10 mg Documented By: HILARY Metoprolol Succinate (Metoprolol Succinate Er 25 Mg Tab.Er.24h) 25 mg PO DAILY [facility]; Protocol Last Admin: 12/17/24 08:27 Dose: 25 mg Documented By: HILARY Ondansetron HCl (Ondansetron Hcl 4 Mg/2 Ml Vial) 4 mg IVPUSH Q8H PRN PRN Reason: Nausea and Vomiting Pantoprazole Sodium (Pantoprazole Sodium 40 Mg/10 Ml Vial) 40 mg IVPUSH DAILY@0630 [facility] Last Admin: 12/17/24 07:04 Dose: 40 mg Documented By: RUBA Rivaroxaban (Rivaroxaban 20 Mg Tablet) 20 mg PO DAILY@1700 [facility] Last Admin: 12/16/24 18:32 Dose: 20 mg Documented By: RICHARD Sodium Chloride (0.9 % Sodium Chloride Flush 3 Ml Syringe) 3 ml IVFLUSH QSHIFT [facility] Last Admin: 12/17/24 08:28 Dose: Not Given Documented By: HILARY Non-Admin Reason: IV Running Venlafaxine HCl (Venlafaxine Hcl 25 Mg Tablet) 100 mg PO BID [facility] Last Admin: 12/17/24 08:33 Dose: Not Given Documented By: HILARY Non-Admin Reason: Patient Refused Labs 12/17/24 06:33 12/17/24 06:33 Labs: Laboratory Results - last 24 hr 12/16/24 12/16/24 12/16/24 16:26 16:37 20:33 MCV MCH MCHC RDW Plt Count MPV Absolute Nucleated RBC Nucleated RBC % (auto) Anion Gap 14 Estim Creat Clear Calc 133.0 Estimated GFR > 60 POC Glucose 216 H 218 H Random Glucose 223 H Lactic Acid F/U @ 4Hr 1.3 Calcium 9.0 12/16/24 12/17/24 12/17/24 22:47 06:33 07:16 MCV 86.6 MCH 29.7 MCHC 34.3 RDW 14.5 Plt Count 271 D MPV 10.0 Absolute Nucleated RBC 0.000 Nucleated RBC % (auto) 0.0 Anion Gap 10 L Estim Creat Clear Calc 156.3 Estimated GFR > 60 POC Glucose 213 H 176 H Random Glucose 177 H Lactic Acid F/U @ 4Hr Calcium 8.8 12/17/24 11:15 MCV MCH MCHC RDW Plt Count MPV Absolute Nucleated RBC Nucleated RBC % (auto) Anion Gap Estim Creat Clear Calc Estimated GFR POC Glucose 135 H Random Glucose Lactic Acid F/U @ 4Hr Calcium Assessment and Plan (1) Gastroparesis: Status: Acute Plan 63M PMH DM with neuropathy and gastroparesis, cad s/p CABG, pafib, pvd, htn, unspecified chf, presented with n/v Abdominal pain and nausea and vomiting suspect primarily starvation ketoacidosis due to diabetic gastroparesis, possible small dka component which appears resolved npo, ivf, prokinetics, pain control, basal bolus insulin, ppi, monitor bmp closely Started on clears pafib xarelto CAD asa unspecified chf monitor while hydrating pvd asa htn losartan dvt prophylaxis - xarelto full code Reason for ongoing hospitalization: Intolerant of p.o. intake, on IV fluids, IV Protonix, IV analgesics Quality Stroke Does the patient have a stroke diagnosis?: No VTE Prior VTE?: No VTE Risk Level:: Medical - moderate - high VTE Device Contraindication: Treatment Not Indicated VTE Drug Contraindication: N/A - Med Ordered
[2024-12-17 15:15] VITALS: BP 134/64; PULSE 84; RESP 18; TEMP 37.2; O2SAT 95
[2024-12-17 15:20] LABS: Glucose, Whole Blood 122 mg/dL (60-115)
--- NOTE | 2024-12-17 15:26 | MHC.CM.PN ---
This CM attempted to meet with pt, pt declined to meet with this CM.
[2024-12-17] MEDS: Rivaroxaban 20 MG TABLET PO (16:40)
[2024-12-17 19:25] VITALS: BP 135/79; PULSE 73; RESP 18; TEMP 37.1; O2SAT 97
[2024-12-17 20:21] LABS: Glucose, Whole Blood 104 mg/dL (60-115)
[2024-12-17] MEDS: ondansetron HCL 4 MG/2 ML VIAL IVPUSH (21:07)
[2024-12-17] MEDS: 0.9 % Sodium Chloride Flush 3 ML SYRINGE IVFLUSH (21:07)
[2024-12-17 23:32] VITALS: BP 163/73; PULSE 75; RESP 18; TEMP 37.1; O2SAT 96
[2024-12-18] MEDS: Lactated Ringers 1,000 ML 80 ML IVCONT ×2 (01:16→14:28)
[2024-12-18] MEDS: HYDROmorphone HCl 1 MG/ML SYRINGE IVPUSH ×7 (01:16→21:16)
[2024-12-18] MEDS: Metoclopramide HCl 10 MG/2 ML VIAL 5 MG IVPUSH (01:43)
[2024-12-18 04:00] VITALS: BP 135/72; PULSE 73; RESP 18; TEMP 36.7; O2SAT 95
[2024-12-18] MEDS: Pantoprazole Sodium 40 MG/10 ML VIAL IVPUSH (05:53)
[2024-12-18] MEDS: ondansetron HCL 4 MG/2 ML VIAL IVPUSH ×2 (05:53→21:16)
[2024-12-18 07:25] VITALS: BP 146/66; PULSE 77; RESP 18; TEMP 36.6; O2SAT 96
[2024-12-18 07:38] LABS: Glucose, Whole Blood 103 mg/dL (60-115)
[2024-12-18] MEDS: Metoclopramide HCl 10 MG/2 ML VIAL IVPUSH ×3 (08:42→16:54)
[2024-12-18] MEDS: Ezetimibe 10 MG TABLET PO (08:42)
[2024-12-18] MEDS: Isosorbide Mononitrate 30 MG TAB.ER.24H PO (08:42)
[2024-12-18] MEDS: Losartan Potassium 25 MG TABLET PO (08:42)
[2024-12-18] MEDS: Metoprolol Succinate ER 25 MG TAB.ER.24H PO (08:42)
[2024-12-18 10:58] VITALS: BP 132/60; PULSE 69; RESP 18; TEMP 37.1; O2SAT 96
[2024-12-18 11:21] LABS: Glucose, Whole Blood 139 mg/dL (60-115)
--- NOTE | 2024-12-18 12:10 | P.CNGI_ITS ---
History of Present Illness Data of Consult Service Date: 12/18/24 Requesting physician: Roni Hall Primary Care Provider: Marley Rick MD [facility] Reason for consult: Diabetic gastroparesis 64 YM with type 2 diabetes with Gastroparesis and neuropathy, CAD status post CABG in 2018, CHF, PVD, osteomyelitis and left great toe amputation, atrial fibrillation on Xarelto, intermittent asthma seen at [facility] on 12/16/24 with nausea and vomting. Patient stated symptoms have been ongoing for 2 days. Inability to tolerate any p.o., associated with nausea and vomiting and severe mid abdominal pain. Pt reports intermittent episodes of upper abd pain with nausea and vomiting usually associated with diabetic ketoacidosis. Pt states episodes start with nausea and vomiting followed by upper abdominal pain. Abd pain was 8/10 on admission. Pt denies heartburn, dysphagia or recent change in bowel habits - usually has a BM every other day Pt denies smoking or ETOH abuse. He uses Marijuana once a week and denies using it daily Pt reports having an EGD and colon at [facility] - per pt endoscopic evaluation was negative. 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 Patient admitted to [facility] on 10/14/24 with similar episode associated with diabetic ketoacidosis that was euglycemic due to Farxiga which has since been discontinued. He reports feeling well in the interim. In the ED, pt noted to have keturia, ketoacidemia with alkalotic ph of 7.47, no significant AG (20), glucose in 300s. Normal LFTs and lipase. Urine drug screen positive for Marijuna and oxycodone 10/13/[address] SCAN SHOWED: ABDOMINAL AND PELVIC WALL: Anterior abdominal wall subcutaneous injection granulomas are again noted. LIVER AND BILIARY TREE: Hepatic steatosis. GALLBLADDER: Status post cholecystectomy. PANCREAS: Fatty atrophy of the pancreas. PAST GI HISTORY BY REVIEW OF MEDICAL RECORDS: 10/14/24 [address] WAS SEEN BY DR CORNEJO: 63-year-old gentleman with a past medical history of type 2 diabetes, coronary artery disease status post CABG in 2018, history of peripheral vascular disease with history of osteomyelitis and left great toe amputation, atrial fibrillation on Xarelto, intermittent asthma, presented hospital on 10/13 for abdominal pain nausea and vomiting. Gastroenterology consulted for history of coffee-ground emesis and melena. On initial evaluation, he was noted to be tachycardic and hypertensive. Labs were significant for hemoconcentration and leukocytosis with anion gap metabolic acidosis secondary to ketosis and lactic acidosis. Was noted to be in euglycemic DKA likely secondary to Farxiga use. CT abdomen and pelvis with IV contrast did not show any acute gastrointestinal changes. No bowel obstruction. LFTs within normal limits. Lipase not elevated. Currently, patient has been transferred to ICU for insulin drip and frequent POC monitoring. Pt seen at bedside with present. Reports abd pain and nausea is better. Now reporting R sided lower chest pain. Plan Patient with abdominal pain, nausea and vomiting likely in the setting of underlying DKA. Coffee-ground emesis with melena likely secondary to gastritis versus esophagitis versus small Iris-Aggarwal tear. At this time, does not appear to have a clinically significant bleeding to warrant emergent endoscopy. The initial H/H reflects hemoconcentration - baseline Hb appears to be around 12. However, this can certainly be reconsidered if patient continues to be symptomatic despite resolution of DKA. Plan: - Keep HOB elevated to 30-45deg as DKA can predispose to delayed gastric emptying and increased reflux - Resume PO as per DKA protocol - Monitor H/H BID - Empiric Pantoprazole IV 40 BID - can be switched to PO when pt able to tolerate - Consider EGD if abd pain and vomiting persist despite resolution of DKA Review of Systems 2 Review of Systems: Yes all other systems are reviewed and are negative PMFSH Past Medical History Medical History Obesity (BMI 30-39.9) PAD (peripheral artery disease) Afib Amputation of left great toe Lower limb amputation, great toe CAD (coronary artery disease) DMII (diabetes mellitus, type 2) Orthopedic hardware present Hyperglycemia Cellulitis Asthma Diabetes Hypertension FHx: bilateral hip replacements Family History Family History Other No family history of coronary artery disease Surgical History Surgical History History of amputation of toe (07/29/22) History of amputation of great toe (01/07/22) History of back surgery History of neck surgery History of ankle surgery H/O bilateral hip replacements S/P quadruple vessel bypass Social History Social History Household Members: Spouse Household Members Other:: 3 Housing: House Are you a primary resident care spec to a significant other at home: No Do you presently have visiting nurse or other home services: No Alcohol intake: never Comment: refused bed or chair alarm Patient Tobacco Use Status: Former Tobacco user Tobacco use type: Cigarette Smoked in Last 30 Days: No Second Hand Smoke Exposure: No Use of substances other than those prescribed or required for medical reasons: No Substance Use Type: Marijuana Substance Use Frequency: Daily Currently Displaying Signs/Symptoms of Drug Intoxication Withdrawal: No Have you been hit, kicked, punched, or otherwise hurt by someone within the past year? If so, by whom?: No Do you feel safe in your current relationship?: Yes Is there a partner from a previous relationship who is making you feel unsafe now?: No Are you made to feel afraid or neglected: No Advance Directives: No Advance Directives Information Provided: Yes Advance Directives Date on File: 01/04/22 Do you have a plan to hurt others: No Plan Recently lost weight without trying: No Nutrition Risks: Poor intake 0-25% >4 days Poor oral hygiene: No service: No Current occupational status: disabled Meds Allergies Allergy/AdvReac Type Severity Reaction Status Date / Time morphine AdvReac Intermediate Hallucinati Verified 12/16/24 07:53 ons Active Medications: Current Medications Acetaminophen (Acetaminophen 325 Mg Tablet) 650 mg PO Q6H PRN PRN Reason: Pain, Mild 1-3,fever,headache Atorvastatin Calcium (Atorvastatin Calcium 40 Mg Tablet) 40 mg PO BEDTIME COUNT INCLUDES [facility] Last Admin: 12/17/24 20:59 Dose: Not Given Calcium Carbonate (Calcium Carbonate 750 Mg Tab.Chew) 750 mg PO Q4H PRN PRN Reason: Heartburn Dextrose (Dextrose 50 % 25 Gm/50 Ml Syringe) 25 gm IVPUSH Q15M PRN; Protocol PRN Reason: per Hypoglycemia Standing Ord. Ezetimibe (Ezetimibe 10 Mg Tablet) 10 mg PO DAILY COUNT INCLUDES THE [facility] Last Admin: 12/18/24 08:42 Dose: 10 mg Gabapentin (Gabapentin 300 Mg Capsule) 300 mg PO TID COUNT INCLUDES THE [facility] Last Admin: 12/18/24 08:43 Dose: Not Given Glucose (Glucose Gel 15 Gm Gel..Gram.) 15 gm PO Q15M PRN; Protocol PRN Reason: per Hypoglycemia Standing Ord. Hydromorphone HCl (Hydromorphone Hcl 1 Mg/Ml Syringe) 1 mg IVPUSH Q3H PRN; Protocol PRN Reason: Pain, Severe (Pain Scale 7-10) Last Admin: 12/18/24 12:06 Dose: 1 mg Lactated Ringer's (Lr) 1,000 mls @ 80 mls/hr IVCONT .[id number] COUNT INCLUDES THE [facility] Last Admin: 12/18/24 01:16 Dose: 80 mls/hr Insulin Glargine (Insulin Glargine,Hum.Rec.Anlog 100 Unit/Ml 10 Ml Vial) 20 unit SUBCUT BID COUNT INCLUDES THE [facility] Last Admin: 12/18/24 08:43 Dose: Not Given Insulin Human Lispro (Insulin Lispro 100 Unit/Ml 3 Ml Vial) 0 unit SUBCUT QIDACHS COUNT INCLUDES THE [facility]; Protocol Last Admin: 12/18/24 11:24 Dose: Not Given Isosorbide Mononitrate (Isosorbide Mononitrate 30 Mg Tab.Er.24h) 30 mg PO DAILY COUNT INCLUDES THE [facility]; Protocol Last Admin: 12/18/24 08:42 Dose: 30 mg Loratadine (Loratadine 10 Mg Tablet) 10 mg PO DAILY COUNT INCLUDES THE [facility] Last Admin: 12/18/24 08:44 Dose: Not Given Losartan Potassium (Losartan Potassium 25 Mg Tablet) 25 mg PO DAILY COUNT INCLUDES THE [facility]; Protocol Last Admin: 12/18/24 08:42 Dose: 25 mg Magnesium Hydroxide (Milk Of Magnesia 30 Ml Oral.Susp) 30 ml PO DAILY PRN PRN Reason: Constipation Melatonin (Melatonin 3 Mg Tablet) 6 mg PO BEDTIME PRN PRN Reason: Insomnia Metoclopramide HCl (Metoclopramide Hcl 10 Mg/2 Ml Vial) 10 mg IVPUSH TIDAC COUNT INCLUDES THE [facility] Last Admin: 12/18/24 12:06 Dose: 10 mg Metoprolol Succinate (Metoprolol Succinate Er 25 Mg Tab.Er.24h) 25 mg PO DAILY COUNT INCLUDES THE [facility]; Protocol Last Admin: 12/18/24 08:42 Dose: 25 mg Ondansetron HCl (Ondansetron Hcl 4 Mg/2 Ml Vial) 4 mg IVPUSH Q8H PRN PRN Reason: Nausea and Vomiting Last Admin: 12/18/24 05:53 Dose: 4 mg Pantoprazole Sodium (Pantoprazole Sodium 40 Mg/10 Ml Vial) 40 mg IVPUSH DAILY@0630 COUNT INCLUDES [facility] Last Admin: 12/18/24 05:53 Dose: 40 mg Rivaroxaban (Rivaroxaban 20 Mg Tablet) 20 mg PO DAILY@1700 COUNT INCLUDES [facility] Last Admin: 12/17/24 16:40 Dose: 20 mg Sodium Chloride (0.9 % Sodium Chloride Flush 3 Ml Syringe) 3 ml IVFLUSH QSHIFT COUNT INCLUDES THE [facility] Last Admin: 12/18/24 08:43 Dose: Not Given Venlafaxine HCl (Venlafaxine Hcl 25 Mg Tablet) 100 mg PO BID COUNT INCLUDES [facility] Last Admin: 12/18/24 08:44 Dose: Not Given Home Medications ?Medication ?Instructions ?Recorded ?Confirmed ?Last Taken ?Type ezetimibe 10 mg tablet 10 mg PO DAILY 01/03/22 12/16/24 12/14/24 History gabapentin 300 mg capsule 300 mg PO TID 01/03/22 12/16/24 12/14/24 History insulin glargine 100 unit/mL 10 unit subcut BID 01/03/22 12/16/24 12/14/24 History subcutaneous solution (Lantus U-100 Insulin) isosorbide mononitrate 30 mg 30 mg PO DAILY 01/03/22 12/16/24 12/14/24 History tablet,extended release 24 hr loratadine 10 mg tablet 10 mg PO DAILY 01/03/22 12/16/24 12/14/24 History losartan 25 mg tablet 25 mg PO DAILY 01/03/22 12/16/24 12/14/24 History meclizine 25 mg tablet 25 mg PO TID PRN Dizziness Or 01/03/22 12/16/24 12/14/24 History Vertigo pantoprazole 40 mg tablet,delayed 40 mg PO BID@0630,1630 01/03/22 12/16/24 12/14/24 History release rosuvastatin 40 mg tablet 40 mg PO BEDTIME 01/03/22 12/16/24 12/14/24 History aspirin 81 mg tablet,delayed 81 mg PO DAILY 08/04/22 12/16/24 12/14/24 History release furosemide 20 mg tablet 20 mg PO DAILY 11/13/22 12/16/24 12/14/24 History venlafaxine 100 mg tablet 100 mg PO BID 11/13/22 12/16/24 12/14/24 History metoprolol succinate 25 mg 25 mg PO DAILY 10/14/24 12/16/24 12/14/24 History tablet,extended release 24 hr insulin lispro 100 unit/mL See Protocol subcut QIDACHS 12/16/24 12/16/24 12/14/24 History subcutaneous solution oxycodone 10 mg tablet 10 mg PO Q4H PRN Pain 12/16/24 12/16/24 12/14/24 History rivaroxaban 20 mg tablet (Xarelto) 20 mg PO DAILY@1700 12/16/24 12/16/24 12/14/24 History Physical Exam 2 Vital Signs: Vital Signs: Last Vital Signs Temp 98.8 F 12/18/24 10:58 Pulse 69 12/18/24 10:58 Resp 18 12/18/24 10:58 BP 132/60 12/18/24 10:58 Pulse Ox 96 12/18/24 10:58 O2 Del Method Room Air 12/18/24 10:58 BMI result Body Mass Index 36.4 Results Labs 12/17/24 06:33 12/19/24 08:05 Assessment and Plan (1) Gastroparesis: Status: Acute (2) Nausea & vomiting: Status: Inactive Plan 64 YM with type 2 diabetes with Gastroparesis and neuropathy, CAD status post CABG in 2018, CHF, PVD, osteomyelitis and left great toe amputation, atrial fibrillation on Xarelto, intermittent asthma admitted to [facility] on 12/16/24 with nausea and vomting. Pt reports intermittent episodes of upper abd pain with nausea and vomiting usually associated with diabetic ketoacidosis. Pt states episodes start with nausea and vomiting followed by upper abdominal pain. Abd pain was 8/10 on admission. Patient admitted to [facility] on 10/14/24 with similar episode associated with diabetic ketoacidosis that was euglycemic due to Farxiga which has since been discontinued. He reports feeling well in the interim. In the ED, pt noted to have keturia, ketoacidemia with alkalotic ph of 7.47, no significant AG (20), glucose in 300s. Normal LFTs and lipase. Urine drug screen positive for Marijuna and oxycodone Pt symptoms are likely due to ketoacidosis versus gastroparesis. Cannabis hyperemesis syndrome would be less likely if he is using Marijuana once a week. RECOMMENDATIONS: 1. Agree with IV fluids, IV PPI, pain medications and antiemetics 2. Continue IV metoclopramide for gastroparesis 3. Resume PO as per DKA protocol 4. If symptoms do not improve, OK to switch to Erythromycin 250 mg IV TID 30 min before meals in place of metoclopramide 5. Gastric emptying study as outpatient once episode of nausea and vomiting subsides. Procedures Date of Service Date of Service: 12/19/24
[2024-12-18 15:14] VITALS: BP 136/70; PULSE 74; RESP 18; TEMP 37.2; O2SAT 97
--- NOTE | 2024-12-18 16:23 | P.PNIM_ITS ---
Subjective Subjective Date of Service: 12/18/24 Interval History: dm gasteroparesis Review of Systems abd pain seems similar unable to tolerate food yet Physical Exam 2 Vital Signs: Vital Signs: Last Vital Signs Temp 98.9 F 12/18/24 15:14 Pulse 74 12/18/24 15:14 Resp 18 12/18/24 15:14 BP 136/70 12/18/24 15:14 Pulse Ox 97 12/18/24 15:14 O2 Del Method Room Air 12/18/24 15:14 BMI result Body Mass Index 36.4 Appears to be uncomfortable and in pain abd:Epigastric tenderness without rebound Lungs clear S1-S2 Neuro nonfocal Objective Data Active Medications Acetaminophen (Acetaminophen 325 Mg Tablet) 650 mg PO Q6H PRN PRN Reason: Pain, Mild 1-3,fever,headache Atorvastatin Calcium (Atorvastatin Calcium 40 Mg Tablet) 40 mg PO BEDTIME [facility] Last Admin: 12/17/24 20:59 Dose: Not Given Documented By: EMMA Non-Admin Reason: Patient Refused Calcium Carbonate (Calcium Carbonate 750 Mg Tab.Chew) 750 mg PO Q4H PRN PRN Reason: Heartburn Dextrose (Dextrose 50 % 25 Gm/50 Ml Syringe) 25 gm IVPUSH Q15M PRN; Protocol PRN Reason: per Hypoglycemia Standing Ord. Ezetimibe (Ezetimibe 10 Mg Tablet) 10 mg PO DAILY [facility] Last Admin: 12/18/24 08:42 Dose: 10 mg Documented By: HILARY Gabapentin (Gabapentin 300 Mg Capsule) 300 mg PO TID [facility] Last Admin: 12/18/24 14:28 Dose: Not Given Documented By: HILARY Non-Admin Reason: Patient Refused Glucose (Glucose Gel 15 Gm Gel..Gram.) 15 gm PO Q15M PRN; Protocol PRN Reason: per Hypoglycemia Standing Ord. Hydromorphone HCl (Hydromorphone Hcl 1 Mg/Ml Syringe) 1 mg IVPUSH Q3H PRN; Protocol PRN Reason: Pain, Severe (Pain Scale 7-10) Last Admin: 12/18/24 15:03 Dose: 1 mg Documented By: HILARY Lactated Ringer's (Lr) 1,000 mls @ 80 mls/hr IVCONT .[id number] [facility] Last Admin: 12/18/24 14:28 Dose: 80 mls/hr Documented By: HILARY Insulin Glargine (Insulin Glargine,Hum.Rec.Anlog 100 Unit/Ml 10 Ml Vial) 20 unit SUBCUT BID [facility] Last Admin: 12/18/24 08:43 Dose: Not Given Documented By: HILARY Non-Admin Reason: No Insulin Coverage Insulin Human Lispro (Insulin Lispro 100 Unit/Ml 3 Ml Vial) 0 unit SUBCUT QIDACHS [facility]; Protocol Last Admin: 12/18/24 11:24 Dose: Not Given Documented By: HILARY Non-Admin Reason: No Insulin Coverage Isosorbide Mononitrate (Isosorbide Mononitrate 30 Mg Tab.Er.24h) 30 mg PO DAILY [facility]; Protocol Last Admin: 12/18/24 08:42 Dose: 30 mg Documented By: HILARY Loratadine (Loratadine 10 Mg Tablet) 10 mg PO DAILY [facility] Last Admin: 12/18/24 08:44 Dose: Not Given Documented By: HILARY Non-Admin Reason: Patient Refused Losartan Potassium (Losartan Potassium 25 Mg Tablet) 25 mg PO DAILY [facility]; Protocol Last Admin: 12/18/24 08:42 Dose: 25 mg Documented By: HILARY Magnesium Hydroxide (Milk Of Magnesia 30 Ml Oral.Susp) 30 ml PO DAILY PRN PRN Reason: Constipation Melatonin (Melatonin 3 Mg Tablet) 6 mg PO BEDTIME PRN PRN Reason: Insomnia Metoclopramide HCl (Metoclopramide Hcl 10 Mg/2 Ml Vial) 10 mg IVPUSH TIDAC [facility] Last Admin: 12/18/24 12:06 Dose: 10 mg Documented By: HILARY Metoprolol Succinate (Metoprolol Succinate Er 25 Mg Tab.Er.24h) 25 mg PO DAILY [facility]; Protocol Last Admin: 12/18/24 08:42 Dose: 25 mg Documented By: HILARY Ondansetron HCl (Ondansetron Hcl 4 Mg/2 Ml Vial) 4 mg IVPUSH Q8H PRN PRN Reason: Nausea and Vomiting Last Admin: 12/18/24 05:53 Dose: 4 mg Documented By: YUE-JOZEB Pantoprazole Sodium (Pantoprazole Sodium 40 Mg/10 Ml Vial) 40 mg IVPUSH DAILY@0630 [facility] Last Admin: 12/18/24 05:53 Dose: 40 mg Documented By: SURESHZEB Rivaroxaban (Rivaroxaban 20 Mg Tablet) 20 mg PO DAILY@1700 [facility] Last Admin: 12/17/24 16:40 Dose: 20 mg Documented By: HILARY Sodium Chloride (0.9 % Sodium Chloride Flush 3 Ml Syringe) 3 ml IVFLUSH QSHIFT [facility] Last Admin: 12/18/24 15:03 Dose: Not Given Documented By: HILARY Non-Admin Reason: IV Running Venlafaxine HCl (Venlafaxine Hcl 25 Mg Tablet) 100 mg PO BID [facility] Last Admin: 12/18/24 08:44 Dose: Not Given Documented By: HILARY Non-Admin Reason: Patient Refused Labs 12/17/24 06:33 12/17/24 06:33 Labs: Laboratory Results - last 24 hr 12/17/24 12/18/24 12/18/24 20:17 07:32 11:18 POC Glucose 104 103 139 H Assessment and Plan (1) Gastroparesis: Status: Acute Plan 63M PMH DM with neuropathy and gastroparesis, cad s/p CABG, pafib, pvd, htn, unspecified chf, presented with n/v Abdominal pain and nausea and vomiting suspect primarily starvation ketoacidosis due to diabetic gastroparesis, possible small dka component which appears resolved npo, ppi,ivf, prokinetics, pain control,lidocaine patch ,capscian cream, basal bolus insulin, will try trial of erythromycin x1 ,monitor bmp closely oob Started on clears Gi input since still symptomtaic pafib xarelto CAD asa unspecified chf monitor while hydrating pvd asa htn losartan dvt prophylaxis - xarelto full code Reason for ongoing hospitalization: Intolerant of p.o. intake, on IV fluids, IV Protonix, IV analgesics Quality Stroke Does the patient have a stroke diagnosis?: No VTE Prior VTE?: No VTE Risk Level:: Medical - moderate - high VTE Device Contraindication: Treatment Not Indicated VTE Drug Contraindication: N/A - Med Ordered
[2024-12-18 16:38] LABS: Glucose, Whole Blood 154 mg/dL (60-115)
[2024-12-18] MEDS: Rivaroxaban 20 MG TABLET PO (16:54)
[2024-12-18] MEDS: Insulin Lispro 100 UNIT/ML 3 ML VIAL SUBCUT (16:54)
[2024-12-18] MEDS: Lidocaine 4 % Patch ADH..PATCH 1 PATCH TRANSDERMA (16:54)
[2024-12-18] MEDS: Erythromycin Lactobionate 250 MG in 0.9 % Sodium Chloride 100 ML 100 MG IV (18:14)
[2024-12-18 19:35] VITALS: BP 112/50; PULSE 78; RESP 17; TEMP 36.7; O2SAT 92
[2024-12-18 21:00] LABS: Glucose, Whole Blood 127 mg/dL (60-115)
[2024-12-19] VITALS (7 sets, daily range): BP systolic 126–168; BP diastolic 49–85; PULSE 66–72; RESP 17–18; TEMP 36.2–36.7; O2SAT 93–99
[2024-12-19 01:02] LABS: Glucose, Whole Blood 121 mg/dL (60-115)
[2024-12-19] MEDS: HYDROmorphone HCl 1 MG/ML SYRINGE IVPUSH ×7 (01:37→21:16)
[2024-12-19] MEDS: Lactated Ringers 1,000 ML 80 ML IVCONT ×2 (01:38→12:27)
[2024-12-19] MEDS: Pantoprazole Sodium 40 MG/10 ML VIAL IVPUSH (05:08)
[2024-12-19] MEDS: ondansetron HCL 4 MG/2 ML VIAL IVPUSH ×2 (05:08→14:52)
[2024-12-19 07:25] LABS: Glucose, Whole Blood 145 mg/dL (60-115)
--- NOTE | 2024-12-19 07:57 | HO.PM.IMPN ---
Subjective Subjective Date of Service: 12/19/24 Interval History: dm gasteroparesis Review of Systems abd pain/nasuea -slightly improving still does not want to try food due to nausea Physical Exam Vital Signs: Vital Signs: Last Vital Signs Temp 97.9 F 12/19/24 07:15 Pulse 68 12/19/24 07:15 Resp 18 12/19/24 07:15 BP 168/78 H 12/19/24 07:15 Pulse Ox 98 12/19/24 07:15 O2 Del Method Room Air 12/19/24 07:15 BMI result Body Mass Index 36.4 Appears to be uncomfortable and in pain abd:Epigastric tenderness without rebound Lungs clear S1-S2 Neuro nonfocal Objective Data Active Medications Acetaminophen (Acetaminophen 325 Mg Tablet) 650 mg PO Q6H PRN PRN Reason: Pain, Mild 1-3,fever,headache Atorvastatin Calcium (Atorvastatin Calcium 40 Mg Tablet) 40 mg PO BEDTIME REPLACED BY [facility] Last Admin: 12/18/24 20:27 Dose: Not Given Documented By: EMMA Non-Admin Reason: Patient Refused Calcium Carbonate (Calcium Carbonate 750 Mg Tab.Chew) 750 mg PO Q4H PRN PRN Reason: Heartburn Capsaicin (Capsaicin 0.025% Cream 60 Gm Tube) 1 appl TOPICAL TID PRN; Protocol PRN Reason: Pain, Mild (Pain Scale 1-3) Dextrose (Dextrose 50 % 25 Gm/50 Ml Syringe) 25 gm IVPUSH Q15M PRN; Protocol PRN Reason: per Hypoglycemia Standing Ord. Ezetimibe (Ezetimibe 10 Mg Tablet) 10 mg PO DAILY REPLACED BY [facility] Last Admin: 12/18/24 08:42 Dose: 10 mg Documented By: HILARY Gabapentin (Gabapentin 300 Mg Capsule) 300 mg PO TID REPLACED BY [facility] Last Admin: 12/19/24 07:37 Dose: Not Given Documented By: HILARY Non-Admin Reason: Patient Refused Glucose (Glucose Gel 15 Gm Gel..Gram.) 15 gm PO Q15M PRN; Protocol PRN Reason: per Hypoglycemia Standing Ord. Hydromorphone HCl (Hydromorphone Hcl 1 Mg/Ml Syringe) 1 mg IVPUSH Q3H PRN; Protocol PRN Reason: Pain, Severe (Pain Scale 7-10) Last Admin: 12/19/24 05:08 Dose: 1 mg Documented By: EMMA Lactated Ringer's (Lr) 1,000 mls @ 80 mls/hr IVCONT .[id number] REPLACED BY [facility] Last Admin: 12/19/24 01:38 Dose: 80 mls/hr Documented By: EMMA Insulin Glargine (Insulin Glargine,Hum.Rec.Anlog 100 Unit/Ml 10 Ml Vial) 20 unit SUBCUT BID REPLACED BY [facility] Last Admin: 12/19/24 07:37 Dose: Not Given Documented By: HILARY Non-Admin Reason: NPO Insulin Human Lispro (Insulin Lispro 100 Unit/Ml 3 Ml Vial) 0 unit SUBCUT QIDACHS REPLACED BY [facility]; Protocol Last Admin: 12/19/24 07:36 Dose: Not Given Documented By: HILARY Non-Admin Reason: No Insulin Coverage Isosorbide Mononitrate (Isosorbide Mononitrate 30 Mg Tab.Er.24h) 30 mg PO DAILY REPLACED BY [facility]; Protocol Last Admin: 12/18/24 08:42 Dose: 30 mg Documented By: HILARY Lidocaine (Lidocaine 4 % Patch Adh..Patch) 1 patch TRANSDERMA DAILY REPLACED BY [facility]; Protocol Last Admin: 12/18/24 16:54 Dose: 1 patch Documented By: HILARY Loratadine (Loratadine 10 Mg Tablet) 10 mg PO DAILY REPLACED BY [facility] Last Admin: 12/19/24 07:37 Dose: Not Given Documented By: HILARY Non-Admin Reason: Patient Refused Losartan Potassium (Losartan Potassium 25 Mg Tablet) 25 mg PO DAILY REPLACED BY [facility]; Protocol Last Admin: 12/18/24 08:42 Dose: 25 mg Documented By: HILARY Magnesium Hydroxide (Milk Of Magnesia 30 Ml Oral.Susp) 30 ml PO DAILY PRN PRN Reason: Constipation Melatonin (Melatonin 3 Mg Tablet) 6 mg PO BEDTIME PRN PRN Reason: Insomnia Metoclopramide HCl (Metoclopramide Hcl 10 Mg/2 Ml Vial) 10 mg IVPUSH TIDAC REPLACED BY [facility] Last Admin: 12/18/24 16:54 Dose: 10 mg Documented By: HILARY Metoprolol Succinate (Metoprolol Succinate Er 25 Mg Tab.Er.24h) 25 mg PO DAILY REPLACED BY [facility]; Protocol Last Admin: 12/18/24 08:42 Dose: 25 mg Documented By: HILARY Ondansetron HCl (Ondansetron Hcl 4 Mg/2 Ml Vial) 4 mg IVPUSH Q8H PRN PRN Reason: Nausea and Vomiting Last Admin: 12/19/24 05:08 Dose: 4 mg Documented By: EMMA Pantoprazole Sodium (Pantoprazole Sodium 40 Mg/10 Ml Vial) 40 mg IVPUSH DAILY@0630 REPLACED BY [facility] Last Admin: 12/19/24 05:08 Dose: 40 mg Documented By: EMMA Rivaroxaban (Rivaroxaban 20 Mg Tablet) 20 mg PO DAILY@1700 REPLACED BY [facility] Last Admin: 12/18/24 16:54 Dose: 20 mg Documented By: HILARY Sodium Chloride (0.9 % Sodium Chloride Flush 3 Ml Syringe) 3 ml IVFLUSH QSHIFT REPLACED BY [facility] Last Admin: 12/19/24 07:36 Dose: Not Given Documented By: HILARY Non-Admin Reason: IV Running Venlafaxine HCl (Venlafaxine Hcl 25 Mg Tablet) 100 mg PO BID REPLACED BY [facility] Last Admin: 12/19/24 07:37 Dose: Not Given Documented By: HILARY Non-Admin Reason: Patient Refused Labs 12/17/24 06:33 12/19/24 08:05 Labs: Laboratory Results - last 24 hr 12/18/24 12/18/24 12/18/24 11:18 16:34 20:56 POC Glucose 139 H 154 H 127 H 12/19/24 12/19/24 00:58 07:19 POC Glucose 121 H 145 H Assessment and Plan (1) Gastroparesis: Status: Acute Plan 63M PMH DM with neuropathy and gastroparesis, cad s/p CABG, pafib, pvd, htn, unspecified chf, presented with n/v Abdominal pain and nausea and vomiting suspect primarily starvation ketoacidosis due to diabetic gastroparesis, possible small dka component which appears resolved npo, ppi,ivf, prokinetics, pain control,lidocaine patch ,capscian cream, basal bolus insulin, monitor bmp closely oob given trial of will try trial of erythromycin x1 -did not help much strongly advised for tring clears Gi input since still symptomtaic pafib xarelto CAD asa unspecified chf monitor while hydrating pvd asa htn losartan dvt prophylaxis - xarelto full code Reason for ongoing hospitalization: Intolerant of p.o. intake, on IV fluids, IV Protonix, IV analgesics Quality Stroke Does the patient have a stroke diagnosis?: No VTE Prior VTE?: No VTE Risk Level:: Medical - moderate - high VTE Device Contraindication: Treatment Not Indicated VTE Drug Contraindication: N/A - Med Ordered
[2024-12-19] MEDS: Metoprolol Succinate ER 25 MG TAB.ER.24H PO (08:07)
[2024-12-19] MEDS: Ezetimibe 10 MG TABLET PO (08:07)
[2024-12-19] MEDS: Isosorbide Mononitrate 30 MG TAB.ER.24H PO (08:07)
[2024-12-19] MEDS: Losartan Potassium 25 MG TABLET PO (08:07)
[2024-12-19] MEDS: Lidocaine 4 % Patch ADH..PATCH 1 PATCH TRANSDERMA (08:08)
[2024-12-19] MEDS: Metoclopramide HCl 10 MG/2 ML VIAL IVPUSH ×3 (08:08→17:10)
[2024-12-19 08:27] LABS: Anion Gap 15 (12-20); Blood Urea Nitrogen 10 mg/dL (9-16); Calcium 8.6 mg/dL (8.4-10.2); Carbon Dioxide 21 mmol/L (22-29); Chloride 111 mmol/L (96-108); Creatinine Clr Calc Pharmacy 139.2; Estimated Glomerular Filt Rate > 60; Glucose Random 141 mg/dL (60-115); Sodium 143 mmol/L (135-145)
[2024-12-19 11:26] LABS: Glucose, Whole Blood 114 mg/dL (60-115)
[2024-12-19] MEDS: Gabapentin 300 MG CAPSULE PO (14:56)
[2024-12-19 15:51] LABS: Glucose, Whole Blood 185 mg/dL (60-115)
[2024-12-19] MEDS: Rivaroxaban 20 MG TABLET PO (17:10)
[2024-12-19] MEDS: Insulin Lispro 100 UNIT/ML 3 ML VIAL SUBCUT ×2 (17:10→21:17)
[2024-12-19 20:59] LABS: Glucose, Whole Blood 189 mg/dL (60-115)
[2024-12-19 20:59] LABS: Glucose, Whole Blood 171 mg/dL (60-115)
[2024-12-20] MEDS: HYDROmorphone HCl 1 MG/ML SYRINGE IVPUSH ×8 (00:24→22:50)
[2024-12-20] MEDS: Lactated Ringers 1,000 ML 80 ML IVCONT ×2 (00:24→13:00)
[2024-12-20] MEDS: ondansetron HCL 4 MG/2 ML VIAL IVPUSH ×2 (00:24→20:33)
[2024-12-20] MEDS: 0.9 % Sodium Chloride Flush 3 ML SYRINGE IVFLUSH ×2 (00:26→09:51)
[2024-12-20 03:17] VITALS: BP 151/66; PULSE 62; RESP 18; TEMP 36.6; O2SAT 97
[2024-12-20] MEDS: Pantoprazole Sodium 40 MG/10 ML VIAL IVPUSH (06:14)
[2024-12-20 07:40] VITALS: BP 167/78; PULSE 71; RESP 16; TEMP 36.3; O2SAT 95
[2024-12-20 07:51] LABS: Glucose, Whole Blood 158 mg/dL (60-115)
[2024-12-20] MEDS: Insulin Lispro 100 UNIT/ML 3 ML VIAL SUBCUT ×3 (09:48→16:39)
[2024-12-20] MEDS: Insulin Glargine,Hum.rec.anlog 100 UNIT/ML 10 ML VIAL 10 UNIT SUBCUT ×2 (09:48→20:31)
[2024-12-20] MEDS: Metoclopramide HCl 10 MG/2 ML VIAL IVPUSH ×3 (09:48→16:39)
[2024-12-20] MEDS: Ezetimibe 10 MG TABLET PO (09:50)
[2024-12-20] MEDS: Losartan Potassium 25 MG TABLET PO (09:50)
[2024-12-20] MEDS: Metoprolol Succinate ER 25 MG TAB.ER.24H PO (09:50)
[2024-12-20] MEDS: Isosorbide Mononitrate 30 MG TAB.ER.24H PO (09:50)
[2024-12-20] MEDS: Loratadine 10 MG TABLET PO (09:50)
[2024-12-20] MEDS: Gabapentin 300 MG CAPSULE PO ×3 (09:50→20:30)
[2024-12-20] MEDS: Venlafaxine HCL 25 MG TABLET 100 MG PO ×2 (09:50→20:29)
[2024-12-20] MEDS: Erythromycin Lactobionate 250 MG in 0.9 % Sodium Chloride 100 ML 100 MG IV ×2 (09:51→16:41)
[2024-12-20] MEDS: Lidocaine 4 % Patch ADH..PATCH 1 PATCH TRANSDERMA (09:52)
[2024-12-20 11:11] VITALS: BP 144/96; PULSE 74; RESP 16; TEMP 36.7; O2SAT 97
[2024-12-20 11:50] LABS: Glucose, Whole Blood 173 mg/dL (60-115)
--- NOTE | 2024-12-20 12:53 | MHC.CM.PN ---
EMR reviewed and per MD rounds, pt is not medically cleared for discharge at this time.
--- NOTE | 2024-12-20 15:48 | HO.PM.IMPN ---
Subjective Subjective Date of Service: 12/20/24 Interval History: dm gasteroparesis Review of Systems nausea and abd discomfort some what imaprin trial of full liquid diet if tolerate will advance further Physical Exam Vital Signs: Vital Signs: Last Vital Signs Temp 98.0 F 12/20/24 11:11 Pulse 74 12/20/24 11:11 Resp 16 12/20/24 11:11 BP 144/96 H 12/20/24 11:11 Pulse Ox 97 12/20/24 11:11 O2 Del Method Room Air 12/20/24 11:11 BMI result Body Mass Index 36.4 Appears to be uncomfortable and in pain abd:Epigastric tenderness somewhat improving,without rebound Lungs clear S1-S2 Neuro nonfocal Objective Data Active Medications Acetaminophen (Acetaminophen 325 Mg Tablet) 650 mg PO Q6H PRN PRN Reason: Pain, Mild 1-3,fever,headache Atorvastatin Calcium (Atorvastatin Calcium 40 Mg Tablet) 40 mg PO BEDTIME [facility] Last Admin: 12/19/24 21:22 Dose: Not Given Documented By: DYLON Non-Admin Reason: unabe to keep down Calcium Carbonate (Calcium Carbonate 750 Mg Tab.Chew) 750 mg PO Q4H PRN PRN Reason: Heartburn Capsaicin (Capsaicin 0.025% Cream 60 Gm Tube) 1 appl TOPICAL TID PRN; Protocol PRN Reason: Pain, Mild (Pain Scale 1-3) Dextrose (Dextrose 50 % 25 Gm/50 Ml Syringe) 25 gm IVPUSH Q15M PRN; Protocol PRN Reason: per Hypoglycemia Standing Ord. Ezetimibe (Ezetimibe 10 Mg Tablet) 10 mg PO DAILY [facility] Last Admin: 12/20/24 09:50 Dose: 10 mg Documented By: ENDY Gabapentin (Gabapentin 300 Mg Capsule) 300 mg PO TID [facility] Last Admin: 12/20/24 14:30 Dose: 300 mg Documented By: ENDY Glucose (Glucose Gel 15 Gm Gel..Gram.) 15 gm PO Q15M PRN; Protocol PRN Reason: per Hypoglycemia Standing Ord. Hydromorphone HCl (Hydromorphone Hcl 1 Mg/Ml Syringe) 1 mg IVPUSH Q3H PRN; Protocol PRN Reason: Pain, Severe (Pain Scale 7-10) Last Admin: 12/20/24 13:23 Dose: 1 mg Documented By: ENDY Lactated Ringer's (Lr) 1,000 mls @ 80 mls/hr IVCONT .[id number] [facility] Last Admin: 12/20/24 13:00 Dose: 80 mls/hr Documented By: ENDY Erythromycin Lactobionate 250 (mg/ Sodium Chloride) 100 mls @ 100 mls/hr IV Q8H [facility] Last Infusion: 12/20/24 11:48 Dose: Infused Documented By: ENDY Insulin Glargine (Insulin Glargine,Hum.Rec.Anlog 100 Unit/Ml 10 Ml Vial) 10 unit SUBCUT BID [facility] Last Admin: 12/20/24 09:48 Dose: 10 unit Documented By: ENDY Insulin Human Lispro (Insulin Lispro 100 Unit/Ml 3 Ml Vial) 0 unit SUBCUT QIDACHS [facility]; Protocol Last Admin: 12/20/24 12:02 Dose: 2 unit Documented By: ENDY Isosorbide Mononitrate (Isosorbide Mononitrate 30 Mg Tab.Er.24h) 30 mg PO DAILY [facility]; Protocol Last Admin: 12/20/24 09:50 Dose: 30 mg Documented By: ENDY Lidocaine (Lidocaine 4 % Patch Adh..Patch) 1 patch TRANSDERMA DAILY [facility]; Protocol Last Admin: 12/20/24 09:52 Dose: 1 patch Documented By: ENDY Loratadine (Loratadine 10 Mg Tablet) 10 mg PO DAILY [facility] Last Admin: 12/20/24 09:50 Dose: 10 mg Documented By: ENDY Losartan Potassium (Losartan Potassium 25 Mg Tablet) 25 mg PO DAILY [facility]; Protocol Last Admin: 12/20/24 09:50 Dose: 25 mg Documented By: ENDY Magnesium Hydroxide (Milk Of Magnesia 30 Ml Oral.Susp) 30 ml PO DAILY PRN PRN Reason: Constipation Melatonin (Melatonin 3 Mg Tablet) 6 mg PO BEDTIME PRN PRN Reason: Insomnia Metoclopramide HCl (Metoclopramide Hcl 10 Mg/2 Ml Vial) 10 mg IVPUSH TIDAC [facility] Last Admin: 12/20/24 12:02 Dose: 10 mg Documented By: ENDY Metoprolol Succinate (Metoprolol Succinate Er 25 Mg Tab.Er.24h) 25 mg PO DAILY [facility]; Protocol Last Admin: 12/20/24 09:50 Dose: 25 mg Documented By: ENDY Ondansetron HCl (Ondansetron Hcl 4 Mg/2 Ml Vial) 4 mg IVPUSH Q8H PRN PRN Reason: Nausea and Vomiting Last Admin: 12/20/24 00:24 Dose: 4 mg Documented By: DYLON Rivaroxaban (Rivaroxaban 20 Mg Tablet) 20 mg PO DAILY@1700 [facility] Last Admin: 12/19/24 17:10 Dose: 20 mg Documented By: LESSARJonathan Sodium Chloride (0.9 % Sodium Chloride Flush 3 Ml Syringe) 3 ml IVFLUSH QSHIFT [facility] Last Admin: 12/20/24 14:31 Dose: Not Given Documented By: ENDY Non-Admin Reason: IV Running Venlafaxine HCl (Venlafaxine Hcl 25 Mg Tablet) 100 mg PO BID [facility] Last Admin: 12/20/24 09:50 Dose: 100 mg Documented By: ENDY Labs 12/17/24 06:33 12/19/24 08:05 Labs: Laboratory Results - last 24 hr 12/19/24 12/19/24 12/19/24 15:48 17:35 20:56 POC Glucose 185 H 171 H 189 H 12/20/24 12/20/24 07:43 11:13 POC Glucose 158 H 173 H Assessment and Plan (1) Gastroparesis: Status: Acute Plan 63M PMH DM with neuropathy and gastroparesis, cad s/p CABG, pafib, pvd, htn, unspecified chf, presented with n/v Abdominal pain and nausea and vomiting suspect primarily starvation ketoacidosis due to diabetic gastroparesis, possible small dka component which appears resolved npo, ppi,ivf, prokinetics, pain control,lidocaine patch ,capscian cream, basal bolus insulin, monitor bmp closely oob given trial of will try trial of erythromycin per gi strongly advised for tring clears Gi input since still symptomtaic pafib xarelto CAD asa unspecified chf monitor while hydrating pvd asa htn losartan dvt prophylaxis - xarelto full code Reason for ongoing hospitalization: Intolerant of p.o. intake, on IV fluids, IV Protonix, IV analgesics Quality Stroke Does the patient have a stroke diagnosis?: No VTE Prior VTE?: No VTE Risk Level:: Medical - moderate - high VTE Device Contraindication: Treatment Not Indicated VTE Drug Contraindication: N/A - Med Ordered
[2024-12-20 16:00] VITALS: BP 148/72; PULSE 65; RESP 16; TEMP 36.3; O2SAT 97
[2024-12-20] MEDS: Rivaroxaban 20 MG TABLET PO (16:40)
[2024-12-20 20:00] VITALS: BP 152/76; PULSE 66; RESP 14; TEMP 36.3; O2SAT 99
[2024-12-20 20:24] LABS: Glucose, Whole Blood 135 mg/dL (60-115)
[2024-12-20 20:24] LABS: Glucose, Whole Blood 154 mg/dL (60-115)
[2024-12-20] MEDS: Atorvastatin Calcium 40 MG TABLET PO (20:30)
[2024-12-20 23:26] VITALS: BP 154/82; PULSE 63; RESP 18; TEMP 36.2; O2SAT 97
[2024-12-21] MEDS: Lactated Ringers 1,000 ML 80 ML IVCONT (00:41)
[2024-12-21] MEDS: Erythromycin Lactobionate 250 MG in 0.9 % Sodium Chloride 100 ML 100 MG IV ×2 (00:41→09:01)
[2024-12-21] MEDS: HYDROmorphone HCl 1 MG/ML SYRINGE IVPUSH ×3 (02:03→08:59)
[2024-12-21 03:06] VITALS: BP 148/79; PULSE 65; RESP 18; TEMP 36.4; O2SAT 98
[2024-12-21 07:14] VITALS: BP 148/84; PULSE 68; RESP 16; TEMP 36.1; O2SAT 96
[2024-12-21 07:21] LABS: Glucose, Whole Blood 143 mg/dL (60-115)
[2024-12-21] MEDS: Metoclopramide HCl 10 MG/2 ML VIAL IVPUSH ×2 (08:59→11:24)
[2024-12-21] MEDS: Lidocaine 4 % Patch ADH..PATCH 1 PATCH TRANSDERMA (09:00)
[2024-12-21] MEDS: Insulin Glargine,Hum.rec.anlog 100 UNIT/ML 10 ML VIAL 10 UNIT SUBCUT (09:00)
[2024-12-21] MEDS: 0.9 % Sodium Chloride Flush 3 ML SYRINGE IVFLUSH (09:00)
[2024-12-21] MEDS: Venlafaxine HCL 25 MG TABLET 100 MG PO (09:01)
[2024-12-21] MEDS: Gabapentin 300 MG CAPSULE PO (09:01)
[2024-12-21] MEDS: Isosorbide Mononitrate 30 MG TAB.ER.24H PO (09:01)
[2024-12-21] MEDS: Ezetimibe 10 MG TABLET PO (09:01)
[2024-12-21] MEDS: Metoprolol Succinate ER 25 MG TAB.ER.24H PO (09:02)
[2024-12-21] MEDS: Loratadine 10 MG TABLET PO (09:02)
[2024-12-21] MEDS: Losartan Potassium 25 MG TABLET PO (09:02)
[2024-12-21 11:10] VITALS: BP 123/67; PULSE 70; RESP 18; TEMP 36.2; O2SAT 95
[2024-12-21 11:15] LABS: Glucose, Whole Blood 137 mg/dL (60-115)
[2024-12-21] MEDS: oxyCODONE HCl Immed Release 5 MG TABLET 10 MG PO (11:24)
--- NOTE | 2024-12-21 11:40 | PM.DS ---
DS: Providers Provider Date of Service: 12/21/24 Date of admission: 12/16/24 12:34 Date of discharge: 12/21/24 Primary care physician: Marley Rick MD Consults: 12/18/24 11:39 Consult to Gastroenterology Routine Consulting Provider: [facility] Reason for consultation: Dm gasteroparesis Has provider been notified: No DS: Diagnosis Discharge Diagnosis (1) Gastroparesis: Status: Acute DS: Summary Hospital Course Hospital Course: HPI:63M PMH DM with neuropathy and gastroparesis, cad s/p CABG, pafib, pvd, ht, unspecified chf, presented with n/v. Patient states symptoms have been ongoing for 2 days. Inability to tolerate any p.o., associated with nausea and vomiting and severe mid abdominal pain. Patient had similar episode in 10/15/2024 associated with diabetic ketoacidosis that was euglycemic due to Farxiga which has since been discontinued. He reports feeling well in the interim. in ED noted to have keturia, ketoacidemia with alkalotic ph of 7.47, no significant AG (20), glucose in 300s. Hospital course: 63M PMH DM with neuropathy and gastroparesis, cad s/p CABG, pafib, pvd, htn, unspecified chf, presented with n/v: which likely due to dm gasteroparesis : started on iv f,ppi ,prokinetics ,pain control,basal bolus insulin,metoclopramide : seems improved. pain control,lidocaine patch ,capscian cream, basal bolus insulin, and need to follow up outpatient with Gi Dr Curtis's office for gastric emptying study. plan: Encouraged for hydration, continue metoclopramide and PPIs at home. follow up with Gi Dr Curtis's office for gastric emptying study. Above management discussed with the patient in detail length he understand and in agreement with the above plan, time spent 40 minute. Time Attestation Total time managing care of this patient today: 40 mintues. Discharge Coordination Time (in mins): 40 min Quality: Safe Use of Opioids Does Pt have an Active Cancer Diagnosis on the Problem List?: No Quality: Stroke Does the patient have a stroke diagnosis?: No Physical Exam Vital Signs: Vital Signs: Last Vital Signs Temp 97.1 F 12/21/24 11:10 Pulse 70 12/21/24 11:10 Resp 18 12/21/24 11:10 BP 123/67 12/21/24 11:10 Pulse Ox 95 12/21/24 11:10 O2 Del Method Room Air 12/21/24 11:10 BMI result Body Mass Index 36.4 Appears to be uncomfortable and in pain abd:soft, nd ,nt, bs present. Lungs clear S1-S2 Neuro nonfocal DS: Data Data Completed and Pending Completed studies during hospitalization [Text1]: Procedures Detachment at Left 1st Toe, Complete, Open Approach (01/03/22) Drainage of Pelvic Region Subcutaneous Tissue and Fascia, Open Approach (04/30/23) Fluoroscopy of Left Lower Extremity Arteries using High Osmolar Contrast (08/04/22) Fluoroscopy of Right Subclavian Vein using Low Osmolar Contrast, Guidance (08/04/22) Insertion of Infusion Device into Right Subclavian Vein, Percutaneous Approach (08/04/22) Insertion of Infusion Device into Superior Vena Cava, Percutaneous Approach (01/20/22) Ultrasonography of Superior Vena Cava, Guidance (01/03/22) Labs on day of discharge: Laboratory Results - last 24 hr 12/20/24 12/20/24 12/20/24 11:13 16:14 20:13 POC Glucose 173 H 154 H 135 H 12/21/24 12/21/24 07:17 11:12 POC Glucose 143 H 137 H Discharge Plan Discharge Anticipated Discharge Date/Time: 12/21/24 11:32 Patient Disposition: Home, Self-Care Discharge Diagnosis: dm gasteroparesis Referrals: Prisca Curtis MD [Physician] - 2 Weeks Marley Rick MD [Primary Care Provider] - 1 Week Discharge Medications: Continued (DME) walker Misc See Rx Instructions .Route Qty: 1 0RF Rx Instructions: As directed (DME) Aircast off loading boot Kit See Rx Instructions .Route Qty: 1 0RF Rx Instructions: As directed (DME) elastic bandage 6 X 1.8 -yard bandage See Rx Instructions .Route Qty: 6 0RF Rx Instructions: As directed (DME) gauze bandage [Band-Aid Gauze Pads] 4 X 4 bandage See Rx Instructions .Route Qty: 25 3RF Rx Instructions: As directed (DME) sterile gauze 4x4 See Rx Instructions .Route .MEDSUPPLY Qty: 40 3RF Rx Instructions: Apply to left foot wound every other day (DME) calcium alginate ag 4x4 pad See Rx Instructions .Route .MEDSUPPLY Qty: 5 2RF Rx Instructions: Apply to wound beds every other day insulin glargine [Lantus U-100 Insulin] 100 unit/mL solution 10 unit subcut BID Rx Instructions: 50 units at lunch and 100 units at bedtime isosorbide mononitrate 30 mg tablet extended release 24 hr 30 mg PO DAILY pantoprazole 40 mg tablet,delayed release (DR/EC) 40 mg PO BID@0630,1630 losartan 25 mg tablet 25 mg PO DAILY gabapentin 300 mg capsule 300 mg PO TID loratadine 10 mg tablet 10 mg PO DAILY ezetimibe 10 mg tablet 10 mg PO DAILY rosuvastatin 40 mg tablet 40 mg PO BEDTIME meclizine 25 mg tablet 25 mg PO TID PRN (Reason: Dizziness Or Vertigo) (DME) [facility] See Rx Instructions .Route Qty: 1 0RF Rx Instructions: As directed aspirin 81 mg tablet,delayed release (DR/EC) 81 mg PO DAILY venlafaxine 100 mg tablet 100 mg PO BID furosemide 20 mg tablet 20 mg PO DAILY metoprolol succinate 25 mg tablet extended release 24 hr 25 mg PO DAILY insulin lispro 100 unit/mL solution See Protocol subcut QIDACHS Protocol: Insulin Correction Scale Less than or equal to 110 ---- Give (units): 0 111 to 150 Give (units): 0 151 to 200 Give (units): 2 201 to 250 Give (units): 4 251 to 300 Give (units): 6 301 to 350 Give (units): 8 Greater than 350 Give (units): 10 Call MD if Blood Glucose > : 350 oxycodone 10 mg tablet 10 mg PO Q4H PRN (Reason: Pain) Xarelto 20 mg tablet 20 mg PO DAILY@1700 metoclopramide HCl [Reglan] 10 mg tablet 10 mg PO Q8H PRN (Reason: nausea and vomiting) Qty: 30 0RF Discharge Orders: Discharge Order (Routine); Ordered 12/21/24 Ordered By: Roni Hall Diet: Advance to usual diet Activity on Discharge: As tolerated Stand Alone Forms: Patient Portal Discharge page Print Language: Hebrew Care Plan Goals: 63M PMH DM with neuropathy and gastroparesis, cad s/p CABG, pafib, pvd, htn, unspecified chf, presented with n/v: which likely due to dm gasteroparesis : started on iv f,ppi ,prokinetics ,pain control,basal bolus insulin,metoclopramide : seems improved. pain control,lidocaine patch ,capscian cream, basal bolus insulin, and need to follow up outpatient with Gi Dr Curtis's office for gastric emptying study. Health Concerns: as above. Plan of Treatment: Encouraged for hydration, continue metoclopramide and PPIs at home. follow up with Gi Dr Curtis's office for gastric emptying study. Assessment: as above.
--- NOTE | 2024-12-21 12:01 | MHC.CM.PN ---
Pt is medically cleared for discharge home self-care.
== END 2024-12-21 13:11 | disposition home or self-care (01) | DRG 48 ==
LOC: HO.ED 12:07 → HO.EDOVER 12:39 → HO.IMC 15:48
PROVIDERS: Family Medicine; Physician Assistant; Admitting Provider Internal Medicine; Emergency Provider Emergency Medicine; PCP Internal Medicine; Visit Provider Internal Medicine
DX: E11.43 Type 2 diabetes mellitus with diabetic autonomic (poly)neuropathy (principal); E11.51 Type 2 diabetes mellitus with diabetic peripheral angiopathy without gangrene; I50.9 Heart failure, unspecified; I11.0 Hypertensive heart disease with heart failure; I25.10 Atherosclerotic heart disease of native coronary artery without angina pectoris; K31.84 Gastroparesis; E11.10 Type 2 diabetes mellitus with ketoacidosis without coma; E11.40 Type 2 diabetes mellitus with diabetic neuropathy, unspecified; K31.89 Other diseases of stomach and duodenum; I48.0 Paroxysmal atrial fibrillation; Z20.822 Contact with and (suspected) exposure to COVID-19; Z79.01 Long term (current) use of anticoagulants; Z79.4 Long term (current) use of insulin; Z87.891 Personal history of nicotine dependence; Z95.1 Presence of aortocoronary bypass graft; Z79.82 Long term (current) use of aspirin; Z79.899 Other long term (current) drug therapy
CPT/HCPCS: 0241U; 36415; 80048; 80053; 80307; 81001; 82010; 82803; 82947; 83605; 83690; 83735; 85025; 85027; 93005; 99285; J0737; J1171; J1364; J2405; J2470; J2765; J7120

== ENCOUNTER → 2024-12-16 07:28 | Outpatient (BNV) | payer OTHER, SELFPAY | PROVIDERS: Admitting Provider Internal Medicine; Emergency Provider Emergency Medicine; PCP Internal Medicine; Visit Provider Internal Medicine | DX: R00.0 Tachycardia, unspecified (principal) | CPT/HCPCS: 93010 ==

== ENCOUNTER → 2024-12-16 12:34 | Outpatient (BNV) | payer OTHER, SELFPAY | PROVIDERS: Admitting Provider Internal Medicine; Emergency Provider Emergency Medicine; PCP Internal Medicine; Visit Provider Internal Medicine | DX: E11.9 Type 2 diabetes mellitus without complications (principal) | CPT/HCPCS: 99223; 99231; 99232; 99239 ==

== ENCOUNTER → 2024-12-16 12:34 | Outpatient (BNV) | payer OTHER, SELFPAY | PROVIDERS: Admitting Provider Internal Medicine; Emergency Provider Emergency Medicine; PCP Internal Medicine; Visit Provider Internal Medicine Gastroenterology | DX: K31.84 Gastroparesis (principal); R11.2 Nausea with vomiting, unspecified | CPT/HCPCS: 99222 ==

== ENCOUNTER 2025-02-03 10:54 | Inpatient (IN) | payer OTHER, SELFPAY ==
[2025-02-03] VITALS (12 sets, daily range): BP systolic 111–220; BP diastolic 61–120; PULSE 85–106; RESP 14–20; TEMP 36.6–36.7; O2SAT 92–100; BMI 35.9
--- NOTE | 2025-02-03 | ECG_ITS ---
Test Reason : abd pain Blood Pressure : */* mmHG Vent. Rate : 86 BPM Atrial Rate : 86 BPM P-R Int : 182 ms QRS Dur : 90 ms QT Int : 400 ms P-R-T Axes : 64 -7 64 degrees QTcB Int : 478 ms Normal sinus rhythm Nonspecific ST abnormality Abnormal ECG When compared with ECG of 16-Dec-2024 07:28, No significant change was found Referred By: Estephania dOonnell Electronically Signed By: Kenny Pond
--- NOTE | ~2025-02-03 | CT_ITS ---
EXAMINATION: CT ABDOMEN AND PELVIS WITH CONTRAST CLINICAL INFORMATION: Abdominal pain. COMPARISON: 10/13/2024, 04/29/2023. TECHNIQUE: Multidetector volumetric images were obtained from the superior aspect of the liver through the pubic symphysis following administration 100 mL of Omnipaque 350 intravenous contrast. Sagittal and coronal reformatted images were obtained on the technologist's workstation. Oral contrast: No This CT examination was performed using dose optimization techniques as appropriate, variously including the following: *Automated exposure control *Adjustment of mA and/or kV according to patient size (this includes techniques or standardized protocols for targeted exams where dose is matched to indication/reason for exam; i.e. extremities or head) *Use of iterative reconstruction technique FINDINGS: LUNG BASES: Mild elevation right hemidiaphragm. Minor scarring in both lung bases. Borderline cardiac enlargement. No effusions. LIVER, GALLBLADDER, AND BILIARY TREE: The liver is normal in size, shape, and attenuation. No focal hepatic lesion or biliary ductal dilatation is present. There has been a cholecystectomy. PANCREAS: Mild to moderate diffuse fatty atrophy. SPLEEN: Unremarkable. ADRENAL GLANDS: Unremarkable. KIDNEYS AND URETERS: The kidneys are normal in size, shape, and attenuation. No hydronephrosis, hydroureter, or calculi seen. No perinephric stranding. Subcentimeter cysts in both kidneys. BLADDER: Mildly diffusely thick-walled, nonspecific. No perivesicular stranding. No lesions. GASTROINTESTINAL TRACT: There is diffuse wall thickening of the colon, with rectal involvement, findings consistent with pancolitis. There is mild associated hyperemia. The small bowel is normal in caliber and course. The terminal ileum has a normal appearance. The appendix is normal. There is a tiny second segment duodenal diverticulum. There is a small type I hiatus hernia. The stomach otherwise appears normal. ABDOMINAL WALL: No significant hernia is appreciated. There are bilateral lower abdominal injection granulomata present. LYMPH NODES: Normal. VASCULAR: Extensive calcific atherosclerosis of the arterial vasculature. No aneurysm. No venous thrombosis. PELVIC VISCERA: Unremarkable OSSEOUS STRUCTURES: Evaluation of the pelvis is limited secondary to streak artifact from bilateral hip prostheses. Spinal fusion hardware noted spanning L4-S1. No complication evident. Degenerative changes of the spine, moderate. Mild chronic appearing compression deformities T8 and T9. Large Schmorl's node in the superior endplate of L5. Prior median sternotomy. CT/CT abdomen pelvis w IV con IMPRESSION: 1. Findings consistent with pancolitis. This could be infectious or inflammatory. 2. Ancillary findings as discussed in the body of the report. Electronically signed by: Nicko Smith MD 02/03/2025 03:09 PM EDT
--- NOTE | ~2025-02-03 | XR_ITS ---
EXAMINATION: XR CHEST CLINICAL INFORMATION: cp COMPARISON: 10/13/2024. TECHNIQUE: AP view of the chest was obtained. FINDINGS: Mildly elevated right hemidiaphragm, unchanged. The cardiac, hilar, and mediastinal contours are normal. Aortic mural calcification. Coronary calcifications. Prior median sternotomy and CABG. The lungs are clear bilaterally. No pneumothorax or effusion. Degenerative changes in the shoulder joints and spine. Sternal wires are non-migrated. The third from the top is broken. Cervical fusion in the inferior cervical spine. Healed right-sided rib fractures noted. Imaged soft tissues appear normal. XR/XR chest 1V IMPRESSION: 1. No active pulmonary disease. 2. Prior sternotomy and CABG. Electronically signed by: Nicko Smith MD 02/03/2025 12:24 PM EDT
--- NOTE | 2025-02-03 11:51 | ED_ITS ---
HPI - Abdominal Pain General Chief Complaint: Abdominal Pain Stated Complaint: ABD PAIN,CP,VOMITING PER EMS Time Seen by Provider: 02/03/25 11:08 History of Present Illness HPI narrative: patient is a 64-year-old male with a history of gastroparesis history of diabetic ketoacidosis history of coronary artery disease. Status post bypass in the past. Presents today with having nausea vomiting extreme abdominal pain mostly over the epigastric area. Generalized malaise. Patient from home. status post cholecystectomy in the past Related Data Home Medications ?Medication ?Instructions ?Recorded ?Confirmed ezetimibe 10 mg tablet 10 mg PO DAILY 01/03/22 12/16/24 gabapentin 300 mg capsule 300 mg PO TID 01/03/22 12/16/24 insulin glargine 100 unit/mL 10 unit subcut BID 01/03/22 12/16/24 subcutaneous solution (Lantus U-100 Insulin) isosorbide mononitrate 30 mg 30 mg PO DAILY 01/03/22 12/16/24 tablet,extended release 24 hr loratadine 10 mg tablet 10 mg PO DAILY 01/03/22 12/16/24 losartan 25 mg tablet 25 mg PO DAILY 01/03/22 12/16/24 meclizine 25 mg tablet 25 mg PO TID PRN Dizziness Or 01/03/22 12/16/24 Vertigo pantoprazole 40 mg tablet,delayed 40 mg PO BID@0630,1630 01/03/22 12/16/24 release rosuvastatin 40 mg tablet 40 mg PO BEDTIME 01/03/22 12/16/24 aspirin 81 mg tablet,delayed 81 mg PO DAILY 08/04/22 12/16/24 release furosemide 20 mg tablet 20 mg PO DAILY 11/13/22 12/16/24 venlafaxine 100 mg tablet 100 mg PO BID 11/13/22 12/16/24 metoprolol succinate 25 mg 25 mg PO DAILY 10/14/24 12/16/24 tablet,extended release 24 hr insulin lispro 100 unit/mL See Protocol subcut QIDACHS 12/16/24 12/16/24 subcutaneous solution oxycodone 10 mg tablet 10 mg PO Q4H PRN Pain 12/16/24 12/16/24 rivaroxaban 20 mg tablet (Xarelto) 20 mg PO DAILY@1700 12/16/24 12/16/24 dapagliflozin propanediol 10 mg 10 mg PO DAILY 02/03/25 tablet (Farxiga) Previous Rx's ?Medication ?Instructions ?Recorded walker #1 ea 01/11/22 walker #1 ea 01/15/22 Band-Aid Gauze Pads 4 X 4 #25 ea 04/16/22 bandage (gauze bandage) elastic bandage 6 X 1.8 yard #6 ea 04/16/22 off loading boot (Aircast off #1 ea 04/16/22 loading boot) calcium alginate ag #5 ea 04/23/22 sterile gauze #40 ea 04/23/22 metoclopramide HCl 10 mg tablet 10 mg PO Q8H PRN nausea and 10/28/24 (Reglan) vomiting #30 tabs Allergies Allergy/AdvReac Type Severity Reaction Status Date / Time morphine AdvReac Intermediate Hallucinati Verified 02/03/25 11:07 ons Review of Systems Review of Systems Positive abdominal pain positive nausea positive vomiting PMFSH Past Medical History Attestation statement: The following information was validated with the patient. Medical History Obesity (BMI 30-39.9) PAD (peripheral artery disease) Afib Amputation of left great toe Lower limb amputation, great toe CAD (coronary artery disease) DMII (diabetes mellitus, type 2) Orthopedic hardware present Hyperglycemia Cellulitis Asthma Diabetes Hypertension FHx: bilateral hip replacements Surgical History History of amputation of toe (07/29/22) History of amputation of great toe (01/07/22) History of back surgery History of neck surgery History of ankle surgery H/O bilateral hip replacements S/P quadruple vessel bypass Family History Family History Other No family history of coronary artery disease Social History Social History Household Members: Spouse Household Members Other:: 3 Housing: House Are you a primary daycare assistant to a significant other at home: No Do you presently have visiting nurse or other home services: No Alcohol intake: never Comment: refused bed or chair alarm Patient Tobacco Use Status: Former Tobacco user Tobacco use type: Cigarette Smoked in Last 30 Days: No Second Hand Smoke Exposure: No Use of substances other than those prescribed or required for medical reasons: No Substance Use Type: Marijuana Advance Directives: Yes Advance Directives Information Provided: No Advance Directives on File: No Advance Directives Date on File: 01/04/22 Do you have a plan to hurt others: No Plan service: No Current occupational status: disabled Physical Exam ED Vital Signs: Vital Signs - 24 hr 02/03/25 11:03 02/03/25 11:53 Temperature 98.1 F Pulse Rate 102 H 89 Respiratory Rate 20 20 Blood Pressure 186/82 H 199/88 H Pulse Oximetry 98 100 Oxygen Delivery Method Room Air Room Air BMI result Body Mass Index 35.9 Appearance: Alert. Oriented X3. No acute distress. Eyes: Pupils equal, round and reactive to light. ENT: Pharynx normal. Neck: Normal inspection. Neck supple. No lymph nodes noted. No crepitus CVS: Normal heart rate and rhythm. Pulses normal. Normal S1 and S2 Respiratory: No respiratory distress. Breath sounds normal. No Wheezing. No rales Abdomen: Soft and nontender. No rigidity. No distention. good BS x4 Skin: Skin warm and dry. Normal skin color. Normal skin turgor. Extremities: No lower extremity edema. Neurovascular intact to all extremities. No Lacerations. No Rash Neuro: Oriented X 3. No motor deficit. No sensory deficit. Moving all extermities. No slurred speech Medical Decision Making Medical Decision Making MDM Narrative: Patient is 64 years old presents today with having nausea vomiting epigastric pain. Has a long history of diabetes. Patient's pH came back at 7.3 however patient's bicarb was low patient's anion gap is over 20 patient's beta hydroxybutyrate is elevated. Currently his sugar is in the 300 range. Will start patient on D5 normal saline in addition to insulin drip. patient's case consulted by the ship washer team. My interpretation patient's blood gas is consistent with diabetic ketoacidosis. My interpretation patient's chest x-ray is grossly negative. Will do QRS of 1 hour Accu-Chek Differential Diagnosis Differential Diagnoses: The differential diagnosis associated with the presentation includes Admission/Observation Consideration of admission/observation: Escalation of care including admission/observation considered Consult Healthcare Provider Management of the patient was discussed with: Branch Billing Payroll Clerk ( ship washer) Lab Data MDM Lab Attestation statement: I reviewed the patient's lab results. 02/03/25 12:34 02/03/25 12:34 Labs: Lab Results 02/03/25 02/03/25 02/03/25 Range/Units 11:34 12:34 12:39 WBC 17.2 H (4.8-10.8) X10*3/uL RBC 4.83 (4.60-5.80) X10*6/uL Hgb 14.1 (14.0-18.0) g/dl Hct 40.8 L (42.0-52.0) % MCV 84.5 (80.0-98.0) fL MCH 29.2 (27.0-33.0) pg MCHC 34.6 (31.0-36.0) g/dl RDW 13.6 (11.0-16.0) % Plt Count 311 (160-400) X10*3/uL MPV 9.8 (9.4-12.4) fL Immature Gran % (Auto) 0.6 H (0.0-0.4) % Neut % (Auto) 84.2 H (45-73) % Lymph % (Auto) 10.3 L (20-40) % Coleman % (Auto) 4.4 (2-11) % Eos % (Auto) 0.1 (0-4) % Baso % (Auto) 0.4 (0-2) % Lymph # (Auto) 1.8 (1.2-4.9) X10*3/uL Coleman # (Auto) 0.8 (0.1-1.2) X10*3/uL Eos # (Auto) 0.0 (0.0-0.4) X10*3/uL Baso # (Auto) 0.1 (0.0-0.2) X10*3/uL Abs Immat Gran (auto) 0.10 H (0.00-0.03) X10*3/uL Absolute Neuts (auto) 14.5 H (2.0-8.3) x10*3/uL Absolute Nucleated RBC 0.000 (0.0-0.012) X10*3/uL Nucleated RBC % (auto) 0.0 (0.0-0.2) /100WBC Hold Blue Top SEE NOTE VBG pH 7.35 (7.32-7.43) VBG pCO2 27 mmHg VBG pO2 58 mmHg VBG HCO3 15 L (22-26) mmol/L VBG O2 Saturation 86.0 % VBG Base Excess -8.4 mmol/L Sodium 142 (135-145) mmol/L Potassium 4.2 (3.3-5.1) mmol/L Chloride 109 H (96-108) mmol/L Carbon Dioxide 14 L (22-29) mmol/L Anion Gap 23 H (12-20) BUN 12 (9-16) mg/dL Creatinine 0.76 (0.5-1.4) mg/dL Estim Creat Clear Calc 116.5 Estimated GFR > 60 Random Glucose 294 H (60-115) mg/dL Calcium 9.5 D (8.4-10.2) mg/dL Total Bilirubin 0.7 (0.0-1.0) mg/dL Direct Bilirubin 0.2 (0.0-0.5) mg/dL AST 18 (5-37) U/L ALT 6 (0-40) U/L Alkaline Phosphatase 75 (39-117) U/L Troponin I High Sens 5.0 (<3.5-35.0) ng/L Total Protein 6.9 (6.5-8.0) g/dL Albumin 4.1 (3.5-5.0) g/dL Lipase < 4 L (8-78) U/L Beta-Hydroxybutyrate 4.36 H (0.02-0.27) mmol/L Influenza Type A (PCR) NEGATIVE (Negative) Influenza Type B (PCR) NEGATIVE (Negative) RSV RNA Qual (PCR) NEGATIVE (Negative) SARS-CoV-2 RNA (RT-PCR) NEGATIVE (Negative) Independent Interpretation I performed an independent interpretation of an: EKG ( my interpretation patient's EKG showed a sinus rhythm heart rate is 90 AK QRS QTC within normal limits is nonspecific T-wave flattening noted in the inferior leads.) and Plain X-Ray Radiology Impression Discussion of test interpretation with radiology: I have reviewed the radiologist's reading. External Record Review External record reviewed: Inpatient record Previous DKA record re Chronic Conditions Patient?s care impacted by: Hypertension Social Determinants Patient?s care significantly limited by Social Determinants of Health including: Problems related to primary support group Medications Administered Generic Name Dose Route Start Last Admin Trade Name Freq PRN Reason Stop Dose Admin Insulin Human Regular 100 unit in 100 mls @ 5 mls/hr 02/03/25 13:30 02/03/25 13:53 Myxredlin IVCONT 5 unit/hr .Q20H WILLIAM 5 mls/hr Administration Protocol 5 UNIT/HR Dextrose/Sodium Chloride 1,000 mls @ 125 mls/hr 02/03/25 13:30 02/03/25 13:53 D5ns IVCONT 125 mls/hr .Q8H WILLIAM Administration Discontinued Medications Generic Name Dose Route Start Last Admin Trade Name Freq PRN Reason Stop Dose Admin Hydromorphone HCl 0.5 mg 02/03/25 11:43 02/03/25 12:33 Hydromorphone Hcl 0.5 Mg/0.5 Ml Syringe IVPUSH 02/03/25 11:44 0.5 mg ONCE ONE Administration Protocol Sodium Chloride 1,000 mls @ 999 mls/hr 02/03/25 11:45 02/03/25 13:44 Ns IV 02/03/25 12:45 Infused .Q1H1M WILLIAM Infusion Iohexol 100 ml 02/03/25 14:28 02/03/25 14:28 Iohexol 350 Mg/Ml 100 Ml Infus..Btl IV 02/03/25 14:29 85 ml ONCE ONE Administration Ondansetron HCl 4 mg 02/03/25 11:43 02/03/25 12:33 Ondansetron Hcl 4 Mg/2 Ml Vial IVPUSH 02/03/25 11:44 4 mg ONCE ONE Administration Critical Care Time Critical Care Time Critical Care Time: Yes Total Critical Care Time: 40 Attestation: I have personally provided 40 minutes of critical care time exclusive of time spent on separately billable procedures. Time includes review of lab data, radiology results, discussion with consultants, and monitoring for potential decompensation. Interventions were performed as documented above Discharge Plan Discharge Clinical Impression: DKA (diabetic ketoacidosis)
[2025-02-03] MEDS: ondansetron HCL 4 MG/2 ML VIAL IVPUSH (12:33)
[2025-02-03] MEDS: HYDROmorphone HCl 0.5 MG/0.5 ML SYRINGE IVPUSH (12:33)
[2025-02-03] MEDS: 0.9 % Sodium Chloride 1,000 ML 999 ML IV (12:33)
[2025-02-03 12:38] LABS: MANUAL DIFF FLAG NO
[2025-02-03 12:43] LABS: Basophils Absolute Auto 0.1 X10*3/uL (0.0-0.2); Basophils Percent Auto 0.4 % (0-2); Eosinophils Percent Auto 0.1 % (0-4); Hematocrit 40.8 % (42.0-52.0); Hemoglobin 14.1 g/dl (14.0-18.0); Imm Gran Pct Auto 0.6 % (0.0-0.4); Lymphocytes Absolute Auto 1.8 X10*3/uL (1.2-4.9); Lymphocytes Percent Auto 10.3 % (20-40); Mean Corpuscular HGB Conc 34.6 g/dl (31.0-36.0); Mean Corpuscular Hemoglobin 29.2 pg (27.0-33.0); Mean Corpuscular Volume 84.5 fL (80.0-98.0); Mean Platelet Volume 9.8 fL (9.4-12.4); Monocytes Absolute Auto 0.8 X10*3/uL (0.1-1.2); Monocytes Percent Auto 4.4 % (2-11); Neutrophils Absolute Auto 14.5 x10*3/uL (2.0-8.3); Neutrophils Percent Auto 84.2 % (45-73); Platelet Count 311 X10*3/uL (160-400); Red Blood Count 4.83 X10*6/uL (4.60-5.80); Red Cell Distribution Width 13.6 % (11.0-16.0); White Blood Count 17.2 X10*3/uL (4.8-10.8)
[2025-02-03 12:43] LABS: VBG Base Excess -8.4 mmol/L; VBG HCO3 15 mmol/L (22-26); VBG pCO2 27 mmHg; VBG pH 7.35 (7.32-7.43); VBG pO2 58 mmHg
[2025-02-03 12:44] LABS: Venous Blood Gas Refer to POC result
[2025-02-03 12:57] LABS: Beta-Hydroxybutyrate 4.36 mmol/L (0.02-0.27)
[2025-02-03 13:01] LABS: Alanine Aminotransferase 6 U/L (0-40); Albumin Level 4.1 g/dL (3.5-5.0); Alkaline Phosphatase 75 U/L (39-117); Anion Gap 23 (12-20); Aspartate Amino Transferase 18 U/L (5-37); Bilirubin Direct 0.2 mg/dL (0.0-0.5); Bilirubin Total 0.7 mg/dL (0.0-1.0); Blood Urea Nitrogen 12 mg/dL (9-16); Calcium 9.5 mg/dL (8.4-10.2); Carbon Dioxide 14 mmol/L (22-29); Chloride 109 mmol/L (96-108); Creatinine Clr Calc Pharmacy 116.5; Estimated Glomerular Filt Rate > 60; Glucose Random 294 mg/dL (60-115); Lipase < 4 U/L (8-78); Potassium 4.2 mmol/L (3.3-5.1); Sodium 142 mmol/L (135-145); Total Protein 6.9 g/dL (6.5-8.0)
[2025-02-03 13:17] LABS: Influenza A PCR NEGATIVE (Negative); Influenza B PCR NEGATIVE (Negative); Resp Syncy Virus RNA Qual PCR NEGATIVE (Negative); SARS COV2 PCR INHOUSE NEGATIVE (Negative)
[2025-02-03 13:27] LABS: Glucose, Whole Blood 255 mg/dL (60-115)
[2025-02-03] MEDS: Dextrose 5 % and 0.9 % NaCl 1,000 ML 125 ML IVCONT (13:53)
[2025-02-03] MEDS: Insulin Regular/NS 100 UNIT/100 ML PLAST..BAG IVCONT ×2 (13:53→21:20)
--- NOTE | 2025-02-03 14:00 | PC.NURSE ---
patient a&ox3, pt very difficult stick, IV inserted to Rt ac area- unable to obtain labs off this site, tech was able to obtain labs with a butterfly. additionally there were multiple failed attempts to left arm with ultrasound trained nurse, additional nursing staff attempted an rt upper arm as well as lt ac multiple attempts but were finally able to obtain them. pt medicated with pain medication for 10/10 pain which decreased it to 8/10, pt continues to dry heave after zofran given by EMS as well as here in the ED. 1L NS given per order. security monitor was applied, ekg was performed. pt was found to be in DKA. Pt currently has D5NS@125 as well as insulin 5U/hr running- prior to starting his poc was 255. pt currently in CT scan, report was given to ICU and pt will be transported to ICU
--- OUTSIDE RECORDS SUMMARY | 2025-02-03 14:12 | XMS_ITS ---
Author Organization [facility] Care Team Providers Care Adobe Maker Name Role Phone Rafaela Colin Unavailable Unavailable Halima Storm Unavailable Unavailable Jm MULLIGAN, Tony Jackson Unavailable Unavailable Elida Hernandez Unavailable Unavailable Devon, Cecilia Unavailable Unavailable Maingi, Shadrack Unavailable Unavailable Allergies and adverse reactions Code CodeSystem Substance Reaction Severity StartDate Concern Status 7052 RXNORM Morphine Moderate 07/06/2021 active 161 RXNORM Acetaminophen Skin reaction - finding (code- 483043325, SNOMED CT) Moderate 07/06/2021 active Care Team Name Role Address Phone Organization Dates Halima Storm PCP [address] [place] [address], [facility] (Office): : [facility] 07/07/2021 - 07/21/2021 Rafaela Colin Attending Physician [place], [place], [facility], [facility] (Office): : [facility] 07/07/2021 - 07/21/2021 Tony Oneal NP Attending Physician [address] [place] [address], [facility] (Office): [facility] 07/07/2021 - 07/21/2021 Elida Hernandez Attending Physician [address] [place] [address], [facility] (Office): : [facility] 07/07/2021 - 07/21/2021 Cecilia Osorio Attending Physician [address], [place], [address], [facility] (Office): : [phone] [facility] 07/07/2021 - 07/21/2021 Bianca Dunne Attending Physician [address], [place], [address], [facility] (Office): : [facility] 07/07/2021 - 07/21/2021 Goals Section Description Status Target Date I will work with the IDT to ensure a safe discha rge. Active 10/07/2021 My MOLST will be respected. Active 09/26 My PASRR matches my SNF plac ement and staff will assist me accordingly. Active 10/07/2021 Resident will maintain curre nt weight with 75% intake of meals through next review. Active 10/07/2021 The resident will be free of infection, pain or bleeding in the oral cavity by review date. Active 10/07/2021 The resident will be/remain free of psychotropic drug related complications, including movement disorder, discomfort, hypotension, gait disturbance, constipation/impaction or cognitive/behavioral impairment through review date. Active 12/08/2020 The resident will have no in dications of acute eye problems through the review date. Active 10/07/2021 The resident will improve cu rrent level of function through the review date. Active 10/07/2021 The resident will not sustai n serious injury through the review date. Active 10/07/2021 The resident will verbalize adequate relief of pain or ability to cope with incompletely relieved pain through the review date. Active 10/07/2021 Mental Status Section Date Assessment Total Score Description 07/20/2021 CAM 0 No delirium ind icated Problems Problem # Description Date of onset Resolved Date Code CodeSystem Concern Status 1 ESSENTIAL (PRIMARY) HYPERTENSION 07/07/[address] active 2 FOOT DROP, LEFT FOOT 07/07/[address] active 3 OTHER REDUCED MOBILITY 07/07/[address] active 4 OTHER SPECIFIED HEALTH STATUS 07/07/[address] active 5 OTHER SPECIFIED POSTPROCEDURAL STATES 07/07/[address] active 6 PAIN, UNSPECIFIED 07/07/[address] active 7 PRESENCE OF UNSPECIFIED ARTIFICIAL HIP JOINT 07/07/[address] active 8 TYPE 2 DIABETES MELLITUS WITHOUT COMPLICATIONS 07/07/[address] active 9 UNSPECIFIED DISLOCATION OF LEFT HIP, SEQUELA 07/07/[address] active 10 WEAKNESS 07/07/[address] active Reason for Referral No Reasons for Referral Entered Social History Social History Observation Description Start Date End Date Code Code System Current Smoking Status Tobacco smoking consumption unknown 191885603 SNOMED CT Sex Assigned At Male 1960 62607-9 [facility] Vital Signs Code Code System Vitals Name Values and Units Timing Information 9279-1 [facility] Respiratory Rate Value=16.0 Units=/m in 07/21/2021 8462-4 [facility] Blood Pressure-Diastolic Value=76 Un its=mmHg 07/21/2021 8480-6 [facility] Blood Pressure-Systolic Ryywx=517 Un its=mmHg 07/21/2021 8310-5 [facility] Body Temperature Value=97.5 Units=?? F 07/21/2021 8867-4 [facility] Heart rate Value=76.0 Units=/min 15700-7 [facility] O2 % BldC Oximetry Value=97.0 Units= % 07/21/2021 42871-1 [facility] Pain Level Value=2.0 07/20/2021 77464-2 [facility] Weight Grudc=862.0 Units=Lbs 2339-0 [facility] Blood Sugar Vdqek=499.0 Units=mg/dL 07/09/2021
[2025-02-03] MEDS: iohexoL 350 MG/ML 100 ML INFUS..BTL IV (14:28)
--- NOTE | 2025-02-03 14:56 | PC.NURSE ---
md informed of pt's abd pain, nausea and BP upon arrival
--- NOTE | 2025-02-03 14:57 | PHA.MEDREC ---
Addendum entered by Ashish Ocampo RPh 02/03/25 16:24: Med rec was reviewed by [email or web address]. Original Note: Pharmacy Consult ? Medication Reconciliation Pharmacy has completed the medication reconciliation. Spoke to patient to confirm med list. Patient was able to say yes or no to all his medications. Patient confirmed Lantus U-100 is 10 units BID, and Insulin Lispro is per sliding scale. Patient last had his medications 2 days ago.
--- NOTE | 2025-02-03 15:07 | P.HPCC_ITS ---
History of Present Illness Date of Service: 02/03/25 Chief Complaint: Nausea, vomiting, and abdominal pain 64-year-old gentleman with underlying history of diabetes mellitus, diabetic gastroparesis, CAD presented complain of on day history of nausea, vomiting, and abdominal epigastric pain. On ER evaluation patient noted to have metabolic acidosis with elevated beta hydroxybutyrate hyperglycemia. Patient's CT abdomen is pending. He has been started on insulin drip and admitted to the intensive care unit. Review of Systems 2 Constitutional: Constitutional: Denies daytime sleepiness, Denies excessive sweating, Denies fatigue, Denies fever(s), Denies lethargy, Denies malaise, Denies night sweats, Denies snoring and Denies weight loss Eyes: Eyes: Denies blurry vision and Denies itchy eyes ENT: Denies nasal congestion, Denies post nasal drip, Denies sinus pain, Denies sinus pressure and Denies other ( Thrush) Cardiovascular: Cardiovascular: Denies chest pain, Denies pedal edema, Denies dyspnea, Denies orthopnea and Denies paroxysmal nocturnal dyspnea Respiratory: Respiratory: Denies cough, Denies hemoptysis, Denies excessive phlegm production, Denies dyspnea, Denies snoring and Denies wheezing Gastrointestinal: Gastrointestinal: Reports abdominal pain, Denies heartburn, Reports nausea and Reports vomiting Musculoskeletal: Musculoskeletal: Denies myalgias, Denies arthralgias and Denies joint swelling Integumentary/Breasts: Skin/Breast: Denies rash Neurologic: Denies memory loss and Denies seizure-like activity Psychiatric: Psychiatric: Denies abnormal sleep pattern, Denies anxiety and Denies memory loss Endocrine: Endocrine: Denies excessive sweating, Denies fatigue and Denies heat intolerance Hematologic/Lymphatic: Hematologic/Lymphatic: Denies easy bruising Allergic/Immunologic: Allergic/Immunologic: Denies itchy eyes, Denies seasonal rhinorrhea and Denies wheezing PMFSH Past Medical History Medical History (Updated 02/03/25 @ 15:35 by Fernandez Campos MD) Obesity (BMI 30-39.9) PAD (peripheral artery disease) Afib Amputation of left great toe Lower limb amputation, great toe CAD (coronary artery disease) DMII (diabetes mellitus, type 2) Orthopedic hardware present Hyperglycemia Cellulitis Asthma Diabetes Hypertension FHx: bilateral hip replacements Family History Family History Other No family history of coronary artery disease Surgical History Surgical History History of amputation of toe (07/29/22) History of amputation of great toe (01/07/22) History of back surgery History of neck surgery History of ankle surgery H/O bilateral hip replacements S/P quadruple vessel bypass Social History Social History Household Members: Family Household Members Other:: 3 Housing: House Are you a primary vp care management to a significant other at home: No Do you presently have visiting nurse or other home services: No Alcohol intake: never Comment: refused bed or chair alarm Patient Tobacco Use Status: Former Tobacco user Tobacco use type: Cigarette Smoked in Last 30 Days: No Second Hand Smoke Exposure: No Use of substances other than those prescribed or required for medical reasons: No Substance Use Type: Marijuana Is there a partner from a previous relationship who is making you feel unsafe now?: No Are you made to feel afraid or neglected: No Advance Directives: No Advance Directives Information Provided: Yes Advance Directives on File: No Advance Directives Date on File: 01/04/22 Do you have a plan to hurt others: No Plan Recently lost weight without trying: Unsure service: No Current occupational status: disabled Meds Allergies Allergy/AdvReac Type Severity Reaction Status Date / Time morphine AdvReac Intermediate Hallucinati Verified 02/03/25 11:07 ons Active Medications: Current Medications Dextrose (Dextrose 50 % 25 Gm/50 Ml Syringe) 25 gm IVPUSH Q30M PRN PRN Reason: BG < 70 Fentanyl (Fentanyl Citrate/Pf 100 Mcg/2 Ml Vial) 100 mcg IVPUSH Q2H PRN; Protocol PRN Reason: Pain, Severe (Pain Scale 7-10) Insulin Human Regular (Myxredlin) 100 unit in 100 mls @ 5 mls/hr IVCONT .Q20H [facility]; Protocol Last Admin: 02/03/25 13:53 Dose: 5 unit/hr, 5 mls/hr Dextrose/Lactated Ringer's (D5lr) 1,000 mls @ 150 mls/hr IVCONT .Q6H40M [facility] Rivaroxaban (Rivaroxaban 20 Mg Tablet) 20 mg PO DAILY@1700 [facility] Home Medications ?Medication ?Instructions ?Recorded ?Confirmed ?Last Taken ?Type ezetimibe 10 mg tablet 10 mg PO DAILY 01/03/22 02/03/25 02/01/25 History gabapentin 300 mg capsule 300 mg PO TID 01/03/22 02/03/25 02/01/25 History insulin glargine 100 unit/mL 10 unit subcut BID 01/03/22 02/03/25 02/01/25 History subcutaneous solution (Lantus U-100 Insulin) isosorbide mononitrate 30 mg 30 mg PO DAILY 01/03/22 02/03/25 02/01/25 History tablet,extended release 24 hr loratadine 10 mg tablet 10 mg PO DAILY 01/03/22 02/03/25 02/01/25 History losartan 25 mg tablet 25 mg PO DAILY 01/03/22 02/03/25 02/01/25 History meclizine 25 mg tablet 25 mg PO TID PRN Dizziness Or 01/03/22 02/03/25 12/14/24 History Vertigo pantoprazole 40 mg tablet,delayed 40 mg PO BID@0630,1630 01/03/22 02/03/25 02/01/25 History release rosuvastatin 40 mg tablet 40 mg PO BEDTIME 01/03/22 02/03/25 02/01/25 History aspirin 81 mg tablet,delayed 81 mg PO DAILY 08/04/22 02/03/25 02/01/25 History release furosemide 20 mg tablet 20 mg PO DAILY 11/13/22 02/03/25 02/01/25 History venlafaxine 100 mg tablet 100 mg PO BID 11/13/22 02/03/25 02/01/25 History metoprolol succinate 25 mg 25 mg PO DAILY 10/14/24 02/03/25 02/01/25 History tablet,extended release 24 hr insulin lispro 100 unit/mL See Protocol subcut QIDACHS 12/16/24 02/03/25 02/01/25 History subcutaneous solution oxycodone 10 mg tablet 10 mg PO Q4H PRN Pain 12/16/24 02/03/25 12/14/24 History rivaroxaban 20 mg tablet (Xarelto) 20 mg PO DAILY@1700 12/16/24 02/03/2502/01/25 History dapagliflozin propanediol 10 mg 10 mg PO DAILY 02/03/25 02/03/25 02/01/25 History tablet (Farxiga) Physical Exam 2 Vital Signs: Vital Signs: Last Vital Signs Temp 98.1 F 02/03/25 14:05 Pulse 96 02/03/25 14:05 Resp 18 02/03/25 14:05 BP 194/91 H 02/03/25 14:05 Pulse Ox 99 02/03/25 14:05 O2 Del Method Room Air 02/03/25 14:05 BMI result Body Mass Index 35.9 Const: General: no acute distress and alert Nutritional Appearance: not obese Orientation/consciousness: Other orientation findings ( oriented) HEENT: Head: Yes atraumatic Eyes: General: appearance normal, both eyes and all related structures S clerae: sclerae normal EOM: EOMs intact bilaterally Neck: Neck: Yes supple Lymphatic: no lymphadenopathy noted Resp: Effort & Inspection: normal respiratory effort and no use of accessory muscles Auscultation: clear to auscultation bilaterally Cardio: Rate: tachycardic Rhythm: regular rhythm Heart sounds: no gallops, no murmurs and no rubs GI: Palpation (GI): Soft to palpation and Other GI palpation findings present ( Nontender) Auscultation: normal bowel sounds Skin: General skin exam: other ( warm) Extrem: General: No clubbing, No cyanosis and No edema Results Labs 02/03/25 12:34 02/03/25 12:34 Labs: Laboratory Results - last 24 hr 02/03/25 02/03/25 02/03/25 11:34 12:34 12:39 MCV 84.5 MCH 29.2 MCHC 34.6 RDW 13.6 Plt Count 311 MPV 9.8 Immature Gran % (Auto) 0.6 H Neut % (Auto) 84.2 H Lymph % (Auto) 10.3 L Ogle % (Auto) 4.4 Eos % (Auto) 0.1 Baso % (Auto) 0.4 Lymph # (Auto) 1.8 Ogle # (Auto) 0.8 Eos # (Auto) 0.0 Baso # (Auto) 0.1 Abs Immat Gran (auto) 0.10 H Absolute Neuts (auto) 14.5 H Absolute Nucleated RBC 0.000 Nucleated RBC % (auto) 0.0 Hold Blue Top SEE NOTE VBG pH 7.35 VBG pCO2 27 VBG pO2 58 VBG HCO3 15 L VBG O2 Saturation 86.0 VBG Base Excess -8.4 Anion Gap 23 H Estim Creat Clear Calc 116.5 Estimated GFR > 60 POC Glucose Random Glucose 294 H Calcium 9.5 D Total Bilirubin 0.7 Direct Bilirubin 0.2 AST 18 ALT 6 Alkaline Phosphatase 75 Total Protein 6.9 Albumin 4.1 Lipase < 4 L Beta-Hydroxybutyrate 4.36 H Influenza Type A (PCR) NEGATIVE Influenza Type B (PCR) NEGATIVE RSV RNA Qual (PCR) NEGATIVE SARS-CoV-2 RNA (RT-PCR) NEGATIVE 02/03/25 13:23 MCV MCH MCHC RDW Plt Count MPV Immature Gran % (Auto) Neut % (Auto) Lymph % (Auto) Ogle % (Auto) Eos % (Auto) Baso % (Auto) Lymph # (Auto) Ogle # (Auto) Eos # (Auto) Baso # (Auto) Abs Immat Gran (auto) Absolute Neuts (auto) Absolute Nucleated RBC Nucleated RBC % (auto) Hold Blue Top VBG pH VBG pCO2 VBG pO2 VBG HCO3 VBG O2 Saturation VBG Base Excess Anion Gap Estim Creat Clear Calc Estimated GFR POC Glucose 255 H Random Glucose Calcium Total Bilirubin Direct Bilirubin AST ALT Alkaline Phosphatase Total Protein Albumin Lipase Beta-Hydroxybutyrate Influenza Type A (PCR) Influenza Type B (PCR) RSV RNA Qual (PCR) SARS-CoV-2 RNA (RT-PCR) Imaging Radiologist's Impressions: Impressions Chest X-Ray 02/03/25 11:55 IMPRESSION: 1. No active pulmonary disease. 2. Prior sternotomy and CABG. Electronically signed by: Nicko Smith MD 02/03/2025 12:24 PM EDT Assessment and Plan (1) DKA (diabetic ketoacidosis): Status: Acute (2) PVD (peripheral vascular disease): Status: Acute (3) CAD (coronary artery disease): Status: Acute Plan Assessment: 64-year-old gentleman admitted with diabetic ketoacidosis requiring insulin drip. Plan: Neuro: No acute issues. Cardiac: No acute issues. Underlying AFib, PVD, and CAD. Pulmonary: No acute issues. Renal: No acute issues. Endo: Diabetic ketoacidosis requiring insulin drip, continue to titrate off as tolerated. GI: No acute issues. ID: No acute issues Heme/Onc: No acute issues. Psych: No acute issues. Miscellaneous: No acute issues. Prophylaxis: Xarelto Diet: NPO
[2025-02-03 15:12] LABS: Glucose, Whole Blood 264 mg/dL (60-115)
[2025-02-03] MEDS: Dextrose 5 % and Lactated Ring 1,000 ML 150 ML IVCONT ×2 (15:12→21:18)
[2025-02-03] MEDS: fentaNYL citrate/PF 100 MCG/2 ML VIAL IVPUSH (15:12)
[2025-02-03] MEDS: Ketorolac Tromethamine 15 MG/ML VIAL IVPUSH (16:00)
[2025-02-03 16:06] LABS: Glucose, Whole Blood 261 mg/dL (60-115)
[2025-02-03] MEDS: Metoclopramide HCl 10 MG/2 ML VIAL IVPUSH ×2 (16:41→20:42)
[2025-02-03] MEDS: Ciprofloxacin Lactate/D5W 400 MG/200 ML PIGGYBACK 200 MG IV (16:42)
[2025-02-03 17:06] LABS: Glucose, Whole Blood 292 mg/dL (60-115)
[2025-02-03] MEDS: metroNIDAZOLE/NS 500 MG/100 ML PIGGYBACK 100 MG IV (17:10)
[2025-02-03] MEDS: HYDROmorphone HCl 1 MG/ML SYRINGE IVPUSH ×2 (17:10→21:17)
[2025-02-03] MEDS: Rivaroxaban 20 MG TABLET PO (17:28)
[2025-02-03 19:12] LABS: Glucose, Whole Blood 224 mg/dL (60-115)
[2025-02-03 19:16] LABS: Anion Gap 15 (12-20); Blood Urea Nitrogen 12 mg/dL (9-16); Calcium 8.8 mg/dL (8.4-10.2); Carbon Dioxide 16 mmol/L (22-29); Chloride 115 mmol/L (96-108); Creatinine Clr Calc Pharmacy 121.3; Estimated Glomerular Filt Rate > 60; Glucose Random 226 mg/dL (60-115); Potassium 4.2 mmol/L (3.3-5.1); Sodium 142 mmol/L (135-145)
[2025-02-03 19:35] LABS: Glucose, Whole Blood 191 mg/dL (60-115)
[2025-02-03 20:05] LABS: Glucose, Whole Blood 166 mg/dL (60-115)
[2025-02-03 20:37] LABS: Magnesium 1.8 mg/dL (1.6-2.6)
[2025-02-03 21:15] LABS: Glucose, Whole Blood 142 mg/dL (60-115)
[2025-02-03 22:23] LABS: Glucose, Whole Blood 149 mg/dL (60-115)
[2025-02-03 23:30] LABS: Glucose, Whole Blood 146 mg/dL (60-115)
[2025-02-04] VITALS (19 sets, daily range): BP systolic 112–172; BP diastolic 62–86; PULSE 74–102; RESP 10–23; TEMP 36.3–37.3; O2SAT 90–98; BMI 36.7
[2025-02-04 00:28] LABS: Glucose, Whole Blood 140 mg/dL (60-115)
[2025-02-04 01:23] LABS: Glucose, Whole Blood 139 mg/dL (60-115)
[2025-02-04] MEDS: Metoclopramide HCl 10 MG/2 ML VIAL IVPUSH ×4 (01:25→20:49)
[2025-02-04] MEDS: HYDROmorphone HCl 1 MG/ML SYRINGE IVPUSH ×5 (01:25→20:44)
[2025-02-04] MEDS: metroNIDAZOLE/NS 500 MG/100 ML PIGGYBACK 100 MG IV ×3 (01:29→17:49)
[2025-02-04 02:27] LABS: Glucose, Whole Blood 140 mg/dL (60-115)
[2025-02-04] MEDS: Dextrose 5 % and Lactated Ring 1,000 ML 150 ML IVCONT (02:51)
[2025-02-04 03:24] LABS: Glucose, Whole Blood 139 mg/dL (60-115)
[2025-02-04] MEDS: Ciprofloxacin Lactate/D5W 400 MG/200 ML PIGGYBACK 200 MG IV ×2 (05:12→16:41)
--- NOTE | 2025-02-04 05:20 | PC.NURSE ---
CARE ASSUMED 7PM..ALERT..ORIENTED X3..CALM/CO-OPERATIVE....VSS...NSR..RARE PVC..D5LR 150 CC/HR...INSULIN DRIP PER DEC..CURRENTLY 2 UNITS/HR..STABLE POC GLUCOSE...PROVIDER CHANGED POC GLUCOSES TOQ2 HRS..PRN REGLAN AND DILAUDID PER DEC FOR C/O INTERMITTANT NAUSEA AND ABDOMINAL PAIN..PROVIDER AWARE
[2025-02-04 05:30] LABS: Glucose, Whole Blood 144 mg/dL (60-115); VBG HCO3 20 mmol/L (22-26); VBG pCO2 33 mmHg; VBG pO2 42 mmHg
[2025-02-04 05:33] LABS: Venous Blood Gas Refer to POC result
[2025-02-04 05:52] LABS: MANUAL DIFF FLAG NO
[2025-02-04 05:56] LABS: Basophils Percent Auto 0.3 % (0-2); Eosinophils Percent Auto 0.1 % (0-4); Hematocrit 38.7 % (42.0-52.0); Hemoglobin 12.8 g/dl (14.0-18.0); Imm Gran Abs Auto 0.04 X10*3/uL (0.00-0.03); Imm Gran Pct Auto 0.3 % (0.0-0.4); Lymphocytes Absolute Auto 3.6 X10*3/uL (1.2-4.9); Lymphocytes Percent Auto 26.7 % (20-40); Mean Corpuscular HGB Conc 33.1 g/dl (31.0-36.0); Mean Corpuscular Hemoglobin 28.7 pg (27.0-33.0); Mean Corpuscular Volume 86.8 fL (80.0-98.0); Mean Platelet Volume 9.8 fL (9.4-12.4); Monocytes Absolute Auto 1.4 X10*3/uL (0.1-1.2); Monocytes Percent Auto 10.1 % (2-11); Neutrophils Absolute Auto 8.4 x10*3/uL (2.0-8.3); Neutrophils Percent Auto 62.5 % (45-73); Platelet Count 302 X10*3/uL (160-400); Red Blood Count 4.46 X10*6/uL (4.60-5.80); Red Cell Distribution Width 13.9 % (11.0-16.0); White Blood Count 13.4 X10*3/uL (4.8-10.8)
[2025-02-04 06:03] LABS: Appearance Urine Clear; Bacteria Urine None Seen (None Seen); Color Urine Yellow; Glucose Urine UA >=1000 mg/dL (Negative); Hyaline Casts Urine 0-2 /LPF (0-2); Leukocyte Esterase Urine Negative (Negative); Nitrite Urine Negative (Negative); RBC Urine 0-2 /HPF (0-2); Specific Gravity - Urine >= 1.030 (1.005-1.025); Squamous Epithelial Cell Urine 0-2 /HPF (0-2); UMIC TRIGGER UACC YES; Urine Blood Negative (Negative); Urine Ketones 40 mg/dL (Negative); Urine Protein 100 (2+) mg/dL (Neg-Trace); WBC Urine 0-5 /HPF (0-5)
[2025-02-04 06:19] LABS: Amphetamine Screen Urine Not Detected (Not Detect); Barbiturates, Urine Not Detected (Not Detect); Benzodiazepines Screen Urine Not Detected (Not Detect); Buprenorphine Scr Not Detected (Not Detect); Cannabinoid Screen Urine POSITIVE (Not Detect); Cocaine Screen Urine Not Detected (Not Detect); Fentanyl, urine POSITIVE (Not Detect); Methadone Screen, Urine Not Detected (Not Detect); Opiate Screen Urine POSITIVE (Not Detect); Oxycodone Screen Urine Not Detected (Not Detect); Phencyclidine Screen Urine Not Detected (Not Detect)
[2025-02-04 06:25] LABS: Albumin Level 3.6 g/dL (3.5-5.0); Anion Gap 12 (12-20); Blood Urea Nitrogen 12 mg/dL (9-16); Calcium 9.2 mg/dL (8.4-10.2); Carbon Dioxide 20 mmol/L (22-29); Chloride 115 mmol/L (96-108); Creatinine Clr Calc Pharmacy 127.8; Estimated Glomerular Filt Rate > 60; Glucose Random 140 mg/dL (60-115); Magnesium 2.1 mg/dL (1.6-2.6); Phosphorus 2.4 mg/dL (2.7-4.5); Potassium 3.5 mmol/L (3.3-5.1); Sodium 143 mmol/L (135-145)
[2025-02-04] MEDS: Potassium Phosphate/NS 15 MMOL/250 ML PLAST..BAG 62.5 MMOL IV (08:05)
[2025-02-04] MEDS: 0.9 % Sodium Chloride Flush 3 ML SYRINGE IVFLUSH ×2 (08:05→23:21)
[2025-02-04] MEDS: Insulin Glargine,Hum.rec.anlog 100 UNIT/ML 10 ML VIAL 30 UNIT SUBCUT (08:18)
[2025-02-04 08:19] LABS: Glucose, Whole Blood 174 mg/dL (60-115)
--- NOTE | 2025-02-04 10:30 | MHC.CM.PN ---
Met with pt and spoke with spouse Holli by phone to review d/c planning needs: pt resides w/spouse and son. No current services - has working glucometer and DM supplies: pt and spouse drive. Holli states pt is under tremendous stress and isn't managing his DM well. Holli states their son is on a transplant list and Patric's brother is on hospice care. Discussed possible [facility] services to assist w/teaching and medication management - both receptive; referral to be made. HCP requested: Spouse to transport to home
[2025-02-04 11:43] LABS: Glucose, Whole Blood 158 mg/dL (60-115)
[2025-02-04] MEDS: Insulin Lispro 100 UNIT/ML 3 ML VIAL SUBCUT ×2 (11:51→16:44)
--- NOTE | 2025-02-04 12:03 | PM.CCPN ---
Subjective Subjective Date of Service: 02/04/25 Interval History: 64-year-old gentleman with underlying history of diabetes mellitus, diabetic gastroparesis, CAD presented complain of on day history of nausea, vomiting, and abdominal epigastric pain. On ER evaluation patient noted to have metabolic acidosis with elevated beta hydroxybutyrate hyperglycemia. Patient's CT abdomen with findings of pancolitis. He has been started on antibiotics and insulin drip and admitted to the intensive care unit. No events overnight. Titrated off insulin drip. Critical Care Time (minutes): 0 Physical Exam Vital Signs: Vital Signs: Last Vital Signs Temp 97.3 F 02/04/25 08:00 Pulse 80 02/04/25 11:00 Resp 14 02/04/25 11:00 BP 144/75 H 02/04/25 11:00 Pulse Ox 95 02/04/25 11:00 O2 Del Method Room Air 02/04/25 11:00 BMI result Body Mass Index 36.7 Const: General: no acute distress, alert and awake Eyes: Sclerae: sclerae normal EOM: EOMs intact bilaterally Neck: Neck: Yes no lymphadenopathy, Yes trachea midline and Yes supple Resp: Effort & Inspection: normal respiratory effort and no respiratory distress Auscultation: clear to auscultation bilaterally Cardio: Rate: regular rate Rhythm: regular rhythm Heart sounds: no gallops, no murmurs and no rubs GI: Palpation (GI): Soft to palpation and Other GI palpation findings present ( Nontender) Auscultation: normal bowel sounds Extrem: General: Yes no pedal edema, No clubbing and No cyanosis Objective Data Labs 02/04/25 05:20 02/04/25 05:20 Labs: Laboratory Results - last 24 hr 02/03/25 02/03/25 02/03/25 12:34 12:39 13:23 WBC 17.2 H RBC 4.83 Hgb 14.1 Hct 40.8 L MCV 84.5 MCH 29.2 MCHC 34.6 RDW 13.6 Plt Count 311 MPV 9.8 Immature Gran % (Auto) 0.6 H Neut % (Auto) 84.2 H Lymph % (Auto) 10.3 L [place] % (Auto) 4.4 Eos % (Auto) 0.1 Baso % (Auto) 0.4 Lymph # (Auto) 1.8 [place] # (Auto) 0.8 Eos # (Auto) 0.0 Baso # (Auto) 0.1 Abs Immat Gran (auto) 0.10 H Absolute Neuts (auto) 14.5 H Absolute Nucleated RBC 0.000 Nucleated RBC % (auto) 0.0 VBG pH 7.35 VBG pCO2 27 VBG pO2 58 VBG HCO3 15 L VBG O2 Saturation 86.0 VBG Base Excess -8.4 Sodium 142 Potassium 4.2 Chloride 109 H Carbon Dioxide 14 L Anion Gap 23 H BUN 12 Creatinine 0.76 Estim Creat Clear Calc 116.5 Estimated GFR > 60 POC Glucose 255 H Random Glucose 294 H Calcium 9.5 D Phosphorus Magnesium Total Bilirubin 0.7 Direct Bilirubin 0.2 AST 18 ALT 6 Alkaline Phosphatase 75 Troponin I High Sens 5.0 Total Protein 6.9 Albumin 4.1 Lipase < 4 L Beta-Hydroxybutyrate 4.36 H Urine Color Urine Appearance Urine pH Ur Specific [place] Urine Protein Urine Glucose (UA) Urine Ketones Urine Blood Urine Nitrite Ur Leukocyte Esterase Urine RBC Urine WBC Ur Squamous Epith Cells Urine Bacteria Hyaline Casts Urine Opiates Screen Ur Buprenorphine Scrn Ur Oxycodone Screen Urine Methadone Screen Urine Fentanyl Screen Ur Barbiturates Screen Ur Phencyclidine Scrn Ur Amphetamines Screen U Benzodiazepines Scrn Urine Cocaine Screen U Marijuana (THC) Screen Influenza Type A (PCR) NEGATIVE Influenza Type B (PCR) NEGATIVE RSV RNA Qual (PCR) NEGATIVE SARS-CoV-2 RNA (RT-PCR) NEGATIVE 02/03/25 02/03/25 02/03/25 15:09 16:02 17:03 WBC RBC Hgb Hct MCV MCH MCHC RDW Plt Count MPV Immature Gran % (Auto) Neut % (Auto) Lymph % (Auto) [place] % (Auto) Eos % (Auto) Baso % (Auto) Lymph # (Auto) [place] # (Auto) Eos # (Auto) Baso # (Auto) Abs Immat Gran (auto) Absolute Neuts (auto) Absolute Nucleated RBC Nucleated RBC % (auto) VBG pH VBG pCO2 VBG pO2 VBG HCO3 VBG O2 Saturation VBG Base Excess Sodium Potassium Chloride Carbon Dioxide Anion Gap BUN Creatinine Estim Creat Clear Calc Estimated GFR POC Glucose 264 H 261 H 292 H Random Glucose Calcium Phosphorus Magnesium Total Bilirubin Direct Bilirubin AST ALT Alkaline Phosphatase Troponin I High Sens Total Protein Albumin Lipase Beta-Hydroxybutyrate Urine Color Urine Appearance Urine pH Ur Specific [place] Urine Protein Urine Glucose (UA) Urine Ketones Urine Blood Urine Nitrite Ur Leukocyte Esterase Urine RBC Urine WBC Ur Squamous Epith Cells Urine Bacteria Hyaline Casts Urine Opiates Screen Ur Buprenorphine Scrn Ur Oxycodone Screen Urine Methadone Screen Urine Fentanyl Screen Ur Barbiturates Screen Ur Phencyclidine Scrn Ur Amphetamines Screen U Benzodiazepines Scrn Urine Cocaine Screen U Marijuana (THC) Screen Influenza Type A (PCR) Influenza Type B (PCR) RSV RNA Qual (PCR) SARS-CoV-2 RNA (RT-PCR) 02/03/25 02/03/25 02/03/25 18:11 18:14 19:32 WBC RBC Hgb Hct MCV MCH MCHC RDW Plt Count MPV Immature Gran % (Auto) Neut % (Auto) Lymph % (Auto) [place] % (Auto) Eos % (Auto) Baso % (Auto) Lymph # (Auto) [place] # (Auto) Eos # (Auto) Baso # (Auto) Abs Immat Gran (auto) Absolute Neuts (auto) Absolute Nucleated RBC Nucleated RBC % (auto) VBG pH VBG pCO2 VBG pO2 VBG HCO3 VBG O2 Saturation VBG Base Excess Sodium 142 Potassium 4.2 Chloride 115 H Carbon Dioxide 16 L Anion Gap 15 BUN 12 Creatinine 0.73 Estim Creat Clear Calc 121.3 Estimated GFR > 60 POC Glucose 224 H 191 H Random Glucose 226 H Calcium 8.8 D Phosphorus 2.0 L Magnesium 1.8 Total Bilirubin Direct Bilirubin AST ALT Alkaline Phosphatase Troponin I High Sens Total Protein Albumin Lipase Beta-Hydroxybutyrate Urine Color Urine Appearance Urine pH Ur Specific [place] Urine Protein Urine Glucose (UA) Urine Ketones Urine Blood Urine Nitrite Ur Leukocyte Esterase Urine RBC Urine WBC Ur Squamous Epith Cells Urine Bacteria Hyaline Casts Urine Opiates Screen Ur Buprenorphine Scrn Ur Oxycodone Screen Urine Methadone Screen Urine Fentanyl Screen Ur Barbiturates Screen Ur Phencyclidine Scrn Ur Amphetamines Screen U Benzodiazepines Scrn Urine Cocaine Screen U Marijuana (THC) Screen Influenza Type A (PCR) Influenza Type B (PCR) RSV RNA Qual (PCR) SARS-CoV-2 RNA (RT-PCR) 02/03/25 02/03/25 02/03/25 20:01 21:10 22:19 WBC RBC Hgb Hct MCV MCH MCHC RDW Plt Count MPV Immature Gran % (Auto) Neut % (Auto) Lymph % (Auto) [place] % (Auto) Eos % (Auto) Baso % (Auto) Lymph # (Auto) [place] # (Auto) Eos # (Auto) Baso # (Auto) Abs Immat Gran (auto) Absolute Neuts (auto) Absolute Nucleated RBC Nucleated RBC % (auto) VBG pH VBG pCO2 VBG pO2 VBG HCO3 VBG O2 Saturation VBG Base Excess Sodium Potassium Chloride Carbon Dioxide Anion Gap BUN Creatinine Estim Creat Clear Calc Estimated GFR POC Glucose 166 H 142 H 149 H Random Glucose Calcium Phosphorus Magnesium Total Bilirubin Direct Bilirubin AST ALT Alkaline Phosphatase Troponin I High Sens Total Protein Albumin Lipase Beta-Hydroxybutyrate Urine Color Urine Appearance Urine pH Ur Specific [place] Urine Protein Urine Glucose (UA) Urine Ketones Urine Blood Urine Nitrite Ur Leukocyte Esterase Urine RBC Urine WBC Ur Squamous Epith Cells Urine Bacteria Hyaline Casts Urine Opiates Screen Ur Buprenorphine Scrn Ur Oxycodone Screen Urine Methadone Screen Urine Fentanyl Screen Ur Barbiturates Screen Ur Phencyclidine Scrn Ur Amphetamines Screen U Benzodiazepines Scrn Urine Cocaine Screen U Marijuana (THC) Screen Influenza Type A (PCR) Influenza Type B (PCR) RSV RNA Qual (PCR) SARS-CoV-2 RNA (RT-PCR) 02/03/25 02/04/25 02/04/25 23:25 00:25 01:20 WBC RBC Hgb Hct MCV MCH MCHC RDW Plt Count MPV Immature Gran % (Auto) Neut % (Auto) Lymph % (Auto) [place] % (Auto) Eos % (Auto) Baso % (Auto) Lymph # (Auto) [place] # (Auto) Eos # (Auto) Baso # (Auto) Abs Immat Gran (auto) Absolute Neuts (auto) Absolute Nucleated RBC Nucleated RBC % (auto) VBG pH VBG pCO2 VBG pO2 VBG HCO3 VBG O2 Saturation VBG Base Excess Sodium Potassium Chloride Carbon Dioxide Anion Gap BUN Creatinine Estim Creat Clear Calc Estimated GFR POC Glucose 146 H 140 H 139 H Random Glucose Calcium Phosphorus Magnesium Total Bilirubin Direct Bilirubin AST ALT Alkaline Phosphatase Troponin I High Sens Total Protein Albumin Lipase Beta-Hydroxybutyrate Urine Color Urine Appearance Urine pH Ur Specific [place] Urine Protein Urine Glucose (UA) Urine Ketones Urine Blood Urine Nitrite Ur Leukocyte Esterase Urine RBC Urine WBC Ur Squamous Epith Cells Urine Bacteria Hyaline Casts Urine Opiates Screen Ur Buprenorphine Scrn Ur Oxycodone Screen Urine Methadone Screen Urine Fentanyl Screen Ur Barbiturates Screen Ur Phencyclidine Scrn Ur Amphetamines Screen U Benzodiazepines Scrn Urine Cocaine Screen U Marijuana (THC) Screen Influenza Type A (PCR) Influenza Type B (PCR) RSV RNA Qual (PCR) SARS-CoV-2 RNA (RT-PCR) 02/04/25 02/04/25 02/04/25 02:23 03:20 04:50 WBC RBC Hgb Hct MCV MCH MCHC RDW Plt Count MPV Immature Gran % (Auto) Neut % (Auto) Lymph % (Auto) [place] % (Auto) Eos % (Auto) Baso % (Auto) Lymph # (Auto) [place] # (Auto) Eos # (Auto) Baso # (Auto) Abs Immat Gran (auto) Absolute Neuts (auto) Absolute Nucleated RBC Nucleated RBC % (auto) VBG pH VBG pCO2 VBG pO2 VBG HCO3 VBG O2 Saturation VBG Base Excess Sodium Potassium Chloride Carbon Dioxide Anion Gap BUN Creatinine Estim Creat Clear Calc Estimated GFR POC Glucose 140 H 139 H Random Glucose Calcium Phosphorus Magnesium Total Bilirubin Direct Bilirubin AST ALT Alkaline Phosphatase Troponin I High Sens Total Protein Albumin Lipase Beta-Hydroxybutyrate Urine Color Yellow Urine Appearance Clear Urine pH 6.0 Ur Specific [place] >= 1.030 H Urine Protein 100 (2+) H Urine Glucose (UA) >=1000 H Urine Ketones 40 Urine Blood Negative Urine Nitrite Negative Ur Leukocyte Esterase Negative Urine RBC 0-2 Urine WBC 0-5 Ur Squamous Epith Cells 0-2 Urine Bacteria None Seen Hyaline Casts 0-2 Urine Opiates Screen POSITIVE H Ur Buprenorphine Scrn Not Detected Ur Oxycodone Screen Not Detected Urine Methadone Screen Not Detected Urine Fentanyl Screen POSITIVE H Ur Barbiturates Screen Not Detected Ur Phencyclidine Scrn Not Detected Ur Amphetamines Screen Not Detected U Benzodiazepines Scrn Not Detected Urine Cocaine Screen Not Detected U Marijuana (THC) Screen POSITIVE H Influenza Type A (PCR) Influenza Type B (PCR) RSV RNA Qual (PCR) SARS-CoV-2 RNA (RT-PCR) 02/04/25 02/04/25 02/04/25 05:20 05:27 08:03 WBC 13.4 H RBC 4.46 L Hgb 12.8 L Hct 38.7 L MCV 86.8 MCH 28.7 MCHC 33.1 RDW 13.9 Plt Count 302 MPV 9.8 Immature Gran % (Auto) 0.3 Neut % (Auto) 62.5 Lymph % (Auto) 26.7 [place] % (Auto) 10.1 Eos % (Auto) 0.1 Baso % (Auto) 0.3 Lymph # (Auto) 3.6 [place] # (Auto) 1.4 H Eos # (Auto) 0.0 Baso # (Auto) 0.0 Abs Immat Gran (auto) 0.04 H Absolute Neuts (auto) 8.4 H Absolute Nucleated RBC 0.000 Nucleated RBC % (auto) 0.0 VBG pH 7.40 VBG pCO2 33 VBG pO2 42 VBG HCO3 20 L VBG O2 Saturation 75.0 VBG Base Excess -3.0 Sodium 143 Potassium 3.5 Chloride 115 H Carbon Dioxide 20 L Anion Gap 12 BUN 12 Creatinine 0.70 Estim Creat Clear Calc 127.8 Estimated GFR > 60 POC Glucose 144 H 174 H Random Glucose 140 H Calcium 9.2 Phosphorus 2.4 L Magnesium 2.1 Total Bilirubin Direct Bilirubin AST ALT Alkaline Phosphatase Troponin I High Sens Total Protein Albumin 3.6 Lipase Beta-Hydroxybutyrate Urine Color Urine Appearance Urine pH Ur Specific [place] Urine Protein Urine Glucose (UA) Urine Ketones Urine Blood Urine Nitrite Ur Leukocyte Esterase Urine RBC Urine WBC Ur Squamous Epith Cells Urine Bacteria Hyaline Casts Urine Opiates Screen Ur Buprenorphine Scrn Ur Oxycodone Screen Urine Methadone Screen Urine Fentanyl Screen Ur Barbiturates Screen Ur Phencyclidine Scrn Ur Amphetamines Screen U Benzodiazepines Scrn Urine Cocaine Screen U Marijuana (THC) Screen Influenza Type A (PCR) Influenza Type B (PCR) RSV RNA Qual (PCR) SARS-CoV-2 RNA (RT-PCR) 02/04/25 11:36 WBC RBC Hgb Hct MCV MCH MCHC RDW Plt Count MPV Immature Gran % (Auto) Neut % (Auto) Lymph % (Auto) [place] % (Auto) Eos % (Auto) Baso % (Auto) Lymph # (Auto) [place] # (Auto) Eos # (Auto) Baso # (Auto) Abs Immat Gran (auto) Absolute Neuts (auto) Absolute Nucleated RBC Nucleated RBC % (auto) VBG pH VBG pCO2 VBG pO2 VBG HCO3 VBG O2 Saturation VBG Base Excess Sodium Potassium Chloride Carbon Dioxide Anion Gap BUN Creatinine Estim Creat Clear Calc Estimated GFR POC Glucose 158 H Random Glucose Calcium Phosphorus Magnesium Total Bilirubin Direct Bilirubin AST ALT Alkaline Phosphatase Troponin I High Sens Total Protein Albumin Lipase Beta-Hydroxybutyrate Urine Color Urine Appearance Urine pH Ur Specific [place] Urine Protein Urine Glucose (UA) Urine Ketones Urine Blood Urine Nitrite Ur Leukocyte Esterase Urine RBC Urine WBC Ur Squamous Epith Cells Urine Bacteria Hyaline Casts Urine Opiates Screen Ur Buprenorphine Scrn Ur Oxycodone Screen Urine Methadone Screen Urine Fentanyl Screen Ur Barbiturates Screen Ur Phencyclidine Scrn Ur Amphetamines Screen U Benzodiazepines Scrn Urine Cocaine Screen U Marijuana (THC) Screen Influenza Type A (PCR) Influenza Type B (PCR) RSV RNA Qual (PCR) SARS-CoV-2 RNA (RT-PCR) Progress Note: A&P Assessment and plan (1) Pancolitis: Status: Acute (2) DKA (diabetic ketoacidosis): Status: Acute (3) Afib: Status: Acute Plan Assessment: 64-year-old gentleman admitted with diabetic ketoacidosis requiring insulin drip. Plan: Neuro: No acute issues. Cardiac: No acute issues. Underlying AFib, PVD, and CAD. Continue Xarelto. Pulmonary: No acute issues. Renal: No acute issues. Endo: Diabetic ketoacidosis, resolved. Titrated off insulin drip. Continue subcutaneous insulin. GI: Pancolitis, continue on Cipro and Flagyl. ID: No acute issues Heme/Onc: No acute issues. Psych: No acute issues. Miscellaneous: No acute issues. Prophylaxis: Xarelto Diet: Diabetic Quality Stroke Does the patient have a stroke diagnosis?: No VTE Prior VTE?: No VTE Risk Level:: Medical - moderate - high VTE Device Contraindication: Treatment Not Indicated VTE Drug Contraindication: N/A - Med Ordered
[2025-02-04 12:53] LABS: Anion Gap 9 (12-20); Blood Urea Nitrogen 10 mg/dL (9-16); Calcium 8.7 mg/dL (8.4-10.2); Carbon Dioxide 23 mmol/L (22-29); Chloride 115 mmol/L (96-108); Creatinine Clr Calc Pharmacy 146.7; Estimated Glomerular Filt Rate > 60; Glucose Random 165 mg/dL (60-115); Potassium 3.7 mmol/L (3.3-5.1); Sodium 143 mmol/L (135-145)
--- NOTE | 2025-02-04 15:14 | PM.EVENT ---
Event Note Date of Service: 02/04/25 Event Note: This is a 64-year-old male with history of diabetes, gastroparesis who presented to the emergency department with abdominal pain, nausea, vomiting found to have metabolic acidosis and elevated beta hydroxybutyrate consistent with DKA admitted to the ICU and started on insulin drip, also found to have colitis. DM with DKA s/p insulin drip tolerating diet, on lantus follow POCs Farxiga on hold Gastroparesis Reglan Colitis continue cipro/flagyl Paroxysmal atrial fibrillation AC with xarelto resume metoprolol Time Spent With Patient Time: Total time managing care of this patient today ____ minutes.
[2025-02-04 16:32] LABS: Glucose, Whole Blood 160 mg/dL (60-115)
[2025-02-04] MEDS: Rivaroxaban 20 MG TABLET PO (16:41)
[2025-02-04] MEDS: Omeprazole 20 MG CAPSULE.DR PO (16:41)
[2025-02-04 20:11] LABS: Glucose, Whole Blood 139 mg/dL (60-115)
[2025-02-05 00:44] VITALS: RESP 16
[2025-02-05] MEDS: HYDROmorphone HCl 1 MG/ML SYRINGE IVPUSH ×6 (00:44→21:27)
[2025-02-05] MEDS: Metoclopramide HCl 10 MG/2 ML VIAL IVPUSH ×4 (00:49→13:05)
[2025-02-05] MEDS: metroNIDAZOLE/NS 500 MG/100 ML PIGGYBACK 100 MG IV ×3 (02:04→18:11)
[2025-02-05 03:20] VITALS: BP 142/68; PULSE 79; RESP 18; TEMP 36.4; O2SAT 94
[2025-02-05 04:48] VITALS: RESP 18
[2025-02-05] MEDS: Ciprofloxacin Lactate/D5W 400 MG/200 ML PIGGYBACK 200 MG IV ×2 (04:51→17:04)
[2025-02-05 07:39] VITALS: BP 137/64; PULSE 80; RESP 18; TEMP 36.8; O2SAT 95
[2025-02-05 07:48] LABS: Glucose, Whole Blood 132 mg/dL (60-115)
[2025-02-05 07:48] LABS: MANUAL DIFF FLAG NO
[2025-02-05 08:01] LABS: Basophils Absolute Auto 0.1 X10*3/uL (0.0-0.2); Basophils Percent Auto 0.7 % (0-2); Eosinophils Absolute Auto 0.2 X10*3/uL (0.0-0.4); Hematocrit 37.5 % (42.0-52.0); Hemoglobin 12.5 g/dl (14.0-18.0); Imm Gran Abs Auto 0.03 X10*3/uL (0.00-0.03); Imm Gran Pct Auto 0.3 % (0.0-0.4); Lymphocytes Absolute Auto 3.1 X10*3/uL (1.2-4.9); Lymphocytes Percent Auto 32.6 % (20-40); Mean Corpuscular HGB Conc 33.3 g/dl (31.0-36.0); Mean Corpuscular Hemoglobin 29.2 pg (27.0-33.0); Mean Corpuscular Volume 87.6 fL (80.0-98.0); Mean Platelet Volume 9.8 fL (9.4-12.4); Monocytes Absolute Auto 0.8 X10*3/uL (0.1-1.2); Monocytes Percent Auto 8.5 % (2-11); Neutrophils Absolute Auto 5.4 x10*3/uL (2.0-8.3); Neutrophils Percent Auto 55.9 % (45-73); Platelet Count 276 X10*3/uL (160-400); Red Blood Count 4.28 X10*6/uL (4.60-5.80); Red Cell Distribution Width 14.1 % (11.0-16.0); White Blood Count 9.6 X10*3/uL (4.8-10.8)
[2025-02-05 08:07] LABS: Albumin Level 3.3 g/dL (3.5-5.0); Anion Gap 12 (12-20); Blood Urea Nitrogen 8 mg/dL (9-16); Calcium 8.5 mg/dL (8.4-10.2); Carbon Dioxide 21 mmol/L (22-29); Chloride 113 mmol/L (96-108); Estimated Glomerular Filt Rate > 60; Glucose Random 126 mg/dL (60-115); Magnesium 1.9 mg/dL (1.6-2.6); Phosphorus 3.5 mg/dL (2.7-4.5); Potassium 3.5 mmol/L (3.3-5.1); Sodium 142 mmol/L (135-145)
[2025-02-05] MEDS: Insulin Glargine,Hum.rec.anlog 100 UNIT/ML 10 ML VIAL 30 UNIT SUBCUT (08:26)
[2025-02-05] MEDS: Metoprolol Succinate ER 25 MG TAB.ER.24H PO (08:26)
[2025-02-05] MEDS: 0.9 % Sodium Chloride Flush 3 ML SYRINGE IVFLUSH ×2 (08:31→20:52)
--- NOTE | 2025-02-05 09:13 | HO.PM.IMPN ---
Subjective Subjective Date of Service: 02/05/25 Interval History: Follow up DKA, gastroparesis Patient still with abdominal pain, no nausea or vomiting Physical Exam Vital Signs: Vital Signs: Last Vital Signs Temp 98.3 F 02/05/25 07:39 Pulse 80 02/05/25 07:39 Resp 18 02/05/25 07:39 BP 137/64 02/05/25 07:39 Pulse Ox 95 02/05/25 07:39 O2 Del Method Room Air 02/05/25 07:39 BMI result Body Mass Index 36.7 Appearing in no acute distress lung sounds are clear to auscultation heart regular rate rhythm, clear S1, S2 positive bowel sounds, diffuse abdominal pain neuro patient is alert x3, no focal deficits Objective Data Active Medications Dextrose (Dextrose 50 % 25 Gm/50 Ml Syringe) 25 gm IVPUSH Q30M PRN PRN Reason: BG < 70 Hydromorphone HCl (Hydromorphone Hcl 1 Mg/Ml Syringe) 1 mg IVPUSH Q4H PRN; Protocol PRN Reason: Pain, Severe (Pain Scale 7-10) Last Admin: 02/05/25 08:26 Dose: 1 mg Documented By: MAMIE Ciprofloxacin (Cipro) 400 mg in 200 mls @ 200 mls/hr IV Q12H [facility] Last Infusion: 02/05/25 05:57 Dose: Infused Documented By: TRISTAN Metronidazole (Flagyl) 500 mg in 100 mls @ 100 mls/hr IV Q8H [facility] Last Infusion: 02/05/25 03:05 Dose: Infused Documented By: TRISTAN Insulin Glargine (Insulin Glargine,Hum.Rec.Anlog 100 Unit/Ml 10 Ml Vial) 30 unit SUBCUT DAILY [facility] Last Admin: 02/05/25 08:26 Dose: 30 unit Documented By: MAMIE Insulin Human Lispro (Insulin Lispro 100 Unit/Ml 3 Ml Vial) 0 unit SUBCUT QIDACHS [facility], [facility]; Protocol Last Admin: 02/05/25 07:46 Dose: Not Given Documented By: MAMIE Non-Admin Reason: No Insulin Coverage Metoclopramide HCl (Metoclopramide Hcl 10 Mg/2 Ml Vial) 10 mg IVPUSH Q4H PRN PRN Reason: Nausea and Vomiting Last Admin: 02/05/25 08:26 Dose: 10 mg Documented By: MAMIE Metoprolol Succinate (Metoprolol Succinate Er 25 Mg Tab.Er.24h) 25 mg PO DAILY [facility]; Protocol Last Admin: 02/05/25 08:26 Dose: 25 mg Documented By: MAMIE Omeprazole (Omeprazole 20 Mg Capsule.Dr) 20 mg PO BID@0630,1630 [facility] Last Admin: 02/05/25 05:00 Dose: Not Given Documented By: TRISTAN Non-Admin Reason: Nausea Rivaroxaban (Rivaroxaban 20 Mg Tablet) 20 mg PO DAILY@1700 [facility] Last Admin: 02/04/25 16:41 Dose: 20 mg Documented By: TORRI Sodium Chloride (0.9 % Sodium Chloride Flush 3 Ml Syringe) 3 ml IVFLUSH QSHIFT [facility] Last Admin: 02/05/25 08:31 Dose: 3 ml Documented By: MAMIE Labs 02/05/25 07:30 02/05/25 07:30 Labs: Laboratory Results - last 24 hr 02/04/25 02/04/25 02/04/25 11:36 12:33 16:26 MCV MCH MCHC RDW Plt Count MPV Immature Gran % (Auto) Neut % (Auto) Lymph % (Auto) [place] % (Auto) Eos % (Auto) Baso % (Auto) Lymph # (Auto) [place] # (Auto) Eos # (Auto) Baso # (Auto) Abs Immat Gran (auto) Absolute Neuts (auto) Absolute Nucleated RBC Nucleated RBC % (auto) Anion Gap 9 L Estim Creat Clear Calc 146.7 Estimated GFR > 60 POC Glucose 158 H 160 H Random Glucose 165 H Calcium 8.7 Phosphorus Magnesium Albumin 02/04/25 02/05/25 02/05/25 19:50 07:30 07:42 MCV 87.6 MCH 29.2 MCHC 33.3 RDW 14.1 Plt Count 276 MPV 9.8 Immature Gran % (Auto) 0.3 Neut % (Auto) 55.9 Lymph % (Auto) 32.6 [place] % (Auto) 8.5 Eos % (Auto) 2.0 Baso % (Auto) 0.7 Lymph # (Auto) 3.1 [place] # (Auto) 0.8 Eos # (Auto) 0.2 Baso # (Auto) 0.1 Abs Immat Gran (auto) 0.03 Absolute Neuts (auto) 5.4 Absolute Nucleated RBC 0.000 Nucleated RBC % (auto) 0.0 Anion Gap 12 Estim Creat Clear Calc 142.0 Estimated GFR > 60 POC Glucose 139 H 132 H Random Glucose 126 H Calcium 8.5 Phosphorus 3.5 Magnesium 1.9 Albumin 3.3 L Assessment and Plan (1) DKA (diabetic ketoacidosis): Status: Acute Plan 64-year-old male with history of diabetes, gastroparesis who presented to the emergency department with abdominal pain, nausea, vomiting found to have metabolic acidosis and elevated beta hydroxybutyrate consistent with DKA admitted to the ICU and started on insulin drip, also found to have colitis. Transferred to medical floor for 1125 DM2 with DKA. DKA resolved s/p insulin drip in the ICU Continue Lantus and sliding scale Farxiga on hold Diet as tolerated Diabetic Gastroparesis Reglan Colitis Still with abdominal pain No diarrhea continue cipro/flagyl Paroxysmal atrial fibrillation AC with xarelto resume metoprolol GERD Continue PPI DVT prophylaxis with Xarelto Full code Quality Stroke Does the patient have a stroke diagnosis?: No VTE Prior VTE?: No VTE Risk Level:: Medical - moderate - high VTE Device Contraindication: Treatment Not Indicated VTE Drug Contraindication: N/A - Med Ordered
[2025-02-05 11:29] LABS: Glucose, Whole Blood 115 mg/dL (60-115)
[2025-02-05] MEDS: Isosorbide Mononitrate 30 MG TAB.ER.24H PO (11:52)
[2025-02-05] MEDS: Furosemide 20 MG TABLET PO (11:52)
[2025-02-05] MEDS: Losartan Potassium 25 MG TABLET PO (11:52)
[2025-02-05 15:32] VITALS: BP 128/91; PULSE 82; RESP 18; TEMP 36.6; O2SAT 96
[2025-02-05] MEDS: ondansetron HCL 4 MG/2 ML VIAL IVPUSH ×2 (15:55→22:18)
[2025-02-05 16:51] LABS: Glucose, Whole Blood 149 mg/dL (60-115)
[2025-02-05] MEDS: Rivaroxaban 20 MG TABLET PO (17:04)
[2025-02-05 19:25] VITALS: BP 133/64; PULSE 78; RESP 18; TEMP 36.7; O2SAT 95
[2025-02-05 20:24] LABS: Glucose, Whole Blood 159 mg/dL (60-115)
[2025-02-05] MEDS: Insulin Lispro 100 UNIT/ML 3 ML VIAL SUBCUT (20:51)
[2025-02-05] MEDS: Gabapentin 300 MG CAPSULE PO (20:51)
[2025-02-06] MEDS: metroNIDAZOLE/NS 500 MG/100 ML PIGGYBACK 100 MG IV (01:14)
[2025-02-06] MEDS: HYDROmorphone HCl 1 MG/ML SYRINGE IVPUSH ×6 (01:19→23:38)
[2025-02-06] MEDS: ondansetron HCL 4 MG/2 ML VIAL IVPUSH ×3 (02:06→16:15)
[2025-02-06 03:21] VITALS: BP 161/79; PULSE 72; RESP 18; TEMP 36.7; O2SAT 95
[2025-02-06] MEDS: Ciprofloxacin Lactate/D5W 400 MG/200 ML PIGGYBACK 200 MG IV ×2 (05:00→16:25)
[2025-02-06] MEDS: Omeprazole 20 MG CAPSULE.DR PO (05:06)
[2025-02-06 07:27] VITALS: BP 115/73; PULSE 82; RESP 18; TEMP 36.9; O2SAT 96
[2025-02-06 07:43] LABS: Glucose, Whole Blood 153 mg/dL (60-115)
[2025-02-06] MEDS: Insulin Glargine,Hum.rec.anlog 100 UNIT/ML 10 ML VIAL 30 UNIT SUBCUT (07:48)
[2025-02-06] MEDS: 0.9 % Sodium Chloride Flush 3 ML SYRINGE IVFLUSH ×2 (07:52→19:39)
--- NOTE | 2025-02-06 08:55 | P.PNIM_ITS ---
Subjective Subjective Date of Service: 02/06/25 Interval History: Follow up DKA, gastroparesis Patient still with abdominal pain, no nausea or vomiting Physical Exam 2 Vital Signs: Vital Signs: Last Vital Signs Temp 98.5 F 02/06/25 07:27 Pulse 82 02/06/25 07:27 Resp 18 02/06/25 07:27 BP 115/73 02/06/25 07:27 Pulse Ox 96 02/06/25 07:27 O2 Del Method Room Air 02/06/25 07:27 BMI result Body Mass Index 36.7 Appearing in no acute distress lung sounds are clear to auscultation heart regular rate rhythm, clear S1, S2 positive bowel sounds, abdomen is soft, nontender neuro patient is alert x3, no focal deficits Objective Data Active Medications Dextrose (Dextrose 50 % 25 Gm/50 Ml Syringe) 25 gm IVPUSH Q30M PRN PRN Reason: BG < 70 Furosemide (Furosemide 20 Mg Tablet) 20 mg PO DAILY [facility]; Protocol Last Admin: 02/05/25 11:52 Dose: 20 mg Documented By: MAMIE Gabapentin (Gabapentin 300 Mg Capsule) 300 mg PO TID [facility] Last Admin: 02/05/25 20:51 Dose: 300 mg Documented By: ERICKSON Hydromorphone HCl (Hydromorphone Hcl 1 Mg/Ml Syringe) 1 mg IVPUSH Q4H PRN; Protocol PRN Reason: Pain, Severe (Pain Scale 7-10) Last Admin: 02/06/25 05:01 Dose: 1 mg Documented By: ERICKSON Ciprofloxacin (Cipro) 400 mg in 200 mls @ 200 mls/hr IV Q12H [facility] Last Infusion: 02/06/25 06:09 Dose: Infused Documented By: ERICKSON Insulin Glargine (Insulin Glargine,Hum.Rec.Anlog 100 Unit/Ml 10 Ml Vial) 30 unit SUBCUT DAILY [facility] Last Admin: 02/06/25 07:48 Dose: 30 unit Documented By: MAMIE Insulin Human Lispro (Insulin Lispro 100 Unit/Ml 3 Ml Vial) 0 unit SUBCUT QIDACHS [facility]; Protocol Last Admin: 02/06/25 07:44 Dose: Not Given Documented By: MAMIE Non-Admin Reason: NPO Isosorbide Mononitrate (Isosorbide Mononitrate 30 Mg Tab.Er.24h) 30 mg PO DAILY [facility]; Protocol Last Admin: 02/05/25 11:52 Dose: 30 mg Documented By: MAMIE Losartan Potassium (Losartan Potassium 25 Mg Tablet) 25 mg PO DAILY [facility]; Protocol Last Admin: 02/05/25 11:52 Dose: 25 mg Documented By: MAMIE Metoclopramide HCl (Metoclopramide Hcl 10 Mg/2 Ml Vial) 10 mg IVPUSH Q4H PRN PRN Reason: Nausea and Vomiting Last Admin: 02/05/25 13:05 Dose: 10 mg Documented By: MAMIE Metoprolol Succinate (Metoprolol Succinate Er 25 Mg Tab.Er.24h) 25 mg PO DAILY [facility]; Protocol Last Admin: 02/05/25 08:26 Dose: 25 mg Documented By: MAMIE Metronidazole (Metronidazole 500 Mg Tablet) 500 mg PO Q8H [facility] Omeprazole (Omeprazole 20 Mg Capsule.Dr) 20 mg PO BID@0630,1630 [facility] Last Admin: 02/06/25 05:06 Dose: 20 mg Documented By: ERICKSON Ondansetron HCl (Ondansetron Hcl 4 Mg/2 Ml Vial) 4 mg IVPUSH Q6H PRN PRN Reason: Nausea and Vomiting Last Admin: 02/06/25 07:48 Dose: 4 mg Documented By: MAMIE Rivaroxaban (Rivaroxaban 20 Mg Tablet) 20 mg PO DAILY@1700 [facility] Last Admin: 02/05/25 17:04 Dose: 20 mg Documented By: MAMIE Sodium Chloride (0.9 % Sodium Chloride Flush 3 Ml Syringe) 3 ml IVFLUSH QSHIFT [facility] Last Admin: 02/06/25 07:52 Dose: 3 ml Documented By: MAMIE Labs 02/05/25 07:30 02/05/25 07:30 Labs: Laboratory Results - last 24 hr 02/05/25 02/05/25 02/05/25 11:25 16:47 20:20 POC Glucose 115 149 H 159 H 02/06/25 07:26 POC Glucose 153 H Assessment and Plan (1) DKA (diabetic ketoacidosis): Status: Acute Plan 64-year-old male with history of diabetes, gastroparesis who presented to the emergency department with abdominal pain, nausea, vomiting found to have metabolic acidosis and elevated beta hydroxybutyrate consistent with DKA admitted to the ICU and started on insulin drip, also found to have colitis. Transferred to medical floor for 1125 DM2 with DKA. DKA resolved s/p insulin drip in the ICU Continue Lantus and sliding scale Farxiga on hold Diet as tolerated Diabetic Gastroparesis Reglan, zofran oral and IV narcotic pain mediction GI consultation Pancolitis Still with abdominal pain No diarrhea continue cipro/flagyl Paroxysmal atrial fibrillation AC with xarelto resume metoprolol GERD Continue PPI DVT prophylaxis with Xarelto Full code Quality Stroke Does the patient have a stroke diagnosis?: No VTE Prior VTE?: No VTE Risk Level:: Medical - moderate - high VTE Device Contraindication: Treatment Not Indicated VTE Drug Contraindication: N/A - Med Ordered
[2025-02-06] MEDS: Metoclopramide HCl 10 MG/2 ML VIAL IVPUSH ×2 (09:43→19:38)
--- NOTE | 2025-02-06 10:28 | P.CNGI_ITS ---
History of Present Illness Data of Consult Service Date: 02/06/25 Requesting physician: Yael Lopez Primary Care Provider: Marley Rick MD [facility] Reason for consult: abd pain , gastroparesis 64 YM with type 2 diabetes with Gastroparesis and neuropathy, CAD status post CABG in 2018, CHF, PVD, osteomyelitis and left great toe amputation, atrial fibrillation on Xarelto, intermittent asthma admitted to [facility] ICU on 02/03/25 with nausea, vomiting, and abdominal/epigastric pain. On ER evaluation patient noted to have metabolic acidosis with elevated beta hydroxybutyrate hyperglycemia. Pt was started on insulin drip and admitted to the intensive care unit. Pt reports intermittent episodes of upper abd pain with nausea and vomiting usually associated with diabetic ketoacidosis. Pt states episodes start with nausea and vomiting followed by upper abdominal pain. Pt complains of continues nausea and vomting and unable to keep anything down. Pt denies heartburn, dysphagia or recent change in bowel habits - usually has a BM every other day Patient reports intentional weight loss of 100 lb with the past year. Pt denies smoking or ETOH abuse. He uses Marijuana once a week and denies using it daily Pt reports having an EGD and colon at [facility] - per pt endoscopic evaluation was negative. Pt worked as a [employer], is , has 3 children and lives with his and one child. Patient admitted to [facility] on 12/16 to 12/21/24 with similar episode 02/03/[address] SCAN SHOWED: There is diffuse wall thickening of the colon, with rectal involvement, findings consistent with pancolitis. There is mild associated hyperemia. The small bowel is normal in caliber and course. The terminal ileum has a normal appearance. The appendix is normal. There is a tiny second segment duodenal diverticulum. There is a small type I hiatus hernia. The stomach otherwise appears normal. ABDOMINAL WALL: No significant hernia is appreciated. There are bilateral lower abdominal injection granulomata present. VASCULAR: Extensive calcific atherosclerosis of the arterial vasculature. No aneurysm. No venous thrombosis. IMPRESSION: 1. Findings consistent with pancolitis. This could be infectious or inflammatory. 2. Ancillary findings as discussed in the body of the report. Review of Systems 2 Review of Systems: Yes all other systems are reviewed and are negative PMFSH Past Medical History Medical History (Updated 02/04/25 @ 12:04 by Fernandez Campos MD) Obesity (BMI 30-39.9) PAD (peripheral artery disease) Afib Amputation of left great toe Lower limb amputation, great toe CAD (coronary artery disease) DMII (diabetes mellitus, type 2) Orthopedic hardware present Hyperglycemia Cellulitis Asthma Diabetes Hypertension FHx: bilateral hip replacements Family History Family History Other No family history of coronary artery disease Surgical History Surgical History History of amputation of toe (07/29/22) History of amputation of great toe (01/07/22) History of back surgery History of neck surgery History of ankle surgery H/O bilateral hip replacements S/P quadruple vessel bypass Social History Social History Household Members: Family Household Members Other:: 3 Housing: House Are you a primary zoo caretaker to a significant other at home: No Do you presently have visiting nurse or other home services: No Alcohol intake: never Comment: refused bed or chair alarm Patient Tobacco Use Status: Former Tobacco user Tobacco use type: Cigarette Smoked in Last 30 Days: No Second Hand Smoke Exposure: No Use of substances other than those prescribed or required for medical reasons: No Substance Use Type: Marijuana Currently Displaying Signs/Symptoms of Drug Intoxication Withdrawal: No Is there a partner from a previous relationship who is making you feel unsafe now?: No Are you made to feel afraid or neglected: No Advance Directives: No Advance Directives Information Provided: Yes Advance Directives on File: No Advance Directives Date on File: 01/04/22 Do you have a plan to hurt others: No Plan Recently lost weight without trying: Unsure service: No Current occupational status: disabled Meds Allergies Allergy/AdvReac Type Severity Reaction Status Date / Time morphine AdvReac Intermediate Hallucinati Verified 02/03/25 11:07 ons Active Medications: Current Medications Dextrose (Dextrose 50 % 25 Gm/50 Ml Syringe) 25 gm IVPUSH Q30M PRN PRN Reason: BG < 70 Furosemide (Furosemide 20 Mg Tablet) 20 mg PO DAILY WILLIAM; Protocol Last Admin: 02/06/25 10:03 Dose: Not Given Gabapentin (Gabapentin 300 Mg Capsule) 300 mg PO TID WILLIAM Last Admin: 02/06/25 10:03 Dose: Not Given Hydromorphone HCl (Hydromorphone Hcl 1 Mg/Ml Syringe) 1 mg IVPUSH Q4H PRN; Protocol PRN Reason: Pain, Severe (Pain Scale 7-10) Last Admin: 02/06/25 09:39 Dose: 1 mg Ciprofloxacin (Cipro) 400 mg in 200 mls @ 200 mls/hr IV Q12H [facility] Last Infusion: 02/06/25 06:09 Dose: Infused Insulin Glargine (Insulin Glargine,Hum.Rec.Anlog 100 Unit/Ml 10 Ml Vial) 30 unit SUBCUT DAILY [facility] Last Admin: 02/06/25 07:48 Dose: 30 unit Insulin Human Lispro (Insulin Lispro 100 Unit/Ml 3 Ml Vial) 0 unit SUBCUT QIDACHS [facility]; Protocol Last Admin: 02/06/25 07:44 Dose: Not Given Isosorbide Mononitrate (Isosorbide Mononitrate 30 Mg Tab.Er.24h) 30 mg PO DAILY [facility]; Protocol Last Admin: 02/06/25 10:03 Dose: Not Given Losartan Potassium (Losartan Potassium 25 Mg Tablet) 25 mg PO DAILY [facility]; Protocol Last Admin: 02/06/25 10:04 Dose: Not Given Metoclopramide HCl (Metoclopramide Hcl 10 Mg/2 Ml Vial) 10 mg IVPUSH Q4H PRN PRN Reason: Nausea and Vomiting Last Admin: 02/06/25 09:43 Dose: 10 mg Metoprolol Succinate (Metoprolol Succinate Er 25 Mg Tab.Er.24h) 25 mg PO DAILY [facility]; Protocol Last Admin: 02/06/25 10:04 Dose: Not Given Metronidazole (Metronidazole 500 Mg Tablet) 500 mg PO Q8H [facility] Last Admin: 02/06/25 10:04 Dose: Not Given Omeprazole (Omeprazole 20 Mg Capsule.Dr) 20 mg PO BID@0630,1630 [facility] Last Admin: 02/06/25 05:06 Dose: 20 mg Ondansetron HCl (Ondansetron Hcl 4 Mg/2 Ml Vial) 4 mg IVPUSH Q6H PRN PRN Reason: Nausea and Vomiting Last Admin: 02/06/25 07:48 Dose: 4 mg Oxycodone HCl (Oxycodone Hcl Immed Release 5 Mg Tablet) 10 mg PO Q6H PRN PRN Reason: Pain, Moderate(Pain Scale 4-6) Rivaroxaban (Rivaroxaban 20 Mg Tablet) 20 mg PO DAILY@1700 [facility] Last Admin: 02/05/25 17:04 Dose: 20 mg Sodium Chloride (0.9 % Sodium Chloride Flush 3 Ml Syringe) 3 ml IVFLUSH QSHIFT [facility] Last Admin: 02/06/25 07:52 Dose: 3 ml Home Medications ?Medication ?Instructions ?Recorded ?Confirmed ?Last Taken ?Type ezetimibe 10 mg tablet 10 mg PO DAILY 01/03/22 02/03/25 02/01/25 History gabapentin 300 mg capsule 300 mg PO TID 01/03/22 02/03/25 02/01/25 History insulin glargine 100 unit/mL 10 unit subcut BID 01/03/22 02/03/25 02/01/25 History subcutaneous solution (Lantus U-100 Insulin) isosorbide mononitrate 30 mg 30 mg PO DAILY 01/03/22 02/03/25 02/01/25 History tablet,extended release 24 hr loratadine 10 mg tablet 10 mg PO DAILY 01/03/22 02/03/25 02/01/25 History losartan 25 mg tablet 25 mg PO DAILY 01/03/22 02/03/25 02/01/25 History meclizine 25 mg tablet 25 mg PO TID PRN Dizziness Or 01/03/22 02/03/25 12/14/24 History Vertigo pantoprazole 40 mg tablet,delayed 40 mg PO BID@0630,1630 01/03/22 02/03/25 02/01/25 History release rosuvastatin 40 mg tablet 40 mg PO BEDTIME 01/03/22 02/03/25 02/01/25 History aspirin 81 mg tablet,delayed 81 mg PO DAILY 08/04/22 02/03/25 02/01/25 History release furosemide 20 mg tablet 20 mg PO DAILY 11/13/22 02/03/25 02/01/25 History venlafaxine 100 mg tablet 100 mg PO BID 11/13/22 02/03/25 02/01/25 History metoprolol succinate 25 mg 25 mg PO DAILY 10/14/24 02/03/25 02/01/25 History tablet,extended release 24 hr insulin lispro 100 unit/mL See Protocol subcut QIDACHS 12/16/24 02/03/25 02/01/25 History subcutaneous solution oxycodone 10 mg tablet 10 mg PO Q4H PRN Pain 12/16/24 02/03/25 12/14/24 History rivaroxaban 20 mg tablet (Xarelto) 20 mg PO DAILY@1700 12/16/24 02/03/25 02/01/25 History dapagliflozin propanediol 10 mg 10 mg PO DAILY 02/03/25 02/03/25 02/01/25 History tablet (Farxiga) Physical Exam 2 Vital Signs: Vital Signs: Last Vital Signs Temp 98.5 F 02/06/25 07:27 Pulse 82 02/06/25 07:27 Resp 18 02/06/25 07:27 BP 115/73 02/06/25 07:27 Pulse Ox 96 02/06/25 07:27 O2 Del Method Room Air 02/06/25 07:27 BMI result Body Mass Index 36.7 Const: General: healthy appearing, in distress (in some distress due to nausea) and tired appearing Nutritional Appearance: obese O rientation/consciousness: patient oriented x3 HEENT: Head: Yes normal to inspection Ears: hearing grossly normal bilaterally Mouth: Normal oral and palatal mucosa present Eyes: Sclerae: sclerae normal Pupils: Equal, round and reactive pupils present Neck: Neck: Yes normal visual inspection Chest: Chest palpation & inspection: normal inspection of the chest Resp: Effort & Inspection: normal respiratory effort Auscultation: clear to auscultation bilaterally Cardio: Palpation: normal PMI Rate: regular rate Rhythm: regular rhythm Heart sounds: S1 normal heart sound present, S2 normal heart sound present and no murmurs GI: Palpation (GI): Soft to palpation, nontender and No hepatosplenomegaly present Auscultation: normal bowel sounds Rectal Exam - Male: Yes deferred Skin: General skin exam: no rashes or lesions noted Neuro: General: patient oriented x3, gait normal and moves all extremities Cranial nerves: Yes Equal, round and reactive pupils present Psych: Appearance: grossly normal Mental Status: mental status grossly normal Results Labs 02/05/25 07:30 02/05/25 07:30 Assessment and Plan (1) Gastroparesis: Status: Acute Plan 64 YM with type 2 diabetes with Gastroparesis and neuropathy, CAD status post CABG in 2018, CHF, PVD, osteomyelitis and left great toe amputation, atrial fibrillation on Xarelto, intermittent asthma admitted to [facility] ICU on 02/03/25 with nausea and vomting. Pt reports intermittent episodes of upper abd pain with nausea and vomiting usually associated with diabetic ketoacidosis. Pt states episodes start with nausea and vomiting followed by upper abdominal pain. Patient admitted to [facility] on 10/14/24 with similar episode associated with diabetic ketoacidosis that was euglycemic due to Farxiga which has since been discontinued. He reports feeling well in the interim. In the ED, pt noted to have keturia, ketoacidemia with alkalotic ph of 7.47, no significant AG (20), glucose in 300s. Normal LFTs and lipase. Urine drug screen positive for Marijuna and opiates and fentanyl Pt symptoms are likely due to ketoacidosis versus gastroparesis. Cannabis hyperemesis syndrome would be less likely if he is using Marijuana once a week. RECOMMENDATIONS: 1. Agree with IV fluids, IV PPI, pain medications and antiemetics 2. Continue IV metoclopramide for gastroparesis 3. Resume PO as per DKA protocol 4. If symptoms do not improve, OK to switch to Erythromycin 250 mg IV TID 30 min before meals in place of metoclopramide 5. EGD if abd pain and vomiting persist despite resolution of DKA - offered to schedule on 02/07 and pt would like to hold off on EGD for now 6. Gastric emptying study as outpatient once episode of nausea and vomiting subsides. Procedures Date of Service Date of Service: 02/06/25
[2025-02-06 11:30] LABS: Glucose, Whole Blood 118 mg/dL (60-115)
[2025-02-06] MEDS: Lactated Ringers 1,000 ML 80 ML IVCONT (14:28)
[2025-02-06 15:31] VITALS: BP 149/69; PULSE 83; RESP 18; TEMP 36.3; O2SAT 94
[2025-02-06] MEDS: Rivaroxaban 20 MG TABLET PO (16:15)
[2025-02-06 16:29] LABS: Glucose, Whole Blood 129 mg/dL (60-115)
[2025-02-06 20:00] VITALS: BP 135/63; PULSE 78; RESP 18; TEMP 36.8; O2SAT 98
[2025-02-06 20:24] LABS: Glucose, Whole Blood 138 mg/dL (60-115)
[2025-02-06 23:40] VITALS: BP 145/78; PULSE 76; RESP 16
[2025-02-07] VITALS: RESP 16
--- NOTE | 2025-02-07 03:16 | PC.NURSE ---
patient refusing PO flagyl due to nausea
[2025-02-07 03:17] VITALS: BP 167/81; PULSE 79; RESP 16; TEMP 37.2; O2SAT 96
[2025-02-07] MEDS: HYDROmorphone HCl 1 MG/ML SYRINGE IVPUSH ×5 (03:23→22:11)
[2025-02-07] MEDS: Lactated Ringers 1,000 ML 80 ML IVCONT ×2 (03:24→14:58)
[2025-02-07 04:00] VITALS: RESP 16
[2025-02-07] MEDS: Ciprofloxacin Lactate/D5W 400 MG/200 ML PIGGYBACK 200 MG IV ×2 (06:01→16:30)
[2025-02-07 07:08] VITALS: BP 141/68; PULSE 89; RESP 16; TEMP 36.1; O2SAT 97
[2025-02-07 07:12] LABS: Glucose, Whole Blood 116 mg/dL (60-115)
[2025-02-07] MEDS: Isosorbide Mononitrate 30 MG TAB.ER.24H PO (07:30)
[2025-02-07] MEDS: Losartan Potassium 25 MG TABLET PO (07:30)
[2025-02-07] MEDS: 0.9 % Sodium Chloride Flush 3 ML SYRINGE IVFLUSH ×3 (07:30→21:09)
[2025-02-07] MEDS: Metoprolol Succinate ER 25 MG TAB.ER.24H PO (07:31)
[2025-02-07] MEDS: Gabapentin 300 MG CAPSULE PO ×3 (07:31→21:09)
[2025-02-07] MEDS: Furosemide 20 MG TABLET PO (07:35)
[2025-02-07] MEDS: ondansetron HCL 4 MG/2 ML VIAL IVPUSH ×2 (07:37→21:09)
--- NOTE | 2025-02-07 07:59 | PC.NURSE ---
Patient c/o nausea ,medicated with Zofran,stating will not be able to eat breakfast,held lantus insulin,PERRY Conley notified
--- NOTE | 2025-02-07 08:54 | HO.PM.IMPN ---
Subjective Subjective Date of Service: 02/07/25 Interval History: Follow up DKA, gastroparesis Patient still with abdominal pain, no nausea or vomiting Physical Exam Vital Signs: Vital Signs: Last Vital Signs Temp 97.0 F 02/07/25 07:08 Pulse 89 02/07/25 07:08 Resp 16 02/07/25 07:08 BP 141/68 H 02/07/25 07:08 Pulse Ox 97 02/07/25 07:08 O2 Del Method Room Air 02/07/25 07:08 BMI result Body Mass Index 36.7 Appearing in no acute distress lung sounds are clear to auscultation heart regular rate rhythm, clear S1, S2 positive bowel sounds, abdomen is soft, nontender neuro patient is alert x3, no focal deficits Objective Data Active Medications Dextrose (Dextrose 50 % 25 Gm/50 Ml Syringe) 25 gm IVPUSH Q30M PRN PRN Reason: BG < 70 Furosemide (Furosemide 20 Mg Tablet) 20 mg PO DAILY [facility]; Protocol Last Admin: 02/07/25 07:35 Dose: 20 mg Documented By: KEISHA Gabapentin (Gabapentin 300 Mg Capsule) 300 mg PO TID [facility] Last Admin: 02/07/25 07:31 Dose: 300 mg Documented By: KEISHA Hydromorphone HCl (Hydromorphone Hcl 1 Mg/Ml Syringe) 1 mg IVPUSH Q4H PRN; Protocol PRN Reason: Pain, Severe (Pain Scale 7-10) Last Admin: 02/07/25 03:23 Dose: 1 mg Documented By: NOE Ciprofloxacin (Cipro) 400 mg in 200 mls @ 200 mls/hr IV Q12H [facility] Last Infusion: 02/07/25 07:32 Dose: Infused Documented By: KEISHA Lactated Ringer's (Lr) 1,000 mls @ 80 mls/hr IVCONT .[id number] [facility] Last Admin: 02/07/25 03:24 Dose: 80 mls/hr Documented By: NOE Insulin Glargine (Insulin Glargine,Hum.Rec.Anlog 100 Unit/Ml 10 Ml Vial) 30 unit SUBCUT DAILY [facility] Last Admin: 02/07/25 07:59 Dose: Not Given Documented By: KEISHA Non-Admin Reason: pt c/o nausea,poor appetite Insulin Human Lispro (Insulin Lispro 100 Unit/Ml 3 Ml Vial) 0 unit SUBCUT QIDACHS [facility]; Protocol Last Admin: 02/07/25 07:19 Dose: Not Given Documented By: KEISHA Non-Admin Reason: No Insulin Coverage Isosorbide Mononitrate (Isosorbide Mononitrate 30 Mg Tab.Er.24h) 30 mg PO DAILY [facility]; Protocol Last Admin: 02/07/25 07:30 Dose: 30 mg Documented By: KEISHA Losartan Potassium (Losartan Potassium 25 Mg Tablet) 25 mg PO DAILY [facility]; Protocol Last Admin: 02/07/25 07:30 Dose: 25 mg Documented By: KEISHA Metoclopramide HCl (Metoclopramide Hcl 10 Mg/2 Ml Vial) 10 mg IVPUSH Q4H PRN PRN Reason: Nausea and Vomiting Last Admin: 02/06/25 19:38 Dose: 10 mg Documented By: YUE-CONNRenetta Metoprolol Succinate (Metoprolol Succinate Er 25 Mg Tab.Er.24h) 25 mg PO DAILY [facility]; Protocol Last Admin: 02/07/25 07:31 Dose: 25 mg Documented By: KEISHA Metronidazole (Metronidazole 500 Mg Tablet) 500 mg PO Q8H [facility] Last Admin: 02/07/25 03:16 Dose: Not Given Documented By: NOE Non-Admin Reason: Patient Refused Omeprazole (Omeprazole 20 Mg Capsule.) 20 mg PO BID@0630,1630 [facility] Last Admin: 02/07/25 06:42 Dose: Not Given Documented By: NOE Non-Admin Reason: Patient Refused Ondansetron HCl (Ondansetron Hcl 4 Mg/2 Ml Vial) 4 mg IVPUSH Q6H PRN PRN Reason: Nausea and Vomiting Last Admin: 02/07/25 07:37 Dose: 4 mg Documented By: KEISHA Oxycodone HCl (Oxycodone Hcl Immed Release 5 Mg Tablet) 10 mg PO Q6H PRN PRN Reason: Pain, Moderate(Pain Scale 4-6) Rivaroxaban (Rivaroxaban 20 Mg Tablet) 20 mg PO DAILY@1700 [facility] Last Admin: 02/06/25 16:15 Dose: 20 mg Documented By: KATIA Sodium Chloride (0.9 % Sodium Chloride Flush 3 Ml Syringe) 3 ml IVFLUSH QSHIFT [facility] Last Admin: 02/07/25 07:30 Dose: 3 ml Documented By: KEISHA Labs 02/05/25 07:30 02/05/25 07:30 Labs: Laboratory Results - last 24 hr 02/06/25 02/06/25 02/06/25 11:24 16:25 20:20 POC Glucose 118 H 129 H 138 H 02/07/25 07:06 POC Glucose 116 H Assessment and Plan (1) DKA (diabetic ketoacidosis): Status: Acute Plan 64-year-old male with history of diabetes, gastroparesis who presented to the emergency department with abdominal pain, nausea, vomiting found to have metabolic acidosis and elevated beta hydroxybutyrate consistent with DKA admitted to the ICU and started on insulin drip, also found to have colitis. Transferred to medical floor for 1125 Diabetic Gastroparesis Reglan, zofran, erythromycin oral and IV narcotic pain mediction GI consult> continue IV fluids, ppi, IV Reglan for gastroparesis, erythromycin 250 IV TID if symptoms do not improve, outpatient gastric emptying study Pancolitis Still with abdominal pain No diarrhea continue cipro/flagyl Antiemetics DM2 with DKA. DKA resolved s/p insulin drip in the ICU Continue Lantus and sliding scale Farxiga on hold Diet as tolerated Paroxysmal atrial fibrillation AC with xarelto resume metoprolol GERD Continue PPI DISPO oob to [facility] and ambulating DVT prophylaxis with Xarelto Full code Quality Stroke Does the patient have a stroke diagnosis?: No VTE Prior VTE?: No VTE Risk Level:: Medical - moderate - high VTE Device Contraindication: Treatment Not Indicated VTE Drug Contraindication: N/A - Med Ordered
[2025-02-07] MEDS: metroNIDAZOLE 500 MG TABLET PO ×2 (09:30→17:52)
[2025-02-07] MEDS: SODIUM CHLORIDE 0.9% IV ×2 (10:30→17:52)
[2025-02-07] MEDS: ERYTHROMYCIN LACTOBIONATE IV ×2 (10:30→17:52)
[2025-02-07 11:23] LABS: Glucose, Whole Blood 137 mg/dL (60-115)
[2025-02-07] MEDS: Omeprazole 20 MG CAPSULE.DR PO (14:58)
[2025-02-07 15:19] VITALS: BP 133/63; PULSE 85; RESP 18; TEMP 36.3; O2SAT 99
[2025-02-07 16:25] LABS: Glucose, Whole Blood 147 mg/dL (60-115)
[2025-02-07] MEDS: Rivaroxaban 20 MG TABLET PO (16:30)
[2025-02-07 19:44] VITALS: BP 134/73; PULSE 78; RESP 18; TEMP 36.4; O2SAT 99
[2025-02-07 20:01] LABS: Glucose, Whole Blood 147 mg/dL (60-115)
[2025-02-08] MEDS: Metoclopramide HCl 10 MG/2 ML VIAL IVPUSH ×2 (01:12→10:20)
[2025-02-08] MEDS: ERYTHROMYCIN LACTOBIONATE IV ×2 (01:14→10:12)
[2025-02-08] MEDS: SODIUM CHLORIDE 0.9% IV ×2 (01:14→10:12)
--- NOTE | 2025-02-08 01:22 | PC.NURSE ---
pt reports one episode of vomiting after taking gabapentin, pt refuses to take anything PO at this time. Dr. Acosta made aware, and changed flagyl to IV route.
--- NOTE | 2025-02-08 02:58 | PM.EVENT ---
Event Note Date of Service: 02/08/25 Event Note: As per the nurse, patient vomited after taking gabapentin and is refusing to take anything p.o.. Will change Flagyl from p.o. to IV. Time Spent With Patient Time: Total time managing care of this patient today ____ minutes.
[2025-02-08 03:29] VITALS: BP 126/60; PULSE 73; RESP 18; TEMP 36.4; O2SAT 98
[2025-02-08] MEDS: metroNIDAZOLE/NS 500 MG/100 ML PIGGYBACK 100 MG IV (03:35)
[2025-02-08] MEDS: HYDROmorphone HCl 1 MG/ML SYRINGE IVPUSH ×3 (05:06→15:11)
[2025-02-08] MEDS: Ciprofloxacin Lactate/D5W 400 MG/200 ML PIGGYBACK 200 MG IV (05:08)
[2025-02-08] MEDS: Lactated Ringers 1,000 ML 80 ML IVCONT ×2 (05:14→16:24)
[2025-02-08 07:07] VITALS: BP 135/75; PULSE 73; RESP 16; TEMP 36.5; O2SAT 96
[2025-02-08 07:07] LABS: Glucose, Whole Blood 139 mg/dL (60-115)
--- NOTE | 2025-02-08 07:43 | HO.PM.IMPN ---
Subjective Subjective Date of Service: 02/08/25 Interval History: Follow up DKA, gastroparesis Patient still with abdominal pain, nausea and vomiting Physical Exam Vital Signs: Vital Signs: Last Vital Signs Temp 97.7 F 02/08/25 07:07 Pulse 73 02/08/25 07:07 Resp 16 02/08/25 07:07 BP 135/75 02/08/25 07:07 Pulse Ox 96 02/08/25 07:07 O2 Del Method Room Air 02/08/25 07:07 BMI result Body Mass Index 36.7 Appearing in no acute distress lung sounds are clear to auscultation heart regular rate rhythm, clear S1, S2 positive bowel sounds, abdomen is soft, nontender neuro patient is alert x3, no focal deficits Objective Data Active Medications Dextrose (Dextrose 50 % 25 Gm/50 Ml Syringe) 25 gm IVPUSH Q30M PRN PRN Reason: BG < 70 Furosemide (Furosemide 20 Mg Tablet) 20 mg PO DAILY [facility]; Protocol Last Admin: 02/07/25 07:35 Dose: 20 mg Documented By: KEISHA Gabapentin (Gabapentin 300 Mg Capsule) 300 mg PO TID [facility] Last Admin: 02/07/25 21:09 Dose: 300 mg Documented By: CLIFF Hydromorphone HCl (Hydromorphone Hcl 1 Mg/Ml Syringe) 1 mg IVPUSH Q4H PRN; Protocol PRN Reason: Pain, Severe (Pain Scale 7-10) Last Admin: 02/08/25 05:06 Dose: 1 mg Documented By: CLIFF Ciprofloxacin (Cipro) 400 mg in 200 mls @ 200 mls/hr IV Q12H [facility] Last Infusion: 02/08/25 06:08 Dose: Infused Documented By: CLIFF Lactated Ringer's (Lr) 1,000 mls @ 80 mls/hr IVCONT .[id number] [facility] Last Infusion: 02/08/25 06:15 Dose: 80 mls/hr Documented By: CLIFF Erythromycin Lactobionate 325 (mg/ Sodium Chloride) 100 mls @ 100 mls/hr IV Q8H [facility] Last Infusion: 02/08/25 02:14 Dose: Infused Documented By: CLIFF Metronidazole (Flagyl) 500 mg in 100 mls @ 100 mls/hr IV Q8H [facility] Last Infusion: 02/08/25 04:35 Dose: Infused Documented By: CLIFF Insulin Glargine (Insulin Glargine,Hum.Rec.Anlog 100 Unit/Ml 10 Ml Vial) 30 unit SUBCUT DAILY [facility] Last Admin: 02/07/25 07:59 Dose: Not Given Documented By: KEISHA Non-Admin Reason: pt c/o nausea,poor appetite Insulin Human Lispro (Insulin Lispro 100 Unit/Ml 3 Ml Vial) 0 unit SUBCUT QIDACHS [facility]; Protocol Last Admin: 02/08/25 07:40 Dose: Not Given Documented By: KEISHA Non-Admin Reason: No Insulin Coverage Isosorbide Mononitrate (Isosorbide Mononitrate 30 Mg Tab.Er.24h) 30 mg PO DAILY [facility]; Protocol Last Admin: 02/07/25 07:30 Dose: 30 mg Documented By: KEISHA Losartan Potassium (Losartan Potassium 25 Mg Tablet) 25 mg PO DAILY [facility]; Protocol Last Admin: 02/07/25 07:30 Dose: 25 mg Documented By: KEISHA Metoclopramide HCl (Metoclopramide Hcl 10 Mg/2 Ml Vial) 10 mg IVPUSH TID PRN PRN Reason: Nausea and Vomiting Metoprolol Succinate (Metoprolol Succinate Er 25 Mg Tab.Er.24h) 25 mg PO DAILY [facility]; Protocol Last Admin: 02/07/25 07:31 Dose: 25 mg Documented By: KEISHA Ondansetron HCl (Ondansetron Hcl 4 Mg/2 Ml Vial) 4 mg IVPUSH Q6H PRN PRN Reason: Nausea and Vomiting Last Admin: 02/07/25 21:09 Dose: 4 mg Documented By: CLIFF Oxycodone HCl (Oxycodone Hcl Immed Release 5 Mg Tablet) 10 mg PO Q6H PRN PRN Reason: Pain, Moderate(Pain Scale 4-6) Pantoprazole Sodium (Pantoprazole Sodium 40 Mg/10 Ml Vial) 40 mg IVPUSH BID@0630,1630 [facility] Rivaroxaban (Rivaroxaban 20 Mg Tablet) 20 mg PO DAILY@1700 [facility] Last Admin: 02/07/25 16:30 Dose: 20 mg Documented By: KEISHA Sodium Chloride (0.9 % Sodium Chloride Flush 3 Ml Syringe) 3 ml IVFLUSH QSHIFT [facility] Last Admin: 02/07/25 21:09 Dose: 3 ml Documented By: CLIFF Labs 02/05/25 07:30 02/05/25 07:30 Labs: Laboratory Results - last 24 hr 02/07/25 02/07/25 02/07/25 11:20 16:13 19:52 POC Glucose 137 H 147 H 147 H 02/08/25 07:00 POC Glucose 139 H Assessment and Plan (1) DKA (diabetic ketoacidosis): Status: Acute Plan 64-year-old male with history of diabetes, gastroparesis who presented to the emergency department with abdominal pain, nausea, vomiting found to have metabolic acidosis and elevated beta hydroxybutyrate consistent with DKA admitted to the ICU and started on insulin drip, also found to have colitis. Transferred to medical floor for 1125 Diabetic Gastroparesis Reglan, zofran, erythromycin oral and IV narcotic pain mediction GI consult> continue IV fluids, ppi, IV Reglan for gastroparesis, erythromycin 250 IV TID if symptoms do not improve, outpatient gastric emptying study Plan for EGD tomorrow, NPO after midnight Pancolitis Still with abdominal pain but better No diarrhea will stop cipro/flagyl as they may be causing nausea and vomiting Antiemetics DM2 with DKA. DKA resolved s/p insulin drip in the ICU Continue Lantus and sliding scale Farxiga on hold Diet as tolerated Paroxysmal atrial fibrillation AC with xarelto resume metoprolol GERD Continue PPI DISPO oob to [facility] and ambulating DVT prophylaxis with Xarelto Full code Quality Stroke Does the patient have a stroke diagnosis?: No VTE Prior VTE?: No VTE Risk Level:: Medical - moderate - high VTE Device Contraindication: Treatment Not Indicated VTE Drug Contraindication: N/A - Med Ordered
[2025-02-08] MEDS: 0.9 % Sodium Chloride Flush 3 ML SYRINGE IVFLUSH (07:49)
[2025-02-08] MEDS: Pantoprazole Sodium 40 MG/10 ML VIAL IVPUSH ×2 (07:49→16:27)
--- NOTE | 2025-02-08 08:00 | PC.NURSE ---
Patient refused all morning po meds,c/o nausea,will medicate with zofran,crying stating wants to go home,not eating ,planning to hold lantus insulin,PERRY Conley notified
[2025-02-08] MEDS: ondansetron HCL 4 MG/2 ML VIAL IVPUSH ×2 (08:05→15:09)
[2025-02-08 11:28] LABS: Glucose, Whole Blood 139 mg/dL (60-115)
--- NOTE | 2025-02-08 14:51 | PM.DS ---
DS: Providers Provider Date of Service: 02/08/25 Date of admission: 02/03/25 13:20 Date of discharge: 02/08/25 Primary care physician: Marley Rick MD Consults: 02/06/25 09:00 Consult to Gastroenterology Routine Consulting Provider: Prisca Curtis Reason for consultation: abd pain , gastroparesis DS: Diagnosis Discharge Diagnosis (1) DKA (diabetic ketoacidosis): Status: Acute DS: Summary Hospital Course Hospital Course: History and physical as per admitting provider. 64-year-old gentleman with underlying history of diabetes mellitus, diabetic gastroparesis, CAD presented complain of on day history of nausea, vomiting, and abdominal epigastric pain. On ER evaluation patient noted to have metabolic acidosis with elevated beta hydroxybutyrate hyperglycemia. Patient's CT abdomen is pending. He has been started on insulin drip and admitted to the intensive care unit. 64-year-old man treated for diabetic gastroparesis. Treated with Reglan, Zofran, erythromycin, oral and IV narcotic medications. Seen evaluated by Gastroenterology who recommended continuing IV fluids and medications noted. Recommendation for EGD however patients symptoms improved significantly +++ Pancolitis, showing on imaging but likely not complete pancolitis. Was treated with ciprofloxacin and Flagyl which may have contributed to his nausea and vomiting. Once this was stopped patient's symptoms improved. DM2 with DKA. Admitted to ICU initially for insulin drip. Resolved and transferred back to medical floor. She was should continue his home medications and should follow up with endocrinology for management of his diabetes Paroxysmal atrial fibrillation. Continue metoprolol and Xarelto. GERD. Continue PPI Time Attestation Discharge Coordination Time (in mins): 40 Quality: Safe Use of Opioids Does Pt have an Active Cancer Diagnosis on the Problem List?: No Quality: Stroke Does the patient have a stroke diagnosis?: No Physical Exam Vital Signs: Vital Signs: Last Vital Signs Temp 97.7 F 02/08/25 07:07 Pulse 73 02/08/25 07:07 Resp 16 02/08/25 07:07 BP 135/75 02/08/25 07:07 Pulse Ox 96 02/08/25 07:07 O2 Del Method Room Air 02/08/25 07:07 BMI result Body Mass Index 36.7 Appearing in no acute distress head is normocephalic atraumatic eyes pupils are PERRLA sclera is anicteric mouth throat mucous membranes are intact and moist neck is supple no lymphadenopathy, no JVD noted lung sounds are clear to auscultation heart regular rate rhythm, clear S1, S2 positive bowel sounds, abdomen is soft, nontender neuro patient is alert x3, no focal deficits DS: Data Data Completed and Pending Completed studies during hospitalization [Text1]: Procedures Detachment at Left 1st Toe, Complete, Open Approach (01/03/22) Drainage of Pelvic Region Subcutaneous Tissue and Fascia, Open Approach (04/30/23) Fluoroscopy of Left Lower Extremity Arteries using High Osmolar Contrast (08/04/22) Fluoroscopy of Right Subclavian Vein using Low Osmolar Contrast, Guidance (08/04/22) Insertion of Infusion Device into Right Subclavian Vein, Percutaneous Approach (08/04/22) Insertion of Infusion Device into Superior Vena Cava, Percutaneous Approach (01/20/22) Ultrasonography of Superior Vena Cava, Guidance (01/03/22) Labs on day of discharge: Laboratory Results - last 24 hr 02/07/25 02/07/25 02/08/25 16:13 19:52 07:00 POC Glucose 147 H 147 H 139 H 02/08/25 11:19 POC Glucose 139 H Discharge Plan Discharge Anticipated Discharge Date/Time: 02/08/25 16:56 Patient Disposition: Home, Self-Care Discharge Diagnosis: Diabetic gastroparesis Pancolitis Referrals: Marley Rick MD [Primary Care Provider] - 1 Week Discharge Medications: New ondansetron 8 mg tablet,disintegrating 8 mg PO Q8H PRN (Reason: nausea and vomiting) Qty: 15 0RF Continued (DME) walker Misc See Rx Instructions .Route Qty: 1 0RF Rx Instructions: As directed (DME) Aircast off loading boot Kit See Rx Instructions .Route Qty: 1 0RF Rx Instructions: As directed (DME) elastic bandage 6 X 1.8 -yard bandage See Rx Instructions .Route Qty: 6 0RF Rx Instructions: As directed (DME) gauze bandage [Band-Aid Gauze Pads] 4 X 4 bandage See Rx Instructions .Route Qty: 25 3RF Rx Instructions: As directed (DME) sterile gauze 4x4 See Rx Instructions .Route .MEDSUPPLY Qty: 40 3RF Rx Instructions: Apply to left foot wound every other day (DME) calcium alginate ag 4x4 pad See Rx Instructions .Route .MEDSUPPLY Qty: 5 2RF Rx Instructions: Apply to wound beds every other day insulin glargine [Lantus U-100 Insulin] 100 unit/mL solution 10 unit subcut BID Rx Instructions: 50 units at lunch and 100 units at bedtime isosorbide mononitrate 30 mg tablet extended release 24 hr 30 mg PO DAILY pantoprazole 40 mg tablet,delayed release (DR/EC) 40 mg PO BID@0630,1630 losartan 25 mg tablet 25 mg PO DAILY gabapentin 300 mg capsule 300 mg PO TID loratadine 10 mg tablet 10 mg PO DAILY ezetimibe 10 mg tablet 10 mg PO DAILY rosuvastatin 40 mg tablet 40 mg PO BEDTIME meclizine 25 mg tablet 25 mg PO TID PRN (Reason: Dizziness Or Vertigo) (DME) jw Molina See Rx Instructions .Route Qty: 1 0RF Rx Instructions: As directed aspirin 81 mg tablet,delayed release (DR/EC) 81 mg PO DAILY venlafaxine 100 mg tablet 100 mg PO BID furosemide 20 mg tablet 20 mg PO DAILY metoprolol succinate 25 mg tablet extended release 24 hr 25 mg PO DAILY insulin lispro 100 unit/mL solution See Protocol subcut QIDACHS Protocol: Insulin Correction Scale Less than or equal to 110 ---- Give (units): 0 111 to 150 Give (units): 0 151 to 200 Give (units): 2 201 to 250 Give (units): 4 251 to 300 Give (units): 6 301 to 350 Give (units): 8 Greater than 350 Give (units): 10 Call MD if Blood Glucose > : 350 oxycodone 10 mg tablet 10 mg PO Q4H PRN (Reason: Pain) Xarelto 20 mg tablet 20 mg PO DAILY@1700 metoclopramide HCl [Reglan] 10 mg tablet 10 mg PO Q8H PRN (Reason: nausea and vomiting) Qty: 30 0RF dapagliflozin propanediol [Farxiga] 10 mg tablet 10 mg PO DAILY Discharge Orders: Discharge Order (Routine); Ordered 02/08/25 Ordered By: Yael Lopez Diet: Advance to usual diet Activity on Discharge: As tolerated Stand Alone Forms: Patient Portal Discharge page Print Language: Finnish Care Plan Goals: Follow blood sugars closely check blood sugars before meals and at bedtime. Health Concerns: Diabetic gastroparesis Pancolitis Plan of Treatment: Follow-up with primary care provider as needed Take all medications as prescribed Assessment: See discharge summary
[2025-02-08 15:35] VITALS: BP 142/83; PULSE 75; RESP 18; TEMP 36.1; O2SAT 100
--- NOTE | 2025-02-08 16:01 | P.PNGI_ITS ---
Subjective Subjective Date of Service: 02/08/25 Interval History: he feels much better today having lunch when I saw him he has minimal nausea mild epigastric pain, improved Critical Care Time (minutes): 0 Physical Exam 2 Vital Signs: Vital Signs: Last Vital Signs Temp 97 F 02/08/25 15:35 Pulse 75 02/08/25 15:35 Resp 18 02/08/25 15:35 BP 142/83 H 02/08/25 15:35 Pulse Ox 100 02/08/25 15:35 O2 Del Method Room Air 02/08/25 15:35 BMI result Body Mass Index 36.7 EXAM: GENERAL: The patient is well developed and nontoxic. VITAL SIGNS:see workflow HEENT: Nonicteric sclerae, PERRLA, EOMI. Oropharynx clear. Moist mucous membranes. Conjunctivae appear well perfused. No thyroid mass. CHEST: Chest wall is nontender. HEART: Regular rate and rhythm without murmurs. LUNGS: Clear to auscultation bilaterally. ABDOMEN: Soft, positive bowel sounds, mildly tender epigastrium, no organomegaly.no flank tenderness SKIN: No rash, no excessive bruising, petechiae, or purpura. NEUROLOGIC: Cranial nerves II-XII intact without motor/sensory deficit. Psych: normal affect Objective Data Labs 02/05/25 07:30 02/05/25 07:30 Labs: Laboratory Results - last 24 hr 02/07/25 02/07/25 02/08/25 16:13 19:52 07:00 POC Glucose 147 H 147 H 139 H 02/08/25 11:19 POC Glucose 139 H Procedures Date of Service Date of Service: 02/08/25 Progress Note: A&P Assessment and plan (1) DKA (diabetic ketoacidosis): Status: Acute Plan 1/ Epigastric pain and nausea, improving and ready to eat PLAN 1/ cont PO diet 2/ cont with PPI 3/ EGD tomorrow if ongoing issues today, otherwise cont with PO diet and PO PPI Time Spent With Patient Time: Total time managing care of this patient today ____ minutes. Quality Stroke Does the patient have a stroke diagnosis?: No VTE Prior VTE?: No VTE Risk Level:: Medical - moderate - high VTE Device Contraindication: Treatment Not Indicated VTE Drug Contraindication: N/A - Med Ordered
[2025-02-08 16:12] LABS: Glucose, Whole Blood 156 mg/dL (60-115)
[2025-02-08] MEDS: Insulin Lispro 100 UNIT/ML 3 ML VIAL SUBCUT (16:24)
[2025-02-08] MEDS: Rivaroxaban 20 MG TABLET PO (16:27)
== END 2025-02-08 18:18 | disposition home or self-care (01) | DRG 420 ==
LOC: HO.ED 11:45 → HO.EDOVER 13:33 → HO.ICU 13:50 → HO.S3 02-04 15:46
PROVIDERS: Physician Assistant Medical; Registered Nurse Community Health; Admitting Provider Internal Medicine Pulmonary Disease; Emergency Provider Emergency Medicine Emergency Medical Services; PCP Internal Medicine; Visit Provider Nurse Practitioner Acute Care
DX: E11.10 Type 2 diabetes mellitus with ketoacidosis without coma (principal); I25.10 Atherosclerotic heart disease of native coronary artery without angina pectoris; E11.43 Type 2 diabetes mellitus with diabetic autonomic (poly)neuropathy; K31.84 Gastroparesis; K52.9 Noninfective gastroenteritis and colitis, unspecified; K21.9 Gastro-esophageal reflux disease without esophagitis; I48.0 Paroxysmal atrial fibrillation; Z20.822 Contact with and (suspected) exposure to COVID-19; Z87.891 Personal history of nicotine dependence; Z95.1 Presence of aortocoronary bypass graft; Z79.4 Long term (current) use of insulin; Z79.01 Long term (current) use of anticoagulants; Z79.82 Long term (current) use of aspirin; Z79.899 Other long term (current) drug therapy
CPT/HCPCS: 0241U; 36415; 71045; 74177; 80048; 80076; 80307; 81001; 82010; 82040; 82803; 82947; 83690; 83735; 84100; 84484; 85025; 93005; 97161; 99285; J0744; J1171; J1364; J1836; J1885; J2405; J2470; J2765; J3010; J7120; Q9967

== ENCOUNTER → 2025-02-03 11:09 | Outpatient (BNV) | payer OTHER, SELFPAY | PROVIDERS: Admitting Provider Internal Medicine Pulmonary Disease; Emergency Provider Emergency Medicine Emergency Medical Services; PCP Internal Medicine; Visit Provider Internal Medicine Cardiovascular Disease | DX: R94.31 Abnormal electrocardiogram [ECG] [EKG] (principal); R10.9 Unspecified abdominal pain | CPT/HCPCS: 93010 ==

== ENCOUNTER → 2025-02-03 11:45 | Outpatient (BNV) | payer OTHER, SELFPAY | PROVIDERS: Emergency Provider Emergency Medicine Emergency Medical Services; PCP Internal Medicine; Visit Provider Radiology Diagnostic Radiology | DX: R07.9 Chest pain, unspecified (principal); K51.00 Ulcerative (chronic) pancolitis without complications | CPT/HCPCS: 71045; 74177 ==

== ENCOUNTER → 2025-02-03 13:20 | Outpatient (BNV) | payer OTHER, SELFPAY | PROVIDERS: Admitting Provider Internal Medicine Pulmonary Disease; Emergency Provider Emergency Medicine Emergency Medical Services; PCP Internal Medicine; Visit Provider Internal Medicine Gastroenterology | DX: E11.10 Type 2 diabetes mellitus with ketoacidosis without coma (principal) | CPT/HCPCS: 99232 ==

== ENCOUNTER → 2025-02-03 13:20 | Outpatient (BNV) | payer OTHER, SELFPAY | PROVIDERS: Admitting Provider Internal Medicine Pulmonary Disease; Emergency Provider Emergency Medicine Emergency Medical Services; PCP Internal Medicine; Visit Provider Physician Assistant Medical | DX: E11.10 Type 2 diabetes mellitus with ketoacidosis without coma (principal) | CPT/HCPCS: 99232; 99499 ==

== ENCOUNTER → 2025-02-03 13:20 | Outpatient (BNV) | payer OTHER, SELFPAY | PROVIDERS: Admitting Provider Internal Medicine Pulmonary Disease; Emergency Provider Emergency Medicine Emergency Medical Services; PCP Internal Medicine; Visit Provider Internal Medicine Pulmonary Disease | DX: K51.00 Ulcerative (chronic) pancolitis without complications (principal); E11.51 Type 2 diabetes mellitus with diabetic peripheral angiopathy without gangrene; I48.91 Unspecified atrial fibrillation | CPT/HCPCS: 99223; 99232 ==

== ENCOUNTER 2025-02-25 07:58 | Inpatient (IN) | payer OTHER, SELFPAY ==
[2025-02-25] VITALS (9 sets, daily range): BP systolic 101–213; BP diastolic 57–118; PULSE 88–109; RESP 16–26; TEMP 36.2–36.8; O2SAT 94–100; BMI 35.6; BMI 35.7
--- NOTE | ~2025-02-25 | CT_ITS ---
EXAMINATION: CT ABDOMEN PELVIS WITH IV CONTRAST HISTORY: abdominal pain, nausea, vomiting COMPARISON: There are comparison is made with the prior examination dated 02/03/2025. TECHNIQUE: CT scan of the abdomen and pelvis was performed following administration of 85 mL Omnipaque 350 using standard departmental protocol. Coronal and sagittal reformatted images were generated and reviewed. Oral contrast material was not administered at the request of the referring physician. This CT exam was performed with one or more of the following dose reduction techniques: automated exposure control, adjustment of the mA and/or kV according to patient size, use of iterative reconstruction technique. DLP: 906 mGy-cm FINDINGS: LOWER CHEST: The visualized lung bases are clear. There is no pleural effusion. CARDIOVASCULATURE: The heart is normal in size. There is no pericardial effusion. LIVER: The liver is normal in size and contour. No liver mass is identified. The hepatic and portal veins are patent. GALLBLADDER / BILE DUCTS: The gallbladder is surgically absent. There is no intra or extrahepatic biliary ductal dilatation. SPLEEN: The spleen is normal in size. No focal splenic lesion is identified. PANCREAS: The pancreas is unremarkable in appearance. ADRENAL GLANDS: Within normal limits. KIDNEYS/RETROPERITONEUM: No renal calculi are identified. There is no hydronephrosis. There are subcentimeter hypodensities in the kidneys which likely represent cysts, but are too small to accurately characterize. LYMPH NODES: No abdominal or pelvic lymphadenopathy. VASCULATURE: The abdominal aorta demonstrates atherosclerotic calcification, but is normal in caliber. MESENTERY/PERITONEUM: No free fluid. No masses. There is no free intraperitoneal gas. STOMACH: There is a small hiatal hernia. The stomach is otherwise collapsed. SMALL BOWEL: The small bowel is normal in caliber. COLON: The ascending, descending and sigmoid colon are collapsed. It is difficult to exclude mild wall thickening. APPENDIX: Normal. URINARY BLADDER/PELVIC ORGANS: The urinary bladder is obscured by streak artifact from bilateral total hip arthroplasties. The prostate is similarly obscured. BONES / SOFT TISSUES: The patient is status post posterior fusion of L3-S1 with pedicle screws and spinal stabilization rods. There is soft tissue infiltration of the anterior abdominal wall fat below the umbilicus, contains calcifications. This may represent fat necrosis secondary to subcutaneous injections. CT/CT abdomen pelvis w IV con IMPRESSION: Small hiatal hernia. Collapse of the ascending, descending, and sigmoid colon. It is difficult to exclude wall thickening in these regions. Electronically signed by: Eddie Landaverde MD 02/25/2025 09:39 AM EDT
--- NOTE | 2025-02-25 08:02 | ECG_ITS ---
Test Reason : ABD PAIN Blood Pressure : */* mmHG Vent. Rate : 113 BPM Atrial Rate : 113 BPM P-R Int : 162 ms QRS Dur : 84 ms QT Int : 338 ms P-R-T Axes : 37 -14 55 degrees QTcB Int : 463 ms Sinus tachycardia Nonspecific ST and T wave abnormality Abnormal ECG When compared with ECG of 03-Feb-2025 11:09, Nonspecific T wave abnormality now evident in Inferior leads Referred By: Anna Piedra Electronically Signed By: Kenny Pond
--- NOTE | 2025-02-25 08:03 | ED_ITS ---
HPI - General Adult General Chief complaint: Abdominal Pain Stated complaint: NAUSEA VOMITING DIARRHEA Time Seen by Provider: 02/25/25 08:02 Source: patient, family (patient's ) and EMS Mode of arrival: EMS Limitations: no limitations History of Present Illness ED Provider: Anna Piedra PA-C HPI narrative: Patient is a 64 year old assigned male at with a history of DM, CAD, PVD, Gastroparesis, asthma, and HTN presenting to the emergency department today with abdominal pain, nausea, vomiting, and diarrhea. Patient states that he was here on 02/03/2025 for similar symptoms and was admitted to the hospital. Patient states that he was doing better but now the pain, nausea, vomiting, and diarrhea has returned. Patient denies any dizziness, lightheadedness, fever, chills, blurry vision, double vision, loss of vision, chest pain, difficulty breathing, shortness of breath, back pain, night sweats, pain with urination, increased urinary frequency, increased urinary urgency, blood in his urine or stool, syncope or a near syncopal episode, recent trauma or falls, bowel incontinence, bladder incontinence, or any other complaints at this time. Relieving factors: none Exacerbating factors: none Associated symptoms: nausea/vomiting Related Data Home Medications ?Medication ?Instructions ?Recorded ?Confirmed ezetimibe 10 mg tablet 10 mg PO DAILY 01/03/22 02/03/25 gabapentin 300 mg capsule 300 mg PO TID 01/03/22 02/03/25 insulin glargine 100 unit/mL 10 unit subcut BID 01/03/22 02/03/25 subcutaneous solution (Lantus U-100 Insulin) isosorbide mononitrate 30 mg 30 mg PO DAILY 01/03/22 02/03/25 tablet,extended release 24 hr loratadine 10 mg tablet 10 mg PO DAILY 01/03/22 02/03/25 losartan 25 mg tablet 25 mg PO DAILY 01/03/22 02/03/25 meclizine 25 mg tablet 25 mg PO TID PRN Dizziness Or 01/03/22 02/03/25 Vertigo pantoprazole 40 mg tablet,delayed 40 mg PO BID@0630,1630 01/03/22 02/03/25 release rosuvastatin 40 mg tablet 40 mg PO BEDTIME 01/03/22 02/03/25 aspirin 81 mg tablet,delayed 81 mg PO DAILY 08/04/22 02/03/25 release furosemide 20 mg tablet 20 mg PO DAILY 11/13/22 02/03/25 venlafaxine 100 mg tablet 100 mg PO BID 11/13/22 02/03/25 metoprolol succinate 25 mg 25 mg PO DAILY 10/14/24 02/03/25 tablet,extended release 24 hr insulin lispro 100 unit/mL See Protocol subcut QIDACHS 12/16/24 02/03/25 subcutaneous solution oxycodone 10 mg tablet 10 mg PO Q4H PRN Pain 12/16/24 02/03/25 rivaroxaban 20 mg tablet (Xarelto) 20 mg PO DAILY@1700 12/16/24 02/03/25 dapagliflozin propanediol 10 mg 10 mg PO DAILY 02/03/25 02/03/25 tablet (Farxiga) Previous Rx's ?Medication ?Instructions ?Recorded walker #1 ea 01/11/22 walker #1 ea 01/15/22 Band-Aid Gauze Pads 4 X 4 #25 ea 04/16/22 bandage (gauze bandage) elastic bandage 6 X 1.8 yard #6 ea 04/16/22 off loading boot (Aircast off #1 ea 04/16/22 loading boot) calcium alginate ag #5 ea 04/23/22 sterile gauze #40 ea 04/23/22 metoclopramide HCl 10 mg tablet 10 mg PO Q8H PRN nausea and 10/28/24 (Reglan) vomiting #30 tabs ondansetron 8 mg disintegrating 8 mg PO Q8H PRN nausea and 02/08/25 tablet vomiting #15 tabs Allergies Allergy/AdvReac Type Severity Reaction Status Date / Time morphine AdvReac Intermediate Hallucinati Verified 02/25/25 08:11 ons Review of Systems 2 Constitutional: Constitutional: Reports no additional constitutional complaints, Denies chills, Denies fever(s) and Denies night sweats Eyes: Eyes: Reports no additional eye complaints, Denies blurry vision, Denies change in vision, Denies diplopia, Denies eye discharge, Denies loss of vision and Denies eye pain ENT: Denies dizziness Cardiovascular: Cardiovascular: Reports no additional cardiovascular complaints, Denies chest pain, Denies lightheadedness, Denies Loss of Consciousness and Denies dyspnea Respiratory: Respiratory: Reports no additional respiratory complaints and Denies dyspnea Gastrointestinal: Gastrointestinal: Reports no additional gastrointestinal complaints, Reports abdominal pain, Denies melena, Denies hematochezia, Denies change in bowel habits, Denies change in stool character, Reports diarrhea, Reports nausea and Reports vomiting Genitourinary: Genitourinary: Reports no additional male genitourinary complaints, Denies hematuria, Denies oliguria, Denies difficulty urinating, Denies dysuria, Denies urinary frequency, Denies urinary hesitancy, Denies urinary incontinence and Denies urinary urgency Musculoskeletal: Musculoskeletal: Reports no additional musculoskeletal complaints, Denies numbness and Denies tingling Neurologic: Denies dizziness, Denies loss of vision, Denies numbness and Denies tingling Psychiatric: Psychiatric: Reports no additional psychiatric complaints Endocrine: Endocrine: Reports no additional endocrine complaints Hematologic/Lymphatic: Hematologic/Lymphatic: Reports no additional hematologic/lymphatic complaints Allergic/Immunologic: Allergic/Immunologic: Reports no additional allergic/immunologic complaints PMFSH Past Medical History Attestation statement: The following information was validated with the patient. (patient's validated all information) Source: old records reviewed, obtained from family (patient's provided additional history and confirmed the history provided by the patient.) and nursing notes reviewed Medical History PVD (peripheral vascular disease) Gastroparesis DKA (diabetic ketoacidosis) Obesity (BMI 30-39.9) PAD (peripheral artery disease) Afib Amputation of left great toe Lower limb amputation, great toe CAD (coronary artery disease) DMII (diabetes mellitus, type 2) Orthopedic hardware present Hyperglycemia Cellulitis Asthma Diabetes Hypertension FHx: bilateral hip replacements Surgical History History of amputation of toe (07/29/22) History of amputation of great toe (01/07/22) History of back surgery History of neck surgery History of ankle surgery H/O bilateral hip replacements S/P quadruple vessel bypass Family History Family History Other No family history of coronary artery disease Social History Social History Household Members: Family Household Members Other:: 3 Housing: House Are you a primary day care attendant to a significant other at home: No Do you presently have visiting nurse or other home services: No Alcohol intake: never Comment: refused bed or chair alarm Patient Tobacco Use Status: Former Tobacco user Tobacco use type: Cigarette Second Hand Smoke Exposure: No Substance Use Type: Marijuana Advance Directives: No Advance Directives Information Provided: Yes Advance Directives Date on File: 01/04/22 service: No Current occupational status: disabled Physical Exam ED Vital Signs: Vital Signs - 24 hr 02/25/25 08:06 02/25/25 08:42 02/25/25 09:59 Temperature 98.3 F Pulse Rate 109 H 103 H 100 Respiratory Rate 20 26 H Blood Pressure 210/116 H 211/111 H 190/92 H Pulse Oximetry 100 100 Oxygen Delivery Method Room Air Room Air 02/25/25 10:23 02/25/25 10:36 02/25/25 10:40 Temperature Pulse Rate 93 92 Respiratory Rate 18 22 H Blood Pressure 192/89 H 213/107 H Pulse Oximetry 98 Oxygen Delivery Method Room Air 02/25/25 11:57 Temperature Pulse Rate 91 Respiratory Rate 18 Blood Pressure 101/67 Pulse Oximetry 98 Oxygen Delivery Method Room Air BMI result Body Mass Index 35.6 Const General: cooperative, no acute distress, alert and awake Nutritional Appearance: well nourished Orientation/consciousness: patient oriented x3 HENMT Head: Yes normal to inspection and Yes atraumatic Ears: hearing grossly normal bilaterally and external ears normal General nose exam: Normal external nose present, no nasal discharge noted and no epistaxis Face and sinus: Yes normal facial exam, No abrasion and No laceration Mouth: Normal oral and palatal mucosa present, no drooling and no muffled voice Eyes General: appearance normal, both eyes and all related structures Periorbital: periorbital findings normal Eyelids: Yes eyelids normal Conjunctivae: conjunctivae normal Pupils: Equal, round and reactive pupils present EOM: EOMs intact bilaterally Neck Neck: Yes normal visual inspection, Yes full ROM and Yes no lymphadenopathy Resp Effort & Inspection: normal respiratory effort and able to speak in complete sentences GI Palpation (GI): Soft to palpation, not firm, Tenderness to palpation present (GI) (diffusely), no guarding and not rigid Neuro General: patient oriented x3, moves all extremities and CN's II-XI intact bilaterally Cranial nerves: Yes Equal, round and reactive pupils present Cognition (Neuro): normal cognition Extrem General: Yes normal to inspection, Yes full ROM and Yes capillary refill normal Psych Appearance: grossly normal Mental Status: mental status grossly normal Affect: normal affect Attitude: cooperative Thought process: Normal thought process present Thought content: Normal thought content present Insight: Good insight present (Psych) Medications Administered Discontinued Medications Generic Name Dose Route Start Last Admin Trade Name Yajaira PRN Reason Stop Dose Admin Diazepam 2.5 mg 02/25/25 10:56 02/25/25 11:19 Diazepam 10 Mg/2 Ml Cartridge IVPUSH 02/25/25 10:57 2.5 mg STAT STA Administration Hydromorphone HCl 1 mg 02/25/25 08:19 02/25/25 08:39 Hydromorphone Hcl 1 Mg/Ml Syringe IVPUSH 02/25/25 08:20 1 mg ONCE ONE Administration Protocol Hydromorphone HCl 0.5 mg 02/25/25 10:27 02/25/25 10:36 Hydromorphone Hcl 0.5 Mg/0.5 Ml Syringe IVPUSH 02/25/25 10:28 0.5 mg ONCE ONE Administration Protocol Lactated Ringer's 1,000 mls @ 999 mls/hr 02/25/25 09:15 02/25/25 10:28 Lr IV 02/25/25 10:15 Infused .Q1H1M WILLIAM Infusion Lactated Ringer's 1,000 mls @ 999 mls/hr 02/25/25 09:30 02/25/25 10:42 Lr IV 02/25/25 10:30 Infused .Q1H1M WILLIAM Infusion Insulin Human Regular 5 unit 02/25/25 10:56 02/25/25 11:17 Insulin Regular, Human 100 Unit/Ml 10 Ml Vial IVPUSH 02/25/25 10:57 5 unit ONCE ONE Administration Iohexol 100 ml 02/25/25 09:20 02/25/25 09:22 Iohexol 350 Mg/Ml 100 Ml Infus..Btl IV 02/25/25 09:21 85 ml ONCE ONE Administration Labetalol HCl 10 mg 02/25/25 09:50 02/25/25 09:59 Labetalol Hcl 100 Mg/20 Ml Vial IVPUSH 02/25/25 09:51 10 mg ONCE ONE Administration Labetalol HCl 10 mg 02/25/25 10:27 02/25/25 10:40 Labetalol Hcl 100 Mg/20 Ml Vial IVPUSH 02/25/25 10:28 10 mg ONCE ONE Administration Metoclopramide HCl 10 mg 02/25/25 10:27 02/25/25 10:36 Metoclopramide Hcl 10 Mg/2 Ml Vial IVPUSH 02/25/25 10:28 10 mg ONCE ONE Administration Ondansetron HCl 4 mg 02/25/25 08:19 02/25/25 08:39 Ondansetron Hcl 4 Mg/2 Ml Vial IVPUSH 02/25/25 08:20 4 mg ONCE ONE Administration Pantoprazole Sodium 40 mg 02/25/25 08:31 02/25/25 08:41 Pantoprazole Sodium 40 Mg/10 Ml Vial IVPUSH 02/25/25 08:32 40 mg ONCE ONE Administration Medical Decision Making Medical Decision Making [facility] Narrative: Patient is a 64 year old assigned male at with a history of DM, CAD, PVD, Gastroparesis, asthma, and HTN presenting to the emergency department today with abdominal pain, nausea, vomiting, and diarrhea. Patient's physical exam was as noted in the physical exam portion of this note. Patient's initial blood work showed an anion gap of 22, bicarb 16, glucose of 273, beta-hydroxy 2.55, and slightly elevated WBC count of 11.7. Patient's urine showed no acute process. Patient's EKG showed sinus tachycardia. Patient's CT abd/pelvis showed no acute process. Patient was given 2 liters of IV LR and his metabolic panel was repeated showing a bicarb of 18, anion gap of 18 (closed), and glucose of 296. I consulted with my attending physician, Dr. Barnes, who recommended giving 5 units of IV insulin. Patient was also given IV dilaudid and valium for his epigastric pain which upon re-evaluation he stated helped his symptoms significantly. I spoke with the hospitalist team who agreed to admission. Patient's clinical presentation is most consistent with gastroparesis in the setting of diabetes with intractable nausea and vomiting. I explained my physical exam findings as well as all test results to the patient and the patient's . I answered all questions asked by the patient and the patient's . Patient and the patient's verbalized agreement and understanding with this treatment plan and admission. Differential Diagnosis Differential Diagnoses: The differential diagnosis associated with the presentation includes Gastroparesis Colitis Intractable nausea and vomiting DKA HHS Admission/Observation Consideration of admission/observation: Escalation of care including admission/observation considered Patient admitted as noted in the MDM Rationale portion of this note. Consult Healthcare Provider Management of the patient was discussed with: Hospitalist (Agreed to admission as noted in the MDM Rationale portion of this note. ) and Tobacco Sampler (consulted with my attending physician, Dr. Barnes, as noted in the MDM Rationale portion of this note. ) Lab Data [facility] Lab Attestation statement: I reviewed the patient's lab results. My interpretation of these results are in the MDM Rationale portion of this note. 02/25/25 08:26 02/25/25 10:49 Labs: Lab Results 02/25/25 02/25/25 02/25/25 Range/Units 08:26 10:45 10:49 WBC 11.7 H (4.8-10.8) X10*3/uL RBC 5.04 (4.60-5.80) X10*6/uL Hgb 14.7 (14.0-18.0) g/dl Hct 42.8 (42.0-52.0) % MCV 84.9 (80.0-98.0) fL MCH 29.2 (27.0-33.0) pg MCHC 34.3 (31.0-36.0) g/dl RDW 13.5 (11.0-16.0) % Plt Count 362 D (160-400) X10*3/uL MPV 9.6 (9.4-12.4) fL Immature Gran % (Auto) 0.4 (0.0-0.4) % Neut % (Auto) 64.1 (45-73) % Lymph % (Auto) 28.3 (20-40) % [place] % (Auto) 6.5 (2-11) % Eos % (Auto) 0.3 (0-4) % Baso % (Auto) 0.4 (0-2) % Lymph # (Auto) 3.3 (1.2-4.9) X10*3/uL [place] # (Auto) 0.8 (0.1-1.2) X10*3/uL Eos # (Auto) 0.0 (0.0-0.4) X10*3/uL Baso # (Auto) 0.1 (0.0-0.2) X10*3/uL Abs Immat Gran (auto) 0.05 H (0.00-0.03) X10*3/uL Absolute Neuts (auto) 7.5 (2.0-8.3) x10*3/uL Absolute Nucleated RBC 0.000 (0.0-0.012) X10*3/uL Nucleated RBC % (auto) 0.0 (0.0-0.2) /100WBC PT 12.4 (10.9-12.4) SEC INR 1.1 (0.9-1.1) Sodium 141 138 (135-145) mmol/L Potassium 4.0 4.0 (3.3-5.1) mmol/L Chloride 107 106 (96-108) mmol/L Carbon Dioxide 16 L 18 L (22-29) mmol/L Anion Gap 22 H 18 (12-20) BUN 13 12 (9-16) mg/dL Creatinine 0.78 0.71 (0.5-1.4) mg/dL Estim Creat Clear Calc 113.0 124.1 Estimated GFR > 60 > 60 POC Glucose 296 H (60-115) mg/dL Random Glucose 273 H 289 H (60-115) mg/dL Calcium 9.7 D 9.1 D (8.4-10.2) mg/dL Magnesium 2.1 (1.6-2.6) mg/dL Total Bilirubin 0.8 (0.0-1.0) mg/dL AST 26 (5-37) U/L ALT 14 (0-40) U/L Alkaline Phosphatase 74 (39-117) U/L Troponin I Hi Sens Base 5.5 (<3.5-35.0) ng/L Troponin I Hi Sens 2 Hr 6.4 (<3.5-35.0) ng/L B-Natriuretic Peptide 111 H (<100) pg/mL Total Protein 7.1 (6.5-8.0) g/dL Albumin 4.2 (3.5-5.0) g/dL Lipase < 4 L (8-78) U/L Beta-Hydroxybutyrate 2.55 H (0.02-0.27) mmol/L Urine Color Yellow Urine Appearance Clear Urine pH 6.0 (5.0-9.0) Ur Specific [place] >= 1.030 H (1.005-1.025) Urine Protein 30 (1+) H (Neg-Trace) mg/dL Urine Glucose (UA) >=1000 H (Negative) mg/dL Urine Ketones 80 (Negative) mg/dL Urine Blood Negative (Negative) Urine Nitrite Negative (Negative) Ur Leukocyte Esterase Negative (Negative) Urine RBC 0-2 (0-2) /HPF Urine WBC 0-5 (0-5) /HPF Ur Squamous Epith Cells 0-2 (0-2) /HPF Urine Bacteria None Seen (None Seen) Hyaline Casts 0-2 (0-2) /LPF Influenza Type A (PCR) NEGATIVE (Negative) Influenza Type B (PCR) NEGATIVE (Negative) RSV RNA Qual (PCR) NEGATIVE (Negative) SARS-CoV-2 RNA (RT-PCR) NEGATIVE (Negative) 02/25/25 Range/Units 11:56 WBC (4.8-10.8) X10*3/uL RBC (4.60-5.80) X10*6/uL Hgb (14.0-18.0) g/dl Hct (42.0-52.0) % MCV (80.0-98.0) fL MCH (27.0-33.0) pg MCHC (31.0-36.0) g/dl RDW (11.0-16.0) % Plt Count (160-400) X10*3/uL MPV (9.4-12.4) fL Immature Gran % (Auto) (0.0-0.4) % Neut % (Auto) (45-73) % Lymph % (Auto) (20-40) % [place] % (Auto) (2-11) % Eos % (Auto) (0-4) % Baso % (Auto) (0-2) % Lymph # (Auto) (1.2-4.9) X10*3/uL [place] # (Auto) (0.1-1.2) X10*3/uL Eos # (Auto) (0.0-0.4) X10*3/uL Baso # (Auto) (0.0-0.2) X10*3/uL Abs Immat Gran (auto) (0.00-0.03) X10*3/uL Absolute Neuts (auto) (2.0-8.3) x10*3/uL Absolute Nucleated RBC (0.0-0.012) X10*3/uL Nucleated RBC % (auto) (0.0-0.2) /100WBC PT (10.9-12.4) SEC INR (0.9-1.1) Sodium (135-145) mmol/L Potassium (3.3-5.1) mmol/L Chloride (96-108) mmol/L Carbon Dioxide (22-29) mmol/L Anion Gap (12-20) BUN (9-16) mg/dL Creatinine (0.5-1.4) mg/dL Estim Creat Clear Calc Estimated GFR POC Glucose 263 H (60-115) mg/dL Random Glucose (60-115) mg/dL Calcium (8.4-10.2) mg/dL Magnesium (1.6-2.6) mg/dL Total Bilirubin (0.0-1.0) mg/dL AST (5-37) U/L ALT (0-40) U/L Alkaline Phosphatase (39-117) U/L Troponin I Hi Sens Base (<3.5-35.0) ng/L Troponin I Hi Sens 2 Hr (<3.5-35.0) ng/L B-Natriuretic Peptide (<100) pg/mL Total Protein (6.5-8.0) g/dL Albumin (3.5-5.0) g/dL Lipase (8-78) U/L Beta-Hydroxybutyrate (0.02-0.27) mmol/L Urine Color Urine Appearance Urine pH (5.0-9.0) Ur Specific [place] (1.005-1.025) Urine Protein (Neg-Trace) mg/dL Urine Glucose (UA) (Negative) mg/dL Urine Ketones (Negative) mg/dL Urine Blood (Negative) Urine Nitrite (Negative) Ur Leukocyte Esterase (Negative) Urine RBC (0-2) /HPF Urine WBC (0-5) /HPF Ur Squamous Epith Cells (0-2) /HPF Urine Bacteria (None Seen) Hyaline Casts (0-2) /LPF Influenza Type A (PCR) (Negative) Influenza Type B (PCR) (Negative) RSV RNA Qual (PCR) (Negative) SARS-CoV-2 RNA (RT-PCR) (Negative) Independent Interpretation I performed an independent interpretation of an: EKG and CT Scan Interpretation: My interpretation is in agreement with the radiologist's impression of this imaging study. L Report Number: [id number]: Total DLP = 918.00 mGy-cm EXAMINATION: CT ABDOMEN PELVIS WITH IV CONTRAST HISTORY: abdominal pain, nausea, vomiting COMPARISON: There are comparison is made with the prior examination dated 02/03/2025. TECHNIQUE: CT scan of the abdomen and pelvis was performed following administration of 85 mL Omnipaque 350 using standard departmental protocol. Coronal and sagittal reformatted images were generated and reviewed. Oral contrast material was not administered at the request of the referring physician. This CT exam was performed with one or more of the following dose reduction techniques: automated exposure control, adjustment of the mA and/or kV according to patient size, use of iterative reconstruction technique. DLP: 906 mGy-cm FINDINGS: LOWER CHEST: The visualized lung bases are clear. There is no pleural effusion. CARDIOVASCULATURE: The heart is normal in size. There is no pericardial effusion. LIVER: The liver is normal in size and contour. No liver mass is identified. The hepatic and portal veins are patent. GALLBLADDER / BILE DUCTS: The gallbladder is surgically absent. There is no intra or extrahepatic biliary ductal dilatation. SPLEEN: The spleen is normal in size. No focal splenic lesion is identified. PANCREAS: The pancreas is unremarkable in appearance. ADRENAL GLANDS: Within normal limits. KIDNEYS/RETROPERITONEUM: No renal calculi are identified. There is no hydronephrosis. There are subcentimeter hypodensities in the kidneys which likely represent cysts, but are too small to accurately characterize. LYMPH NODES: No abdominal or pelvic lymphadenopathy. VASCULATURE: The abdominal aorta demonstrates atherosclerotic calcification, but is normal in caliber. MESENTERY/PERITONEUM: No free fluid. No masses. There is no free intraperitoneal gas. STOMACH: There is a small hiatal hernia. The stomach is otherwise collapsed. SMALL BOWEL: The small bowel is normal in caliber. COLON: The ascending, descending and sigmoid colon are collapsed. It is difficult to exclude mild wall thickening. APPENDIX: Normal. URINARY BLADDER/PELVIC ORGANS: The urinary bladder is obscured by streak artifact from bilateral total hip arthroplasties. The prostate is similarly obscured. BONES / SOFT TISSUES: The patient is status post posterior fusion of L3-S1 with pedicle screws and spinal stabilization rods. There is soft tissue infiltration of the anterior abdominal wall fat below the umbilicus, contains calcifications. This may represent fat necrosis secondary to subcutaneous injections. CT/CT abdomen pelvis w IV con IMPRESSION: Small hiatal hernia. Collapse of the ascending, descending, and sigmoid colon. It is difficult to exclude wall thickening in these regions. Electronically signed by: Eddie Landaverde MD 02/25/2025 09:39 AM EDT RP Dictated By: Eddie Landaverde MD Signed By: Electronically signed by Eddie Landaverde MD 02/25/25 0939 I independently interpreted this EKG and am in agreement with the below findings: Vent. Rate: 113 BPM Atrial Rate: 113 BPM P-R Int: 162 ms QRS Dur: 84 ms QT Int: 338 ms P-R-T Axes: 37 -14 55 degrees QTcB Int: 463 ms Sinus tachycardia with Fusion complexes Nonspecific ST and T wave abnormality When compared with ECG of 03-Feb-2025 11:09, Fusion complexes are now Present Nonspecific T wave abnormality now evident in Inferior leads DD/ [id number] Radiology Impression Discussion of test interpretation with radiology: I have reviewed the radiologist's reading. Independent Historian Clinical information obtained from an independent historian. History obtained from or confirmed by: Spouse (Patient's provided additional history and confirmed the history provided by the patient. ) and EMS (EMS provided additional history and confirmed the history provided by the patient. ) Chronic Conditions Patient?s care impacted by: Diabetes Critical Care Time Critical Care Time Critical Care Time: Yes Total Critical Care Time: 56 Attestation: I spent 56 minutes of Critical Care Time with this patient. This does not include time spent on separately reported billable procedures. Discharge Plan Discharge Clinical Impression: Intractable nausea and vomiting, Abdominal pain, Diabetic gastroparesis Patient Disposition: Admitted As Inpatient Interventions: Admission Worksheet (ED) Last Done: 02/25/25 13:17
[2025-02-25 08:32] LABS: MANUAL DIFF FLAG NO
[2025-02-25 08:33] LABS: Basophils Absolute Auto 0.1 X10*3/uL (0.0-0.2); Basophils Percent Auto 0.4 % (0-2); Eosinophils Percent Auto 0.3 % (0-4); Hematocrit 42.8 % (42.0-52.0); Hemoglobin 14.7 g/dl (14.0-18.0); Imm Gran Abs Auto 0.05 X10*3/uL (0.00-0.03); Imm Gran Pct Auto 0.4 % (0.0-0.4); Lymphocytes Absolute Auto 3.3 X10*3/uL (1.2-4.9); Lymphocytes Percent Auto 28.3 % (20-40); Mean Corpuscular HGB Conc 34.3 g/dl (31.0-36.0); Mean Corpuscular Hemoglobin 29.2 pg (27.0-33.0); Mean Corpuscular Volume 84.9 fL (80.0-98.0); Mean Platelet Volume 9.6 fL (9.4-12.4); Monocytes Absolute Auto 0.8 X10*3/uL (0.1-1.2); Monocytes Percent Auto 6.5 % (2-11); Neutrophils Absolute Auto 7.5 x10*3/uL (2.0-8.3); Neutrophils Percent Auto 64.1 % (45-73); Platelet Count 362 X10*3/uL (160-400); Red Blood Count 5.04 X10*6/uL (4.60-5.80); Red Cell Distribution Width 13.5 % (11.0-16.0); White Blood Count 11.7 X10*3/uL (4.8-10.8)
[2025-02-25] MEDS: ondansetron HCL 4 MG/2 ML VIAL IVPUSH ×2 (08:39→20:17)
[2025-02-25] MEDS: HYDROmorphone HCl 1 MG/ML SYRINGE IVPUSH (08:39)
[2025-02-25] MEDS: Pantoprazole Sodium 40 MG/10 ML VIAL IVPUSH ×2 (08:41→15:46)
[2025-02-25 08:47] LABS: INTERNATIONAL NORM RATIO 1.1 (0.9-1.1); Prothrombin Time 12.4 SEC (10.9-12.4)
[2025-02-25 08:50] LABS: Lipase < 4 U/L (8-78)
[2025-02-25 08:52] LABS: Alanine Aminotransferase 14 U/L (0-40); Albumin Level 4.2 g/dL (3.5-5.0); Alkaline Phosphatase 74 U/L (39-117); Anion Gap 22 (12-20); Aspartate Amino Transferase 26 U/L (5-37); Bilirubin Total 0.8 mg/dL (0.0-1.0); Blood Urea Nitrogen 13 mg/dL (9-16); Calcium 9.7 mg/dL (8.4-10.2); Carbon Dioxide 16 mmol/L (22-29); Chloride 107 mmol/L (96-108); Estimated Glomerular Filt Rate > 60; Glucose Random 273 mg/dL (60-115); Magnesium 2.1 mg/dL (1.6-2.6); Sodium 141 mmol/L (135-145); Total Protein 7.1 g/dL (6.5-8.0)
[2025-02-25 08:55] LABS: Beta-Hydroxybutyrate 2.55 mmol/L (0.02-0.27)
[2025-02-25 09:00] LABS: Troponin-I High Sens Reflx 2hr 5.5 ng/L (<3.5-35.0)
[2025-02-25 09:11] LABS: Influenza A PCR NEGATIVE (Negative); Influenza B PCR NEGATIVE (Negative); Resp Syncy Virus RNA Qual PCR NEGATIVE (Negative); SARS COV2 PCR INHOUSE NEGATIVE (Negative)
[2025-02-25] MEDS: iohexoL 350 MG/ML 100 ML INFUS..BTL IV (09:22)
[2025-02-25] MEDS: Lactated Ringers 1,000 ML 999 ML IV ×2 (09:25→09:29)
--- NOTE | 2025-02-25 09:29 | PC.NURSE ---
Patient BIBA from home. c/o abdominal pain w/ n/v/d for the last 3 days. Patient A&O x 4. Denies SOB, Denies fever, chills, dizziness. Patient c/o of upper non radiating abdomen pain rating 10/10. Patient vomiting while being admitted in ED. Vomit yellow non bloody. Patient given PRN dilauded for pain with no effect patient still rated pain 10/10 but patient does appear more comfortable, currently resting. Zofran given per provider order with good effect patient no longer vomiting at this time. VSS except for patient being hypertensive at this time recent pressure 208/97. Labs collected. 20G placed in left forearm currently running 2L of LR. Patient PMH of DM pre hospital POC 264. Patient currently on Lantus and lispro but has stated he hasnt been able to take them recently due to the illness. Call bansal in reach, Teri-bag given. Plan of care on going
[2025-02-25] MEDS: Labetalol HCL 100 MG/20 ML VIAL 10 MG IVPUSH ×2 (09:59→10:40)
[2025-02-25 10:32] LABS: Reflex Trop? Y
[2025-02-25] MEDS: Metoclopramide HCl 10 MG/2 ML VIAL IVPUSH ×2 (10:36→14:51)
[2025-02-25] MEDS: HYDROmorphone HCl 0.5 MG/0.5 ML SYRINGE IVPUSH ×4 (10:36→21:35)
--- NOTE | 2025-02-25 10:47 | PC.NURSE ---
Patient vomiting and c/o nausea. Reglan administering at this time, effectiveness pending. Patient c/o abdomen pain rated 8/10. administered hydromorphone, effectiveness still pending. IV LR complete at this time, Patient POC 296. Provider Anna sloan. Repeat labs collected. Lights dimmed for patient comfort
[2025-02-25 10:54] LABS: Glucose, Whole Blood 296 mg/dL (60-115)
[2025-02-25 10:59] LABS: Appearance Urine Clear; Color Urine Yellow; Glucose Urine UA >=1000 mg/dL (Negative); Leukocyte Esterase Urine Negative (Negative); Nitrite Urine Negative (Negative); Specific Gravity - Urine >= 1.030 (1.005-1.025); UMIC TRIGGER UACC YES; Urine Blood Negative (Negative); Urine Ketones 80 mg/dL (Negative); Urine Protein 30 (1+) mg/dL (Neg-Trace)
[2025-02-25 11:05] LABS: Bacteria Urine None Seen (None Seen); Hyaline Casts Urine 0-2 /LPF (0-2); RBC Urine 0-2 /HPF (0-2); Squamous Epithelial Cell Urine 0-2 /HPF (0-2); WBC Urine 0-5 /HPF (0-5)
[2025-02-25] MEDS: Insulin Regular, Human 100 UNIT/ML 10 ML VIAL IVPUSH (11:17)
[2025-02-25 11:18] LABS: B Type Natriuretic Peptide 111 pg/mL (<100)
[2025-02-25] MEDS: diazePAM 10 MG/2 ML CARTRIDGE 2.5 MG IVPUSH (11:19)
--- NOTE | 2025-02-25 11:20 | PC.NURSE ---
Patient remains hyperglycemic despite previous IVF bolus. IVP insulin administered per provider order. Effectiveness pending. Will obtain repeat POC shortly. BP continues to decrease s/p medication administration. Otherwise VSS and up to date. NSR on the edging machine catcher. Remains on RA w/o difficulty. No SOB/WOB noted. Respirations remain even/unlabored. Plan of care ongoing. Call bansal placed within reach.
[2025-02-25 11:21] LABS: zTroponin-I High Sen Reflex #2 6.4 ng/L (<3.5-35.0)
[2025-02-25 11:30] LABS: Anion Gap 18 (12-20); Blood Urea Nitrogen 12 mg/dL (9-16); Calcium 9.1 mg/dL (8.4-10.2); Carbon Dioxide 18 mmol/L (22-29); Chloride 106 mmol/L (96-108); Creatinine Clr Calc Pharmacy 124.1; Estimated Glomerular Filt Rate > 60; Glucose Random 289 mg/dL (60-115); Sodium 138 mmol/L (135-145)
[2025-02-25 11:59] LABS: Glucose, Whole Blood 263 mg/dL (60-115)
--- NOTE | 2025-02-25 12:44 | P.HPHOSP_ITS ---
History of Present Illness Date of Service: 02/25/25 Attending physician on admission: Roni Hall Chief Complaint: N/V and abd pain Pt is a 64-year-old male with a PMH significant for?insulin-dependent type 2 diabetes, diabetic gastroparesis, CAD s/p CABG in 2018, paroxysmal AFib on Xarelto, PVD, HTN, hx of osteomyelitis s/p amputation of 1st and 2nd left toes, and peripheral neuropathy who presents to the ED with?abdominal pain and N/V/D x3 days. Has been unable to tolerate any p.o.. Pt is unable to quantify how many episodes of N/V/D he has been experiencing just that it has been lasting ?all day?. Abdominal pain primarily epigastric radiating to throat. Describes it as sharp, shooting, and burning sensation. Denies hematemesis or hematochezia. No SOB or difficulty breathing. Has been experiencing similar episodes for the past year with recent hospitalizations on 11/2024 and 02/03/2025 where he was treated for diabetic gastroparesis with DKA. States he has not been taking any of his medications including insulin for the past 3 days. States only recently began occasional marijuana vaping around 2 months ago. In the ED pt was tachycardic up to 109, tachypneic up to 26, and hypertensive as high as 213/107. Labs were significant for leukocytosis of 11.7, initial anion gap 22 with repeat closed at 18, POC as high as 296, and beta hydroxybutyrate 2.55. Stool studies pending. UA negative for UTI, but showing glucose, sedimentation, and 1+ proteinuria and [address]?of abdomen/pelvis showed small hiatal hernia with collapse of ascending, descending, and sigmoid colon. Unable to exclude wall thickening in these areas. EKG demonstrated sinus tachycardia of [address] abnormalities. Pt was treated in the ED with ondansetron, hydromorphone, Protonix, IVF, labetalol 10 mg IV x2, Reglan, insulin 5 units IV, and diazepam 2.5 mg IV. Pt is admitted to the hospital under observation for treatment and further evaluation of acute on chronic diabetic gastroparesis with intractable N/V/D. Review of Systems 2 Review of Systems: Negative except for that which is stated in the HPI. [facility] Medical History PVD (peripheral vascular disease) Gastroparesis DKA (diabetic ketoacidosis) Obesity (BMI 30-39.9) PAD (peripheral artery disease) Afib Amputation of left great toe Lower limb amputation, great toe CAD (coronary artery disease) DMII (diabetes mellitus, type 2) Orthopedic hardware present Hyperglycemia Cellulitis Asthma Diabetes Hypertension FHx: bilateral hip replacements Family History Other No family history of coronary artery disease Surgical History History of amputation of toe (07/29/22) History of amputation of great toe (01/07/22) History of back surgery History of neck surgery History of ankle surgery H/O bilateral hip replacements S/P quadruple vessel bypass Social History Household Members: Spouse and Children Household Members Other:: 3 Housing: Apartment Are you a primary healthcare economics manager to a significant other at home: No Do you presently have visiting nurse or other home services: No Alcohol intake: never Comment: refused bed or chair alarm Patient Tobacco Use Status: Former Tobacco user Tobacco use type: Cigarette Second Hand Smoke Exposure: No Use of substances other than those prescribed or required for medical reasons: Yes Substance Use Type: Marijuana Substance Use Frequency: Occasionally Last Used Substance: Weeks (ago) Currently Displaying Signs/Symptoms of Drug Intoxication Withdrawal: No Any prior treatment program specific to substance use: No Have you been hit, kicked, punched, or otherwise hurt by someone within the past year? If so, by whom?: No Do you feel safe in your current relationship?: Yes Is there a partner from a previous relationship who is making you feel unsafe now?: No Are you made to feel afraid or neglected: No Advance Directives: No Advance Directives Information Provided: Yes Advance Directives Date on File: 01/04/22 Do you have a plan to hurt others: No Plan Recently lost weight without trying: No Eating poorly because of decreased appetite: No Nutrition Risks: No Nutritional Risk Poor oral hygiene: No service: No Current occupational status: disabled Meds Allergies Allergy/AdvReac Type Severity Reaction Status Date / Time morphine AdvReac Intermediate Hallucinati Verified 02/25/25 08:11 ons Home Medications ?Medication ?Instructions ?Recorded ?Confirmed ?Last Taken ?Type ezetimibe 10 mg tablet 10 mg PO DAILY 01/03/22 02/03/25 02/01/25 History gabapentin 300 mg capsule 300 mg PO TID 01/03/22 02/03/25 02/01/25 History insulin glargine 100 unit/mL 10 unit subcut BID 01/03/22 02/03/25 02/01/25 History subcutaneous solution (Lantus U-100 Insulin) isosorbide mononitrate 30 mg 30 mg PO DAILY 01/03/22 02/03/25 02/01/25 History tablet,extended release 24 hr loratadine 10 mg tablet 10 mg PO DAILY 01/03/22 02/03/25 02/01/25 History losartan 25 mg tablet 25 mg PO DAILY 01/03/22 02/03/25 02/01/25 History meclizine 25 mg tablet 25 mg PO TID PRN Dizziness Or 01/03/22 02/03/25 12/14/24 History Vertigo pantoprazole 40 mg tablet,delayed 40 mg PO BID@0630,1630 01/03/22 02/03/25 02/01/25 History release rosuvastatin 40 mg tablet 40 mg PO BEDTIME 01/03/22 02/03/25 02/01/25 History aspirin 81 mg tablet,delayed 81 mg PO DAILY 08/04/22 02/03/25 02/01/25 History release furosemide 20 mg tablet 20 mg PO DAILY 11/13/22 02/03/25 02/01/25 History venlafaxine 100 mg tablet 100 mg PO BID 11/13/22 02/03/25 02/01/25 History metoprolol succinate 25 mg 25 mg PO DAILY 10/14/24 02/03/25 02/01/25 History tablet,extended release 24 hr insulin lispro 100 unit/mL See Protocol subcut QIDACHS 12/16/24 02/03/25 02/01/25 History subcutaneous solution oxycodone 10 mg tablet 10 mg PO Q4H PRN Pain 12/16/24 02/03/25 12/14/24 History rivaroxaban 20 mg tablet (Xarelto) 20 mg PO DAILY@1700 02/02/03/25 02/01/25 History dapagliflozin propanediol 10 mg 10 mg PO DAILY 02/03/25 02/03/25 02/01/25 History tablet (Farxiga) Physical Exam 2 Vital Signs and Narrative: Vital Signs: Last Vital Signs Temp 98.3 F 02/25/25 08:06 Pulse 91 02/25/25 11:57 Resp 18 02/25/25 11:57 BP 101/67 02/25/25 11:57 Pulse Ox 98 02/25/25 11:57 O2 Del Method Room Air 02/25/25 11:57 BMI result Body Mass Index 35.6 General: AOx3, looks uncomfortable and frail, no acute distress Resp: CTA bilaterally CVS: S1, S2, RRR GI: +BS, no distention, epigastric tenderness Skin: Warm, dry Neuro: Cranial nerves II-XII grossly intact bilaterally. Motor grossly intact bilaterally Extremities: No edema. Left foot s/p first and send digit amputation. Psych: Emotionally labile, tearful Results Labs 02/25/25 08:26 02/25/25 10:49 Labs: Laboratory Results - last 24 hr 02/25/25 02/25/25 02/25/25 08:26 10:45 10:49 MCV 84.9 MCH 29.2 MCHC 34.3 RDW 13.5 Plt Count 362 D MPV 9.6 Immature Gran % (Auto) 0.4 Neut % (Auto) 64.1 Lymph % (Auto) 28.3 [place] % (Auto) 6.5 Eos % (Auto) 0.3 Baso % (Auto) 0.4 Lymph # (Auto) 3.3 [place] # (Auto) 0.8 Eos # (Auto) 0.0 Baso # (Auto) 0.1 Abs Immat Gran (auto) 0.05 H Absolute Neuts (auto) 7.5 Absolute Nucleated RBC 0.000 Nucleated RBC % (auto) 0.0 PT 12.4 INR 1.1 Anion Gap 22 H 18 Estim Creat Clear Calc 113.0 124.1 Estimated GFR > 60 > 60 POC Glucose 296 H Random Glucose 273 H 289 H Calcium 9.7 D 9.1 D Magnesium 2.1 Total Bilirubin 0.8 AST 26 ALT 14 Alkaline Phosphatase 74 Troponin I Hi Sens Base 5.5 Troponin I Hi Sens 2 Hr 6.4 B-Natriuretic Peptide 111 H Total Protein 7.1 Albumin 4.2 Lipase < 4 L Beta-Hydroxybutyrate 2.55 H Urine Color Yellow Urine Appearance Clear Urine pH 6.0 Ur Specific [place] >= 1.030 H Urine Protein 30 (1+) H Urine Glucose (UA) >=1000 H Urine Ketones 80 Urine Blood Negative Urine Nitrite Negative Ur Leukocyte Esterase Negative Urine RBC 0-2 Urine WBC 0-5 Ur Squamous Epith Cells 0-2 Urine Bacteria None Seen Hyaline Casts 0-2 Influenza Type A (PCR) NEGATIVE Influenza Type B (PCR) NEGATIVE RSV RNA Qual (PCR) NEGATIVE SARS-CoV-2 RNA (RT-PCR) NEGATIVE 02/25/25 11:56 MCV MCH MCHC RDW Plt Count MPV Immature Gran % (Auto) Neut % (Auto) Lymph % (Auto) [place] % (Auto) Eos % (Auto) Baso % (Auto) Lymph # (Auto) [place] # (Auto) Eos # (Auto) Baso # (Auto) Abs Immat Gran (auto) Absolute Neuts (auto) Absolute Nucleated RBC Nucleated RBC % (auto) PT INR Anion Gap Estim Creat Clear Calc Estimated GFR POC Glucose 263 H Random Glucose Calcium Magnesium Total Bilirubin AST ALT Alkaline Phosphatase Troponin I Hi Sens Base Troponin I Hi Sens 2 Hr B-Natriuretic Peptide Total Protein Albumin Lipase Beta-Hydroxybutyrate Urine Color Urine Appearance Urine pH Ur Specific [place] Urine Protein Urine Glucose (UA) Urine Ketones Urine Blood Urine Nitrite Ur Leukocyte Esterase Urine RBC Urine WBC Ur Squamous Epith Cells Urine Bacteria Hyaline Casts Influenza Type A (PCR) Influenza Type B (PCR) RSV RNA Qual (PCR) SARS-CoV-2 RNA (RT-PCR) Imaging Radiologist's Impressions: Impressions Abdomen/Pelvis CT 02/25/25 09:22 IMPRESSION: Small hiatal hernia. Collapse of the ascending, descending, and sigmoid colon. It is difficult to exclude wall thickening in these regions. Electronically signed by: Eddie Landaverde MD 02/25/2025 09:39 AM EDT Assessment and Plan (1) Diabetic gastroparesis: Status: Acute (2) Intractable nausea and vomiting: Status: Acute Plan Pt is a 64-year-old male with a PMH significant for?insulin-dependent type 2 diabetes, diabetic gastroparesis, CAD s/p CABG in 2018, paroxysmal AFib on Xarelto, PVD, HTN, hx of osteomyelitis s/p amputation of 1st and 2nd left toes, and peripheral neuropathy who presents to the ED with?abdominal pain and N/V/D x3 days. Pt is admitted to the hospital under observation for treatment and further evaluation of acute on chronic diabetic gastroparesis with intractable N/V/D. Acute on chronic diabetic gastroparesis Pt with intractable N/V/D and epigastric burning abdominal pain x3 days Unable to tolerate p.o. CT showing collapse of ascending, descending, and sigmoid colon, unable to exclude wall thickening Will treat with maintenance fluids, ondansetron, Reglan, capsaicin cream, lidocaine patch, at Protonix Clear liquid diet, advance as tolerated Check stool studies, C diff Insulin-dependent type 2 diabetes with hyperglycemia No DKA: Beta hydroxybutyrate elevated at 2.55, POC 296 Initial anion gap 22 with repeat closed at 18 after IVF and insulin IV Place on sliding scale insulin Continue Lantus Diabetic diet once diet advanced Paroxysmal AFib Continue Xarelto, metoprolol CAD/HLD Continue statin, ezetimibe HTN Continue losartan Mood disorder Continue venlafaxine Full Code Attending:?Dr. Hall DVT Prophylaxis: On Xarelto Pt is admitted to the hospital under observation for treatment and further evaluation of acute on chronic diabetic gastroparesis with intractable N/V/D. Given that pt is not tolerating p.o. at this time, pt will require hospital level care for administration of IV antiemetics, analgesics, and fluids. Quality Stroke Does the patient have a stroke diagnosis?: No VTE Prior VTE?: No VTE Risk Level:: Medical - moderate - high VTE Device Contraindication: Treatment Not Indicated VTE Drug Contraindication: N/A - Med Ordered
--- NOTE | 2025-02-25 13:30 | PC.NURSE ---
Patient needed to defecate, patient provided with gripper socks and escorted to nearest bathroom. No dizziness noted during transfer. Patient walks without assistive device. Patient had large, liquid yellowish stool. Stool sample collected. Patient safely returned to bed and provided with the call bansal
[2025-02-25 14:24] LABS: CDiff Gene PCR NEGATIVE (Negative)
[2025-02-25] MEDS: Lidocaine 4 % Patch ADH..PATCH 1 PATCH TRANSDERMA (14:47)
[2025-02-25 15:02] LABS: Adenovirus F 40/41 Not Detected (Not Detect.); Astrovirus Not Detected (Not Detect.); Campylobacter Not Detected (Not Detect.); Cryptosporidium Not Detected (Not Detect.); Cyclospora cayetanensis Not Detected (Not Detect.); E. coli EAEC Not Detected (Not Detect.); E. coli EPEC Not Detected (Not Detect.); E. coli ETEC Not Detected (Not Detect.); E. coli STEC Not Detected (Not Detect.); Entamoeba histolytica Not Detected (Not Detect.); Giardia lamblia Not Detected (Not Detect.); Norovirus GI/GII Not Detected (Not Detect.); Plesiomonas shigelloides Not Detected (Not Detect.); Rotavirus A Not Detected (Not Detect.); Salmonella Not Detected (Not Detect.); Sapovirus Not Detected (Not Detect.); Shigella sp./EIEC Not Detected (Not Detect.); Vibrio Not Detected (Not Detect.); Vibrio Cholerae Not Detected (Not Detect.); Yersinia enterocolitica Not Detected (Not Detect.)
[2025-02-25] MEDS: Lactated Ringers 1,000 ML 100 ML IVCONT ×2 (15:46→23:14)
[2025-02-25] MEDS: 0.9 % Sodium Chloride Flush 3 ML SYRINGE IVFLUSH ×3 (15:47→20:18)
[2025-02-25 16:00] LABS: Glucose, Whole Blood 264 mg/dL (60-115)
--- NOTE | 2025-02-25 16:02 | PHA.MEDREC ---
Addendum entered by Todd Fairchild [facility] 02/25/25 16:41: Reviewed by [facility] Original Note: Pharmacy Consult ? Medication Reconciliation Pharmacy has completed the medication reconciliation. Spoke with patient who was nauseated while speaking with him but he was able to confirmed he was just recently discharged from here and everything was up to date on that list and able confirm some medications (Lantus: 10 units BID, Insulin Lispro: QIDACHS per sliding scale, Farxiga 10mg tabs once a day, Gabapentin 300mg TID, Meclizine 25mg TID PRN Vertigo/Dizziness, Ondansetron 8mg Q8H PRN nausea or Vomiting, Oxycodone 10mg Q4H Prn Pain and Xarelto 20mg once daily@1700). He stated he has not had any of his medications, including his insulins, in 3 days due to the symptoms the patient is here for.
[2025-02-25] MEDS: Capsaicin 0.025% Cream 60 GM TUBE 1 APPL TOPICAL (16:24)
[2025-02-25 17:34] LABS: Glucose, Whole Blood 275 mg/dL (60-115)
[2025-02-25] MEDS: Insulin Lispro 100 UNIT/ML 3 ML VIAL SUBCUT (17:38)
[2025-02-25] MEDS: Erythromycin Lactobionate 250 MG in 0.9 % Sodium Chloride 100 ML 100 MG IV ×2 (18:22→23:18)
[2025-02-25] MEDS: Rivaroxaban 20 MG TABLET PO (19:58)
[2025-02-25 20:08] LABS: Glucose, Whole Blood 239 mg/dL (60-115)
[2025-02-25] MEDS: Insulin Glargine,Hum.rec.anlog 100 UNIT/ML 10 ML VIAL SUBCUT (20:17)
--- NOTE | 2025-02-25 21:37 | MHC.PIE ---
p; pt c/o pain 08/05, note; prn dilaudid q4 given ar 1820. i; dr celeste notified, ok to give early dose now e; will cont to monitor
[2025-02-26 03:35] VITALS: BP 140/70; PULSE 85; RESP 16; TEMP 36.2; O2SAT 95
[2025-02-26] MEDS: HYDROmorphone HCl 0.5 MG/0.5 ML SYRINGE IVPUSH ×5 (04:20→21:16)
[2025-02-26] MEDS: Metoclopramide HCl 10 MG/2 ML VIAL IVPUSH ×3 (04:24→21:16)
[2025-02-26] MEDS: Pantoprazole Sodium 40 MG/10 ML VIAL IVPUSH ×2 (04:43→15:22)
[2025-02-26 06:02] LABS: Anion Gap 10 (12-20); Blood Urea Nitrogen 11 mg/dL (9-16); Calcium 8.8 mg/dL (8.4-10.2); Carbon Dioxide 24 mmol/L (22-29); Chloride 110 mmol/L (96-108); Creatinine Clr Calc Pharmacy 129.8; Estimated Glomerular Filt Rate > 60; Glucose Random 160 mg/dL (60-115); Potassium 3.6 mmol/L (3.3-5.1); Sodium 140 mmol/L (135-145)
[2025-02-26 07:15] VITALS: BP 160/64; PULSE 73; RESP 16; TEMP 36.6; O2SAT 96
[2025-02-26 07:28] LABS: Glucose, Whole Blood 163 mg/dL (60-115)
--- NOTE | 2025-02-26 07:40 | HO.PM.IMPN ---
Subjective Subjective Date of Service: 02/26/25 Interval History: nausea/vomiting, abd pain Review of Systems abd pain and nausea hesitant to take po Review of Systems: Yes all other systems are reviewed and are negative Physical Exam Vital Signs: Vital Signs: Last Vital Signs Temp 97.8 F 02/26/25 07:15 Pulse 73 02/26/25 07:15 Resp 16 02/26/25 07:15 BP 160/64 H 02/26/25 07:15 Pulse Ox 96 02/26/25 07:15 O2 Del Method Room Air 02/26/25 07:15 BMI result Body Mass Index 35.7 Appearance: Alert.? Oriented X3.? cvs: rrr, [id number] , no murmur res: clear to auscultation ,no rhonchii or wheezing abd:soft,epigastric discomfort, bs present. ext pulses present , no cyanosis . neuro: axo3 , nonfocal. Objective Data Active Medications Acetaminophen (Acetaminophen 325 Mg Tablet) 650 mg PO Q6H PRN PRN Reason: Pain, Mild 1-3,fever,headache Aspirin (Aspirin Enteric Coated 81 Mg Tablet.) 81 mg PO DAILY [facility] Atorvastatin Calcium (Atorvastatin Calcium 80 Mg Tablet) 80 mg PO BEDTIME [facility] Last Admin: 02/25/25 21:23 Dose: Not Given Documented By: EWA Non-Admin Reason: Nausea Calcium Carbonate (Calcium Carbonate 750 Mg Tab.Chew) 750 mg PO Q4H PRN PRN Reason: Heartburn Capsaicin (Capsaicin 0.025% Cream 60 Gm Tube) 1 appl TOPICAL TID [facility]; Protocol Last Admin: 02/25/25 20:25 Dose: Not Given Documented By: EWA Non-Admin Reason: Patient Refused Comments: pt refused, pt reports burning with cream Dextrose (Dextrose 50 % 25 Gm/50 Ml Syringe) 25 gm IVPUSH Q15M PRN; Protocol PRN Reason: per Hypoglycemia Standing Ord. Ezetimibe (Ezetimibe 10 Mg Tablet) 10 mg PO DAILY [facility] Furosemide (Furosemide 20 Mg Tablet) 20 mg PO DAILY [facility]; Protocol Gabapentin (Gabapentin 300 Mg Capsule) 300 mg PO TID [facility] Last Admin: 02/25/25 21:23 Dose: Not Given Documented By: EWA Non-Admin Reason: Nausea Glucose (Glucose Gel 15 Gm Gel..Gram.) 15 gm PO Q15M PRN; Protocol PRN Reason: per Hypoglycemia Standing Ord. Hydromorphone HCl (Hydromorphone Hcl 0.5 Mg/0.5 Ml Syringe) 0.5 mg IVPUSH Q4H PRN; Protocol PRN Reason: Pain, Severe (Pain Scale 7-10) Last Admin: 02/26/25 04:20 Dose: 0.5 mg Documented By: EWA Lactated Ringer's (Lr) 1,000 mls @ 100 mls/hr IVCONT .Q10H [facility] Last Infusion: 02/26/25 00:50 Dose: 100 mls/hr Documented By: EWA Erythromycin Lactobionate 250 (mg/ Sodium Chloride) 100 mls @ 100 mls/hr IV Q8H [facility] Insulin Glargine (Insulin Glargine,Hum.Rec.Anlog 100 Unit/Ml 10 Ml Vial) 5 unit SUBCUT BEDTIME [facility] Last Admin: 02/25/25 20:17 Dose: 5 unit Documented By: EWA Insulin Glargine (Insulin Glargine,Hum.Rec.Anlog 100 Unit/Ml 10 Ml Vial) 5 unit SUBCUT DAILY [facility] Insulin Human Lispro (Insulin Lispro 100 Unit/Ml 3 Ml Vial) 0 unit SUBCUT QIDACHS [facility]; Protocol Last Admin: 02/25/25 20:18 Dose: Not Given Documented By: EWA Non-Admin Reason: Patient Refused Comments: d/t nausea pt only wanted one insulin, lantus given, admelog held Isosorbide Mononitrate (Isosorbide Mononitrate 30 Mg Tab.Er.24h) 30 mg PO DAILY [facility]; Protocol Lidocaine (Lidocaine 4 % Patch Adh..Patch) 1 patch TRANSDERMA DAILY [facility]; Protocol Last Admin: 02/25/25 14:47 Dose: 1 patch Documented By: MAMIE Loratadine (Loratadine 10 Mg Tablet) 10 mg PO DAILY [facility] Losartan Potassium (Losartan Potassium 25 Mg Tablet) 25 mg PO DAILY [facility]; Protocol Magnesium Hydroxide (Milk Of Magnesia 30 Ml Oral.Susp) 30 ml PO DAILY PRN PRN Reason: Constipation Meclizine HCl (Meclizine Hcl 25 Mg Tablet) 25 mg PO TID PRN PRN Reason: Dizziness Or Vertigo Melatonin (Melatonin 3 Mg Tablet) 6 mg PO BEDTIME PRN PRN Reason: Insomnia Metoclopramide HCl (Metoclopramide Hcl 10 Mg/2 Ml Vial) 10 mg IVPUSH Q6H PRN PRN Reason: Nausea and Vomiting Last Admin: 02/26/25 04:24 Dose: 10 mg Documented By: EWA Metoprolol Succinate (Metoprolol Succinate Er 25 Mg Tab.Er.24h) 25 mg PO DAILY [facility]; Protocol Ondansetron HCl (Ondansetron Hcl 4 Mg/2 Ml Vial) 4 mg IVPUSH Q8H PRN PRN Reason: Nausea and Vomiting Last Admin: 02/25/25 20:17 Dose: 4 mg Documented By: EWA Oxycodone HCl (Oxycodone Hcl Immed Release 5 Mg Tablet) 10 mg PO Q4H PRN PRN Reason: Pain, Severe (Pain Scale 7-10) Pantoprazole Sodium (Pantoprazole Sodium 40 Mg/10 Ml Vial) 40 mg IVPUSH BID@0630,1630 [facility] Last Admin: 02/26/25 04:43 Dose: 40 mg Documented By: EWA Rivaroxaban (Rivaroxaban 20 Mg Tablet) 20 mg PO DAILY@1700 [facility] Last Admin: 02/25/25 19:58 Dose: 20 mg Documented By: EWA Sodium Chloride (0.9 % Sodium Chloride Flush 3 Ml Syringe) 3 ml IVFLUSH QSHIFT [facility] Last Admin: 02/25/25 19:58 Dose: 3 ml Documented By: EWA Venlafaxine HCl (Venlafaxine Hcl 25 Mg Tablet) 100 mg PO BID [facility] Last Admin: 02/25/25 21:24 Dose: Not Given Documented By: EWA Non-Admin Reason: Nausea Labs 02/25/25 08:26 02/26/25 05:26 Labs: Laboratory Results - last 24 hr 02/25/25 02/25/25 02/25/25 08:26 10:45 10:49 MCV 84.9 MCH 29.2 MCHC 34.3 RDW 13.5 Plt Count 362 D MPV 9.6 Immature Gran % (Auto) 0.4 Neut % (Auto) 64.1 Lymph % (Auto) 28.3 [place] % (Auto) 6.5 Eos % (Auto) 0.3 Baso % (Auto) 0.4 Lymph # (Auto) 3.3 [place] # (Auto) 0.8 Eos # (Auto) 0.0 Baso # (Auto) 0.1 Abs Immat Gran (auto) 0.05 H Absolute Neuts (auto) 7.5 Absolute Nucleated RBC 0.000 Nucleated RBC % (auto) 0.0 Hold Purple Top PT 12.4 INR 1.1 Anion Gap 22 H 18 Estim Creat Clear Calc 113.0 124.1 Estimated GFR > 60 > 60 POC Glucose 296 H Random Glucose 273 H 289 H Calcium 9.7 D 9.1 D Magnesium 2.1 Total Bilirubin 0.8 AST 26 ALT 14 Alkaline Phosphatase 74 Troponin I Hi Sens Base 5.5 Troponin I Hi Sens 2 Hr 6.4 B-Natriuretic Peptide 111 H Total Protein 7.1 Albumin 4.2 Lipase < 4 L Beta-Hydroxybutyrate 2.55 H Urine Color Yellow Urine Appearance Clear Urine pH 6.0 Ur Specific [place] >= 1.030 H Urine Protein 30 (1+) H Urine Glucose (UA) >=1000 H Urine Ketones 80 Urine Blood Negative Urine Nitrite Negative Ur Leukocyte Esterase Negative Urine RBC 0-2 Urine WBC 0-5 Ur Squamous Epith Cells 0-2 Urine Bacteria None Seen Hyaline Casts 0-2 Stl C. cayetanensis PCR Stool Rotavirus A PCR Stl Adenov F 40/41 PCR Stool Astrovirus (PCR) Stool Campylobacter PCR Stool Cryptosporidium PCR Stl Sh Tox Pr E STEC PCR Stool E coli O157 PCR Stl Enterotoxigenic E PCR Stool EPEC (PCR) Stool EAEC (PCR) Stl E. histolytica PCR Stool Giardia Lamblia PCR Stl P. shigelloides PCR Stool Salmonella PCR Stool Sapovirus (PCR) Stl Shigella/EIEC PCR St Y.enterocolitica PCR Stool Vibrio (PCR) Stl Vibrio cholerae PCR Stl Norovirus GI/GII PCR C. difficile Tox B Gene Influenza Type A (PCR) NEGATIVE Influenza Type B (PCR) NEGATIVE RSV RNA Qual (PCR) NEGATIVE SARS-CoV-2 RNA (RT-PCR) NEGATIVE 02/25/25 02/25/25 02/25/25 11:56 13:24 15:56 MCV MCH MCHC RDW Plt Count MPV Immature Gran % (Auto) Neut % (Auto) Lymph % (Auto) [place] % (Auto) Eos % (Auto) Baso % (Auto) Lymph # (Auto) [place] # (Auto) Eos # (Auto) Baso # (Auto) Abs Immat Gran (auto) Absolute Neuts (auto) Absolute Nucleated RBC Nucleated RBC % (auto) Hold Purple Top PT INR Anion Gap Estim Creat Clear Calc Estimated GFR POC Glucose 263 H 264 H Random Glucose Calcium Magnesium Total Bilirubin AST ALT Alkaline Phosphatase Troponin I Hi Sens Base Troponin I Hi Sens 2 Hr B-Natriuretic Peptide Total Protein Albumin Lipase Beta-Hydroxybutyrate Urine Color Urine Appearance Urine pH Ur Specific [place] Urine Protein Urine Glucose (UA) Urine Ketones Urine Blood Urine Nitrite Ur Leukocyte Esterase Urine RBC Urine WBC Ur Squamous Epith Cells Urine Bacteria Hyaline Casts Stl C. cayetanensis PCR Not Detected Stool Rotavirus A PCR Not Detected Stl Adenov F 40/41 PCR Not Detected Stool Astrovirus (PCR) Not Detected Stool Campylobacter PCR Not Detected Stool Cryptosporidium PCR Not Detected Stl Sh Tox Pr E STEC PCR Not Detected Stool E coli O157 PCR Not applicable Stl Enterotoxigenic E PCR Not Detected Stool EPEC (PCR) Not Detected Stool EAEC (PCR) Not Detected Stl E. histolytica PCR Not Detected Stool Giardia Lamblia PCR Not Detected Stl P. shigelloides PCR Not Detected Stool Salmonella PCR Not Detected Stool Sapovirus (PCR) Not Detected Stl Shigella/EIEC PCR Not Detected St Y.enterocolitica PCR Not Detected Stool Vibrio (PCR) Not Detected Stl Vibrio cholerae PCR Not Detected Stl Norovirus GI/GII PCR Not Detected C. difficile Tox B Gene NEGATIVE Influenza Type A (PCR) Influenza Type B (PCR) RSV RNA Qual (PCR) SARS-CoV-2 RNA (RT-PCR) 02/25/25 02/25/25 02/26/25 17:23 20:04 05:26 MCV MCH MCHC RDW Plt Count MPV Immature Gran % (Auto) Neut % (Auto) Lymph % (Auto) [place] % (Auto) Eos % (Auto) Baso % (Auto) Lymph # (Auto) [place] # (Auto) Eos # (Auto) Baso # (Auto) Abs Immat Gran (auto) Absolute Neuts (auto) Absolute Nucleated RBC Nucleated RBC % (auto) Hold Purple Top SEE NOTE PT INR Anion Gap 10 L Estim Creat Clear Calc 129.8 Estimated GFR > 60 POC Glucose 275 H 239 H Random Glucose 160 H Calcium 8.8 Magnesium Total Bilirubin AST ALT Alkaline Phosphatase Troponin I Hi Sens Base Troponin I Hi Sens 2 Hr B-Natriuretic Peptide Total Protein Albumin Lipase Beta-Hydroxybutyrate Urine Color Urine Appearance Urine pH Ur Specific [place] Urine Protein Urine Glucose (UA) Urine Ketones Urine Blood Urine Nitrite Ur Leukocyte Esterase Urine RBC Urine WBC Ur Squamous Epith Cells Urine Bacteria Hyaline Casts Stl C. cayetanensis PCR Stool Rotavirus A PCR Stl Adenov F PCR Stool Astrovirus (PCR) Stool Campylobacter PCR Stool Cryptosporidium PCR Stl Sh Tox Pr E STEC PCR Stool E coli O157 PCR Stl Enterotoxigenic E PCR Stool EPEC (PCR) Stool EAEC (PCR) Stl E. histolytica PCR Stool Giardia Lamblia PCR Stl P. shigelloides PCR Stool Salmonella PCR Stool Sapovirus (PCR) Stl Shigella/EIEC PCR St Y.enterocolitica PCR Stool Vibrio (PCR) Stl Vibrio cholerae PCR Stl Norovirus GI/GII PCR C. difficile Tox B Gene Influenza Type A (PCR) Influenza Type B (PCR) RSV RNA Qual (PCR) SARS-CoV-2 RNA (RT-PCR) 02/26/25 07:19 MCV MCH MCHC RDW Plt Count MPV Immature Gran % (Auto) Neut % (Auto) Lymph % (Auto) [place] % (Auto) Eos % (Auto) Baso % (Auto) Lymph # (Auto) [place] # (Auto) Eos # (Auto) Baso # (Auto) Abs Immat Gran (auto) Absolute Neuts (auto) Absolute Nucleated RBC Nucleated RBC % (auto) Hold Purple Top PT INR Anion Gap Estim Creat Clear Calc Estimated GFR POC Glucose 163 H Random Glucose Calcium Magnesium Total Bilirubin AST ALT Alkaline Phosphatase Troponin I Hi Sens Base Troponin I Hi Sens 2 Hr B-Natriuretic Peptide Total Protein Albumin Lipase Beta-Hydroxybutyrate Urine Color Urine Appearance Urine pH Ur Specific [place] Urine Protein Urine Glucose (UA) Urine Ketones Urine Blood Urine Nitrite Ur Leukocyte Esterase Urine RBC Urine WBC Ur Squamous Epith Cells Urine Bacteria Hyaline Casts Stl C. cayetanensis PCR Stool Rotavirus A PCR Stl Adenov PCR Stool Astrovirus (PCR) Stool Campylobacter PCR Stool Cryptosporidium PCR Stl Sh Tox Pr E STEC PCR Stool E coli O157 PCR Stl Enterotoxigenic E PCR Stool EPEC (PCR) Stool EAEC (PCR) Stl E. histolytica PCR Stool Giardia Lamblia PCR Stl P. shigelloides PCR Stool Salmonella PCR Stool Sapovirus (PCR) Stl Shigella/EIEC PCR St Y.enterocolitica PCR Stool Vibrio (PCR) Stl Vibrio cholerae PCR Stl Norovirus GI/GII PCR C. difficile Tox B Gene Influenza Type A (PCR) Influenza Type B (PCR) RSV RNA Qual (PCR) SARS-CoV-2 RNA (RT-PCR) Assessment and Plan (1) Diabetic gastroparesis: Status: Acute (2) Abdominal pain: Status: Acute (3) Intractable nausea and vomiting: Status: Acute Assessment and Plan: 64-year-old male with a PMH significant for?insulin-dependent type 2 diabetes, diabetic gastroparesis, CAD s/p CABG in 2018, paroxysmal AFib on Xarelto, PVD, HTN, hx of osteomyelitis s/p amputation of 1st and 2nd left toes, and peripheral neuropathy who presents to the ED with?abdominal pain and N/V/D x3 days. Pt is admitted to the hospital under observation for treatment and further evaluation of acute on chronic diabetic gastroparesis with intractable N/V/D. Acute on chronic diabetic gastroparesis Pt with intractable N/V/D and epigastric burning abdominal pain x3 days Unable to tolerate p.o. Check stool studies, C diff-negative. CT showing collapse of ascending, descending, and sigmoid colon, unable to exclude wall thickening continue maintenance fluids, ondansetron, Reglan, capsaicin cream, lidocaine patch, at Protonix Clear liquid diet, advance as tolerated Gi eval Insulin-dependent type 2 diabetes with hyperglycemia No DKA: Beta hydroxybutyrate elevated at 2.55, POC 296 s/p ivf plan: Place on sliding scale insulin,Continue Lantus Diabetic diet once diet advanced Paroxysmal AFib Continue Xarelto, metoprolol CAD/HLD Continue statin, ezetimibe HTN Continue losartan Mood disorder Continue venlafaxine Full Code DVT Prophylaxis: On Xarelto Ongoing need of stay:for the treatment and further evaluation of acute on chronic diabetic gastroparesis with intractable N/V/D. Given that pt is not tolerating p.o. at this time, pt will require hospital level care for administration of IV antiemetics, analgesics, and fluids. Quality Stroke Does the patient have a stroke diagnosis?: No VTE Prior VTE?: No VTE Risk Level:: Medical - moderate - high VTE Device Contraindication: Treatment Not Indicated VTE Drug Contraindication: N/A - Med Ordered
[2025-02-26] MEDS: Lidocaine 4 % Patch ADH..PATCH 1 PATCH TRANSDERMA (07:55)
[2025-02-26] MEDS: Insulin Glargine,Hum.rec.anlog 100 UNIT/ML 10 ML VIAL SUBCUT (07:56)
[2025-02-26] MEDS: 0.9 % Sodium Chloride Flush 3 ML SYRINGE IVFLUSH ×3 (07:58→21:39)
[2025-02-26] MEDS: ondansetron HCL 4 MG/2 ML VIAL IVPUSH ×2 (09:01→16:31)
[2025-02-26] MEDS: Erythromycin Lactobionate 250 MG in 0.9 % Sodium Chloride 100 ML 100 MG IV ×3 (09:19→23:59)
--- NOTE | 2025-02-26 10:59 | PC.NURSE ---
MD Hall made aware pt refusing scheduled AM PO medication, due to nausea. Pt given PRN Zofran and reassessed for PO administration, pt continues to refuse and offered Reglan, effectiveness pending.
[2025-02-26 11:06] LABS: Glucose, Whole Blood 165 mg/dL (60-115)
--- NOTE | 2025-02-26 11:50 | PC.NURSE ---
Encouraged pt 2x this morning to get OOB and ambulate in hallway/room and get OOB to chair, Pt refusing at this time states 'I will later . Pt educated on importance of ambulation and movement to bartender helper with digestion, pt states he understands. PRN pain medication and nausea medication given with good effect.
--- NOTE | 2025-02-26 15:00 | MHC.CM.PN ---
Addendum entered by Pema Andrews 02/26/25 15:04: PCP Trent Bird Original Note: TIMOTHY 02/26/25 DX Hypoglycemia Pt lives with Uses a cane but independent with adls DME Cane DM supplies No services in place. [facility] self care will provide transportation home.
[2025-02-26 15:15] VITALS: BP 154/69; PULSE 78; RESP 16; TEMP 36.4; O2SAT 95
[2025-02-26] MEDS: Gabapentin 300 MG CAPSULE PO ×2 (15:22→21:20)
[2025-02-26] MEDS: Lactated Ringers 1,000 ML 100 ML IVCONT ×2 (15:30→23:56)
[2025-02-26 16:07] LABS: Glucose, Whole Blood 172 mg/dL (60-115)
[2025-02-26] MEDS: Rivaroxaban 20 MG TABLET PO (16:31)
[2025-02-26 19:18] VITALS: BP 165/76; PULSE 81; RESP 18; TEMP 36.7; O2SAT 97
[2025-02-26 19:36] LABS: Glucose, Whole Blood 178 mg/dL (60-115)
[2025-02-26] MEDS: Venlafaxine HCL 25 MG TABLET 100 MG PO (21:21)
--- NOTE | 2025-02-27 | ECG_ITS ---
Test Reason : medication Blood Pressure : */* mmHG Vent. Rate : 77 BPM Atrial Rate : 77 BPM P-R Int : 194 ms QRS Dur : 92 ms QT Int : 418 ms P-R-T Axes : 46 -5 97 degrees QTcB Int : 473 ms Sinus rhythm with frequent Premature ventricular complexes Nonspecific T wave abnormality Abnormal ECG When compared with ECG of 25-Feb-2025 08:09, Premature ventricular complexes are now Present Nonspecific T wave abnormality, worse in Anterolateral leads Referred By: Roni Hall Electronically Signed By: SID ORTIZ
[2025-02-27] MEDS: HYDROmorphone HCl 0.5 MG/0.5 ML SYRINGE IVPUSH ×5 (01:48→20:49)
[2025-02-27 03:43] VITALS: BP 146/67; PULSE 68; RESP 18; TEMP 36.4; O2SAT 96
[2025-02-27] MEDS: Pantoprazole Sodium 40 MG/10 ML VIAL IVPUSH ×2 (05:51→16:14)
[2025-02-27] MEDS: ondansetron HCL 4 MG/2 ML VIAL IVPUSH ×2 (05:51→16:14)
[2025-02-27 07:22] VITALS: BP 136/76; PULSE 80; RESP 16; TEMP 36.6; O2SAT 97
[2025-02-27 07:38] LABS: Glucose, Whole Blood 152 mg/dL (60-115)
[2025-02-27] MEDS: Metoprolol Succinate ER 25 MG TAB.ER.24H PO (08:07)
[2025-02-27] MEDS: Gabapentin 300 MG CAPSULE PO ×3 (08:07→20:47)
[2025-02-27] MEDS: 0.9 % Sodium Chloride Flush 3 ML SYRINGE IVFLUSH ×2 (08:07→20:51)
[2025-02-27] MEDS: Metoclopramide HCl 10 MG/2 ML VIAL IVPUSH ×2 (08:07→20:49)
[2025-02-27] MEDS: Furosemide 20 MG TABLET PO (08:07)
[2025-02-27] MEDS: Ezetimibe 10 MG TABLET PO (09:48)
[2025-02-27] MEDS: Isosorbide Mononitrate 30 MG TAB.ER.24H PO (09:48)
[2025-02-27] MEDS: Aspirin Enteric Coated 81 MG TABLET.DR PO (09:48)
[2025-02-27] MEDS: Losartan Potassium 25 MG TABLET PO (09:48)
[2025-02-27] MEDS: Erythromycin Lactobionate 250 MG in 0.9 % Sodium Chloride 100 ML 100 MG IV ×2 (09:49→17:20)
[2025-02-27] MEDS: Lidocaine 4 % Patch ADH..PATCH 1 PATCH TRANSDERMA (09:56)
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
[2025-02-27 11:08] LABS: Glucose, Whole Blood 173 mg/dL (60-115)
[2025-02-27] MEDS: Lactated Ringers 1,000 ML 100 ML IVCONT ×2 (12:07→20:51)
--- NOTE | 2025-02-27 12:26 | P.PNIM_ITS ---
Subjective Subjective Date of Service: 02/27/25 Interval History: possible gasteroparesis Review of Systems vomiting imporved,abdominal pain improving ,has nausea. Review of Systems: Yes all other systems are reviewed and are negative Physical Exam 2 Vital Signs: Vital Signs: Last Vital Signs Temp 97.9 F 02/27/25 07:22 Pulse 80 02/27/25 07:22 Resp 16 02/27/25 07:22 BP 136/76 02/27/25 07:22 Pulse Ox 97 02/27/25 07:22 O2 Del Method Room Air 02/27/25 07:22 BMI result Body Mass Index 35.7 Appearance: Alert.? Oriented X3.? cvs: rrr, [id number] . res: clear to auscultation ,no rhonchii or wheezing abd:soft,epigastric discomfort, bs present. ext pulses present , no cyanosis . neuro: axo3 , nonfocal. Objective Data Active Medications Acetaminophen (Acetaminophen 325 Mg Tablet) 650 mg PO Q6H PRN PRN Reason: Pain, Mild 1-3,fever,headache Aspirin (Aspirin Enteric Coated 81 Mg Tablet.) 81 mg PO DAILY [facility] Last Admin: 02/27/25 09:48 Dose: 81 mg Documented By: JOSE DAVID Atorvastatin Calcium (Atorvastatin Calcium 80 Mg Tablet) 80 mg PO BEDTIME [facility] Last Admin: 02/26/25 21:24 Dose: Not Given Documented By: EWA Non-Admin Reason: Patient Refused Calcium Carbonate (Calcium Carbonate 750 Mg Tab.Chew) 750 mg PO Q4H PRN PRN Reason: Heartburn Capsaicin (Capsaicin 0.025% Cream 60 Gm Tube) 1 appl TOPICAL TID [facility]; Protocol Last Admin: 02/27/25 08:13 Dose: Not Given Documented By: JOSE DAVID Non-Admin Reason: Patient Refused Dextrose (Dextrose 50 % 25 Gm/50 Ml Syringe) 25 gm IVPUSH Q15M PRN; Protocol PRN Reason: per Hypoglycemia Standing Ord. Ezetimibe (Ezetimibe 10 Mg Tablet) 10 mg PO DAILY [facility] Last Admin: 02/27/25 09:48 Dose: 10 mg Documented By: JOSE DAVID Furosemide (Furosemide 20 Mg Tablet) 20 mg PO DAILY [facility]; Protocol Last Admin: 02/27/25 08:07 Dose: 20 mg Documented By: JOSE DAVID Gabapentin (Gabapentin 300 Mg Capsule) 300 mg PO TID [facility] Last Admin: 02/27/25 08:07 Dose: 300 mg Documented By: JOSE DAVID Glucose (Glucose Gel 15 Gm Gel..Gram.) 15 gm PO Q15M PRN; Protocol PRN Reason: per Hypoglycemia Standing Ord. Hydromorphone HCl (Hydromorphone Hcl 0.5 Mg/0.5 Ml Syringe) 0.5 mg IVPUSH Q4H PRN; Protocol PRN Reason: Pain, Severe (Pain Scale 7-10) Last Admin: 02/27/25 12:07 Dose: 0.5 mg Documented By: JOSE DAVID Lactated Ringer's (Lr) 1,000 mls @ 100 mls/hr IVCONT .Q10H [facility] Last Admin: 02/27/25 12:07 Dose: 100 mls/hr Documented By: JOSE DAVID Erythromycin Lactobionate 250 (mg/ Sodium Chloride) 100 mls @ 100 mls/hr IV Q8H [facility] Last Infusion: 02/27/25 11:09 Dose: Infused Documented By: JOSE DAVID Insulin Glargine (Insulin Glargine,Hum.Rec.Anlog 100 Unit/Ml 10 Ml Vial) 5 unit SUBCUT BEDTIME [facility] Last Admin: 02/26/25 07:56 Dose: 5 unit Documented By: JOSE DAVID Insulin Glargine (Insulin Glargine,Hum.Rec.Anlog 100 Unit/Ml 10 Ml Vial) 5 unit SUBCUT DAILY [facility] Last Admin: 02/26/25 10:11 Dose: Not Given Documented By: JOSE DAVID Non-Admin Reason: Patient Refused Insulin Human Lispro (Insulin Lispro 100 Unit/Ml 3 Ml Vial) 0 unit SUBCUT QIDACHS [facility]; Protocol Last Admin: 02/27/25 12:12 Dose: Not Given Documented By: JOSE DAVID Non-Admin Reason: poor PO intake Isosorbide Mononitrate (Isosorbide Mononitrate 30 Mg Tab.Er.24h) 30 mg PO DAILY [facility]; Protocol Last Admin: 02/27/25 09:48 Dose: 30 mg Documented By: JOSE DAVID Lidocaine (Lidocaine 4 % Patch Adh..Patch) 1 patch TRANSDERMA DAILY [facility]; Protocol Last Admin: 02/27/25 09:56 Dose: 1 patch Documented By: JOSE DAVID Loratadine (Loratadine 10 Mg Tablet) 10 mg PO DAILY [facility] Last Admin: 02/27/25 08:14 Dose: Not Given Documented By: JOSE DAVID Non-Admin Reason: Patient Refused Losartan Potassium (Losartan Potassium 25 Mg Tablet) 25 mg PO DAILY [facility]; Protocol Last Admin: 02/27/25 09:48 Dose: 25 mg Documented By: JOSE DAVID Magnesium Hydroxide (Milk Of Magnesia 30 Ml Oral.Susp) 30 ml PO DAILY PRN PRN Reason: Constipation Meclizine HCl (Meclizine Hcl 25 Mg Tablet) 25 mg PO TID PRN PRN Reason: Dizziness Or Vertigo Melatonin (Melatonin 3 Mg Tablet) 6 mg PO BEDTIME PRN PRN Reason: Insomnia Metoclopramide HCl (Metoclopramide Hcl 10 Mg/2 Ml Vial) 10 mg IVPUSH Q6H PRN PRN Reason: Nausea and Vomiting Last Admin: 02/27/25 08:07 Dose: 10 mg Documented By: JOSE DAVID Metoprolol Succinate (Metoprolol Succinate Er 25 Mg Tab.Er.24h) 25 mg PO DAILY [facility]; Protocol Last Admin: 02/27/25 08:07 Dose: 25 mg Documented By: JOSE DAVID Ondansetron HCl (Ondansetron Hcl 4 Mg/2 Ml Vial) 4 mg IVPUSH Q8H PRN PRN Reason: Nausea and Vomiting Last Admin: 02/27/25 05:51 Dose: 4 mg Documented By: EWA Oxycodone HCl (Oxycodone Hcl Immed Release 5 Mg Tablet) 10 mg PO Q4H PRN PRN Reason: Pain, Severe (Pain Scale 7-10) Pantoprazole Sodium (Pantoprazole Sodium 40 Mg/10 Ml Vial) 40 mg IVPUSH BID@0630,1630 [facility] Last Admin: 02/27/25 05:51 Dose: 40 mg Documented By: EWA Rivaroxaban (Rivaroxaban 20 Mg Tablet) 20 mg PO DAILY@1700 [facility] Last Admin: 02/26/25 16:31 Dose: 20 mg Documented By: JOSE DAVID Sodium Chloride (0.9 % Sodium Chloride Flush 3 Ml Syringe) 3 ml IVFLUSH QSHIFT [facility] Last Admin: 02/27/25 08:07 Dose: 3 ml Documented By: JOSE DAVID Venlafaxine HCl (Venlafaxine Hcl 25 Mg Tablet) 100 mg PO BID [facility] Last Admin: 02/27/25 09:57 Dose: Not Given Documented By: JOSE DAVID Non-Admin Reason: Patient Refused Labs 02/25/25 08:26 02/26/25 05:26 Labs: Laboratory Results - last 24 hr 02/26/25 02/26/25 02/27/25 16:02 19:33 07:25 POC Glucose 172 H 178 H 152 H 02/27/25 11:04 POC Glucose 173 H Assessment and Plan (1) Diabetic gastroparesis: Status: Acute (2) Abdominal pain: Status: Acute (3) Intractable nausea and vomiting: Status: Acute Assessment and Plan: 64-year-old male with a PMH significant for?insulin-dependent type 2 diabetes, diabetic gastroparesis, CAD s/p CABG in 2018, paroxysmal AFib on Xarelto, PVD, HTN, hx of osteomyelitis s/p amputation of 1st and 2nd left toes, and peripheral neuropathy who presents to the ED with?abdominal pain and N/V/D x3 days. Pt is admitted to the hospital under observation for treatment and further evaluation of acute on chronic diabetic gastroparesis with intractable N/V/D. Acute on chronic diabetic gastroparesis Pt with intractable N/V/D and epigastric burning abdominal pain x3 days Unable to tolerate p.o. Check stool studies, C diff-negative. CT showing collapse of ascending, descending, and sigmoid colon, unable to exclude wall thickening continue maintenance fluids, ondansetron, Reglan, capsaicin cream, lidocaine patch, at Protonix Clear liquid diet, advance as tolerated Gi eval Insulin-dependent type 2 diabetes with hyperglycemia No DKA: Beta hydroxybutyrate elevated at 2.55, POC 296 s/p ivf plan: Place on sliding scale insulin,Continue Lantus Diabetic diet once diet advanced Paroxysmal AFib Continue Xarelto, metoprolol CAD/HLD Continue statin, ezetimibe HTN Continue losartan Mood disorder/sad /depressed Continue venlafaxine will check ekg to check qtc if allows will add small dose remerone. Full Code DVT Prophylaxis: On Xarelto Ongoing need of stay:for the treatment and further evaluation of acute on chronic diabetic gastroparesis with intractable N/V/D. Given that pt is not tolerating p.o. at this time, pt will require hospital level care for administration of IV antiemetics, analgesics, and fluids. Quality Stroke Does the patient have a stroke diagnosis?: No VTE Prior VTE?: No VTE Risk Level:: Medical - moderate - high VTE Device Contraindication: Treatment Not Indicated VTE Drug Contraindication: N/A - Med Ordered
[2025-02-27 15:06] VITALS: BP 130/61; PULSE 65; RESP 16; TEMP 36.3; O2SAT 97
[2025-02-27 16:27] LABS: Glucose, Whole Blood 151 mg/dL (60-115)
--- NOTE | 2025-02-27 17:05 | P.EN_ITS ---
Event Note Date of Service: 02/27/25 Event Note: GI Consult-Hx via patient, , and EMR Imp: 64 yo with IDDM and presumed diabetic gastroparesis presenting with N/V/diarrhea x 3 days. This is his 4th admission since 09/2024 and has been seen by [facility] on the 3 previous occasions. Denies bleeding. Apparently did not have DKA on this admission. Presently feeling better and tolerating liquids today. He describes a previous nuclear med gastric emptying study and EGD >> 10 years ago, but nothing recently. He is on a PPI at home.Denies ill contacts, travel, or suspicious food intake. Diff dx: Gastroparesis and/or viral gastroenteritis Rec: Advance diet in AM. I placed the orders as he is hoping to be discharged some time tomorrow, 02/28, due to 3 other doctor appointments through [facility] later this week. Continue his PPI. I told him to F/U with [facility] for a nuclear med GES and possible EGD. He and his understood and were comfortable with this plan. Thanks Time Spent With Patient Time: Total time managing care of this patient today ____ minutes.
[2025-02-27] MEDS: Rivaroxaban 20 MG TABLET PO (17:21)
[2025-02-27 19:25] VITALS: BP 137/61; PULSE 76; RESP 16; TEMP 36.8; O2SAT 96
[2025-02-27 19:57] LABS: Glucose, Whole Blood 139 mg/dL (60-115)
[2025-02-27] MEDS: Venlafaxine HCL 25 MG TABLET 50 MG PO (20:47)
[2025-02-27] MEDS: Mirtazapine 7.5 MG TABLET PO (20:47)
--- NOTE | 2025-02-28 | ECG_ITS ---
Test Reason : Qtc check Blood Pressure : */* mmHG Vent. Rate : 72 BPM Atrial Rate : 72 BPM P-R Int : 188 ms QRS Dur : 90 ms QT Int : 420 ms P-R-T Axes : 43 -15 32 degrees QTcB Int : 460 ms Sinus rhythm with occasional Premature ventricular complexes Nonspecific ST and T wave abnormality Inferior infarct , age undetermined Abnormal ECG When compared with ECG of 28-Feb-2025 11:17, Premature ventricular complexes are now Present Referred By: Roni Hall Electronically Signed By: SID ORTIZ
--- NOTE | 2025-02-28 | ECG_ITS ---
Test Reason : qtc prolonged Blood Pressure : */* mmHG Vent. Rate : 78 BPM Atrial Rate : 78 BPM P-R Int : 190 ms QRS Dur : 86 ms QT Int : 422 ms P-R-T Axes : 44 -16 34 degrees QTcB Int : 481 ms Normal sinus rhythm Low voltage QRS Inferior infarct (cited on or before 28-Feb-2025) Abnormal ECG When compared with ECG of 28-Feb-2025 11:17, Premature ventricular complexes are no longer Present Referred By: Roni Hall Electronically Signed By: SID ORTIZ
[2025-02-28] MEDS: HYDROmorphone HCl 0.5 MG/0.5 ML SYRINGE IVPUSH ×3 (00:52→10:35)
--- NOTE | 2025-02-28 02:13 | CONS_ITS ---
DATE OF SERVICE: 02/27/2025 REASON FOR CONSULTATION: Nausea, vomiting, and diarrhea. HISTORY OF PRESENT ILLNESS: The patient is a 64-year-old male with underlying insulin-dependent diabetes mellitus, who was admitted with the 3-day history of nausea, vomiting, and diarrhea. He has had 3 previous admissions for similar complaints over the past 6 months, for which he has been seen by [facility] on each occasion. He does describe a distant history of a nuclear medicine gastric emptying study and upper endoscopy with the presumed diagnosis of gastroparesis, although he has not had any recent studies in that regard. On this most recent occasion had been feeling well up until the past 3 days. He did not have any travel, ill contacts, nor suspicious food intake. There was no sign of any GI bleeding. Due to persistent symptoms, he came to the ER. He was not felt to be in DKA at this time. Since admission here, he has been receiving supportive care and does feel better. He has been tolerating a liquid diet today. He does advise me that he has an appointment with his md allergy immunology this Friday, director of convention services this Friday, and a surgeon for hernia evaluation on Friday. Therefore, he would like to be discharged by tomorrow if possible. He presently denies any abdominal pain. He does not smoke, use any significant amounts of alcohol. Nor use any chronic NSAIDs. MEDICATIONS: Include 81 mg aspirin, atorvastatin, Zetia, Lasix, gabapentin, Dilaudid p.r.n., insulin, isosorbide, lidocaine patch, loratadine, losartan, meclizine p.r.n., melatonin, Reglan p.r.n., metoprolol, Zofran p.r.n., oxycodone p.r.n., IV Protonix, Xarelto, and Effexor. PAST MEDICAL HISTORY: Insulin-dependent diabetes mellitus, coronary artery disease with previous bypass. He describes previous [place] as well. Depression. Presumed diabetic gastroparesis. History of cellulitis. Osteomyelitis. He has had left foot surgery with 2 toes amputated. Other surgeries include bilateral hip surgery, cholecystectomy, neck surgery. He denies any history of stroke, lung disease, nor any known renal disease. SOCIAL HISTORY: He is . He does not smoke nor use any alcohol. He smokes marijuana occasionally, but not on a regular basis. FAMILY HISTORY: Noncontributory. REVIEW OF SYSTEMS: CONSTITUTIONAL: He has been feeling fairly well up in the past 3 days. He has been eating comfortably up until the past 3 days. CARDIAC: He denies any chest pain. PULMONARY: No coughing or hemoptysis. GI: As above. URINARY: No dysuria, hematuria. PHYSICAL EXAMINATION: GENERAL: The patient is a pleasant, alert, comfortable male. SKIN: Warm and dry. HEENT: Anicteric sclerae. Moist mucous membranes. NECK: Supple. CHEST: Clear. CARDIAC: Normal S1, S2. ABDOMEN: Soft, nondistended, nontender without palpable mass. LABORATORY DATA: White blood cell count 11.7, hemoglobin 14.7, platelets 262,000. PT 12.4, INR 1.1. Normal electrolytes, BUN 11, creatinine 0.7. Stool GI panel was negative. Stool for C difficile was negative. He had a CT scan of the abdomen and pelvis that was negative for any sign of bowel obstruction nor any other particular GI pathology. IMPRESSION: Given the patient's underlying history, he may very well have a component of diabetic induced gastroparesis. This may be intermittently worsened during times of hyperglycemia, although his blood sugars were not particularly elevated on this admission. He may have had a superimposed viral gastroenteritis given some associated diarrhea on this occasion as well. In any event, he appears to be improving and tolerating liquids at the present time. His abdominal exam is benign. At this point since he is improving and wants to try to leave by tomorrow so we can make his other medical appointments, I would recommend advancing his diet tomorrow. He will continue on his PPI. I did advise him that he should make an appointment for GI followup such that we could obtain a new gastric emptying study for more up to date information. He may require an upper endoscopy at some point as well. I do not think he needs these studies done as an inpatient as long as things continue to improve as they are. This has been discussed with the patient and his in detail. They are comfortable with that plan. Thanks for the consultation. MD JHONY Alcantara/LIZANDRO / [phone]
[2025-02-28] MEDS: ondansetron HCL 4 MG/2 ML VIAL IVPUSH (03:25)
[2025-02-28] MEDS: Pantoprazole Sodium 40 MG/10 ML VIAL IVPUSH (04:45)
[2025-02-28] MEDS: Lactated Ringers 1,000 ML 100 ML IVCONT (04:47)
[2025-02-28 07:20] VITALS: BP 122/66; PULSE 79; RESP 16; TEMP 36.4; O2SAT 97
[2025-02-28 07:25] LABS: Glucose, Whole Blood 142 mg/dL (60-115)
--- NOTE | 2025-02-28 07:34 | P.PNIM_ITS ---
Subjective Subjective Date of Service: 02/28/25 Review of Systems Review of Systems: Yes all other systems are reviewed and are negative Physical Exam 2 Vital Signs: Vital Signs: Last Vital Signs Temp 97.5 F 02/28/25 07:20 Pulse 79 02/28/25 07:20 Resp 16 02/28/25 07:20 BP 122/66 02/28/25 07:20 Pulse Ox 97 02/28/25 07:20 O2 Del Method Room Air 02/28/25 07:20 BMI result Body Mass Index 35.7 Objective Data Active Medications Acetaminophen (Acetaminophen 325 Mg Tablet) 650 mg PO Q6H PRN PRN Reason: Pain, Mild 1-3,fever,headache Aspirin (Aspirin Enteric Coated 81 Mg Tablet.) 81 mg PO DAILY [facility] Last Admin: 02/27/25 09:48 Dose: 81 mg Documented By: JOSE DAVID Atorvastatin Calcium (Atorvastatin Calcium 80 Mg Tablet) 80 mg PO BEDTIME [facility] Last Admin: 02/27/25 20:48 Dose: Not Given Documented By: EWA Non-Admin Reason: Patient Refused Calcium Carbonate (Calcium Carbonate 750 Mg Tab.Chew) 750 mg PO Q4H PRN PRN Reason: Heartburn Capsaicin (Capsaicin 0.025% Cream 60 Gm Tube) 1 appl TOPICAL TID [facility]; Protocol Last Admin: 02/27/25 20:48 Dose: Not Given Documented By: EWA Non-Admin Reason: Patient Refused Dextrose (Dextrose 50 % 25 Gm/50 Ml Syringe) 25 gm IVPUSH Q15M PRN; Protocol PRN Reason: per Hypoglycemia Standing Ord. Ezetimibe (Ezetimibe 10 Mg Tablet) 10 mg PO DAILY [facility] Last Admin: 02/27/25 09:48 Dose: 10 mg Documented By: JOSE DAVID Furosemide (Furosemide 20 Mg Tablet) 20 mg PO DAILY [facility]; Protocol Last Admin: 02/27/25 08:07 Dose: 20 mg Documented By: JOSE DAVID Gabapentin (Gabapentin 300 Mg Capsule) 300 mg PO TID [facility] Last Admin: 02/27/25 20:47 Dose: 300 mg Documented By: EWA Glucose (Glucose Gel 15 Gm Gel..Gram.) 15 gm PO Q15M PRN; Protocol PRN Reason: per Hypoglycemia Standing Ord. Hydromorphone HCl (Hydromorphone Hcl 0.5 Mg/0.5 Ml Syringe) 0.5 mg IVPUSH Q4H PRN; Protocol PRN Reason: Pain, Severe (Pain Scale 7-10) Last Admin: 02/28/25 04:46 Dose: 0.5 mg Documented By: EWA Lactated Ringer's (Lr) 1,000 mls @ 100 mls/hr IVCONT .Q10H [facility] Last Admin: 02/28/25 04:47 Dose: 100 mls/hr Documented By: EWA Insulin Glargine (Insulin Glargine,Hum.Rec.Anlog 100 Unit/Ml 10 Ml Vial) 5 unit SUBCUT BEDTIME [facility] Last Admin: 02/27/25 20:49 Dose: Not Given Documented By: EWA Non-Admin Reason: See Note Comments: refused, pt not eating Insulin Glargine (Insulin Glargine,Hum.Rec.Anlog 100 Unit/Ml 10 Ml Vial) 5 unit SUBCUT DAILY [facility] Last Admin: 02/26/25 10:11 Dose: Not Given Documented By: JOSE DAVID Non-Admin Reason: Patient Refused Insulin Human Lispro (Insulin Lispro 100 Unit/Ml 3 Ml Vial) 0 unit SUBCUT QIDACHS [facility]; Protocol Last Admin: 02/27/25 20:49 Dose: Not Given Documented By: EWA Non-Admin Reason: No Insulin Coverage Isosorbide Mononitrate (Isosorbide Mononitrate 30 Mg Tab.Er.24h) 30 mg PO DAILY [facility]; Protocol Last Admin: 02/27/25 09:48 Dose: 30 mg Documented By: JOSE DAVID Lidocaine (Lidocaine 4 % Patch Adh..Patch) 1 patch TRANSDERMA DAILY [facility]; Protocol Last Admin: 02/27/25 09:56 Dose: 1 patch Documented By: JOSE DAVID Loratadine (Loratadine 10 Mg Tablet) 10 mg PO DAILY [facility] Last Admin: 02/27/25 08:14 Dose: Not Given Documented By: JOSE DAVID Non-Admin Reason: Patient Refused Losartan Potassium (Losartan Potassium 25 Mg Tablet) 25 mg PO DAILY [facility]; Protocol Last Admin: 02/27/25 09:48 Dose: 25 mg Documented By: JOSE DAVID Magnesium Hydroxide (Milk Of Magnesia 30 Ml Oral.Susp) 30 ml PO DAILY PRN PRN Reason: Constipation Meclizine HCl (Meclizine Hcl 25 Mg Tablet) 25 mg PO TID PRN PRN Reason: Dizziness Or Vertigo Melatonin (Melatonin 3 Mg Tablet) 6 mg PO BEDTIME PRN PRN Reason: Insomnia Metoclopramide HCl (Metoclopramide Hcl 10 Mg/2 Ml Vial) 10 mg IVPUSH Q6H PRN PRN Reason: Nausea and Vomiting Last Admin: 02/27/25 20:49 Dose: 10 mg Documented By: EWA Comments: computer frozen/kicked out and didn't document on med Metoprolol Succinate (Metoprolol Succinate Er 25 Mg Tab.Er.24h) 25 mg PO DAILY [facility]; Protocol Last Admin: 02/27/25 08:07 Dose: 25 mg Documented By: JOSE DAVID Mirtazapine (Mirtazapine 7.5 Mg Tablet) 7.5 mg PO BEDTIME [facility] Last Admin: 02/27/25 20:47 Dose: 7.5 mg Documented By: EWA Ondansetron HCl (Ondansetron Hcl 4 Mg/2 Ml Vial) 4 mg IVPUSH Q8H PRN PRN Reason: Nausea and Vomiting Last Admin: 02/28/25 03:25 Dose: 4 mg Documented By: EWA Oxycodone HCl (Oxycodone Hcl Immed Release 5 Mg Tablet) 10 mg PO Q4H PRN PRN Reason: Pain, Severe (Pain Scale 7-10) Pantoprazole Sodium (Pantoprazole Sodium 40 Mg/10 Ml Vial) 40 mg IVPUSH BID@0630,1630 [facility] Last Admin: 02/28/25 04:45 Dose: 40 mg Documented By: EWA Rivaroxaban (Rivaroxaban 20 Mg Tablet) 20 mg PO DAILY@1700 [facility] Last Admin: 02/27/25 17:21 Dose: 20 mg Documented By: JOSE DAVID Sodium Chloride (0.9 % Sodium Chloride Flush 3 Ml Syringe) 3 ml IVFLUSH QSHIFT [facility] Last Admin: 02/27/25 20:51 Dose: 3 ml Documented By: EWA Venlafaxine HCl (Venlafaxine Hcl 25 Mg Tablet) 50 mg PO BID [facility] Last Admin: 02/27/25 20:47 Dose: 50 mg Documented By: EWA Labs 02/25/25 08:26 02/26/25 05:26 Labs: Laboratory Results - last 24 hr 02/27/25 02/27/25 02/27/25 07:25 11:04 16:24 POC Glucose 152 H 173 H 151 H 02/27/25 02/28/25 19:52 07:20 POC Glucose 139 H 142 H Assessment and Plan (1) Diabetic gastroparesis: Status: Acute (2) Abdominal pain: Status: Acute (3) Intractable nausea and vomiting: Status: Acute Assessment and Plan: 64-year-old male with a PMH significant for?insulin-dependent type 2 diabetes, diabetic gastroparesis, CAD s/p CABG in 2018, paroxysmal AFib on Xarelto, PVD, HTN, hx of osteomyelitis s/p amputation of 1st and 2nd left toes, and peripheral neuropathy who presents to the ED with?abdominal pain and N/V/D x3 days. Pt is admitted to the hospital under observation for treatment and further evaluation of acute on chronic diabetic gastroparesis with intractable N/V/D. Acute on chronic diabetic gastroparesis Pt with intractable N/V/D and epigastric burning abdominal pain x3 days Unable to tolerate p.o. Check stool studies, C diff-negative. CT showing collapse of ascending, descending, and sigmoid colon, unable to exclude wall thickening continue maintenance fluids, ondansetron, Reglan, capsaicin cream, lidocaine patch, at Protonix Clear liquid diet, advance as tolerated Gi eval Insulin-dependent type 2 diabetes with hyperglycemia No DKA: Beta hydroxybutyrate elevated at 2.55, POC 296 s/p ivf plan: Place on sliding scale insulin,Continue Lantus Diabetic diet once diet advanced Paroxysmal AFib Continue Xarelto, metoprolol CAD/HLD Continue statin, ezetimibe HTN Continue losartan Mood disorder/sad /depressed Continue venlafaxine will check ekg to check qtc if allows will add small dose remerone. Full Code DVT Prophylaxis: On Xarelto Ongoing need of stay:for the treatment and further evaluation of acute on chronic diabetic gastroparesis with intractable N/V/D. Given that pt is not tolerating p.o. at this time, pt will require hospital level care for administration of IV antiemetics, analgesics, and fluids. Quality Stroke Does the patient have a stroke diagnosis?: No VTE Prior VTE?: No VTE Risk Level:: Medical - moderate - high VTE Device Contraindication: Treatment Not Indicated VTE Drug Contraindication: N/A - Med Ordered
[2025-02-28] MEDS: Gabapentin 300 MG CAPSULE PO ×2 (08:49→14:34)
[2025-02-28] MEDS: Isosorbide Mononitrate 30 MG TAB.ER.24H PO (08:49)
[2025-02-28] MEDS: oxyCODONE HCl Immed Release 5 MG TABLET 10 MG PO ×2 (08:49→14:34)
[2025-02-28] MEDS: Venlafaxine HCL 25 MG TABLET 50 MG PO (08:49)
[2025-02-28] MEDS: Furosemide 20 MG TABLET PO (08:49)
[2025-02-28] MEDS: Metoprolol Succinate ER 25 MG TAB.ER.24H PO (08:49)
[2025-02-28] MEDS: Lidocaine 4 % Patch ADH..PATCH 1 PATCH TRANSDERMA (08:49)
[2025-02-28] MEDS: Losartan Potassium 25 MG TABLET PO (08:50)
[2025-02-28] MEDS: Aspirin Enteric Coated 81 MG TABLET.DR PO (08:50)
[2025-02-28] MEDS: Ezetimibe 10 MG TABLET PO (08:50)
[2025-02-28 09:19] LABS: Anion Gap 9 (12-20); Blood Urea Nitrogen 5 mg/dL (9-16); Calcium 8.3 mg/dL (8.4-10.2); Carbon Dioxide 26 mmol/L (22-29); Chloride 106 mmol/L (96-108); Creatinine Clr Calc Pharmacy 129.8; Estimated Glomerular Filt Rate > 60; Glucose Random 172 mg/dL (60-115); Potassium 3.4 mmol/L (3.3-5.1); Sodium 138 mmol/L (135-145)
[2025-02-28] MEDS: Potassium Chloride ER 20 MEQ TAB.ER.PRT 40 MEQ PO (09:37)
[2025-02-28 11:50] LABS: Glucose, Whole Blood 178 mg/dL (60-115)
[2025-02-28] MEDS: Insulin Lispro 100 UNIT/ML 3 ML VIAL SUBCUT (12:40)
--- NOTE | 2025-02-28 14:32 | MHC.CM.PN ---
PT MEDICALLY CLEARED TO DC HOME SELF-CARE WITH OUTPT FOLLOW-UP W/PCP AND NEW LABS, GI'S DR. SNEED AND PSYCH DRIFT MINER BELEMFELICIA BOSCHBER, PT'S [place] AT BEDSIDE FOR TRANSPORT. CM MET W/PT AND HER[place], HOSPITALIST AND PT'S RN AT BEDSIDE, HOSPITALIST REVIEWED PLAN AND RATIONALE FOR CHANGES IN MEDICATIONS INCLUDING ANTIDEPRESSANT AND THAT PT CAN FOLLOW UP W/PSYCH DRIFT MINER PT DOES NOT HAVE ANY PSYCHIATRIC SERVICES, PT AND HERNESTO VERBALIZE UNDERSTANDING AND ARE AGREEABLE TO PLAN.
--- NOTE | 2025-02-28 14:33 | P.DS_ITS ---
DS: Providers Provider Date of Service: 02/28/25 Date of admission: 02/28/25 10:19 Date of discharge: 02/28/25 Primary care physician: Marley Rick MD Consults: 02/25/25 17:07 Consult to Gastroenterology Routine Consulting Provider: Eddie Sneed Reason for consultation: Intractable N/V/D, hx of diabetic gastroparesis, hx of DKA 02/27/25 08:13 Consult to Psychiatry Routine Consulting Provider: [facility] [place] [facility] [place] Reason for consultation: Depression Has provider been notified: No Attending physician on discharge: Roni Hall Discharging clinician: Roni Hall DS: Diagnosis Discharge Diagnosis (1) Diabetic gastroparesis: Status: Acute (2) Abdominal pain: Status: Acute (3) Intractable nausea and vomiting: Status: Acute DS: Summary Hospital Course Hospital Course: HPI:64-year-old male with a PMH significant for?insulin-dependent type 2 diabetes, diabetic gastroparesis, CAD s/p CABG in 2018, paroxysmal AFib on Xarelto, PVD, HTN, hx of osteomyelitis s/p amputation of 1st and 2nd left toes, and peripheral neuropathy who presents to the ED with?abdominal pain and N/V/D x3 days. Has been unable to tolerate any p.o.. Pt is unable to quantify how many episodes of N/V/D he has been experiencing just that it has been lasting ?all day?. Abdominal pain primarily epigastric radiating to throat. Describes it as sharp, shooting, and burning sensation. Denies hematemesis or hematochezia. No SOB or difficulty breathing. Has been experiencing similar episodes for the past year with recent hospitalizations on 11/2024 and 02/03/2025 where he was treated for diabetic gastroparesis with DKA. States he has not bee n taking any of his medications including insulin for the past 3 days. States only recently began occasional marijuana vaping around 2 months ago. In the ED pt was tachycardic up to 109, tachypneic up to 26, and hypertensive as high as 213/107. Labs were significant for leukocytosis of 11.7, initial anion gap 22 with repeat closed at 18, POC as high as 296, and beta hydroxybutyrate 2.55. Stool studies pending. UA negative for UTI, but showing glucose, sedimentation, and 1+ proteinuria and [address]?of abdomen/pelvis showed small hiatal hernia with collapse of ascending, descending, and sigmoid colon. Unable to exclude wall thickening in these areas. EKG demonstrated sinus tachycardia of [address] abnormalities. Pt was treated in the ED with ondansetron, hydromorphone, Protonix, IVF, labetalol 10 mg IV x2, Reglan, insulin 5 units IV, and diazepam 2.5 mg IV. Pt is admitted to the hospital under observation for treatment and further evaluation of acute on chronic diabetic gastroparesis with intractable N/V/D. Hospital course: 64-year-old male with a PMH significant for?insulin-dependent type 2 diabetes, diabetic gastroparesis, CAD s/p CABG in 2018, paroxysmal AFib on Xarelto, PVD, HTN, hx of osteomyelitis s/p amputation of 1st and 2nd left toes, and peripheral neuropathy who presents to the ED with?abdominal pain and N/V/D x3 days: Patient was given supportive care with IV fluid, Reglan, Zofran, erythromycin- his symptoms are improved, now tolerating diet feeling better. added potassium 10 meq po for 6 days( since decrease po intake for intail few days and now improved significantly) , moniter electrolytes with pcp outpatient . Patient also needs to follow-up with GI Dr. Sneed office . Patient is eating, hydrating, passing bowels, no abdominal pain. Currently asymptomatic. Mild QT prolongation: Patient is Reglan was stopped, also Effexor is adjusted to 50 mg bid. ekg 's reviewed with cardiology and psych -qtc seems acceptable. Psych recommended to continue Effexor dosing as above since his already adjusted yesterday. No mirtazapine on discharge. Patient will be seen outpatient with psych-patient was strongly advised to follow-up with psych and information given in detail. Depression: Effexor adjusted as above. Discussed with the psych: Patient is asymptomatic, QTC seems acceptable . remerone stopped. follow up with psych and pcp outpatient and consider checking ekg outpatient . plan: Stop Reglan until seen by PCP. Effexor adjusted to 50 mg b.i.d., further management as per psych outpatient. Complete potassium 10 mEq p.o.x6 6 day supply given,Monitor renal function/electrolytes outpatient with PCP. Patient was advised to follow-up with GI, PCP and psych outpatient. Above management discussed with the patient in detail length, patient and his both were present-they understand and in agreement with above plan. During this conversation nursing staff, case management staff was present. Patient's all questions answered. Total time spent 40 minute. Time Attestation Total time managing care of this patient today: 40 mintues. Discharge Coordination Time (in mins): 40 min Quality: Safe Use of Opioids Does Pt have an Active Cancer Diagnosis on the Problem List?: No Quality: Stroke Does the patient have a stroke diagnosis?: No Physical Exam Vital Signs: Vital Signs: Last Vital Signs Temp 97.5 F 02/28/25 07:20 Pulse 79 02/28/25 07:20 Resp 16 02/28/25 07:20 BP 122/66 02/28/25 07:20 Pulse Ox 97 02/28/25 07:20 O2 Del Method Room Air 02/28/25 07:20 BMI result Body Mass Index 35.7 Appearance: Alert.? Oriented X3.? cvs: rrr, [id number] . res: clear to auscultation ,no rhonchii or wheezing abd: no rebound or guarding ,nt, bs present. ext pulses present , no cyanosis. neuro: axo3 , nonfocal. DS: Data Data Completed and Pending Completed studies during hospitalization [Text1]: Procedures Detachment at Left 1st Toe, Complete, Open Approach (01/03/22) Drainage of Pelvic Region Subcutaneous Tissue and Fascia, Open Approach (04/30/23) Fluoroscopy of Left Lower Extremity Arteries using High Osmolar Contrast (08/04/22) Fluoroscopy of Right Subclavian Vein using Low Osmolar Contrast, Guidance (08/04/22) Insertion of Infusion Device into Right Subclavian Vein, Percutaneous Approach (08/04/22) Insertion of Infusion Device into Superior Vena Cava, Percutaneous Approach (01/20/22) Ultrasonography of Superior Vena Cava, Guidance (01/03/22) Labs on day of discharge: Laboratory Results - last 24 hr 02/27/25 02/27/25 02/28/25 16:24 19:52 07:20 Sodium Potassium Chloride Carbon Dioxide Anion Gap BUN Creatinine Estim Creat Clear Calc Estimated GFR POC Glucose 151 H 139 H 142 H Random Glucose Calcium 02/28/25 02/28/25 08:45 11:42 Sodium 138 Potassium 3.4 Chloride 106 Carbon Dioxide 26 Anion Gap 9 L BUN 5 L Creatinine 0.68 Estim Creat Clear Calc 129.8 Estimated GFR > 60 POC Glucose 178 H Random Glucose 172 H Calcium 8.3 L Imaging Chest x-ray: Radiologist's impression: ITS Impressions Abdomen/Pelvis CT 02/25/25 09:22 IMPRESSION: Small hiatal hernia. Collapse of the ascending, descending, and sigmoid colon. It is difficult to exclude wall thickening in these regions. Discharge Plan Discharge Anticipated Discharge Date/Time: 02/28/25 14:23 Patient Disposition: Home, Self-Care Discharge Diagnosis: diabetic gasteroparesis ,mild qt prolongation Referrals: Marley Rick MD [Primary Care Provider] - 1 Week Aggie Perez APRN [Nurse Practitioner] - 1 Week (AGGIE PEREZ APRN IS A PSYCHIATRIC MED PROVIDER, PLEASE CALL [phone] IF YOU WOULD LIKE TO FOLLOW- UP W/HER FOR YOUR RECENT MED CHANGES.) Eddie Sneed MD [Physician] - 1 Week (PLEASE CONTACT DR. SNEED'S OFFICE FOR FOLLOW-UP APPT AT [phone]) Discharge Medications: New potassium chloride 10 mEq capsule, extended release 10 meq PO DAILY Qty: 6 0RF Continued (DME) walker Misc See Rx Instructions .Route Qty: 1 0RF Rx Instructions: As directed (DME) Aircast off loading boot Kit See Rx Instructions .Route Qty: 1 0RF Rx Instructions: As directed (DME) elastic bandage 6 X 1.8 -yard bandage See Rx Instructions .Route Qty: 6 0RF Rx Instructions: As directed (DME) gauze bandage [Band-Aid Gauze Pads] 4 X 4 bandage See Rx Instructions .Route Qty: 25 3RF Rx Instructions: As directed (DME) sterile gauze 4x4 See Rx Instructions .Route .MEDSUPPLY Qty: 40 3RF Rx Instructions: Apply to left foot wound every other day (DME) calcium alginate ag 4x4 pad See Rx Instructions .Route .MEDSUPPLY Qty: 5 2RF Rx Instructions: Apply to wound beds every other day insulin glargine [Lantus U-100 Insulin] 100 unit/mL solution 10 unit subcut BID Rx Instructions: 50 units at lunch and 100 units at bedtime isosorbide mononitrate 30 mg tablet extended release 24 hr 30 mg PO DAILY pantoprazole 40 mg tablet,delayed release (DR/EC) 40 mg PO BID@0630,1630 losartan 25 mg tablet 25 mg PO DAILY gabapentin 300 mg capsule 300 mg PO TID loratadine 10 mg tablet 10 mg PO DAILY ezetimibe 10 mg tablet 10 mg PO DAILY rosuvastatin 40 mg tablet 40 mg PO BEDTIME meclizine 25 mg tablet 25 mg PO TID PRN (Reason: Dizziness Or Vertigo) (MARIA L) jw Morgan See Rx Instructions .Route Qty: 1 0RF Rx Instructions: As directed aspirin 81 mg tablet,delayed release (DR/EC) 81 mg PO DAILY furosemide 20 mg tablet 20 mg PO DAILY metoprolol succinate 25 mg tablet extended release 24 hr 25 mg PO DAILY insulin lispro 100 unit/mL solution See Protocol subcut QIDACHS Protocol: Insulin Correction Scale Less than or equal to 110 ---- Give (units): 0 111 to 150 Give (units): 0 151 to 200 Give (units): 2 201 to 250 Give (units): 4 251 to 300 Give (units): 6 301 to 350 Give (units): 8 Greater than 350 Give (units): 10 Call MD if Blood Glucose > : 350 oxycodone 10 mg tablet 10 mg PO Q4H PRN (Reason: Pain) Xarelto 20 mg tablet 20 mg PO DAILY@1700 dapagliflozin propanediol [Farxiga] 10 mg tablet 10 mg PO DAILY ondansetron 8 mg tablet,disintegrating 8 mg PO Q8H PRN (Reason: nausea and vomiting) Qty: 15 0RF Changed venlafaxine 100 mg tablet 50 mg PO BID Qty: 30 0RF Discontinued metoclopramide HCl [Reglan] 10 mg tablet 10 mg PO Q8H PRN (Reason: nausea and vomiting) Qty: 30 0RF Discharge Orders: Discharge Order (Routine); Ordered 02/28/25 Ordered By: Roni Hall Diet: Advance to usual diet Activity on Discharge: As tolerated Stand Alone Forms: Patient Portal Discharge page Print Language: Liberian Other Ambulatory Orders: Basic Metabolic Panel (Routine) Timeframe: 1 Week Facility: [facility] - Location: Laboratory Ordered By: Roni Hall Care Plan Goals: 64-year-old male with a PMH significant for?insulin-dependent type 2 diabetes, diabetic gastroparesis, CAD s/p CABG in 2018, paroxysmal AFib on Xarelto, PVD, HTN, hx of osteomyelitis s/p amputation of 1st and 2nd left toes, and peripheral neuropathy who presents to the ED with?abdominal pain and N/V/D x3 days: Patient was given supportive care with IV fluid, Reglan, Zofran, erythromycin- his symptoms are improved, now tolerating diet feeling better. Mild QT prolongation: Patient is Reglan was stopped, also Effexor is adjusted to 50 mg bid. added potassium 10 meq po for 6 days , moniter electrolytes with pcp outpatient . Patient also needs to follow-up with GI Dr. Sneed office . Depression: Effexor adjusted as above. Discussed with the psych: Patient is asymptomatic, QTC seems acceptable . remerone stopped. follow up with psych and pcp outpatient and consider checking ekg outpatient . Health Concerns: Stop Reglan until seen by PCP. Effexor adjusted to 50 mg b.i.d. Complete potassium 10 mEq p.o.x6 6 day supply given. Monitor electrolytes Patient was advised to follow-up with GI, PCP and psych outpatient. Plan of Treatment: a above. Assessment: as above. Patient Instructions: Diabetic Gastroparesis (DC) Discharge Date/Time: 02/28/25 14:54
== END 2025-02-28 14:54 | disposition home or self-care (01) | DRG 48 ==
LOC: HO.ED 12:31 → HO.EDOVER 12:50 → HO.S3 13:05
PROVIDERS: Physician Assistant Medical; Admitting Provider Student in an Organized Health Care Education/Training Program; Emergency Provider Emergency Medicine; PCP Internal Medicine; Visit Provider Internal Medicine
DX: E11.43 Type 2 diabetes mellitus with diabetic autonomic (poly)neuropathy (principal); E11.65 Type 2 diabetes mellitus with hyperglycemia; I25.10 Atherosclerotic heart disease of native coronary artery without angina pectoris; I48.0 Paroxysmal atrial fibrillation; E78.5 Hyperlipidemia, unspecified; E11.42 Type 2 diabetes mellitus with diabetic polyneuropathy; F32.A Depression, unspecified; K31.84 Gastroparesis; R94.31 Abnormal electrocardiogram [ECG] [EKG]; Z20.822 Contact with and (suspected) exposure to COVID-19; Z95.1 Presence of aortocoronary bypass graft; Z79.4 Long term (current) use of insulin; Z79.01 Long term (current) use of anticoagulants; Z79.82 Long term (current) use of aspirin; Z79.899 Other long term (current) drug therapy
CPT/HCPCS: 0241U; 36415; 74177; 80048; 80053; 81001; 82010; 82947; 83690; 83735; 83880; 84484; 85025; 85610; 87493; 87507; 93005; 99285; J1171; J1364; J1920; J2405; J2470; J2765; J3360; J7120; Q9967

== ENCOUNTER → 2025-02-25 08:02 | Outpatient (BNV) | payer OTHER, SELFPAY | PROVIDERS: Admitting Provider Student in an Organized Health Care Education/Training Program; Emergency Provider Emergency Medicine; Visit Provider Internal Medicine Cardiovascular Disease | DX: R00.0 Tachycardia, unspecified (principal) | CPT/HCPCS: 93010 ==

== ENCOUNTER → 2025-02-25 08:31 | Outpatient (BNV) | payer OTHER, SELFPAY | PROVIDERS: Visit Provider Radiology Diagnostic Radiology | DX: K44.9 Diaphragmatic hernia without obstruction or gangrene (principal); K63.89 Other specified diseases of intestine | CPT/HCPCS: 74177 ==

== ENCOUNTER → 2025-02-25 12:42 | Outpatient (BNV) | payer OTHER, SELFPAY | PROVIDERS: Admitting Provider Student in an Organized Health Care Education/Training Program; Emergency Provider Emergency Medicine; Visit Provider Student in an Organized Health Care Education/Training Program | DX: E11.43 Type 2 diabetes mellitus with diabetic autonomic (poly)neuropathy (principal); K31.84 Gastroparesis; R10.9 Unspecified abdominal pain; R11.2 Nausea with vomiting, unspecified | CPT/HCPCS: 99223; 99231; 99232; 99239 ==

== ENCOUNTER → 2025-02-27 12:31 | Outpatient (BNV) | payer OTHER, SELFPAY | PROVIDERS: Admitting Provider Student in an Organized Health Care Education/Training Program; Emergency Provider Emergency Medicine; PCP Internal Medicine; Visit Provider Internal Medicine | DX: I49.3 Ventricular premature depolarization (principal) | CPT/HCPCS: 93010 ==

== ENCOUNTER 2025-02-28 10:19 | Outpatient (BNV) | payer OTHER, SELFPAY | END 2025-02-28 11:17 | PROVIDERS: Admitting Provider Student in an Organized Health Care Education/Training Program; Emergency Provider Emergency Medicine; PCP Internal Medicine; Visit Provider Internal Medicine | DX: I49.3 Ventricular premature depolarization (principal); I25.2 Old myocardial infarction | CPT/HCPCS: 93010 ==

== ENCOUNTER 2025-03-23 09:56 | Inpatient (IN) | payer OTHER, SELFPAY ==
[2025-03-23] VITALS (12 sets, daily range): BP systolic 117–245; BP diastolic 59–117; PULSE 97–118; RESP 12–20; TEMP 36.8–37.2; O2SAT 94–100; BMI 33.2
--- NOTE | 2025-03-23 | ECG_ITS ---
Test Reason : tachycardia Blood Pressure : */* mmHG Vent. Rate : 96 BPM Atrial Rate : 96 BPM P-R Int : 208 ms QRS Dur : 92 ms QT Int : 390 ms P-R-T Axes : 61 -30 53 degrees QTcB Int : 492 ms Normal sinus rhythm Left axis deviation Inferior infarct (cited on or before 28-Feb-2025) Abnormal ECG When compared with ECG of 28-Feb-2025 12:57, Nonspecific T wave abnormality, improved in Anterolateral leads Referred By: Aiden Obregon Electronically Signed By: YINA MERRILL MD
--- NOTE | ~2025-03-23 | XR_ITS ---
EXAMINATION: XR ABDOMEN KUB CLINICAL INDICATION: abd pain vomiting COMPARISON: Correlated to CT dated February 25, 2025. TECHNIQUE: AP view of the abdomen. FINDINGS: There are a few scattered nonspecific air-fluid levels in the left hemiabdomen. There is gas throughout the intestine. No free air beneath the diaphragm. Metallic wires. Vascular clips right upper quadrant abdomen. Vascular calcifications, aorta and likely splenic artery. Metallic hardware for a lumbosacral fusion L4-S1. Metallic prosthesis both hips. Osteopenia versus fibrosis. Old healed rib fractures posterior lateral right lower hemithorax. XR/XR abdomen 1V IMPRESSION: Nonspecific air-fluid levels left hemiabdomen. Consider regional ileus. Electronically signed by: Jimmy Kaur MD 03/23/2025 01:15 PM EDT
--- NOTE | 2025-03-23 10:09 | ED_ITS ---
HPI - Abdominal Pain General Chief Complaint: Nausea/Vomiting/Diarrhea Stated Complaint: ABD PAIN PER EMS Time Seen by Provider: 03/23/25 10:02 History of Present Illness ED Provider: Aiden Obergon MD HPI narrative: 64-year-old male with history of CAD status post CABG, MDD, diabetic gastroparesis. Diffuse poorly localized abd pain. recurrent NBNB vomiting. Poor hx. No trauma. Denies fever Related Data Home Medications ?Medication ?Instructions ?Recorded ?Confirmed ezetimibe 10 mg tablet 10 mg PO BEDTIME 01/03/22 03/23/25 gabapentin 300 mg capsule 300 mg PO TID 01/03/22 03/23/25 insulin glargine 100 unit/mL 10 unit subcut BEDTIME 01/03/22 03/23/25 subcutaneous solution (Lantus U-100 Insulin) isosorbide mononitrate 30 mg 30 mg PO DAILY 01/03/22 03/23/25 tablet,extended release 24 hr loratadine 10 mg tablet 10 mg PO DAILY 01/03/22 03/23/25 losartan 25 mg tablet 25 mg PO DAILY 01/03/22 03/23/25 meclizine 25 mg tablet 25 mg PO TID PRN Dizziness Or 01/03/22 03/23/25 Vertigo pantoprazole 40 mg tablet,delayed 40 mg PO BID@0630,1630 01/03/22 03/23/25 release rosuvastatin 40 mg tablet 40 mg PO BEDTIME 01/03/22 03/23/25 aspirin 81 mg tablet,delayed 81 mg PO DAILY 08/04/22 03/23/25 release furosemide 20 mg tablet 20 mg PO DAILY 11/13/22 03/23/25 metoprolol succinate 25 mg 25 mg PO DAILY 10/14/24 03/23/25 tablet,extended release 24 hr insulin lispro 100 unit/mL See Protocol subcut QIDACHS 12/16/24 03/23/25 subcutaneous solution oxycodone 10 mg tablet 10 mg PO Q4H PRN Pain 12/16/24 03/23/25 rivaroxaban 20 mg tablet (Xarelto) 20 mg PO DAILY@1700 12/16/24 03/23/25 insulin glargine 100 unit/mL 8 unit subcut DAILY 03/23/25 03/23/25 subcutaneous solution (Lantus U-100 Insulin) venlafaxine 100 mg tablet 100 mg PO BID 03/23/25 03/23/25 Previous Rx's ?Medication ?Instructions ?Recorded walker #1 ea 01/11/22 walker #1 ea 01/15/22 Band-Aid Gauze Pads 4 X 4 #25 ea 04/16/22 bandage (gauze bandage) elastic bandage 6 X 1.8 yard #6 ea 04/16/22 off loading boot (Aircast off #1 ea 04/16/22 loading boot) calcium alginate ag #5 ea 04/23/22 sterile gauze #40 ea 04/23/22 Allergies Allergy/AdvReac Type Severity Reaction Status Date / Time morphine AdvReac Intermediate Hallucinati Verified 03/23/25 10:24 ons [facility] Past Medical History Medical History (Updated 03/24/25 @ 15:09 by Lalita Mckeon) PVD (peripheral vascular disease) Gastroparesis DKA (diabetic ketoacidosis) Obesity (BMI 30-39.9) PAD (peripheral artery disease) Afib Amputation of left great toe Lower limb amputation, great toe CAD (coronary artery disease) DMII (diabetes mellitus, type 2) Orthopedic hardware present Hyperglycemia Cellulitis Asthma Diabetes Hypertension FHx: bilateral hip replacements Surgical History History of amputation of toe (07/29/22) History of amputation of great toe (01/07/22) History of back surgery History of neck surgery History of ankle surgery H/O bilateral hip replacements S/P quadruple vessel bypass Family History Family History Other No family history of coronary artery disease Social History Social History Household Members: Spouse Household Members Other:: 3 Housing: Apartment Are you a primary school childcare attendant to a significant other at home: No Do you presently have visiting nurse or other home services: No Alcohol intake: never Comment: refused bed or chair alarm Patient Tobacco Use Status: Former Tobacco user Tobacco use type: Cigarette e-Cigarette/Vaping Use: Never Used Second Hand Smoke Exposure: No Substance Use Type: Marijuana Advance Directives Date on File: 01/04/22 service: No Current occupational status: disabled Physical Exam ED Vital Signs: Vital Signs - 24 hr 03/23/25 10:08 03/23/25 10:28 Temperature 99 F Pulse Rate 97 98 Respiratory Rate 20 16 Blood Pressure 222/110 H 162/78 H Pulse Oximetry 100 100 Oxygen Delivery Method Room Air Room Air BMI result Body Mass Index 33.2 Const Other: Appearance: Alert.? Oriented X3.? Vomiting, uncomfortab;le Eyes: Pupils equal, round and reactive to light. ? ENT: Pharynx normal.? Atraumatic Neck: Normal inspection.? Neck supple. ? CVS: Normal heart rate and rhythm.? Pulses normal. ? Respiratory: No respiratory distress.? Breath sounds normal. ? Abdomen: Mild diffuse TTP. No masses, no r/g. Midline scar. ND. Skin: Skin warm and dry.? Normal skin color. ? Extremities: No lower extremity edema. ? Neuro: Oriented X 3.? No motor deficit.? No sensory deficit. CN2-12 intact Medical Decision Making Medical Decision Making [facility] Narrative: 64-year-old male with history of presumed diabetic gastroparesis with multiple recurrent admissions to the hospital for similar. Patient has a similar presentation with several days of intractable nausea vomiting and generalized abdominal discomfort. He looks slightly unwell but not fluid depleted or ill or toxic he has no rigidity or peritoneal signs on exam. ECG reassuring without ischemic changes or major interval abnormalities. His QTC is 492 slightly prolonged and he has subtle nonspecific ST depressions mostly seen in V5 and V6. He has no anginal symptomatology Differential Diagnosis Differential Diagnoses: The differential diagnosis associated with the presentation includes Gastroenteritis, food-borne illness, electrolyte derangement, dehydration, get diabetic gastroparesis, CHS, DKA, HHS Admission/Observation Consideration of admission/observation: Escalation of care including admission/observation considered Consult Healthcare Provider Management of the patient was discussed with: Hospitalist Lab Data [facility] Lab Attestation statement: I reviewed the patient's lab results. 03/24/25 04:26 03/25/25 05:54 Labs: Lab Results 03/23/25 03/23/25 Range/Units 10:54 10:58 WBC 12.8 H (4.8-10.8) X10*3/uL RBC 4.72 (4.60-5.80) X10*6/uL Hgb 13.8 L (14.0-18.0) g/dl Hct 39.7 L (42.0-52.0) % MCV 84.1 (80.0-98.0) fL MCH 29.2 (27.0-33.0) pg MCHC 34.8 (31.0-36.0) g/dl RDW 13.5 (11.0-16.0) % Plt Count 271 D (160-400) X10*3/uL MPV 9.6 (9.4-12.4) fL Immature Gran % (Auto) 0.5 H (0.0-0.4) % Neut % (Auto) 79.4 H (45-73) % Lymph % (Auto) 14.5 L (20-40) % Spink % (Auto) 4.9 (2-11) % Eos % (Auto) 0.2 (0-4) % Baso % (Auto) 0.5 (0-2) % Lymph # (Auto) 1.9 (1.2-4.9) X10*3/uL Spink # (Auto) 0.6 (0.1-1.2) X10*3/uL Eos # (Auto) 0.0 (0.0-0.4) X10*3/uL Baso # (Auto) 0.1 (0.0-0.2) X10*3/uL Abs Immat Gran (auto) 0.06 H (0.00-0.03) X10*3/uL Absolute Neuts (auto) 10.1 H (2.0-8.3) x10*3/uL Absolute Nucleated RBC 0.000 (0.0-0.012) X10*3/uL Nucleated RBC % (auto) 0.0 (0.0-0.2) /100WBC VBG pH 7.46 H (7.32-7.43) VBG pCO2 25 mmHg VBG pO2 56 mmHg VBG HCO3 18 L (22-26) mmol/L VBG O2 Saturation 84.0 % VBG Base Excess -3.3 mmol/L Sodium 139 (135-145) mmol/L Potassium 3.9 (3.3-5.1) mmol/L Chloride 107 (96-108) mmol/L Carbon Dioxide 18 L (22-29) mmol/L Anion Gap 18 (12-20) BUN 6 L (9-16) mg/dL Creatinine 0.63 (0.5-1.4) mg/dL Estim Creat Clear Calc 135.1 Estimated GFR > 60 Random Glucose 265 H (60-115) mg/dL Calcium 9.1 D (8.4-10.2) mg/dL Total Bilirubin 0.9 (0.0-1.0) mg/dL AST 18 (5-37) U/L ALT 8 (0-40) U/L Alkaline Phosphatase 76 (39-117) U/L Total Protein 6.5 (6.5-8.0) g/dL Albumin 4.0 (3.5-5.0) g/dL Beta-Hydroxybutyrate 1.81 H (0.02-0.27) mmol/L Independent Interpretation I performed an independent interpretation of an: EKG (Sinus rhythm rate 96 QTC 492, [place] [address] depressions mostly seen V4 and V6. No ST elevations. Nonspecific) Medications Administered Generic Name Dose Route Start Last Admin Trade Name Freq PRN Reason Stop Dose Admin Aspirin 81 mg 03/24/25 09:00 03/25/25 08:07 Aspirin Enteric Coated 81 Mg Tablet.Dr PO 81 mg DAILY WILLIAM Administration Atorvastatin Calcium 80 mg 03/23/25 21:00 03/24/25 21:06 Atorvastatin Calcium 80 Mg Tablet PO 80 mg BEDTIME WILLIAM Administration Ezetimibe 10 mg 03/23/25 21:00 03/24/25 21:06 Ezetimibe 10 Mg Tablet PO 10 mg BEDTIME WILLIAM Administration Enoxaparin Sodium 100 mg 03/23/25 18:00 03/25/25 05:30 Enoxaparin Sodium 100 Mg/Ml Syringe SUBCUT 100 mg Q12H WILLIAM Administration Furosemide 20 mg 03/24/25 09:00 03/25/25 08:08 Furosemide 20 Mg Tablet PO 20 mg DAILY WILLIAM Administration Protocol Gabapentin 300 mg 03/23/25 21:00 03/25/25 08:08 Gabapentin 300 Mg Capsule PO 300 mg TID WILLIAM Administration Hydromorphone HCl 0.5 mg 03/23/25 16:06 03/25/25 12:29 Hydromorphone Hcl 0.5 Mg/0.5 Ml Syringe IVPUSH 0.5 mg Q4H PRN Administration Pain, Severe (Pain Scale 7-10) Protocol Lactated Ringer's 1,000 mls @ 100 mls/hr 03/23/25 16:30 03/25/25 08:21 Lr IVCONT 100 mls/hr .Q10H WILLIAM Administration Insulin Human Lispro 0 unit 03/23/25 16:30 03/25/25 11:44 Insulin Lispro 100 Unit/Ml 3 Ml Vial SUBCUT 2 unit QIDACHS WILLIAM Administration Protocol Isosorbide Mononitrate 30 mg 03/24/25 09:00 03/25/25 08:07 Isosorbide Mononitrate 30 Mg Tab.Er.24h PO 30 mg DAILY WILLIAM Administration Protocol Lidocaine 1 patch 03/23/25 16:15 03/25/25 08:06 Lidocaine 4 % Patch Adh..Patch TRANSDERMA 1 patch DAILY WILLIAM Administration Protocol Loratadine 10 mg 03/24/25 09:00 03/25/25 08:08 Loratadine 10 Mg Tablet PO 10 mg DAILY WILLIAM Administration Metoclopramide HCl 5 mg 03/23/25 21:00 03/25/25 08:07 Metoclopramide Hcl 10 Mg/2 Ml Vial IVPUSH 5 mg TID WILLIAM Administration Metoprolol Succinate 25 mg 03/24/25 09:00 03/25/25 08:08 Metoprolol Succinate Er 25 Mg Tab.Er.24h PO 25 mg DAILY WILLIAM Administration Protocol Ondansetron HCl 4 mg 03/23/25 16:04 03/25/25 12:29 Ondansetron Hcl 4 Mg/2 Ml Vial IVPUSH 4 mg Q6H PRN Administration Nausea and Vomiting Pantoprazole Sodium 40 mg 03/23/25 16:30 03/25/25 05:30 Pantoprazole Sodium 40 Mg/10 Ml Vial IVPUSH 40 mg BID@0630,1630 WILLIAM Administration Sodium Chloride 3 ml 03/24/25 00:00 03/25/25 08:06 0.9 % Sodium Chloride Flush 3 Ml Syringe IVFLUSH 3 ml QSHIFT WILLIAM Administration Venlafaxine HCl 50 mg 03/24/25 21:00 03/25/25 08:08 Venlafaxine Hcl 25 Mg Tablet PO 50 mg BID WILLIAM Administration Discontinued Medications Generic Name Dose Route Start Last Admin Trade Name Freq PRN Reason Stop Dose Admin Diazepam 5 mg 03/23/25 10:26 03/23/25 10:46 Diazepam 10 Mg/2 Ml Cartridge IVPUSH 03/23/25 10:27 5 mg STAT STA Administration Droperidol 0.625 mg 03/23/25 10:26 03/23/25 10:46 Droperidol 5 Mg/2 Ml Vial IVPUSH 03/23/25 10:27 0.625 mg ONCE ONE Administration Famotidine 20 mg 03/23/25 10:45 03/23/25 10:46 Famotidine/Pf 20 Mg/2 Ml Vial IVPUSH 03/23/25 10:46 20 mg ONCE ONE Administration Hydralazine HCl 10 mg 03/23/25 12:50 03/23/25 13:21 Hydralazine Hcl 20 Mg/Ml Vial IVPUSH 03/23/25 12:51 10 mg ONCE ONE Administration Protocol Hydromorphone HCl 1.5 mg 03/23/25 13:50 03/23/25 13:57 Hydromorphone Hcl 2 Mg/Ml Vial IVPUSH 03/23/25 13:51 1.5 mg ONCE ONE Administration Protocol Lactated Ringer's 1,000 mls @ 999 mls/hr 03/23/25 10:30 03/23/25 11:49 Lr IV 03/23/25 11:30 Infused .Q1H1M WILLIAM Infusion Acetaminophen 1,000 mg in 100 mls @ 400 mls/hr 03/23/25 12:46 03/23/25 13:29 Ofirmev IV 03/23/25 13:00 Infused ONCE ONE Infusion Erythromycin Lactobionate 250 100 mls @ 100 mls/hr 03/23/25 12:46 03/23/25 19:49 mg/ Sodium Chloride IV 03/23/25 13:45 Infused ONCE ONE Infusion Metoclopramide HCl 10 mg 03/23/25 12:46 03/23/25 13:14 Metoclopramide Hcl 10 Mg/2 Ml Vial IVPUSH 03/23/25 12:47 10 mg ONCE ONE Administration Venlafaxine HCl 100 mg 03/23/25 21:00 03/24/25 11:40 Venlafaxine Hcl 25 Mg Tablet PO 100 mg BID WILLIAM Administration Discharge Plan Discharge Clinical Impression: Diabetic gastroparesis, Hypertensive urgency Patient Disposition: Admitted As Inpatient Interventions: Admission Worksheet (ED) Last Done: 03/24/25 14:29 Discharge Date/Time: 03/24/25 15:09
--- NOTE | 2025-03-23 10:28 | PC.NURSE ---
patient a&ox3, monitoring engineer applied, pt has IV previously inserted by ems- had 1L ns given by ems. pt c/o 08/05 abd pain and nausea. pt awaiting provider evaluation, call bansal within reach, plan of care ongoing
[2025-03-23] MEDS: diazePAM 10 MG/2 ML CARTRIDGE 5 MG IVPUSH (10:46)
[2025-03-23] MEDS: Famotidine/PF 20 MG/2 ML VIAL IVPUSH (10:46)
[2025-03-23] MEDS: droPERidol 5 MG/2 ML VIAL 0.625 MG IVPUSH (10:46)
[2025-03-23] MEDS: Lactated Ringers 1,000 ML 999 ML IV (10:48)
--- NOTE | 2025-03-23 10:51 | PC.NURSE ---
patient ivf started per order, ekg performed, pt medicated per order, tech drawing labs, call bansal within reach, plan of care ongoing
[2025-03-23 10:58] LABS: MANUAL DIFF FLAG NO
[2025-03-23 10:59] LABS: Venous Blood Gas Refer to POC result
[2025-03-23 11:02] LABS: VBG Base Excess -3.3 mmol/L; VBG HCO3 18 mmol/L (22-26); VBG pCO2 25 mmHg; VBG pH 7.46 (7.32-7.43); VBG pO2 56 mmHg
[2025-03-23 11:02] LABS: Basophils Absolute Auto 0.1 X10*3/uL (0.0-0.2); Basophils Percent Auto 0.5 % (0-2); Eosinophils Percent Auto 0.2 % (0-4); Hematocrit 39.7 % (42.0-52.0); Hemoglobin 13.8 g/dl (14.0-18.0); Imm Gran Abs Auto 0.06 X10*3/uL (0.00-0.03); Imm Gran Pct Auto 0.5 % (0.0-0.4); Lymphocytes Absolute Auto 1.9 X10*3/uL (1.2-4.9); Lymphocytes Percent Auto 14.5 % (20-40); Mean Corpuscular HGB Conc 34.8 g/dl (31.0-36.0); Mean Corpuscular Hemoglobin 29.2 pg (27.0-33.0); Mean Corpuscular Volume 84.1 fL (80.0-98.0); Mean Platelet Volume 9.6 fL (9.4-12.4); Monocytes Absolute Auto 0.6 X10*3/uL (0.1-1.2); Monocytes Percent Auto 4.9 % (2-11); Neutrophils Absolute Auto 10.1 x10*3/uL (2.0-8.3); Neutrophils Percent Auto 79.4 % (45-73); Platelet Count 271 X10*3/uL (160-400); Red Blood Count 4.72 X10*6/uL (4.60-5.80); Red Cell Distribution Width 13.5 % (11.0-16.0); White Blood Count 12.8 X10*3/uL (4.8-10.8)
[2025-03-23 11:23] LABS: Alanine Aminotransferase 8 U/L (0-40); Alkaline Phosphatase 76 U/L (39-117); Anion Gap 18 (12-20); Aspartate Amino Transferase 18 U/L (5-37); Bilirubin Total 0.9 mg/dL (0.0-1.0); Blood Urea Nitrogen 6 mg/dL (9-16); Calcium 9.1 mg/dL (8.4-10.2); Carbon Dioxide 18 mmol/L (22-29); Chloride 107 mmol/L (96-108); Creatinine Clr Calc Pharmacy 135.1; Estimated Glomerular Filt Rate > 60; Glucose Random 265 mg/dL (60-115); Potassium 3.9 mmol/L (3.3-5.1); Sodium 139 mmol/L (135-145); Total Protein 6.5 g/dL (6.5-8.0)
--- NOTE | 2025-03-23 12:47 | PC.NURSE ---
patient c/o 08/05 abd pain, pt also noted to be hypertensive, provider notified
[2025-03-23] MEDS: Metoclopramide HCl 10 MG/2 ML VIAL IVPUSH (13:14)
[2025-03-23] MEDS: Acetaminophen 1,000 MG/100 ML PIGGYBACK 400 MG IV (13:14)
[2025-03-23] MEDS: hydrALAZINE HCl 20 MG/ML VIAL 10 MG IVPUSH (13:21)
--- NOTE | 2025-03-23 13:35 | PC.NURSE ---
pharmacy called for missing medication they stated they are making the medication and will bring it when ready
[2025-03-23] MEDS: HYDROmorphone HCl 2 MG/ML VIAL 1.5 MG IVPUSH (13:57)
--- NOTE | 2025-03-23 14:00 | PC.NURSE ---
patient a&ox3, asset liability analyst intact, st on monitor, pt continues to be hypertensive and complaining of 10/10 abd pain- provider notified 1.5 mg dilaudid was ordered and given per order, call bansal within reach, plan of care ongoing
[2025-03-23] MEDS: Erythromycin Lactobionate 250 MG in 0.9 % Sodium Chloride 100 ML 100 MG IV (14:26)
[2025-03-23 15:12] LABS: Beta-Hydroxybutyrate 1.81 mmol/L (0.02-0.27)
--- NOTE | 2025-03-23 16:38 | PHA.MEDREC ---
Addendum entered by Yelitza Zapata RPh 03/23/25 16:55: Reviewed by [facility] Original Note: Pharmacy Consult ? Medication Reconciliation Pharmacy has completed the medication reconciliation. Spoke with patient and he confirmed his medications. Pt just admitted with us 02/26-02/28 and upon discharge pt confirmed he stopped taking the Metoclopramide 10mg tab and started a Potassium Chloride 10meq regimen for 6 days, which the pt completed that last week. Pt confirmed he takes his Lantus 8 units in the morning and 10 units at bedtime and takes an Insulin Lispro QIDACHS injecting per a sliding scale. He stated he is still taking the Venlafaxine 100mg tab BID and never started the 50mg BID regimen per the change on his Dc Pkt on 02/28. Pt confirmed all his other meds and stated he has not been able to take any of them (including his insulins) in 3 days.
[2025-03-23 16:54] LABS: Glucose, Whole Blood 285 mg/dL (60-115)
--- NOTE | 2025-03-23 17:02 | P.HPHOSP_ITS ---
History of Present Illness Date of Service: 03/23/25 Attending physician on admission: Roni Hall Chief Complaint: Nausea vomiting. 64-year-old male with history of presumed diabetic gastroparesis with multiple recurrent admissions -came with nausea vomiting and afterwards had some mild abdominal discomfort, feeling generalized weak, he says his presentation is similar to last time when he was treated for gastroparesis. He denies any aggravating or elevating food or any factors. Denies any urinary complaints or shortness of breath or cough or fever or chills. Patient has had this time nausea vomiting started 2 days back, also had 3 episode of liquid stool . Last BM today. Abdominal pain mostly in the epigastric area specially with the vomiting. Has mild tachycardia and elevated blood pressure, did not take his blood pressure medication today. Mild leukocytosis of 12.4. Did not eat or drink well at least a day or so. Labs: Renal function electrolytes normal, bicarb is 18, anion gap normal, pH is also normal. Has mild elevated in b-oxybutrate 1.8 (which is better than before.) kub:Nonspecific air-fluid levels left hemiabdomen. Consider regional ileus. ekg nsr -qtc 492 Review of Systems 2 Review of Systems: As above. Yes all other systems are reviewed and are negative [facility] Medical History (Updated 03/08/25 @ 00:02 by Eugenia Lechuga) PVD (peripheral vascular disease) Gastroparesis DKA (diabetic ketoacidosis) Obesity (BMI 30-39.9) PAD (peripheral artery disease) Afib Amputation of left great toe Lower limb amputation, great toe CAD (coronary artery disease) DMII (diabetes mellitus, type 2) Orthopedic hardware present Hyperglycemia Cellulitis Asthma Diabetes Hypertension FHx: bilateral hip replacements Family History Other No family history of coronary artery disease Surgical History History of amputation of toe (07/29/22) History of amputation of great toe (01/07/22) History of back surgery History of neck surgery History of ankle surgery H/O bilateral hip replacements S/P quadruple vessel bypass Social History Household Members: Spouse and Children Household Members Other:: 3 Housing: Apartment Are you a primary primary care sales representative to a significant other at home: No Do you presently have visiting nurse or other home services: No Alcohol intake: never Comment: refused bed or chair alarm Patient Tobacco Use Status: Former Tobacco user Tobacco use type: Cigarette Smoked in Last 30 Days: No Second Hand Smoke Exposure: No Use of substances other than those prescribed or required for medical reasons: No Substance Use Type: Marijuana Advance Directives: No Advance Directives Information Provided: Yes Advance Directives Date on File: 01/04/22 service: Yes Current occupational status: disabled Meds Allergies Allergy/AdvReac Type Severity Reaction Status Date / Time morphine AdvReac Intermediate Hallucinati Verified 03/23/25 10:24 ons Active Medications: Current Medications Acetaminophen (Acetaminophen 325 Mg Tablet) 650 mg PO Q6H PRN PRN Reason: Pain, Mild 1-3,fever,headache Calcium Carbonate (Calcium Carbonate 750 Mg Tab.Chew) 750 mg PO Q4H PRN PRN Reason: Heartburn Capsaicin (Capsaicin 0.025% Cream 60 Gm Tube) 1 appl TOPICAL QID PRN; Protocol PRN Reason: Pain, Mild 1-3,fever,headache Dextrose (Dextrose 50 % 25 Gm/50 Ml Syringe) 25 gm IVPUSH Q15M PRN; Protocol PRN Reason: per Hypoglycemia Standing Ord. Glucose (Glucose Gel 15 Gm Gel..Gram.) 15 gm PO Q15M PRN; Protocol PRN Reason: per Hypoglycemia Standing Ord. Hydralazine HCl (Hydralazine Hcl 20 Mg/Ml Vial) 10 mg IVPUSH Q6H PRN; Protocol PRN Reason: Htn Hydromorphone HCl (Hydromorphone Hcl 0.5 Mg/0.5 Ml Syringe) 0.5 mg IVPUSH Q4H PRN; Protocol PRN Reason: Pain, Severe (Pain Scale 7-10) Lactated Ringer's (Lr) 1,000 mls @ 100 mls/hr IVCONT .Q10H [facility] Insulin Human Lispro (Insulin Lispro 100 Unit/Ml 3 Ml Vial) 0 unit SUBCUT QIDACHS WILLIAM; Protocol Lidocaine (Lidocaine 4 % Patch Adh..Patch) 1 patch TRANSDERMA DAILY WILLIAM; Protocol Magnesium Hydroxide (Milk Of Magnesia 30 Ml Oral.Susp) 30 ml PO DAILY PRN PRN Reason: Constipation Melatonin (Melatonin 3 Mg Tablet) 6 mg PO BEDTIME PRN PRN Reason: Insomnia Metoclopramide HCl (Metoclopramide Hcl Oral Soln 10 Mg/10 Ml Solution) 10 mg PO TIDAC [facility] Ondansetron HCl (Ondansetron Hcl 4 Mg/2 Ml Vial) 4 mg IVPUSH Q6H PRN PRN Reason: Nausea and Vomiting Pantoprazole Sodium (Pantoprazole Sodium 40 Mg/10 Ml Vial) 40 mg IVPUSH BID@0630,1630 [facility] Sodium Chloride (0.9 % Sodium Chloride Flush 3 Ml Syringe) [facility] Medications ?Medication ?Instructions ?Recorded ?Confirmed ?Last Taken ?Type ezetimibe 10 mg tablet 10 mg PO BEDTIME 01/03/22 03/23/25 03/20/25 History gabapentin 300 mg capsule 300 mg PO TID 01/03/22 03/23/25 03/20/25 History insulin glargine 100 unit/mL 10 unit subcut BEDTIME 01/03/22 03/23/25 03/20/25 History subcutaneous solution (Lantus U-100 Insulin) isosorbide mononitrate 30 mg 30 mg PO DAILY 01/03/22 03/23/25 03/20/25 History tablet,extended release 24 hr loratadine 10 mg tablet 10 mg PO DAILY 01/03/22 03/23/25 03/20/25 History losartan 25 mg tablet 25 mg PO DAILY 01/03/22 03/23/25 03/20/25 History meclizine 25 mg tablet 25 mg PO TID PRN Dizziness Or 01/03/22 03/23/25 03/20/25 History Vertigo pantoprazole 40 mg tablet,delayed 40 mg PO BID@0630,1630 01/03/22 03/23/25 03/20/25 History release rosuvastatin 40 mg tablet 40 mg PO BEDTIME 01/03/22 03/23/25 03/20/25 History aspirin 81 mg tablet,delayed 81 mg PO DAILY 08/04/22 03/23/25 03/20/25 History release furosemide 20 mg tablet 20 mg PO DAILY 11/13/22 03/23/25 03/20/25 History metoprolol succinate 25 mg 25 mg PO DAILY 10/14/24 03/23/25 03/20/25 History tablet,extended release 24 hr insulin lispro 100 unit/mL See Protocol subcut QIDACHS 12/16/24 03/23/25 03/20/25 History subcutaneous solution oxycodone 10 mg tablet 10 mg PO Q4H PRN Pain 12/16/24 03/23/25 03/20/25 History rivaroxaban 20 mg tablet (Xarelto) 20 mg PO DAILY@1700 12/16/24 03/23/25 03/20/25 History insulin glargine 100 unit/mL 8 unit subcut DAILY 03/23/25 03/23/25 03/20/25 History subcutaneous solution (Lantus U-100 Insulin) venlafaxine 100 mg tablet 100 mg PO BID 03/23/25 03/23/25 03/20/25 History Physical Exam 2 Vital Signs and Narrative: Vital Signs: Last Vital Signs Temp 98.2 F 03/23/25 14:16 Pulse 118 H 03/23/25 16:33 Resp 19 03/23/25 16:33 BP 199/103 H 03/23/25 16:33 Pulse Ox 98 03/23/25 16:33 O2 Del Method Room Air 03/23/25 16:33 O2 Flow Rate 100 03/23/25 12:29 BMI result Body Mass Index 33.2 Appearance: Alert.? Oriented X3.? cvs: rrr, [id number] . res: clear to auscultation ,no rhonchii or wheezing abd:soft,epigastric discomfort, bs present. ext pulses present , no cyanosis . neuro: axo3 , nonfocal. Results Labs 03/23/25 10:54 03/23/25 10:54 Labs: Laboratory Results - last 24 hr 03/23/25 03/23/25 03/23/25 10:54 10:58 16:48 MCV 84.1 MCH 29.2 MCHC 34.8 RDW 13.5 Plt Count 271 D MPV 9.6 Immature Gran % (Auto) 0.5 H Neut % (Auto) 79.4 H Lymph % (Auto) 14.5 L Letcher % (Auto) 4.9 Eos % (Auto) 0.2 Baso % (Auto) 0.5 Lymph # (Auto) 1.9 Letcher # (Auto) 0.6 Eos # (Auto) 0.0 Baso # (Auto) 0.1 Abs Immat Gran (auto) 0.06 H Absolute Neuts (auto) 10.1 H Absolute Nucleated RBC 0.000 Nucleated RBC % (auto) 0.0 VBG pH 7.46 H VBG pCO2 25 VBG pO2 56 VBG HCO3 18 L VBG O2 Saturation 84.0 VBG Base Excess -3.3 Anion Gap 18 Estim Creat Clear Calc 135.1 Estimated GFR > 60 POC Glucose 285 H Random Glucose 265 H Calcium 9.1 D Total Bilirubin 0.9 AST 18 ALT 8 Alkaline Phosphatase 76 Total Protein 6.5 Albumin 4.0 Beta-Hydroxybutyrate 1.81 H Imaging Radiologist's Impressions: Impressions Abdomen X-Ray 03/23/25 13:02 IMPRESSION: Nonspecific air-fluid levels left hemiabdomen. Consider regional ileus. Electronically signed by: Jimmy Kaur MD 03/23/2025 01:15 PM EDT RP Assessment and Plan (1) Diabetic gastroparesis: Status: Acute 64-year-old male with a PMH significant for?insulin-dependent type 2 diabetes, diabetic gastroparesis, CAD s/p CABG in 2018, paroxysmal AFib on Xarelto, PVD, HTN, hx of osteomyelitis s/p amputation of 1st and 2nd left toes, and peripheral neuropathy who presents to the ED with?abdominal pain and N/V/D x3 days. Pt is admitted to the hospital under observation for treatment and further evaluation of acute on chronic diabetic gastroparesis with intractable N/V/D. Acute on chronic diabetic gastroparesis Pt with intractable N/V/D and epigastric burning abdominal pain x3 days Unable to tolerate p.o. Check stool studies, C diff-negative. kub -as above. continue maintenance fluids, ondansetron, Reglan, capsaicin cream, lidocaine patch, at Protonix Clear liquid diet, advance as tolerated Gi eval Mild leukocytosis: Likely reactive to nausea vomiting Denies any respiratory or urinary complaints continue cbc. Mild tachycardia-related to pain, no sepsis at present. Insulin-dependent type 2 diabetes with hyperglycemia No DKA: Beta hydroxybutyrate elevated at 1.8 s/p ivf plan: Place on sliding scale insulin,Continue adjusted Lantus(1/2 dosing since unable to take po) Diabetic diet once diet advanced Paroxysmal AFib Continue Xarelto(if does not tolerate po will change to lovenox), metoprolol CAD/HLD Start once able to take p.o. statin, ezetimibe HTN Start once able to take p.o.- losartan, added IV hydralazine for now Mood disorder/sad /depressed Unable to take p.o. yet- venlafaxine Full Code DVT Prophylaxis: Lovenox. Patient will benefit from 2 midnight stay: for the treatment and further evaluation of acute on chronic diabetic gastroparesis with intractable N/V/D. Given that pt is not tolerating p.o. at this time, pt will require hospital level care for administration of IV antiemetics, analgesics, and fluids. GI evaluation. Above management discussed with the patient and his in detail length at bedside, they both understand and in agreement with the above plan, time spent 70 minute, all question answered. Quality Stroke Does the patient have a stroke diagnosis?: No VTE Prior VTE?: No VTE Risk Level:: Medical - moderate - high VTE Device Contraindication: N/A - Device Ordered VTE Drug Contraindication: N/A - Med Ordered
[2025-03-23] MEDS: Enoxaparin Sodium 100 MG/ML SYRINGE SUBCUT (17:53)
[2025-03-23] MEDS: Lidocaine 4 % Patch ADH..PATCH 1 PATCH TRANSDERMA (17:53)
[2025-03-23] MEDS: Insulin Lispro 100 UNIT/ML 3 ML VIAL SUBCUT ×2 (17:55→21:34)
[2025-03-23] MEDS: Lactated Ringers 1,000 ML 100 ML IVCONT (17:55)
[2025-03-23] MEDS: Pantoprazole Sodium 40 MG/10 ML VIAL IVPUSH (17:55)
[2025-03-23] MEDS: HYDROmorphone HCl 0.5 MG/0.5 ML SYRINGE IVPUSH ×2 (17:55→21:19)
--- NOTE | 2025-03-23 19:00 | PC.NURSE ---
htn medication perimeter Per dr bean pts bp to be 160 and above for the med to be given
[2025-03-23 20:29] LABS: Anion Gap 14 (12-20); Blood Urea Nitrogen 7 mg/dL (9-16); Calcium 9.3 mg/dL (8.4-10.2); Carbon Dioxide 21 mmol/L (22-29); Chloride 109 mmol/L (96-108); Estimated Glomerular Filt Rate > 60; Glucose Random 258 mg/dL (60-115); Potassium 4.7 mmol/L (3.3-5.1); Sodium 139 mmol/L (135-145)
[2025-03-23] MEDS: Gabapentin 300 MG CAPSULE PO (21:14)
[2025-03-23] MEDS: Atorvastatin Calcium 80 MG TABLET PO (21:14)
[2025-03-23] MEDS: Ezetimibe 10 MG TABLET PO (21:14)
[2025-03-23] MEDS: Metoclopramide HCl 10 MG/2 ML VIAL 5 MG IVPUSH (21:14)
[2025-03-23 21:29] LABS: Glucose, Whole Blood 218 mg/dL (60-115)
[2025-03-23] MEDS: Venlafaxine HCL 25 MG TABLET 100 MG PO (22:19)
[2025-03-24] VITALS (10 sets, daily range): BP systolic 115–152; BP diastolic 65–90; PULSE 67–96; RESP 14–18; TEMP 36.1–36.7; O2SAT 94–99
[2025-03-24] MEDS: HYDROmorphone HCl 0.5 MG/0.5 ML SYRINGE IVPUSH ×5 (01:05→20:06)
[2025-03-24] MEDS: Lactated Ringers 1,000 ML 100 ML IVCONT ×3 (03:36→22:32)
[2025-03-24] MEDS: Enoxaparin Sodium 100 MG/ML SYRINGE SUBCUT ×2 (05:46→17:34)
[2025-03-24] MEDS: Pantoprazole Sodium 40 MG/10 ML VIAL IVPUSH ×2 (05:46→16:08)
[2025-03-24 05:49] LABS: Hematocrit 36.7 % (42.0-52.0); Hemoglobin 12.6 g/dl (14.0-18.0); Mean Corpuscular HGB Conc 34.3 g/dl (31.0-36.0); Mean Corpuscular Volume 84.4 fL (80.0-98.0); Mean Platelet Volume 9.7 fL (9.4-12.4); Platelet Count 281 X10*3/uL (160-400); Red Blood Count 4.35 X10*6/uL (4.60-5.80); Red Cell Distribution Width 13.9 % (11.0-16.0); White Blood Count 11.4 X10*3/uL (4.8-10.8)
[2025-03-24 06:03] LABS: Anion Gap 11 (12-20); Blood Urea Nitrogen 9 mg/dL (9-16); Calcium 9.2 mg/dL (8.4-10.2); Carbon Dioxide 22 mmol/L (22-29); Chloride 110 mmol/L (96-108); Creatinine Clr Calc Pharmacy 154.7; Estimated Glomerular Filt Rate > 60; Glucose Random 157 mg/dL (60-115); Potassium 3.5 mmol/L (3.3-5.1); Sodium 139 mmol/L (135-145)
--- NOTE | 2025-03-24 07:19 | PC.NURSE ---
Addendum entered by Meghna Vo RN 03/24/25 07:52: Patient presents with c/o mid abdominal pain with assoc n/v/d. Alert and oriented. court monitor maintained and NSR noted. Lungs esssentially clear bilat. Respirations even and non-labored. Abdomen obese, soft with positive bowel sounds. c/o generalized mid abdominal pain. No signiicant tenderness noted. Positive pedal pulses with LE edema. Abd xray shows Nonspecific air-fluid levels left hemiabdomen. Consider regional ileus. Pending bed assignment. Original Note: Medical History PVD (peripheral vascular disease) Gastroparesis DKA (diabetic ketoacidosis) Obesity (BMI 30-39.9) PAD (peripheral artery disease) Afib Amputation of left great toe Lower limb amputation, great toe CAD (coronary artery disease) DMII (diabetes mellitus, type 2) Orthopedic hardware present Hyperglycemia Cellulitis Asthma Diabetes Hypertension FHx: bilateral hip replacem
[2025-03-24 07:29] LABS: Glucose, Whole Blood 190 mg/dL (60-115)
[2025-03-24] MEDS: Insulin Lispro 100 UNIT/ML 3 ML VIAL SUBCUT ×2 (07:48→17:34)
[2025-03-24] MEDS: Lidocaine 4 % Patch ADH..PATCH 1 PATCH TRANSDERMA (08:24)
[2025-03-24] MEDS: Isosorbide Mononitrate 30 MG TAB.ER.24H PO (08:25)
[2025-03-24] MEDS: Furosemide 20 MG TABLET PO (08:25)
[2025-03-24] MEDS: Metoclopramide HCl 10 MG/2 ML VIAL 5 MG IVPUSH ×3 (08:25→21:05)
[2025-03-24] MEDS: Loratadine 10 MG TABLET PO (08:26)
[2025-03-24] MEDS: Metoprolol Succinate ER 25 MG TAB.ER.24H PO (08:26)
[2025-03-24] MEDS: Aspirin Enteric Coated 81 MG TABLET.DR PO (08:26)
[2025-03-24] MEDS: Gabapentin 300 MG CAPSULE PO ×3 (08:27→21:06)
[2025-03-24] MEDS: 0.9 % Sodium Chloride Flush 3 ML SYRINGE IVFLUSH ×2 (08:27→15:57)
[2025-03-24] MEDS: ondansetron HCL 4 MG/2 ML VIAL IVPUSH ×2 (11:08→19:32)
--- NOTE | 2025-03-24 11:28 | MHC.CM.PN ---
Pt. lives with his , he does not have home health services or use DME. PCP confirmed: Trent Bird, HCP discussed, pt. will complete form here and it will be added to chart. to transport home at DC, DCP: home, self care. CM to follow for DC needs.
[2025-03-24] MEDS: Venlafaxine HCL 25 MG TABLET 100 MG PO (11:40)
[2025-03-24 11:55] LABS: Glucose, Whole Blood 167 mg/dL (60-115)
--- NOTE | 2025-03-24 13:23 | MHC.EDTECH ---
pt ate 40% of lunch tray
--- NOTE | 2025-03-24 14:36 | HO.PM.IMPN ---
Subjective Subjective Date of Service: 03/24/25 Interval History: dm gasteroparesis Review of Systems has nausea /vomiting abd soarness no diarrhae Review of Systems: Yes all other systems are reviewed and are negative Physical Exam Vital Signs: Vital Signs: Last Vital Signs Temp 98.0 F 03/24/25 12:30 Pulse 79 03/24/25 12:30 Resp 15 03/24/25 12:30 BP 115/67 03/24/25 12:30 Pulse Ox 96 03/24/25 12:30 O2 Del Method Room Air 03/24/25 12:30 O2 Flow Rate 100 03/23/25 12:29 BMI result Body Mass Index 33.2 Appearance: Alert.? Oriented X3.? cvs: rrr, [id number] . res: clear to auscultation ,no rhonchii or wheezing abd:soft,epigastric discomfort, bs present. ext pulses present , no cyanosis . neuro: axo3 , nonfocal. Objective Data Active Medications Acetaminophen (Acetaminophen 325 Mg Tablet) 650 mg PO Q6H PRN PRN Reason: Pain, Mild 1-3,fever,headache Aspirin (Aspirin Enteric Coated 81 Mg Tablet.) 81 mg PO DAILY [facility] Last Admin: 03/24/25 08:26 Dose: 81 mg Documented By: SHARLENE Atorvastatin Calcium (Atorvastatin Calcium 80 Mg Tablet) 80 mg PO BEDTIME [facility] Last Admin: 03/23/25 21:14 Dose: 80 mg Documented By: IRAJ Calcium Carbonate (Calcium Carbonate 750 Mg Tab.Chew) 750 mg PO Q4H PRN PRN Reason: Heartburn Capsaicin (Capsaicin 0.025% Cream 60 Gm Tube) 1 appl TOPICAL QID PRN; Protocol PRN Reason: Pain, Mild 1-3,fever,headache Dextrose (Dextrose 50 % 25 Gm/50 Ml Syringe) 25 gm IVPUSH Q15M PRN; Protocol PRN Reason: per Hypoglycemia Standing Ord. Ezetimibe (Ezetimibe 10 Mg Tablet) 10 mg PO BEDTIME [facility] Last Admin: 03/23/25 21:14 Dose: 10 mg Documented By: IRAJ Enoxaparin Sodium (Enoxaparin Sodium 100 Mg/Ml Syringe) 100 mg SUBCUT Q12H [facility] Last Admin: 03/24/25 05:46 Dose: 100 mg Documented By: IRAJ Furosemide (Furosemide 20 Mg Tablet) 20 mg PO DAILY [facility]; Protocol Last Admin: 03/24/25 08:25 Dose: 20 mg Documented By: SHARLENE Gabapentin (Gabapentin 300 Mg Capsule) 300 mg PO TID [facility] Last Admin: 03/24/25 08:27 Dose: 300 mg Documented By: SHARLENE Glucose (Glucose Gel 15 Gm Gel..Gram.) 15 gm PO Q15M PRN; Protocol PRN Reason: per Hypoglycemia Standing Ord. Hydralazine HCl (Hydralazine Hcl 20 Mg/Ml Vial) 10 mg IVPUSH Q6H PRN; Protocol PRN Reason: Htn Hydromorphone HCl (Hydromorphone Hcl 0.5 Mg/0.5 Ml Syringe) 0.5 mg IVPUSH Q4H PRN; Protocol PRN Reason: Pain, Severe (Pain Scale 7-10) Last Admin: 03/24/25 09:38 Dose: 0.5 mg Documented By: SHARLENE Lactated Ringer's (Lr) 1,000 mls @ 100 mls/hr IVCONT .Q10H [facility] Last Admin: 03/24/25 13:24 Dose: 100 mls/hr Documented By: SHARLENE Insulin Human Lispro (Insulin Lispro 100 Unit/Ml 3 Ml Vial) 0 unit SUBCUT QIDACHS [facility]; Protocol Last Admin: 03/24/25 12:22 Dose: Not Given Documented By: SHARLENE Non-Admin Reason: No Insulin Coverage Isosorbide Mononitrate (Isosorbide Mononitrate 30 Mg Tab.Er.24h) 30 mg PO DAILY [facility]; Protocol Last Admin: 03/24/25 08:25 Dose: 30 mg Documented By: SHARLENE Lidocaine (Lidocaine 4 % Patch Adh..Patch) 1 patch TRANSDERMA DAILY [facility]; Protocol Last Admin: 03/24/25 08:24 Dose: 1 patch Documented By: SHARLENE Loratadine (Loratadine 10 Mg Tablet) 10 mg PO DAILY [facility] Last Admin: 03/24/25 08:26 Dose: 10 mg Documented By: SHARLENE Magnesium Hydroxide (Milk Of Magnesia 30 Ml Oral.Susp) 30 ml PO DAILY PRN PRN Reason: Constipation Meclizine HCl (Meclizine Hcl 25 Mg Tablet) 25 mg PO TID PRN PRN Reason: Dizziness Or Vertigo Melatonin (Melatonin 3 Mg Tablet) 6 mg PO BEDTIME PRN PRN Reason: Insomnia Metoclopramide HCl (Metoclopramide Hcl 10 Mg/2 Ml Vial) 5 mg IVPUSH TID [facility] Last Admin: 03/24/25 08:25 Dose: 5 mg Documented By: SHARLENE Metoprolol Succinate (Metoprolol Succinate Er 25 Mg Tab.Er.24h) 25 mg PO DAILY [facility]; Protocol Last Admin: 03/24/25 08:26 Dose: 25 mg Documented By: SHARLENE Ondansetron HCl (Ondansetron Hcl 4 Mg/2 Ml Vial) 4 mg IVPUSH Q6H PRN PRN Reason: Nausea and Vomiting Last Admin: 03/24/25 11:08 Dose: 4 mg Documented By: SHARLENE Pantoprazole Sodium (Pantoprazole Sodium 40 Mg/10 Ml Vial) 40 mg IVPUSH BID@0630,1630 [facility] Last Admin: 03/24/25 05:46 Dose: 40 mg Documented By: YUE-CREDM Sodium Chloride (0.9 % Sodium Chloride Flush 3 Ml Syringe) 3 ml IVFLUSH QSHIFT [facility] Last Admin: 03/24/25 08:27 Dose: 3 ml Documented By: SHARLENE Venlafaxine HCl (Venlafaxine Hcl 25 Mg Tablet) 100 mg PO BID [facility] Last Admin: 03/24/25 11:40 Dose: 100 mg Documented By: SHARLENE Labs 03/24/25 04:26 03/24/25 04:26 Labs: Laboratory Results - last 24 hr 03/23/25 03/23/25 03/23/25 10:54 16:48 20:09 MCV MCH MCHC RDW Plt Count MPV Absolute Nucleated RBC Nucleated RBC % (auto) Anion Gap 14 Estim Creat Clear Calc 127.0 Estimated GFR > 60 POC Glucose 285 H Random Glucose 258 H Calcium 9.3 Beta-Hydroxybutyrate 1.81 H 03/23/25 03/24/25 03/24/25 21:23 04:26 07:25 MCV 84.4 MCH 29.0 MCHC 34.3 RDW 13.9 Plt Count 281 MPV 9.7 Absolute Nucleated RBC 0.000 Nucleated RBC % (auto) 0.0 Anion Gap 11 L Estim Creat Clear Calc 154.7 Estimated GFR > 60 POC Glucose 218 H 190 H Random Glucose 157 H Calcium 9.2 Beta-Hydroxybutyrate 03/24/25 11:50 MCV MCH MCHC RDW Plt Count MPV Absolute Nucleated RBC Nucleated RBC % (auto) Anion Gap Estim Creat Clear Calc Estimated GFR POC Glucose 167 H Random Glucose Calcium Beta-Hydroxybutyrate Assessment and Plan (1) Diabetic gastroparesis: Status: Acute Plan 64-year-old male with a PMH significant for?insulin-dependent type 2 diabetes, diabetic gastroparesis, CAD s/p CABG in 2018, paroxysmal AFib on Xarelto, PVD, HTN, hx of osteomyelitis s/p amputation of 1st and 2nd left toes, and peripheral neuropathy who presents to the ED with?abdominal pain and N/V/D x3 days. Pt is admitted to the hospital under observation for treatment and further evaluation of acute on chronic diabetic gastroparesis with intractable N/V/D. Acute on chronic diabetic gastroparesis Pt with intractable N/V/D and epigastric burning abdominal pain x3 days Unable to tolerate p.o. Check stool studies, C [id number] stool sample yet kub -as above. continue maintenance fluids, ondansetron, Reglan, capsaicin cream, lidocaine patch, at Protonix Clear liquid diet, advance as tolerated Gi eval Mild leukocytosis: improivng,Likely reactive to nausea vomiting Denies any respiratory or urinary complaints continue cbc. Mild tachycardia-improved. Insulin-dependent type 2 diabetes with hyperglycemia No DKA: Beta hydroxybutyrate elevated at 1.8 s/p ivf plan: Place on sliding scale insulin,Continue adjusted Lantus(1/2 dosing since unable to take po) Diabetic diet once diet advanced Paroxysmal AFib Continue Xarelto(if does not tolerate po will change to lovenox), metoprolol CAD/HLD continue p.o. statin, ezetimibe HTN continue p.o.- losartan, added IV hydralazine for now Mood disorder/sad /depressed continue venlafaxine ongoing need :Acute on chronic diabetic gastroparesis -need iv fluids,ppi/antiemtics ,unable to tolerate po yet ,gi eval Quality Stroke Does the patient have a stroke diagnosis?: No VTE Prior VTE?: No VTE Risk Level:: Medical - moderate - high VTE Device Contraindication: N/A - Device Ordered VTE Drug Contraindication: N/A - Med Ordered
[2025-03-24 17:24] LABS: Glucose, Whole Blood 187 mg/dL (60-115)
--- NOTE | 2025-03-24 18:02 | P.CNGI_ITS ---
History of Present Illness Data of Consult Service Date: 03/24/25 Requesting physician: Roni Hall Primary Care Provider: Unknown Physician HPI Reason for consult: Nausea, vomiting, gastroparesis 64-year-old male with history of presumed diabetic gastroparesis with multiple recurrent admissions -came with nausea vomiting and afterwards had some mild abdominal discomfort, feeling generalized weak, he says his presentation is similar to last time when he was treated for gastroparesis. He denies any aggravating or elevating food or any factors. Denies any urinary complaints or shortness of breath or cough or fever or chills. Patient has had this time nausea vomiting started 2 days back, also had 3 episode of liquid stool . Last BM today. Abdominal pain mostly in the epigastric area specially with the vomiting. Has mild tachycardia and elevated blood pressure, did not take his blood pressure medication today. Mild leukocytosis of 12.4. Did not eat or drink well at least a day or so. Labs: Renal function electrolytes normal, bicarb is 18, anion gap normal, pH is also normal. Has mild elevated in b-oxybutrate 1.8 (which is better than before.) Pt denies smoking or ETOH abuse. He uses Marijuana once a week and denies using it daily Pt reports having an EGD and colon at [facility] [place] per pt endoscopic evaluation was negative. 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 03/23/25 KUB SHOWED: Nonspecific air-fluid levels left hemiabdomen. Consider regional ileus. Review of Systems 2 Review of Systems: As above. Yes all other systems are reviewed and are negative [facility] Past Medical History Medical History (Updated 03/24/25 @ 15:09 by Lalita Mckeon) PVD (peripheral vascular disease) Gastroparesis DKA (diabetic ketoacidosis) Obesity (BMI 30-39.9) PAD (peripheral artery disease) Afib Amputation of left great toe Lower limb amputation, great toe CAD (coronary artery disease) DMII (diabetes mellitus, type 2) Orthopedic hardware present Hyperglycemia Cellulitis Asthma Diabetes Hypertension FHx: bilateral hip replacements Family History Family History Other No family history of coronary artery disease Surgical History Surgical History History of amputation of toe (07/29/22) History of amputation of great toe (01/07/22) History of back surgery History of neck surgery History of ankle surgery H/O bilateral hip replacements S/P quadruple vessel bypass Social History Social History Household Members: Spouse Household Members Other:: 3 Housing: Apartment Are you a primary pediatric acute care unit nurse to a significant other at home: No Do you presently have visiting nurse or other home services: No Alcohol intake: never Comment: refused bed or chair alarm Patient Tobacco Use Status: Former Tobacco user Tobacco use type: Cigarette e-Cigarette/Vaping Use: Never Used Second Hand Smoke Exposure: No Substance Use Type: Marijuana Advance Directives Date on File: 01/04/22 service: No Current occupational status: disabled Meds Allergies Allergy/AdvReac Type Severity Reaction Status Date / Time morphine AdvReac Intermediate Hallucinati Verified 03/23/25 10:24 ons Active Medications: Current Medications Acetaminophen (Acetaminophen 325 Mg Tablet) 650 mg PO Q6H PRN PRN Reason: Pain, Mild 1-3,fever,headache Aspirin (Aspirin Enteric Coated 81 Mg Tablet.) 81 mg PO DAILY [facility] Last Admin: 03/24/25 08:26 Dose: 81 mg Atorvastatin Calcium (Atorvastatin Calcium 80 Mg Tablet) 80 mg PO BEDTIME [facility] Last Admin: 03/23/25 21:14 Dose: 80 mg Calcium Carbonate (Calcium Carbonate 750 Mg Tab.Chew) 750 mg PO Q4H PRN PRN Reason: Heartburn Capsaicin (Capsaicin 0.025% Cream 60 Gm Tube) 1 appl TOPICAL QID PRN; Protocol PRN Reason: Pain, Mild 1-3,fever,headache Dextrose (Dextrose 50 % 25 Gm/50 Ml Syringe) 25 gm IVPUSH Q15M PRN; Protocol PRN Reason: per Hypoglycemia Standing Ord. Ezetimibe (Ezetimibe 10 Mg Tablet) 10 mg PO BEDTIME [facility] Last Admin: 03/23/25 21:14 Dose: 10 mg Enoxaparin Sodium (Enoxaparin Sodium 100 Mg/Ml Syringe) 100 mg SUBCUT Q12H [facility] Last Admin: 03/24/25 17:34 Dose: 100 mg Furosemide (Furosemide 20 Mg Tablet) 20 mg PO DAILY [facility]; Protocol Last Admin: 03/24/25 08:25 Dose: 20 mg Gabapentin (Gabapentin 300 Mg Capsule) 300 mg PO TID [facility] Last Admin: 03/24/25 15:56 Dose: 300 mg Glucose (Glucose Gel 15 Gm Gel..Gram.) 15 gm PO Q15M PRN; Protocol PRN Reason: per Hypoglycemia Standing Ord. Hydralazine HCl (Hydralazine Hcl 20 Mg/Ml Vial) 10 mg IVPUSH Q6H PRN; Protocol PRN Reason: Htn Hydromorphone HCl (Hydromorphone Hcl 0.5 Mg/0.5 Ml Syringe) 0.5 mg IVPUSH Q4H PRN; Protocol PRN Reason: Pain, Severe (Pain Scale 7-10) Last Admin: 03/24/25 15:57 Dose: 0.5 mg Lactated Ringer's (Lr) 1,000 mls @ 100 mls/hr IVCONT .Q10H [facility] Last Admin: 03/24/25 13:24 Dose: 100 mls/hr Insulin Human Lispro (Insulin Lispro 100 Unit/Ml 3 Ml Vial) 0 unit SUBCUT QIDACHS [facility]; Protocol Last Admin: 03/24/25 17:34 Dose: 2 unit Isosorbide Mononitrate (Isosorbide Mononitrate 30 Mg Tab.Er.24h) 30 mg PO DAILY [facility]; Protocol Last Admin: 03/24/25 08:25 Dose: 30 mg Lidocaine (Lidocaine 4 % Patch Adh..Patch) 1 patch TRANSDERMA DAILY [facility]; Protocol Last Admin: 03/24/25 08:24 Dose: 1 patch Loratadine (Loratadine 10 Mg Tablet) 10 mg PO DAILY [facility] Last Admin: 03/24/25 08:26 Dose: 10 mg Magnesium Hydroxide (Milk Of Magnesia 30 Ml Oral.Susp) 30 ml PO DAILY PRN PRN Reason: Constipation Meclizine HCl (Meclizine Hcl 25 Mg Tablet) 25 mg PO TID PRN PRN Reason: Dizziness Or Vertigo Melatonin (Melatonin 3 Mg Tablet) 6 mg PO BEDTIME PRN PRN Reason: Insomnia Metoclopramide HCl (Metoclopramide Hcl 10 Mg/2 Ml Vial) 5 mg IVPUSH TID [facility] Last Admin: 03/24/25 15:56 Dose: 5 mg Metoprolol Succinate (Metoprolol Succinate Er 25 Mg Tab.Er.24h) 25 mg PO DAILY [facility]; Protocol Last Admin: 03/24/25 08:26 Dose: 25 mg Ondansetron HCl (Ondansetron Hcl 4 Mg/2 Ml Vial) 4 mg IVPUSH Q6H PRN PRN Reason: Nausea and Vomiting Last Admin: 03/24/25 11:08 Dose: 4 mg Pantoprazole Sodium (Pantoprazole Sodium 40 Mg/10 Ml Vial) 40 mg IVPUSH BID@0630,1630 [facility] Last Admin: 03/24/25 16:08 Dose: 40 mg Sodium Chloride (0.9 % Sodium Chloride Flush 3 Ml Syringe) 3 ml IVFLUSH QSHIFT [facility] Last Admin: 03/24/25 15:57 Dose: 3 ml Venlafaxine HCl (Venlafaxine Hcl 25 Mg Tablet) 50 mg PO BID [facility] Home Medications ?Medication ?Instructions ?Recorded ?Confirmed ?Last Taken ?Type ezetimibe 10 mg tablet 10 mg PO BEDTIME 01/03/22 03/23/25 03/20/25 History gabapentin 300 mg capsule 300 mg PO TID 01/03/22 03/23/25 03/20/25 History insulin glargine 100 unit/mL 10 unit subcut BEDTIME 01/03/22 03/23/25 03/20/25 History subcutaneous solution (Lantus U-100 Insulin) isosorbide mononitrate 30 mg 30 mg PO DAILY 01/03/22 03/23/25 03/20/25 History tablet,extended release 24 hr loratadine 10 mg tablet 10 mg PO DAILY 01/03/22 03/23/25 03/20/25 History losartan 25 mg tablet 25 mg PO DAILY 01/03/22 03/23/25 03/20/25 History meclizine 25 mg tablet 25 mg PO TID PRN Dizziness Or 01/03/22 03/23/25 03/20/25 History Vertigo pantoprazole 40 mg tablet,delayed 40 mg PO BID@0630,1630 01/03/22 03/23/25 03/20/25 History release rosuvastatin 40 mg tablet 40 mg PO BEDTIME 01/03/22 03/23/25 03/20/25 History aspirin 81 mg tablet,delayed 81 mg PO DAILY 08/04/22 03/23/25 03/20/25 History release furosemide 20 mg tablet 20 mg PO DAILY 11/13/22 03/23/25 03/20/25 History metoprolol succinate 25 mg 25 mg PO DAILY 10/14/24 03/23/25 03/20/25 History tablet,extended release 24 hr insulin lispro 100 unit/mL See Protocol subcut QIDACHS 12/16/24 03/23/25 03/20/25 History subcutaneous solution oxycodone 10 mg tablet 10 mg PO Q4H PRN Pain 12/16/24 03/23/25 03/20/25 History rivaroxaban 20 mg tablet (Xarelto) 20 mg PO DAILY@1700 12/16/24 03/23/25 03/20/25 History insulin glargine 100 unit/mL 8 unit subcut DAILY 03/23/25 03/23/25 03/20/25 History subcutaneous solution (Lantus U-100 Insulin) venlafaxine 100 mg tablet 100 mg PO BID 03/23/25 03/23/25 03/20/25 History Physical Exam 2 Vital Signs: Vital Signs: Last Vital Signs Temp 96.9 F 03/24/25 15:28 Pulse 72 03/24/25 15:28 Resp 18 03/24/25 15:28 BP 151/72 H 03/24/25 15:28 Pulse Ox 98 03/24/25 15:28 O2 Del Method Room Air 03/24/25 15:28 O2 Flow Rate 100 03/23/25 12:29 BMI result Body Mass Index 33.2 Const: General: no acute distress Nutritional Appearance: obese O rientation/consciousness: patient oriented x3 HEENT: Head: Yes normal to inspection Ears: hearing grossly normal bilaterally Mouth: Normal oral and palatal mucosa present Eyes: Sclerae: sclerae normal Pupils: Equal, round and reactive pupils present Neck: Neck: Yes normal visual inspection Chest: Chest palpation & inspection: normal inspection of the chest Resp: Effort & Inspection: normal respiratory effort Auscultation: clear to auscultation bilaterally Cardio: Palpation: normal PMI Rate: regular rate Rhythm: regular rhythm Heart sounds: S1 normal heart sound present, S2 normal heart sound present and no murmurs GI: Palpation (GI): Soft to palpation, Tenderness to palpation present (GI) (Mild to moderate diffuse abd tenderness) and No hepatosplenomegaly present A uscultation: normal bowel sounds Rectal Exam - Male: Yes deferred Skin: General skin exam: no rashes or lesions noted Neuro: General: patient oriented x3, gait normal and moves all extremities Cranial nerves: Yes Equal, round and reactive pupils present Psych: Appearance: grossly normal Mental Status: mental status grossly normal Results Labs 03/24/25 04:26 03/25/25 05:54 Labs: Short CBC 03/24/25 Range/Units 04:26 WBC 11.4 H (4.8-10.8) X10*3/uL Hgb 12.6 L (14.0-18.0) g/dl Hct 36.7 L (42.0-52.0) % Plt Count 281 (160-400) X10*3/uL BMP 03/23/25 03/24/25 20:09 04:26 Sodium 139 139 Potassium 4.7 D 3.5 D Chloride 109 H 110 H Carbon Dioxide 21 L 22 BUN 7 L 9 Creatinine 0.67 0.55 Calcium 9.3 9.2 Assessment and Plan (1) Diabetic gastroparesis: Status: Acute (2) Abdominal pain: Status: Acute (3) Intractable nausea and vomiting: Status: Acute Plan 64 YM with type 2 diabetes with Gastroparesis and neuropathy, CAD status post CABG in 2018, CHF, PVD, osteomyelitis and left great toe amputation, atrial fibrillation on Xarelto, intermittent asthma [place] [facility] and vomting. Pt reports intermittent episodes of upper abd pain with nausea and vomiting usually associated with diabetic ketoacidosis. Pt states episodes start with nausea and vomiting followed by upper abdominal pain. Patient [place] [facility] with similar episode associated with diabetic ketoacidosis that was euglycemic due to Farxiga which has since been discontinued. He reports feeling well in the interim. Pt symptoms are likely due to ketoacidosis versus gastroparesis. Cannabis hyperemesis syndrome would be less likely if he is using Marijuana once a week. RECOMMENDATIONS: 1. Agree with IV fluids, IV PPI, pain medications and antiemetics 2. Continue IV metoclopramide for gastroparesis 3. Resume PO as per DKA protocol 4. If symptoms do not improve, OK to switch to Erythromycin 250 mg IV TID 30 min before meals in place of metoclopramide 5. EGD if abd pain and vomiting persist despite resolution of DKA - tentatively scheduled on 03/28/25. 6. Gastric emptying study as outpatient once episode of nausea and vomiting subsides. Procedures Date of Service Date of Service: 03/26/25
[2025-03-24 20:30] LABS: Glucose, Whole Blood 144 mg/dL (60-115)
[2025-03-24] MEDS: Ezetimibe 10 MG TABLET PO (21:06)
[2025-03-24] MEDS: Atorvastatin Calcium 80 MG TABLET PO (21:06)
[2025-03-24] MEDS: Venlafaxine HCL 25 MG TABLET 50 MG PO (21:06)
[2025-03-25] MEDS: HYDROmorphone HCl 0.5 MG/0.5 ML SYRINGE IVPUSH ×6 (00:03→21:48)
[2025-03-25 03:12] VITALS: BP 108/57; PULSE 76; RESP 20; TEMP 36.6; O2SAT 95
[2025-03-25] MEDS: ondansetron HCL 4 MG/2 ML VIAL IVPUSH ×2 (04:06→12:29)
[2025-03-25] MEDS: Pantoprazole Sodium 40 MG/10 ML VIAL IVPUSH ×2 (05:30→16:16)
[2025-03-25] MEDS: Enoxaparin Sodium 100 MG/ML SYRINGE SUBCUT (05:30)
[2025-03-25 07:14] LABS: Anion Gap 10 (12-20); Blood Urea Nitrogen 11 mg/dL (9-16); Calcium 8.7 mg/dL (8.4-10.2); Carbon Dioxide 25 mmol/L (22-29); Chloride 109 mmol/L (96-108); Creatinine Clr Calc Pharmacy 141.8; Estimated Glomerular Filt Rate > 60; Glucose Random 158 mg/dL (60-115); Potassium 3.5 mmol/L (3.3-5.1); Sodium 140 mmol/L (135-145)
[2025-03-25 07:23] LABS: Glucose, Whole Blood 157 mg/dL (60-115)
[2025-03-25 07:40] VITALS: BP 168/78; PULSE 71; RESP 17; TEMP 36.6; O2SAT 96
[2025-03-25 08:02] LABS: Magnesium 1.8 mg/dL (1.6-2.6)
[2025-03-25] MEDS: Lidocaine 4 % Patch ADH..PATCH 1 PATCH TRANSDERMA (08:06)
[2025-03-25] MEDS: 0.9 % Sodium Chloride Flush 3 ML SYRINGE IVFLUSH ×2 (08:06→21:48)
[2025-03-25] MEDS: Metoclopramide HCl 10 MG/2 ML VIAL 5 MG IVPUSH ×3 (08:07→21:47)
[2025-03-25] MEDS: Isosorbide Mononitrate 30 MG TAB.ER.24H PO (08:07)
[2025-03-25] MEDS: Aspirin Enteric Coated 81 MG TABLET.DR PO (08:07)
[2025-03-25] MEDS: Gabapentin 300 MG CAPSULE PO ×3 (08:08→21:47)
[2025-03-25] MEDS: Metoprolol Succinate ER 25 MG TAB.ER.24H PO (08:08)
[2025-03-25] MEDS: Venlafaxine HCL 25 MG TABLET 50 MG PO ×2 (08:08→21:47)
[2025-03-25] MEDS: Loratadine 10 MG TABLET PO (08:08)
[2025-03-25] MEDS: Furosemide 20 MG TABLET PO (08:08)
[2025-03-25] MEDS: Insulin Lispro 100 UNIT/ML 3 ML VIAL SUBCUT ×3 (08:17→17:00)
[2025-03-25] MEDS: Lactated Ringers 1,000 ML 100 ML IVCONT (08:21)
--- NOTE | 2025-03-25 10:41 | MHC.CLN ---
NUTRITION WEIGHT HX SHOWS WEIGHT LOSS X 3 MONTHS=8.8%. DIET=CLEAR LIQUIDS. PATIENT WITH GASTROPARESIS. RD TO MONITOR WEEKLY FOR PO INTAKE.
[2025-03-25 11:09] LABS: Glucose, Whole Blood 162 mg/dL (60-115)
--- NOTE | 2025-03-25 15:42 | P.PNIM_ITS ---
Subjective Subjective Date of Service: 03/25/25 Interval History: dm gasteroparesis Review of Systems po intake very little no fevers Review of Systems: Yes all other systems are reviewed and are negative Physical Exam 2 Vital Signs: Vital Signs: Last Vital Signs Temp 98 F 03/25/25 07:40 Pulse 71 03/25/25 07:40 Resp 17 03/25/25 07:40 BP 168/78 H 03/25/25 07:40 Pulse Ox 96 03/25/25 07:40 O2 Del Method Room Air 03/25/25 07:40 O2 Flow Rate 100 03/23/25 12:29 BMI result Body Mass Index 33.2 Appearance: Alert.? Oriented X3.? cvs: rrr, [id number] . res: clear to auscultation ,no rhonchii or wheezing abd:soft,epigastric discomfort, bs present. ext pulses present , no cyanosis . neuro: axo3 , nonfocal. Objective Data Active Medications Acetaminophen (Acetaminophen 325 Mg Tablet) 650 mg PO Q6H PRN PRN Reason: Pain, Mild 1-3,fever,headache Aspirin (Aspirin Enteric Coated 81 Mg Tablet.) 81 mg PO DAILY [facility] Last Admin: 03/25/25 08:07 Dose: 81 mg Documented By: SUZANNE Atorvastatin Calcium (Atorvastatin Calcium 80 Mg Tablet) 80 mg PO BEDTIME [facility] Last Admin: 03/24/25 21:06 Dose: 80 mg Documented By: KLAUDIA Calcium Carbonate (Calcium Carbonate 750 Mg Tab.Chew) 750 mg PO Q4H PRN PRN Reason: Heartburn Capsaicin (Capsaicin 0.025% Cream 60 Gm Tube) 1 appl TOPICAL QID PRN; Protocol PRN Reason: Pain, Mild 1-3,fever,headache Dextrose (Dextrose 50 % 25 Gm/50 Ml Syringe) 25 gm IVPUSH Q15M PRN; Protocol PRN Reason: per Hypoglycemia Standing Ord. Ezetimibe (Ezetimibe 10 Mg Tablet) 10 mg PO BEDTIME [facility] Last Admin: 03/24/25 21:06 Dose: 10 mg Documented By: KLAUDIA Enoxaparin Sodium (Enoxaparin Sodium 100 Mg/Ml Syringe) 100 mg SUBCUT Q12H [facility] Last Admin: 03/25/25 05:30 Dose: 100 mg Documented By: KLAUDIA Furosemide (Furosemide 20 Mg Tablet) 20 mg PO DAILY [facility]; Protocol Last Admin: 03/25/25 08:08 Dose: 20 mg Documented By: SUZANNE Gabapentin (Gabapentin 300 Mg Capsule) 300 mg PO TID [facility] Last Admin: 03/25/25 08:08 Dose: 300 mg Documented By: SUZANNE Glucose (Glucose Gel 15 Gm Gel..Gram.) 15 gm PO Q15M PRN; Protocol PRN Reason: per Hypoglycemia Standing Ord. Hydralazine HCl (Hydralazine Hcl 20 Mg/Ml Vial) 10 mg IVPUSH Q6H PRN; Protocol PRN Reason: Htn Hydromorphone HCl (Hydromorphone Hcl 0.5 Mg/0.5 Ml Syringe) 0.5 mg IVPUSH Q4H PRN; Protocol PRN Reason: Pain, Severe (Pain Scale 7-10) Last Admin: 03/25/25 12:29 Dose: 0.5 mg Documented By: SUZANNE Lactated Ringer's (Lr) 1,000 mls @ 100 mls/hr IVCONT .Q10H [facility] Last Admin: 03/25/25 08:21 Dose: 100 mls/hr Documented By: SUZANNE Insulin Human Lispro (Insulin Lispro 100 Unit/Ml 3 Ml Vial) 0 unit SUBCUT QIDACHS [facility]; Protocol Last Admin: 03/25/25 11:44 Dose: 2 unit Documented By: SUZANNE Isosorbide Mononitrate (Isosorbide Mononitrate 30 Mg Tab.Er.24h) 30 mg PO DAILY [facility]; Protocol Last Admin: 03/25/25 08:07 Dose: 30 mg Documented By: SUZANNE Lidocaine (Lidocaine 4 % Patch Adh..Patch) 1 patch TRANSDERMA DAILY [facility]; Protocol Last Admin: 03/25/25 08:06 Dose: 1 patch Documented By: SUZANNE Loratadine (Loratadine 10 Mg Tablet) 10 mg PO DAILY [facility] Last Admin: 03/25/25 08:08 Dose: 10 mg Documented By: SUZANNE Magnesium Hydroxide (Milk Of Magnesia 30 Ml Oral.Susp) 30 ml PO DAILY PRN PRN Reason: Constipation Meclizine HCl (Meclizine Hcl 25 Mg Tablet) 25 mg PO TID PRN PRN Reason: Dizziness Or Vertigo Melatonin (Melatonin 3 Mg Tablet) 6 mg PO BEDTIME PRN PRN Reason: Insomnia Metoclopramide HCl (Metoclopramide Hcl 10 Mg/2 Ml Vial) 5 mg IVPUSH TID [facility] Last Admin: 03/25/25 08:07 Dose: 5 mg Documented By: SUZANNE Metoprolol Succinate (Metoprolol Succinate Er 25 Mg Tab.Er.24h) 25 mg PO DAILY [facility]; Protocol Last Admin: 03/25/25 08:08 Dose: 25 mg Documented By: SUZANNE Ondansetron HCl (Ondansetron Hcl 4 Mg/2 Ml Vial) 4 mg IVPUSH Q6H PRN PRN Reason: Nausea and Vomiting Last Admin: 03/25/25 12:29 Dose: 4 mg Documented By: SUZANNE Pantoprazole Sodium (Pantoprazole Sodium 40 Mg/10 Ml Vial) 40 mg IVPUSH BID@0630,1630 [facility] Last Admin: 03/25/25 05:30 Dose: 40 mg Documented By: KLAUDIA Sodium Chloride (0.9 % Sodium Chloride Flush 3 Ml Syringe) 3 ml IVFLUSH QSHIFT [facility] Last Admin: 03/25/25 08:06 Dose: 3 ml Documented By: SUZANNE Venlafaxine HCl (Venlafaxine Hcl 25 Mg Tablet) 50 mg PO BID [facility] Last Admin: 03/25/25 08:08 Dose: 50 mg Documented By: SUZANNE Labs 03/24/25 04:26 03/25/25 05:54 Labs: Laboratory Results - last 24 hr 03/24/25 03/24/25 03/25/25 17:19 20:26 05:54 Hold Purple Top SEE NOTE Anion Gap 10 L Estim Creat Clear Calc 141.8 Estimated GFR > 60 POC Glucose 187 H 144 H Random Glucose 158 H Calcium 8.7 Magnesium 1.8 03/25/25 03/25/25 07:10 11:02 Hold Purple Top Anion Gap Estim Creat Clear Calc Estimated GFR POC Glucose 157 H 162 H Random Glucose Calcium Magnesium Assessment and Plan (1) Diabetic gastroparesis: Status: Acute Plan 64-year-old male with a PMH significant for?insulin-dependent type 2 diabetes, diabetic gastroparesis, CAD s/p CABG in 2018, paroxysmal AFib on Xarelto, PVD, HTN, hx of osteomyelitis s/p amputation of 1st and 2nd left toes, and peripheral neuropathy who presents to the ED with?abdominal pain and N/V/D x3 days. Pt is admitted to the hospital under observation for treatment and further evaluation of acute on chronic diabetic gastroparesis with intractable N/V/D. Acute on chronic diabetic gastroparesis Pt with intractable N/V/D and epigastric burning abdominal pain x3 days Unable to tolerate p.o. Check stool studies, C [id number] stool sample yet kub -as above. continue maintenance fluids, ondansetron, Reglan, capsaicin cream, lidocaine patch, at Protonix Clear liquid diet, advance as tolerated Gi eval noted -keep current management ,if does not improve then might need erythromycin (will switch reglan to erythromycin) Mild leukocytosis: improivng,Likely reactive to nausea vomiting Denies any respiratory or urinary complaints continue cbc. Mild tachycardia-improved. Insulin-dependent type 2 diabetes with hyperglycemia No DKA: Beta hydroxybutyrate elevated at 1.8 s/p ivf plan: Place on sliding scale insulin,Continue adjusted Lantus(1/2 dosing since unable to take po) Diabetic diet once diet advanced Paroxysmal AFib Continue Xarelto(if does not tolerate po will change to lovenox), metoprolol CAD/HLD continue p.o. statin, ezetimibe HTN continue p.o.- losartan, added IV hydralazine for now Mood disorder/sad /depressed continue venlafaxine ongoing need :Acute on chronic diabetic gastroparesis -need iv fluids,ppi/antiemtics ,unable to tolerate po yet ,gi eval Quality Stroke Does the patient have a stroke diagnosis?: No VTE Prior VTE?: No VTE Risk Level:: Medical - moderate - high VTE Device Contraindication: N/A - Device Ordered VTE Drug Contraindication: N/A - Med Ordered
[2025-03-25 15:48] VITALS: BP 131/68; PULSE 75; RESP 18; TEMP 36.6; O2SAT 96
--- NOTE | 2025-03-25 16:06 | MHC.CM.PN ---
PT NOT YET MEDICALLY CLEARED, NOT TOLERATING PO DCP: HOME VIA PRIVATE TRANSPORT
[2025-03-25] MEDS: Magnesium Oxide 400 MG TABLET PO (16:16)
[2025-03-25] MEDS: Rivaroxaban 20 MG TABLET PO (16:16)
[2025-03-25] MEDS: Potassium Chloride ER 20 MEQ TAB.ER.PRT PO (16:17)
[2025-03-25 16:25] LABS: Glucose, Whole Blood 151 mg/dL (60-115)
[2025-03-25 19:45] VITALS: BP 145/71; PULSE 64; RESP 18; TEMP 37.1; O2SAT 94
[2025-03-25 20:01] LABS: Glucose, Whole Blood 136 mg/dL (60-115)
[2025-03-25] MEDS: Ezetimibe 10 MG TABLET PO (21:47)
[2025-03-25] MEDS: Atorvastatin Calcium 80 MG TABLET PO (21:47)
[2025-03-26 01:00] VITALS: BP 156/76; PULSE 65
[2025-03-26] MEDS: HYDROmorphone HCl 0.5 MG/0.5 ML SYRINGE IVPUSH ×5 (01:49→19:50)
[2025-03-26] MEDS: ondansetron HCL 4 MG/2 ML VIAL IVPUSH ×3 (01:55→19:50)
[2025-03-26 03:33] VITALS: BP 136/63; PULSE 59; RESP 16; TEMP 36.5; O2SAT 96
[2025-03-26] MEDS: Pantoprazole Sodium 40 MG/10 ML VIAL IVPUSH (06:34)
[2025-03-26 07:29] VITALS: BP 180/82; PULSE 70; RESP 14; TEMP 36.2; O2SAT 98
[2025-03-26 07:35] LABS: Glucose, Whole Blood 175 mg/dL (60-115)
[2025-03-26] MEDS: Insulin Lispro 100 UNIT/ML 3 ML VIAL SUBCUT ×4 (08:22→20:43)
[2025-03-26] MEDS: Gabapentin 300 MG CAPSULE PO ×3 (08:22→20:44)
[2025-03-26] MEDS: Isosorbide Mononitrate 30 MG TAB.ER.24H PO (08:22)
[2025-03-26] MEDS: Magnesium Oxide 400 MG TABLET PO ×2 (08:22→16:46)
[2025-03-26] MEDS: Metoprolol Succinate ER 25 MG TAB.ER.24H PO (08:22)
[2025-03-26] MEDS: Aspirin Enteric Coated 81 MG TABLET.DR PO (08:22)
[2025-03-26] MEDS: Loratadine 10 MG TABLET PO (08:23)
[2025-03-26] MEDS: Lidocaine 4 % Patch ADH..PATCH 1 PATCH TRANSDERMA (08:23)
[2025-03-26] MEDS: Venlafaxine HCL 25 MG TABLET 50 MG PO ×2 (08:23→20:43)
[2025-03-26] MEDS: Metoclopramide HCl 10 MG/2 ML VIAL 5 MG IVPUSH ×3 (08:23→20:43)
[2025-03-26] MEDS: Furosemide 20 MG TABLET PO (08:23)
[2025-03-26] MEDS: 0.9 % Sodium Chloride Flush 3 ML SYRINGE IVFLUSH ×3 (10:23→19:50)
[2025-03-26 11:07] LABS: Glucose, Whole Blood 164 mg/dL (60-115)
--- NOTE | 2025-03-26 14:03 | P.PNIM_ITS ---
Subjective Subjective Date of Service: 03/26/25 Interval History: dm gasteroparesis Review of Systems abd pain somewhat improving nausea/vomiting improving Review of Systems: Yes all other systems are reviewed and are negative Physical Exam 2 Vital Signs: Vital Signs: Last Vital Signs Temp 97.1 F 03/26/25 07:29 Pulse 70 03/26/25 07:29 Resp 14 03/26/25 07:29 BP 180/82 H 03/26/25 07:29 Pulse Ox 98 03/26/25 07:29 O2 Del Method Room Air 03/26/25 07:29 O2 Flow Rate 100 03/23/25 12:29 BMI result Body Mass Index 33.2 Appearance: Alert.? Oriented X3.? cvs: [id number], [id number] . res: clear to auscultation ,no rhonchii or wheezing abd:soft,epigastric discomfort, bs present. ext pulses present , no cyanosis . neuro: axo3 , nonfocal. Objective Data Active Medications Acetaminophen (Acetaminophen 325 Mg Tablet) 650 mg PO Q6H PRN PRN Reason: Pain, Mild 1-3,fever,headache Aspirin (Aspirin Enteric Coated 81 Mg Tablet.) 81 mg PO DAILY [facility] Last Admin: 03/26/25 08:22 Dose: 81 mg Documented By: STEFANO Atorvastatin Calcium (Atorvastatin Calcium 80 Mg Tablet) 80 mg PO BEDTIME [facility] Last Admin: 03/25/25 21:47 Dose: 80 mg Documented By: BRAYDEN Calcium Carbonate (Calcium Carbonate 750 Mg Tab.Chew) 750 mg PO Q4H PRN PRN Reason: Heartburn Capsaicin (Capsaicin 0.025% Cream 60 Gm Tube) 1 appl TOPICAL QID PRN; Protocol PRN Reason: Pain, Mild 1-3,fever,headache Dextrose (Dextrose 50 % 25 Gm/50 Ml Syringe) 25 gm IVPUSH Q15M PRN; Protocol PRN Reason: per Hypoglycemia Standing Ord. Ezetimibe (Ezetimibe 10 Mg Tablet) 10 mg PO BEDTIME [facility] Last Admin: 03/25/25 21:47 Dose: 10 mg Documented By: BRAYDEN Furosemide (Furosemide 20 Mg Tablet) 20 mg PO DAILY [facility]; Protocol Last Admin: 03/26/25 08:23 Dose: 20 mg Documented By: STEFANO Gabapentin (Gabapentin 300 Mg Capsule) 300 mg PO TID [facility] Last Admin: 03/26/25 08:22 Dose: 300 mg Documented By: STEFANO Glucose (Glucose Gel 15 Gm Gel..Gram.) 15 gm PO Q15M PRN; Protocol PRN Reason: per Hypoglycemia Standing Ord. Hydralazine HCl (Hydralazine Hcl 20 Mg/Ml Vial) 10 mg IVPUSH Q6H PRN; Protocol PRN Reason: Htn Hydromorphone HCl (Hydromorphone Hcl 0.5 Mg/0.5 Ml Syringe) 0.5 mg IVPUSH Q4H PRN; Protocol PRN Reason: Pain, Severe (Pain Scale 7-10) Last Admin: 03/26/25 10:23 Dose: 0.5 mg Documented By: STEFANO Insulin Human Lispro (Insulin Lispro 100 Unit/Ml 3 Ml Vial) 0 unit SUBCUT QIDACHS [facility]; Protocol Last Admin: 03/26/25 12:07 Dose: 2 unit Documented By: STEFANO Isosorbide Mononitrate (Isosorbide Mononitrate 30 Mg Tab.Er.24h) 30 mg PO DAILY [facility]; Protocol Last Admin: 03/26/25 08:22 Dose: 30 mg Documented By: STEFANO Lidocaine (Lidocaine 4 % Patch Adh..Patch) 1 patch TRANSDERMA DAILY [facility]; Protocol Last Admin: 03/26/25 08:23 Dose: 1 patch Documented By: STEFANO Loratadine (Loratadine 10 Mg Tablet) 10 mg PO DAILY [facility] Last Admin: 03/26/25 08:23 Dose: 10 mg Documented By: STEFANO Magnesium Hydroxide (Milk Of Magnesia 30 Ml Oral.Susp) 30 ml PO DAILY PRN PRN Reason: Constipation Magnesium Oxide (Magnesium Oxide 400 Mg Tablet) 400 mg PO BIDPC [facility] Last Admin: 03/26/25 08:22 Dose: 400 mg Documented By: STEFANO Meclizine HCl (Meclizine Hcl 25 Mg Tablet) 25 mg PO TID PRN PRN Reason: Dizziness Or Vertigo Melatonin (Melatonin 3 Mg Tablet) 6 mg PO BEDTIME PRN PRN Reason: Insomnia Metoclopramide HCl (Metoclopramide Hcl 10 Mg/2 Ml Vial) 5 mg IVPUSH TID [facility] Last Admin: 03/26/25 08:23 Dose: 5 mg Documented By: STEFANO Metoprolol Succinate (Metoprolol Succinate Er 25 Mg Tab.Er.24h) 25 mg PO DAILY [facility]; Protocol Last Admin: 03/26/25 08:22 Dose: 25 mg Documented By: STEFANO Ondansetron HCl (Ondansetron Hcl 4 Mg/2 Ml Vial) 4 mg IVPUSH Q6H PRN PRN Reason: Nausea and Vomiting Last Admin: 03/26/25 13:14 Dose: 4 mg Documented By: STEFANO Pantoprazole Sodium (Pantoprazole Sodium 40 Mg/10 Ml Vial) 40 mg IVPUSH BID@0630,1630 [facility] Last Admin: 03/26/25 06:34 Dose: 40 mg Documented By: BRAYDEN Rivaroxaban (Rivaroxaban 20 Mg Tablet) 20 mg PO DAILY@1700 [facility] Last Admin: 03/25/25 16:16 Dose: 20 mg Documented By: SUZANNE Sodium Chloride (0.9 % Sodium Chloride Flush 3 Ml Syringe) 3 ml IVFLUSH QSHIFT [facility] Last Admin: 03/26/25 10:23 Dose: 3 ml Documented By: STEFANO Venlafaxine HCl (Venlafaxine Hcl 25 Mg Tablet) 50 mg PO BID [facility] Last Admin: 03/26/25 08:23 Dose: 50 mg Documented By: STEFANO Labs 03/24/25 04:26 03/25/25 05:54 Labs: Laboratory Results - last 24 hr 03/25/25 03/25/25 03/26/25 16:17 19:47 07:31 POC Glucose 151 H 136 H 175 H 03/26/25 11:02 POC Glucose 164 H Assessment and Plan (1) Diabetic gastroparesis: Status: Acute Plan 64-year-old male with a PMH significant for?insulin-dependent type 2 diabetes, diabetic gastroparesis, CAD s/p CABG in 2018, paroxysmal AFib on Xarelto, PVD, HTN, hx of osteomyelitis s/p amputation of 1st and 2nd left toes, and peripheral neuropathy who presents to the ED with?abdominal pain and N/V/D x3 days. Pt is admitted to the hospital under observation for treatment and further evaluation of acute on chronic diabetic gastroparesis with intractable N/V/D. Acute on chronic diabetic gastroparesis Pt with intractable N/V/D and epigastric burning abdominal pain x3 days Unable to tolerate p.o. Check stool studies, C [id number] stool sample yet kub -as above. continue maintenance fluids, ondansetron, Reglan, capsaicin cream, lidocaine patch, at Protonix Clear liquid diet, advance as tolerated Gi eval noted -keep current management ,if does not improve then might need erythromycin (will switch reglan to erythromycin) Mild leukocytosis: improivng,Likely reactive to nausea vomiting Denies any respiratory or urinary complaints continue cbc. Mild tachycardia-improved. Insulin-dependent type 2 diabetes with hyperglycemia No DKA: Beta hydroxybutyrate elevated at 1.8 s/p ivf plan: Place on sliding scale insulin,Continue adjusted Lantus(1/2 dosing since unable to take po) Diabetic diet once diet advanced Paroxysmal AFib Continue Xarelto(if does not tolerate po will change to lovenox), metoprolol CAD/HLD continue p.o. statin, ezetimibe HTN continue p.o.- losartan, added IV hydralazine for now Mood disorder/sad /depressed continue venlafaxine ongoing need :Acute on chronic diabetic gastroparesis -need iv fluids,ppi/antiemtics ,unable to tolerate po yet Quality Stroke Does the patient have a stroke diagnosis?: No VTE Prior VTE?: No VTE Risk Level:: Medical - moderate - high VTE Device Contraindication: N/A - Device Ordered VTE Drug Contraindication: N/A - Med Ordered
[2025-03-26 15:06] VITALS: BP 137/62; PULSE 78; RESP 14; TEMP 36.8; O2SAT 95
[2025-03-26 16:14] LABS: Glucose, Whole Blood 161 mg/dL (60-115)
[2025-03-26] MEDS: Rivaroxaban 20 MG TABLET PO (16:46)
[2025-03-26 19:33] VITALS: BP 143/70; PULSE 66; RESP 18; TEMP 36.6; O2SAT 95
[2025-03-26 19:50] LABS: Glucose, Whole Blood 182 mg/dL (60-115)
[2025-03-26] MEDS: Atorvastatin Calcium 80 MG TABLET PO (20:44)
[2025-03-26] MEDS: Ezetimibe 10 MG TABLET PO (20:44)
[2025-03-27] MEDS: HYDROmorphone HCl 0.5 MG/0.5 ML SYRINGE IVPUSH ×5 (00:17→20:55)
[2025-03-27] MEDS: Melatonin 3 MG TABLET 6 MG PO (00:17)
[2025-03-27 07:36] VITALS: BP 164/80; PULSE 62; RESP 16; TEMP 36.4; O2SAT 97
[2025-03-27 07:50] LABS: Glucose, Whole Blood 215 mg/dL (60-115)
[2025-03-27] MEDS: Metoclopramide HCl 10 MG/2 ML VIAL 5 MG IVPUSH (08:12)
[2025-03-27] MEDS: Venlafaxine HCL 25 MG TABLET 50 MG PO ×2 (08:13→20:21)
[2025-03-27] MEDS: Magnesium Oxide 400 MG TABLET PO (08:13)
[2025-03-27] MEDS: Loratadine 10 MG TABLET PO (08:13)
[2025-03-27] MEDS: Gabapentin 300 MG CAPSULE PO ×3 (08:13→20:22)
[2025-03-27] MEDS: Aspirin Enteric Coated 81 MG TABLET.DR PO (08:13)
[2025-03-27] MEDS: Metoprolol Succinate ER 25 MG TAB.ER.24H PO (08:13)
[2025-03-27] MEDS: Insulin Lispro 100 UNIT/ML 3 ML VIAL SUBCUT ×4 (08:14→20:55)
[2025-03-27] MEDS: Isosorbide Mononitrate 30 MG TAB.ER.24H PO (08:14)
[2025-03-27] MEDS: Furosemide 20 MG TABLET PO (08:14)
[2025-03-27] MEDS: Lidocaine 4 % Patch ADH..PATCH 1 PATCH TRANSDERMA (08:15)
[2025-03-27] MEDS: 0.9 % Sodium Chloride Flush 3 ML SYRINGE IVFLUSH ×3 (08:15→20:22)
[2025-03-27 08:22] LABS: Anion Gap 13 (12-20); Blood Urea Nitrogen 7 mg/dL (9-16); Calcium 9.2 mg/dL (8.4-10.2); Carbon Dioxide 27 mmol/L (22-29); Chloride 104 mmol/L (96-108); Estimated Glomerular Filt Rate > 60; Glucose Random 189 mg/dL (60-115); Potassium 4.1 mmol/L (3.3-5.1); Sodium 140 mmol/L (135-145)
[2025-03-27 11:28] LABS: Glucose, Whole Blood 170 mg/dL (60-115)
[2025-03-27] MEDS: ondansetron HCL 4 MG/2 ML VIAL IVPUSH (12:10)
--- NOTE | 2025-03-27 12:38 | HO.PM.IMPN ---
Subjective Subjective Date of Service: 03/27/25 Interval History: Diabetic gastroparesis. Review of Systems Nausea vomiting improving Still has some abdominal pain Tele shows some PVCs with bigeminy. Patient denies any chest pain no shortness a breath or palpitations. Review of Systems: Yes all other systems are reviewed and are negative Physical Exam Vital Signs: Vital Signs: Last Vital Signs Temp 97.5 F 03/27/25 07:36 Pulse 62 03/27/25 07:36 Resp 16 03/27/25 07:36 BP 164/80 H 03/27/25 07:36 Pulse Ox 97 03/27/25 07:36 O2 Del Method Room Air 03/27/25 07:36 O2 Flow Rate 100 03/23/25 12:29 BMI result Body Mass Index 33.2 Appearance: Alert.? Oriented X3.? cvs: [id number], [id number] . res: clear to auscultation ,no rhonchii or wheezing abd:soft,epigastric discomfort, bs present. ext pulses present , no cyanosis . neuro: axo3 , nonfocal. Objective Data Active Medications Acetaminophen (Acetaminophen 325 Mg Tablet) 650 mg PO Q6H PRN PRN Reason: Pain, Mild 1-3,fever,headache Aspirin (Aspirin Enteric Coated 81 Mg Tablet.) 81 mg PO DAILY [facility] Last Admin: 03/27/25 08:13 Dose: 81 mg Documented By: JOSE DAVID Atorvastatin Calcium (Atorvastatin Calcium 80 Mg Tablet) 80 mg PO BEDTIME [facility] Last Admin: 03/26/25 20:44 Dose: 80 mg Documented By: EWA Calcium Carbonate (Calcium Carbonate 750 Mg Tab.Chew) 750 mg PO Q4H PRN PRN Reason: Heartburn Capsaicin (Capsaicin 0.025% Cream 60 Gm Tube) 1 appl TOPICAL QID PRN; Protocol PRN Reason: Pain, Mild 1-3,fever,headache Dextrose (Dextrose 50 % 25 Gm/50 Ml Syringe) 25 gm IVPUSH Q15M PRN; Protocol PRN Reason: per Hypoglycemia Standing Ord. Ezetimibe (Ezetimibe 10 Mg Tablet) 10 mg PO BEDTIME [facility] Last Admin: 03/26/25 20:44 Dose: 10 mg Documented By: EWA Furosemide (Furosemide 20 Mg Tablet) 20 mg PO DAILY [facility]; Protocol Last Admin: 03/27/25 08:14 Dose: 20 mg Documented By: JOSE DAVID Gabapentin (Gabapentin 300 Mg Capsule) 300 mg PO TID [facility] Last Admin: 03/27/25 08:13 Dose: 300 mg Documented By: JOSE DAVID Glucose (Glucose Gel 15 Gm Gel..Gram.) 15 gm PO Q15M PRN; Protocol PRN Reason: per Hypoglycemia Standing Ord. Hydralazine HCl (Hydralazine Hcl 20 Mg/Ml Vial) 10 mg IVPUSH Q6H PRN; Protocol PRN Reason: Htn Hydromorphone HCl (Hydromorphone Hcl 0.5 Mg/0.5 Ml Syringe) 0.5 mg IVPUSH Q4H PRN; Protocol PRN Reason: Pain, Severe (Pain Scale 7-10) Last Admin: 03/27/25 12:12 Dose: 0.5 mg Documented By: JOSE DAVID Insulin Human Lispro (Insulin Lispro 100 Unit/Ml 3 Ml Vial) 0 unit SUBCUT QIDACHS [facility]; Protocol Last Admin: 03/27/25 12:09 Dose: 2 unit Documented By: JOSE DAVID Isosorbide Mononitrate (Isosorbide Mononitrate 30 Mg Tab.Er.24h) 30 mg PO DAILY [facility]; Protocol Last Admin: 03/27/25 08:14 Dose: 30 mg Documented By: JOSE DAVID Lidocaine (Lidocaine 4 % Patch Adh..Patch) 1 patch TRANSDERMA DAILY [facility]; Protocol Last Admin: 03/27/25 08:15 Dose: 1 patch Documented By: JOSE DAVID Loratadine (Loratadine 10 Mg Tablet) 10 mg PO DAILY [facility] Last Admin: 03/27/25 08:13 Dose: 10 mg Documented By: JOSE DAVID Magnesium Hydroxide (Milk Of Magnesia 30 Ml Oral.Susp) 30 ml PO DAILY PRN PRN Reason: Constipation Magnesium Oxide (Magnesium Oxide 400 Mg Tablet) 400 mg PO BIDPC [facility] Last Admin: 03/27/25 08:13 Dose: 400 mg Documented By: JOSE DAVID Meclizine HCl (Meclizine Hcl 25 Mg Tablet) 25 mg PO TID PRN PRN Reason: Dizziness Or Vertigo Melatonin (Melatonin 3 Mg Tablet) 6 mg PO BEDTIME PRN PRN Reason: Insomnia Last Admin: 03/27/25 00:17 Dose: 6 mg Documented By: EWA Metoclopramide HCl (Metoclopramide Hcl 10 Mg/2 Ml Vial) 5 mg IVPUSH TID [facility] Last Admin: 03/27/25 08:12 Dose: 5 mg Documented By: JOSE DAVID Metoprolol Succinate (Metoprolol Succinate Er 25 Mg Tab.Er.24h) 25 mg PO DAILY [facility]; Protocol Last Admin: 03/27/25 08:13 Dose: 25 mg Documented By: JOSE DAVID Ondansetron HCl (Ondansetron Hcl 4 Mg/2 Ml Vial) 4 mg IVPUSH Q6H PRN PRN Reason: Nausea and Vomiting Last Admin: 03/27/25 12:10 Dose: 4 mg Documented By: JOSE DAVID Rivaroxaban (Rivaroxaban 20 Mg Tablet) 20 mg PO DAILY@1700 [facility] Last Admin: 03/26/25 16:46 Dose: 20 mg Documented By: STEFANO Sodium Chloride (0.9 % Sodium Chloride Flush 3 Ml Syringe) 3 ml IVFLUSH QSHIFT [facility] Last Admin: 03/27/25 08:15 Dose: 3 ml Documented By: JOSE DAVID Venlafaxine HCl (Venlafaxine Hcl 25 Mg Tablet) 50 mg PO BID [facility] Last Admin: 03/27/25 08:13 Dose: 50 mg Documented By: JOSE DAVID Labs 03/24/25 04:26 03/27/25 07:50 Labs: Laboratory Results - last 24 hr 03/26/25 03/26/25 03/27/25 16:06 19:38 07:39 Hold Purple Top Anion Gap Estim Creat Clear Calc Estimated GFR POC Glucose 161 H 182 H 215 H Random Glucose Calcium Magnesium 03/27/25 03/27/25 07:50 11:24 Hold Purple Top SEE NOTE Anion Gap 13 Estim Creat Clear Calc 133.0 Estimated GFR > 60 POC Glucose 170 H Random Glucose 189 H Calcium 9.2 Magnesium 2.0 Assessment and Plan (1) Diabetic gastroparesis: Status: Acute Plan 64-year-old male with a PMH significant for?insulin-dependent type 2 diabetes, diabetic gastroparesis, CAD s/p CABG in 2018, paroxysmal AFib on Xarelto, PVD, HTN, hx of osteomyelitis s/p amputation of 1st and 2nd left toes, and peripheral neuropathy who presents to the ED with?abdominal pain and N/V/D x3 days. Pt is admitted to the hospital under observation for treatment and further evaluation of acute on chronic diabetic gastroparesis with intractable N/V/D. Acute on chronic diabetic gastroparesis Pt with intractable N/V/D and epigastric burning abdominal pain x3 days Unable to tolerate p.o. Check stool studies, C [id number] stool sample yet kub -as above. po intake improving, abdominal discomfort also somewhat improving diet ,switch to po ondansetron, Reglan continue capsaicin cream, lidocaine patch, omeprazole. Gi eval noted -keep current management ,if does not improve then might need erythromycin (will switch reglan to erythromycin) Mild leukocytosis: improving,Likely reactive to nausea vomiting Denies any respiratory or urinary complaints continue cbc. Mild tachycardia-improved. Insulin-dependent type 2 diabetes with hyperglycemia No DKA: Beta hydroxybutyrate elevated at 1.8 s/p ivf plan: Place on sliding scale insulin,Continue adjusted Lantus(1/2 dosing since unable to take po) Diabetic diet once diet advanced Paroxysmal AFib qt in 440's on tele has pvc-bigemny -moniter on tele potassium 4.1 ,ma added extra potassium 10 meq and magnesium adjusted to 800 mg po bid. patient asymptomatic Continue Xarelto, metoprolol CAD/HLD continue p.o. statin, ezetimibe HTN continue p.o.- losartan, added IV hydralazine for now Mood disorder/sad /depressed continue venlafaxine ongoing need :Acute on chronic diabetic gastroparesis -still symptomatic -will give trial to [facility] to po ppi/antiemtics,diet ,moniter clinically Quality Stroke Does the patient have a stroke diagnosis?: No VTE Prior VTE?: No VTE Risk Level:: Medical - moderate - high VTE Device Contraindication: N/A - Device Ordered VTE Drug Contraindication: N/A - Med Ordered
[2025-03-27] MEDS: Potassium Chloride ER 10 MEQ TABLET.ER PO (14:13)
[2025-03-27 15:06] VITALS: BP 140/72; PULSE 66; RESP 18; TEMP 36.4; O2SAT 98
[2025-03-27 16:05] LABS: Glucose, Whole Blood 179 mg/dL (60-115)
[2025-03-27] MEDS: Rivaroxaban 20 MG TABLET PO (16:45)
[2025-03-27] MEDS: Omeprazole 40 MG CAPSULE.DR PO (16:45)
[2025-03-27] MEDS: Metoclopramide HCl 5 MG TABLET PO (16:45)
[2025-03-27] MEDS: Magnesium Oxide 400 MG TABLET 800 MG PO (16:45)
[2025-03-27 19:49] VITALS: BP 153/77; PULSE 64; RESP 18; TEMP 36.4; O2SAT 97
[2025-03-27] MEDS: Ezetimibe 10 MG TABLET PO (20:21)
[2025-03-27] MEDS: Atorvastatin Calcium 80 MG TABLET PO (20:21)
[2025-03-27 20:33] LABS: Glucose, Whole Blood 157 mg/dL (60-115)
--- NOTE | 2025-03-27 21:50 | PC.NURSE ---
Pt c/o 08/05 abd pain not due for pain med.Pt upset that dilaudid was changed from q4hr to q6hrs.Pt called his , called this nurse also upset that the frequency was changed. notified ordered to give dose early.Pt medicated with dilauded 0.5mg IV at 2150.
[2025-03-28] MEDS: Metoclopramide HCl 5 MG TABLET PO ×2 (01:23→19:39)
[2025-03-28] MEDS: HYDROmorphone HCl 0.5 MG/0.5 ML SYRINGE IVPUSH (02:55)
[2025-03-28 03:29] VITALS: BP 137/85; PULSE 65; RESP 17; TEMP 36.4; O2SAT 97
[2025-03-28] MEDS: Omeprazole 40 MG CAPSULE.DR PO ×2 (05:49→17:16)
[2025-03-28 07:39] VITALS: BP 143/65; PULSE 71; RESP 16; TEMP 36.2; O2SAT 98
[2025-03-28 07:47] LABS: Glucose, Whole Blood 186 mg/dL (60-115)
[2025-03-28] MEDS: Lidocaine 4 % Patch ADH..PATCH 1 PATCH TRANSDERMA (08:03)
[2025-03-28] MEDS: Aspirin Enteric Coated 81 MG TABLET.DR PO (08:04)
[2025-03-28] MEDS: Metoprolol Succinate ER 25 MG TAB.ER.24H PO (08:04)
[2025-03-28] MEDS: Gabapentin 300 MG CAPSULE PO ×3 (08:04→20:41)
[2025-03-28] MEDS: Loratadine 10 MG TABLET PO (08:04)
[2025-03-28] MEDS: Furosemide 20 MG TABLET PO (08:04)
[2025-03-28] MEDS: Isosorbide Mononitrate 30 MG TAB.ER.24H PO (08:04)
[2025-03-28] MEDS: Insulin Glargine,Hum.rec.anlog 100 UNIT/ML 10 ML VIAL SUBCUT (08:05)
[2025-03-28] MEDS: Venlafaxine HCL 25 MG TABLET 50 MG PO ×2 (08:05→20:40)
[2025-03-28] MEDS: Magnesium Oxide 400 MG TABLET 800 MG PO ×2 (08:05→17:16)
[2025-03-28] MEDS: Insulin Lispro 100 UNIT/ML 3 ML VIAL SUBCUT ×4 (08:05→20:41)
[2025-03-28] MEDS: 0.9 % Sodium Chloride Flush 3 ML SYRINGE IVFLUSH ×3 (08:10→20:41)
[2025-03-28] MEDS: Acetaminophen 325 MG TABLET 650 MG PO ×2 (10:11→19:39)
[2025-03-28] MEDS: oxyCODONE HCl Immed Release 5 MG TABLET PO ×4 (10:11→23:43)
[2025-03-28 11:40] LABS: Glucose, Whole Blood 227 mg/dL (60-115)
--- NOTE | 2025-03-28 13:16 | MHC.CM.PN ---
PT NOT YET MEDICALLY CLEARED, DCP HOME VIA PRIVATE TRANSPORT
--- NOTE | 2025-03-28 14:27 | P.PNIM_ITS ---
Subjective Subjective Date of Service: 03/28/25 Interval History: dm gateroparesis , diarrhae Review of Systems abd disconfort improving has diarrhae no fevers no nausea or vomiting Physical Exam 2 Vital Signs: Vital Signs: Last Vital Signs Temp 97.2 F 03/28/25 07:39 Pulse 71 03/28/25 07:39 Resp 16 03/28/25 07:39 BP 143/65 H 03/28/25 07:39 Pulse Ox 98 03/28/25 07:39 O2 Del Method Room Air 03/28/25 07:39 O2 Flow Rate 100 03/23/25 12:29 BMI result Body Mass Index 33.2 Appearance: Alert.? Oriented X3.? cvs: rrr, [id number] . res: clear to auscultation ,no rhonchii or wheezing abd:soft,epigastric discomfort, bs present. ext pulses present , no cyanosis . neuro: axo3 , nonfocal. Objective Data Active Medications Acetaminophen (Acetaminophen 325 Mg Tablet) 650 mg PO Q6H PRN PRN Reason: Pain, Mild 1-3,fever,headache Last Admin: 03/28/25 10:11 Dose: 650 mg Documented By: SUZANNE Aspirin (Aspirin Enteric Coated 81 Mg Tablet.) 81 mg PO DAILY [facility] Last Admin: 03/28/25 08:04 Dose: 81 mg Documented By: SUZANNE Atorvastatin Calcium (Atorvastatin Calcium 80 Mg Tablet) 80 mg PO BEDTIME [facility] Last Admin: 03/27/25 20:21 Dose: 80 mg Documented By: YAMILETH Calcium Carbonate (Calcium Carbonate 750 Mg Tab.Chew) 750 mg PO Q4H PRN PRN Reason: Heartburn Capsaicin (Capsaicin 0.025% Cream 60 Gm Tube) 1 appl TOPICAL QID PRN; Protocol PRN Reason: Pain, Mild 1-3,fever,headache Dextrose (Dextrose 50 % 25 Gm/50 Ml Syringe) 25 gm IVPUSH Q15M PRN; Protocol PRN Reason: per Hypoglycemia Standing Ord. Ezetimibe (Ezetimibe 10 Mg Tablet) 10 mg PO BEDTIME [facility] Last Admin: 03/27/25 20:21 Dose: 10 mg Documented By: YAMILETH Furosemide (Furosemide 20 Mg Tablet) 20 mg PO DAILY [facility]; Protocol Last Admin: 03/28/25 08:04 Dose: 20 mg Documented By: SUZANNE Gabapentin (Gabapentin 300 Mg Capsule) 300 mg PO TID [facility] Last Admin: 03/28/25 08:04 Dose: 300 mg Documented By: SUZANNE Glucose (Glucose Gel 15 Gm Gel..Gram.) 15 gm PO Q15M PRN; Protocol PRN Reason: per Hypoglycemia Standing Ord. Insulin Glargine (Insulin Glargine,Hum.Rec.Anlog 100 Unit/Ml 10 Ml Vial) 5 unit SUBCUT DAILY [facility] Last Admin: 03/28/25 08:05 Dose: 5 unit Documented By: SUZANNE Insulin Human Lispro (Insulin Lispro 100 Unit/Ml 3 Ml Vial) 0 unit SUBCUT QIDACHS [facility]; Protocol Last Admin: 03/28/25 12:06 Dose: 4 unit Documented By: SUZANNE Isosorbide Mononitrate (Isosorbide Mononitrate 30 Mg Tab.Er.24h) 30 mg PO DAILY [facility]; Protocol Last Admin: 03/28/25 08:04 Dose: 30 mg Documented By: SUZANNE Lidocaine (Lidocaine 4 % Patch Adh..Patch) 1 patch TRANSDERMA DAILY [facility]; Protocol Last Admin: 03/28/25 08:03 Dose: 1 patch Documented By: SUZANNE Loratadine (Loratadine 10 Mg Tablet) 10 mg PO DAILY [facility] Last Admin: 03/28/25 08:04 Dose: 10 mg Documented By: SUZANNE Magnesium Hydroxide (Milk Of Magnesia 30 Ml Oral.Susp) 30 ml PO DAILY PRN PRN Reason: Constipation Magnesium Oxide (Magnesium Oxide 400 Mg Tablet) 800 mg PO BIDPC [facility] Last Admin: 03/28/25 08:05 Dose: 800 mg Documented By: SUZANNE Meclizine HCl (Meclizine Hcl 25 Mg Tablet) 25 mg PO TID PRN PRN Reason: Dizziness Or Vertigo Melatonin (Melatonin 3 Mg Tablet) 6 mg PO BEDTIME PRN PRN Reason: Insomnia Last Admin: 03/27/25 00:17 Dose: 6 mg Documented By: EWA Metoclopramide HCl (Metoclopramide Hcl 5 Mg Tablet) 5 mg PO Q6H PRN PRN Reason: Nausea and Vomiting Last Admin: 03/28/25 01:23 Dose: 5 mg Documented By: YAMILETH Metoprolol Succinate (Metoprolol Succinate Er 25 Mg Tab.Er.24h) 25 mg PO DAILY [facility]; Protocol Last Admin: 03/28/25 08:04 Dose: 25 mg Documented By: SUZANNE Omeprazole (Omeprazole 40 Mg Capsule.) 40 mg PO BID@0630,1630 [facility] Last Admin: 03/28/25 05:49 Dose: 40 mg Documented By: YAMILETH Oxycodone HCl (Oxycodone Hcl Immed Release 5 Mg Tablet) 5 mg PO Q4H PRN PRN Reason: Pain, Moderate(Pain Scale 4-6) Last Admin: 03/28/25 10:11 Dose: 5 mg Documented By: SUZANNE Rivaroxaban (Rivaroxaban 20 Mg Tablet) 20 mg PO DAILY@1700 [facility] Last Admin: 03/27/25 16:45 Dose: 20 mg Documented By: JOSE DAVID Sodium Chloride (0.9 % Sodium Chloride Flush 3 Ml Syringe) 3 ml IVFLUSH QSHIFT [facility] Last Admin: 03/28/25 08:10 Dose: 3 ml Documented By: SUZANNE Venlafaxine HCl (Venlafaxine Hcl 25 Mg Tablet) 50 mg PO BID [facility] Last Admin: 03/28/25 08:05 Dose: 50 mg Documented By: SUZANNE Labs 03/24/25 04:26 03/27/25 07:50 Labs: Laboratory Results - last 24 hr 03/27/25 03/27/25 03/28/25 16:00 20:27 07:43 POC Glucose 179 H 157 H 186 H 03/28/25 11:36 POC Glucose 227 H Assessment and Plan (1) Diabetic gastroparesis: Status: Acute Plan 64-year-old male with a PMH significant for?insulin-dependent type 2 diabetes, diabetic gastroparesis, CAD s/p CABG in 2018, paroxysmal AFib on Xarelto, PVD, HTN, hx of osteomyelitis s/p amputation of 1st and 2nd left toes, and peripheral neuropathy who presents to the ED with?abdominal pain and N/V/D x3 days. Pt is admitted to the hospital under observation for treatment and further evaluation of acute on chronic diabetic gastroparesis with intractable N/V/D. Acute on chronic diabetic gastroparesis Pt with intractable N/V/D and epigastric burning abdominal pain x3 days Unable to tolerate p.o. Check stool studies, C rhof-[id number]-ci stool sample yet kub -as above. po intake improving, abdominal discomfort also somewhat improving diet ,switch to po ondansetron, Reglan continue capsaicin cream, lidocaine patch, omeprazole. Gi eval noted -keep current management ,if does not improve then might need erythromycin (will switch reglan to erythromycin) Mild leukocytosis: improving,Likely reactive to nausea vomiting Denies any respiratory or urinary complaints continue cbc. Mild tachycardia-improved. Insulin-dependent type 2 diabetes with hyperglycemia No DKA: Beta hydroxybutyrate elevated at 1.8 s/p ivf plan: Place on sliding scale insulin,Continue adjusted Lantus(1/2 dosing since unable to take po) Diabetic diet once diet advanced Paroxysmal AFib qt in 440's on tele has [id number] improving than yesterday. moniter bmp/magnesium . patient asymptomatic Continue Xarelto, metoprolol CAD/HLD continue p.o. statin, ezetimibe HTN continue p.o.- losartan, added IV hydralazine for now Mood disorder/sad /depressed continue venlafaxine ongoing need :Acute on chronic diabetic gastroparesis -still symptomatic -will give trial to [facility] to po ppi/antiemtics,diet ,moniter clinically Quality Stroke Does the patient have a stroke diagnosis?: No VTE Prior VTE?: No VTE Risk Level:: Medical - moderate - high VTE Device Contraindication: N/A - Device Ordered VTE Drug Contraindication: N/A - Med Ordered
[2025-03-28 15:55] VITALS: BP 115/66; PULSE 69; RESP 18; TEMP 36.1; O2SAT 99
[2025-03-28 16:12] LABS: Anion Gap 11 (12-20); Blood Urea Nitrogen 8 mg/dL (9-16); Calcium 9.5 mg/dL (8.4-10.2); Carbon Dioxide 26 mmol/L (22-29); Chloride 107 mmol/L (96-108); Creatinine Clr Calc Pharmacy 118.2; Estimated Glomerular Filt Rate > 60; Glucose Random 204 mg/dL (60-115); Magnesium 2.1 mg/dL (1.6-2.6); Sodium 140 mmol/L (135-145)
[2025-03-28 16:37] LABS: Glucose, Whole Blood 200 mg/dL (60-115)
[2025-03-28] MEDS: Rivaroxaban 20 MG TABLET PO (17:16)
[2025-03-28 19:42] VITALS: BP 117/61; PULSE 76; RESP 18; TEMP 36.6; O2SAT 98
[2025-03-28 20:28] LABS: Glucose, Whole Blood 245 mg/dL (60-115)
[2025-03-28] MEDS: Atorvastatin Calcium 80 MG TABLET PO (20:40)
[2025-03-28] MEDS: Ezetimibe 10 MG TABLET PO (21:06)
[2025-03-29 03:08] VITALS: BP 124/61; PULSE 71; RESP 18; TEMP 36; O2SAT 97
[2025-03-29] MEDS: oxyCODONE HCl Immed Release 5 MG TABLET PO ×3 (03:32→12:07)
[2025-03-29] MEDS: Acetaminophen 325 MG TABLET 650 MG PO (03:32)
[2025-03-29] MEDS: Omeprazole 40 MG CAPSULE.DR PO (05:33)
[2025-03-29 07:30] VITALS: BP 119/50; PULSE 71; RESP 16; TEMP 36.1; O2SAT 99
[2025-03-29 07:44] LABS: Glucose, Whole Blood 162 mg/dL (60-115)
[2025-03-29] MEDS: Insulin Lispro 100 UNIT/ML 3 ML VIAL SUBCUT ×2 (07:58→11:46)
[2025-03-29] MEDS: Insulin Glargine,Hum.rec.anlog 100 UNIT/ML 10 ML VIAL 8 UNIT SUBCUT (07:58)
[2025-03-29] MEDS: Lidocaine 4 % Patch ADH..PATCH 1 PATCH TRANSDERMA (07:59)
[2025-03-29 08:00] VITALS: BP 119/50
[2025-03-29] MEDS: Magnesium Oxide 400 MG TABLET 800 MG PO (08:00)
[2025-03-29] MEDS: Isosorbide Mononitrate 30 MG TAB.ER.24H PO (08:00)
[2025-03-29 08:01] VITALS: BP 119/50; PULSE 71
[2025-03-29] MEDS: Aspirin Enteric Coated 81 MG TABLET.DR PO (08:01)
[2025-03-29] MEDS: Furosemide 20 MG TABLET PO (08:01)
[2025-03-29] MEDS: Gabapentin 300 MG CAPSULE PO (08:01)
[2025-03-29] MEDS: Venlafaxine HCL 25 MG TABLET 50 MG PO (08:01)
[2025-03-29] MEDS: 0.9 % Sodium Chloride Flush 3 ML SYRINGE IVFLUSH (08:01)
[2025-03-29] MEDS: Loratadine 10 MG TABLET PO (08:01)
[2025-03-29] MEDS: Metoprolol Succinate ER 25 MG TAB.ER.24H PO (08:01)
[2025-03-29] MEDS: Potassium Chloride ER 10 MEQ TABLET.ER PO (08:08)
--- NOTE | 2025-03-29 09:39 | P.CONCA_ITS ---
History of Present Illness History of Present Illness Date of Service: 03/29/25 Chief complaint: DM gastroparesis,HTN urgency Narrative: This is a cardiology consultation regarding PVCs. He has a history of coronary artery disease and follows up with [facility]. Recently seen in clinic last month. Per notes, history of coronary disease and bypass surgery in 2018 [facility]. History of heart failure with preserved ejection fraction, peripheral arterial disease, diabetes with gastroparesis neuropathy, paroxysmal atrial fibrillation on Xarelto. He had complained of shortness of breath after walking about 25 ft and because of that it seems that an outpatient stress test has been ordered. Currently, patient is here for gastroparesis and in this context, there were PVCs noted on telemetry and we are consulted. Patient himself does not have any active cardiac symptoms. Main issue seems to be the gastroparesis. Review of Systems 2 Review of Systems: Yes all other systems are reviewed and are negative Constitutional: Constitutional: Reports as per HPI and Reports no additional constitutional complaints Eyes: Eyes: Reports as per HPI and Denies no additional eye complaints ENT: Denies system reviewed and no additional complaints, except as documented and Reports as per HPI Cardiovascular: Cardiovascular: Reports as per HPI, Reports no additional cardiovascular complaints, Denies acrocyanosis, Denies cool extremities, Denies chest pain, Denies leg edema, Denies lightheadedness, Denies palpitations and Denies dyspnea Respiratory: Respiratory: Reports as per HPI, Denies no additional respiratory complaints and Denies dyspnea Gastrointestinal: Gastrointestinal: Reports as per HPI and Denies no additional gastrointestinal complaints Genitourinary: Genitourinary: Reports no additional male genitourinary complaints and Reports as per HPI Musculoskeletal: Musculoskeletal: Reports no additional musculoskeletal complaints and Reports as per HPI Integumentary/Breasts: Skin/Breast: Reports system reviewed and no additional complaints, except as docu Neurologic: Reports system reviewed and no additional complaints, except as documented and Reports as per HPI Psychiatric: Psychiatric: Reports no additional psychiatric complaints and Reports as per HPI Endocrine: Endocrine: Reports no additional endocrine complaints, Reports as per HPI and Denies palpitations Hematologic/Lymphatic: Hematologic/Lymphatic: Reports no additional hematologic/lymphatic complaints and Reports as per HPI Allergic/Immunologic: Allergic/Immunologic: Reports no additional allergic/immunologic complaints and Reports as per HPI [facility] Past Medical History Medical History (Updated 03/29/25 @ 09:44 by Leobardo Payne MD) PVD (peripheral vascular disease) Gastroparesis DKA (diabetic ketoacidosis) Obesity (BMI 30-39.9) PAD (peripheral artery disease) Afib Amputation of left great toe Lower limb amputation, great toe CAD (coronary artery disease) DMII (diabetes mellitus, type 2) Orthopedic hardware present Hyperglycemia Cellulitis Asthma Diabetes Hypertension FHx: bilateral hip replacements Family History Family History (Updated 03/29/25 @ 09:43 by Leobardo Payne MD) Father Cancer of neck Mother Uterus cancer Other No family history of coronary artery disease Surgical History Surgical History History of amputation of toe (07/29/22) History of amputation of great toe (01/07/22) History of back surgery History of neck surgery History of ankle surgery H/O bilateral hip replacements S/P quadruple vessel bypass Social History Social History Household Members: Spouse Household Members Other:: 3 Housing: Apartment Are you a primary home day care provider to a significant other at home: No Do you presently have visiting nurse or other home services: No Alcohol intake: never Comment: refused bed or chair alarm Patient Tobacco Use Status: Former Tobacco user Tobacco use type: Cigarette e-Cigarette/Vaping Use: Never Used Second Hand Smoke Exposure: No Substance Use Type: Marijuana Advance Directives Date on File: 01/04/22 service: No Current occupational status: disabled Meds Allergies Allergy/AdvReac Type Severity Reaction Status Date / Time morphine AdvReac Intermediate Hallucinati Verified 03/23/25 10:24 ons Active Medications: Current Medications Acetaminophen (Acetaminophen 325 Mg Tablet) 650 mg PO Q6H PRN PRN Reason: Pain, Mild 1-3,fever,headache Last Admin: 03/29/25 03:32 Dose: 650 mg Aspirin (Aspirin Enteric Coated 81 Mg Tablet.) 81 mg PO DAILY [facility] Last Admin: 03/29/25 08:01 Dose: 81 mg Atorvastatin Calcium (Atorvastatin Calcium 80 Mg Tablet) 80 mg PO BEDTIME [facility] Last Admin: 03/28/25 20:40 Dose: 80 mg Calcium Carbonate (Calcium Carbonate 750 Mg Tab.Chew) 750 mg PO Q4H PRN PRN Reason: Heartburn Capsaicin (Capsaicin 0.025% Cream 60 Gm Tube) 1 appl TOPICAL QID PRN; Protocol PRN Reason: Pain, Mild 1-3,fever,headache Dextrose (Dextrose 50 % 25 Gm/50 Ml Syringe) 25 gm IVPUSH Q15M PRN; Protocol PRN Reason: per Hypoglycemia Standing Ord. Ezetimibe (Ezetimibe 10 Mg Tablet) 10 mg PO BEDTIME [facility] Last Admin: 03/28/25 21:06 Dose: 10 mg Furosemide (Furosemide 20 Mg Tablet) 20 mg PO DAILY [facility]; Protocol Last Admin: 03/29/25 08:01 Dose: 20 mg Gabapentin (Gabapentin 300 Mg Capsule) 300 mg PO TID [facility] Last Admin: 03/29/25 08:01 Dose: 300 mg Glucose (Glucose Gel 15 Gm Gel..Gram.) 15 gm PO Q15M PRN; Protocol PRN Reason: per Hypoglycemia Standing Ord. Insulin Glargine (Insulin Glargine,Hum.Rec.Anlog 100 Unit/Ml 10 Ml Vial) 8 unit SUBCUT DAILY [facility] Last Admin: 03/29/25 07:58 Dose: 8 unit Insulin Human Lispro (Insulin Lispro 100 Unit/Ml 3 Ml Vial) 0 unit SUBCUT QIDACHS [facility]; Protocol Last Admin: 03/29/25 07:58 Dose: 2 unit Isosorbide Mononitrate (Isosorbide Mononitrate 30 Mg Tab.Er.24h) 30 mg PO DAILY [facility]; Protocol Last Admin: 03/29/25 08:00 Dose: 30 mg Lidocaine (Lidocaine 4 % Patch Adh..Patch) 1 patch TRANSDERMA DAILY [facility]; Protocol Last Admin: 03/29/25 07:59 Dose: 1 patch Loratadine (Loratadine 10 Mg Tablet) 10 mg PO DAILY [facility] Last Admin: 03/29/25 08:01 Dose: 10 mg Magnesium Hydroxide (Milk Of Magnesia 30 Ml Oral.Susp) 30 ml PO DAILY PRN PRN Reason: Constipation Magnesium Oxide (Magnesium Oxide 400 Mg Tablet) 800 mg PO BIDPC [facility] Last Admin: 03/29/25 08:00 Dose: 800 mg Meclizine HCl (Meclizine Hcl 25 Mg Tablet) 25 mg PO TID PRN PRN Reason: Dizziness Or Vertigo Melatonin (Melatonin 3 Mg Tablet) 6 mg PO BEDTIME PRN PRN Reason: Insomnia Last Admin: 03/27/25 00:17 Dose: 6 mg Metoclopramide HCl (Metoclopramide Hcl 5 Mg Tablet) 5 mg PO Q6H PRN PRN Reason: Nausea and Vomiting Last Admin: 03/28/25 19:39 Dose: 5 mg Metoprolol Succinate (Metoprolol Succinate Er 25 Mg Tab.Er.24h) 25 mg PO DAILY [facility]; Protocol Last Admin: 03/29/25 08:01 Dose: 25 mg Omeprazole (Omeprazole 40 Mg Capsule.Dr) 40 mg PO BID@0630,1630 [facility] Last Admin: 03/29/25 05:33 Dose: 40 mg Oxycodone HCl (Oxycodone Hcl Immed Release 5 Mg Tablet) 5 mg PO Q4H PRN PRN Reason: Pain, Moderate(Pain Scale 4-6) Last Admin: 03/29/25 08:00 Dose: 5 mg Rivaroxaban (Rivaroxaban 20 Mg Tablet) 20 mg PO DAILY@1700 [facility] Last Admin: 03/28/25 17:16 Dose: 20 mg Sodium Chloride (0.9 % Sodium Chloride Flush 3 Ml Syringe) 3 ml IVFLUSH QSHIFT [facility] Last Admin: 03/29/25 08:01 Dose: 3 ml Venlafaxine HCl (Venlafaxine Hcl 25 Mg Tablet) 50 mg PO BID [facility] Last Admin: 03/29/25 08:01 Dose: 50 mg Home Medications ?Medication ?Instructions ?Recorded ?Confirmed ?Last Taken ?Type ezetimibe 10 mg tablet 10 mg PO BEDTIME 01/03/22 03/23/25 03/20/25 History gabapentin 300 mg capsule 300 mg PO TID 01/03/22 03/23/25 03/20/25 History insulin glargine 100 unit/mL 10 unit subcut BEDTIME 01/03/22 03/23/25 03/20/25 History subcutaneous solution (Lantus U-100 Insulin) isosorbide mononitrate 30 mg 30 mg PO DAILY 01/03/22 03/23/25 03/20/25 History tablet,extended release 24 hr loratadine 10 mg tablet 10 mg PO DAILY 01/03/22 03/23/25 03/20/25 History losartan 25 mg tablet 25 mg PO DAILY 01/03/22 03/23/25 03/20/25 History meclizine 25 mg tablet 25 mg PO TID PRN Dizziness Or 01/03/22 03/23/25 03/20/25 History Vertigo pantoprazole 40 mg tablet,delayed 40 mg PO BID@0630,1630 01/03/22 03/23/25 03/20/25 History release rosuvastatin 40 mg tablet 40 mg PO BEDTIME 01/03/22 03/23/25 03/20/25 History aspirin 81 mg tablet,delayed 81 mg PO DAILY 08/04/22 03/23/25 03/20/25 History release furosemide 20 mg tablet 20 mg PO DAILY 11/13/22 03/23/25 03/20/25 History metoprolol succinate 25 mg 25 mg PO DAILY 10/14/24 03/23/25 03/20/25 History tablet,extended release 24 hr insulin lispro 100 unit/mL See Protocol subcut QIDACHS 12/16/24 03/23/25 03/20/25 History subcutaneous solution oxycodone 10 mg tablet 10 mg PO Q4H PRN Pain 12/16/24 03/23/25 03/20/25 History rivaroxaban 20 mg tablet (Xarelto) 20 mg PO DAILY@1700 12/16/24 03/23/25 03/20/25 History insulin glargine 100 unit/mL 8 unit subcut DAILY 03/23/25 03/23/25 03/20/25 History subcutaneous solution (Lantus U-100 Insulin) venlafaxine 100 mg tablet 100 mg PO BID 03/23/25 03/23/25 03/20/25 History Physical Exam 2 Vital Signs: Vital Signs: Last Vital Signs Temp 96.9 F 03/29/25 07:30 Pulse 71 03/29/25 08:01 Resp 16 03/29/25 07:30 BP 119/50 L 03/29/25 08:01 Pulse Ox 99 03/29/25 07:30 O2 Del Method Room Air 03/29/25 07:30 O2 Flow Rate 100 03/23/25 12:29 BMI result Body Mass Index 33.2 Const: General: comfortable and no acute distress O rientation/consciousness: patient oriented x3 HEENT: Other: Unremarkable Head: Yes normal to inspection Neck: Neck: Yes normal visual inspection Chest: Chest palpation & inspection: normal inspection of the chest Resp: Auscultation: clear to auscultation bilaterally Cardio: Palpation: normal PMI Heart sounds: S1 normal heart sound present, S2 normal heart sound present, no gallops, no murmurs and no rubs GI: Palpation (GI): Soft to palpation Back/Spine/Pelvis: Other: unremarkable Skin: General skin exam: no rashes or lesions noted Neuro: General: patient oriented x3 Extrem: General: Yes normal to inspection Psych: Mental Status: mental status grossly normal Objective Labs and Meds 03/24/25 04:26 03/28/25 15:39 Lab results: Laboratory Results - last 24 hr 03/28/25 03/28/25 03/28/25 11:36 15:39 16:32 Sodium 140 Potassium 4.0 Chloride 107 Carbon Dioxide 26 Anion Gap 11 L BUN 8 L Creatinine 0.72 Estim Creat Clear Calc 118.2 Estimated GFR > 60 POC Glucose 227 H 200 H Random Glucose 204 H Calcium 9.5 Magnesium 2.1 03/28/25 03/29/25 20:24 07:36 Sodium Potassium Chloride Carbon Dioxide Anion Gap BUN Creatinine Estim Creat Clear Calc Estimated GFR POC Glucose 245 H 162 H Random Glucose Calcium Magnesium ECG Interpretation: EKG with underlying sinus rhythm at 96/Min; leftward axis; cannot exclude old inferior infarct. Appears similar to prior. Assessment and Plan (1) PVC (premature ventricular contraction): Status: Acute (2) S/P quadruple vessel bypass: Status: Acute (3) Diabetic gastroparesis: Status: Acute Plan Telemetry reviewed. Shows elevated PVCs but there were no significant runs. He does have an extensive cardiac history as documented above and already has outpatient testing in place through his usual [facility] pediatric nurse practitioner. At the current time, he does not have any active cardiac symptoms. We may treat the diabetic gastroparesis but otherwise, does not need anything done as an inpatient. He is already on beta-blockers and that can be continued. If indeed there are any significant runs of PVCs, then we will need to be reviewed again. Procedures Date of Service Date of Service: 03/29/25
--- NOTE | 2025-03-29 10:17 | MHC.CM.PN ---
pt dcd home self care
[2025-03-29 11:33] LABS: Glucose, Whole Blood 179 mg/dL (60-115)
--- NOTE | 2025-03-29 11:47 | P.DS_ITS ---
DS: Providers Provider Date of Service: 03/29/25 Date of admission: 03/23/25 15:27 Date of discharge: 03/29/25 Primary care physician: Marley Rick MD Consults: 03/23/25 16:05 Consult to Gastroenterology Routine Consulting Provider: Mi Cline Reason for consultation: gasteroparesis Has provider been notified: No 03/29/25 07:41 Consult to Cardiology Routine Consulting Provider: [facility] Reason for consultation: frequent bigemny/trigemny persistent -unclear etiology Has provider been notified: No Attending physician on discharge: Roni Hall Discharging clinician: Roni Hall DS: Diagnosis Discharge Diagnosis (1) PVC (premature ventricular contraction): Status: Acute (2) S/P quadruple vessel bypass: Status: Acute (3) Diabetic gastroparesis: Status: Acute DS: Summary Hospital Course Hospital Course: HPI:64-year-old male with history of presumed diabetic gastroparesis with multiple recurrent admissions -came with nausea vomiting and afterwards had some mild abdominal discomfort, feeling generalized weak, he says his presentation is similar to last time when he was treated for gastroparesis. He denies any aggravating or elevating food or any factors. Denies any urinary complaints or shortness of breath or cough or fever or chills. Patient has had this time nausea vomiting started 2 days back, also had 3 episode of liquid stool . Last BM today. Abdominal pain mostly in the epigastric area specially with the vomiting. Has mild tachycardia and elevated blood pressure, did not take his blood pressure medication today. Mild leukocytosis of 12.4. Did not eat or drink well at least a day or so. Labs: Renal function electrolytes normal, bicarb is 18, anion gap normal, pH is also normal. Has mild elevated in b-oxybutrate 1.8 (which is better than before.) kub:Nonspecific air-fluid levels left hemiabdomen. Consider regional ileus. ekg nsr -qtc 492 Hospital course: Diabetic gastroparesis: Improved with the supportive care hydration, antiemetic s and PPIs, pain medication. diarrhea which is improved. Patient is eating tolerating diet, passing BM. Denies any new complaints. Patient will be going home with p.o. PPIs, given oxycodone p.r.n., patient was strongly advised to follow-up with his PCP and GI outpatient. For PVCs is electrolytes are normal, patient is already on metoprolol, patient has already cardiac workup planned outpatient. 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 plan: Continue PPI, soft diet, p.r.n. oxycodone. Follow-up with GI outpatient Also needs to follow up with [facility] outpatient If any new symptoms including nausea vomiting or diarrhea or fever - please go to nearest emergency room. Above management discussed with the patient and his in detail length they both understand and in agreement with the above plan, time spent 40 minute, all question answered. Time Attestation Total time managing care of this patient today: 40 mintues. Discharge Coordination Time (in mins): 40min Quality: Safe Use of Opioids Does Pt have an Active Cancer Diagnosis on the Problem List?: No Quality: Stroke Does the patient have a stroke diagnosis?: No Physical Exam Vital Signs: Vital Signs: Last Vital Signs Temp 96.9 F 03/29/25 07:30 Pulse 71 03/29/25 08:01 Resp 16 03/29/25 07:30 BP 119/50 L 03/29/25 08:01 Pulse Ox 99 03/29/25 07:30 O2 Del Method Room Air 03/29/25 07:30 O2 Flow Rate 100 03/23/25 12:29 BMI result Body Mass Index 33.2 Appearance: Alert.? Oriented X3.? cvs: rrr, [id number] . res: clear to auscultation ,no rhonchii or wheezing abd:soft,nt, bs present. ext pulses present , no cyanosis . neuro: axo3 , nonfocal. DS: Data Data Completed and Pending Completed studies during hospitalization [Text1]: Procedures Detachment at Left 1st Toe, Complete, Open Approach (01/03/22) Drainage of Pelvic Region Subcutaneous Tissue and Fascia, Open Approach (04/30/23) Fluoroscopy of Left Lower Extremity Arteries using High Osmolar Contrast (08/04/22) Fluoroscopy of Right Subclavian Vein using Low Osmolar Contrast, Guidance (08/04/22) Insertion of Infusion Device into Right Subclavian Vein, Percutaneous Approach (08/04/22) Insertion of Infusion Device into Superior Vena Cava, Percutaneous Approach (01/20/22) Ultrasonography of Superior Vena Cava, Guidance (01/03/22) Labs on day of discharge: Laboratory Results - last 24 hr 03/28/25 03/28/25 03/28/25 15:39 16:32 20:24 Sodium 140 Potassium 4.0 Chloride 107 Carbon Dioxide 26 Anion Gap 11 L BUN 8 L Creatinine 0.72 Estim Creat Clear Calc 118.2 Estimated GFR > 60 POC Glucose 200 H 245 H Random Glucose 204 H Calcium 9.5 Magnesium 2.1 03/29/25 03/29/25 07:36 11:21 Sodium Potassium Chloride Carbon Dioxide Anion Gap BUN Creatinine Estim Creat Clear Calc Estimated GFR POC Glucose 162 H 179 H Random Glucose Calcium Magnesium Imaging Chest x-ray: Radiologist's impression: ITS Impressions Abdomen X-Ray 03/23/25 13:02 IMPRESSION: Nonspecific air-fluid levels left hemiabdomen. Consider regional ileus. Discharge Plan Discharge Anticipated Discharge Date/Time: 03/29/25 11:37 Patient Disposition: Home, Self-Care Discharge Diagnosis: dm gasteroparesis ,pvc Referrals: Marley Rick MD [Primary Care Provider] - 1 Week Discharge Medications: New lidocaine [Lidocaine Pain Relief] 4 % Adhesive Patch,Medicated 1 patch transdermal DAILY Qty: 7 0RF Protocol: Apply to: Apply to: pain area capsaicin 0.025 % Cream 1 appl topical QID PRN (Reason: Pain, Mild 1-3,Fever,Headache) Qty: 1 0RF Protocol: Apply to: Apply to: affected area Continued (DME) walker Misc See Rx Instructions .Route Qty: 1 0RF Rx Instructions: As directed (DME) Aircast off loading boot Kit See Rx Instructions .Route Qty: 1 0RF Rx Instructions: As directed (DME) elastic bandage 6 X 1.8 -yard bandage See Rx Instructions .Route Qty: 6 0RF Rx Instructions: As directed (DME) gauze bandage [Band-Aid Gauze Pads] 4 X 4 bandage See Rx Instructions .Route Qty: 25 3RF Rx Instructions: As directed (DME) sterile gauze 4x4 See Rx Instructions .Route .MEDSUPPLY Qty: 40 3RF Rx Instructions: Apply to left foot wound every other day (DME) calcium alginate ag 4x4 pad See Rx Instructions .Route .MEDSUPPLY Qty: 5 2RF Rx Instructions: Apply to wound beds every other day insulin glargine [Lantus U-100 Insulin] 100 unit/mL solution 10 unit subcut BEDTIME isosorbide mononitrate 30 mg tablet extended release 24 hr 30 mg PO DAILY losartan 25 mg tablet 25 mg PO DAILY gabapentin 300 mg capsule 300 mg PO TID loratadine 10 mg tablet 10 mg PO DAILY ezetimibe 10 mg tablet 10 mg PO BEDTIME rosuvastatin 40 mg tablet 40 mg PO BEDTIME meclizine 25 mg tablet 25 mg PO TID PRN (Reason: Dizziness Or Vertigo) (DME) jw [facility] See Rx Instructions .Route Qty: 1 0RF Rx Instructions: As directed aspirin 81 mg tablet,delayed release (DR/EC) 81 mg PO DAILY furosemide 20 mg tablet 20 mg PO DAILY metoprolol succinate 25 mg tablet extended release 24 hr 25 mg PO DAILY insulin lispro 100 unit/mL solution See Protocol subcut QIDACHS Protocol: Insulin Correction Scale Less than or equal to 110 ---- Give (units): 0 111 to 150 Give (units): 0 151 to 200 Give (units): 2 201 to 250 Give (units): 4 251 to 300 Give (units): 6 301 to 350 Give (units): 8 Greater than 350 Give (units): 10 Call MD if Blood Glucose > : 350 Xarelto 20 mg tablet 20 mg PO DAILY@1700 insulin glargine [Lantus U-100 Insulin] 100 unit/mL solution 8 unit SUBCUT DAILY venlafaxine 100 mg tablet 50 mg PO BID Qty: 1 0RF oxycodone 10 mg tablet 10 mg PO Q4H PRN (Reason: Pain) Qty: 10 0RF pantoprazole 40 mg tablet,delayed release (DR/EC) 40 mg PO BID@0630,1630 Qty: 60 0RF Discharge Orders: Discharge Order (Routine); Ordered 03/29/25 Ordered By: Roni Hall Diet: Advance to usual diet Activity on Discharge: As tolerated Stand Alone Forms: Patient Portal Discharge page Print Language: Kazakh Care Plan Goals: as below. Health Concerns: Continue PPI, soft diet, p.r.n. oxycodone. Follow-up with GI outpatient Also needs to follow up with BMP outpatient If any new symptoms including nausea vomiting or diarrhea or fever - please go to nearest emergency room. Plan of Treatment: As above. Assessment: As above.
== END 2025-03-29 13:49 | disposition home or self-care (01) | DRG 48 ==
LOC: HO.ED 10:31 → HO.EDOVER 15:43 → HO.S3 03-24 13:54
PROVIDERS: Admitting Provider Family Medicine; Emergency Provider Emergency Medicine; PCP Internal Medicine; Visit Provider Internal Medicine
DX: E11.43 Type 2 diabetes mellitus with diabetic autonomic (poly)neuropathy (principal); E11.65 Type 2 diabetes mellitus with hyperglycemia; I25.10 Atherosclerotic heart disease of native coronary artery without angina pectoris; I48.0 Paroxysmal atrial fibrillation; I10 Essential (primary) hypertension; E78.5 Hyperlipidemia, unspecified; K31.84 Gastroparesis; I49.3 Ventricular premature depolarization; Z87.891 Personal history of nicotine dependence; Z79.4 Long term (current) use of insulin; Z79.01 Long term (current) use of anticoagulants; Z79.82 Long term (current) use of aspirin; Z79.899 Other long term (current) drug therapy
CPT/HCPCS: 36415; 74018; 80048; 80053; 82010; 82803; 82947; 83735; 85025; 85027; 93005; 99285; J0131; J0360; J1171; J1308; J1364; J1650; J1790; J2405; J2470; J2765; J3360; J7120

== ENCOUNTER → 2025-03-23 10:33 | Outpatient (BNV) | payer OTHER, SELFPAY | PROVIDERS: Admitting Provider Family Medicine; Emergency Provider Emergency Medicine; Visit Provider Internal Medicine Cardiovascular Disease | DX: I25.2 Old myocardial infarction (principal) | CPT/HCPCS: 93010 ==

== ENCOUNTER → 2025-03-23 11:48 | Outpatient (BNV) | payer OTHER, SELFPAY | PROVIDERS: Emergency Provider Emergency Medicine; Visit Provider Radiology Diagnostic Radiology | DX: R10.9 Unspecified abdominal pain (principal) | CPT/HCPCS: 74018 ==

== ENCOUNTER → 2025-03-23 15:27 | Outpatient (BNV) | payer OTHER, SELFPAY | PROVIDERS: Admitting Provider Family Medicine; Emergency Provider Emergency Medicine; PCP Internal Medicine; Visit Provider Internal Medicine Gastroenterology | DX: E11.43 Type 2 diabetes mellitus with diabetic autonomic (poly)neuropathy (principal); K31.84 Gastroparesis; R10.9 Unspecified abdominal pain; R11.2 Nausea with vomiting, unspecified | CPT/HCPCS: 99222 ==

== ENCOUNTER → 2025-03-23 15:27 | Outpatient (BNV) | payer OTHER, SELFPAY | PROVIDERS: Admitting Provider Family Medicine; Emergency Provider Emergency Medicine; Visit Provider Internal Medicine | DX: E11.43 Type 2 diabetes mellitus with diabetic autonomic (poly)neuropathy (principal); K31.84 Gastroparesis | CPT/HCPCS: 99222; 99232 ==

== ENCOUNTER → 2025-03-23 15:27 | Outpatient (BNV) | payer OTHER, SELFPAY | PROVIDERS: Admitting Provider Family Medicine; Emergency Provider Emergency Medicine; PCP Internal Medicine; Visit Provider Internal Medicine | DX: I49.3 Ventricular premature depolarization (principal); Z95.1 Presence of aortocoronary bypass graft; E11.43 Type 2 diabetes mellitus with diabetic autonomic (poly)neuropathy; K31.84 Gastroparesis | CPT/HCPCS: 99223 ==

== ENCOUNTER 2025-05-24 16:11 | Emergency (ER) | payer OTHER, SELFPAY ==
--- NOTE | 2025-05-24 16:20 | ED.NAVMDI ---
HPI - Nausea/Vomiting/Diarrhea General Chief complaint: Nausea/Vomiting/Diarrhea Stated complaint: vomiting x2 days, has gastroparesis Time Seen by Provider: 05/24/25 16:12 Source: patient Mode of arrival: EMS Limitations: no limitations History of Present Illness ED Provider: HPI Narrative: Patient with History of type 2 diabetes gastroparesis, anxiety depression been here multiple times abdominal pain comes here for similar complaints started 3 days ago vomiting multiple times any solids or liquids down complaining of diffuse abdominal cramps no fever no chills Related Data Home Medications ?Medication ?Instructions ?Recorded ?Confirmed ezetimibe 10 mg tablet 10 mg PO BEDTIME 01/03/22 05/26/25 gabapentin 300 mg capsule 300 mg PO TID 01/03/22 05/26/25 insulin glargine 100 unit/mL 10 unit subcut BEDTIME 01/03/22 05/26/25 subcutaneous solution (Lantus U-100 Insulin) isosorbide mononitrate 30 mg 30 mg PO DAILY 01/03/22 05/26/25 tablet,extended release 24 hr loratadine 10 mg tablet 10 mg PO DAILY 01/03/22 05/26/25 losartan 25 mg tablet 25 mg PO DAILY 01/03/22 05/26/25 meclizine 25 mg tablet 25 mg PO TID PRN Dizziness Or 01/03/22 05/26/25 Vertigo rosuvastatin 40 mg tablet 40 mg PO BEDTIME 01/03/22 05/26/25 aspirin 81 mg tablet,delayed 81 mg PO DAILY 08/04/22 05/26/25 release furosemide 20 mg tablet 20 mg PO DAILY 11/13/22 05/26/25 metoprolol succinate 25 mg 25 mg PO DAILY 10/14/24 05/26/25 tablet,extended release 24 hr insulin lispro 100 unit/mL See Protocol subcut QIDACHS 12/16/24 05/26/25 subcutaneous solution rivaroxaban 20 mg tablet (Xarelto) 20 mg PO DAILY@1700 12/16/24 05/26/25 insulin glargine 100 unit/mL 8 unit subcut DAILY 03/23/25 05/26/25 subcutaneous solution (Lantus U-100 Insulin) glucagon 1 mg/0.2 mL subcutaneous 1 mg subcut ONCE PRN Hypoglycemia 05/26/25 05/26/25 auto-injector (Gvoke HypoPen 2-Pack) lidocaine 4 % topical patch 1 patch transdermal DAILY PRN Pain 05/26/25 05/26/25 (Lidocaine Pain Relief) pantoprazole 40 mg tablet,delayed 40 mg PO TID@0630,1130,1630 05/26/25 05/26/25 release Previous Rx's ?Medication ?Instructions ?Recorded walker #1 ea 01/11/22 walker #1 ea 01/15/22 Band-Aid Gauze Pads 4 X 4 #25 ea 04/16/22 bandage (gauze bandage) elastic bandage 6 X 1.8 yard #6 ea 04/16/22 off loading boot (Aircast off #1 ea 04/16/22 loading boot) calcium alginate ag #5 ea 04/23/22 sterile gauze #40 ea 04/23/22 oxycodone 10 mg tablet 10 mg PO Q4H PRN Pain #10 tabs 03/29/25 venlafaxine 100 mg tablet 50 mg (1/2 x 100 mg) PO BID #1 tab 03/29/25 metoclopramide HCl 10 mg tablet 10 mg PO Q8H PRN nausea and 05/24/25 (Reglan) vomiting #90 tabs Allergies Allergy/AdvReac Type Severity Reaction Status Date / Time morphine AdvReac Intermediate Hallucinati Verified 05/25/25 22:16 ons Review of Systems Review of Systems: Yes all other systems are reviewed and are negative [facility] Past Medical History Medical History Hypertensive urgency Abdominal pain PVD (peripheral vascular disease) Gastroparesis DKA (diabetic ketoacidosis) Obesity (BMI 30-39.9) PAD (peripheral artery disease) Afib Amputation of left great toe Lower limb amputation, great toe CAD (coronary artery disease) DMII (diabetes mellitus, type 2) Orthopedic hardware present Hyperglycemia Cellulitis Asthma Diabetes Hypertension FHx: bilateral hip replacements Surgical History History of amputation of toe (07/29/22) History of amputation of great toe (01/07/22) History of back surgery History of neck surgery History of ankle surgery H/O bilateral hip replacements S/P quadruple vessel bypass Family History Family History Father Cancer of neck Mother Uterus cancer Other No family history of coronary artery disease Social History Social History Household Members: Spouse Household Members Other:: 3 Housing: Apartment Are you a primary critical care transport nurse to a significant other at home: No Do you presently have visiting nurse or other home services: No Alcohol intake: never Comment: refused bed or chair alarm Patient Tobacco Use Status: Former Tobacco user Tobacco use type: Cigarette e-Cigarette/Vaping Use: Never Used Second Hand Smoke Exposure: No Substance Use Type: Marijuana Advance Directives Date on File: 01/04/22 service: Yes Current occupational status: disabled Physical Exam Vital Signs: Vital Signs: Last Vital Signs Temp 98.7 F 05/24/25 22:06 Pulse 90 05/24/25 22:06 Resp 16 05/24/25 22:06 BP 133/69 05/24/25 22:06 Pulse Ox 96 05/24/25 18:41 O2 Del Method Room Air 05/24/25 18:41 BMI result Body Mass Index 36.4 Appearance: Alert. Oriented X3. No acute distress. Eyes: PERRLA, No Nystagmus ENT: Pharynx normal. Oral Mucosa moist Neck: Normal inspection. Neck supple. CVS: Normal heart rate and rhythm. Pulses normal. Respiratory: No respiratory distress. Equal air entry bilateral, no wheezing/rales/rhonchi Abdomen: Soft and diffuse tenderness Bowel sounds are present, no mass palpable, no CVA tenderness Skin: Skin warm and dry. Normal skin color. Normal skin turgor. Extremities: No lower extremity edema. No calf tenderness Neuro: Oriented X 3. No motor deficit. Medications Administered Discontinued Medications Generic Name Dose Route Start Last Admin Trade Name Freq PRN Reason Stop Dose Admin Hydromorphone HCl 1 mg 05/24/25 16:22 05/24/25 16:40 Hydromorphone Hcl 1 Mg/Ml Syringe IVPUSH 05/24/25 16:23 1 mg ONCE ONE Administration Protocol Hydromorphone HCl 1 mg 05/24/25 19:46 05/24/25 19:52 Hydromorphone Hcl 1 Mg/Ml Syringe IVPUSH 05/24/25 19:47 1 mg ONCE ONE Administration Protocol Sodium Chloride 1,000 mls @ 999 mls/hr 05/24/25 16:22 05/24/25 17:50 Ns IV 05/24/25 17:22 Infused .Q1H1M ONE Infusion Sodium Chloride 1,000 mls @ 999 mls/hr 05/24/25 19:48 05/24/25 22:06 Ns IV 05/24/25 20:48 Infused .Q1H1M ONE Infusion Insulin Human Lispro 5 unit 05/24/25 21:34 05/24/25 21:57 Insulin Lispro 100 Unit/Ml 3 Ml Vial SUBCUT 05/24/25 21:35 5 unit ONCE ONE Administration Midazolam HCl 2 mg 05/24/25 16:22 05/24/25 16:40 Midazolam Hcl 2 Mg/2 Ml Vial IVPUSH 05/24/25 16:23 2 mg ONCE ONE Administration Prochlorperazine Edisylate 10 mg 05/24/25 16:22 05/24/25 16:40 Prochlorperazine Edisylate 10 Mg/2 Ml Vial IVPUSH 05/24/25 16:23 10 mg ONCE ONE Administration Medical Decision Making Medical Decision Making MDM Narrative: Patient's gastroparesis with frequent vomiting improved after IV fluids and Compazine taking p.o. fluids discharge patient home Lab Data [facility] Lab Attestation statement: I reviewed the patient's lab results. 05/24/25 16:52 05/24/25 16:52 Labs: Lab Results 05/24/25 05/24/25 05/24/25 Range/Units 16:52 19:51 21:50 WBC 11.1 H (4.8-10.8) X10*3/uL RBC 4.66 (4.60-5.80) X10*6/uL Hgb 13.6 L (14.0-18.0) g/dl Hct 39.5 L (42.0-52.0) % MCV 84.8 (80.0-98.0) fL MCH 29.2 (27.0-33.0) pg MCHC 34.4 (31.0-36.0) g/dl RDW 14.2 (11.0-16.0) % Plt Count 275 (160-400) X10*3/uL MPV 10.0 (9.4-12.4) fL Immature Gran % (Auto) 0.4 (0.0-0.4) % Neut % (Auto) 79.3 H (45-73) % Lymph % (Auto) 15.5 L (20-40) % [place] % (Auto) 4.3 (2-11) % Eos % (Auto) 0.1 (0-4) % Baso % (Auto) 0.4 (0-2) % Lymph # (Auto) 1.7 (1.2-4.9) X10*3/uL [place] # (Auto) 0.5 (0.1-1.2) X10*3/uL Eos # (Auto) 0.0 (0.0-0.4) X10*3/uL Baso # (Auto) 0.0 (0.0-0.2) X10*3/uL Abs Immat Gran (auto) 0.04 H (0.00-0.03) X10*3/uL Absolute Neuts (auto) 8.8 H (2.0-8.3) x10*3/uL Absolute Nucleated RBC 0.000 (0.0-0.012) X10*3/uL Nucleated RBC % (auto) 0.0 (0.0-0.2) /100WBC Sodium 141 (135-145) mmol/L Potassium 3.9 (3.3-5.1) mmol/L Chloride 109 H (96-108) mmol/L Carbon Dioxide 16 L (22-29) mmol/L Anion Gap 20 (12-20) BUN 8 L (9-16) mg/dL Creatinine 0.66 (0.5-1.4) mg/dL Estim Creat Clear Calc 135.1 Estimated GFR > 60 POC Glucose 318 H 252 H (60-115) mg/dL Random Glucose 302 H (60-115) mg/dL Calcium 9.0 (8.4-10.2) mg/dL Magnesium 2.0 (1.6-2.6) mg/dL Total Bilirubin 0.6 (0.0-1.0) mg/dL AST 18 (5-37) U/L ALT 6 (0-40) U/L Alkaline Phosphatase 74 (39-117) U/L Total Protein 6.8 (6.5-8.0) g/dL Albumin 4.2 (3.5-5.0) g/dL Lipase 4 L (8-78) U/L Discharge Plan Discharge Clinical Impression: Diabetic gastroparesis Patient Disposition: Home, Self-Care Instructions: Diabetic Gastroparesis (DC) Additional Instructions: Continue take your Reglan 10 mg 3 times a day before meals as needed Follow up with your PCP/park manager Drink plenty of fluids Prescriptions: New metoclopramide HCl [Reglan] 10 mg tablet 10 mg PO Q8H PRN (Reason: nausea and vomiting) Qty: 90 0RF No Action (DME) jw [facility] See Rx Instructions .Route Qty: 1 0RF Rx Instructions: As directed (DME) Aircast off loading boot Kit See Rx Instructions .Route Qty: 1 0RF Rx Instructions: As directed (DME) elastic bandage 6 X 1.8 -yard bandage See Rx Instructions .Route Qty: 6 0RF Rx Instructions: As directed (DME) gauze bandage [Band-Aid Gauze Pads] 4 X 4 bandage See Rx Instructions .Route Qty: 25 3RF Rx Instructions: As directed (DME) sterile gauze 4x4 See Rx Instructions .Route .MEDSUPPLY Qty: 40 3RF Rx Instructions: Apply to left foot wound every other day (DME) calcium alginate ag 4x4 pad See Rx Instructions .Route .MEDSUPPLY Qty: 5 2RF Rx Instructions: Apply to wound beds every other day insulin glargine [Lantus U-100 Insulin] 100 unit/mL solution 10 unit subcut BEDTIME isosorbide mononitrate 30 mg tablet extended release 24 hr 30 mg PO DAILY losartan 25 mg tablet 25 mg PO DAILY gabapentin 300 mg capsule 300 mg PO TID loratadine 10 mg tablet 10 mg PO DAILY ezetimibe 10 mg tablet 10 mg PO BEDTIME rosuvastatin 40 mg tablet 40 mg PO BEDTIME meclizine 25 mg tablet 25 mg PO TID PRN (Reason: Dizziness Or Vertigo) (DME) jw [facility] See Rx Instructions .Route Qty: 1 0RF Rx Instructions: As directed aspirin 81 mg tablet,delayed release (DR/EC) 81 mg PO DAILY furosemide 20 mg tablet 20 mg PO DAILY metoprolol succinate 25 mg tablet extended release 24 hr 25 mg PO DAILY insulin lispro 100 unit/mL solution See Protocol subcut QIDACHS Protocol: Insulin Correction Scale Less than or equal to 110 ---- Give (units): 0 111 to 150 Give (units): 0 151 to 200 Give (units): 2 201 to 250 Give (units): 4 251 to 300 Give (units): 6 301 to 350 Give (units): 8 Greater than 350 Give (units): 10 Call MD if Blood Glucose > : 350 Xarelto 20 mg tablet 20 mg PO DAILY@1700 insulin glargine [Lantus U-100 Insulin] 100 unit/mL solution 8 unit SUBCUT DAILY venlafaxine 100 mg tablet 50 mg PO BID Qty: 1 0RF oxycodone 10 mg tablet 10 mg PO Q4H PRN (Reason: Pain) Qty: 10 0RF Gvoke HypoPen 2-Pack 1 mg/0.2 mL auto-injector 1 mg SUBCUT ONCE PRN (Reason: Hypoglycemia) lidocaine [Lidocaine Pain Relief] 4 % adhesive patch,medicated 1 patch transdermal DAILY PRN (Reason: Pain) Protocol: Apply to: Apply to: pain area pantoprazole 40 mg tablet,delayed release (DR/EC) 40 mg PO TID@0630,1130,1630 Interventions: ED Discharge Assessment Last Done: 05/24/25 22:06 Discharge Date/Time: 05/24/25 22:14 Print Language: Occitan
[2025-05-24 16:30] VITALS: BP 146/87; PULSE 101; O2SAT 99; BMI 36.4
[2025-05-24 16:40] VITALS: RESP 18
[2025-05-24 16:56] LABS: MANUAL DIFF FLAG NO
[2025-05-24 16:57] LABS: Hematocrit 39.5 % (42.0-52.0); Hemoglobin 13.6 g/dl (14.0-18.0); Imm Gran Abs Auto 0.04 X10*3/uL (0.00-0.03); Imm Gran Pct Auto 0.4 % (0.0-0.4); Lymphocytes Absolute Auto 1.7 X10*3/uL (1.2-4.9); Mean Corpuscular HGB Conc 34.4 g/dl (31.0-36.0); Mean Corpuscular Hemoglobin 29.2 pg (27.0-33.0); Mean Corpuscular Volume 84.8 fL (80.0-98.0); NRBC Abs Auto 0.000 X10*3/uL (0.0-0.012); NRBC Pct Auto 0.0 /100WBC (0.0-0.2); Platelet Count 275 X10*3/uL (160-400); Red Blood Count 4.66 X10*6/uL (4.60-5.80); White Blood Count 11.1 X10*3/uL (4.8-10.8)
[2025-05-24 17:10] LABS: Alanine Aminotransferase 6 U/L (0-40); Albumin Level 4.2 g/dL (3.5-5.0); Alkaline Phosphatase 74 U/L (39-117); Anion Gap 20 (12-20); Aspartate Amino Transferase 18 U/L (5-37); Blood Urea Nitrogen 8 mg/dL (9-16); Calcium 9.0 mg/dL (8.4-10.2); Carbon Dioxide 16 mmol/L (22-29); Chloride 109 mmol/L (96-108); Creatinine Clr Calc Pharmacy 135.1; Estimated Glomerular Filt Rate > 60; Lipase 4 U/L (8-78); Magnesium 2.0 mg/dL (1.6-2.6); Potassium 3.9 mmol/L (3.3-5.1); Sodium 141 mmol/L (135-145); Total Protein 6.8 g/dL (6.5-8.0)
[2025-05-24 18:41] VITALS: BP 136/80; PULSE 64; RESP 18; TEMP 36.6; O2SAT 96
[2025-05-24 19:52] VITALS: RESP 18
[2025-05-24 19:55] LABS: Glucose, Whole Blood 318 mg/dL (60-115)
[2025-05-24 21:54] LABS: Glucose, Whole Blood 252 mg/dL (60-115)
[2025-05-24 21:55] VITALS: BP 133/69; PULSE 90; RESP 16; TEMP 37.1
[2025-05-24 22:06] VITALS: BP 133/69; PULSE 90; RESP 16; TEMP 37.1
== END 2025-05-24 22:14 | disposition home or self-care (01) ==
PROVIDERS: Emergency Provider Internal Medicine; PCP Internal Medicine
DX: E11.43 Type 2 diabetes mellitus with diabetic autonomic (poly)neuropathy (principal); K31.84 Gastroparesis; I10 Essential (primary) hypertension; E78.5 Hyperlipidemia, unspecified; J45.909 Unspecified asthma, uncomplicated; I48.91 Unspecified atrial fibrillation; Z87.891 Personal history of nicotine dependence; Z79.02 Long term (current) use of antithrombotics/antiplatelets; Z79.82 Long term (current) use of aspirin; Z79.4 Long term (current) use of insulin; Z79.01 Long term (current) use of anticoagulants; Z79.899 Other long term (current) drug therapy
CPT/HCPCS: 36415; 80053; 82947; 83690; 83735; 85025; 96361; 96374; 96375; 96376; 99284; J0737; J1171; J2250

== ENCOUNTER 2025-05-25 22:00 | Inpatient (IN) | payer OTHER, SELFPAY ==
--- NOTE | 2025-05-25 | ECG_ITS ---
Test Reason : TACHICARDIA Blood Pressure : */* mmHG Vent. Rate : 105 BPM Atrial Rate : 105 BPM P-R Int : 180 ms QRS Dur : 92 ms QT Int : 370 ms P-R-T Axes : 61 -12 37 degrees QTcB Int : 489 ms Sinus tachycardia Otherwise normal ECG When compared with ECG of 23-Mar-2025 10:33, No significant change was found Referred By: Generic ED Physician Electronically Signed By: YINA MERRILL MD
--- NOTE | ~2025-05-25 | CT_ITS ---
CLINICAL HISTORY: intractable abd pain, nausea, vomiting CT abdomen and pelvis without contrast Comparison: CT/SR - CT ABDOMEN PELVIS W IV CON - 02/25/25 09:07 EDT Findings: The lung bases are clear. The patient is status post cholecystectomy. There is pancreatic atrophy. The rest of the solid organs are unremarkable. There is a small duodenum diverticulum. Chronic inflammatory changes with soft tissue calcifications are seen within the anterior abdominal wall pannus. Pelvic contents unremarkable. Normal appendix. The patient is status post bilateral total hip replacements. There also postoperative changes related to the lumbar spine at the L4 through S1 levels. There is chronic compression fracture of L5. There also chronic compression fractures of T8 and T9. IMPRESSION: No acute findings. Chronic findings as above. This document has been electronically signed by: Beni Glasgow MD on 05/26/2025 07:52:31
--- NOTE | ~2025-05-25 | CT_ITS ---
CLINICAL HISTORY: abd pain CT abdomen and pelvis with contrast Comparison: None provided Findings: The lung bases are clear. The gallbladder is absent. The liver, spleen, adrenal glands and pancreas are without acute abnormality. The pancreas is mildly atrophic. Kidneys, ureters and bladder are within normal limits. Normal appendix. No bowel obstruction or free air. Severe atherosclerotic disease. Degenerative changes seen within the spine. Moderate T9 compression fracture, chronic appearing. Calcified injection granulomas noted within the lower abdomen bilaterally. Impression: No definite acute process. Several chronic and/or incidental findings as detailed. This document has been electronically signed by: Maco Moore MD on 05/29/2025 10:31:05
[2025-05-25 22:14] VITALS: BP 188/88; BP 210/117; PULSE 113; PULSE 115; RESP 18; TEMP 37; O2SAT 96; O2SAT 98; BMI 39.2
--- OUTSIDE RECORDS SUMMARY | 2025-05-25 22:21 | XMS_ITS | Clinical Summary ---
Author Organization [facility] Address [address] [place] [id number] Phone Care Team Providers Care Health Diagnostics Teacher Name Role Phone Marley Rick MD Primary Care Provider [phone]- [phone] Social History Tobacco Use Types Packs/Day Years Used Date Smoking Tobacco: Never Assessed Education Answer Date Recorded Are you interested in more education? Not on katerin e 02/07/2025 Are you concerned about learning? Not on file 02/07/2025 No 02/07/2025 No 02/07/2025 Digital Access Answer Date Recorded No 02/07/2025 No 02/07/2025 Reliable internet access at home? Not on file 02/07/2025 Device with a working camera? Not on file Sex and Gender Information Value Date Recorded Sex Assigned at Not on file Legal Sex Male 12:53 PM EDT Gender Identity Not on file Sexual Orientation Not on file Plan of Treatment Not on file Medical Devices Not on file Insurance [facility] [employer] [place] [address] [address] [place] [address] [employer] [address] [place] [address] [employer] [facility] [employer] Care Teams Health Diagnostics Teacher Relationship Specialty Start Date End Date Marley Rick MD [address] [place] [id number] PCP - General Internal Medicine 02/07/25 Additional Source Comments The information contained in this document represents components of the legal health record. It is not the complete legal health record.[facility]
[2025-05-25 22:28] LABS: MANUAL DIFF FLAG NO
[2025-05-25 22:29] LABS: Hematocrit 41.3 % (42.0-52.0); Hemoglobin 14.5 g/dl (14.0-18.0); Imm Gran Abs Auto 0.06 X10*3/uL (0.00-0.03); Imm Gran Pct Auto 0.4 % (0.0-0.4); Lymphocytes Absolute Auto 2.7 X10*3/uL (1.2-4.9); Mean Corpuscular HGB Conc 35.1 g/dl (31.0-36.0); Mean Corpuscular Hemoglobin 29.4 pg (27.0-33.0); Mean Corpuscular Volume 83.8 fL (80.0-98.0); NRBC Abs Auto 0.000 X10*3/uL (0.0-0.012); NRBC Pct Auto 0.0 /100WBC (0.0-0.2); Platelet Count 320 X10*3/uL (160-400); Red Blood Count 4.93 X10*6/uL (4.60-5.80); White Blood Count 15.8 X10*3/uL (4.8-10.8)
[2025-05-25 23:10] LABS: Alanine Aminotransferase 11 U/L (0-40); Albumin Level 4.3 g/dL (3.5-5.0); Alkaline Phosphatase 74 U/L (39-117); Anion Gap 19 (12-20); Aspartate Amino Transferase 23 U/L (5-37); Blood Urea Nitrogen 11 mg/dL (9-16); Calcium 9.2 mg/dL (8.4-10.2); Carbon Dioxide 17 mmol/L (22-29); Chloride 108 mmol/L (96-108); Creatinine Clr Calc Pharmacy 128.7; Estimated Glomerular Filt Rate > 60; Lipase 4 U/L (8-78); Potassium 3.8 mmol/L (3.3-5.1); Sodium 140 mmol/L (135-145); Total Protein 7.2 g/dL (6.5-8.0)
[2025-05-26] VITALS (11 sets, daily range): BP systolic 128–193; BP diastolic 62–106; PULSE 65–112; RESP 12–23; TEMP 36.2–37.3; O2SAT 95–98; BMI 32.4
[2025-05-26 02:20] LABS: Appearance Urine Clear; Glucose Urine UA >=1000 mg/dL (Negative); PH 5.5 (5.0-9.0); Specific Gravity - Urine >= 1.030 (1.005-1.025); UMIC TRIGGER UACC YES
--- NOTE | 2025-05-26 04:26 | ED.ABDPAIN ---
HPI - Abdominal Pain General Chief Complaint: Abdominal Pain Stated Complaint: N/V Time Seen by Provider: 05/26/25 03:39 Source: patient Mode of arrival: ambulatory Limitations: no limitations History of Present Illness ED Provider: Dr. Carolyn Jordan HPI narrative: Patient comes to the emergency room complaining of abdominal pain, nausea couple of episodes of vomiting. Patient was not here a few days ago, states that he has gastroparesis has gotten worse. Patient denies chest pain or shortness of breath. Related Data Home Medications ?Medication ?Instructions ?Recorded ?Confirmed ezetimibe 10 mg tablet 10 mg PO BEDTIME 01/03/22 03/23/25 gabapentin 300 mg capsule 300 mg PO TID 01/03/22 03/23/25 insulin glargine 100 unit/mL 10 unit subcut BEDTIME 01/03/22 03/23/25 subcutaneous solution (Lantus U-100 Insulin) isosorbide mononitrate 30 mg 30 mg PO DAILY 01/03/22 03/23/25 tablet,extended release 24 hr loratadine 10 mg tablet 10 mg PO DAILY 01/03/22 03/23/25 losartan 25 mg tablet 25 mg PO DAILY 01/03/22 03/23/25 meclizine 25 mg tablet 25 mg PO TID PRN Dizziness Or 01/03/22 03/23/25 Vertigo rosuvastatin 40 mg tablet 40 mg PO BEDTIME 01/03/22 03/23/25 aspirin 81 mg tablet,delayed 81 mg PO DAILY 08/04/22 03/23/25 release furosemide 20 mg tablet 20 mg PO DAILY 11/13/22 03/23/25 metoprolol succinate 25 mg 25 mg PO DAILY 10/14/24 03/23/25 tablet,extended release 24 hr insulin lispro 100 unit/mL See Protocol subcut QIDACHS 12/16/24 03/23/25 subcutaneous solution rivaroxaban 20 mg tablet (Xarelto) 20 mg PO DAILY@1700 12/16/24 03/23/25 insulin glargine 100 unit/mL 8 unit subcut DAILY 03/23/25 03/23/25 subcutaneous solution (Lantus U-100 Insulin) Previous Rx's ?Medication ?Instructions ?Recorded walker #1 ea 01/11/22 walker #1 ea 01/15/22 Band-Aid Gauze Pads 4 X 4 #25 ea 04/16/22 bandage (gauze bandage) elastic bandage 6 X 1.8 yard #6 ea 04/16/22 off loading boot (Aircast off #1 ea 04/16/22 loading boot) calcium alginate ag #5 ea 04/23/22 sterile gauze #40 ea 04/23/22 capsaicin 0.025 % topical cream 1 appl topical QID PRN Pain, Mild 03/29/25 1-3,Fever,Headache #1 g lidocaine 4 % topical patch 1 patch transdermal DAILY #7 ea 03/29/25 (Lidocaine Pain Relief) metoclopramide HCl 5 mg tablet 2.5 mg (1/2 x 5 mg) PO DAILY PRN 03/29/25 (Reglan) nausea and vomiting #7 tabs oxycodone 10 mg tablet 10 mg PO Q4H PRN Pain #10 tabs 03/29/25 pantoprazole 40 mg tablet,delayed 40 mg PO BID@0630,1630 #60 tabs 03/29/25 release venlafaxine 100 mg tablet 50 mg (1/2 x 100 mg) PO BID #1 tab 03/29/25 metoclopramide HCl 10 mg tablet 10 mg PO Q8H PRN nausea and 05/24/25 (Reglan) vomiting #90 tabs Allergies Allergy/AdvReac Type Severity Reaction Status Date / Time morphine AdvReac Intermediate Hallucinati Verified 05/25/25 22:16 ons Review of Systems Review of Systems Constitutional : No Weight loss, No Fever, No Chills, No Night Sweats, No Fatigue, No Malaise ENT/Mouth : No Hearing loss, No Ear Pain, No Nasal Congestion, No Sinus Pain, No Hoarseness, No sore throat, No Rhinorrhea, No Swallowing Difficulty Eyes: No Eye Pain, No Swelling, No Redness, No Foreign Body, No Discharge, No Vision Changes Cardiovascular : No Chest Pain, No SOB, No Dyspnea on Exertion, No Orthopnea, No Edema, No Palpitations Respiratory : No Cough, No Sputum, No Wheezing, No Smoke Exposure, No Dyspnea Gastrointestinal : Complaining of nausea, few episodes of vomiting, no diarrhea, complaining of abdominal discomfort especially in the epigastric area Genitourinary : no irregular bleeding, No Dysuria, No Urinary Frequency, No Hematuria, No Urinary Incontinence, No Urgency, No Flank Pain, No Urinary Flow Changes, No Hesitancy Musculoskeletal : No joint pain, No Myalgias, No Joint Swelling Skin : No Skin Lesions, No rash Neuro : No Weakness, No Numbness, No Paresthesias, No Loss of Consciousness, No Dizziness, No Headache Psych : No Anxiety/Panic, No Depression, No SI/HI/AH/VH, No Social Issues, Heme/Lymph: No Bruising, No Bleeding,No Lymphadenopathy Endocrine : No Polyuria, No Polydipsia, No Temperature Intolerance [facility] Past Medical History Medical History Hypertensive urgency Abdominal pain PVD (peripheral vascular disease) Gastroparesis DKA (diabetic ketoacidosis) Obesity (BMI 30-39.9) PAD (peripheral artery disease) Afib Amputation of left great toe Lower limb amputation, great toe CAD (coronary artery disease) DMII (diabetes mellitus, type 2) Orthopedic hardware present Hyperglycemia Cellulitis Asthma Diabetes Hypertension FHx: bilateral hip replacements Surgical History History of amputation of toe (07/29/22) History of amputation of great toe (01/07/22) History of back surgery History of neck surgery History of ankle surgery H/O bilateral hip replacements S/P quadruple vessel bypass Family History Family History Father Cancer of neck Mother Uterus cancer Other No family history of coronary artery disease Social History Social History Household Members: Spouse Household Members Other:: 3 Housing: Apartment Are you a primary director of career services to a significant other at home: No Do you presently have visiting nurse or other home services: No Alcohol intake: never Comment: refused bed or chair alarm Patient Tobacco Use Status: Former Tobacco user Tobacco use type: Cigarette Smoked in Last 30 Days: No e-Cigarette/Vaping Use: Never Used Second Hand Smoke Exposure: No Use of substances other than those prescribed or required for medical reasons: No Substance Use Type: Marijuana Advance Directives: No Advance Directives Information Provided: No Advance Directives Date on File: 01/04/22 Do you have a plan to hurt others: No Plan service: No Current occupational status: disabled Physical Exam ED Exam Exam: Appearance: Alert. Oriented X3. No acute distress. Eyes: Pupils equal, round and reactive to light. ENT: Pharynx normal. Neck: Normal inspection. Neck supple. No lymph nodes noted. No crepitus CVS: Normal heart rate and rhythm. Pulses normal. Normal S1 and S2 Respiratory: No respiratory distress. Breath sounds normal. No Wheezing. No rales Abdomen: Soft , complaining of abdominal discomfort to palpation in epigastric area, no rebound or guarding, no pain at the McBurney's point, negative Barrios's sign No rigidity. No distention. Skin: Skin warm and dry. Normal skin color. Normal skin turgor. Extremities: No lower extremity edema. No Lacerations. No Rash Neuro: Oriented X 3. No motor deficit. No sensory deficit. Moving all extremities. No slurred speech. CN 2 through 12 grossly intact Psych: calm, cooperative, normal affect Vital Signs: Vital Signs - 24 hr 05/25/25 22:14 05/26/25 01:58 05/26/25 04:44 Temperature 98.6 F 98.5 F Pulse Rate 115 H 100 Respiratory Rate 18 17 23 H Blood Pressure 210/117 H 139/85 Pulse Oximetry 96 96 Oxygen Delivery Method Room Air Room Air 05/26/25 04:55 05/26/25 05:12 05/26/25 05:14 Temperature 99.1 F Pulse Rate 112 H Respiratory Rate 23 H Blood Pressure 193/106 H 193/106 H 193/106 H Pulse Oximetry 97 Oxygen Delivery Method Room Air 05/26/25 06:24 Temperature 98.5 F Pulse Rate 87 Respiratory Rate 13 Blood Pressure 128/62 Pulse Oximetry 96 Oxygen Delivery Method Room Air BMI result Body Mass Index 39.2 Course Course Course Narrative: Patient states that Dilaudid works best for him, patient getting IV hydration, Reglan and a small dose of Dilaudid. Patient takes Xarelto and therefore can not get NSAIDs Medical Decision Making Medical Decision Making MDM Narrative: My interpretation of labs: Patient's white blood cell count 15.8, patient does have chronic leukocytosis, rest of hematology at baseline,, chemistry within normal limits, glucose 323, urine negative for UTI My interpretation of EKG: Sinus tachycardia, heart rate 105, no ST segment depression or elevation, no T-wave inversion, QTC 489 We will wait for symptomatic improvement, if patient does not improve, we will consider admitting the patient for gastroparesis I reviewed patient's records from 03/24/2025, per Gastroenterology, Dr. Curtis, recommendations IV fluids, IV PPIs, antiemetic medications. Continue metoclopramide for gastroparesis, if symptoms do not improve, switch erythromycin 250 mg IV t.i.d. 30 minutes before meals in place of metoclopramide It was recommended for a gastric emptying study as outpatient, unclear if patient got to it. After this gastroenterology note, there are no further notes. We attempted to p.o. challenge the patient. Patient states that he is in too much pain. I discussed the patient with Dr. Cotter, patient being admitted. Patient agrees with plan Differential Diagnosis Differential Diagnoses: The differential diagnosis associated with the presentation includes (Gastroparesis, gastritis) Admission/Observation Consideration of admission/observation: Escalation of care including admission/observation considered (Given patient's recurrent visits for gastroparesis, observation/admission was considered) Lab Data MDM Lab Attestation statement: I reviewed the patient's lab results. 05/25/25 22:24 05/25/25 22:51 Labs: Lab Results 05/25/25 05/25/25 05/26/25 Range/Units 22:24 22:51 02:14 WBC 15.8 H (4.8-10.8) X10*3/uL RBC 4.93 (4.60-5.80) X10*6/uL Hgb 14.5 (14.0-18.0) g/dl Hct 41.3 L (42.0-52.0) % MCV 83.8 (80.0-98.0) fL MCH 29.4 (27.0-33.0) pg MCHC 35.1 (31.0-36.0) g/dl RDW 14.6 (11.0-16.0) % Plt Count 320 (160-400) X10*3/uL MPV 9.6 (9.4-12.4) fL Immature Gran % (Auto) 0.4 (0.0-0.4) % Neut % (Auto) 74.1 H (45-73) % Lymph % (Auto) 17.3 L (20-40) % [place] % (Auto) 7.8 (2-11) % Eos % (Auto) 0.0 (0-4) % Baso % (Auto) 0.4 (0-2) % Lymph # (Auto) 2.7 (1.2-4.9) X10*3/uL [place] # (Auto) 1.2 (0.1-1.2) X10*3/uL Eos # (Auto) 0.0 (0.0-0.4) X10*3/uL Baso # (Auto) 0.1 (0.0-0.2) X10*3/uL Abs Immat Gran (auto) 0.06 H (0.00-0.03) X10*3/uL Absolute Neuts (auto) 11.7 H (2.0-8.3) x10*3/uL Absolute Nucleated RBC 0.000 (0.0-0.012) X10*3/uL Nucleated RBC % (auto) 0.0 (0.0-0.2) /100WBC Sodium 140 (135-145) mmol/L Potassium 3.8 (3.3-5.1) mmol/L Chloride 108 (96-108) mmol/L Carbon Dioxide 17 L (22-29) mmol/L Anion Gap 19 (12-20) BUN 11 (9-16) mg/dL Creatinine 0.72 (0.5-1.4) mg/dL Estim Creat Clear Calc 128.7 Estimated GFR > 60 Random Glucose 323 H (60-115) mg/dL Calcium 9.2 (8.4-10.2) mg/dL Total Bilirubin 0.9 (0.0-1.0) mg/dL AST 23 (5-37) U/L ALT 11 (0-40) U/L Alkaline Phosphatase 74 (39-117) U/L Total Protein 7.2 (6.5-8.0) g/dL Albumin 4.3 (3.5-5.0) g/dL Lipase 4 L (8-78) U/L Urine Color Yellow Urine Appearance Clear Urine pH 5.5 (5.0-9.0) Ur Specific [place] >= 1.030 H (1.005-1.025) Urine Protein 100 (2+) H (Neg-Trace) mg/dL Urine Glucose (UA) >=1000 H (Negative) mg/dL Urine Ketones >=160 (Negative) mg/dL Urine Blood Negative (Negative) Urine Nitrite Negative (Negative) Ur Leukocyte Esterase Negative (Negative) Urine RBC 0-2 (0-2) /HPF Urine WBC 0-5 (0-5) /HPF Ur Squamous Epith Cells 0-2 (0-2) /HPF Urine Bacteria None Seen (None Seen) Hyaline Casts 0-2 (0-2) /LPF Medications Administered Discontinued Medications Generic Name Dose Route Start Last Admin Trade Name Yajaira PRN Reason Stop Dose Admin Famotidine 20 mg 05/26/25 04:28 05/26/25 04:43 Famotidine/Pf 20 Mg/2 Ml Vial IVPUSH 05/26/25 04:29 20 mg ONCE ONE Administration Hydromorphone HCl 0.5 mg 05/26/25 04:25 05/26/25 04:44 Hydromorphone Hcl 0.5 Mg/0.5 Ml Syringe IVPUSH 05/26/25 04:26 0.5 mg ONCE ONE Administration Protocol Lactated Ringer's 1,000 mls @ 999 mls/hr 05/26/25 04:30 05/26/25 06:35 Lr IV 05/26/25 05:30 Infused .Q1H1M WILLIAM Infusion Insulin Human Regular 5 unit 05/26/25 04:30 05/26/25 04:52 Insulin Regular, Human 100 Unit/Ml 10 Ml Vial IVPUSH 05/26/25 04:31 5 unit ONCE ONE Administration Losartan Potassium 50 mg 05/26/25 05:02 05/26/25 05:14 Losartan Potassium 50 Mg Tablet PO 05/26/25 05:03 50 mg ONCE ONE Administration Protocol Metoclopramide HCl 10 mg 05/26/25 04:22 05/26/25 04:44 Metoclopramide Hcl 10 Mg/2 Ml Vial IVPUSH 05/26/25 04:23 10 mg ONCE ONE Administration Metoprolol Tartrate 25 mg 05/26/25 05:02 05/26/25 05:12 Metoprolol Tartrate 25 Mg Tablet PO 05/26/25 05:03 25 mg ONCE ONE Administration Protocol Critical Care Time Critical Care Time Critical Care Time: No Total Critical Care Time: 60 Attestation: I have personally provided critical care time. Time includes review of lab data, radiology results, discussion with consultants, and monitoring for potential decompensation. Intervention performed as documented. Discharge Plan Discharge Clinical Impression: Gastroparesis, Abdominal pain Patient Disposition: Admitted As Inpatient Print Language: Icelandic
[2025-05-26] MEDS: Lactated Ringers 1,000 ML 999 ML IV (04:44)
--- NOTE | 2025-05-26 05:03 | PC.NURSE ---
Took patients blood pressure on both arms, silmarly high blood pressure. Patient takes BP medication at night and missed last nights dose due to coming to the hospital. Made Dr. Jordan aware. Plan of care ongoing.
--- NOTE | 2025-05-26 07:08 | PM.IMHP ---
History of Present Illness Date of Service: 05/26/25 Attending physician on admission: Rigoberto Acosta Chief Complaint: abd pain Patient is a 64-year-old male with a past medical history significant for insulin-dependent diabetes, gastroparesis, hypertension, paroxysmal AFib, morbid obesity, who presented to the ED again due to intractable abdominal pain, nausea, vomiting ?secondary to gastroparesis. He was recently seen in the ED for this discharged home with Reglan which he reports he has not been helpful. He is complaining of significant abdominal pain mostly centralized, rating it an 8/10 and requesting pain management at this time. He has been unable to tolerate anything PO x3 days. still having diarrhea without blood. He denies any fever, chills, shortness of breath, chest pain or urinary symptoms. Review of Systems Constitutional: Constitutional: Denies body ache(s), Denies chills, Denies fatigue, Denies fever(s) and Denies headache(s) Eyes: Eyes: Denies change in vision ENT: Denies headache(s), Denies nasal congestion and Denies sore throat Cardiovascular: Cardiovascular: Denies chest pain, Denies rapid heart rate, Denies lightheadedness and Denies dyspnea Respiratory: Respiratory: Denies chest congestion, Denies cough, Denies dyspnea and Denies wheezing Gastrointestinal: Gastrointestinal: Reports as per HPI Genitourinary: Genitourinary: Denies dysuria Musculoskeletal: Musculoskeletal: Denies myalgias Integumentary/Breasts: Skin/Breast: Denies rash Neurologic: Denies confusion and Denies headache(s) Psychiatric: Psychiatric: Denies confusion Endocrine: Endocrine: Denies fatigue Hematologic/Lymphatic: Hematologic/Lymphatic: Denies easy bleeding and Denies easy bruising Allergic/Immunologic: Allergic/Immunologic: Denies wheezing [facility] Medical History Hypertensive urgency Abdominal pain PVD (peripheral vascular disease) Gastroparesis DKA (diabetic ketoacidosis) Obesity (BMI 30-39.9) PAD (peripheral artery disease) Afib Amputation of left great toe Lower limb amputation, great toe CAD (coronary artery disease) DMII (diabetes mellitus, type 2) Orthopedic hardware present Hyperglycemia Cellulitis Asthma Diabetes Hypertension FHx: bilateral hip replacements Functional capacity: independent ambulation Family History Father Cancer of neck Mother Uterus cancer Other No family history of coronary artery disease Surgical History History of amputation of toe (07/29/22) History of amputation of great toe (01/07/22) History of back surgery History of neck surgery History of ankle surgery H/O bilateral hip replacements S/P quadruple vessel bypass Social History Household Members: Spouse Household Members Other:: 3 Housing: Apartment Are you a primary critical care specialist to a significant other at home: No Do you presently have visiting nurse or other home services: No Alcohol intake: never Comment: refused bed or chair alarm Patient Tobacco Use Status: Former Tobacco user Tobacco use type: Cigarette e-Cigarette/Vaping Use: Never Used Second Hand Smoke Exposure: No Substance Use Type: Marijuana Advance Directives Date on File: 01/04/22 service: No Current occupational status: disabled Meds Allergies Allergy/AdvReac Type Severity Reaction Status Date / Time morphine AdvReac Intermediate Hallucinati Verified 05/25/25 22:16 ons Active Medications: Current Medications Acetaminophen (Acetaminophen 325 Mg Tablet) 975 mg PO Q6H PRN PRN Reason: Pain, Mild 1-3,fever,headache Calcium Carbonate (Calcium Carbonate 750 Mg Tab.Chew) 750 mg PO Q4H PRN PRN Reason: Heartburn Magnesium Hydroxide (Milk Of Magnesia 30 Ml Oral.Susp) 30 ml PO DAILY PRN PRN Reason: Constipation Melatonin (Melatonin 3 Mg Tablet) 6 mg PO BEDTIME PRN PRN Reason: Insomnia Metoclopramide HCl (Metoclopramide Hcl 10 Mg/2 Ml Vial) 10 mg IVPUSH TID WILLIAM Oxycodone HCl (Oxycodone Hcl Immed Release 5 Mg Tablet) 5 mg PO Q6H PRN PRN Reason: Pain, Moderate(Pain Scale 4-6) Rivaroxaban (Rivaroxaban 20 Mg Tablet) 20 mg PO DAILY@1700 WILLIAM Sodium Chloride (0.9 % Sodium Chloride Flush 3 Ml Syringe) 3 ml IVFLUSH QSHIFT [facility] Home Medications ?Medication ?Instructions ?Recorded ?Confirmed ?Last Taken ?Type ezetimibe 10 mg tablet 10 mg PO BEDTIME 01/03/22 05/26/25 05/23/25 History gabapentin 300 mg capsule 300 mg PO TID 01/03/22 05/26/25 05/23/25 History insulin glargine 100 unit/mL 10 unit subcut BEDTIME 01/03/22 05/26/25 05/23/25 History subcutaneous solution (Lantus U-100 Insulin) isosorbide mononitrate 30 mg 30 mg PO DAILY 01/03/22 05/26/25 05/23/25 History tablet,extended release 24 hr loratadine 10 mg tablet 10 mg PO DAILY 01/03/22 05/26/25 05/23/25 History losartan 25 mg tablet 25 mg PO DAILY 01/03/22 05/26/25 05/23/25 History meclizine 25 mg tablet 25 mg PO TID PRN Dizziness Or 01/03/22 05/26/25 05/23/25 History Vertigo rosuvastatin 40 mg tablet 40 mg PO BEDTIME 01/03/22 05/26/25 05/23/25 History aspirin 81 mg tablet,delayed 81 mg PO DAILY 08/04/22 05/26/25 05/23/25 History release furosemide 20 mg tablet 20 mg PO DAILY 11/13/22 05/26/25 05/23/25 History metoprolol succinate 25 mg 25 mg PO DAILY 10/14/24 05/26/25 05/23/25 History tablet,extended release 24 hr insulin lispro 100 unit/mL See Protocol subcut QIDACHS 12/16/24 05/26/25 05/23/25 History subcutaneous solution rivaroxaban 20 mg tablet (Xarelto) 20 mg PO DAILY@1700 12/16/24 05/26/25 05/23/25 History insulin glargine 100 unit/mL 8 unit subcut DAILY 03/23/25 05/26/25 05/23/25 History subcutaneous solution (Lantus U-100 Insulin) glucagon 1 mg/0.2 mL subcutaneous 1 mg subcut ONCE PRN Hypoglycemia 05/26/25 05/26/25 Unknown History auto-injector (Gvoke HypoPen 2-Pack) lidocaine 4 % topical patch 1 patch transdermal DAILY PRN Pain 05/26/25 05/26/25 05/23/25 History (Lidocaine Pain Relief) pantoprazole 40 mg tablet,delayed 40 mg PO TID@0630,1130,1630 05/26/25 05/26/25 05/23/25 History release Physical Exam Vital Signs and Narrative: Vital Signs: Last Vital Signs Temp 98.5 F 05/26/25 06:24 Pulse 87 05/26/25 06:24 Resp 13 05/26/25 06:24 BP 128/62 05/26/25 06:24 Pulse Ox 96 05/26/25 06:24 O2 Del Method Room Air 05/26/25 06:24 BMI result Body Mass Index 39.2 General: AOx3, no acute distress Resp: CTA bilaterally CVS: S1, S2, RRR GI: +BS, generalized tenderness, no distention Skin: Warm, dry Neuro: Cranial nerves II-XII grossly intact bilaterally. Motor grossly intact bilaterally Extremities: No LE edema Psych: Appropriate affect Const: General: No confusion Orientation/consciousness: No confusion Neuro: General: No confusion Results Labs 05/25/25 22:24 05/25/25 22:51 Labs: Laboratory Results - last 24 hr 05/25/25 05/25/25 05/26/25 22:24 22:51 02:14 MCV 83.8 MCH 29.4 MCHC 35.1 RDW 14.6 Plt Count 320 MPV 9.6 Immature Gran % (Auto) 0.4 Neut % (Auto) 74.1 H Lymph % (Auto) 17.3 L [place] % (Auto) 7.8 Eos % (Auto) 0.0 Baso % (Auto) 0.4 Lymph # (Auto) 2.7 [place] # (Auto) 1.2 Eos # (Auto) 0.0 Baso # (Auto) 0.1 Abs Immat Gran (auto) 0.06 H Absolute Neuts (auto) 11.7 H Absolute Nucleated RBC 0.000 Nucleated RBC % (auto) 0.0 Anion Gap 19 Estim Creat Clear Calc 128.7 Estimated GFR > 60 Random Glucose 323 H Calcium 9.2 Total Bilirubin 0.9 AST 23 ALT 11 Alkaline Phosphatase 74 Total Protein 7.2 Albumin 4.3 Lipase 4 L Urine Color Yellow Urine Appearance Clear Urine pH 5.5 Ur Specific [place] >= 1.030 H Urine Protein 100 (2+) H Urine Glucose (UA) >=1000 H Urine Ketones >=160 Urine Blood Negative Urine Nitrite Negative Ur Leukocyte Esterase Negative Urine RBC 0-2 Urine WBC 0-5 Ur Squamous Epith Cells 0-2 Urine Bacteria None Seen Hyaline Casts 0-2 Assessment and Plan (1) Diabetic gastroparesis: Status: Acute (2) Intractable nausea and vomiting: Status: Acute (3) Intractable abdominal pain: Status: Acute Plan 64-year-old male with a PMH significant for?insulin-dependent type 2 diabetes, diabetic gastroparesis, CAD s/p CABG in 2018, paroxysmal AFib on Xarelto, PVD, HTN, hx of osteomyelitis s/p amputation of 1st and 2nd left toes, and peripheral neuropathy who presents to the ED with?abdominal pain and N/V/D x3 days. Pt is admitted to the hospital under observation for treatment and further evaluation of acute on chronic diabetic gastroparesis with intractable N/V/D. Acute on chronic diabetic gastroparesis Pt with intractable N/V/D and epigastric burning abdominal pain, recently admitted for obs, returns due to intractable pain recent negative stool studies Unable to tolerate p.o. A/P CT ordered due to intractable pain continue maintenance fluids, ondansetron, Reglan, protonix Clear liquid diet, advance as tolerated GI consult Mild leukocytosis: Likely reactive to nausea vomiting Denies any respiratory or urinary complaints monitor CBC Mild tachycardia-related to pain, no sepsis Insulin-dependent type 2 diabetes with hyperglycemia No DKA: Beta hydroxybutyrate elevated at 1.8 LR 100ml/hr Sliding scale insulin Lantus 8U at baseline, has not taken for days due to vomiting Diabetic diet once diet advanced Paroxysmal AFib Continue Xarelto(if does not tolerate po will change to lovenox), metoprolol CAD/HLD Start once able to take p.o. statin, ezetimibe HTN losartan Mood disorder/sad /depressed Unable to take p.o. yet- venlafaxine Full Code DVT Prophylaxis: xarelto Patient will benefit from 2 midnight stay: for the treatment and further evaluation of acute on chronic diabetic gastroparesis with intractable N/V/abd pain. Given that pt is not tolerating p.o. at this time, pt will require hospital level care for administration of IV antiemetics, analgesics, and fluids. GI evaluation. Quality Stroke Does the patient have a stroke diagnosis?: No VTE Prior VTE?: No VTE Risk Level:: Medical - moderate - high VTE Device Contraindication: Treatment Not Indicated VTE Drug Contraindication: N/A - Med Ordered
--- NOTE | 2025-05-26 07:27 | P.CNGI_ITS ---
History of Present Illness Data of Consult Service Date: 05/26/25 Requesting physician: Nikole Mckenzie Primary Care Provider: Unknown Physician HPI Reason for consult: Gastroparesis 64 YM with insulin-dependent diabetes, gastroparesis, hypertension, paroxysmal AFib, morbid obesity, seen at [facility] on 05/25/25 with intractable abdominal pain, nausea, vomiting ?secondary to gastroparesis. He was recently seen in the ED for this discharged home with Reglan which he reports he has not been helpful. He is complaining of significant abdominal pain mostly centralized, rating it an 8/10 and requesting pain management at this time. He has been unable to tolerate anything PO x3 days. still having diarrhea without blood. He denies any fever, chills, shortness of breath, chest pain or urinary symptoms. Pt was seen at [facility] on 05/24/25 and discharged home after symptomatic management. Pt denies smoking or ETOH abuse. He uses Marijuana once a week and denies using it daily Pt reports having an EGD and colon at [facility] - per pt endoscopic evaluation was negative. 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 05/26/[address] SCAN SHOWED: The patient is status post cholecystectomy. There is pancreatic atrophy. The rest of the solid organs are unremarkable. There is a small duodenum diverticulum. Chronic inflammatory changes with soft tissue calcifications are seen within the anterior abdominal wall pannus. Review of Systems 2 Constitutional: Constitutional: Denies body ache(s), Denies chills, Denies fatigue, Denies fever(s) and Denies headache(s) Eyes: Eyes: Denies change in vision ENT: Denies headache(s), Denies nasal congestion and Denies sore throat Cardiovascular: Cardiovascular: Denies chest pain, Denies rapid heart rate, Denies lightheadedness and Denies dyspnea Respiratory: Respiratory: Denies chest congestion, Denies cough, Denies dyspnea and Denies wheezing Gastrointestinal: Gastrointestinal: Reports as per HPI Genitourinary: Genitourinary: Denies dysuria Musculoskeletal: Musculoskeletal: Denies myalgias Integumentary/Breasts: Skin/Breast: Denies rash Neurologic: Denies confusion and Denies headache(s) Psychiatric: Psychiatric: Denies confusion Endocrine: Endocrine: Denies fatigue Hematologic/Lymphatic: Hematologic/Lymphatic: Denies easy bleeding and Denies easy bruising Allergic/Immunologic: Allergic/Immunologic: Denies wheezing PMFSH Past Medical History Medical History Hypertensive urgency Abdominal pain PVD (peripheral vascular disease) Gastroparesis DKA (diabetic ketoacidosis) Obesity (BMI 30-39.9) PAD (peripheral artery disease) Afib Amputation of left great toe Lower limb amputation, great toe CAD (coronary artery disease) DMII (diabetes mellitus, type 2) Orthopedic hardware present Hyperglycemia Cellulitis Asthma Diabetes Hypertension FHx: bilateral hip replacements Family History Family History Father Cancer of neck Mother Uterus cancer Other No family history of coronary artery disease Surgical History Surgical History History of amputation of toe (07/29/22) History of amputation of great toe (01/07/22) History of back surgery History of neck surgery History of ankle surgery H/O bilateral hip replacements S/P quadruple vessel bypass Social History Social History Household Members: Spouse Household Members Other:: 3 Housing: Apartment Are you a primary senior care assistant to a significant other at home: No Do you presently have visiting nurse or other home services: No Alcohol intake: never Comment: refused bed or chair alarm Patient Tobacco Use Status: Former Tobacco user Tobacco use type: Cigarette e-Cigarette/Vaping Use: Never Used Second Hand Smoke Exposure: No Substance Use Type: Marijuana Advance Directives Date on File: 01/04/22 service: Yes Current occupational status: disabled Meds Allergies Allergy/AdvReac Type Severity Reaction Status Date / Time morphine AdvReac Intermediate Hallucinati Verified 05/25/25 22:16 ons Active Medications: Current Medications Acetaminophen (Acetaminophen 325 Mg Tablet) 975 mg PO Q6H PRN PRN Reason: Pain, Mild 1-3,fever,headache Calcium Carbonate (Calcium Carbonate 750 Mg Tab.Chew) 750 mg PO Q4H PRN PRN Reason: Heartburn Hydromorphone HCl (Hydromorphone Hcl 0.5 Mg/0.5 Ml Syringe) 0.5 mg IVPUSH Q4H PRN; Protocol PRN Reason: Pain, Severe (Pain Scale 7-10) Lactated Ringer's (Lr) 1,000 mls @ 100 mls/hr IVCONT .Q10H [facility] Magnesium Hydroxide (Milk Of Magnesia 30 Ml Oral.Susp) 30 ml PO DAILY PRN PRN Reason: Constipation Melatonin (Melatonin 3 Mg Tablet) 6 mg PO BEDTIME PRN PRN Reason: Insomnia Metoclopramide HCl (Metoclopramide Hcl 10 Mg/2 Ml Vial) 10 mg IVPUSH TID [facility] Ondansetron HCl (Ondansetron Hcl 4 Mg/2 Ml Vial) 4 mg IVPUSH Q8H PRN PRN Reason: Nausea and Vomiting Oxycodone HCl (Oxycodone Hcl Immed Release 5 Mg Tablet) 5 mg PO Q6H PRN PRN Reason: Pain, Moderate(Pain Scale 4-6) Pantoprazole Sodium (Pantoprazole Sodium 40 Mg/10 Ml Vial) 40 mg IVPUSH BID@0630,1630 [facility] Rivaroxaban (Rivaroxaban 20 Mg Tablet) 20 mg PO DAILY@1700 [facility] Sodium Chloride (0.9 % Sodium Chloride Flush 3 Ml Syringe) 3 ml IVFLUSH QSHIFT [facility] Home Medications ?Medication ?Instructions ?Recorded ?Confirmed ?Last Taken ?Type ezetimibe 10 mg tablet 10 mg PO BEDTIME 01/03/2205/23/25 History gabapentin 300 mg capsule 300 mg PO TID 01/03/2205/2605/23/25 History insulin glargine 100 unit/mL 10 unit subcut BEDTIME 05/26/25 05/23/25 History subcutaneous solution (Lantus U-100 Insulin) isosorbide mononitrate 30 mg 30 mg PO DAILY 01/03/22 0 05/26/25 05/23/25 History tablet,extended release 24 hr loratadine 10 mg tablet 10 mg PO DAILY 01/03/2204/2805/23/25 History losartan 25 mg tablet 25 mg PO DAILY 01/03/2204/2805/23/25 History meclizine 25 mg tablet 25 mg PO TID PRN Dizziness O r 01/03/22 05/26/25 05/23/25 History Vertigo rosuvastatin 40 mg tablet 40 mg PO BEDTIME 01/03/2205/23/25 History aspirin 81 mg tablet,delayed 81 mg PO DAILY 08/04/22 0 05/26/25 05/23/25 History release furosemide 20 mg tablet 20 mg PO DAILY 11/13/22 07/11/2005/23/25 History metoprolol succinate 25 mg 25 mg PO DAILY 10/14/2405/23/25 History tablet,extended release 24 hr insulin lispro 100 unit/mL See Protocol subcut QIDACHS 12/16/24 05/26/25 05/23/25 History subcutaneous solution rivaroxaban 20 mg tablet (Xarelto) 20 mg PO DAILY@1700 12/16/24 05/26/25 05/23/25 History insulin glargine 100 unit/mL 8 unit subcut DAILY 03/2305/26/25 05/23/25 History subcutaneous solution (Lantus U-100 Insulin) glucagon 1 mg/0.2 mL subcutaneous 1 mg subcut ONCE PRN Hypoglycemia 05/26/25 05/26/25 Unknown History auto-injector (Gvoke HypoPen 2-Pack) lidocaine 4 % topical patch 1 patch transdermal DAILY PRN Pain 05/26/25 05/26/25 05/23/25 History (Lidocaine Pain Relief) pantoprazole 40 mg tablet,delayed 40 mg PO TID@0630,11 30,1630 05/26/25 05/26/25 05/23/25 History release Physical Exam 2 Vital Signs: Vital Signs: Last Vital Signs Temp 98.5 F 05/26/25 06:24 Pulse 87 05/26/25 06:24 Resp 13 05/26/25 06:24 BP 128/62 05/26/25 06:24 Pulse Ox 96 05/26/25 06:24 O2 Del Method Room Air 05/26/25 06:24 BMI result Body Mass Index 39.2 Const: General: No confusion Nutritional Appearance: obese O rientation/consciousness: No confusion HEENT: Head: Yes normal to inspection Ears: hearing grossly normal bilaterally Eyes: Sclerae: sclerae normal Pupils: Equal, round and reactive pupils present Neck: Neck: Yes normal visual inspection Chest: Chest palpation & inspection: normal inspection of the chest Resp: Effort & Inspection: normal respiratory effort Auscultation: clear to auscultation bilaterally Cardio: Palpation: normal PMI Rate: regular rate Rhythm: regular rhythm Heart sounds: S1 normal heart sound present, S2 normal heart sound present and no murmurs GI: Palpation (GI): Soft to palpation, Tenderness to palpation present (GI) (Mild upper abdominal tenderness) and No hepatosplenomegaly present A uscultation: normal bowel sounds Rectal Exam - Male: Yes deferred Skin: General skin exam: no rashes or lesions noted Neuro: General: No confusion Cranial nerves: Yes Equal, round and reactive pupils present Psych: Appearance: grossly normal Mental Status: mental status grossly normal Results Labs 05/25/25 22:24 05/25/25 22:51 Labs: Short CBC 05/25/25 Range/Units 22:24 WBC 15.8 H (4.8-10.8) X10*3/uL Hgb 14.5 (14.0-18.0) g/dl Hct 41.3 L (42.0-52.0) % Plt Count 320 (160-400) X10*3/uL BMP 05/25/25 22:51 Sodium 140 Potassium 3.8 Chloride 108 Carbon Dioxide 17 L BUN 11 Creatinine 0.72 Calcium 9.2 Liver Function 05/25/25 Range/Units 22:51 Total Bilirubin 0.9 (0.0-1.0) mg/dL AST 23 (5-37) U/L ALT 11 (0-40) U/L Alkaline Phosphatase 74 (39-117) U/L Albumin 4.3 (3.5-5.0) g/dL Urine 05/26/25 Range/Units 02:14 Urine Color Yellow Urine Appearance Clear Urine pH 5.5 (5.0-9.0) Ur Specific [place] >= 1.030 H (1.005-1.025) Urine Protein 100 (2+) H (Neg-Trace) mg/dL Urine Glucose (UA) >=1000 H (Negative) mg/dL Assessment and Plan (1) Gastroparesis: Status: Acute (2) Abdominal pain: Status: Acute (3) Intractable nausea and vomiting: Status: Acute Plan 64 YM with type 2 diabetes with Gastroparesis and neuropathy, CAD status post CABG in 2018, CHF, PVD, osteomyelitis and left great toe amputation, atrial fibrillation on Xarelto, intermittent asthma admitted to [facility] with nausea and vomting. Pt reports intermittent episodes of upper abd pain with nausea and vomiting in the past usually associated with diabetic ketoacidosis. No DKA on this admission: Beta hydroxybutyrate elevated at 1.8 Pt states episodes start with nausea and vomiting followed by upper abdominal pain. He reports feeling well in the interim. Pt symptoms are likely due to ketoacidosis versus gastroparesis. Cannabis hyperemesis syndrome would be less likely since he reports using Marijuana once a week. RECOMMENDATIONS: 1. Agree with IV fluids, IV PPI, pain medications and antiemetics 2. Continue IV metoclopramide for gastroparesis 3. Resume PO diet as tolerated 4. If symptoms do not improve, OK to switch to Erythromycin 250 mg IV TID 30 [address] before meals in place of metoclopramide 5. Gastric emptying study as outpatient once episode of nausea and vomiting subsides. Procedures Date of Service Date of Service: 05/26/25
[2025-05-26] MEDS: Lactated Ringers 1,000 ML 100 ML IVCONT ×3 (07:49→21:49)
[2025-05-26 07:50] LABS: Magnesium 2.4 mg/dL (1.6-2.6)
[2025-05-26 11:15] LABS: Glucose, Whole Blood 240 mg/dL (60-115)
--- NOTE | 2025-05-26 11:23 | PHA.MEDREC ---
Pharmacy Consult ? Medication Reconciliation Pharmacy has completed the medication reconciliation. [employer] ([facility]) spoke with pt at bedside. Pt confirmed medications and provided a list.
[2025-05-26] MEDS: Insulin Glargine,Hum.rec.anlog 100 UNIT/ML 10 ML VIAL 6 UNIT SUBCUT (11:30)
--- NOTE | 2025-05-26 13:56 | MHC.CM.PN ---
DX N/V Patient admitted almost 30 days ago. Several admissions r/t N/V. He lives with his + son. He uses a cane and a shower bench. DME cane walker shower bench raised toilet HCP on file [facility] home selfcare. His will provide transportation home. PCP [facility] Cheryl Waters
[2025-05-26] MEDS: oxyCODONE HCl Immed Release 5 MG TABLET PO (15:32)
[2025-05-26 16:10] LABS: Glucose, Whole Blood 199 mg/dL (60-115)
[2025-05-26 19:45] LABS: Glucose, Whole Blood 219 mg/dL (60-115)
[2025-05-26] MEDS: Insulin Glargine,Hum.rec.anlog 100 UNIT/ML 10 ML VIAL 8 UNIT SUBCUT (20:03)
[2025-05-27] MEDS: oxyCODONE HCl Immed Release 5 MG TABLET PO (03:19)
[2025-05-27 03:24] VITALS: BP 127/69; PULSE 60; RESP 18; TEMP 36.4; O2SAT 98
[2025-05-27 07:02] LABS: MANUAL DIFF FLAG NO
[2025-05-27 07:07] LABS: Hematocrit 35.8 % (42.0-52.0); Hemoglobin 12.4 g/dl (14.0-18.0); Imm Gran Abs Auto 0.05 X10*3/uL (0.00-0.03); Imm Gran Pct Auto 0.5 % (0.0-0.4); Lymphocytes Absolute Auto 3.4 X10*3/uL (1.2-4.9); Mean Corpuscular HGB Conc 34.6 g/dl (31.0-36.0); Mean Corpuscular Hemoglobin 29.9 pg (27.0-33.0); Mean Corpuscular Volume 86.3 fL (80.0-98.0); NRBC Abs Auto 0.000 X10*3/uL (0.0-0.012); NRBC Pct Auto 0.0 /100WBC (0.0-0.2); Platelet Count 258 X10*3/uL (160-400); Red Blood Count 4.15 X10*6/uL (4.60-5.80); White Blood Count 10.6 X10*3/uL (4.8-10.8)
[2025-05-27 07:22] VITALS: BP 179/79; PULSE 68; RESP 16; TEMP 36.7; O2SAT 97
[2025-05-27 07:29] LABS: Glucose, Whole Blood 187 mg/dL (60-115)
[2025-05-27 07:39] LABS: Anion Gap 11 (12-20); Blood Urea Nitrogen 14 mg/dL (9-16); Calcium 8.5 mg/dL (8.4-10.2); Carbon Dioxide 24 mmol/L (22-29); Chloride 111 mmol/L (96-108); Creatinine Clr Calc Pharmacy 137.8; Estimated Glomerular Filt Rate > 60; Potassium 3.3 mmol/L (3.3-5.1); Sodium 143 mmol/L (135-145)
[2025-05-27] MEDS: Metoprolol Succinate ER 25 MG TAB.ER.24H PO (07:55)
[2025-05-27] MEDS: Aspirin Enteric Coated 81 MG TABLET.DR PO (07:55)
[2025-05-27] MEDS: Insulin Glargine,Hum.rec.anlog 100 UNIT/ML 10 ML VIAL 6 UNIT SUBCUT (07:56)
[2025-05-27] MEDS: 0.9 % Sodium Chloride Flush 3 ML SYRINGE IVFLUSH ×2 (07:56→15:24)
[2025-05-27] MEDS: Lactated Ringers 1,000 ML 100 ML IVCONT ×2 (09:43→19:17)
[2025-05-27 10:58] VITALS: BP 108/65; PULSE 72; O2SAT 97
[2025-05-27 11:37] LABS: Glucose, Whole Blood 152 mg/dL (60-115)
--- NOTE | 2025-05-27 13:08 | P.PNIM_ITS ---
Subjective Subjective Date of Service: 05/27/25 Interval History: Continues to have nausea and has difficulty with p.o. intake. Complaining of abdominal discomfort Gastrointestinal Gastrointestinal: Reports abdominal pain and Reports nausea Physical Exam 2 Vital Signs: Vital Signs: Last Vital Signs Temp 98.1 F 05/27/25 07:22 Pulse 72 05/27/25 10:58 Resp 16 05/27/25 07:22 BP 108/65 05/27/25 10:58 Pulse Ox 97 05/27/25 10:58 O2 Del Method Room Air 05/27/25 10:58 BMI result Body Mass Index 32.4 Const: Other: Middle-aged male lying in bed in no distress Neck supple, no JVD Regular rate and rhythm, S1-S2 heard Regular breath sounds bilaterally, no wheezing or crackles appreciated Abdomen soft nontender, no guarding, no rigidity Patient is awake, alert and oriented to self, place, time and person ; no focal motor deficit Psych: Normal mood No pedal edema Objective Data Active Medications Acetaminophen (Acetaminophen 325 Mg Tablet) 975 mg PO Q6H PRN PRN Reason: Pain, Mild 1-3,fever,headache Aspirin (Aspirin Enteric Coated 81 Mg Tablet.) 81 mg PO DAILY [facility] Last Admin: 05/27/25 07:55 Dose: 81 mg Documented By: JOSE DAVID Atorvastatin Calcium (Atorvastatin Calcium 80 Mg Tablet) 80 mg PO BEDTIME [facility] Last Admin: 05/26/25 20:02 Dose: 80 mg Documented By: YAMILETH Calcium Carbonate (Calcium Carbonate 750 Mg Tab.Chew) 750 mg PO Q4H PRN PRN Reason: Heartburn Dextrose (Dextrose 50 % 25 Gm/50 Ml Syringe) 25 gm IVPUSH Q15M PRN; Protocol PRN Reason: per Hypoglycemia Standing Ord. Ezetimibe (Ezetimibe 10 Mg Tablet) 10 mg PO BEDTIME [facility] Last Admin: 05/26/25 20:02 Dose: 10 mg Documented By: YAMILETH Erythromycin (Erythromycin Base 250 Mg Tablet) 250 mg PO TID [facility] Last Admin: 05/27/25 12:09 Dose: 250 mg Documented By: JOSE DAVID Furosemide (Furosemide 20 Mg Tablet) 20 mg PO DAILY [facility]; Protocol Last Admin: 05/27/25 07:54 Dose: 20 mg Documented By: JOSE DAVID Gabapentin (Gabapentin 300 Mg Capsule) 300 mg PO TID [facility] Last Admin: 05/27/25 07:54 Dose: 300 mg Documented By: JOSE DAVID Glucose (Glucose Gel 15 Gm Gel..Gram.) 15 gm PO Q15M PRN; Protocol PRN Reason: per Hypoglycemia Standing Ord. Hydromorphone HCl (Hydromorphone Hcl 0.5 Mg/0.5 Ml Syringe) 0.5 mg IVPUSH Q4H PRN; Protocol PRN Reason: Pain, Severe (Pain Scale 7-10) Last Admin: 05/27/25 12:09 Dose: 0.5 mg Documented By: JOSE DAVID Lactated Ringer's (Lr) 1,000 mls @ 100 mls/hr IVCONT .Q10H [facility] Last Admin: 05/27/25 09:43 Dose: 100 mls/hr Documented By: JOSE DAVID Insulin Glargine (Insulin Glargine,Hum.Rec.Anlog 100 Unit/Ml 10 Ml Vial) 6 unit SUBCUT DAILY [facility] Last Admin: 05/27/25 07:56 Dose: 6 unit Documented By: JOSE DAVID Insulin Glargine (Insulin Glargine,Hum.Rec.Anlog 100 Unit/Ml 10 Ml Vial) 8 unit SUBCUT BEDTIME [facility] Last Admin: 05/26/25 20:03 Dose: 8 unit Documented By: YAMILETH Insulin Human Lispro (Insulin Lispro 100 Unit/Ml 3 Ml Vial) 0 unit SUBCUT QIDACHS [facility]; Protocol Last Admin: 05/27/25 11:55 Dose: 2 unit Documented By: JOSE DAVID Isosorbide Mononitrate (Isosorbide Mononitrate 30 Mg Tab.Er.24h) 30 mg PO DAILY [facility]; Protocol Last Admin: 05/27/25 07:55 Dose: 30 mg Documented By: JOS EDAVID Loratadine (Loratadine 10 Mg Tablet) 10 mg PO DAILY [facility] Last Admin: 05/27/25 07:54 Dose: 10 mg Documented By: JOSE DAVID Losartan Potassium (Losartan Potassium 25 Mg Tablet) 25 mg PO DAILY [facility]; Protocol Last Admin: 05/27/25 07:55 Dose: 25 mg Documented By: JOSE DAVID Magnesium Hydroxide (Milk Of Magnesia 30 Ml Oral.Susp) 30 ml PO DAILY PRN PRN Reason: Constipation Meclizine HCl (Meclizine Hcl 25 Mg Tablet) 25 mg PO TID PRN PRN Reason: Dizziness Or Vertigo Melatonin (Melatonin 3 Mg Tablet) 6 mg PO BEDTIME PRN PRN Reason: Insomnia Metoprolol Succinate (Metoprolol Succinate Er 25 Mg Tab.Er.24h) 25 mg PO DAILY [facility]; Protocol Last Admin: 05/27/25 07:55 Dose: 25 mg Documented By: JOSE DAVID Omeprazole (Omeprazole 20 Mg Capsule.Dr) 20 mg PO BID@0630,1830 [facility] Last Admin: 05/27/25 03:32 Dose: 20 mg Documented By: MARY Ondansetron HCl (Ondansetron Hcl 4 Mg/2 Ml Vial) 4 mg IVPUSH Q8H PRN PRN Reason: Nausea and Vomiting Last Admin: 05/26/25 07:49 Dose: 4 mg Documented By: MARANDA Oxycodone HCl (Oxycodone Hcl Immed Release 5 Mg Tablet) 5 mg PO Q6H PRN PRN Reason: Pain, Moderate(Pain Scale 4-6) Last Admin: 05/27/25 03:19 Dose: 5 mg Documented By: MARY Pantoprazole Sodium (Pantoprazole Sodium 40 Mg/10 Ml Vial) 40 mg IVPUSH BID@0630,1630 [facility] Last Admin: 05/27/25 03:33 Dose: 40 mg Documented By: MARY Rivaroxaban (Rivaroxaban 20 Mg Tablet) 20 mg PO DAILY@1700 [facility] Last Admin: 05/26/25 17:51 Dose: 20 mg Documented By: STEFANO Sodium Chloride (0.9 % Sodium Chloride Flush 3 Ml Syringe) 3 ml IVFLUSH QSHIFT [facility] Last Admin: 05/27/25 07:56 Dose: 3 ml Documented By: JOSE DAVID Venlafaxine HCl (Venlafaxine Hcl 25 Mg Tablet) 50 mg PO BID [facility] Last Admin: 05/27/25 07:59 Dose: 50 mg Documented By: JOSE DAVID Labs 05/27/25 06:10 05/27/25 06:10 Labs: Laboratory Results - last 24 hr 05/26/25 05/26/25 05/27/25 16:07 19:29 06:10 MCV 86.3 MCH 29.9 MCHC 34.6 RDW 14.6 Plt Count 258 MPV 9.9 Immature Gran % (Auto) 0.5 H Neut % (Auto) 57.4 Lymph % (Auto) 31.7 [place] % (Auto) 8.8 Eos % (Auto) 0.9 Baso % (Auto) 0.7 Lymph # (Auto) 3.4 [place] # (Auto) 0.9 Eos # (Auto) 0.1 Baso # (Auto) 0.1 Abs Immat Gran (auto) 0.05 H Absolute Neuts (auto) 6.1 Absolute Nucleated RBC 0.000 Nucleated RBC % (auto) 0.0 Anion Gap 11 L Estim Creat Clear Calc 137.8 Estimated GFR > 60 POC Glucose 199 H 219 H Random Glucose 204 H Calcium 8.5 D 05/27/25 05/27/25 07:24 11:29 MCV MCH MCHC RDW Plt Count MPV Immature Gran % (Auto) Neut % (Auto) Lymph % (Auto) [place] % (Auto) Eos % (Auto) Baso % (Auto) Lymph # (Auto) [place] # (Auto) Eos # (Auto) Baso # (Auto) Abs Immat Gran (auto) Absolute Neuts (auto) Absolute Nucleated RBC Nucleated RBC % (auto) Anion Gap Estim Creat Clear Calc Estimated GFR POC Glucose 187 H 152 H Random Glucose Calcium Assessment and Plan (1) Gastroparesis: Status: Acute Plan 64-year-old male with a PMH significant for?insulin-dependent type 2 diabetes, diabetic gastroparesis, CAD s/p CABG in 2018, paroxysmal AFib on Xarelto, PVD, HTN, hx of osteomyelitis s/p amputation of 1st and 2nd left toes, and peripheral neuropathy who presents to the ED with?abdominal pain and N/V/D x3 days. Pt is admitted to the hospital under observation for treatment and further evaluation of acute on chronic diabetic gastroparesis with intractable N/V/D. #. Diabetic gastroparesis flare: Symptoms did not improve with IV Reglan. Will switch to azithromycin 250 mg 30 minute before meals. Appreciate GI. Advance diet as tolerated. On IV Protonix. Continue crystalloid resuscitation #. Insulin-dependent type 2 diabetes mellitus: Continue basal plus insulin regimen #. Paroxysmal atrial fibrillation: On Eliquis #. CAD: On aspirin and statin #. Hypertension: Continue home antihypertensives #. Mood disorder: Continue home mood stabilizers Full Code DVT Prophylaxis: xarelto Reason for continued hospitalization: Awaiting return of bowel function Quality Stroke Does the patient have a stroke diagnosis?: No VTE Prior VTE?: No VTE Risk Level:: Medical - moderate - high VTE Device Contraindication: Treatment Not Indicated VTE Drug Contraindication: N/A - Med Ordered
--- NOTE | 2025-05-27 13:10 | P.CDIM_ITS ---
PROVIDER RESPONSE TEXT: To clarify, the appropriate diagnosis supported by the clinical indicators: Other (explain): HTN QUERY TEXT: PHYSICIAN'S DOCUMENTATION REQUEST Date of Query: 05/27/2025 01:03 PM EDT Patient Name: Patric Gomez Admit Date: 05/26/2025 Dear Rigoberto Acosta MD, A review of the medical record indicates additional documentation may be needed. Please review below and update the documentation accordingly. Clinical Indicators: GI consultation / - 64 yr old with type 2 diabetes with gastroparesis, CAD, Congestive heart failure. Home medication: Furosemide 20 mg PO daily. History of Echo performed. Please provide further specificity regarding the most likely type and acuity of CHF documented within the medical record: Systolic Please specify if Acute, Chronic, or Acute on chronic, or Unable to determine Diastolic Please specify if Acute, Chronic, or Acute on chronic, or Unable to determine Combined Systolic/Diastolic Please specify if Acute, Chronic, or Acute on chronic, or Unable to determine Other (explain) Clinically unable to determine (explain) Thank you, Paulina Javier, CCS, CDIS Use of terms such as suspected, likely, concern for, or probable (associated with a specific diagnosis that is being evaluated, monitored, or treated as if it exists) are acceptable and can be coded in the inpatient setting, when documented at the time of discharge. Please use your independent medical judgment in providing your response. THIS QUERY IS PART OF THE PERMANENT MEDICAL RECORD
--- NOTE | 2025-05-27 13:51 | MHC.CM.PN ---
EMR REVIEWED AND PER MD ROUNDS, PT IS NOT MEDICALLY CLEARED FOR DC (NAUSEA, POOR PO INTAKE) CM WILL CONTINUE TO FOLLOW FOR ANY CHANGE TO DC PLAN/NEEDS.
[2025-05-27 16:18] LABS: Glucose, Whole Blood 137 mg/dL (60-115)
[2025-05-27 16:27] VITALS: BP 131/78; PULSE 63; RESP 16; TEMP 36.7; O2SAT 99
[2025-05-27 19:22] VITALS: BP 129/73; PULSE 65; RESP 17; TEMP 36; O2SAT 95
[2025-05-27] MEDS: Insulin Glargine,Hum.rec.anlog 100 UNIT/ML 10 ML VIAL 8 UNIT SUBCUT (20:14)
[2025-05-27 20:16] LABS: Glucose, Whole Blood 122 mg/dL (60-115)
[2025-05-28 03:32] VITALS: BP 128/66; PULSE 65; RESP 18; TEMP 36; O2SAT 96
[2025-05-28] MEDS: oxyCODONE HCl Immed Release 5 MG TABLET PO ×3 (03:39→19:25)
[2025-05-28] MEDS: Lactated Ringers 1,000 ML 100 ML IVCONT ×2 (04:30→14:48)
[2025-05-28 06:26] LABS: MANUAL DIFF FLAG NO
[2025-05-28 06:38] LABS: Hematocrit 36.2 % (42.0-52.0); Hemoglobin 12.7 g/dl (14.0-18.0); Imm Gran Abs Auto 0.03 X10*3/uL (0.00-0.03); Imm Gran Pct Auto 0.3 % (0.0-0.4); Lymphocytes Absolute Auto 3.5 X10*3/uL (1.2-4.9); Mean Corpuscular HGB Conc 35.1 g/dl (31.0-36.0); Mean Corpuscular Hemoglobin 29.9 pg (27.0-33.0); Mean Corpuscular Volume 85.2 fL (80.0-98.0); NRBC Abs Auto 0.000 X10*3/uL (0.0-0.012); NRBC Pct Auto 0.0 /100WBC (0.0-0.2); Platelet Count 240 X10*3/uL (160-400); Red Blood Count 4.25 X10*6/uL (4.60-5.80); White Blood Count 9.7 X10*3/uL (4.8-10.8)
[2025-05-28 06:51] LABS: Anion Gap 12 (12-20); Blood Urea Nitrogen 11 mg/dL (9-16); Calcium 8.3 mg/dL (8.4-10.2); Carbon Dioxide 25 mmol/L (22-29); Chloride 108 mmol/L (96-108); Creatinine Clr Calc Pharmacy 150.1; Estimated Glomerular Filt Rate > 60; Potassium 3.2 mmol/L (3.3-5.1); Sodium 142 mmol/L (135-145)
[2025-05-28 07:22] VITALS: BP 156/74; PULSE 70; RESP 16; TEMP 36.7; O2SAT 97
[2025-05-28 07:29] LABS: Glucose, Whole Blood 104 mg/dL (60-115)
[2025-05-28] MEDS: Insulin Glargine,Hum.rec.anlog 100 UNIT/ML 10 ML VIAL 6 UNIT SUBCUT (07:42)
[2025-05-28 07:43] VITALS: BP 156/74; PULSE 70
[2025-05-28] MEDS: Metoprolol Succinate ER 25 MG TAB.ER.24H PO (07:43)
[2025-05-28] MEDS: Aspirin Enteric Coated 81 MG TABLET.DR PO (07:44)
[2025-05-28] MEDS: Potassium Chloride/H20 10 MEQ/100 ML PIGGYBACK 100 MEQ IV (07:56)
[2025-05-28] MEDS: Potassium Chloride Packet 20 MEQ PACKET 40 MEQ PO (08:52)
--- NOTE | 2025-05-28 09:21 | P.PNIM_ITS ---
Subjective Subjective Date of Service: 05/28/25 Interval History: Continues to have nausea but willing to advance diet Constitutional Constitutional: Denies body ache(s), Denies chills, Denies fatigue, Denies fever(s) and Denies headache(s) Eyes Eyes: Denies change in vision ENT Ears, Nose, Mouth, and Throat: Denies headache(s), Denies nasal congestion and Denies sore throat Cardiovascular Cardiovascular: Denies chest pain, Denies rapid heart rate, Denies lightheadedness and Denies dyspnea Respiratory Respiratory: Denies chest congestion, Denies cough, Denies dyspnea and Denies wheezing Gastrointestinal Gastrointestinal: Reports as per HPI, Reports abdominal pain and Reports nausea Genitourinary Genitourinary: Denies dysuria Musculoskeletal Musculoskeletal: Denies myalgias Integumentary/Breasts Skin/Breast: Denies rash Neurologic Neurologic: Denies confusion and Denies headache(s) Psychiatric Psychiatric: Denies confusion Endocrine Endocrine: Denies fatigue Hematologic/Lymphatic Hematologic/Lymphatic: Denies easy bleeding and Denies easy bruising Allergic/Immunologic Allergic/Immunologic: Denies wheezing Physical Exam 2 Vital Signs: Vital Signs: Last Vital Signs Temp 98.1 F 05/28/25 07:22 Pulse 70 05/28/25 07:43 Resp 16 05/28/25 07:22 BP 156/74 H 05/28/25 07:43 Pulse Ox 97 05/28/25 07:22 O2 Del Method Room Air 05/28/25 07:22 BMI result Body Mass Index 32.4 Const: Other: Middle-aged male lying in bed in no distress Neck supple, no JVD Regular rate and rhythm, S1-S2 heard Regular breath sounds bilaterally, no wheezing or crackles appreciated Abdomen soft nontender, no guarding, no rigidity Patient is awake, alert and oriented to self, place, time and person ; no focal motor deficit Psych: Normal mood No pedal edema General: No confusion Orientation/consciousness: No confusion Neuro: General: No confusion Objective Data Active Medications Acetaminophen (Acetaminophen 325 Mg Tablet) 975 mg PO Q6H PRN PRN Reason: Pain, Mild 1-3,fever,headache Aspirin (Aspirin Enteric Coated 81 Mg Tablet.) 81 mg PO DAILY WILLIAM Last Admin: 05/28/25 07:44 Dose: 81 mg Documented By: KATIA Atorvastatin Calcium (Atorvastatin Calcium 80 Mg Tablet) 80 mg PO BEDTIME WILLIAM Last Admin: 05/27/25 20:05 Dose: 80 mg Documented By: YAMILETH Calcium Carbonate (Calcium Carbonate 750 Mg Tab.Chew) 750 mg PO Q4H PRN PRN Reason: Heartburn Dextrose (Dextrose 50 % 25 Gm/50 Ml Syringe) 25 gm IVPUSH Q15M PRN; Protocol PRN Reason: per Hypoglycemia Standing Ord. Ezetimibe (Ezetimibe 10 Mg Tablet) 10 mg PO BEDTIME WILLIAM Last Admin: 05/27/25 20:05 Dose: 10 mg Documented By: YAMILETH Erythromycin (Erythromycin Base 250 Mg Tablet) 250 mg PO TID WILLIAM Last Admin: 05/28/25 07:43 Dose: 250 mg Documented By: KATIA Furosemide (Furosemide 20 Mg Tablet) 20 mg PO DAILY [facility]; Protocol Last Admin: 05/28/25 07:43 Dose: 20 mg Documented By: KATIA Gabapentin (Gabapentin 300 Mg Capsule) 300 mg PO TID WILLIAM Last Admin: 05/28/25 07:43 Dose: 300 mg Documented By: KATIA Glucose (Glucose Gel 15 Gm Gel..Gram.) 15 gm PO Q15M PRN; Protocol PRN Reason: per Hypoglycemia Standing Ord. Hydromorphone HCl (Hydromorphone Hcl 0.5 Mg/0.5 Ml Syringe) 0.5 mg IVPUSH Q4H PRN; Protocol PRN Reason: Pain, Severe (Pain Scale 7-10) Last Admin: 05/28/25 05:21 Dose: 0.5 mg Documented By: YAMILETH Lactated Ringer's (Lr) 1,000 mls @ 100 mls/hr IVCONT .Q10H [facility] Last Admin: 05/28/25 04:30 Dose: 100 mls/hr Documented By: YAMILETH Insulin Glargine (Insulin Glargine,Hum.Rec.Anlog 100 Unit/Ml 10 Ml Vial) 6 unit SUBCUT DAILY [facility] Last Admin: 05/28/25 07:42 Dose: 6 unit Documented By: AKTIA Insulin Glargine (Insulin Glargine,Hum.Rec.Anlog 100 Unit/Ml 10 Ml Vial) 8 unit SUBCUT BEDTIME [facility] Last Admin: 05/27/25 20:14 Dose: 8 unit Documented By: YAMILETH Insulin Human Lispro (Insulin Lispro 100 Unit/Ml 3 Ml Vial) 0 unit SUBCUT QIDACHS [facility]; Protocol Last Admin: 05/28/25 07:31 Dose: Not Given Documented By: KATIA Non-Admin Reason: No Insulin Coverage Isosorbide Mononitrate (Isosorbide Mononitrate 30 Mg Tab.Er.24h) 30 mg PO DAILY [facility]; Protocol Last Admin: 05/28/25 07:43 Dose: 30 mg Documented By: KATIA Loratadine (Loratadine 10 Mg Tablet) 10 mg PO DAILY [facility] Last Admin: 05/28/25 07:44 Dose: 10 mg Documented By: KATIA Losartan Potassium (Losartan Potassium 25 Mg Tablet) 25 mg PO DAILY [facility]; Protocol Last Admin: 05/28/25 07:43 Dose: 25 mg Documented By: KATIA Magnesium Hydroxide (Milk Of Magnesia 30 Ml Oral.Susp) 30 ml PO DAILY PRN PRN Reason: Constipation Meclizine HCl (Meclizine Hcl 25 Mg Tablet) 25 mg PO TID PRN PRN Reason: Dizziness Or Vertigo Melatonin (Melatonin 3 Mg Tablet) 6 mg PO BEDTIME PRN PRN Reason: Insomnia Metoprolol Succinate (Metoprolol Succinate Er 25 Mg Tab.Er.24h) 25 mg PO DAILY [facility]; Protocol Last Admin: 05/28/25 07:43 Dose: 25 mg Documented By: KATIA Omeprazole (Omeprazole 20 Mg Capsule.Dr) 20 mg PO BID@0630,1830 [facility] Last Admin: 05/28/25 05:21 Dose: 20 mg Documented By: YAMILETH Ondansetron HCl (Ondansetron Hcl 4 Mg/2 Ml Vial) 4 mg IVPUSH Q8H PRN PRN Reason: Nausea and Vomiting Last Admin: 05/28/25 05:21 Dose: 4 mg Documented By: YAMILETH Oxycodone HCl (Oxycodone Hcl Immed Release 5 Mg Tablet) 5 mg PO Q6H PRN PRN Reason: Pain, Moderate(Pain Scale 4-6) Last Admin: 05/28/25 03:39 Dose: 5 mg Documented By: YAMILETH Pantoprazole Sodium (Pantoprazole Sodium 40 Mg/10 Ml Vial) 40 mg IVPUSH BID@0630,1630 [facility] Last Admin: 05/28/25 05:21 Dose: 40 mg Documented By: YAMILETH Rivaroxaban (Rivaroxaban 20 Mg Tablet) 20 mg PO DAILY@1700 [facility] Last Admin: 05/27/25 16:06 Dose: 20 mg Documented By: JOSE DAVID Sodium Chloride (0.9 % Sodium Chloride Flush 3 Ml Syringe) 3 ml IVFLUSH QSHIFT [facility] Last Admin: 05/28/25 07:20 Dose: Not Given Documented By: KATIA Non-Admin Reason: IV Running Venlafaxine HCl (Venlafaxine Hcl 25 Mg Tablet) 50 mg PO BID [facility] Last Admin: 05/28/25 07:43 Dose: 50 mg Documented By: KATIA Labs 05/28/25 05:58 05/28/25 05:58 Labs: Laboratory Results - last 24 hr 05/27/25 05/27/25 05/27/25 11:29 16:14 20:10 MCV MCH MCHC RDW Plt Count MPV Immature Gran % (Auto) Neut % (Auto) Lymph % (Auto) [place] % (Auto) Eos % (Auto) Baso % (Auto) Lymph # (Auto) [place] # (Auto) Eos # (Auto) Baso # (Auto) Abs Immat Gran (auto) Absolute Neuts (auto) Absolute Nucleated RBC Nucleated RBC % (auto) Anion Gap Estim Creat Clear Calc Estimated GFR POC Glucose 152 H 137 H 122 H Random Glucose Calcium 05/28/25 05/28/25 05:58 07:25 MCV 85.2 MCH 29.9 MCHC 35.1 RDW 14.3 Plt Count 240 MPV 9.7 Immature Gran % (Auto) 0.3 Neut % (Auto) 53.2 Lymph % (Auto) 35.6 [place] % (Auto) 8.1 Eos % (Auto) 2.2 Baso % (Auto) 0.6 Lymph # (Auto) 3.5 [place] # (Auto) 0.8 Eos # (Auto) 0.2 Baso # (Auto) 0.1 Abs Immat Gran (auto) 0.03 Absolute Neuts (auto) 5.2 Absolute Nucleated RBC 0.000 Nucleated RBC % (auto) 0.0 Anion Gap 12 Estim Creat Clear Calc 150.1 Estimated GFR > 60 POC Glucose 104 Random Glucose 107 Calcium 8.3 L Assessment and Plan (1) Diabetic gastroparesis: Status: Acute Plan 64-year-old male with a PMH significant for?insulin-dependent type 2 diabetes, diabetic gastroparesis, CAD s/p CABG in 2018, paroxysmal AFib on Xarelto, PVD, HTN, hx of osteomyelitis s/p amputation of 1st and 2nd left toes, and peripheral neuropathy who presents to the ED with?abdominal pain and N/V/D x3 days. Pt is admitted to the hospital under observation for treatment and further evaluation of acute on chronic diabetic gastroparesis with intractable N/V/D. #. Diabetic gastroparesis flare: Symptoms did not improve with IV Reglan. Switched to azithromycin 250 mg 30 minute before meals. Also scheduled Benadryl and Zofran. Appreciate GI. Advance diet as tolerated. On IV Protonix. Continue crystalloid resuscitation #. Hypokalemia: Repleted #. Insulin-dependent type 2 diabetes mellitus: Continue basal plus insulin regimen #. Paroxysmal atrial fibrillation: On Eliquis #. CAD: On aspirin and statin #. Hypertension: Continue home antihypertensives #. Mood disorder: Continue home mood stabilizers Full Code DVT Prophylaxis: xarelto Reason for continued hospitalization: Awaiting return of bowel function Quality Stroke Does the patient have a stroke diagnosis?: No VTE Prior VTE?: No VTE Risk Level:: Medical - moderate - high VTE Device Contraindication: Treatment Not Indicated VTE Drug Contraindication: N/A - Med Ordered
[2025-05-28 11:15] LABS: Glucose, Whole Blood 132 mg/dL (60-115)
[2025-05-28 15:18] VITALS: BP 139/72; PULSE 71; RESP 20; TEMP 36.6; O2SAT 95
[2025-05-28 16:31] LABS: Glucose, Whole Blood 107 mg/dL (60-115)
[2025-05-28 19:06] VITALS: BP 103/57; PULSE 76; RESP 18; TEMP 36.1; O2SAT 95
[2025-05-28 20:40] LABS: Glucose, Whole Blood 131 mg/dL (60-115)
[2025-05-28] MEDS: Insulin Glargine,Hum.rec.anlog 100 UNIT/ML 10 ML VIAL 8 UNIT SUBCUT (21:07)
[2025-05-29] MEDS: Lactated Ringers 1,000 ML 100 ML IVCONT (00:26)
[2025-05-29 03:31] VITALS: BP 123/61; PULSE 62; RESP 18; TEMP 36.3; O2SAT 96
[2025-05-29] MEDS: oxyCODONE HCl Immed Release 5 MG TABLET PO (05:09)
[2025-05-29 06:22] LABS: MANUAL DIFF FLAG NO
[2025-05-29 06:26] LABS: Hematocrit 34.2 % (42.0-52.0); Hemoglobin 11.6 g/dl (14.0-18.0); Imm Gran Abs Auto 0.02 X10*3/uL (0.00-0.03); Imm Gran Pct Auto 0.2 % (0.0-0.4); Lymphocytes Absolute Auto 3.3 X10*3/uL (1.2-4.9); Mean Corpuscular HGB Conc 33.9 g/dl (31.0-36.0); Mean Corpuscular Hemoglobin 29.2 pg (27.0-33.0); Mean Corpuscular Volume 86.1 fL (80.0-98.0); NRBC Abs Auto 0.000 X10*3/uL (0.0-0.012); NRBC Pct Auto 0.0 /100WBC (0.0-0.2); Platelet Count 242 X10*3/uL (160-400); Red Blood Count 3.97 X10*6/uL (4.60-5.80); White Blood Count 8.9 X10*3/uL (4.8-10.8)
[2025-05-29 06:40] LABS: Anion Gap 11 (12-20); Blood Urea Nitrogen 8 mg/dL (9-16); Calcium 8.4 mg/dL (8.4-10.2); Carbon Dioxide 27 mmol/L (22-29); Chloride 108 mmol/L (96-108); Creatinine Clr Calc Pharmacy 133.5; Estimated Glomerular Filt Rate > 60; Magnesium 1.8 mg/dL (1.6-2.6); Potassium 3.4 mmol/L (3.3-5.1); Sodium 143 mmol/L (135-145)
[2025-05-29 07:08] VITALS: BP 126/59; PULSE 69; RESP 16; TEMP 36.3; O2SAT 94
[2025-05-29 07:16] LABS: Glucose, Whole Blood 93 mg/dL (60-115)
[2025-05-29 08:09] VITALS: BP 126/59
[2025-05-29] MEDS: Insulin Glargine,Hum.rec.anlog 100 UNIT/ML 10 ML VIAL 6 UNIT SUBCUT (08:09)
[2025-05-29 08:10] VITALS: BP 126/59; PULSE 69
[2025-05-29] MEDS: Metoprolol Succinate ER 25 MG TAB.ER.24H PO (08:10)
[2025-05-29] MEDS: Aspirin Enteric Coated 81 MG TABLET.DR PO (08:10)
[2025-05-29] MEDS: iohexoL 350 MG/ML 100 ML INFUS..BTL IV (09:31)
--- NOTE | 2025-05-29 10:45 | PM.DS ---
DS: Providers Provider Date of Service: 05/29/25 Date of admission: 05/26/25 06:45 Date of discharge: 05/29/25 Primary care physician: Marley Rick MD Consults: 05/26/25 06:59 Consult to Gastroenterology Routine Consulting Provider: Mi Cline Reason for consultation: recurrent gastroparesis DS: Diagnosis Discharge Diagnosis (1) Diabetic gastroparesis: Status: Acute DS: Summary Hospital Course Hospital Course: HPI as per admitting provider: Patient is a 64-year-old male with a past medical history significant for insulin-dependent diabetes, gastroparesis, hypertension, paroxysmal AFib, morbid obesity, who presented to the ED again due to intractable abdominal pain, nausea, vomiting ?secondary to gastroparesis. He was recently seen in the ED for this discharged home with Reglan which he reports he has not been helpful. He is complaining of significant abdominal pain mostly centralized, rating it an 8/10 and requesting pain management at this time. He has been unable to tolerate anything PO x3 days. still having diarrhea without blood. He denies any fever, chills, shortness of breath, chest pain or urinary symptoms. Hospital course: Patient was admitted with IV fluids, IV Protonix, antiemetics p.r.n. for diabetic gastroparesis flare. Electrolytes repleted during hospital course. Diet was slowly advanced as tolerated. Patient's symptoms did not improve with IV Reglan source switch to erythromycin 250 mg 30 minute before meals, as per GI recommendations. Patient with resolution of symptoms before discharge. He was able to tolerate p.o. diet prior to discharge. CT abdomen/pelvis without any acute abnormality. He is hemodynamically stable to be discharged with close follow-up with PCP and Gastroenterology after discharge. Recommended to get gastric emptying study as an outpatient. Status at Discharge Functional status at discharge: independent ambulation Overall status at discharge: patient is back to baseline Time Attestation Discharge Coordination Time (in mins): Thirty-five Quality: Safe Use of Opioids Does Pt have an Active Cancer Diagnosis on the Problem List?: No Quality: Stroke Does the patient have a stroke diagnosis?: No Physical Exam Vital Signs: Vital Signs: Last Vital Signs Temp 97.4 F 05/29/25 07:08 Pulse 69 05/29/25 08:10 Resp 16 05/29/25 07:08 BP 126/59 L 05/29/25 08:10 Pulse Ox 94 05/29/25 07:08 O2 Del Method Room Air 05/29/25 07:08 BMI result Body Mass Index 32.4 Const: Other: Middle-aged male lying in bed in no distress Neck supple, no JVD Regular rate and rhythm, S1-S2 heard Regular breath sounds bilaterally, no wheezing or crackles appreciated Abdomen soft nontender, no guarding, no rigidity Patient is awake, alert and oriented to self, place, time and person ; no focal motor deficit Psych: Normal mood DS: Data Data Completed and Pending Completed studies during hospitalization [Text1]: Procedures Detachment at Left 1st Toe, Complete, Open Approach (01/03/22) Drainage of Pelvic Region Subcutaneous Tissue and Fascia, Open Approach (04/30/23) Fluoroscopy of Left Lower Extremity Arteries using High Osmolar Contrast (08/04/22) Fluoroscopy of Right Subclavian Vein using Low Osmolar Contrast, Guidance (08/04/22) Insertion of Infusion Device into Right Subclavian Vein, Percutaneous Approach (08/04/22) Insertion of Infusion Device into Superior Vena Cava, Percutaneous Approach (01/20/22) Ultrasonography of Superior Vena Cava, Guidance (01/03/22) Labs on day of discharge: Laboratory Results - last 24 hr 05/28/25 05/28/25 05/28/25 11:03 16:20 20:35 WBC RBC Hgb Hct MCV MCH MCHC RDW Plt Count MPV Immature Gran % (Auto) Neut % (Auto) Lymph % (Auto) [place] % (Auto) Eos % (Auto) Baso % (Auto) Lymph # (Auto) [place] # (Auto) Eos # (Auto) Baso # (Auto) Abs Immat Gran (auto) Absolute Neuts (auto) Absolute Nucleated RBC Nucleated RBC % (auto) Sodium Potassium Chloride Carbon Dioxide Anion Gap BUN Creatinine Estim Creat Clear Calc Estimated GFR POC Glucose 132 H 107 131 H Random Glucose Calcium Magnesium 05/29/25 05/29/25 06:07 07:12 WBC 8.9 RBC 3.97 L Hgb 11.6 L Hct 34.2 L MCV 86.1 MCH 29.2 MCHC 33.9 RDW 14.1 Plt Count 242 MPV 9.9 Immature Gran % (Auto) 0.2 Neut % (Auto) 52.0 Lymph % (Auto) 36.7 [place] % (Auto) 7.5 Eos % (Auto) 2.9 Baso % (Auto) 0.7 Lymph # (Auto) 3.3 [place] # (Auto) 0.7 Eos # (Auto) 0.3 Baso # (Auto) 0.1 Abs Immat Gran (auto) 0.02 Absolute Neuts (auto) 4.6 Absolute Nucleated RBC 0.000 Nucleated RBC % (auto) 0.0 Sodium 143 Potassium 3.4 Chloride 108 Carbon Dioxide 27 Anion Gap 11 L BUN 8 L Creatinine 0.63 Estim Creat Clear Calc 133.5 Estimated GFR > 60 POC Glucose 93 Random Glucose 88 Calcium 8.[address] scan - abdomen: Radiologist's impression: CT abdomen and pelvis with contrast Impression: No definite acute process. Discharge Plan Discharge Anticipated Discharge Date/Time: 05/29/25 10:41 Patient Disposition: Home, Self-Care Discharge Diagnosis: Diabetic gastroparesis flare Referrals: PCP Trent Bird [Other] - 1 Week Referral Note: [facility] Discharge Medications: New erythromycin 250 mg Tablet 250 mg PO TID 20 Days Qty: 60 0RF Continued (DME) walker Misc See Rx Instructions .Route Qty: 1 0RF Rx Instructions: As directed (DME) Aircast off loading boot Kit See Rx Instructions .Route Qty: 1 0RF Rx Instructions: As directed (DME) elastic bandage 6 X 1.8 -yard bandage See Rx Instructions .Route Qty: 6 0RF Rx Instructions: As directed (DME) gauze bandage [Band-Aid Gauze Pads] 4 X 4 bandage See Rx Instructions .Route Qty: 25 3RF Rx Instructions: As directed (DME) sterile gauze 4x4 See Rx Instructions .Route .MEDSUPPLY Qty: 40 3RF Rx Instructions: Apply to left foot wound every other day (DME) calcium alginate ag 4x4 pad See Rx Instructions .Route .MEDSUPPLY Qty: 5 2RF Rx Instructions: Apply to wound beds every other day insulin glargine [Lantus U-100 Insulin] 100 unit/mL solution 10 unit subcut BEDTIME isosorbide mononitrate 30 mg tablet extended release 24 hr 30 mg PO DAILY losartan 25 mg tablet 25 mg PO DAILY gabapentin 300 mg capsule 300 mg PO TID loratadine 10 mg tablet 10 mg PO DAILY ezetimibe 10 mg tablet 10 mg PO BEDTIME rosuvastatin 40 mg tablet 40 mg PO BEDTIME meclizine 25 mg tablet 25 mg PO TID PRN (Reason: Dizziness Or Vertigo) (DME) jw Molina See Rx Instructions .Route Qty: 1 0RF Rx Instructions: As directed aspirin 81 mg tablet,delayed release (DR/EC) 81 mg PO DAILY furosemide 20 mg tablet 20 mg PO DAILY metoprolol succinate 25 mg tablet extended release 24 hr 25 mg PO DAILY insulin lispro 100 unit/mL solution See Protocol subcut QIDACHS Protocol: Insulin Correction Scale Less than or equal to 110 ---- Give (units): 0 111 to 150 Give (units): 0 151 to 200 Give (units): 2 201 to 250 Give (units): 4 251 to 300 Give (units): 6 301 to 350 Give (units): 8 Greater than 350 Give (units): 10 Call MD if Blood Glucose > : 350 Xarelto 20 mg tablet 20 mg PO DAILY@1700 insulin glargine [Lantus U-100 Insulin] 100 unit/mL solution 8 unit SUBCUT DAILY venlafaxine 100 mg tablet 50 mg PO BID Qty: 1 0RF oxycodone 10 mg tablet 10 mg PO Q4H PRN (Reason: Pain) Qty: 10 0RF Gvoke HypoPen 2-Pack 1 mg/0.2 mL auto-injector 1 mg SUBCUT ONCE PRN (Reason: Hypoglycemia) lidocaine [Lidocaine Pain Relief] 4 % adhesive patch,medicated 1 patch transdermal DAILY PRN (Reason: Pain) Protocol: Apply to: Apply to: pain area pantoprazole 40 mg tablet,delayed release (DR/EC) 40 mg PO TID@0630,1130,1630 metoclopramide HCl [Reglan] 10 mg tablet 10 mg PO Q8H PRN (Reason: nausea and vomiting) Qty: 90 0RF Discharge Orders: Discharge Order (Routine); Ordered 05/29/25 Ordered By: Rigoberto Acosta Diet: Diabetic diet Activity on Discharge: As tolerated Stand Alone Forms: Patient Portal Discharge page Print Language: Chinese Care Plan Goals: Follow-up with PCP within 1 week ; gastric emptying study as an outpatient Follow-up with gastroenterology Health Concerns: Diabetic gastroparesis Plan of Treatment: Erythromycin 3 times a day 30 minute before meals Assessment: As above
[2025-05-29 11:08] LABS: Glucose, Whole Blood 101 mg/dL (60-115)
--- NOTE | 2025-05-29 11:10 | MHC.CM.PN ---
PT TO DC HOME TODAY WITH NO SERVICES VIA PRIVATE TRANSPORT
== END 2025-05-29 11:59 | disposition home or self-care (01) | DRG 48 ==
LOC: HO.ED 05-26 06:43 → HO.EDOVER 05-26 07:08 → HO.S3 05-26 07:49
PROVIDERS: Physician Assistant; Admitting Provider Hospitalist; Emergency Provider Emergency Medicine; PCP Internal Medicine; Visit Provider Student in an Organized Health Care Education/Training Program
DX: E11.43 Type 2 diabetes mellitus with diabetic autonomic (poly)neuropathy (principal); E11.65 Type 2 diabetes mellitus with hyperglycemia; I48.0 Paroxysmal atrial fibrillation; K31.84 Gastroparesis; F39 Unspecified mood [affective] disorder; E87.6 Hypokalemia; I10 Essential (primary) hypertension; Z95.1 Presence of aortocoronary bypass graft; I25.10 Atherosclerotic heart disease of native coronary artery without angina pectoris; E78.5 Hyperlipidemia, unspecified; Z79.01 Long term (current) use of anticoagulants; Z87.891 Personal history of nicotine dependence; Z79.4 Long term (current) use of insulin; Z79.82 Long term (current) use of aspirin; Z79.899 Other long term (current) drug therapy
CPT/HCPCS: 36415; 74176; 74177; 80048; 80053; 81001; 82947; 83690; 83735; 85025; 93005; 99285; J1171; J1308; J2405; J2470; J2765; J3480; J7120; Q9967

== ENCOUNTER → 2025-05-25 22:13 | Outpatient (BNV) | payer OTHER, SELFPAY | PROVIDERS: Admitting Provider Hospitalist; Emergency Provider Emergency Medicine; Visit Provider Internal Medicine Cardiovascular Disease | DX: R00.0 Tachycardia, unspecified (principal) | CPT/HCPCS: 93010 ==

== ENCOUNTER 2025-05-26 06:45 | Outpatient (BNV) | payer OTHER, SELFPAY | END 2025-05-26 07:09 | PROVIDERS: Admitting Provider Hospitalist; Emergency Provider Emergency Medicine; Visit Provider Radiology Diagnostic Radiology | DX: R10.84 Generalized abdominal pain (principal) | CPT/HCPCS: 74176 ==

== ENCOUNTER 2025-05-26 06:45 | Outpatient (BNV) | payer OTHER, SELFPAY | END 2025-05-29 08:15 | PROVIDERS: Admitting Provider Hospitalist; Emergency Provider Emergency Medicine; PCP Internal Medicine; Visit Provider Radiology Vascular & Interventional Radiology | DX: R10.10 Upper abdominal pain, unspecified (principal) | CPT/HCPCS: 74177 ==

== ENCOUNTER → 2025-05-26 06:45 | Outpatient (BNV) | payer OTHER, SELFPAY | PROVIDERS: Admitting Provider Hospitalist; Emergency Provider Emergency Medicine; Visit Provider Physician Assistant | DX: E11.43 Type 2 diabetes mellitus with diabetic autonomic (poly)neuropathy (principal); K31.84 Gastroparesis | CPT/HCPCS: 99223; 99232; 99239 ==

== ENCOUNTER → 2025-05-26 06:45 | Outpatient (BNV) | payer OTHER, SELFPAY | PROVIDERS: Admitting Provider Hospitalist; Emergency Provider Emergency Medicine; Visit Provider Internal Medicine Gastroenterology | DX: K31.84 Gastroparesis (principal); R10.9 Unspecified abdominal pain; R11.2 Nausea with vomiting, unspecified | CPT/HCPCS: 99222 ==

== ENCOUNTER 2025-07-19 12:53 | Inpatient (IN) | payer OTHER, SELFPAY ==
[2025-07-19] VITALS (11 sets, daily range): BP systolic 109–201; BP diastolic 59–101; PULSE 81–108; RESP 14–24; TEMP 36.3–37.2; O2SAT 93–100; BMI 38.0
--- NOTE | 2025-07-19 | ECG_ITS ---
Test Reason : CHECK QT Blood Pressure : */* mmHG Vent. Rate : 89 BPM Atrial Rate : 89 BPM P-R Int : 206 ms QRS Dur : 92 ms QT Int : 390 ms P-R-T Axes : 43 -19 40 degrees QTcB Int : 474 ms Normal sinus rhythm Inferior infarct , age undetermined Abnormal ECG When compared with ECG of 25-May-2025 22:13, Inferior infarct is now Present Nonspecific T wave abnormality now evident in Anterior leads Referred By: Nikole Mckenzie Electronically Signed By: Kenny Pond
--- NOTE | ~2025-07-19 | CT_ITS ---
EXAMINATION: CT ANGIOGRAM ABDOMEN AND PELVIS CLINICAL INFORMATION: Abdominal pain, concern for mesenteric ischemia. COMPARISON: No prior CT angiogram. CT abdomen and pelvis 05/29/2025. TECHNIQUE: Multiple axial images were obtained through the abdomen and pelvis following the administration of 80 mL of Omnipaque 350 intravenous contrast. Images were reviewed on a dedicated 3-D workstation. This CT examination was performed using dose optimization techniques as appropriate, variously including the following: *Automated exposure control *Adjustment of mA and/or kV according to patient size (this includes techniques or standardized protocols for targeted exams where dose is matched to indication/reason for exam; i.e. extremities or head) *Use of iterative reconstruction technique FINDINGS: VASCULAR: There is extensive calcific atheromatous disease of the arterial structures. There is no aortic aneurysm or iliac aneurysm. There is no high-grade aortic or iliac stenosis. There is a mild to moderate stenosis at the origin of the celiac artery, which enhances normally as does its branches. The SMA demonstrates a mild stenosis at the origin due to calcific plaque, however there is normal enhancement of the vessel and the majority of its branches, although the right colic branches are hypoenhancing, and there is thickening and inflammation of the ascending colon extending to the mid transverse colon. The renal arteries demonstrate moderate stenosis on the right and mild stenosis on the left. No tandem stenoses. The FRANKIE enhances normally, as does its branches. The hypogastric arteries are patent without high-grade stenoses. They are heavily calcified. The common femoral arteries are heavily calcified with mild stenoses bilaterally. LUNG BASES: There is mild subpleural scarring in both lung bases. There is mild cylindrical bronchiectasis of the small airways. There are no effusions. There are no consolidations. The heart size is normal. There are heavy coronary calcifications noted. LIVER: The liver is normal in size and contour. No liver mass is identified. The hepatic and portal veins are patent. GALLBLADDER / BILE DUCTS: The gallbladder is surgically absent. There is no intra or extrahepatic biliary ductal dilatation. SPLEEN: The spleen is normal in size. No focal splenic lesion is identified. PANCREAS: The pancreas is unremarkable in appearance. ADRENAL GLANDS: Within normal limits. KIDNEYS/RETROPERITONEUM: No renal calculi are identified. There is no hydronephrosis. There are subcentimeter hypodensities in the kidneys which likely represent cysts, but are too small to accurately characterize. LYMPH NODES: No abdominal or pelvic lymphadenopathy. VASCULATURE: As above. MESENTERY/PERITONEUM: No ascites. No masses. There is no free intraperitoneal air. STOMACH: There is a small type I hiatus hernia. The stomach is otherwise collapsed. SMALL BOWEL: The small bowel is normal in caliber and course. No wall thickening or inflammation. COLON: Inflammation of the ascending colon extending to the mid transverse colon. This appears to be ischemic given findings in the SMA right colic branches. The remainder of the colon is normal in course, caliber, and appearance. No rectal abnormality. APPENDIX: Normal. URINARY BLADDER/PELVIC ORGANS: The urinary bladder is partially obscured by streak artifact from bilateral total hip arthroplasties. It appears normal otherwise. The prostate is obscured. BONES / SOFT TISSUES: The patient is status post posterior fusion of L3-S1 with pedicle screws and spinal stabilization rods. There is soft tissue infiltration of the anterior abdominal wall fat below the umbilicus, contains calcifications. This may represent fat necrosis secondary to subcutaneous injections. CT/CT angio abdomen pelvis IMPRESSION: 1. There is hypoenhancement of distal right colic branches of the SMA. There may be involvement of distal middle colic branches as well. There is there is thickening and inflammation of the ascending colon extending to the mid transverse colon in keeping with ischemic colitis. There is no SMA thrombus. 2. Severe calcific atheromatous disease of the arterial structures, without aneurysm detected. 3. 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 4. Moderate stenosis of the right renal artery ostium. Mild stenosis of the left renal artery ostium. 5. Probable moderate stenosis of the inferior mesenteric artery ostium although it otherwise enhances normally. 6. Numerous ancillary findings as discussed in the body of the report. Electronically signed by: Nicko Smith MD 07/19/2025 04:57 PM EDT
--- NOTE | 2025-07-19 13:40 | ED.NAVMDI ---
HPI - Nausea/Vomiting/Diarrhea General Chief complaint: Nausea/Vomiting/Diarrhea Stated complaint: VOMITING X'S DAYS PER EMS Time Seen by Provider: 07/19/25 12:59 History of Present Illness ED Provider: Aiden Medrano MD HPI Narrative: 64-year-old male with gastroparesis obesity CAD AFib. Hospitalization in May for flare of gastroparesis Related Data Home Medications ?Medication ?Instructions ?Recorded ?Confirmed ezetimibe 10 mg tablet 10 mg PO BEDTIME 01/03/22 07/19/25 gabapentin 300 mg capsule 300 mg PO TID 01/03/22 07/19/25 insulin glargine 100 unit/mL 10 unit subcut BEDTIME 01/03/22 07/19/25 subcutaneous solution (Lantus U-100 Insulin) isosorbide mononitrate 30 mg 30 mg PO DAILY 01/03/22 07/19/25 tablet,extended release 24 hr loratadine 10 mg tablet 10 mg PO DAILY 01/03/22 07/19/25 losartan 25 mg tablet 25 mg PO DAILY 01/03/22 07/19/25 meclizine 25 mg tablet 25 mg PO TID PRN Dizziness Or 01/03/22 07/19/25 Vertigo rosuvastatin 40 mg tablet 40 mg PO BEDTIME 01/03/22 07/19/25 aspirin 81 mg tablet,delayed 81 mg PO DAILY 08/04/22 07/19/25 release furosemide 20 mg tablet 20 mg PO DAILY 11/13/22 07/19/25 metoprolol succinate 25 mg 25 mg PO DAILY 10/14/24 07/19/25 tablet,extended release 24 hr insulin lispro 100 unit/mL See Protocol subcut QIDACHS 12/16/24 07/19/25 subcutaneous solution rivaroxaban 20 mg tablet (Xarelto) 20 mg PO DAILY@1700 12/16/24 07/19/25 insulin glargine 100 unit/mL 8 unit subcut DAILY 03/23/25 07/19/25 subcutaneous solution (Lantus U-100 Insulin) glucagon 1 mg/0.2 mL subcutaneous 1 mg subcut ONCE PRN Hypoglycemia 05/26/25 07/19/25 auto-injector (Gvoke HypoPen 2-Pack) lidocaine 4 % topical patch 1 patch transdermal DAILY PRN Pain 05/26/25 07/19/25 (Lidocaine Pain Relief) pantoprazole 40 mg tablet,delayed 40 mg PO BID@0630,1630 05/26/25 07/19/25 release ondansetron 4 mg disintegrating 4 mg PO Q8H PRN Nausea And Vomiting 07/19/25 07/19/25 tablet Previous Rx's ?Medication ?Instructions ?Recorded walker #1 ea 01/11/22 walker #1 ea 01/15/22 Band-Aid Gauze Pads 4 X 4 #25 ea 04/16/22 bandage (gauze bandage) elastic bandage 6 X 1.8 yard #6 ea 04/16/22 off loading boot (Aircast off #1 ea 04/16/22 loading boot) calcium alginate ag #5 ea 04/23/22 sterile gauze #40 ea 04/23/22 oxycodone 10 mg tablet 10 mg PO Q4H PRN Pain #10 tabs 03/29/25 venlafaxine 100 mg tablet 50 mg (1/2 x 100 mg) PO BID #1 tab 03/29/25 metoclopramide HCl 10 mg tablet 10 mg PO Q8H PRN nausea and 05/24/25 (Reglan) vomiting #90 tabs Allergies Allergy/AdvReac Type Severity Reaction Status Date / Time morphine AdvReac Intermediate Hallucinati Verified 07/19/25 13:23 ons [facility] Past Medical History Medical History Hypertensive urgency Abdominal pain PVD (peripheral vascular disease) Gastroparesis DKA (diabetic ketoacidosis) Obesity (BMI 30-39.9) PAD (peripheral artery disease) Afib Amputation of left great toe Lower limb amputation, great toe CAD (coronary artery disease) DMII (diabetes mellitus, type 2) Orthopedic hardware present Hyperglycemia Cellulitis Asthma Diabetes Hypertension FHx: bilateral hip replacements Surgical History History of amputation of toe (07/29/22) History of amputation of great toe (01/07/22) History of back surgery History of neck surgery History of ankle surgery H/O bilateral hip replacements S/P quadruple vessel bypass Family History Family History Father Cancer of neck Mother Uterus cancer Other No family history of coronary artery disease Social History Social History Household Members: Spouse Household Members Other:: 3 Housing: Apartment Are you a primary aged or disabled care worker to a significant other at home: No Do you presently have visiting nurse or other home services: No Alcohol intake: never Comment: refused bed or chair alarm Patient Tobacco Use Status: Former Tobacco user Tobacco use type: Cigarette Smoked in Last 30 Days: No e-Cigarette/Vaping Use: Never Used Second Hand Smoke Exposure: No Use of substances other than those prescribed or required for medical reasons: No Substance Use Type: Marijuana Currently Displaying Signs/Symptoms of Drug Intoxication Withdrawal: No Have you been hit, kicked, punched, or otherwise hurt by someone within the past year? If so, by whom?: No Do you feel safe in your current relationship?: Yes Is there a partner from a previous relationship who is making you feel unsafe now?: No Are you made to feel afraid or neglected: No Advance Directives: Yes Advance Directives Information Provided: Yes Advance Directives on File: No Advance Directives Date on File: 07/20/25 Do you have a plan to hurt others: No Plan Nutrition Risks: No Nutritional Risk Poor oral hygiene: No service: No Current occupational status: disabled Physical Exam Vital Signs: Vital Signs: Last Vital Signs Temp 97.0 F 07/20/25 11:35 Pulse 76 07/20/25 11:35 Resp 18 07/20/25 11:35 BP 136/75 07/20/25 11:35 Pulse Ox 95 07/20/25 11:35 O2 Del Method Room Air 07/20/25 11:35 BMI result Body Mass Index 38.0 Course Reevaluation(s) Reevaluation #1: 5:21 PM 07/19/2025 (Dr. Aiden Medrano): Case discussed with general surgeon Dr. Ford. She agrees to admit the patient to follow. She is asked for GI to be consulted for possible colonoscopy which I have done. Medicine also to be consulted for hyperglycemia management. I will continue to resuscitate the patient with additional crystalloid and insulin. Medications Administered Generic Name Dose Route Start Last Admin Trade Name Freq PRN Reason Stop Dose Admin Aspirin 81 mg 07/20/25 09:00 07/20/25 08:08 Aspirin Enteric Coated 81 Mg Tablet.Dr PO 81 mg DAILY WILLIAM Administration Ceftriaxone Sodium 1 gm 07/19/25 22:00 07/19/25 21:49 Ceftriaxone Sodium 1 Gm Vial IVPUSH 1 gm Q24H WILLIAM Administration Gabapentin 300 mg 07/20/25 09:00 07/20/25 08:08 Gabapentin 300 Mg Capsule PO 300 mg TID WILLIAM Administration Hydromorphone HCl 1 mg 07/19/25 19:37 07/20/25 13:30 Hydromorphone Hcl 1 Mg/Ml Syringe IVPUSH 1 mg Q4H PRN Administration Pain, Severe (Pain Scale 7-10) Protocol Erythromycin Lactobionate 250 100 mls @ 100 mls/hr 07/19/25 15:00 07/19/25 16:02 mg/ Sodium Chloride IV Infused ONCE WILLIAM Infusion Lactated Ringer's 1,000 mls @ 150 mls/hr 07/19/25 19:15 07/20/25 08:11 Lr IVCONT 150 mls/hr .Q6H40M WILLIAM Administration Metronidazole 500 mg in 100 mls @ 100 mls/hr 07/19/25 22:00 07/20/25 13:33 Flagyl IV 100 mls/hr Q8H WILLIAM Administration Heparin Sodium/Sodium Chloride 25,000 unit in 250 mls @ 0 mls/hr 07/19/25 22:15 07/20/25 08:16 Heparin Sodium,Porcine/1/2ns IVCONT 10 units/kg/hr .Q0M WILLIAM 11.34 mls/hr Protocol Titration Per Protocol Insulin Human Lispro 0 unit 07/20/25 00:00 07/20/25 11:56 Insulin Lispro 100 Unit/Ml 3 Ml Vial SUBCUT Not Given Q6H WILLIAM Protocol Isosorbide Mononitrate 30 mg 07/20/25 09:00 07/20/25 08:08 Isosorbide Mononitrate 30 Mg Tab.Er.24h PO 30 mg DAILY WILLIAM Administration Protocol Loratadine 10 mg 07/20/25 09:00 07/20/25 08:09 Loratadine 10 Mg Tablet PO 10 mg DAILY WILLIAM Administration Metoprolol Succinate 25 mg 07/20/25 09:00 07/20/25 08:08 Metoprolol Succinate Er 25 Mg Tab.Er.24h PO 25 mg DAILY WILLIAM Administration Protocol Omeprazole 20 mg 07/20/25 06:30 07/20/25 06:13 Omeprazole 20 Mg Capsule.Dr PO Not Given BID@0630,1630 [facility] Ondansetron HCl 4 mg 07/19/25 19:37 07/20/25 11:42 Ondansetron Hcl 4 Mg/2 Ml Vial IVPUSH 4 mg Q6H PRN Administration Nausea and Vomiting Pantoprazole Sodium 40 mg 07/20/25 06:30 07/20/25 06:10 Pantoprazole Sodium 40 Mg/10 Ml Vial IVPUSH 40 mg DAILY@0630 [facility] Administration Sodium Chloride 3 ml 07/20/25 00:00 07/20/25 07:42 0.9 % Sodium Chloride Flush 3 Ml Syringe IVFLUSH Not Given QSHIFT WILLIAM Sodium Chloride 3 ml 07/20/25 00:00 07/20/25 07:43 0.9 % Sodium Chloride Flush 3 Ml Syringe [facility] Venlafaxine HCl 50 mg 07/19/25 21:15 07/20/25 08:09 Venlafaxine Hcl 25 Mg Tablet PO 50 mg BID WILLIAM Administration Discontinued Medications Generic Name Dose Route Start Last Admin Trade Name Freq PRN Reason Stop Dose Admin Diphenhydramine HCl 25 mg 07/19/25 13:21 07/19/25 13:48 Diphenhydramine Hcl 50 Mg/Ml Vial IVPUSH 07/19/25 13:22 25 mg ONCE ONE Administration Hydromorphone HCl 1.5 mg 07/19/25 14:48 07/19/25 14:52 Hydromorphone Hcl 2 Mg/Ml Vial IVPUSH 07/19/25 14:49 1.5 mg ONCE ONE Administration Protocol Hydromorphone HCl 2 mg 07/19/25 17:07 07/19/25 17:18 Hydromorphone Hcl 2 Mg/Ml Vial IVPUSH 07/19/25 17:08 2 mg ONCE ONE Administration Protocol Lactated Ringer's 1,000 mls @ 999 mls/hr 07/19/25 13:30 07/19/25 16:50 Lr IV 07/19/25 15:30 Infused .Q1H1M WILLIAM Infusion Acetaminophen 1,000 mg in 100 mls @ 400 mls/hr 07/19/25 13:18 07/19/25 14:40 Ofirmev IV 07/19/25 13:32 Infused ONCE ONE Infusion Lactated Ringer's 1,000 mls @ 999 mls/hr 07/19/25 17:00 07/19/25 19:10 Lr IV 07/19/25 18:00 Infused .Q1H1M WILLIAM Infusion Insulin Human Lispro 5 unit 07/19/25 17:00 07/19/25 17:18 Insulin Lispro 100 Unit/Ml 3 Ml Vial SUBCUT 07/19/25 17:01 5 unit ONCE ONE Administration Insulin Human Regular 10 unit 07/19/25 14:15 07/19/25 14:56 Insulin Regular, Human 100 Unit/Ml 10 Ml Vial IVPUSH 07/19/25 14:16 10 unit ONCE ONE Administration Iohexol 100 ml 07/19/25 16:12 07/19/25 16:18 Iohexol 350 Mg/Ml 100 Ml Infus..Btl IV 07/19/25 16:13 80 ml ONCE ONE Administration Metoclopramide HCl 10 mg 07/19/25 13:18 07/19/25 13:47 Metoclopramide Hcl 10 Mg/2 Ml Vial IVPUSH 07/19/25 13:19 10 mg ONCE ONE Administration Midazolam HCl 1 mg 07/19/25 13:18 07/19/25 13:55 Midazolam Hcl 2 Mg/2 Ml Vial IVPUSH 07/19/25 13:19 1 mg ONCE ONE Administration Pantoprazole Sodium 40 mg 07/19/25 13:22 07/19/25 13:43 Pantoprazole Sodium 40 Mg/10 Ml Vial IVPUSH 07/19/25 13:23 40 mg ONCE ONE Administration Procedures Procedure Narrative Procedure Narrative: Ultrasound Guided Peripheral Intravenous Catheter Placement Indication: Intravenous Access Location: Left ??Vascular Location of Catheter Tip: Basilic Provider: Self I was approached by nursing staff and informed that multiple unsuccessful attempts had been made to establish IV access in the patient. The patients arm was surveyed with the ultrasound for verification of vessel collapsibility, patency, depth and caliber, as well as identification of nearby structures. The target area was prepped with chlorhexidine. A tourniquet was placed proximally on the extremity. Under real-time ultrasound guidance, an 20 G 2.25 inch IV catheter ? was advanced into the target vein. Dark blood was visualized in the flash chamber. The catheter was easily advanced into the vein. The catheter was evacuated of air and flushed with sterile saline. The catheter was secured in place with a tegaderm. The patient tolerated the procedure well and there were no complications. Estimated Blood Loss: 1mL Total Time for Procedure: 5min Images Stored CPT: 23896; 98165 Medical Decision Making Medical Decision Making MDM Narrative: Medical Decision Makin-year-old male with obesity CAD chronic recurrent abdominal pain and gastroparesis with similar presentation to previous hospital admission for gastroparesis flare. Abdomen diffusely tender no pulsatile mass and his lower extremities appear well-perfused. Initial suspicion for recurrent gastroparesis versus pancreatitis, PUD, gastritis, enteritis. Patient's lactate returned quite high at 5.9 he does have an anion gap but no acidemia on VBG. Could be mixed acid-base disorder however likely the patient has hyperglycemia without DKA and mild anion gap acidosis from ketones and lactic acidosis. Plan for insulin aggressive crystalloid hydration, pain control initially non opioid however this was not successful an adequately controlling his pain later removed to Dilaudid. Given the severe abdominal pain elevated lactate and history of AFib although he is anticoagulated the consideration for bowel ischemia CT angio will be ordered. Preliminary Favored Differential Diagnosis: PUD, gastritis, pancreatitis, bowel obstruction, gastroparesis, mesenteric ischemia. among additional considered etiologies Testing Interpreted Independently: ?LACTATE FELT TO BE DUE TO ISCHEMIC COLITIS, NOT SEPSIS Radiology or Lab testing Results Reviewed: ?See below for details Consults: ?See below for details Independent Historians/External Chart Reviews: ?See below for details Social Determinants of Health Impacting MDM/Planning: ?See below for details Lab Data 07/20/25 05:23 07/20/25 05:23 Labs: Lab Results 07/19/25 07/19/25 07/19/25 Range/Units 13:31 13:40 15:55 WBC 14.6 H (4.8-10.8) X10*3/uL RBC 4.67 (4.60-5.80) X10*6/uL Hgb 13.4 L (14.0-18.0) g/dl Hct 39.3 L (42.0-52.0) % MCV 84.2 (80.0-98.0) fL MCH 28.7 (27.0-33.0) pg MCHC 34.1 (31.0-36.0) g/dl RDW 13.5 (11.0-16.0) % Plt Count 302 (160-400) X10*3/uL MPV 10.1 (9.4-12.4) fL Immature Gran % (Auto) 0.5 H (0.0-0.4) % Neut % (Auto) 81.8 H (45-73) % Lymph % (Auto) 14.2 L (20-40) % [place] % (Auto) 3.2 (2-11) % Eos % (Auto) 0.0 (0-4) % Baso % (Auto) 0.3 (0-2) % Lymph # (Auto) 2.1 (1.2-4.9) X10*3/uL [place] # (Auto) 0.5 (0.1-1.2) X10*3/uL Eos # (Auto) 0.0 (0.0-0.4) X10*3/uL Baso # (Auto) 0.0 (0.0-0.2) X10*3/uL Abs Immat Gran (auto) 0.07 H (0.00-0.03) X10*3/uL Absolute Neuts (auto) 12.0 H (2.0-8.3) x10*3/uL Absolute Nucleated RBC 0.000 (0.0-0.012) X10*3/uL Nucleated RBC % (auto) 0.0 (0.0-0.2) /100WBC VBG pH 7.47 H (7.32-7.43) VBG pCO2 22 mmHg VBG pO2 44 mmHg VBG HCO3 16 L (22-26) mmol/L VBG O2 Saturation 75.0 % VBG Base Excess -4.9 mmol/L Sodium 140 (135-145) mmol/L Potassium 4.0 (3.3-5.1) mmol/L Chloride 108 (96-108) mmol/L Carbon Dioxide 17 L (22-29) mmol/L Anion Gap 19 (12-20) BUN 9 (9-16) mg/dL Creatinine 0.72 (0.5-1.4) mg/dL Estim Creat Clear Calc 116.0 Estimated GFR > 60 Random Glucose 351 H* (60-115) mg/dL Lactic Acid 5.9 H* (0.5-2.0) mmol/L Lactic Acid F/U @ 2Hr 4.4 H* (0.5-2.0) mmol/L Calcium 9.0 D (8.4-10.2) mg/dL Total Bilirubin 0.7 (0.0-1.0) mg/dL AST 30 (5-37) U/L ALT 7 (0-40) U/L Alkaline Phosphatase 71 (39-117) U/L Total Protein 6.8 (6.5-8.0) g/dL Albumin 4.2 (3.5-5.0) g/dL Lipase < 4 L (8-78) U/L Beta-Hydroxybutyrate 1.89 H (0.02-0.27) mmol/L 07/19/25 Range/Units 16:03 WBC (4.8-10.8) X10*3/uL RBC (4.60-5.80) X10*6/uL Hgb (14.0-18.0) g/dl Hct (42.0-52.0) % MCV (80.0-98.0) fL MCH (27.0-33.0) pg MCHC (31.0-36.0) g/dl RDW (11.0-16.0) % Plt Count (160-400) X10*3/uL MPV (9.4-12.4) fL Immature Gran % (Auto) (0.0-0.4) % Neut % (Auto) (45-73) % Lymph % (Auto) (20-40) % [place] % (Auto) (2-11) % Eos % (Auto) (0-4) % Baso % (Auto) (0-2) % Lymph # (Auto) (1.2-4.9) X10*3/uL [place] # (Auto) (0.1-1.2) X10*3/uL Eos # (Auto) (0.0-0.4) X10*3/uL Baso # (Auto) (0.0-0.2) X10*3/uL Abs Immat Gran (auto) (0.00-0.03) X10*3/uL Absolute Neuts (auto) (2.0-8.3) x10*3/uL Absolute Nucleated RBC (0.0-0.012) X10*3/uL Nucleated RBC % (auto) (0.0-0.2) /100WBC VBG pH (7.32-7.43) VBG pCO2 mmHg VBG pO2 mmHg VBG HCO3 (22-26) mmol/L VBG O2 Saturation % VBG Base Excess mmol/L Sodium 141 (135-145) mmol/L Potassium 3.4 (3.3-5.1) mmol/L Chloride 110 H (96-108) mmol/L Carbon Dioxide 19 L (22-29) mmol/L Anion Gap 15 (12-20) BUN 9 (9-16) mg/dL Creatinine 0.70 (0.5-1.4) mg/dL Estim Creat Clear Calc 119.3 Estimated GFR > 60 Random Glucose 309 H (60-115) mg/dL Lactic Acid (0.5-2.0) mmol/L Lactic Acid F/U @ 2Hr (0.5-2.0) mmol/L Calcium 9.1 (8.4-10.2) mg/dL Total Bilirubin (0.0-1.0) mg/dL AST (5-37) U/L ALT (0-40) U/L Alkaline Phosphatase (39-117) U/L Total Protein (6.5-8.0) g/dL Albumin (3.5-5.0) g/dL Lipase (8-78) U/L Beta-Hydroxybutyrate (0.02-0.27) mmol/L Critical Care Time Critical Care Time Critical Care Time: Yes Total Critical Care Time: 100 Attestation: ED CRITICAL CARE: AUTHORIZED AND PERFORMED BY: AIDEN MEDRANO MD TOTAL CRITICAL CARE TIME: APPROXIMATELY 100 MIN DUE TO A HIGH PROBABILITY OF CLINICALLY SIGNIFICANT, LIFE THREATENING DETERIORATION, THE PATIENT REQUIRED MY HIGHEST LEVEL OF PREPAREDNESS TO INTERVENE EMERGENTLY AND I PERSONALLY SPENT THIS CRITICAL CARE TIME DIRECTLY AND PERSONALLY MANAGING THE PATIENT. THIS CRITICAL CARE TIME INCLUDED OBTAINING A HISTORY; EXAMINING THE PATIENT; PULSE OXIMETRY; ORDERING AND REVIEW OF STUDIES; ARRANGING URGENT TREATMENT WITH DEVELOPMENT OF A MANAGEMENT PLAN; EVALUATION OF PATIENT'S RESPONSE TO TREATMENT; FREQUENT REASSESSMENT; AND, DISCUSSIONS WITH OTHER PROVIDERS. THIS CRITICAL CARE TIME WAS PERFORMED TO ASSESS AND MANAGE THE HIGH PROBABILITY OF IMMINENT, LIFE-THREATENING DETERIORATION THAT COULD RESULT IN MULTI-ORGAN FAILURE. IT WAS EXCLUSIVE OF SEPARATELY BILLABLE PROCEDURES AND TREATING OTHER PATIENTS AND TEACHING TIME. Discharge Plan Discharge Clinical Impression: Colitis, Acute hyperglycemia, Acidosis, lactic Patient Disposition: Admitted As Inpatient Interventions: Admission Worksheet (ED) Last Done: 07/19/25 20:43 Discharge Date/Time: 07/19/25 23:48
[2025-07-19 13:44] LABS: VBG HCO3 16 mmol/L (22-26); VBG O2 % Saturation 75.0 %
[2025-07-19 13:44] LABS: Venous Blood Gas Refer to POC result
[2025-07-19] MEDS: Lactated Ringers 1,000 ML 999 ML IV ×3 (13:44→17:20)
[2025-07-19 13:45] LABS: MANUAL DIFF FLAG NO
[2025-07-19 13:47] LABS: Hematocrit 39.3 % (42.0-52.0); Hemoglobin 13.4 g/dl (14.0-18.0); Imm Gran Abs Auto 0.07 X10*3/uL (0.00-0.03); Imm Gran Pct Auto 0.5 % (0.0-0.4); Lymphocytes Absolute Auto 2.1 X10*3/uL (1.2-4.9); Mean Corpuscular HGB Conc 34.1 g/dl (31.0-36.0); Mean Corpuscular Hemoglobin 28.7 pg (27.0-33.0); Mean Corpuscular Volume 84.2 fL (80.0-98.0); NRBC Abs Auto 0.000 X10*3/uL (0.0-0.012); NRBC Pct Auto 0.0 /100WBC (0.0-0.2); Platelet Count 302 X10*3/uL (160-400); Red Blood Count 4.67 X10*6/uL (4.60-5.80); White Blood Count 14.6 X10*3/uL (4.8-10.8)
[2025-07-19 14:09] LABS: Alanine Aminotransferase 7 U/L (0-40); Albumin Level 4.2 g/dL (3.5-5.0); Alkaline Phosphatase 71 U/L (39-117); Anion Gap 19 (12-20); Aspartate Amino Transferase 30 U/L (5-37); Blood Urea Nitrogen 9 mg/dL (9-16); Calcium 9.0 mg/dL (8.4-10.2); Carbon Dioxide 17 mmol/L (22-29); Chloride 108 mmol/L (96-108); Creatinine Clr Calc Pharmacy 116.0; Estimated Glomerular Filt Rate > 60; Lipase < 4 U/L (8-78); Potassium 4.0 mmol/L (3.3-5.1); Sodium 140 mmol/L (135-145); Total Protein 6.8 g/dL (6.5-8.0)
--- NOTE | 2025-07-19 14:13 | PC.NURSE ---
Discussed w/ provider elevate lactic, pt is not deemed septic at this point considering pts chief c/o and pmhx
[2025-07-19 15:43] LABS: Reflex Lactate? Lactic Acid Added
[2025-07-19] MEDS: iohexoL 350 MG/ML 100 ML INFUS..BTL IV (16:18)
[2025-07-19 16:36] LABS: Anion Gap 15 (12-20); Blood Urea Nitrogen 9 mg/dL (9-16); Calcium 9.1 mg/dL (8.4-10.2); Carbon Dioxide 19 mmol/L (22-29); Chloride 110 mmol/L (96-108); Creatinine Clr Calc Pharmacy 119.3; Estimated Glomerular Filt Rate > 60; Potassium 3.4 mmol/L (3.3-5.1); Sodium 141 mmol/L (135-145)
--- NOTE | 2025-07-19 16:45 | PC.NURSE ---
Pt returned from CT, per histology technician U/S guided line placed in ARIADNA by Dr. Awad infiltrated but the CT was able to be performed. Ariadna antecubital edematous and painful. IV removed and warm compress applied
[2025-07-19 16:49] LABS: ~Lactic Acid-LAB USE ONLY 4.4 mmol/L (0.5-2.0)
--- OUTSIDE RECORDS SUMMARY | 2025-07-19 16:51 | XMS_ITS | Clinical Summary ---
Author Organization [facility] Address [address] [place] [phone] Phone Care Team Providers Care Slitting Machine Feeder Name Role Phone Marley Rick MD Primary Care Provider [phone] Social History Tobacco Use Types Packs/Day Years [...] file Medical Devices Not on file Insurance [facility] [employer] [place] [address] [place] [address] [employer] [place] [address] [place] [address] [employer] [facility] [employer] Care Teams Slitting Machine Feeder Relationship Specialty Start Date End Date Marley Rick MD [address] [place] [id number] PCP - General Internal Medicine 02/07/25 Additional Source Comments The information contained in this document represents components of the legal health record. It is not the complete legal health record.[facility]
[2025-07-19 18:10] LABS: Reflex Lactate? 2 Y
--- NOTE | 2025-07-19 19:12 | PHA.MEDREC ---
Addendum entered by Michael Barbour formerly [facility] 07/19/25 20:11: Med rec reviewed Original Note: Pharmacy Consult ? Medication Reconciliation Pharmacy has completed the medication reconciliation. Spoke with pt and he confirmed his medications. Pt confirmed his Lantus insulin 8 units in the morning and 10 units at bedtime and his insulin Lispro per a sliding scale QIDHS.
[2025-07-19 19:21] LABS: ~Lactic Acid-LAB USE ONLY 2.0 mmol/L (0.5-2.0)
[2025-07-19] MEDS: Lactated Ringers 1,000 ML 150 ML IVCONT (19:37)
--- NOTE | 2025-07-19 20:39 | HO.NURTONUR ---
Addendum entered by Flakita Davis RN 07/19/25 23:00: New orders received for heparin gtt. Attempting to obtain secondary line at this time. Several attempts have been made, also call pending to ICU for someone to do U/S iv. Previous U/S line in MIGUEL infiltrated after CT, see note. Pts nausea has been waxing and waning and provider was notified. Via tigertext provider said try po later. Original Note: Pt arrived w/ c/o n&v x 2 days. Pt has pmhx of gastroparesis and was initially suspected this was an episode. Initial impression pt was diaphoretic, actively vomiting, and noticably in pain. Lactate elevated, repeated and remained elevated @ 4.4 CT shows poss ichemic colitis. Pt is medicated w/ prn dilaudid and zofran. Pt is currently NPO and receiving LR @ 150ml/hr.
--- NOTE | 2025-07-19 21:14 | HO.PM.IMCN ---
History of Present Illness Data of Consult Service Date: 07/19/25 Requesting physician: Veronica Carrera Primary Care Provider: Unknown Physician HPI Reason for consult: medical management Patient is a 64-year-old male with a past medical history significant for hypertension, gastroparesis, class 1 obesity, CAD, paroxysmal AFib, insulin-dependent diabetes and diabetic neuropathy, who presented to the ED due to nausea and vomiting for the past 2 days with epigastric pain. The patient was found to have ischemic colitis and admitted by the surgical team. Hospitalist consultation placed for med management. The patient reports chest discomfort and nausea, no SOB, cough, sore throat, palpitations, or urinary sx. Review of Systems Review of Systems: Yes all other systems are reviewed and are negative [facility] Medical History Hypertensive urgency Abdominal pain PVD (peripheral vascular disease) Gastroparesis DKA (diabetic ketoacidosis) Obesity (BMI 30-39.9) PAD (peripheral artery disease) Afib Amputation of left great toe Lower limb amputation, great toe CAD (coronary artery disease) DMII (diabetes mellitus, type 2) Orthopedic hardware present Hyperglycemia Cellulitis Asthma Diabetes Hypertension FHx: bilateral hip replacements Family History Father Cancer of neck Mother Uterus cancer Other No family history of coronary artery disease Surgical History History of amputation of toe (07/29/22) History of amputation of great toe (01/07/22) History of back surgery History of neck surgery History of ankle surgery H/O bilateral hip replacements S/P quadruple vessel bypass Social History Household Members: Spouse Household Members Other:: 3 Housing: Apartment Are you a primary certified social workers in health care to a significant other at home: No Do you presently have visiting nurse or other home services: No Alcohol intake: never Comment: refused bed or chair alarm Patient Tobacco Use Status: Former Tobacco user Tobacco use type: Cigarette Smoked in Last 30 Days: No e-Cigarette/Vaping Use: Never Used Second Hand Smoke Exposure: No Use of substances other than those prescribed or required for medical reasons: No Substance Use Type: Marijuana Advance Directives: Yes Advance Directives Information Provided: Yes Advance Directives on File: No Advance Directives Date on File: 01/04/22 service: Yes Current occupational status: disabled Narrative: no smoking or etoh Meds Allergies Allergy/AdvReac Type Severity Reaction Status Date / Time morphine AdvReac Intermediate Hallucinati Verified 07/19/25 13:23 ons Active Medications: Current Medications Acetaminophen (Acetaminophen 325 Mg Tablet) 650 mg PO Q6H PRN PRN Reason: Pain, Mild 1-3,fever,headache Dextrose (Dextrose 50 % 25 Gm/50 Ml Syringe) 25 gm IVPUSH Q15M PRN; Protocol PRN Reason: per Hypoglycemia Standing Ord. Glucose (Glucose Gel 15 Gm Gel..Gram.) 15 gm PO Q15M PRN; Protocol PRN Reason: per Hypoglycemia Standing Ord. Hydromorphone HCl (Hydromorphone Hcl 1 Mg/Ml Syringe) 1 mg IVPUSH Q4H PRN; Protocol PRN Reason: Pain, Severe (Pain Scale 7-10) Erythromycin Lactobionate 250 (mg/ Sodium Chloride) 100 mls @ 100 mls/hr IV ONCE WILLIAM Last Infusion: 07/19/25 16:02 Dose: Infused Lactated Ringer's (Lr) 1,000 mls @ 150 mls/hr IVCONT .Q6H40M WILLIAM Last Admin: 07/19/25 19:37 Dose: 150 mls/hr Insulin Human Lispro (Insulin Lispro 100 Unit/Ml 3 Ml Vial) 0 unit SUBCUT Q6H [facility]; Protocol Melatonin (Melatonin 3 Mg Tablet) 6 mg PO BEDTIME PRN PRN Reason: Insomnia Ondansetron HCl (Ondansetron Hcl 4 Mg/2 Ml Vial) 4 mg IVPUSH Q6H PRN PRN Reason: Nausea and Vomiting Sodium Chloride (0.9 % Sodium Chloride Flush 3 Ml Syringe) 3 ml IVFLUSH QSHIFT [facility] Sodium Chloride (0.9 % Sodium Chloride Flush 3 Ml Syringe) 3 ml IVFLUSH QSHIFT [facility] Home Medications ?Medication ?Instructions ?Recorded ?Confirmed ?Last Taken ?Type ezetimibe 10 mg tablet 10 mg PO BEDTIME 01/03/22 07/19/25 07/17/25 History gabapentin 300 mg capsule 300 mg PO TID 01/03/22 07/19/2525 History insulin glargine 100 unit/mL 10 unit subcut BEDTIME 01/03/22 07/19/25 07/17/25 History subcutaneous solution (Lantus U-100 Insulin) isosorbide mononitrate 30 mg 30 mg PO DAILY 01/03/22 07/19/25 07/17/25 History tablet,extended release 24 hr loratadine 10 mg tablet 10 mg PO DAILY 01/03/22 07/19/25 07/17/25 History losartan 25 mg tablet 25 mg PO DAILY 01/03/22 07/19/25 07/17/25 History meclizine 25 mg tablet 25 mg PO TID PRN Dizziness Or 01/03/22 07/19/25 05/23/25 History Vertigo rosuvastatin 40 mg tablet 40 mg PO BEDTIME 01/03/22 07/19/25 07/17/25 History aspirin 81 mg tablet,delayed 81 mg PO DAILY 08/04/22 07/19/25 07/17/25 History release furosemide 20 mg tablet 20 mg PO DAILY 11/13/22 07/19/25 07/17/25 History metoprolol succinate 25 mg 25 mg PO DAILY 10/14/24 07/19/25 07/17/25 History tablet,extended release 24 hr insulin lispro 100 unit/mL See Protocol subcut QIDACHS 12/16/24 07/19/25 07/17/25 History subcutaneous solution rivaroxaban 20 mg tablet (Xarelto) 20 mg PO DAILY@1700 12/16/24 07/19/25 07/17/25 History insulin glargine 100 unit/mL 8 unit subcut DAILY 03/23/25 07/19/25 07/17/25 History subcutaneous solution (Lantus U-100 Insulin) glucagon 1 mg/0.2 mL subcutaneous 1 mg subcut ONCE PRN Hypoglycemia 05/26/25 07/19/25 Unknown History auto-injector (Chelsie Herreraen 2-Pack) lidocaine 4 % topical patch 1 patch transdermal DAILY PRN Pain 05/26/25 07/19/25 05/23/25 History (Lidocaine Pain Relief) pantoprazole 40 mg tablet,delayed 40 mg PO BID@0630,1630 05/26/25 07/19/25 07/17/25 History release ondansetron 4 mg disintegrating 4 mg PO Q8H PRN Nausea And Vomiting 07/19/25 07/19/25 Unknown History tablet Physical Exam Vital Signs and Narrative: Vital Signs: Last Vital Signs Temp 98.4 F 07/19/25 18:52 Pulse 89 07/19/25 20:23 Resp 17 07/19/25 20:23 BP 135/82 07/19/25 20:23 Pulse Ox 94 07/19/25 20:23 O2 Del Method Room Air 07/19/25 20:23 BMI result Body Mass Index 31.9 General: AOx3, no acute distress Resp: CTA bilaterally CVS: S1, S2, RRR GI: +BS, tender upper abd, no distention Skin: Warm, dry Neuro: Cranial nerves II-XII grossly intact bilaterally. Motor grossly intact bilaterally Extremities: No pitting edema Psych: Appropriate affect Results Labs 07/19/25 13:31 07/19/25 16:03 Labs: Laboratory Results - last 24 hr 07/19/25 07/19/25 07/19/25 13:31 13:40 15:55 MCV 84.2 MCH 28.7 MCHC 34.1 RDW 13.5 Plt Count 302 MPV 10.1 Immature Gran % (Auto) 0.5 H Neut % (Auto) 81.8 H Lymph % (Auto) 14.2 L [place] % (Auto) 3.2 Eos % (Auto) 0.0 Baso % (Auto) 0.3 Lymph # (Auto) 2.1 [place] # (Auto) 0.5 Eos # (Auto) 0.0 Baso # (Auto) 0.0 Abs Immat Gran (auto) 0.07 H Absolute Neuts (auto) 12.0 H Absolute Nucleated RBC 0.000 Nucleated RBC % (auto) 0.0 VBG pH 7.47 H VBG pCO2 22 VBG pO2 44 VBG HCO3 16 L VBG O2 Saturation 75.0 VBG Base Excess -4.9 Anion Gap 19 Estim Creat Clear Calc 116.0 Estimated GFR > 60 Random Glucose 351 H* Lactic Acid 5.9 H* Lactic Acid F/U @ 2Hr 4.4 H* Lactic Acid F/U @ 4Hr Calcium 9.0 D Total Bilirubin 0.7 AST 30 ALT 7 Alkaline Phosphatase 71 Total Protein 6.8 Albumin 4.2 Lipase < 4 L Beta-Hydroxybutyrate 1.89 H 07/19/25 07/19/25 16:03 19:04 MCV MCH MCHC RDW Plt Count MPV Immature Gran % (Auto) Neut % (Auto) Lymph % (Auto) [place] % (Auto) Eos % (Auto) Baso % (Auto) Lymph # (Auto) [place] # (Auto) Eos # (Auto) Baso # (Auto) Abs Immat Gran (auto) Absolute Neuts (auto) Absolute Nucleated RBC Nucleated RBC % (auto) VBG pH VBG pCO2 VBG pO2 VBG HCO3 VBG O2 Saturation VBG Base Excess Anion Gap 15 Estim Creat Clear Calc 119.3 Estimated GFR > 60 Random Glucose 309 H Lactic Acid Lactic Acid F/U @ 2Hr Lactic Acid F/U @ 4Hr 2.0 Calcium 9.1 Total Bilirubin AST ALT Alkaline Phosphatase Total Protein Albumin Lipase Beta-Hydroxybutyrate Imaging Radiologist's Impressions: Impressions Abdomen/Pelvis CTA 07/19/25 16:11 IMPRESSION: 1. There is hypoenhancement of distal right colic branches of the SMA. There may be involvement of distal middle colic branches as well. There is there is thickening and inflammation of the ascending colon extending to the mid transverse colon in keeping with ischemic colitis. There is no SMA thrombus. 2. Severe calcific atheromatous disease of the arterial structures, without aneurysm detected. 3. 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 4. Moderate stenosis of the right renal artery ostium. Mild stenosis of the left renal artery ostium. 5. Probable moderate stenosis of the inferior mesenteric artery ostium although it otherwise enhances normally. 6. Numerous ancillary findings as discussed in the body of the report. Electronically signed by: Nicko Smith MD 07/19/2025 04:57 PM EDT Assessment and Plan (1) Ischemic colitis: Status: Acute (2) Acute lactic acidosis: Status: Acute (3) Class 3 obesity: Status: Acute Plan Patient is a 64-year-old male admitted by general surgery for ischemic colitis on CT, hospitalist consultation placed for medical management Ischemic colitis on CT - plan per surgery - NPO - IV fluids - prophylactic antibiotics: Ceftriaxone and Flagyl - heparin drip - GI consult - cardiology consult needed for preop evaluation of surgery indicated Acute lactic acidosis, improved with IVF, likely dehydration HTN - metoprolol, hold losartan CAD - statin, aspirin, Imdur, ezetimibe Paroxysmal AFib - metoprolol - hold Xarelto, on heparin drip Insulin-dependent diabetes - POC q.6h - sliding scale insulin q.6h - hold lantus Diabetic neuropathy - gabapentin Class 3 obesity - weight loss encouraged Full code Thank you for allowing me to participate in the pt's care. Will follow for now. Please contact the medical team if any questions or concerns.
[2025-07-19 21:20] LABS: Glucose, Whole Blood 255 mg/dL (60-115)
--- NOTE | 2025-07-19 21:45 | PC.NURSE ---
buddy barnes hospitalist regarding pts po meds for the evening. Pt continues to have intermittent nausea and may not be able to tolerate and try po meds later tonight.
[2025-07-19] MEDS: metroNIDAZOLE/NS 500 MG/100 ML PIGGYBACK 100 MG IV (21:50)
[2025-07-19 22:17] LABS: Hematocrit 36.8 % (42.0-52.0); Hemoglobin 12.7 g/dl (14.0-18.0); Mean Corpuscular HGB Conc 34.5 g/dl (31.0-36.0); Mean Corpuscular Hemoglobin 29.5 pg (27.0-33.0); Mean Corpuscular Volume 85.6 fL (80.0-98.0); NRBC Abs Auto 0.000 X10*3/uL (0.0-0.012); NRBC Pct Auto 0.0 /100WBC (0.0-0.2); Platelet Count 263 X10*3/uL (160-400); Red Blood Count 4.30 X10*6/uL (4.60-5.80); White Blood Count 12.9 X10*3/uL (4.8-10.8)
[2025-07-19 22:23] LABS: INTERNATIONAL NORM RATIO 1.1 (0.9-1.1); Prothrombin Time 12.2 SEC (10.9-12.4)
[2025-07-19 22:25] LABS: PTT Heparin Drip 30.3 SEC (53-77.9)
--- NOTE | 2025-07-19 22:48 | PC.NURSE ---
Unable to obtain secondary iv despite mult efforts. Charge nurse aware, will attempt to get someone to perform u/s iv
[2025-07-19] MEDS: Heparin Sodium,Porcine/1/2NS 25,000 UNIT/250 ML IV.SOLN 15.88 UNIT IVCONT (23:09)
--- NOTE | 2025-07-19 23:14 | PC.NURSE ---
this RN assumed care of patient. 22g Iv able to be placed in patients let hand. IV heparin started with previous shift RN. patient to be brought to assigned room on floor.
[2025-07-20 00:05] LABS: Glucose, Whole Blood 223 mg/dL (60-115)
--- NOTE | 2025-07-20 02:21 | PM.HPGS ---
History of Present Illness History of Present Illness Date of Service: 07/20/25 Chief complaint: abdo pain Narrative: Patric Gomez is a 64 year old male with multiple med issues - DM/CAD s/p CABG X4 who has gastroparesis and colitis in past and now coming in for sig pain in abdomen coming from the upper abdomen/epigastric area. Pain seemingly out of proportion to exam so ischemic bowel CT scan protocol done and finding showing sig vascular calcifications especially at the distal SMA leading to ischemic colitis of ascending colon. pt denies fever chill or blood in his stool. No chest cardiac or resp sx. In ER was resuscitated as pt was vomiting for 3 days - lactic acid high to normal- with ivf. He has known admissions for gastroparesis and flet like this was the issue again. [facility] Past Medical History Medical History Hypertensive urgency Abdominal pain PVD (peripheral vascular disease) Gastroparesis DKA (diabetic ketoacidosis) Obesity (BMI 30-39.9) PAD (peripheral artery disease) Afib Amputation of left great toe Lower limb amputation, great toe CAD (coronary artery disease) DMII (diabetes mellitus, type 2) Orthopedic hardware present Hyperglycemia Cellulitis Asthma Diabetes Hypertension FHx: bilateral hip replacements Family History Family History Father Cancer of neck Mother Uterus cancer Other No family history of coronary artery disease Surgical History Surgical History History of amputation of toe (07/29/22) History of amputation of great toe (01/07/22) History of back surgery History of neck surgery History of ankle surgery H/O bilateral hip replacements S/P quadruple vessel bypass Social History Social History Household Members: Spouse Household Members Other:: 3 Housing: Apartment Are you a primary care trainer to a significant other at home: No Do you presently have visiting nurse or other home services: No Alcohol intake: never Comment: refused bed or chair alarm Patient Tobacco Use Status: Former Tobacco user Tobacco use type: Cigarette Smoked in Last 30 Days: No e-Cigarette/Vaping Use: Never Used Second Hand Smoke Exposure: No Use of substances other than those prescribed or required for medical reasons: No Substance Use Type: Marijuana Currently Displaying Signs/Symptoms of Drug Intoxication Withdrawal: No Have you been hit, kicked, punched, or otherwise hurt by someone within the past year? If so, by whom?: No Do you feel safe in your current relationship?: Yes Is there a partner from a previous relationship who is making you feel unsafe now?: No Are you made to feel afraid or neglected: No Advance Directives: Yes Advance Directives Information Provided: Yes Advance Directives on File: No Advance Directives Date on File: 07/20/25 Do you have a plan to hurt others: No Plan Nutrition Risks: No Nutritional Risk Poor oral hygiene: No service: Yes Current occupational status: disabled Meds Allergies Allergy/AdvReac Type Severity Reaction Status Date / Time morphine AdvReac Intermediate Hallucinati Verified 07/19/25 13:23 ons Active Medications: Current Medications Acetaminophen (Acetaminophen 325 Mg Tablet) 650 mg PO Q6H PRN PRN Reason: Pain, Mild 1-3,fever,headache Aspirin (Aspirin Enteric Coated 81 Mg Tablet.Dr) 81 mg PO DAILY WILLIAM Atorvastatin Calcium (Atorvastatin Calcium 80 Mg Tablet) 80 mg PO BEDTIME WILLIAM Ceftriaxone Sodium (Ceftriaxone Sodium 1 Gm Vial) 1 gm IVPUSH Q24H WILLIAM Last Admin: 07/19/25 21:49 Dose: 1 gm Dextrose (Dextrose 50 % 25 Gm/50 Ml Syringe) 25 gm IVPUSH Q15M PRN; Protocol PRN Reason: per Hypoglycemia Standing Ord. Ezetimibe (Ezetimibe 10 Mg Tablet) 10 mg PO BEDTIME WILLIAM Gabapentin (Gabapentin 300 Mg Capsule) 300 mg PO TID WILLIAM Glucose (Glucose Gel 15 Gm Gel..Gram.) 15 gm PO Q15M PRN; Protocol PRN Reason: per Hypoglycemia Standing Ord. Heparin Sodium (Porcine) (Heparin Sodium,Porcine 5,000 Unit/Ml Vial) 4,500 unit 40 unit/kg (4500 unit) IVPUSH PROTOCOL BOLUS PRN; Protocol PRN Reason: 40 unit/kg - Heparin Protocol Heparin Sodium (Porcine) (Heparin Sodium,Porcine 5,000 Unit/Ml Vial) 9,100 unit 80 unit/kg (9100 unit) IVPUSH PROTOCOL BOLUS PRN; Protocol PRN Reason: 80 unit/kg - Heparin Protocol Hydromorphone HCl (Hydromorphone Hcl 1 Mg/Ml Syringe) 1 mg IVPUSH Q4H PRN; Protocol PRN Reason: Pain, Severe (Pain Scale 7-10) Last Admin: 07/20/25 01:19 Dose: 1 mg Erythromycin Lactobionate 250 (mg/ Sodium Chloride) 100 mls @ 100 mls/hr IV ONCE [facility] Last Infusion: 07/19/25 16:02 Dose: Infused Lactated Ringer's (Lr) 1,000 mls @ 150 mls/hr IVCONT .Q6H40M [facility] Last Admin: 07/19/25 19:37 Dose: 150 mls/hr Metronidazole (Flagyl) 500 mg in 100 mls @ 100 mls/hr IV Q8H [facility] Last Infusion: 07/19/25 23:00 Dose: Infused Heparin Sodium/Sodium Chloride (Heparin Sodium,Porcine/1/2ns) 25,000 unit in 250 mls @ 0 mls/hr IVCONT .Q0M [facility]; Protocol Last Admin: 07/19/25 23:09 Dose: 14 units/kg/hr, 15.88 mls/hr Insulin Human Lispro (Insulin Lispro 100 Unit/Ml 3 Ml Vial) 0 unit SUBCUT Q6H [facility]; Protocol Last Admin: 07/20/25 00:55 Dose: Not Given Isosorbide Mononitrate (Isosorbide Mononitrate 30 Mg Tab.Er.24h) 30 mg PO DAILY [facility]; Protocol Loratadine (Loratadine 10 Mg Tablet) 10 mg PO DAILY [facility] Melatonin (Melatonin 3 Mg Tablet) 6 mg PO BEDTIME PRN PRN Reason: Insomnia Metoclopramide HCl (Metoclopramide Hcl 10 Mg Tablet) 10 mg PO Q8H PRN PRN Reason: Nausea and Vomiting Metoprolol Succinate (Metoprolol Succinate Er 25 Mg Tab.Er.24h) 25 mg PO DAILY [facility]; Protocol Omeprazole (Omeprazole 20 Mg Capsule.Dr) 20 mg PO BID@0630,1630 [facility] Ondansetron HCl (Ondansetron Hcl 4 Mg/2 Ml Vial) 4 mg IVPUSH Q6H PRN PRN Reason: Nausea and Vomiting Last Admin: 07/19/25 21:14 Dose: 4 mg Pantoprazole Sodium (Pantoprazole Sodium 40 Mg/10 Ml Vial) 40 mg IVPUSH DAILY@0630 [facility] Sodium Chloride (0.9 % Sodium Chloride Flush 3 Ml Syringe) 3 ml IVFLUSH [facility] Last Admin: 07/20/25 00:07 Dose: Not Given Sodium Chloride (0.9 % Sodium Chloride Flush 3 Ml Syringe) 3 ml IVFLUSH [facility] Last Admin: 07/20/25 00:08 Dose: Not Given Venlafaxine HCl (Venlafaxine Hcl 25 Mg Tablet) 50 mg PO BID [facility] Last Admin: 07/20/25 00:05 Dose: Not Given Home Medications ?Medication ?Instructions ?Recorded ?Confirmed ?Last Taken ?Type ezetimibe 10 mg tablet 10 mg PO BEDTIME 01/03/22 07/19/25 07/17/25 History gabapentin 300 mg capsule 300 mg PO TID 01/03/22 07/19/25 07/17/25 History insulin glargine 100 unit/mL 10 unit subcut BEDTIME 01/03/22 07/19/25 07/17/25 History subcutaneous solution (Lantus U-100 Insulin) isosorbide mononitrate 30 mg 30 mg PO DAILY 01/03/22 07/19/25 07/17/25 History tablet,extended release 24 hr loratadine 10 mg tablet 10 mg PO DAILY 01/03/22 07/19/25 07/17/25 History losartan 25 mg tablet 25 mg PO DAILY 01/03/22 07/19/25 07/17/25 History meclizine 25 mg tablet 25 mg PO TID PRN Dizziness Or 01/03/22 07/19/25 05/23/25 History Vertigo rosuvastatin 40 mg tablet 40 mg PO BEDTIME 01/03/22 07/19/25 07/17/25 History aspirin 81 mg tablet,delayed 81 mg PO DAILY 08/04/22 07/19/25 07/17/25 History release furosemide 20 mg tablet 20 mg PO DAILY 11/13/22 07/19/25 07/17/25 History metoprolol succinate 25 mg 25 mg PO DAILY 10/14/24 07/19/25 07/17/25 History tablet,extended release 24 hr insulin lispro 100 unit/mL See Protocol subcut QIDACHS 12/16/24 07/19/25 07/17/25 History subcutaneous solution rivaroxaban 20 mg tablet (Xarelto) 20 mg PO DAILY@1700 02/20/25 09/23/25 09/21/25 History insulin glargine 100 unit/mL 8 unit subcut DAILY 03/23/25 07/19/25 07/17/25 History subcutaneous solution (Lantus U-100 Insulin) glucagon 1 mg/0.2 mL subcutaneous 1 mg subcut ONCE PRN Hypoglycemia 05/26/25 07/19/25 Unknown History auto-injector (Gvoke HypoPen 2-Pack) lidocaine 4 % topical patch 1 patch transdermal DAILY PRN Pain 05/26/25 07/19/25 05/23/25 History (Lidocaine Pain Relief) pantoprazole 40 mg tablet,delayed 40 mg PO BID@0630,1630 05/26/25 07/19/25 07/17/25 History release ondansetron 4 mg disintegrating 4 mg PO Q8H PRN Nausea And Vomiting 07/19/25 07/19/25 Unknown History tablet Physical Exam Vital Signs: Vital Signs: Last Vital Signs Temp 98.9 F 07/19/25 23:48 Pulse 90 07/19/25 23:48 Resp 18 07/19/25 23:48 BP 146/74 H 07/19/25 23:48 Pulse Ox 95 07/19/25 23:48 O2 Del Method Room Air 07/19/25 23:48 BMI result Body Mass Index 38.0 Const: General: cooperative, healthy appearing and acute distress mild Eyes: Other: nonicteric Resp: Effort & Inspection: normal respiratory effort Auscultation: clear to auscultation bilaterally Cardio: Rate: regular rate Rhythm: regular rhythm GI: Other: abdomen is obese soft - tender in right upper quadrant>epigastric area>right lower quadrant some gurading no rebound or peritoneal signs. active bowel sounds Results Results Labs: Short CBC 07/19/25 07/19/25 Range/Units 13:31 22:12 WBC 14.6 H 12.9 H (4.8-10.8) X10*3/uL Hgb 13.4 L 12.7 L (14.0-18.0) g/dl Hct 39.3 L 36.8 L (42.0-52.0) % Plt Count 302 263 (160-400) X10*3/uL BMP 07/19/25 07/19/25 13:31 16:03 Sodium 140 141 Potassium 4.0 3.4 Chloride 108 110 H Carbon Dioxide 17 L 19 L BUN 9 9 Creatinine 0.72 0.70 Calcium 9.0 D 9.1 Liver Function 07/19/25 Range/Units 13:31 Total Bilirubin 0.7 (0.0-1.0) mg/dL AST 30 (5-37) U/L ALT 7 (0-40) U/L Alkaline Phosphatase 71 (39-117) U/L Albumin 4.2 (3.5-5.0) g/dL Abdomen CT scan report/results: report reviewed and image reviewed CT scan - pelvis: report reviewed and image reviewed Additional studies: Signed Patient: Patric Gomez MR#: [id number] : 1960 Acct:[id number] Age/Sex: 64 / M ADM Date: 07/19/25 Loc: .ED Attending Dr: Ordering Physician: Aiden Obregon MD Date of Service: 07/19/25 Procedure(s): CT angio abdomen pelvis Accession Number(s): [id number] cc: Aiden Obregon MD; Physician,Unknown ~ Report Number: [id number]: Total DLP = 875.00 mGy-cm Reason for Exam: concern for mesenteric ischemia, pain EXAMINATION: CT ANGIOGRAM ABDOMEN AND PELVIS CLINICAL INFORMATION: Abdominal pain, concern for mesenteric ischemia. COMPARISON: No prior CT angiogram. CT abdomen and pelvis 05/29/2025. TECHNIQUE: Multiple axial images were obtained through the abdomen and pelvis following the administration of 80 mL of Omnipaque 350 intravenous contrast. Images were reviewed on a dedicated 3-D workstation. This CT examination was performed using dose optimization techniques as appropriate, variously including the following: *Automated exposure control *Adjustment of mA and/or kV according to patient size (this includes techniques or standardized protocols for targeted exams where dose is matched to indication/reason for exam; i.e. extremities or head) *Use of iterative reconstruction technique FINDINGS: VASCULAR: There is extensive calcific atheromatous disease of the arterial structures. There is no aortic aneurysm or iliac aneurysm. There is no high-grade aortic or iliac stenosis. There is a mild to moderate stenosis at the origin of the celiac artery, which enhances normally as does its branches. The SMA demonstrates a mild stenosis at the origin due to calcific plaque, however there is normal enhancement of the vessel and the majority of its branches, although the right colic branches are hypoenhancing, and there is thickening and inflammation of the ascending colon extending to the mid transverse colon. The renal arteries demonstrate moderate stenosis on the right and mild stenosis on the left. No tandem stenoses. The FRANKIE enhances normally, as does its branches. The hypogastric arteries are patent without high-grade stenoses. They are heavily calcified. The common femoral arteries are heavily calcified with mild stenoses bilaterally. LUNG BASES: There is mild subpleural scarring in both lung bases. There is mild cylindrical bronchiectasis of the small airways. There are no effusions. There are no consolidations. The heart size is normal. There are heavy coronary calcifications noted. LIVER: The liver is normal in size and contour. No liver mass is identified. The hepatic and portal veins are patent. GALLBLADDER / BILE DUCTS: The gallbladder is surgically absent. There is no intra or extrahepatic biliary ductal dilatation. SPLEEN: The spleen is normal in size. No focal splenic lesion is identified. PANCREAS: The pancreas is unremarkable in appearance. ADRENAL GLANDS: Within normal limits. KIDNEYS/RETROPERITONEUM: No renal calculi are identified. There is no hydronephrosis. There are subcentimeter hypodensities in the kidneys which likely represent cysts, but are too small to accurately characterize. LYMPH NODES: No abdominal or pelvic lymphadenopathy. VASCULATURE: As above. MESENTERY/PERITONEUM: No ascites. No masses. There is no free intraperitoneal air. STOMACH: There is a small type I hiatus hernia. The stomach is otherwise collapsed. SMALL BOWEL: The small bowel is normal in caliber and course. No wall thickening or inflammation. COLON: Inflammation of the ascending colon extending to the mid transverse colon. This appears to be ischemic given findings in the SMA right colic branches. The remainder of the colon is normal in course, caliber, and appearance. No rectal abnormality. APPENDIX: Normal. URINARY BLADDER/PELVIC ORGANS: The urinary bladder is partially obscured by streak artifact from bilateral total hip arthroplasties. It appears normal otherwise. The prostate is obscured. BONES / SOFT TISSUES: The patient is status post posterior fusion of L3-S1 with pedicle screws and spinal stabilization rods. There is soft tissue infiltration of the anterior abdominal wall fat below the umbilicus, contains calcifications. This may represent fat necrosis secondary to subcutaneous injections. CT/CT angio abdomen pelvis IMPRESSION: 1. There is hypoenhancement of distal right colic branches of the SMA. There may be involvement of distal middle colic branches as well. There is there is thickening and inflammation of the ascending colon extending to the mid transverse colon in keeping with ischemic colitis. There is no SMA thrombus. 2. Severe calcific atheromatous disease of the arterial structures, without aneurysm detected. 3. 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 4. Moderate stenosis of the right renal artery ostium. Mild stenosis of the left renal artery ostium. 5. Probable moderate stenosis of the inferior mesenteric artery ostium although it otherwise enhances normally. 6. Numerous ancillary findings as discussed in the body of the report. Electronically signed by: Nicko Smith MD 07/19/2025 04:57 PM EDT RP Dictated By: Nicko Smith MD Signed By: <Electronically signed by Nicko Smith MD in OV> 07/19/25 1657 DD/ 1611 TD/TT: 07/19/25 1626 Limnology Teacher: Assessment and Plan (1) Ischemic colitis: Status: Acute Plan Pt with multiple med issues - afib on xarelto and with calcifications along abdominal takeoffs of the aorta - some reconstition of the vessels but sma distal to right colic showing worse changes -? some ischemic bowel but no perf, pt not passing blood per rectum etc. Discussion had with ER and Med team - will admit, npo, ivf, iv antibx, anticaogulate with heparin - we can turn it on and off - GI consult. No need for vascular at this time - will see how pt responfds clinically and with labs and vitals. He agrees. med team for help with diabetes and heparin drip and other issues Quality Stroke Does the patient have a stroke diagnosis?: No VTE Prior VTE?: No VTE Risk Level:: Medical - moderate - high VTE Device Contraindication: N/A - Device Ordered VTE Drug Contraindication: N/A - Med Ordered Procedures Date of Service Date of Service: 07/20/25
[2025-07-20] MEDS: Lactated Ringers 1,000 ML 150 ML IVCONT ×3 (02:25→18:21)
[2025-07-20 03:10] VITALS: BP 146/59; PULSE 86; RESP 18; TEMP 37.2; O2SAT 95
[2025-07-20 05:34] LABS: MANUAL DIFF FLAG NO
[2025-07-20 05:37] LABS: Hematocrit 35.1 % (42.0-52.0); Hemoglobin 12.2 g/dl (14.0-18.0); Imm Gran Abs Auto 0.06 X10*3/uL (0.00-0.03); Imm Gran Pct Auto 0.5 % (0.0-0.4); Lymphocytes Absolute Auto 3.3 X10*3/uL (1.2-4.9); Mean Corpuscular HGB Conc 34.8 g/dl (31.0-36.0); Mean Corpuscular Hemoglobin 29.7 pg (27.0-33.0); Mean Corpuscular Volume 85.4 fL (80.0-98.0); NRBC Abs Auto 0.000 X10*3/uL (0.0-0.012); NRBC Pct Auto 0.0 /100WBC (0.0-0.2); Platelet Count 246 X10*3/uL (160-400); Red Blood Count 4.11 X10*6/uL (4.60-5.80); White Blood Count 13.0 X10*3/uL (4.8-10.8)
[2025-07-20 05:50] LABS: Anion Gap 13 (12-20); Blood Urea Nitrogen 9 mg/dL (9-16); Calcium 8.9 mg/dL (8.4-10.2); Carbon Dioxide 20 mmol/L (22-29); Chloride 113 mmol/L (96-108); Creatinine Clr Calc Pharmacy 149.5; Estimated Glomerular Filt Rate > 60; Potassium 3.9 mmol/L (3.3-5.1); Sodium 142 mmol/L (135-145)
[2025-07-20 05:57] LABS: INTERNATIONAL NORM RATIO 1.1 (0.9-1.1); Prothrombin Time 12.1 SEC (10.9-12.4)
[2025-07-20 06:01] LABS: PTT Heparin Drip 116.8 SEC (53-77.9)
[2025-07-20] MEDS: metroNIDAZOLE/NS 500 MG/100 ML PIGGYBACK 100 MG IV ×3 (06:10→21:49)
[2025-07-20 06:18] LABS: Glucose, Whole Blood 185 mg/dL (60-115)
--- NOTE | 2025-07-20 07:46 | P.PNGS_ITS ---
Subjective Subjective Date of Service: 07/20/25 <Clive Seo PA-C - Last Filed: 07/20/25 07:58> 07/20/25 <Derrick Perkins MD - Last Filed: 07/20/25 08:03> Interval history: feels like pain is worse in the abdomen today, 08/05, located in the middle of his abdomen. Endorses nausea, last episode of vomiting was yesterday. denies chest pain, shortness of breath. last bowel movement was yesterday, denies bright red blood, states the stool was dark <Clive Seo PA-C - Last Filed: 07/20/25 07:58> Physical Exam 2 Vital Signs: Vital Signs: Last Vital Signs Temp 98.9 F 07/20/25 03:10 Pulse 86 07/20/25 03:10 Resp 18 07/20/25 03:10 BP 146/59 H 07/20/25 03:10 Pulse Ox 95 07/20/25 03:10 O2 Del Method Room Air 07/20/25 03:10 BMI result Body Mass Index 38.0 <Clive Seo PA-C - Last Filed: 07/20/25 07:58> Const: General: no acute distress; No comfortable <FELICIA Blackman Last Filed: 07/20/25 07:58> Orientation/consciousness: patient oriented x3 <FELICIA Blackman Last Filed: 07/20/25 07:58> Resp: Effort & Inspection: normal respiratory effort and able to speak in complete sentences <Clive Seo PA-C - Last Filed: 07/20/25 07:58> GI: Inspection: No distended <FELICIA Blackman Last Filed: 07/20/25 07:58> Palpation (GI): Soft to palpation, Tenderness to palpation present (GI) (throughout, primarily epigastric and periumbilical) and Guarding due to palpation present (GI) (voluntary) <FELICIA Blackman Last Filed: 07/20/25 07:58> Neuro: General: patient oriented x3 <FELICIA Blackman Last Filed: 07/20/25 07:58> Objective Data Active Medications Acetaminophen (Acetaminophen 325 Mg Tablet) 650 mg PO Q6H PRN PRN Reason: Pain, Mild 1-3,fever,headache Aspirin (Aspirin Enteric Coated 81 Mg Tablet.Dr) 81 mg PO DAILY [facility] Atorvastatin Calcium (Atorvastatin Calcium 80 Mg Tablet) 80 mg PO BEDTIME [facility] Ceftriaxone Sodium (Ceftriaxone Sodium 1 Gm Vial) 1 gm IVPUSH Q24H [facility] Last Admin: 07/19/25 21:49 Dose: 1 gm Documented By: SRAVANI Dextrose (Dextrose 50 % 25 Gm/50 Ml Syringe) 25 gm IVPUSH Q15M PRN; Protocol PRN Reason: per Hypoglycemia Standing Ord. Ezetimibe (Ezetimibe 10 Mg Tablet) 10 mg PO BEDTIME [facility] Gabapentin (Gabapentin 300 Mg Capsule) 300 mg PO TID [facility] Glucose (Glucose Gel 15 Gm Gel..Gram.) 15 gm PO Q15M PRN; Protocol PRN Reason: per Hypoglycemia Standing Ord. Heparin Sodium (Porcine) (Heparin Sodium,Porcine 5,000 Unit/Ml Vial) 4,500 unit 40 unit/kg (4500 unit) IVPUSH PROTOCOL BOLUS PRN; Protocol PRN Reason: 40 unit/kg - Heparin Protocol Heparin Sodium (Porcine) (Heparin Sodium,Porcine 5,000 Unit/Ml Vial) 9,100 unit 80 unit/kg (9100 unit) IVPUSH PROTOCOL BOLUS PRN; Protocol PRN Reason: 80 unit/kg - Heparin Protocol Hydromorphone HCl (Hydromorphone Hcl 1 Mg/Ml Syringe) 1 mg IVPUSH Q4H PRN; Protocol PRN Reason: Pain, Severe (Pain Scale 7-10) Last Admin: 07/20/25 05:29 Dose: 1 mg Documented By: VANDANA Erythromycin Lactobionate 250 (mg/ Sodium Chloride) 100 mls @ 100 mls/hr IV ONCE [facility] Last Infusion: 07/19/25 16:02 Dose: Infused Documented By: SRAVANI Lactated Ringer's (Lr) 1,000 mls @ 150 mls/hr IVCONT .Q6H40M [facility] Last Infusion: 07/20/25 06:15 Dose: 0 mls/hr Documented By: VANDANA Metronidazole (Flagyl) 500 mg in 100 mls @ 100 mls/hr IV Q8H [facility] Last Infusion: 07/20/25 07:11 Dose: Infused Documented By: AGUILA Heparin Sodium/Sodium Chloride (Heparin Sodium,Porcine/1/2ns) 25,000 unit in 250 mls @ 0 mls/hr IVCONT .Q0M [facility]; Protocol Last Titration: 07/20/25 06:04 Dose: 0 units/kg/hr, 0 mls/hr Documented By: VANDANA Co-signed By: MIKY Insulin Human Lispro (Insulin Lispro 100 Unit/Ml 3 Ml Vial) 0 unit SUBCUT Q6H [facility]; Protocol Last Admin: 07/20/25 06:20 Dose: Not Given Documented By: VANDANA Non-Admin Reason: NPO Isosorbide Mononitrate (Isosorbide Mononitrate 30 Mg Tab.Er.24h) 30 mg PO DAILY [facility]; Protocol Loratadine (Loratadine 10 Mg Tablet) 10 mg PO DAILY [facility] Melatonin (Melatonin 3 Mg Tablet) 6 mg PO BEDTIME PRN PRN Reason: Insomnia Metoclopramide HCl (Metoclopramide Hcl 10 Mg Tablet) 10 mg PO Q8H PRN PRN Reason: Nausea and Vomiting Metoprolol Succinate (Metoprolol Succinate Er 25 Mg Tab.Er.24h) 25 mg PO DAILY [facility]; Protocol Omeprazole (Omeprazole 20 Mg Capsule.Dr) 20 mg PO BID@0630,1630 [facility] Last Admin: 07/20/25 06:13 Dose: Not Given Documented By: VANDANA Non-Admin Reason: patient on Pantoprazole IV Ondansetron HCl (Ondansetron Hcl 4 Mg/2 Ml Vial) 4 mg IVPUSH Q6H PRN PRN Reason: Nausea and Vomiting Last Admin: 07/20/25 03:15 Dose: 4 mg Documented By: VANDANA Pantoprazole Sodium (Pantoprazole Sodium 40 Mg/10 Ml Vial) 40 mg IVPUSH DAILY@0630 [facility] Last Admin: 07/20/25 06:10 Dose: 40 mg Documented By: VANDANA Sodium Chloride (0.9 % Sodium Chloride Flush 3 Ml Syringe) 3 ml IVFLUSH [facility] Last Admin: 07/20/25 07:42 Dose: Not Given Documented By: AGUILA Non-Admin Reason: IV Running Sodium Chloride (0.9 % Sodium Chloride Flush 3 Ml Syringe) 3 ml IVFLUSH [facility] Last Admin: 07/20/25 07:43 Dose: Not Given Documented By: AGUILA Non-Admin Reason: IV Running Venlafaxine HCl (Venlafaxine Hcl 25 Mg Tablet) 50 mg PO BID [facility] Last Admin: 07/20/25 00:05 Dose: Not Given Documented By: VANDANA Non-Admin Reason: Patient Refused <Clive Seo PA-C - Last Filed: 07/20/25 07:58> Labs CBC & Chem 7: 07/20/25 05:23 07/20/25 05:23 <Clive Seo PA-C - Last Filed: 07/20/25 07:58> Labs: Laboratory Results - last 24 hr 07/19/25 07/19/25 07/19/25 13:31 13:40 15:55 MCV 84.2 MCH 28.7 MCHC 34.1 RDW 13.5 Plt Count 302 MPV 10.1 Immature Gran % (Auto) 0.5 H Neut % (Auto) 81.8 H Lymph % (Auto) 14.2 L [place] % (Auto) 3.2 Eos % (Auto) 0.0 Baso % (Auto) 0.3 Lymph # (Auto) 2.1 [place] # (Auto) 0.5 Eos # (Auto) 0.0 Baso # (Auto) 0.0 Abs Immat Gran (auto) 0.07 H Absolute Neuts (auto) 12.0 H Absolute Nucleated RBC 0.000 Nucleated RBC % (auto) 0.0 PT INR aPTT Heparin Protocol VBG pH 7.47 H VBG pCO2 22 VBG pO2 44 VBG HCO3 16 L VBG O2 Saturation 75.0 VBG Base Excess -4.9 Anion Gap 19 Estim Creat Clear Calc 116.0 Estimated GFR > 60 POC Glucose Random Glucose 351 H* Lactic Acid 5.9 H* Lactic Acid F/U @ 2Hr 4.4 H* Lactic Acid F/U @ 4Hr Calcium 9.0 D Total Bilirubin 0.7 AST 30 ALT 7 Alkaline Phosphatase 71 Total Protein 6.8 Albumin 4.2 Lipase < 4 L Beta-Hydroxybutyrate 1.89 H 07/19/25 07/19/25 07/19/25 16:03 19:04 21:13 MCV MCH MCHC RDW Plt Count MPV Immature Gran % (Auto) Neut % (Auto) Lymph % (Auto) [place] % (Auto) Eos % (Auto) Baso % (Auto) Lymph # (Auto) [place] # (Auto) Eos # (Auto) Baso # (Auto) Abs Immat Gran (auto) Absolute Neuts (auto) Absolute Nucleated RBC Nucleated RBC % (auto) PT INR aPTT Heparin Protocol VBG pH VBG pCO2 VBG pO2 VBG HCO3 VBG O2 Saturation VBG Base Excess Anion Gap 15 Estim Creat Clear Calc 119.3 Estimated GFR > 60 POC Glucose 255 H Random Glucose 309 H Lactic Acid Lactic Acid F/U @ 2Hr Lactic Acid F/U @ 4Hr 2.0 Calcium 9.1 Total Bilirubin AST ALT Alkaline Phosphatase Total Protein Albumin Lipase Beta-Hydroxybutyrate 07/19/25 07/19/25 07/20/25 22:12 23:55 05:23 MCV 85.6 85.4 MCH 29.5 29.7 MCHC 34.5 34.8 RDW 13.9 14.1 Plt Count 263 246 MPV 9.9 9.9 Immature Gran % (Auto) 0.5 H Neut % (Auto) 63.5 Lymph % (Auto) 25.6 [place] % (Auto) 10.0 Eos % (Auto) 0.1 Baso % (Auto) 0.3 Lymph # (Auto) 3.3 [place] # (Auto) 1.3 H Eos # (Auto) 0.0 Baso # (Auto) 0.0 Abs Immat Gran (auto) 0.06 H Absolute Neuts (auto) 8.2 Absolute Nucleated RBC 0.000 0.000 Nucleated RBC % (auto) 0.0 0.0 PT 12.2 12.1 INR 1.1 1.1 aPTT Heparin Protocol 30.3 L 116.8 H* D VBG pH VBG pCO2 VBG pO2 VBG HCO3 VBG O2 Saturation VBG Base Excess Anion Gap 13 Estim Creat Clear Calc 149.5 Estimated GFR > 60 POC Glucose 223 H Random Glucose 198 H Lactic Acid Lactic Acid F/U @ 2Hr Lactic Acid F/U @ 4Hr Calcium 8.9 Total Bilirubin AST ALT Alkaline Phosphatase Total Protein Albumin Lipase Beta-Hydroxybutyrate 07/20/25 06:14 MCV MCH MCHC RDW Plt Count MPV Immature Gran % (Auto) Neut % (Auto) Lymph % (Auto) [place] % (Auto) Eos % (Auto) Baso % (Auto) Lymph # (Auto) [place] # (Auto) Eos # (Auto) Baso # (Auto) Abs Immat Gran (auto) Absolute Neuts (auto) Absolute Nucleated RBC Nucleated RBC % (auto) PT INR aPTT Heparin Protocol VBG pH VBG pCO2 VBG pO2 VBG HCO3 VBG O2 Saturation VBG Base Excess Anion Gap Estim Creat Clear Calc Estimated GFR POC Glucose 185 H Random Glucose Lactic Acid Lactic Acid F/U @ 2Hr Lactic Acid F/U @ 4Hr Calcium Total Bilirubin AST ALT Alkaline Phosphatase Total Protein Albumin Lipase Beta-Hydroxybutyrate <Clive Seo PA-C - Last Filed: 07/20/25 07:58> Procedures Date of Service Date of Service: 07/20/25 <Clive Seo PA-C - Last Filed: 07/20/25 07:58> 07/20/25 <Derrick Perkins MD - Last Filed: 07/20/25 08:03> Progress Note: A&P Assessment and plan (1) Ischemic colitis: Status: Acute <Clive Seo PA-C - Last Filed: 07/20/25 07:58> Assessment and Plan: 64-year-old male, with known history of heart disease, previous DC and CABG x4 admitted for abdominal pain CAT scan shows stenosis of multiple vessels including celiac, right colon, renal arteries Changes in the right colon suggestive of ischemic colitis Does not appear to be full-thickness He still has abdominal pain However, exam remains benign Lactic acid has normalized Bicarb trending up He is on a heparin drip Vascular consult for opinion Bowel rest He does not appear toxic Abdomen soft and benign Seen and examined independently <Derrick Perkins MD - Last Filed: 07/20/25 08:03> Assessment and Plan: 64 year old male with a history of hypertension, gastroparesis, class 1 obesity, CAD, paroxysmal AFib, insulin-dependent diabetes and diabetic neuropathy, admitted for ischemic colitis. Managing conservatively currently with bowel rest, anticoagulation. Today he feels worse than yesterday, increased pain in the abdomen. He remains nauseous, no further vomiting. Initial lactate, 5.9 on presentation, 2hr 4.4, 4 hr 2.0. WBC stable from yesterday. PTT critically elevated, due to heparin drip, this should be elevated to optimize perfusion to the bowel. Will continue to trend and monitor per protocol. On exam the adomen is soft, very tender in the epigastric and periumbilical area. non distended. No evidence of previous abdominal surgery. We discussed the possibility of surgical intervention in the future, he understands. Currently no plan to surgery as the lactates are now more reassuring. Bowel rest, continue NPO heparin drip per protocol serial abdominal exams <Clive Seo PA-C - Last Filed: 07/20/25 07:58> Time Spent With Patient Time: Total time managing care of this patient today ____ minutes. <Clive Seo PA-C - Last Filed: 07/20/25 07:58> Quality Stroke Does the patient have a stroke diagnosis?: No <Clive Seo PA-C - Last Filed: 07/20/25 07:58> VTE Prior VTE?: No <Clive Seo PA-C - Last Filed: 07/20/25 07:58> VTE Risk Level:: Medical - moderate - high <Clive Seo PA-C - Last Filed: 07/20/25 07:58> VTE Device Contraindication: N/A - Device Ordered <Clive Seo PA-C - Last Filed: 07/20/25 07:58> VTE Drug Contraindication: N/A - Med Ordered <Clive Seo PA-C - Last Filed: 07/20/25 07:58>
[2025-07-20 07:56] VITALS: BP 140/71; PULSE 85; RESP 18; TEMP 36.4; O2SAT 96
[2025-07-20] MEDS: Aspirin Enteric Coated 81 MG TABLET.DR PO (08:08)
[2025-07-20] MEDS: Metoprolol Succinate ER 25 MG TAB.ER.24H PO (08:08)
[2025-07-20 08:09] LABS: PTT Heparin Drip 37.4 SEC (53-77.9)
--- NOTE | 2025-07-20 09:35 | MHC.CM.PN ---
CM MET WITH PT AT BEDSIDE. PT LIVES WITH SPOUSE AND USES A CANE FOR MOBILITY. + DRIVES. NO SERVICES. + HCP ON FILE AND VERIFIED. PCP AT [facility] (PT CAN'T REMEMBER PROVIDERS NAME) DP: HOME, NO SERVICES IS THE GOAL. PT HAS OWN RIDE HOME. CM WILL CONTINUE TO FOLLOW FOR ANY CHANGE TO DC PLAN/NEEDS
--- NOTE | 2025-07-20 10:58 | P.PNIM_ITS ---
Subjective Subjective Date of Service: 07/20/25 Interval History: Abd pain currently poorly controlled, 05/05 Reports chronic abd pain No N/V/D Had a normal BM yesterday No chest pain/pressure Review of Systems Review of Systems: Yes all other systems are reviewed and are negative Physical Exam 2 Exam: Exam: General: AOx3, no acute distress Resp: CTA bilaterally CVS: S1, S2, RRR GI: +BS, moderate central abd pain Skin: Warm, dry Neuro: Cranial nerves II-XII grossly intact bilaterally. Motor grossly intact bilaterally Extremities: No edema Psych: Anxious Vital Signs: Vital Signs: Last Vital Signs Temp 97.5 F 07/20/25 07:56 Pulse 85 07/20/25 07:56 Resp 18 07/20/25 07:56 BP 140/71 H 07/20/25 07:56 Pulse Ox 96 07/20/25 07:56 O2 Del Method Room Air 07/20/25 07:56 BMI result Body Mass Index 38.0 Objective Data Active Medications Acetaminophen (Acetaminophen 325 Mg Tablet) 650 mg PO Q6H PRN PRN Reason: Pain, Mild 1-3,fever,headache Aspirin (Aspirin Enteric Coated 81 Mg Tablet.) 81 mg PO DAILY [facility] Last Admin: 07/20/25 08:08 Dose: 81 mg Documented By: AGUILA Atorvastatin Calcium (Atorvastatin Calcium 80 Mg Tablet) 80 mg PO BEDTIME [facility] Ceftriaxone Sodium (Ceftriaxone Sodium 1 Gm Vial) 1 gm IVPUSH Q24H [facility] Last Admin: 07/19/25 21:49 Dose: 1 gm Documented By: SRAVANI Dextrose (Dextrose 50 % 25 Gm/50 Ml Syringe) 25 gm IVPUSH Q15M PRN; Protocol PRN Reason: per Hypoglycemia Standing Ord. Ezetimibe (Ezetimibe 10 Mg Tablet) 10 mg PO BEDTIME [facility] Gabapentin (Gabapentin 300 Mg Capsule) 300 mg PO TID [facility] Last Admin: 07/20/25 08:08 Dose: 300 mg Documented By: AGUILA Glucose (Glucose Gel 15 Gm Gel..Gram.) 15 gm PO Q15M PRN; Protocol PRN Reason: per Hypoglycemia Standing Ord. Heparin Sodium (Porcine) (Heparin Sodium,Porcine 5,000 Unit/Ml Vial) 4,500 unit 40 unit/kg (4500 unit) IVPUSH PROTOCOL BOLUS PRN; Protocol PRN Reason: 40 unit/kg - Heparin Protocol Heparin Sodium (Porcine) (Heparin Sodium,Porcine 5,000 Unit/Ml Vial) 9,100 unit 80 unit/kg (9100 unit) IVPUSH PROTOCOL BOLUS PRN; Protocol PRN Reason: 80 unit/kg - Heparin Protocol Hydromorphone HCl (Hydromorphone Hcl 1 Mg/Ml Syringe) 1 mg IVPUSH Q4H PRN; Protocol PRN Reason: Pain, Severe (Pain Scale 7-10) Last Admin: 07/20/25 09:29 Dose: 1 mg Documented By: AGUILA Erythromycin Lactobionate 250 (mg/ Sodium Chloride) 100 mls @ 100 mls/hr IV ONCE [facility] Last Infusion: 07/19/25 16:02 Dose: Infused Documented By: SRAVANI Lactated Ringer's (Lr) 1,000 mls @ 150 mls/hr IVCONT .Q6H40M [facility] Last Admin: 07/20/25 08:11 Dose: 150 mls/hr Documented By: AGUILA Metronidazole (Flagyl) 500 mg in 100 mls @ 100 mls/hr IV Q8H [facility] Last Infusion: 07/20/25 07:11 Dose: Infused Documented By: AGUILA Heparin Sodium/Sodium Chloride (Heparin Sodium,Porcine/1/2ns) 25,000 unit in 250 mls @ 0 mls/hr IVCONT .Q0M [facility]; Protocol Last Titration: 07/20/25 08:16 Dose: 10 units/kg/hr, 11.34 mls/hr Documented By: AGUILA Co-signed By: MAMIE Insulin Human Lispro (Insulin Lispro 100 Unit/Ml 3 Ml Vial) 0 unit SUBCUT Q6H [facility]; Protocol Last Admin: 07/20/25 06:20 Dose: Not Given Documented By: VANDANA Non-Admin Reason: NPO Isosorbide Mononitrate (Isosorbide Mononitrate 30 Mg Tab.Er.24h) 30 mg PO DAILY [facility]; Protocol Last Admin: 07/20/25 08:08 Dose: 30 mg Documented By: AGUILA Loratadine (Loratadine 10 Mg Tablet) 10 mg PO DAILY [facility] Last Admin: 07/20/25 08:09 Dose: 10 mg Documented By: AGUILA Melatonin (Melatonin 3 Mg Tablet) 6 mg PO BEDTIME PRN PRN Reason: Insomnia Metoclopramide HCl (Metoclopramide Hcl 10 Mg Tablet) 10 mg PO Q8H PRN PRN Reason: Nausea and Vomiting Metoprolol Succinate (Metoprolol Succinate Er 25 Mg Tab.Er.24h) 25 mg PO DAILY [facility]; Protocol Last Admin: 07/20/25 08:08 Dose: 25 mg Documented By: AGUILA Omeprazole (Omeprazole 20 Mg Capsule.Dr) 20 mg PO BID@0630,1630 [facility] Last Admin: 07/20/25 06:13 Dose: Not Given Documented By: VANDANA Non-Admin Reason: patient on Pantoprazole IV Ondansetron HCl (Ondansetron Hcl 4 Mg/2 Ml Vial) 4 mg IVPUSH Q6H PRN PRN Reason: Nausea and Vomiting Last Admin: 07/20/25 03:15 Dose: 4 mg Documented By: VANDANA Pantoprazole Sodium (Pantoprazole Sodium 40 Mg/10 Ml Vial) 40 mg IVPUSH DAILY@0630 [facility] Last Admin: 07/20/25 06:10 Dose: 40 mg Documented By: VANDANA Sodium Chloride (0.9 % Sodium Chloride Flush 3 Ml Syringe) 3 ml IVFLUSH [facility] Last Admin: 07/20/25 07:42 Dose: Not Given Documented By: AGUILA Non-Admin Reason: IV Running Sodium Chloride (0.9 % Sodium Chloride Flush 3 Ml Syringe) [facility] Last Admin: 07/20/25 07:43 Dose: Not Given Documented By: AGUILA Non-Admin Reason: IV Running Venlafaxine HCl (Venlafaxine Hcl 25 Mg Tablet) 50 mg PO BID [facility] Last Admin: 07/20/25 08:09 Dose: 50 mg Documented By: AGUILA Labs 07/20/25 05:23 07/20/25 05:23 Labs: Laboratory Results - last 24 hr 07/19/25 07/19/25 07/19/25 13:31 13:40 15:55 MCV 84.2 MCH 28.7 MCHC 34.1 RDW 13.5 Plt Count 302 MPV 10.1 Immature Gran % (Auto) 0.5 H Neut % (Auto) 81.8 H Lymph % (Auto) 14.2 L [place] % (Auto) 3.2 Eos % (Auto) 0.0 Baso % (Auto) 0.3 Lymph # (Auto) 2.1 [place] # (Auto) 0.5 Eos # (Auto) 0.0 Baso # (Auto) 0.0 Abs Immat Gran (auto) 0.07 H Absolute Neuts (auto) 12.0 H Absolute Nucleated RBC 0.000 Nucleated RBC % (auto) 0.0 PT INR aPTT Heparin Protocol VBG pH 7.47 H VBG pCO2 22 VBG pO2 44 VBG HCO3 16 L VBG O2 Saturation 75.0 VBG Base Excess -4.9 Anion Gap 19 Estim Creat Clear Calc 116.0 Estimated GFR > 60 POC Glucose Random Glucose 351 H* Lactic Acid 5.9 H* Lactic Acid F/U @ 2Hr 4.4 H* Lactic Acid F/U @ 4Hr Calcium 9.0 D Total Bilirubin 0.7 AST 30 ALT 7 Alkaline Phosphatase 71 Total Protein 6.8 Albumin 4.2 Lipase < 4 L Beta-Hydroxybutyrate 1.89 H 07/19/25 07/19/25 07/19/25 16:03 19:04 21:13 MCV MCH MCHC RDW Plt Count MPV Immature Gran % (Auto) Neut % (Auto) Lymph % (Auto) [place] % (Auto) Eos % (Auto) Baso % (Auto) Lymph # (Auto) [place] # (Auto) Eos # (Auto) Baso # (Auto) Abs Immat Gran (auto) Absolute Neuts (auto) Absolute Nucleated RBC Nucleated RBC % (auto) PT INR aPTT Heparin Protocol VBG pH VBG pCO2 VBG pO2 VBG HCO3 VBG O2 Saturation VBG Base Excess Anion Gap 15 Estim Creat Clear Calc 119.3 Estimated GFR > 60 POC Glucose 255 H Random Glucose 309 H Lactic Acid Lactic Acid F/U @ 2Hr Lactic Acid F/U @ 4Hr 2.0 Calcium 9.1 Total Bilirubin AST ALT Alkaline Phosphatase Total Protein Albumin Lipase Beta-Hydroxybutyrate 07/19/25 07/19/25 07/20/25 22:12 23:55 05:23 MCV 85.6 85.4 MCH 29.5 29.7 MCHC 34.5 34.8 RDW 13.9 14.1 Plt Count 263 246 MPV 9.9 9.9 Immature Gran % (Auto) 0.5 H Neut % (Auto) 63.5 Lymph % (Auto) 25.6 [place] % (Auto) 10.0 Eos % (Auto) 0.1 Baso % (Auto) 0.3 Lymph # (Auto) 3.3 [place] # (Auto) 1.3 H Eos # (Auto) 0.0 Baso # (Auto) 0.0 Abs Immat Gran (auto) 0.06 H Absolute Neuts (auto) 8.2 Absolute Nucleated RBC 0.000 0.000 Nucleated RBC % (auto) 0.0 0.0 PT 12.2 12.1 INR 1.1 1.1 aPTT Heparin Protocol 30.3 L 116.8 H* D VBG pH VBG pCO2 VBG pO2 VBG HCO3 VBG O2 Saturation VBG Base Excess Anion Gap 13 Estim Creat Clear Calc 149.5 Estimated GFR > 60 POC Glucose 223 H Random Glucose 198 H Lactic Acid Lactic Acid F/U @ 2Hr Lactic Acid F/U @ 4Hr Calcium 8.9 Total Bilirubin AST ALT Alkaline Phosphatase Total Protein Albumin Lipase Beta-Hydroxybutyrate 07/20/25 07/20/25 06:14 07:44 MCV MCH MCHC RDW Plt Count MPV Immature Gran % (Auto) Neut % (Auto) Lymph % (Auto) [place] % (Auto) Eos % (Auto) Baso % (Auto) Lymph # (Auto) [place] # (Auto) Eos # (Auto) Baso # (Auto) Abs Immat Gran (auto) Absolute Neuts (auto) Absolute Nucleated RBC Nucleated RBC % (auto) PT INR aPTT Heparin Protocol 37.4 L D VBG pH VBG pCO2 VBG pO2 VBG HCO3 VBG O2 Saturation VBG Base Excess Anion Gap Estim Creat Clear Calc Estimated GFR POC Glucose 185 H Random Glucose Lactic Acid Lactic Acid F/U @ 2Hr Lactic Acid F/U @ 4Hr Calcium Total Bilirubin AST ALT Alkaline Phosphatase Total Protein Albumin Lipase Beta-Hydroxybutyrate Assessment and Plan (1) Ischemic colitis: Status: Acute Plan Patient is a 64-year-old male admitted by general surgery for ischemic colitis on CT, hospitalist consultation placed for medical management Ischemic colitis on CT - plan per surgery - NPO, IVF - prophylactic antibiotics: Ceftriaxone and Flagyl - heparin drip - GI consult - cardiology consult needed for preop evaluation of surgery indicated Acute lactic acidosis, improved with IVF, likely dehydration HTN - continue metoprolol and losartan CAD - statin, aspirin, Imdur, ezetimibe Paroxysmal AFib - metoprolol - hold Xarelto, on heparin drip Insulin-dependent diabetes - POCs well controlled - POC q.6h - sliding scale insulin q.6h - hold lantus Diabetic neuropathy - gabapentin Class 3 obesity - weight loss encouraged Full code Will continue to follow along with you. Quality Stroke Does the patient have a stroke diagnosis?: No VTE Prior VTE?: No VTE Risk Level:: Medical - moderate - high VTE Device Contraindication: N/A - Device Ordered VTE Drug Contraindication: N/A - Med Ordered
[2025-07-20 11:28] LABS: Glucose, Whole Blood 199 mg/dL (60-115)
[2025-07-20 11:35] VITALS: BP 136/75; PULSE 76; RESP 18; TEMP 36.1; O2SAT 95
--- NOTE | 2025-07-20 11:44 | P.CONGS_ITS ---
History of Present Illness Consult details Consult date: 07/20/25 Reason for consult: other (Mesenteric ischemia) Narrative: Morbidly obese 64-year-old gentleman who is diabetic and coronary artery disease presented to the hospital on 07/20 with abdominal pain. He CT scan of the abdomen there was concern of ischemic colitis of the ascending colon. Upon discussion with him prior to this entire episode he was tolerating a regular diet. Did not have any evidence of food fear. At the current time is abdominal pain appears to be better controlled. He now presents for vascular evaluation Review of Systems 2 Review of Systems: Yes all other systems are reviewed and are negative Constitutional: Constitutional: Reports no additional constitutional complaints ENT: Reports Normal hearing present Cardiovascular: Cardiovascular: Denies chest pain, Denies chest pain at rest, Denies chest pain with activity and Denies pedal edema Respiratory: Respiratory: Denies cough Gastrointestinal: Gastrointestinal: Denies abdominal pain Musculoskeletal: Musculoskeletal: Denies abnormal gait, Denies muscle cramps and Denies radiating pain into limb Integumentary/Breasts: Skin/Breast: Denies skin ulcer and Denies wounds Neurologic: Reports Normal hearing present and Denies abnormal gait Psychiatric: Psychiatric: Reports no additional psychiatric complaints [facility] Past Medical History Medical History Hypertensive urgency Abdominal pain PVD (peripheral vascular disease) Gastroparesis DKA (diabetic ketoacidosis) Obesity (BMI 30-39.9) PAD (peripheral artery disease) Afib Amputation of left great toe Lower limb amputation, great toe CAD (coronary artery disease) DMII (diabetes mellitus, type 2) Orthopedic hardware present Hyperglycemia Cellulitis Asthma Diabetes Hypertension FHx: bilateral hip replacements Family History Family History Father Cancer of neck Mother Uterus cancer Other No family history of coronary artery disease Surgical History Surgical History History of amputation of toe (07/29/22) History of amputation of great toe (01/07/22) History of back surgery History of neck surgery History of ankle surgery H/O bilateral hip replacements S/P quadruple vessel bypass Social History Social History Household Members: Spouse Household Members Other:: 3 Housing: Apartment Are you a primary healthcare risk control consultant to a significant other at home: No Do you presently have visiting nurse or other home services: No Alcohol intake: never Comment: refused bed or chair alarm Patient Tobacco Use Status: Former Tobacco user Tobacco use type: Cigarette Smoked in Last 30 Days: No e-Cigarette/Vaping Use: Never Used Second Hand Smoke Exposure: No Use of substances other than those prescribed or required for medical reasons: No Substance Use Type: Marijuana Currently Displaying Signs/Symptoms of Drug Intoxication Withdrawal: No Have you been hit, kicked, punched, or otherwise hurt by someone within the past year? If so, by whom?: No Do you feel safe in your current relationship?: Yes Is there a partner from a previous relationship who is making you feel unsafe now?: No Are you made to feel afraid or neglected: No Advance Directives: Yes Advance Directives Information Provided: Yes Advance Directives on File: No Advance Directives Date on File: 07/20/25 Do you have a plan to hurt others: No Plan Nutrition Risks: No Nutritional Risk Poor oral hygiene: No service: No Current occupational status: disabled Meds Allergies Allergy/AdvReac Type Severity Reaction Status Date / Time morphine AdvReac Intermediate Hallucinati Verified 07/19/25 13:23 ons Active Medications: Current Medications Acetaminophen (Acetaminophen 325 Mg Tablet) 650 mg PO Q6H PRN PRN Reason: Pain, Mild 1-3,fever,headache Aspirin (Aspirin Enteric Coated 81 Mg Tablet.) 81 mg PO DAILY [facility] Last Admin: 07/20/25 08:08 Dose: 81 mg Atorvastatin Calcium (Atorvastatin Calcium 80 Mg Tablet) 80 mg PO BEDTIME [facility] Ceftriaxone Sodium (Ceftriaxone Sodium 1 Gm Vial) 1 gm IVPUSH Q24H [facility] Last Admin: 07/19/25 21:49 Dose: 1 gm Dextrose (Dextrose 50 % 25 Gm/50 Ml Syringe) 25 gm IVPUSH Q15M PRN; Protocol PRN Reason: per Hypoglycemia Standing Ord. Ezetimibe (Ezetimibe 10 Mg Tablet) 10 mg PO BEDTIME [facility] Gabapentin (Gabapentin 300 Mg Capsule) 300 mg PO TID [facility] Last Admin: 07/20/25 08:08 Dose: 300 mg Glucose (Glucose Gel 15 Gm Gel..Gram.) 15 gm PO Q15M PRN; Protocol PRN Reason: per Hypoglycemia Standing Ord. Heparin Sodium (Porcine) (Heparin Sodium,Porcine 5,000 Unit/Ml Vial) 4,500 unit 40 unit/kg (4500 unit) IVPUSH PROTOCOL BOLUS PRN; Protocol PRN Reason: 40 unit/kg - Heparin Protocol Heparin Sodium (Porcine) (Heparin Sodium,Porcine 5,000 Unit/Ml Vial) 9,100 unit 80 unit/kg (9100 unit) IVPUSH PROTOCOL BOLUS PRN; Protocol PRN Reason: 80 unit/kg - Heparin Protocol Hydromorphone HCl (Hydromorphone Hcl 1 Mg/Ml Syringe) 1 mg IVPUSH Q4H PRN; Protocol PRN Reason: Pain, Severe (Pain Scale 7-10) Last Admin: 07/20/25 09:29 Dose: 1 mg Erythromycin Lactobionate 250 (mg/ Sodium Chloride) 100 mls @ 100 mls/hr IV ONCE [facility] Last Infusion: 07/19/25 16:02 Dose: Infused Lactated Ringer's (Lr) 1,000 mls @ 150 mls/hr IVCONT .Q6H40M [facility] Last Admin: 07/20/25 08:11 Dose: 150 mls/hr Metronidazole (Flagyl) 500 mg in 100 mls @ 100 mls/hr IV Q8H [facility] Last Infusion: 07/20/25 07:11 Dose: Infused Heparin Sodium/Sodium Chloride (Heparin Sodium,Porcine/1/2ns) 25,000 unit in 250 mls @ 0 mls/hr IVCONT .Q0M [facility]; Protocol Last Titration: 07/20/25 08:16 Dose: 10 units/kg/hr, 11.34 mls/hr Insulin Human Lispro (Insulin Lispro 100 Unit/Ml 3 Ml Vial) 0 unit SUBCUT Q6H [facility]; Protocol Last Admin: 07/20/25 06:20 Dose: Not Given Isosorbide Mononitrate (Isosorbide Mononitrate 30 Mg Tab.Er.24h) 30 mg PO DAILY [facility]; Protocol Last Admin: 07/20/25 08:08 Dose: 30 mg Loratadine (Loratadine 10 Mg Tablet) 10 mg PO DAILY [facility] Last Admin: 07/20/25 08:09 Dose: 10 mg Melatonin (Melatonin 3 Mg Tablet) 6 mg PO BEDTIME PRN PRN Reason: Insomnia Metoclopramide HCl (Metoclopramide Hcl 10 Mg Tablet) 10 mg PO Q8H PRN PRN Reason: Nausea and Vomiting Metoprolol Succinate (Metoprolol Succinate Er 25 Mg Tab.Er.24h) 25 mg PO DAILY [facility]; Protocol Last Admin: 07/20/25 08:08 Dose: 25 mg Omeprazole (Omeprazole 20 Mg Capsule.Dr) 20 mg PO BID@0630,1630 [facility] Last Admin: 07/20/25 06:13 Dose: Not Given Ondansetron HCl (Ondansetron Hcl 4 Mg/2 Ml Vial) 4 mg IVPUSH Q6H PRN PRN Reason: Nausea and Vomiting Last Admin: 07/20/25 11:42 Dose: 4 mg Pantoprazole Sodium (Pantoprazole Sodium 40 Mg/10 Ml Vial) 40 mg IVPUSH DAILY@0630 [facility] Last Admin: 07/20/25 06:10 Dose: 40 mg Sodium Chloride (0.9 % Sodium Chloride Flush 3 Ml Syringe) 3 ml IVFLUSH [facility] Last Admin: 07/20/25 07:42 Dose: Not Given Sodium Chloride (0.9 % Sodium Chloride Flush 3 Ml Syringe) 3 ml IVFLUSH [facility] Last Admin: 07/20/25 07:43 Dose: Not Given Venlafaxine HCl (Venlafaxine Hcl 25 Mg Tablet) 50 mg PO BID [facility] Last Admin: 07/20/25 08:09 Dose: 50 mg Home Medications ?Medication ?Instructions ?Recorded ?Confirmed ?Last Taken ?Type ezetimibe 10 mg tablet 10 mg PO BEDTIME 01/03/2207/17/25 History gabapentin 300 mg capsule 300 mg PO TID 01/03/2207/1907/17/25 History insulin glargine 100 unit/mL 10 unit subcut BEDTIME 07/19/25 07/17/25 History subcutaneous solution (Lantus U-100 Insulin) isosorbide mononitrate 30 mg 30 mg PO DAILY 01/03/22 0 07/19/25 07/17/25 History tablet,extended release 24 hr loratadine 10 mg tablet 10 mg PO DAILY 01/03/2206/2807/17/25 History losartan 25 mg tablet 25 mg PO DAILY 01/03/2206/2807/17/25 History meclizine 25 mg tablet 25 mg PO TID PRN Dizziness O r 01/03/22 07/19/25 05/23/25 History Vertigo rosuvastatin 40 mg tablet 40 mg PO BEDTIME 01/03/2207/17/25 History aspirin 81 mg tablet,delayed 81 mg PO DAILY 08/04/22 0 07/19/25 07/17/25 History release furosemide 20 mg tablet 20 mg PO DAILY 11/13/2206/2807/17/25 History metoprolol succinate 25 mg 25 mg PO DAILY 10/14/2407/17/25 History tablet,extended release 24 hr insulin lispro 100 unit/mL See Protocol subcut QIDACHS 12/16/24 07/19/25 07/17/25 History subcutaneous solution rivaroxaban 20 mg tablet (Xarelto) 20 mg PO DAILY@1700 12/16/24 07/19/25 07/17/25 History insulin glargine 100 unit/mL 8 unit subcut DAILY 03/2307/19/25 07/17/25 History subcutaneous solution (Lantus U-100 Insulin) glucagon 1 mg/0.2 mL subcutaneous 1 mg subcut ONCE PRN Hypoglycemia 05/26/25 07/19/25 Unknown History auto-injector (Gvoke HypoPen 2-Pack) lidocaine 4 % topical patch 1 patch transdermal DAILY PRN Pain 05/26/25 07/19/25 05/23/25 History (Lidocaine Pain Relief) pantoprazole 40 mg tablet,delayed 40 mg PO BID@0630,16 30 05/26/25 07/19/25 07/17/25 History release ondansetron 4 mg disintegrating 4 mg PO Q8H PRN Nausea And Vomiting 07/19/25 07/19/25 Unknown History tablet Physical Exam 2 Vital Signs: Vital Signs: Last Vital Signs Temp 97.0 F 07/20/25 11:35 Pulse 76 07/20/25 11:35 Resp 18 07/20/25 11:35 BP 136/75 07/20/25 11:35 Pulse Ox 95 07/20/25 11:35 O2 Del Method Room Air 07/20/25 11:35 BMI result Body Mass Index 38.0 Const: General: cooperative, healthy appearing and comfortable O rientation/consciousness: oriented to person, oriented to place and oriented to time HEENT: Head: Yes normal to inspection Neck: Neck: Yes normal visual inspection Carotids: no bruits Chest: Chest palpation & inspection: normal inspection of the chest Resp: Effort & Inspection: normal respiratory effort and able to speak in complete sentences Auscultation: clear to auscultation bilaterally, no crackles, no rales, no rhonchi and no wheezes Cardio: Rate: regular rate Rhythm: regular rhythm Heart sounds: S1 normal heart sound present and S2 normal heart sound present Bruits: no carotid bruits Peripheral pulses: Peripheral pulses 2+ throughout GI: Other: Abdomen soft diffusely tender no rebound no guarding Inspection: Yes normal to inspection Skin: Wounds: no wounds Hair: normal Neuro: General: oriented to person, oriented to place and oriented to time Cranial nerves: Yes CN's II-XII intact bilaterally and Yes Normal hearing present Cognition (Neuro): normal cognition Motor exam (neuro): 5/5 motor strength present throughout Extrem: Other: venous exam: No significant superficial varicosities or spider telangiectasias, minimal edema General: No clubbing, No cyanosis and No edema Psych: Appearance: grossly normal Mental Status: mental status grossly normal Speech and movement: Normal speech and movement present Results Labs 07/20/25 05:23 07/20/25 05:23 Labs: Abnormal lab results 07/19/25 07/19/25 07/19/25 Range/Units 13:31 13:40 15:55 WBC 14.6 H (4.8-10.8) X10*3/uL RBC (4.60-5.80) X10*6/uL Hgb 13.4 L (14.0-18.0) g/dl Hct 39.3 L (42.0-52.0) % Immature Gran % (Auto) 0.5 H (0.0-0.4) % Neut % (Auto) 81.8 H (45-73) % Lymph % (Auto) 14.2 L (20-40) % [place] # (Auto) (0.1-1.2) X10*3/uL Abs Immat Gran (auto) 0.07 H (0.00-0.03) X10*3/uL Absolute Neuts (auto) 12.0 H (2.0-8.3) x10*3/uL aPTT Heparin Protocol (53-77.9) SEC VBG pH 7.47 H (7.32-7.43) VBG HCO3 16 L (22-26) mmol/L Chloride (96-108) mmol/L Carbon Dioxide 17 L (22-29) mmol/L POC Glucose (60-115) mg/dL Random Glucose 351 H* (60-115) mg/dL Lactic Acid 5.9 H* (0.5-2.0) mmol/L Lactic Acid F/U @ 2Hr 4.4 H* (0.5-2.0) mmol/L Lipase < 4 L (8-78) U/L Beta-Hydroxybutyrate 1.89 H (0.02-0.27) mmol/L 07/19/25 07/19/25 07/19/25 Range/Units 16:03 21:13 22:12 WBC 12.9 H (4.8-10.8) X10*3/uL RBC 4.30 L (4.60-5.80) X10*6/uL Hgb 12.7 L (14.0-18.0) g/dl Hct 36.8 L (42.0-52.0) % Immature Gran % (Auto) (0.0-0.4) % Neut % (Auto) (45-73) % Lymph % (Auto) (20-40) % [place] # (Auto) (0.1-1.2) X10*3/uL Abs Immat Gran (auto) (0.00-0.03) X10*3/uL Absolute Neuts (auto) (2.0-8.3) x10*3/uL aPTT Heparin Protocol 30.3 L (53-77.9) SEC VBG pH (7.32-7.43) VBG HCO3 (22-26) mmol/L Chloride 110 H (96-108) mmol/L Carbon Dioxide 19 L (22-29) mmol/L POC Glucose 255 H (60-115) mg/dL Random Glucose 309 H (60-115) mg/dL Lactic Acid (0.5-2.0) mmol/L Lactic Acid F/U @ 2Hr (0.5-2.0) mmol/L Lipase (8-78) U/L Beta-Hydroxybutyrate (0.02-0.27) mmol/L 07/19/25 07/20/25 07/20/25 Range/Units 23:55 05:23 06:14 WBC 13.0 H (4.8-10.8) X10*3/uL RBC 4.11 L (4.60-5.80) X10*6/uL Hgb 12.2 L (14.0-18.0) g/dl Hct 35.1 L (42.0-52.0) % Immature Gran % (Auto) 0.5 H (0.0-0.4) % Neut % (Auto) (45-73) % Lymph % (Auto) (20-40) % [place] # (Auto) 1.3 H (0.1-1.2) X10*3/uL Abs Immat Gran (auto) 0.06 H (0.00-0.03) X10*3/uL Absolute Neuts (auto) (2.0-8.3) x10*3/uL aPTT Heparin Protocol 116.8 H* D (53-77.9) SEC VBG pH (7.32-7.43) VBG HCO3 (22-26) mmol/L Chloride 113 H (96-108) mmol/L Carbon Dioxide 20 L (22-29) mmol/L POC Glucose 223 H 185 H (60-115) mg/dL Random Glucose 198 H (60-115) mg/dL Lactic Acid (0.5-2.0) mmol/L Lactic Acid F/U @ 2Hr (0.5-2.0) mmol/L Lipase (8-78) U/L Beta-Hydroxybutyrate (0.02-0.27) mmol/L 07/20/25 07/20/25 Range/Units 07:44 11:22 WBC (4.8-10.8) X10*3/uL RBC (4.60-5.80) X10*6/uL Hgb (14.0-18.0) g/dl Hct (42.0-52.0) % Immature Gran % (Auto) (0.0-0.4) % Neut % (Auto) (45-73) % Lymph % (Auto) (20-40) % [place] # (Auto) (0.1-1.2) X10*3/uL Abs Immat Gran (auto) (0.00-0.03) X10*3/uL Absolute Neuts (auto) (2.0-8.3) x10*3/uL aPTT Heparin Protocol 37.4 L D (53-77.9) SEC VBG pH (7.32-7.43) VBG HCO3 (22-26) mmol/L Chloride (96-108) mmol/L Carbon Dioxide (22-29) mmol/L POC Glucose 199 H (60-115) mg/dL Random Glucose (60-115) mg/dL Lactic Acid (0.5-2.0) mmol/L Lactic Acid F/U @ 2Hr (0.5-2.0) mmol/L Lipase (8-78) U/L Beta-Hydroxybutyrate (0.02-0.27) mmol/L Short CBC 07/19/25 07/19/25 07/20/25 Range/Units 13:31 22:12 05:23 WBC 14.6 H 12.9 H 13.0 H (4.8-10.8) X10*3/uL Hgb 13.4 L 12.7 L 12.2 L (14.0-18.0) g/dl Hct 39.3 L 36.8 L 35.1 L (42.0-52.0) % Plt Count 302 263 246 (160-400) X10*3/uL BMP 07/19/25 07/19/25 07/20/25 13:31 16:03 05:23 Sodium 140 141 142 Potassium 4.0 3.4 3.9 Chloride 108 110 H 113 H Carbon Dioxide 17 L 19 L 20 L BUN 9 9 9 Creatinine 0.72 0.70 0.61 Calcium 9.0 D 9.1 8.9 Liver Function 07/19/25 Range/Units 13:31 Total Bilirubin 0.7 (0.0-1.0) mg/dL AST 30 (5-37) U/L ALT 7 (0-40) U/L Alkaline Phosphatase 71 (39-117) U/L Albumin 4.2 (3.5-5.0) g/dL All other labs normal. Imaging Additional studies: CT scan was reviewed. Atherosclerotic aorta. 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 Assessment and Plan (1) Ischemic colitis: Status: Acute Plan I did have an opportunity to review the CAT scan. At the current time I do think all 3 mesenteric access is are supplying fairly well. There is question of thickening and inflammation of the ascending colon extending into the mid transverse colon. I do agree with the general surgeons care plan conservative management. I do not believe this is acute or chronic mesenteric ischemia at the current time. We will continue to monitor with you. Thank you for allowing us to assist in his care. Procedures Date of Service Date of Service: 07/20/25
--- NOTE | 2025-07-20 12:07 | P.CNGI_ITS ---
History of Present Illness Data of Consult Service Date: 07/20/25 Primary Care Provider: Unknown Physician HPI Reason for consult: ischemic colitis 64 year old male with hx of- DM/CAD s/p CABG X4, gastroparesis and colitis who I am seeing for abdominal pain and colitis. Patient presented with 2-3 d of worsening shtrp, stabbing mid abdominal pain, 10/10 in severity without relief and worse with food. came on gradually and assoc with nausea, green emesis. Normal stools, without diarrhea or blood. No sick contact or ingestion of poorly cooked foods. Denie taking IVDA,nsaids. A CTA was ordered revealing reduced enhancing colic branches of SMA and colitis on the right side. Lactate on admission was raised. He was put on heparin bt does take xarelto and aspirin at home already. Lactate has came down but patient still has pain. Review of Systems 2 Review of Systems: Constitutional : No Weight loss, No Fever, No Chills ENT/Mouth : No sore throat, No Rhinorrhea Eyes: No Swelling, No Redness Cardiovascular : No Chest Pain, No SOB, No Edema Respiratory : No Cough, No Sputum, No Wheezing Gastrointestinal : see HPI Genitourinary : NO Dysuria, No Urinary Frequency, No Hematuria, No Urgency Musculoskeletal : no joint pain, No Myalgias, No Joint Swelling Skin : No Skin Lesions, No rash Neuro : No Weakness, No Numbness, No Dizziness, No Headache Psych : No Anxiety/Panic, No Depression Heme/Lymph: No Bruising, No Lymphadenopathy Endocrine : No Polyuria, No Polydipsia All other systems reviewed and are negative. [facility] Past Medical History Medical History Hypertensive urgency Abdominal pain PVD (peripheral vascular disease) Gastroparesis DKA (diabetic ketoacidosis) Obesity (BMI 30-39.9) PAD (peripheral artery disease) Afib Amputation of left great toe Lower limb amputation, great toe CAD (coronary artery disease) DMII (diabetes mellitus, type 2) Orthopedic hardware present Hyperglycemia Cellulitis Asthma Diabetes Hypertension FHx: bilateral hip replacements Family History Family History Father Cancer of neck Mother Uterus cancer Other No family history of coronary artery disease Surgical History Surgical History History of amputation of toe (07/29/22) History of amputation of great toe (01/07/22) History of back surgery History of neck surgery History of ankle surgery H/O bilateral hip replacements S/P quadruple vessel bypass Social History Social History Household Members: Spouse Household Members Other:: 3 Housing: Apartment Are you a primary sub acute care nurse to a significant other at home: No Do you presently have visiting nurse or other home services: No Alcohol intake: never Comment: refused bed or chair alarm Patient Tobacco Use Status: Former Tobacco user Tobacco use type: Cigarette Smoked in Last 30 Days: No e-Cigarette/Vaping Use: Never Used Second Hand Smoke Exposure: No Use of substances other than those prescribed or required for medical reasons: No Substance Use Type: Marijuana Currently Displaying Signs/Symptoms of Drug Intoxication Withdrawal: No Have you been hit, kicked, punched, or otherwise hurt by someone within the past year? If so, by whom?: No Do you feel safe in your current relationship?: Yes Is there a partner from a previous relationship who is making you feel unsafe now?: No Are you made to feel afraid or neglected: No Advance Directives: Yes Advance Directives Information Provided: Yes Advance Directives on File: No Advance Directives Date on File: 07/20/25 Do you have a plan to hurt others: No Plan Nutrition Risks: No Nutritional Risk Poor oral hygiene: No service: No Current occupational status: disabled Meds Allergies Allergy/AdvReac Type Severity Reaction Status Date / Time morphine AdvReac Intermediate Hallucinati Verified 07/19/25 13:23 ons Active Medications: Current Medications Acetaminophen (Acetaminophen 325 Mg Tablet) 650 mg PO Q6H PRN PRN Reason: Pain, Mild 1-3,fever,headache Aspirin (Aspirin Enteric Coated 81 Mg Tablet.) 81 mg PO DAILY [facility] Last Admin: 07/20/25 08:08 Dose: 81 mg Atorvastatin Calcium (Atorvastatin Calcium 80 Mg Tablet) 80 mg PO BEDTIME [facility] Ceftriaxone Sodium (Ceftriaxone Sodium 1 Gm Vial) 1 gm IVPUSH Q24H [facility] Last Admin: 07/19/25 21:49 Dose: 1 gm Dextrose (Dextrose 50 % 25 Gm/50 Ml Syringe) 25 gm IVPUSH Q15M PRN; Protocol PRN Reason: per Hypoglycemia Standing Ord. Ezetimibe (Ezetimibe 10 Mg Tablet) 10 mg PO BEDTIME [facility] Gabapentin (Gabapentin 300 Mg Capsule) 300 mg PO TID [facility] Last Admin: 07/20/25 08:08 Dose: 300 mg Glucose (Glucose Gel 15 Gm Gel..Gram.) 15 gm PO Q15M PRN; Protocol PRN Reason: per Hypoglycemia Standing Ord. Heparin Sodium (Porcine) (Heparin Sodium,Porcine 5,000 Unit/Ml Vial) 4,500 unit 40 unit/kg (4500 unit) IVPUSH PROTOCOL BOLUS PRN; Protocol PRN Reason: 40 unit/kg - Heparin Protocol Heparin Sodium (Porcine) (Heparin Sodium,Porcine 5,000 Unit/Ml Vial) 9,100 unit 80 unit/kg (9100 unit) IVPUSH PROTOCOL BOLUS PRN; Protocol PRN Reason: 80 unit/kg - Heparin Protocol Hydromorphone HCl (Hydromorphone Hcl 1 Mg/Ml Syringe) 1 mg IVPUSH Q4H PRN; Protocol PRN Reason: Pain, Severe (Pain Scale 7-10) Last Admin: 07/20/25 09:29 Dose: 1 mg Erythromycin Lactobionate 250 (mg/ Sodium Chloride) 100 mls @ 100 mls/hr IV ONCE [facility] Last Infusion: 07/19/25 16:02 Dose: Infused Lactated Ringer's (Lr) 1,000 mls @ 150 mls/hr IVCONT .Q6H40M [facility] Last Admin: 07/20/25 08:11 Dose: 150 mls/hr Metronidazole (Flagyl) 500 mg in 100 mls @ 100 mls/hr IV Q8H [facility] Last Infusion: 07/20/25 07:11 Dose: Infused Heparin Sodium/Sodium Chloride (Heparin Sodium,Porcine/1/2ns) 25,000 unit in 250 mls @ 0 mls/hr IVCONT .Q0M [facility]; Protocol Last Titration: 07/20/25 08:16 Dose: 10 units/kg/hr, 11.34 mls/hr Insulin Human Lispro (Insulin Lispro 100 Unit/Ml 3 Ml Vial) 0 unit SUBCUT Q6H [facility]; Protocol Last Admin: 07/20/25 11:56 Dose: Not Given Isosorbide Mononitrate (Isosorbide Mononitrate 30 Mg Tab.Er.24h) 30 mg PO DAILY [facility]; Protocol Last Admin: 07/20/25 08:08 Dose: 30 mg Loratadine (Loratadine 10 Mg Tablet) 10 mg PO DAILY [facility] Last Admin: 07/20/25 08:09 Dose: 10 mg Melatonin (Melatonin 3 Mg Tablet) 6 mg PO BEDTIME PRN PRN Reason: Insomnia Metoclopramide HCl (Metoclopramide Hcl 10 Mg Tablet) 10 mg PO Q8H PRN PRN Reason: Nausea and Vomiting Metoprolol Succinate (Metoprolol Succinate Er 25 Mg Tab.Er.24h) 25 mg PO DAILY [facility]; Protocol Last Admin: 07/20/25 08:08 Dose: 25 mg Omeprazole (Omeprazole 20 Mg Capsule.Dr) 20 mg PO BID@0630,1630 [facility] Last Admin: 07/20/25 06:13 Dose: Not Given Ondansetron HCl (Ondansetron Hcl 4 Mg/2 Ml Vial) 4 mg IVPUSH Q6H PRN PRN Reason: Nausea and Vomiting Last Admin: 07/20/25 11:42 Dose: 4 mg Pantoprazole Sodium (Pantoprazole Sodium 40 Mg/10 Ml Vial) 40 mg IVPUSH DAILY@0630 [facility] Last Admin: 07/20/25 06:10 Dose: 40 mg Sodium Chloride (0.9 % Sodium Chloride Flush 3 Ml Syringe) 3 ml IVFLUSH [facility] Last Admin: 07/20/25 07:42 Dose: Not Given Sodium Chloride (0.9 % Sodium Chloride Flush 3 Ml Syringe) 3 ml IVFLUSH [facility] Last Admin: 07/20/25 07:43 Dose: Not Given Venlafaxine HCl (Venlafaxine Hcl 25 Mg Tablet) 50 mg PO BID [facility] Last Admin: 07/20/25 08:09 Dose: 50 mg Home Medications ?Medication ?Instructions ?Recorded ?Confirmed ?Last Taken ?Type ezetimibe 10 mg tablet 10 mg PO BEDTIME 01/03/2207/17/25 History gabapentin 300 mg capsule 300 mg PO TID 01/03/2207/1907/17/25 History insulin glargine 100 unit/mL 10 unit subcut BEDTIME 07/19/25 07/17/25 History subcutaneous solution (Lantus U-100 Insulin) isosorbide mononitrate 30 mg 30 mg PO DAILY 01/03/22 0 07/19/25 07/17/25 History tablet,extended release 24 hr loratadine 10 mg tablet 10 mg PO DAILY 01/03/2206/2807/17/25 History losartan 25 mg tablet 25 mg PO DAILY 01/03/2206/2807/17/25 History meclizine 25 mg tablet 25 mg PO TID PRN Dizziness O r 01/03/22 07/19/25 05/23/25 History Vertigo rosuvastatin 40 mg tablet 40 mg PO BEDTIME 01/03/2207/17/25 History aspirin 81 mg tablet,delayed 81 mg PO DAILY 08/04/22 0 07/19/25 07/17/25 History release furosemide 20 mg tablet 20 mg PO DAILY 11/13/2206/2807/17/25 History metoprolol succinate 25 mg 25 mg PO DAILY 10/14/2407/17/25 History tablet,extended release 24 hr insulin lispro 100 unit/mL See Protocol subcut QIDACHS 12/16/24 07/19/25 07/17/25 History subcutaneous solution rivaroxaban 20 mg tablet (Xarelto) 20 mg PO DAILY@1700 12/16/24 07/19/25 07/17/25 History insulin glargine 100 unit/mL 8 unit subcut DAILY 03/2307/19/25 07/17/25 History subcutaneous solution (Lantus U-100 Insulin) glucagon 1 mg/0.2 mL subcutaneous 1 mg subcut ONCE PRN Hypoglycemia 05/26/25 07/19/25 Unknown History auto-injector (Gvoke HypoPen 2-Pack) lidocaine 4 % topical patch 1 patch transdermal DAILY PRN Pain 05/26/25 07/19/25 05/23/25 History (Lidocaine Pain Relief) pantoprazole 40 mg tablet,delayed 40 mg PO BID@0630,16 30 05/26/25 07/19/25 07/17/25 History release ondansetron 4 mg disintegrating 4 mg PO Q8H PRN Nausea And Vomiting 07/19/25 07/19/25 Unknown History tablet Physical Exam 2 Exam: Exam: EXAM: GENERAL: The patient is well developed and nontoxic, uncomfortable appearing VITAL SIGNS:see workflow HEENT: Nonicteric sclerae, PERRLA, EOMI. Oropharynx clear. Moist mucous membranes. Conjunctivae appear well perfused. No thyroid mass. CHEST: Chest wall is nontender. HEART: Regular rate and rhythm without murmurs. LUNGS: Clear to auscultation bilaterally. ABDOMEN: Soft, positive bowel sounds, nontender, no organomegaly.no flank tenderness SKIN: No rash, no excessive bruising, petechiae, or purpura. NEUROLOGIC: Cranial nerves II-XII intact without motor/sensory deficit. Psych: normal affect Vital Signs: Vital Signs: Last Vital Signs Temp 97.0 F 07/20/25 11:35 Pulse 76 07/20/25 11:35 Resp 18 07/20/25 11:35 BP 136/75 07/20/25 11:35 Pulse Ox 95 07/20/25 11:35 O2 Del Method Room Air 07/20/25 11:35 BMI result Body Mass Index 38.0 Results Labs 07/20/25 05:23 07/20/25 05:23 Labs: Short CBC 07/19/25 07/19/25 07/20/25 Range/Units 13:31 22:12 05:23 WBC 14.6 H 12.9 H 13.0 H (4.8-10.8) X10*3/uL Hgb 13.4 L 12.7 L 12.2 L (14.0-18.0) g/dl Hct 39.3 L 36.8 L 35.1 L (42.0-52.0) % Plt Count 302 263 246 (160-400) X10*3/uL BMP 07/19/25 07/19/25 07/20/25 13:31 16:03 05:23 Sodium 140 141 142 Potassium 4.0 3.4 3.9 Chloride 108 110 H 113 H Carbon Dioxide 17 L 19 L 20 L BUN 9 9 9 Creatinine 0.72 0.70 0.61 Calcium 9.0 D 9.1 8.9 Liver Function 07/19/25 Range/Units 13:31 Total Bilirubin 0.7 (0.0-1.0) mg/dL AST 30 (5-37) U/L ALT 7 (0-40) U/L Alkaline Phosphatase 71 (39-117) U/L Albumin 4.2 (3.5-5.0) g/dL Imaging CT scan - abdomen: Attestation: I personally reviewed and interpreted this imaging study as follows: (thickened inflammaed, right colon with reduced take up of dye right colic branches ) Assessment and Plan (1) Ischemic colitis: Status: Acute Plan 1/ Right sided ischemic colitis, 2/2 poor flow right colic branches. Lactate coming down PLAN: 1/ Cont with heaprin, monitoring of lactate 2/ high risk for gangrene and necrosis, would avoid colonoscopy at this time, 3/ consider vasodilator like trental or pletil 4/ avoid hypotension Procedures Date of Service Date of Service: 07/20/25
[2025-07-20 14:22] LABS: PTT Heparin Drip 63.4 SEC (53-77.9)
[2025-07-20 15:43] VITALS: BP 172/83; PULSE 77; RESP 18; TEMP 36.3; O2SAT 94
--- NOTE | 2025-07-20 15:49 | PM.EVENT ---
Event Note Date of Service: 07/21/25 Event Note: Seen multiple times throughout the day Describes abdominal pain but this has not worse He actually sites as he is a little more comfortable this afternoon Abdomen remained soft and very benign Hemodynamically stable Does not appear toxic Appreciate vascular surgery input Currently on heparin drip On heparin drip protocol Continue current care Possibly start on clear liquids tomorrow Time Spent With Patient Time: Total time managing care of this patient today ____ minutes.
[2025-07-20 18:06] LABS: Glucose, Whole Blood 170 mg/dL (60-115)
[2025-07-20 19:40] VITALS: BP 144/69; PULSE 69; RESP 18; TEMP 36.8; O2SAT 97
[2025-07-20 20:03] LABS: PTT Heparin Drip 81.6 SEC (53-77.9)
[2025-07-20] MEDS: Heparin Sodium,Porcine/1/2NS 25,000 UNIT/250 ML IV.SOLN 11.34 UNIT IVCONT (20:10)
[2025-07-20 23:41] VITALS: BP 139/63; PULSE 71; RESP 18; TEMP 37.1; O2SAT 94
[2025-07-20 23:52] LABS: Glucose, Whole Blood 167 mg/dL (60-115)
[2025-07-21] MEDS: Lactated Ringers 1,000 ML 150 ML IVCONT ×3 (01:54→17:57)
[2025-07-21 02:34] LABS: PTT Heparin Drip 56.8 SEC (53-77.9)
[2025-07-21 03:02] VITALS: BP 165/74; PULSE 74; RESP 18; TEMP 36.6; O2SAT 97
[2025-07-21] MEDS: metroNIDAZOLE/NS 500 MG/100 ML PIGGYBACK 100 MG IV ×3 (06:06→20:38)
[2025-07-21 06:30] LABS: Glucose, Whole Blood 167 mg/dL (60-115)
[2025-07-21 07:17] VITALS: BP 154/72; PULSE 71; RESP 18; TEMP 36.8; O2SAT 94
[2025-07-21] MEDS: Aspirin Enteric Coated 81 MG TABLET.DR PO (07:22)
[2025-07-21] MEDS: Metoprolol Succinate ER 25 MG TAB.ER.24H PO (07:24)
--- NOTE | 2025-07-21 07:30 | PM.PNGS ---
Subjective Subjective Date of Service: 07/21/25 <Clive Seo PA-C - Last Filed: 07/21/25 09:32> 07/21/25 <Derrick Perkins MD - Last Filed: 07/21/25 08:21> Interval history: states he doesnt feel better or worse. pain today is worst in the periumbilical/epigasstric area. He denies nausea or vomiting. He has ambulated a bit. He did pass a soft bowel movement yesterday. Denies fevers of chills <Clive Seo PA-C - Last Filed: 07/21/25 09:32> Physical Exam Vital Signs: Vital Signs: Last Vital Signs Temp 98.2 F 07/21/25 07:17 Pulse 71 07/21/25 07:17 Resp 18 07/21/25 07:17 BP 154/72 H 07/21/25 07:17 Pulse Ox 94 07/21/25 07:17 O2 Del Method Room Air 07/21/25 07:17 BMI result Body Mass Index 38.0 <Clive Seo PA-C - Last Filed: 07/21/25 09:32> Const: General: comfortable and no acute distress <Clive Seo PA-C - Last Filed: 07/21/25 09:32> Orientation/consciousness: patient oriented x3 <FELICIA Blackman Last Filed: 07/21/25 09:32> Resp: Effort & Inspection: normal respiratory effort and able to speak in complete sentences <Clive Seo PA-C - Last Filed: 07/21/25 09:32> GI: Inspection: No distended <FELICIA Blackman Last Filed: 07/21/25 09:32> Palpation (GI): Soft to palpation, not firm, Tenderness to palpation present (GI) (tenderness throughout, focus in epigastric and periumbilical.) and Guarding due to palpation present (GI) (voluntary) other (epigastric and periumbilical) <FELICIA Blackman Last Filed: 07/21/25 09:32> Neuro: General: patient oriented x3 <FELICIA Blackman Last Filed: 07/21/25 09:32> Objective Data Active Medications Acetaminophen (Acetaminophen 325 Mg Tablet) 650 mg PO Q6H PRN PRN Reason: Pain, Mild 1-3,fever,headache Aspirin (Aspirin Enteric Coated 81 Mg Tablet.Dr) 81 mg PO DAILY [facility] Last Admin: 07/21/25 07:22 Dose: 81 mg Documented By: KERWIN Atorvastatin Calcium (Atorvastatin Calcium 80 Mg Tablet) 80 mg PO BEDTIME [facility] Last Admin: 07/20/25 20:19 Dose: 80 mg Documented By: MIKY Ceftriaxone Sodium (Ceftriaxone Sodium 1 Gm Vial) 1 gm IVPUSH Q24H [facility] Last Admin: 07/20/25 21:49 Dose: 1 gm Documented By: MIKY Dextrose (Dextrose 50 % 25 Gm/50 Ml Syringe) 25 gm IVPUSH Q15M PRN; Protocol PRN Reason: per Hypoglycemia Standing Ord. Ezetimibe (Ezetimibe 10 Mg Tablet) 10 mg PO BEDTIME [facility] Last Admin: 07/20/25 20:19 Dose: 10 mg Documented By: MIKY Furosemide (Furosemide 20 Mg Tablet) 20 mg PO DAILY [facility]; Protocol Last Admin: 07/21/25 07:21 Dose: 20 mg Documented By: KERWIN Gabapentin (Gabapentin 300 Mg Capsule) 300 mg PO TID [facility] Last Admin: 07/21/25 07:23 Dose: 300 mg Documented By: KERWIN Glucose (Glucose Gel 15 Gm Gel..Gram.) 15 gm PO Q15M PRN; Protocol PRN Reason: per Hypoglycemia Standing Ord. Heparin Sodium (Porcine) (Heparin Sodium,Porcine 5,000 Unit/Ml Vial) 4,500 unit 40 unit/kg (4500 unit) IVPUSH PROTOCOL BOLUS PRN; Protocol PRN Reason: 40 unit/kg - Heparin Protocol Heparin Sodium (Porcine) (Heparin Sodium,Porcine 5,000 Unit/Ml Vial) 9,100 unit 80 unit/kg (9100 unit) IVPUSH PROTOCOL BOLUS PRN; Protocol PRN Reason: 80 unit/kg - Heparin Protocol Hydromorphone HCl (Hydromorphone Hcl 1 Mg/Ml Syringe) 1 mg IVPUSH Q4H PRN; Protocol PRN Reason: Pain, Severe (Pain Scale 7-10) Last Admin: 07/21/25 07:21 Dose: 1 mg Documented By: KERWIN Erythromycin Lactobionate 250 (mg/ Sodium Chloride) 100 mls @ 100 mls/hr IV ONCE [facility] Last Infusion: 07/19/25 16:02 Dose: Infused Documented By: SRAVANI Lactated Ringer's (Lr) 1,000 mls @ 150 mls/hr IVCONT .Q6H40M [facility] Last Infusion: 07/21/25 06:07 Dose: 0 mls/hr Documented By: MIKY Metronidazole (Flagyl) 500 mg in 100 mls @ 100 mls/hr IV Q8H [facility] Last Admin: 07/21/25 06:06 Dose: 100 mls/hr Documented By: MIKY Heparin Sodium/Sodium Chloride (Heparin Sodium,Porcine/1/2ns) 25,000 unit in 250 mls @ 0 mls/hr IVCONT .Q0M [facility]; Protocol Last Titration: 07/21/25 02:39 Dose: 8 units/kg/hr, 9.07 mls/hr Documented By: MIKY Co-signed By: GABINO Insulin Human Lispro (Insulin Lispro 100 Unit/Ml 3 Ml Vial) 0 unit SUBCUT Q6H [facility]; Protocol Last Admin: 07/21/25 06:30 Dose: Not Given Documented By: MIKY Non-Admin Reason: NPO Isosorbide Mononitrate (Isosorbide Mononitrate 30 Mg Tab.Er.24h) 30 mg PO DAILY [facility]; Protocol Last Admin: 07/21/25 07:22 Dose: 30 mg Documented By: KERWIN Loratadine (Loratadine 10 Mg Tablet) 10 mg PO DAILY [facility] Last Admin: 07/21/25 07:24 Dose: 10 mg Documented By: KERWIN Losartan Potassium (Losartan Potassium 25 Mg Tablet) 25 mg PO DAILY [facility]; Protocol Last Admin: 07/21/25 07:23 Dose: 25 mg Documented By: KERWIN Melatonin (Melatonin 3 Mg Tablet) 6 mg PO BEDTIME PRN PRN Reason: Insomnia Metoclopramide HCl (Metoclopramide Hcl 10 Mg Tablet) 10 mg PO Q8H PRN PRN Reason: Nausea and Vomiting Last Admin: 07/20/25 14:11 Dose: 10 mg Documented By: KERWIN Metoprolol Succinate (Metoprolol Succinate Er 25 Mg Tab.Er.24h) 25 mg PO DAILY [facility]; Protocol Last Admin: 07/21/25 07:24 Dose: 25 mg Documented By: KERWIN Omeprazole (Omeprazole 20 Mg Capsule.Dr) 20 mg PO BID@0630,1630 [facility] Last Admin: 07/21/25 07:23 Dose: 20 mg Documented By: KERWIN Ondansetron HCl (Ondansetron Hcl 4 Mg/2 Ml Vial) 4 mg IVPUSH Q6H PRN PRN Reason: Nausea and Vomiting Last Admin: 07/21/25 07:21 Dose: 4 mg Documented By: KERWIN Pantoprazole Sodium (Pantoprazole Sodium 40 Mg/10 Ml Vial) 40 mg IVPUSH DAILY@0630 [facility] Last Admin: 07/21/25 06:06 Dose: 40 mg Documented By: MIKY Sodium Chloride (0.9 % Sodium Chloride Flush 3 Ml Syringe) [facility] Last Admin: 07/21/25 07:25 Dose: Not Given Documented By: KERWIN Non-Admin Reason: IV Running Sodium Chloride (0.9 % Sodium Chloride Flush 3 Ml Syringe) 3 ml IVFLUSH [facility] Last Admin: 07/21/25 07:25 Dose: Not Given Documented By: KERWIN Non-Admin Reason: IV Running Venlafaxine HCl (Venlafaxine Hcl 25 Mg Tablet) 50 mg PO BID [facility] Last Admin: 07/21/25 07:22 Dose: 50 mg Documented By: KERWIN <Clive Seo PA-C - Last Filed: 07/21/25 09:32> Labs CBC & Chem 7: 07/21/25 08:19 07/21/25 08:19 <Clive Seo PA-C - Last Filed: 07/21/25 09:32> Labs: Laboratory Results - last 24 hr 07/20/25 07/20/25 07/20/25 07:44 11:22 14:03 Hold Purple Top aPTT Heparin Protocol 37.4 L D 63.4 D POC Glucose 199 H 07/20/25 07/20/25 07/20/25 18:02 19:46 23:43 Hold Purple Top SEE NOTE aPTT Heparin Protocol 81.6 H D POC Glucose 170 H 167 H 07/21/25 07/21/25 02:20 06:26 Hold Purple Top aPTT Heparin Protocol 56.8 D POC Glucose 167 H <Clive Seo PA-C - Last Filed: 07/21/25 09:32> Procedures Date of Service Date of Service: 07/21/25 <Clive Seo PA-C - Last Filed: 07/21/25 09:32> 07/21/25 <Derrick Perkins MD - Last Filed: 07/21/25 08:21> Progress Note: A&P Assessment and plan (1) Ischemic colitis: Status: Acute <Clive Seo PA-C - Last Filed: 07/21/25 09:32> Assessment and Plan: Feels ?a little better? No events overnight Passing flatus and BMs Abdomen very soft, benign, nondistended, vague tenderness diffusely Plan to start on clear liquids today Encouraged to ambulate Seen and examined independently Currently on heparin drip <Derrick Perkins MD - Last Filed: 07/21/25 08:21> Assessment and Plan: 64 year old male with a history of hypertension, gastroparesis, class 1 obesity, CAD, paroxysmal AFib, insulin-dependent diabetes and diabetic neuropathy, admitted for ischemic colitis. Managing conservatively currently with bowel rest, anticoagulation. Today he feels about the same as yesterday, pain now 8/10. He denies nausea and vomiting, he did pass a moderate sized bowel movement yesterday, soft, non bloody. On exam the abdomen is soft, very tender in the epigastric and periumbilical area. non distended. AM labs are pending. Pt was seen by GI, recommended avoiding scope due to risk of perforation, vasodilator like trental or pletil. No plan for surgical intervention at this time Bowel rest, will trial clear liquid diet today heparin drip per protocol serial abdominal exams recommend increasing ambulation <Clive Seo PA-C - Last Filed: 07/21/25 09:32> Time Spent With Patient Time: Total time managing care of this patient today ____ minutes. <Clive Seo PA-C - Last Filed: 07/21/25 09:32> Quality Stroke Does the patient have a stroke diagnosis?: No <Clive Seo PA-C - Last Filed: 07/21/25 09:32> VTE Prior VTE?: No <Clive Soe PA-C - Last Filed: 07/21/25 09:32> VTE Risk Level:: Medical - moderate - high <Clive Seo PA-C - Last Filed: 07/21/25 09:32> VTE Device Contraindication: N/A - Device Ordered <Clive Seo PA-C - Last Filed: 07/21/25 09:32> VTE Drug Contraindication: N/A - Med Ordered <Clive Seo PA-C - Last Filed: 07/21/25 09:32>
[2025-07-21 08:30] LABS: Hematocrit 33.4 % (42.0-52.0); Hemoglobin 11.5 g/dl (14.0-18.0); Mean Corpuscular HGB Conc 34.4 g/dl (31.0-36.0); Mean Corpuscular Hemoglobin 29.5 pg (27.0-33.0); Mean Corpuscular Volume 85.6 fL (80.0-98.0); NRBC Abs Auto 0.000 X10*3/uL (0.0-0.012); NRBC Pct Auto 0.0 /100WBC (0.0-0.2); Platelet Count 219 X10*3/uL (160-400); Red Blood Count 3.90 X10*6/uL (4.60-5.80); White Blood Count 10.1 X10*3/uL (4.8-10.8)
[2025-07-21 08:38] LABS: PTT Heparin Drip 62.6 SEC (53-77.9)
[2025-07-21 08:50] LABS: Anion Gap 9 (12-20); Blood Urea Nitrogen 8 mg/dL (9-16); Calcium 8.3 mg/dL (8.4-10.2); Carbon Dioxide 26 mmol/L (22-29); Chloride 110 mmol/L (96-108); Creatinine Clr Calc Pharmacy 160.0; Estimated Glomerular Filt Rate > 60; Potassium 3.7 mmol/L (3.3-5.1); Sodium 141 mmol/L (135-145)
--- NOTE | 2025-07-21 09:52 | P.PNGI_ITS ---
Subjective Subjective Date of Service: 07/21/25 Interval History: still has abdo pain poor appetite passign stools no nausea or vomiting Critical Care Time (minutes): 0 Physical Exam 2 Exam: Exam: EXAM: GENERAL: The patient is well developed and nontoxic. VITAL SIGNS:see workflow HEENT: Nonicteric sclerae, PERRLA, EOMI. Oropharynx clear. Moist mucous membranes. Conjunctivae appear well perfused. No thyroid mass. CHEST: Chest wall is nontender. HEART: Regular rate and rhythm without murmurs. LUNGS: Clear to auscultation bilaterally. ABDOMEN: Soft, positive bowel sounds, mildly tender RLQ, no organomegaly.no flank tenderness SKIN: No rash, no excessive bruising, petechiae, or purpura. NEUROLOGIC: Cranial nerves II-XII intact without motor/sensory deficit. Psych: normal affect Vital Signs: Vital Signs: Last Vital Signs Temp 98.2 F 07/21/25 07:17 Pulse 71 07/21/25 07:17 Resp 18 07/21/25 07:17 BP 154/72 H 07/21/25 07:17 Pulse Ox 94 07/21/25 07:17 O2 Del Method Room Air 07/21/25 07:17 BMI result Body Mass Index 38.0 Objective Data Labs 07/21/25 08:19 07/21/25 08:19 Labs: Laboratory Results - last 24 hr 07/20/25 07/20/25 07/20/25 11:22 14:03 18:02 WBC RBC Hgb Hct MCV MCH MCHC RDW Plt Count MPV Absolute Nucleated RBC Nucleated RBC % (auto) Hold Purple Top aPTT Heparin Protocol 63.4 D Sodium Potassium Chloride Carbon Dioxide Anion Gap BUN Creatinine Estim Creat Clear Calc Estimated GFR POC Glucose 199 H 170 H Random Glucose Calcium 07/20/25 07/20/25 07/21/25 19:46 23:43 02:20 WBC RBC Hgb Hct MCV MCH MCHC RDW Plt Count MPV Absolute Nucleated RBC Nucleated RBC % (auto) Hold Purple Top SEE NOTE aPTT Heparin Protocol 81.6 H D 56.8 D Sodium Potassium Chloride Carbon Dioxide Anion Gap BUN Creatinine Estim Creat Clear Calc Estimated GFR POC Glucose 167 H Random Glucose Calcium 07/21/25 07/21/25 06:26 08:19 WBC 10.1 RBC 3.90 L Hgb 11.5 L Hct 33.4 L MCV 85.6 MCH 29.5 MCHC 34.4 RDW 14.0 Plt Count 219 MPV 9.8 Absolute Nucleated RBC 0.000 Nucleated RBC % (auto) 0.0 Hold Purple Top aPTT Heparin Protocol 62.6 Sodium 141 Potassium 3.7 Chloride 110 H Carbon Dioxide 26 Anion Gap 9 L BUN 8 L Creatinine 0.57 Estim Creat Clear Calc 160.0 Estimated GFR > 60 POC Glucose 167 H Random Glucose 172 H Calcium 8.3 L D Procedures Date of Service Date of Service: 07/21/25 Progress Note: A&P Assessment and plan (1) Ischemic colitis: Status: Acute Plan 1/ Right sided ischemic colitis, pain unimproved, may jsut be lag in improvement PLAN: 1/ consider repeat imaging if ongoing pain 2/ consider adding trental, or pletil to see if helps Time Spent With Patient Time: Total time managing care of this patient today ____ minutes. Quality Stroke Does the patient have a stroke diagnosis?: No VTE Prior VTE?: No VTE Risk Level:: Medical - moderate - high VTE Device Contraindication: N/A - Device Ordered VTE Drug Contraindication: N/A - Med Ordered
[2025-07-21 11:52] VITALS: BP 130/64; PULSE 69; RESP 16; TEMP 36.7; O2SAT 96
[2025-07-21 11:56] LABS: Glucose, Whole Blood 181 mg/dL (60-115)
[2025-07-21 15:41] VITALS: BP 121/58; PULSE 65; RESP 18; TEMP 36.8; O2SAT 98
--- NOTE | 2025-07-21 16:19 | HO.VASCPN ---
Subjective Subjective Date of Service: 07/21/25 Patient reports: no new complaints, feels better and pain is less Interval history: Patient seen and examined. He reports that his abdominal pain has improved. He is tolerating clears now for routine follow-up. Physical Exam Vital Signs: Vital Signs: Last Vital Signs Temp 98.2 F 07/21/25 15:41 Pulse 65 07/21/25 15:41 Resp 18 07/21/25 15:41 BP 121/58 L 07/21/25 15:41 Pulse Ox 98 07/21/25 15:41 O2 Del Method Room Air 07/21/25 15:41 BMI result Body Mass Index 38.0 Const: General: cooperative, healthy appearing and comfortable Orientation/consciousness: oriented to person, oriented to place and oriented to time HEENT: Head: Yes normal to inspection Neck: Neck: Yes normal visual inspection Carotids: no bruits Chest: Chest palpation & inspection: normal inspection of the chest Resp: Effort & Inspection: normal respiratory effort and able to speak in complete sentences Auscultation: clear to auscultation bilaterally, no crackles, no rales, no rhonchi and no wheezes Cardio: Rate: regular rate Rhythm: regular rhythm Heart sounds: S1 normal heart sound present and S2 normal heart sound present Bruits: no carotid bruits Peripheral pulses: Peripheral pulses 2+ throughout GI: Other: Abdomen soft diffusely tender no rebound no guarding Inspection: Yes normal to inspection Skin: Wounds: no wounds Hair: normal Neuro: General: oriented to person, oriented to place and oriented to time Cranial nerves: Yes CN's II-XII intact bilaterally and Yes Normal hearing present Cognition (Neuro): normal cognition Motor exam (neuro): 5/5 motor strength present throughout Extrem: Other: venous exam: No significant superficial varicosities or spider telangiectasias, minimal edema General: No clubbing, No cyanosis and No edema Psych: Appearance: grossly normal Mental Status: mental status grossly normal Speech and movement: Normal speech and movement present Progress Note: A&P Assessment and plan (1) Ischemic colitis: Status: Acute Assessment and Plan: In general appears to be doing significantly better. Would recommend stopping anticoagulants as all 3 major access is are patent and its terminal vessel disease. Would continue with medical and surgical management of his abdominal pain. We will continue to monitor his status with you. Thank you for allowing us to assist in his care. Time Spent With Patient Time: Total time managing care of this patient today ____ minutes. Procedures Date of Service Date of Service: 07/21/25 Quality Stroke Does the patient have a stroke diagnosis?: No VTE Prior VTE?: No VTE Risk Level:: Medical - moderate - high VTE Device Contraindication: N/A - Device Ordered VTE Drug Contraindication: N/A - Med Ordered
--- NOTE | 2025-07-21 17:02 | P.PNIM_ITS ---
Subjective Subjective Date of Service: 07/21/25 Interval History: Pain better than yesterday Soft bowel movement yesterday No N/V Tolerating clear liquid diet Review of Systems Review of Systems: Yes all other systems are reviewed and are negative Physical Exam 2 Exam: Exam: General: AOx3, no acute distress Resp: CTA bilaterally CVS: S1, S2, RRR GI: +BS, no distention, suprapubic and LLQ tenderness Skin: Warm, dry Neuro: Cranial nerves II-XII grossly intact bilaterally. Motor grossly intact bilaterally Extremities: No edema Psych: Appropriate affect Vital Signs: Vital Signs: Last Vital Signs Temp 98.2 F 07/21/25 15:41 Pulse 65 07/21/25 15:41 Resp 18 07/21/25 15:41 BP 121/58 L 07/21/25 15:41 Pulse Ox 98 07/21/25 15:41 O2 Del Method Room Air 07/21/25 15:41 BMI result Body Mass Index 38.0 Objective Data Active Medications Acetaminophen (Acetaminophen 325 Mg Tablet) 650 mg PO Q6H PRN PRN Reason: Pain, Mild 1-3,fever,headache Aspirin (Aspirin Enteric Coated 81 Mg Tablet.) 81 mg PO DAILY [facility] Last Admin: 07/21/25 07:22 Dose: 81 mg Documented By: KERWIN Atorvastatin Calcium (Atorvastatin Calcium 80 Mg Tablet) 80 mg PO BEDTIME [facility] Last Admin: 07/20/25 20:19 Dose: 80 mg Documented By: MIKY Ceftriaxone Sodium (Ceftriaxone Sodium 1 Gm Vial) 1 gm IVPUSH Q24H [facility] Last Admin: 07/20/25 21:49 Dose: 1 gm Documented By: MIKY Dextrose (Dextrose 50 % 25 Gm/50 Ml Syringe) 25 gm IVPUSH Q15M PRN; Protocol PRN Reason: per Hypoglycemia Standing Ord. Ezetimibe (Ezetimibe 10 Mg Tablet) 10 mg PO BEDTIME [facility] Last Admin: 07/20/25 20:19 Dose: 10 mg Documented By: MIKY Furosemide (Furosemide 20 Mg Tablet) 20 mg PO DAILY [facility]; Protocol Last Admin: 07/21/25 07:21 Dose: 20 mg Documented By: KERWIN Gabapentin (Gabapentin 300 Mg Capsule) 300 mg PO TID [facility] Last Admin: 07/21/25 14:41 Dose: 300 mg Documented By: KERWIN Glucose (Glucose Gel 15 Gm Gel..Gram.) 15 gm PO Q15M PRN; Protocol PRN Reason: per Hypoglycemia Standing Ord. Heparin Sodium (Porcine) (Heparin Sodium,Porcine 5,000 Unit/Ml Vial) 4,500 unit 40 unit/kg (4500 unit) IVPUSH PROTOCOL BOLUS PRN; Protocol PRN Reason: 40 unit/kg - Heparin Protocol Stop: 07/22/25 07:00 Heparin Sodium (Porcine) (Heparin Sodium,Porcine 5,000 Unit/Ml Vial) 9,100 unit 80 unit/kg (9100 unit) IVPUSH PROTOCOL BOLUS PRN; Protocol PRN Reason: 80 unit/kg - Heparin Protocol Stop: 07/22/25 07:00 Hydromorphone HCl (Hydromorphone Hcl 1 Mg/Ml Syringe) 1 mg IVPUSH Q4H PRN; Protocol PRN Reason: Pain, Severe (Pain Scale 7-10) Last Admin: 07/21/25 16:35 Dose: 1 mg Documented By: KERWIN Erythromycin Lactobionate 250 (mg/ Sodium Chloride) 100 mls @ 100 mls/hr IV ONCE [facility] Last Infusion: 07/19/25 16:02 Dose: Infused Documented By: SRAVANI Lactated Ringer's (Lr) 1,000 mls @ 150 mls/hr IVCONT .Q6H40M [facility] Last Admin: 07/21/25 10:13 Dose: 150 mls/hr Documented By: VERITO Metronidazole (Flagyl) 500 mg in 100 mls @ 100 mls/hr IV Q8H [facility] Last Admin: 07/21/25 14:41 Dose: 100 mls/hr Documented By: KERWIN Heparin Sodium/Sodium Chloride (Heparin Sodium,Porcine/1/2ns) 25,000 unit in 250 mls @ 0 mls/hr IVCONT .Q0M [facility]; Protocol Stop: 07/22/25 07:00 Last Titration: 07/21/25 08:53 Dose: 8 units/kg/hr, 9.07 mls/hr Documented By: VERITO Co-signed By: DUNIA Insulin Human Lispro (Insulin Lispro 100 Unit/Ml 3 Ml Vial) 0 unit SUBCUT Q6H [facility]; Protocol Last Admin: 07/21/25 12:09 Dose: Not Given Documented By: VERITO Non-Admin Reason: Patient Refused Isosorbide Mononitrate (Isosorbide Mononitrate 30 Mg Tab.Er.24h) 30 mg PO DAILY [facility]; Protocol Last Admin: 07/21/25 07:22 Dose: 30 mg Documented By: KERWIN Loratadine (Loratadine 10 Mg Tablet) 10 mg PO DAILY [facility] Last Admin: 07/21/25 07:24 Dose: 10 mg Documented By: KERWIN Losartan Potassium (Losartan Potassium 25 Mg Tablet) 25 mg PO DAILY [facility]; Protocol Last Admin: 07/21/25 07:23 Dose: 25 mg Documented By: KERWIN Melatonin (Melatonin 3 Mg Tablet) 6 mg PO BEDTIME PRN PRN Reason: Insomnia Metoclopramide HCl (Metoclopramide Hcl 10 Mg Tablet) 10 mg PO Q8H PRN PRN Reason: Nausea and Vomiting Last Admin: 07/21/25 10:56 Dose: 10 mg Documented By: VERITO Metoprolol Succinate (Metoprolol Succinate Er 25 Mg Tab.Er.24h) 25 mg PO DAILY [facility]; Protocol Last Admin: 07/21/25 07:24 Dose: 25 mg Documented By: KERWIN Ondansetron HCl (Ondansetron Hcl 4 Mg/2 Ml Vial) 4 mg IVPUSH Q6H PRN PRN Reason: Nausea and Vomiting Last Admin: 07/21/25 16:36 Dose: 4 mg Documented By: KERWIN Pantoprazole Sodium (Pantoprazole Sodium 40 Mg/10 Ml Vial) 40 mg IVPUSH DAILY@0630 [facility] Last Admin: 07/21/25 06:06 Dose: 40 mg Documented By: MIKY Sodium Chloride (0.9 % Sodium Chloride Flush 3 Ml Syringe) 3 ml IVFLUSH [facility] Last Admin: 07/21/25 14:41 Dose: Not Given Documented By: KERWIN Non-Admin Reason: IV Running Sodium Chloride (0.9 % Sodium Chloride Flush 3 Ml Syringe) 3 ml IVFLUSH [facility] Last Admin: 07/21/25 15:17 Dose: Not Given Documented By: KERWIN Non-Admin Reason: IV Running Venlafaxine HCl (Venlafaxine Hcl 25 Mg Tablet) 50 mg PO BID [facility] Last Admin: 07/21/25 07:22 Dose: 50 mg Documented By: KERWIN Labs 07/21/25 08:19 07/21/25 08:19 Labs: Laboratory Results - last 24 hr 07/20/25 07/20/25 07/20/25 18:02 19:46 23:43 MCV MCH MCHC RDW Plt Count MPV Absolute Nucleated RBC Nucleated RBC % (auto) Hold Purple Top SEE NOTE aPTT Heparin Protocol 81.6 H D Anion Gap Estim Creat Clear Calc Estimated GFR POC Glucose 170 H 167 H Random Glucose Calcium 07/21/25 07/21/25 07/21/25 02:20 06:26 08:19 MCV 85.6 MCH 29.5 MCHC 34.4 RDW 14.0 Plt Count 219 MPV 9.8 Absolute Nucleated RBC 0.000 Nucleated RBC % (auto) 0.0 Hold Purple Top aPTT Heparin Protocol 56.8 D 62.6 Anion Gap 9 L Estim Creat Clear Calc 160.0 Estimated GFR > 60 POC Glucose 167 H Random Glucose 172 H Calcium 8.3 L D 07/21/25 11:49 MCV MCH MCHC RDW Plt Count MPV Absolute Nucleated RBC Nucleated RBC % (auto) Hold Purple Top aPTT Heparin Protocol Anion Gap Estim Creat Clear Calc Estimated GFR POC Glucose 181 H Random Glucose Calcium Assessment and Plan (1) Ischemic colitis: Status: Acute Plan Patient is a 64-year-old male admitted by general surgery for ischemic colitis on CT, hospitalist consultation placed for medical management Ischemic colitis on CT - plan per general and vascular surgery - IVF, tolerating clear liquid diet - prophylactic antibiotics: Ceftriaxone and Flagyl - heparin drip - cardiology consult will be needed if pt undergoes surgery Acute lactic acidosis, improved with IVF, likely dehydration HTN - continue metoprolol and losartan - BP currently well controlled CAD - statin, aspirin, Imdur, ezetimibe Paroxysmal AFib - metoprolol - hold Xarelto, on heparin drip Insulin-dependent diabetes - POCs acceptably-controlled - sliding scale insulin per standard protocol now on clear diet - hold lantus for now, continue once diet advanced to solids Diabetic neuropathy - gabapentin Class 3 obesity - weight loss encouraged Full code Will continue to follow along with you. Quality Stroke Does the patient have a stroke diagnosis?: No VTE Prior VTE?: No VTE Risk Level:: Medical - moderate - high VTE Device Contraindication: N/A - Device Ordered VTE Drug Contraindication: N/A - Med Ordered
[2025-07-21 18:13] LABS: Glucose, Whole Blood 168 mg/dL (60-115)
--- NOTE | 2025-07-21 18:50 | PM.EVENT ---
Event Note Date of Service: 07/22/25 Event Note: Late afternoon rounds Complains of pain but says this is not worse He had ambulated earlier Tolerating clear liquids well Passing flatus abdomen very soft and benign, significant tenderness No fever Stable vital sign Discussed with vascular service - heparin drip/anticoagulation unlikely to be beneficial at this time as vessels are patent Plan to stop heparin drip tomorrow Possibly advance diet tomorrow as well Time Spent With Patient Time: Total time managing care of this patient today ____ minutes.
[2025-07-21 19:38] VITALS: BP 142/64; PULSE 70; RESP 19; TEMP 36.4; O2SAT 95
[2025-07-21] MEDS: 0.9 % Sodium Chloride Flush 3 ML SYRINGE IVFLUSH ×2 (20:29→22:11)
[2025-07-21 20:40] LABS: Glucose, Whole Blood 156 mg/dL (60-115)
[2025-07-21] MEDS: Heparin Sodium,Porcine/1/2NS 25,000 UNIT/250 ML IV.SOLN 9.07 UNIT IVCONT (22:12)
[2025-07-21 23:29] VITALS: BP 148/64; PULSE 70; RESP 18; TEMP 36.6; O2SAT 98
[2025-07-22 03:13] VITALS: BP 121/59; PULSE 74; RESP 18; TEMP 36.7; O2SAT 99
[2025-07-22] MEDS: metroNIDAZOLE/NS 500 MG/100 ML PIGGYBACK 100 MG IV (05:22)
[2025-07-22 06:50] LABS: PTT Heparin Drip 53.8 SEC (53-77.9)
[2025-07-22 07:43] LABS: Glucose, Whole Blood 145 mg/dL (60-115)
--- NOTE | 2025-07-22 07:49 | P.PNGS_ITS ---
Subjective Subjective Date of Service: 07/22/25 <Clive Seo PA-C - Last Filed: 07/22/25 07:58> 07/22/25 <Derrick Perkins MD - Last Filed: 07/22/25 09:20> Interval history: Feels a little better today, pain mostly located in the center of the abdomen. Still experiencing some nausea, no further episodes of vomiting. He has had some of the clear liquids, tolerating with some mild nausea, has not made his symptoms worse. Passing flatus, no bowel movement. Has been ambulating minimally in the room. <Clive Seo PA-C - Last Filed: 07/22/25 07:58> Physical Exam 2 Vital Signs: Vital Signs: Last Vital Signs Temp 98.1 F 07/22/25 03:13 Pulse 74 07/22/25 03:13 Resp 18 07/22/25 03:13 BP 121/59 L 07/22/25 03:13 Pulse Ox 99 07/22/25 03:13 O2 Del Method Room Air 07/22/25 03:13 BMI result Body Mass Index 38.0 <Clive Seo PA-C - Last Filed: 07/22/25 07:58> Const: General: comfortable and no acute distress <FELICIA Blackman Last Filed: 07/22/25 07:58> Orientation/consciousness: patient oriented x3 <FELICIA Blackman Last Filed: 07/22/25 07:58> Resp: Effort & Inspection: normal respiratory effort and able to speak in complete sentences <Clive Seo PA-C - Last Filed: 07/22/25 07:58> GI: Inspection: No distended <FELICIA Blackman Last Filed: 07/22/25 07:58> Palpation (GI): Soft to palpation, not firm, Tenderness to palpation present (GI) in the epigastrum and periumbilically and not rigid <FELICIA Blackman Last Filed: 07/22/25 07:58> Percussion: Yes normal to percussion <FELICIA Blackman Last Filed: 07/22/25 07:58> Neuro: General: patient oriented x3 <FELICIA Blackman Last Filed: 07/22/25 07:58> Objective Data Active Medications Acetaminophen (Acetaminophen 325 Mg Tablet) 650 mg PO Q6H PRN PRN Reason: Pain, Mild 1-3,fever,headache Aspirin (Aspirin Enteric Coated 81 Mg Tablet.Dr) 81 mg PO DAILY [facility] Last Admin: 07/21/25 07:22 Dose: 81 mg Documented By: KERWIN Atorvastatin Calcium (Atorvastatin Calcium 80 Mg Tablet) 80 mg PO BEDTIME [facility] Last Admin: 07/21/25 20:29 Dose: 80 mg Documented By: PERCY Ceftriaxone Sodium (Ceftriaxone Sodium 1 Gm Vial) 1 gm IVPUSH Q24H [facility] Last Admin: 07/21/25 20:40 Dose: 1 gm Documented By: PERCY Dextrose (Dextrose 50 % 25 Gm/50 Ml Syringe) 25 gm IVPUSH Q15M PRN; Protocol PRN Reason: per Hypoglycemia Standing Ord. Ezetimibe (Ezetimibe 10 Mg Tablet) 10 mg PO BEDTIME [facility] Last Admin: 07/21/25 20:29 Dose: 10 mg Documented By: PERCY Furosemide (Furosemide 20 Mg Tablet) 20 mg PO DAILY [facility]; Protocol Last Admin: 07/21/25 07:21 Dose: 20 mg Documented By: KERWIN Gabapentin (Gabapentin 300 Mg Capsule) 300 mg PO TID [facility] Last Admin: 07/21/25 20:29 Dose: 300 mg Documented By: PERCY Glucose (Glucose Gel 15 Gm Gel..Gram.) 15 gm PO Q15M PRN; Protocol PRN Reason: per Hypoglycemia Standing Ord. Hydromorphone HCl (Hydromorphone Hcl 1 Mg/Ml Syringe) 1 mg IVPUSH Q4H PRN; Protocol PRN Reason: Pain, Severe (Pain Scale 7-10) Last Admin: 07/22/25 05:23 Dose: 1 mg Documented By: PERCY Erythromycin Lactobionate 250 (mg/ Sodium Chloride) 100 mls @ 100 mls/hr IV ONCE [facility] Last Infusion: 07/19/25 16:02 Dose: Infused Documented By: SRAVANI Insulin Human Lispro (Insulin Lispro 100 Unit/Ml 3 Ml Vial) 0 unit SUBCUT QIDACHS [facility]; Protocol Last Admin: 07/21/25 21:02 Dose: 2 unit Documented By: PERCY Isosorbide Mononitrate (Isosorbide Mononitrate 30 Mg Tab.Er.24h) 30 mg PO DAILY [facility]; Protocol Last Admin: 07/21/25 07:22 Dose: 30 mg Documented By: KERWIN Loratadine (Loratadine 10 Mg Tablet) 10 mg PO DAILY [facility] Last Admin: 07/21/25 07:24 Dose: 10 mg Documented By: KERWIN Losartan Potassium (Losartan Potassium 25 Mg Tablet) 25 mg PO DAILY [facility]; Protocol Last Admin: 07/21/25 07:23 Dose: 25 mg Documented By: KERWIN Melatonin (Melatonin 3 Mg Tablet) 6 mg PO BEDTIME PRN PRN Reason: Insomnia Metoclopramide HCl (Metoclopramide Hcl 10 Mg Tablet) 10 mg PO Q8H PRN PRN Reason: Nausea and Vomiting Last Admin: 07/21/25 10:56 Dose: 10 mg Documented By: VERITO Metoprolol Succinate (Metoprolol Succinate Er 25 Mg Tab.Er.24h) 25 mg PO DAILY [facility]; Protocol Last Admin: 07/21/25 07:24 Dose: 25 mg Documented By: KERWIN Metronidazole (Metronidazole 500 Mg Tablet) 500 mg PO Q8H [facility] Ondansetron HCl (Ondansetron Hcl 4 Mg/2 Ml Vial) 4 mg IVPUSH Q6H PRN PRN Reason: Nausea and Vomiting Last Admin: 07/22/25 01:16 Dose: 4 mg Documented By: PERCY Pantoprazole Sodium (Pantoprazole Sodium 40 Mg/10 Ml Vial) 40 mg IVPUSH DAILY@0630 [facility] Last Admin: 07/22/25 05:23 Dose: 40 mg Documented By: ANTOIC Sodium Chloride (0.9 % Sodium Chloride Flush 3 Ml Syringe) 3 ml IVFLUSH [facility] Last Admin: 07/21/25 22:11 Dose: 3 ml Documented By: ANTOIC Sodium Chloride (0.9 % Sodium Chloride Flush 3 Ml Syringe) 3 ml IVFLUSH [facility] Last Admin: 07/21/25 22:17 Dose: Not Given Documented By: ANTOIC Non-Admin Reason: IV Running Venlafaxine HCl (Venlafaxine Hcl 25 Mg Tablet) 50 mg PO BID [facility] Last Admin: 07/21/25 20:35 Dose: 50 mg Documented By: PERCY <Clive Seo PA-C - Last Filed: 07/22/25 07:58> Labs CBC & Chem 7: 07/21/25 08:19 07/21/25 08:19 <Clive Seo PA-C - Last Filed: 07/22/25 07:58> Labs: Laboratory Results - last 24 hr 07/21/25 07/21/25 07/21/25 08:19 11:49 18:09 MCV 85.6 MCH 29.5 MCHC 34.4 RDW 14.0 Plt Count 219 MPV 9.8 Absolute Nucleated RBC 0.000 Nucleated RBC % (auto) 0.0 aPTT Heparin Protocol 62.6 Anion Gap 9 L Estim Creat Clear Calc 160.0 Estimated GFR > 60 POC Glucose 181 H 168 H Random Glucose 172 H Calcium 8.3 L D 07/21/25 07/22/25 07/22/25 20:35 06:18 07:28 MCV MCH MCHC RDW Plt Count MPV Absolute Nucleated RBC Nucleated RBC % (auto) aPTT Heparin Protocol 53.8 Anion Gap Estim Creat Clear Calc Estimated GFR POC Glucose 156 H 145 H Random Glucose Calcium <Clive Seo PA-C - Last Filed: 07/22/25 07:58> Procedures Date of Service Date of Service: 07/22/25 <Clive Seo PA-C - Last Filed: 07/22/25 07:58> 07/22/25 <Derrick Perkins MD - Last Filed: 07/22/25 09:20> Progress Note: A&P Assessment and plan (1) Ischemic colitis: Status: Acute <Clive Seo PA-C - Last Filed: 07/22/25 07:58> Assessment and Plan: Describes abdominal pain Abdomen remains very soft and benign and unremarkable He has a very flat affect, difficult to evaluate subjectively Overall findings are very benign As per Dr. Piper of vascular, he does not need to be on a heparin drip or anticoagulation We will DC heparin drip Trial of full liquids Recommend ambulating more Seen and examined independently <Derrick Perkins MD - Last Filed: 07/22/25 09:20> Assessment and Plan: 64 year old male with a history of hypertension, gastroparesis, class 1 obesity, CAD, paroxysmal AFib, insulin-dependent diabetes and diabetic neuropathy, admitted for ischemic colitis. Managing conservatively currently with bowel rest, anticoagulation. Today he feels some day. He endorses nausea, no vomiting. No further bowel movements. On exam the abdomen is soft, tender in the epigastric and periumbilical area. non distended. Pt was seen by GI, recommended avoiding scope due to risk of perforation, vasodilator like trental or pletil. Vascular surgery recommended stopping anticoagulation given that the 3 major vessels are patent, we will stop heparin drip No plan for surgical intervention at this time. will trial full liquid diet today serial abdominal exams recommend increasing ambulation <Clive Seo PA-C - Last Filed: 07/22/25 07:58> Time Spent With Patient Time: Total time managing care of this patient today ____ minutes. <Clive Seo PA-C - Last Filed: 07/22/25 07:58> Quality Stroke Does the patient have a stroke diagnosis?: No <Clive Seo PA-C - Last Filed: 07/22/25 07:58> VTE Prior VTE?: No <Clive Seo PA-C - Last Filed: 07/22/25 07:58> VTE Risk Level:: Medical - moderate - high <Clive Seo PA-C - Last Filed: 07/22/25 07:58> VTE Device Contraindication: N/A - Device Ordered <Clive Seo PA-C - Last Filed: 07/22/25 07:58> VTE Drug Contraindication: N/A - Med Ordered <Clive Seo PA-C - Last Filed: 07/22/25 07:58>
[2025-07-22 08:00] VITALS: BP 163/70; PULSE 71; RESP 16; TEMP 36.1; O2SAT 93
[2025-07-22] MEDS: 0.9 % Sodium Chloride Flush 3 ML SYRINGE IVFLUSH ×4 (08:56→17:35)
[2025-07-22] MEDS: Metoprolol Succinate ER 25 MG TAB.ER.24H PO (09:29)
[2025-07-22] MEDS: Aspirin Enteric Coated 81 MG TABLET.DR PO (09:30)
[2025-07-22 11:21] LABS: Glucose, Whole Blood 138 mg/dL (60-115)
--- NOTE | 2025-07-22 11:55 | HO.VASCPN ---
Subjective Subjective Date of Service: 07/22/25 Patient reports: no new complaints and feels better Interval history: Patient seen and examined for questionable mesenteric ischemia. He reports that his abdominal discomfort has significantly improved. He is tolerating a clear liquid diet. He is being closely followed by the General surgery team and a has diet advanced. He actually reports some hunger as well. Now for vascular follow-up. Physical Exam Vital Signs: Vital Signs: Last Vital Signs Temp 97 F 07/22/25 08:00 Pulse 71 07/22/25 08:00 Resp 16 07/22/25 08:00 BP 163/70 H 07/22/25 08:00 Pulse Ox 93 07/22/25 08:00 O2 Del Method Room Air 07/22/25 08:00 BMI result Body Mass Index 38.0 Const: General: cooperative, healthy appearing and comfortable Orientation/consciousness: oriented to person, oriented to place and oriented to time HEENT: Head: Yes normal to inspection Neck: Neck: Yes normal visual inspection Carotids: no bruits Chest: Chest palpation & inspection: normal inspection of the chest Resp: Effort & Inspection: normal respiratory effort and able to speak in complete sentences Auscultation: clear to auscultation bilaterally, no crackles, no rales, no rhonchi and no wheezes Cardio: Rate: regular rate Rhythm: regular rhythm Heart sounds: S1 normal heart sound present and S2 normal heart sound present Bruits: no carotid bruits Peripheral pulses: Peripheral pulses 2+ throughout GI: Other: Abdomen soft diffusely tender no rebound no guarding good bowel sounds Inspection: Yes normal to inspection Skin: Wounds: no wounds Hair: normal Neuro: General: oriented to person, oriented to place and oriented to time Cranial nerves: Yes CN's II-XII intact bilaterally and Yes Normal hearing present Cognition (Neuro): normal cognition Motor exam (neuro): 5/5 motor strength present throughout Extrem: Other: venous exam: No significant superficial varicosities or spider telangiectasias, minimal edema General: No clubbing, No cyanosis and No edema Psych: Appearance: grossly normal Mental Status: mental status grossly normal Speech and movement: Normal speech and movement present Progress Note: A&P Assessment and plan (1) Ischemic colitis: Status: Acute Assessment and Plan: In short appears to be doing significantly better in terms of his abdominal discomfort. He is off anticoagulants for right now. Would continue medical workup. Advance diet as tolerated by General surgery team. We will peripherally follow with you. Thank you for allowing us to assist in his care. If there are any questions or concerns please do not hesitate to contact us. Time Spent With Patient Time: Total time managing care of this patient today ____ minutes. Procedures Date of Service Date of Service: 07/22/25 Quality Stroke Does the patient have a stroke diagnosis?: No VTE Prior VTE?: No VTE Risk Level:: Medical - moderate - high VTE Device Contraindication: N/A - Device Ordered VTE Drug Contraindication: N/A - Med Ordered
[2025-07-22 12:00] VITALS: BP 166/79; PULSE 77; RESP 16; TEMP 36.5; O2SAT 93
--- NOTE | 2025-07-22 12:44 | MHC.CM.PN ---
EMR REVIEWED. PT CONTINUES WITH NAUSEA, DIET WITH FULL LIQUIDS. CM WILL CONTINUE TO FOLLOW.
--- NOTE | 2025-07-22 14:29 | PM.EVENT ---
Event Note Date of Service: 07/22/25 Event Note: Seen on afternoon rounds According tenderness, has been asking for morphine Otherwise tolerating full liquids Passing flatus and BMs Stable vital signs Abdomen very soft, benign, no obvious tenderness The patient is a complains of abdominal pain and asked for morphine Objective findings are unremarkable Plan to advance diet tomorrow Time Spent With Patient Time: Total time managing care of this patient today ____ minutes.
[2025-07-22 15:24] VITALS: BP 142/67; PULSE 81; RESP 18; TEMP 36.5; O2SAT 94
[2025-07-22 16:02] LABS: Glucose, Whole Blood 139 mg/dL (60-115)
--- NOTE | 2025-07-22 16:18 | P.PNIM_ITS ---
Subjective Subjective Date of Service: 07/22/25 Interval History: Abdominal pain slightly better than yesterday Has still not had had a bowel movement Some nausea but no vomiting Diet will be advanced to full liquid Review of Systems Review of Systems: Yes all other systems are reviewed and are negative Physical Exam 2 Exam: Exam: General: AOx3, no acute distress Resp: CTA bilaterally CVS: S1, S2, RRR GI: +BS, no distention, soft. Mild suprapubic tenderness Skin: Warm, dry Neuro: Cranial nerves II-XII grossly intact bilaterally. Motor grossly intact bilaterally Extremities: No edema Psych: Appropriate affect Vital Signs: Vital Signs: Last Vital Signs Temp 97.7 F 07/22/25 15:24 Pulse 81 07/22/25 15:24 Resp 18 07/22/25 15:24 BP 142/67 H 07/22/25 15:24 Pulse Ox 94 07/22/25 15:24 O2 Del Method Room Air 07/22/25 15:24 BMI result Body Mass Index 38.0 Objective Data Active Medications Acetaminophen (Acetaminophen 325 Mg Tablet) 650 mg PO Q6H PRN PRN Reason: Pain, Mild 1-3,fever,headache Aspirin (Aspirin Enteric Coated 81 Mg Tablet.) 81 mg PO DAILY [facility] Last Admin: 07/22/25 09:30 Dose: 81 mg Documented By: ENMA Atorvastatin Calcium (Atorvastatin Calcium 80 Mg Tablet) 80 mg PO BEDTIME [facility] Last Admin: 07/21/25 20:29 Dose: 80 mg Documented By: PERCY Ceftriaxone Sodium (Ceftriaxone Sodium 1 Gm Vial) 1 gm IVPUSH Q24H [facility] Last Admin: 07/21/25 20:40 Dose: 1 gm Documented By: PERCY Dextrose (Dextrose 50 % 25 Gm/50 Ml Syringe) 25 gm IVPUSH Q15M PRN; Protocol PRN Reason: per Hypoglycemia Standing Ord. Ezetimibe (Ezetimibe 10 Mg Tablet) 10 mg PO BEDTIME [facility] Last Admin: 07/21/25 20:29 Dose: 10 mg Documented By: ANTHUGH Furosemide (Furosemide 20 Mg Tablet) 20 mg PO DAILY [facility]; Protocol Last Admin: 07/22/25 09:29 Dose: 20 mg Documented By: ENMA Gabapentin (Gabapentin 300 Mg Capsule) 300 mg PO TID [facility] Last Admin: 07/22/25 13:30 Dose: 300 mg Documented By: ENMA Glucose (Glucose Gel 15 Gm Gel..Gram.) 15 gm PO Q15M PRN; Protocol PRN Reason: per Hypoglycemia Standing Ord. Hydromorphone HCl (Hydromorphone Hcl 1 Mg/Ml Syringe) 1 mg IVPUSH Q4H PRN; Protocol PRN Reason: Pain, Severe (Pain Scale 7-10) Last Admin: 07/22/25 13:30 Dose: 1 mg Documented By: ENMA Erythromycin Lactobionate 250 (mg/ Sodium Chloride) 100 mls @ 100 mls/hr IV ONCE [facility] Last Infusion: 07/19/25 16:02 Dose: Infused Documented By: SRAVANI Insulin Human Lispro (Insulin Lispro 100 Unit/Ml 3 Ml Vial) 0 unit SUBCUT QIDACHS [facility]; Protocol Last Admin: 07/22/25 12:04 Dose: Not Given Documented By: ENMA Non-Admin Reason: No Insulin Coverage Isosorbide Mononitrate (Isosorbide Mononitrate 30 Mg Tab.Er.24h) 30 mg PO DAILY [facility]; Protocol Last Admin: 07/22/25 09:29 Dose: 30 mg Documented By: ENMA Loratadine (Loratadine 10 Mg Tablet) 10 mg PO DAILY [facility] Last Admin: 07/22/25 09:30 Dose: 10 mg Documented By: ENMA Losartan Potassium (Losartan Potassium 25 Mg Tablet) 25 mg PO DAILY [facility]; Protocol Last Admin: 07/22/25 09:29 Dose: 25 mg Documented By: ENMA Melatonin (Melatonin 3 Mg Tablet) 6 mg PO BEDTIME PRN PRN Reason: Insomnia Metoclopramide HCl (Metoclopramide Hcl 10 Mg Tablet) 10 mg PO Q8H PRN PRN Reason: Nausea and Vomiting Last Admin: 07/21/25 10:56 Dose: 10 mg Documented By: VERITO Metoprolol Succinate (Metoprolol Succinate Er 25 Mg Tab.Er.24h) 25 mg PO DAILY [facility]; Protocol Last Admin: 07/22/25 09:29 Dose: 25 mg Documented By: ENMA Metronidazole (Metronidazole 500 Mg Tablet) 500 mg PO Q8H [facility] Last Admin: 07/22/25 13:30 Dose: 500 mg Documented By: ENMA Ondansetron HCl (Ondansetron Hcl 4 Mg/2 Ml Vial) 4 mg IVPUSH Q6H PRN PRN Reason: Nausea and Vomiting Last Admin: 07/22/25 16:00 Dose: 4 mg Documented By: ENMA Pantoprazole Sodium (Pantoprazole Sodium 40 Mg/10 Ml Vial) 40 mg IVPUSH DAILY@0630 [facility] Last Admin: 07/22/25 05:23 Dose: 40 mg Documented By: ANTOIC Sodium Chloride (0.9 % Sodium Chloride Flush 3 Ml Syringe) 3 ml IVFLUSH [facility] Last Admin: 07/21/25 22:11 Dose: 3 ml Documented By: ANTOIC Sodium Chloride (0.9 % Sodium Chloride Flush 3 Ml Syringe) 3 ml IVFLUSH [facility] Last Admin: 07/22/25 08:56 Dose: 3 ml Documented By: ENMA Venlafaxine HCl (Venlafaxine Hcl 25 Mg Tablet) 50 mg PO BID [facility] Last Admin: 07/22/25 09:30 Dose: 50 mg Documented By: ENMA Labs 07/21/25 08:19 07/21/25 08:19 Labs: Laboratory Results - last 24 hr 07/21/25 07/21/25 07/22/25 18:09 20:35 06:18 aPTT Heparin Protocol 53.8 POC Glucose 168 H 156 H 07/22/25 07/22/25 07/22/25 07:28 11:17 15:59 aPTT Heparin Protocol POC Glucose 145 H 138 H 139 H Assessment and Plan (1) Ischemic colitis: Status: Acute Plan Patient is a 64-year-old male admitted by general surgery for ischemic colitis on CT, hospitalist consultation placed for medical management Ischemic colitis on CT - plan per general and vascular surgery - IVF, tolerating clear liquid diet; will be advanced to full liquid today - prophylactic antibiotics: Ceftriaxone and Flagyl - heparin drip stopped Acute lactic acidosis, improved with IVF, likely dehydration HTN - continue metoprolol and losartan - BP currently well controlled CAD - statin, aspirin, Imdur, ezetimibe Paroxysmal AFib - metoprolol - hold Xarelto, on heparin drip Insulin-dependent diabetes - POCs well-controlled - Continue sliding scale insulin per standard protocol - hold lantus for now, continue once diet advanced to solids Diabetic neuropathy - gabapentin Class 3 obesity - weight loss encouraged Full code Will continue to follow along with you. Quality Stroke Does the patient have a stroke diagnosis?: No VTE Prior VTE?: No VTE Risk Level:: Medical - moderate - high VTE Device Contraindication: N/A - Device Ordered VTE Drug Contraindication: N/A - Med Ordered
[2025-07-22 19:34] VITALS: BP 137/68; PULSE 79; RESP 17; TEMP 35.7; O2SAT 93
[2025-07-22 20:33] LABS: Glucose, Whole Blood 136 mg/dL (60-115)
[2025-07-22 23:13] VITALS: BP 142/65; PULSE 73; RESP 19; TEMP 35.6; O2SAT 94
[2025-07-23 03:28] VITALS: BP 135/63; PULSE 80; RESP 16; TEMP 36.2; O2SAT 95
[2025-07-23 07:29] VITALS: BP 165/78; PULSE 83; RESP 16; TEMP 36.4; O2SAT 97
--- NOTE | 2025-07-23 07:34 | P.PNIM_ITS ---
Subjective Subjective Date of Service: 07/23/25 Interval History: Abd pain improved, well-controlled Has been tolerating full liquid diet No nausea, vomiting, or diarrhea Had regular bowel movement yesterday BP and blood sugars continue to be well controlled Review of Systems Review of Systems: Yes all other systems are reviewed and are negative Physical Exam 2 Exam: Exam: General: AOx3, no acute distress Resp: CTA bilaterally CVS: S1, S2, RRR GI: +BS, no distention, soft. Mild suprapubic tenderness Skin: Warm, dry Neuro: Cranial nerves II-XII grossly intact bilaterally. Motor grossly intact bilaterally Extremities: No edema Psych: Appropriate affect Vital Signs: Vital Signs: Last Vital Signs Temp 97.2 F 07/23/25 03:28 Pulse 80 07/23/25 03:28 Resp 16 07/23/25 03:28 BP 135/63 07/23/25 03:28 Pulse Ox 95 07/23/25 03:28 O2 Del Method Room Air 07/23/25 03:28 BMI result Body Mass Index 38.0 Objective Data Active Medications Acetaminophen (Acetaminophen 325 Mg Tablet) 650 mg PO Q6H PRN PRN Reason: Pain, Mild 1-3,fever,headache Aspirin (Aspirin Enteric Coated 81 Mg Tablet.) 81 mg PO DAILY [facility] Last Admin: 07/22/25 09:30 Dose: 81 mg Documented By: ENMA Atorvastatin Calcium (Atorvastatin Calcium 80 Mg Tablet) 80 mg PO BEDTIME [facility] Last Admin: 07/22/25 22:09 Dose: Not Given Documented By: KLAUDIA Non-Admin Reason: Patient Refused Ceftriaxone Sodium (Ceftriaxone Sodium 1 Gm Vial) 1 gm IVPUSH Q24H [facility] Last Admin: 07/22/25 21:32 Dose: 1 gm Documented By: KLAUDIA Dextrose (Dextrose 50 % 25 Gm/50 Ml Syringe) 25 gm IVPUSH Q15M PRN; Protocol PRN Reason: per Hypoglycemia Standing Ord. Ezetimibe (Ezetimibe 10 Mg Tablet) 10 mg PO BEDTIME [facility] Last Admin: 07/22/25 22:09 Dose: Not Given Documented By: KLAUDIA Non-Admin Reason: Patient Refused Furosemide (Furosemide 20 Mg Tablet) 20 mg PO DAILY [facility]; Protocol Last Admin: 07/22/25 09:29 Dose: 20 mg Documented By: ENMA Gabapentin (Gabapentin 300 Mg Capsule) 300 mg PO TID [facility] Last Admin: 07/22/25 22:10 Dose: Not Given Documented By: KLAUDIA Non-Admin Reason: Patient Refused Glucose (Glucose Gel 15 Gm Gel..Gram.) 15 gm PO Q15M PRN; Protocol PRN Reason: per Hypoglycemia Standing Ord. Hydromorphone HCl (Hydromorphone Hcl 1 Mg/Ml Syringe) 1 mg IVPUSH Q4H PRN; Protocol PRN Reason: Pain, Severe (Pain Scale 7-10) Last Admin: 07/22/25 21:32 Dose: 1 mg Documented By: KLAUDIA Erythromycin Lactobionate 250 (mg/ Sodium Chloride) 100 mls @ 100 mls/hr IV ONCE [facility] Last Infusion: 07/19/25 16:02 Dose: Infused Documented By: SRAVANI Insulin Human Lispro (Insulin Lispro 100 Unit/Ml 3 Ml Vial) 0 unit SUBCUT QIDACHS [facility]; Protocol Last Admin: 07/22/25 22:10 Dose: Not Given Documented By: KLAUDIA Non-Admin Reason: No Insulin Coverage Isosorbide Mononitrate (Isosorbide Mononitrate 30 Mg Tab.Er.24h) 30 mg PO DAILY [facility]; Protocol Last Admin: 07/22/25 09:29 Dose: 30 mg Documented By: ENMA Loratadine (Loratadine 10 Mg Tablet) 10 mg PO DAILY [facility] Last Admin: 07/22/25 09:30 Dose: 10 mg Documented By: ENMA Losartan Potassium (Losartan Potassium 25 Mg Tablet) 25 mg PO DAILY [facility]; Protocol Last Admin: 07/22/25 09:29 Dose: 25 mg Documented By: ENMA Melatonin (Melatonin 3 Mg Tablet) 6 mg PO BEDTIME PRN PRN Reason: Insomnia Metoclopramide HCl (Metoclopramide Hcl 10 Mg Tablet) 10 mg PO Q8H PRN PRN Reason: Nausea and Vomiting Last Admin: 07/22/25 19:58 Dose: 10 mg Documented By: KLAUDIA Metoprolol Succinate (Metoprolol Succinate Er 25 Mg Tab.Er.24h) 25 mg PO DAILY [facility]; Protocol Last Admin: 07/22/25 09:29 Dose: 25 mg Documented By: NEMA Metronidazole (Metronidazole 500 Mg Tablet) 500 mg PO Q8H [facility] Last Admin: 07/23/25 06:01 Dose: 500 mg Documented By: KLAUDIA Ondansetron HCl (Ondansetron Hcl 4 Mg/2 Ml Vial) 4 mg IVPUSH Q6H PRN PRN Reason: Nausea and Vomiting Last Admin: 07/22/25 22:03 Dose: 4 mg Documented By: JERICARISM Sodium Chloride (0.9 % Sodium Chloride Flush 3 Ml Syringe) 3 ml IVFLUSH [facility] Last Admin: 07/21/25 22:11 Dose: 3 ml Documented By: ANTOIC Sodium Chloride (0.9 % Sodium Chloride Flush 3 Ml Syringe) 3 ml IVFLUSH [facility] Last Admin: 07/23/25 00:05 Dose: Not Given Documented By: KLAUDIA Non-Admin Reason: Previously Administered Venlafaxine HCl (Venlafaxine Hcl 25 Mg Tablet) 50 mg PO BID [facility] Last Admin: 07/22/25 22:10 Dose: Not Given Documented By: KLAUDIA Non-Admin Reason: Patient Refused Labs 07/21/25 08:19 07/21/25 08:19 Labs: Laboratory Results - last 24 hr 07/22/25 07/22/25 07/22/25 07:28 11:17 15:59 POC Glucose 145 H 138 H 139 H 07/22/25 20:29 POC Glucose 136 H Assessment and Plan (1) Ischemic colitis: Status: Acute Plan Patient is a 64-year-old male admitted by general surgery for ischemic colitis on CT, hospitalist consultation placed for medical management Ischemic colitis on CT - plan per general and vascular surgery - IVF, tolerating clear liquid diet; will be advanced to full liquid today - prophylactic antibiotics: Ceftriaxone and Flagyl - heparin drip stopped on 07/22 Acute lactic acidosis, improved with IVF, likely secondary to dehydration HTN - continue metoprolol and losartan - BP currently well controlled Insulin-dependent diabetes - POCs well-controlled - Continue sliding scale insulin per standard protocol - hold lantus for now, continue once diet advanced to solids CAD - statin, aspirin, Imdur, ezetimibe Paroxysmal AFib - metoprolol - hold Xarelto, on heparin drip Insulin-dependent diabetes - POCs well-controlled - Continue sliding scale insulin per standard protocol - hold lantus for now, continue once diet advanced to solids Diabetic neuropathy - gabapentin Class 3 obesity - weight loss encouraged Full code Will continue to follow along with you. Quality Stroke Does the patient have a stroke diagnosis?: No VTE Prior VTE?: No VTE Risk Level:: Medical - moderate - high VTE Device Contraindication: N/A - Device Ordered VTE Drug Contraindication: N/A - Med Ordered
[2025-07-23 07:39] LABS: Glucose, Whole Blood 112 mg/dL (60-115)
[2025-07-23] MEDS: Metoprolol Succinate ER 25 MG TAB.ER.24H PO (08:31)
[2025-07-23] MEDS: Aspirin Enteric Coated 81 MG TABLET.DR PO (08:31)
[2025-07-23] MEDS: 0.9 % Sodium Chloride Flush 3 ML SYRINGE IVFLUSH ×4 (08:32→23:42)
--- NOTE | 2025-07-23 08:41 | PM.PNGS ---
Subjective Subjective Date of Service: 07/23/25 Interval history: Patient is sleepy this morning. Denies any vomiting and minimal nausea. Tolerating full liquids. Abdominal pain is improving. Took last dose of pain medication last evening. Physical Exam Vital Signs: Vital Signs: Last Vital Signs Temp 97.5 F 07/23/25 07:29 Pulse 83 07/23/25 07:29 Resp 16 07/23/25 07:29 BP 165/78 H 07/23/25 07:29 Pulse Ox 97 07/23/25 07:29 O2 Del Method Room Air 07/23/25 07:29 BMI result Body Mass Index 38.0 Const: General: comfortable and no acute distress Orientation/consciousness: patient oriented x3 Resp: Effort & Inspection: normal respiratory effort and able to speak in complete sentences GI: Inspection: No distended Palpation (GI): Soft to palpation, not firm, Tenderness to palpation present (GI) in the epigastrum and periumbilically and not rigid Percussion: Yes normal to percussion Neuro: General: patient oriented x3 Objective Data Active Medications Acetaminophen (Acetaminophen 325 Mg Tablet) 650 mg PO Q6H PRN PRN Reason: Pain, Mild 1-3,fever,headache Aspirin (Aspirin Enteric Coated 81 Mg Tablet.) 81 mg PO DAILY [facility] Last Admin: 07/23/25 08:31 Dose: 81 mg Documented By: JOO Atorvastatin Calcium (Atorvastatin Calcium 80 Mg Tablet) 80 mg PO BEDTIME [facility] Last Admin: 07/22/25 22:09 Dose: Not Given Documented By: KLAUDIA Non-Admin Reason: Patient Refused Ceftriaxone Sodium (Ceftriaxone Sodium 1 Gm Vial) 1 gm IVPUSH Q24H [facility] Last Admin: 07/22/25 21:32 Dose: 1 gm Documented By: KLAUDIA Dextrose (Dextrose 50 % 25 Gm/50 Ml Syringe) 25 gm IVPUSH Q15M PRN; Protocol PRN Reason: per Hypoglycemia Standing Ord. Ezetimibe (Ezetimibe 10 Mg Tablet) 10 mg PO BEDTIME [facility] Last Admin: 07/22/25 22:09 Dose: Not Given Documented By: KLAUDIA Non-Admin Reason: Patient Refused Furosemide (Furosemide 20 Mg Tablet) 20 mg PO DAILY [facility]; Protocol Last Admin: 07/23/25 08:31 Dose: 20 mg Documented By: JOO Gabapentin (Gabapentin 300 Mg Capsule) 300 mg PO TID [facility] Last Admin: 07/23/25 08:31 Dose: 300 mg Documented By: JOO Glucose (Glucose Gel 15 Gm Gel..Gram.) 15 gm PO Q15M PRN; Protocol PRN Reason: per Hypoglycemia Standing Ord. Hydromorphone HCl (Hydromorphone Hcl 1 Mg/Ml Syringe) 1 mg IVPUSH Q4H PRN; Protocol PRN Reason: Pain, Severe (Pain Scale 7-10) Last Admin: 07/22/25 21:32 Dose: 1 mg Documented By: KLAUDIA Erythromycin Lactobionate 250 (mg/ Sodium Chloride) 100 mls @ 100 mls/hr IV ONCE [facility] Last Infusion: 07/19/25 16:02 Dose: Infused Documented By: SRAVANI Insulin Human Lispro (Insulin Lispro 100 Unit/Ml 3 Ml Vial) 0 unit SUBCUT QIDACHS [facility]; Protocol Last Admin: 07/23/25 07:40 Dose: Not Given Documented By: JOO Non-Admin Reason: No Insulin Coverage Isosorbide Mononitrate (Isosorbide Mononitrate 30 Mg Tab.Er.24h) 30 mg PO DAILY [facility]; Protocol Last Admin: 07/23/25 08:31 Dose: 30 mg Documented By: JOO Loratadine (Loratadine 10 Mg Tablet) 10 mg PO DAILY [facility] Last Admin: 07/23/25 08:31 Dose: 10 mg Documented By: JOO Losartan Potassium (Losartan Potassium 25 Mg Tablet) 25 mg PO DAILY [facility]; Protocol Last Admin: 07/23/25 08:31 Dose: 25 mg Documented By: JOO Melatonin (Melatonin 3 Mg Tablet) 6 mg PO BEDTIME PRN PRN Reason: Insomnia Metoclopramide HCl (Metoclopramide Hcl 10 Mg Tablet) 10 mg PO Q8H PRN PRN Reason: Nausea and Vomiting Last Admin: 07/22/25 19:58 Dose: 10 mg Documented By: KLAUDIA Metoprolol Succinate (Metoprolol Succinate Er 25 Mg Tab.Er.24h) 25 mg PO DAILY [facility]; Protocol Last Admin: 07/23/25 08:31 Dose: 25 mg Documented By: JOO Metronidazole (Metronidazole 500 Mg Tablet) 500 mg PO Q8H [facility] Last Admin: 07/23/25 06:01 Dose: 500 mg Documented By: KLAUDIA Ondansetron HCl (Ondansetron Hcl 4 Mg/2 Ml Vial) 4 mg IVPUSH Q6H PRN PRN Reason: Nausea and Vomiting Last Admin: 07/22/25 22:03 Dose: 4 mg Documented By: KLAUDIA Sodium Chloride (0.9 % Sodium Chloride Flush 3 Ml Syringe) 3 ml IVFLUSH QSHIFT [facility] Last Admin: 07/23/25 08:32 Dose: 3 ml Documented By: JOO Sodium Chloride (0.9 % Sodium Chloride Flush 3 Ml Syringe) 3 ml IVFLUSH QSHIFT [facility] Last Admin: 07/23/25 07:41 Dose: Not Given Documented By: JOO Non-Admin Reason: Duplicate Order Venlafaxine HCl (Venlafaxine Hcl 25 Mg Tablet) 50 mg PO BID [facility] Last Admin: 07/23/25 08:31 Dose: 50 mg Documented By: JOO Labs 07/21/25 08:19 07/21/25 08:19 Labs: Laboratory Results - last 24 hr 07/22/25 07/22/25 07/22/25 11:17 15:59 20:29 POC Glucose 138 H 139 H 136 H 07/23/25 07:35 POC Glucose 112 Procedures Date of Service Date of Service: 07/23/25 Progress Note: A&P Assessment and plan (1) Ischemic colitis: Status: Acute Plan 64-year-old male with history of hypertension, gastroparesis, obesity, CAD, PAF, IDDM, neuropathy with a ischemic colitis. The patient's abdominal exam is benign and nondistended. He is tolerating full liquid diet without increased abdominal pain. Continue to monitor abdominal exam, slowly advance diet. Time Spent With Patient Time: Total time managing care of this patient today ____ minutes. Quality Stroke Does the patient have a stroke diagnosis?: No VTE Prior VTE?: No VTE Risk Level:: Medical - moderate - high VTE Device Contraindication: N/A - Device Ordered VTE Drug Contraindication: N/A - Med Ordered
[2025-07-23 11:29] VITALS: BP 149/70; PULSE 77; RESP 18; TEMP 36.6; O2SAT 92
[2025-07-23 11:38] LABS: Glucose, Whole Blood 145 mg/dL (60-115)
[2025-07-23 15:28] VITALS: BP 144/78; PULSE 76; RESP 18; TEMP 36.6; O2SAT 97
[2025-07-23 16:09] LABS: Glucose, Whole Blood 148 mg/dL (60-115)
[2025-07-23 20:00] VITALS: BP 160/74; PULSE 76; RESP 18; TEMP 36; O2SAT 97
[2025-07-23 20:15] LABS: Glucose, Whole Blood 130 mg/dL (60-115)
[2025-07-24] VITALS: BP 134/60; PULSE 73; RESP 16; TEMP 36; O2SAT 96
[2025-07-24 04:00] VITALS: BP 151/69; PULSE 73; RESP 18; TEMP 35.9; O2SAT 96
[2025-07-24 06:28] LABS: Hematocrit 34.1 % (42.0-52.0); Hemoglobin 12.0 g/dl (14.0-18.0); Mean Corpuscular HGB Conc 35.2 g/dl (31.0-36.0); Mean Corpuscular Hemoglobin 29.6 pg (27.0-33.0); Mean Corpuscular Volume 84.2 fL (80.0-98.0); NRBC Abs Auto 0.000 X10*3/uL (0.0-0.012); NRBC Pct Auto 0.0 /100WBC (0.0-0.2); Platelet Count 212 X10*3/uL (160-400); Red Blood Count 4.05 X10*6/uL (4.60-5.80); White Blood Count 8.4 X10*3/uL (4.8-10.8)
[2025-07-24 07:18] VITALS: BP 148/70; PULSE 70; RESP 16; TEMP 36.1; O2SAT 95
[2025-07-24 07:43] LABS: Glucose, Whole Blood 100 mg/dL (60-115)
[2025-07-24] MEDS: 0.9 % Sodium Chloride Flush 3 ML SYRINGE IVFLUSH ×2 (08:54→22:03)
--- NOTE | 2025-07-24 08:57 | P.PNIM_ITS ---
Subjective Subjective Date of Service: 07/24/25 Interval History: Some nausea and vomiting last night and this morning Abd pain about the same Continues to be on full liquid diet One episode of loose stool yesterday Review of Systems Review of Systems: Yes all other systems are reviewed and are negative Physical Exam 2 Exam: Exam: General: AOx3, an episode of vomiting during exam Resp: CTA bilaterally CVS: S1, S2, RRR GI: +BS, no distention, soft, mild central abd tenderness Skin: Warm, dry Neuro: Cranial nerves II-XII grossly intact bilaterally. Motor grossly intact bilaterally Extremities: No edema Psych: Calm and cooperative Vital Signs: Vital Signs: Last Vital Signs Temp 96.9 F 07/24/25 07:18 Pulse 70 07/24/25 07:18 Resp 16 07/24/25 07:18 BP 148/70 H 07/24/25 07:18 Pulse Ox 95 07/24/25 07:18 O2 Del Method Room Air 07/24/25 07:18 BMI result Body Mass Index 38.0 Objective Data Active Medications Acetaminophen (Acetaminophen 325 Mg Tablet) 650 mg PO Q6H PRN PRN Reason: Pain, Mild 1-3,fever,headache Aspirin (Aspirin Enteric Coated 81 Mg Tablet.) 81 mg PO DAILY [facility] Last Admin: 07/23/25 08:31 Dose: 81 mg Documented By: JOO Atorvastatin Calcium (Atorvastatin Calcium 80 Mg Tablet) 80 mg PO BEDTIME [facility] Last Admin: 07/23/25 21:29 Dose: 80 mg Documented By: KLAUDIA Ceftriaxone Sodium (Ceftriaxone Sodium 1 Gm Vial) 1 gm IVPUSH Q24H [facility] Last Admin: 07/23/25 21:29 Dose: 1 gm Documented By: KLAUDIA Dextrose (Dextrose 50 % 25 Gm/50 Ml Syringe) 25 gm IVPUSH Q15M PRN; Protocol PRN Reason: per Hypoglycemia Standing Ord. Ezetimibe (Ezetimibe 10 Mg Tablet) 10 mg PO BEDTIME [facility] Last Admin: 07/23/25 21:29 Dose: 10 mg Documented By: KLAUDIA Furosemide (Furosemide 20 Mg Tablet) 20 mg PO DAILY [facility]; Protocol Last Admin: 07/23/25 08:31 Dose: 20 mg Documented By: JOO Gabapentin (Gabapentin 300 Mg Capsule) 300 mg PO TID [facility] Last Admin: 07/23/25 21:29 Dose: 300 mg Documented By: KLAUDIA Glucose (Glucose Gel 15 Gm Gel..Gram.) 15 gm PO Q15M PRN; Protocol PRN Reason: per Hypoglycemia Standing Ord. Hydromorphone HCl (Hydromorphone Hcl 1 Mg/Ml Syringe) 1 mg IVPUSH Q4H PRN; Protocol PRN Reason: Pain, Severe (Pain Scale 7-10) Last Admin: 07/24/25 03:36 Dose: 1 mg Documented By: KLAUDIA Erythromycin Lactobionate 250 (mg/ Sodium Chloride) 100 mls @ 100 mls/hr IV ONCE [facility] Last Infusion: 07/19/25 16:02 Dose: Infused Documented By: SRAVANI Insulin Human Lispro (Insulin Lispro 100 Unit/Ml 3 Ml Vial) 0 unit SUBCUT QIDACHS [facility]; Protocol Last Admin: 07/24/25 07:44 Dose: Not Given Documented By: JOO Non-Admin Reason: No Insulin Coverage Isosorbide Mononitrate (Isosorbide Mononitrate 30 Mg Tab.Er.24h) 30 mg PO DAILY [facility]; Protocol Last Admin: 07/23/25 08:31 Dose: 30 mg Documented By: JOO Loratadine (Loratadine 10 Mg Tablet) 10 mg PO DAILY [facility] Last Admin: 07/23/25 08:31 Dose: 10 mg Documented By: JOO Losartan Potassium (Losartan Potassium 25 Mg Tablet) 25 mg PO DAILY [facility]; Protocol Last Admin: 07/23/25 08:31 Dose: 25 mg Documented By: JOO Meclizine HCl (Meclizine Hcl 25 Mg Tablet) 25 mg PO TID PRN PRN Reason: Dizziness Or Vertigo Melatonin (Melatonin 3 Mg Tablet) 6 mg PO BEDTIME PRN PRN Reason: Insomnia Metoclopramide HCl (Metoclopramide Hcl 10 Mg Tablet) 10 mg PO Q8H PRN PRN Reason: Nausea and Vomiting Last Admin: 07/22/25 19:58 Dose: 10 mg Documented By: KLAUDIA Metoprolol Succinate (Metoprolol Succinate Er 25 Mg Tab.Er.24h) 25 mg PO DAILY [facility]; Protocol Last Admin: 07/23/25 08:31 Dose: 25 mg Documented By: JOO Metronidazole (Metronidazole 500 Mg Tablet) 500 mg PO Q8H [facility] Last Admin: 07/24/25 05:56 Dose: 500 mg Documented By: KLAUDIA Ondansetron HCl (Ondansetron Hcl 4 Mg/2 Ml Vial) 4 mg IVPUSH Q6H PRN PRN Reason: Nausea and Vomiting Last Admin: 07/24/25 03:45 Dose: 4 mg Documented By: KLAUDIA Rivaroxaban (Rivaroxaban 20 Mg Tablet) 20 mg PO DAILY@1700 [facility] Sodium Chloride (0.9 % Sodium Chloride Flush 3 Ml Syringe) 3 ml IVFLUSH [facility] Last Admin: 07/24/25 08:54 Dose: 3 ml Documented By: JOO Sodium Chloride (0.9 % Sodium Chloride Flush 3 Ml Syringe) 3 ml IVFLUSH [facility] Last Admin: 07/24/25 07:16 Dose: Not Given Documented By: JOO Non-Admin Reason: Duplicate Order Venlafaxine HCl (Venlafaxine Hcl 25 Mg Tablet) 50 mg PO BID [facility] Last Admin: 07/23/25 21:29 Dose: 50 mg Documented By: KLAUDIA Labs 07/24/25 05:56 07/21/25 08:19 Labs: Laboratory Results - last 24 hr 07/23/25 07/23/25 07/23/25 11:33 16:05 20:12 MCV MCH MCHC RDW Plt Count MPV Absolute Nucleated RBC Nucleated RBC % (auto) POC Glucose 145 H 148 H 130 H 07/24/25 07/24/25 05:56 07:26 MCV 84.2 MCH 29.6 MCHC 35.2 RDW 13.3 Plt Count 212 MPV 10.9 Absolute Nucleated RBC 0.000 Nucleated RBC % (auto) 0.0 POC Glucose 100 Assessment and Plan (1) Ischemic colitis: Status: Acute Plan Patient is a 64-year-old male admitted by general surgery for ischemic colitis on CT, hospitalist consultation placed for medical management Ischemic colitis on CT - plan per general and vascular surgery - tolerating full liquid diet; advance per general surgery - prophylactic antibiotics: Ceftriaxone and Flagyl - heparin drip stopped on 07/22 Acute lactic acidosis, improved with IVF, likely secondary to dehydration HTN - continue metoprolol and losartan - BP currently well controlled Insulin-dependent diabetes - POCs well-controlled - Continue sliding scale insulin per standard protocol - hold lantus for now, continue once diet advanced to solids CAD - statin, aspirin, Imdur, ezetimibe Paroxysmal AFib - metoprolol - continue Xarelto Insulin-dependent diabetes - POCs well-controlled - Continue sliding scale insulin per standard protocol - hold lantus for now, continue at half dosing once diet advanced to solids Diabetic neuropathy - gabapentin Class 3 obesity - weight loss encouraged Full code We will continue to follow along with you. Quality Stroke Does the patient have a stroke diagnosis?: No VTE Prior VTE?: No VTE Risk Level:: Medical - moderate - high VTE Device Contraindication: N/A - Device Ordered VTE Drug Contraindication: N/A - Med Ordered
--- NOTE | 2025-07-24 09:36 | PM.PNGS ---
Subjective Subjective Date of Service: 07/24/25 Interval history: Patient has periods of increased pain requiring IV pain medication. He did report a liquid bowel movement with no blood. Physical Exam Vital Signs: Vital Signs: Last Vital Signs Temp 96.9 F 07/24/25 07:18 Pulse 70 07/24/25 07:18 Resp 16 07/24/25 07:18 BP 148/70 H 07/24/25 07:18 Pulse Ox 95 07/24/25 07:18 O2 Del Method Room Air 07/24/25 07:18 BMI result Body Mass Index 38.0 Const: General: comfortable and no acute distress Orientation/consciousness: patient oriented x3 Resp: Effort & Inspection: normal respiratory effort and able to speak in complete sentences GI: Inspection: No distended Palpation (GI): Soft to palpation, not firm, Tenderness to palpation present (GI) in the epigastrum and periumbilically and not rigid Percussion: Yes normal to percussion Neuro: General: patient oriented x3 Objective Data Active Medications Acetaminophen (Acetaminophen 325 Mg Tablet) 650 mg PO Q6H PRN PRN Reason: Pain, Mild 1-3,fever,headache Aspirin (Aspirin Enteric Coated 81 Mg Tablet.) 81 mg PO DAILY [facility] Last Admin: 07/23/25 08:31 Dose: 81 mg Documented By: JOO Atorvastatin Calcium (Atorvastatin Calcium 80 Mg Tablet) 80 mg PO BEDTIME [facility] Last Admin: 07/23/25 21:29 Dose: 80 mg Documented By: KLAUDIA Ceftriaxone Sodium (Ceftriaxone Sodium 1 Gm Vial) 1 gm IVPUSH Q24H [facility] Stop: 07/26/25 21:59 Last Admin: 07/23/25 21:29 Dose: 1 gm Documented By: KLAUDIA Dextrose (Dextrose 50 % 25 Gm/50 Ml Syringe) 25 gm IVPUSH Q15M PRN; Protocol PRN Reason: per Hypoglycemia Standing Ord. Ezetimibe (Ezetimibe 10 Mg Tablet) 10 mg PO BEDTIME [facility] Last Admin: 07/23/25 21:29 Dose: 10 mg Documented By: KLAUDIA Furosemide (Furosemide 20 Mg Tablet) 20 mg PO DAILY [facility]; Protocol Last Admin: 07/23/25 08:31 Dose: 20 mg Documented By: JOO Gabapentin (Gabapentin 300 Mg Capsule) 300 mg PO TID [facility] Last Admin: 07/23/25 21:29 Dose: 300 mg Documented By: KLAUDIA Glucose (Glucose Gel 15 Gm Gel..Gram.) 15 gm PO Q15M PRN; Protocol PRN Reason: per Hypoglycemia Standing Ord. Hydromorphone HCl (Hydromorphone Hcl 1 Mg/Ml Syringe) 1 mg IVPUSH Q4H PRN; Protocol PRN Reason: Pain, Severe (Pain Scale 7-10) Last Admin: 07/24/25 03:36 Dose: 1 mg Documented By: KLAUDIA Erythromycin Lactobionate 250 (mg/ Sodium Chloride) 100 mls @ 100 mls/hr IV ONCE [facility] Last Infusion: 07/19/25 16:02 Dose: Infused Documented By: SRAVANI Insulin Human Lispro (Insulin Lispro 100 Unit/Ml 3 Ml Vial) 0 unit SUBCUT QIDACHS [facility]; Protocol Last Admin: 07/24/25 07:44 Dose: Not Given Documented By: JOO Non-Admin Reason: No Insulin Coverage Isosorbide Mononitrate (Isosorbide Mononitrate 30 Mg Tab.Er.24h) 30 mg PO DAILY [facility]; Protocol Last Admin: 07/23/25 08:31 Dose: 30 mg Documented By: JOO Ketorolac Tromethamine (Ketorolac Tromethamine 30 Mg/Ml Vial) 30 mg IVPUSH Q6H PRN PRN Reason: Pain, Moderate(Pain Scale 4-6) Loratadine (Loratadine 10 Mg Tablet) 10 mg PO DAILY [facility] Last Admin: 07/23/25 08:31 Dose: 10 mg Documented By: JOO Losartan Potassium (Losartan Potassium 25 Mg Tablet) 25 mg PO DAILY [facility]; Protocol Last Admin: 07/23/25 08:31 Dose: 25 mg Documented By: JOO Meclizine HCl (Meclizine Hcl 25 Mg Tablet) 25 mg PO TID PRN PRN Reason: Dizziness Or Vertigo Melatonin (Melatonin 3 Mg Tablet) 6 mg PO BEDTIME PRN PRN Reason: Insomnia Metoclopramide HCl (Metoclopramide Hcl 10 Mg Tablet) 10 mg PO Q8H PRN PRN Reason: Nausea and Vomiting Last Admin: 07/22/25 19:58 Dose: 10 mg Documented By: KLAUDIA Metoprolol Succinate (Metoprolol Succinate Er 25 Mg Tab.Er.24h) 25 mg PO DAILY [facility]; Protocol Last Admin: 07/23/25 08:31 Dose: 25 mg Documented By: JOO Metronidazole (Metronidazole 500 Mg Tablet) 500 mg PO Q8H [facility] Stop: 07/29/25 13:59 Last Admin: 07/24/25 05:56 Dose: 500 mg Documented By: KLAUDIA Ondansetron HCl (Ondansetron Hcl 4 Mg/2 Ml Vial) 4 mg IVPUSH Q6H PRN PRN Reason: Nausea and Vomiting Last Admin: 07/24/25 03:45 Dose: 4 mg Documented By: KLAUDIA Rivaroxaban (Rivaroxaban 20 Mg Tablet) 20 mg PO DAILY@1700 [facility] Sodium Chloride (0.9 % Sodium Chloride Flush 3 Ml Syringe) [facility] Last Admin: 07/24/25 08:54 Dose: 3 ml Documented By: JOO Sodium Chloride (0.9 % Sodium Chloride Flush 3 Ml Syringe) 3 ml IVFLUSH [facility] Last Admin: 07/24/25 07:16 Dose: Not Given Documented By: JOO Non-Admin Reason: Duplicate Order Venlafaxine HCl (Venlafaxine Hcl 25 Mg Tablet) 50 mg PO BID [facility] Last Admin: 07/23/25 21:29 Dose: 50 mg Documented By: KLAUDIA Labs 07/24/25 05:56 07/21/25 08:19 Labs: Laboratory Results - last 24 hr 07/23/25 07/23/25 07/23/25 11:33 16:05 20:12 MCV MCH MCHC RDW Plt Count MPV Absolute Nucleated RBC Nucleated RBC % (auto) POC Glucose 145 H 148 H 130 H 07/24/25 07/24/25 05:56 07:26 MCV 84.2 MCH 29.6 MCHC 35.2 RDW 13.3 Plt Count 212 MPV 10.9 Absolute Nucleated RBC 0.000 Nucleated RBC % (auto) 0.0 POC Glucose 100 Procedures Date of Service Date of Service: 07/24/25 Progress Note: A&P Assessment and plan (1) Ischemic colitis: Status: Acute Plan 64-year-old male with history of hypertension, gastroparesis, obesity, CAD, PAF, IDDM, neuropathy with a ischemic colitis. The patient's abdominal exam is benign and nondistended. He is tolerating full liquid diet without increased abdominal pain. He is not interested in advancing his diet. Continue to monitor abdominal exam, slowly advance diet. Time Spent With Patient Time: Total time managing care of this patient today ____ minutes. Quality Stroke Does the patient have a stroke diagnosis?: No VTE Prior VTE?: No VTE Risk Level:: Medical - moderate - high VTE Device Contraindication: N/A - Device Ordered VTE Drug Contraindication: N/A - Med Ordered
[2025-07-24 11:22] VITALS: BP 140/71; PULSE 80; RESP 16; TEMP 36.2; O2SAT 97
[2025-07-24 11:41] LABS: Glucose, Whole Blood 130 mg/dL (60-115)
[2025-07-24 15:37] VITALS: BP 138/74; PULSE 91; RESP 18; TEMP 36.1; O2SAT 97
[2025-07-24 16:40] LABS: Glucose, Whole Blood 125 mg/dL (60-115)
[2025-07-24 20:00] VITALS: BP 167/89; PULSE 79; RESP 18; TEMP 36.3; O2SAT 93
[2025-07-24 20:22] LABS: Glucose, Whole Blood 110 mg/dL (60-115)
[2025-07-25] VITALS (7 sets, daily range): BP systolic 97–160; BP diastolic 56–75; PULSE 67–84; RESP 14–18; TEMP 36–36.3; O2SAT 93–98
[2025-07-25 07:57] LABS: Glucose, Whole Blood 128 mg/dL (60-115)
[2025-07-25] MEDS: Metoprolol Succinate ER 25 MG TAB.ER.24H PO (07:59)
[2025-07-25] MEDS: Aspirin Enteric Coated 81 MG TABLET.DR PO (08:00)
[2025-07-25] MEDS: 0.9 % Sodium Chloride Flush 3 ML SYRINGE IVFLUSH ×3 (08:01→19:50)
--- NOTE | 2025-07-25 08:05 | PM.PNGS ---
Subjective Subjective Date of Service: 07/25/25 <Clive Seo PA-C - Last Filed: 07/25/25 08:26> 07/25/25 <Derrick Perkins MD - Last Filed: 07/25/25 10:53> Interval history: continued mild pain in epigastric area. Denies current nausea, had one episode with vomiting last night. Otherwise tolerating full liquid diet. Ready to try solids. Reports another nonbloody BM yesterday. COntinues to minimally ambulate due to ongoing ankle issues. <Clive Seo PA-C - Last Filed: 07/25/25 08:26> Physical Exam Vital Signs: Vital Signs: Last Vital Signs Temp 97.2 F 07/25/25 07:25 Pulse 76 07/25/25 07:25 Resp 18 07/25/25 07:25 BP 133/73 07/25/25 07:25 Pulse Ox 98 07/25/25 07:25 O2 Del Method Room Air 07/25/25 07:25 BMI result Body Mass Index 38.0 <Clive Seo PA-C - Last Filed: 07/25/25 08:26> Const: General: comfortable and no acute distress <Clive Seo PA-C - Last Filed: 07/25/25 08:26> Orientation/consciousness: patient oriented x3 <Clive Seo PA-C - Last Filed: 07/25/25 08:26> Resp: Effort & Inspection: normal respiratory effort and able to speak in complete sentences <Clive Seo PA-C - Last Filed: 07/25/25 08:26> GI: Inspection: No distended <Clive Seo PA-C - Last Filed: 07/25/25 08:26> Palpation (GI): Soft to palpation, not firm, Tenderness to palpation present (GI) in the epigastrum (mild) and no guarding <Clive Seo PA-C - Last Filed: 07/25/25 08:26> Neuro: General: patient oriented x3 <FELICIA Blackman Last Filed: 07/25/25 08:26> Objective Data Active Medications Acetaminophen (Acetaminophen 325 Mg Tablet) 650 mg PO Q6H PRN PRN Reason: Pain, Mild 1-3,fever,headache Aspirin (Aspirin Enteric Coated 81 Mg Tablet.Dr) 81 mg PO DAILY [facility] Last Admin: 07/24/25 09:56 Dose: Not Given Documented By: JOO Non-Admin Reason: Nausea Atorvastatin Calcium (Atorvastatin Calcium 80 Mg Tablet) 80 mg PO BEDTIME [facility] Last Admin: 07/24/25 20:15 Dose: 80 mg Documented By: CLIFF Ceftriaxone Sodium (Ceftriaxone Sodium 1 Gm Vial) 1 gm IVPUSH Q24H [facility] Stop: 07/26/25 21:59 Last Admin: 07/24/25 22:00 Dose: 1 gm Documented By: CLIFF Dextrose (Dextrose 50 % 25 Gm/50 Ml Syringe) 25 gm IVPUSH Q15M PRN; Protocol PRN Reason: per Hypoglycemia Standing Ord. Ezetimibe (Ezetimibe 10 Mg Tablet) 10 mg PO BEDTIME [facility] Last Admin: 07/24/25 20:15 Dose: 10 mg Documented By: CLIFF Furosemide (Furosemide 20 Mg Tablet) 20 mg PO DAILY [facility]; Protocol Last Admin: 07/24/25 09:56 Dose: Not Given Documented By: JOO Non-Admin Reason: Nausea Gabapentin (Gabapentin 300 Mg Capsule) 300 mg PO TID [facility] Last Admin: 07/24/25 20:15 Dose: 300 mg Documented By: CLIFF Glucose (Glucose Gel 15 Gm Gel..Gram.) 15 gm PO Q15M PRN; Protocol PRN Reason: per Hypoglycemia Standing Ord. Hydromorphone HCl (Hydromorphone Hcl 0.5 Mg/0.5 Ml Syringe) 0.5 mg IVPUSH Q4H PRN; Protocol PRN Reason: Breakthrough Pain Last Admin: 07/25/25 05:14 Dose: 0.5 mg Documented By: CLIFF Erythromycin Lactobionate 250 (mg/ Sodium Chloride) 100 mls @ 100 mls/hr IV ONCE [facility] Last Infusion: 07/19/25 16:02 Dose: Infused Documented By: SRAVANI Insulin Human Lispro (Insulin Lispro 100 Unit/Ml 3 Ml Vial) 0 unit SUBCUT QIDACHS [facility]; Protocol Last Admin: 07/25/25 07:59 Dose: Not Given Documented By: YOCASTA Non-Admin Reason: No Insulin Coverage Isosorbide Mononitrate (Isosorbide Mononitrate 30 Mg Tab.Er.24h) 30 mg PO DAILY [facility]; Protocol Last Admin: 07/24/25 09:57 Dose: Not Given Documented By: JOO Non-Admin Reason: Nausea Ketorolac Tromethamine (Ketorolac Tromethamine 30 Mg/Ml Vial) 30 mg IVPUSH Q6H PRN PRN Reason: Pain, Moderate(Pain Scale 4-6) Last Admin: 07/24/25 23:27 Dose: 30 mg Documented By: CLIFF Comments: per pt request d/t no pain relief from previous medication Loratadine (Loratadine 10 Mg Tablet) 10 mg PO DAILY [facility] Last Admin: 07/24/25 09:57 Dose: Not Given Documented By: JOO Non-Admin Reason: Nausea Losartan Potassium (Losartan Potassium 25 Mg Tablet) 25 mg PO DAILY [facility]; Protocol Last Admin: 07/24/25 09:57 Dose: Not Given Documented By: JOO Non-Admin Reason: Nausea Meclizine HCl (Meclizine Hcl 25 Mg Tablet) 25 mg PO TID PRN PRN Reason: Dizziness Or Vertigo Melatonin (Melatonin 3 Mg Tablet) 6 mg PO BEDTIME PRN PRN Reason: Insomnia Metoclopramide HCl (Metoclopramide Hcl 10 Mg Tablet) 10 mg PO Q8H PRN PRN Reason: Nausea and Vomiting Last Admin: 07/22/25 19:58 Dose: 10 mg Documented By: KLAUDIA Metoprolol Succinate (Metoprolol Succinate Er 25 Mg Tab.Er.24h) 25 mg PO DAILY [facility]; Protocol Last Admin: 07/24/25 09:57 Dose: Not Given Documented By: JOO Non-Admin Reason: Nausea Metronidazole (Metronidazole 500 Mg Tablet) 500 mg PO Q8H [facility] Stop: 07/29/25 13:59 Last Admin: 07/25/25 05:12 Dose: 500 mg Documented By: CLIFF Ondansetron HCl (Ondansetron Hcl 4 Mg/2 Ml Vial) 4 mg IVPUSH Q6H PRN PRN Reason: Nausea and Vomiting Last Admin: 07/25/25 05:17 Dose: 4 mg Documented By: CLIFF Rivaroxaban (Rivaroxaban 20 Mg Tablet) 20 mg PO DAILY@1700 [facility] Last Admin: 07/24/25 17:24 Dose: 20 mg Documented By: JOO Sodium Chloride (0.9 % Sodium Chloride Flush 3 Ml Syringe) [facility] Last Admin: 07/24/25 22:03 Dose: 3 ml Documented By: CLIFF Sodium Chloride (0.9 % Sodium Chloride Flush 3 Ml Syringe) 3 ml IVFLUSH [facility] Last Admin: 07/24/25 22:09 Dose: Not Given Documented By: CLIFF Non-Admin Reason: Duplicate Order Venlafaxine HCl (Venlafaxine Hcl 25 Mg Tablet) 50 mg PO BID [facility] Last Admin: 07/24/25 20:15 Dose: 50 mg Documented By: CLIFF <Clive Seo PA-C - Last Filed: 07/25/25 08:26> Labs CBC & Chem 7: 07/24/25 05:56 07/21/25 08:19 <Clive Seo PA-C - Last Filed: 07/25/25 08:26> Labs: Laboratory Results - last 24 hr 07/24/25 07/24/25 07/24/25 11:26 16:33 19:54 POC Glucose 130 H 125 H 110 07/25/25 07:52 POC Glucose 128 H <Clive Seo PA-C - Last Filed: 07/25/25 08:26> Procedures Date of Service Date of Service: 07/25/25 <Clive Seo PA-C - Last Filed: 07/25/25 08:26> 07/25/25 <Derrick Perkins MD - Last Filed: 07/25/25 10:53> Progress Note: A&P Assessment and plan (1) Ischemic colitis: Status: Acute <Clive Seo PA-C - Last Filed: 07/25/25 08:26> Assessment and Plan: States he feels okay today Does mentioned that he still has periodic pain of the abdomen Abdomen remained soft, benign, nontender, nondistended No fever Labs okay Diet as tolerated Encouraged ambulation Seen and examined independently <Derrick Perkins MD - Last Filed: 07/25/25 10:53> Assessment and Plan: 64 year old male with a history of hypertension, gastroparesis, class 1 obesity, CAD, paroxysmal AFib, insulin-dependent diabetes and diabetic neuropathy, admitted for ischemic colitis. Managed conservatively with bowel rest. Feels okay today, endorsing mild pain in the epigastric area. He does not have current nausea, no vomiting. On episode last night. Passed Bm yesterday, nonbloody. On exam the abdomen is soft, and benign. Mildly tender in the epigastric, non distended. He is minimally ambulating, i encouraged him to at least get to the chair in the room. Overall, he seems to be improving. will trial regular diet today serial abdominal exams recommend increasing ambulation <Clive Seo PA-C - Last Filed: 07/25/25 08:26> Time Spent With Patient Time: Total time managing care of this patient today ____ minutes. <Clive Seo PA-C - Last Filed: 07/25/25 08:26> Quality Stroke Does the patient have a stroke diagnosis?: No <Clive Seo PA-C - Last Filed: 07/25/25 08:26> VTE Prior VTE?: No <Clive Seo PA-C - Last Filed: 07/25/25 08:26> VTE Risk Level:: Medical - moderate - high <Clive Seo PA-C - Last Filed: 07/25/25 08:26> VTE Device Contraindication: N/A - Device Ordered <Clive Seo PA-C - Last Filed: 07/25/25 08:26> VTE Drug Contraindication: N/A - Med Ordered <Clive Seo PA-C - Last Filed: 07/25/25 08:26>
[2025-07-25 11:58] LABS: Glucose, Whole Blood 162 mg/dL (60-115)
[2025-07-25 15:57] LABS: Glucose, Whole Blood 183 mg/dL (60-115)
[2025-07-25 19:43] LABS: Glucose, Whole Blood 173 mg/dL (60-115)
[2025-07-26 03:17] VITALS: BP 104/49; PULSE 69; RESP 17; TEMP 36.2; O2SAT 95
--- NOTE | 2025-07-26 07:36 | P.PNGS_ITS ---
Subjective Subjective Date of Service: 07/26/25 <Derrick Perkins MD - Last Filed: 07/26/25 07:38> 07/26/25 <Clive Seo PA-C - Last Filed: 07/26/25 08:01> Interval history: Says he feels well this morning Says he has oral intake is good Has BMs and flatus Says pain has improved significantly <Derrick Perkins MD - Last Filed: 07/26/25 07:38> Says he feels well this morning Says he has oral intake is good Has BMs and flatus Says pain has improved significantly Feels well, pain improving. Tolerating regular diet. Passed BM yesterday, nonbloody. he feels ready to go home <Clive Seo PA-C - Last Filed: 07/26/25 08:01> Physical Exam 2 Vital Signs: Vital Signs: Last Vital Signs Temp 97.1 F 07/26/25 03:17 Pulse 69 07/26/25 03:17 Resp 17 07/26/25 03:17 BP 104/49 L 07/26/25 03:17 Pulse Ox 95 07/26/25 03:17 O2 Del Method Room Air 07/26/25 03:17 BMI result Body Mass Index 38.0 <Derrick Perkins MD - Last Filed: 07/26/25 07:38> Const: General: comfortable and no acute distress <Derrick Perkins MD - Last Filed: 07/26/25 07:38> Resp: Effort & Inspection: normal respiratory effort <Derrick Perkins MD - Last Filed: 07/26/25 07:38> Cardio: Rate: regular rate <Derrick Perkins MD - Last Filed: 07/26/25 07:38> GI: Palpation (GI): Soft to palpation, not firm and nontender <Derrick Perkins MD - Last Filed: 07/26/25 07:38> Objective Data Active Medications Acetaminophen (Acetaminophen 325 Mg Tablet) 650 mg PO Q6H PRN PRN Reason: Pain, Mild 1-3,fever,headache Aspirin (Aspirin Enteric Coated 81 Mg Tablet.) 81 mg PO DAILY [facility] Last Admin: 07/25/25 08:00 Dose: 81 mg Documented By: YOCASTA Atorvastatin Calcium (Atorvastatin Calcium 80 Mg Tablet) 80 mg PO BEDTIME [facility] Last Admin: 07/25/25 19:48 Dose: 80 mg Documented By: CLIFF Ceftriaxone Sodium (Ceftriaxone Sodium 1 Gm Vial) 1 gm IVPUSH Q24H WILLIAM Stop: 07/26/25 21:59 Last Admin: 07/25/25 22:52 Dose: 1 gm Documented By: CLIFF Dextrose (Dextrose 50 % 25 Gm/50 Ml Syringe) 25 gm IVPUSH Q15M PRN; Protocol PRN Reason: per Hypoglycemia Standing Ord. Ezetimibe (Ezetimibe 10 Mg Tablet) 10 mg PO BEDTIME [facility] Last Admin: 07/25/25 19:48 Dose: 10 mg Documented By: CLIFF Furosemide (Furosemide 20 Mg Tablet) 20 mg PO DAILY [facility]; Protocol Last Admin: 07/25/25 08:00 Dose: 20 mg Documented By: YOCASTA Gabapentin (Gabapentin 300 Mg Capsule) 300 mg PO TID [facility] Last Admin: 07/25/25 19:49 Dose: 300 mg Documented By: CLIFF Glucose (Glucose Gel 15 Gm Gel..Gram.) 15 gm PO Q15M PRN; Protocol PRN Reason: per Hypoglycemia Standing Ord. Hydromorphone HCl (Hydromorphone Hcl 0.5 Mg/0.5 Ml Syringe) 0.5 mg IVPUSH Q4H PRN; Protocol PRN Reason: Breakthrough Pain Last Admin: 07/26/25 02:45 Dose: 0.5 mg Documented By: KARLI Erythromycin Lactobionate 250 (mg/ Sodium Chloride) 100 mls @ 100 mls/hr IV ONCE [facility] Last Infusion: 07/19/25 16:02 Dose: Infused Documented By: SRAVANI Insulin Human Lispro (Insulin Lispro 100 Unit/Ml 3 Ml Vial) 0 unit SUBCUT QIDACHS [facility]; Protocol Last Admin: 07/25/25 19:49 Dose: 2 unit Documented By: CLIFF Isosorbide Mononitrate (Isosorbide Mononitrate 30 Mg Tab.Er.24h) 30 mg PO DAILY [facility]; Protocol Last Admin: 07/25/25 08:00 Dose: 30 mg Documented By: YOCASTA Ketorolac Tromethamine (Ketorolac Tromethamine 30 Mg/Ml Vial) 30 mg IVPUSH Q6H PRN PRN Reason: Pain, Moderate(Pain Scale 4-6) Last Admin: 07/26/25 05:49 Dose: 30 mg Documented By: CLIFF Loratadine (Loratadine 10 Mg Tablet) 10 mg PO DAILY [facility] Last Admin: 07/25/25 07:59 Dose: 10 mg Documented By: YOCASTA Losartan Potassium (Losartan Potassium 25 Mg Tablet) 25 mg PO DAILY [facility]; Protocol Last Admin: 07/25/25 08:00 Dose: 25 mg Documented By: YOCASTA Meclizine HCl (Meclizine Hcl 25 Mg Tablet) 25 mg PO TID PRN PRN Reason: Dizziness Or Vertigo Melatonin (Melatonin 3 Mg Tablet) 6 mg PO BEDTIME PRN PRN Reason: Insomnia Metoclopramide HCl (Metoclopramide Hcl 10 Mg Tablet) 10 mg PO Q8H PRN PRN Reason: Nausea and Vomiting Last Admin: 07/22/25 19:58 Dose: 10 mg Documented By: KLAUDIA Metoprolol Succinate (Metoprolol Succinate Er 25 Mg Tab.Er.24h) 25 mg PO DAILY [facility]; Protocol Last Admin: 07/25/25 07:59 Dose: 25 mg Documented By: YOCASTA Metronidazole (Metronidazole 500 Mg Tablet) 500 mg PO Q8H [facility] Stop: 07/29/25 13:59 Last Admin: 07/26/25 05:43 Dose: 500 mg Documented By: CLIFF Ondansetron HCl (Ondansetron Hcl 4 Mg/2 Ml Vial) 4 mg IVPUSH Q6H PRN PRN Reason: Nausea and Vomiting Last Admin: 07/25/25 22:52 Dose: 4 mg Documented By: CLIFF Rivaroxaban (Rivaroxaban 20 Mg Tablet) 20 mg PO DAILY@1700 [facility] Last Admin: 07/25/25 17:24 Dose: 20 mg Documented By: YOCASTA Sodium Chloride (0.9 % Sodium Chloride Flush 3 Ml Syringe) 3 ml IVFLUSH [facility] Last Admin: 07/25/25 19:50 Dose: 3 ml Documented By: CLIFF Sodium Chloride (0.9 % Sodium Chloride Flush 3 Ml Syringe) 3 ml IVFLUSH [facility] Last Admin: 07/25/25 19:52 Dose: Not Given Documented By: CLIFF Non-Admin Reason: Duplicate Order Venlafaxine HCl (Venlafaxine Hcl 25 Mg Tablet) 50 mg PO BID [facility] Last Admin: 07/25/25 19:47 Dose: 50 mg Documented By: CLIFF <Derrick Perkins MD - Last Filed: 07/26/25 07:38> Labs CBC & Chem 7: 07/24/25 05:56 07/21/25 08:19 <Derrick Perkins MD - Last Filed: 07/26/25 07:38> Labs: Laboratory Results - last 24 hr 07/25/25 07/25/25 07/25/25 07:52 11:53 15:54 POC Glucose 128 H 162 H 183 H 07/25/25 19:39 POC Glucose 173 H <Derrick Perkins MD - Last Filed: 07/26/25 07:38> Procedures Date of Service Date of Service: 07/26/25 <Derrick Perkins MD - Last Filed: 07/26/25 07:38> 07/26/25 <Clive Seo PA-C - Last Filed: 07/26/25 08:01> Progress Note: A&P Assessment and plan (1) Ischemic colitis: Status: Acute <Derrick Perkins MD - Last Filed: 07/26/25 07:38> Assessment and Plan: Symptoms have resolved Good GI functions No fever, abdomen is soft and benign and nontender Okay to DC Patient says he is ready No new medications necessary The patient is instructed to follow up with care physician <Derrick Perkins MD - Last Filed: 07/26/25 07:38> Assessment and Plan: 64 year old male with a history of hypertension, gastroparesis, class 1 obesity, CAD, paroxysmal AFib, insulin-dependent diabetes and diabetic neuropathy, admitted for ischemic colitis. Managed conservatively with bowel rest. Feels much better today, pain is improving, now more like discomfort. He does not have current nausea, no vomiting. Passed Bm yesterday, nonbloody. On exam the abdomen is soft, and benign. Mildly tender in the epigastric, non distended. Seen by PT yesterday, was ambulating. Feels well and wants to go home. Will discharge today, confirmed with hopsitalist they have no further interventions <Clive Seo PA-C - Last Filed: 07/26/25 08:01> Time Spent With Patient Time: Total time managing care of this patient today ____ minutes. <Derrick Perkins MD - Last Filed: 07/26/25 07:38> Quality Stroke Does the patient have a stroke diagnosis?: No <Derrick Perkins MD - Last Filed: 07/26/25 07:38> VTE Prior VTE?: No <Derrick Perkins MD - Last Filed: 07/26/25 07:38> VTE Risk Level:: Medical - moderate - high <Derrick Perkins MD - Last Filed: 07/26/25 07:38> VTE Device Contraindication: N/A - Device Ordered <Derrick Perkins MD - Last Filed: 07/26/25 07:38> VTE Drug Contraindication: N/A - Med Ordered <Derrick Perkins MD - Last Filed: 07/26/25 07:38>
[2025-07-26 07:42] LABS: Glucose, Whole Blood 188 mg/dL (60-115)
[2025-07-26] MEDS: Aspirin Enteric Coated 81 MG TABLET.DR PO (07:42)
[2025-07-26] MEDS: Metoprolol Succinate ER 25 MG TAB.ER.24H PO (07:42)
[2025-07-26] MEDS: 0.9 % Sodium Chloride Flush 3 ML SYRINGE IVFLUSH (07:43)
[2025-07-26 08:00] VITALS: BP 117/57; PULSE 72; RESP 18; TEMP 36.2; O2SAT 97
--- NOTE | 2025-07-26 08:24 | MHC.CM.PN ---
DP: PT HAS BEEN MEDICALLY CLEARED FOR DC HOME, NO SERVICES. [facility] WILL TRANSPORT HOME.
--- NOTE | 2025-07-26 09:46 | PM.DS ---
DS: Providers Provider Date of Service: 07/26/25 Date of admission: 07/19/25 18:52 Date of discharge: 07/26/25 Primary care physician: Marley Rick MD Admitting clinician: Veronica Carrera Attending physician on admission: Veronica Carrera Consults: 07/19/25 19:40 Consult to Hospitalist Stat Comment: [place]ing [place] [facility] [place] Reason For Exam: med management diabetes 07/19/25 21:37 Consult to Gastroenterology Routine Consulting Provider: [facility] [place] Reason for consultation: ischemic colitis 07/20/25 07:51 Consult to Vascular Surgery Routine Consulting Provider: [facility] [place] Reason for consultation: ischemic colitis Attending physician on discharge: Derrick Perkins DS: Diagnosis Discharge Diagnosis (1) Ischemic colitis: Status: Acute DS: Summary Hospital Course Hospital Course: Admission HPI: Patric Gomez is a 64 year old male with multiple med issues - DM/CAD s/p CABG X4 who has gastroparesis and colitis in past and now coming in for sig pain in abdomen coming from the upper abdomen/epigastric area. Pain seemingly out of proportion to exam so ischemic bowel CT scan protocol done and finding showing sig vascular calcifications especially at the distal SMA leading to ischemic colitis of ascending colon. pt denies fever chill or blood in his stool. No chest cardiac or resp sx. In ER was resuscitated as pt was vomiting for 3 days - lactic acid high to normal- with ivf. He has known admissions for gastroparesis and flet like this was the issue again. Hospital course: Patient was admitted for ischemic colitis without perforation, plan to admit, NPO, fluid resuscitation, IV antibiotics, anticoagulation with heparin drip. Medicine, GI and vascular consulted. Admission day 1, patient feeling worse pain in the abdomen continued nausea, last bowel movement yesterday nonbloody. Lactate is improving, leukocytosis stable. Abdomen is soft, very tender in the epigastric and periumbilical area. Continuing conservative management, bowel rest NPO, heparin drip. Pain about the same. Abdominal exam unchanged, passing more bowel movements. GI recommending no colonoscopy at this point due to risk of perforation. Continue no plan for surgical intervention. Trialling clear liquid diet. Vascular recommending anticoagulation unlikely to be beneficial, stopped at this point. Admission day 3, pain improving, some mild nausea. Tolerating clears with some mild nausea. Continues to pass flatus. Abdominal exam unchanged. Trial full liquid diet. Admission day 4, tolerating full liquids, pain improving, minimal ambulation. Abdomen benign. Admission day 5, occasional increased pain requiring medication, pass liquid bowel movement no blood. He is not interested in advancing diet at this point. Admission day 6, feeling improved, pain now mild in the epigastric area. Continues to pass flatus and bowel movements. Diet advanced to regular diet. Admission day 7. Patient improving significantly, tolerating regular diet, pain now minimal abdomen remains soft and benign felt ready for discharge. At the time of discharge patient was in stable condition. Abdominal exam is soft and benign. Status at Discharge Functional status at discharge: independent ambulation Overall status at discharge: patient is back to baseline Time Attestation Discharge Coordination Time (in mins): 30 Quality: Safe Use of Opioids Does Pt have an Active Cancer Diagnosis on the Problem List?: No Quality: Stroke Does the patient have a stroke diagnosis?: No Physical Exam Vital Signs: Vital Signs: Last Vital Signs Temp 97.1 F 07/26/25 08:00 Pulse 72 07/26/25 08:00 Resp 18 07/26/25 08:00 BP 117/57 L 07/26/25 08:00 Pulse Ox 97 07/26/25 08:00 O2 Del Method Room Air 07/26/25 08:00 BMI result Body Mass Index 38.0 Const: General: comfortable and no acute distress Resp: Effort & Inspection: normal respiratory effort Cardio: Rate: regular rate GI: Palpation (GI): Soft to palpation, not firm and nontender DS: Data Data Completed and Pending Completed studies during hospitalization [Text1]: Procedures Detachment at Left 1st Toe, Complete, Open Approach (01/03/22) Drainage of Pelvic Region Subcutaneous Tissue and Fascia, Open Approach (04/30/23) Fluoroscopy of Left Lower Extremity Arteries using High Osmolar Contrast (08/04/22) Fluoroscopy of Right Subclavian Vein using Low Osmolar Contrast, Guidance (08/04/22) Insertion of Infusion Device into Right Subclavian Vein, Percutaneous Approach (08/04/22) Insertion of Infusion Device into Superior Vena Cava, Percutaneous Approach (01/20/22) Ultrasonography of Superior Vena Cava, Guidance (01/03/22) Labs on day of discharge: Laboratory Results - last 24 hr 07/25/25 07/25/2507/25/25 11:53 15:54 19:39 POC Glucose 162 H 183 H 173 H 07/26/25 07:22 POC Glucose 188 H Discharge Plan Discharge Anticipated Discharge Date/Time: 07/26/25 07:38 Patient Disposition: Home, Self-Care Discharge Diagnosis: Abdominal pain, question ischemic colitis Referrals: Physician,Unknown J [Physician, Medical] - 1 Week Discharge Medications: Continued (DME) jw [facility] [place] See Rx Instructions .Route Qty: 1 0RF Rx Instructions: As directed (DME) Aircast off loading boot Kit See Rx Instructions .Route Qty: 1 0RF Rx Instructions: As directed (DME) elastic bandage 6 X 1.8 -yard bandage See Rx Instructions .Route Qty: 6 0RF Rx Instructions: As directed (DME) gauze bandage [Band-Aid Gauze Pads] 4 X 4 bandage See Rx Instructions .Route Qty: 25 3RF Rx Instructions: As directed (DME) sterile gauze 4x4 See Rx Instructions .Route .MEDSUPPLY Qty: 40 3RF Rx Instructions: Apply to left foot wound every other day (DME) calcium alginate ag 4x4 pad See Rx Instructions .Route .MEDSUPPLY Qty: 5 2RF Rx Instructions: Apply to wound beds every other day insulin glargine [Lantus U-100 Insulin] 100 unit/mL solution 10 unit subcut BEDTIME isosorbide mononitrate 30 mg tablet extended release 24 hr 30 mg PO DAILY losartan 25 mg tablet 25 mg PO DAILY gabapentin 300 mg capsule 300 mg PO TID loratadine 10 mg tablet 10 mg PO DAILY ezetimibe 10 mg tablet 10 mg PO BEDTIME rosuvastatin 40 mg tablet 40 mg PO BEDTIME meclizine 25 mg tablet 25 mg PO TID PRN (Reason: Dizziness Or Vertigo) (DME) [facility] See Rx Instructions .Route Qty: 1 0RF Rx Instructions: As directed aspirin 81 mg tablet,delayed release (DR/EC) 81 mg PO DAILY furosemide 20 mg tablet 20 mg PO DAILY metoprolol succinate 25 mg tablet extended release 24 hr 25 mg PO DAILY insulin lispro 100 unit/mL solution See Protocol subcut QIDACHS Protocol: Insulin Correction Scale Less than or equal to 110 ---- Give (units): 0 111 to 150 Give (units): 0 151 to 200 Give (units): 2 201 to 250 Give (units): 4 251 to 300 Give (units): 6 301 to 350 Give (units): 8 Greater than 350 Give (units): 10 Call MD if Blood Glucose > : 350 Xarelto 20 mg tablet 20 mg PO DAILY@1700 insulin glargine [Lantus U-100 Insulin] 100 unit/mL solution 8 unit SUBCUT DAILY venlafaxine 100 mg tablet 50 mg PO BID Qty: 1 0RF oxycodone 10 mg tablet 10 mg PO Q4H PRN (Reason: Pain) Qty: 10 0RF Gvoke HypoPen 2-Pack 1 mg/0.2 mL auto-injector 1 mg SUBCUT ONCE PRN (Reason: Hypoglycemia) lidocaine [Lidocaine Pain Relief] 4 % adhesive patch,medicated 1 patch transdermal DAILY PRN (Reason: Pain) Protocol: Apply to: Apply to: pain area pantoprazole 40 mg tablet,delayed release (DR/EC) 40 mg PO BID@0630,1630 ondansetron 4 mg tablet,disintegrating 4 mg PO Q8H PRN (Reason: Nausea And Vomiting) metoclopramide HCl [Reglan] 10 mg tablet 10 mg PO Q8H PRN (Reason: nausea and vomiting) Qty: 90 0RF Discharge Orders: Discharge Order (Routine); Ordered 07/26/25 Ordered By: Derrick Perkins Diet: Advance to usual diet Activity on Discharge: As tolerated Stand Alone Forms: Patient Portal Discharge page Print Language: Amharic Care Plan Goals: Returned to baseline Health Concerns: Diabetes, question of ischemic colitis Plan of Treatment: Follow up with the primary care physician No new meds Assessment: Doing very well Patient Instructions: Ischemic Colitis (GEN) Discharge Date/Time: 07/26/25 09:40
== END 2025-07-26 09:40 | disposition home or self-care (01) | DRG 246 ==
LOC: HO.ED 17:21 → HO.EDOVER 19:27 → HO.S3 22:43
PROVIDERS: Hospitalist; Physician Assistant; Student in an Organized Health Care Education/Training Program; Surgery; Admitting Provider Surgery; Emergency Provider Emergency Medicine; PCP Internal Medicine; Visit Provider Surgery
DX: K55.9 Vascular disorder of intestine, unspecified (principal); E87.21 Acute metabolic acidosis; E11.40 Type 2 diabetes mellitus with diabetic neuropathy, unspecified; K31.84 Gastroparesis; I25.10 Atherosclerotic heart disease of native coronary artery without angina pectoris; I48.0 Paroxysmal atrial fibrillation; E86.0 Dehydration; E66.813 Obesity, class 3; E11.43 Type 2 diabetes mellitus with diabetic autonomic (poly)neuropathy; Z68.38 Body mass index [BMI] 38.0-38.9, adult; Z87.891 Personal history of nicotine dependence; Z96.643 Presence of artificial hip joint, bilateral; Z95.1 Presence of aortocoronary bypass graft; Z71.3 Dietary counseling and surveillance; Z79.4 Long term (current) use of insulin; Z79.01 Long term (current) use of anticoagulants; Z79.899 Other long term (current) drug therapy
CPT/HCPCS: 36415; 74174; 80048; 80053; 82010; 82803; 82947; 83605; 83690; 85025; 85027; 85610; 85730; 93005; 97161; 99285; J0131; J0696; J0737; J1171; J1200; J1364; J1644; J1836; J1885; J2250; J2405; J2470; J2765; J7120; Q9967

== ENCOUNTER → 2025-07-19 14:15 | Outpatient (BNV) | payer OTHER, SELFPAY | PROVIDERS: Emergency Provider Emergency Medicine; Visit Provider Radiology Diagnostic Radiology | DX: K63.89 Other specified diseases of intestine (principal); I70.1 Atherosclerosis of renal artery; I25.84 Coronary atherosclerosis due to calcified coronary lesion; I77.4 Celiac artery compression syndrome | CPT/HCPCS: 74174 ==

== ENCOUNTER 2025-07-19 18:52 | Outpatient (BNV) | payer OTHER, SELFPAY | END 2025-07-19 21:49 | PROVIDERS: Admitting Provider Surgery; Emergency Provider Emergency Medicine; Visit Provider Internal Medicine Cardiovascular Disease | DX: R94.31 Abnormal electrocardiogram [ECG] [EKG] (principal); Z13.6 Encounter for screening for cardiovascular disorders | CPT/HCPCS: 93010 ==

== ENCOUNTER → 2025-07-19 18:52 | Outpatient (BNV) | payer OTHER, SELFPAY | PROVIDERS: Admitting Provider Surgery; Emergency Provider Emergency Medicine; Visit Provider Physician Assistant | DX: K55.9 Vascular disorder of intestine, unspecified (principal) | CPT/HCPCS: 99223; 99232; 99233 ==

== ENCOUNTER → 2025-07-19 18:52 | Outpatient (BNV) | payer OTHER, SELFPAY | PROVIDERS: Admitting Provider Surgery; Emergency Provider Emergency Medicine; Visit Provider Internal Medicine Gastroenterology | DX: K55.9 Vascular disorder of intestine, unspecified (principal) | CPT/HCPCS: 99223; 99232 ==

== ENCOUNTER → 2025-07-19 18:52 | Outpatient (BNV) | payer OTHER, SELFPAY | PROVIDERS: Admitting Provider Surgery; Emergency Provider Emergency Medicine; Visit Provider Surgery Vascular Surgery | DX: K55.9 Vascular disorder of intestine, unspecified (principal) | CPT/HCPCS: 99222; 99232 ==

== ENCOUNTER → 2025-07-19 18:52 | Outpatient (BNV) | payer OTHER, SELFPAY | PROVIDERS: Admitting Provider Surgery; Emergency Provider Emergency Medicine; Visit Provider Surgery | DX: K55.9 Vascular disorder of intestine, unspecified (principal) | CPT/HCPCS: 99223; 99499 ==

== ENCOUNTER 2025-08-14 06:06 | Inpatient (IN) | payer OTHER, SELFPAY ==
[2025-08-14] VITALS (9 sets, daily range): BP systolic 115–227; BP diastolic 56–121; PULSE 97–113; RESP 14–23; TEMP 36.6; O2SAT 94–100; BMI 38.0
--- NOTE | 2025-08-14 | ECG_ITS ---
Test Reason : HTN Blood Pressure : */* mmHG Vent. Rate : 108 BPM Atrial Rate : 108 BPM P-R Int : 200 ms QRS Dur : 88 ms QT Int : 340 ms P-R-T Axes : 56 -20 67 degrees QTcB Int : 455 ms Sinus tachycardia Possible Left atrial enlargement Nonspecific ST abnormality Abnormal ECG When compared with ECG of 19-Jul-2025 21:49, Nonspecific T wave abnormality no longer evident in Anterior leads Referred By: Generic ED Physician Electronically Signed By: Kenny Pond
--- NOTE | ~2025-08-14 | CT_ITS ---
CLINICAL HISTORY: continued abd pain, nausea and vomiting --- Additional Notes or Special Instructions: patient refused @ 1500, will check back later CT abdomen and pelvis with contrast Comparison: 05/29/2025 Findings: Stable bilateral lower lobe scarring. No acute lung base abnormality. Mild degenerative change throughout spine. Status post L4-S1 fusion and laminectomy. Bilateral hip prostheses noted. Old rib fracture deformities noted. No acute bony abnormality noted. Medial duodenal diverticulum noted. No free air in the abdomen. Liver and spleen within normal limits. Pancreas and adrenal glands unremarkable. Cholecystectomy. No significant focal renal abnormalities. Small renal cysts, no stones or hydronephrosis. Abdominal aorta is normal in caliber. No free fluid or adenopathy in the pelvis. No diverticulitis. Appendix unremarkable. Impression: No acute process This document has been electronically signed by: Tariq Snow MD on 08/18/2025 00:53:15
--- NOTE | ~2025-08-14 | CT_ITS ---
CLINICAL HISTORY: hx of ischemic bowel, severe abd pain CTA abdomen and pelvis with IV contrast. 3D postprocessing Comparison: CT/OK/SR - CT ABDOMEN PELVIS ANGIOGRAPHY WITH IV CONTRAST - 07/19/25 16:11 EDT Findings: Chronic pleural-parenchymal disease lung bases. Small sliding hiatal hernia. No dependent layering pleural effusions. The heart is not enlarged. Normal caliber abdominal aorta. There is calcified atherosclerotic disease at the ostia of the celiac trunk and SMA but no critical stenosis. No proximal SMA thrombosis. Hypoperfusion of the distal right and middle colonic branches of the SMA is equivocal conventional arteriogram may be of further diagnostic value. Similar findings were demonstrated previously. The proximal inferior mesenteric artery was patent. This exam was compromised by motion. Stable calcified plaque of the ostia of the renal arteries. Calcified atherosclerotic disease:Severe Liver normal size and contour. No focal hepatic lesions. Post cholecystectomy. Homogeneous enhancement of the pancreas. No splenomegaly. Normal adrenal glands. Symmetrical renal excretion with no segmental or diffuse renal parenchymal disease or evidence of obstructive uropathy/hydroureteronephrosis.. Bowel demonstrates a nonobstructive pattern. No free air. Normal appendix and terminal ileum. No significant diverticular disease. No pneumatosis intestinalis or portal venous air. No intraperitoneal or retroperitoneal pelvic or inguinal masses lymphadenopathy or abnormal fluid collections.. Over distention of the urinary bladder. Streak artifact from bilateral total hip arthroplasties.. Posterior fusion with intrapedicular screws L4 through S1. No acute compression fractures. Impression: 1. No abdominal aortic aneurysm or dissection 2. Stable extensive calcified atherosclerotic disease with stable plaque at the ostia of the mesenteric vessels and renal arteries. Equivocal hypoperfusion of the right and middle distal colonic branches of the SMA. No proximal occlusive thrombus is demonstrated. Conventional arteriogram may be of further diagnostic value this exam was subject to excessive motion. Similar findings were demonstrated previously no free air or pneumatosis intestinalis. Slight increased stool burden. Can not exclude mild colitis. Normal appendix. No significant diverticular disease. 3. Stable ancillary findings This document has been electronically signed by: Aki Dorman MD on 08/14/2025 12:11:51
--- OUTSIDE RECORDS SUMMARY | 2025-08-14 06:33 | XMS_ITS | Clinical Summary ---
Author Organization [facility] Address [address] [place] [phone] Phone Care Team Providers Care Service Station Cashier Name Role Phone Marley Rick MD Primary Care Provider [phone] Social History Tobacco Use Types Packs/Day Years [...] file Medical Devices Not on file Insurance [facility] [employer] [place] [address] [place] [address] [employer] [address] [place] [address] [employer] [facility] [employer] Care Teams Service Station Cashier Relationship Specialty Start Date End Date Marley Rick MD [address] [place] [id number] PCP - General Internal Medicine 02/07/25 Additional Source Comments The information contained in this document represents components of the legal health record. It is not the complete legal health record.[facility]
[2025-08-14 07:03] LABS: Hematocrit 42.0 % (42.0-52.0); Hemoglobin 14.6 g/dl (14.0-18.0); Imm Gran Abs Auto 0.06 X10*3/uL (0.00-0.03); Imm Gran Pct Auto 0.4 % (0.0-0.4); Lymphocytes Absolute Auto 2.1 X10*3/uL (1.2-4.9); MANUAL DIFF FLAG SCAN; Mean Corpuscular HGB Conc 34.8 g/dl (31.0-36.0); Mean Corpuscular Hemoglobin 29.4 pg (27.0-33.0); Mean Corpuscular Volume 84.7 fL (80.0-98.0); NRBC Abs Auto 0.000 X10*3/uL (0.0-0.012); NRBC Pct Auto 0.0 /100WBC (0.0-0.2); PLT CLUMP 1; Red Blood Count 4.96 X10*6/uL (4.60-5.80); SCAN SMEAR FLAG 1
[2025-08-14 07:04] LABS: White Blood Count 14.4 X10*3/uL (4.8-10.8)
[2025-08-14 07:26] LABS: Platelet Count 279 X10*3/uL (160-400)
--- NOTE | 2025-08-14 07:56 | ED.ABDPAIN ---
HPI - Abdominal Pain General Chief Complaint: Abdominal Pain Stated Complaint: Abd Pain / Vomiting Time Seen by Provider: 08/14/25 07:55 Source: patient and RN notes reviewed Mode of arrival: ambulatory Limitations: no limitations History of Present Illness ED Provider: Joselin Benjamin PA-C HPI narrative: This is a 64-year-old male, with a past medical history of gastroparesis with multiple emergency room visits, hypertension, diabetes, AFib on Xarelto, who presents emergency department with concerns of abdominal pain and vomiting for the last 3 days. Of note, patient was seen in June with a similar presentation and was diagnosed with ischemic colitis without perforation. He was admitted for 7 days, made to be NPO, fluid resuscitation, IV antibiotics and anticoagulation with heparin drip. Patient denies any fevers or chills. He does report some shortness of breath. Patient states that his pain feels just like the ischemic colitis that he had back in June. He admits that he has had multiple episodes of vomiting, states that he vomits between 4-5 times per day. He states that he last had a bowel movement yesterday, which was normal. Denies any hemoptysis. No bloody or black stool. He otherwise denies any chest pain, shortness of breath, headache, dizziness, blurred vision. Denies any double vision. He initially denied any substance abuse however eventually admits to using a vape pen with THC, denies alcohol use. No other drug use. No other complaints or concerns at this time. MD elicited complaint: abdominal pain Location: epigastric Severity: moderate Exacerbating factors: nothing Relieving factors: nothing Associated symptoms: denies other symptoms Related Data Home Medications ?Medication ?Instructions ?Recorded ?Confirmed ezetimibe 10 mg tablet 10 mg PO BEDTIME 01/03/22 08/14/25 gabapentin 300 mg capsule 300 mg PO TID 01/03/22 08/14/25 insulin glargine 100 unit/mL 10 unit subcut BEDTIME 01/03/22 08/14/25 subcutaneous solution (Lantus U-100 Insulin) isosorbide mononitrate 30 mg 30 mg PO DAILY 01/03/22 08/14/25 tablet,extended release 24 hr loratadine 10 mg tablet 10 mg PO DAILY 01/03/22 08/14/25 losartan 25 mg tablet 25 mg PO DAILY 01/03/22 08/14/25 meclizine 25 mg tablet 25 mg PO TID PRN Dizziness Or 01/03/22 08/14/25 Vertigo rosuvastatin 40 mg tablet 40 mg PO BEDTIME 01/03/22 08/14/25 aspirin 81 mg tablet,delayed 81 mg PO DAILY 08/04/22 08/14/25 release furosemide 20 mg tablet 20 mg PO DAILY 11/13/22 08/14/25 metoprolol succinate 25 mg 25 mg PO DAILY 10/14/24 08/14/25 tablet,extended release 24 hr insulin lispro 100 unit/mL See Protocol subcut QIDACHS 12/16/24 08/14/25 subcutaneous solution rivaroxaban 20 mg tablet (Xarelto) 20 mg PO DAILY@1700 12/16/24 08/14/25 insulin glargine 100 unit/mL 8 unit subcut DAILY 03/23/25 08/14/25 subcutaneous solution (Lantus U-100 Insulin) glucagon 1 mg/0.2 mL subcutaneous 1 mg subcut ONCE PRN Hypoglycemia 05/26/25 08/14/25 auto-injector (GvTyche HypoPen 2-Pack) pantoprazole 40 mg tablet,delayed 40 mg PO BID@0630,1630 05/26/25 08/14/25 release ondansetron 4 mg disintegrating 4 mg PO Q8H PRN Nausea And Vomiting 07/19/25 08/14/25 tablet venlafaxine 100 mg tablet 100 mg PO BID 08/14/25 08/14/25 Previous Rx's ?Medication ?Instructions ?Recorded walker #1 ea 01/11/22 walker #1 ea 01/15/22 Band-Aid Gauze Pads 4 X 4 #25 ea 04/16/22 bandage (gauze bandage) elastic bandage 6 X 1.8 yard #6 ea 04/16/22 off loading boot (Aircast off #1 ea 04/16/22 loading boot) calcium alginate ag #5 ea 04/23/22 sterile gauze #40 ea 04/23/22 oxycodone 10 mg tablet 10 mg PO Q4H PRN Pain #10 tabs 03/29/25 metoclopramide HCl 10 mg tablet 10 mg PO Q8H PRN nausea and 05/24/25 (Reglan) vomiting #90 tabs Allergies Allergy/AdvReac Type Severity Reaction Status Date / Time morphine AdvReac Intermediate Hallucinati Verified 08/14/25 06:26 ons Review of Systems Review of Systems Constitutional : No Fever, No Chills ENT/Mouth : No sore throat, No Rhinorrhea Eyes: No Eye Pain, No Swelling, No Redness Cardiovascular : No Chest Pain, No SOB Respiratory : No Cough, No Sputum Gastrointestinal : No Nausea, No Vomiting, No Diarrhea, No abdominal Pain Genitourinary : No Dysuria, No Hematuria Musculoskeletal : No joint pain, No Myalgias, No Joint Swelling Skin : No Skin Lesions Neuro : No Weakness, No Numbness, No Headache All other systems reviewed and are negative Yes all other systems are reviewed and are negative Constitutional: Reports as per [facility] Past Medical History Medical History (Updated 08/14/25 @ 17:48 by PERRY Esteban) Hypertensive urgency Abdominal pain PVD (peripheral vascular disease) Gastroparesis DKA (diabetic ketoacidosis) Obesity (BMI 30-39.9) PAD (peripheral artery disease) Afib Amputation of left great toe Lower limb amputation, great toe CAD (coronary artery disease) DMII (diabetes mellitus, type 2) Orthopedic hardware present Hyperglycemia Cellulitis Asthma Diabetes Hypertension FHx: bilateral hip replacements Surgical History History of amputation of toe (07/29/22) History of amputation of great toe (01/07/22) History of back surgery History of neck surgery History of ankle surgery H/O bilateral hip replacements S/P quadruple vessel bypass Family History Family History Father Cancer of neck Mother Uterus cancer Other No family history of coronary artery disease Social History Social History Household Members: Spouse Household Members Other:: 3 Housing: Apartment Are you a primary critical care clinical nurse specialist to a significant other at home: No Do you presently have visiting nurse or other home services: No Alcohol intake: never Comment: refused bed or chair alarm Patient Tobacco Use Status: Former Tobacco user Tobacco use type: Cigarette Smoked in Last 30 Days: No e-Cigarette/Vaping Use: Never Used Second Hand Smoke Exposure: No Use of substances other than those prescribed or required for medical reasons: No Substance Use Type: Marijuana Advance Directives: Yes Advance Directives on File: Yes Advance Directives Date on File: 07/20/25 service: No Current occupational status: disabled Physical Exam ED Vital Signs: Vital Signs - 24 hr 08/14/25 06:24 08/14/25 09:01 08/14/25 09:50 Temperature 97.9 F 98 F Pulse Rate 111 H 99 104 H Respiratory Rate 23 H 14 20 Blood Pressure 227/112 H 122/65 196/100 H Pulse Oximetry 99 96 98 Oxygen Delivery Method Room Air Room Air Room Air 08/14/25 10:36 08/14/25 11:00 08/14/25 12:18 Temperature Pulse Rate 100 108 H 97 Respiratory Rate 17 16 15 Blood Pressure 152/71 H 158/104 H 115/84 Pulse Oximetry 94 98 Oxygen Delivery Method Room Air Room Air Room Air 08/14/25 15:24 08/14/25 15:33 Temperature Pulse Rate 113 H Respiratory Rate 17 Blood Pressure 209/121 H 202/115 H Pulse Oximetry 97 Oxygen Delivery Method Room Air BMI result Body Mass Index 38.0 Const General: cooperative, comfortable and no acute distress Orientation/consciousness: patient oriented x3 Limitations: no limitations HENMT Head: Yes normal to inspection, Yes normocephalic and Yes atraumatic Ears: hearing grossly normal bilaterally General nose exam: Normal external nose present Face and sinus: Yes normal facial exam Mouth: Normal oral and palatal mucosa present, oropharynx normal and moist mucous membranes Throat: Yes posterior oropharynx normal Eyes General: appearance normal, both eyes and all related structures Eyelids: Yes eyelids normal Conjunctivae: conjunctivae normal Sclerae: sclerae normal Pupils: Equal, round and reactive pupils present EOM: EOMs intact bilaterally Neck Neck: Yes normal visual inspection, Yes full ROM and Yes no lymphadenopathy Lymphatic: no lymphadenopathy noted Chest Chest palpation & inspection: normal inspection of the chest Resp Effort & Inspection: normal respiratory effort and able to speak in complete sentences Auscultation: clear to auscultation bilaterally, no crackles, no rales, no rhonchi and no wheezes Cardio Rate: regular rate Rhythm: regular rhythm Heart sounds: S1 normal heart sound present and S2 normal heart sound present GI Other: Abdomen is soft however with exquisite tenderness to palpation throughout, more pronounced in the epigastrium and right upper quadrant. Patient immediately vomited after light palpation to the abdomen. Pain seems to be out of proportion. Inspection: Yes normal to inspection Skin General skin exam: no rashes or lesions noted Trauma: no lacerations or abrasions Wounds: no wounds Neuro General: patient oriented x3 and moves all extremities Cranial nerves: Yes Equal, round and reactive pupils present Extrem General: Yes normal to inspection Right upper extremity: normal to inspection Left upper extremity: normal to inspection Right lower extremity: normal to inspection Left lower extremity: normal to inspection Medical Decision Making Medical Decision Making MDM Narrative: This is a 64-year-old male, with a past medical history of gastroparesis with multiple emergency room visits, hypertension, diabetes, AFib on Xarelto, who presents emergency department with concerns of abdominal pain and vomiting for the last 3 days. On arrival, patient hypertensive at 227/112, pulse 111, respirations 23, he is afebrile. Vital signs likely secondary to exquisite pain throughout. Patient's abdomen is soft however with exquisite tenderness in the epigastrium and right upper quadrant. Patient does have leukocytosis at 14.4, still awaiting lactic and chemistry at this time. Patient was not assessed until approximately 8:00 a.m. this morning due to ER wait times. Patient did have a history of ischemic colitis in June that he was admitted for. Given pain out of proportion exam with very remote history of ischemic colitis, I will obtain a CT angio of the abdomen. Will provide patient with IV fluid resuscitation, Zofran, ceftriaxone and Dilaudid. Added beta hydroxybutyrate, VBG, lactic and blood cultures. 9:41 AM 08/14/2025 (Joselin Benjamin PA-C): Patient lactic returns at 3.3, he has already receiving IV fluids, and has gotten a dose of IV antibiotics. He does not have an anion gap, and he is not acidotic on VBG. Patient with hyperglycemia without evidence of DKA, we are awaiting CT angio of the abdomen. His blood pressure has significantly improved to 122/65 after IV resuscitation and IV pain medications and antiemetics. Beta hydroxybutyrate is 2.6. Fluid exclusion due to patient's severe obesity. He was given 30 cc/kilogram IV bolus based on ideal body weight. His lactic acid is elevated at 3.3 however infection is not suspected, we did cover him with IV ceftriaxone however lactic acidosis is not suspected due to infection like process. We will continue to closely monitor. He does report increasing nausea, treated with 2nd dose of IV Zofran. We will continue with IV resuscitation, closely monitor blood pressure, also given another dose of Dilaudid and IV Tylenol. Overall clinically, patient appears to be more comfortable than his initial arrival however we will continue to monitor pending workup today. 1:20 PM 08/14/2025 (Joselin Benjamin PA-C): CT returns, revealing no abdominal aortic aneurysm or dissection, there is a stable extensive calcified atherosclerotic disease is stable plaque at the ostia of the mesenteric vessels and renal arteries. Equivocal hypoperfusion of the right and middle distal colonic branches of the SMA, no occlusive thrombus demonstrated. Conventional arteriogram may be of further diagnostic value this exam was subjective to excessive motion. Similar findings previously demonstrated. No free air. Slight increased stool burden, can not exclude mild colitis. Given significant pain despite multiple pain medications, as well as lactic acidosis, increase in troponin which is likely attributed to demand, patient would benefit from admission. Discussed case with hospitalist. 3:04 PM 08/14/2025 (Joselin Benjamin PA-C): Bed request not officially approved however repeated 3rd troponin given delta change, critical troponin of 197. Repeat EKG was performed revealing sinus tachycardia, without any dynamic changes. This EKG was reviewed by Dr. Pond. Recommending blood pressure management. Discussed this with my attending physician, patient reporting a nausea therefore will medicate with Reglan and Benadryl. We are hesitant and starting on antihypertensive medications due to concern for hypoperfusion, and profound improvement with IV pain medication. Differential Diagnosis Differential Diagnoses: The differential diagnosis associated with the presentation includes Peptic ulcer disease, gastritis, pancreatitis, bowel obstruction, gastroparesis, mesenteric ischemia Consult Healthcare Provider Management of the patient was discussed with: Meat Counter Clerk Dr. Pond, cardiology Lab Data [facility] Lab Attestation statement: I reviewed the patient's lab results. see mdm 08/14/25 06:32 08/14/25 07:29 Labs: Lab Results 08/14/25 08/14/25 08/14/25 Range/Units 06:32 07:29 08:44 WBC 14.4 H (4.8-10.8) X10*3/uL RBC 4.96 D (4.60-5.80) X10*6/uL Hgb 14.6 D (14.0-18.0) g/dl Hct 42.0 D (42.0-52.0) % MCV 84.7 (80.0-98.0) fL MCH 29.4 (27.0-33.0) pg MCHC 34.8 (31.0-36.0) g/dl RDW 13.4 (11.0-16.0) % Plt Count 279 D (160-400) X10*3/uL MPV 10.6 (9.4-12.4) fL Immature Gran % (Auto) 0.4 (0.0-0.4) % Neut % (Auto) 79.5 H (45-73) % Lymph % (Auto) 14.8 L (20-40) % [place] % (Auto) 4.6 (2-11) % Eos % (Auto) 0.3 (0-4) % Baso % (Auto) 0.4 (0-2) % Lymph # (Auto) 2.1 (1.2-4.9) X10*3/uL [place] # (Auto) 0.7 (0.1-1.2) X10*3/uL Eos # (Auto) 0.0 (0.0-0.4) X10*3/uL Baso # (Auto) 0.1 (0.0-0.2) X10*3/uL Abs Immat Gran (auto) 0.06 H (0.00-0.03) X10*3/uL Absolute Neuts (auto) 11.5 H (2.0-8.3) x10*3/uL Absolute Nucleated RBC 0.000 (0.0-0.012) X10*3/uL Nucleated RBC % (auto) 0.0 (0.0-0.2) /100WBC Smear Tech's Comments VERIFIED ESR 20 H (0-15) MM/HR Hold Purple Top SEE NOTE VBG pH (7.32-7.43) VBG pCO2 mmHg VBG pO2 mmHg VBG HCO3 (22-26) mmol/L VBG O2 Saturation % VBG Base Excess mmol/L Sodium 137 (135-145) mmol/L Potassium 3.8 (3.3-5.1) mmol/L Chloride 107 (96-108) mmol/L Carbon Dioxide 14 L (22-29) mmol/L Anion Gap 20 (12-20) BUN 8 L (9-16) mg/dL Creatinine 0.70 (0.5-1.4) mg/dL Estim Creat Clear Calc 130.2 Estimated GFR > 60 POC Glucose (60-115) mg/dL Random Glucose 416 H* (60-115) mg/dL Lactic Acid 3.3 H* (0.5-2.0) mmol/L Lactic Acid F/U @ 2Hr (0.5-2.0) mmol/L Lactic Acid F/U @ 4Hr (0.5-2.0) mmol/L Calcium 9.5 D (8.4-10.2) mg/dL Magnesium 2.0 (1.6-2.6) mg/dL Total Bilirubin 0.9 (0.0-1.0) mg/dL AST 17 (5-37) U/L ALT < 6 (0-40) U/L Alkaline Phosphatase 76 (39-117) U/L Total Creatine Kinase 39 (38-174) U/L Troponin I High Sens 5.1 (<3.5-35.0) ng/L C-Reactive Protein 0.23 (< or = 0.50) mg/dL Total Protein 6.9 (6.5-8.0) g/dL Albumin 4.3 (3.5-5.0) g/dL Lipase < 4 L (8-78) U/L Beta-Hydroxybutyrate 2.61 H (0.02-0.27) mmol/L Urine Color Urine Appearance Urine pH (5.0-9.0) Ur Specific [place] (1.005-1.025) Urine Protein (Neg-Trace) mg/dL Urine Glucose (UA) (Negative) mg/dL Urine Ketones (Negative) mg/dL Urine Blood (Negative) Urine Nitrite (Negative) Ur Leukocyte Esterase (Negative) Urine RBC (0-2) /HPF Urine WBC (0-5) /HPF Ur Squamous Epith Cells (0-2) /HPF Urine Bacteria (None Seen) Hyaline Casts (0-2) /LPF Urine Opiates Screen (Not Detect) Ur Buprenorphine Scrn (Not Detect) ng/mL Ur Oxycodone Screen (Not Detect) ng/mL Urine Methadone Screen (Not Detect) ng/mL Urine Fentanyl Screen (Not Detect) Ur Barbiturates Screen (Not Detect) Ur Phencyclidine Scrn (Not Detect) Ur Amphetamines Screen (Not Detect) U Benzodiazepines Scrn (Not Detect) Urine Cocaine Screen (Not Detect) U Marijuana (THC) Screen (Not Detect) Ethyl Alcohol < 10 mg/dL 08/14/25 08/14/25 08/14/25 Range/Units 08:50 10:01 10:07 WBC (4.8-10.8) X10*3/uL RBC (4.60-5.80) X10*6/uL Hgb (14.0-18.0) g/dl Hct (42.0-52.0) % MCV (80.0-98.0) fL MCH (27.0-33.0) pg MCHC (31.0-36.0) g/dl RDW (11.0-16.0) % Plt Count (160-400) X10*3/uL MPV (9.4-12.4) fL Immature Gran % (Auto) (0.0-0.4) % Neut % (Auto) (45-73) % Lymph % (Auto) (20-40) % [place] % (Auto) (2-11) % Eos % (Auto) (0-4) % Baso % (Auto) (0-2) % Lymph # (Auto) (1.2-4.9) X10*3/uL [place] # (Auto) (0.1-1.2) X10*3/uL Eos # (Auto) (0.0-0.4) X10*3/uL Baso # (Auto) (0.0-0.2) X10*3/uL Abs Immat Gran (auto) (0.00-0.03) X10*3/uL Absolute Neuts (auto) (2.0-8.3) x10*3/uL Absolute Nucleated RBC (0.0-0.012) X10*3/uL Nucleated RBC % (auto) (0.0-0.2) /100WBC Smear Tech's Comments ESR (0-15) MM/HR Hold Purple Top VBG pH 7.43 (7.32-7.43) VBG pCO2 19 mmHg VBG pO2 110 mmHg VBG HCO3 13 L (22-26) mmol/L VBG O2 Saturation 100.0 % VBG Base Excess -8.1 mmol/L Sodium (135-145) mmol/L Potassium (3.3-5.1) mmol/L Chloride (96-108) mmol/L Carbon Dioxide (22-29) mmol/L Anion Gap (12-20) BUN (9-16) mg/dL Creatinine (0.5-1.4) mg/dL Estim Creat Clear Calc Estimated GFR POC Glucose 322 H (60-115) mg/dL Random Glucose (60-115) mg/dL Lactic Acid (0.5-2.0) mmol/L Lactic Acid F/U @ 2Hr (0.5-2.0) mmol/L Lactic Acid F/U @ 4Hr (0.5-2.0) mmol/L Calcium (8.4-10.2) mg/dL Magnesium (1.6-2.6) mg/dL Total Bilirubin (0.0-1.0) mg/dL AST (5-37) U/L ALT (0-40) U/L Alkaline Phosphatase (39-117) U/L Total Creatine Kinase (38-174) U/L Troponin I High Sens 14.1 D (<3.5-35.0) ng/L C-Reactive Protein (< or = 0.50) mg/dL Total Protein (6.5-8.0) g/dL Albumin (3.5-5.0) g/dL Lipase (8-78) U/L Beta-Hydroxybutyrate (0.02-0.27) mmol/L Urine Color Urine Appearance Urine pH (5.0-9.0) Ur Specific [place] (1.005-1.025) Urine Protein (Neg-Trace) mg/dL Urine Glucose (UA) (Negative) mg/dL Urine Ketones (Negative) mg/dL Urine Blood (Negative) Urine Nitrite (Negative) Ur Leukocyte Esterase (Negative) Urine RBC (0-2) /HPF Urine WBC (0-5) /HPF Ur Squamous Epith Cells (0-2) /HPF Urine Bacteria (None Seen) Hyaline Casts (0-2) /LPF Urine Opiates Screen (Not Detect) Ur Buprenorphine Scrn (Not Detect) ng/mL Ur Oxycodone Screen (Not Detect) ng/mL Urine Methadone Screen (Not Detect) ng/mL Urine Fentanyl Screen (Not Detect) Ur Barbiturates Screen (Not Detect) Ur Phencyclidine Scrn (Not Detect) Ur Amphetamines Screen (Not Detect) U Benzodiazepines Scrn (Not Detect) Urine Cocaine Screen (Not Detect) U Marijuana (THC) Screen (Not Detect) Ethyl Alcohol mg/dL 08/14/25 08/14/25 08/14/25 Range/Units 11:06 11:39 12:59 WBC (4.8-10.8) X10*3/uL RBC (4.60-5.80) X10*6/uL Hgb (14.0-18.0) g/dl Hct (42.0-52.0) % MCV (80.0-98.0) fL MCH (27.0-33.0) pg MCHC (31.0-36.0) g/dl RDW (11.0-16.0) % Plt Count (160-400) X10*3/uL MPV (9.4-12.4) fL Immature Gran % (Auto) (0.0-0.4) % Neut % (Auto) (45-73) % Lymph % (Auto) (20-40) % [place] % (Auto) (2-11) % Eos % (Auto) (0-4) % Baso % (Auto) (0-2) % Lymph # (Auto) (1.2-4.9) X10*3/uL [place] # (Auto) (0.1-1.2) X10*3/uL Eos # (Auto) (0.0-0.4) X10*3/uL Baso # (Auto) (0.0-0.2) X10*3/uL Abs Immat Gran (auto) (0.00-0.03) X10*3/uL Absolute Neuts (auto) (2.0-8.3) x10*3/uL Absolute Nucleated RBC (0.0-0.012) X10*3/uL Nucleated RBC % (auto) (0.0-0.2) /100WBC Smear Tech's Comments ESR (0-15) MM/HR Hold Purple Top VBG pH (7.32-7.43) VBG pCO2 mmHg VBG pO2 mmHg VBG HCO3 (22-26) mmol/L VBG O2 Saturation % VBG Base Excess mmol/L Sodium (135-145) mmol/L Potassium (3.3-5.1) mmol/L Chloride (96-108) mmol/L Carbon Dioxide (22-29) mmol/L Anion Gap (12-20) BUN (9-16) mg/dL Creatinine (0.5-1.4) mg/dL Estim Creat Clear Calc Estimated GFR POC Glucose 324 H (60-115) mg/dL Random Glucose (60-115) mg/dL Lactic Acid (0.5-2.0) mmol/L Lactic Acid F/U @ 2Hr 2.4 H* (0.5-2.0) mmol/L Lactic Acid F/U @ 4Hr (0.5-2.0) mmol/L Calcium (8.4-10.2) mg/dL Magnesium (1.6-2.6) mg/dL Total Bilirubin (0.0-1.0) mg/dL AST (5-37) U/L ALT (0-40) U/L Alkaline Phosphatase (39-117) U/L Total Creatine Kinase (38-174) U/L Troponin I High Sens (<3.5-35.0) ng/L C-Reactive Protein (< or = 0.50) mg/dL Total Protein (6.5-8.0) g/dL Albumin (3.5-5.0) g/dL Lipase (8-78) U/L Beta-Hydroxybutyrate (0.02-0.27) mmol/L Urine Color Yellow Urine Appearance Clear Urine pH 6.0 (5.0-9.0) Ur Specific [place] >= 1.030 H (1.005-1.025) Urine Protein 30 (1+) H (Neg-Trace) mg/dL Urine Glucose (UA) >=1000 H (Negative) mg/dL Urine Ketones 40 (Negative) mg/dL Urine Blood Negative (Negative) Urine Nitrite Negative (Negative) Ur Leukocyte Esterase Negative (Negative) Urine RBC 0-2 (0-2) /HPF Urine WBC 0-5 (0-5) /HPF Ur Squamous Epith Cells 0-2 (0-2) /HPF Urine Bacteria None Seen (None Seen) Hyaline Casts 0-2 (0-2) /LPF Urine Opiates Screen Not Detected (Not Detect) Ur Buprenorphine Scrn Not Detected (Not Detect) ng/mL Ur Oxycodone Screen Positive H (Not Detect) ng/mL Urine Methadone Screen Not Detected (Not Detect) ng/mL Urine Fentanyl Screen Not Detected (Not Detect) Ur Barbiturates Screen Not Detected (Not Detect) Ur Phencyclidine Scrn Not Detected (Not Detect) Ur Amphetamines Screen Not Detected (Not Detect) U Benzodiazepines Scrn Not Detected (Not Detect) Urine Cocaine Screen Not Detected (Not Detect) U Marijuana (THC) Screen POSITIVE H (Not Detect) Ethyl Alcohol mg/dL 08/14/25 08/14/25 Range/Units 13:58 14:07 WBC (4.8-10.8) X10*3/uL RBC (4.60-5.80) X10*6/uL Hgb (14.0-18.0) g/dl Hct (42.0-52.0) % MCV (80.0-98.0) fL MCH (27.0-33.0) pg MCHC (31.0-36.0) g/dl RDW (11.0-16.0) % Plt Count (160-400) X10*3/uL MPV (9.4-12.4) fL Immature Gran % (Auto) (0.0-0.4) % Neut % (Auto) (45-73) % Lymph % (Auto) (20-40) % [place] % (Auto) (2-11) % Eos % (Auto) (0-4) % Baso % (Auto) (0-2) % Lymph # (Auto) (1.2-4.9) X10*3/uL [place] # (Auto) (0.1-1.2) X10*3/uL Eos # (Auto) (0.0-0.4) X10*3/uL Baso # (Auto) (0.0-0.2) X10*3/uL Abs Immat Gran (auto) (0.00-0.03) X10*3/uL Absolute Neuts (auto) (2.0-8.3) x10*3/uL Absolute Nucleated RBC (0.0-0.012) X10*3/uL Nucleated RBC % (auto) (0.0-0.2) /100WBC Smear Tech's Comments ESR (0-15) MM/HR Hold Purple Top VBG pH (7.32-7.43) VBG pCO2 mmHg VBG pO2 mmHg VBG HCO3 (22-26) mmol/L VBG O2 Saturation % VBG Base Excess mmol/L Sodium (135-145) mmol/L Potassium (3.3-5.1) mmol/L Chloride (96-108) mmol/L Carbon Dioxide (22-29) mmol/L Anion Gap (12-20) BUN (9-16) mg/dL Creatinine (0.5-1.4) mg/dL Estim Creat Clear Calc Estimated GFR POC Glucose (60-115) mg/dL Random Glucose (60-115) mg/dL Lactic Acid (0.5-2.0) mmol/L Lactic Acid F/U @ 2Hr (0.5-2.0) mmol/L Lactic Acid F/U @ 4Hr 2.4 H* (0.5-2.0) mmol/L Calcium (8.4-10.2) mg/dL Magnesium (1.6-2.6) mg/dL Total Bilirubin (0.0-1.0) mg/dL AST (5-37) U/L ALT (0-40) U/L Alkaline Phosphatase (39-117) U/L Total Creatine Kinase (38-174) U/L Troponin I High Sens 194.2 H* D (<3.5-35.0) ng/L C-Reactive Protein (< or = 0.50) mg/dL Total Protein (6.5-8.0) g/dL Albumin (3.5-5.0) g/dL Lipase (8-78) U/L Beta-Hydroxybutyrate (0.02-0.27) mmol/L Urine Color Urine Appearance Urine pH (5.0-9.0) Ur Specific [place] (1.005-1.025) Urine Protein (Neg-Trace) mg/dL Urine Glucose (UA) (Negative) mg/dL Urine Ketones (Negative) mg/dL Urine Blood (Negative) Urine Nitrite (Negative) Ur Leukocyte Esterase (Negative) Urine RBC (0-2) /HPF Urine WBC (0-5) /HPF Ur Squamous Epith Cells (0-2) /HPF Urine Bacteria (None Seen) Hyaline Casts (0-2) /LPF Urine Opiates Screen (Not Detect) Ur Buprenorphine Scrn (Not Detect) ng/mL Ur Oxycodone Screen (Not Detect) ng/mL Urine Methadone Screen (Not Detect) ng/mL Urine Fentanyl Screen (Not Detect) Ur Barbiturates Screen (Not Detect) Ur Phencyclidine Scrn (Not Detect) Ur Amphetamines Screen (Not Detect) U Benzodiazepines Scrn (Not Detect) Urine Cocaine Screen (Not Detect) U Marijuana (THC) Screen (Not Detect) Ethyl Alcohol mg/dL Independent Interpretation I performed an independent interpretation of an: EKG Interpretation: EKG performed at 6:22 a.m. : Sinus tachycardia at a ventricular rate of 108 beats per minute, [place] interval 200, QT QTC 340/455, no STEMI. EKG repeat performed at 1456: Sinus tachycardia at a ventricular rate of 112 beats per minute, [place] interval 148, QT QTC 326/444, no STEMI Radiology Impression Discussion of test interpretation with radiology: I have reviewed the radiologist's reading. Radiologist Impression: Findings: Chronic pleural-parenchymal disease lung bases. Small sliding hiatal hernia. No dependent layering pleural effusions. The heart is not enlarged. Normal caliber abdominal aorta. There is calcified atherosclerotic disease at the ostia of the celiac trunk and SMA but no critical stenosis. No proximal SMA thrombosis. Hypoperfusion of the distal right and middle colonic branches of the SMA is equivocal conventional arteriogram may be of further diagnostic value. Similar findings were demonstrated previously. The proximal inferior mesenteric artery was patent. This exam was compromised by motion. Stable calcified plaque of the ostia of the renal arteries. Calcified atherosclerotic disease:Severe Liver normal size and contour. No focal hepatic lesions. Post cholecystectomy. Homogeneous enhancement of the pancreas. No splenomegaly. Normal adrenal glands. Symmetrical renal excretion with no segmental or diffuse renal parenchymal disease or evidence of obstructive uropathy/hydroureteronephrosis.. Bowel demonstrates a nonobstructive pattern. No free air. Normal appendix and terminal ileum. No significant diverticular disease. No pneumatosis intestinalis or portal venous air. No intraperitoneal or retroperitoneal pelvic or inguinal masses lymphadenopathy or abnormal fluid collections.. Over distention of the urinary bladder. Streak artifact from bilateral total hip arthroplasties.. Posterior fusion with intrapedicular screws L4 through S1. No acute compression fractures. Impression: 1. No abdominal aortic aneurysm or dissection 2. Stable extensive calcified atherosclerotic disease with stable plaque at the ostia of the mesenteric vessels and renal arteries. Equivocal hypoperfusion of the right and middle distal colonic branches of the SMA. No proximal occlusive thrombus is demonstrated. Conventional arteriogram may be of further diagnostic value this exam was subject to excessive motion. Similar findings were demonstrated previously no free air or pneumatosis intestinalis. Slight increased stool burden. Can not exclude mild colitis. Normal appendix. No significant diverticular disease. 3. Stable ancillary findings This document has been electronically signed by: Aki Dorman MD on 08/14/2025 12:11:51 Dictated By: Aki Dorman MD Chronic Conditions Patient?s care impacted by: Diabetes Medications Administered Generic Name Dose Route Start Last Admin Trade Name Freq PRN Reason Stop Dose Admin Lactated Ringer's 1,000 mls @ 100 mls/hr 08/14/25 16:15 08/14/25 16:41 Lr IVCONT 100 mls/hr .Q10H WILLIAM Administration Sodium Chloride 1,000 mls @ 500 mls/hr 08/14/25 16:30 08/14/25 16:41 Ns IV 08/14/25 18:29 500 mls/hr .Q2H WILLIAM Administration Metronidazole 500 mg in 100 mls @ 100 mls/hr 08/14/25 17:00 08/14/25 17:20 Flagyl IV 100 mls/hr Q12H WILLIAM Administration Insulin Human Lispro 0 unit 08/14/25 16:30 08/14/25 17:52 Insulin Lispro 100 Unit/Ml 3 Ml Vial SUBCUT Not Given QIDACHS WILLIAM Protocol Pantoprazole Sodium 40 mg 08/14/25 16:30 08/14/25 17:01 Pantoprazole Sodium 40 Mg/10 Ml Vial IVPUSH 40 mg BID@0630,1630 WILLIAM Administration Discontinued Medications Generic Name Dose Route Start Last Admin Trade Name Freq PRN Reason Stop Dose Admin Ceftriaxone Sodium 1 gm 08/14/25 08:05 08/14/25 08:58 Ceftriaxone Sodium 1 Gm Vial IVPUSH 08/14/25 08:06 1 gm ONCE ONE Administration Diphenhydramine HCl 25 mg 08/14/25 14:36 08/14/25 14:45 Diphenhydramine Hcl 50 Mg/Ml Vial IVPUSH 08/14/25 14:37 25 mg ONCE ONE Administration Hydromorphone HCl 1 mg 08/14/25 08:03 08/14/25 08:29 Hydromorphone Hcl 1 Mg/Ml Syringe IVPUSH 08/14/25 08:04 1 mg ONCE ONE Administration Protocol Hydromorphone HCl 1 mg 08/14/25 09:51 08/14/25 10:01 Hydromorphone Hcl 1 Mg/Ml Syringe IVPUSH 08/14/25 09:52 1 mg ONCE ONE Administration Protocol Hydromorphone HCl 0.5 mg 08/14/25 15:38 08/14/25 15:49 Hydromorphone Hcl 1 Mg/Ml Syringe IVPUSH 08/14/25 15:39 0.5 mg ONCE ONE Administration Protocol Sodium Chloride 2,052 mls @ 2,052 mls/hr 08/14/25 08:03 08/14/25 10:13 Ns IV 08/14/25 09:02 Infused .Q1H STA Infusion Acetaminophen 1,000 mg in 100 mls @ 400 mls/hr 08/14/25 09:03 08/14/25 09:31 Ofirmev IV 08/14/25 09:17 Infused ONCE ONE Infusion Sodium Chloride 1,000 mls @ 999 mls/hr 08/14/25 12:11 08/14/25 13:18 Ns IV 08/14/25 13:11 Infused .Q1H1M ONE Infusion Iohexol 100 ml 08/14/25 10:23 08/14/25 10:23 Iohexol 350 Mg/Ml 100 Ml Infus..Btl IV 08/14/25 10:24 80 ml ONCE ONE Administration Metoclopramide HCl 10 mg 08/14/25 14:36 08/14/25 14:45 Metoclopramide Hcl 10 Mg/2 Ml Vial IVPUSH 08/14/25 14:37 10 mg ONCE ONE Administration Ondansetron HCl 4 mg 08/14/25 08:03 08/14/25 08:29 Ondansetron Hcl 4 Mg/2 Ml Vial IVPUSH 08/14/25 08:04 4 mg ONCE ONE Administration Ondansetron HCl 4 mg 08/14/25 09:39 08/14/25 09:49 Ondansetron Hcl 4 Mg/2 Ml Vial IVPUSH 08/14/25 09:40 4 mg ONCE ONE Administration Critical Care Time Critical Care Time Critical Care Time: Yes Total Critical Care Time: 70 Attestation: I have personally provided critical care time exclusive of time spent on separately billable procedures. Time includes review of lab data, radiology results, discussion with consultants, and monitoring for potential decompensation. Intervention performed as documented. Discharge Plan Discharge Clinical Impression: Abdominal pain, Ischemic bowel disease, Acidosis, lactic, Hyperglycemia due to diabetes mellitus, Elevated troponin
[2025-08-14 08:07] LABS: Troponin-I High Sensitivity 5.1 ng/L (<3.5-35.0)
[2025-08-14 08:14] LABS: Alanine Aminotransferase < 6 U/L (0-40); Albumin Level 4.3 g/dL (3.5-5.0); Alkaline Phosphatase 76 U/L (39-117); Anion Gap 20 (12-20); Aspartate Amino Transferase 17 U/L (5-37); Blood Urea Nitrogen 8 mg/dL (9-16); Calcium 9.5 mg/dL (8.4-10.2); Carbon Dioxide 14 mmol/L (22-29); Chloride 107 mmol/L (96-108); Creatinine Clr Calc Pharmacy 130.2; Estimated Glomerular Filt Rate > 60; Lipase < 4 U/L (8-78); Magnesium 2.0 mg/dL (1.6-2.6); Potassium 3.8 mmol/L (3.3-5.1); Sodium 137 mmol/L (135-145); Total Protein 6.9 g/dL (6.5-8.0)
--- NOTE | 2025-08-14 08:21 | PC.NURSE ---
PERRY Olivera came up to this Rn as charge to alert of pt and his BP/ POC at this time. This RN verbally asked if we are calling him as a sepsis alert at this time of 0820, per provider at this time she is not calling it even though she ordered the sepsis IVF/ antibiotic per PA getting ahead of POC, will determine if she is going to call a sepsis alert once Lactic acid results return, of which are being drawn at this time, primary RN aware of plan at this time.
[2025-08-14] MEDS: 0.9 % Sodium Chloride 2,052 ML 2052 ML IV (08:28)
--- NOTE | 2025-08-14 08:31 | PC.NURSE ---
Assumed care of patient, pt is A+OX4, anxious, cooperative .Pt was dry heaving, c/o 08/05 abdominal pain. Medicated per DEC. RR even and unlabored. Pt denies CP or SOB.
--- NOTE | 2025-08-14 08:45 | PC.NURSE ---
awaiting second set of cultures to start abx, pt hard stick, tech working on drawing now
[2025-08-14 09:09] LABS: Venous Blood Gas Refer to POC result
[2025-08-14 09:12] LABS: VBG HCO3 13 mmol/L (22-26); VBG O2 % Saturation 100.0 %
[2025-08-14 10:04] LABS: Glucose, Whole Blood 322 mg/dL (60-115)
[2025-08-14] MEDS: iohexoL 350 MG/ML 100 ML INFUS..BTL IV (10:23)
--- NOTE | 2025-08-14 10:31 | PC.NURSE ---
pt appears more comfortable after medications and fluids. RR even and unlabored, denies CP or SOB.
[2025-08-14 10:48] LABS: Troponin-I High Sensitivity 14.1 ng/L (<3.5-35.0)
[2025-08-14 10:50] LABS: Reflex Lactate? Lactic Acid Added
--- NOTE | 2025-08-14 11:38 | PC.NURSE ---
spoke with pt Holli, updated on plan of care- awaiting result of CT angio of abdomen
[2025-08-14 11:44] LABS: Appearance Urine Clear; Glucose Urine UA >=1000 mg/dL (Negative); PH 6.0 (5.0-9.0); Specific Gravity - Urine >= 1.030 (1.005-1.025); UMIC TRIGGER UACC YES
[2025-08-14 11:57] LABS: Cannabinoid Screen Urine POSITIVE (Not Detect)
[2025-08-14 12:12] LABS: ~Lactic Acid-LAB USE ONLY 2.4 mmol/L (0.5-2.0)
[2025-08-14 13:03] LABS: Glucose, Whole Blood 324 mg/dL (60-115)
[2025-08-14 13:44] LABS: Reflex Lactate? 2 Y
[2025-08-14 14:52] LABS: ~Lactic Acid-LAB USE ONLY 2.4 mmol/L (0.5-2.0)
--- NOTE | 2025-08-14 14:52 | ECG_ITS ---
Test Reason : TROP INCRASE Blood Pressure : */* mmHG Vent. Rate : 112 BPM Atrial Rate : 112 BPM P-R Int : 148 ms QRS Dur : 94 ms QT Int : 326 ms P-R-T Axes : 49 1 94 degrees QTcB Int : 444 ms Sinus tachycardia Nonspecific ST and T wave abnormality Abnormal ECG When compared with ECG of 14-Aug-2025 06:22, Nonspecific T wave abnormality now evident in Inferior leads Nonspecific T wave abnormality, worse in Lateral leads Referred By: Joselin Benjamin Electronically Signed By: YINA MERRILL MD
[2025-08-14 14:53] LABS: Troponin-I High Sensitivity 194.2 ng/L (<3.5-35.0)
--- NOTE | 2025-08-14 14:53 | PHA.MEDREC ---
Pharmacy Consult ? Medication Reconciliation Pharmacy has completed the medication reconciliation.Med rec complete, s[poke to patient an d compared with pharmacy claims history. Patient may have gone a couple days without taking his medication because he has been so sick and vomiting
--- NOTE | 2025-08-14 16:05 | PC.NURSE ---
pt continues to have n/v, had some vomitting following dilaudid administration. In patient provider came to see patient for admission. Pt appears more relaxed now, resting with eyes closed. RR even and unlabored.
--- NOTE | 2025-08-14 16:27 | PM.IMHP ---
History of Present Illness Date of Service: 08/14/25 Chief Complaint: Abd pain, nausea and vomiting This is a 64-year-old male with a past medical history of multiple prior abdominal surgeries, hypertension, diabetes mellitus, and ischemic bowels on Xarelto, who presented to the emergency department with abdominal pain and vomiting for the past three days. The pain is located in the epigastric and periumbilical area and is similar to his previous episode in June, when he was diagnosed with mesenteric ischemia and treated conservatively with bowel rest, IV fluids, antibiotics, and anticoagulation. He reports multiple episodes of vomiting, approximately 4?5 times daily, with the last bowel movement yesterday, described as normal. He denies hematemesis, melena, or hematochezia. He also denies fever or chills but notes some shortness of breath. Review of Systems Review of Systems: No fever, chills or weakness No chest pain, palpitation No shortness of breath or coughing reporting abdominal pain, nausea or vomiting No urinary symptoms No any rash or wounds [facility] Medical History (Updated 08/14/25 @ 16:40 by Diogo Mandel MD) Hypertensive urgency Abdominal pain PVD (peripheral vascular disease) Gastroparesis DKA (diabetic ketoacidosis) Obesity (BMI 30-39.9) PAD (peripheral artery disease) Afib Amputation of left great toe Lower limb amputation, great toe CAD (coronary artery disease) DMII (diabetes mellitus, type 2) Orthopedic hardware present Hyperglycemia Cellulitis Asthma Diabetes Hypertension FHx: bilateral hip replacements Family History Father Cancer of neck Mother Uterus cancer Other No family history of coronary artery disease Surgical History History of amputation of toe (07/29/22) History of amputation of great toe (01/07/22) History of back surgery History of neck surgery History of ankle surgery H/O bilateral hip replacements S/P quadruple vessel bypass Social History Household Members: Spouse Household Members Other:: 3 Housing: Apartment Are you a primary sub acute care nurse to a significant other at home: No Do you presently have visiting nurse or other home services: No Alcohol intake: never Comment: refused bed or chair alarm Patient Tobacco Use Status: Former Tobacco user Tobacco use type: Cigarette Smoked in Last 30 Days: No e-Cigarette/Vaping Use: Never Used Second Hand Smoke Exposure: No Use of substances other than those prescribed or required for medical reasons: No Substance Use Type: Marijuana Advance Directives: Yes Advance Directives on File: Yes Advance Directives Date on File: 07/20/25 service: No Current occupational status: disabled Meds Allergies Allergy/AdvReac Type Severity Reaction Status Date / Time morphine AdvReac Intermediate Hallucinati Verified 08/14/25 06:26 ons Active Medications: Current Medications Acetaminophen (Acetaminophen 325 Mg Tablet) 650 mg PO Q6H PRN PRN Reason: Pain, Mild 1-3,fever,headache Calcium Carbonate (Calcium Carbonate 750 Mg Tab.Chew) 750 mg PO Q4H PRN PRN Reason: Heartburn Enoxaparin Sodium (Enoxaparin Sodium 40 Mg/0.4 Ml Syringe) 40 mg SUBCUT Q24H WILLIAM Hydromorphone HCl (Hydromorphone Hcl 0.5 Mg/0.5 Ml Syringe) 0.5 mg IVPUSH Q4H PRN; Protocol PRN Reason: Pain, Severe (Pain Scale 7-10) Lactated Ringer's (Lr) 1,000 mls @ 100 mls/hr IVCONT .Q10H WILLIAM Sodium Chloride (Ns) 1,000 mls @ 500 mls/hr IV .Q2H WILLIAM Stop: 08/14/25 18:29 Insulin Glargine (Insulin Glargine,Hum.Rec.Anlog 100 Unit/Ml 10 Ml Vial) 10 unit SUBCUT BEDTIME WILLIAM Insulin Human Lispro (Insulin Lispro 100 Unit/Ml 3 Ml Vial) 0 unit SUBCUT QIDACHS [facility]; Protocol Magnesium Hydroxide (Milk Of Magnesia 30 Ml Oral.Susp) 30 ml PO DAILY PRN PRN Reason: Constipation Melatonin (Melatonin 3 Mg Tablet) 6 mg PO BEDTIME PRN PRN Reason: Insomnia Ondansetron HCl (Ondansetron Hcl 4 Mg/2 Ml Vial) 4 mg IVPUSH Q8H PRN PRN Reason: Nausea and Vomiting Sodium Chloride (0.9 % Sodium Chloride Flush 3 Ml Syringe) 3 ml IVFLUSH QSHIFT WILLIAM Home Medications ?Medication ?Instructions ?Recorded ?Confirmed ?Last Taken ?Type ezetimibe 10 mg tablet 10 mg PO BEDTIME 01/03/22 08/14/25 07/17/25 History gabapentin 300 mg capsule 300 mg PO TID 01/03/22 08/14/25 07/17/25 History insulin glargine 100 unit/mL 10 unit subcut BEDTIME 01/03/22 08/14/25 07/17/25 History subcutaneous solution (Lantus U-100 Insulin) isosorbide mononitrate 30 mg 30 mg PO DAILY 01/03/22 08/14/25 07/17/25 History tablet,extended release 24 hr loratadine 10 mg tablet 10 mg PO DAILY 01/03/22 08/14/25 07/17/25 History losartan 25 mg tablet 25 mg PO DAILY 01/03/22 08/14/25 07/17/25 History meclizine 25 mg tablet 25 mg PO TID PRN Dizziness Or 01/03/22 08/14/25 05/23/25 History Vertigo rosuvastatin 40 mg tablet 40 mg PO BEDTIME 01/03/22 08/14/25 07/17/25 History aspirin 81 mg tablet,delayed 81 mg PO DAILY 08/04/22 08/14/25 07/17/25 History release furosemide 20 mg tablet 20 mg PO DAILY 11/13/22 08/14/25 07/17/25 History metoprolol succinate 25 mg 25 mg PO DAILY 10/14/24 08/14/25 07/17/25 History tablet,extended release 24 hr insulin lispro 100 unit/mL See Protocol subcut QIDACHS 12/16/24 08/14/25 07/17/25 History subcutaneous solution rivaroxaban 20 mg tablet (Xarelto) 20 mg PO DAILY@1700 12/16/24 08/14/25 07/17/25 History insulin glargine 100 unit/mL 8 unit subcut DAILY 03/23/25 08/14/25 07/17/25 History subcutaneous solution (Lantus U-100 Insulin) glucagon 1 mg/0.2 mL subcutaneous 1 mg subcut ONCE PRN Hypoglycemia 05/26/25 08/14/25 Unknown History auto-injector (Gvoke HypoPen 2-Pack) pantoprazole 40 mg tablet,delayed 40 mg PO BID@0630,1630 05/26/25 08/14/25 07/17/25 History release ondansetron 4 mg disintegrating 4 mg PO Q8H PRN Nausea And Vomiting 07/19/25 08/14/25 Unknown History tablet venlafaxine 100 mg tablet 100 mg PO BID 08/14/25 08/14/25 Unknown History Physical Exam Vital Signs and Narrative: Vital Signs: Last Vital Signs Temp 98 F 08/14/25 09:01 Pulse 113 H 08/14/25 15:24 Resp 17 08/14/25 15:24 BP 202/115 H 08/14/25 15:33 Pulse Ox 97 08/14/25 15:24 O2 Del Method Room Air 08/14/25 15:24 BMI result Body Mass Index 38.0 Const: Other: Constitutional : Awake, interactive, in pain and distress Neck : Normal inspection, Supple Cardiovascular : RRR, no JVP, no lower extremity edema Respiratory : fair bilateral air entry, no crackles, wheezes or rhonchi Gastrointestinal: soft, lax, decreased bowel sounds, epigastric and LUQ tenderness Skin : Warm, Dry Neurological : Alert & oriented x3, No focal deficit Results Labs 08/14/25 06:32 08/14/25 07:29 Labs: Laboratory Results - last 24 hr 08/14/25 08/14/25 08/14/25 06:32 07:29 08:44 MCV 84.7 MCH 29.4 MCHC 34.8 RDW 13.4 Plt Count 279 D MPV 10.6 Immature Gran % (Auto) 0.4 Neut % (Auto) 79.5 H Lymph % (Auto) 14.8 L [place] % (Auto) 4.6 Eos % (Auto) 0.3 Baso % (Auto) 0.4 Lymph # (Auto) 2.1 Isabel[place] # (Auto) 0.7 Eos # (Auto) 0.0 Baso # (Auto) 0.1 Abs Immat Gran (auto) 0.06 H Absolute Neuts (auto) 11.5 H Absolute Nucleated RBC 0.000 Nucleated RBC % (auto) 0.0 Smear Tech's Comments VERIFIED ESR 20 H Hold Purple Top SEE NOTE VBG pH VBG pCO2 VBG pO2 VBG HCO3 VBG O2 Saturation VBG Base Excess Anion Gap 20 Estim Creat Clear Calc 130.2 Estimated GFR > 60 POC Glucose Random Glucose 416 H* Lactic Acid 3.3 H* Lactic Acid F/U @ 2Hr Lactic Acid F/U @ 4Hr Calcium 9.5 D Magnesium 2.0 Total Bilirubin 0.9 AST 17 ALT < 6 Alkaline Phosphatase 76 Total Creatine Kinase 39 Troponin I High Sens 5.1 C-Reactive Protein 0.23 Total Protein 6.9 Albumin 4.3 Lipase < 4 L Beta-Hydroxybutyrate 2.61 H Urine Color Urine Appearance Urine pH Ur Specific Winters Urine Protein Urine Glucose (UA) Urine Ketones Urine Blood Urine Nitrite Ur Leukocyte Esterase Urine RBC Urine WBC Ur Squamous Epith Cells Urine Bacteria Hyaline Casts Urine Opiates Screen Ur Buprenorphine Scrn Ur Oxycodone Screen Urine Methadone Screen Urine Fentanyl Screen Ur Barbiturates Screen Ur Phencyclidine Scrn Ur Amphetamines Screen U Benzodiazepines Scrn Urine Cocaine Screen U Marijuana (THC) Screen Ethyl Alcohol < 10 08/14/25 08/14/25 08/14/25 08:50 10:01 10:07 MCV MCH MCHC RDW Plt Count MPV Immature Gran % (Auto) Neut % (Auto) Lymph % (Auto) Isabela % (Auto) Eos % (Auto) Baso % (Auto) Lymph # (Auto) Isabel[place] # (Auto) Eos # (Auto) Baso # (Auto) Abs Immat Gran (auto) Absolute Neuts (auto) Absolute Nucleated RBC Nucleated RBC % (auto) Smear Tech's Comments ESR Hold Purple Top VBG pH 7.43 VBG pCO2 19 VBG pO2 110 VBG HCO3 13 L VBG O2 Saturation 100.0 VBG Base Excess -8.1 Anion Gap Estim Creat Clear Calc Estimated GFR POC Glucose 322 H Random Glucose Lactic Acid Lactic Acid F/U @ 2Hr Lactic Acid F/U @ 4Hr Calcium Magnesium Total Bilirubin AST ALT Alkaline Phosphatase Total Creatine Kinase Troponin I High Sens 14.1 D C-Reactive Protein Total Protein Albumin Lipase Beta-Hydroxybutyrate Urine Color Urine Appearance Urine pH Ur Specific Winters Urine Protein Urine Glucose (UA) Urine Ketones Urine Blood Urine Nitrite Ur Leukocyte Esterase Urine RBC Urine WBC Ur Squamous Epith Cells Urine Bacteria Hyaline Casts Urine Opiates Screen Ur Buprenorphine Scrn Ur Oxycodone Screen Urine Methadone Screen Urine Fentanyl Screen Ur Barbiturates Screen Ur Phencyclidine Scrn Ur Amphetamines Screen U Benzodiazepines Scrn Urine Cocaine Screen U Marijuana (THC) Screen Ethyl Alcohol 08/14/25 08/14/25 08/14/25 11:06 11:39 12:59 MCV MCH MCHC RDW Plt Count MPV Immature Gran % (Auto) Neut % (Auto) Lymph % (Auto) Isabela % (Auto) Eos % (Auto) Baso % (Auto) Lymph # (Auto) Isabela # (Auto) Eos # (Auto) Baso # (Auto) Abs Immat Gran (auto) Absolute Neuts (auto) Absolute Nucleated RBC Nucleated RBC % (auto) Smear Tech's Comments ESR Hold Purple Top VBG pH VBG pCO2 VBG pO2 VBG HCO3 VBG O2 Saturation VBG Base Excess Anion Gap Estim Creat Clear Calc Estimated GFR POC Glucose 324 H Random Glucose Lactic Acid Lactic Acid F/U @ 2Hr 2.4 H* Lactic Acid F/U @ 4Hr Calcium Magnesium Total Bilirubin AST ALT Alkaline Phosphatase Total Creatine Kinase Troponin I High Sens C-Reactive Protein Total Protein Albumin Lipase Beta-Hydroxybutyrate Urine Color Yellow Urine Appearance Clear Urine pH 6.0 Ur Specific Winters >= 1.030 H Urine Protein 30 (1+) H Urine Glucose (UA) >=1000 H Urine Ketones 40 Urine Blood Negative Urine Nitrite Negative Ur Leukocyte Esterase Negative Urine RBC 0-2 Urine WBC 0-5 Ur Squamous Epith Cells 0-2 Urine Bacteria None Seen Hyaline Casts 0-2 Urine Opiates Screen Not Detected Ur Buprenorphine Scrn Not Detected Ur Oxycodone Screen Positive H Urine Methadone Screen Not Detected Urine Fentanyl Screen Not Detected Ur Barbiturates Screen Not Detected Ur Phencyclidine Scrn Not Detected Ur Amphetamines Screen Not Detected U Benzodiazepines Scrn Not Detected Urine Cocaine Screen Not Detected U Marijuana (THC) Screen POSITIVE H Ethyl Alcohol 08/14/25 08/14/25 13:58 14:07 MCV MCH MCHC RDW Plt Count MPV Immature Gran % (Auto) Neut % (Auto) Lymph % (Auto) Isabela % (Auto) Eos % (Auto) Baso % (Auto) Lymph # (Auto) Isabela # (Auto) Eos # (Auto) Baso # (Auto) Abs Immat Gran (auto) Absolute Neuts (auto) Absolute Nucleated RBC Nucleated RBC % (auto) Smear Tech's Comments ESR Hold Purple Top VBG pH VBG pCO2 VBG pO2 VBG HCO3 VBG O2 Saturation VBG Base Excess Anion Gap Estim Creat Clear Calc Estimated GFR POC Glucose Random Glucose Lactic Acid Lactic Acid F/U @ 2Hr Lactic Acid F/U @ 4Hr 2.4 H* Calcium Magnesium Total Bilirubin AST ALT Alkaline Phosphatase Total Creatine Kinase Troponin I High Sens 194.2 H* D C-Reactive Protein Total Protein Albumin Lipase Beta-Hydroxybutyrate Urine Color Urine Appearance Urine pH Ur Specific Winters Urine Protein Urine Glucose (UA) Urine Ketones Urine Blood Urine Nitrite Ur Leukocyte Esterase Urine RBC Urine WBC Ur Squamous Epith Cells Urine Bacteria Hyaline Casts Urine Opiates Screen Ur Buprenorphine Scrn Ur Oxycodone Screen Urine Methadone Screen Urine Fentanyl Screen Ur Barbiturates Screen Ur Phencyclidine Scrn Ur Amphetamines Screen U Benzodiazepines Scrn Urine Cocaine Screen U Marijuana (THC) Screen Ethyl Alcohol Assessment and Plan (1) Ischemic bowel disease: Status: Acute (2) Acute lactic acidosis: Status: Resolved (3) Hyperglycemia due to diabetes mellitus: Status: Resolved Plan a 64-year-old male with a past medical history of multiple prior abdominal surgeries, hypertension, diabetes mellitus, and ischemic bowels on Xarelto, who presented to the emergency department with abdominal pain and vomiting for the past three days. Ischemic colitis CT scan showing Equivocal hypoperfusion of the right and middle distal colonic branches of the SMA. Can not exclude mild colitis. among other findings get general surgery consult Likely conservative measures with IVF, pain control and bowel rest NPO prophylactic antibiotics: Ceftriaxone and Flagyl Switch to Lovenox 40 mg SC for now; consider restarting Xarelto if no plans for surgical intervention Lactic acidosis, acute secondary to ischemia give another bolus and follow LA, overall trending down Monitor LA Uncontrolled HTN with hypertensive urgency continue metoprolol and Imdur Hold Losartan for now might need a higher BP readings to support perfusion through SMA avoid hypotension Elevated Troponin Likely Type 2 from overall ischemia and HTN urgency No EKG changes to suggest ACS Keep on Tele Follow Trop I Cardiology consult if Trop continues to increase fully anticoagulated on Lovenox meanwhile Insulin-dependent diabetes with hyperglycemia currently NPO sliding scale insulin per standard protocol Lantus 10 units bedtime CAD Continue MEtoprolol , aspirin, Imdur, Hold ezetimibe Paroxysmal AFib metoprolol hold Xarelto, switch to Lovenox full dose Diabetic neuropathy gabapentin Class 3 obesity weight loss encouraged Full code Quality Stroke Does the patient have a stroke diagnosis?: No VTE Prior VTE?: No VTE Risk Level:: Medical - moderate - high VTE Device Contraindication: Treatment Not Indicated VTE Drug Contraindication: N/A - Med Ordered
[2025-08-14] MEDS: Lactated Ringers 1,000 ML 100 ML IVCONT (16:41)
[2025-08-14] MEDS: metroNIDAZOLE/NS 500 MG/100 ML PIGGYBACK 100 MG IV (17:20)
--- NOTE | 2025-08-14 19:34 | PC.NURSE ---
lovenox requested from pharmacy via [facility]
[2025-08-14] MEDS: Insulin Glargine,Hum.rec.anlog 100 UNIT/ML 10 ML VIAL 10 UNIT SUBCUT ×2 (20:17→20:18)
[2025-08-14 20:23] LABS: Glucose, Whole Blood 268 mg/dL (60-115)
--- NOTE | 2025-08-14 21:53 | PC.NURSE ---
Pt is requesting pain and nausea medication. Recently medication and is not yet due. [place] text sent to hospitalist. No new orders at this time.
--- NOTE | 2025-08-14 22:29 | PC.NURSE ---
spoke with pt - updated on plan of care, all questions answered
[2025-08-15] VITALS (8 sets, daily range): BP systolic 145–183; BP diastolic 83–105; PULSE 73–99; RESP 13–22; TEMP 36.4–37.4; O2SAT 93–99; BMI 34.9
[2025-08-15] MEDS: Lactated Ringers 1,000 ML 100 ML IVCONT ×2 (01:46→14:42)
[2025-08-15 04:23] LABS: MANUAL DIFF FLAG NO
[2025-08-15 04:24] LABS: Hematocrit 34.1 % (42.0-52.0); Hemoglobin 11.5 g/dl (14.0-18.0); Imm Gran Abs Auto 0.03 X10*3/uL (0.00-0.03); Imm Gran Pct Auto 0.3 % (0.0-0.4); Lymphocytes Absolute Auto 2.7 X10*3/uL (1.2-4.9); Mean Corpuscular HGB Conc 33.7 g/dl (31.0-36.0); Mean Corpuscular Hemoglobin 29.2 pg (27.0-33.0); Mean Corpuscular Volume 86.5 fL (80.0-98.0); NRBC Abs Auto 0.000 X10*3/uL (0.0-0.012); NRBC Pct Auto 0.0 /100WBC (0.0-0.2); Platelet Count 238 X10*3/uL (160-400); Red Blood Count 3.94 X10*6/uL (4.60-5.80); White Blood Count 11.6 X10*3/uL (4.8-10.8)
[2025-08-15 04:45] LABS: Alanine Aminotransferase < 6 U/L (0-40); Albumin Level 3.5 g/dL (3.5-5.0); Alkaline Phosphatase 57 U/L (39-117); Anion Gap 14 (12-20); Aspartate Amino Transferase 24 U/L (5-37); Blood Urea Nitrogen 8 mg/dL (9-16); Calcium 8.5 mg/dL (8.4-10.2); Carbon Dioxide 17 mmol/L (22-29); Chloride 114 mmol/L (96-108); Creatinine Clr Calc Pharmacy 151.9; Estimated Glomerular Filt Rate > 60; Potassium 3.7 mmol/L (3.3-5.1); Sodium 141 mmol/L (135-145); Total Protein 5.8 g/dL (6.5-8.0)
[2025-08-15] MEDS: metroNIDAZOLE/NS 500 MG/100 ML PIGGYBACK 100 MG IV ×2 (05:32→17:20)
[2025-08-15 07:17] LABS: Glucose, Whole Blood 233 mg/dL (60-115)
[2025-08-15] MEDS: 0.9 % Sodium Chloride Flush 3 ML SYRINGE IVFLUSH (07:55)
[2025-08-15] MEDS: Metoprolol Succinate ER 25 MG TAB.ER.24H PO (09:02)
[2025-08-15] MEDS: Aspirin Enteric Coated 81 MG TABLET.DR PO (09:03)
[2025-08-15 12:38] LABS: Glucose, Whole Blood 212 mg/dL (60-115)
--- NOTE | 2025-08-15 12:42 | MHC.CM.PN ---
Pt. lives with his , he does not use home health services. For DME, he has a cane and a walker. PCP confirmed: Prabhjot Roach. HCP is on file and confirmed: Holli. Pt. is able to arrange a ride home at [place]. DCP: home, self care, CM to follow for DC needs.
--- NOTE | 2025-08-15 13:10 | PM.CNGS ---
History of Present Illness Consult details Consult date: 08/15/25 <Clive Seo PA-C - Last Filed: 08/15/25 15:39> Reason for consult: abdominal pain <Clive Seo PA-C - Last Filed: 08/15/25 15:39> Narrative: 64-year-old male with a history of hypertension, gastroparesis, class 1 obesity, CAD, paroxysmal AFib, insulin-dependent diabetes and diabetic neuropathy, who was recently admitted for ischemic colitis treated conservatively with bowel rest, anticoagulation, returning to the ED with a 2 day history of epigastric abdominal pain with associated nausea and vomiting. He states this feels very similar to the last time. He denies sick contacts. Denies hematemesis, melena. He is passing gas, pass a bowel movement yesterday. He denies fevers or chills. Workup in the ED showing mild leukocytosis 11.6, CTA abdomen showing stable atherosclerotic disease of the mesenteric arteries, possible mild colitis. <Clive Seo PA-C - Last Filed: 08/15/25 15:39> Review of Systems Review of Systems: Yes all other systems are reviewed and are negative <Clive Seo PA-C - Last Filed: 08/15/25 15:39> [facility] Past Medical History Medical History: Medical History (Updated 08/15/25 @ 15:38 by Clive Seo PA-C) Hypertensive urgency Abdominal pain PVD (peripheral vascular disease) Gastroparesis DKA (diabetic ketoacidosis) Obesity (BMI 30-39.9) PAD (peripheral artery disease) Afib Amputation of left great toe Lower limb amputation, great toe CAD (coronary artery disease) DMII (diabetes mellitus, type 2) Orthopedic hardware present Hyperglycemia Cellulitis Asthma Diabetes Hypertension FHx: bilateral hip replacements <Clive Seo PA-C - Last Filed: 08/15/25 15:39> Family History Family History: Family History Father Cancer of neck Mother Uterus cancer Other No family history of coronary artery disease <Clive Seo PA-C - Last Filed: 08/15/25 15:39> Surgical History Surgical History: Surgical History History of amputation of toe (07/29/22) History of amputation of great toe (01/07/22) History of back surgery History of neck surgery History of ankle surgery H/O bilateral hip replacements S/P quadruple vessel bypass <Clive Soe PA-C - Last Filed: 08/15/25 15:39> Social History Social History: Social History Household Members: Spouse Household Members Other:: 3 Housing: Apartment Are you a primary behavioral health care coordinator to a significant other at home: No Do you presently have visiting nurse or other home services: No Alcohol intake: never Comment: refused bed or chair alarm Patient Tobacco Use Status: Former Tobacco user Tobacco use type: Cigarette Smoked in Last 30 Days: No e-Cigarette/Vaping Use: Never Used Second Hand Smoke Exposure: No Use of substances other than those prescribed or required for medical reasons: No Substance Use Type: Marijuana Advance Directives: Yes Advance Directives on File: Yes Advance Directives Date on File: 07/20/25 Nutrition Risks: No Nutritional Risk service: No Current occupational status: disabled <Clive Seo PA-C - Last Filed: 08/15/25 15:39> Meds Allergies/Adverse reactions: Allergies Allergy/AdvReac Type Severity Reaction Status Date / Time morphine AdvReac Intermediate Hallucinati Verified 08/14/25 06:26 ons <Clive Seo PA-C - Last Filed: 08/15/25 15:39> Active Medications: Current Medications Acetaminophen (Acetaminophen 325 Mg Tablet) 650 mg PO Q6H PRN PRN Reason: Pain, Mild 1-3,fever,headache Aspirin (Aspirin Enteric Coated 81 Mg Tablet.Dr) 81 mg PO DAILY [facility] Last Admin: 08/15/25 09:03 Dose: 81 mg Calcium Carbonate (Calcium Carbonate 750 Mg Tab.Chew) 750 mg PO Q4H PRN PRN Reason: Heartburn Ceftriaxone Sodium (Ceftriaxone Sodium 1 Gm Vial) 1 gm IVPUSH Q24H [facility] Last Admin: 08/15/25 09:01 Dose: 1 gm Enoxaparin Sodium (Enoxaparin Sodium 120 Mg/0.8 Ml Syringe) 110 mg SUBCUT Q12H [facility] Last Admin: 08/15/25 09:01 Dose: 110 mg Gabapentin (Gabapentin 300 Mg Capsule) 300 mg PO TID [facility] Last Admin: 08/15/25 09:02 Dose: 300 mg Hydromorphone HCl (Hydromorphone Hcl 0.5 Mg/0.5 Ml Syringe) 0.5 mg IVPUSH Q4H PRN; Protocol PRN Reason: Pain, Severe (Pain Scale 7-10) Last Admin: 08/15/25 13:00 Dose: 0.5 mg Lactated Ringer's (Lr) 1,000 mls @ 100 mls/hr IVCONT .Q10H [facility] Last Admin: 08/15/25 01:46 Dose: 100 mls/hr Metronidazole (Flagyl) 500 mg in 100 mls @ 100 mls/hr IV Q12H [facility] Last Infusion: 08/15/25 06:39 Dose: Infused Insulin Glargine (Insulin Glargine,Hum.Rec.Anlog 100 Unit/Ml 10 Ml Vial) 10 unit SUBCUT BEDTIME [facility] Last Admin: 08/14/25 20:18 Dose: 10 unit Insulin Human Lispro (Insulin Lispro 100 Unit/Ml 3 Ml Vial) 0 unit SUBCUT QIDACHS [facility]; Protocol Last Admin: 08/15/25 12:56 Dose: 4 unit Isosorbide Mononitrate (Isosorbide Mononitrate 30 Mg Tab.Er.24h) 30 mg PO DAILY [facility]; Protocol Last Admin: 08/15/25 09:02 Dose: 30 mg Magnesium Hydroxide (Milk Of Magnesia 30 Ml Oral.Susp) 30 ml PO DAILY PRN PRN Reason: Constipation Melatonin (Melatonin 3 Mg Tablet) 6 mg PO BEDTIME PRN PRN Reason: Insomnia Metoprolol Succinate (Metoprolol Succinate Er 25 Mg Tab.Er.24h) 25 mg PO DAILY [facility]; Protocol Last Admin: 08/15/25 09:02 Dose: 25 mg Ondansetron HCl (Ondansetron Hcl 4 Mg/2 Ml Vial) 4 mg IVPUSH Q8H PRN PRN Reason: Nausea and Vomiting Last Admin: 08/15/25 10:59 Dose: 4 mg Pantoprazole Sodium (Pantoprazole Sodium 40 Mg/10 Ml Vial) 40 mg IVPUSH BID@0630,1630 [facility] Last Admin: 08/15/25 05:39 Dose: 40 mg Sodium Chloride (0.9 % Sodium Chloride Flush 3 Ml Syringe) 3 ml IVFLUSH QSHIFT [facility] Last Admin: 08/15/25 07:55 Dose: 3 ml <Clive Seo PA-C - Last Filed: 08/15/25 15:39> Home medications: Home Medications ?Medication ?Instructions ?Recorded ?Confirmed ?Last Taken ?Type ezetimibe 10 mg tablet 10 mg PO BEDTIME 01/03/22 08/14/25 07/17/25 History gabapentin 300 mg capsule 300 mg PO TID 01/03/22 08/14/25 07/17/25 History insulin glargine 100 unit/mL 10 unit subcut BEDTIME 01/03/22 08/14/25 07/17/25 History subcutaneous solution (Lantus U-100 Insulin) isosorbide mononitrate 30 mg 30 mg PO DAILY 01/03/22 08/14/25 07/17/25 History tablet,extended release 24 hr loratadine 10 mg tablet 10 mg PO DAILY 01/03/22 08/14/25 07/17/25 History losartan 25 mg tablet 25 mg PO DAILY 01/03/22 08/14/25 07/17/25 History meclizine 25 mg tablet 25 mg PO TID PRN Dizziness Or 01/03/22 08/14/25 05/23/25 History Vertigo rosuvastatin 40 mg tablet 40 mg PO BEDTIME 01/03/22 08/14/25 07/17/25 History aspirin 81 mg tablet,delayed 81 mg PO DAILY 08/04/22 08/14/25 07/17/25 History release furosemide 20 mg tablet 20 mg PO DAILY 11/13/22 08/14/25 07/17/25 History metoprolol succinate 25 mg 25 mg PO DAILY 10/14/24 08/14/25 07/17/25 History tablet,extended release 24 hr insulin lispro 100 unit/mL See Protocol subcut QIDACHS 12/16/24 08/14/25 07/17/25 History subcutaneous solution rivaroxaban 20 mg tablet (Xarelto) 20 mg PO DAILY@1700 12/16/24 08/14/25 07/17/25 History insulin glargine 100 unit/mL 8 unit subcut DAILY 03/23/25 08/14/25 07/17/25 History subcutaneous solution (Lantus U-100 Insulin) glucagon 1 mg/0.2 mL subcutaneous 1 mg subcut ONCE PRN Hypoglycemia 05/26/25 08/14/25 Unknown History auto-injector (Gvoke HypoPen 2-Pack) pantoprazole 40 mg tablet,delayed 40 mg PO BID@0630,1630 05/26/25 08/14/25 07/17/25 History release ondansetron 4 mg disintegrating 4 mg PO Q8H PRN Nausea And Vomiting 07/19/25 08/14/25 Unknown History tablet venlafaxine 100 mg tablet 100 mg PO BID 08/14/25 08/14/25 Unknown History <Clive Seo PA-C - Last Filed: 08/15/25 15:39> Physical Exam Vital Signs: Vital Signs: Last Vital Signs Temp 99.1 F 08/15/25 07:59 Pulse 99 08/15/25 09:02 Resp 22 H 08/15/25 07:59 BP 183/90 H 08/15/25 09:02 Pulse Ox 97 08/15/25 07:59 O2 Del Method Room Air 08/15/25 07:59 BMI result Body Mass Index 38.0 <FELICIA Blackman Last Filed: 08/15/25 15:39> Const: General: comfortable and no acute distress <FELICIA Blackman Last Filed: 08/15/25 15:39> Orientation/consciousness: patient oriented x3 <FELICIA Blackman Last Filed: 08/15/25 15:39> Resp: Effort & Inspection: normal respiratory effort and able to speak in complete sentences <FELICIA Blackman Last Filed: 08/15/25 15:39> GI: Inspection: No distended <FELICIA Blackman Last Filed: 08/15/25 15:39> Palpation (GI): Soft to palpation and Tenderness to palpation present (GI) in the epigastrum <FELICIA Blackman Last Filed: 08/15/25 15:39> Percussion: Yes normal to percussion <FELICIA Blackman Last Filed: 08/15/25 15:39> Auscultation: normal bowel sounds <FELICIA Blackman Last Filed: 08/15/25 15:39> Neuro: General: patient oriented x3 <Clive Seo PA-C - Last Filed: 08/15/25 15:39> Results Labs Result diagrams: 08/15/25 03:44 08/15/25 03:44 <Clive Seo PA-C - Last Filed: 08/15/25 15:39> Labs: Abnormal lab results 08/14/25 08/14/25 08/14/25 Range/Units 13:58 14:07 20:16 WBC (4.8-10.8) X10*3/uL RBC (4.60-5.80) X10*6/uL Hgb (14.0-18.0) g/dl Hct (42.0-52.0) % Chloride (96-108) mmol/L Carbon Dioxide (22-29) mmol/L BUN (9-16) mg/dL POC Glucose 268 H (60-115) mg/dL Random Glucose (60-115) mg/dL Lactic Acid F/U @ 4Hr 2.4 H* (0.5-2.0) mmol/L Troponin I High Sens 194.2 H* D (<3.5-35.0) ng/L Total Protein (6.5-8.0) g/dL 08/15/25 08/15/25 08/15/25 Range/Units 03:44 07:14 12:35 WBC 11.6 H (4.8-10.8) X10*3/uL RBC 3.94 L D (4.60-5.80) X10*6/uL Hgb 11.5 L D (14.0-18.0) g/dl Hct 34.1 L (42.0-52.0) % Chloride 114 H (96-108) mmol/L Carbon Dioxide 17 L (22-29) mmol/L BUN 8 L (9-16) mg/dL POC Glucose 233 H 212 H (60-115) mg/dL Random Glucose 236 H (60-115) mg/dL Lactic Acid F/U @ 4Hr (0.5-2.0) mmol/L Troponin I High Sens (<3.5-35.0) ng/L Total Protein 5.8 L (6.5-8.0) g/dL Short CBC 08/15/25 Range/Units 03:44 WBC 11.6 H (4.8-10.8) X10*3/uL Hgb 11.5 L D (14.0-18.0) g/dl Hct 34.1 L (42.0-52.0) % Plt Count 238 (160-400) X10*3/uL BMP 08/15/25 03:44 Sodium 141 Potassium 3.7 Chloride 114 H Carbon Dioxide 17 L BUN 8 L Creatinine 0.60 Calcium 8.5 D Liver Function 08/15/25 Range/Units 03:44 Total Bilirubin 0.6 (0.0-1.0) mg/dL AST 24 (5-37) U/L ALT < 6 (0-40) U/L Alkaline Phosphatase 57 (39-117) U/L Albumin 3.5 (3.5-5.0) g/dL Urine 08/14/25 Range/Units 11:06 Urine Color Yellow Urine Appearance Clear Urine pH 6.0 (5.0-9.0) Ur Specific [place] >= 1.030 H (1.005-1.025) Urine Protein 30 (1+) H (Neg-Trace) mg/dL Urine Glucose (UA) >=1000 H (Negative) mg/dL All other labs normal. <Clive Seo PA-C - Last Filed: 08/15/25 15:39> Assessment and Plan (1) Abdominal pain: Qualifiers: Abdominal location: epigastric Qualified Code(s): R10.13 - Epigastric pain <Clive Seo PA-C - Last Filed: 08/15/25 15:39> Status: Acute <Clive Seo PA-C - Last Filed: 08/15/25 15:39> He is known to the service from a recent admission He was readmitted for abdominal pain I have reviewed his CAT scan - there were no changes compared to his previous CAT scan; stable atherosclerotic disease of the mesenteric vessels which otherwise appear patent Abdomen is soft and benign He describes more of umbilical pain Stable vital signs Uncertain as to the etiology of his abdominal pain Troponin levels are markedly elevated We will follow along closely I have seen and examined him independently <Derrick Perkins MD - Last Filed: 08/15/25 19:36> 64-year-old male with a history of hypertension, gastroparesis, class 1 obesity, CAD, paroxysmal AFib, insulin-dependent diabetes and diabetic neuropathy, who was recently admitted for ischemic colitis treated conservatively with bowel rest, anticoagulation, returning to the ED with a 2 day history of epigastric abdominal pain with associated nausea and vomiting. Pain is similar to last episode. No sick contacts He reports passing gas, passing bowel movement yesterday, denies melena or bright red blood per rectum. Denies hematemesis. He had a very mild leukocytosis on labs in ED, CTA showing stable atheroscleotic disease of the mesentaric arteries, possible mild colitis. Clinically he is unobstructed, passing gas and stool. abdomen is soft, tender in the epigastric area. active bowel sounds in all 4 quadrants, abdomen is nondistended. Does not need NG currently. No surgical intervention planned at this time. would recommend bowel rest, IVF, serial abdominal exams. Will continue to follow while admitted. IVF bowel rest serial abd exams <Clive Seo PA-C - Last Filed: 08/15/25 15:39> Procedures Date of Service Date of Service: 08/15/25 <Clive Seo PA-C - Last Filed: 08/15/25 15:39> 08/15/25 <Derrick Perkins MD - Last Filed: 08/15/25 19:36>
--- NOTE | 2025-08-15 16:48 | HO.PM.IMPN ---
Subjective Subjective Date of Service: 08/16/25 Review of Systems Follow up abd pain, colitis still with some discomfort no nausea or vomiting Physical Exam Exam: Exam: Appearing in no acute distress lung sounds are clear to auscultation heart regular rate rhythm, clear S1, S2 positive bowel sounds, abdomen is soft, diffuse tenderness neuro patient is alert x3, no focal deficits Vital Signs: Vital Signs: Last Vital Signs Temp 98.5 F 08/15/25 13:00 Pulse 94 08/15/25 13:00 Resp 16 08/15/25 13:00 BP 183/105 H 08/15/25 13:00 Pulse Ox 96 08/15/25 13:00 O2 Del Method Room Air 08/15/25 13:00 BMI result Body Mass Index 38.0 Objective Data Active Medications Acetaminophen (Acetaminophen 325 Mg Tablet) 650 mg PO Q6H PRN PRN Reason: Pain, Mild 1-3,fever,headache Aspirin (Aspirin Enteric Coated 81 Mg Tablet.) 81 mg PO DAILY [facility] Last Admin: 08/15/25 09:03 Dose: 81 mg Documented By: MAURA Calcium Carbonate (Calcium Carbonate 750 Mg Tab.Chew) 750 mg PO Q4H PRN PRN Reason: Heartburn Ceftriaxone Sodium (Ceftriaxone Sodium 1 Gm Vial) 1 gm IVPUSH Q24H [facility] Last Admin: 08/15/25 09:01 Dose: 1 gm Documented By: MAURA Enoxaparin Sodium (Enoxaparin Sodium 120 Mg/0.8 Ml Syringe) 110 mg SUBCUT Q12H [facility] Last Admin: 08/15/25 09:01 Dose: 110 mg Documented By: MAURA Gabapentin (Gabapentin 300 Mg Capsule) 300 mg PO TID [facility] Last Admin: 08/15/25 15:42 Dose: 300 mg Documented By: JAKE Hydromorphone HCl (Hydromorphone Hcl 0.5 Mg/0.5 Ml Syringe) 0.5 mg IVPUSH Q4H PRN; Protocol PRN Reason: Pain, Severe (Pain Scale 7-10) Last Admin: 08/15/25 13:00 Dose: 0.5 mg Documented By: YUE-JIMBO Lactated Ringer's (Lr) 1,000 mls @ 100 mls/hr IVCONT .Q10H [facility] Last Admin: 08/15/25 14:42 Dose: 100 mls/hr Documented By: JAKE Metronidazole (Flagyl) 500 mg in 100 mls @ 100 mls/hr IV Q12H [facility] Last Infusion: 08/15/25 06:39 Dose: Infused Documented By: POLINA Insulin Glargine (Insulin Glargine,Hum.Rec.Anlog 100 Unit/Ml 10 Ml Vial) 10 unit SUBCUT BEDTIME [facility] Last Admin: 08/14/25 20:18 Dose: 10 unit Documented By: JAKE Insulin Human Lispro (Insulin Lispro 100 Unit/Ml 3 Ml Vial) 0 unit SUBCUT QIDACHS [facility]; Protocol Last Admin: 08/15/25 12:56 Dose: 4 unit Documented By: YUE-JIMBO Isosorbide Mononitrate (Isosorbide Mononitrate 30 Mg Tab.Er.24h) 30 mg PO DAILY [facility]; Protocol Last Admin: 08/15/25 09:02 Dose: 30 mg Documented By: MAURA Magnesium Hydroxide (Milk Of Magnesia 30 Ml Oral.Susp) 30 ml PO DAILY PRN PRN Reason: Constipation Melatonin (Melatonin 3 Mg Tablet) 6 mg PO BEDTIME PRN PRN Reason: Insomnia Metoprolol Succinate (Metoprolol Succinate Er 25 Mg Tab.Er.24h) 25 mg PO DAILY [facility]; Protocol Last Admin: 08/15/25 09:02 Dose: 25 mg Documented By: MAURA Ondansetron HCl (Ondansetron Hcl 4 Mg/2 Ml Vial) 4 mg IVPUSH Q8H PRN PRN Reason: Nausea and Vomiting Last Admin: 08/15/25 10:59 Dose: 4 mg Documented By: MAURA Pantoprazole Sodium (Pantoprazole Sodium 40 Mg/10 Ml Vial) 40 mg IVPUSH BID@0630,1630 [facility] Last Admin: 08/15/25 05:39 Dose: 40 mg Documented By: POLINA Sodium Chloride (0.9 % Sodium Chloride Flush 3 Ml Syringe) 3 ml IVFLUSH QSHIFT [facility] Last Admin: 08/15/25 16:00 Dose: Not Given Documented By: JAKE Non-Admin Reason: IV Running Labs 08/15/25 03:44 08/15/25 03:44 Labs: Laboratory Results - last 24 hr 08/14/25 08/15/25 08/15/25 20:16 03:44 07:14 MCV 86.5 MCH 29.2 MCHC 33.7 RDW 14.1 Plt Count 238 MPV 10.7 Immature Gran % (Auto) 0.3 Neut % (Auto) 66.2 Lymph % (Auto) 23.3 [place] % (Auto) 9.8 Eos % (Auto) 0.1 Baso % (Auto) 0.3 Lymph # (Auto) 2.7 [place] # (Auto) 1.1 Eos # (Auto) 0.0 Baso # (Auto) 0.0 Abs Immat Gran (auto) 0.03 Absolute Neuts (auto) 7.7 Absolute Nucleated RBC 0.000 Nucleated RBC % (auto) 0.0 Anion Gap 14 Estim Creat Clear Calc 151.9 Estimated GFR > 60 POC Glucose 268 H 233 H Random Glucose 236 H Calcium 8.5 D Total Bilirubin 0.6 AST 24 ALT < 6 Alkaline Phosphatase 57 Total Protein 5.8 L Albumin 3.5 08/15/25 12:35 MCV MCH MCHC RDW Plt Count MPV Immature Gran % (Auto) Neut % (Auto) Lymph % (Auto) [place] % (Auto) Eos % (Auto) Baso % (Auto) Lymph # (Auto) [place] # (Auto) Eos # (Auto) Baso # (Auto) Abs Immat Gran (auto) Absolute Neuts (auto) Absolute Nucleated RBC Nucleated RBC % (auto) Anion Gap Estim Creat Clear Calc Estimated GFR POC Glucose 212 H Random Glucose Calcium Total Bilirubin AST ALT Alkaline Phosphatase Total Protein Albumin Microbiology Microbiology Results: Microbiology 08/14/25 08:54 Blood Culture - Preliminary Blood - Venous No growth after 24 hours. 08/14/25 08:44 Blood Culture - Preliminary Blood - Venous No growth after 24 hours. Assessment and Plan (1) Elevated troponin: Status: Acute Plan 64-year-old male with a past medical history of multiple prior abdominal surgeries, hypertension, diabetes mellitus, and ischemic bowels on Xarelto, who presented to the emergency department with abdominal pain and vomiting for the past three days. Ischemic colitis CT scan showing Equivocal hypoperfusion of the right and middle distal colonic branches of the SMA. Can not exclude mild colitis. among other findings get general surgery consult Likely conservative measures with IVF, pain control and bowel rest NPO prophylactic antibiotics: Ceftriaxone and Flagyl Switch to Lovenox 40 mg SC for now; consider restarting Xarelto if no plans for surgical intervention GI consultation Lactic acidosis, acute secondary to ischemia Treated with IV fluids Uncontrolled HTN with hypertensive urgency continue metoprolol and Imdur Hold Losartan for now might need a higher BP readings to support perfusion through SMA avoid hypotension Elevated Troponin Likely Type 2 from overall ischemia and HTN urgency No EKG changes to suggest ACS Keep on Tele Cardiology consult if Trop continues to increase fully anticoagulated on Lovenox Insulin-dependent diabetes with hyperglycemia currently NPO sliding scale insulin per standard protocol Lantus 10 units bedtime CAD Continue Metoprolol , aspirin, Imdur, Hold ezetimibe Paroxysmal AFib metoprolol hold Xarelto, switch to Lovenox full dose Diabetic neuropathy gabapentin Class 3 obesity BMI 34.9 Discussed importance of weight management as this may be contributing to worsening of other comorbidities Full code DVT prophylaxis with lovenox Quality Stroke Does the patient have a stroke diagnosis?: No VTE Prior VTE?: No VTE Risk Level:: Medical - moderate - high VTE Device Contraindication: Treatment Not Indicated VTE Drug Contraindication: N/A - Med Ordered
[2025-08-15 18:36] LABS: Troponin-I High Sensitivity 1308.9 ng/L (<3.5-35.0)
--- NOTE | 2025-08-15 18:43 | PC.NURSE ---
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
[2025-08-15 19:03] LABS: Glucose, Whole Blood 224 mg/dL (60-115)
--- NOTE | 2025-08-15 19:50 | HO.NURTONUR ---
Addendum entered by Lani Mcneal RN 08/15/25 19:58: 20G IV to left upper arm with LR@ 100mg/hr. Original Note: Pt from home, came in for epigastric abdominal pain and vomiting for the past three days. CT scan showing Equivocal hypoperfusion of the right and middle distal colonic branches of the SMA. Plan for IVF, pain control and bowel rest, NPO. Pt with hx of uncontrolled HTN with hypertensive urgency plan to continue metoprolol and Imdur amd Hold Losartan for now,might need a higher BP readings to support perfusion through SMA Pt had Elevated Troponin Likely Type 2 from overall ischemia and HTN urgency, keep on tele. pt A&Ox3, ambulates with a cane. Pt in hospital bed.
[2025-08-15 20:59] LABS: Glucose, Whole Blood 202 mg/dL (60-115)
[2025-08-15] MEDS: diazePAM 10 MG/2 ML CARTRIDGE 2.5 MG IVPUSH (21:46)
[2025-08-16] VITALS (9 sets, daily range): BP systolic 147–186; BP diastolic 62–90; PULSE 69–88; RESP 16–20; TEMP 36.1–36.9; O2SAT 94–99
[2025-08-16] MEDS: Lactated Ringers 1,000 ML 100 ML IVCONT ×2 (00:07→09:54)
[2025-08-16] MEDS: metroNIDAZOLE/NS 500 MG/100 ML PIGGYBACK 100 MG IV ×2 (04:13→16:40)
--- NOTE | 2025-08-16 07:00 | CA_ITS ---
Transthoracic Echocardiogram Patient (Last, First, Middle): Patric Gomez, Gender: Male Date of : 1960 Age: 64 Procedure Date: 08/16/2025 Procedure Type: Transthoracic Echocardiogram Location: [facility] [place] Height: 172.72 cm Weight: 103.87 kg BSA: 2.16 m2 Heart Rate: bpm BP: 150 / 74 mmHg Energy Auditor: TO Referring MD: Gabriel AMADOR Atmospheric Physics Professor: Huey Gould MD Symptoms: Elevated troponins Study Quality: Technically Difficult w contrast ECG Rhythm: Sinus Conclusions: - 1. Technically difficult study due to body habitus as well as positioning 2. Low normal LVEF of 50-55% without significant regional wall motion abnormality noted, with grade 1 diastolic dysfunction 3. Limited visualization of cardiac valves with cardiac valvular Dopplers within normal limits Findings Procedure Information Contrast agent, definity, is being given per protocol without apparent complications. The study quality is limited by the patients inability to tolerate the test and patients body habitus. Left Ventricle The left ventricle was not well visualized. Normal left ventricular cavity size. There is normal left ventricular wall thickness. The left ventricular systolic function is low normal. Regional wall motion abnormalities can not be excluded due to suboptimal endocardial definition. Spectral Doppler is indicative of an impaired relaxation filling pattern. E/E prime ratio is between 8 and 15 consistent with indeterminate filling pressures. difficult to evaluate for wall motion but no major wall motion abnormality seen Right Ventricle The right ventricle was not well visualized. Atria The left atrium was not well visualized. Interatrial shunt cannot be excluded. The right atrium was not well visualized. Aortic Valve The aortic valve was not well visualized. There is no aortic valve stenosis. There is no aortic valve regurgitation. Mitral Valve The mitral valve was not well visualized. There is trace mitral valve regurgitation. There is no mitral valve stenosis. Pulmonic Valve The pulmonic valve was not well visualized. Tricuspid Valve The tricuspid valve was not well visualized. Indeterminate right atrial pressure. Great Vessels The aorta was not well visualized. The pulmonary artery was not well visualized. Venous The inferior vena cava was not well visualized. Pericardium/Pleural The pericardium was not well visualized. Prior Study Comparison No prior study available for comparison. Measurements 2D Linear Measurements IVSd: 1.44 0.6-0.9/0.6-1.0 cm LVOT Diam: 2.40 3.0+(-)1.3 cm 2D Systolic Function EF 4C: 51.90 >55% EF 2C: 45.30 >55% EF BiP: 50.40 >55% Mitral Valve MV Pk E: 0.58 MV PK A: 0.74 MV Decel Time: 115.00 E/A: 0.80 E'Lateral: 11.30 E'Medial: 4.24 E/E' Med: 13.60 E/E' Lat: 5.10 PHT: 34.00 MVA PHT: 6.47 Decel Summit: 5.01 Aortic Valve AoV Pk Gustavo: 1.23 AoV Mn Gustavo: 0.79 AoV VTI: 0.19 AoV Pk Grad: 6.00 Aov Mn Grad: 3.00 DAYSI Cont.VTI: 4.09 LVOT LVOT Pk Gustavo: 1.07 LVOT Mn Gustavo: 0.67 LVOT VTI: 0.17 LVOT Pk Grad: 5.00 LVOT Mn Grad: 2.00 LVOT Diam: 2.40 LVOT Area: 4.52 Diastolic Function MV Pk E: 0.58 MV Pk A: 0.74 E/A: 0.80 E'Medial: 4.24 E/E' Med: 13.60 E' Laterial: 11.30 E/E' Lat: 5.10 Great Vessels Aorta Sinus of Valsalva: 3.68 2.0-3.5 cm Ao Asc: 3.80 2.1-3.4 cm Updated in Other Vendor System with Status of Final Huey Gould MD electronically signed on 08/16/2025 2:01:53 PM with status of Final
[2025-08-16 07:36] LABS: Glucose, Whole Blood 173 mg/dL (60-115)
[2025-08-16] MEDS: Metoprolol Succinate ER 25 MG TAB.ER.24H PO (08:09)
[2025-08-16] MEDS: Aspirin Enteric Coated 81 MG TABLET.DR PO (08:09)
--- NOTE | 2025-08-16 08:23 | P.PNGS_ITS ---
Subjective Subjective Date of Service: 08/16/25 <Clive Seo PA-C - Last Filed: 08/16/25 08:35> 08/16/25 <Derrick Perkins MD - Last Filed: 08/16/25 15:32> Interval history: Doing okay, pain marginally improved. He has continued nausea, a few episodes of vomiting. Passed multiple BMs yesterday. no other complaints <Clive Seo PA-C - Last Filed: 08/16/25 08:35> Physical Exam 2 Vital Signs: Vital Signs: Last Vital Signs Temp 97.3 F 08/16/25 07:31 Pulse 72 08/16/25 07:31 Resp 16 08/16/25 07:31 BP 173/81 H 08/16/25 07:31 Pulse Ox 97 08/16/25 07:31 O2 Del Method Room Air 08/16/25 07:31 BMI result Body Mass Index 34.9 <Clive Seo PA-C - Last Filed: 08/16/25 08:35> Const: General: comfortable and no acute distress <Clive Seo PA-C - Last Filed: 08/16/25 08:35> Orientation/consciousness: patient oriented x3 <Clive Seo PA-C - Last Filed: 08/16/25 08:35> Resp: Effort & Inspection: normal respiratory effort and able to speak in complete sentences <Clive Seo PA-C - Last Filed: 08/16/25 08:35> GI: Inspection: No distended <Clive Seo PA-C - Last Filed: 08/16/25 08:35> Palpation (GI): Soft to palpation and Tenderness to palpation present (GI) (upper abdomen) in the epigastrum <Clive Seo PA-C - Last Filed: 08/16/25 08:35> Neuro: General: patient oriented x3 <FELICIA Blackman Last Filed: 08/16/25 08:35> Objective Data Active Medications Acetaminophen (Acetaminophen 325 Mg Tablet) 650 mg PO Q6H PRN PRN Reason: Pain, Mild 1-3,fever,headache Aspirin (Aspirin Enteric Coated 81 Mg Tablet.) 81 mg PO DAILY COUNTS INCLUDE 234 BEDS AT THE [facility] Last Admin: 08/16/25 08:09 Dose: 81 mg Documented By: ELIECER Calcium Carbonate (Calcium Carbonate 750 Mg Tab.Chew) 750 mg PO Q4H PRN PRN Reason: Heartburn Ceftriaxone Sodium (Ceftriaxone Sodium 1 Gm Vial) 1 gm IVPUSH Q24H COUNTS INCLUDE 234 BEDS AT THE [facility] Last Admin: 08/16/25 08:08 Dose: 1 gm Documented By: ELIECER Enoxaparin Sodium (Enoxaparin Sodium 120 Mg/0.8 Ml Syringe) 110 mg SUBCUT Q12H COUNTS INCLUDE 234 BEDS AT THE [facility] Last Admin: 08/16/25 06:32 Dose: 110 mg Documented By: CRESCENCIO Gabapentin (Gabapentin 300 Mg Capsule) 300 mg PO TID COUNTS INCLUDE 234 BEDS AT THE [facility] Last Admin: 08/16/25 08:09 Dose: 300 mg Documented By: ELIECER Hydromorphone HCl (Hydromorphone Hcl 0.5 Mg/0.5 Ml Syringe) 0.5 mg IVPUSH Q4H PRN; Protocol PRN Reason: Pain, Severe (Pain Scale 7-10) Last Admin: 08/16/25 04:15 Dose: 0.5 mg Documented By: CRESCENCIO Lactated Ringer's (Lr) 1,000 mls @ 100 mls/hr IVCONT .Q10H COUNTS INCLUDE 234 BEDS AT THE [facility] Last Admin: 08/16/25 00:07 Dose: 100 mls/hr Documented By: CRESCENCIO Metronidazole (Flagyl) 500 mg in 100 mls @ 100 mls/hr IV Q12H COUNTS INCLUDE 234 BEDS AT THE [facility] Last Infusion: 08/16/25 05:19 Dose: Infused Documented By: CRESCENCIO Influenza Virus Vaccine (Flu Vacc [id number](6mo Up)/Pf 0.5 Ml Syringe) 0.5 ml IM .ONCE ONE Stop: 08/16/25 09:01 Insulin Glargine (Insulin Glargine,Hum.Rec.Anlog 100 Unit/Ml 10 Ml Vial) 10 unit SUBCUT BEDTIME COUNTS INCLUDE 234 BEDS AT THE [facility] Last Admin: 08/14/25 20:18 Dose: 10 unit Documented By: JAKE Insulin Human Lispro (Insulin Lispro 100 Unit/Ml 3 Ml Vial) 0 unit SUBCUT QIDACHS COUNTS INCLUDE 234 BEDS AT THE [facility]; Protocol Last Admin: 08/16/25 08:20 Dose: Not Given Documented By: ELIECER Non-Admin Reason: NPO/Physician approved. Isosorbide Mononitrate (Isosorbide Mononitrate 30 Mg Tab.Er.24h) 30 mg PO DAILY COUNTS INCLUDE 234 BEDS AT THE [facility]; Protocol Last Admin: 08/16/25 08:08 Dose: 30 mg Documented By: ELIECER Magnesium Hydroxide (Milk Of Magnesia 30 Ml Oral.Susp) 30 ml PO DAILY PRN PRN Reason: Constipation Melatonin (Melatonin 3 Mg Tablet) 6 mg PO BEDTIME PRN PRN Reason: Insomnia Metoprolol Succinate (Metoprolol Succinate Er 25 Mg Tab.Er.24h) 25 mg PO DAILY COUNTS INCLUDE 234 BEDS AT THE [facility]; Protocol Last Admin: 08/16/25 08:09 Dose: 25 mg Documented By: ELIECER Ondansetron HCl (Ondansetron Hcl 4 Mg/2 Ml Vial) 4 mg IVPUSH Q8H PRN PRN Reason: Nausea and Vomiting Last Admin: 08/16/25 03:32 Dose: 4 mg Documented By: CRESCENCIO Pantoprazole Sodium (Pantoprazole Sodium 40 Mg/10 Ml Vial) 40 mg IVPUSH BID@0630,1630 COUNTS INCLUDE 234 BEDS AT THE [facility] Last Admin: 08/16/25 06:32 Dose: 40 mg Documented By: CRESCENCIO Sodium Chloride (0.9 % Sodium Chloride Flush 3 Ml Syringe) 3 ml IVFLUSH QSHIFT COUNTS INCLUDE 234 BEDS AT THE [facility] Last Admin: 08/16/25 08:18 Dose: Not Given Documented By: ELIECER Non-Admin Reason: Previously Administered <Clive Seo PA-C - Last Filed: 08/16/25 08:35> Labs CBC & Chem 7: 08/15/25 03:44 08/16/25 08:49 <Clive Seo PA-C - Last Filed: 08/16/25 08:35> Labs: Laboratory Results - last 24 hr 08/15/25 08/15/25 08/15/25 12:35 17:50 18:58 POC Glucose 212 H 224 H Troponin I High Sens 1308.9 H* D 08/15/25 08/16/25 20:53 07:29 POC Glucose 202 H 173 H Troponin I High Sens <Clive Seo PA-C - Last Filed: 08/16/25 08:35> Microbiology Microbiology Results: Microbiology 08/14/25 08:54 Blood Culture - Preliminary Blood - Venous No growth after 24 hours. 08/14/25 08:44 Blood Culture - Preliminary Blood - Venous No growth after 24 hours. <Clive Seo PA-C - Last Filed: 08/16/25 08:35> Procedures Date of Service Date of Service: 08/16/25 <Clive Seo PA-C - Last Filed: 08/16/25 08:35> 08/16/25 <Derrick Perkins MD - Last Filed: 08/16/25 15:32> Progress Note: A&P Assessment and plan (1) Ischemic bowel disease: Status: Acute <Clive Seo PA-C - Last Filed: 08/16/25 08:35> Assessment and Plan: Admits to periumbilical pain No nausea or vomiting Passing flatus Abdomen is soft and very benign Okay to try on sips of clear liquids Elevated troponins likely from demand Consider reconsulting vascular surgery for opinion about CAT scan findings Seen and examined independently <Derrick Perkins MD - Last Filed: 08/16/25 15:32> Assessment and Plan: 64 year old male history of hypertension, gastroparesis, class 1 obesity, CAD, paroxysmal AFib, insulin-dependent diabetes and diabetic neuropathy, admitted for abdominal pain, likely ischemic colitis as he was recently admitted for this. Significantly elevated troponins yesterday. He is anticoagulated, no EKG changes. Hospitalist considering type 2 ischemia. They are trending this, if increasing cardiology consult. His is largely unchanged since yesterday, slight improvement in pain. Continued nausea or vomiting. He continues to have regular bowel movements, denies melena or BRB. Currently treating conservatively with bowel rest, IVF. No surgical intervention planned at this time. Will continue to follow. NPO antiemetics as needed pain control ambulation as tolerated <Clive Seo PA-C - Last Filed: 08/16/25 08:35> Time Spent With Patient Time: Total time managing care of this patient today ____ minutes. <Clive Seo PA-C - Last Filed: 08/16/25 08:35> Quality Stroke Does the patient have a stroke diagnosis?: No <Clive Seo PA-C - Last Filed: 08/16/25 08:35> VTE Prior VTE?: No <FELICIA Blackman Last Filed: 08/16/25 08:35> VTE Risk Level:: Medical - moderate - high <Clive Seo PA-C - Last Filed: 08/16/25 08:35> VTE Device Contraindication: Treatment Not Indicated <Clive Seo PA-C - Last Filed: 08/16/25 08:35> VTE Drug Contraindication: N/A - Med Ordered <Clive Seo PA-C - Last Filed: 08/16/25 08:35>
--- NOTE | 2025-08-16 08:24 | P.PNIM_ITS ---
Subjective Subjective Date of Service: 08/16/25 Review of Systems Follow up NSTEMI, abd pain No nausea, vomiting Physical Exam 2 Exam: Exam: Appearing in no acute distress lung sounds are clear to auscultation heart regular rate rhythm, clear S1, S2 positive bowel sounds, abdomen is soft, nontender neuro patient is alert x3, no focal deficits Vital Signs: Vital Signs: Last Vital Signs Temp 97.3 F 08/16/25 07:31 Pulse 72 08/16/25 07:31 Resp 16 08/16/25 07:31 BP 173/81 H 08/16/25 07:31 Pulse Ox 97 08/16/25 07:31 O2 Del Method Room Air 08/16/25 07:31 BMI result Body Mass Index 34.9 Objective Data Active Medications Acetaminophen (Acetaminophen 325 Mg Tablet) 650 mg PO Q6H PRN PRN Reason: Pain, Mild 1-3,fever,headache Aspirin (Aspirin Enteric Coated 81 Mg Tablet.) 81 mg PO DAILY [facility] Last Admin: 08/16/25 08:09 Dose: 81 mg Documented By: ELIECER Calcium Carbonate (Calcium Carbonate 750 Mg Tab.Chew) 750 mg PO Q4H PRN PRN Reason: Heartburn Ceftriaxone Sodium (Ceftriaxone Sodium 1 Gm Vial) 1 gm IVPUSH Q24H [facility] Last Admin: 08/16/25 08:08 Dose: 1 gm Documented By: ELIECER Enoxaparin Sodium (Enoxaparin Sodium 120 Mg/0.8 Ml Syringe) 110 mg SUBCUT Q12H [facility] Last Admin: 08/16/25 06:32 Dose: 110 mg Documented By: CRESCENCIO Gabapentin (Gabapentin 300 Mg Capsule) 300 mg PO TID [facility] Last Admin: 08/16/25 08:09 Dose: 300 mg Documented By: ELIECER Hydromorphone HCl (Hydromorphone Hcl 0.5 Mg/0.5 Ml Syringe) 0.5 mg IVPUSH Q4H PRN; Protocol PRN Reason: Pain, Severe (Pain Scale 7-10) Last Admin: 08/16/25 04:15 Dose: 0.5 mg Documented By: CRESCENCIO Lactated Ringer's (Lr) 1,000 mls @ 100 mls/hr IVCONT .Q10H [facility] Last Admin: 08/16/25 00:07 Dose: 100 mls/hr Documented By: CRESCENCIO Metronidazole (Flagyl) 500 mg in 100 mls @ 100 mls/hr IV Q12H [facility] Last Infusion: 08/16/25 05:19 Dose: Infused Documented By: CRESCENCIO Influenza Virus Vaccine (Flu Vacc [id number](6mo Up)/Pf 0.5 Ml Syringe) 0.5 ml IM .ONCE ONE Stop: 08/16/25 09:01 Insulin Glargine (Insulin Glargine,Hum.Rec.Anlog 100 Unit/Ml 10 Ml Vial) 10 unit SUBCUT BEDTIME [facility] Last Admin: 08/14/25 20:18 Dose: 10 unit Documented By: JAKE Insulin Human Lispro (Insulin Lispro 100 Unit/Ml 3 Ml Vial) 0 unit SUBCUT QIDACHS [facility]; Protocol Last Admin: 08/16/25 08:20 Dose: Not Given Documented By: ELIECER Non-Admin Reason: NPO/Physician approved. Isosorbide Mononitrate (Isosorbide Mononitrate 30 Mg Tab.Er.24h) 30 mg PO DAILY [facility]; Protocol Last Admin: 08/16/25 08:08 Dose: 30 mg Documented By: ELIECER Magnesium Hydroxide (Milk Of Magnesia 30 Ml Oral.Susp) 30 ml PO DAILY PRN PRN Reason: Constipation Melatonin (Melatonin 3 Mg Tablet) 6 mg PO BEDTIME PRN PRN Reason: Insomnia Metoprolol Succinate (Metoprolol Succinate Er 25 Mg Tab.Er.24h) 25 mg PO DAILY [facility]; Protocol Last Admin: 08/16/25 08:09 Dose: 25 mg Documented By: ELIECER Ondansetron HCl (Ondansetron Hcl 4 Mg/2 Ml Vial) 4 mg IVPUSH Q8H PRN PRN Reason: Nausea and Vomiting Last Admin: 08/16/25 03:32 Dose: 4 mg Documented By: CRESCENCIO Pantoprazole Sodium (Pantoprazole Sodium 40 Mg/10 Ml Vial) 40 mg IVPUSH BID@0630,1630 [facility] Last Admin: 08/16/25 06:32 Dose: 40 mg Documented By: CRESCENCIO Sodium Chloride (0.9 % Sodium Chloride Flush 3 Ml Syringe) 3 ml IVFLUSH QSHIFT [facility] Last Admin: 08/16/25 08:18 Dose: Not Given Documented By: ELIECER Non-Admin Reason: Previously Administered Labs 08/15/25 03:44 08/16/25 08:49 Labs: Laboratory Results - last 24 hr 08/15/25 08/15/25 08/15/25 12:35 17:50 18:58 POC Glucose 212 H 224 H Troponin I High Sens 1308.9 H* D 08/15/25 08/16/25 20:53 07:29 POC Glucose 202 H 173 H Troponin I High Sens Microbiology Microbiology Results: Microbiology 08/14/25 08:54 Blood Culture - Preliminary Blood - Venous No growth after 24 hours. 08/14/25 08:44 Blood Culture - Preliminary Blood - Venous No growth after 24 hours. Assessment and Plan (1) Elevated troponin: Status: Acute Plan 64-year-old male with a past medical history of multiple prior abdominal surgeries, hypertension, diabetes mellitus, and ischemic bowels on Xarelto, who presented to the emergency department with abdominal pain and vomiting for the past three days. NSTEMI Likely Type 2 from overall ischemia and HTN urgency No EKG changes to suggest ACS Keep on Tele Cardiology consult fully anticoagulated on Lovenox Ischemic colitis CT scan showing Equivocal hypoperfusion of the right and middle distal colonic branches of the SMA. Can not exclude mild colitis. among other findings get general surgery consult Likely conservative measures with IVF, pain control and bowel rest continue Ceftriaxone and Flagyl Switch to Lovenox 40 mg SC for now; consider restarting Xarelto if no plans for surgical intervention GI consultation> rec vascular surgery Lactic acidosis, acute secondary to ischemia Treated with IV fluids Uncontrolled HTN with hypertensive urgency continue metoprolol and Imdur Hold Losartan for now avoid hypotension Insulin-dependent diabetes with hyperglycemia sliding scale insulin per standard protocol Lantus 10 units bedtime CAD Continue Metoprolol , aspirin, Imdur, Hold ezetimibe Paroxysmal AFib metoprolol hold Xarelto, continue Lovenox full dose Diabetic neuropathy gabapentin Class 3 obesity weight loss encouraged Full code DVT prophylaxis with lovenox therapeutic dose Quality Stroke Does the patient have a stroke diagnosis?: No VTE Prior VTE?: No VTE Risk Level:: Medical - moderate - high VTE Device Contraindication: Treatment Not Indicated VTE Drug Contraindication: N/A - Med Ordered
--- NOTE | 2025-08-16 08:44 | P.CNGI_ITS ---
History of Present Illness Data of Consult Service Date: 08/16/25 Requesting physician: Yael Lopez Primary Care Provider: Marley Rick MD [facility] Reason for consult: Colitis This is a 64-year-old gentleman past medical history of coronary artery disease, peripheral vascular disease, Afib on Xarelto, diabetes, gastroparesis, who presented to the hospital on 08/14 for abdominal pain and vomiting. Gastroenterology has been consulted for evaluation. Patient seen at bedside and reports intermittent episodes of severe diffuse abd pain which is crampy in nature assoc with chills, nausea, loss of appetite and loose stools. This is despite having normal to slightly elevated blood sugars (250 or less). This episode started almost 4 days ago. Food intake makes the pain worse. Heating pad and oxy helps. Has lost almost 15 lbs in the past 4 months alone. CTA abd/pel from this admission and 07/19 personally reviewed and suggestive of possible R sided colon ischemia due to compromised SMA supply. Of note, patient has had previous admission with similar presentation. Has been seen by vascular surgery and was deemed to have adequate supply from the mesenteric vasculature at that time. He is on Xarelto for anticoagulation. Review of Systems 2 Review of Systems: Yes all other systems are reviewed and are negative PMFSH Past Medical History Medical History (Updated 08/15/25 @ 15:38 by Clive Seo PA-C) Hypertensive urgency Abdominal pain PVD (peripheral vascular disease) Gastroparesis DKA (diabetic ketoacidosis) Obesity (BMI 30-39.9) PAD (peripheral artery disease) Afib Amputation of left great toe Lower limb amputation, great toe CAD (coronary artery disease) DMII (diabetes mellitus, type 2) Orthopedic hardware present Hyperglycemia Cellulitis Asthma Diabetes Hypertension FHx: bilateral hip replacements Family History Family History Father Cancer of neck Mother Uterus cancer Other No family history of coronary artery disease Surgical History Surgical History History of amputation of toe (07/29/22) History of amputation of great toe (01/07/22) History of back surgery History of neck surgery History of ankle surgery H/O bilateral hip replacements S/P quadruple vessel bypass Social History Social History Household Members: Spouse and Children Household Members Other:: 3 Housing: Condominium Are you a primary manager critical care to a significant other at home: No Do you presently have visiting nurse or other home services: No Alcohol intake: never Comment: refused bed or chair alarm Patient Tobacco Use Status: Former Tobacco user Tobacco use type: Cigarette e-Cigarette/Vaping Use: Never Used Second Hand Smoke Exposure: No Substance Use Type: Marijuana Advance Directives Date on File: 07/20/25 service: No Current occupational status: disabled Meds Allergies Allergy/AdvReac Type Severity Reaction Status Date / Time morphine AdvReac Intermediate Hallucinati Verified 08/14/25 06:26 ons Active Medications: Current Medications Acetaminophen (Acetaminophen 325 Mg Tablet) 650 mg PO Q6H PRN PRN Reason: Pain, Mild 1-3,fever,headache Aspirin (Aspirin Enteric Coated 81 Mg Tablet.Dr) 81 mg PO DAILY [facility] Last Admin: 08/16/25 08:09 Dose: 81 mg Calcium Carbonate (Calcium Carbonate 750 Mg Tab.Chew) 750 mg PO Q4H PRN PRN Reason: Heartburn Ceftriaxone Sodium (Ceftriaxone Sodium 1 Gm Vial) 1 gm IVPUSH Q24H [facility] Last Admin: 08/16/25 08:08 Dose: 1 gm Enoxaparin Sodium (Enoxaparin Sodium 120 Mg/0.8 Ml Syringe) 110 mg SUBCUT Q12H [facility] Last Admin: 08/16/25 06:32 Dose: 110 mg Gabapentin (Gabapentin 300 Mg Capsule) 300 mg PO TID [facility] Last Admin: 08/16/25 08:09 Dose: 300 mg Hydromorphone HCl (Hydromorphone Hcl 0.5 Mg/0.5 Ml Syringe) 0.5 mg IVPUSH Q4H PRN; Protocol PRN Reason: Pain, Severe (Pain Scale 7-10) Last Admin: 08/16/25 04:15 Dose: 0.5 mg Lactated Ringer's (Lr) 1,000 mls @ 100 mls/hr IVCONT .Q10H [facility] Last Admin: 08/16/25 00:07 Dose: 100 mls/hr Metronidazole (Flagyl) 500 mg in 100 mls @ 100 mls/hr IV Q12H [facility] Last Infusion: 08/16/25 05:19 Dose: Infused Influenza Virus Vaccine (Flu Vacc [id number](6mo Up)/Pf 0.5 Ml Syringe) 0.5 ml IM .ONCE ONE Stop: 08/16/25 09:01 Insulin Glargine (Insulin Glargine,Hum.Rec.Anlog 100 Unit/Ml 10 Ml Vial) 10 unit SUBCUT BEDTIME [facility] Last Admin: 08/14/25 20:18 Dose: 10 unit Insulin Human Lispro (Insulin Lispro 100 Unit/Ml 3 Ml Vial) 0 unit SUBCUT QIDACHS [facility]; Protocol Last Admin: 08/16/25 08:20 Dose: Not Given Isosorbide Mononitrate (Isosorbide Mononitrate 30 Mg Tab.Er.24h) 30 mg PO DAILY [facility]; Protocol Last Admin: 08/16/25 08:08 Dose: 30 mg Magnesium Hydroxide (Milk Of Magnesia 30 Ml Oral.Susp) 30 ml PO DAILY PRN PRN Reason: Constipation Melatonin (Melatonin 3 Mg Tablet) 6 mg PO BEDTIME PRN PRN Reason: Insomnia Metoprolol Succinate (Metoprolol Succinate Er 25 Mg Tab.Er.24h) 25 mg PO DAILY [facility]; Protocol Last Admin: 08/16/25 08:09 Dose: 25 mg Ondansetron HCl (Ondansetron Hcl 4 Mg/2 Ml Vial) 4 mg IVPUSH Q8H PRN PRN Reason: Nausea and Vomiting Last Admin: 08/16/25 03:32 Dose: 4 mg Pantoprazole Sodium (Pantoprazole Sodium 40 Mg/10 Ml Vial) 40 mg IVPUSH BID@0630,1630 [facility] Last Admin: 08/16/25 06:32 Dose: 40 mg Sodium Chloride (0.9 % Sodium Chloride Flush 3 Ml Syringe) 3 ml IVFLUSH QSHIFT [facility] Last Admin: 08/16/25 08:18 Dose: Not Given Home Medications ?Medication ?Instructions ?Recorded ?Confirmed ?Last Taken ?Type ezetimibe 10 mg tablet 10 mg PO BEDTIME 01/03/2207/17/25 History gabapentin 300 mg capsule 300 mg PO TID 01/03/2208/1407/17/25 History insulin glargine 100 unit/mL 10 unit subcut BEDTIME 08/14/25 07/17/25 History subcutaneous solution (Lantus U-100 Insulin) isosorbide mononitrate 30 mg 30 mg PO DAILY 01/03/22 1 07/17/25 History tablet,extended release 24 hr loratadine 10 mg tablet 10 mg PO DAILY 01/03/2207/2707/17/25 History losartan 25 mg tablet 25 mg PO DAILY 01/03/2207/2707/17/25 History meclizine 25 mg tablet 25 mg PO TID PRN Dizziness O r 01/03/22 08/14/25 05/23/25 History Vertigo rosuvastatin 40 mg tablet 40 mg PO BEDTIME 01/03/2207/17/25 History aspirin 81 mg tablet,delayed 81 mg PO DAILY 08/04/22 1 07/17/25 History release furosemide 20 mg tablet 20 mg PO DAILY 11/13/2207/2707/17/25 History metoprolol succinate 25 mg 25 mg PO DAILY 10/14/2407/17/25 History tablet,extended release 24 hr insulin lispro 100 unit/mL See Protocol subcut QIDACHS 12/16/24 08/14/25 07/17/25 History subcutaneous solution rivaroxaban 20 mg tablet (Xarelto) 20 mg PO DAILY@1700 12/16/24 08/14/25 07/17/25 History insulin glargine 100 unit/mL 8 unit subcut DAILY 03/2308/14/25 07/17/25 History subcutaneous solution (Lantus U-100 Insulin) glucagon 1 mg/0.2 mL subcutaneous 1 mg subcut ONCE PRN Hypoglycemia 05/26/25 08/14/25 Unknown History auto-injector (Gvoke HypoPen 2-Pack) pantoprazole 40 mg tablet,delayed 40 mg PO BID@0630,16 30 05/26/25 08/14/25 07/17/25 History release ondansetron 4 mg disintegrating 4 mg PO Q8H PRN Nausea And Vomiting 07/19/25 08/14/25 Unknown History tablet venlafaxine 100 mg tablet 100 mg PO BID 08/14/2508/14 Unknown History Physical Exam 2 Vital Signs: Vital Signs: Last Vital Signs Temp 97.3 F 08/16/25 07:31 Pulse 72 08/16/25 07:31 Resp 16 08/16/25 07:31 BP 173/81 H 08/16/25 07:31 Pulse Ox 97 08/16/25 07:31 O2 Del Method Room Air 08/16/25 07:31 BMI result Body Mass Index 34.9 Elderly gent Ill appearing Abd soft, tender, no distention No overt resp distress no peripheral edema Results Labs 08/15/25 03:44 08/16/25 08:49 Microbiology Microbiology Results: Microbiology 08/14/25 08:54 Blood - Venous Blood Culture - Preliminary No growth after 24 hours. 08/14/25 08:44 Blood - Venous Blood Culture - Preliminary No growth after 24 hours. 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 No overt clot noted, pt has been chronic anticoagulation for Afib. Endorses sitophobia and weight loss. Recommendations: - A diagnostic colo with R sided ischemia will be high risk. - Would recommend vascular surg consultation to discuss revascularization. - Consider cardiology consultation and/or echo to r/o stress induced cardiomyopathy given sig trop leak. Thank you for allowing me to participate in his care. Please do not hesitate to reach out for questions or concerns. Procedures Date of Service Date of Service: 08/16/25
[2025-08-16 09:27] LABS: Anion Gap 12 (12-20); Blood Urea Nitrogen 8 mg/dL (9-16); Calcium 8.9 mg/dL (8.4-10.2); Carbon Dioxide 23 mmol/L (22-29); Chloride 110 mmol/L (96-108); Creatinine Clr Calc Pharmacy 153.1; Estimated Glomerular Filt Rate > 60; Potassium 4.1 mmol/L (3.3-5.1); Sodium 141 mmol/L (135-145)
[2025-08-16 10:12] LABS: Troponin-I High Sensitivity 648.4 ng/L (<3.5-35.0)
--- NOTE | 2025-08-16 10:30 | ECG_ITS ---
Test Reason : elevated [id number] Blood Pressure : */* mmHG Vent. Rate : 83 BPM Atrial Rate : 83 BPM P-R Int : 184 ms QRS Dur : 92 ms QT Int : 398 ms P-R-T Axes : 49 -13 -10 degrees QTcB Int : 467 ms Normal sinus rhythm Normal ECG When compared with ECG of 14-Aug-2025 14:56, Nonspecific T wave abnormality, improved in Lateral leads Referred By: Huey Gould Electronically Signed By: HUEY GOULD MD
[2025-08-16 11:09] LABS: Glucose, Whole Blood 221 mg/dL (60-115)
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
--- NOTE | 2025-08-16 12:19 | HO.WOUND ---
Wound Consult: Initial 64 yr old male admitted to [facility] [place] [place] on 08/14/25- See progress notes and H&P for detailed history. Wound consult placed for left arm skin tear. Patient agreeable to assessment and photo documentation. Patient reports skin tear sustained due to tape removal. Left arm Etiology: Skin tear/medical adhesive related injury (MARSI Measurements: 0.8cm x 0.8cm x 0.1cm Wound Bed: moist red x 2 wounds Drainage / Odor: scant bloody drainage, no odor Edges: ? attached Jacob wound: ? No Induration, Fluctuance or Warmth noted Pain: yes Goals of Treatment: ? moist healing and atraumatic removal with xeroform Recommendations: 1. Turn and Reposition every 2 hours and as needed for patient comfort. Use pillows or wedges to support off loading positions. 2. Off Load all bony prominences with use of pillows and heel boots if needed. Apply Preventative foams where needed. 3. Monitor for incontinence and moisture control, use barrier creams when needed for prevention and treatment. 4. Provide adequate and supplemental nutrition. 5. Order or Continue low air loss mattress. 6. When applicable maintain blood glucose levels per Providers order. Left Forearm: cleanse with normal saline, apply skin prep jacob wound, apply xeroform to wound bed, cover with gauze/abd, wrap with rolled gauze, change daily and PRN Re-consult wound care Nurse for wound deterioration or wound changes.
[2025-08-16 16:21] LABS: Glucose, Whole Blood 185 mg/dL (60-115)
[2025-08-16 20:44] LABS: Glucose, Whole Blood 146 mg/dL (60-115)
[2025-08-17] MEDS: 0.9 % Sodium Chloride Flush 3 ML SYRINGE IVFLUSH ×4 (00:52→21:59)
[2025-08-17 03:07] VITALS: BP 157/77; PULSE 69; RESP 18; TEMP 36.2; O2SAT 96
[2025-08-17] MEDS: metroNIDAZOLE/NS 500 MG/100 ML PIGGYBACK 100 MG IV ×2 (04:52→17:49)
[2025-08-17 07:33] LABS: Glucose, Whole Blood 124 mg/dL (60-115)
[2025-08-17 08:00] VITALS: BP 155/77; PULSE 67; RESP 16; TEMP 36.7; O2SAT 96
[2025-08-17] MEDS: Aspirin Enteric Coated 81 MG TABLET.DR PO (09:41)
[2025-08-17] MEDS: Metoprolol Succinate ER 25 MG TAB.ER.24H PO (09:41)
--- NOTE | 2025-08-17 10:18 | PM.PNGS ---
Subjective Subjective Date of Service: 08/17/25 Interval history: Said he could not sleep last night because of of anxiety Describes umbilical pain Passing flatus No nausea or vomiting Physical Exam Vital Signs: Vital Signs: Last Vital Signs Temp 98.1 F 08/17/25 08:00 Pulse 67 08/17/25 08:00 Resp 16 08/17/25 08:00 BP 155/77 H 08/17/25 08:00 Pulse Ox 96 08/17/25 08:00 O2 Del Method Room Air 08/17/25 08:00 BMI result Body Mass Index 34.9 Const: General: comfortable and no acute distress Nutritional Appearance: obese Resp: Effort & Inspection: normal respiratory effort Cardio: Rate: regular rate GI: Palpation (GI): Soft to palpation, not firm, Tenderness to palpation present (GI) (Abdominal pain around the umbilicus), no guarding and not rigid Objective Data Active Medications Acetaminophen (Acetaminophen 325 Mg Tablet) 650 mg PO Q6H PRN PRN Reason: Pain, Mild 1-3,fever,headache Aspirin (Aspirin Enteric Coated 81 Mg Tablet.) 81 mg PO DAILY [facility] Last Admin: 08/17/25 09:41 Dose: 81 mg Documented By: RITA Calcium Carbonate (Calcium Carbonate 750 Mg Tab.Chew) 750 mg PO Q4H PRN PRN Reason: Heartburn Ceftriaxone Sodium (Ceftriaxone Sodium 1 Gm Vial) 1 gm IVPUSH Q24H [facility] Last Admin: 08/17/25 09:41 Dose: 1 gm Documented By: RITA Enoxaparin Sodium (Enoxaparin Sodium 120 Mg/0.8 Ml Syringe) 110 mg SUBCUT Q12H [facility] Last Admin: 08/17/25 06:04 Dose: 110 mg Documented By: JENNIE Gabapentin (Gabapentin 300 Mg Capsule) 300 mg PO TID [facility] Last Admin: 08/17/25 09:41 Dose: 300 mg Documented By: RITA Hydromorphone HCl (Hydromorphone Hcl 0.5 Mg/0.5 Ml Syringe) 0.5 mg IVPUSH Q4H PRN; Protocol PRN Reason: Pain, Severe (Pain Scale 7-10) Last Admin: 08/17/25 09:47 Dose: 0.5 mg Documented By: RITA Metronidazole (Flagyl) 500 mg in 100 mls @ 100 mls/hr IV Q12H [facility] Last Infusion: 08/17/25 05:58 Dose: Infused Documented By: JENNIE Insulin Glargine (Insulin Glargine,Hum.Rec.Anlog 100 Unit/Ml 10 Ml Vial) 10 unit SUBCUT BEDTIME [facility] Last Admin: 08/16/25 22:34 Dose: Not Given Documented By: JENNIE Non-Admin Reason: poc 146, pt NPO. Insulin Human Lispro (Insulin Lispro 100 Unit/Ml 3 Ml Vial) 0 unit SUBCUT QIDACHS [facility]; Protocol Last Admin: 08/17/25 07:40 Dose: Not Given Documented By: RITA Non-Admin Reason: No Insulin Coverage Isosorbide Mononitrate (Isosorbide Mononitrate 30 Mg Tab.Er.24h) 30 mg PO DAILY [facility]; Protocol Last Admin: 08/17/25 09:41 Dose: 30 mg Documented By: RITA Magnesium Hydroxide (Milk Of Magnesia 30 Ml Oral.Susp) 30 ml PO DAILY PRN PRN Reason: Constipation Melatonin (Melatonin 3 Mg Tablet) 6 mg PO BEDTIME PRN PRN Reason: Insomnia Metoprolol Succinate (Metoprolol Succinate Er 25 Mg Tab.Er.24h) 25 mg PO DAILY [facility]; Protocol Last Admin: 08/17/25 09:41 Dose: 25 mg Documented By: RITA Ondansetron HCl (Ondansetron Hcl 4 Mg/2 Ml Vial) 4 mg IVPUSH Q8H PRN PRN Reason: Nausea and Vomiting Last Admin: 08/17/25 09:43 Dose: 4 mg Documented By: RITA Pantoprazole Sodium (Pantoprazole Sodium 40 Mg/10 Ml Vial) 40 mg IVPUSH BID@0630,1630 [facility] Last Admin: 08/17/25 06:03 Dose: 40 mg Documented By: JENNIE Sodium Chloride (0.9 % Sodium Chloride Flush 3 Ml Syringe) 3 ml IVFLUSH QSHIFT [facility] Last Admin: 08/17/25 09:48 Dose: 3 ml Documented By: RITA Labs 08/15/25 03:44 08/16/25 08:49 Labs: Laboratory Results - last 24 hr 08/16/25 08/16/2508/16/25 11:02 16:18 20:35 POC Glucose 221 H 185 H 146 H 08/17/25 07:25 POC Glucose 124 H Microbiology Microbiology Results: Microbiology 08/14/25 08:54 Blood Culture - Preliminary Blood - Venous No growth after 48 hours. 08/14/25 08:44 Blood Culture - Preliminary Blood - Venous No growth after 48 hours. Procedures Date of Service Date of Service: 08/17/25 Progress Note: A&P Assessment and plan (1) Abdominal pain: Status: Acute Assessment and Plan: Etiology uncertain Cat scan shows stable atherosclerosis of the mesenteric vessels No nausea or vomiting He is passing flatus He wants to try eat Okay to start on clear liquids Encouraged to ambulate Consider re-evaluation with vascular surgery Time Spent With Patient Time: Total time managing care of this patient today ____ minutes. Quality Stroke Does the patient have a stroke diagnosis?: No VTE Prior VTE?: No VTE Risk Level:: Medical - moderate - high VTE Device Contraindication: Treatment Not Indicated VTE Drug Contraindication: N/A - Med Ordered
--- NOTE | 2025-08-17 10:40 | HO.PM.IMPN ---
Subjective Subjective Date of Service: 08/17/25 Review of Systems Follow up NSTEMI, abd pain chronic mesenteric ischemia still with abd pain and nausea Physical Exam Exam: Exam: Appearing in no acute distress lung sounds are clear to auscultation heart regular rate rhythm, clear S1, S2 positive bowel sounds, abdomen is soft, diffuse tenderness neuro patient is alert x3, no focal deficits Vital Signs: Vital Signs: Last Vital Signs Temp 98.1 F 08/17/25 08:00 Pulse 67 08/17/25 08:00 Resp 16 08/17/25 08:00 BP 155/77 H 08/17/25 08:00 Pulse Ox 96 08/17/25 08:00 O2 Del Method Room Air 08/17/25 08:00 BMI result Body Mass Index 34.9 Objective Data Active Medications Acetaminophen (Acetaminophen 325 Mg Tablet) 650 mg PO Q6H PRN PRN Reason: Pain, Mild 1-3,fever,headache Aspirin (Aspirin Enteric Coated 81 Mg Tablet.Dr) 81 mg PO DAILY [facility] Last Admin: 08/17/25 09:41 Dose: 81 mg Documented By: RITA Calcium Carbonate (Calcium Carbonate 750 Mg Tab.Chew) 750 mg PO Q4H PRN PRN Reason: Heartburn Ceftriaxone Sodium (Ceftriaxone Sodium 1 Gm Vial) 1 gm IVPUSH Q24H [facility] Last Admin: 08/17/25 09:41 Dose: 1 gm Documented By: RITA Enoxaparin Sodium (Enoxaparin Sodium 120 Mg/0.8 Ml Syringe) 110 mg SUBCUT Q12H [facility] Last Admin: 08/17/25 06:04 Dose: 110 mg Documented By: JENNIE Gabapentin (Gabapentin 300 Mg Capsule) 300 mg PO TID [facility] Last Admin: 08/17/25 09:41 Dose: 300 mg Documented By: RITA Hydromorphone HCl (Hydromorphone Hcl 0.5 Mg/0.5 Ml Syringe) 0.5 mg IVPUSH Q4H PRN; Protocol PRN Reason: Pain, Severe (Pain Scale 7-10) Last Admin: 08/17/25 09:47 Dose: 0.5 mg Documented By: RITA Metronidazole (Flagyl) 500 mg in 100 mls @ 100 mls/hr IV Q12H [facility] Last Infusion: 08/17/25 05:58 Dose: Infused Documented By: JENNIE Insulin Glargine (Insulin Glargine,Hum.Rec.Anlog 100 Unit/Ml 10 Ml Vial) 10 unit SUBCUT BEDTIME [facility] Last Admin: 08/16/25 22:34 Dose: Not Given Documented By: JENNIE Non-Admin Reason: poc 146, pt NPO. Insulin Human Lispro (Insulin Lispro 100 Unit/Ml 3 Ml Vial) 0 unit SUBCUT QIDACHS [facility]; Protocol Last Admin: 08/17/25 07:40 Dose: Not Given Documented By: RITA Non-Admin Reason: No Insulin Coverage Isosorbide Mononitrate (Isosorbide Mononitrate 30 Mg Tab.Er.24h) 30 mg PO DAILY [facility]; Protocol Last Admin: 08/17/25 09:41 Dose: 30 mg Documented By: RITA Magnesium Hydroxide (Milk Of Magnesia 30 Ml Oral.Susp) 30 ml PO DAILY PRN PRN Reason: Constipation Melatonin (Melatonin 3 Mg Tablet) 6 mg PO BEDTIME PRN PRN Reason: Insomnia Metoprolol Succinate (Metoprolol Succinate Er 25 Mg Tab.Er.24h) 25 mg PO DAILY [facility]; Protocol Last Admin: 08/17/25 09:41 Dose: 25 mg Documented By: RITA Ondansetron HCl (Ondansetron Hcl 4 Mg/2 Ml Vial) 4 mg IVPUSH Q8H PRN PRN Reason: Nausea and Vomiting Last Admin: 08/17/25 09:43 Dose: 4 mg Documented By: RITA Pantoprazole Sodium (Pantoprazole Sodium 40 Mg/10 Ml Vial) 40 mg IVPUSH BID@0630,1630 [facility] Last Admin: 08/17/25 06:03 Dose: 40 mg Documented By: JENNIE Sodium Chloride (0.9 % Sodium Chloride Flush 3 Ml Syringe) 3 ml IVFLUSH [facility] Last Admin: 08/17/25 09:48 Dose: 3 ml Documented By: RITA Labs 08/15/25 03:44 08/16/25 08:49 Labs: Laboratory Results - last 24 hr 08/16/25 08/16/25 08/16/25 11:02 16:18 20:35 POC Glucose 221 H 185 H 146 H 08/17/25 07:25 POC Glucose 124 H Microbiology Microbiology Results: Microbiology 08/14/25 08:54 Blood Culture - Preliminary Blood - Venous No growth after 48 hours. 08/14/25 08:44 Blood Culture - Preliminary Blood - Venous No growth after 48 hours. Assessment and Plan (1) Elevated troponin: Status: Acute Plan 64-year-old male with a past medical history of multiple prior abdominal surgeries, hypertension, diabetes mellitus, and ischemic bowels on Xarelto, who presented to the emergency department with abdominal pain and vomiting for the past three days. NSTEMI Likely Type 2 from overall ischemia and HTN urgency No EKG changes to suggest ACS Keep on Tele Echo EF 50-55%, no significant RWMA Cardiology following fully anticoagulated on Lovenox, 72hrs tonight Chronic Mesenteric ischema, acute Ischemic colitis vs gastritis CT scan showing Equivocal hypoperfusion of the right and middle distal colonic branches of the SMA. Can not exclude mild colitis. among other findings conservative measures with IVF, pain control and bowel rest continue Ceftriaxone and Flagyl Lovenox 40 mg SC for now Vascular surgery consultation> baseline chronic ischemia, mainstay statin, anticoagulation, avoid hypotension Gen surg consultation>no surgical intervention GI to assess for need for scope clear diet Lactic acidosis, acute secondary to ischemia Treated with IV fluids Uncontrolled HTN with hypertensive urgency continue metoprolol and Imdur Hold Losartan for now to avoid hypotension Insulin-dependent diabetes with hyperglycemia sliding scale insulin per standard protocol Lantus 10 units bedtime CAD Continue Metoprolol, aspirin, Imdur, Hold ezetimibe Paroxysmal AFib metoprolol hold Xarelto, continue Lovenox full dose for now Diabetic neuropathy gabapentin Class 3 obesity weight loss encouraged Full code DVT prophylaxis with lovenox therapeutic dose Quality Stroke Does the patient have a stroke diagnosis?: No VTE Prior VTE?: No VTE Risk Level:: Medical - moderate - high VTE Device Contraindication: Treatment Not Indicated VTE Drug Contraindication: N/A - Med Ordered
[2025-08-17 12:00] VITALS: BP 125/60; PULSE 72; RESP 20; TEMP 36.6; O2SAT 95
--- NOTE | 2025-08-17 12:03 | PM.CNGS ---
History of Present Illness Consult details Consult date: 08/17/25 Narrative: This is a 64-year-old gentleman well known to me. He had presented a proximally month ago with concerns of ischemic colitis. He has a prior history of diabetes and coronary artery disease and presented the hospital on 07/20/2025. He had a CAT scan at that time which was concerning for ischemic colitis of the ascending colon. He appears to be doing relatively well from that point and about a day ago appeared to have significantly worse pain where he had nausea and emesis this past morning. He subsequently underwent repeat CAT scan. At the time of my exam this morning he appeared to be doing relatively better. His nausea and vomiting appeared to have improved and at the current time was resting comfortably in bed. Review of Systems Review of Systems: Yes all other systems are reviewed and are negative Constitutional: Constitutional: Reports no additional constitutional complaints ENT: Reports Normal hearing present Cardiovascular: Cardiovascular: Denies chest pain, Denies chest pain at rest, Denies chest pain with activity and Denies pedal edema Respiratory: Respiratory: Denies cough Gastrointestinal: Gastrointestinal: Denies abdominal pain Musculoskeletal: Musculoskeletal: Denies abnormal gait, Denies muscle cramps and Denies radiating pain into limb Integumentary/Breasts: Skin/Breast: Denies skin ulcer and Denies wounds Neurologic: Reports Normal hearing present and Denies abnormal gait Psychiatric: Psychiatric: Reports no additional psychiatric complaints PMFSH Past Medical History Medical History Hypertensive urgency Abdominal pain PVD (peripheral vascular disease) Gastroparesis DKA (diabetic ketoacidosis) Obesity (BMI 30-39.9) PAD (peripheral artery disease) Afib Amputation of left great toe Lower limb amputation, great toe CAD (coronary artery disease) DMII (diabetes mellitus, type 2) Orthopedic hardware present Hyperglycemia Cellulitis Asthma Diabetes Hypertension FHx: bilateral hip replacements Family History Family History Father Cancer of neck Mother Uterus cancer Other No family history of coronary artery disease Surgical History Surgical History History of amputation of toe (07/29/22) History of amputation of great toe (01/07/22) History of back surgery History of neck surgery History of ankle surgery H/O bilateral hip replacements S/P quadruple vessel bypass Social History Social History Household Members: Spouse and Children Household Members Other:: 3 Housing: Condominium Are you a primary career technology teacher to a significant other at home: No Do you presently have visiting nurse or other home services: No Alcohol intake: never Comment: refused bed or chair alarm Patient Tobacco Use Status: Former Tobacco user Tobacco use type: Cigarette e-Cigarette/Vaping Use: Never Used Second Hand Smoke Exposure: No Substance Use Type: Marijuana Advance Directives Date on File: 07/20/25 service: No Current occupational status: disabled Meds Allergies Allergy/AdvReac Type Severity Reaction Status Date / Time morphine AdvReac Intermediate Hallucinati Verified 08/14/25 06:26 ons Active Medications: Current Medications Acetaminophen (Acetaminophen 325 Mg Tablet) 650 mg PO Q6H PRN PRN Reason: Pain, Mild 1-3,fever,headache Aspirin (Aspirin Enteric Coated 81 Mg Tablet.Dr) 81 mg PO DAILY [facility] Last Admin: 08/17/25 09:41 Dose: 81 mg Calcium Carbonate (Calcium Carbonate 750 Mg Tab.Chew) 750 mg PO Q4H PRN PRN Reason: Heartburn Ceftriaxone Sodium (Ceftriaxone Sodium 1 Gm Vial) 1 gm IVPUSH Q24H [facility] Last Admin: 08/17/25 09:41 Dose: 1 gm Enoxaparin Sodium (Enoxaparin Sodium 120 Mg/0.8 Ml Syringe) 110 mg SUBCUT Q12H [facility] Last Admin: 08/17/25 06:04 Dose: 110 mg Gabapentin (Gabapentin 300 Mg Capsule) 300 mg PO TID [facility] Last Admin: 08/17/25 09:41 Dose: 300 mg Hydromorphone HCl (Hydromorphone Hcl 0.5 Mg/0.5 Ml Syringe) 0.5 mg IVPUSH Q4H PRN; Protocol PRN Reason: Pain, Severe (Pain Scale 7-10) Last Admin: 08/17/25 09:47 Dose: 0.5 mg Metronidazole (Flagyl) 500 mg in 100 mls @ 100 mls/hr IV Q12H [facility] Last Infusion: 08/17/25 05:58 Dose: Infused Insulin Glargine (Insulin Glargine,Hum.Rec.Anlog 100 Unit/Ml 10 Ml Vial) 10 unit SUBCUT BEDTIME [facility] Last Admin: 08/16/25 22:34 Dose: Not Given Insulin Human Lispro (Insulin Lispro 100 Unit/Ml 3 Ml Vial) 0 unit SUBCUT QIDACHS [facility]; Protocol Last Admin: 08/17/25 07:40 Dose: Not Given Isosorbide Mononitrate (Isosorbide Mononitrate 30 Mg Tab.Er.24h) 30 mg PO DAILY [facility]; Protocol Last Admin: 08/17/25 09:41 Dose: 30 mg Magnesium Hydroxide (Milk Of Magnesia 30 Ml Oral.Susp) 30 ml PO DAILY PRN PRN Reason: Constipation Melatonin (Melatonin 3 Mg Tablet) 6 mg PO BEDTIME PRN PRN Reason: Insomnia Metoprolol Succinate (Metoprolol Succinate Er 25 Mg Tab.Er.24h) 25 mg PO DAILY [facility]; Protocol Last Admin: 08/17/25 09:41 Dose: 25 mg Ondansetron HCl (Ondansetron Hcl 4 Mg/2 Ml Vial) 4 mg IVPUSH Q8H PRN PRN Reason: Nausea and Vomiting Last Admin: 08/17/25 09:43 Dose: 4 mg Pantoprazole Sodium (Pantoprazole Sodium 40 Mg/10 Ml Vial) 40 mg IVPUSH BID@0630,1630 [facility] Last Admin: 08/17/25 06:03 Dose: 40 mg Sodium Chloride (0.9 % Sodium Chloride Flush 3 Ml Syringe) 3 ml [facility] Last Admin: 08/17/25 09:48 Dose: 3 ml Home Medications ?Medication ?Instructions ?Recorded ?Confirmed ?Last Taken ?Type ezetimibe 10 mg tablet 10 mg PO BEDTIME 01/03/22 08/14/25 07/17/25 History gabapentin 300 mg capsule 300 mg PO TID 01/03/22 08/14/25 07/17/25 History insulin glargine 100 unit/mL 10 unit subcut BEDTIME 01/03/22 08/14/25 07/17/25 History subcutaneous solution (Lantus U-100 Insulin) isosorbide mononitrate 30 mg 30 mg PO DAILY 01/03/22 08/14/25 07/17/25 History tablet,extended release 24 hr loratadine 10 mg tablet 10 mg PO DAILY 01/03/22 08/14/25 07/17/25 History losartan 25 mg tablet 25 mg PO DAILY 01/03/22 08/14/25 07/17/25 History meclizine 25 mg tablet 25 mg PO TID PRN Dizziness Or 01/03/22 08/14/25 05/23/25 History Vertigo rosuvastatin 40 mg tablet 40 mg PO BEDTIME 01/03/22 08/14/25 07/17/25 History aspirin 81 mg tablet,delayed 81 mg PO DAILY 08/04/22 08/14/25 07/17/25 History release furosemide 20 mg tablet 20 mg PO DAILY 11/13/22 08/14/25 07/17/25 History metoprolol succinate 25 mg 25 mg PO DAILY 10/14/24 08/14/25 07/17/25 History tablet,extended release 24 hr insulin lispro 100 unit/mL See Protocol subcut QIDACHS 12/16/24 08/14/25 07/17/25 History subcutaneous solution rivaroxaban 20 mg tablet (Xarelto) 20 mg PO DAILY@1700 12/16/24 08/14/25 07/17/25 History insulin glargine 100 unit/mL 8 unit subcut DAILY 03/23/25 08/14/25 07/17/25 History subcutaneous solution (Lantus U-100 Insulin) glucagon 1 mg/0.2 mL subcutaneous 1 mg subcut ONCE PRN Hypoglycemia 05/26/25 08/14/25 Unknown History auto-injector (Gvoke HypoPen 2-Pack) pantoprazole 40 mg tablet,delayed 40 mg PO BID@0630,1630 05/26/25 08/14/25 07/17/25 History release ondansetron 4 mg disintegrating 4 mg PO Q8H PRN Nausea And Vomiting 07/19/25 08/14/25 Unknown History tablet venlafaxine 100 mg tablet 100 mg PO BID 08/14/25 08/14/25 Unknown History Physical Exam Vital Signs: Vital Signs: Last Vital Signs Temp 98.1 F 08/17/25 08:00 Pulse 67 08/17/25 08:00 Resp 16 08/17/25 08:00 BP 155/77 H 08/17/25 08:00 Pulse Ox 96 08/17/25 08:00 O2 Del Method Room Air 08/17/25 08:00 BMI result Body Mass Index 34.9 Const: General: cooperative, healthy appearing and comfortable Orientation/consciousness: oriented to person, oriented to place and oriented to time HEENT: Head: Yes normal to inspection Neck: Neck: Yes normal visual inspection Carotids: no bruits Chest: Chest palpation & inspection: normal inspection of the chest Resp: Effort & Inspection: normal respiratory effort and able to speak in complete sentences Auscultation: clear to auscultation bilaterally, no crackles, no rales, no rhonchi and no wheezes Cardio: Rate: regular rate Rhythm: regular rhythm Heart sounds: S1 normal heart sound present and S2 normal heart sound present Bruits: no carotid bruits Peripheral pulses: Peripheral pulses 2+ throughout GI: Other: Abdomen soft nontender. No rebound no guarding Inspection: Yes normal to inspection Skin: Wounds: no wounds Hair: normal Neuro: General: oriented to person, oriented to place and oriented to time Cranial nerves: Yes CN's II-XII intact bilaterally and Yes Normal hearing present Cognition (Neuro): normal cognition Motor exam (neuro): 5/5 motor strength present throughout Extrem: Other: venous exam: No significant superficial varicosities or spider telangiectasias, minimal edema General: No clubbing, No cyanosis and No edema Psych: Appearance: grossly normal Mental Status: mental status grossly normal Speech and movement: Normal speech and movement present Results Labs 08/15/25 03:44 08/16/25 08:49 Labs: Abnormal lab results 08/16/25 08/16/25 08/17/25 Range/Units 16:18 20:35 07:25 POC Glucose 185 H 146 H 124 H (60-115) mg/dL Urine 08/14/25 Range/Units 11:06 Urine Color Yellow Urine Appearance Clear Urine pH 6.0 (5.0-9.0) Ur Specific [place] >= 1.030 H (1.005-1.025) Urine Protein 30 (1+) H (Neg-Trace) mg/dL Urine Glucose (UA) >=1000 H (Negative) mg/dL All other labs normal. Imaging Additional studies: Lots of motion artifact on repeat CAT scan done 08/14/2025. Celiac and FRANKIE appeared to be patent. SMA may have occlusive thrombus distally. But in general appears to be circulating his mesenteric vessels fairly well. Written report and images were reviewed. Assessment and Plan (1) Ischemic bowel disease: Status: Acute Plan At the current time his vascular supply appears to be doing relatively well. Would continue current medical management. May benefit from repeat evaluation from the GI team. Patient will follow up with us on an as-needed basis. Thank you for allowing us to assist in his care. Procedures Date of Service Date of Service: 08/17/25
[2025-08-17 12:05] LABS: Glucose, Whole Blood 173 mg/dL (60-115)
--- NOTE | 2025-08-17 13:44 | P.PNCA_ITS ---
Subjective Subjective Date of Service: 08/17/25 Principal diagnosis: NSTEMI, bowel ischemia Interval history: Patient is not having anymore chest pain. Says belly pain has improved. Less nausea. Echocardiogram did not show any significant wall motion abnormality. Review of Systems Constitutional: Reports no additional constitutional complaints Cardiovascular: Reports no additional cardiovascular complaints Respiratory: Reports no additional respiratory complaints Gastrointestinal: Reports abdominal pain Musculoskeletal: Reports no additional musculoskeletal complaints Reports system reviewed and no additional complaints, except as documented Physical Exam Vital Signs: Last Vital Signs Temp 97.9 F 08/17/25 12:00 Pulse 72 08/17/25 12:00 Resp 20 08/17/25 12:00 BP 125/60 08/17/25 12:00 Pulse Ox 95 08/17/25 12:00 O2 Del Method Room Air 08/17/25 12:00 BMI result Body Mass Index 34.9 Const General: cooperative, comfortable, no acute distress, alert and awake Nutritional Appearance: obese Orientation/consciousness: patient oriented x3 Limitations: no limitations HEENT Head: Yes normocephalic and Yes atraumatic Neck Neck: Yes trachea midline, Yes supple and Yes no JVD Resp Effort & Inspection: normal respiratory effort Auscultation: clear to auscultation bilaterally Cardio Jugular venous distension: no JVD Palpation: normal PMI Rate: regular rate Rhythm: regular rhythm Heart sounds: S1 normal heart sound present, S2 normal heart sound present, no click, no gallops and no murmurs GI Inspection: Yes other (Tenderness to touch in the epigastric area) Auscultation: normal bowel sounds Skin General skin exam: no rashes or lesions noted Neuro General: patient oriented x3 and no focal motor deficits Extrem General: Yes no clubbing, cyanosis or edema Objective Labs and Meds 08/15/25 03:44 08/16/25 08:49 Lab results: Laboratory Results - last 24 hr 08/16/25 08/16/25 08/17/25 16:18 20:35 07:25 POC Glucose 185 H 146 H 124 H 08/17/25 12:00 POC Glucose 173 H Progress Note: A&P Assessment and plan (1) NSTEMI (non-ST elevated myocardial infarction): Status: Acute Assessment and Plan: NSTEMI in this middle-aged man most likely related to acute surgical/medical illness. He has no chest pain and no EKG changes. Echocardiogram does not show any major wall motion abnormality. Management will be medical. I would suggest to use low-dose aspirin therapy in addition to his oral anticoagulation therapy. He is not currently on statin therapy in highly suggest him to be high- intensity statin therapy such as atorvastatin 80 mg daily. Also increase metoprolol and add amlodipine 5 mg daily to his regimen for both blood pressure control and as anti ischemic therapy and discontinue isosorbide therapy. Will need outpatient ischemic workup to evaluate for graft patency patient with remote coronary artery bypass grafting 10 years ago. This was discussed with him. He understands agrees. For now continue management from surgical/medical perspective. Can switch to oral anticoagulation therapy from Lovenox therapy from cardiac perspective. Will sign of the case and follow as outpatient. Thank you for allowing me to partake in his care Time Spent With Patient Time: Total time managing care of this patient today ____ minutes. Progress Note: Quality Stroke Does the patient have a stroke diagnosis?: No Procedures Date of Service Date of Service: 08/17/25
--- NOTE | 2025-08-17 14:06 | P.PNGI_ITS ---
Subjective Subjective Date of Service: 08/17/25 Interval History: Seen at bedside. Appears unwell. Reports taking a few sips of clear liquids for lunch that prompted increased lower abdominal pain with nausea. Critical Care Time (minutes): 0 Physical Exam 2 Exam: Exam: Elderly gent Appears unwell Abdomen soft, very tender to light palpation, nondistended Vital Signs: Vital Signs: Last Vital Signs Temp 97.9 F 08/17/25 12:00 Pulse 72 08/17/25 12:00 Resp 20 08/17/25 12:00 BP 125/60 08/17/25 12:00 Pulse Ox 95 08/17/25 12:00 O2 Del Method Room Air 08/17/25 12:00 BMI result Body Mass Index 34.9 Objective Data Labs 08/15/25 03:44 08/16/25 08:49 Labs: Laboratory Results - last 24 hr 08/16/25 08/16/25 08/17/25 16:18 20:35 07:25 POC Glucose 185 H 146 H 124 H 08/17/25 12:00 POC Glucose 173 H Microbiology Microbiology Results: Microbiology 08/14/25 08:54 Blood - Venous Blood Culture - Preliminary No growth after 48 hours. 08/14/25 08:44 Blood - Venous Blood Culture - Preliminary No growth after 48 hours. Procedures Date of Service Date of Service: 08/17/25 Progress Note: A&P Assessment and plan (1) Abdominal pain: Status: Acute (2) Ischemic bowel disease: Status: Acute Plan Interval worsening of abdominal exam on assessment today. Would recommend reimaging with CT abdomen pelvis with IV contrast to rule out worsening colon ischemia Keep NPO for now until CT done. If CT with unchanged findings, diet can be resumed. Time Spent With Patient Time: Total time managing care of this patient today ____ minutes. Quality Stroke Does the patient have a stroke diagnosis?: No VTE Prior VTE?: No VTE Risk Level:: Medical - moderate - high VTE Device Contraindication: Treatment Not Indicated VTE Drug Contraindication: N/A - Med Ordered
[2025-08-17 15:38] LABS: Glucose, Whole Blood 211 mg/dL (60-115)
[2025-08-17 15:46] VITALS: BP 137/69; PULSE 83; RESP 18; TEMP 36.8; O2SAT 94
[2025-08-17 19:41] VITALS: BP 122/57; PULSE 83; RESP 18; TEMP 36.2; O2SAT 95
[2025-08-17 20:09] LABS: Glucose, Whole Blood 173 mg/dL (60-115)
[2025-08-17] MEDS: Insulin Glargine,Hum.rec.anlog 100 UNIT/ML 10 ML VIAL 10 UNIT SUBCUT (21:49)
[2025-08-17] MEDS: iohexoL 350 MG/ML 100 ML INFUS..BTL 85 ML IV (23:36)
[2025-08-17 23:41] VITALS: BP 137/72; PULSE 72; RESP 18; TEMP 36.6; O2SAT 98
[2025-08-18 04:00] VITALS: BP 159/75; PULSE 73; RESP 18; TEMP 36.4; O2SAT 97
[2025-08-18] MEDS: metroNIDAZOLE/NS 500 MG/100 ML PIGGYBACK 100 MG IV ×2 (04:46→16:35)
--- NOTE | 2025-08-18 07:40 | P.PNGS_ITS ---
Subjective Subjective Date of Service: 08/18/25 <Clive Seo PA-C - Last Filed: 08/18/25 09:03> 08/18/25 <Derrick Perkins MD - Last Filed: 08/18/25 09:23> Interval history: Actually feels better today. Pain overall improving. Nausea also improving. Tried some clear liquid diet yesterday, tolerated this well without recurrence of symptoms. <Clive Seo PA-C - Last Filed: 08/18/25 09:03> Physical Exam 2 Vital Signs: Vital Signs: Last Vital Signs Temp 97.5 F 08/18/25 04:00 Pulse 73 08/18/25 04:00 Resp 18 08/18/25 04:00 BP 159/75 H 08/18/25 04:00 Pulse Ox 97 08/18/25 04:00 O2 Del Method Room Air 08/18/25 04:00 BMI result Body Mass Index 34.9 <Clive Seo PA-C - Last Filed: 08/18/25 09:03> Const: General: comfortable and no acute distress <Clive Seo PA-C - Last Filed: 08/18/25 09:03> Orientation/consciousness: patient oriented x3 <Clive Seo PA-C - Last Filed: 08/18/25 09:03> Resp: Effort & Inspection: normal respiratory effort and able to speak in complete sentences <Clive Seo PA-C - Last Filed: 08/18/25 09:03> GI: Inspection: No distended <Clive Seo PA-C - Last Filed: 08/18/25 09:03> Palpation (GI): Soft to palpation and Tenderness to palpation present (GI) (Mildly tender epigastric area) <Clive Seo PA-C - Last Filed: 08/18/25 09:03> Percussion: Yes normal to percussion <FELICIA Blackman Last Filed: 08/18/25 09:03> Neuro: General: patient oriented x3 <FELICIA Blackman Last Filed: 08/18/25 09:03> Objective Data Active Medications Acetaminophen (Acetaminophen 325 Mg Tablet) 650 mg PO Q6H PRN PRN Reason: Pain, Mild 1-3,fever,headache Amlodipine Besylate (Amlodipine Besylate 5 Mg Tablet) 5 mg PO DAILY [facility]; Protocol Last Admin: 08/17/25 14:08 Dose: 5 mg Documented By: RITA Aspirin (Aspirin Enteric Coated 81 Mg Tablet.Dr) 81 mg PO DAILY [facility] Last Admin: 08/17/25 09:41 Dose: 81 mg Documented By: RITA Atorvastatin Calcium (Atorvastatin Calcium 80 Mg Tablet) 80 mg PO BEDTIME [facility] Last Admin: 08/17/25 21:56 Dose: 80 mg Documented By: TOMMY Calcium Carbonate (Calcium Carbonate 750 Mg Tab.Chew) 750 mg PO Q4H PRN PRN Reason: Heartburn Ceftriaxone Sodium (Ceftriaxone Sodium 1 Gm Vial) 1 gm IVPUSH Q24H [facility] Last Admin: 08/17/25 09:41 Dose: 1 gm Documented By: RITA Gabapentin (Gabapentin 300 Mg Capsule) 300 mg PO TID [facility] Last Admin: 08/17/25 21:56 Dose: 300 mg Documented By: TOMMY Hydromorphone HCl (Hydromorphone Hcl 0.5 Mg/0.5 Ml Syringe) 0.5 mg IVPUSH Q4H PRN; Protocol PRN Reason: Pain, Severe (Pain Scale 7-10) Last Admin: 08/18/25 04:46 Dose: 0.5 mg Documented By: TOMMY Metronidazole (Flagyl) 500 mg in 100 mls @ 100 mls/hr IV Q12H [facility] Last Infusion: 08/18/25 06:27 Dose: Infused Documented By: TOMMY Insulin Glargine (Insulin Glargine,Hum.Rec.Anlog 100 Unit/Ml 10 Ml Vial) 10 unit SUBCUT BEDTIME [facility] Last Admin: 08/17/25 21:49 Dose: 10 unit Documented By: TOMMY Insulin Human Lispro (Insulin Lispro 100 Unit/Ml 3 Ml Vial) 0 unit SUBCUT QIDACHS [facility]; Protocol Last Admin: 08/17/25 21:48 Dose: 2 unit Documented By: TOMMY Magnesium Hydroxide (Milk Of Magnesia 30 Ml Oral.Susp) 30 ml PO DAILY PRN PRN Reason: Constipation Melatonin (Melatonin 3 Mg Tablet) 6 mg PO BEDTIME PRN PRN Reason: Insomnia Metoprolol Succinate (Metoprolol Succinate Er 50 Mg Tab.Er.24h) 50 mg PO DAILY [facility]; Protocol Ondansetron HCl (Ondansetron Hcl 4 Mg/2 Ml Vial) 4 mg IVPUSH Q6H PRN PRN Reason: Nausea and Vomiting Last Admin: 08/18/25 03:52 Dose: 4 mg Documented By: TOMMY Rivaroxaban (Rivaroxaban 20 Mg Tablet) 20 mg PO DAILY [facility] Sodium Chloride (0.9 % Sodium Chloride Flush 3 Ml Syringe) 3 ml IVFLUSH QSHIFT [facility] Last Admin: 08/17/25 21:59 Dose: 3 ml Documented By: TOMMY <Clive Seo PA-C - Last Filed: 08/18/25 09:03> Labs CBC & Chem 7: 08/18/25 08:35 08/18/25 08:35 <Clive Seo PA-C - Last Filed: 08/18/25 09:03> Labs: Laboratory Results - last 24 hr 08/17/25 08/17/25 08/17/25 12:00 15:34 20:01 POC Glucose 173 H 211 H 173 H <Clive Seo PA-C - Last Filed: 08/18/25 09:03> Procedures Date of Service Date of Service: 08/18/25 <Clive Seo PA-C - Last Filed: 08/18/25 09:03> 08/18/25 <Derrick Perkins MD - Last Filed: 08/18/25 09:23> Progress Note: A&P Assessment and plan (1) Ischemic bowel disease: Status: Acute <Clive Seo PA-C - Last Filed: 08/18/25 09:03> Assessment and Plan: Says abdominal pain is better Passing flatus Abdomen remained soft, benign, no guarding, no rebound Clinically looks well Okay to advance to full liquids today Seen and examined independently <Derrick Perkins MD - Last Filed: 08/18/25 09:23> Assessment and Plan: 64 year old male history of hypertension, gastroparesis, class 1 obesity, CAD, paroxysmal AFib, insulin-dependent diabetes and diabetic neuropathy, admitted for abdominal pain, likely ischemic colitis. He reports some improvement today in his abdominal pain. Also improvement in nausea. Diet was advanced yesterday, initially had some increased nausea when starting this but this has now improved actually. He is anticoagulated, no EKG changes. Abdomen is soft and benign mild tenderness in the epigastric area. Currently treating conservatively with bowel rest, IVF. No surgical intervention planned at this time. Will continue to follow. Continue clear liquid diet for now, possibly advanced to full liquid or regular this afternoon. antiemetics as needed pain control Encouraged ambulation as tolerated <Clive Seo PA-C - Last Filed: 08/18/25 09:03> Time Spent With Patient Time: Total time managing care of this patient today ____ minutes. <Clive Seo PA-C - Last Filed: 08/18/25 09:03> Quality Stroke Does the patient have a stroke diagnosis?: No <Clive Seo PA-C - Last Filed: 08/18/25 09:03> VTE Prior VTE?: No <Clive Seo PA-C - Last Filed: 08/18/25 09:03> VTE Risk Level:: Medical - moderate - high <Clive Seo PA-C - Last Filed: 08/18/25 09:03> VTE Device Contraindication: Treatment Not Indicated <Clive Seo PA-C - Last Filed: 08/18/25 09:03> VTE Drug Contraindication: N/A - Med Ordered <FELICIA Blackman Last Filed: 08/18/25 09:03>
[2025-08-18 07:52] LABS: Glucose, Whole Blood 165 mg/dL (60-115)
[2025-08-18 08:00] VITALS: BP 135/70; PULSE 72; RESP 18; TEMP 36.8; O2SAT 95
[2025-08-18] MEDS: Aspirin Enteric Coated 81 MG TABLET.DR PO (08:26)
[2025-08-18] MEDS: Metoprolol Succinate ER 50 MG TAB.ER.24H PO (08:27)
[2025-08-18] MEDS: 0.9 % Sodium Chloride Flush 3 ML SYRINGE IVFLUSH ×2 (08:29→17:14)
[2025-08-18 08:43] LABS: Hematocrit 38.1 % (42.0-52.0); Hemoglobin 12.3 g/dl (14.0-18.0); Mean Corpuscular HGB Conc 32.3 g/dl (31.0-36.0); Mean Corpuscular Hemoglobin 28.7 pg (27.0-33.0); Mean Corpuscular Volume 89.0 fL (80.0-98.0); NRBC Abs Auto 0.000 X10*3/uL (0.0-0.012); NRBC Pct Auto 0.0 /100WBC (0.0-0.2); Platelet Count 182 X10*3/uL (160-400); Red Blood Count 4.28 X10*6/uL (4.60-5.80); White Blood Count 6.3 X10*3/uL (4.8-10.8)
[2025-08-18 08:58] LABS: Anion Gap 13 (12-20); Blood Urea Nitrogen 7 mg/dL (9-16); Calcium 8.4 mg/dL (8.4-10.2); Carbon Dioxide 22 mmol/L (22-29); Chloride 108 mmol/L (96-108); Creatinine Clr Calc Pharmacy 153.1; Estimated Glomerular Filt Rate > 60; Potassium 3.4 mmol/L (3.3-5.1); Sodium 140 mmol/L (135-145)
[2025-08-18 11:39] LABS: Glucose, Whole Blood 196 mg/dL (60-115)
[2025-08-18 11:48] VITALS: BP 142/67; PULSE 66; RESP 18; TEMP 36.9; O2SAT 96
--- NOTE | 2025-08-18 13:04 | HO.PM.IMPN ---
Subjective Subjective Date of Service: 08/18/25 Interval History: Seen and examined this morning Follow-up for NSTEMI, abdominal pain Patient reports ongoing abdominal pain after eating Review of Systems Review of Systems: Yes all other systems are reviewed and are negative Constitutional Constitutional: Denies chills and Denies fever(s) Cardiovascular Cardiovascular: Denies chest pain and Denies palpitations Gastrointestinal Gastrointestinal: Reports abdominal pain, Denies diarrhea, Reports nausea and Denies vomiting Endocrine Endocrine: Denies palpitations Physical Exam Vital Signs: Vital Signs: Last Vital Signs Temp 98.4 F 08/18/25 11:48 Pulse 66 08/18/25 11:48 Resp 18 08/18/25 11:48 BP 142/67 H 08/18/25 11:48 Pulse Ox 96 08/18/25 11:48 O2 Del Method Room Air 08/18/25 11:48 BMI result Body Mass Index 34.9 Const: General: cooperative, comfortable, alert and awake Nutritional Appearance: obese Orientation/consciousness: patient oriented x3 Resp: Effort & Inspection: normal respiratory effort, able to speak in complete sentences, no respiratory distress and no use of accessory muscles Cardio: Rate: regular rate GI: Other: Epigastric tenderness Inspection: No distended Palpation (GI): Soft to palpation Neuro: Other: Grossly nonfocal General: patient oriented x3 Objective Data Active Medications Acetaminophen (Acetaminophen 325 Mg Tablet) 650 mg PO Q6H PRN PRN Reason: Pain, Mild 1-3,fever,headache Amlodipine Besylate (Amlodipine Besylate 5 Mg Tablet) 5 mg PO DAILY [facility]; Protocol Last Admin: 08/18/25 08:25 Dose: 5 mg Documented By: RITA Aspirin (Aspirin Enteric Coated 81 Mg Tablet.Dr) 81 mg PO DAILY [facility] Last Admin: 08/18/25 08:26 Dose: 81 mg Documented By: RITA Atorvastatin Calcium (Atorvastatin Calcium 80 Mg Tablet) 80 mg PO BEDTIME [facility] Last Admin: 08/17/25 21:56 Dose: 80 mg Documented By: TOMMY Calcium Carbonate (Calcium Carbonate 750 Mg Tab.Chew) 750 mg PO Q4H PRN PRN Reason: Heartburn Ceftriaxone Sodium (Ceftriaxone Sodium 1 Gm Vial) 1 gm IVPUSH Q24H [facility] Last Admin: 08/18/25 08:30 Dose: 1 gm Documented By: RITA Gabapentin (Gabapentin 300 Mg Capsule) 300 mg PO TID [facility] Last Admin: 08/18/25 08:25 Dose: 300 mg Documented By: RITA Hydromorphone HCl (Hydromorphone Hcl 0.5 Mg/0.5 Ml Syringe) 0.5 mg IVPUSH Q4H PRN; Protocol PRN Reason: Pain, Severe (Pain Scale 7-10) Last Admin: 08/18/25 08:25 Dose: 0.5 mg Documented By: RITA Metronidazole (Flagyl) 500 mg in 100 mls @ 100 mls/hr IV Q12H [facility] Last Infusion: 08/18/25 06:27 Dose: Infused Documented By: TOMMY Insulin Glargine (Insulin Glargine,Hum.Rec.Anlog 100 Unit/Ml 10 Ml Vial) 10 unit SUBCUT BEDTIME [facility] Last Admin: 08/17/25 21:49 Dose: 10 unit Documented By: TOMMY Insulin Human Lispro (Insulin Lispro 100 Unit/Ml 3 Ml Vial) 0 unit SUBCUT QIDACHS [facility]; Protocol Last Admin: 08/18/25 12:18 Dose: 2 unit Documented By: RITA Magnesium Hydroxide (Milk Of Magnesia 30 Ml Oral.Susp) 30 ml PO DAILY PRN PRN Reason: Constipation Melatonin (Melatonin 3 Mg Tablet) 6 mg PO BEDTIME PRN PRN Reason: Insomnia Metoprolol Succinate (Metoprolol Succinate Er 50 Mg Tab.Er.24h) 50 mg PO DAILY [facility]; Protocol Last Admin: 08/18/25 08:27 Dose: 50 mg Documented By: RITA Ondansetron HCl (Ondansetron Hcl 4 Mg/2 Ml Vial) 4 mg IVPUSH Q6H PRN PRN Reason: Nausea and Vomiting Last Admin: 08/18/25 08:25 Dose: 4 mg Documented By: RITA Pantoprazole Sodium (Pantoprazole Sodium 40 Mg/10 Ml Vial) 40 mg IVPUSH DAILY@0630 [facility] Last Admin: 08/18/25 11:20 Dose: 40 mg Documented By: RITA Rivaroxaban (Rivaroxaban 20 Mg Tablet) 20 mg PO DAILY [facility] On Hold: 08/18/25 09:52 Last Admin: 08/18/25 08:26 Dose: 20 mg Documented By: RITA Sodium Chloride (0.9 % Sodium Chloride Flush 3 Ml Syringe) 3 ml IVFLUSH QSHIFT [facility] Last Admin: 08/18/25 08:29 Dose: 3 ml Documented By: RITA Labs 08/18/25 08:35 08/18/25 08:35 Labs: Laboratory Results - last 24 hr 08/17/25 08/17/25 08/18/25 15:34 20:01 07:26 MCV MCH MCHC RDW Plt Count MPV Absolute Nucleated RBC Nucleated RBC % (auto) Anion Gap Estim Creat Clear Calc Estimated GFR POC Glucose 211 H 173 H 165 H Random Glucose Calcium 08/18/25 08/18/25 08:35 11:13 MCV 89.0 MCH 28.7 MCHC 32.3 RDW 13.5 Plt Count 182 MPV 10.3 Absolute Nucleated RBC 0.000 Nucleated RBC % (auto) 0.0 Anion Gap 13 Estim Creat Clear Calc 153.1 Estimated GFR > 60 POC Glucose 196 H Random Glucose 165 H Calcium 8.4 Assessment and Plan (1) NSTEMI (non-ST elevated myocardial infarction): Status: Acute (2) Ischemic bowel disease: Status: Acute Plan 64-year-old male with a past medical history of multiple prior abdominal surgeries, hypertension, diabetes mellitus, and ischemic bowels on Xarelto, who presented to the emergency department with abdominal pain and vomiting for the past three days foudn to have NSTEMI NSTEMI Likely Type 2 from overall ischemia and HTN urgency No EKG changes to suggest ACS Keep on Tele Echo EF 50-55%, no significant RWMA Cardiology following fully anticoagulated on Lovenox x 72hrs tonight, transitioned back to xarelto Continue Metoprolol, aspirin imdur discontinued Hold ezetimibe Chronic Mesenteric ischema, acute Ischemic colitis vs gastritis CT scan showing Equivocal hypoperfusion of the right and middle distal colonic branches of the SMA. Can not exclude mild colitis conservative measures with IVF, pain control and bowel rest continue Ceftriaxone and Flagyl Vascular surgery consultation> baseline chronic ischemia, mainstay statin, anticoagulation, avoid hypotension Gen surg consultation>no surgical intervention GI to assess for need for scope - due to persistent abdominal pain, plan for EGD in a.m. as per GI Lactic acidosis, acute secondary to ischemia Treated with IV fluids Uncontrolled HTN with hypertensive urgency continue metoprolol and Norvasc Imdur were discontinued Insulin-dependent diabetes with hyperglycemia sliding scale insulin per standard protocol Lantus 10 units bedtime Paroxysmal AFib metoprolol resume xarelto after EGd Diabetic neuropathy gabapentin Class 3 obesity weight loss encouraged Full code DVT prophylaxis - mechanical devices, xarelto on hold for EGD Quality Stroke Does the patient have a stroke diagnosis?: No VTE Prior VTE?: No VTE Risk Level:: Medical - moderate - high VTE Device Contraindication: Treatment Not Indicated VTE Drug Contraindication: N/A - Med Ordered
--- NOTE | 2025-08-18 13:12 | HO.ANESPROP2 ---
Documented by User: Sherry Paris NP 08/18/25 13:41 HPI - Anesthesia Eval Consult details Narrative: 64 yr old male for upper endoscopy Admitted 08/14/25 for abdominal pain, vomiting, NSTEMI/elevated troponins. Seen by [facility] cardiology 08/16, 08/17: NSTEMI in this middle-aged man most likely related to acute surgical/medical illness. He has no chest pain and no EKG changes. Echocardiogram does not show any major wall motion abnormality. Management will be medical. Will need outpatient ischemic workup to evaluate for graft patency patient with remote coronary artery bypass grafting 10 years ago. *Follows with [facility] Interventional cardiology, last visit note reviewed 02/2025: reported exertional dyspnea that occurs at 25 ft of walking. Regadenoson nuclear myocardial perfusion imaging was ordered; if large ischemia plan to pursue CTA coronary - these tests have not been done. H/O CAD status post quadruple coronary artery bypass grafting 10 years ago as per him at Atrial fibrillation: on xarelto Ischemic bowel disease: see abd/pelvic CTA below [facility] Active Problems Active Problems: All Active Problems NSTEMI (non-ST elevated myocardial infarction) (Acute) Elevated troponin (Acute) Hyperglycemia due to diabetes mellitus (Acute) Acidosis, lactic (Acute) Ischemic bowel disease (Acute) Hypertensive urgency (Acute) Ischemic bowel disease (Acute) Abdominal pain (Acute) Class 3 obesity (Acute) Gastroparesis (Acute) PVC (premature ventricular contraction) (Acute) Major depressive disorder (Acute) Diabetic gastroparesis (Acute) COVID-19 (Acute) Abscess of abdominal wall (Acute) Cellulitis (Acute) Cellulitis of face (Acute) Diabetes (Acute) Cellulitis and abscess of foot (Acute) Diabetic osteomyelitis (Acute) Osteomyelitis (Acute) Past Medical History Medical History Hypertensive urgency Abdominal pain PVD (peripheral vascular disease) Gastroparesis DKA (diabetic ketoacidosis) Obesity (BMI 30-39.9) PAD (peripheral artery disease) Afib Amputation of left great toe Lower limb amputation, great toe CAD (coronary artery disease) DMII (diabetes mellitus, type 2) Orthopedic hardware present Hyperglycemia Cellulitis Asthma Diabetes Hypertension FHx: bilateral hip replacements Family History Family History Father Cancer of neck Mother Uterus cancer Other No family history of coronary artery disease Family history of problems with anesthesia: No Surgical History Surgical History History of amputation of toe (07/29/22) History of amputation of great toe (01/07/22) History of back surgery History of neck surgery History of ankle surgery H/O bilateral hip replacements S/P quadruple vessel bypass History of Problems with Anesthesia: No Social History Social History Household Members: Spouse and Children Household Members Other:: 3 Housing: Condominium Are you a primary intensive care ambulance paramedic to a significant other at home: No Do you presently have visiting nurse or other home services: No Alcohol intake: never Comment: refused bed or chair alarm Patient Tobacco Use Status: Former Tobacco user Tobacco use type: Cigarette e-Cigarette/Vaping Use: Never Used Second Hand Smoke Exposure: No Substance Use Type: Marijuana Advance Directives Date on File: 07/20/25 service: No Current occupational status: disabled Meds Allergies Allergy/AdvReac Type Severity Reaction Status Date / Time morphine AdvReac Intermediate Hallucinati Verified 08/19/25 13:58 ons Active Medications: Current Medications Acetaminophen (Acetaminophen 325 Mg Tablet) 650 mg PO Q6H PRN PRN Reason: Pain, Mild 1-3,fever,headache Amlodipine Besylate (Amlodipine Besylate 5 Mg Tablet) 5 mg PO DAILY [facility]; Protocol Last Admin: 08/18/25 08:25 Dose: 5 mg Aspirin (Aspirin Enteric Coated 81 Mg Tablet.Dr) 81 mg PO DAILY [facility] Last Admin: 08/18/25 08:26 Dose: 81 mg Atorvastatin Calcium (Atorvastatin Calcium 80 Mg Tablet) 80 mg PO BEDTIME WILLIAM Last Admin: 08/17/25 21:56 Dose: 80 mg Calcium Carbonate (Calcium Carbonate 750 Mg Tab.Chew) 750 mg PO Q4H PRN PRN Reason: Heartburn Ceftriaxone Sodium (Ceftriaxone Sodium 1 Gm Vial) 1 gm IVPUSH Q24H [facility] Last Admin: 08/18/25 08:30 Dose: 1 gm Gabapentin (Gabapentin 300 Mg Capsule) 300 mg PO TID WILLIAM Last Admin: 08/18/25 08:25 Dose: 300 mg Hydromorphone HCl (Hydromorphone Hcl 0.5 Mg/0.5 Ml Syringe) 0.5 mg IVPUSH Q4H PRN; Protocol PRN Reason: Pain, Severe (Pain Scale 7-10) Last Admin: 08/18/25 08:25 Dose: 0.5 mg Metronidazole (Flagyl) 500 mg in 100 mls @ 100 mls/hr IV Q12H [facility] Last Infusion: 08/18/25 06:27 Dose: Infused Insulin Glargine (Insulin Glargine,Hum.Rec.Anlog 100 Unit/Ml 10 Ml Vial) 10 unit SUBCUT BEDTIME [facility] Last Admin: 08/17/25 21:49 Dose: 10 unit Insulin Human Lispro (Insulin Lispro 100 Unit/Ml 3 Ml Vial) 0 unit SUBCUT QIDACHS [facility]; Protocol Last Admin: 08/18/25 12:18 Dose: 2 unit Magnesium Hydroxide (Milk Of Magnesia 30 Ml Oral.Susp) 30 ml PO DAILY PRN PRN Reason: Constipation Melatonin (Melatonin 3 Mg Tablet) 6 mg PO BEDTIME PRN PRN Reason: Insomnia Metoprolol Succinate (Metoprolol Succinate Er 50 Mg Tab.Er.24h) 50 mg PO DAILY [facility]; Protocol Last Admin: 08/18/25 08:27 Dose: 50 mg Ondansetron HCl (Ondansetron Hcl 4 Mg/2 Ml Vial) 4 mg IVPUSH Q6H PRN PRN Reason: Nausea and Vomiting Last Admin: 08/18/25 08:25 Dose: 4 mg Pantoprazole Sodium (Pantoprazole Sodium 40 Mg/10 Ml Vial) 40 mg IVPUSH DAILY@0630 [facility] Last Admin: 08/18/25 11:20 Dose: 40 mg Rivaroxaban (Rivaroxaban 20 Mg Tablet) 20 mg PO DAILY [facility] On Hold: 08/18/25 09:52 Last Admin: 08/18/25 08:26 Dose: 20 mg Sodium Chloride (0.9 % Sodium Chloride Flush 3 Ml Syringe) [facility] Admin: 08/18/25 08:29 Dose: 3 ml Home Medications ?Medication ?Instructions ?Recorded ?Confirmed ?Last Taken ?Type ezetimibe 10 mg tablet 10 mg PO BEDTIME 01/03/22 08/14/25 07/17/25 History gabapentin 300 mg capsule 300 mg PO TID 01/03/22 08/14/25 07/17/25 History insulin glargine 100 unit/mL 10 unit subcut BEDTIME 01/03/22 08/14/25 07/17/25 History subcutaneous solution (Lantus U-100 Insulin) isosorbide mononitrate 30 mg 30 mg PO DAILY 01/03/22 08/14/25 07/17/25 History tablet,extended release 24 hr loratadine 10 mg tablet 10 mg PO DAILY 01/03/22 08/14/25 07/17/25 History losartan 25 mg tablet 25 mg PO DAILY 01/03/22 08/14/25 07/17/25 History meclizine 25 mg tablet 25 mg PO TID PRN Dizziness Or 01/03/22 08/14/25 05/23/25 History Vertigo rosuvastatin 40 mg tablet 40 mg PO BEDTIME 01/03/22 08/14/25 07/17/25 History aspirin 81 mg tablet,delayed 81 mg PO DAILY 08/04/22 08/14/25 07/17/25 History release furosemide 20 mg tablet 20 mg PO DAILY 11/13/22 08/14/25 07/17/25 History metoprolol succinate 25 mg 25 mg PO DAILY 10/14/24 08/14/25 07/17/25 History tablet,extended release 24 hr insulin lispro 100 unit/mL See Protocol subcut QIDACHS 12/16/24 08/14/25 07/17/25 History subcutaneous solution rivaroxaban 20 mg tablet (Xarelto) 20 mg PO DAILY@1700 12/16/24 08/14/25 07/17/25 History insulin glargine 100 unit/mL 8 unit subcut DAILY 03/23/25 08/14/25 07/17/25 History subcutaneous solution (Lantus U-100 Insulin) glucagon 1 mg/0.2 mL subcutaneous 1 mg subcut ONCE PRN Hypoglycemia 05/26/25 08/14/25 Unknown History auto-injector (Gvoke HypoPen 2-Pack) pantoprazole 40 mg tablet,delayed 40 mg PO BID@0630,1630 05/26/25 08/14/25 07/17/25 History release ondansetron 4 mg disintegrating 4 mg PO Q8H PRN Nausea And Vomiting 07/19/25 08/14/25 Unknown History tablet venlafaxine 100 mg tablet 100 mg PO BID 08/14/25 08/14/25 Unknown History Exam Height,Weight and Vital Signs: Height 5 ft 8 in Weight 104.1 kg Last Vital Signs Temp 98.4 F 08/18/25 11:48 Pulse 66 08/18/25 11:48 Resp 18 08/18/25 11:48 BP 142/67 H 08/18/25 11:48 Pulse Ox 96 08/18/25 11:48 O2 Del Method Room Air 08/18/25 11:48 Pertinent Lab Results Pertinent Lab Results: Laboratory Tests 08/14/25 08/14/25 08/14/25 06:32 07:29 08:44 WBC 14.4 H RBC 4.96 D Hgb 14.6 D Hct 42.0 D MCV 84.7 MCH 29.4 MCHC 34.8 RDW 13.4 Plt Count 279 D MPV 10.6 Immature Gran % (Auto) 0.4 Neut % (Auto) 79.5 H Lymph % (Auto) 14.8 L [place] % (Auto) 4.6 Eos % (Auto) 0.3 Baso % (Auto) 0.4 Lymph # (Auto) 2.1 [place] # (Auto) 0.7 Eos # (Auto) 0.0 Baso # (Auto) 0.1 Abs Immat Gran (auto) 0.06 H Absolute Neuts (auto) 11.5 H Absolute Nucleated RBC 0.000 Nucleated RBC % (auto) 0.0 Smear Tech's Comments VERIFIED ESR 20 H Hold Purple Top SEE NOTE VBG pH VBG pCO2 VBG pO2 VBG HCO3 VBG O2 Saturation VBG Base Excess Sodium 137 Potassium 3.8 Chloride 107 Carbon Dioxide 14 L Anion Gap 20 BUN 8 L Creatinine 0.70 Estim Creat Clear Calc 130.2 Estimated GFR > 60 POC Glucose Random Glucose 416 H* Lactic Acid 3.3 H* Lactic Acid F/U @ 2Hr Lactic Acid F/U @ 4Hr Calcium 9.5 D Magnesium 2.0 Total Bilirubin 0.9 AST 17 ALT < 6 Alkaline Phosphatase 76 Total Creatine Kinase 39 Troponin I High Sens 5.1 C-Reactive Protein 0.23 Total Protein 6.9 Albumin 4.3 Lipase < 4 L Beta-Hydroxybutyrate 2.61 H Urine Color Urine Appearance Urine pH Ur Specific [place] Urine Protein Urine Glucose (UA) Urine Ketones Urine Blood Urine Nitrite Ur Leukocyte Esterase Urine RBC Urine WBC Ur Squamous Epith Cells Urine Bacteria Hyaline Casts Urine Opiates Screen Ur Buprenorphine Scrn Ur Oxycodone Screen Urine Methadone Screen Urine Fentanyl Screen Ur Barbiturates Screen Ur Phencyclidine Scrn Ur Amphetamines Screen U Benzodiazepines Scrn Urine Cocaine Screen U Marijuana (THC) Screen Ethyl Alcohol < 10 08/14/25 08/14/25 08/14/25 08:50 10:01 10:07 WBC RBC Hgb Hct MCV MCH MCHC RDW Plt Count MPV Immature Gran % (Auto) Neut % (Auto) Lymph % (Auto) [place] % (Auto) Eos % (Auto) Baso % (Auto) Lymph # (Auto) [place] # (Auto) Eos # (Auto) Baso # (Auto) Abs Immat Gran (auto) Absolute Neuts (auto) Absolute Nucleated RBC Nucleated RBC % (auto) Smear Tech's Comments ESR Hold Purple Top VBG pH 7.43 VBG pCO2 19 VBG pO2 110 VBG HCO3 13 L VBG O2 Saturation 100.0 VBG Base Excess -8.1 Sodium Potassium Chloride Carbon Dioxide Anion Gap BUN Creatinine Estim Creat Clear Calc Estimated GFR POC Glucose 322 H Random Glucose Lactic Acid Lactic Acid F/U @ 2Hr Lactic Acid F/U @ 4Hr Calcium Magnesium Total Bilirubin AST ALT Alkaline Phosphatase Total Creatine Kinase Troponin I High Sens 14.1 D C-Reactive Protein Total Protein Albumin Lipase Beta-Hydroxybutyrate Urine Color Urine Appearance Urine pH Ur Specific [place] Urine Protein Urine Glucose (UA) Urine Ketones Urine Blood Urine Nitrite Ur Leukocyte Esterase Urine RBC Urine WBC Ur Squamous Epith Cells Urine Bacteria Hyaline Casts Urine Opiates Screen Ur Buprenorphine Scrn Ur Oxycodone Screen Urine Methadone Screen Urine Fentanyl Screen Ur Barbiturates Screen Ur Phencyclidine Scrn Ur Amphetamines Screen U Benzodiazepines Scrn Urine Cocaine Screen U Marijuana (THC) Screen Ethyl Alcohol 08/14/25 08/14/25 08/14/25 11:06 11:39 12:59 WBC RBC Hgb Hct MCV MCH MCHC RDW Plt Count MPV Immature Gran % (Auto) Neut % (Auto) Lymph % (Auto) [place] % (Auto) Eos % (Auto) Baso % (Auto) Lymph # (Auto) [place] # (Auto) Eos # (Auto) Baso # (Auto) Abs Immat Gran (auto) Absolute Neuts (auto) Absolute Nucleated RBC Nucleated RBC % (auto) Smear Tech's Comments ESR Hold Purple Top VBG pH VBG pCO2 VBG pO2 VBG HCO3 VBG O2 Saturation VBG Base Excess Sodium Potassium Chloride Carbon Dioxide Anion Gap BUN Creatinine Estim Creat Clear Calc Estimated GFR POC Glucose 324 H Random Glucose Lactic Acid Lactic Acid F/U @ 2Hr 2.4 H* Lactic Acid F/U @ 4Hr Calcium Magnesium Total Bilirubin AST ALT Alkaline Phosphatase Total Creatine Kinase Troponin I High Sens C-Reactive Protein Total Protein Albumin Lipase Beta-Hydroxybutyrate Urine Color Yellow Urine Appearance Clear Urine pH 6.0 Ur Specific [place] >= 1.030 H Urine Protein 30 (1+) H Urine Glucose (UA) >=1000 H Urine Ketones 40 Urine Blood Negative Urine Nitrite Negative Ur Leukocyte Esterase Negative Urine RBC 0-2 Urine WBC 0-5 Ur Squamous Epith Cells 0-2 Urine Bacteria None Seen Hyaline Casts 0-2 Urine Opiates Screen Not Detected Ur Buprenorphine Scrn Not Detected Ur Oxycodone Screen Positive H Urine Methadone Screen Not Detected Urine Fentanyl Screen Not Detected Ur Barbiturates Screen Not Detected Ur Phencyclidine Scrn Not Detected Ur Amphetamines Screen Not Detected U Benzodiazepines Scrn Not Detected Urine Cocaine Screen Not Detected U Marijuana (THC) Screen POSITIVE H Ethyl Alcohol 08/14/25 08/14/25 08/14/25 13:58 14:07 20:16 WBC RBC Hgb Hct MCV MCH MCHC RDW Plt Count MPV Immature Gran % (Auto) Neut % (Auto) Lymph % (Auto) [place] % (Auto) Eos % (Auto) Baso % (Auto) Lymph # (Auto) [place] # (Auto) Eos # (Auto) Baso # (Auto) Abs Immat Gran (auto) Absolute Neuts (auto) Absolute Nucleated RBC Nucleated RBC % (auto) Smear Tech's Comments ESR Hold Purple Top VBG pH VBG pCO2 VBG pO2 VBG HCO3 VBG O2 Saturation VBG Base Excess Sodium Potassium Chloride Carbon Dioxide Anion Gap BUN Creatinine Estim Creat Clear Calc Estimated GFR POC Glucose 268 H Random Glucose Lactic Acid Lactic Acid F/U @ 2Hr Lactic Acid F/U @ 4Hr 2.4 H* Calcium Magnesium Total Bilirubin AST ALT Alkaline Phosphatase Total Creatine Kinase Troponin I High Sens 194.2 H* D C-Reactive Protein Total Protein Albumin Lipase Beta-Hydroxybutyrate Urine Color Urine Appearance Urine pH Ur Specific [place] Urine Protein Urine Glucose (UA) Urine Ketones Urine Blood Urine Nitrite Ur Leukocyte Esterase Urine RBC Urine WBC Ur Squamous Epith Cells Urine Bacteria Hyaline Casts Urine Opiates Screen Ur Buprenorphine Scrn Ur Oxycodone Screen Urine Methadone Screen Urine Fentanyl Screen Ur Barbiturates Screen Ur Phencyclidine Scrn Ur Amphetamines Screen U Benzodiazepines Scrn Urine Cocaine Screen U Marijuana (THC) Screen Ethyl Alcohol 08/15/25 08/15/25 08/15/25 03:44 07:14 12:35 WBC 11.6 H RBC 3.94 L D Hgb 11.5 L D Hct 34.1 L MCV 86.5 MCH 29.2 MCHC 33.7 RDW 14.1 Plt Count 238 MPV 10.7 Immature Gran % (Auto) 0.3 Neut % (Auto) 66.2 Lymph % (Auto) 23.3 [place] % (Auto) 9.8 Eos % (Auto) 0.1 Baso % (Auto) 0.3 Lymph # (Auto) 2.7 [place] # (Auto) 1.1 Eos # (Auto) 0.0 Baso # (Auto) 0.0 Abs Immat Gran (auto) 0.03 Absolute Neuts (auto) 7.7 Absolute Nucleated RBC 0.000 Nucleated RBC % (auto) 0.0 Smear Tech's Comments ESR Hold Purple Top VBG pH VBG pCO2 VBG pO2 VBG HCO3 VBG O2 Saturation VBG Base Excess Sodium 141 Potassium 3.7 Chloride 114 H Carbon Dioxide 17 L Anion Gap 14 BUN 8 L Creatinine 0.60 Estim Creat Clear Calc 151.9 Estimated GFR > 60 POC Glucose 233 H 212 H Random Glucose 236 H Lactic Acid Lactic Acid F/U @ 2Hr Lactic Acid F/U @ 4Hr Calcium 8.5 D Magnesium Total Bilirubin 0.6 AST 24 ALT < 6 Alkaline Phosphatase 57 Total Creatine Kinase Troponin I High Sens C-Reactive Protein Total Protein 5.8 L Albumin 3.5 Lipase Beta-Hydroxybutyrate Urine Color Urine Appearance Urine pH Ur Specific [place] Urine Protein Urine Glucose (UA) Urine Ketones Urine Blood Urine Nitrite Ur Leukocyte Esterase Urine RBC Urine WBC Ur Squamous Epith Cells Urine Bacteria Hyaline Casts Urine Opiates Screen Ur Buprenorphine Scrn Ur Oxycodone Screen Urine Methadone Screen Urine Fentanyl Screen Ur Barbiturates Screen Ur Phencyclidine Scrn Ur Amphetamines Screen U Benzodiazepines Scrn Urine Cocaine Screen U Marijuana (THC) Screen Ethyl Alcohol 08/15/25 08/15/25 08/15/25 17:50 18:58 20:53 WBC RBC Hgb Hct MCV MCH MCHC RDW Plt Count MPV Immature Gran % (Auto) Neut % (Auto) Lymph % (Auto) [place] % (Auto) Eos % (Auto) Baso % (Auto) Lymph # (Auto) [place] # (Auto) Eos # (Auto) Baso # (Auto) Abs Immat Gran (auto) Absolute Neuts (auto) Absolute Nucleated RBC Nucleated RBC % (auto) Smear Tech's Comments ESR Hold Purple Top VBG pH VBG pCO2 VBG pO2 VBG HCO3 VBG O2 Saturation VBG Base Excess Sodium Potassium Chloride Carbon Dioxide Anion Gap BUN Creatinine Estim Creat Clear Calc Estimated GFR POC Glucose 224 H 202 H Random Glucose Lactic Acid Lactic Acid F/U @ 2Hr Lactic Acid F/U @ 4Hr Calcium Magnesium Total Bilirubin AST ALT Alkaline Phosphatase Total Creatine Kinase Troponin I High Sens 1308.9 H* D C-Reactive Protein Total Protein Albumin Lipase Beta-Hydroxybutyrate Urine Color Urine Appearance Urine pH Ur Specific [place] Urine Protein Urine Glucose (UA) Urine Ketones Urine Blood Urine Nitrite Ur Leukocyte Esterase Urine RBC Urine WBC Ur Squamous Epith Cells Urine Bacteria Hyaline Casts Urine Opiates Screen Ur Buprenorphine Scrn Ur Oxycodone Screen Urine Methadone Screen Urine Fentanyl Screen Ur Barbiturates Screen Ur Phencyclidine Scrn Ur Amphetamines Screen U Benzodiazepines Scrn Urine Cocaine Screen U Marijuana (THC) Screen Ethyl Alcohol 08/16/25 08/16/25 08/16/25 07:29 08:49 11:02 WBC RBC Hgb Hct MCV MCH MCHC RDW Plt Count MPV Immature Gran % (Auto) Neut % (Auto) Lymph % (Auto) [place] % (Auto) Eos % (Auto) Baso % (Auto) Lymph # (Auto) [place] # (Auto) Eos # (Auto) Baso # (Auto) Abs Immat Gran (auto) Absolute Neuts (auto) Absolute Nucleated RBC Nucleated RBC % (auto) Smear Tech's Comments ESR Hold Purple Top VBG pH VBG pCO2 VBG pO2 VBG HCO3 VBG O2 Saturation VBG Base Excess Sodium 141 Potassium 4.1 Chloride 110 H Carbon Dioxide 23 Anion Gap 12 BUN 8 L Creatinine 0.57 Estim Creat Clear Calc 153.1 Estimated GFR > 60 POC Glucose 173 H 221 H Random Glucose 167 H Lactic Acid Lactic Acid F/U @ 2Hr Lactic Acid F/U @ 4Hr Calcium 8.9 Magnesium Total Bilirubin AST ALT Alkaline Phosphatase Total Creatine Kinase Troponin I High Sens 648.4 H* D C-Reactive Protein Total Protein Albumin Lipase Beta-Hydroxybutyrate Urine Color Urine Appearance Urine pH Ur Specific [place] Urine Protein Urine Glucose (UA) Urine Ketones Urine Blood Urine Nitrite Ur Leukocyte Esterase Urine RBC Urine WBC Ur Squamous Epith Cells Urine Bacteria Hyaline Casts Urine Opiates Screen Ur Buprenorphine Scrn Ur Oxycodone Screen Urine Methadone Screen Urine Fentanyl Screen Ur Barbiturates Screen Ur Phencyclidine Scrn Ur Amphetamines Screen U Benzodiazepines Scrn Urine Cocaine Screen U Marijuana (THC) Screen Ethyl Alcohol 08/16/25 08/16/25 08/17/25 16:18 20:35 07:25 WBC RBC Hgb Hct MCV MCH MCHC RDW Plt Count MPV Immature Gran % (Auto) Neut % (Auto) Lymph % (Auto) [place] % (Auto) Eos % (Auto) Baso % (Auto) Lymph # (Auto) [place] # (Auto) Eos # (Auto) Baso # (Auto) Abs Immat Gran (auto) Absolute Neuts (auto) Absolute Nucleated RBC Nucleated RBC % (auto) Smear Tech's Comments ESR Hold Purple Top VBG pH VBG pCO2 VBG pO2 VBG HCO3 VBG O2 Saturation VBG Base Excess Sodium Potassium Chloride Carbon Dioxide Anion Gap BUN Creatinine Estim Creat Clear Calc Estimated GFR POC Glucose 185 H 146 H 124 H Random Glucose Lactic Acid Lactic Acid F/U @ 2Hr Lactic Acid F/U @ 4Hr Calcium Magnesium Total Bilirubin AST ALT Alkaline Phosphatase Total Creatine Kinase Troponin I High Sens C-Reactive Protein Total Protein Albumin Lipase Beta-Hydroxybutyrate Urine Color Urine Appearance Urine pH Ur Specific [place] Urine Protein Urine Glucose (UA) Urine Ketones Urine Blood Urine Nitrite Ur Leukocyte Esterase Urine RBC Urine WBC Ur Squamous Epith Cells Urine Bacteria Hyaline Casts Urine Opiates Screen Ur Buprenorphine Scrn Ur Oxycodone Screen Urine Methadone Screen Urine Fentanyl Screen Ur Barbiturates Screen Ur Phencyclidine Scrn Ur Amphetamines Screen U Benzodiazepines Scrn Urine Cocaine Screen U Marijuana (THC) Screen Ethyl Alcohol 08/17/25 08/17/25 08/17/25 12:00 15:34 20:01 WBC RBC Hgb Hct MCV MCH MCHC RDW Plt Count MPV Immature Gran % (Auto) Neut % (Auto) Lymph % (Auto) [place] % (Auto) Eos % (Auto) Baso % (Auto) Lymph # (Auto) [place] # (Auto) Eos # (Auto) Baso # (Auto) Abs Immat Gran (auto) Absolute Neuts (auto) Absolute Nucleated RBC Nucleated RBC % (auto) Smear Tech's Comments ESR Hold Purple Top VBG pH VBG pCO2 VBG pO2 VBG HCO3 VBG O2 Saturation VBG Base Excess Sodium Potassium Chloride Carbon Dioxide Anion Gap BUN Creatinine Estim Creat Clear Calc Estimated GFR POC Glucose 173 H 211 H 173 H Random Glucose Lactic Acid Lactic Acid F/U @ 2Hr Lactic Acid F/U @ 4Hr Calcium Magnesium Total Bilirubin AST ALT Alkaline Phosphatase Total Creatine Kinase Troponin I High Sens C-Reactive Protein Total Protein Albumin Lipase Beta-Hydroxybutyrate Urine Color Urine Appearance Urine pH Ur Specific [place] Urine Protein Urine Glucose (UA) Urine Ketones Urine Blood Urine Nitrite Ur Leukocyte Esterase Urine RBC Urine WBC Ur Squamous Epith Cells Urine Bacteria Hyaline Casts Urine Opiates Screen Ur Buprenorphine Scrn Ur Oxycodone Screen Urine Methadone Screen Urine Fentanyl Screen Ur Barbiturates Screen Ur Phencyclidine Scrn Ur Amphetamines Screen U Benzodiazepines Scrn Urine Cocaine Screen U Marijuana (THC) Screen Ethyl Alcohol 08/18/25 08/18/25 08/18/25 07:26 08:35 11:13 WBC 6.3 RBC 4.28 L Hgb 12.3 L Hct 38.1 L MCV 89.0 MCH 28.7 MCHC 32.3 RDW 13.5 Plt Count 182 MPV 10.3 Immature Gran % (Auto) Neut % (Auto) Lymph % (Auto) [place] % (Auto) Eos % (Auto) Baso % (Auto) Lymph # (Auto) [place] # (Auto) Eos # (Auto) Baso # (Auto) Abs Immat Gran (auto) Absolute Neuts (auto) Absolute Nucleated RBC 0.000 Nucleated RBC % (auto) 0.0 Smear Tech's Comments ESR Hold Purple Top VBG pH VBG pCO2 VBG pO2 VBG HCO3 VBG O2 Saturation VBG Base Excess Sodium 140 Potassium 3.4 Chloride 108 Carbon Dioxide 22 Anion Gap 13 BUN 7 L Creatinine 0.57 Estim Creat Clear Calc 153.1 Estimated GFR > 60 POC Glucose 165 H 196 H Random Glucose 165 H Lactic Acid Lactic Acid F/U @ 2Hr Lactic Acid F/U @ 4Hr Calcium 8.4 Magnesium Total Bilirubin AST ALT Alkaline Phosphatase Total Creatine Kinase Troponin I High Sens C-Reactive Protein Total Protein Albumin Lipase Beta-Hydroxybutyrate Urine Color Urine Appearance Urine pH Ur Specific [place] Urine Protein Urine Glucose (UA) Urine Ketones Urine Blood Urine Nitrite Ur Leukocyte Esterase Urine RBC Urine WBC Ur Squamous Epith Cells Urine Bacteria Hyaline Casts Urine Opiates Screen Ur Buprenorphine Scrn Ur Oxycodone Screen Urine Methadone Screen Urine Fentanyl Screen Ur Barbiturates Screen Ur Phencyclidine Scrn Ur Amphetamines Screen U Benzodiazepines Scrn Urine Cocaine Screen U Marijuana (THC) Screen Ethyl Alcohol Narrative Narrative: EKG 08/16/25 Vent. Rate : 83 BPM Atrial Rate : 83 BPM P-R Int : 184 ms QRS Dur : 92 ms QT Int : 398 ms P-R-T Axes : 49 -13 -10 degrees QTcB Int : 467 ms Normal sinus rhythm Normal ECG When compared with ECG of 14-Aug-2025 14:56, Nonspecific T wave abnormality, improved in Lateral leads ECHO 08/16/25 Conclusions: - 1. Technically difficult study due to body habitus as well as positioning 2. Low normal LVEF of 50-55% without significant regional wall motion abnormality noted, with grade 1 diastolic dysfunction 3. Limited visualization of cardiac valves with cardiac valvular Dopplers within normal limits CTA abd/pelvis 07/2025 Impression: 1. No abdominal aortic aneurysm or dissection 2. Stable extensive calcified atherosclerotic disease with stable plaque at the ostia of the mesenteric vessels and renal arteries. Equivocal hypoperfusion of the right and middle distal colonic branches of the SMA. No proximal occlusive thrombus is demonstrated. Conventional arteriogram may be of further diagnostic value this exam was subject to excessive motion. Similar findings were demonstrated previously no free air or pneumatosis intestinalis. Slight increased stool burden. Can not exclude mild colitis. Normal appendix. No significant diverticular disease. 3. Stable ancillary findings Assessment and Plan Final Anesthetic Review Family History of Problems with Anesthesia: No History of Problems with Anesthesia: No Documented by User: Maryana Mejia MD 08/19/25 14:52 [facility] Past Medical History Medical History Hypertensive urgency Abdominal pain PVD (peripheral vascular disease) Gastroparesis DKA (diabetic ketoacidosis) Obesity (BMI 30-39.9) PAD (peripheral artery disease) Afib Amputation of left great toe Lower limb amputation, great toe CAD (coronary artery disease) DMII (diabetes mellitus, type 2) Orthopedic hardware present Hyperglycemia Cellulitis Asthma Diabetes Hypertension FHx: bilateral hip replacements Family History Family History Father Cancer of neck Mother Uterus cancer Other No family history of coronary artery disease Surgical History Surgical History History of amputation of toe (07/29/22) History of amputation of great toe (01/07/22) History of back surgery History of neck surgery History of ankle surgery H/O bilateral hip replacements S/P quadruple vessel bypass Social History Social History Household Members: Spouse and Children Household Members Other:: 3 [facility] Are you a primary intensive care ambulance paramedic to a significant other at home: No Do you presently have visiting nurse or other home services: No Alcohol intake: never Comment: refused bed or chair alarm Patient Tobacco Use Status: Former Tobacco user Tobacco use type: Cigarette e-Cigarette/Vaping Use: Never Used Second Hand Smoke Exposure: No Substance Use Type: Marijuana Advance Directives Date on File: 07/20/25 service: No Current occupational status: disabled Meds Allergies Allergy/AdvReac Type Severity Reaction Status Date / Time morphine AdvReac Intermediate Hallucinati Verified 08/19/25 13:58 ons Home Medications ?Medication ?Instructions ?Recorded ?Confirmed ?Last Taken ?Type ezetimibe 10 mg tablet 10 mg PO BEDTIME 01/03/22 08/14/25 07/17/25 History gabapentin 300 mg capsule 300 mg PO TID 01/03/22 08/14/25 07/17/25 History insulin glargine 100 unit/mL 10 unit subcut BEDTIME 01/03/22 08/14/25 07/17/25 History subcutaneous solution (Lantus U-100 Insulin) isosorbide mononitrate 30 mg 30 mg PO DAILY 01/03/22 08/14/25 07/17/25 History tablet,extended release 24 hr loratadine 10 mg tablet 10 mg PO DAILY 01/03/22 08/14/25 07/17/25 History losartan 25 mg tablet 25 mg PO DAILY 01/03/22 08/14/25 07/17/25 History meclizine 25 mg tablet 25 mg PO TID PRN Dizziness Or 01/03/22 08/14/25 05/23/25 History Vertigo rosuvastatin 40 mg tablet 40 mg PO BEDTIME 01/03/22 08/14/25 07/17/25 History aspirin 81 mg tablet,delayed 81 mg PO DAILY 08/04/22 08/14/25 07/17/25 History release furosemide 20 mg tablet 20 mg PO DAILY 11/13/22 08/14/25 07/17/25 History metoprolol succinate 25 mg 25 mg PO DAILY 10/14/24 08/14/25 07/17/25 History tablet,extended release 24 hr insulin lispro 100 unit/mL See Protocol subcut QIDACHS 12/16/24 08/14/25 07/17/25 History subcutaneous solution rivaroxaban 20 mg tablet (Xarelto) 20 mg PO DAILY@1700 12/16/24 08/14/25 07/17/25 History insulin glargine 100 unit/mL 8 unit subcut DAILY 03/23/25 08/14/25 07/17/25 History subcutaneous solution (Lantus U-100 Insulin) glucagon 1 mg/0.2 mL subcutaneous 1 mg subcut ONCE PRN Hypoglycemia 05/26/25 08/14/25 Unknown History auto-injector (Gvoke HypoPen 2-Pack) pantoprazole 40 mg tablet,delayed 40 mg PO BID@0630,1630 05/26/25 08/14/25 07/17/25 History release ondansetron 4 mg disintegrating 4 mg PO Q8H PRN Nausea And Vomiting 07/19/25 08/14/25 Unknown History tablet venlafaxine 100 mg tablet 100 mg PO BID 08/14/25 08/14/25 Unknown History Exam Airway Mallampati Class: II (edentulous) TM Dist: >3cm Neck ROM: Full Heart: rrr Lungs: cta Assessment and Plan Assessment Anesthesia Assessment: Anesthesia Plan Discussed and Chart Reviewed Final Anesthetic Review NPO: Yes ASA Class: III Final Preanesthetic Review: No Changes in Pt Med Stat, Meds/Allgs Chart Reviewed and Consent Obtained/Reviewed Patient Risk: Intermediate Procedure Risk: Intermediate Anesthetic Plan Anesthetic Plan: MAC: Disposition: Standard PACU
[2025-08-18 15:15] LABS: Glucose, Whole Blood 197 mg/dL (60-115)
[2025-08-18 15:34] VITALS: BP 150/68; PULSE 66; RESP 18; TEMP 36.9; O2SAT 98
--- NOTE | 2025-08-18 17:45 | HO.SKINPHOTO ---
Location: Category: Stage: Length: Width: Depth: cm Location: Category: Stage: Length: Width: Depth: cm Location: Category: Stage: Length: Width: Depth: cm Location: Category: Stage: Length: Width: Depth: cm Location: Category: Stage: Length: Width: Depth: cm Location: Category: Stage: Length: Width: Depth: cm
--- NOTE | 2025-08-18 17:46 | HO.SKINPHOTO ---
Location:LEFT HAND Category: Stage: Length: Width: Depth: cm Location: Category: Stage: Length: Width: Depth: cm Location: Category: Stage: Length: Width: Depth: cm Location: Category: Stage: Length: Width: Depth: cm Location: Category: Stage: Length: Width: Depth: cm Location: Category: Stage: Length: Width: Depth: cm
[2025-08-18 19:58] VITALS: BP 160/70; PULSE 73; RESP 16; TEMP 36.8; O2SAT 98
[2025-08-18 20:23] LABS: Glucose, Whole Blood 147 mg/dL (60-115)
[2025-08-18] MEDS: Insulin Glargine,Hum.rec.anlog 100 UNIT/ML 10 ML VIAL 10 UNIT SUBCUT (21:42)
[2025-08-18 23:52] VITALS: BP 116/68; PULSE 67; RESP 16; TEMP 36.9; O2SAT 98
[2025-08-19] VITALS (10 sets, daily range): BP systolic 93–192; BP diastolic 49–91; PULSE 62–83; RESP 16–20; TEMP 35.8–37; O2SAT 93–100
[2025-08-19] MEDS: metroNIDAZOLE/NS 500 MG/100 ML PIGGYBACK 100 MG IV ×2 (04:33→16:21)
[2025-08-19 07:21] LABS: Glucose, Whole Blood 151 mg/dL (60-115)
--- NOTE | 2025-08-19 08:11 | P.PNGS_ITS ---
Subjective Subjective Date of Service: 08/19/25 <Clive Seo PA-C - Last Filed: 08/19/25 08:15> 08/19/25 <Derrick Perkins MD - Last Filed: 08/19/25 14:17> Interval history: Doing okay today, very anxious about upcoming EGD, does not want to do this as he is nervous about being put to sleep. States he is having some increased pain in the abdomen today, denies nausea or vomiting. Continues to pass gas. <Clive Seo PA-C - Last Filed: 08/19/25 08:15> Physical Exam 2 Vital Signs: Vital Signs: Last Vital Signs Temp 97.2 F 08/19/25 07:15 Pulse 69 08/19/25 07:15 Resp 18 08/19/25 07:15 BP 135/64 08/19/25 07:15 Pulse Ox 95 08/19/25 07:15 O2 Del Method Room Air 08/19/25 07:15 BMI result Body Mass Index 34.9 <Clive Seo PA-C - Last Filed: 08/19/25 08:15> Const: General: no acute distress and anxious <Clive Seo PA-C - Last Filed: 08/19/25 08:15> Orientation/consciousness: patient oriented x3 <Clive Seo PA-C - Last Filed: 08/19/25 08:15> GI: Inspection: No distended <Clive Seo PA-C - Last Filed: 08/19/25 08:15> Palpation (GI): Soft to palpation, nontender and no guarding <Clive Seo PA-C - Last Filed: 08/19/25 08:15> Neuro: General: patient oriented x3 <FELICIA Blackman Last Filed: 08/19/25 08:15> Objective Data Active Medications Acetaminophen (Acetaminophen 325 Mg Tablet) 650 mg PO Q6H PRN PRN Reason: Pain, Mild 1-3,fever,headache Amlodipine Besylate (Amlodipine Besylate 5 Mg Tablet) 5 mg PO DAILY [facility]; Protocol Last Admin: 08/19/25 08:04 Dose: Not Given Documented By: NIALL Non-Admin Reason: Patient Refused Aspirin (Aspirin Enteric Coated 81 Mg Tablet.) 81 mg PO DAILY [facility] Last Admin: 08/19/25 08:04 Dose: Not Given Documented By: NIALL Non-Admin Reason: Patient Refused Atorvastatin Calcium (Atorvastatin Calcium 80 Mg Tablet) 80 mg PO BEDTIME [facility] Last Admin: 08/18/25 21:43 Dose: 80 mg Documented By: TOMMY Calcium Carbonate (Calcium Carbonate 750 Mg Tab.Chew) 750 mg PO Q4H PRN PRN Reason: Heartburn Ceftriaxone Sodium (Ceftriaxone Sodium 1 Gm Vial) 1 gm IVPUSH Q24H [facility] Last Admin: 08/19/25 08:04 Dose: 1 gm Documented By: NIALL Gabapentin (Gabapentin 300 Mg Capsule) 300 mg PO TID [facility] Last Admin: 08/19/25 08:05 Dose: Not Given Documented By: NIALL Non-Admin Reason: Patient Refused Hydromorphone HCl (Hydromorphone Hcl 0.5 Mg/0.5 Ml Syringe) 0.5 mg IVPUSH Q4H PRN; Protocol PRN Reason: Pain, Severe (Pain Scale 7-10) Last Admin: 08/19/25 06:11 Dose: 0.5 mg Documented By: TOMMY Metronidazole (Flagyl) 500 mg in 100 mls @ 100 mls/hr IV Q12H [facility] Last Infusion: 08/19/25 06:10 Dose: Infused Documented By: TOMMY Insulin Glargine (Insulin Glargine,Hum.Rec.Anlog 100 Unit/Ml 10 Ml Vial) 10 unit SUBCUT BEDTIME [facility] Last Admin: 08/18/25 21:42 Dose: 10 unit Documented By: TOMMY Insulin Human Lispro (Insulin Lispro 100 Unit/Ml 3 Ml Vial) 0 unit SUBCUT QIDACHS [facility]; Protocol Last Admin: 08/19/25 07:31 Dose: Not Given Documented By: NIALL Non-Admin Reason: NPO Magnesium Hydroxide (Milk Of Magnesia 30 Ml Oral.Susp) 30 ml PO DAILY PRN PRN Reason: Constipation Melatonin (Melatonin 3 Mg Tablet) 6 mg PO BEDTIME PRN PRN Reason: Insomnia Metoprolol Succinate (Metoprolol Succinate Er 50 Mg Tab.Er.24h) 50 mg PO DAILY [facility]; Protocol Last Admin: 08/19/25 08:05 Dose: Not Given Documented By: NIALL Non-Admin Reason: Patient Refused Ondansetron HCl (Ondansetron Hcl 4 Mg/2 Ml Vial) 4 mg IVPUSH Q6H PRN PRN Reason: Nausea and Vomiting Last Admin: 08/19/25 04:33 Dose: 4 mg Documented By: TOMMY Pantoprazole Sodium (Pantoprazole Sodium 40 Mg/10 Ml Vial) 40 mg IVPUSH DAILY@0630 [facility] Last Admin: 08/19/25 06:11 Dose: 40 mg Documented By: TOMMY Rivaroxaban (Rivaroxaban 20 Mg Tablet) 20 mg PO DAILY [facility] On Hold: 08/18/25 09:52 Last Admin: 08/18/25 08:26 Dose: 20 mg Documented By: RITA Sodium Chloride (0.9 % Sodium Chloride Flush 3 Ml Syringe) 3 ml IVFLUSH QSHIFT [facility] Last Admin: 08/19/25 08:05 Dose: Not Given Documented By: NIALL Non-Admin Reason: Previously Administered <Clive Seo PA-C - Last Filed: 08/19/25 08:15> Labs CBC & Chem 7: 08/18/25 08:35 08/18/25 08:35 <Clive Seo PA-C - Last Filed: 08/19/25 08:15> Labs: Laboratory Results - last 24 hr 08/18/25 08/18/25 08/18/25 08:35 11:13 15:04 MCV 89.0 MCH 28.7 MCHC 32.3 RDW 13.5 Plt Count 182 MPV 10.3 Absolute Nucleated RBC 0.000 Nucleated RBC % (auto) 0.0 Anion Gap 13 Estim Creat Clear Calc 153.1 Estimated GFR > 60 POC Glucose 196 H 197 H Random Glucose 165 H Calcium 8.4 08/18/25 08/19/25 20:19 07:14 MCV MCH MCHC RDW Plt Count MPV Absolute Nucleated RBC Nucleated RBC % (auto) Anion Gap Estim Creat Clear Calc Estimated GFR POC Glucose 147 H 151 H Random Glucose Calcium <Clive Seo PA-C - Last Filed: 08/19/25 08:15> Procedures Date of Service Date of Service: 08/19/25 <Clive Seo PA-C - Last Filed: 08/19/25 08:15> 08/19/25 <Derrick Perkins MD - Last Filed: 08/19/25 14:17> Progress Note: A&P Assessment and plan (1) Ischemic bowel disease: Status: Acute <Clive Seo PA-C - Last Filed: 08/19/25 08:15> Assessment and Plan: Very anxious earlier Awaiting for endoscopy Abdomen remained soft and very benign Still complains of similar pain No nausea or vomiting Tolerated full liquids last night Await EGD No surgical intervention currently Seen and examined independently <Derrick Perkins MD - Last Filed: 08/19/25 14:17> Assessment and Plan: 64 year old male history of hypertension, gastroparesis, class 1 obesity, CAD, paroxysmal AFib, insulin-dependent diabetes and diabetic neuropathy, admitted for abdominal pain, likely chronic ischemic colitis. He reports some increased abdominal pain this morning. He is very anxious for EGD today. Became tearful during evaluation, I reassured him that this procedure should be done to further evaluate his abdominal pain given that his CT was reassuring but he continues to have pain. Denying nausea. Diet was advanced yesterday to full liquid now NPO for EGD, seems to have tolerated this well. He is anticoagulated, no EKG changes. Abdomen is soft and benign. Currently treating conservatively with bowel rest, IVF. No surgical intervention planned at this time. Will continue to follow. Can advance diet as tolerated after EGD antiemetics as needed pain control Encouraged ambulation as tolerated <Clive Seo PA-C - Last Filed: 08/19/25 08:15> Time Spent With Patient Time: Total time managing care of this patient today ____ minutes. <Clive Seo PA-C - Last Filed: 08/19/25 08:15> Quality Stroke Does the patient have a stroke diagnosis?: No <Clive Seo PA-C - Last Filed: 08/19/25 08:15> VTE Prior VTE?: No <Clive Seo PA-C - Last Filed: 08/19/25 08:15> VTE Risk Level:: Medical - moderate - high <Clive Seo PA-C - Last Filed: 08/19/25 08:15> VTE Device Contraindication: Treatment Not Indicated <Clive Seo PA-C - Last Filed: 08/19/25 08:15> VTE Drug Contraindication: N/A - Med Ordered <Clive Seo PA-C - Last Filed: 08/19/25 08:15>
[2025-08-19 11:09] LABS: Glucose, Whole Blood 135 mg/dL (60-115)
--- NOTE | 2025-08-19 14:44 | PC.NURSE ---
report given to severiano shepard rn aware of 2 areas to sign on preop record after dr. herrera, and anesthesia consent the patient and order and 24 hour are completed.
--- NOTE | 2025-08-19 14:51 | MHC.SHP ---
Pre-Procedural Eval Section A - 24 Hr Update-Section A only Date of Service: 08/19/25 The patient is an INPATIENT: Yes Changes since office visit: Yes New Medical Problems, Yes Changes in Medication and Yes Patient answered all questions; No Cold of Flu in the past 2 weeks The patient has been examined within 24 hours of the surgical procedure. The History & Physical has been completed within 30 days and I have reviewed it.: Yes Section B - Complete if H&P > 30 days Chief Complaint: Lactic acidosis, ischemic bowels Allergies: Allergies Allergy/AdvReac Type Severity Reaction Status Date / Time morphine AdvReac Intermediate Hallucinati Verified 08/19/25 13:58 ons Plan Diagnosis/Plan: Unchanged I have reviewed the history and physical and performed a pertinent physical examination on my patient. No changes have occurred unless specified. Time Spent With Patient Time: Total time managing care of this patient today ____ minutes.
--- NOTE | 2025-08-19 15:15 | W.PM.OPN ---
Operative Note Operative Note Date of Service: 08/19/25 Narrative: FLEXIBLE TRANSORAL UPPER GASTROINTESTINAL ENDOSCOPY Pre-op diagnosis: Nausea and vomiting, abdominal pain Post-op diagnosis: Gastritis, Endoscopist:? Prisca Curtis MD Anesthesia:?MAC UPPER ENDOSCOPY Consent: Indications for the procedure and potential complications of bleeding, perforation, reaction to medications and missed diagnosis were discussed with the patient and informed consent was obtained. Instrument: Olympus GIF H 190 mid size upper endoscope Monitoring: Vital signs and clinical assessment, continuous EKG monitoring, Pulse oximetry, Carbon Dioxide monitoring and blood pressure monitoring were done throughout the procedure. Procedure: The patient was placed in the left lateral decubitis position and pre-procedure medications were administered and a bite block was placed. The endoscope was inserted into the mouth and advanced under direct vision to the third part of duodenum. A careful inspection was made as the upper endoscope was withdrawn including a retroflexed examination of the proximal stomach; Findings and interventions are described below. Findings: Larynx: Normal Esophagus: GE junction at 40 cms. Focal esophagitis at GE junction Stomach: Moderate diffuse gastric erythema. Grade 2 flap valve on retroflexed examination of the cardia. Duodenum: Normal bulb and descending duodenum Intervention: None Impression and Post Procedure Diagnosis: Endoscopy Findings: ESOPHAGUS: Focal esophagitis at GE junction STOMACH: Moderate diffuse gastritis DUODENUM: Normal No clear etiology found for nausea and vomiting - likely due to gastroparesis Plan: Clear liquid diet and advance diet as tolerated. Above findings were reviewed with the patient and relevant handouts were given and the discharge area.
--- NOTE | 2025-08-19 16:11 | MHC.CM.PN ---
EMR REVIEWED AND PER MD ROUNDS, PATIENT IS NOT MEDICALLY CLEARED FOR DISCHARGE DUE TO MANAGEMENT OF NSTEMI AND CHRONIC MESENTERIC ISCHEMIA WITH ENDOSCOPY PERFORMED TODAY.
[2025-08-19 16:29] LABS: Glucose, Whole Blood 181 mg/dL (60-115)
--- NOTE | 2025-08-19 16:55 | P.PNIM_ITS ---
Subjective Subjective Date of Service: 08/19/25 Interval History: seen and examined this morning follow up abdomianl pain, ischemic colitis reporting abdominal pain egd today Review of Systems Review of Systems: Yes all other systems are reviewed and are negative Constitutional Constitutional: Denies chills and Denies fever(s) Physical Exam 2 Vital Signs: Vital Signs: Last Vital Signs Temp 96.4 F L 08/19/25 16:00 Pulse 83 08/19/25 16:00 Resp 18 08/19/25 16:00 BP 188/79 H 08/19/25 16:00 Pulse Ox 93 08/19/25 16:00 O2 Del Method Room Air 08/19/25 16:00 BMI result Body Mass Index 34.9 Const: General: cooperative, comfortable, alert and awake Nutritional Appearance: obese Orientation/consciousness: patient oriented x3 Resp: Effort & Inspection: normal respiratory effort, able to speak in complete sentences, no respiratory distress and no use of accessory muscles Cardio: Rate: regular rate GI: Other: Epigastric tenderness Inspection: No distended Palpation (GI): Soft to palpation Neuro: Other: Grossly nonfocal General: patient oriented x3 Objective Data Active Medications Acetaminophen (Acetaminophen 325 Mg Tablet) 650 mg PO Q6H PRN PRN Reason: Pain, Mild 1-3,fever,headache Amlodipine Besylate (Amlodipine Besylate 5 Mg Tablet) 5 mg PO DAILY [facility]; Protocol Last Admin: 08/19/25 08:04 Dose: Not Given Documented By: NIALL Non-Admin Reason: Patient Refused Aspirin (Aspirin Enteric Coated 81 Mg Tablet.) 81 mg PO DAILY [facility] Last Admin: 08/19/25 08:04 Dose: Not Given Documented By: NIALL Non-Admin Reason: Patient Refused Atorvastatin Calcium (Atorvastatin Calcium 80 Mg Tablet) 80 mg PO BEDTIME [facility] Last Admin: 08/18/25 21:43 Dose: 80 mg Documented By: TOMMY Calcium Carbonate (Calcium Carbonate 750 Mg Tab.Chew) 750 mg PO Q4H PRN PRN Reason: Heartburn Ceftriaxone Sodium (Ceftriaxone Sodium 1 Gm Vial) 1 gm IVPUSH Q24H [facility] Last Admin: 08/19/25 08:04 Dose: 1 gm Documented By: NIALL Gabapentin (Gabapentin 300 Mg Capsule) 300 mg PO TID [facility] Last Admin: 08/19/25 16:29 Dose: Not Given Documented By: NIALL Non-Admin Reason: Patient Refused Hydromorphone HCl (Hydromorphone Hcl 0.5 Mg/0.5 Ml Syringe) 0.5 mg IVPUSH Q4H PRN; Protocol PRN Reason: Pain, Severe (Pain Scale 7-10) Last Admin: 08/19/25 16:22 Dose: 0.5 mg Documented By: NIALL Metronidazole (Flagyl) 500 mg in 100 mls @ 100 mls/hr IV Q12H [facility] Last Admin: 08/19/25 16:21 Dose: 100 mls/hr Documented By: NIALL Insulin Glargine (Insulin Glargine,Hum.Rec.Anlog 100 Unit/Ml 10 Ml Vial) 10 unit SUBCUT BEDTIME [facility] Last Admin: 08/18/25 21:42 Dose: 10 unit Documented By: TOMMY Insulin Human Lispro (Insulin Lispro 100 Unit/Ml 3 Ml Vial) 0 unit SUBCUT QIDACHS [facility]; Protocol Last Admin: 08/19/25 16:36 Dose: 2 unit Documented By: NIALL Magnesium Hydroxide (Milk Of Magnesia 30 Ml Oral.Susp) 30 ml PO DAILY PRN PRN Reason: Constipation Melatonin (Melatonin 3 Mg Tablet) 6 mg PO BEDTIME PRN PRN Reason: Insomnia Metoprolol Succinate (Metoprolol Succinate Er 50 Mg Tab.Er.24h) 50 mg PO DAILY [facility]; Protocol Last Admin: 08/19/25 08:05 Dose: Not Given Documented By: NIALL Non-Admin Reason: Patient Refused Naloxone HCl (Naloxone Hcl 0.4 Mg/Ml Vial) 0.04 mg IVPUSH Q5M PRN PRN Reason: Excessive sedation or RR < 8 Ondansetron HCl (Ondansetron Hcl 4 Mg/2 Ml Vial) 4 mg IVPUSH Q6H PRN PRN Reason: Nausea and Vomiting Last Admin: 08/19/25 04:33 Dose: 4 mg Documented By: TOMMY Pantoprazole Sodium (Pantoprazole Sodium 40 Mg/10 Ml Vial) 40 mg IVPUSH DAILY@0630 [facility] Last Admin: 08/19/25 06:11 Dose: 40 mg Documented By: TOMMY Rivaroxaban (Rivaroxaban 20 Mg Tablet) 20 mg PO DAILY [facility] Last Admin: 08/18/25 08:26 Dose: 20 mg Documented By: RITA Sodium Chloride (0.9 % Sodium Chloride Flush 3 Ml Syringe) 3 ml IVFLUSH QSHIFT [facility] Last Admin: 08/19/25 16:22 Dose: Not Given Documented By: NIALL Non-Admin Reason: IV Running Labs 08/18/25 08:35 08/18/25 08:35 Labs: Laboratory Results - last 24 hr 08/18/25 08/19/25 08/19/25 20:19 07:14 11:05 POC Glucose 147 H 151 H 135 H 08/19/25 16:25 POC Glucose 181 H Microbiology Microbiology Results: Microbiology 08/14/25 08:54 Blood Culture - Final Blood - Venous No growth after 5 days. 08/14/25 08:44 Blood Culture - Final Blood - Venous No growth after 5 days. Assessment and Plan (1) Ischemic bowel disease: Status: Acute (2) NSTEMI (non-ST elevated myocardial infarction): Status: Acute Plan 64-year-old male with a past medical history of multiple prior abdominal surgeries, hypertension, diabetes mellitus, and ischemic bowels on Xarelto, who presented to the emergency department with abdominal pain and vomiting for the past three days foudn to have NSTEMI NSTEMI Likely Type 2 from overall ischemia and HTN urgency No EKG changes to suggest ACS Keep on Tele Echo EF 50-55%, no significant RWMA Cardiology following fully anticoagulated on Lovenox x 72hrs, transitioned back to xarelto Continue Metoprolol, aspirin imdur discontinued Hold ezetimibe Chronic Mesenteric ischema, acute Ischemic colitis vs gastritis CT scan showing Equivocal hypoperfusion of the right and middle distal colonic branches of the SMA. Can not exclude mild colitis conservative measures with IVF, pain control and bowel rest continue Ceftriaxone and Flagyl, on day #5 Vascular surgery consultation> baseline chronic ischemia, mainstay statin, anticoagulation, avoid hypotension Gen surg consultation>no surgical intervention seen by GI, s/p EGD - esophagus with focal esophagitis at GE junction, moderate diffuse gastritis. No clear etiology for nausea and vomiting, possibly gastroparesis -plan for clear liquid diet, advance diet as tolerated Lactic acidosis, acute secondary to ischemia Treated with IV fluids Uncontrolled HTN with hypertensive urgency continue metoprolol and Norvasc Imdur was discontinued Insulin-dependent diabetes with hyperglycemia sliding scale insulin per standard protocol Lantus 10 units bedtime Paroxysmal AFib metoprolol resume xarelto Diabetic neuropathy gabapentin Class 3 obesity weight loss encouraged Full code DVT prophylaxis - mechanical devices, xarelto Quality Stroke Does the patient have a stroke diagnosis?: No VTE Prior VTE?: No VTE Risk Level:: Medical - moderate - high VTE Device Contraindication: Treatment Not Indicated VTE Drug Contraindication: N/A - Med Ordered
[2025-08-19 20:23] LABS: Glucose, Whole Blood 188 mg/dL (60-115)
[2025-08-19] MEDS: 0.9 % Sodium Chloride Flush 3 ML SYRINGE IVFLUSH (20:24)
[2025-08-19] MEDS: Insulin Glargine,Hum.rec.anlog 100 UNIT/ML 10 ML VIAL 10 UNIT SUBCUT (21:41)
[2025-08-20 03:19] VITALS: BP 107/63; PULSE 73; RESP 18; TEMP 36.6; O2SAT 96
[2025-08-20] MEDS: metroNIDAZOLE/NS 500 MG/100 ML PIGGYBACK 100 MG IV ×2 (05:38→16:54)
[2025-08-20 07:27] VITALS: BP 156/67; PULSE 69; RESP 18; TEMP 36.2; O2SAT 96
[2025-08-20 07:35] LABS: Glucose, Whole Blood 196 mg/dL (60-115)
[2025-08-20] MEDS: Aspirin Enteric Coated 81 MG TABLET.DR PO (08:36)
[2025-08-20] MEDS: Metoprolol Succinate ER 50 MG TAB.ER.24H PO (08:36)
[2025-08-20] MEDS: 0.9 % Sodium Chloride Flush 3 ML SYRINGE IVFLUSH ×3 (08:38→20:43)
--- NOTE | 2025-08-20 09:20 | HO.POSTANES ---
Post Anesthesia Evaluation Post Anesthesia Evaluation Date of Service: 08/20/25 Vital Signs: Vital Signs Temp Pulse Resp BP Pulse Ox O2 Del Method 08/20/25 07:27 97.2 F 69 18 156/67 H 96 Room Air 08/20/25 03:19 97.8 F 73 18 107/63 96 Room Air 08/19/25 23:23 97.8 F 70 18 133/60 99 Room Air Anesthesia: TIVA Mental Status: Awake Pain Control: Satisfactory Nausea/Vomiting: None Hydration: Adequate Anesthesia-Related Issues: No Anes. Related Issues
[2025-08-20 11:24] VITALS: BP 156/74; PULSE 68; RESP 18; TEMP 36.4; O2SAT 97
[2025-08-20 11:24] LABS: Glucose, Whole Blood 173 mg/dL (60-115)
--- NOTE | 2025-08-20 13:25 | PM.PNGS ---
Subjective Subjective Date of Service: 08/20/25 Physical Exam Vital Signs: Vital Signs: Last Vital Signs Temp 97.6 F 08/20/25 11:24 Pulse 68 08/20/25 11:24 Resp 18 08/20/25 11:24 BP 156/74 H 08/20/25 11:24 Pulse Ox 97 08/20/25 11:24 O2 Del Method Room Air 08/20/25 11:24 BMI result Body Mass Index 34.9 Objective Data Active Medications Acetaminophen (Acetaminophen 325 Mg Tablet) 650 mg PO Q6H PRN PRN Reason: Pain, Mild 1-3,fever,headache Amlodipine Besylate (Amlodipine Besylate 5 Mg Tablet) 5 mg PO DAILY [facility]; Protocol Last Admin: 08/20/25 08:36 Dose: 5 mg Documented By: ROXANE Aspirin (Aspirin Enteric Coated 81 Mg Tablet.) 81 mg PO DAILY [facility] Last Admin: 08/20/25 08:36 Dose: 81 mg Documented By: ROXANE Atorvastatin Calcium (Atorvastatin Calcium 80 Mg Tablet) 80 mg PO BEDTIME [facility] Last Admin: 08/19/25 21:41 Dose: 80 mg Documented By: ANDREW Calcium Carbonate (Calcium Carbonate 750 Mg Tab.Chew) 750 mg PO Q4H PRN PRN Reason: Heartburn Ceftriaxone Sodium (Ceftriaxone Sodium 1 Gm Vial) 1 gm IVPUSH Q24H [facility] Last Admin: 08/20/25 08:35 Dose: 1 gm Documented By: ROXANE Gabapentin (Gabapentin 300 Mg Capsule) 300 mg PO TID [facility] Last Admin: 08/20/25 08:36 Dose: 300 mg Documented By: ROXANE Hydromorphone HCl (Hydromorphone Hcl 0.5 Mg/0.5 Ml Syringe) 0.5 mg IVPUSH Q4H PRN; Protocol PRN Reason: Pain, Severe (Pain Scale 7-10) Last Admin: 08/20/25 11:12 Dose: 0.5 mg Documented By: SOTO Metronidazole (Flagyl) 500 mg in 100 mls @ 100 mls/hr IV Q12H [facility] Last Infusion: 08/20/25 07:17 Dose: Infused Documented By: ANDREW Insulin Glargine (Insulin Glargine,Hum.Rec.Anlog 100 Unit/Ml 10 Ml Vial) 10 unit SUBCUT BEDTIME [facility] Last Admin: 08/19/25 21:41 Dose: 10 unit Documented By: ANDREW Insulin Human Lispro (Insulin Lispro 100 Unit/Ml 3 Ml Vial) 0 unit SUBCUT QIDACHS [facility]; Protocol Last Admin: 08/20/25 12:12 Dose: 2 unit Documented By: ZO Magnesium Hydroxide (Milk Of Magnesia 30 Ml Oral.Susp) 30 ml PO DAILY PRN PRN Reason: Constipation Melatonin (Melatonin 3 Mg Tablet) 6 mg PO BEDTIME PRN PRN Reason: Insomnia Metoprolol Succinate (Metoprolol Succinate Er 50 Mg Tab.Er.24h) 50 mg PO DAILY [facility]; Protocol Last Admin: 08/20/25 08:36 Dose: 50 mg Documented By: ROXANE Naloxone HCl (Naloxone Hcl 0.4 Mg/Ml Vial) 0.04 mg IVPUSH Q5M PRN PRN Reason: Excessive sedation or RR < 8 Nystatin (Nystatin Powder 15 Gm Bottle) 1 appl TOPICAL TID [facility]; Protocol Ondansetron HCl (Ondansetron Hcl 4 Mg/2 Ml Vial) 4 mg IVPUSH Q6H PRN PRN Reason: Nausea and Vomiting Last Admin: 08/20/25 11:11 Dose: 4 mg Documented By: SOTO Pantoprazole Sodium (Pantoprazole Sodium 40 Mg/10 Ml Vial) 40 mg IVPUSH DAILY@0630 [facility] Last Admin: 08/20/25 05:37 Dose: 40 mg Documented By: ANDREW Rivaroxaban (Rivaroxaban 20 Mg Tablet) 20 mg PO DAILY [facility] Last Admin: 08/20/25 08:36 Dose: 20 mg Documented By: ROXANE Sodium Chloride (0.9 % Sodium Chloride Flush 3 Ml Syringe) 3 ml IVFLUSH QSHIFT [facility] Last Admin: 08/20/25 08:38 Dose: 3 ml Documented By: ROXANE Labs 08/18/25 08:35 08/18/25 08:35 Labs: Laboratory Results - last 24 hr 08/19/25 08/19/25 08/20/25 16:25 19:47 07:26 POC Glucose 181 H 188 H 196 H 08/20/25 11:20 POC Glucose 173 H Microbiology Microbiology Results: Microbiology 08/14/25 08:54 Blood Culture - Final Blood - Venous No growth after 5 days. 10/19/25 08:44 Blood Culture - Final Blood - Venous No growth after 5 days. Procedures Date of Service Date of Service: 08/20/25 Progress Note: A&P Time Spent With Patient Time: Total time managing care of this patient today ____ minutes. Quality Stroke Does the patient have a stroke diagnosis?: No VTE Prior VTE?: No VTE Risk Level:: Medical - moderate - high VTE Device Contraindication: Treatment Not Indicated VTE Drug Contraindication: N/A - Med Ordered
--- NOTE | 2025-08-20 13:33 | HO.PM.IMPN ---
Subjective Subjective Date of Service: 08/20/25 Interval History: seen and examined this morning follow up abdominal pain, ischemic colitis Review of Systems Review of Systems: Yes all other systems are reviewed and are negative Constitutional Constitutional: Denies chills and Denies fever(s) Physical Exam Exam: Exam: Appearing in no acute distress lung sounds are clear to auscultation heart regular rate rhythm, clear S1, S2 positive bowel sounds, abdomen is soft, nontender neuro patient is alert x3, no focal deficits Vital Signs: Vital Signs: Last Vital Signs Temp 97.6 F 08/20/25 11:24 Pulse 68 08/20/25 11:24 Resp 18 08/20/25 11:24 BP 156/74 H 08/20/25 11:24 Pulse Ox 97 08/20/25 11:24 O2 Del Method Room Air 08/20/25 11:24 BMI result Body Mass Index 34.9 Objective Data Active Medications Acetaminophen (Acetaminophen 325 Mg Tablet) 650 mg PO Q6H PRN PRN Reason: Pain, Mild 1-3,fever,headache Amlodipine Besylate (Amlodipine Besylate 5 Mg Tablet) 5 mg PO DAILY [facility]; Protocol Last Admin: 08/20/25 08:36 Dose: 5 mg Documented By: ROXANE Aspirin (Aspirin Enteric Coated 81 Mg Tablet.) 81 mg PO DAILY [facility] Last Admin: 08/20/25 08:36 Dose: 81 mg Documented By: ROXANE Atorvastatin Calcium (Atorvastatin Calcium 80 Mg Tablet) 80 mg PO BEDTIME [facility] Last Admin: 08/19/25 21:41 Dose: 80 mg Documented By: ANDREW Calcium Carbonate (Calcium Carbonate 750 Mg Tab.Chew) 750 mg PO Q4H PRN PRN Reason: Heartburn Ceftriaxone Sodium (Ceftriaxone Sodium 1 Gm Vial) 1 gm IVPUSH Q24H [facility] Last Admin: 08/20/25 08:35 Dose: 1 gm Documented By: ROXANE Gabapentin (Gabapentin 300 Mg Capsule) 300 mg PO TID [facility] Last Admin: 08/20/25 08:36 Dose: 300 mg Documented By: ROXANE Hydromorphone HCl (Hydromorphone Hcl 0.5 Mg/0.5 Ml Syringe) 0.5 mg IVPUSH Q4H PRN; Protocol PRN Reason: Pain, Severe (Pain Scale 7-10) Last Admin: 08/20/25 11:12 Dose: 0.5 mg Documented By: SOTO Metronidazole (Flagyl) 500 mg in 100 mls @ 100 mls/hr IV Q12H [facility] Last Infusion: 08/20/25 07:17 Dose: Infused Documented By: ANDREW Insulin Glargine (Insulin Glargine,Hum.Rec.Anlog 100 Unit/Ml 10 Ml Vial) 10 unit SUBCUT BEDTIME [facility] Last Admin: 08/19/25 21:41 Dose: 10 unit Documented By: ANDREW Insulin Human Lispro (Insulin Lispro 100 Unit/Ml 3 Ml Vial) 0 unit SUBCUT QIDACHS [facility]; Protocol Last Admin: 08/20/25 12:12 Dose: 2 unit Documented By: ZO Magnesium Hydroxide (Milk Of Magnesia 30 Ml Oral.Susp) 30 ml PO DAILY PRN PRN Reason: Constipation Melatonin (Melatonin 3 Mg Tablet) 6 mg PO BEDTIME PRN PRN Reason: Insomnia Metoprolol Succinate (Metoprolol Succinate Er 50 Mg Tab.Er.24h) 50 mg PO DAILY [facility]; Protocol Last Admin: 08/20/25 08:36 Dose: 50 mg Documented By: ROXANE Naloxone HCl (Naloxone Hcl 0.4 Mg/Ml Vial) 0.04 mg IVPUSH Q5M PRN PRN Reason: Excessive sedation or RR < 8 Nystatin (Nystatin Powder 15 Gm Bottle) 1 appl TOPICAL TID [facility]; Protocol Ondansetron HCl (Ondansetron Hcl 4 Mg/2 Ml Vial) 4 mg IVPUSH Q6H PRN PRN Reason: Nausea and Vomiting Last Admin: 08/20/25 11:11 Dose: 4 mg Documented By: SOTO Pantoprazole Sodium (Pantoprazole Sodium 40 Mg/10 Ml Vial) 40 mg IVPUSH DAILY@0630 [facility] Last Admin: 08/20/25 05:37 Dose: 40 mg Documented By: ANDREW Rivaroxaban (Rivaroxaban 20 Mg Tablet) 20 mg PO DAILY [facility] Last Admin: 08/20/25 08:36 Dose: 20 mg Documented By: ROXANE Sodium Chloride (0.9 % Sodium Chloride Flush 3 Ml Syringe) 3 ml IVFLUSH QSHIFT [facility] Last Admin: 08/20/25 08:38 Dose: 3 ml Documented By: ROXANE Labs 08/18/25 08:35 08/18/25 08:35 Labs: Laboratory Results - last 24 hr 08/19/25 08/19/25 08/20/25 16:25 19:47 07:26 POC Glucose 181 H 188 H 196 H 08/20/25 11:20 POC Glucose 173 H Microbiology Microbiology Results: Microbiology 08/14/25 08:54 Blood Culture - Final Blood - Venous No growth after 5 days. 08/14/25 08:44 Blood Culture - Final Blood - Venous No growth after 5 days. Assessment and Plan (1) Ischemic bowel disease: Status: Acute (2) NSTEMI (non-ST elevated myocardial infarction): Status: Acute Plan 64-year-old male with a past medical history of multiple prior abdominal surgeries, hypertension, diabetes mellitus, and ischemic bowels on Xarelto, who presented to the emergency department with abdominal pain and vomiting for the past three days foudn to have NSTEMI NSTEMI Likely Type 2 from overall ischemia and HTN urgency No EKG changes to suggest ACS Keep on Tele Echo EF 50-55%, no significant RWMA Cardiology following fully anticoagulated on Lovenox x 72hrs, transitioned back to xarelto Continue Metoprolol, aspirin imdur discontinued Hold ezetimibe Chronic Mesenteric ischema, acute Ischemic colitis vs gastritis CT scan showing Equivocal hypoperfusion of the right and middle distal colonic branches of the SMA. Can not exclude mild colitis conservative measures with IVF, pain control and bowel rest continue Ceftriaxone and Flagyl, on day #6 Vascular surgery consultation> baseline chronic ischemia, mainstay statin, anticoagulation, avoid hypotension Gen surg consultation>no surgical intervention seen by GI, s/p EGD> esophagus with focal esophagitis at GE junction, moderate diffuse gastritis. No clear etiology for nausea and vomiting, possibly gastroparesis Lactic acidosis, acute secondary to ischemia Treated with IV fluids Uncontrolled HTN with hypertensive urgency continue metoprolol and Norvasc Imdur was discontinued Insulin-dependent diabetes with hyperglycemia sliding scale insulin per standard protocol Lantus 10 units bedtime Paroxysmal AFib metoprolol resume xarelto Diabetic neuropathy gabapentin Class I obesity weigh management Full code DVT prophylaxis - mechanical devices, xarelto Quality Stroke Does the patient have a stroke diagnosis?: No VTE Prior VTE?: No VTE Risk Level:: Medical - moderate - high VTE Device Contraindication: Treatment Not Indicated VTE Drug Contraindication: N/A - Med Ordered
[2025-08-20 15:10] VITALS: BP 157/78; PULSE 68; RESP 18; TEMP 36.2; O2SAT 99
[2025-08-20 16:26] LABS: Glucose, Whole Blood 194 mg/dL (60-115)
[2025-08-20 19:19] VITALS: BP 112/57; PULSE 72; RESP 16; TEMP 37.4; O2SAT 100
[2025-08-20 20:35] LABS: Glucose, Whole Blood 189 mg/dL (60-115)
[2025-08-20] MEDS: Insulin Glargine,Hum.rec.anlog 100 UNIT/ML 10 ML VIAL 10 UNIT SUBCUT (20:36)
[2025-08-21] VITALS: BP 110/54; PULSE 69; RESP 16; TEMP 36.4; O2SAT 98
[2025-08-21 03:49] VITALS: BP 119/64; PULSE 66; RESP 16; TEMP 36.3; O2SAT 98
[2025-08-21] MEDS: metroNIDAZOLE/NS 500 MG/100 ML PIGGYBACK 100 MG IV (05:11)
[2025-08-21 08:00] VITALS: BP 122/59; PULSE 69; RESP 18; TEMP 36.3; O2SAT 96
[2025-08-21 08:19] LABS: Glucose, Whole Blood 134 mg/dL (60-115)
[2025-08-21] MEDS: Aspirin Enteric Coated 81 MG TABLET.DR PO (08:25)
[2025-08-21] MEDS: Metoprolol Succinate ER 50 MG TAB.ER.24H PO (08:26)
[2025-08-21] MEDS: 0.9 % Sodium Chloride Flush 3 ML SYRINGE IVFLUSH (08:27)
--- NOTE | 2025-08-21 09:41 | P.DS_ITS ---
DS: Providers Provider Date of Service: 08/21/25 Date of admission: 08/14/25 16:12 Date of discharge: 08/21/25 Primary care physician: Marley Rick MD Consults: 08/14/25 16:17 Consult to General Surgery Routine Consulting Provider: [facility] General Surgeons Reason for consultation: ischemic colitis for eval and rec. 08/15/25 16:52 Consult to Gastroenterology Routine Consulting Provider: [facility] Gastroenterology Services Reason for consultation: abd pain 08/15/25 18:45 Consult to Cardiology Routine Consulting Provider: [facility] Cardiovascular Specialists Reason for consultation: Elevated trops: 194.2-->1308.9 08/15/25 22:17 Consult to Wound Care Routine Reason for consultation: skin tear 08/16/25 10:58 Consult to Vascular Surgery Routine Consulting Provider: [facility] Vascular Services Reason for consultation: mesenteric ischemia DS: Diagnosis Discharge Diagnosis (1) Ischemic bowel disease: Status: Acute (2) NSTEMI (non-ST elevated myocardial infarction): Status: Acute DS: Summary Hospital Course Hospital Course: History and physical as per admitting provider. This is a 64-year-old male with a past medical history of multiple prior abdominal surgeries, hypertension, diabetes mellitus, and ischemic bowels on Xarelto, who presented to the emergency department with abdominal pain and vomiting for the past three days. The pain is located in the epigastric and periumbilical area and is similar to his previous episode in June, when he was diagnosed with mesenteric ischemia and treated conservatively with bowel rest, IV fluids, antibiotics, and anticoagulation. He reports multiple episodes of vomiting, approximately 4?5 times daily, with the last bowel movement yesterday, described as normal. He denies hematemesis, melena, or hematochezia. He also denies fever or chills but notes some shortness of breath. NSTEMI Likely Type 2 from overall ischemia and HTN urgency No EKG changes to suggest ACS Echo EF 50-55%, no significant RWMA Seen and evaluated by Cardiology, we will need outpatient follow up fully anticoagulated on Lovenox x 72hrs, transitioned back to xarelto Continue Metoprolol, aspirin, continue statin imdur discontinued Chronic Mesenteric ischema, acute Ischemic colitis vs gastritis CT scan showing Equivocal hypoperfusion of the right and middle distal colonic branches of the SMA. Can not exclude mild colitis conservative measures with IVF, pain control and bowel rest Treated with Ceftriaxone and Flagyl Vascular surgery consultation> baseline chronic ischemia, mainstay statin, anticoagulation, avoid hypotension Gen surg consultation>no surgical intervention seen by GI, s/p EGD> esophagus with focal esophagitis at GE junction, moderate diffuse gastritis. No clear etiology for nausea and vomiting, possibly gastroparesis. Continue PPI Lactic acidosis, acute secondary to ischemia Treated with IV fluids and resolved Uncontrolled HTN with hypertensive urgency continue metoprolol and Norvasc Imdur was discontinued Insulin-dependent diabetes with hyperglycemia Treated with sliding scale insulin per standard protocol Continue home medications including Lantus Paroxysmal AFib metoprolol xarelto Diabetic neuropathy gabapentin Class I obesity weigh management Time Attestation Discharge Coordination Time (in mins): 45 Quality: Safe Use of Opioids Does Pt have an Active Cancer Diagnosis on the Problem List?: No Quality: Stroke Does the patient have a stroke diagnosis?: No Physical Exam Exam: Exam: Appearing in no acute distress head is normocephalic atraumatic eyes pupils are PERRLA sclera is anicteric mouth throat mucous membranes are intact and moist neck is supple no lymphadenopathy, no JVD noted lung sounds are clear to auscultation heart regular rate rhythm, clear S1, S2 positive bowel sounds, abdomen is soft, nontender neuro patient is alert x3, no focal deficits Vital Signs: Vital Signs: Last Vital Signs Temp 97.4 F 08/21/25 08:00 Pulse 69 08/21/25 08:00 Resp 18 08/21/25 08:00 BP 122/59 L 08/21/25 08:00 Pulse Ox 96 08/21/25 08:00 O2 Del Method Room Air 08/21/25 08:00 BMI result Body Mass Index 34.9 DS: Data Data Completed and Pending Completed studies during hospitalization [Text1]: Procedures Detachment at Left 1st Toe, Complete, Open Approach (01/03/22) Drainage of Pelvic Region Subcutaneous Tissue and Fascia, Open Approach (04/30/23) Fluoroscopy of Left Lower Extremity Arteries using High Osmolar Contrast (08/04/22) Fluoroscopy of Right Subclavian Vein using Low Osmolar Contrast, Guidance (08/04/22) Insertion of Infusion Device into Right Subclavian Vein, Percutaneous Approach (08/04/22) Insertion of Infusion Device into Superior Vena Cava, Percutaneous Approach (01/20/22) Ultrasonography of Superior Vena Cava, Guidance (01/03/22) Labs on day of discharge: Laboratory Results - last 24 hr 08/20/25 08/20/25 08/20/25 11:20 16:22 20:28 POC Glucose 173 H 194 H 189 H 08/21/25 07:36 POC Glucose 134 H Discharge Plan Discharge Anticipated Discharge Date/Time: 08/21/25 09:34 Patient Disposition: Home, Self-Care Discharge Diagnosis: NSTEMI Chronic mesenteric ischemia acute ischemic colitis Gastritis/gastroparesis Referrals: Marley Rick MD [Primary Care Provider, Internal Medicine] - 1 Week Discharge Medications: New omeprazole 20 mg capsule,delayed release(DR/EC) 20 mg PO DAILY Qty: 30 0RF Continued (DME) jw Molina See Rx Instructions .Route Qty: 1 0RF Rx Instructions: As directed (DME) Aircast off loading boot Kit See Rx Instructions .Route Qty: 1 0RF Rx Instructions: As directed (DME) elastic bandage 6 X 1.8 -yard bandage See Rx Instructions .Route Qty: 6 0RF Rx Instructions: As directed (DME) gauze bandage [Band-Aid Gauze Pads] 4 X 4 bandage See Rx Instructions .Route Qty: 25 3RF Rx Instructions: As directed (DME) sterile gauze 4x4 See Rx Instructions .Route .MEDSUPPLY Qty: 40 3RF Rx Instructions: Apply to left foot wound every other day (DME) calcium alginate ag 4x4 pad See Rx Instructions .Route .MEDSUPPLY Qty: 5 2RF Rx Instructions: Apply to wound beds every other day insulin glargine [Lantus U-100 Insulin] 100 unit/mL solution 10 unit subcut BEDTIME losartan 25 mg tablet 25 mg PO DAILY gabapentin 300 mg capsule 300 mg PO TID loratadine 10 mg tablet 10 mg PO DAILY ezetimibe 10 mg tablet 10 mg PO BEDTIME rosuvastatin 40 mg tablet 40 mg PO BEDTIME meclizine 25 mg tablet 25 mg PO TID PRN (Reason: Dizziness Or Vertigo) (DME) jw Molina See Rx Instructions .Route Qty: 1 0RF Rx Instructions: As directed aspirin 81 mg tablet,delayed release (DR/EC) 81 mg PO DAILY furosemide 20 mg tablet 20 mg PO DAILY metoprolol succinate 25 mg tablet extended release 24 hr 25 mg PO DAILY insulin lispro 100 unit/mL solution See Protocol subcut QIDACHS Protocol: Insulin Correction Scale Less than or equal to 110 ---- Give (units): 0 111 to 150 Give (units): 0 151 to 200 Give (units): 2 201 to 250 Give (units): 4 251 to 300 Give (units): 6 301 to 350 Give (units): 8 Greater than 350 Give (units): 10 Call MD if Blood Glucose > : 350 Xarelto 20 mg tablet 20 mg PO DAILY@1700 insulin glargine [Lantus U-100 Insulin] 100 unit/mL solution 8 unit SUBCUT DAILY oxycodone 10 mg tablet 10 mg PO Q4H PRN (Reason: Pain) Qty: 10 0RF Gvoke HypoPen 2-Pack 1 mg/0.2 mL auto-injector 1 mg SUBCUT ONCE PRN (Reason: Hypoglycemia) pantoprazole 40 mg tablet,delayed release (DR/EC) 40 mg PO BID@0630,1630 ondansetron 4 mg tablet,disintegrating 4 mg PO Q8H PRN (Reason: Nausea And Vomiting) venlafaxine 100 mg tablet 100 mg PO BID metoclopramide HCl [Reglan] 10 mg tablet 10 mg PO Q8H PRN (Reason: nausea and vomiting) Qty: 90 0RF Discontinued isosorbide mononitrate 30 mg tablet extended release 24 hr 30 mg PO DAILY Discharge Orders: Discharge Order (Routine); Ordered 08/21/25 Ordered By: Yael Lopez Diet: Advance to usual diet Activity on Discharge: As tolerated Stand Alone Forms: Patient Portal Discharge page Print Language: Luxembourgish Care Plan Goals: Follow up with Cardiology as needed Health Concerns: NSTEMI Chronic mesenteric ischemia acute ischemic colitis Gastritis/gastroparesis Plan of Treatment: Follow up with primary care provider as needed Take all medications as prescribed Assessment: See discharge summary
--- NOTE | 2025-08-21 09:45 | MHC.CM.PN ---
Patient has been medically cleared for dc to home today, self care.
[2025-08-21 12:00] VITALS: BP 137/72; PULSE 67; RESP 18; TEMP 36.1; O2SAT 100
[2025-08-21 12:07] LABS: Glucose, Whole Blood 224 mg/dL (60-115)
== END 2025-08-21 12:21 | disposition home or self-care (01) | DRG 246 ==
LOC: HO.ED 08:29 → HO.EDOVER 16:33 → HO.IMC 08-15 19:41
PROVIDERS: Physician Assistant Medical; Student in an Organized Health Care Education/Training Program; Admitting Provider Internal Medicine Gastroenterology; Emergency Provider Emergency Medicine; PCP Internal Medicine; Visit Provider Nurse Practitioner Acute Care
PROC: 0DJ08ZZ Inspection of Upper Intestinal Tract, Via Natural or Artificial Opening Endoscopic (ICD-10-PCS; CPT 43235; principal; 2025-08-19 13:50)
DX: K55.031 Focal (segmental) acute (reversible) ischemia of large intestine (principal); I21.A1 Myocardial infarction type 2; E87.21 Acute metabolic acidosis; K55.1 Chronic vascular disorders of intestine; Z87.891 Personal history of nicotine dependence; E66.813 Obesity, class 3; Z71.3 Dietary counseling and surveillance; Z68.34 Body mass index [BMI] 34.0-34.9, adult; E11.65 Type 2 diabetes mellitus with hyperglycemia; I25.10 Atherosclerotic heart disease of native coronary artery without angina pectoris; I48.0 Paroxysmal atrial fibrillation; K20.90 Esophagitis, unspecified without bleeding; E11.43 Type 2 diabetes mellitus with diabetic autonomic (poly)neuropathy; K31.84 Gastroparesis; E11.40 Type 2 diabetes mellitus with diabetic neuropathy, unspecified; I16.0 Hypertensive urgency; Z95.1 Presence of aortocoronary bypass graft; Z79.4 Long term (current) use of insulin; Z79.01 Long term (current) use of anticoagulants; Z79.82 Long term (current) use of aspirin; Z79.899 Other long term (current) drug therapy
CPT/HCPCS: 36415; 74174; 74177; 80048; 80053; 80307; 81001; 82010; 82550; 82803; 82947; 83605; 83690; 83735; 84484; 85025; 85027; 85652; 86140; 87040; 93005; 93306; 99285; J0131; J0696; J0737; J1171; J1200; J1650; J1836; J2003; J2405; J2470; J2704; J2765; J3360; J7120; Q9957; Q9967

== ENCOUNTER → 2025-08-14 06:22 | Outpatient (BNV) | payer OTHER, SELFPAY | PROVIDERS: Emergency Provider Emergency Medicine; PCP Internal Medicine; Visit Provider Internal Medicine Cardiovascular Disease | DX: R00.0 Tachycardia, unspecified (principal) | CPT/HCPCS: 93010 ==

== ENCOUNTER → 2025-08-14 08:21 | Outpatient (BNV) | payer OTHER, SELFPAY | PROVIDERS: Emergency Provider Emergency Medicine; PCP Internal Medicine; Visit Provider Radiology Diagnostic Radiology | DX: R10.9 Unspecified abdominal pain (principal); I70.0 Atherosclerosis of aorta | CPT/HCPCS: 74174 ==

== ENCOUNTER 2025-08-14 16:12 | Outpatient (BNV) | payer OTHER, SELFPAY | END 2025-08-16 10:30 | PROVIDERS: Admitting Provider Student in an Organized Health Care Education/Training Program; Emergency Provider Emergency Medicine; PCP Internal Medicine; Visit Provider Internal Medicine Cardiovascular Disease | DX: I51.89 Other ill-defined heart diseases (principal); R79.89 Other specified abnormal findings of blood chemistry | CPT/HCPCS: 93010; 93306 ==

== ENCOUNTER 2025-08-14 16:12 | Outpatient (BNV) | payer OTHER, SELFPAY | END 2025-08-17 13:53 | PROVIDERS: Admitting Provider Student in an Organized Health Care Education/Training Program; Emergency Provider Emergency Medicine; PCP Internal Medicine; Visit Provider Radiology Diagnostic Radiology | DX: R10.9 Unspecified abdominal pain (principal); R11.2 Nausea with vomiting, unspecified | CPT/HCPCS: 74177 ==

== ENCOUNTER → 2025-08-14 16:12 | Outpatient (BNV) | payer OTHER, SELFPAY | PROVIDERS: Admitting Provider Student in an Organized Health Care Education/Training Program; Emergency Provider Emergency Medicine; PCP Internal Medicine; Visit Provider Surgery Vascular Surgery | DX: K55.9 Vascular disorder of intestine, unspecified (principal) | CPT/HCPCS: 99222 ==

== ENCOUNTER → 2025-08-14 16:12 | Outpatient (BNV) | payer OTHER, SELFPAY | PROVIDERS: Admitting Provider Student in an Organized Health Care Education/Training Program; Emergency Provider Emergency Medicine; PCP Internal Medicine; Visit Provider Internal Medicine Cardiovascular Disease | DX: I21.4 Non-ST elevation (NSTEMI) myocardial infarction (principal) | CPT/HCPCS: 99222 ==

== ENCOUNTER → 2025-08-14 16:12 | Outpatient (BNV) | payer OTHER, SELFPAY | PROVIDERS: Admitting Provider Student in an Organized Health Care Education/Training Program; Emergency Provider Emergency Medicine; PCP Internal Medicine; Visit Provider Internal Medicine | DX: R10.13 Epigastric pain (principal); K55.9 Vascular disorder of intestine, unspecified | CPT/HCPCS: 99223; 99232 ==

== ENCOUNTER → 2025-08-14 16:12 | Outpatient (BNV) | payer OTHER, SELFPAY | PROVIDERS: Admitting Provider Student in an Organized Health Care Education/Training Program; Emergency Provider Emergency Medicine; PCP Internal Medicine | DX: R10.13 Epigastric pain (principal); K55.9 Vascular disorder of intestine, unspecified | CPT/HCPCS: 99222; 99232 ==

== ENCOUNTER → 2025-08-14 16:12 | Outpatient (BNV) | payer OTHER, SELFPAY | PROVIDERS: Admitting Provider Student in an Organized Health Care Education/Training Program; Emergency Provider Emergency Medicine; PCP Internal Medicine; Visit Provider Student in an Organized Health Care Education/Training Program | DX: K55.9 Vascular disorder of intestine, unspecified (principal); I21.4 Non-ST elevation (NSTEMI) myocardial infarction | CPT/HCPCS: 99223; 99232 ==

== ENCOUNTER 2025-08-28 15:31 | Inpatient (IN) | payer OTHER, SELFPAY ==
--- OUTSIDE RECORDS SUMMARY | 2025-08-25 22:59 | XMS_ITS | Continuity of Care Document ---
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 Name Role Phone Prabhjot LEIJA, Marley Primary Care Physician [id number] Date(s): 07/26/25 - 08/25/[address] [address]- Encounter Type: Triage Allergies, Adverse Reactions, Alerts Substance Criticality Severity Reaction Reaction Severity Status clindamycin Rash Active morphine Active Lutz Pepper 1 Active lisinopril Unable to assess criticality Persistent Mild cough Active metformin Unable to assess criticality Persistent Severe diarrhea Active Phenergan Active cephalexin monohydrate rash Active 1Green peppers cause rash Immunizations Given and Recorded Vaccine Date Status Refusal Reason influenza virus vaccine, inactivated 07/12/24 Mehul rded influenza virus vaccine, inactivated 01/21/24 Mehul rded influenza virus vaccine, inactivated 08/04/22 Mehul rded influenza virus vaccine, inactivated 07/27/21 Mehul rded influenza virus vaccine, inactivated 07/10/20 Mehul rded influenza virus vaccine, inactivated 1 08/06/19 Gi destinee influenza virus vaccine, inactivated 07/01/18 Mehul rded influenza virus vaccine, inactivated 2 08/12/17 Gi destinee influenza virus vaccine, inactivated 07/02/17 Mehul rded influenza virus vaccine, inactivated 01/13/17 Give n influenza virus vaccine, inactivated 06/05/16 Mehul rded influenza virus vaccine, inactivated 01/26/16 Give n influenza virus vaccine, inactivated 07/26/14 Give n influenza virus vaccine, inactivated 08/05/13 Give n influenza virus vaccine, inactivated 07/29/12 Give n influenza virus vaccine, inactivated 08/17/11 Give n influenza virus vaccine, inactivated 07/25/10 Give n influenza virus vaccine, inactivated 3 07/22/09 Gi destinee influenza virus vaccine, inactivated 08/19/08 Give n influenza virus vaccine, inactivated 09/05/07 Give n influenza virus vaccine, inactivated 09/29/06 Give n SARS-CoV-2(COVID-19)mRNA-LNP vac([id number]) 07/12/24 Recorded SARS-CoV-2(COVID-19)mRNA-LNP vac([id number]) 01/21/24 Recorded pneumococcal 20-valent conjugate vaccine 04/14/24 Recorded zoster vaccine, inactivated 03/31/23 Recorded zoster vaccine, inactivated 01/21/23 Recorded zoster vaccine, inactivated 07/10/20 Recorded [id number] 12y+ bivalent booster vax 4 11/12/22 Given SARS-CoV-2 mRNA ([id number]) vax 06/17/22 Recorded SARS-CoV-2 (COVID-19) mRNA BNT-162b2 vac 5 10/04/21 Given SARS-CoV-2 (COVID-19) mRNA BNT-162b2 vac 02/02/21 Given SARS-CoV-2 (COVID-19) mRNA BNT-162b2 vac 01/12/21 Given tetanus/diphtheria/pertussis, acel(Tdap) 01/13/17 Given tetanus/diphtheria/pertussis, acel(Tdap) 02/27/16 Recorded tetanus/diphtheria/pertussis, acel(Tdap) 01/07/08 Given pneumococcal 23-valent vaccine 01/17/16 Recorded pneumococcal 23-valent vaccine 09/29/10 Given Pneumococcal Vaccine (oldterm) 09/03/02 Given 1Result Comment: [facility]U [facility] 40885-306-85 2Result Comment: [facility] 40337-734-46 3Admin Note: VIS06/06/09 4Result Comment: [facility]# [id number] 5Result Comment: [facility]# [address]-5 Medications Aspirin Low Dose 81 mg oral delayed release tablet 1 tablet, By Mouth, Daily, # 90 tablet, 3 Refills, Maintenance, 03/01/25 4:28:00 PM EDT, [facility]/pharmacy#[id number], 174, cm, 03/01/25 16:01:00 EDT, Height, 95.5, kg, 10/31/24 20:59:00 EST, Dry Weight Start Date: 03/01/25 Stop Date: 03/31/25 Status: Ordered Medication Dispense Status: Completed Quantity: 90.0 Unit: tablet Total Allowed Fills: 4 Fills Dispensed: 0 ezetimibe 10 mg oral tablet 1 tablet = 10 mg, By Mouth, Daily, # 90 tablet, 3 Refills, Maintenance, 03/01/25 4:27:00 PM EDT, Tablet, [facility]/pharmacy #[id number], Partial fill upon patient request if the prescription is for a schedule II opioid drug., 174, cm, 03/01/25 16:01:00 EDT, Height, 95.5, kg, 10/31/24 20:59:00 EST, Dry Weight Start Date: 03/01/25 Status: Ordered Medication Dispense Status: Completed Quantity: 90.0 Unit: tablet Total Allowed Fills: 4 Fills Dispensed: 0 Freestyle Chantelle 3 Plus Sensors Freestyle Chantelle 3 Plus Sensors, See Instructions, # 2 each, Refills 6, Tot. Refills 6, Maintenance,change every 15 days. E11.9, 03/16/25 3:26:00 PM EDT, Supply, 174, cm, 03/16/25 14:18:00 EDT, Height, 109.5, kg, 03/09/25 17:01:00 EDT, Dry Weight Start Date: 03/16/25 Status: Ordered Medication Dispense Status: Completed Quantity: 2.0 Unit: each Total Allowed Fills: 7 Fills Dispensed: 0 Freestyle Chantelle 3 Warren Freestyle Chantelle 3 Warren, See Instructions, # 1 each, Refills 0, Tot. Refills 0, Maintenance, use to monitor BGs. E11.9, 06/03/25 4:07:00 PM EDT, Supply, 174, cm, 05/09/25 10:56:00 EDT, Height, 109.5, kg, 03/09/25 17:01:00 EDT, Dry Weight Start Date: 06/03/25 Status: Ordered Medication Dispense Status: Completed Quantity: 1.0 Unit: each Total Allowed Fills: 1 Fills Dispensed: 0 FREESTYLE CHANTELLE 3 READER FREESTYLE CHANTELLE 3 READER, See Instructions, # 1 Unknown, 0 Refills, Maintenance, USE TO MONITOR BLOOD SUGAR, 07/15/25 4:20:00 PM EDT, 174, cm, 06/23/25 12:32:00 EDT, Height, 109.5, kg, 03/09/25 17:01:00 EDT, Dry Weight Start Date: 07/15/25 Status: Ordered Medication Dispense Status: Completed Quantity: 1.0 Unit: Unknown Total Allowed Fills: 1 Fills Dispensed: 0 Freestyle Lite Lancets See Instructions, # 150 each, Refills 5, Tot. Refills 5, Maintenance, use as directed for Type 2 Diabetes Mellitus tocheck BGs 5x daily. E11.9, 04/19/25 8:42:00 AM EDT, Supply, 174, cm, 03/16/25 14:18:00 EDT, Height, 109.5, kg, 03/09/25 17:01:00 EDT, Dry Weight Start Date: 04/19/25 Stop Date: 10/16/25 Status: Ordered Medication Dispense Status: Completed Quantity: 150.0 Unit: each Total Allowed Fills: 6 Fills Dispensed: 0 FREESTYLE LITE TEST STRIP FREESTYLE LITE TEST STRIP, See Instructions, # 300 Unknown, 1 Refills, Maintenance, USED TO TEST BLOOD SUGAR THREE TIMES A DAY, 07/26/25 12:56:00 PM EDT, 174, cm, 06/23/25 12:32:00 EDT, Height, 109.5,kg, 03/09/25 17:01:00 EDT, Dry Weight Start Date: 07/26/25 Status: Ordered Medication Dispense Status: Completed Quantity: 300.0 Unit: Unknown Total Allowed Fills: 1 Fills Dispensed: 0 Freestyle Lite Test Strips See Instructions, # 150 each, Refills 5, Tot. Refills 5, Maintenance, use as directed for Type 2 Diabetes Mellitus to check BGs 5x daily. E11.9, 04/19/25 8:41:00 AM EDT, Supply, 174, cm, 03/16/25 14:18:00 EDT, Height, 109.5, kg, 03/09/25 17:01:00 EDT, Dry Weight Start Date: 04/19/25 Stop Date: 10/16/25 Status: Ordered Medication Dispense Status: Completed Quantity: 150.0 Unit: each Total Allowed Fills: 6 Fills Dispensed: 0 furosemide 20 mg oral tablet 20 mg, 1, tablet, By Mouth, Daily, # 90 tablet, Refills 3, Tot. Refills 3, Maintenance, 03/01/25 4:27:00 PM EDT, Route to Pharmacy Electronically, [facility]/pharmacy #[id number], Partial fill upon patient request if the prescription is for a schedule II opioid drug., 174, cm, 03/01/25 16:01:00 EDT, Height, 95.5,kg, 10/31/24 20:59:00 EST, Dry Weight Start Date: 03/01/25 Status: Ordered Medication Dispense Status: Completed Quantity: 90.0 Unit: tablet Total Allowed Fills: 4 Fills Dispensed: 0 gabapentin 300 mg oral capsule 1, capsule, By Mouth, 3 times a day, # 90 capsule, Refills 5, Maintenance, 07/27/25 10:05:00 AM EDT,Route to Pharmacy Electronically, [id number], 174, cm, 06/23/25 12:32:00 EDT, Height, 109.5, kg, 03/09/25 17:01:00 EDT, Dry Weight Start Date: 07/27/25 Stop Date: 10/25/25 Status: Ordered Medication Dispense Status: Completed Quantity: 90.0 Unit: capsule Total Allowed Fills: 1 Fills Dispensed: 0 Gvoke HypoPen 1 mg/0.2 mL subcutaneous solution See Instructions, 0.2 mL Subcutaneous Injection Once for episode of severe hypoglycemia. E11.9, # 2each, 3 Refills, Soft Stop, 03/16/25 3:28:00 PM EDT, Solution, [facility]/pharmacy #[id number], Partial fill uponpatient request if the prescription is for a schedule II opioid drug., 174, cm, 03/16/25 14:18:00 EDT, Height, 109.5, kg, 03/09/25 17:01:00 EDT, Dry Weight Start Date: 03/16/25 Status: Ordered Medication Dispense Status: Completed Quantity: 2.0 Unit: each Total Allowed Fills: 4 Fills Dispensed: 0 insulin lispro 100 u/ml subcutaneous injection See Instructions, INJECT 4-16 UNITS SUBCUTANEOUSLY 3 TIMES A DAY BEFORE MEALS. PLEASE USE PER THE SLIDING SCALE. MDD 48 units. E11.9, # 20 mL, 5 Refills, Maintenance, 03/16/25 3:19:00 PM EDT, [facility]pharm[facility] #[id number], 174, cm, 03/16/25 14:18:00 EDT, Height, 109.5, kg, 03/09/25 17:01:00 EDT, Dry Weight Start Date: 03/16/25 Status: Ordered Medication Dispense Status: Completed Quantity: 20.0 Unit: mL Total Allowed Fills: 6 Fills Dispensed: 0 Insulin Syringe, BD Ultra-Fine 0.5 cc 31 G x 8 mm (5/16in) See Instructions, # 150 each, Refills 5, Tot. Refills 5, Maintenance, use as directed for Type 2 Diabetes Mellitus to give insulin 5x daily. E11.9, 03/16/25 3:25:00 PM EDT, Supply, 174, cm, 03/16/25 14:18:00 EDT, Height, 109.5, kg, 03/09/25 17:01:00 EDT, Dry Weight Start Date: 03/16/25 Stop Date: 09/12/25 Status: Ordered Medication Dispense Status: Completed Quantity: 150.0 Unit: each Total Allowed Fills: 6 Fills Dispensed: 0 isosorbide mononitrate 30 mg oral tablet, extended release 1 tablet = 30 mg, By Mouth, Daily in AM, # 90 tablet, 3 Refills, Maintenance, 03/01/25 4:27:00 PM EDT, ER Tablet, [id number], Partial fill upon patient request if the prescription is for a schedule II opioid drug., 174, cm, 03/01/25 16:01:00 EDT, Height, 95.5, kg, 10/31/24 20:59:00 EST, Dry Weight Start Date: 03/01/25 Status: Ordered Medication Dispense Status: Completed Quantity: 90.0 Unit: tablet Total Allowed Fills: 4 Fills Dispensed: 0 Lantus 100 u/ml subcutaneous solution See Instructions, Take Lantus 8 units daily at bedtime, and Take Lantus 10 units daily in the AM. E11.9, # 10 mL, 5 Refills, Maintenance, 03/16/25 3:23:00 PM EDT, [facility]/pharmacy #[id number], 174, cm, 03/16/2514:18:00 EDT, Height, 109.5, kg, 03/09/25 17:01:00 EDT, Dry Weight Start Date: 03/16/25 Status: Ordered Medication Dispense Status: Completed Quantity: 10.0 Unit: mL Total Allowed Fills: 6 Fills Dispensed: 0 loratadine 10 mg oral tablet 1, tablet, By Mouth, Daily, # 90 tablet, Refills 1, Maintenance, 07/06/25 8:54:00 AM EDT, Route to Pharmacy Electronically, [id number], 174, cm, 06/23/25 12:32:00 EDT, Height, 109.5, kg, 03/09/2517:01:00 EDT, Dry Weight Start Date: 07/06/25 Status: Ordered Medication Dispense Status: Completed Quantity: 90.0 Unit: tablet Total Allowed Fills: 1 Fills Dispensed: 0 losartan 25 mg oral tablet 25 mg, 1, tablet, By Mouth, Daily, # 30 tablet, Refills 0, Tot. Refills 0, Maintenance, 03/01/25 4:28:00 PM EDT, Route to Pharmacy Electronically, [facility]/pharmacy #[id number], Partial fill upon patient request if the prescription is for a schedule II opioid drug., 174, cm, 03/01/25 16:01:00 EDT, Height, 95.5,kg, 10/31/24 20:59:00 EST, Dry Weight Start Date: 03/01/25 Status: Ordered Medication Dispense Status: Completed Quantity: 30.0 Unit: tablet Total Allowed Fills: 1 Fills Dispensed: 0 meclizine 25 mg oral tablet 1 tablet, By Mouth, 3 times a day, PRN NEEDED FOR DIZZINESS FOR, # 270 tablet, 1 Refills, Maintenance, 03/22/25 1:12:00 PM EDT, [id number], 174, cm, 03/16/25 14:18:00 EDT, Height, 109.5, kg, 03/09/25 17:01:00 EDT, Dry Weight Start Date: 03/22/25 Stop Date: 06/20/25 Status: Ordered Medication Dispense Status: Completed Quantity: 270.0 Unit: tablet Total Allowed Fills: 1 Fills Dispensed: 0 metoclopramide 10 mg oral tablet 1 tablet, By Mouth, Every 8 hours, PRN NEEDED FOR NAUSEA AND VOMITING, # 90 tablet, 0 Refills, Maintenance, 07/08/25 9:55:00 AM EDT, [id number], 174, cm, 06/23/25 12:32:00 EDT, Height, 109.5, kg, 03/09/25 17:01:00 EDT, Dry Weight Start Date: 07/08/25 Status: Ordered Medication Dispense Status: Completed Quantity: 90.0 Unit: tablet Total Allowed Fills: 1 Fills Dispensed: 0 Metoprolol Succinate ER 25 mg oral tablet, extended release 25 mg, 1, tablet, By Mouth, Daily, # 90 tablet, Refills 3, Tot. Refills 3, Maintenance, 03/01/25 4:27:00 PM EDT, Route to Pharmacy Electronically, [facility]/pharmacy #[id number], Partial fill upon patient request if the prescription is for a schedule II opioid drug., 174, cm, 03/01/25 16:01:00 EDT, Height, 95.5,kg, 10/31/24 20:59:00 EST, Dry Weight Start Date: 03/01/25 Status: Ordered Medication Dispense Status: Completed Quantity: 90.0 Unit: tablet Total Allowed Fills: 4 Fills Dispensed: 0 oxyCODONE 10 mg oral tablet 1 tablet = 10 mg, By Mouth, Every 4 hours, PRN Pain , Moderate, DX: M54.5, M50.10, M51.16 Maximum 6tablets a day fill on 08/12/25, # 168 tablet, 0 Refills, Maintenance, 08/11/25 10:27:00 AM EDT, [id number], Partial fill upon patient request if the prescription is for a schedule II opioid drug., 08/12/25, 174, cm, 06/23/25 12:32:00 EDT, Height, 109.5, kg, 03/09/25 17:01:00 EDT, Dry Weight Start Date: 08/11/25 Status: Ordered Medication Dispense Status: Completed Quantity: 168.0 Unit: tablet Total Allowed Fills: 1 Fills Dispensed: 0 pantoprazole 40 mg oral delayed release tablet 1 tablet, By Mouth, 2 times a day before breakfast & supper, # 180 tablet, 1 Refills, Maintenance, 02/01/25 10:04:00 AM EDT, 174, cm, 01/25/25 14:37:00 EDT, Height, 95.5, kg, 10/31/24 20:59:00 EST,Dry Weight Start Date: 02/01/25 Status: Ordered Medication Dispense Status: Completed Quantity: 180.0 Unit: tablet Total Allowed Fills: 1 Fills Dispensed: 0 rosuvastatin 40 mg oral tablet 1 tablet = 40 mg, By Mouth, Daily, # 90 tablet, 3 Refills, Maintenance, 03/01/25 4:28:00 PM EDT, Tablet, [id number], Partial fill upon patient request if the prescription is for a schedule II opioid drug., 174, cm, 03/01/25 16:01:00 EDT, Height, 95.5, kg, 10/31/24 20:59:00 EST, Dry Weight Start Date: 03/01/25 Status: Ordered Medication Dispense Status: Completed Quantity: 90.0 Unit: tablet Total Allowed Fills: 4 Fills Dispensed: 0 venlafaxine 100 mg oral tablet 1 tablet, By Mouth, 2 times a day, # 180 tablet, 1 Refills, Maintenance, 08/02/25 5:24:00 PM EDT, [id number], 174, cm, 06/23/25 12:32:00 EDT, Height, 109.5, kg, 03/09/25 17:01:00 EDT, Dry Weight Start Date: 08/02/25 Status: Ordered Medication Dispense Status: Completed Quantity: 180.0 Unit: tablet Total Allowed Fills: 1 Fills Dispensed: 0 Xarelto 20 mg oral tablet 1 tablet = 20 mg, By Mouth, Daily before dinner, # 90 tablet, 3 Refills, Maintenance, 03/01/25 4:28:00 PM EDT, Tablet, [id number], Partial fill upon patient request if the prescription is for aschedule II opioid drug., 174, cm, 03/01/25 16:01:00 EDT, Height, 95.5, kg, 10/31/24 20:59:00 EST, Dry Weight Start Date: 03/01/25 Status: Ordered Medication Dispense Status: Completed Quantity: 90.0 Unit: tablet Total Allowed Fills: 4 Fills Dispensed: 0 Problem List Condition Confirmation Course Effective Dates Status H ealth Status Informant A-fib Confirmed Active Chronic pain Confirmed Active CAD in [place] artery Confirmed Active Diabetic gastroparesis Confirmed Active Environmental allergies Confirmed Active Chronic GERD Confirmed Active S/P ICD (internal cardiac defibrillator) procedure Confirmed Active Type 2 diabetes mellitus with hyperglycemia Confirmed Active Hyperlipidemia associated with type 2 diabetes mellitus Confirmed Active Hypertension associated with type 2 diabetes mellitus Confirmed Active Insulin dependent type 2 diabetes mellitus Confirmed Active Diabetic neuropathy Confirmed Active PVD (peripheral vascular disease) Confirmed Active Recurrent major depression Confirmed Active Severe obesity (BMI 35.0-39.9) with comorbidity Confirmed Active Patient Care team information Care Team Personnel Name: Elida Pal RN Position: [facility] RN Member Role: Primary Care Nurse Name: Twyla Barrios NP Position: [facility] PCO Associate Professional Member Role: Primary Care Nurse Address: [address] [place] [address] Telecom: Name: Marley Rick MD Position: [facility] Physician - Primary Care Member Role: PCP Address: [address] [place] [id number] Telecom: Care Team Related Persons Name: HERNESTO FUENTES Insurance Providers Guarantor name: KARELY FUENTES Health Plan Information #: 1 Payer: [employer] Payer Identifier: PAUL Member Number: [id number] Group Number: [id number] Subscriber Identifier: NA Relationship to Subscriber: self Coverage Type: Medicaid (Managed Care) Coverage Verification Date: NA Telecom: NA Address:
[2025-08-28] VITALS (7 sets, daily range): BP systolic 118–185; BP diastolic 59–110; PULSE 82–111; RESP 14–20; TEMP 36.4–37; O2SAT 97–98; BMI 34.4
--- NOTE | ~2025-08-28 | XR_ITS ---
CLINICAL HISTORY: post line placement Chest Radiographs, AP Comparison: CR/SR - XR CHEST 1 VIEW - 02/03/25 11:58 EDT CR/SR - XR CHEST 1 VIEW - 10/13/24 16:36 EST Findings: No cardiomegaly. Normal mediastinal contours. Unchanged mild elevation of the right hemidiaphragm. No pneumothorax. No opacity. No pleural effusion. No acute findings in the upper abdomen. No acute fracture. Healed right rib fractures. Status post ACDF. Intact hardware. Status post median sternotomy. Fractured cephalad median sternotomy wires, unchanged. Impression: No acute findings. No identified placed line. This document has been electronically signed by: Omayra Redmond MD on 08/28/2025 20:22:47
--- NOTE | ~2025-08-28 | CT_ITS ---
CLINICAL HISTORY: hx of ischemic colitis *cta attempted, iv failed, order changed to w/o* CT abdomen and pelvis without contrast Comparison: CT/REG/SR - CT ABDOMEN PELVIS W IV CON - 08/17/25 23:[address]/REG/SR - CT ANGIO ABDOMEN PELVIS - 08/14/25 10:18 EDT Findings: No consolidation at the lung bases. Subsegmental atelectasis versus linear scarring. Trace left lung base pleural thickening. Status post cholecystectomy. Unremarkable bladder. Pancreatic lipomatosis. The other solid organs are normal. Small hiatal hernia. Duodenal diverticula. No bowel wall thickening or dilation. A normal appendix is identified. No pneumatosis or portal venous gas. No aneurysm. Severe calcified atherosclerotic disease. No lymphadenopathy. No ascites. Bilateral anterior abdominal wall lower quadrant skin thickening and infiltration of the subcutaneous fat with calcifications secondary to injections. No acute osseous abnormality. Remote, healed right rib fractures. Status post laminectomies and posterior fusion L4 through S1. Bilateral total hip arthroplasties Intact hardware. Impression: No acute findings. This document has been electronically signed by: Omayra Redmond MD on 08/28/2025 19:35:32
--- NOTE | 2025-08-28 16:22 | ED.ABDPAIN ---
HPI - Abdominal Pain General Chief Complaint: Abdominal Pain Stated Complaint: vomiting,abd pain, ?sepsis Time Seen by Provider: 08/28/25 16:15 Source: patient and EMS Mode of arrival: EMS Limitations: no limitations History of Present Illness ED Provider: HPI narrative: 64-year-old male with a history of gastroparesis, diabetes, AFib, medication noncompliance, among others presenting with epigastric abdominal pain nausea, vomiting not taking his medications due to these symptoms for the past 3 days. Related Data Home Medications ?Medication ?Instructions ?Recorded ?Confirmed ezetimibe 10 mg tablet 10 mg PO BEDTIME 01/03/22 08/14/25 gabapentin 300 mg capsule 300 mg PO TID 01/03/22 08/14/25 insulin glargine 100 unit/mL 10 unit subcut BEDTIME 01/03/22 08/14/25 subcutaneous solution (Lantus U-100 Insulin) loratadine 10 mg tablet 10 mg PO DAILY 01/03/22 08/14/25 losartan 25 mg tablet 25 mg PO DAILY 01/03/22 08/14/25 meclizine 25 mg tablet 25 mg PO TID PRN Dizziness Or 01/03/22 08/14/25 Vertigo rosuvastatin 40 mg tablet 40 mg PO BEDTIME 01/03/22 08/14/25 aspirin 81 mg tablet,delayed 81 mg PO DAILY 08/04/22 08/14/25 release furosemide 20 mg tablet 20 mg PO DAILY 11/13/22 08/14/25 metoprolol succinate 25 mg 25 mg PO DAILY 10/14/24 08/14/25 tablet,extended release 24 hr insulin lispro 100 unit/mL See Protocol subcut QIDACHS 12/16/24 08/14/25 subcutaneous solution rivaroxaban 20 mg tablet (Xarelto) 20 mg PO DAILY@1700 12/16/24 08/14/25 insulin glargine 100 unit/mL 8 unit subcut DAILY 03/23/25 08/14/25 subcutaneous solution (Lantus U-100 Insulin) glucagon 1 mg/0.2 mL subcutaneous 1 mg subcut ONCE PRN Hypoglycemia 05/26/25 08/14/25 auto-injector (Gvoke HypoPen 2-Pack) pantoprazole 40 mg tablet,delayed 40 mg PO BID@0630,1630 05/26/25 08/14/25 release ondansetron 4 mg disintegrating 4 mg PO Q8H PRN Nausea And Vomiting 07/19/25 08/14/25 tablet venlafaxine 100 mg tablet 100 mg PO BID 08/14/25 08/14/25 Previous Rx's ?Medication ?Instructions ?Recorded walker #1 ea 01/11/22 walker #1 ea 01/15/22 Band-Aid Gauze Pads 4 X 4 #25 ea 04/16/22 bandage (gauze bandage) elastic bandage 6 X 1.8 yard #6 ea 04/16/22 off loading boot (Aircast off #1 ea 04/16/22 loading boot) calcium alginate ag #5 ea 04/23/22 sterile gauze #40 ea 04/23/22 oxycodone 10 mg tablet 10 mg PO Q4H PRN Pain #10 tabs 03/29/25 metoclopramide HCl 10 mg tablet 10 mg PO Q8H PRN nausea and 05/24/25 (Reglan) vomiting #90 tabs nystatin 100,000 unit/gram topical 1 appl topical TID apply to groin 08/21/25 powder (Nystop) #30 grams omeprazole 20 mg capsule,delayed 20 mg PO DAILY #30 caps 08/21/25 release Allergies Allergy/AdvReac Type Severity Reaction Status Date / Time morphine AdvReac Intermediate Hallucinati Verified 08/28/25 15:58 ons Review of Systems Constitutional: Reports as per [facility] Past Medical History Medical History Hypertensive urgency Abdominal pain PVD (peripheral vascular disease) Gastroparesis DKA (diabetic ketoacidosis) Obesity (BMI 30-39.9) PAD (peripheral artery disease) Afib Amputation of left great toe Lower limb amputation, great toe CAD (coronary artery disease) DMII (diabetes mellitus, type 2) Orthopedic hardware present Hyperglycemia Cellulitis Asthma Diabetes Hypertension FHx: bilateral hip replacements Surgical History History of amputation of toe (07/29/22) History of amputation of great toe (01/07/22) History of back surgery History of neck surgery History of ankle surgery H/O bilateral hip replacements S/P quadruple vessel bypass Family History Family History Father Cancer of neck Mother Uterus cancer Other No family history of coronary artery disease Social History Social History Household Members: Spouse and Children Household Members Other:: 3 Housing: Condominium Are you a primary adult caregiver to a significant other at home: No Do you presently have visiting nurse or other home services: No Alcohol intake: never Comment: refused bed or chair alarm Patient Tobacco Use Status: Former Tobacco user Tobacco use type: Cigarette e-Cigarette/Vaping Use: Never Used Second Hand Smoke Exposure: No Substance Use Type: Marijuana Advance Directives: Yes Advance Directives on File: Yes Advance Directives Date on File: 07/20/25 Do you have a plan to hurt others: No Plan service: No Current occupational status: disabled Physical Exam ED Exam Exam: General: ?Appears of stated age, anxious affect ? ?PERRLA, EOMI, MMM, no scleral icterus ? Neck: Supple, no LAD ? ?CV: RRR, no obvious murmurs appreciated ? ?Resp: ?No wheezing rales rhonchi no stridor moving air well ? Abd: Bowel sounds are present, he had no tenderness in lower quadrants, tenderness in the epigastric area, negative right upper quadrant tenderness ? ?MSK: FROM, strength 5/5 all extremities ? Skin: Warm, dry, intact, no jaundice ? ?Neuro: ?Alert and oriented x3, moving upper and lower extremities symmetrically, no obvious facial asymmetry noted, cranial nerves 2-12 intact Vital Signs: Vital Signs - 24 hr 08/28/25 15:55 08/28/25 15:59 08/28/25 17:37 Temperature 97.5 F 97.5 F Pulse Rate 109 H 109 H Respiratory Rate 20 20 18 Blood Pressure 184/75 H 184/75 H Pulse Oximetry 97 97 Oxygen Delivery Method Room Air Room Air BMI result Body Mass Index 34.4 Procedures Procedure Narrative Procedure Narrative: Ultrasound Guided Peripheral Intravenous Catheter Placement Indication: Intravenous Access Location: left Vascular Location of Catheter Tip: Basilic Provider: Self I was approached by nursing staff and informed that multiple unsuccessful attempts had been made to establish IV access in the patient. The patients arm was surveyed with the ultrasound for verification of vessel collapsibility, patency, depth and caliber, as well as identification of nearby structures. The target area was prepped with chlorhexidine. A tourniquet was placed proximally on the extremity. Under real-time ultrasound guidance, an 20 G 2.25 inch IV catheter was advanced into the target vein. Dark blood was visualized in the flash chamber. The catheter was easily advanced into the vein. The catheter was evacuated of air and flushed with sterile saline. The catheter was secured in place with a tegaderm. The patient tolerated the procedure well and there were no complications. Estimated Blood Loss: 1mL Total Time for Procedure: 5min Images Stored CPT: 24733; 70036 Ultrasound Guided Peripheral Intravenous Catheter Placement Indication: Intravenous Access Location: right Vascular Location of Catheter Tip: Basilic Provider: Gold I was approached by nursing staff and informed that multiple unsuccessful attempts had been made to establish IV access in the patient. The patients arm was surveyed with the ultrasound for verification of vessel collapsibility, patency, depth and caliber, as well as identification of nearby structures. The target area was prepped with chlorhexidine. A tourniquet was placed proximally on the extremity. Under real-time ultrasound guidance, an 20 G 2.25 inch IV catheter was advanced into the target vein. Dark blood was visualized in the flash chamber. The catheter was easily advanced into the vein. The catheter was evacuated of air and flushed with sterile saline. The catheter was secured in place with a tegaderm. The patient tolerated the procedure well and there were no complications. Estimated Blood Loss: 1mL Total Time for Procedure: 5min Images Stored CPT: 72316; 30749 Central Line Placement Right IJ: Time Out Performed: Yes Patient Placed on Monitor/Pulse Ox: No MD Prep: mask Central Line Prep: Chlorhexidine scrub Local Anesthetic: lidocaine 1% Amount of anesthesia used (mL): 7 Ultrasound Used for Placement: Yes Central Line Lumen Inserted: single Post Procedure: good blood return, all ports aspirated, flushed, capped and sterile dressing applied Post Procedure X-Ray: no pneumothorax seen Patient Tolerated Procedure: well Complications: none Medical Decision Making Medical Decision Making [facility] Narrative: 4:37 PM 08/28/2025 (Dr. Bartolome Patel): Patient presenting with nausea and vomiting and the police on exam what appears to be isolated epigastric pain, he does have history of gastroparesis and he is in discomfort requesting pain medication, I am going to initiate treatment avoiding narcotics as this time as my highest differential is gastroparesis and opiates we will potentially exacerbate symptoms, another consideration is cyclic vomiting syndrome, during prior admission there was a consideration what he is ischemia, I think CT angio is the better study of choice as it will show me other intra-abdominal pathologies as well as whether there was any occlusive disease, does not sound like he has been taking his blood thinners and there was also question of compliance see with his medications. He did have endoscopy during prior admission and endoscopy did reveal gastritis and esophagitis. Of note, look steatosis due to vomiting and lactic acid elevation is due to dehydration not infectious etiology 5:52 PM 08/28/2025 (Dr. Bartolome Patel): No longer thrown up, we will be going for imaging at this time 7:25 PM 08/28/2025 (Dr. Bartolome Patel): I have placed to ultrasound IVs basilic veins both of which have infiltrated under minimal amount of pressure, patient has no EEGs, I placed 18 gauge Angiocath x 2-1/2 inch under sterile conditions into right internal jugular, line is able to be flushed, I obtained a lactic level, it is positional in order to withdraw blood work form it ( need to slightly pull out, tip suck in the vessel otherwise), I secured it in place Biopatch, we will obtain x-ray postprocedure Differential Diagnosis Differential Diagnoses: The differential diagnosis associated with the presentation includes (Gastroparesis, ischemic colitis, esophagitis, gastroenteritis, ACS, dehydration, DKA) Admission/Observation Consideration of admission/observation: Escalation of care including admission/observation considered Consult Healthcare Provider Management of the patient was discussed with: Hospitalist Lab Data MDM Lab Attestation statement: I reviewed the patient's lab results. 08/28/25 16:27 08/28/25 16:27 Labs: Lab Results 08/28/25 08/28/25 08/28/25 Range/Units 16:27 16:29 17:31 WBC 11.0 H (4.8-10.8) X10*3/uL RBC 4.66 (4.60-5.80) X10*6/uL Hgb 13.6 L (14.0-18.0) g/dl Hct 38.4 L (42.0-52.0) % MCV 82.4 (80.0-98.0) fL MCH 29.2 (27.0-33.0) pg MCHC 35.4 (31.0-36.0) g/dl RDW 13.2 (11.0-16.0) % Plt Count 379 D (160-400) X10*3/uL MPV 10.2 (9.4-12.4) fL Immature Gran % (Auto) 0.5 H (0.0-0.4) % Neut % (Auto) 76.9 H (45-73) % Lymph % (Auto) 16.3 L (20-40) % [place] % (Auto) 5.7 (2-11) % Eos % (Auto) 0.1 (0-4) % Baso % (Auto) 0.5 (0-2) % Lymph # (Auto) 1.8 (1.2-4.9) X10*3/uL [place] # (Auto) 0.6 (0.1-1.2) X10*3/uL Eos # (Auto) 0.0 (0.0-0.4) X10*3/uL Baso # (Auto) 0.1 (0.0-0.2) X10*3/uL Abs Immat Gran (auto) 0.06 H (0.00-0.03) X10*3/uL Absolute Neuts (auto) 8.5 H (2.0-8.3) x10*3/uL Absolute Nucleated RBC 0.000 (0.0-0.012) X10*3/uL Nucleated RBC % (auto) 0.0 (0.0-0.2) /100WBC PT 14.2 H (10.9-12.4) SEC INR 1.2 H (0.9-1.1) Sodium 136 (135-145) mmol/L Potassium 3.6 (3.3-5.1) mmol/L Chloride 105 (96-108) mmol/L Carbon Dioxide 17 L (22-29) mmol/L Anion Gap 18 (12-20) BUN 5 L (9-16) mg/dL Creatinine 0.75 (0.5-1.4) mg/dL Estim Creat Clear Calc 115.4 Estimated GFR > 60 POC Glucose 370 H* (60-115) mg/dL Random Glucose 400 H* (60-115) mg/dL Lactic Acid 4.9 H* (0.5-2.0) mmol/L Lactic Acid F/U @ 2Hr (0.5-2.0) mmol/L Calcium 9.2 D (8.4-10.2) mg/dL Magnesium 1.9 (1.6-2.6) mg/dL Total Bilirubin 0.6 (0.0-1.0) mg/dL AST 24 (5-37) U/L ALT 20 (0-40) U/L Alkaline Phosphatase 92 (39-117) U/L Troponin I High Sens 5.6 D (<3.5-35.0) ng/L Total Protein 6.7 (6.5-8.0) g/dL Albumin 4.1 (3.5-5.0) g/dL Lipase < 4 L (8-78) U/L Beta-Hydroxybutyrate 1.84 H (0.02-0.27) mmol/L 08/28/25 Range/Units 19:19 WBC (4.8-10.8) X10*3/uL RBC (4.60-5.80) X10*6/uL Hgb (14.0-18.0) g/dl Hct (42.0-52.0) % MCV (80.0-98.0) fL MCH (27.0-33.0) pg MCHC (31.0-36.0) g/dl RDW (11.0-16.0) % Plt Count (160-400) X10*3/uL MPV (9.4-12.4) fL Immature Gran % (Auto) (0.0-0.4) % Neut % (Auto) (45-73) % Lymph % (Auto) (20-40) % [place] % (Auto) (2-11) % Eos % (Auto) (0-4) % Baso % (Auto) (0-2) % Lymph # (Auto) (1.2-4.9) X10*3/uL [place] # (Auto) (0.1-1.2) X10*3/uL Eos # (Auto) (0.0-0.4) X10*3/uL Baso # (Auto) (0.0-0.2) X10*3/uL Abs Immat Gran (auto) (0.00-0.03) X10*3/uL Absolute Neuts (auto) (2.0-8.3) x10*3/uL Absolute Nucleated RBC (0.0-0.012) X10*3/uL Nucleated RBC % (auto) (0.0-0.2) /100WBC PT (10.9-12.4) SEC INR (0.9-1.1) Sodium (135-145) mmol/L Potassium (3.3-5.1) mmol/L Chloride (96-108) mmol/L Carbon Dioxide (22-29) mmol/L Anion Gap (12-20) BUN (9-16) mg/dL Creatinine (0.5-1.4) mg/dL Estim Creat Clear Calc Estimated GFR POC Glucose (60-115) mg/dL Random Glucose (60-115) mg/dL Lactic Acid (0.5-2.0) mmol/L Lactic Acid F/U @ 2Hr 1.8 (0.5-2.0) mmol/L Calcium (8.4-10.2) mg/dL Magnesium (1.6-2.6) mg/dL Total Bilirubin (0.0-1.0) mg/dL AST (5-37) U/L ALT (0-40) U/L Alkaline Phosphatase (39-117) U/L Troponin I High Sens (<3.5-35.0) ng/L Total Protein (6.5-8.0) g/dL Albumin (3.5-5.0) g/dL Lipase (8-78) U/L Beta-Hydroxybutyrate (0.02-0.27) mmol/L Independent Interpretation I performed an independent interpretation of an: EKG (105 beats per minute otherwise normal ECG without dysrhythmia, AV gustavo blocks or ST-T changes to suspect underlying ACS, my independent interpretation) and Plain X-Ray (No pneumothorax after IV line placement to the right IJ) Radiology Impression Discussion of test interpretation with radiology: I have reviewed the radiologist's reading. Prescription Management I considered prescription management with: Pain Medication Chronic Conditions Patient?s care impacted by: Diabetes and Hypertension Medications Administered Discontinued Medications Generic Name Dose Route Start Last Admin Trade Name Yajaira PRN Reason Stop Dose Admin Azithromycin 500 mg 08/28/25 16:55 08/28/25 17:26 Azithromycin 500 Mg Tablet PO 08/28/25 16:56 Not Given ONCE ONE Diazepam 5 mg 08/28/25 16:27 08/28/25 16:36 Diazepam 10 Mg/2 Ml Cartridge IVPUSH 08/28/25 16:28 5 mg STAT STA Administration Diphenhydramine HCl 25 mg 08/28/25 16:27 08/28/25 16:40 Diphenhydramine Hcl 50 Mg/Ml Vial IVPUSH 08/28/25 16:28 25 mg ONCE ONE Administration Droperidol 0.625 mg 08/28/25 16:27 08/28/25 16:43 Droperidol 5 Mg/2 Ml Vial IVPUSH 08/28/25 16:28 0.625 mg ONCE ONE Administration Furosemide 40 mg 08/28/25 16:55 08/28/25 17:34 Furosemide 40 Mg Tablet PO 08/28/25 16:56 Not Given ONCE ONE Protocol Hydromorphone HCl 1 mg 08/28/25 17:24 08/28/25 17:37 Hydromorphone Hcl 1 Mg/Ml Syringe IVPUSH 08/28/25 17:25 1 mg ONCE ONE Administration Protocol Sodium Chloride 1,000 mls @ 999 mls/hr 08/28/25 16:45 08/28/25 20:12 Ns IV 08/28/25 17:45 Infused .Q1H1M WILLIAM Infusion Acetaminophen 1,000 mg in 100 mls @ 400 mls/hr 08/28/25 19:38 08/28/25 20:12 Ofirmev IV 08/28/25 19:52 Infused ONCE ONE Infusion Insulin Human Regular 10 unit 08/28/25 16:52 08/28/25 17:32 Insulin Regular, Human 100 Unit/Ml 10 Ml Vial IVPUSH 08/28/25 16:53 10 unit ONCE ONE Administration Lidocaine HCl 15 ml 08/28/25 17:24 08/28/25 17:30 Lidocaine Hcl Viscous 2 % 15 Ml Solution PO 08/28/25 17:25 15 ml ONCE ONE Administration Lidocaine HCl 10 ml 08/28/25 18:56 08/28/25 19:46 Lidocaine Hcl 1 % 20 Ml Vial INFILTRATI 08/28/25 18:57 10 ml ONCE ONE Administration Metoclopramide HCl 10 mg 08/28/25 16:27 08/28/25 16:38 Metoclopramide Hcl 10 Mg/2 Ml Vial IVPUSH 08/28/25 16:28 10 mg ONCE ONE Administration Pantoprazole Sodium 40 mg 08/28/25 16:27 08/28/25 16:41 Pantoprazole Sodium 40 Mg/10 Ml Vial IVPUSH 08/28/25 16:28 40 mg ONCE ONE Administration Critical Care Time Critical Care Time Critical Care Time: Yes Total Critical Care Time: 55 Attestation: Time is exclusive of separately billable procedures. Time includes: direct patient care, patient reassessment, coordination of patient care, interpretation of data (laboratory data, pulse oximetry, arterial blood gases and chest xrays), review of patient's medical records, medical consultation and documentation of patient care. Procedures excluded from critical care time: central intravenous line placement and electrocardiography. Discharge Plan Discharge Clinical Impression: Gastroparesis, Abdominal pain, Diabetes Patient Disposition: Admitted As Inpatient
--- NOTE | 2025-08-28 16:27 | ECG_ITS ---
Test Reason : ABD PAIN Blood Pressure : */* mmHG Vent. Rate : 105 BPM Atrial Rate : 105 BPM P-R Int : 198 ms QRS Dur : 90 ms QT Int : 374 ms P-R-T Axes : 56 -4 67 degrees QTcB Int : 494 ms Sinus tachycardia Nonspecific ST abnormality Abnormal ECG When compared with ECG of 16-Aug-2025 10:41, Nonspecific T wave abnormality, improved in Inferior leads Referred By: Bartolome Patel Electronically Signed By: Kenny Pond
[2025-08-28 16:33] LABS: MANUAL DIFF FLAG NO
[2025-08-28 16:34] LABS: Hematocrit 38.4 % (42.0-52.0); Hemoglobin 13.6 g/dl (14.0-18.0); Imm Gran Abs Auto 0.06 X10*3/uL (0.00-0.03); Imm Gran Pct Auto 0.5 % (0.0-0.4); Lymphocytes Absolute Auto 1.8 X10*3/uL (1.2-4.9); Mean Corpuscular HGB Conc 35.4 g/dl (31.0-36.0); Mean Corpuscular Hemoglobin 29.2 pg (27.0-33.0); Mean Corpuscular Volume 82.4 fL (80.0-98.0); NRBC Abs Auto 0.000 X10*3/uL (0.0-0.012); NRBC Pct Auto 0.0 /100WBC (0.0-0.2); Platelet Count 379 X10*3/uL (160-400); Red Blood Count 4.66 X10*6/uL (4.60-5.80); White Blood Count 11.0 X10*3/uL (4.8-10.8)
[2025-08-28] MEDS: diazePAM 10 MG/2 ML CARTRIDGE 5 MG IVPUSH (16:36)
[2025-08-28 16:40] LABS: INTERNATIONAL NORM RATIO 1.2 (0.9-1.1); Prothrombin Time 14.2 SEC (10.9-12.4)
[2025-08-28 16:53] LABS: Alanine Aminotransferase 20 U/L (0-40); Albumin Level 4.1 g/dL (3.5-5.0); Alkaline Phosphatase 92 U/L (39-117); Anion Gap 18 (12-20); Aspartate Amino Transferase 24 U/L (5-37); Blood Urea Nitrogen 5 mg/dL (9-16); Calcium 9.2 mg/dL (8.4-10.2); Carbon Dioxide 17 mmol/L (22-29); Chloride 105 mmol/L (96-108); Creatinine Clr Calc Pharmacy 115.4; Estimated Glomerular Filt Rate > 60; Lipase < 4 U/L (8-78); Magnesium 1.9 mg/dL (1.6-2.6); Potassium 3.6 mmol/L (3.3-5.1); Sodium 136 mmol/L (135-145); Total Protein 6.7 g/dL (6.5-8.0)
[2025-08-28 16:55] LABS: Troponin-I High Sensitivity 5.6 ng/L (<3.5-35.0)
--- OUTSIDE RECORDS SUMMARY | 2025-08-28 17:04 | XMS_ITS | Clinical Summary ---
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 Name Role Phone Marley Rick MD Primary Care Provider [phone] Social History Tobacco Use Types Packs/Day Years [...] file Medical Devices Not on file Insurance [facility] [employer] [place] [address] [place] [address] [employer] [address] [place] [address] [employer] [facility] [employer] Care Teams Plant Packer Relationship Specialty Start Date End Date Marley Rick MD [address] [place] [id number] PCP - General Internal Medicine 02/07/25 Additional Source Comments The information contained in this document represents components of the legal health record. It is not the complete legal health record.Formerly [facility]
[2025-08-28] MEDS: Lidocaine HCl Viscous 2 % 15 ML SOLUTION PO (17:30)
[2025-08-28 17:36] LABS: Glucose, Whole Blood 370 mg/dL (60-115)
[2025-08-28 18:31] LABS: Reflex Lactate? Lactic Acid Added
--- NOTE | 2025-08-28 18:33 | HO.NURTONUR ---
Addendum entered by Ivette Benedict RN 08/29/25 02:35: Pt alert oriented to person and place, forgetful to time. Pt pleasant and cooperative. IVF's infusing as ordered through Right IJ ultrasound peripheral IV. VSS. Pt receiving PRN Dilaudid IV for ongoing mid abdominal pain as documented. Patient c/o of nausea with Reglan provided and effective in alleviating symptoms. Abdomen soft, tender light palpation mid to upper abdomen. Bowel sounds active in all 4 quadrants. Bed in lowest setting, licked and alarmed, call bansal within reach. Pt encouraged to use call bansal for all needs. Addendum entered by Taylor Carter RN 08/28/25 23:05: new access to right IJ per MD - notified RN report was called to DAVID Steele Original Note: 64 yr old male comes to ED today for n/v x3 days. Pt reports Hx Gastroparesis and is currently non complaint with his medications. On arrival, Pt with frequent dry heaving; some bile production. Pt is severely restless and has difficulty following direction for care. Pt is a difficult stick. Two u/s guided IV's placed by Dr. Patel, both lines infiltrate: one during CT scan, one during IVF admin. Per Dr. Patel, possible central line placement----awaiting decision. Pt is currently resting quietly with eyes closed.
[2025-08-28] MEDS: Lidocaine HCl 1 % 20 ML VIAL 10 ML INFILTRATI (19:46)
[2025-08-28 20:06] LABS: ~Lactic Acid-LAB USE ONLY 1.8 mmol/L (0.5-2.0)
--- NOTE | 2025-08-28 21:01 | PM.IMHP ---
History of Present Illness Date of Service: 08/28/25 Attending physician on admission: Amanda Jennings Chief Complaint: nausea, vomiting, abd pain Patient is a 64-year-old male with a past medical history significant for multiple prior abdominal surgeries, hypertension, diabetes, ischemic bowel on Xarelto (has not taken x3 days), HFrEF, gastroparesis, gastritis, history NSTEMI, MDD, PVCs, paroxysmal a fib and osteomyelitis who presented to the ED due to abdominal pain and vomiting for the past 3 days. The pain is located in the epigastric and left upper quadrant. This feels similar to previous episode of gastroparesis. The patient was also recently hospitalized for mesenteric ischemia and treated conservatively with bowel rest, IV fluids, antibiotics and anticoagulation. He reports significant nausea and vomiting for the past 3 days and has been unable to tolerate anything p.o. including fluids or solids. He reports he has not been taking his he denies any hematemesis melena or hematochezia. Last BM this morning, no diarrhea. No fever or chills. He denies any urinary symptoms or URI symptoms. Review of Systems Constitutional: Constitutional: Denies body ache(s), Denies chills, Reports fatigue, Denies fever(s), Reports headache(s) and Reports weakness Eyes: Eyes: Denies change in vision ENT: Denies dizziness, Reports headache(s), Denies nasal congestion, Denies nasal discharge and Denies sore throat Cardiovascular: Cardiovascular: Denies chest pain, Denies rapid heart rate, Denies leg edema, Denies lightheadedness and Denies dyspnea Respiratory: Respiratory: Denies chest congestion, Denies cough, Denies dyspnea and Denies wheezing Gastrointestinal: Gastrointestinal: Reports as per HPI Genitourinary: Genitourinary: Denies dysuria and Denies urinary urgency Musculoskeletal: Musculoskeletal: Denies back pain Integumentary/Breasts: Skin/Breast: Denies rash Neurologic: Denies confusion, Denies dizziness, Reports headache(s) and Reports weakness Psychiatric: Psychiatric: Denies confusion Endocrine: Endocrine: Reports fatigue Hematologic/Lymphatic: Hematologic/Lymphatic: Denies easy bleeding and Denies easy bruising Allergic/Immunologic: Allergic/Immunologic: Denies wheezing [facility] Medical History Hypertensive urgency Abdominal pain PVD (peripheral vascular disease) Gastroparesis DKA (diabetic ketoacidosis) Obesity (BMI 30-39.9) PAD (peripheral artery disease) Afib Amputation of left great toe Lower limb amputation, great toe CAD (coronary artery disease) DMII (diabetes mellitus, type 2) Orthopedic hardware present Hyperglycemia Cellulitis Asthma Diabetes Hypertension FHx: bilateral hip replacements Family History Father Cancer of neck Mother Uterus cancer Other No family history of coronary artery disease Surgical History History of amputation of toe (07/29/22) History of amputation of great toe (01/07/22) History of back surgery History of neck surgery History of ankle surgery H/O bilateral hip replacements S/P quadruple vessel bypass Social History Household Members: Spouse and Children Household Members Other:: 3 [facility]: [facility] Are you a primary acute care physician to a significant other at home: No Do you presently have visiting nurse or other home services: No Alcohol intake: never Comment: refused bed or chair alarm Patient Tobacco Use Status: Former Tobacco user Tobacco use type: Cigarette e-Cigarette/Vaping Use: Never Used Second Hand Smoke Exposure: No Substance Use Type: Marijuana Advance Directives: Yes Advance Directives on File: Yes Advance Directives Date on File: 07/20/25 Do you have a plan to hurt others: No Plan service: No Current occupational status: disabled Narrative: no smoking, occasional etoh, no drug use Meds Allergies Allergy/AdvReac Type Severity Reaction Status Date / Time morphine AdvReac Intermediate Hallucinati Verified 08/28/25 15:58 ons Active Medications: Current Medications Acetaminophen (Acetaminophen 325 Mg Tablet) 975 mg PO Q6H PRN PRN Reason: Pain, Mild 1-3,fever,headache Calcium Carbonate (Calcium Carbonate 750 Mg Tab.Chew) 750 mg PO Q4H PRN PRN Reason: Heartburn Dextrose (Dextrose 50 % 25 Gm/50 Ml Syringe) 25 gm IVPUSH Q15M PRN; Protocol PRN Reason: per Hypoglycemia Standing Ord. Enoxaparin Sodium (Enoxaparin Sodium 40 Mg/0.4 Ml Syringe) 40 mg SUBCUT Q24H [facility] Glucose (Glucose Gel 15 Gm Gel..Gram.) 15 gm PO Q15M PRN; Protocol PRN Reason: per Hypoglycemia Standing Ord. Hydromorphone HCl (Hydromorphone Hcl 1 Mg/Ml Syringe) 1 mg IVPUSH Q4H PRN; Protocol PRN Reason: Pain, Severe (Pain Scale 7-10) Dextrose/Sodium Chloride (D51/2ns) 1,000 mls @ 75 mls/hr IVCONT .[id number] [facility] Insulin Human Lispro (Insulin Lispro 100 Unit/Ml 3 Ml Vial) 0 unit SUBCUT QIDACHS [facility]; Protocol Magnesium Hydroxide (Milk Of Magnesia 30 Ml Oral.Susp) 30 ml PO DAILY PRN PRN Reason: Constipation Melatonin (Melatonin 3 Mg Tablet) 6 mg PO BEDTIME PRN PRN Reason: Insomnia Metoclopramide HCl (Metoclopramide Hcl 10 Mg Tablet) 10 mg PO Q6H PRN PRN Reason: Nausea and Vomiting Oxycodone HCl (Oxycodone Hcl Immed Release 5 Mg Tablet) 5 mg PO Q6H PRN PRN Reason: Pain, Moderate(Pain Scale 4-6) Sodium Chloride (0.9 % Sodium Chloride Flush 3 Ml Syringe) 3 ml IVFLUSH QSHIFT [facility] Home Medications ?Medication ?Instructions ?Recorded ?Confirmed ?Last Taken ?Type ezetimibe 10 mg tablet 10 mg PO BEDTIME 01/03/22 08/14/25 07/17/25 History gabapentin 300 mg capsule 300 mg PO TID 01/03/22 08/14/25 07/17/25 History insulin glargine 100 unit/mL 10 unit subcut BEDTIME 01/03/22 08/14/25 07/17/25 History subcutaneous solution (Lantus U-100 Insulin) loratadine 10 mg tablet 10 mg PO DAILY 01/03/22 08/14/25 07/17/25 History losartan 25 mg tablet 25 mg PO DAILY 01/03/22 08/14/25 07/17/25 History meclizine 25 mg tablet 25 mg PO TID PRN Dizziness Or 01/03/22 08/14/25 05/23/25 History Vertigo rosuvastatin 40 mg tablet 40 mg PO BEDTIME 03/08/1708/14/25 07/17/25 History aspirin 81 mg tablet,delayed 81 mg PO DAILY 08/04/22 08/14/25 07/17/25 History release furosemide 20 mg tablet 20 mg PO DAILY 11/13/22 08/14/25 07/17/25 History metoprolol succinate 25 mg 25 mg PO DAILY 10/14/24 08/14/25 07/17/25 History tablet,extended release 24 hr insulin lispro 100 unit/mL See Protocol subcut QIDACHS 12/16/24 08/14/25 07/17/25 History subcutaneous solution rivaroxaban 20 mg tablet (Xarelto) 20 mg PO DAILY@1700 12/16/24 08/14/25 07/17/25 History insulin glargine 100 unit/mL 8 unit subcut DAILY 03/23/25 08/14/25 07/17/25 History subcutaneous solution (Lantus U-100 Insulin) glucagon 1 mg/0.2 mL subcutaneous 1 mg subcut ONCE PRN Hypoglycemia 05/26/25 08/14/25 Unknown History auto-injector ([employer] HypoPen 2-Pack) pantoprazole 40 mg tablet,delayed 40 mg PO BID@0630,1630 05/26/25 08/14/25 07/17/25 History release ondansetron 4 mg disintegrating 4 mg PO Q8H PRN Nausea And Vomiting 07/19/25 08/14/25 Unknown History tablet venlafaxine 100 mg tablet 100 mg PO BID 08/14/25 08/14/25 Unknown History Physical Exam Vital Signs and Narrative: Vital Signs: Last Vital Signs Temp 98.6 F 08/28/25 20:15 Pulse 91 08/28/25 20:15 Resp 14 08/28/25 20:15 BP 118/60 08/28/25 20:15 Pulse Ox 98 08/28/25 20:15 O2 Del Method Room Air 08/28/25 20:15 BMI result Body Mass Index 34.4 General: AOx3, appears uncomfortable, laying on left side, bedside Resp: CTA bilaterally CVS: S1, S2, RRR GI: hypoactive BS, tender epigastric and LUQ, no distention Skin: Warm, dry Neuro: Cranial nerves II-XII grossly intact bilaterally. Motor grossly intact bilaterally Extremities: No pitting edema, LLE>RLE (baseline per pt) Psych: Appropriate affect Const: General: No confusion Orientation/consciousness: No confusion Neuro: General: No confusion Results Labs 08/28/25 16:27 08/28/25 16:27 Labs: Laboratory Results - last 24 hr 08/28/25 08/28/25 08/28/25 16:27 16:29 17:31 MCV 82.4 MCH 29.2 MCHC 35.4 RDW 13.2 Plt Count 379 D MPV 10.2 Immature Gran % (Auto) 0.5 H Neut % (Auto) 76.9 H Lymph % (Auto) 16.3 L Falls % (Auto) 5.7 Eos % (Auto) 0.1 Baso % (Auto) 0.5 Lymph # (Auto) 1.8 Falls # (Auto) 0.6 Eos # (Auto) 0.0 Baso # (Auto) 0.1 Abs Immat Gran (auto) 0.06 H Absolute Neuts (auto) 8.5 H Absolute Nucleated RBC 0.000 Nucleated RBC % (auto) 0.0 PT 14.2 H INR 1.2 H Anion Gap 18 Estim Creat Clear Calc 115.4 Estimated GFR > 60 POC Glucose 370 H* Random Glucose 400 H* Lactic Acid 4.9 H* Lactic Acid F/U @ 2Hr Calcium 9.2 D Magnesium 1.9 Total Bilirubin 0.6 AST 24 ALT 20 Alkaline Phosphatase 92 Troponin I High Sens 5.6 D Total Protein 6.7 Albumin 4.1 Lipase < 4 L Beta-Hydroxybutyrate 1.84 H 08/28/25 19:19 MCV MCH MCHC RDW Plt Count MPV Immature Gran % (Auto) Neut % (Auto) Lymph % (Auto) Falls % (Auto) Eos % (Auto) Baso % (Auto) Lymph # (Auto) Falls # (Auto) Eos # (Auto) Baso # (Auto) Abs Immat Gran (auto) Absolute Neuts (auto) Absolute Nucleated RBC Nucleated RBC % (auto) PT INR Anion Gap Estim Creat Clear Calc Estimated GFR POC Glucose Random Glucose Lactic Acid Lactic Acid F/U @ 2Hr 1.8 Calcium Magnesium Total Bilirubin AST ALT Alkaline Phosphatase Troponin I High Sens Total Protein Albumin Lipase Beta-Hydroxybutyrate Assessment and Plan (1) Intractable nausea and vomiting: Status: Acute (2) Intractable abdominal pain: Status: Acute (3) Acidosis, lactic: Status: Acute (4) Metabolic acidosis: Status: Acute Plan Patient is a 64-year-old male with a past medical history significant for multiple prior abdominal surgeries, hypertension, diabetes, ischemic bowel on Xarelto (has not taken x3 days), HFrEF, gastroparesis, gastritis, history NSTEMI, MDD, PVCs, paroxysmal a fib and osteomyelitis who presented to the ED due to abdominal pain and vomiting for the past 3 days. intractable abd pain with nausea and vomiting, gastroparesis vs gastritis vs ischemic bowel. non-con CT negative - pain management - IVF - NPO - pantoprazole - reglan - CTA abd/pelvis cannot be done as pt only has IJ - GI consult acute lactic acidosis/metabolic acidosis, likely secondary to severe vomiting and lack of PO intake -- improved - IVF - monitor BMP chronic anemia, stable - monitor CBC HTN - imdur - hold metoprolol and losartan for now due to normotensive BP - avoid hypotension IDDM with hyperglycemia - currently NPO - SSI Q6H - lantus 10U QHS to be resumed when pt taking PO paroxysmal a fib - hold metoprolol due to normotensive BP - hold xarelto on lovenox 40mg Q24H diabetic neuropathy - gabapentin HFrEF, no acute exacebation - hold lasix due to normotension class 2 obesity - weight loss encouraged med rec pending full code VTE prophy: lovenox Pt with intractable abd pain, nausea and vomiting, ischemic bowel vs gastritis vs gastroparesis, requiring admission for at least 2 midnights stay for further evaluation, IVF, and monitoring. Quality Stroke Does the patient have a stroke diagnosis?: No VTE Prior VTE?: No VTE Risk Level:: Medical - moderate - high VTE Device Contraindication: Treatment Not Indicated VTE Drug Contraindication: N/A - Med Ordered
[2025-08-28 21:08] LABS: Glucose, Whole Blood 284 mg/dL (60-115)
[2025-08-28] MEDS: Dextrose 5 % and 0.45 % NaCl 1,000 ML 75 ML IVCONT (22:22)
--- NOTE | 2025-08-28 23:02 | PC.NURSE ---
report called to Ivette HERNANDEZ at this time
[2025-08-29] VITALS (7 sets, daily range): BP systolic 112–136; BP diastolic 62–76; PULSE 71–78; RESP 12–20; TEMP 36.1–36.4; O2SAT 93–99; BMI 34.4
[2025-08-29 00:51] LABS: Glucose, Whole Blood 210 mg/dL (60-115)
[2025-08-29 03:51] LABS: MANUAL DIFF FLAG NO
[2025-08-29 03:53] LABS: Hematocrit 35.8 % (42.0-52.0); Hemoglobin 12.2 g/dl (14.0-18.0); Imm Gran Abs Auto 0.03 X10*3/uL (0.00-0.03); Imm Gran Pct Auto 0.3 % (0.0-0.4); Lymphocytes Absolute Auto 3.6 X10*3/uL (1.2-4.9); Mean Corpuscular HGB Conc 34.1 g/dl (31.0-36.0); Mean Corpuscular Hemoglobin 28.6 pg (27.0-33.0); Mean Corpuscular Volume 83.8 fL (80.0-98.0); NRBC Abs Auto 0.000 X10*3/uL (0.0-0.012); NRBC Pct Auto 0.0 /100WBC (0.0-0.2); Platelet Count 332 X10*3/uL (160-400); Red Blood Count 4.27 X10*6/uL (4.60-5.80); White Blood Count 11.1 X10*3/uL (4.8-10.8)
[2025-08-29 04:13] LABS: Anion Gap 12 (12-20); Blood Urea Nitrogen 7 mg/dL (9-16); Calcium 8.6 mg/dL (8.4-10.2); Carbon Dioxide 23 mmol/L (22-29); Chloride 108 mmol/L (96-108); Creatinine Clr Calc Pharmacy 137.4; Estimated Glomerular Filt Rate > 60; Magnesium 2.2 mg/dL (1.6-2.6); Potassium 3.6 mmol/L (3.3-5.1); Sodium 139 mmol/L (135-145)
[2025-08-29 05:36] LABS: Glucose, Whole Blood 156 mg/dL (60-115)
--- NOTE | 2025-08-29 07:49 | PM.GICN ---
History of Present Illness Data of Consult Service Date: 08/29/25 Requesting physician: Amanda Jennings Primary Care Provider: Marley Rick MD HPI Reason for consult: Abd pain, N, V This is a 64-year-old gentleman with medical history of coronary disease, peripheral vascular disease, atrial fibrillation, type 2 diabetes with gastroparesis, who presented to the hospital for lower abdominal pain with nausea and vomiting. Patient reports that 3 days ago, he started having lower abdominal pain with cramping, loss of appetite and nausea. This progressed to severe vomiting where he was unable to keep anything down. He stopped taking his insulin as he was not eating anything. On presentation to the hospital, he was noted to be tachycardic and hypertensive. Labs with white count of 11, H&H at baseline. No venous blood gas available from this admission. Normal anion gap and bicarb. Initial glucose of 400 which this morning is less than 180. CT abd/pel without contrast No consolidation at the lung bases. Subsegmental atelectasis versus linear scarring. Trace left lung base pleural thickening. Status post cholecystectomy. Unremarkable bladder. Pancreatic lipomatosis. The other solid organs are normal. Small hiatal hernia. Duodenal diverticula. No bowel wall thickening or dilation. A normal appendix is identified. No pneumatosis or portal venous gas. No aneurysm. Severe calcified atherosclerotic disease. No lymphadenopathy. No ascites. Bilateral anterior abdominal wall lower quadrant skin thickening and infiltration of the subcutaneous fat with calcifications secondary to injections. No acute osseous abnormality. Remote, healed right rib fractures. Status post laminectomies and posterior fusion L4 through S1. Bilateral total hip arthroplasties Intact hardware. Review of Systems Review of Systems: Yes all other systems are reviewed and are negative COUNTS INCLUDE 234 BEDS AT THE [facility] Past Medical History Medical History Hypertensive urgency Abdominal pain PVD (peripheral vascular disease) Gastroparesis DKA (diabetic ketoacidosis) Obesity (BMI 30-39.9) PAD (peripheral artery disease) Afib Amputation of left great toe Lower limb amputation, great toe CAD (coronary artery disease) DMII (diabetes mellitus, type 2) Orthopedic hardware present Hyperglycemia Cellulitis Asthma Diabetes Hypertension FHx: bilateral hip replacements Family History Family History Father Cancer of neck Mother Uterus cancer Other No family history of coronary artery disease Surgical History Surgical History History of amputation of toe (07/29/22) History of amputation of great toe (01/07/22) History of back surgery History of neck surgery History of ankle surgery H/O bilateral hip replacements S/P quadruple vessel bypass Social History Social History Household Members: Spouse and Children Household Members Other:: 3 Housing: Condominium Are you a primary assisted living care manager to a significant other at home: No Do you presently have visiting nurse or other home services: No Alcohol intake: never Comment: refused bed or chair alarm Patient Tobacco Use Status: Former Tobacco user Tobacco use type: Cigarette e-Cigarette/Vaping Use: Never Used Second Hand Smoke Exposure: No Substance Use Type: Marijuana Advance Directives Date on File: 07/20/25 service: No Current occupational status: disabled Meds Allergies Allergy/AdvReac Type Severity Reaction Status Date / Time morphine AdvReac Intermediate Hallucinati Verified 08/28/25 15:58 ons Active Medications: Current Medications Acetaminophen (Acetaminophen 325 Mg Tablet) 975 mg PO Q6H PRN PRN Reason: Pain, Mild 1-3,fever,headache Calcium Carbonate (Calcium Carbonate 750 Mg Tab.Chew) 750 mg PO Q4H PRN PRN Reason: Heartburn Dextrose (Dextrose 50 % 25 Gm/50 Ml Syringe) 25 gm IVPUSH Q15M PRN; Protocol PRN Reason: per Hypoglycemia Standing Ord. Enoxaparin Sodium (Enoxaparin Sodium 40 Mg/0.4 Ml Syringe) 40 mg SUBCUT Q24H [facility] Last Admin: 08/28/25 21:36 Dose: 40 mg Glucose (Glucose Gel 15 Gm Gel..Gram.) 15 gm PO Q15M PRN; Protocol PRN Reason: per Hypoglycemia Standing Ord. Hydromorphone HCl (Hydromorphone Hcl 1 Mg/Ml Syringe) 1 mg IVPUSH Q4H PRN; Protocol PRN Reason: Pain, Severe (Pain Scale 7-10) Last Admin: 08/29/25 05:39 Dose: 1 mg Dextrose/Sodium Chloride (D51/2ns) 1,000 mls @ 75 mls/hr IVCONT .[id number] [facility] Last Admin: 08/28/25 22:22 Dose: 75 mls/hr Insulin Human Lispro (Insulin Lispro 100 Unit/Ml 3 Ml Vial) 0 unit SUBCUT Q6H [facility]; Protocol Last Admin: 08/29/25 05:40 Dose: 2 unit Magnesium Hydroxide (Milk Of Magnesia 30 Ml Oral.Susp) 30 ml PO DAILY PRN PRN Reason: Constipation Melatonin (Melatonin 3 Mg Tablet) 6 mg PO BEDTIME PRN PRN Reason: Insomnia Metoclopramide HCl (Metoclopramide Hcl 10 Mg Tablet) 10 mg PO Q6H PRN PRN Reason: Nausea and Vomiting Last Admin: 08/29/25 01:47 Dose: 10 mg Oxycodone HCl (Oxycodone Hcl Immed Release 5 Mg Tablet) 5 mg PO Q6H PRN PRN Reason: Pain, Moderate(Pain Scale 4-6) Sodium Chloride (0.9 % Sodium Chloride Flush 3 Ml Syringe) 3 ml IVFLUSH QSHIFT [facility] Last Admin: 08/28/25 23:41 Dose: Not Given Home Medications ?Medication ?Instructions ?Recorded ?Confirmed ?Last Taken ?Type ezetimibe 10 mg tablet 10 mg PO BEDTIME 01/03/22 08/29/25 08/26/25 History gabapentin 300 mg capsule 300 mg PO TID 01/03/22 08/29/25 08/26/25 History insulin glargine 100 unit/mL 10 unit subcut BEDTIME 01/03/22 08/29/25 08/26/25 History subcutaneous solution (Lantus U-100 Insulin) loratadine 10 mg tablet 10 mg PO DAILY 01/03/22 08/29/25 08/26/25 History losartan 25 mg tablet 25 mg PO DAILY 01/03/22 08/29/25 08/26/25 History meclizine 25 mg tablet 25 mg PO TID PRN Dizziness Or 01/03/22 08/29/25 05/23/25 History Vertigo rosuvastatin 40 mg tablet 40 mg PO BEDTIME 01/03/22 08/29/25 08/26/25 History aspirin 81 mg tablet,delayed 81 mg PO DAILY 08/04/22 08/29/25 08/26/25 History release furosemide 20 mg tablet 20 mg PO DAILY 11/13/22 08/29/25 08/26/25 History metoprolol succinate 25 mg 25 mg PO DAILY 10/14/24 08/29/25 08/26/25 History tablet,extended release 24 hr insulin lispro 100 unit/mL See Protocol subcut QIDACHS 12/16/24 08/29/25 08/26/25 History subcutaneous solution rivaroxaban 20 mg tablet (Xarelto) 20 mg PO DAILY@1700 12/16/24 08/29/25 08/26/25 History insulin glargine 100 unit/mL 8 unit subcut DAILY 03/23/25 08/29/25 08/26/25 History subcutaneous solution (Lantus U-100 Insulin) glucagon 1 mg/0.2 mL subcutaneous 1 mg subcut ONCE PRN Hypoglycemia 05/26/25 08/29/25 Unknown History auto-injector ([employer] HypoPen 2-Pack) ondansetron 4 mg disintegrating 4 mg PO Q8H PRN Nausea And Vomiting 07/19/25 08/29/25 Unknown History tablet venlafaxine 100 mg tablet 100 mg PO BID 08/14/25 08/29/25 08/26/25 History nystatin 100,000 unit/gram topical 1 appl topical TID PRN apply to 08/29/25 08/29/25 08/26/25 History powder (Nystop) groin omeprazole 20 mg capsule,delayed 20 mg PO DAILY@0630 08/29/25 08/29/25 08/26/25 History release Physical Exam Vital Signs: Vital Signs: Last Vital Signs Temp 97.6 F 08/29/25 05:18 Pulse 78 08/29/25 05:18 Resp 14 08/29/25 05:18 BP 136/76 08/29/25 05:18 Pulse Ox 99 08/29/25 05:18 O2 Del Method Room Air 08/29/25 05:18 BMI result Body Mass Index 34.4 Results Labs 08/29/25 03:44 08/29/25 03:44 Labs: Short CBC 08/28/25 08/29/25 Range/Units 16:27 03:44 WBC 11.0 H 11.1 H (4.8-10.8) X10*3/uL Hgb 13.6 L 12.2 L (14.0-18.0) g/dl Hct 38.4 L 35.8 L (42.0-52.0) % Plt Count 379 D 332 (160-400) X10*3/uL BMP 08/28/25 08/29/25 16:27 03:44 Sodium 136 139 Potassium 3.6 3.6 Chloride 105 108 Carbon Dioxide 17 L 23 BUN 5 L 7 L Creatinine 0.75 0.63 Calcium 9.2 D 8.6 D Liver Function 08/28/25 Range/Units 16:27 Total Bilirubin 0.6 (0.0-1.0) mg/dL AST 24 (5-37) U/L ALT 20 (0-40) U/L Alkaline Phosphatase 92 (39-117) U/L Albumin 4.1 (3.5-5.0) g/dL Assessment and Plan (1) Intractable nausea and vomiting: Status: Acute (2) Gastroparesis: Status: Acute (3) Intractable abdominal pain: Status: Acute Plan Difficult to ascertain whether the abdominal sx started before the high blood sugars/DKA or if the DKA triggered abd pain/N/V. Previously colon ischemia also has been a working diagnosis but no colitis seen on the most recent scan (albeit non-con). Other Ddx include gastroparesis flare. EGD 08/19 without any clinically intervenable findings. Currently, pt reports improvement in abd pain and appetite. Recommendations: - Management of hyperglycemia as per primary team - Hold off EGD as will be low yield - If unable to advance diet, consider erythromycin 250 IV BID x 2 days - Pls ensure has normal QTc prior to starting this - Keep on empiric PPI Thank you for allowing me to participate in his care. Please do not hesitate to reach out for questions or concerns. Procedures Date of Service Date of Service: 08/29/25
[2025-08-29] MEDS: oxyCODONE HCl Immed Release 5 MG TABLET PO (08:37)
--- NOTE | 2025-08-29 08:58 | PHA.MEDREC ---
Addendum entered by Ethan Elkins PharmD 08/29/25 09:06: reviewed Original Note: Pharmacy Consult ? Medication Reconciliation Pharmacy has completed the medication reconciliation. Spoke with pt and he confirmed his medications. Pt confirmed he was just admitted with us 08/14-08/21 and only thing that changed was he stopped taking Pantoprazole 1 BID and is now taking Omeprazole 20mg 1 Daily and he stopped taking Isosorbide per the attending Dr that visit. Pt confirmed he still takes Venlafaxine 100mg tabs 1 BID and still has some at home he states.
[2025-08-29 09:38] LABS: Hemoglobin A1C 230.2420 umol/L; Total Hemoglobin (HGBA1C) 3179.0792 umol/L
[2025-08-29] MEDS: Dextrose 5 % and 0.45 % NaCl 1,000 ML 75 ML IVCONT ×2 (10:24→22:54)
[2025-08-29 11:17] LABS: Glucose, Whole Blood 216 mg/dL (60-115)
--- NOTE | 2025-08-29 14:03 | P.PNIM_ITS ---
Subjective Subjective Date of Service: 08/29/25 Interval History: Nausea persists, no vomiting Diffuse abdominal pain, worse with movement Passing gas, no bowel movement Review of Systems Review of Systems: Yes all other systems are reviewed and are negative Physical Exam 2 Exam: Exam: General: AOx3, no acute distress Resp: CTA bilaterally CVS: S1, S2, RRR GI: +BS, no distention. LUQ and epigastric tenderness Skin: Warm, dry Neuro: Cranial nerves II-XII grossly intact bilaterally. Motor grossly intact bilaterally Extremities: No edema Psych: Appropriate affect Vital Signs: Vital Signs: Last Vital Signs Temp 97.0 F 08/29/25 09:11 Pulse 78 08/29/25 09:11 Resp 12 08/29/25 09:11 BP 135/62 08/29/25 09:11 Pulse Ox 95 08/29/25 09:11 O2 Del Method Room Air 08/29/25 09:11 BMI result Body Mass Index 34.4 Objective Data Active Medications Acetaminophen (Acetaminophen 325 Mg Tablet) 975 mg PO Q6H PRN PRN Reason: Pain, Mild 1-3,fever,headache Calcium Carbonate (Calcium Carbonate 750 Mg Tab.Chew) 750 mg PO Q4H PRN PRN Reason: Heartburn Dextrose (Dextrose 50 % 25 Gm/50 Ml Syringe) 25 gm IVPUSH Q15M PRN; Protocol PRN Reason: per Hypoglycemia Standing Ord. Enoxaparin Sodium (Enoxaparin Sodium 40 Mg/0.4 Ml Syringe) 40 mg SUBCUT Q24H [facility] Last Admin: 08/28/25 21:36 Dose: 40 mg Documented By: ALIZA Glucose (Glucose Gel 15 Gm Gel..Gram.) 15 gm PO Q15M PRN; Protocol PRN Reason: per Hypoglycemia Standing Ord. Hydromorphone HCl (Hydromorphone Hcl 1 Mg/Ml Syringe) 1 mg IVPUSH Q4H PRN; Protocol PRN Reason: Pain, Severe (Pain Scale 7-10) Last Admin: 08/29/25 10:20 Dose: 1 mg Documented By: KATIA Dextrose/Sodium Chloride (D51/2ns) 1,000 mls @ 75 mls/hr IVCONT .[id number] [facility] Last Admin: 08/29/25 10:24 Dose: 75 mls/hr Documented By: KATIA Influenza Virus Vaccine (Flu Vacc [id number](6mo Up)/Pf 0.5 Ml Syringe) 0.5 ml IM .ONCE ONE Stop: 08/30/25 09:01 Insulin Human Lispro (Insulin Lispro 100 Unit/Ml 3 Ml Vial) 0 unit SUBCUT Q6H [facility]; Protocol Last Admin: 08/29/25 12:01 Dose: 4 unit Documented By: KATIA Magnesium Hydroxide (Milk Of Magnesia 30 Ml Oral.Susp) 30 ml PO DAILY PRN PRN Reason: Constipation Melatonin (Melatonin 3 Mg Tablet) 6 mg PO BEDTIME PRN PRN Reason: Insomnia Metoclopramide HCl (Metoclopramide Hcl 10 Mg Tablet) 10 mg PO Q6H PRN PRN Reason: Nausea and Vomiting Last Admin: 08/29/25 10:20 Dose: 10 mg Documented By: KATIA Oxycodone HCl (Oxycodone Hcl Immed Release 5 Mg Tablet) 5 mg PO Q6H PRN PRN Reason: Pain, Moderate(Pain Scale 4-6) Last Admin: 08/29/25 08:37 Dose: 5 mg Documented By: CATA Sodium Chloride (0.9 % Sodium Chloride Flush 3 Ml Syringe) 3 ml IVFLUSH [facility] Last Admin: 08/29/25 08:18 Dose: Not Given Documented By: CATA Non-Admin Reason: IV Running Labs 08/29/25 03:44 08/29/25 03:44 Labs: Laboratory Results - last 24 hr 08/28/25 08/28/25 08/28/25 16:27 16:29 17:31 MCV 82.4 MCH 29.2 MCHC 35.4 RDW 13.2 Plt Count 379 D MPV 10.2 Immature Gran % (Auto) 0.5 H Neut % (Auto) 76.9 H Lymph % (Auto) 16.3 L [place] % (Auto) 5.7 Eos % (Auto) 0.1 Baso % (Auto) 0.5 Lymph # (Auto) 1.8 [place] # (Auto) 0.6 Eos # (Auto) 0.0 Baso # (Auto) 0.1 Abs Immat Gran (auto) 0.06 H Absolute Neuts (auto) 8.5 H Absolute Nucleated RBC 0.000 Nucleated RBC % (auto) 0.0 PT 14.2 H INR 1.2 H Anion Gap 18 Estim Creat Clear Calc 115.4 Estimated GFR > 60 POC Glucose 370 H* Random Glucose 400 H* Estimat Average Glucose Hemoglobin A1c % Lactic Acid 4.9 H* Lactic Acid F/U @ 2Hr Calcium 9.2 D Magnesium 1.9 Total Bilirubin 0.6 AST 24 ALT 20 Alkaline Phosphatase 92 Troponin I High Sens 5.6 D Total Protein 6.7 Albumin 4.1 Lipase < 4 L Beta-Hydroxybutyrate 1.84 H 08/28/25 08/28/25 08/29/25 19:19 21:05 00:39 MCV MCH MCHC RDW Plt Count MPV Immature Gran % (Auto) Neut % (Auto) Lymph % (Auto) [place] % (Auto) Eos % (Auto) Baso % (Auto) Lymph # (Auto) [place] # (Auto) Eos # (Auto) Baso # (Auto) Abs Immat Gran (auto) Absolute Neuts (auto) Absolute Nucleated RBC Nucleated RBC % (auto) PT INR Anion Gap Estim Creat Clear Calc Estimated GFR POC Glucose 284 H 210 H Random Glucose Estimat Average Glucose Hemoglobin A1c % Lactic Acid Lactic Acid F/U @ 2Hr 1.8 Calcium Magnesium Total Bilirubin AST ALT Alkaline Phosphatase Troponin I High Sens Total Protein Albumin Lipase Beta-Hydroxybutyrate 08/29/25 08/29/25 08/29/25 03:44 05:31 11:11 MCV 83.8 MCH 28.6 MCHC 34.1 RDW 13.5 Plt Count 332 MPV 9.8 Immature Gran % (Auto) 0.3 Neut % (Auto) 57.6 Lymph % (Auto) 32.1 [place] % (Auto) 9.6 Eos % (Auto) 0.1 Baso % (Auto) 0.3 Lymph # (Auto) 3.6 [place] # (Auto) 1.1 Eos # (Auto) 0.0 Baso # (Auto) 0.0 Abs Immat Gran (auto) 0.03 Absolute Neuts (auto) 6.4 Absolute Nucleated RBC 0.000 Nucleated RBC % (auto) 0.0 PT INR Anion Gap 12 Estim Creat Clear Calc 137.4 Estimated GFR > 60 POC Glucose 156 H 216 H Random Glucose 164 H Estimat Average Glucose 206 Hemoglobin A1c % 8.8 H Lactic Acid Lactic Acid F/U @ 2Hr Calcium 8.6 D Magnesium 2.2 Total Bilirubin AST ALT Alkaline Phosphatase Troponin I High Sens Total Protein Albumin Lipase Beta-Hydroxybutyrate Assessment and Plan (1) Intractable abdominal pain: Status: Acute (2) Gastroparesis: Status: Acute Plan Patient is a 64-year-old male with a past medical history significant for multiple prior abdominal surgeries, hypertension, diabetes, ischemic bowel on Xarelto (has not taken x3 days), HFrEF, gastroparesis, gastritis, history NSTEMI, MDD, PVCs, paroxysmal a fib and osteomyelitis who presented to the ED due to abdominal pain and vomiting for the past 3 days. Intractable abd pain with nausea and vomiting Concerning for gastroparesis vs gastritis vs ischemic bowel Non-con CT negative; pt with chronic mesenteric ischema Analgesics for pain management, antiemetics, PPI, Reglan IVF and NPO for now, advance diet as tolerated CTA abd/pelvis cannot be done as pt only has IJ GI consult acute lactic acidosis, resolved likely secondary to severe vomiting and lack of PO intake resovled with IVF chronic anemia, stable monitor CBC HTN continue metoprolol and losartan IDDM with hyperglycemia currently NPO SSI Q6H lantus 10U QHS to be resumed when pt taking PO paroxysmal a fib continue metoprolol continue xarelto diabetic neuropathy gabapentin HFrEF, no acute exacebation continue Lasix class 2 obesity weight loss encouraged full code VTE prophy: lovenox Pt is still NPO and experiencing intractable nausea and abdominal pain. Pt will be continued hospitalization for IVF, pain and nausea control, and specialist consultation with GI. Quality Stroke Does the patient have a stroke diagnosis?: No VTE Prior VTE?: No VTE Risk Level:: Medical - moderate - high VTE Device Contraindication: Treatment Not Indicated VTE Drug Contraindication: N/A - Med Ordered
[2025-08-29] MEDS: Aspirin Enteric Coated 81 MG TABLET.DR PO (15:22)
[2025-08-29 16:32] LABS: Glucose, Whole Blood 197 mg/dL (60-115)
[2025-08-29] MEDS: oxyCODONE HCl Immed Release 5 MG TABLET 10 MG PO (17:26)
[2025-08-30 00:04] LABS: Glucose, Whole Blood 221 mg/dL (60-115)
[2025-08-30 03:05] VITALS: BP 130/58; PULSE 71; RESP 16; TEMP 36.1; O2SAT 94
[2025-08-30 05:43] LABS: MANUAL DIFF FLAG NO
[2025-08-30 05:45] LABS: Hematocrit 35.0 % (42.0-52.0); Hemoglobin 11.9 g/dl (14.0-18.0); Imm Gran Abs Auto 0.03 X10*3/uL (0.00-0.03); Imm Gran Pct Auto 0.4 % (0.0-0.4); Lymphocytes Absolute Auto 3.2 X10*3/uL (1.2-4.9); Mean Corpuscular HGB Conc 34.0 g/dl (31.0-36.0); Mean Corpuscular Hemoglobin 29.2 pg (27.0-33.0); Mean Corpuscular Volume 86.0 fL (80.0-98.0); NRBC Abs Auto 0.000 X10*3/uL (0.0-0.012); NRBC Pct Auto 0.0 /100WBC (0.0-0.2); Platelet Count 292 X10*3/uL (160-400); Red Blood Count 4.07 X10*6/uL (4.60-5.80); White Blood Count 8.1 X10*3/uL (4.8-10.8)
[2025-08-30 06:01] LABS: Anion Gap 10 (12-20); Blood Urea Nitrogen 6 mg/dL (9-16); Calcium 8.5 mg/dL (8.4-10.2); Carbon Dioxide 24 mmol/L (22-29); Chloride 107 mmol/L (96-108); Creatinine Clr Calc Pharmacy 144.3; Estimated Glomerular Filt Rate > 60; Magnesium 2.1 mg/dL (1.6-2.6); Potassium 3.3 mmol/L (3.3-5.1); Sodium 138 mmol/L (135-145)
[2025-08-30 06:04] LABS: Glucose, Whole Blood 181 mg/dL (60-115)
[2025-08-30] MEDS: Aspirin Enteric Coated 81 MG TABLET.DR PO (07:23)
[2025-08-30] MEDS: Flu Vacc TS2025-26(6mo up)/PF 0.5 ML SYRINGE IM (07:24)
[2025-08-30 07:43] VITALS: BP 118/62; PULSE 74; RESP 16; TEMP 36.3; O2SAT 98
[2025-08-30] MEDS: Metoprolol Succinate ER 25 MG TAB.ER.24H PO (07:55)
[2025-08-30] MEDS: oxyCODONE HCl Immed Release 5 MG TABLET 10 MG PO ×3 (10:21→23:35)
[2025-08-30] MEDS: oxyCODONE HCl Immed Release 5 MG TABLET PO (10:21)
[2025-08-30 11:03] LABS: Glucose, Whole Blood 178 mg/dL (60-115)
[2025-08-30] MEDS: Dextrose 5 % and 0.45 % NaCl 1,000 ML 75 ML IVCONT (11:31)
--- NOTE | 2025-08-30 14:37 | MHC.CM.PN ---
Patient lives at home w/ . Ambulates w/ cane, sometimes walker. Independent w/ care. No services. PCP Marley Rick MD HCP on file and verified. DP: Goal is home self care. to transport. CM will continue to follow.
[2025-08-30 15:39] VITALS: BP 128/68; PULSE 67; RESP 16; TEMP 36; O2SAT 96
[2025-08-30 16:07] LABS: Glucose, Whole Blood 222 mg/dL (60-115)
--- NOTE | 2025-08-30 16:56 | HO.PM.IMPN ---
Subjective Subjective Date of Service: 08/30/25 Interval History: Abdominal pain improved; still central and nonradiating Some nausea, no vomiting Pt reports passing gas but no bowel movement yet Would like to trial clear liquids for now Review of Systems Review of Systems: Yes all other systems are reviewed and are negative Physical Exam Exam: Exam: General: AOx3, no acute distress Resp: CTA bilaterally CVS: S1, S2, RRR GI: +BS, no distention, NT; overall abd exam benign Skin: Warm, dry Neuro: Cranial nerves II-XII grossly intact bilaterally. Motor grossly intact bilaterally Extremities: No edema Psych: Appropriate affect Vital Signs: Vital Signs: Last Vital Signs Temp 96.8 F 08/30/25 15:39 Pulse 67 08/30/25 15:39 Resp 16 08/30/25 15:39 BP 128/68 08/30/25 15:39 Pulse Ox 96 08/30/25 15:39 O2 Del Method Room Air 08/30/25 15:39 BMI result Body Mass Index 34.4 Objective Data Active Medications Acetaminophen (Acetaminophen 325 Mg Tablet) 975 mg PO Q6H PRN PRN Reason: Pain, Mild 1-3,fever,headache Aspirin (Aspirin Enteric Coated 81 Mg Tablet.) 81 mg PO DAILY [facility] Last Admin: 08/30/25 07:23 Dose: 81 mg Documented By: MAMIE Atorvastatin Calcium (Atorvastatin Calcium 80 Mg Tablet) 80 mg PO BEDTIME [facility] Last Admin: 08/29/25 20:32 Dose: 80 mg Documented By: YAMILETH Calcium Carbonate (Calcium Carbonate 750 Mg Tab.Chew) 750 mg PO Q4H PRN PRN Reason: Heartburn Dextrose (Dextrose 50 % 25 Gm/50 Ml Syringe) 25 gm IVPUSH Q15M PRN; Protocol PRN Reason: per Hypoglycemia Standing Ord. Ezetimibe (Ezetimibe 10 Mg Tablet) 10 mg PO BEDTIME [facility] Last Admin: 08/29/25 20:31 Dose: 10 mg Documented By: YAMILETH Furosemide (Furosemide 20 Mg Tablet) 20 mg PO DAILY [facility]; Protocol Last Admin: 08/30/25 07:23 Dose: 20 mg Documented By: MAMIE Gabapentin (Gabapentin 300 Mg Capsule) 300 mg PO TID [facility] Last Admin: 08/30/25 14:21 Dose: 300 mg Documented By: MAMIE Glucose (Glucose Gel 15 Gm Gel..Gram.) 15 gm PO Q15M PRN; Protocol PRN Reason: per Hypoglycemia Standing Ord. Hydromorphone HCl (Hydromorphone Hcl 1 Mg/Ml Syringe) 1 mg IVPUSH Q4H PRN; Protocol PRN Reason: Pain, Severe (Pain Scale 7-10) Last Admin: 08/30/25 15:23 Dose: 1 mg Documented By: MAMIE Dextrose/Sodium Chloride (D51/2ns) 1,000 mls @ 75 mls/hr IVCONT .[id number] [facility] Last Admin: 08/30/25 11:31 Dose: 75 mls/hr Documented By: MAMIE Insulin Human Lispro (Insulin Lispro 100 Unit/Ml 3 Ml Vial) 0 unit SUBCUT QIDACHS [facility]; Protocol Last Admin: 08/30/25 16:18 Dose: 4 unit Documented By: MAMIE Loratadine (Loratadine 10 Mg Tablet) 10 mg PO DAILY [facility] Last Admin: 08/30/25 07:23 Dose: 10 mg Documented By: MAMIE Losartan Potassium (Losartan Potassium 25 Mg Tablet) 25 mg PO DAILY [facility]; Protocol Last Admin: 08/30/25 07:23 Dose: 25 mg Documented By: MAMIE Magnesium Hydroxide (Milk Of Magnesia 30 Ml Oral.Susp) 30 ml PO DAILY PRN PRN Reason: Constipation Meclizine HCl (Meclizine Hcl 25 Mg Tablet) 25 mg PO TID PRN PRN Reason: Dizziness Or Vertigo Melatonin (Melatonin 3 Mg Tablet) 6 mg PO BEDTIME PRN PRN Reason: Insomnia Metoclopramide HCl (Metoclopramide Hcl 10 Mg Tablet) 10 mg PO Q8H PRN PRN Reason: Nausea and Vomiting Last Admin: 08/30/25 07:24 Dose: 10 mg Documented By: MAMIE Metoprolol Succinate (Metoprolol Succinate Er 25 Mg Tab.Er.24h) 25 mg PO DAILY [facility]; Protocol Last Admin: 08/30/25 07:55 Dose: 25 mg Documented By: MAMIE Nystatin (Nystatin Powder 15 Gm Bottle) 1 appl TOPICAL TID PRN; Protocol PRN Reason: apply to groin Omeprazole (Omeprazole 20 Mg Capsule.) 20 mg PO DAILY@0630 [facility] Last Admin: 08/30/25 06:06 Dose: 20 mg Documented By: YAMILETH Ondansetron HCl (Ondansetron Hcl 4 Mg/2 Ml Vial) 4 mg IVPUSH Q8H PRN PRN Reason: Nausea and Vomiting Last Admin: 08/30/25 03:01 Dose: 4 mg Documented By: YAMILETH Oxycodone HCl (Oxycodone Hcl Immed Release 5 Mg Tablet) 5 mg PO Q6H PRN PRN Reason: Pain, Moderate(Pain Scale 4-6) Last Admin: 08/30/25 10:21 Dose: 5 mg Documented By: MAMIE Oxycodone HCl (Oxycodone Hcl Immed Release 5 Mg Tablet) 10 mg PO Q4H PRN PRN Reason: Pain, Moderate(Pain Scale 4-6) Last Admin: 08/30/25 14:21 Dose: 10 mg Documented By: MAMIE Rivaroxaban (Rivaroxaban 20 Mg Tablet) 20 mg PO DAILY@1700 [facility] Last Admin: 08/30/25 16:17 Dose: 20 mg Documented By: MAMIE Sodium Chloride (0.9 % Sodium Chloride Flush 3 Ml Syringe) 3 ml IVFLUSH QSHIFT [facility] Last Admin: 08/30/25 12:29 Dose: Not Given Documented By: MAMIE Non-Admin Reason: IV Running Venlafaxine HCl (Venlafaxine Hcl 25 Mg Tablet) 100 mg PO BID [facility] Last Admin: 08/30/25 07:54 Dose: 100 mg Documented By: MAMIE Labs 08/30/25 05:04 08/30/25 05:04 Labs: Laboratory Results - last 24 hr 08/29/25 08/30/25 08/30/25 23:56 05:04 06:00 MCV 86.0 MCH 29.2 MCHC 34.0 RDW 13.8 Plt Count 292 MPV 9.9 Immature Gran % (Auto) 0.4 Neut % (Auto) 48.4 Lymph % (Auto) 38.9 [place] % (Auto) 9.7 Eos % (Auto) 2.0 Baso % (Auto) 0.6 Lymph # (Auto) 3.2 [place] # (Auto) 0.8 Eos # (Auto) 0.2 Baso # (Auto) 0.1 Abs Immat Gran (auto) 0.03 Absolute Neuts (auto) 3.9 Absolute Nucleated RBC 0.000 Nucleated RBC % (auto) 0.0 Anion Gap 10 L Estim Creat Clear Calc 144.3 Estimated GFR > 60 POC Glucose 221 H 181 H Random Glucose 190 H Calcium 8.5 Magnesium 2.1 08/30/25 08/30/25 10:58 16:02 MCV MCH MCHC RDW Plt Count MPV Immature Gran % (Auto) Neut % (Auto) Lymph % (Auto) [place] % (Auto) Eos % (Auto) Baso % (Auto) Lymph # (Auto) [place] # (Auto) Eos # (Auto) Baso # (Auto) Abs Immat Gran (auto) Absolute Neuts (auto) Absolute Nucleated RBC Nucleated RBC % (auto) Anion Gap Estim Creat Clear Calc Estimated GFR POC Glucose 178 H 222 H Random Glucose Calcium Magnesium Assessment and Plan (1) Gastroparesis: Status: Acute (2) Intractable nausea and vomiting: Status: Acute Plan Patient is a 64-year-old male with a past medical history significant for multiple prior abdominal surgeries, hypertension, diabetes, ischemic bowel on Xarelto (has not taken x3 days), HFrEF, gastroparesis, gastritis, history NSTEMI, MDD, PVCs, paroxysmal a fib and osteomyelitis who presented to the ED due to abdominal pain and vomiting for the past 3 days. Intractable abd pain with nausea and vomiting Concerning for gastroparesis vs gastritis vs ischemic bowel Non-con CT negative; pt with chronic mesenteric ischema Analgesics for pain management, antiemetics, PPI, Reglan Clear liquid diet for now, advance diet as tolerated CTA abd/pelvis cannot be done as pt only has IJ GI consulted, will hold on EGD, and consider erythromycin 250 mg IV b.i.d. x2 days if unable to advance diet acute lactic acidosis, resolved likely secondary to severe vomiting and lack of PO intake resolved with IVF chronic anemia, stable monitor CBC HTN continue metoprolol and losartan IDDM with hyperglycemia SSI resume home lantus paroxysmal a fib continue metoprolol continue xarelto diabetic neuropathy gabapentin HFrEF, no acute exacebation continue Lasix class 2 obesity weight loss encouraged full code VTE prophy: lovenox Pt requires continued hospitalization while awaiting return to full diet and bowel function. Quality Stroke Does the patient have a stroke diagnosis?: No VTE Prior VTE?: No VTE Risk Level:: Medical - moderate - high VTE Device Contraindication: Treatment Not Indicated VTE Drug Contraindication: N/A - Med Ordered
[2025-08-30 19:01] VITALS: BP 110/53; PULSE 66; RESP 16; TEMP 36.2; O2SAT 98
[2025-08-30 20:09] LABS: Glucose, Whole Blood 188 mg/dL (60-115)
[2025-08-30] MEDS: Insulin Glargine,Hum.rec.anlog 100 UNIT/ML 10 ML VIAL 10 UNIT SUBCUT (22:00)
[2025-08-31] MEDS: Dextrose 5 % and 0.45 % NaCl 1,000 ML 75 ML IVCONT (00:21)
[2025-08-31 03:23] VITALS: BP 92/45; PULSE 59; RESP 15; TEMP 36.1; O2SAT 94
[2025-08-31 04:35] VITALS: BP 106/55; PULSE 64
[2025-08-31 06:25] LABS: MANUAL DIFF FLAG NO
[2025-08-31 06:50] LABS: Anion Gap 10 (12-20); Blood Urea Nitrogen 6 mg/dL (9-16); Calcium 8.2 mg/dL (8.4-10.2); Carbon Dioxide 24 mmol/L (22-29); Chloride 107 mmol/L (96-108); Creatinine Clr Calc Pharmacy 139.6; Estimated Glomerular Filt Rate > 60; Magnesium 2.0 mg/dL (1.6-2.6); Potassium 3.6 mmol/L (3.3-5.1); Sodium 137 mmol/L (135-145)
[2025-08-31 06:58] LABS: Hematocrit 35.0 % (42.0-52.0); Hemoglobin 11.6 g/dl (14.0-18.0); Imm Gran Abs Auto 0.02 X10*3/uL (0.00-0.03); Imm Gran Pct Auto 0.3 % (0.0-0.4); Lymphocytes Absolute Auto 2.9 X10*3/uL (1.2-4.9); Mean Corpuscular HGB Conc 33.1 g/dl (31.0-36.0); Mean Corpuscular Hemoglobin 29.0 pg (27.0-33.0); Mean Corpuscular Volume 87.5 fL (80.0-98.0); NRBC Abs Auto 0.000 X10*3/uL (0.0-0.012); NRBC Pct Auto 0.0 /100WBC (0.0-0.2); Platelet Count 284 X10*3/uL (160-400); Red Blood Count 4.00 X10*6/uL (4.60-5.80); White Blood Count 7.3 X10*3/uL (4.8-10.8)
[2025-08-31 07:28] VITALS: BP 122/56; PULSE 63; RESP 12; TEMP 36; O2SAT 95
[2025-08-31 07:42] LABS: Glucose, Whole Blood 225 mg/dL (60-115)
[2025-08-31] MEDS: Aspirin Enteric Coated 81 MG TABLET.DR PO (07:54)
[2025-08-31] MEDS: oxyCODONE HCl Immed Release 5 MG TABLET 10 MG PO ×4 (07:55→21:15)
[2025-08-31] MEDS: Insulin Glargine,Hum.rec.anlog 100 UNIT/ML 10 ML VIAL 8 UNIT SUBCUT (07:55)
[2025-08-31] MEDS: Metoprolol Succinate ER 25 MG TAB.ER.24H PO (07:55)
[2025-08-31 11:21] LABS: Glucose, Whole Blood 129 mg/dL (60-115)
--- NOTE | 2025-08-31 11:55 | MHC.CM.PN ---
Not medically cleared for dc at this time. CM will continue to follow.
[2025-08-31] MEDS: 0.9 % Sodium Chloride Flush 3 ML SYRINGE IVFLUSH ×2 (14:19→20:15)
--- NOTE | 2025-08-31 15:16 | P.PNIM_ITS ---
Subjective Subjective Date of Service: 08/31/25 Interval History: Still experiencing abdominal pain Nausea only occasionally controlled Ate dinner last night, but was unable to eat breakfast this morning Reports had bowel movement yesterday Physical Exam 2 Exam: Exam: General: AOx3, no acute distress Resp: CTA bilaterally CVS: S1, S2, RRR GI: +BS, no distention, mild central abd tenderness. No rebound tenderness or guarding Skin: Warm, dry Neuro: Cranial nerves II-XII grossly intact bilaterally. Motor grossly intact bilaterally Extremities: No edema Psych: Appropriate affect Vital Signs: Vital Signs: Last Vital Signs Temp 96.8 F 08/31/25 07:28 Pulse 63 08/31/25 07:28 Resp 12 08/31/25 07:28 BP 122/56 L 08/31/25 07:28 Pulse Ox 95 08/31/25 07:28 O2 Del Method Room Air 08/31/25 07:28 BMI result Body Mass Index 34.4 Objective Data Active Medications Acetaminophen (Acetaminophen 325 Mg Tablet) 975 mg PO Q6H PRN PRN Reason: Pain, Mild 1-3,fever,headache Aspirin (Aspirin Enteric Coated 81 Mg Tablet.) 81 mg PO DAILY [facility] Last Admin: 08/31/25 07:54 Dose: 81 mg Documented By: JOSE DAVID Atorvastatin Calcium (Atorvastatin Calcium 80 Mg Tablet) 80 mg PO BEDTIME [facility] Last Admin: 08/30/25 20:12 Dose: 80 mg Documented By: MIKY Calcium Carbonate (Calcium Carbonate 750 Mg Tab.Chew) 750 mg PO Q4H PRN PRN Reason: Heartburn Dextrose (Dextrose 50 % 25 Gm/50 Ml Syringe) 25 gm IVPUSH Q15M PRN; Protocol PRN Reason: per Hypoglycemia Standing Ord. Ezetimibe (Ezetimibe 10 Mg Tablet) 10 mg PO BEDTIME [facility] Last Admin: 08/30/25 20:12 Dose: 10 mg Documented By: MIKY Furosemide (Furosemide 20 Mg Tablet) 20 mg PO DAILY [facility]; Protocol Last Admin: 08/31/25 07:54 Dose: 20 mg Documented By: JOSE DAVID Gabapentin (Gabapentin 300 Mg Capsule) 300 mg PO TID [facility] Last Admin: 08/31/25 14:17 Dose: 300 mg Documented By: JOSE DAVID Glucose (Glucose Gel 15 Gm Gel..Gram.) 15 gm PO Q15M PRN; Protocol PRN Reason: per Hypoglycemia Standing Ord. Hydromorphone HCl (Hydromorphone Hcl 1 Mg/Ml Syringe) 1 mg IVPUSH Q4H PRN; Protocol PRN Reason: Pain, Severe (Pain Scale 7-10) Last Admin: 08/31/25 14:46 Dose: 1 mg Documented By: JOSE DAVID Dextrose/Sodium Chloride (D51/2ns) 1,000 mls @ 75 mls/hr IVCONT .[id number] WILLIAM On Hold: 08/31/25 08:13 Last Infusion: 08/31/25 08:44 Dose: Infused Documented By: JOSE DAVID Insulin Glargine (Insulin Glargine,Hum.Rec.Anlog 100 Unit/Ml 10 Ml Vial) 10 unit SUBCUT BEDTIME [facility] Last Admin: 08/30/25 22:00 Dose: 10 unit Documented By: MIKY Insulin Glargine (Insulin Glargine,Hum.Rec.Anlog 100 Unit/Ml 10 Ml Vial) 8 unit SUBCUT DAILY [facility] Last Admin: 08/31/25 07:55 Dose: 8 unit Documented By: JOSE DAVID Insulin Human Lispro (Insulin Lispro 100 Unit/Ml 3 Ml Vial) 0 unit SUBCUT QIDACHS [facility]; Protocol Last Admin: 08/31/25 11:36 Dose: Not Given Documented By: JOSE DAVID Non-Admin Reason: No Insulin Coverage Loratadine (Loratadine 10 Mg Tablet) 10 mg PO DAILY [facility] Last Admin: 08/31/25 07:54 Dose: 10 mg Documented By: JOSE DAVID Losartan Potassium (Losartan Potassium 25 Mg Tablet) 25 mg PO DAILY [facility]; Protocol Last Admin: 08/31/25 07:54 Dose: 25 mg Documented By: JOSE DAVID Magnesium Hydroxide (Milk Of Magnesia 30 Ml Oral.Susp) 30 ml PO DAILY PRN PRN Reason: Constipation Meclizine HCl (Meclizine Hcl 25 Mg Tablet) 25 mg PO TID PRN PRN Reason: Dizziness Or Vertigo Melatonin (Melatonin 3 Mg Tablet) 6 mg PO BEDTIME PRN PRN Reason: Insomnia Metoclopramide HCl (Metoclopramide Hcl 10 Mg Tablet) 10 mg PO Q8H PRN PRN Reason: Nausea and Vomiting Last Admin: 08/31/25 03:12 Dose: 10 mg Documented By: MIKY Metoprolol Succinate (Metoprolol Succinate Er 25 Mg Tab.Er.24h) 25 mg PO DAILY [facility]; Protocol Last Admin: 08/31/25 07:55 Dose: 25 mg Documented By: JOSE DAVID Nystatin (Nystatin Powder 15 Gm Bottle) 1 appl TOPICAL TID PRN; Protocol PRN Reason: apply to groin Omeprazole (Omeprazole 20 Mg Capsule.Dr) 20 mg PO DAILY@0630 [facility] Last Admin: 08/31/25 04:41 Dose: 20 mg Documented By: MIKY Ondansetron HCl (Ondansetron Hcl 4 Mg/2 Ml Vial) 4 mg IVPUSH Q8H PRN PRN Reason: Nausea and Vomiting Last Admin: 08/31/25 09:52 Dose: 4 mg Documented By: JOSE DAVID Oxycodone HCl (Oxycodone Hcl Immed Release 5 Mg Tablet) 5 mg PO Q6H PRN PRN Reason: Pain, Moderate(Pain Scale 4-6) Last Admin: 08/30/25 10:21 Dose: 5 mg Documented By: MAMIE Oxycodone HCl (Oxycodone Hcl Immed Release 5 Mg Tablet) 10 mg PO Q4H PRN PRN Reason: Pain, Moderate(Pain Scale 4-6) Last Admin: 08/31/25 11:48 Dose: 10 mg Documented By: MARY Rivaroxaban (Rivaroxaban 20 Mg Tablet) 20 mg PO DAILY@1700 [facility] Last Admin: 08/30/25 16:17 Dose: 20 mg Documented By: MAMIE Sodium Chloride (0.9 % Sodium Chloride Flush 3 Ml Syringe) [facility] Last Admin: 08/31/25 14:19 Dose: 3 ml Documented By: JOSE DAVID Venlafaxine HCl (Venlafaxine Hcl 25 Mg Tablet) 100 mg PO BID [facility] Last Admin: 08/31/25 09:38 Dose: 100 mg Documented By: JOSE DAVID Labs 08/31/25 05:39 08/31/25 05:39 Labs: Laboratory Results - last 24 hr 08/30/25 08/30/25 08/31/25 16:02 20:03 05:39 MCV 87.5 MCH 29.0 MCHC 33.1 RDW 13.6 Plt Count 284 MPV 10.3 Immature Gran % (Auto) 0.3 Neut % (Auto) 47.5 Lymph % (Auto) 39.6 [place] % (Auto) 8.5 Eos % (Auto) 3.3 Baso % (Auto) 0.8 Lymph # (Auto) 2.9 [place] # (Auto) 0.6 Eos # (Auto) 0.2 Baso # (Auto) 0.1 Abs Immat Gran (auto) 0.02 Absolute Neuts (auto) 3.5 Absolute Nucleated RBC 0.000 Nucleated RBC % (auto) 0.0 Anion Gap 10 L Estim Creat Clear Calc 139.6 Estimated GFR > 60 POC Glucose 222 H 188 H Random Glucose 224 H Calcium 8.2 L Magnesium 2.0 08/31/25 08/31/25 07:31 11:15 MCV MCH MCHC RDW Plt Count MPV Immature Gran % (Auto) Neut % (Auto) Lymph % (Auto) [place] % (Auto) Eos % (Auto) Baso % (Auto) Lymph # (Auto) [place] # (Auto) Eos # (Auto) Baso # (Auto) Abs Immat Gran (auto) Absolute Neuts (auto) Absolute Nucleated RBC Nucleated RBC % (auto) Anion Gap Estim Creat Clear Calc Estimated GFR POC Glucose 225 H 129 H Random Glucose Calcium Magnesium Assessment and Plan (1) Intractable nausea and vomiting: Status: Acute (2) Intractable abdominal pain: Status: Acute (3) Gastroparesis: Status: Acute Plan Patient is a 64-year-old male with a past medical history significant for multiple prior abdominal surgeries, hypertension, diabetes, ischemic bowel on Xarelto (has not taken x3 days), HFrEF, gastroparesis, gastritis, history NSTEMI, MDD, PVCs, paroxysmal a fib and osteomyelitis who presented to the ED due to abdominal pain and vomiting for the past 3 days. Intractable abd pain with nausea and vomiting Concerning for gastroparesis vs gastritis, ischemic bowel less likely Non-con CT negative; pt with chronic mesenteric ischema Analgesics for pain management, antiemetics, PPI, Reglan Will trial full solid diet GI consulted, will hold on EGD and consider erythromycin 250 mg IV b.i.d. x2 days if unable to advance diet Reports BM yesterday night; normally has one every 2-3 days acute lactic acidosis, resolved likely secondary to severe vomiting and lack of PO intake resolved with IVF chronic anemia, stable monitor CBC HTN continue metoprolol and losartan IDDM with hyperglycemia SSI resume home lantus paroxysmal a fib continue metoprolol continue xarelto diabetic neuropathy gabapentin HFrEF, no acute exacebation continue Lasix class 2 obesity weight loss encouraged full code VTE prophy: lovenox Pt requires continued hospitalization while awaiting return to full diet and bowel function Quality Stroke Does the patient have a stroke diagnosis?: No VTE Prior VTE?: No VTE Risk Level:: Medical - moderate - high VTE Device Contraindication: Treatment Not Indicated VTE Drug Contraindication: N/A - Med Ordered
[2025-08-31 15:18] VITALS: BP 112/54; PULSE 60; RESP 18; TEMP 36.2; O2SAT 98
[2025-08-31 15:49] LABS: Glucose, Whole Blood 127 mg/dL (60-115)
[2025-08-31 19:15] VITALS: BP 145/65; PULSE 60; RESP 18; TEMP 36.6; O2SAT 96
[2025-08-31 19:44] LABS: Glucose, Whole Blood 152 mg/dL (60-115)
[2025-08-31] MEDS: Insulin Glargine,Hum.rec.anlog 100 UNIT/ML 10 ML VIAL 10 UNIT SUBCUT (20:13)
[2025-09-01] MEDS: oxyCODONE HCl Immed Release 5 MG TABLET 10 MG PO ×3 (01:34→10:39)
[2025-09-01 03:14] VITALS: BP 120/59; PULSE 64; RESP 17; TEMP 36.1; O2SAT 92
[2025-09-01 07:40] LABS: Glucose, Whole Blood 122 mg/dL (60-115)
[2025-09-01 08:00] VITALS: BP 127/62; PULSE 100; RESP 18; TEMP 36.6; O2SAT 98
[2025-09-01] MEDS: Aspirin Enteric Coated 81 MG TABLET.DR PO (08:23)
[2025-09-01] MEDS: Insulin Glargine,Hum.rec.anlog 100 UNIT/ML 10 ML VIAL 8 UNIT SUBCUT (08:24)
[2025-09-01] MEDS: Metoprolol Succinate ER 25 MG TAB.ER.24H PO (08:24)
[2025-09-01] MEDS: 0.9 % Sodium Chloride Flush 3 ML SYRINGE IVFLUSH (08:25)
--- NOTE | 2025-09-01 09:05 | MHC.CM.PN ---
Per hospitalist, patient medically cleared for dc home self care. aware and will transport.
--- NOTE | 2025-09-01 09:27 | PM.DS ---
DS: Providers Provider Date of Service: 09/01/25 Date of admission: 08/28/25 19:44 Date of discharge: 09/01/25 Primary care physician: Marley Rick MD Consults: 08/28/25 21:31 Consult to Gastroenterology Routine Consulting Provider: [facility] [place] Gastroenterology Services Reason for consultation: severe abd pain N/V, recent ischemic colitis Has provider been notified: No DS: Diagnosis Discharge Diagnosis (1) Intractable nausea and vomiting: Status: Acute (2) Intractable abdominal pain: Status: Acute (3) Gastroparesis: Status: Acute DS: Summary Hospital Course Hospital Course: From admission HPI: Date of Service: 08/28/25 Attending physician on admission: Amanda Jennings Chief Complaint: nausea, vomiting, abd pain Patient is a 64-year-old male with a past medical history significant for multiple prior abdominal surgeries, hypertension, diabetes, ischemic bowel on Xarelto (has not taken x3 days), HFrEF, gastroparesis, gastritis, history NSTEMI, MDD, PVCs, paroxysmal a fib and osteomyelitis who presented to the ED due to abdominal pain and vomiting for the past 3 days. The pain is located in the epigastric and left upper quadrant. This feels similar to previous episode of gastroparesis. The patient was also recently hospitalized for mesenteric ischemia and treated conservatively with bowel rest, IV fluids, antibiotics and anticoagulation. He reports significant nausea and vomiting for the past 3 days and has been unable to tolerate anything p.o. including fluids or solids. He reports he has not been taking his he denies any hematemesis melena or hematochezia. Last BM this morning, no diarrhea. No fever or chills. He denies any urinary symptoms or URI symptoms. Hospital course Pt admitted to the hospital for intractable abdominal pain with nausea and vomiting. Pt has a long complicated abdominal hx including chronic mesenteric ischemia. Workup in the ED included CTA of abdomen/pelvis that was negative for acute abdomen, and pt's symptoms concerning for diabetic gastroparesis. Pt was treated with IVF, IV analgesics, and IV antiemetics with slow improvement of symptoms. Patient's diet was slowly advanced, though yesterday pt was unable to tolerate breakfast and had additional pain and nausea in the afternoon. Pt was able to tolerate dinner and breakfast this morning, and will be discharged home with oral analgesics. Pt has a long hx of chronic back and abdominal pain, and current regimen of oxy 10 mg q.4h does not appear to be adequate for his symptoms. He will be referred to the pain Clinic for additional management of his chronic pain. He is also strongly encouraged to control his diabetes as this may also help prevent recurrent symptoms. You should resume all of his other home medications. Time Attestation Discharge Coordination Time (in mins): 35 Quality: Safe Use of Opioids Does Pt have an Active Cancer Diagnosis on the Problem List?: No Quality: Stroke Does the patient have a stroke diagnosis?: No Physical Exam Exam: Exam: General: AOx3, no acute distress Resp: CTA bilaterally CVS: S1, S2, RRR GI: +BS, no distention, no significant tenderness. Abd exam overall benign Skin: Warm, dry Neuro: Cranial nerves II-XII grossly intact bilaterally. Motor grossly intact bilaterally Extremities: No edema Psych: Appropriate affect Vital Signs: Vital Signs: Last Vital Signs Temp 97.8 F 09/01/25 08:00 Pulse 100 09/01/25 08:00 Resp 18 09/01/25 08:00 BP 127/62 09/01/25 08:00 Pulse Ox 98 09/01/25 08:00 O2 Del Method Room Air 09/01/25 08:00 BMI result Body Mass Index 34.4 DS: Data Data Completed and Pending Completed studies during hospitalization [Text1]: Procedures Detachment at Left 1st Toe, Complete, Open Approach (01/03/22) Drainage of Pelvic Region Subcutaneous Tissue and Fascia, Open Approach (04/30/23) Fluoroscopy of Left Lower Extremity Arteries using High Osmolar Contrast (08/04/22) Fluoroscopy of Right Subclavian Vein using Low Osmolar Contrast, Guidance (08/04/22) Insertion of Infusion Device into Right Subclavian Vein, Percutaneous Approach (08/04/22) Insertion of Infusion Device into Superior Vena Cava, Percutaneous Approach (01/20/22) Ultrasonography of Superior Vena Cava, Guidance (01/03/22) Labs on day of discharge: Laboratory Results - last 24 hr 08/31/25 08/31/25 08/31/25 11:15 15:43 19:38 POC Glucose 129 H 127 H 152 H 09/01/25 07:22 POC Glucose 122 H Discharge Plan Discharge Anticipated Discharge Date/Time: 09/01/25 09:04 Patient Disposition: Home, Self-Care Discharge Diagnosis: Intractable abdominal pain Referrals: Marley Rick MD [Primary Care Provider, Internal Medicine] - 1 Week Claire Geiger FNP [Nurse Practitioner, Pain Management] - 1 Week Referral Note: Pt on chronic oxy 10mg; continues to complain of chronic abd pain Discharge Medications: New hydromorphone [Dilaudid] 2 mg tablet 2 mg PO TID PRN (Reason: pain, severe) Qty: 15 0RF Rx Instructions: Partial Fill upon patient request. Continued (DME) walker [facility] [place] See Rx Instructions .Route Qty: 1 0RF Rx Instructions: As directed (DME) Aircast off loading boot Kit See Rx Instructions .Route Qty: 1 0RF Rx Instructions: As directed (DME) elastic bandage 6 X 1.8 -yard bandage See Rx Instructions .Route Qty: 6 0RF Rx Instructions: As directed (DME) gauze bandage [Band-Aid Gauze Pads] 4 X 4 bandage See Rx Instructions .Route Qty: 25 3RF Rx Instructions: As directed (DME) sterile gauze 4x4 See Rx Instructions .Route .MEDSUPPLY Qty: 40 3RF Rx Instructions: Apply to left foot wound every other day (DME) calcium alginate ag 4x4 pad See Rx Instructions .Route .MEDSUPPLY Qty: 5 2RF Rx Instructions: Apply to wound beds every other day insulin glargine [Lantus U-100 Insulin] 100 unit/mL solution 10 unit subcut BEDTIME losartan 25 mg tablet 25 mg PO DAILY gabapentin 300 mg capsule 300 mg PO TID loratadine 10 mg tablet 10 mg PO DAILY ezetimibe 10 mg tablet 10 mg PO BEDTIME rosuvastatin 40 mg tablet 40 mg PO BEDTIME meclizine 25 mg tablet 25 mg PO TID PRN (Reason: Dizziness Or Vertigo) (DME) jw [facility] [place] See Rx Instructions .Route Qty: 1 0RF Rx Instructions: As directed aspirin 81 mg tablet,delayed release (DR/EC) 81 mg PO DAILY furosemide 20 mg tablet 20 mg PO DAILY metoprolol succinate 25 mg tablet extended release 24 hr 25 mg PO DAILY insulin lispro 100 unit/mL solution See Protocol subcut QIDACHS Protocol: Insulin Correction Scale Less than or equal to 110 ---- Give (units): 0 111 to 150 Give (units): 0 151 to 200 Give (units): 2 201 to 250 Give (units): 4 251 to 300 Give (units): 6 301 to 350 Give (units): 8 Greater than 350 Give (units): 10 Call MD if Blood Glucose > : 350 Xarelto 20 mg tablet 20 mg PO DAILY@1700 insulin glargine [Lantus U-100 Insulin] 100 unit/mL solution 8 unit SUBCUT DAILY oxycodone 10 mg tablet 10 mg PO Q4H PRN (Reason: Pain) Qty: 10 0RF Gvoke HypoPen 2-Pack 1 mg/0.2 mL auto-injector 1 mg SUBCUT ONCE PRN (Reason: Hypoglycemia) ondansetron 4 mg tablet,disintegrating 4 mg PO Q8H PRN (Reason: Nausea And Vomiting) venlafaxine 100 mg tablet 100 mg PO BID metoclopramide HCl [Reglan] 10 mg tablet 10 mg PO Q8H PRN (Reason: nausea and vomiting) Qty: 90 0RF omeprazole 20 mg capsule,delayed release(DR/EC) 20 mg PO DAILY@0630 nystatin [Nystop] 100,000 unit/gram powder 1 appl topical TID PRN (Reason: apply to groin) Discharge Orders: Discharge Order (Routine); Ordered 09/01/25 Ordered By: Gabriel Miller Activity on Discharge: As tolerated Stand Alone Forms: Patient Portal Discharge page Print Language: Lao Care Plan Goals: See below Health Concerns: Intractable abdominal pain Gastroparesis Poorly controlled diabetes with hyperglycemia Chronic mesenteric ischemia Plan of Treatment: You were admitted to the hospital for intractable abdominal pain with nausea and vomiting. You received CT of abdomen/pelvis in the ED which was was negative for acute abdomen, and concern was for diabetic gastroparesis. You were treated with IVF, antiemetics, analgesics, and Reglan with slow improvement of symptoms. You have been able to tolerate a solid diet since yesterday, and pain and nausea has been adequately controlled. You have longstanding chronic pain and this appears to be not adequately controlled. -- you were encouraged to keep close monitoring of your blood glucose levels and adhere to a diabetic diet. Controlling your diabetes will help prevent gastroparesis and recurrent abdominal pain -- you will be referred to [facility] [place] pain clinic for management of chronic back and abdominal pain. You were currently on oxycodone 10 mg every 4 hours but this appears to not be adequate controlling symptoms -- follow up with PCP in 1 for routine post hospitalization visit Assessment: See discharge summary
--- NOTE | 2025-09-01 11:04 | PC.NURSE ---
patient discharged by manager crisisDAVID Richmond
== END 2025-09-01 10:59 | disposition home or self-care (01) | DRG 48 ==
LOC: HO.ED 17:01 → HO.EDOVER 19:55 → HO.S3 08-29 07:30
PROVIDERS: Physician Assistant; Physician Assistant Medical; Admitting Provider Internal Medicine; Emergency Provider Emergency Medicine; PCP Internal Medicine; Visit Provider Student in an Organized Health Care Education/Training Program
DX: E11.43 Type 2 diabetes mellitus with diabetic autonomic (poly)neuropathy (principal); K55.059 Acute (reversible) ischemia of intestine, part and extent unspecified; E87.21 Acute metabolic acidosis; D64.9 Anemia, unspecified; E11.65 Type 2 diabetes mellitus with hyperglycemia; E66.812 Obesity, class 2; I50.22 Chronic systolic (congestive) heart failure; I11.0 Hypertensive heart disease with heart failure; I25.10 Atherosclerotic heart disease of native coronary artery without angina pectoris; E11.40 Type 2 diabetes mellitus with diabetic neuropathy, unspecified; K31.84 Gastroparesis; I48.0 Paroxysmal atrial fibrillation; T45.516A Underdosing of anticoagulants, initial encounter; Z71.3 Dietary counseling and surveillance; K44.9 Diaphragmatic hernia without obstruction or gangrene; Z90.49 Acquired absence of other specified parts of digestive tract; K57.10 Diverticulosis of small intestine without perforation or abscess without bleeding; G89.29 Other chronic pain; R10.9 Unspecified abdominal pain; M54.9 Dorsalgia, unspecified; Z68.34 Body mass index [BMI] 34.0-34.9, adult; Z23 Encounter for immunization; Z87.891 Personal history of nicotine dependence; Z79.4 Long term (current) use of insulin; Z79.01 Long term (current) use of anticoagulants; Z79.899 Other long term (current) drug therapy
CPT/HCPCS: 36415; 71045; 74176; 80048; 80053; 82010; 82947; 83036; 83605; 83690; 83735; 84484; 85025; 85610; 90656; 93005; 99285; J0131; J1171; J1200; J1650; J1790; J2003; J2405; J2470; J2765; J3360

== ENCOUNTER → 2025-08-28 16:27 | Outpatient (BNV) | payer OTHER, SELFPAY | PROVIDERS: Admitting Provider Internal Medicine; Emergency Provider Emergency Medicine; PCP Internal Medicine; Visit Provider Radiology Diagnostic Radiology | DX: Z87.19 Personal history of other diseases of the digestive system (principal); Z45.2 Encounter for adjustment and management of vascular access device | CPT/HCPCS: 71045; 74176 ==

== ENCOUNTER → 2025-08-28 16:27 | Outpatient (BNV) | payer OTHER, SELFPAY | PROVIDERS: Admitting Provider Internal Medicine; Emergency Provider Emergency Medicine; PCP Internal Medicine; Visit Provider Internal Medicine Cardiovascular Disease | DX: R00.0 Tachycardia, unspecified (principal) | CPT/HCPCS: 93010 ==

== ENCOUNTER → 2025-08-28 19:44 | Outpatient (BNV) | payer OTHER, SELFPAY | PROVIDERS: Admitting Provider Internal Medicine; Emergency Provider Emergency Medicine; PCP Internal Medicine; Visit Provider Internal Medicine | DX: R11.2 Nausea with vomiting, unspecified (principal); K31.84 Gastroparesis; R10.9 Unspecified abdominal pain | CPT/HCPCS: 99222 ==

== ENCOUNTER → 2025-08-28 19:44 | Outpatient (BNV) | payer OTHER, SELFPAY | PROVIDERS: Admitting Provider Internal Medicine; Emergency Provider Emergency Medicine; PCP Internal Medicine; Visit Provider Physician Assistant | DX: R11.2 Nausea with vomiting, unspecified (principal); R10.9 Unspecified abdominal pain; K31.84 Gastroparesis | CPT/HCPCS: 99223; 99233 ==

== ENCOUNTER 2025-09-11 12:41 | Observation (INO) | payer OTHER, SELFPAY ==
[2025-09-11] VITALS (7 sets, daily range): BP systolic 128–222; BP diastolic 76–145; PULSE 87–118; RESP 16–22; TEMP 36.4–37.2; O2SAT 98–100; BMI 33.6
--- NOTE | ~2025-09-11 | XR_ITS ---
CLINICAL HISTORY: abdominal pain 1 view abdomen Comparison: None Findings: Normal bowel gas pattern. Normal stool quantity. No abnormal calcifications. No pneumoperitoneum or pneumatosis. Bones reveal partially imaged bilateral hip arthroplasty hardware which appears intact as visualized, and lower lumbar posterior fusion hardware, without radiographic evidence of hardware failure. Impression: 1. Normal bowel gas pattern This document has been electronically signed by: Kyle Marcus MD on 09/11/2025 14:29:56
--- NOTE | 2025-09-11 12:55 | ECG_ITS ---
Test Reason : abd pain Blood Pressure : */* mmHG Vent. Rate : 102 BPM Atrial Rate : 102 BPM P-R Int : 190 ms QRS Dur : 88 ms QT Int : 370 ms P-R-T Axes : 58 -13 73 degrees QTcB Int : 482 ms Sinus tachycardia Nonspecific ST and T wave abnormality Abnormal ECG When compared with ECG of 28-Aug-2025 16:37, No significant change was found Referred By: Generic ED Physician Electronically Signed By: SID ORTIZ
--- NOTE | 2025-09-11 13:00 | ED.GENADULT ---
HPI - General Adult General Chief complaint: Nausea/Vomiting/Diarrhea Stated complaint: ABD PAIN PER EMS Time Seen by Provider: 09/11/25 13:00 Source: patient and EMS Mode of arrival: EMS Limitations: no limitations History of Present Illness ED Provider: HPI narrative: 64-year-old male with a history of gastroparesis diabetic, hypertensive urgency, AFib on Xarelto, questionable gut ischemia, presenting with nausea vomiting chest pain for the past 3 days, has not been taking his medications and past 3 days due to his symptoms. Frequent admissions, and request for pain medication by name. Related Data Home Medications ?Medication ?Instructions ?Recorded ?Confirmed ezetimibe 10 mg tablet 10 mg PO BEDTIME 01/03/22 08/29/25 gabapentin 300 mg capsule 300 mg PO TID 01/03/22 08/29/25 insulin glargine 100 unit/mL 10 unit subcut BEDTIME 01/03/22 08/29/25 subcutaneous solution (Lantus U-100 Insulin) loratadine 10 mg tablet 10 mg PO DAILY 01/03/22 08/29/25 losartan 25 mg tablet 25 mg PO DAILY 01/03/22 08/29/25 meclizine 25 mg tablet 25 mg PO TID PRN Dizziness Or 01/03/22 08/29/25 Vertigo rosuvastatin 40 mg tablet 40 mg PO BEDTIME 01/03/22 08/29/25 aspirin 81 mg tablet,delayed 81 mg PO DAILY 08/04/22 08/29/25 release furosemide 20 mg tablet 20 mg PO DAILY 11/13/22 08/29/25 metoprolol succinate 25 mg 25 mg PO DAILY 10/14/24 08/29/25 tablet,extended release 24 hr insulin lispro 100 unit/mL See Protocol subcut QIDACHS 12/16/24 08/29/25 subcutaneous solution rivaroxaban 20 mg tablet (Xarelto) 20 mg PO DAILY@1700 12/16/24 08/29/25 insulin glargine 100 unit/mL 8 unit subcut DAILY 03/23/25 08/29/25 subcutaneous solution (Lantus U-100 Insulin) glucagon 1 mg/0.2 mL subcutaneous 1 mg subcut ONCE PRN Hypoglycemia 05/26/25 08/29/25 auto-injector (Gvoke HypoPen 2-Pack) ondansetron 4 mg disintegrating 4 mg PO Q8H PRN Nausea And Vomiting 07/19/25 08/29/25 tablet venlafaxine 100 mg tablet 100 mg PO BID 08/14/25 08/29/25 nystatin 100,000 unit/gram topical 1 appl topical TID PRN apply to 08/29/25 08/29/25 powder (Nystop) groin omeprazole 20 mg capsule,delayed 20 mg PO DAILY@0630 08/29/25 08/29/25 release Previous Rx's ?Medication ?Instructions ?Recorded walker #1 ea 01/11/22 walker #1 ea 01/15/22 Band-Aid Gauze Pads 4 X 4 #25 ea 04/16/22 bandage (gauze bandage) elastic bandage 6 X 1.8 yard #6 ea 04/16/22 off loading boot (Aircast off #1 ea 04/16/22 loading boot) calcium alginate ag #5 ea 04/23/22 sterile gauze #40 ea 04/23/22 oxycodone 10 mg tablet 10 mg PO Q4H PRN Pain #10 tabs 03/29/25 metoclopramide HCl 10 mg tablet 10 mg PO Q8H PRN nausea and 05/24/25 (Reglan) vomiting #90 tabs hydromorphone 2 mg tablet 2 mg PO TID PRN pain, severe #15 09/01/25 (Dilaudid) tabs Allergies Allergy/AdvReac Type Severity Reaction Status Date / Time morphine AdvReac Intermediate Hallucinati Verified 09/11/25 12:53 ons Review of Systems Constitutional: Constitutional: Reports as per [facility] Past Medical History Medical History Hypertensive urgency Abdominal pain PVD (peripheral vascular disease) Gastroparesis DKA (diabetic ketoacidosis) Obesity (BMI 30-39.9) PAD (peripheral artery disease) Afib Amputation of left great toe Lower limb amputation, great toe CAD (coronary artery disease) DMII (diabetes mellitus, type 2) Orthopedic hardware present Hyperglycemia Cellulitis Asthma Diabetes Hypertension FHx: bilateral hip replacements Surgical History History of amputation of toe (07/29/22) History of amputation of great toe (01/07/22) History of back surgery History of neck surgery History of ankle surgery H/O bilateral hip replacements S/P quadruple vessel bypass Family History Family History Father Cancer of neck Mother Uterus cancer Other No family history of coronary artery disease Social History Social History Household Members: Spouse and Children Household Members Other:: 3 Housing: Condominium Are you a primary care asst to a significant other at home: No Do you presently have visiting nurse or other home services: No Alcohol intake: never Comment: refused bed or chair alarm Patient Tobacco Use Status: Former Tobacco user Tobacco use type: Cigarette e-Cigarette/Vaping Use: Never Used Second Hand Smoke Exposure: No Substance Use Type: Marijuana Advance Directives: Yes Advance Directives on File: Yes Advance Directives Date on File: 07/20/25 Do you have a plan to hurt others: No Plan service: No Current occupational status: disabled Physical Exam ED Exam Exam: General: ?Appears of stated age, dry retching when I am in the room ? ?no scleral icterus ? Neck: Supple, no LAD ? ?CV: RRR, no obvious murmurs appreciated ? ?Resp: Tachypneic, no wheezing or stridor ? Abd: Generalized tenderness, bowel sounds are present ? ?MSK: FROM, strength 5/5 all extremities ? Skin: Warm, dry, intact, no jaundice ? ?Neuro: ?Alert and oriented x3, moving upper and lower extremities symmetrically, no obvious facial asymmetry noted, cranial nerves 2-12 intact Vital Signs: Vital Signs - 24 hr 09/11/25 12:52 09/11/25 14:28 Temperature 97.5 F 98.2 F Pulse Rate 108 H 118 H Respiratory Rate 22 H 20 Blood Pressure 209/125 H 165/145 H Pulse Oximetry 98 99 Oxygen Delivery Method Room Air Room Air BMI result Body Mass Index 33.6 Medications Administered Discontinued Medications Generic Name Dose Route Start Last Admin Trade Name Freq PRN Reason Stop Dose Admin Diazepam 5 mg 09/11/25 13:35 09/11/25 13:46 Diazepam 10 Mg/2 Ml Cartridge IVPUSH 09/11/25 13:36 5 mg STAT STA Administration Erythromycin Lactobionate 250 100 mls @ 100 mls/hr 09/11/25 13:35 09/11/25 14:50 mg/ Sodium Chloride IV 09/11/25 14:34 100 mls/hr ONCE ONE Administration Metoclopramide HCl 10 mg 09/11/25 13:35 09/11/25 13:52 Metoclopramide Hcl 10 Mg/2 Ml Vial IVPUSH 09/11/25 13:36 10 mg ONCE ONE Administration Pantoprazole Sodium 40 mg 09/11/25 13:35 09/11/25 13:52 Pantoprazole Sodium 40 Mg/10 Ml Vial IVPUSH 09/11/25 13:36 40 mg ONCE ONE Administration Medical Decision Making Medical Decision Making MDM Narrative: 1:41 PM 09/11/2025 (Dr. 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 And he gets admitted very frequently, right now he is presenting hypotensive, last time he was here once his symptoms were controlled it did not have to give him any medications for blood pressure, we will obtain KUB instead of CT at this time to evaluate for obstructive patterns and free air he has had close to a dozen CTs this year alone and his last CT was in the beginning of this month that was negative so hold off on that at this time 2:26 PM 09/11/2025 (Dr. Bartolome Patel): I just re-evaluated the patient, he was laying comfortably, no longer thrown up I was discussing with the him his workup 2:45 PM 09/11/2025 (Dr. Bartolome Patel): Patient has have leukocytosis, he does have lactate elevation, he was tachycardic on presentation, blood pressure is better, this is due to vomiting, dehydration I do not suspect underlying infectious etiology based on his prior presentations, recent CT, frequent episodes of leukocytosis and frequent episodes of lactate elevation Differential Diagnosis Differential Diagnoses: The differential diagnosis associated with the presentation includes (Gastroparesis, dehydration, DKA, narcotic bowel syndrome, opiate induced bowel dysfunction, dehydration, electrolyte derangements) Admission/Observation Consideration of admission/observation: Escalation of care including admission/observation considered Lab Data MDM Lab Attestation statement: I reviewed the patient's lab results. 09/11/25 13:34 09/11/25 13:34 Labs: Lab Results 09/11/25 09/11/25 09/11/25 Range/Units 12:59 13:24 13:34 WBC 13.1 H (4.8-10.8) X10*3/uL RBC 4.88 D (4.60-5.80) X10*6/uL Hgb 14.2 D (14.0-18.0) g/dl Hct 41.8 L (42.0-52.0) % MCV 85.7 (80.0-98.0) fL MCH 29.1 (27.0-33.0) pg MCHC 34.0 (31.0-36.0) g/dl RDW 13.2 (11.0-16.0) % Plt Count 293 (160-400) X10*3/uL MPV 10.0 (9.4-12.4) fL Immature Gran % (Auto) 0.5 H (0.0-0.4) % Neut % (Auto) 79.3 H (45-73) % Lymph % (Auto) 15.1 L (20-40) % Canyon % (Auto) 4.3 (2-11) % Eos % (Auto) 0.4 (0-4) % Baso % (Auto) 0.4 (0-2) % Lymph # (Auto) 2.0 (1.2-4.9) X10*3/uL Canyon # (Auto) 0.6 (0.1-1.2) X10*3/uL Eos # (Auto) 0.1 (0.0-0.4) X10*3/uL Baso # (Auto) 0.1 (0.0-0.2) X10*3/uL Abs Immat Gran (auto) 0.06 H (0.00-0.03) X10*3/uL Absolute Neuts (auto) 10.4 H (2.0-8.3) x10*3/uL Absolute Nucleated RBC 0.000 (0.0-0.012) X10*3/uL Nucleated RBC % (auto) 0.0 (0.0-0.2) /100WBC Smear Tech's Comments VERIFIED PT 13.5 (11.2-13.5) SEC INR 1.1 (0.9-1.1) Sodium 136 (135-145) mmol/L Potassium 4.3 (3.3-5.1) mmol/L Chloride 104 (96-108) mmol/L Carbon Dioxide 17 L (22-29) mmol/L Anion Gap 19 (12-20) BUN 9 (9-16) mg/dL Creatinine 0.67 (0.5-1.4) mg/dL Estim Creat Clear Calc 127.8 Estimated GFR > 60 POC Glucose 276 H (60-115) mg/dL Random Glucose 313 H (60-115) mg/dL Lactic Acid (0.5-2.0) mmol/L Calcium 9.5 D (8.4-10.2) mg/dL Magnesium 2.1 (1.6-2.6) mg/dL Total Bilirubin 0.8 (0.0-1.0) mg/dL AST 26 (5-37) U/L ALT 23 (0-40) U/L Alkaline Phosphatase 91 (39-117) U/L Total Protein 7.1 (6.5-8.0) g/dL Albumin 4.3 (3.5-5.0) g/dL Lipase < 4 L (8-78) U/L Beta-Hydroxybutyrate 1.38 H (0.02-0.27) mmol/L COVID-19 ([facility]) Negative (Negative) COVID-19 Clin Com See Note Influenza Type A (MARIE) Negative (Negative) Influenza Type B (MARIE) Negative (Negative) Influenza A & B Note See Note 09/11/25 Range/Units 13:58 WBC (4.8-10.8) X10*3/uL RBC (4.60-5.80) X10*6/uL Hgb (14.0-18.0) g/dl Hct (42.0-52.0) % MCV (80.0-98.0) fL MCH (27.0-33.0) pg MCHC (31.0-36.0) g/dl RDW (11.0-16.0) % Plt Count (160-400) X10*3/uL MPV (9.4-12.4) fL Immature Gran % (Auto) (0.0-0.4) % Neut % (Auto) (45-73) % Lymph % (Auto) (20-40) % Canyon % (Auto) (2-11) % Eos % (Auto) (0-4) % Baso % (Auto) (0-2) % Lymph # (Auto) (1.2-4.9) X10*3/uL Canyon # (Auto) (0.1-1.2) X10*3/uL Eos # (Auto) (0.0-0.4) X10*3/uL Baso # (Auto) (0.0-0.2) X10*3/uL Abs Immat Gran (auto) (0.00-0.03) X10*3/uL Absolute Neuts (auto) (2.0-8.3) x10*3/uL Absolute Nucleated RBC (0.0-0.012) X10*3/uL Nucleated RBC % (auto) (0.0-0.2) /100WBC Smear Tech's Comments PT (11.2-13.5) SEC INR (0.9-1.1) Sodium (135-145) mmol/L Potassium (3.3-5.1) mmol/L Chloride (96-108) mmol/L Carbon Dioxide (22-29) mmol/L Anion Gap (12-20) BUN (9-16) mg/dL Creatinine (0.5-1.4) mg/dL Estim Creat Clear Calc Estimated GFR POC Glucose (60-115) mg/dL Random Glucose (60-115) mg/dL Lactic Acid 4.0 H* (0.5-2.0) mmol/L Calcium (8.4-10.2) mg/dL Magnesium (1.6-2.6) mg/dL Total Bilirubin (0.0-1.0) mg/dL AST (5-37) U/L ALT (0-40) U/L Alkaline Phosphatase (39-117) U/L Total Protein (6.5-8.0) g/dL Albumin (3.5-5.0) g/dL Lipase (8-78) U/L Beta-Hydroxybutyrate (0.02-0.27) mmol/L COVID-19 ([facility]) (Negative) COVID-19 Clin Com Influenza Type A (MARIE) (Negative) Influenza Type B (MARIE) (Negative) Influenza A & B Note Independent Interpretation I performed an independent interpretation of an: EKG (102 beats per minute no QTC prolongation, otherwise normal ECG without dysrhythmia, AV gustavo blocks or ST-T changes to suspect underlying ACS, my independent interpretation) and Plain X-Ray (No obstructive patterns, no free air, bilateral total hip replacements, and hardware for lower back fusion) Radiology Impression Discussion of test interpretation with radiology: I have reviewed the radiologist's reading. External Record Review External record reviewed: Inpatient record Tests considered The following testing was considered but not selected: CT abdomen and pelvis with IV contrast Chronic Conditions Patient?s care impacted by: Diabetes and Hypertension Critical Care Time Critical Care Time Critical Care Time: Yes Total Critical Care Time: 45 Attestation: Time is exclusive of separately billable procedures. Time includes: direct patient care, patient reassessment, coordination of patient care, interpretation of data (laboratory data, pulse oximetry, arterial blood gases and chest xrays), review of patient's medical records, medical consultation and documentation of patient care. Procedures excluded from critical care time: central intravenous line placement and electrocardiography. Discharge Plan Discharge Clinical Impression: Diabetic gastroparesis, Hypertensive urgency, Dehydration Prescriptions: No Action (DME) walker Misc See Rx Instructions .Route Qty: 1 0RF Rx Instructions: As directed (DME) Aircast off loading boot Kit See Rx Instructions .Route Qty: 1 0RF Rx Instructions: As directed (DME) elastic bandage 6 X 1.8 -yard bandage See Rx Instructions .Route Qty: 6 0RF Rx Instructions: As directed (DME) gauze bandage [Band-Aid Gauze Pads] 4 X 4 bandage See Rx Instructions .Route Qty: 25 3RF Rx Instructions: As directed (DME) sterile gauze 4x4 See Rx Instructions .Route .MEDSUPPLY Qty: 40 3RF Rx Instructions: Apply to left foot wound every other day (DME) calcium alginate ag 4x4 pad See Rx Instructions .Route .MEDSUPPLY Qty: 5 2RF Rx Instructions: Apply to wound beds every other day insulin glargine [Lantus U-100 Insulin] 100 unit/mL solution 10 unit subcut BEDTIME losartan 25 mg tablet 25 mg PO DAILY gabapentin 300 mg capsule 300 mg PO TID loratadine 10 mg tablet 10 mg PO DAILY ezetimibe 10 mg tablet 10 mg PO BEDTIME rosuvastatin 40 mg tablet 40 mg PO BEDTIME meclizine 25 mg tablet 25 mg PO TID PRN (Reason: Dizziness Or Vertigo) (DME) jw Morgan See Rx Instructions .Route Qty: 1 0RF Rx Instructions: As directed aspirin 81 mg tablet,delayed release (DR/EC) 81 mg PO DAILY furosemide 20 mg tablet 20 mg PO DAILY metoprolol succinate 25 mg tablet extended release 24 hr 25 mg PO DAILY insulin lispro 100 unit/mL solution See Protocol subcut QIDACHS Protocol: Insulin Correction Scale Less than or equal to 110 ---- Give (units): 0 111 to 150 Give (units): 0 151 to 200 Give (units): 2 201 to 250 Give (units): 4 251 to 300 Give (units): 6 301 to 350 Give (units): 8 Greater than 350 Give (units): 10 Call MD if Blood Glucose > : 350 Xarelto 20 mg tablet 20 mg PO DAILY@1700 insulin glargine [Lantus U-100 Insulin] 100 unit/mL solution 8 unit SUBCUT DAILY oxycodone 10 mg tablet 10 mg PO Q4H PRN (Reason: Pain) Qty: 10 0RF Gvoke HypoPen 2-Pack 1 mg/0.2 mL auto-injector 1 mg SUBCUT ONCE PRN (Reason: Hypoglycemia) ondansetron 4 mg tablet,disintegrating 4 mg PO Q8H PRN (Reason: Nausea And Vomiting) venlafaxine 100 mg tablet 100 mg PO BID metoclopramide HCl [Reglan] 10 mg tablet 10 mg PO Q8H PRN (Reason: nausea and vomiting) Qty: 90 0RF omeprazole 20 mg capsule,delayed release(DR/EC) 20 mg PO DAILY@0630 nystatin [Nystop] 100,000 unit/gram powder 1 appl topical TID PRN (Reason: apply to groin) hydromorphone [Dilaudid] 2 mg tablet 2 mg PO TID PRN (Reason: pain, severe) Qty: 15 0RF Rx Instructions: Partial Fill upon patient request. Print Language: Lao
[2025-09-11 13:07] LABS: Glucose, Whole Blood 276 mg/dL (60-115)
--- OUTSIDE RECORDS SUMMARY | 2025-09-11 13:12 | XMS_ITS | Clinical Summary ---
Author Organization [facility] Address [address] [place] [phone] Phone Care Team Providers Care Educational Psychologist Name Role Phone Marley Rick MD Primary Care Provider [phone] Social History Tobacco Use Types Packs/Day Years [...] file Medical Devices Not on file Insurance [facility] [employer] [place] [address] [place] [address] [employer] [place] [address] [place] [address] [employer] [facility] [employer] Care Teams Educational Psychologist Relationship Specialty Start Date End Date Marley Rick MD [address] [place] [id number] PCP - General Internal Medicine 02/07/25 Additional Source Comments The information contained in this document represents components of the legal health record. It is not the complete legal health record.[facility]
[2025-09-11 13:43] LABS: COVID-19 Test Negative (Negative); IDNOW Serial# 58CA691E
[2025-09-11 13:46] LABS: IDNOW Serial# 55D5AD1C; Influenza B2 Negative (Negative)
[2025-09-11] MEDS: diazePAM 10 MG/2 ML CARTRIDGE 5 MG IVPUSH ×3 (13:46→22:51)
[2025-09-11 13:51] LABS: INTERNATIONAL NORM RATIO 1.1 (0.9-1.1); Prothrombin Time 13.5 SEC (11.2-13.5)
[2025-09-11 13:52] LABS: NRBC Abs Auto 0.000 X10*3/uL (0.0-0.012); NRBC Pct Auto 0.0 /100WBC (0.0-0.2); PLT CLUMP 1; SCAN SMEAR FLAG 1
[2025-09-11 13:53] LABS: Hematocrit 41.8 % (42.0-52.0); Hemoglobin 14.2 g/dl (14.0-18.0); Imm Gran Abs Auto 0.06 X10*3/uL (0.00-0.03); Imm Gran Pct Auto 0.5 % (0.0-0.4); Lymphocytes Absolute Auto 2.0 X10*3/uL (1.2-4.9); MANUAL DIFF FLAG SCAN; Mean Corpuscular HGB Conc 34.0 g/dl (31.0-36.0); Mean Corpuscular Hemoglobin 29.1 pg (27.0-33.0); Mean Corpuscular Volume 85.7 fL (80.0-98.0); Red Blood Count 4.88 X10*6/uL (4.60-5.80)
[2025-09-11 13:54] LABS: White Blood Count 13.1 X10*3/uL (4.8-10.8)
[2025-09-11 13:55] LABS: Platelet Count 293 X10*3/uL (160-400)
[2025-09-11 14:04] LABS: Alanine Aminotransferase 23 U/L (0-40); Albumin Level 4.3 g/dL (3.5-5.0); Alkaline Phosphatase 91 U/L (39-117); Anion Gap 19 (12-20); Aspartate Amino Transferase 26 U/L (5-37); Blood Urea Nitrogen 9 mg/dL (9-16); Calcium 9.5 mg/dL (8.4-10.2); Carbon Dioxide 17 mmol/L (22-29); Chloride 104 mmol/L (96-108); Creatinine Clr Calc Pharmacy 127.8; Estimated Glomerular Filt Rate > 60; Lipase < 4 U/L (8-78); Magnesium 2.1 mg/dL (1.6-2.6); Potassium 4.3 mmol/L (3.3-5.1); Sodium 136 mmol/L (135-145); Total Protein 7.1 g/dL (6.5-8.0)
--- NOTE | 2025-09-11 14:15 | PC.NURSE ---
erythromycin requested from pharmacy via [facility]
--- NOTE | 2025-09-11 15:21 | PC.NURSE ---
LR not compatible w/ abx, LR defferred until abx completed
[2025-09-11 15:33] LABS: Appearance Urine Turbid; Glucose Urine UA >=1000 mg/dL (Negative); PH 7.0 (5.0-9.0); Specific Gravity - Urine >= 1.030 (1.005-1.025); UMIC TRIGGER UACC YES
--- NOTE | 2025-09-11 15:51 | PM.IMHP ---
History of Present Illness Date of Service: 09/11/25 Attending physician on admission: Darek Haro Chief Complaint: N/V This is a 64 year old male who presents to the ED with nausea and vomiting. He reports 3 days of nausea and vomiting. He is unable to take PO because every time he attempts it he vomits. He denies fever or chills, no diarrhea. He has associated epigastric abdominal pain. Patient has multiple similar admissions for the same. In the emergency department he was initially hypertensive, tachycardic. He has been unable to take his medication for the past 3 days. He received 2 doses of IV Valium, IV Reglan and a dose of erythromycin. He continues to report nausea and vomiting. Lab work was significant for leukocytosis of 13.1, bicarb of 17 no anion gap. Lactic acid was 4.0. Due to persistent symptoms patient will be admitted to the hospital for further management Review of Systems Review of Systems: Yes all other systems are reviewed and are negative Constitutional: Constitutional: Denies chills and Denies fever(s) Cardiovascular: Cardiovascular: Denies chest pain, Denies palpitations and Denies dyspnea Respiratory: Respiratory: Denies cough and Denies dyspnea Gastrointestinal: Gastrointestinal: Reports abdominal pain, Denies diarrhea, Reports nausea and Reports vomiting Endocrine: Endocrine: Denies palpitations [facility] Medical History Gastroparesis Diabetes Ischemic bowel disease Hypertensive urgency Abdominal pain PVD (peripheral vascular disease) Gastroparesis DKA (diabetic ketoacidosis) Obesity (BMI 30-39.9) PAD (peripheral artery disease) Afib Amputation of left great toe Lower limb amputation, great toe CAD (coronary artery disease) DMII (diabetes mellitus, type 2) Orthopedic hardware present Hyperglycemia Cellulitis Asthma Diabetes Hypertension FHx: bilateral hip replacements Family History Father Cancer of neck Mother Uterus cancer Other No family history of coronary artery disease Surgical History History of amputation of toe (07/29/22) History of amputation of great toe (01/07/22) History of back surgery History of neck surgery History of ankle surgery H/O bilateral hip replacements S/P quadruple vessel bypass Social History Household Members: Spouse and Children Household Members Other:: 3 Housing: Condominium Are you a primary child care group leader to a significant other at home: No Do you presently have visiting nurse or other home services: No Alcohol intake: never Comment: refused bed or chair alarm Patient Tobacco Use Status: Former Tobacco user Tobacco use type: Cigarette e-Cigarette/Vaping Use: Never Used Second Hand Smoke Exposure: No Substance Use Type: Marijuana Advance Directives: Yes Advance Directives on File: Yes Advance Directives Date on File: 07/20/25 Do you have a plan to hurt others: No Plan Nutrition Risks: Acute nausea or vomiting x1 week service: No Current occupational status: disabled Meds Allergies Allergy/AdvReac Type Severity Reaction Status Date / Time morphine AdvReac Intermediate Hallucinati Verified 09/11/25 12:53 ons Active Medications: Current Medications Lactated Ringer's (Lr) 1,000 mls @ 0 mls/hr IV .Q0M WILLIAM Lactated Ringer's (Lr) 1,000 mls @ 999 mls/hr IV .Q1H1M WILLIAM Stop: 09/11/25 16:15 Home Medications ?Medication ?Instructions ?Recorded ?Confirmed ?Last Taken ?Type ezetimibe 10 mg tablet 10 mg PO BEDTIME 01/03/22 09/11/25 09/08/25 History gabapentin 300 mg capsule 300 mg PO TID 01/03/22 09/11/25 09/08/25 History insulin glargine 100 unit/mL 10 unit subcut BEDTIME 01/03/22 09/11/25 09/08/25 History subcutaneous solution (Lantus U-100 Insulin) loratadine 10 mg tablet 10 mg PO DAILY 01/03/22 09/11/25 09/08/25 History losartan 25 mg tablet 25 mg PO DAILY 01/03/22 09/11/25 09/08/25 History meclizine 25 mg tablet 25 mg PO TID PRN Dizziness Or 01/03/22 09/11/25 05/23/25 History Vertigo rosuvastatin 40 mg tablet 40 mg PO BEDTIME 01/03/22 09/11/25 09/08/25 History aspirin 81 mg tablet,delayed 81 mg PO DAILY 1009/11/25 09/08/25 History release furosemide 20 mg tablet 20 mg PO DAILY 11/13/22 09/11/25 09/08/25 History metoprolol succinate 25 mg 25 mg PO DAILY 10/14/24 09/11/25 09/08/25 History tablet,extended release 24 hr insulin lispro 100 unit/mL See Protocol subcut QIDACHS 12/16/24 09/11/25 09/08/25 History subcutaneous solution rivaroxaban 20 mg tablet (Xarelto) 20 mg PO DAILY@1700 12/16/24 09/11/25 09/08/25 History insulin glargine 100 unit/mL 8 unit subcut DAILY 03/23/25 09/11/25 09/08/25 History subcutaneous solution (Lantus U-100 Insulin) glucagon 1 mg/0.2 mL subcutaneous 1 mg subcut ONCE PRN Hypoglycemia 05/26/25 09/11/25 Unknown History auto-injector (GvInVitae HypoPen 2-Pack) ondansetron 4 mg disintegrating 4 mg PO Q8H PRN Nausea And Vomiting 07/19/25 09/11/25 Unknown History tablet venlafaxine 100 mg tablet 100 mg PO BID 08/14/25 09/11/25 09/08/25 History nystatin 100,000 unit/gram topical 1 appl topical TID PRN apply to 08/29/25 09/11/25 08/26/25 History powder (Nystop) groin omeprazole 20 mg capsule,delayed 20 mg PO DAILY@0630 08/29/25 09/11/25 09/08/25 History release Physical Exam Vital Signs and Narrative: Vital Signs: Last Vital Signs Temp 98.2 F 09/11/25 14:28 Pulse 118 H 09/11/25 14:28 Resp 20 09/11/25 14:28 BP 165/145 H 09/11/25 14:28 Pulse Ox 99 09/11/25 14:28 O2 Del Method Room Air 09/11/25 14:28 BMI result Body Mass Index 33.6 Const: General: alert and awake Nutritional Appearance: overweight Orientation/consciousness: patient oriented x3 Resp: Effort & Inspection: normal respiratory effort, able to speak in complete sentences, no respiratory distress and no use of accessory muscles Cardio: Rate: tachycardic GI: Other: no guarding or rigidity, TTP epigastric area Inspection: No distended Palpation (GI): Soft to palpation Neuro: General: patient oriented x3, moves all extremities and CN's II-XI intact bilaterally Results Labs 09/11/25 13:34 09/11/25 13:34 Labs: Laboratory Results - last 24 hr 09/11/25 09/11/25 09/11/25 12:59 13:24 13:34 MCV 85.7 MCH 29.1 MCHC 34.0 RDW 13.2 Plt Count 293 MPV 10.0 Immature Gran % (Auto) 0.5 H Neut % (Auto) 79.3 H Lymph % (Auto) 15.1 L [place] % (Auto) 4.3 Eos % (Auto) 0.4 Baso % (Auto) 0.4 Lymph # (Auto) 2.0 [place] # (Auto) 0.6 Eos # (Auto) 0.1 Baso # (Auto) 0.1 Abs Immat Gran (auto) 0.06 H Absolute Neuts (auto) 10.4 H Absolute Nucleated RBC 0.000 Nucleated RBC % (auto) 0.0 Smear Tech's Comments VERIFIED PT 13.5 INR 1.1 Anion Gap 19 Estim Creat Clear Calc 127.8 Estimated GFR > 60 POC Glucose 276 H Random Glucose 313 H Lactic Acid Calcium 9.5 D Magnesium 2.1 Total Bilirubin 0.8 AST 26 ALT 23 Alkaline Phosphatase 91 Total Protein 7.1 Albumin 4.3 Lipase < 4 L Beta-Hydroxybutyrate 1.38 H Urine Color Urine Appearance Urine pH Ur Specific [place] Urine Protein Urine Glucose (UA) Urine Ketones Urine Blood Urine Nitrite Ur Leukocyte Esterase Urine RBC Urine WBC Ur Squamous Epith Cells Urine Bacteria Hyaline Casts COVID-19 (MACRINA) Negative COVID-19 Clin Com See Note Influenza Type A (MARIE) Negative Influenza Type B (MARIE) Negative Influenza A & B Note See Note 09/11/25 09/11/25 13:58 15:26 MCV MCH MCHC RDW Plt Count MPV Immature Gran % (Auto) Neut % (Auto) Lymph % (Auto) [place] % (Auto) Eos % (Auto) Baso % (Auto) Lymph # (Auto) [place] # (Auto) Eos # (Auto) Baso # (Auto) Abs Immat Gran (auto) Absolute Neuts (auto) Absolute Nucleated RBC Nucleated RBC % (auto) Smear Tech's Comments PT INR Anion Gap Estim Creat Clear Calc Estimated GFR POC Glucose Random Glucose Lactic Acid 4.0 H* Calcium Magnesium Total Bilirubin AST ALT Alkaline Phosphatase Total Protein Albumin Lipase Beta-Hydroxybutyrate Urine Color Yellow Urine Appearance Turbid Urine pH 7.0 Ur Specific [place] >= 1.030 H Urine Protein 100 (2+) H Urine Glucose (UA) >=1000 H Urine Ketones 80 Urine Blood Negative Urine Nitrite Negative Ur Leukocyte Esterase Negative Urine RBC 0-2 Urine WBC 0-5 Ur Squamous Epith Cells 0-2 Urine Bacteria None Seen Hyaline Casts 3-5 COVID-19 ([facility]CR[facility]) COVID-19 Clin Com Influenza Type A (MARIE) Influenza Type B (MARIE) Influenza A & B Note Assessment and Plan (1) Hypertensive urgency: Status: Acute (2) Diabetic gastroparesis: Status: Acute Plan This is a 64-year-old male with a history of HTN, diabetic gastroparesis, IDDM, CAD, paroxysmal atrial fibrillation on Xarelto, peripheral neuropathy, diabetic gastroparesis, chronic mesenteric ischemia, multiple admissions for abdominal pain with nausea and vomiting who presents today with the same Epigastric abdominal pain with intractable nausea and vomiting likely due to underlying gastroparesis and gastritis also with h/o chronic mesenteric ischemia has been seen by vascular surgery, general surgery and GI in the past last EGD 08/19 showing esophagitis and gastritis Will treat with IVF, scheduled reglan, IV antiemetics, IV pepcid goal to avoid narcotics if able as this is likely to worsen gastroparesis Lactic acidosis, chronic LA has been chronically elevated since 2022, possibly in the setting of chronic mesenteric ischemia as well as decreased po intake and n/v IVF follow trend leukocytosis likely reactive due to N/V not due to sepsis tachycardia due to abdominal pain and volume depletion not due to sepsis Uncontrolled HTN with hypertensive urgency hold po metoprolol and give IV lopressor prn as pt is not tolerating po hold po Imdur, Losartan for now due to N/V might need a higher BP readings to support perfusion through SMA avoid hypotension Insulin-dependent diabetes with hyperglycemia low bicarb, mild elevation in beta hydroxybutyrate, but no anion gap; no DKA currently NPO sliding scale insulin per standard protocol hold long acting insulin for now while npo - follow POCs closely CAD Hold metoprolol, aspirin, Imdur, ezetimibe for now resume when tolerating po Paroxysmal AFib IV lopressor prn until able to tolerate po metoprolol xarelto, if unable to tolerate may need to change to lovenox Diabetic neuropathy gabapentin dvt ppx - xarelto Quality Stroke Does the patient have a stroke diagnosis?: No VTE Prior VTE?: No VTE Risk Level:: Medical - moderate - high VTE Device Contraindication: N/A - Device Ordered VTE Drug Contraindication: N/A - Med Ordered
--- NOTE | 2025-09-11 15:56 | PC.NURSE ---
Patient presenting to the ED w/ N/V/abd pain x 3 days, unable to take any home medications during that time. Patient alert and oriented, constantly tearful while in ED. SB assist to BR, steady gait. Hypertensive but improving. SR/ST on monitor. Lactic 4.0, recieving LR bolus / LR @ 100/hr afterwards. PMH: gastroparesis diabetic, hypertensive urgency, AFib on Xarelto, questionable gut ischemia Pt educated multiple times by ED staff he will not be getting Dilaudid d/t side affect of worsening gastroparesis. Pt begrudgingly verbalized understanding. 20 L FA
[2025-09-11 16:04] LABS: Reflex Lactate? Lactic Acid Added
[2025-09-11] MEDS: Lactated Ringers 1,000 ML 999 ML IV ×2 (16:27→16:29)
[2025-09-11 16:28] LABS: Glucose, Whole Blood 265 mg/dL (60-115)
--- NOTE | 2025-09-11 16:35 | HO.NURTONUR ---
Patient presenting to the ED w/ N/V/abd pain x 3 days, unable to take any home medications during that time. Patient alert and oriented, constantly tearful while in ED. SB assist to BR, steady gait. Hypertensive but improving. SR/ST on monitor. lopressor iv Q6 prn SBP > 180 Lactic 4.0, recieving LR bolus / LR @ 100/hr afterwards. PMH: gastroparesis diabetic, hypertensive urgency, AFib on Xarelto, questionable gut ischemia Pt educated multiple times by ED staff he will not be getting Dilaudid d/t side affect of worsening gastroparesis. Pt begrudgingly verbalized understanding. 20 L FA
--- NOTE | 2025-09-11 16:36 | PC.NURSE ---
2nd lactic delayed d/t LR bolus infusing
--- NOTE | 2025-09-11 17:02 | PHA.MEDREC ---
Pharmacy Consult ? Medication Reconciliation Pharmacy has completed the medication reconciliation. Spoke to patient to confirm medication list. Patient was recently discharged on 09/01/25 and he confirmed nothing has changed. He is still taking lantus 8 units daily and 10 units at bedtime, insulin lispro is qidachs per sliding scale, oxycodone 10 mg q4h prn and xarelto 20 mg daily. He is not taking hydromorphone 2 mg. Last dose of medications was 3 days ago.
[2025-09-11] MEDS: oxyCODONE HCl Immed Release 5 MG TABLET 10 MG PO ×2 (17:22→21:51)
[2025-09-11] MEDS: Lactated Ringers 1,000 ML 100 ML IVCONT (17:40)
--- NOTE | 2025-09-11 17:42 | PC.NURSE ---
Pt continues to cry / request pain medication. Unable to lie still for bp. Admitting provider Maureen already aware. PRN meds given as ordered. Pt awaiting bed assignment at this time.
--- NOTE | 2025-09-11 17:50 | PC.NURSE ---
pt medicated per DEC for 08/05 abdominal pain-- pt continues to request more analgesia- advised of administration parameters- advised plan of care is to keep opiates at a minimum, as pt condition maybe exacerbated by narcotic use. Pt continues to request analgesia- requests to speak to admitting provider. Gurwinder AMADOR notified of pt's continuous requests. pt also noted to be dry heaving- reglan administered per order. call bansal within reach- plan of care ongoing
[2025-09-11 18:10] LABS: Cannabinoid Screen Urine POSITIVE (Not Detect)
--- NOTE | 2025-09-11 18:49 | PC.NURSE ---
spoke to pt Holli alcocer on plan of care - pt to be admitted to [facility] tele
[2025-09-11 18:56] LABS: ~Lactic Acid-LAB USE ONLY 2.8 mmol/L (0.5-2.0)
--- NOTE | 2025-09-11 18:59 | PC.NURSE ---
critical lactic acid 2.7 received- PA notified via tiger connect no additional lactic acid draws to be ordered
[2025-09-11 19:08] LABS: Cancel Lactic Acid Canceled
[2025-09-11] MEDS: 0.9 % Sodium Chloride Flush 3 ML SYRINGE IVFLUSH (22:53)
[2025-09-12] MEDS: oxyCODONE HCl Immed Release 5 MG TABLET 10 MG PO ×3 (01:42→10:24)
[2025-09-12 04:00] VITALS: BP 120/60; PULSE 79; RESP 18; TEMP 36.6; O2SAT 97
[2025-09-12] MEDS: Lactated Ringers 1,000 ML 100 ML IVCONT ×3 (04:34→22:22)
[2025-09-12 05:02] LABS: Glucose, Whole Blood 185 mg/dL (60-115)
[2025-09-12 07:41] LABS: Hematocrit 37.1 % (42.0-52.0); Hemoglobin 12.3 g/dl (14.0-18.0); Mean Corpuscular HGB Conc 33.2 g/dl (31.0-36.0); Mean Corpuscular Hemoglobin 29.4 pg (27.0-33.0); Mean Corpuscular Volume 88.5 fL (80.0-98.0); NRBC Abs Auto 0.000 X10*3/uL (0.0-0.012); NRBC Pct Auto 0.0 /100WBC (0.0-0.2); Platelet Count 283 X10*3/uL (160-400); Red Blood Count 4.19 X10*6/uL (4.60-5.80); White Blood Count 11.6 X10*3/uL (4.8-10.8)
[2025-09-12 07:58] LABS: Anion Gap 10 (12-20); Blood Urea Nitrogen 8 mg/dL (9-16); Calcium 8.9 mg/dL (8.4-10.2); Carbon Dioxide 26 mmol/L (22-29); Chloride 106 mmol/L (96-108); Creatinine Clr Calc Pharmacy 140.3; Estimated Glomerular Filt Rate > 60; Potassium 4.1 mmol/L (3.3-5.1); Sodium 138 mmol/L (135-145)
[2025-09-12 08:00] VITALS: BP 137/66; PULSE 86; RESP 18; TEMP 36.6; O2SAT 100
[2025-09-12] MEDS: 0.9 % Sodium Chloride Flush 3 ML SYRINGE IVFLUSH ×2 (10:25→22:19)
[2025-09-12 11:16] LABS: Glucose, Whole Blood 162 mg/dL (60-115)
[2025-09-12 11:55] VITALS: BP 126/77; PULSE 73; RESP 18; TEMP 36.7; O2SAT 98
--- NOTE | 2025-09-12 13:11 | MHC.CM.PN ---
PT REPORTS HE LIVES WITH HIS AND IS INDEPENDENT WITH CARE HE HAS A CANE AT BASELINE AND USES A WALKER PRN PCP: ANGELICA PATEL HCP ON FILE OBSERVATION NOTICE DELIVERED DCP: HOME VIA PRIVATE TRANSPORT
--- NOTE | 2025-09-12 15:12 | HO.PM.IMPN ---
Subjective Subjective Date of Service: 09/12/25 Interval History: No acute issues overnight. Still requesting Dilaudid for pain Review of Systems Denies chest pain Denies shortness of breath Denies nausea vomiting diarrhea Admits to diffuse abdominal pain Denies fever chills Physical Exam Vital Signs: Vital Signs: Last Vital Signs Temp 98.1 F 09/12/25 11:55 Pulse 73 09/12/25 11:55 Resp 18 09/12/25 11:55 BP 126/77 09/12/25 11:55 Pulse Ox 98 09/12/25 11:55 O2 Del Method Room Air 09/12/25 11:55 BMI result Body Mass Index 33.6 Const: Other: Awake alert no acute distress Resp: Other: Clear to auscultation bilaterally no rales rhonchi or wheezes Cardio: Other: No S4; positive S1-S2; no S3 murmurs rubs or gallops GI: Other: Soft nontender nondistended normoactive bowel sounds Extrem: Other: No edema bilaterally Objective Data Active Medications Calcium Carbonate (Calcium Carbonate 750 Mg Tab.Chew) 750 mg PO Q4H PRN PRN Reason: Heartburn Dextrose (Dextrose 50 % 25 Gm/50 Ml Syringe) 25 gm IVPUSH Q15M PRN; Protocol PRN Reason: per Hypoglycemia Standing Ord. Diazepam (Diazepam 10 Mg/2 Ml Cartridge) 5 mg IVPUSH Q8H PRN PRN Reason: nausea and vomiting Last Admin: 09/11/25 22:51 Dose: 5 mg Documented By: CRESCENCIO Famotidine (Famotidine/Pf 20 Mg/2 Ml Vial) 20 mg IVPUSH DAILY [facility] Last Admin: 09/12/25 10:24 Dose: 20 mg Documented By: CHRISTINA Gabapentin (Gabapentin 300 Mg Capsule) 300 mg PO TID [facility] Last Admin: 09/12/25 10:25 Dose: 300 mg Documented By: CHRISTINA Glucose (Glucose Gel 15 Gm Gel..Gram.) 15 gm PO Q15M PRN; Protocol PRN Reason: per Hypoglycemia Standing Ord. Hydromorphone HCl (Hydromorphone Hcl 1 Mg/Ml Syringe) 1 mg IVPUSH Q6H PRN; Protocol PRN Reason: Pain, Severe (Pain Scale 7-10) Stop: 09/14/25 12:25 Last Admin: 09/12/25 13:36 Dose: 1 mg Documented By: CHRISTINA Lactated Ringer's (Lr) 1,000 mls @ 0 mls/hr IV .Q0M [facility] Last Infusion: 09/11/25 17:43 Dose: Infused Documented By: TRACY Lactated Ringer's (Lr) 1,000 mls @ 100 mls/hr IVCONT .Q10H [facility] Last Admin: 09/12/25 13:36 Dose: 100 mls/hr Documented By: CHRISTINA Acetaminophen (Ofirmev) 1,000 mg in 100 mls @ 400 mls/hr IV Q6H PRN PRN Reason: Pain, Mild 1-3,fever,headache Insulin Human Lispro (Insulin Lispro 100 Unit/Ml 3 Ml Vial) 0 unit SUBCUT Q6H [facility]; Protocol Last Admin: 09/12/25 13:34 Dose: Not Given Documented By: CHRISTINA Non-Admin Reason: patient NPO Magnesium Hydroxide (Milk Of Magnesia 30 Ml Oral.Susp) 30 ml PO DAILY PRN PRN Reason: Constipation Melatonin (Melatonin 3 Mg Tablet) 6 mg PO BEDTIME PRN PRN Reason: Insomnia Metoclopramide HCl (Metoclopramide Hcl 10 Mg/2 Ml Vial) 5 mg IVPUSH Q8H [facility] Last Admin: 09/12/25 10:24 Dose: 5 mg Documented By: CHRISTINA Metoprolol Tartrate (Metoprolol Tartrate 5 Mg/5 Ml Vial) 5 mg IVPUSH Q6H PRN; Protocol PRN Reason: SBP > 180 Last Admin: 09/11/25 16:22 Dose: 5 mg Documented By: JAKE Nystatin (Nystatin Powder 15 Gm Bottle) 1 appl TOPICAL TID PRN; Protocol PRN Reason: apply to groin Ondansetron HCl (Ondansetron Hcl 4 Mg/2 Ml Vial) 4 mg IVPUSH Q8H PRN PRN Reason: Nausea and Vomiting Last Admin: 09/11/25 20:33 Dose: 4 mg Documented By: TATI Oxycodone HCl (Oxycodone Hcl Immed Release 5 Mg Tablet) 5 mg PO Q4H PRN PRN Reason: Pain, Moderate(Pain Scale 4-6) Rivaroxaban (Rivaroxaban 20 Mg Tablet) 20 mg PO DAILY@1700 [facility] Sodium Chloride (0.9 % Sodium Chloride Flush 3 Ml Syringe) 3 ml IVFLUSH QSHIFT [facility] Last Admin: 09/12/25 10:25 Dose: 3 ml Documented By: CHRISTINA Venlafaxine HCl (Venlafaxine Hcl 25 Mg Tablet) 100 mg PO BID [facility] Last Admin: 09/12/25 10:30 Dose: 100 mg Documented By: CHRISTINA Labs 09/12/25 06:53 09/12/25 06:53 Labs: Laboratory Results - last 24 hr 09/11/25 09/11/25 09/11/25 15:26 16:23 18:29 MCV MCH MCHC RDW Plt Count MPV Absolute Nucleated RBC Nucleated RBC % (auto) Hold Purple Top SEE NOTE Anion Gap Estim Creat Clear Calc Estimated GFR POC Glucose 265 H Random Glucose Lactic Acid F/U @ 2Hr 2.8 H* Calcium Hold Yellow Top See Note Urine Color Yellow Urine Appearance Turbid Urine pH 7.0 Ur Specific [place] >= 1.030 H Urine Protein 100 (2+) H Urine Glucose (UA) >=1000 H Urine Ketones 80 Urine Blood Negative Urine Nitrite Negative Ur Leukocyte Esterase Negative Urine RBC 0-2 Urine WBC 0-5 Ur Squamous Epith Cells 0-2 Urine Bacteria None Seen Hyaline Casts 3-5 Urine Opiates Screen POSITIVE H Ur Buprenorphine Scrn Not Detected Ur Oxycodone Screen Positive H Urine Methadone Screen Not Detected Urine Fentanyl Screen Not Detected Ur Barbiturates Screen Not Detected Ur Phencyclidine Scrn Not Detected Ur Amphetamines Screen Not Detected U Benzodiazepines Scrn Not Detected Urine Cocaine Screen Not Detected U Marijuana (THC) Screen POSITIVE H 09/12/25 09/12/25 09/12/25 04:58 06:53 11:13 MCV 88.5 MCH 29.4 MCHC 33.2 RDW 13.4 Plt Count 283 MPV 9.9 Absolute Nucleated RBC 0.000 Nucleated RBC % (auto) 0.0 Hold Purple Top Anion Gap 10 L Estim Creat Clear Calc 140.3 Estimated GFR > 60 POC Glucose 185 H 162 H Random Glucose 179 H Lactic Acid F/U @ 2Hr Calcium 8.9 D Hold Yellow Top Urine Color Urine Appearance Urine pH Ur Specific [place] Urine Protein Urine Glucose (UA) Urine Ketones Urine Blood Urine Nitrite Ur Leukocyte Esterase Urine RBC Urine WBC Ur Squamous Epith Cells Urine Bacteria Hyaline Casts Urine Opiates Screen Ur Buprenorphine Scrn Ur Oxycodone Screen Urine Methadone Screen Urine Fentanyl Screen Ur Barbiturates Screen Ur Phencyclidine Scrn Ur Amphetamines Screen U Benzodiazepines Scrn Urine Cocaine Screen U Marijuana (THC) Screen Assessment and Plan (1) Diabetic gastroparesis: Status: Acute (2) Hypertensive urgency: Status: Acute Plan This is a 64-year-old male with a history of HTN, diabetic gastroparesis, IDDM, CAD, paroxysmal atrial fibrillation on Xarelto, peripheral neuropathy, diabetic gastroparesis, chronic mesenteric ischemia, multiple admissions for abdominal pain with nausea and vomiting who presents today with the same 1.Epigastric abdominal pain with intractable nausea and vomiting -chronic in nature... Extensive workup otherwise negative -states could not take appropriate amount of oxycodone secondary to vomiting -long discussion with patient about multiple admissions for same; does get adequate outpatient oxycodone -discussed with patient that Dilaudid would be prescribed for 2 days and then he will be DC to home. In the future he needs to make use of the oxycodone that his [employer] gives him. Going forward ... No further Dilaudid upon admission. He needs to develop a regimen with the oxycodone that he has. 2.Lactic acidosis(chronic) -continue IV fluids -no need to trend lactate 3.Uncontrolled HTN with hypertensive urgency -acceptable control off therapies -add back when clinically appropriate 4.Insulin-dependent diabetes with hyperglycemia -acceptable control on current therapies -lispro correctional scale -adjust as indicated 5.CAD -stable at this time -add back therapies when clinically indicated 6.Paroxysmal AFib -slowly resume outpatient therapies -add back Xarelto xarelto Full code Quality Stroke Does the patient have a stroke diagnosis?: No VTE Prior VTE?: No VTE Risk Level:: Medical - moderate - high VTE Device Contraindication: N/A - Device Ordered VTE Drug Contraindication: N/A - Med Ordered
[2025-09-12 15:45] LABS: Glucose, Whole Blood 190 mg/dL (60-115)
[2025-09-12] MEDS: oxyCODONE HCl Immed Release 5 MG TABLET PO ×2 (15:49→22:15)
[2025-09-12 16:00] VITALS: BP 135/78; PULSE 86; RESP 18; TEMP 37.1; O2SAT 96
[2025-09-12 19:13] VITALS: BP 140/82; PULSE 80; RESP 16; TEMP 36.4; O2SAT 100
[2025-09-12 20:49] LABS: Glucose, Whole Blood 141 mg/dL (60-115)
[2025-09-12 23:01] VITALS: BP 126/72; PULSE 77; RESP 16; TEMP 36.2; O2SAT 99
[2025-09-13] MEDS: oxyCODONE HCl Immed Release 5 MG TABLET PO ×3 (02:57→18:39)
[2025-09-13 03:23] VITALS: BP 123/61; PULSE 78; RESP 16; TEMP 36.2; O2SAT 96
[2025-09-13 03:33] LABS: Glucose, Whole Blood 153 mg/dL (60-115)
[2025-09-13 08:00] VITALS: BP 134/67; PULSE 78; RESP 18; TEMP 36.7; O2SAT 97
[2025-09-13] MEDS: Lactated Ringers 1,000 ML 100 ML IVCONT (08:59)
[2025-09-13] MEDS: 0.9 % Sodium Chloride Flush 3 ML SYRINGE IVFLUSH ×3 (08:59→19:51)
[2025-09-13 10:15] LABS: Glucose, Whole Blood 136 mg/dL (60-115)
[2025-09-13 11:59] VITALS: BP 130/60; PULSE 86; RESP 18; TEMP 36.3; O2SAT 96
[2025-09-13 12:06] LABS: Glucose, Whole Blood 135 mg/dL (60-115)
--- NOTE | 2025-09-13 15:33 | HO.PM.IMPN ---
Subjective Subjective Date of Service: 09/13/25 Interval History: Attempted diet but vomited. Regress to clear liquids Review of Systems Denies chest pain Denies shortness of breath Admits nausea vomiting; denies diarrhea Admits to diffuse abdominal pain Denies fever chills Physical Exam Vital Signs: Vital Signs: Last Vital Signs Temp 97.4 F 09/13/25 11:59 Pulse 86 09/13/25 11:59 Resp 18 09/13/25 11:59 BP 130/60 09/13/25 11:59 Pulse Ox 96 09/13/25 11:59 O2 Del Method Room Air 09/13/25 11:59 BMI result Body Mass Index 33.6 Const: Other: Awake alert no acute distress Resp: Other: Clear to auscultation bilaterally no rales rhonchi or wheezes Cardio: Other: No S4; positive S1-S2; no S3 murmurs rubs or gallops GI: Other: Soft nontender nondistended normoactive bowel sounds Extrem: Other: No edema bilaterally Objective Data Active Medications Calcium Carbonate (Calcium Carbonate 750 Mg Tab.Chew) 750 mg PO Q4H PRN PRN Reason: Heartburn Dextrose (Dextrose 50 % 25 Gm/50 Ml Syringe) 25 gm IVPUSH Q15M PRN; Protocol PRN Reason: per Hypoglycemia Standing Ord. Diazepam (Diazepam 10 Mg/2 Ml Cartridge) 5 mg IVPUSH Q8H PRN PRN Reason: nausea and vomiting Last Admin: 09/11/25 22:51 Dose: 5 mg Documented By: CRESCENCIO Famotidine (Famotidine/Pf 20 Mg/2 Ml Vial) 20 mg IVPUSH DAILY [facility] Last Admin: 09/13/25 08:58 Dose: 20 mg Documented By: MICKI Gabapentin (Gabapentin 300 Mg Capsule) 300 mg PO TID [facility] Last Admin: 09/13/25 14:12 Dose: 300 mg Documented By: MICKI Glucose (Glucose Gel 15 Gm Gel..Gram.) 15 gm PO Q15M PRN; Protocol PRN Reason: per Hypoglycemia Standing Ord. Hydromorphone HCl (Hydromorphone Hcl 1 Mg/Ml Syringe) 1 mg IVPUSH Q6H PRN; Protocol PRN Reason: Pain, Severe (Pain Scale 7-10) Stop: 09/14/25 12:25 Last Admin: 09/13/25 15:32 Dose: 1 mg Documented By: MICKI Lactated Ringer's (Lr) 1,000 mls @ 100 mls/hr IVCONT .Q10H WILLIAM Last Admin: 09/13/25 08:59 Dose: 100 mls/hr Documented By: MICKI Acetaminophen (Ofirmev) 1,000 mg in 100 mls @ 400 mls/hr IV Q6H PRN PRN Reason: Pain, Mild 1-3,fever,headache Insulin Human Lispro (Insulin Lispro 100 Unit/Ml 3 Ml Vial) 0 unit SUBCUT Q6H WILLIAM; Protocol Last Admin: 09/13/25 10:22 Dose: Not Given Documented By: MICKI Non-Admin Reason: No Insulin Coverage Magnesium Hydroxide (Milk Of Magnesia 30 Ml Oral.Susp) 30 ml PO DAILY PRN PRN Reason: Constipation Melatonin (Melatonin 3 Mg Tablet) 6 mg PO BEDTIME PRN PRN Reason: Insomnia Metoclopramide HCl (Metoclopramide Hcl 10 Mg/2 Ml Vial) 5 mg IVPUSH Q8H [facility] Last Admin: 09/13/25 10:23 Dose: 5 mg Documented By: MICKI Metoprolol Tartrate (Metoprolol Tartrate 5 Mg/5 Ml Vial) 5 mg IVPUSH Q6H PRN; Protocol PRN Reason: SBP > 180 Last Admin: 09/11/25 16:22 Dose: 5 mg Documented By: JAKE Nystatin (Nystatin Powder 15 Gm Bottle) 1 appl TOPICAL TID PRN; Protocol PRN Reason: apply to groin Ondansetron HCl (Ondansetron Hcl 4 Mg/2 Ml Vial) 4 mg IVPUSH Q8H PRN PRN Reason: Nausea and Vomiting Last Admin: 09/13/25 13:03 Dose: 4 mg Documented By: MICKI Comments: okay to give early per provider d/t N/V episode Oxycodone HCl (Oxycodone Hcl Immed Release 5 Mg Tablet) 5 mg PO Q4H PRN PRN Reason: Pain, Moderate(Pain Scale 4-6) Last Admin: 09/13/25 12:10 Dose: 5 mg Documented By: MICKI Rivaroxaban (Rivaroxaban 20 Mg Tablet) 20 mg PO DAILY@1700 [facility] Last Admin: 09/12/25 15:50 Dose: 20 mg Documented By: CHRISTINA Sodium Chloride (0.9 % Sodium Chloride Flush 3 Ml Syringe) 3 ml IVFLUSH QSHIFT [facility] Last Admin: 09/13/25 08:59 Dose: 3 ml Documented By: MICKI Venlafaxine HCl (Venlafaxine Hcl 25 Mg Tablet) 100 mg PO BID [facility] Last Admin: 09/13/25 08:59 Dose: 100 mg Documented By: MICKI Labs 09/12/25 06:53 09/12/25 06:53 Labs: Laboratory Results - last 24 hr 09/12/25 09/12/25 09/13/25 15:39 20:42 03:28 POC Glucose 190 H 141 H 153 H 09/13/25 09/13/25 10:12 12:03 POC Glucose 136 H 135 H Assessment and Plan (1) Diabetic gastroparesis: Status: Acute (2) Hypertension: Status: Acute Plan This is a 64-year-old male with a history of HTN, diabetic gastroparesis, IDDM, CAD, paroxysmal atrial fibrillation on Xarelto, peripheral neuropathy, diabetic gastroparesis, chronic mesenteric ischemia, multiple admissions for abdominal pain with nausea and vomiting who presents today with the same 1.Epigastric abdominal pain with intractable nausea and vomiting -failed advancement of diet -clear liquids -reassess in a.m. 2.Lactic acidosis(chronic) -continue IV fluids -no need to trend lactate 3.Uncontrolled HTN with hypertensive urgency -acceptable control off therapies -add back when clinically appropriate 4.Insulin-dependent diabetes with hyperglycemia -acceptable control on current therapies -lispro correctional scale -adjust as indicated 5.CAD -stable at this time -add back therapies when clinically indicated 6.Paroxysmal AFib -slowly resume outpatient therapies -add back Xarelto xarelto Full code Quality Stroke Does the patient have a stroke diagnosis?: No VTE Prior VTE?: No VTE Risk Level:: Medical - moderate - high VTE Device Contraindication: N/A - Device Ordered VTE Drug Contraindication: N/A - Med Ordered
[2025-09-13 16:00] VITALS: BP 128/73; PULSE 77; RESP 18; TEMP 36.8; O2SAT 96
[2025-09-13 16:55] LABS: Glucose, Whole Blood 159 mg/dL (60-115)
[2025-09-13] MEDS: diazePAM 10 MG/2 ML CARTRIDGE 5 MG IVPUSH (19:50)
[2025-09-13 19:54] VITALS: BP 140/78; PULSE 78; RESP 20; TEMP 36.1; O2SAT 98
[2025-09-13 20:07] LABS: Glucose, Whole Blood 125 mg/dL (60-115)
[2025-09-14] VITALS: BP 139/75; PULSE 81; RESP 18; TEMP 36.5; O2SAT 97
[2025-09-14] MEDS: oxyCODONE HCl Immed Release 5 MG TABLET PO ×3 (00:14→12:35)
[2025-09-14 03:00] VITALS: BP 125/76; PULSE 83; RESP 18; TEMP 36.4; O2SAT 100
[2025-09-14 03:46] LABS: Glucose, Whole Blood 123 mg/dL (60-115)
[2025-09-14 07:33] LABS: Glucose, Whole Blood 136 mg/dL (60-115)
[2025-09-14 07:36] VITALS: BP 130/82; PULSE 76; RESP 18; TEMP 36.9; O2SAT 97
[2025-09-14] MEDS: 0.9 % Sodium Chloride Flush 3 ML SYRINGE IVFLUSH (09:47)
--- NOTE | 2025-09-14 10:44 | MHC.CM.PN ---
Addendum entered by Elin Fox RN 09/14/25 10:46: DC PENDING PT TOLERATING ADVANCEMENT OF DIET. Original Note: PER HOSPITALIST PT TO BE MEDICALLY CLEARED FOR DC HOME SELF CARE, PT'S WILL TRANSPORT.
[2025-09-14 11:36] LABS: Glucose, Whole Blood 164 mg/dL (60-115)
[2025-09-14 11:38] VITALS: BP 131/61; PULSE 88; RESP 18; TEMP 36.4; O2SAT 96
--- NOTE | 2025-09-14 12:15 | PM.DS ---
DS: Providers Provider Date of Service: 09/14/25 Date of admission: 09/11/25 15:34 Date of discharge: 09/14/25 Primary care physician: Unknown Physician DS: Diagnosis Discharge Diagnosis (1) Diabetic gastroparesis: Status: Acute (2) Hypertension: Status: Acute DS: Summary Hospital Course Hospital Course: 64 year old male who presents to the ED with nausea and vomiting. He reports 3 days of nausea and vomiting. He is unable to take PO because every time he attempts it he vomits. He denies fever or chills, no diarrhea. He has associated epigastric abdominal pain. Patient has multiple similar admissions for the same. In the emergency department he was initially hypertensive, tachycardic. He has been unable to take his medication for the past 3 days. He received 2 doses of IV Valium, IV Reglan and a dose of erythromycin. He continues to report nausea and vomiting. Lab work was significant for leukocytosis of 13.1, bicarb of 17 no anion gap. Lactic acid was 4.0. Due to persistent symptoms patient will be admitted to the hospital for further management Hospital Course Patient admitted to telemetry where monitor failed to demonstrate any acute dysrhythmias. Initially with some hypertensive urgency likely related to abdominal pain. Long discussion with the patient that this cycle of presenting and getting Dilaudid for 3-4 days and then discharge has been going on for months. He needs to follow up with his PCP as this is not appropriate. He understands and will make the appropriate changes. He was given IV Dilaudid q.6 hours times 48 hours and now he is ready for discharge. He will be sent home with a script of [place] can utilize his home oxycodone Time Attestation Discharge Coordination Time (in mins): 35 Quality: Safe Use of Opioids Does Pt have an Active Cancer Diagnosis on the Problem List?: No Quality: Stroke Does the patient have a stroke diagnosis?: No Physical Exam Vital Signs: Vital Signs: Last Vital Signs Temp 97.6 F 09/14/25 11:38 Pulse 88 09/14/25 11:38 Resp 18 09/14/25 11:38 BP 131/61 09/14/25 11:38 Pulse Ox 96 09/14/25 11:38 O2 Del Method Room Air 09/14/25 11:38 BMI result Body Mass Index 33.6 Const: Other: Awake alert no acute distress Resp: Other: Clear to auscultation bilaterally no rales rhonchi or wheezes Cardio: Other: No S4; positive S1-S2; no S3 murmurs rubs or gallops GI: Other: Soft nontender nondistended normoactive bowel sounds Extrem: Other: No edema bilaterally DS: Data Data Completed and Pending Completed studies during hospitalization [Text1]: Procedures Detachment at Left 1st Toe, Complete, Open Approach (01/03/22) Drainage of Pelvic Region Subcutaneous Tissue and Fascia, Open Approach (04/30/23) Fluoroscopy of Left Lower Extremity Arteries using High Osmolar Contrast (08/04/22) Fluoroscopy of Right Subclavian Vein using Low Osmolar Contrast, Guidance (08/04/22) Insertion of Infusion Device into Right Subclavian Vein, Percutaneous Approach (08/04/22) Insertion of Infusion Device into Superior Vena Cava, Percutaneous Approach (01/20/22) Insertion of Infusion Device into Upper Vein, Percutaneous Approach (08/28/25) Inspection of Upper Intestinal Tract, Via Natural or Artificial Opening Endoscopic (08/14/25) Ultrasonography of Superior Vena Cava, Guidance (01/03/22) Labs on day of discharge: Laboratory Results - last 24 hr 09/13/25 09/13/25 09/14/25 16:52 20:02 03:42 POC Glucose 159 H 125 H 123 H 09/14/25 09/14/25 07:29 11:32 POC Glucose 136 H 164 H Discharge Plan Discharge Anticipated Discharge Date/Time: 09/14/25 12:10 Patient Disposition: Home, Self-Care Discharge Diagnosis: Diabetic gastroparesis Referrals: Physician,Unknown J [Primary Care Provider, Medical] - 1 Week Discharge Medications: New ondansetron HCl 8 mg tablet 8 mg PO Q8H PRN (Reason: nausea and vomiting) Qty: 30 0RF Continued (DME) walker Misc See Rx Instructions .Route Qty: 1 0RF Rx Instructions: As directed (DME) Aircast off loading boot Kit See Rx Instructions .Route Qty: 1 0RF Rx Instructions: As directed (DME) elastic bandage 6 X 1.8 -yard bandage See Rx Instructions .Route Qty: 6 0RF Rx Instructions: As directed (DME) gauze bandage [Band-Aid Gauze Pads] 4 X 4 bandage See Rx Instructions .Route Qty: 25 3RF Rx Instructions: As directed (DME) sterile gauze 4x4 See Rx Instructions .Route .MEDSUPPLY Qty: 40 3RF Rx Instructions: Apply to left foot wound every other day (DME) calcium alginate ag 4x4 pad See Rx Instructions .Route .MEDSUPPLY Qty: 5 2RF Rx Instructions: Apply to wound beds every other day insulin glargine [Lantus U-100 Insulin] 100 unit/mL solution 10 unit subcut BEDTIME losartan 25 mg tablet 25 mg PO DAILY gabapentin 300 mg capsule 300 mg PO TID loratadine 10 mg tablet 10 mg PO DAILY ezetimibe 10 mg tablet 10 mg PO BEDTIME rosuvastatin 40 mg tablet 40 mg PO BEDTIME meclizine 25 mg tablet 25 mg PO TID PRN (Reason: Dizziness Or Vertigo) (DME) walker Misc See Rx Instructions .Route Qty: 1 0RF Rx Instructions: As directed aspirin 81 mg tablet,delayed release (DR/EC) 81 mg PO DAILY furosemide 20 mg tablet 20 mg PO DAILY metoprolol succinate 25 mg tablet extended release 24 hr 25 mg PO DAILY insulin lispro 100 unit/mL solution See Protocol subcut QIDACHS Protocol: Insulin Correction Scale Less than or equal to 110 ---- Give (units): 0 111 to 150 Give (units): 0 151 to 200 Give (units): 2 201 to 250 Give (units): 4 251 to 300 Give (units): 6 301 to 350 Give (units): 8 Greater than 350 Give (units): 10 Call MD if Blood Glucose > : 350 Xarelto 20 mg tablet 20 mg PO DAILY@1700 insulin glargine [Lantus U-100 Insulin] 100 unit/mL solution 8 unit SUBCUT DAILY oxycodone 10 mg tablet 10 mg PO Q4H PRN (Reason: Pain) Qty: 10 0RF Gvoke HypoPen 2-Pack 1 mg/0.2 mL auto-injector 1 mg SUBCUT ONCE PRN (Reason: Hypoglycemia) ondansetron 4 mg tablet,disintegrating 4 mg PO Q8H PRN (Reason: Nausea And Vomiting) venlafaxine 100 mg tablet 100 mg PO BID metoclopramide HCl [Reglan] 10 mg tablet 10 mg PO Q8H PRN (Reason: nausea and vomiting) Qty: 90 0RF omeprazole 20 mg capsule,delayed release(DR/EC) 20 mg PO DAILY@0630 nystatin [Nystop] 100,000 unit/gram powder 1 appl topical TID PRN (Reason: apply to groin) Discharge Orders: Discharge Order (Routine); Ordered 09/14/25 Ordered By: Darek Haro Diet: Advance to usual diet Activity on Discharge: As tolerated Stand Alone Forms: Patient Portal Discharge page Print Language: [place] Care Plan Goals: Restart all meds as taken prior to the hospital Health Concerns: Utilize Zofran as needed for nausea Plan of Treatment: Follow up with PCP next available Assessment: See discharge summary
== END 2025-09-14 12:52 | disposition home or self-care (01) ==
LOC: HO.ED 13:08 → HO.EDOVER 15:45 → HO.IMC 21:07
PROVIDERS: Admitting Provider Physician Assistant Medical; Emergency Provider Emergency Medicine; Visit Provider Hospitalist
DX: E11.43 Type 2 diabetes mellitus with diabetic autonomic (poly)neuropathy (principal); K31.84 Gastroparesis; I10 Essential (primary) hypertension; I16.0 Hypertensive urgency; R10.9 Unspecified abdominal pain; I48.0 Paroxysmal atrial fibrillation; I25.10 Atherosclerotic heart disease of native coronary artery without angina pectoris; E87.22 Chronic metabolic acidosis; R10.13 Epigastric pain; R11.2 Nausea with vomiting, unspecified; D72.829 Elevated white blood cell count, unspecified; R00.0 Tachycardia, unspecified; Z03.818 Encounter for observation for suspected exposure to other biological agents ruled out; Z79.01 Long term (current) use of anticoagulants
CPT/HCPCS: 36415; 74018; 80048; 80053; 80307; 81001; 82010; 82947; 83605; 83690; 83735; 85025; 85027; 85610; 87502; 87635; 93005; 96361; 96365; 96366; 96375; 96376; 99222; 99285; J0616; J1171; J1308; J1364; J2405; J2470; J2765; J3360; J7120

== ENCOUNTER → 2025-09-11 12:55 | Outpatient (BNV) | payer OTHER, SELFPAY | PROVIDERS: Admitting Provider Physician Assistant Medical; Emergency Provider Emergency Medicine; Visit Provider Internal Medicine | DX: R00.0 Tachycardia, unspecified (principal) | CPT/HCPCS: 93010 ==

== ENCOUNTER → 2025-09-11 13:40 | Outpatient (BNV) | payer OTHER, SELFPAY | PROVIDERS: Emergency Provider Emergency Medicine; Visit Provider Radiology Diagnostic Radiology | DX: R10.9 Unspecified abdominal pain (principal) | CPT/HCPCS: 74018 ==

== ENCOUNTER → 2025-09-11 15:34 | Outpatient (BNV) | payer OTHER, SELFPAY | PROVIDERS: Admitting Provider Physician Assistant Medical; Emergency Provider Emergency Medicine; Visit Provider Physician Assistant Medical | DX: E11.43 Type 2 diabetes mellitus with diabetic autonomic (poly)neuropathy (principal); K31.84 Gastroparesis; I10 Essential (primary) hypertension | CPT/HCPCS: 99223; 99233 ==